=== PATIENT | female | born 1970 | race Caucasian/White ===

== ENCOUNTER 2017-12-04 15:49 | Outpatient (CLI) | payer BC, SELFPAY ==
[2017-12-04 17:37] LABS: TSH (W/Ref FT4) 0.71 uIU/mL (0.358-3.74)
== END 2017-12-04 16:09 ==
PROVIDERS: PCP Emergency Medicine; Visit Provider Nurse Practitioner Family
DX: E03.9 Hypothyroidism, unspecified (principal)
CPT/HCPCS: 36415; 84443

== ENCOUNTER 2018-03-04 08:48 | Outpatient (CLI) | payer BC, SELFPAY ==
[2018-03-04 10:32] LABS: TSH 1.09 uIU/mL (0.358-3.74)
== END 2018-03-04 09:08 ==
PROVIDERS: PCP Emergency Medicine; Visit Provider Emergency Medicine
DX: E03.9 Hypothyroidism, unspecified (principal)
CPT/HCPCS: 36415; 84443

== ENCOUNTER 2018-05-01 07:29 | Emergency (ER) | payer BC, SELFPAY ==
[2018-05-01] VITALS (39 sets, daily range): BP systolic 86–123; BP diastolic 61–81; PULSE 78–94; RESP 9–33; TEMP 37.5; O2SAT 94–100
--- NOTE | 2018-05-01 08:17 | ED.GENADUL_ITS ---
Discharge Plan Disposition Patient Disposition: HOME Condition: Improving Discharge Details Chief Complaint: Chest Pain Clinical Impression: Dehydration, Bronchospasm Primary Care Provider: Marck Brody ED Provider: Toño Lockwood Home Meds and New Rx's Prescriptions: No Action azithromycin [Zithromax Z-Josep] 250 mg tablet See Rx Instructions PO .COMPLEX Qty: 6 RF: 0 albuterol sulfate 90 mcg/actuation HFA aerosol inhaler 2 puff IH Q4H PRN (Reason: shortness of breath) Qty: 18 RF: 8 calcium-vitamin D3-vitamin K 1 EACH tablet,chewable 2 ea PO DAILY RF: 0 chlorpheniramine maleate 4 MG tablet 4 mg PO PRNRF: 0 levothyroxine 100 mcg tablet 100 mcg PO DAILY Qty: 90 RF: 4 cevimeline [Evoxac] 30 MG capsule 30 mg PO TID RF: 0 Discharge Instructions Instructions: Dehydration (ED) Additional Instructions: 1. Drink plenty of fluids. 2. Continue all medications as prescribed. 3. Acetaminophen 1000mg every 4 hours (up to 5 time a day) and/or ibuprofen 6 00mg every 6 hours as needed for fever or pain. 4. Decadron as prescribed once a day starting tomorrow morning. 5. Albuterol 2-4 puffs every 4 hours as needed for wheezing/difficulty breathing. Return to the Emergency Department (ED) if your condition worsens, does not improve as expected, or for ANY other concerns. Specifically, return if you have new or uncontrolled pain, worsening fever, difficulty breathing, vomiting, or are unable to drink fluids. Referrals: Marck Brody, [Primary Care Provider] - Medical Decision Making <Toño Lockwood MD - Last Filed: 05/01/18 10:38> 47-year-old with a history of tongue cancer and hypothyroid presents with profound weakness, chest tightness, and mild dyspnea associate with a recent upper respiratory infection. Symptoms began approximately 1 week ago and had improved after starting azithromycin 5 days ago. However, this morning felt bilateral leg weakness, generally lightheaded, and the chest tightness/dyspnea which was refractory to 2 puffs of albuterol x2. Of hypotension (80s/50s) dry mucosa and upper airway stridor/hoarseness on evaluation. Otherwise nonfocal exam. EKG nondiagnostic. Bedside cardiac/thoracic ultrasound negative for evidence of pericardial effusion/cardiac function or an acute pulmonary process. Labs essentially normal except for an elevated TSH with normal free T4. Clinically improved after receiving IV crystalloid, IV Decadron, 1 g of IV magnesium, and an albuterol/ipratropium nebulizer. Reviewed case with her PCP, Dr. Brody, who recommended no change in her current thyroid replacement. Discharged home with Decadron and a plan for aggressive oral hydration, albuterol as needed, and 2 days of Decadron. She will follow-up with her PCP or return here as needed for worsening symptoms. Pt evaluated immediately prior to discharge with improved symptoms, normal vital signs, and tolerating PO. The patient feels appropriate for discharge home. Discussed clinical/diagnostic findings. Discharged with a clear plan for outpatient follow up. Given usual and customary return instructions prior to discharge. Imaging Data Radiologic Study: Attestation: I personally reviewed and interpreted this imaging study as follows: Imaging: Ultrasound (Limited bedside thoracic/cardiac ultrasound) My impression: Limited cardiac/bedside Ultrasound. Findings include parasternal long axis and apical four-chamber views with no pericardial effusion, RV strain, or decreased LVEF. Posterior thoracic views with no evidence of focal consolidation, interstitial syndrome, or pleural effusion. images obtained, reviewed, and interpreted independently by myself. Images saved on ultrasound system for review. Lab Data Lab results reviewed: Yes I reviewed the patient's lab results. Lab results narrative: Normal basic metabolic panel. TSH 5.9. Free T4 1.18 ECG Data Attestation: I personally reviewed and interpreted this ECG (s) as follows: Prior ECG tracings: available for review Interpretation: NSR 90 bpm. Normal axis and intervals. No acute ST changes. Interpreted independently previously by myself. 47-year-old woman with a history of hypothyroidism and tongue cancer. She is status post neck, maxillofacial, and tongue surgery. Presents with chest tightness and generalized weakness. Describes having a viral syndrome 1 week ago and follow with her PCP last Sunday. She reports being diagnosed with dehydration. Although her lung exam was reportedly normal, she was started on azithromycin. She describes mild subjective improvement through this weekend. However, yesterday evening and this morning she felt significantly weaker and this morning felt unable to stand because of weakness in her legs. She also has noted increased chest tightness and dyspnea. She used 2 puffs of albuterol at 0400 and then prior to arrival with minimal improvement in her subjective. Denies subjective fever/chills, global exanthem, lower extremity edema. She has had subjective palpitations although she notes that her resting heart rate is typically in the 80s-90s. She denies abdominal pain, change in bowel habits melena/hematochezia. She had no subjective urinary symptoms. HPI <Toño Lockwood MD - Last Filed: 05/01/18 10:38> General Date/Time Provider Initiated Documentation: 05/01/18 08:17 . Related Data Home Medications Medication Instructions Recorded Confirmed cevimeline [Evoxac] 30 mg PO TID 02/01/13 04/24/18 calcium-vitamin D3-vitamin K 2 ea PO DAILY tab.chew 04/14/14 04/24/18 chlorpheniramine maleate 4 mg PO PRN 09/24/17 04/24/18 levothyroxine 100 mcg tablet 100 mcg PO DAILY #90 tab-cap 03/05/18 04/24/18 albuterol sulfate HFA 90 2 puff IH Q4H PRN #18 gm 04/24/18 04/24/18 mcg/actuation aerosol inhaler azithromycin 250 mg tablet See Rx Instructions PO .COMPLEX #6 04/24/18 04/24/18 tab Previous Rx's Medication Instructions Recorded levothyroxine 100 mcg tablet 100 mcg PO DAILY #90 tab-cap 03/05/18 albuterol sulfate HFA 90 2 puff IH Q4H PRN #18 gm 04/24/18 mcg/actuation aerosol inhaler azithromycin 250 mg tablet See Rx Instructions PO .COMPLEX #6 04/24/18 tab Allergies Allergy/AdvReac Type Severity Reaction Status Date / Time amoxicillin Allergy Intermediate itchy Verified 04/24/18 09:06 Penicillins Allergy Intermediate itchy Verified 04/24/18 09:06 General Stated Complaint: Chest Pain NORA: 3 47-year-old woman with a history of hypothyroidism and tongue cancer. She is status post neck, maxillofacial, and tongue surgery. Presents with chest tightness and generalized weakness. Describes having a viral syndrome 1 week ago and follow with her PCP last Sunday. She reports being diagnosed with dehydration. Although her lung exam was reportedly normal, she was started on azithromycin. She describes mild subjective improvement through this weekend. However, yesterday evening and this morning she felt significantly weaker and this morning felt unable to stand because of weakness in her legs. She also has noted increased chest tightness and dyspnea. She used 2 puffs of albuterol at 0400 and then prior to arrival with minimal improvement in her subjective. Denies subjective fever/chills, global exanthem, lower extremity edema. She has had subjective palpitations although she notes that her resting heart rate is typically in the 80s-90s. She denies abdominal pain, change in bowel habits melena/hematochezia. She had no subjective urinary symptoms. Review of Systems <Toño Lockwood MD - Last Filed: 05/01/18 10:38> Review of Systems All systems are reviewed and are unremarkable except as noted in HPI and below: CONSTITUTIONAL: no fevers/chills or change in appetite; new weakness/difficulty standing EYES: no change in vision HEENT: chronic difficulty swallowing; no neck pain CARDIOVASCULAR: Mild chest tightness and palpitations, no leg swelling or diaphoresis RESPIRATORY: no cough, mild dyspnea and stridor GASTROINTESTINAL: no abdominal pain, melena, nausea/emesis GENITOURINARY: no dysuria, flank pain, MUSCULOSKELETAL: no pack pain, myalgias, arthralgias INTEGUMENTARY: no rash, no wounds NEUROLOGIC: no headache, focal weakness, difficulty with speech, numbness PSYCHIATRIC: no confusion, no anciety HEME: no easy bruising or bleeding ALLERGIC: no urticaria PFSH <Toño Lockwood MD - Last Filed: 05/01/18 10:38> Surgical History DISSECTION, NECK MAXILLOFACIAL TONGUE RESECTION Family History Mother Essential hypertension Hyperlipidemia Father No problems noted. 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 GENERAL: alert, active, no acute distress, well -hydrated, well-nourished HEENT: atraumatic/normocephalic, PERRLA, EOMI, conjunctiva clear, external ea rs/canals normal, nasal mucosa normal NECK: Chronic changes associated with previous neck resection supple, full range of motion CARDIOVASCULAR: RRR, no murmurs, nl pulses, no edema PULMONARY: nl effort, no audible wheezing, mild stridor, no focal deficit. no chest wall tenderness ABDOMEN: soft, non-tender, non-distended, no mass, no organomegaly EXTREMITY: normal muscle tone, all joints with FROM, no deformity or tenderness NUERO: gross motor exam normal, normal stance and gait, PSYCH: alert and oriented, SKIN: no exanthem Course <Toño Lockwood MD - Last Filed: 05/01/18 10:38> Vital Signs Temperature 99.5 F 05/01/18 07:35 Pulse 94 H 05/01/18 07:35 Respiratory Rate 18 05/01/18 07:35 Blood Pressure 115/81 05/01/18 07:35 Pulse Oximetry 94 L 05/01/18 07:35 Temperature 99.5 F 05/01/18 07:35 Temperature Source Temporal Artery Scan 05/01/18 07:35 Pulse 94 H 05/01/18 07:35 Respiratory Rate 18 05/01/18 08:10 Respiratory Effort 05/01/18 08:10 Respiratory Depth Normal 05/01/18 08:10 Blood Pressure 115/81 05/01/18 07:35 Blood Pressure Position Sitting 05/01/18 07:35 Pulse Oximetry 94 L 05/01/18 07:35 Oxygen Delivery Method Room Air 05/01/18 07:35 Oxygen Flow Rate 0 05/01/18 07:35
[2018-05-01] MEDS: Normal Saline 1,000 ML 1000 ML IV (08:19)
[2018-05-01] MEDS: Albuterol/Ipratropium 3 ML UPD VIAL UPD (08:47)
[2018-05-01] MEDS: Normal Saline Flush 10 ML SYR IVP (08:48)
[2018-05-01 09:14] LABS: ALT 15 U/L (12-78); AST 17 U/L (15-37); Albumin 3.8 g/dL (3.4-5.0); Alkaline Phosphatase 61 U/L (46-116); Anion Gap 10.4 mmol/L (3-11); BUN 5 mg/dL (7-18); Bilirubin, Total 0.5 mg/dL (0.2-1.0); CO2 29.6 mmol/L (21.0-32.0); CREATININE 0.83 mg/dL (0.55-1.02); Calcium 9.8 mg/dL (8.5-10.1); Chloride 102 mmol/L (98-107); Glucose 93 mg/dL (70-100); Potassium 3.5 mmol/L (3.5-5.1); Sodium 142 mmol/L (136-145); TSH (W/Ref FT4) 5.97 uIU/mL (0.358-3.74); Total Protein 8.7 g/dL (6.4-8.2)
[2018-05-01] MEDS: MAGNESIUM SULFATE 1 GM/100 ML BAG (09:19)
[2018-05-01 09:30] LABS: FREE T4 1.18 ng/dL (0.76-1.46)
[2018-05-01] MEDS: Dexamethasone 10 MG/ML VIAL IVP (09:32)
[2018-05-01] MEDS: Dexamethasone 10 MG/ML VIAL 16 MG IVP (11:14)
[2018-05-01] MEDS: Albuterol HFA 8 GM 60 PUFF INH IH (11:14)
== END 2018-05-01 11:33 | disposition home or self-care (01) ==
PROVIDERS: Emergency Provider Emergency Medicine; PCP Emergency Medicine
DX: E86.0 Dehydration (principal); J98.01 Acute bronchospasm
CPT/HCPCS: 80053; 93005; 94640; 96361; 96374; 96376; 99285; 84439; 84443; 93010; J1100; J3475; J7620

== ENCOUNTER 2019-02-14 07:35 | Outpatient (CLI) | payer BC, SELFPAY ==
[2019-02-14 12:20] LABS: ALT 15 U/L (14-59); AST 18 U/L (15-37); Albumin 3.7 g/dL (3.4-5.0); Alkaline Phosphatase 53 U/L (46-116); Anion Gap 9.7 mmol/L (3-11); BUN 5 mg/dL (7-18); Bilirubin, Total 0.5 mg/dL (0.2-1.0); CO2 24.3 mmol/L (21.0-32.0); CREATININE 0.86 mg/dL (0.55-1.02); Calcium 8.9 mg/dL (8.5-10.1); Chloride 104 mmol/L (98-107); FREE T4 1.25 ng/dL (0.76-1.46); Glucose 94 mg/dL (74-106); Hemoglobin A1C 5.5 % (4.5-6.2); Sodium 138 mmol/L (136-145); TSH 0.43 uIU/mL (0.36-3.74); Total Protein 6.9 g/dL (6.4-8.2)
[2019-02-14 12:33] LABS: Calculated LDL 131 mg/dL; Cholesterol 221 mg/dL (<200); HDL Cholesterol 75 mg/dL (40-60); Triglyceride 79 mg/dL (<150)
== END 2019-02-14 07:55 ==
PROVIDERS: PCP Emergency Medicine; Visit Provider Nurse Practitioner Family
DX: E03.9 Hypothyroidism, unspecified (principal)
CPT/HCPCS: 36415; 80053; 80061; 83036; 84439; 84443

== ENCOUNTER 2019-05-13 01:58 | Outpatient (CLI) | payer BC, SELFPAY ==
[2019-05-13] MEDS: Barium Sulfate 60% W/V 355 ML BTL PO (09:47)
--- NOTE | 2019-05-13 09:47 | DI.RAD_ITS ---
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 COMPARISON: CHEST 2 VIEWS PA,LAT from 06/10/2013 FINDINGS: Preliminary films of the neck and chest show post surgical changes of prevertebral cervical soft tiss ues with mild smooth increase in pharyngo vertebral distance, multiple vascular clips are present. T he patient has reportedly had prior surgical procedure and radiation therapy for oral carcinoma . Barium was ingested and shows decreased motility of the mami pharynx with no gross obstruction. No ir regular mucosal lesion seen in the oropharynx or esophagus. No evidence of esophageal obstruction. Tiny quantity of barium was aspirated into the trachea, clearly visible only on one view. Fluoro time 12 sec IMPRESSION: Decreased motility of the oropharynx/larynx on deglutition. No gross structural lesion or mucosal le mae identified. Unremarkable appearance of the esophagus. Minimal tracheal aspiration noted.
== END 2019-05-13 02:18 ==
PROVIDERS: PCP Emergency Medicine; Visit Provider Otolaryngology
DX: R13.12 Dysphagia, oropharyngeal phase (principal); Z92.3 Personal history of irradiation; Z85.810 Personal history of malignant neoplasm of tongue
CPT/HCPCS: 74221

== ENCOUNTER 2019-10-02 02:30 | Outpatient (CLI) | payer BC, SELFPAY ==
[2019-10-02 15:24] LABS: TSH 0.04 uIU/mL (0.36-3.74)
== END 2019-10-02 02:50 ==
PROVIDERS: PCP Emergency Medicine; Visit Provider Emergency Medicine
DX: E03.9 Hypothyroidism, unspecified (principal)
CPT/HCPCS: 36415; 84443

== ENCOUNTER 2019-10-03 03:52 | Outpatient (CLI) | payer BC, SELFPAY ==
--- NOTE | 2019-10-03 08:00 | DI.CT_ITS ---
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 The patient has reportedly had radiation therapy oral cancer. Smooth soft tissue deformity of the oropharynx noted. No gross abscess in the oral or laryngeal ada on. No perimandibular abscess. There is significant bone loss with a patchy irregular pattern extending through the left mandibular body across the midline into the anterior aspect of the right mandibular body. The findings are nons pecific and may represent post radiation necrosis. Osteomyelitis cannot be excluded on the basis of this examination. However the lack of obvious surrounding soft tissue edema or enhancement would arg ue against an infectious process. The maxilla appears essentially intact. Note is made of chronic degenerative changes of the right te mporomandibular joint. No gross cervical adenopathy seen. Visualized brain is unremarkable. Orbital and temporal bone structures appear intact. 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
[2019-10-03] MEDS: Omnipaque 350 MG/ML 100 ML BTL IJ (08:32)
== END 2019-10-03 04:12 ==
PROVIDERS: PCP Emergency Medicine; Visit Provider Otolaryngology
DX: M27.2 Inflammatory conditions of jaws (principal); Z92.3 Personal history of irradiation
CPT/HCPCS: 70488; J3490

== ENCOUNTER 2019-10-24 03:43 | Outpatient (CLI) | payer BC, SELFPAY ==
--- NOTE | 2019-10-24 | DI.US_ITS ---
EXAM: US CAROTID CLINICAL HISTORY: CAROTID ARTERY CALCIFICATION, I65.29,F/U FINDINGS ON CT TECHNIQUE: Ultrasound performed using standard protocol. COMPARISON: No exams were available for comparison FINDINGS: Bilateral duplex carotid ultrasound was performed. There is bilateral antegrade vertebral flow. Tariq w velocities in the common, internal, and external carotid arteries are within normal limits. Minima l visible atheromatous plaque is present at the carotid bifurcations bilaterally. IMPRESSION: No evidence of a hemodynamically significant carotid stenosis. DATA REPOSITORY:
== END 2019-10-24 04:03 ==
PROVIDERS: PCP Emergency Medicine; Visit Provider Dentist
DX: I65.23 Occlusion and stenosis of bilateral carotid arteries
CPT/HCPCS: 93880

== ENCOUNTER 2019-11-07 04:27 | Outpatient (CLI) | payer BC, SELFPAY ==
--- NOTE | 2019-11-07 07:15 | DI.MAMMO_ITS ---
EXAM: MG MAMMO SCREENING CLINICAL HISTORY: screening,Z12.39 TECHNIQUE: Mammograms were interpreted according to the usual protocol including computer analysis w [employer] CAD system, tomosynthesis and C-view imaging. COMPARISON: FINDINGS: The breasts are heterogeneously dense. No mass or clumped microcalcification is identified either br east. The current examination is compared with previous examinations including April 2018 and the re has been no gross interval change in appearance in comparison with the previous studies. IMPRESSION: No specific evidence of malignancy at this time. Routine screening examinations are suggested at ye avelina intervals due to the family history of breast carcinoma. BI-RADS Category 1 - Negative Breast Density - Category C - Heterogeneously dense
== END 2019-11-07 04:47 ==
PROVIDERS: PCP Emergency Medicine; Visit Provider Emergency Medicine
DX: Z12.31 Encounter for screening mammogram for malignant neoplasm of breast (principal); R92.2 Inconclusive mammogram
CPT/HCPCS: 77063; 77067

== ENCOUNTER 2019-12-09 01:48 | Outpatient (CLI) | payer BC, SELFPAY ==
[2019-12-09 16:55] LABS: TSH 0.29 uIU/mL (0.36-3.74)
== END 2019-12-09 02:08 ==
PROVIDERS: PCP Emergency Medicine; Visit Provider Emergency Medicine
DX: E03.9 Hypothyroidism, unspecified (principal)
CPT/HCPCS: 36415; 84443

== ENCOUNTER 2019-12-26 10:54 | Outpatient (REF) | payer BC, SELFPAY ==
--- NOTE | 2019-12-26 08:50 | PAPFT_PTH ---
PATIENT: Theresa Hollis LOC: [facility] U#:[id number] AGE/SX: 49/F ROOM: RE12/26/[address]: Marck Brody DO : 1970 BED: DIS: 12/26/2019 SPEC #: [id number] RECD: 12/26/19 13:04 STATUS: ELAINE REHernan #: [id number] SUSAN: 12/26/19 08:[address]: Marck Brody DEPT: [facility] Cytology RECD BY: Joyce Streeter Tissues: 1 - CX/ENDOCX FOR PAP SMEARS Procedures: PAP THIN PREP/UVM Screening HPV DNA PROBE Comments: [id number]
== END 2019-12-26 11:14 ==
LOC: LBN 10:54
PROVIDERS: PCP Emergency Medicine; Visit Provider Emergency Medicine
DX: Z12.4 Encounter for screening for malignant neoplasm of cervix (principal); Z11.51 Encounter for screening for human papillomavirus (HPV)
CPT/HCPCS: 88142; 87624

== ENCOUNTER 2020-01-01 22:06 | Outpatient (REF) | payer BC, SELFPAY | END 2020-01-01 22:26 | LOC: LBN 22:06 | PROVIDERS: PCP Emergency Medicine; Visit Provider Physician Assistant | DX: L02.01 Cutaneous abscess of face (principal); K13.0 Diseases of lips | CPT/HCPCS: 87070; 87205 ==

== ENCOUNTER 2020-01-20 01:31 | Outpatient (CLI) | payer BC, SELFPAY ==
--- NOTE | 2020-01-20 | DI.CT_ITS ---
EXAM: CT FACIAL WO and 3D recon. CLINICAL HISTORY: H/O OSTEORADIONECROSIS,? FX. TECHNIQUE: Imaging Protocol: Axial computed tomography images with coronal and sagittal reformatted images were created and reviewed COMPARISON: CT CT FACIAL WO/W from 10/03/[address] CT [address] RECON ON CT WORKSTATION from 01/20/2020 FINDINGS: CT Face: Facial Bones: Since the prior examination, there is a lucency in the bone anterior to the molars fol lowing tooth removal. There has been removal of the right bicuspids. Patient has removed her her de ntures. There is again seen significant bone loss in the mandible which appears stable. No acute fr acture or dislocation. No new areas of low lysis or sclerosis. Sinuses and Mastoids: Unremarkable. Globes, extraocular muscles, optic nerves and retrobulbar fat: Normal. Upper aerodigestive tract: Normal. Mandible and bilateral temporomandibular joints: Please see the above discussion. Soft tissues: No focal fluid collection is seen to suggest an abscess. IMPRESSION: Overall no significant change in appearance of the mandible compared to the prior examination. Stabl e bone loss is seen in the mandible. Interval removal of right bicuspids. RADIATION DOSE DELIVERED: 319.18mGy.cm Total DLP 319.18mGy.cm Total DLP DATA REPOSITORY: All CT scans at this facility are submitted to the National Radiology Data Registry (NRDR) Dose Index Registry (DIR) with the [employer] (ACR). RADIATION OPTIMIZATION: All CT scans at this facility use at least one of these dose optimization te chniques: automated exposure control; mA and/or kV adjustment per patient size (includes targeted exa ms where dose is matched to clinical indication); or iterative reconstruction.
== END 2020-01-20 01:51 ==
PROVIDERS: PCP Emergency Medicine; Visit Provider Dentist
DX: M87.9 Osteonecrosis, unspecified (principal)
CPT/HCPCS: 76376; 70486

== ENCOUNTER 2020-02-04 01:58 | Outpatient (CLI) | payer BC, SELFPAY ==
[2020-02-04 17:35] LABS: TSH 7.75 uIU/mL (0.36-3.74)
== END 2020-02-04 02:18 ==
PROVIDERS: PCP Emergency Medicine; Visit Provider Emergency Medicine
DX: E03.9 Hypothyroidism, unspecified (principal)
CPT/HCPCS: 36415; 84443

== ENCOUNTER 2020-03-05 03:49 | Outpatient (CLI) | payer BC, SELFPAY ==
[2020-03-05 16:56] LABS: TSH 0.51 uIU/mL (0.36-3.74)
== END 2020-03-05 04:09 ==
PROVIDERS: PCP Emergency Medicine; Visit Provider Emergency Medicine
DX: E03.9 Hypothyroidism, unspecified (principal)
CPT/HCPCS: 36415; 84443

== ENCOUNTER 2020-04-21 21:05 | Outpatient (REF) | payer BC, SELFPAY | END 2020-04-21 21:06 | disposition home or self-care (01) | LOC: LBN 21:05 | PROVIDERS: PCP Emergency Medicine; Visit Provider Physician Assistant | DX: R07.0 Pain in throat (principal) | CPT/HCPCS: 87070 ==

== ENCOUNTER 2020-04-23 17:01 | Outpatient (REF) | payer BC, SELFPAY ==
[2020-04-26 16:24] LABS: COVID-19 RT-PCR UVMMC Result Negative (Negative)
== END 2020-04-23 17:02 | disposition home or self-care (01) ==
LOC: LBN 17:01
PROVIDERS: PCP Emergency Medicine; Visit Provider Nurse Practitioner Adult Health
DX: J02.9 Acute pharyngitis, unspecified (principal)
CPT/HCPCS: U0003

== ENCOUNTER 2020-05-26 04:02 | Outpatient (CLI) | payer BC, SELFPAY ==
[2020-05-26 17:43] LABS: TSH 1.93 uIU/mL (0.36-3.74)
== END 2020-05-26 04:03 | disposition home or self-care (01) ==
LOC: LBO 04:02
PROVIDERS: PCP Emergency Medicine; Visit Provider Emergency Medicine
DX: E03.9 Hypothyroidism, unspecified (principal)
CPT/HCPCS: 36415; 84443

== ENCOUNTER 2020-07-22 03:35 | Outpatient (CLI) | payer BC, SELFPAY | END 2020-07-22 03:36 | disposition home or self-care (01) | LOC: LBO 03:35 | PROVIDERS: PCP Emergency Medicine; Visit Provider Emergency Medicine | DX: E03.9 Hypothyroidism, unspecified (principal) | CPT/HCPCS: 36415; 84443 ==

== ENCOUNTER 2020-09-13 03:58 | Outpatient (CLI) | payer BC, SELFPAY ==
[2020-09-13 10:31] LABS: TSH 0.07 uIU/mL (0.36-3.74)
== END 2020-09-13 03:59 | disposition home or self-care (01) ==
LOC: LBO 03:58
PROVIDERS: PCP Emergency Medicine; Visit Provider Emergency Medicine
DX: E03.9 Hypothyroidism, unspecified (principal)
CPT/HCPCS: 36415; 84443

== ENCOUNTER 2020-12-28 03:49 | Outpatient (CLI) | payer BC, SELFPAY ==
[2020-12-28 16:51] LABS: TSH 0.35 uIU/mL (0.36-3.74)
== END 2020-12-28 03:50 | disposition home or self-care (01) ==
LOC: LBO 03:49
PROVIDERS: PCP Emergency Medicine; Visit Provider Internal Medicine Endocrinology, Diabetes & Metabolism
DX: E03.9 Hypothyroidism, unspecified (principal)
CPT/HCPCS: 36415; 84443

== ENCOUNTER 2021-02-23 02:04 | Outpatient (CLI) | payer BC, SELFPAY ==
[2021-02-23 17:34] LABS: TSH 1.92 uIU/mL (0.36-3.74)
== END 2021-02-23 02:05 | disposition home or self-care (01) ==
LOC: LBO 02:04
PROVIDERS: PCP Emergency Medicine; Visit Provider Internal Medicine Endocrinology, Diabetes & Metabolism
DX: E03.9 Hypothyroidism, unspecified (principal)
CPT/HCPCS: 36415; 84443

== ENCOUNTER 2021-03-07 16:56 | Emergency (ER) | payer BC, SELFPAY ==
[2021-03-07 17:00] VITALS: BP 128/83; PULSE 84; RESP 18; TEMP 36.8; O2SAT 98
--- NOTE | 2021-03-07 17:03 | ED.GENADUL_ITS ---
Discharge Plan Disposition Patient Disposition: HOME Condition: Improving Discharge Details Clinical Impression: Food impaction of esophagus Primary Care Provider: Marck Brody ED Provider: Alex Segundo Home Meds and New Rx's Prescriptions: Continued amoxicillin-pot clavulanate [Augmentin] 875-125 mg tablet 1 tab PO BID Qty: 14 RF: 0 levothyroxine [Synthroid] 100 mcg tablet 100 mcg PO DAILY Qty: 90 RF: 3 Hold Instructions: Home Medication placed on hold at Doctor's office Discharge Instructions Additional Instructions: It appears as though you have successively swallowed the food bolus that was stuck in your esophagus. Please watch for new or worsening symptoms and return to the ER for any concerns. Otherwise I recommend reaching out your primary care provider as needed for outpatient follow-up Medical Decision Making 50-year-old female presents with esophageal food bolus. Clinically she appears well, nontoxic, is managing her own secretions without difficulty. No evidence of respiratory compromise. She is otherwise asymptomatic. Plan is to trial EZ granules and reassess Patient was unable to tolerate the EZ granules, reports too much discomfort Obtained IV access, patient given 5 IV Valium and 3 IV glucagon. Will trial of water Upon reevaluation patient reports that she was able to pass the food bolus, is currently asymptomatic and requesting discharge. She is able to speak in full sentences, no evidence of respiratory compromise. Manages her own secretions without difficulty. Standard discharge and return precautions provided This documentation was generated using [employer] dictation system, please disregard any oddities of phrase or misspellings. Medical Records Medical records reviewed: Yes I reviewed the patient's medical records. HPI General Mode of arrival: EMS . Date/Time Provider Initiated Documentation: 03/07/21 17:01 . Limitations to Documentation: no limitations . Information obtained by: patient and EMS . HPI Narrative: This is a 50-year-old female, past medical history of tongue CA resulting in partial tongue and neck resection approximately 14 years ago presenting for a food bolus in her esophagus. She states that just prior to arrival she was eating a biscuit and ham, the food did not pass, causing her to briefly cough and choke. Now she states that she feels specific in the back of her throat and is unable to tolerate drinking any other water. She was asymptomatic until this episode. She states this has happened in the past but never required surgery. She denies any difficulty breathing, speaking other than her baseline partial tongue resection. Related Data Home Medications Medication Instructions Recorded Confirmed levothyroxine 100 mcg tablet 100 mcg PO DAILY #90 tab 02/06/20 03/07/21 amoxicillin 875 mg-potassium 1 tab PO BID #14 tab 07/03/20 03/07/21 clavulanate 125 mg tablet Previous Rx's Medication Instructions Recorded levothyroxine 100 mcg tablet 100 mcg PO DAILY #90 tab 02/06/20 amoxicillin 875 mg-potassium 1 tab PO BID #14 tab 07/03/20 clavulanate 125 mg tablet Allergies Allergy/AdvReac Type Severity Reaction Status Date / Time No Known Allergies Allergy Verified 03/07/21 17:04 General NORA: 3 Review of Systems Constitutional Constitutional: Denies headache(s) ENT Ears, Nose, Mouth, and Throat: Denies headache(s) and Denies neck pain Cardiovascular Cardiovascular: Denies chest pain and Denies dyspnea Respiratory Respiratory: Denies dyspnea Gastrointestinal Gastrointestinal: Denies abdominal pain, Denies nausea and Denies vomiting Musculoskeletal Musculoskeletal: Denies neck pain Neurologic Neurologic: Denies headache(s) PFSH All Active Problems Food impaction of esophagus (Acute) Carpal tunnel syndrome (Acute) Throat discomfort (Acute) Dental abscess (Acute) Neck muscle spasm (Acute) Cheilitis (Acute) Facial abscess (Acute) Hyperlipidemia (Chronic) Hypothyroidism (acquired) (Chronic) History of tongue cancer (Acute) SCC, s/p radiation, chemo, surgery Medical History Squamous cell carcinoma of tongue Surgical History History of radical neck surgery Family History Mother Essential hypertension Hyperlipidemia Father No problems noted. 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 Do you feel safe at home: Yes Do you feel safe in your relationship?: Yes Exam Const General: cooperative, healthy appearing, comfortable and no acute distress Orientation: alert and awake [facility] Head: normal to inspection, normocephalic and atraumatic Face and sinus: normal facial exam Mouth: oral mucosae normal and moist mucous membranes Throat: posterior oropharynx normal and other (Status post partial tongue resection, otherwise unremarkable) Eyes General: appearance normal, both eyes and all related structures Conjunctivae: conjunctivae normal Neck Neck: trachea midline and supple Other: Status post partial neck resection otherwise unremarkable Resp Effort & Inspection: normal respiratory effort and able to speak in complete sentences Auscultation: clear to auscultation bilaterally Other: No stridor Cardio Rate: regular rate Rhythm: regular rhythm GI Palpation: soft and nontender Skin General skin exam: no rashes or lesions noted Neuro General: patient alert, patient awake, moves all extremities and no focal motor deficits Sensory Exam: no sensory deficits noted Psych Appearance: grossly normal Mental Status: mental status grossly normal
[2021-03-07] MEDS: Simethicone/Sod Bicarb/Cit Ac, 4 gram PACKET 1 PACKET PO (17:21)
[2021-03-07] MEDS: Glucagon 1 MG VIAL 3 MG IVP (17:31)
[2021-03-07] MEDS: diazePAM 10 MG/2 ML SYR 5 MG IVP (17:31)
== END 2021-03-07 18:26 | disposition home or self-care (01) ==
PROVIDERS: Emergency Provider Physician Assistant; PCP Emergency Medicine
DX: T18.128A Food in esophagus causing other injury, initial encounter (principal); X58.XXXA Exposure to other specified factors, initial encounter
CPT/HCPCS: 96374; 96375; 99284; 99283; J1610; J3360

== ENCOUNTER 2021-04-27 01:39 | Outpatient (CLI) | payer BC, SELFPAY | END 2021-04-27 01:40 | disposition home or self-care (01) | LOC: LBO 01:40 | PROVIDERS: PCP Family Medicine; Visit Provider Internal Medicine Endocrinology, Diabetes & Metabolism | DX: E03.9 Hypothyroidism, unspecified (principal) | CPT/HCPCS: 36415; 84443 ==

== ENCOUNTER 2021-06-22 02:54 | Outpatient (CLI) | payer BC, SELFPAY ==
[2021-06-22 13:21] LABS: TSH 4.47 uIU/mL (0.36-3.74)
== END 2021-06-22 02:55 | disposition home or self-care (01) ==
LOC: LBO 02:54
PROVIDERS: PCP Family Medicine; Visit Provider Internal Medicine Endocrinology, Diabetes & Metabolism
DX: E03.9 Hypothyroidism, unspecified (principal)
CPT/HCPCS: 36415; 84443

== ENCOUNTER 2021-07-15 00:36 | Outpatient (CLI) | payer BC, SELFPAY ==
[2021-07-15] MEDS: Gadoterate meglumine 20 ML VIAL 8 ML IVP (09:19)
[2021-07-15] MEDS: Normal Saline Flush 10 ML SYR IVP (09:19)
--- NOTE | 2021-07-15 10:05 | DI.MRI_ITS ---
Exam(s) MR PELVIS WO/W EXAM: MR PELVIS WO/W CLINICAL HISTORY: ADNEXAL CYST, N94.9, HX SCC TONGUE, ADNEXAL MASS TECHNIQUE: Multiplanar multisequence MRI of Pelvis was performed. CONTRAST MATERIAL: IV Contrast: 8 mL of Dotarem contrast administered. COMPARISON: CT,PT NM PET CT STANDARD PLUS HEAD AND NECK from 02/07/2021 FINDINGS: The uterus is within normal limits in size. No evidence of fibroids. Endometrial stripe appears nor mal. There is a 2.8 cm cystic area with layering debris seen in the cervical region which could repr esent a large nabothian cyst. No suspicious enhancement. Ovaries are normal in size and appearance. 1.5 centimeter maximal dimension follicle right ovary. Physiologic amount fluid in the cul-de-sac. Bladder unremarkable. Degenerative disc changes lower lumbar spine. SI joints and hip joints unremarkable. IMPRESSION: No evidence of ovarian cyst or mass. Questioned adnexal cyst on prior PET CT corresponds to a cystic area in the cervix, likely a nabothian cyst. DATA REPOSITORY:
== END 2021-07-15 00:56 ==
PROVIDERS: PCP Nurse Practitioner; Visit Provider Obstetrics & Gynecology
DX: N94.89 Other specified conditions associated with female genital organs and menstrual cycle (principal); N88.8 Other specified noninflammatory disorders of cervix uteri; Z85.810 Personal history of malignant neoplasm of tongue
CPT/HCPCS: 72197

== ENCOUNTER 2021-08-05 15:29 | Outpatient (REF) | payer BC, SELFPAY | END 2021-08-05 15:30 | disposition home or self-care (01) | LOC: LBN 15:29 | PROVIDERS: PCP Nurse Practitioner; Visit Provider Physician Assistant | DX: H60.8X2 Other otitis externa, left ear | CPT/HCPCS: 87070; 87075; 87205 ==

== ENCOUNTER 2021-08-25 02:20 | Outpatient (CLI) | payer BC, SELFPAY ==
[2021-08-25 15:35] LABS: TSH 3.14 uIU/mL (0.36-3.74)
== END 2021-08-25 02:21 | disposition home or self-care (01) ==
LOC: LBO 02:20
PROVIDERS: PCP Nurse Practitioner; Visit Provider Internal Medicine Endocrinology, Diabetes & Metabolism
DX: E03.9 Hypothyroidism, unspecified (principal)
CPT/HCPCS: 36415; 84443

== ENCOUNTER 2021-10-13 03:30 | Outpatient (RCR) | payer BC, SELFPAY ==
--- NOTE | 2021-10-13 10:30 | HOLTER_ITS ---
APPROVED REPORT Conclusion This is a 48-hour Holter monitor ordered for an unspecified cardiac arrhythmia Predominant rhythm was sinus with an average heart rate of 74. Minimum was 53, maximum 162 There were very rare isolated atrial and ventricular ectopic beats There was no atrial fibrillation, no supraventricular tachycardia, no high-grade AV block, no pauses greater than 3 seconds There were no apparent patient symptoms
== END 2021-10-16 23:59 | disposition home or self-care (01) ==
LOC: RT 03:30
PROVIDERS: PCP Nurse Practitioner; Visit Provider Nurse Practitioner
DX: I49.9 Cardiac arrhythmia, unspecified (principal)
CPT/HCPCS: 93225; 93226

== ENCOUNTER 2021-10-25 03:25 | Outpatient (CLI) | payer BC, SELFPAY ==
[2021-10-25 08:28] LABS: TSH 2.79 uIU/mL (0.36-3.74)
== END 2021-10-25 03:26 | disposition home or self-care (01) ==
LOC: LBO 03:25
PROVIDERS: PCP Nurse Practitioner; Visit Provider Internal Medicine Endocrinology, Diabetes & Metabolism
DX: E03.9 Hypothyroidism, unspecified (principal)
CPT/HCPCS: 36415; 84443

== ENCOUNTER 2021-12-27 02:55 | Outpatient (CLI) | payer BC, SELFPAY ==
[2021-12-27 15:55] LABS: TSH 0.92 uIU/mL (0.36-3.74)
== END 2021-12-27 02:56 | disposition home or self-care (01) ==
LOC: LBO 02:55
PROVIDERS: PCP Nurse Practitioner; Visit Provider Internal Medicine Endocrinology, Diabetes & Metabolism
DX: E03.9 Hypothyroidism, unspecified (principal)
CPT/HCPCS: 36415; 84443

== ENCOUNTER 2022-02-26 11:14 | Emergency (ER) | payer BC, SELFPAY ==
[2022-02-26] VITALS (8 sets, daily range): BP systolic 113–152; BP diastolic 70–86; PULSE 77–116; RESP 17–19; TEMP 37.4; O2SAT 98
--- NOTE | 2022-02-26 11:00 | RT.EKG_ITS ---
APPROVED REPORT Exam: Resting ECG Reason for Exam: sob Patient Location: E HR:112 bpm ECG Measurements Heart Rate 112 AXIS SC 131 P 85 QRSd 65 QRS -12 QT 306 T 29 QTc 418 Conclusion Sinus tachycardia...rate> 99
--- NOTE | 2022-02-26 11:15 | DI.CT_ITS ---
Exam(s) CT CHEST PE CTA EXAM: CT CHEST PE CTA CLINICAL HISTORY: dyspnea, tachycardia. TECHNIQUE: Imaging Protocol: Axial CT angiography was performed with multi-slice acquisition and mu lti-planar and/or 3D reconstructions. CONTRAST MATERIAL: Intravenous: Omnipaque 350 contrast volume:80 mL COMPARISON: CR CHEST 2 VIEWS PA,LAT from 06/10/2013 FINDINGS: Tracheobronchial tree: Patent where visualized. Pulmonary parenchyma: No consolidation or dominant measurable mass. No architectural distortion. Ther e are several ground-glass tiny opacities in the left lower lobe. Pulmonary Arteries: No evidence of filling defect to suggest pulmonary emboli. Mediastinum and Bernice: No dominant adenopathy or fluid collection. The esophagus is unremarkable. Visualized thyroid gland: Not visualized. Pleura: No effusion or pneumothorax. Heart: The heart is not dilated. No coronary artery calcifications are seen. No pericardial effusion. Aorta: Thoracic aorta non-dilated. No evidence of dissection. Upper abdomen: Unremarkable. Soft tissues: Unremarkable. Bones: Within normal limits for the patient's age. IMPRESSION: 1. No evidence of pulmonary embolism, thoracic aortic dissection or aneurysm. 2. Minimal atelectasis or pneumonitis in the left lower lobe. RADIATION DOSE DELIVERED: 240.14mGy.cm Total DLP DATA REPOSITORY: All CT scans at this facility are submitted to the National Radiology Data Registry (NRDR) Dose Index Registry (DIR) with the [employer] (ACR). RADIATION OPTIMIZATION: All CT scans at this facility use at least one of these dose optimization te chniques: automated exposure control; mA and/or kV adjustment per patient size (includes targeted exa ms where dose is matched to clinical indication); or iterative reconstruction.
--- NOTE | 2022-02-26 11:30 | ED.GENADUL_ITS ---
Discharge Plan Disposition Patient Disposition: Home Condition: Stable Discharge Details Clinical Impression: Shortness of breath Primary Care Provider: Tita Méndez ED Provider: Rohit Aguilar Home Meds and New Rx's Prescriptions: Continued fluconazole [Diflucan] 100 mg tablet 100 mg PO DAILY Qty: 21 0RF levothyroxine [Synthroid] 100 mcg tablet 75 mcg PO DAILY Hold Instructions: Home Medication placed on hold at Doctor's office nystatin 100,000 unit/mL suspension 5 ml PO QID Rx Instructions: swish and swallow ibuprofen 100 mg/5 mL suspension 200 mg PO Q6H No Action amoxicillin-pot clavulanate [Augmentin] 875-125 mg tablet 1 tab PO BID Qty: 14 0RF Rx Instructions: Take with meal. Take 1 pill every 12 hours x 7days Discharge Instructions Instructions: Dyspnea (ED) Additional Instructions: your blood work and cat scan did not show concerning findings at this time follow up with your primary care provider within 1 week if you feel more ill, have worsening trouble breathing or severe pain return to the emergency department Medical Decision Making 51 yo female with hx of prior cancer of her tongue, who comes in with ems with complaints of chest congestion and decrease po intake since yesterday. She denies any chest pressure, has had a cough, no abdominal pain or n/v. She states she feels her sinuses are full as well. She arrives stable speaking in full sentences in no distress. She has clear lung sounds, no murmurs, no leg swelling, no calf tenderness. She has no facial swelling or jvd. She is noted to be tachycardic to the 110's in sinus on arrival. Unclear etiology for her shortness of breath she had, and chest congestion. Will obtain cbc, cmp, fluvid and though she has no chest pain obtain a troponin. Given her cancer history and tachycardia will also obtain cta of the chest to evaluate for pe. labs and imaging unremarkable, has atelectasis vs pneumonitis in left lower lobe, no infiltrate, no pe. Pt's vitals stable and she feels well. She does state the duoneb she got from ems did help, will provide an inhaler despite her lungs being clear still on auscultation. She is stable for d/c, advised to f/u with pcp, return precautions given Differential Diagnosis Differential Diagnosis: covid, pneumonia, pe, flu Medical Records Medical records reviewed: Yes I reviewed the patient's medical records. Imaging Data Radiologic Study: Attestation: I personally reviewed and interpreted this imaging study as follows: Imaging: CT Scan Radiologist's impression: Minimal atelectasis or pneumonitis in the left lower lobe. No evidence of pulmonary emboli. Lab Data Lab results reviewed: Yes I reviewed the patient's lab results. ECG Data Attestation: I personally reviewed and interpreted this ECG (s) as follows: Prior ECG tracings: not available for review Interpretation: sinus tachycardia rate of112, pr 131, no acute st t wave ischemic findings Sign Out No HPI General Mode of arrival: EMS . Date/Time Provider Initiated Documentation: 02/26/22 11:20 . Limitations to Documentation: no limitations . Information obtained by: patient . History of Present Illness 51 year old F presents to the emergency department with the chief complaint of chest congestion, described as moderate, Patient started experiencing this day(s) (1) and it has been constant. No relieving factors improve symptom(s), No exacerbating factors reported . Patient notes denies chest pain and fever/chills. Patient did receive the following treatments prior to arrival, none Related Data Home Medications Medication Instructions Recorded Confirmed amoxicillin 875 mg-potassium 1 tab PO BID #14 tabs 07/03/20 02/26/22 clavulanate 125 mg tablet (Augmentin) levothyroxine 100 mcg tablet 75 mcg PO DAILY 05/09/21 02/26/22 (Synthroid) ibuprofen 100 mg/5 mL oral 200 mg PO Q6H 12/30/21 02/26/22 suspension nystatin 100,000 unit/mL oral 5 ml PO QID 12/30/21 02/26/22 suspension fluconazole 100 mg tablet 100 mg PO DAILY #21 tabs 01/18/22 02/26/22 (Diflucan) Previous Rx's Medication Instructions Recorded amoxicillin 875 mg-potassium 1 tab PO BID #14 tabs 07/03/20 clavulanate 125 mg tablet (Augmentin) fluconazole 100 mg tablet 100 mg PO DAILY #21 tabs 01/18/22 (Diflucan) Allergies Allergy/AdvReac Type Severity Reaction Status Date / Time apple Allergy Itching Verified 02/26/22 11:19 birch Allergy Wheezing Verified 02/26/22 11:19 peanut Allergy Itching Verified 02/26/22 11:19 benzocaine AdvReac irritant Verified 02/26/22 11:19 General Stated Complaint: RespSymp NORA: 3 Review of Systems All systems reviewed & are unremarkable except as noted in HPI and below Constitutional Constitutional: Denies chills, Denies fever(s) and Denies weakness Cardiovascular Cardiovascular: Denies chest pain Gastrointestinal Gastrointestinal: Denies abdominal pain, Denies nausea and Denies vomiting Genitourinary Genitourinary: Denies dysuria Musculoskeletal Musculoskeletal: Denies joint swelling Integumentary/Breasts Skin/Breast: Denies rash Neurologic Neurologic: Denies weakness PFS All Active Problems (Updated 02/26/22 @ 12:59 by Rohit Aguilar MD) Shortness of breath (Acute) Tinnitus, bilateral (Acute) Sensorineural hearing loss, bilateral (Acute) Tongue sore (Acute) Impacted cerumen, bilateral (Acute) Irregular heart beat (Acute) Restless leg syndrome (Acute) Carpal tunnel syndrome (Acute) Dental abscess (Acute) 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 Do you feel safe at home: Yes Do you feel safe in your relationship?: Yes Exam Const General: no acute distress Orientation: alert [facility] Head: normal to inspection Ears: external ears normal General nose exam: external nose normal Mouth: moist mucous membranes Eyes General: appearance normal, both eyes and all related structures Neck Neck: normal visual inspection Resp Effort & Inspection: normal respiratory effort, able to speak in complete sentences and no audible wheezes Auscultation: clear to auscultation bilaterally Cardio Jugular venous pressure: no JVD Rate: regular rate Heart Sounds: no murmurs Skin General skin exam: no rashes or lesions noted Neuro General: patient alert and patient oriented x3 Extrem General: normal to inspection Psych Mental Status: mental status grossly normal Course Vital Signs Vital signs: Vital Signs Temperature 37.4 C 02/26/22 11:16 Pulse 116 H 02/26/22 11:16 Respiratory Rate 18 02/26/22 11:16 Blood Pressure 152/75 H 02/26/22 11:16 Pulse Oximetry 98 02/26/22 11:16 Temperature 37.4 C 02/26/22 11:16 Temperature Source Temporal Artery Scan 02/26/22 11:16 Pulse 116 H 02/26/22 11:16 Respiratory Rate 18 02/26/22 11:16 Respiratory Effort Non-Labored 02/26/22 11:20 Blood Pressure 152/75 H 02/26/22 11:16 Blood Pressure Position Sitting 02/26/22 11:16 Pulse Oximetry 98 02/26/22 11:16 Oxygen Delivery Method Room Air 02/26/22 11:16 Oxygen Flow Rate 0 02/26/22 11:16
[2022-02-26] MEDS: Normal Saline 1,000 ML 1000 ML IV (11:48)
[2022-02-26 11:57] LABS: Abs Immature Grans 0.03 10^3/uL (0.0-0.06); Absolute Basophil Count 0.05 10^3/uL (0.0-0.2); Absolute Eosinophil Count 0.23 10^3/uL (0.0-0.7); Absolute Lymphocyte Count 0.75 10^3/uL (1.2-3.4); Absolute Monocyte Count 0.35 10^3/uL (0.1-0.8); Absolute Neutrophil Count 5.45 10^3/uL (1.2-6.7); Basophils % 0.7; Eosinophils % 3.4; HCT 42.9 % (36.0-46.0); HGB 14.8 g/dL (11.2-15.7); Immature Grans % 0.4; Lymphocytes % 10.9; MCH 32.7 pg (27.0-33.0); MCHC 34.5 % (32.0-36.0); MCV 95 fL (80-95); MPV 8.6 fL (8.0-11.0); Monocytes % 5.1; Neutrophils % 79.5; Platelet Count 311 10^3/uL (130-400); RBC 4.53 10^6/uL (3.93-5.22); RDW 11.4 % (11.7-14.6); RDW-SD 39.9 fL; WBC 6.86 10^3/uL (4.4-10.8)
[2022-02-26] MEDS: Omnipaque 350 MG/ML 100 ML BTL IJ (12:14)
[2022-02-26] MEDS: Normal Saline - Diluent 50 ML VIAL IV (12:15)
[2022-02-26 12:22] LABS: ALT 20 U/L (14-59); AST 21 U/L (15-37); Albumin 4.1 g/dL (3.4-5.0); Alkaline Phosphatase 60 U/L (46-116); Anion Gap 9.5 mmol/L (3-11); BUN 5 mg/dL (7-18); Bilirubin, Total 0.7 mg/dL (0.2-1.0); CO2 27.5 mmol/L (21.0-32.0); CREATININE 0.9 mg/dL (0.55-1.02); Calcium 9.1 mg/dL (8.5-10.1); Chloride 100 mmol/L (98-107); Estimated GFR 77.88 (mL/min/1.73m2); Glucose 114 mg/dL (74-106); Magnesium 2.3 mg/dL (1.8-2.4); NT-proBNP 43 pg/mL (<300); Potassium 3.4 mmol/L (3.5-5.1); Sodium 137 mmol/L (136-145); TSH (W/Ref FT4) 1.69 uIU/mL (0.36-3.74); Total Protein 7.6 g/dL (6.4-8.2); Troponin I < 50 ng/L (<or=60)
[2022-02-26 12:38] LABS: COVID-19 PCR Negative (Negative); Influenza A PCR Negative (Negative); Influenza B PCR Negative (Negative); RSV PCR Negative (Negative)
[2022-02-26 12:39] LABS: Source Nasopharynx
--- NOTE | 2022-02-26 12:40 | DI.VRAD_ITS ---
PROCEDURE INFORMATION: Exam: CTA Chest With Contrast Exam date and time: 02/26/2022 12:01 PM Age: 51 years old Clinical indication: Other: Dyspnea, tachycardia TECHNIQUE: Imaging protocol: Computed tomographic angiography of the chest with contrast. 3D rendering (Not supervised by radiologist): MIP and/or 3D reconstructed images were created by the technologist. Radiation optimization: All CT scans at this facility use at least one of these dose optimization techniques: automated exposure control; mA and/or kV adjustment per patient size (includes targeted exams where dose is matched to clinical indication); or iterative reconstruction. Contrast material: OMNIPAQUE 350; Contrast volume: 80 ml; Contrast route: INTRAVENOUS (IV); COMPARISON: OT NM PET CT STANDARD PLUS HEAD AND NECK 02/07/2021 7:37 AM FINDINGS: Pulmonary arteries: Normal. No pulmonary emboli. Aorta: Unremarkable. No aortic aneurysm. No aortic dissection. Lungs: Several tiny areas of ground-glass density noted in the left lower lobe. Pleural spaces: Unremarkable. No pneumothorax. No pleural effusion. Heart: Unremarkable. No cardiomegaly. No pericardial effusion. Lymph nodes: Unremarkable. No enlarged lymph nodes. Bones/joints: Unremarkable. No acute fracture. Soft tissues: Unremarkable. IMPRESSION: Minimal atelectasis or pneumonitis in the left lower lobe. No evidence of pulmonary emboli. Dictated and Authenticated by: Loly Snell MD. Ordering:SUNNY Bee MD
[2022-02-26] MEDS: Albuterol HFA 8 GM 60 PUFF INH IH (13:06)
[2022-02-26] MEDS: Inhaler, Assist Device 1 EACH MC (13:07)
== END 2022-02-26 13:12 | disposition home or self-care (01) ==
PROVIDERS: Emergency Provider Emergency Medicine; PCP Nurse Practitioner Family
DX: R06.02 Shortness of breath (principal); Z85.810 Personal history of malignant neoplasm of tongue; Z20.822 Contact with and (suspected) exposure to COVID-19
CPT/HCPCS: 71275; 80053; 87637; 93005; 96360; 99285; 83735; 83880; 84443; 84484; 85025; 93010; J3490

== ENCOUNTER 2022-05-22 03:28 | Outpatient (CLI) | payer BC, SELFPAY ==
[2022-05-22 11:12] LABS: TSH 0.87 uIU/mL (0.36-3.74)
== END 2022-05-22 03:29 | disposition home or self-care (01) ==
LOC: LBO 03:28
PROVIDERS: PCP Nurse Practitioner Family; Visit Provider Internal Medicine Endocrinology, Diabetes & Metabolism
DX: E03.9 Hypothyroidism, unspecified (principal)
CPT/HCPCS: 36415; 84443

== ENCOUNTER 2023-07-20 05:34 | Outpatient (CLI) | payer BC, SELFPAY | END 2023-07-20 05:35 | disposition home or self-care (01) | PROVIDERS: PCP Nurse Practitioner Family; Visit Provider Internal Medicine Endocrinology, Diabetes & Metabolism | DX: E03.9 Hypothyroidism, unspecified (principal) | CPT/HCPCS: 36415; 84443 ==

== ENCOUNTER 2023-08-20 14:46 | Emergency (ER) | payer BC, SELFPAY ==
--- NOTE | 2023-08-20 14:45 | RT.EKG_ITS ---
APPROVED REPORT Exam: Resting ECG Reason for Exam: chest pain Patient Location: E HR:85 bpm ECG Measurements Heart Rate 85 AXIS SC 125 P 81 QRSd 74 QRS 14 QT 377 T 56 QTc 449 Conclusion Sinus rhythm...normal P axis, V-rate 60- 99
[2023-08-20 14:49] VITALS: BP 134/97; PULSE 104; RESP 18; O2SAT 97
[2023-08-20 14:51] VITALS: BP 134/97; PULSE 101; O2SAT 97
[2023-08-20 15:00] VITALS: BP 125/86; PULSE 75; O2SAT 97
--- NOTE | 2023-08-20 15:00 | DI.RAD_ITS ---
Exam(s) XR CHEST 2V PA LATERAL EXAM: XR CHEST 2V PA LATERAL CLINICAL HISTORY: chest pain TECHNIQUE: 2D digital imaging was performed of the chest. Two images were obtained. PA and lateral views were obtained. COMPARISON: CR CHEST 2 VIEWS PA,LAT from 06/10/2013 FINDINGS: MEDIASTINUM: Normal. HEART: Normal. PULMONARY VASCULATURE: Normal. LUNGS: Clear. PLEURAL SPACE: No pleural effusion or pneumothorax. BONE:Within normal limits for the patient's age. OTHER FINDINGS:Surgical clips are seen in the left supraclavicular soft tissues. IMPRESSION: No acute pulmonary findings. DATA REPOSITORY: RADIATION DOSE DELIVERED:
--- NOTE | 2023-08-20 15:06 | W.ED.GENAD ---
Discharge Plan Disposition Patient Disposition: Home Discharge Details Chief Complaint: Chest/Rib Clinical Impression: Chest wall muscle strain, Chest pain Primary Care Provider: Tita Méndez ED Provider: Roberth Aguilar Home Meds and New Rx's Prescriptions: No Action hydrocortisone 2.5 % cream 1 applic topical BID PRN (Reason: skin irritation) Qty: 30 0RF triamcinolone acetonide 0.1 % ointment 1 applic topical BID Qty: 30 0RF Hold Instructions: Pt Stopped/Never Started (DME) nebulizer and compressor Device See Rx Instructions .Route Qty: 1 0RF Rx Instructions: As directed (DME) nebulizers [VixOne Nebulizer-Adult Mask] Misc See Rx Instructions .Route Qty: 1 3RF Rx Instructions: As directed albuterol sulfate 90 mcg/actuation HFA aerosol inhaler 2 inh inhalation Q6H PRN (Reason: shortness of breath or wheezing) Qty: 18 4RF ibuprofen 100 mg/5 mL suspension 100 mg PO Q4H levothyroxine [Synthroid] 100 mcg tablet 100 mcg PO DAILY Hold Instructions: Home Medication placed on hold at Doctor's office albuterol sulfate 1.25 mg/3 mL solution for nebulization 1.25 mg inhalation QID PRN (Reason: shortness of breath or wheezing) Qty: 90 1RF Discharge Instructions Instructions: Chest Pain (ED), Muscle Strain (ED) Additional Instructions: You were seen in the emergency department for chest pain. We performed labs, EKG, and chest x-ray that were all unremarkable. You likely have a chest wall muscle strain. He can take [id number] ibuprofen per bottle directions for pain or discomfort. You can use warm compresses for pain as well. If you have worsening pain or shortness of breath please return to the emergency department. Otherwise follow-up with your primary care doctor. Referrals: Tita Méndez NP [Primary Care Provider] - 1 week HPI General Date/Time Provider Initiated Documentation: 08/20/23 14:55. 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 Started last night after an episode of repetitive coughing. Cough resolved but she still has the left-sided chest pain. No shortness of breath. No fevers or chills. She is worried she could have aspirated. It did not go away and she was worried and came here. Related Data Home Medications Medication Instructions Recorded Confirmed nebulizer and compressor #1 ea 02/27/22 08/20/23 nebulizers (VixOne Nebulizer-Adult #1 ea 03/06/22 03/28/23 Mask) albuterol sulfate 90 mcg/actuation 2 inh inhalation Q6H PRN shortness 05/04/22 08/20/23 aerosol inhaler of breath or wheezing #18 grams ibuprofen 100 mg/5 mL oral 100 mg PO Q4H 09/13/22 08/20/23 suspension levothyroxine 100 mcg tablet 100 mcg PO DAILY 09/13/22 08/20/23 (Synthroid) hydrocortisone 2.5 % topical cream 1 applic topical BID PRN skin 11/07/22 08/20/23 irritation #30 grams triamcinolone acetonide 0.1 % 1 applic topical BID skin 11/07/22 08/20/23 topical ointment irritation #30 grams albuterol sulfate 1.25 mg/3 mL 1.25 mg (3 mL) inhalation QID PRN 12/18/22 08/20/23 solution for nebulization shortness of breath or wheezing #90 mL Previous Rx's Medication Instructions Recorded nebulizer and compressor #1 ea 02/27/22 nebulizers (VixOne Nebulizer-Adult #1 ea 03/06/22 Mask) albuterol sulfate 90 mcg/actuation 2 inh inhalation Q6H PRN shortness 05/04/22 aerosol inhaler of breath or wheezing #18 grams hydrocortisone 2.5 % topical cream 1 applic topical BID PRN skin 11/07/22 irritation #30 grams triamcinolone acetonide 0.1 % 1 applic topical BID skin 11/07/22 topical ointment irritation #30 grams albuterol sulfate 1.25 mg/3 mL 1.25 mg (3 mL) inhalation QID PRN 12/18/22 solution for nebulization shortness of breath or wheezing #90 mL Allergies Allergy/AdvReac Type Severity Reaction Status Date / Time apple Allergy Itching Verified 08/20/23 14:56 birch Allergy Wheezing Verified 08/20/23 14:56 peanut Allergy Itching Verified 08/20/23 14:56 acetaminophen AdvReac Severe Wheezing Verified 08/20/23 14:56 benzocaine AdvReac irritant Verified 08/20/23 14:56 General Stated Complaint: Chest/Rib NORA: 3 Review of Systems Constitutional Constitutional: Denies chills, Denies fever(s) and Denies headache(s) Eyes Eyes: Denies change in vision ENT Ears, Nose, Mouth, and Throat: Denies headache(s) and Denies odynophagia Cardiovascular Cardiovascular: Reports chest pain and Denies dyspnea Respiratory Respiratory: Reports cough, Reports pain with cough and Denies dyspnea Gastrointestinal Gastrointestinal: Denies abdominal pain, Denies diarrhea, Denies nausea, Denies odynophagia and Denies vomiting Genitourinary Genitourinary: Denies dysuria Musculoskeletal Musculoskeletal: Denies myalgias Integumentary/Breasts Skin/Breast: Denies changing lesions Neurologic Neurologic: Denies behavioral changes and Denies headache(s) Psychiatric Psychiatric: Denies behavioral changes Endocrine Endocrine: Denies heat intolerance Hematologic/Lymphatic Hematologic/Lymphatic: Denies lymphadenopathy Exam Const General: cooperative Nutritional Appearance: average body habitus Orientation: alert, awake and oriented x3 HENMT Head: normal to inspection Ears: external ears normal Mouth: moist mucous membranes Eyes Pupils: PERRL EOM: EOM intact bilaterally and No nystagmus Neck Neck: full ROM and no tracheal deviation Chest Chest: other (Left chest wall tenderness with no deformity) Resp Auscultation: clear to auscultation bilaterally Cardio Rate: regular rate Rhythm: regular rhythm GI Inspection: normal to inspection Palpation: soft, no guarding, not rigid and nontender Back/Spine/Pelvis Back: No no CVA tenderness Thoracic/Lumbar Spine: thoracic and lumbar spine normal to inspection Skin General skin exam: no rashes or lesions noted Neuro General: patient alert, patient awake and patient oriented x3 Cranial Nerves: CN's II-XI intact bilaterally, PERRL and no nystagmus Cognition: normal cognition Motor: muscle tone normal throughout and strength 5/5 throughout Sensory Exam: no sensory deficits noted Extrem General: normal to inspection Course Vital Signs Vital signs: Vital Signs Pulse 104 H 08/20/23 14:49 Respiratory Rate 18 08/20/23 14:49 Blood Pressure 134/97 H 08/20/23 14:49 Pulse Oximetry 97 08/20/23 14:49 Temperature Source Skin 08/20/23 14:49 Pulse 104 H 08/20/23 14:49 Respiratory Rate 18 08/20/23 14:49 Respiratory Effort Normal 08/20/23 15:01 Respiratory Depth Normal 08/20/23 15:01 Respiratory Pattern Normal 08/20/23 15:01 Blood Pressure 134/97 H 08/20/23 14:49 Blood Pressure Position Sitting 08/20/23 14:49 Pulse Oximetry 97 08/20/23 14:49 Oxygen Delivery Method Room Air 08/20/23 14:49 Oxygen Flow Rate 0 08/20/23 14:49 Pain Level 9 08/20/23 15:01 Lab/Test Results Lab/Test Results: Laboratory Tests Range/Units 08/20/23 18:00 Troponin I Cancelled Medical Decision Making This is a 53-year-old female who presents with left chest wall tenderness. Happened in the setting of coughing and reproducible on exam making muscle strain or minor rib fracture possible. Certainly muscle strain would be a diagnosis of exclusion. Will get chest x-ray to look for pneumonia or pneumothorax. Considered ACS but very atypical and given duration of symptoms if cardiac enzymes are unremarkable we will not pursue the diagnosis further as her EKG is showing sinus rhythm with no ischemic changes. Will get broad labs to look for electrolyte or metabolic derangements that could be contributing. Will send D-dimer to evaluate for pulmonary embolism in this low risk patient. Will treat for suspected rib fracture or muscle sprain with anti-inflammatories and reevaluate. 401pm Labs chest x-ray and EKG all unremarkable. Symptoms improved here. Likely muscle strain from coughing. No signs of pneumonia. Will discharge with return precautions. Imaging Data Radiologic Study: Attestation: I personally reviewed and interpreted this imaging study as follows: Imaging: X-Ray (chest) My impression: unremarkable Radiologist's impression: unremarkbale Lab Data Lab results reviewed: Yes I reviewed the patient's lab results. ECG Data Attestation: I personally reviewed and interpreted this ECG (s) as follows: Prior ECG tracings: available for review Interpretation: Sinus rhythm with no ischemic changes. Normal axis and OK interval Quality:SDOH Health Related Social Needs: No Data to Display PFSH All Active Problems (Updated 08/20/23 @ 16:05 by Roberth Aguilar MD) Chest pain (Acute) Chest wall muscle strain (Acute) Underweight due to inadequate caloric intake (Acute) Osteoradionecrosis of mandible (Acute) [facility] 09/14/22. 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 -hb S/P reconstruction procedure [facility] 08/21/22 Fibular free flap reconstruction with implants.-hb History of radical neck surgery Family History Mother Essential hypertension Hyperlipidemia Father No problems noted. 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
[2023-08-20 15:13] LABS: Abs Immature Grans 0.02 10^3/uL (0.0-0.06); Absolute Basophil Count 0.06 10^3/uL (0.0-0.2); Absolute Eosinophil Count 0.65 10^3/uL (0.0-0.7); Absolute Lymphocyte Count 0.77 10^3/uL (1.2-3.4); Absolute Monocyte Count 0.36 10^3/uL (0.1-0.8); Absolute Neutrophil Count 5.01 10^3/uL (1.2-6.7); Basophils % 0.9 %; Eosinophils % 9.5 %; HCT 39.8 % (36.0-46.0); HGB 13.7 g/dL (11.2-15.7); Immature Grans % 0.3 %; Lymphocytes % 11.2 %; MCH 32.4 pg (27.0-33.0); MCHC 34.4 % (32.0-36.0); MCV 94 fL (80-95); Monocytes % 5.2 %; Neutrophils % 72.9 %; Platelet Count 322 10^3/uL (130-400); RBC 4.23 10^6/uL (3.93-5.22); RDW 11.5 % (11.7-14.6); RDW-SD 39.5 fL; WBC 6.87 10^3/uL (4.4-10.8)
[2023-08-20 15:15] VITALS: BP 125/86; PULSE 75; RESP 15; O2SAT 95
[2023-08-20 15:25] LABS: INR 1.1 (0.9-1.1); Prothrombin Time 10.6 sec (9.1-11.1)
[2023-08-20 15:37] LABS: ALT 21 U/L (14-59); AST 21 U/L (15-37); Albumin 3.4 g/dL (3.4-5.0); Alkaline Phosphatase 77 U/L (46-116); BUN 8 mg/dL (7-18); Bilirubin, Total 0.4 mg/dL (0.2-1.0); CREATININE 0.8 mg/dL (0.55-1.02); Calcium 9.2 mg/dL (8.5-10.1); Chloride 96 mmol/L (98-107); Glucose 98 mg/dL (74-106); Magnesium 2.2 mg/dL (1.8-2.4); NT-proBNP 56 pg/mL (<300); Potassium 3.5 mmol/L (3.5-5.1); Sodium 134 mmol/L (136-145); Total Protein 7.5 g/dL (6.4-8.2); Troponin I < 50 ng/L (< or =60)
[2023-08-20 15:44] LABS: D-Dimer 497 ng/mlFEU (<500)
[2023-08-20] MEDS: Ketorolac 30 MG/ML VIAL IM (15:52)
== END 2023-08-20 16:11 | disposition home or self-care (01) ==
PROVIDERS: Emergency Provider Student in an Organized Health Care Education/Training Program; PCP Nurse Practitioner Family
DX: S29.011A Strain of muscle and tendon of front wall of thorax, initial encounter (principal); R07.89 Other chest pain; X58.XXXA Exposure to other specified factors, initial encounter
CPT/HCPCS: 80053; 93005; 96372; 99285; 71046; 83735; 83880; 84484; 85025; 85379; 85610; 93010; 99284; J1885

== ENCOUNTER 2023-09-11 03:20 | Outpatient (CLI) | payer BC, SELFPAY ==
[2023-09-11 14:20] LABS: TSH 0.37 uIU/Ml (0.36-3.74)
== END 2023-09-11 03:21 | disposition home or self-care (01) ==
LOC: LBO 03:20
PROVIDERS: PCP Nurse Practitioner Family; Visit Provider Internal Medicine Endocrinology, Diabetes & Metabolism
DX: E03.9 Hypothyroidism, unspecified (principal)
CPT/HCPCS: 36415; 84443

== ENCOUNTER 2023-10-25 01:53 | Outpatient (CLI) | payer BC, SELFPAY ==
[2023-10-25 12:08] LABS: TSH 0.54 uIU/Ml (0.36-3.74)
== END 2023-10-25 01:54 | disposition home or self-care (01) ==
PROVIDERS: PCP Nurse Practitioner Family; Visit Provider Internal Medicine Endocrinology, Diabetes & Metabolism
DX: E03.9 Hypothyroidism, unspecified (principal)
CPT/HCPCS: 36415; 84443

== ENCOUNTER 2023-12-08 19:49 | Emergency (ER) | payer BC, SELFPAY ==
--- OUTSIDE RECORDS SUMMARY | 2023-12-08 19:55 | XMS_ITS | Encounter Summary ---
Author Organization Formerly [facility], Later [facility] [place] [address] Care Team Providers Care Otolaryngologist Name Role Phone DevTita APRN Primary Care Provider +1- [phone] Encounter Details Date Type Department Care Team (Late st Contact Info) Description 07/05/2023 Telephone [place] [address] Nicki Miles Social History Tobacco Use Types Packs/Day Years Used Date Smoking Tobacco: Never Smokeless Tobacco: Never Alcohol Use Standard Drinks/Week Comments Not Currently 0 (1 standard drink = 0.6 oz pur e alcohol) seldom, 4 drinks per year [facility] Inpatient Questions Answer Date Recorded Does Anyone Try to Keep You From Having Contact with Others or Doing Things Outside Your Home? no 11/15/2022 Feels Threatened by Someone no 10/19 Feels Unsafe at Home or Work/School no 11/15/2022 Physical Signs of Abuse Present no 11/15/2022 Sex and Gender Information Value Date Recorded Sex Assigned at Not on file Gender Identity Not on file Sexual Orientation Not on file documented as of this encounter Miscellaneous Notes * Telephone Encounter - Nicki Miles - 07/05/2023 3:02 PM EDT Delilah from Dr. Pascal's office is called advising their provider is working with in regards to this pt and Dr. Pascal is asking if we have any screws for the denture implant? documented in this encounter Plan of Treatment Not on file documented as of this encounter Visit Diagnoses Not on filedocumented in this encounter Care Teams Otolaryngologist Relationship Specialty Start Date End Date Dev, Tita Butt APRN [address] [facility] [address] [place] [address] PCP - General Internal Medicine 05/15/22 documented as of this encounter
--- OUTSIDE RECORDS SUMMARY | 2023-12-08 19:55 | XMS_ITS | Encounter Summary ---
Author Organization [facility] [place] [address] Care Team Providers Care Bread Baker Name Role Phone DevTita APRN Primary Care Provider +1- [phone] Reason for Visit * Reason Onset Date Comments Medication Refill 11/23/2023 Encounter Details Date Type Department Care Team (Late st Contact Info) Description 11/23/2023 Refill [place] [id number] Tori Muhammad, RN Social History Tobacco Use Types Packs/Day Years Used Date Smoking Tobacco: Never Smokeless Tobacco: Never Alcohol Use Standard Drinks/Week Comments Not Currently 0 (1 standard drink = 0.6 oz pur e alcohol) seldom, 4 drinks per year [facility] Inpatient Questions Answer Date Recorded Does Anyone [...] on file documented as of this encounter Plan of Treatment Not on file documented as of this encounter Visit Diagnoses Not on filedocumented in this encounter Care Teams Bread Baker Relationship Specialty Start Date End Date Tita Méndez APRN [address] [place] [address] PCP - General Internal Medicine 05/15/22 documented as of this encounter
--- OUTSIDE RECORDS SUMMARY | 2023-12-08 19:55 | XMS_ITS | Encounter Summary ---
Author Organization [facility] [place] [address] Care Team Providers Care Clerical Secretary Name Role Phone DevTita APRN Primary Care Provider +1- [phone] Encounter Details Date Type Department Care Team (Latest Contact Info) Description 05/14/2023 Travel Social History Tobacco Use Types Packs/Day Years Used Date Smoking Tobacco: Never Smokeless Tobacco: Never Alcohol Use Standard Drinks/Week Comments Not Currently 0 (1 standard drink = 0.6 oz pur e alcohol) seldom, 4 drinks per year [facility] Inpatient Questions Answer Date Recorded Does Anyone [...] on filedocumented in this encounter Care Teams Clerical Secretary Relationship Specialty Start Date End Date Tita Méndez APRN [address] [place], [place] [id number] PCP - General Internal Medicine 05/15/22 documented as of this encounter
--- OUTSIDE RECORDS SUMMARY | 2023-12-08 19:55 | XMS_ITS | Encounter Summary ---
Author Organization [facility] [place] [address] Care Team Providers Care Outside B2B Sales Name Role Phone DevTita APRN Primary Care Provider +1- [phone] Encounter Details Date Type Department Care Team (Latest Contact Info) Description 11/29/2023 Travel Social History Tobacco Use Types Packs/Day [...] on filedocumented in this encounter Care Teams Outside B2B Sales Relationship Specialty Start Date End Date Tita Méndez APRN [address] [place], [place] [id number] PCP - General Internal Medicine 05/15/22 documented as of this encounter
--- OUTSIDE RECORDS SUMMARY | 2023-12-08 19:55 | XMS_ITS | Encounter Summary ---
Author [place] [address] Care Team Providers Care Irrigationist Name Role Phone Dev, Tita Butt APRN Primary Care Provider +1- [phone] Encounter Details Date Type Department Care Team (Latest Contact Info) Description 05/14/2023 9:05 AM EST Laboratory Appointment Lab [address] [place] [address] Hypothyroidism (acquired) Social History Tobacco Use Types Packs/Day Years [...] on file documented as of this encounter Procedures Procedure Name Priority Date/Time Associated Diagnosis Comments TSH Routine 05/14/2023 9:05 AM EST Hypothyroidism (acquired) documented in this encounter Results * (ABNORMAL) TSH (05/14/2023 9:05 AM EST) Thyroid Stimulating Hormone 0.23(L) 0.27 - 4.20 mcIU/mL [facility] Comment: Reference Interval (mcIU/mL): Females: ??First Trimester: 0.23-3.88 ??Second Trimester: 0.22-3.90 ??Third Trimester: 0.44-4.66 Blood 05/14/2023 9:05 AM EST 05/14/2023 9:11 AM EST Narrative Resulting Agency Comment Spec In Lab Evelio Gimenez MD CHEMISTRY ORDERAB LES [facility] [place] [address] documented in this encounter Visit Diagnoses Diagnosis Hypothyroidism (acquired) Unspecified hypothyroidism documented in this encounter Care Teams Irrigationist Relationship Specialty Start Date End Date Dev, Tita Butt APRN [address] [place] [address] PCP - General Internal Medicine 05/15/22 documented as of this encounter
--- OUTSIDE RECORDS SUMMARY | 2023-12-08 19:55 | XMS_ITS | Clinical Summary ---
Author Organization [facility] [place] [address] Care Team Providers Care Mountain Bike Guide Name Role Phone Dev, Tita Butt APRN Primary Care Provider [phone] Allergies Active Allergy Reactions Criticality Noted Date Comments Allergenic Ysbqzny-Xjcm-Bxsth Itching Medium 05/25/2021 Applesauce Benzocaine 08/28/2016 Made pt tongue red and angry. Irritant reaction - allergy testing negative Birch Other (See Comments) 03/22/2017 Birch pollen: wheezing and throat constriction Peanut Itching Medium 05/25/2021 Soy Itching 09/15/2022 Acetaminophen Anaphylaxis High 03/16/2022 Medications Medication Sig Dispensed Refills Start Date End Date Status ibuprofen (ADVIL;MOTRIN) 100 mg/5 mL Suspension Take by mouth every 4 hours as needed for Fever. Active hydrocortisone 2.5 % Cream 11/07/2022 Active triamcinolone (Kenalog) 0.1 % Ointment 11/07/2022 Active albuteroL 90 mcg/actuation HFA Aerosol Inhaler Inhale 2 puffs into the lungs every 4 hours as needed. 05/04/2022 Active levothyroxine (Synthroid) 100 mcg tablet Take 1 tablet by mouth daily. 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 Pathological fracture of mandible with routine h ealing 10/10/2019 Overview (10/10/2019): Developed pathologic fracture of mandible in area of previous radiation therapy that has developed callus and is stable. Periodontal disease 05/29/2014 DIFFICULT AIRWAY 05/06/2014 Overview (05/06/2014): 05/06/2014 - see airway note in anesthesia record Radiation injury 01/21/2014 Overview (01/21/2014): Has dry mouth/xerostomia, retraction of gums Tinnitus 01/18/2012 Overview (01/18/2012): Related to chemoradiation History of tongue cancer 01/18/2012 Hypothyroidism (acquired), r adiation-induced s/p XRT for SCC tongue ca in 2006 with TSH 105 in 06/2508/23/2010 Overview (10/30/2020): EPO=383 in 06/25. Started on synthroid Tongue cancer 08/23/2010 Overview (03/25/2017): pT1 pN2b Mx, nonsmoker A. L tongue pain, induration, Candidiasis 03/25; antifungal + topical steroid Rx with clinical improvement; biopsies showing oral hairy leukoplakia, dysplasia B. excision 09/13/06: 1.0 cm poorly differentiated squamous cell Ca, without in situ component; (+) medial margin; repeat endoscopy 10/05; rN2b by PET/CT; completion hemiglossectomy with L functional neck dissection, sternocleidomastoid rotation flap, skin graft 10/30/06: 1 cm high-grade SCCa, 4/53 nodes involved (1 at level 5), (- ) DANE, PNI, LVI C. adjuvant concurrent cisplatin (100mg/m2 q3wks - 3 total doses) plus radiation (66Gy total) started 11/26 - 01/07/07, complicated by mucositis, dysphagia requiring PEG tube, severe oral pain; excellent functional recovery D. Hyperbaric O2 therapy for dental extractions 04/2014 D. Atraumatic L mandibular fracture 12/2015 despite hyperbaric O2 treatment; managed conservatively Encounters Date Type Department Care Team Description 11/29/2023 1:00 PM EDT Notes [place] [address] Roberth Lee MD 11/29/2023 Travel 11/23/2023 [place] [address] Tori Muhammad RN 11/09/2023 9:00 AM EDT TH Visit (TeleHealth) [place] [id number] Evelio Gimenez MD Hypothyroidism (acquired); Vitamin D insufficiency from Last 3 Months Immunizations Name Administration Dates Next Due Covid-19 Monovalent (Noe/J&J) (2142-0467) Influenza (FluMist) Quadrivalent, Intranasal PATRICK E 12/19/2010 Influenza Quadrivalent, Preservative Free 2019 Influenza Trivalent w/Preservative 01/09/2014 Influenza Vaccine, Whole 01/30/2007 Td Adult, Absorbed, Preservative Free 08/06/2013 ,08/17/2002 Tdap 08/06/2013 Family History Medical History Relation Comments Breast Cancer Maternal Grandmother Eczema Mother Amblyopia Paternal Uncle Glaucoma Neg Hx Macular Degeneration Neg Hx Strabismus Neg Hx Relation Status Comments Maternal Grandmother Mother Paternal Uncle Social History Tobacco Use Types Packs/Day Years Used Date Smoking Tobacco: Never Smokeless Tobacco: Never Tobacco Cessation:Counseling Given: Not Answered Alcohol Use Standard Drinks/Week Comments Not Currently 0 (1 standard drink = 0.6 oz pur e alcohol) seldom, 4 drinks per year IPV Inpatient Questions Answer Date Recorded Does [...] on file Sexual Orientation Not on file Last Filed Vital Signs Vital Sign Reading Time Taken Comments Blood Pressure 97/63 11/15/2022 12:30 PM EDT Pulse 71 11/15/2022 12:30 PM EDT Temperature 36.8 ??C (98.2 ??F) 11/15/2022 12:30 PM E DT Respiratory Rate 13 11/15/2022 12:30 PM EDT Oxygen Saturation 93% 11/15/2022 12:30 PM EDT Inhaled Oxygen Concentration - - Weight 42.1 kg (92 lb 14.4 oz) 03/22/2023 8:40 A M EST Height 157.5 cm (5' 2) 03/22/2023 8:40 AM EST Body Mass Index 16.99 03/22/2023 8:40 AM EST Plan of Treatment Health Maintenance Due Date Last Done Comments CT Colonography 1971 Colonoscopy 1971 Colorectal Cancer Screening 1971 FIT DNA 1971 FIT 1971 Sigmoidoscopy (10 year) with FIT yearly 1971 Sigmoidoscopy 1971 HIV screen 06/30/1989 Hepatitis C Screening 06/30/1989 Hepatitis B vaccine (0-59 yrs) (1) 06/30/1990 Breast Cancer Share Decision Needed 2011 PAP Smear 01/27/2013 01/27/2010 Zoster vaccine (1 of 2) 06/30/2021 Tetanus vaccine 08/07/2023 08/06/2013, 05/2 03/2013, 08/17/2002 Covid-19 Vaccine (2 - 2022-2 4 season) 2023 05/30/2020 Influenza (Flu) vaccine (1 o f 1 - Influenza standard series) 11/18/2023 12/26/2019, 01/09/2014, 12/19/2010, Additional history exists Breast Cancer screening 05/14/2025 05/14/19 24, 03/09/2022, 03/07/2021, Additional history exists Tdap adult Completed 08/06/2013 Medical Devices Implanted Type Area Manufacturers Agent Device Identifier Shelf Expiration Date Model / Serial / Lot Abutment Cmf 3.5x5mm Dental Tapered One Piece Ti Screw Vent ([id number]) - [id number] Implanted:Qty: 1 on 08/21/2022 by Keyur Ng MD [facility] Hard Palate [employer] - JOSHUA BIO 10/05/2026 TAC5 / / [id number] Description:Mandible Impl,Abut,Temp, Ti,Tap ([id number]) - [id number] Implanted:Qty: 1 on 08/21/2022 by Keyur Ng MD [facility] Hard Palate [employer] - [employer]UA BIO 01/27/2032 ACTT / / [id number] Description:Mandible Impl,Abut,Temp, Ti,Tap ([id number]) - [id number] Implanted:Qty: 1 on 08/21/2022 by Keyur Ng MD [facility] Hard Palate [employer] - [employer] BIO 01/27/2032 ACTT / / [id number] Description:Mandible Impl,Abut,Temp, Ti,Tap ([id number]) - [id number] Implanted:Qty: 1 on 08/21/2022 by Keyur Ng MD [facility] Hard Palate [employer] - [employer] BIO 01/27/2032 ACTT / / [id number] Description:Mandible Imp,Tsv,3.7,8,M tx,Mg ([id number]) - [id number] Implanted:Qty: 1 on 08/21/2022 by Keyur Ng MD [facility] Hard Palate [employer] - J[employer]UA BIO 06/04/2027 [id number] / / [id number] Description:Mandible Imp,Tsv,3.7,8,M tx,Mg (2121034) - [id number] Implanted:Qty: 1 on 08/21/2022 by Keyur Ng MD at [facility] Hard Palate [employer] - [employer] BIO 06/04/2027 [id number] / / [id number] Description:Mandible Imp,Tsv,3.7,8,M tx,Mg ([id number]) - [id number] Implanted:Qty: 1 on 08/21/2022 by Keyru Ng MD [facility] Hard Palate [employer] - JOS[employer]UA BIO 06/04/2027 [facility] / [id number] Description:Mandible Imp,Tsv,3.7,8,M tx,Mg (4848827) - [id number] Implanted:Qty: 1 on 08/21/2022 by Keyur Ng MD at [facility] Hard Palate [employer] - [employer] BIO 06/04/2027 [facility] / [id number] Description:Mandible Imp,Tsv,3.7,8,M tx,Mg (1633611) - [id number] Implanted:Qty: 1 on 08/21/2022 by Keyur Ng MD [facility] Hard Palate [employer] - [employer]UA BIO 06/04/2027 [place] / [id number] Description:Mandible Imp,Tsv,3.7,8,M tx,Mg (8356630) - [id number] Implanted:Qty: 1 on 08/21/2022 by Keyur Ng MD [facility] Hard Palate [employer] - [employer] BIO 06/04/2027 TSVT / [id number] Description:Mandible Imp,Tsv,3.7,8,M tx,Mg ([id number]) - [id number] Implanted:Qty: 1 on 08/21/2022 by Keyur Ng MD [facility] Hard Palate [employer] - [employer]OS[employer]UA BIO 06/04/2027 [facility] / [id number] Description:Mandible Abutment Cmf 3.5x5mm Dental Tapered One Piece Ti Screw Vent ([id number]) - [id number] Implanted:Qty: 1 on 08/21/2022 by Keyur Ng MD [facility] Hard Palate [employer] - JOS[employer]UA BIO 10/05/2026 [facility] 725 Description:Mandible Abutment Cmf 3.5x4mm Dental Tapered One Piece Ti Screw Vent ([id number]) - [id number] Implanted:Qty: 1 on 08/21/2022 by Keyur Ng MD [facility] Hard Palate [employer] - JOSHUA BIO 12/29/2026 [id number] Description:Mandible Customized Sharlene. Recon Plate 20, Full Implanted:Qty: 1 on 08/21/2022 by Cheo Laguna MD at [facility] Bilateral: Mandible NAHUN CRANIOMA[employer]ILLOFACIAL - [id number] 0 / / [id number] Purchasing And Fiscal Clerk Microvascular 4mm Anastomotic Non Absorbable Ss [place] (6337665) - [id number] Implanted:Qty: 1 on 08/21/2022 by Cheo Laguna MD at [facility] Right: Neck [employer] 04/17/2027 [id number] / / [id number] Purchasing And Fiscal Clerk Microvascular 3mm Anastomotic Non Absorbable Ss [place] ([id number]) - [id number] Implanted:Qty: 1 on 08/21/2022 by Cheo Laguna MD [facility] Right: Neck [facility] [employer] - [facility] 09/29/2026 [id number] / / [id number] Screw Cmf 2x8mm Mandibular Self Tapping Locking Miller Ti ([id number]) - [id number] Implanted:Qty: 2 on 08/21/2022 by Roberth Lee MD at [facility] Mandible [employer] - NAHUN 8 / / Screw Cmf 2x10mm Mandibular Self Tapping Locking Miller Ti ([id number]) - [id number] Implanted:Qty: 4 on 08/21/2022 by Roberth Lee MD at [facility] Mandible [employer] - NAHUN 50 0 / / Abutment Cmf 3.5x5mm Dental Tapered One Piece Ti Screw Vent ([id number]) - [id number] Implanted:Qty: 1 on 08/21/2022 by Keyur Ng MD [facility] Hard Palate [employer] - JOSHUA BIO 10/05/2026 [id number] Description:Mandible Screw Cmf 2x10mm Mandibular Self Tapping Gold Ti [place] ([id number]) - [id number] Implanted:Qty: 2 on 08/21/2022 by Keyur Ng MD [facility] Mandible [employer] - NAHUN 50 0 / / Screw Cmf 2x6mm Mandibular Self Tapping Locking Miller Ti (9778576) - [id number] Implanted:Qty: 6 on 08/21/2022 by Keyur Ng MD at [facility] Mandible [employer] - NAHUN 50 6 / / Screw Cmf 2x10mm Mandibular Self Tapping Locking Miller Ti ([id number]) - [id number] Implanted:Qty: 1 on 08/21/2022 by Keyur Ng MD [facility] Mandible [employer] - NAHUN 50 0 / / Abutment Cmf 3.5x5mm Dental Tapered One Piece Ti Screw Vent ([id number]) - [id number] Implanted:Qty: 1 on 08/21/2022 by Keyur Ng MD [facility] Hard Palate [employer] - JOSHUA BIO 10/05/2026 TAC / 72 Description:Mandible Abutment Cmf 3.5x5mm Dental Tapered One Piece Ti Screw Vent (4267964) - [id number] Implanted:Qty: 1 on 08/21/2022 by Keyur Ng MD [facility] Hard Palate [employer] - JOSHUA BIO 10/05/2026 TAC / 72 Description:Mandible Abutment Cmf 3.5x5mm Dental Tapered One Piece Ti Screw Vent ([id number]) - [id number] Implanted:Qty: 1 on 08/21/2022 by Keyur Ng MD [facility] Hard Palate [employer] - JOSHUA BIO 10/05/2026 [facility] / 72 Description:Mandible Impl,Abut,Temp, Ti,Tap (6250054) - [id number] Implanted:Qty: 1 on 08/21/2022 by Keyur Ng MD [facility] Hard Palate [employer] - JOSHUA BIO 01/27/2032 ACTT / / [id number] Description:Mandible Impl,Abut,Temp, Ti,Tap ([id number]) - [id number] Implanted:Qty: 1 on 08/21/2022 by Keyur Ng MD at [facility] Hard Palate [employer] - JOSHUA BIO 01/27/2032 ACTT / / [id number] Description:Mandible Impl,Abut,Temp, Ti,Tap (4031727) - [id number] Implanted:Qty: 1 on 08/21/2022 by Keyur Ng MD at [facility] Hard Palate [employer] - JOSHUA BIO 01/27/2032 ACTT / / [id number] Description:Mandible Impl,Abut,Temp, Ti,Tap ([id number]) - [id number] Implanted:Qty: 3 on 11/15/2022 by Keyur Ng MD at [facility] Hard Palate [employer] - JOSHUA BIO ACTT / / 206 Explanted Type Area Manufacturers Agent Device Identifier Shelf Expiration Date Model / Serial / Lot Screw Cmf 2x6mm Mandibular Self Tapping Gold Ti [place]inger ([id number]) - [id number] Explanted:Qty: 10 on 08/21/2022 at [facility] Mandible [employer] - NAHUN / / Screw Cmf 2x8mm Mandibular Self Tapping Gold Ti Leibinger ([id number]) - [id number] Explanted:Qty: 1 on 08/21/2022 at [facility] Mandible [employer] - NAHUN 50 / / Screw Cmf 2x6mm Mandibular Self Tapping Gold Ti Leibinger (1354693) - [id number] Explanted:Qty: 5 on 08/21/2022 by Keyur Ng MD at [facility] Mandible [employer] - NAHUN 50 / / Screw Cmf 2x8mm Mandibular Self Tapping Gold Ti Leibinger ([id number]) - [id number] Explanted:Qty: 1 on 08/21/2022 by Keyur Ng MD at [facility] Mandible NAHUN Neuro[employer]ace - NAHUN 50 / / Procedures Procedure Name Priority Date/Time Associated Diagnosis Comments LAB SCAN 10/25/2023 12:00 AM EDT LAB SCAN 09/11/2023 12:00 AM EDT MAMMO SCREENING CAD AND DEMETRIO BILATERAL Routine 05/14/2023 9:54 AM EST Visit for screening mammogram [facility] ADMIRAL CYTOLOGY FINAL REPORT Routine 01/27/2010 4:28 PM EST from Last 3 Months or Most Recently Relevant to Health Maintenance Results * Scan Doc: Lab (10/25/2023 12:00 AM EDT) Only the most recent of2 resultswithin the time period is included. Narrative 10/25/2023 12:00 AM EDT Ordered by an unspecified provider. Scanning Provider MEDIA MGR SCAN EXT O RDR/RSLT * Mammo Screening Cad and Demetrio Bilateral (05/14/2023 9:54 AM EST) Anatomical Region Laterality Modality Breast Bilateral Mammography Narrative 05/14/2023 9:58 AM EST BILATERAL MAMMOGRAPHY REASON FOR EXAM: Screening TECHNIQUE: CC and MLO views were obtained of each breast using standard 2-D mammography as well as 3-D tomosynthesis. Computer aided detection was used. This is compared with prior images. FINDINGS: ??The breasts are heterogeneously dense, which may obscure small masses. There are no suspicious microcalcifications, masses, or areas of distortion. The pattern is stable. CONCLUSION: No mammographic evidence of malignancy. RECOMMENDATION: ? * Regular screening mammograms starting at age 40 reduces the risk of from breast cancer. ? * Yearly screening provides the most benefit. Women should discuss with their provider their ??preferred breast cancer screening schedule. ? * Women should report any breast changes to a health care provider right away. ? * Some women, because of their family history, a genetic tendency, or other factors should be ??screened with annual breast MRI as well as with mammograms. A result letter has been sent to this patient by [facility]. BIRADS CATEGORY 1: NEGATIVE Electronically signed by: NANDO PALMA MD Tita Butt Dev DESIGN PRINTING MACHINE SETTER IMG MAMMO ORDERABL ES * PATHOLOGY REAR ADMIRAL CYTOLOGY FINAL REPORT (01/27/2010 4:28 PM EST) Chief Technology Officer Cytology Final Report ? [facility] ? Provider: ?? ЕКАТЕРИНА JHA ?? Pt. Name: ?? LORYKIRT Bolivar ? Acc #: ?[id number] ?Pt. ? Col Date: ?? 01/27/2010 ?/Sex: ?1970,(39 years),Female ? Rec Date: ?? 01/27/2010 ?LOC: ?5L ? CYTOPATHOLOGY: ??REAR ADMIRAL ? ---Adequacy--- ? Specimen submitted is satisfactory for evaluation. ??No endocervical ? component present . ? Note: ??Initial cross-sectional studies suggested that ANTOINETTE cells were more ? commonly identified when an endocervical component was present, however ? subsequent longitudinal studies fail to show that women lacking an ? endocervical component in a Pap smear are at increased risk for ANTOINETTE. ? ---Cytopathologic Diagnosis--- ?NORMAL ? Negative for Intraepithelial Lesion or Malignancy (NILM). ? 01/31/10 ?? Screened by: ??SQA ? 01/31/10 ?? Verified by: ??Mari MASSEY(ASCP), Angelito Becerra - Slubber Operator ? ---Comment--- ? Fungal organisms morphologically consistent with Bharti species. ? ---Clinical Information--- ? Specimen Source: ?Cervical Endocervical LBP ? LMP: ?01/07/10 ? / ?: ?? No ? Hysterectomy?: ?No ? Clinical Data, Significant Therapy and Clinical Impression: ?Routine Pap Smear ? HPV Option: ?If ASCUS, please perform reflex High Risk HPV Testing. ? Preparation: ?Hologic Vial ? This Pap Test has been evaluated with the assistance of the ThinPrep Pap ? Test Imaging System. ? Note: ? The Pap test is a screening test for cervical cancer with an inherent ? false-negative rate dependent upon several variables. ??For further ? information please contact the [facility] Laboratory. ? [facility] ? Provider: ?? ЕКАТЕРИНА JHA ?? Pt. Name: ?? KIRT HOLLIS ? Acc #: ?[id number] ?Pt. ? Col Date: ?? 01/27/2010 ?/Sex: ?1970,(39 years),Female ? Rec Date: ?? 01/27/2010 ?LOC: ?5L ? CYTOPATHOLOGY: ??REAR ADMIRAL ? Reference: ??Valdo CS. ??Transportation Consultant of Pap Smear Results. ??In: ? Amanda BS, [facility], ed. ??The Pap Smear. ??[place]: ??Sam, 2002: ? 71-77. [facility] 01/27/2010 4:28 PM EST Екатерина Jha DESIGN PRINTING MACHINE SETTER PATHOLOGY/CYTOLOGY ORDERABLES [facility] from Last 3 Months or Most Recently Relevant to Health Maintenance Advance Directives * Attempt Cardiopulmonary Resuscitation - Inpatient (Latest Code Status on File) Date Activated Date Inactivated Comments 11/09/2022 10:31 AM 11/10/2022 4:34 AM Question Answer Comments Code Status decision made by: Patient * Attempt Cardiopulmonary Resuscitation - Inpatient Date Activated Date Inactivated Comments 08/21/2022 3:34 PM 09/08/2022 4:20 PM Question Answer Comments Code Status decision made by: Patient Care Teams Mountain Bike Guide Relationship Specialty Start Date End Date Dev, Tita Butt APRN [address] [place] [address] PCP - General Internal Medicine 05/15/22
--- OUTSIDE RECORDS SUMMARY | 2023-12-08 19:55 | XMS_ITS | Encounter Summary ---
Author Organization [facility] Address [facility] [place] [address] Care Team Providers Care Guide Dog Mobility Instructor Name Role Phone Dev, Tita Butt APRN Primary Care Provider [phone]- [phone] Encounter Details Date Type Department Care Team (Latest Contact Info) Description 11/09/2023 9:00 AM EDT TH Visit (TeleHealth) [place] [id number] Evelio Gimenez MD [facility] [place] [address] Hypothyroidism (acquired); Vitamin D insufficiency Social History Tobacco Use Types Packs/Day Years Used Date Smoking Tobacco: Never Smokeless Tobacco: Never Alcohol Use Standard Drinks/Week Comments Not Currently 0 (1 standard drink = 0.6 oz pur e alcohol) seldom, 4 drinks per year [facility] Inpatient Questions Answer Date Recorded Does Anyone [...] on file documented as of this encounter Patient Instructions * Patient Instructions* Evelio Gimenez MD - 11/09/2023 9:00 AM EDT PLAN: 1. Medication: Patient will taper levothyroxine from 100 mcg to 88 daily (11/09/23). Addendum 11/22/23: Pt sent eDH message that she felt less well and unable to eat so it's ok to resumeLT4 100 mcg qd which helped her eat better prior. (Her TSH was up-trending better from 0.1-0.3 to 0.54 on 10/25/23 on LT4 100 mcg and the lowered dose of 88 mcg did not help her gain weight but caused low appetite). She knows to take it on an empty stomach at least 1/2 h before breakfast and separate from iron, calcium or multivitamin-multimineral supplement to ensure full absorption of her thyroid medication. Patient was advised of proper dosage, how to take the medication properly, precautions, and potentialcomplication of the medication prescribed. Addendum: Lab 12/14/22 showed better trend for TSH but still slightly high at 6 in mild hypothyroid,so you can increase LT4 100 mcg Mon-Sat and 1.5 tablet on Sundays for now and recheck lab in 2-3 months. EVELIO GIMENEZ MD Addendum: 05/14/23 lab showed a borderline high thyroid with a slightly suppressed TSH 0.23, so you can taper levothyroxine 125 mcg Mon-Sat and 0.5 tablet on Sundays until it's out and then switch to LT4 112 mcg stable dose daily. Then recheck lab for TSH in 6-8 weeks. EVELIO GIMENEZ MD Addendum: Lab 07/20/23 showed TSH 0.1 => tapered LT4 to 100 mcg qd. Target is to keep TSH 1.0-4.0 range and <10. Pt prefers TSH 1.0-2.0. Patient will continue all other medications, healthy diet and execise regularly. 2. To eat healthy diet to keep weight stable or gain some weight back for her BMI of 18. 3. Lab: check lab next 2 months at [facility] lab for TSH (q 8 weeks x6 as needed) and 25vitamin D for her postmenopause as arranged. Orders Placed This Encounter Procedures TSH [place] Vitamin D, 25-Hydroxy To recheck lab for TSH locally at [facility] lab every 2 months until stable. Standing order for TSH lab test every 2 months as needed x6 was efaxed to [facility] lab today so she can simply go there for blood test as needed. 4. RTC: 12 months and will check TSH at that time (quick-draw lab so we know the result right away at next visit). 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 During the interim her LT4 dose was increased to 125 mcg qd (03/22/23) => back down to 100 mcg qd (07/23/23). Recent TSH was better upfrom 0.1 (May) to 0.37 (August) and 0.54 (10/25/23) => so we will taper LT4 to 88 mcg daily today (). Patient verbally consents to this telehealth visit and understands that this visit may be billed, similar to a clinic office visit. I provided care to the patient today via Phone call. The total time associated with this visit, chart review, care prior to this annual visit, documentation, and coordination of care was 30 minutes. HISTORY OF PRESENT ILLNESS: Patient is a very pleasant 53 y.o. female who presents for annual endocrine visit of radiation-induced hypothyroidism which occurred 2 yrs after XRT to head and neck area for SCC tongue ca surgery and chemoRx in 2006 with TSH 105 in 06/25. She has been on an increasing dose of levothyroxine from 25 mcg up to 100- 125 mcg qd with some fluctuation of TSH 0.04-7.75 range over the past several years and lately tapered the dose down to 100 mcg qd when she was getting into menopause (last period was 02/14/22). We have been monitoring TSH closely and adjust LT4 dose during the interim. She has been taking [id number] mcg daily since early July but TSH remains borderline suppressed so we will taper LT4 to 88 mcg qd today. She knows to take levothyroxine properly with good compliant (smashed it in powder and give it via tube feed from tube feeding. Patient has a strong family history of thyroid problem in her mother and maternal aunt. She also had previous head and neck irradiation as above and does not take OTC-biotin or any other supplements or medications that can cause low thyroid. Never noticed goiter but some neck discomfort with some difficulty swallowing and voice changes after the throat cancer surgery over 13 yrs ago. 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 *Tapered 112 to 100 mcg->then 88 mcg => then 75 mcg=>88 mcg=> 1.5Sun=>100 =>0.5tab Sun=>qow=>daily=>100mcg => 125 mcg => 112 mcg => 100 mcg =>88 mcg Labs: 02/14/19 10/02/19 12/09/19 02/04/20 03/05/20 05/26/20 06/23/20 *09/14/20 11/01/20 12/28/20 02/23/21 04/27/21 06/22/21 08/25/21 10/25/21 12/27/2105/22/2208/27/22 10/17/22 12/14/22 03/22/23 05/14/23 05/20/23 09/11/23 10/24/22 TSH 0.43 0.04L 0.29L 7.75H 0.51 1.93 4.4H 0.07L 0.11L 0.35 1.92 0.6 4.47 3.14 2.79 0.92 1.69 0.87 18.9H 8.45H 6.06H 7.23H 0.23L 0.1L 0.37 0.54 FT4 1.25 1.51 T3 101 25vitamin D 36 Ca 8.9 9.4 BMP Normal Normal TC/LDL 221H/131H 206H/89 TG/HDL 79/75 189/ 79 A1c 5.1% Fatigue - Some but better Weight gain - Pretty stable wt 92-95 lbs even while having hypo- or hyper- thyroid in the past Intolerance to cold - no Dry skin - no constipation - no Menstrual irregularities - No periods last period was 02/14/22, in menopause Muscle and joint pain - some Sleep disturbances - some Forgetfulness - no Globus sensation - yes Difficulty swallowing - yes Difficulty breathing - no Hoarseness or voice change - Yes after treatment of SCC of the tongue s/p surgery, XRT and chemo inremission REVIEW OF SYSTEMS: as per HPI, all other systems reviewed and negative PAST MEDICAL HISTORY Patient Active Problem List Diagnosis Code Hypothyroidism (acquired), radiation-induced s/p XRT for SCC tongue ca in 2006 with TSH 105 in 06/25E03.9 Tongue cancer C02.9 Tinnitus H93.19 History of tongue cancer Z85.810 Radiation injury T66.XXXA DIFFICULT AIRWAY T88.4XXA Periodontal disease K05.6 Depressive disorder F32.A 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, Y84.2 Pathological fracture of mandible with routine healing M84.48XD Family hx-breast malignancy Z80.3 Carpal tunnel syndrome G56.00 Dental abscess K04.7 Facial abscess L02.01 Hyperlipidemia E78.5 Neck muscle spasm M62.838 Throat discomfort R07.0 Mandible fracture S02.609A Oropharyngeal dysphagia R13.12 Allergy Allergies Allergen Reactions Tylenol [Acetaminophen] Anaphylaxis Allergenic Eruxeaq-Trkj-Facrd Itching Applesauce Peanut Itching Benzocaine Made pt tongue red and angry. Irritant reaction - allergy testing negative Birch Other (See Comments) Birch pollen: wheezing and throat constriction Soy Itching Current Medication Current Outpatient Medications on File Prior to Visit Medication Sig Dispense Refill levothyroxine (Synthroid) 100 mcg tablet Take 1 tablet by mouth daily. 90 tablet 1 albuteroL 90 mcg/actuation HFA Aerosol Inhaler Inhale 2 puffs into the lungs every 4 hours as needed. hydrocortisone 2.5 % Cream triamcinolone (Kenalog) 0.1 % Ointment ibuprofen (ADVIL;MOTRIN) 100 mg/5 mL Suspension Take by mouth every 4 hours as needed for Fever. No current facility-administered medications on file prior to visit. Social History Social History Socioeconomic History Marital status: Spouse name: Not on file Number of children: Not on file Years of education: Not on file Highest education level: Not on file Occupational History Not on file Tobacco Use Smoking status: Never Smokeless tobacco: Never Vaping Use Vaping status: Never Used Substance and Sexual Activity Alcohol use: Not Currently Comment: seldom, 4 drinks per year Drug use: No Sexual activity: Not Currently control/protection: Surgical Other Topics Concern Not on file Social History Narrative Not on file Social Determinants of Health Financial Resource Strain: Not on file Food Insecurity: Not on file Transportation Needs: Not on file Physical Activity: Not on file Intimate Partner Violence: Not At Risk (11/15/2022) IPV Inpatient Questions Prevent Contact with Others: no Feels Threatened by Someone: no Feels Unsafe at Home: no Physical Signs of Abuse Present: no Housing Stability: Not on file Family History Family History Problem Relation Age of Onset Breast Cancer Maternal Grandmother Eczema Mother Amblyopia Paternal Uncle Strabismus Neg Hx Macular Degeneration Neg Hx Glaucoma Neg Hx PHYSICAL EXAM: BW 92 lbs Very pleasant. Some dysarthria PE from last in-person visit: GENERAL: Thin, well hydrated, in no distress, oriented x 3 EYES: no thyroid eye signs, ENMANUEL, cornea normal, wearing mask with +some malfiguration of her lowerface but not obvious with the mask on, +some dysarthria and dysphonia NECK: supple, no palpable nodule or goiter, no bruit, no tenderness, no adenopathies EXTREMITIES: No clubbing, no edema, no cyanosis, normal nails NEURO: normal strength, no tremor, normal reflexes Office Thyroid Ultrasound at initial visit (11/01/20) Indication: Radiation-induced Hypothyroidism with h/o head and neck radiation at risk for thyroid nodule and/or cancer - to r/o nodule and to check baseline gland size Procedure: Using real-time ultrasonography limited to the thyroid gland, longitudinal and transverse images with and without color doppler were obtained of both lobes and isthmus The right lobe is absent The left lobe is absent Isthmus is absent The overall thyroid gland is atrophic with only scarring tissue in the thyroid bed area. No abnormal neck mass. No thyroid nodule or normal thyroid tissue was identified. Lateral neck was negative. Impression: completely atrophic thyroid gland without any nodule or abnormal neck mass identified. Rec: No need for further US study and to fully replace her with a full dose levothyroxine supplement to keep TSH in normal range. EVELIO GIMENEZ MD Lab 12/14/22 showed better trend for TSH but still slightly high at 6 in mild hypothyroid, so you can increase LT4 100 mcg Mon-Sat and 1.5 tablet on Sundays for now and recheck lab in 2-3 months. Lab 03/22/23 showed TSH 7.23 as she has been crushing the pills and drank it in [employer] => to increase LT4 to 125 mcg qd. EVELIO GIMENEZ MD Lab 05/14/23 showed a borderline high thyroid with a slightly suppressed TSH 0.23, so you can taper levothyroxine 125 mcg Mon-Sat and 0.5 tablet on Sundays until it's out and then switch to LT4 112 mcg stable dose daily. Lab 07/20/23 showed TSH 0.1 => tapered LT4 to 100 mcg qd. DIAGNOSIS: 53 y.o. 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 She has been on an increasing dose of levothyroxine up to 100-112 mcg qd in the past with some fluctuation of TSH 0.04-18.9 range over the past several years (too suppressed with 112 mcg dosing and 75 mcg was not enough and better near normal TSH after taking LT4 100 mcg qd). During the interim her LT4 dose was increased to 125 mcg qd (03/22/23) => back down to 100 mcg qd (07/23/23). Recent TSH was better up from 0.1 (May) to 0.37 (August) and 0.54(10/25/23). Target TSH 1.0-3.0 and <4 for her at this age of 51s.and she has very sensitive thyrotrophs in the pituitary. She also has mild hypercholesterolemia on diet control with improvement. Target TSH 1.0-4.0 range to avoid weight loss for her. She felt the best when her TSH was 1.0-2.0. PLAN: 1. Medication: Patient will taper levothyroxine from 100 mcg to 88 daily (11/09/23) Addendum 11/22/23: Pt sent eDH message that she felt less well and unable to eat so it's ok to resumeLT4 100 mcg qd which helped her eat better prior. (Her TSH was up-trending better from 0.1-0.3 to 0.54 on 10/25/23 on LT4 100 mcg and the lowered dose of 88 mcg did not help her gain weight but caused low appetite). She knows to take it on an empty stomach at least 1/2 h before breakfast and separate from iron, calcium or multivitamin-multimineral supplement to ensure full absorption of her thyroid medication. Patient was advised of proper dosage, how to take the medication properly, precautions, and potentialcomplication of the medication prescribed. Target is to keep TSH 0.5-4.0 range and <10. Pt prefers TSH 1.0-2.0. Patient will continue all other medications, healthy diet and execise regularly. 2. To eat healthy diet to keep weight stable or gain some weight back for her BMI of 18. 3. Lab: check lab next 2 months at [facility] lab for TSH (q 8 weeks x6 as needed) and 25vitamin D for her postmenopause as arranged. Orders Placed This Encounter Procedures TSH [place] Vitamin D, 25-Hydroxy To recheck lab for TSH locally at [facility] lab every 2 months until stable. Standing order for TSH lab test every 2 months as needed x6 was efaxed to [facility] lab today so she can simply go there for blood test as needed. 4. RTC: 12 months and will check TSH at that time (quick-draw lab so we know the result right away at next visit). We have reviewed our plan outlined above with the patient, and patient verbalized understanding. All questions were answered and most of the time was spent on counseling about thyroid conditions, medications adjustment, including pros and cons of starting medication, the diagnostic and therapeutic decisions, and coordination of care. Thank you for allowing me to participate in the care of this very pleasant patient. Evelio Gimenez MD, PhD, FACE, FACP cc: Tita Méndez APRN documented in this encounter Miscellaneous Notes * Addendum Note - Evelio Gimenez MD - 11/09/2023 9:00 AM EDTAddended by: EVELIO GIMENEZ on: 11/22/2023 07:27 PM Modules accepted: Orders documented in this encounter Plan of Treatment Scheduled Orders Name Type Priority Associated Diagnoses Orde r Schedule TSH [place] Lab Routine Hypothyroidism (acquired) Every 8 Weeks for 6 Occurrences starting 11/09/2023 until 11/08/2024 Vitamin D, 25-Hydroxy Lab Routine Hypothyroidism (acquired) Vitamin D insufficiency Expected: 11/09/2023 (Approximate), Expires: 11/08/2024 documented as of this encounter Visit Diagnoses Diagnosis Hypothyroidism (acquired) Unspecified hypothyroidism Vitamin D insufficiency Unspecified vitamin D deficiency documented in this encounter Care Teams Guide Dog Mobility Instructor Relationship Specialty Start Date End Date Tita Méndez APRN [address] [place] [address] PCP - General Internal Medicine 05/15/22 documented as of this encounter
--- OUTSIDE RECORDS SUMMARY | 2023-12-08 19:55 | XMS_ITS | Encounter Summary ---
Author Organization [facility] Address [facility] [place] [address] Care Team Providers Care Clinical Fellow Name Role Phone DevTita APRN Primary Care Provider +1- [phone] Reason for Visit * Reason Comments Follow Up Surgery S/p Oromandibular re construction with right fibula free flap, skin graft from R thigh to right leg and submental opening 08/21/22 f/u regarding healing Encounter Details Date Type Department Care Team (Late st Contact Info) Description 05/14/2023 8:40 AM EST Office [place] [address] Nadine Bullock APRN [facility] [place] [address] Surgery follow-up Social History Tobacco Use Types Packs/Day Years Used Date Smoking Tobacco: Never Smokeless Tobacco: Never Alcohol Use Standard Drinks/Week Comments Not Currently 0 (1 standard drink = 0.6 oz pur e alcohol) seldom, 4 drinks per year [facility] Inpatient Questions Answer Date Recorded [...] on file documented as of this encounter Progress Notes * Nadine Bullock APRN - 05/14/2023 8:40 AM EST Plastic Surgery Follow Up Note Provider: Nadine Bullock APRN Reason for visit: follow up regarding healing progress Date of surgery: 08/21/22 Procedure(s): Oromandibular reconstruction with right fibula free flap, skin graft from R thigh to right leg and submental opening ([place]) Complications: None reported HPI: Patient reports that she is doing well without complaint. She has a new implant in place. Examination: Patient is alert, conversant, comfortable, ambulating Neck Incision: maturing scar. Skin graft donor site: well healed. Flap donor site: well healed scar with maturing skin graft. No open areas. No palpable collection. No erythema. Impression: Theresa Hollis is a 52 y.o. female who was seen today for follow up. The patient is healing well. Additional follow up is not required at this time, but the patient is welcome to contact the clinic with any questions or concerns. Plan: Follow up PRN Continue to moisturize skin grafts and massage scars and grafts. I, Helen Ybarra, have performed the documentation for this encounter in the presence of and actingas a scribe for NADINE BULLOCK APRN. I performed the services which were documented by the scribe, and I agree with the accuracy of the documentation in this encounter. NADINE BULLOCK APRN documented in this encounter Plan of Treatment Not on file documented as of this encounter Visit Diagnoses Diagnosis Surgery follow-up Follow-up examination, following unspecified surgery documented in this encounter Care Teams Clinical Fellow Relationship Specialty Start Date End Date Dev, Tita Butt APRN [address] [place] [address] PCP - General Internal Medicine 05/15/22 documented as of this encounter
--- OUTSIDE RECORDS SUMMARY | 2023-12-08 19:55 | XMS_ITS | Encounter Summary ---
Author Organization [facility] Address [facility] [place] [address] Care Team Providers Care Dye Weigher Name Role Phone Dev, Tita Butt APRN Primary Care Provider +1- [phone] Encounter Details Date Type Department Care Team (Late st Contact Info) Description 11/29/2023 1:00 PM EDT Notes [place] [address] Roberth Lee MD [facility] [place] [address] Social History Tobacco Use Types Packs/Day Years Used Date Smoking Tobacco: Never Smokeless Tobacco: Never Alcohol Use Standard Drinks/Week Comments Not Currently 0 (1 standard drink = 0.6 oz pur e alcohol) seldom, 4 drinks per year [facility] Inpatient Questions Answer Date Recorded Does Anyone [...] as of this encounter Progress Notes * Roberth Lee MD - 11/29/2023 1:00 PM EDT Images from the original note were not included. Head and Neck Surgery Clinic Follow Up Note I had a lengthy phone visit with Theresa Cordonnorm today. She has expressed frustrations in her functional recovery after her mandibular resection and implant placement with dental prosthesis. There have been issues with the prosthesis fitting in the mouth. 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 This had been a difficult journey for her in the recovery phase but she has healed up nicely from her surgery and she also had implants placed at the same time. Overall she is expressed frustration with this final phase in her recovery which is specifically the dental prosthetic and the implants. As I am not a implant specialist nor a data quality consultant I could not fullycomment on the issues that she has been struggling with but what I did suggest is that may be a fresh set of eyes on her situation could potentially be helpful, specifically to help her better understand her options and expectations. We also talked about the challenges of these types of surgeries and that not all patients have the best outcomes that they were hoping and that ultimately these results do fall in the [place] curve just like most of the things in life. She did express understanding ofthis and does feel that maybe pursuing a second opinion would be helpful. We have talked about a number of options specifically another tertiary Medical Center such as [place] in [place] or potentially one of the programs in [place], specifically programs that have extensive experience with jobreconstruction and dental implants and prosthetic rehabilitation. An alternative option which wouldbe somewhat easier for her from a traveling standpoint but also would give her an excellent recommendation would be my colleague Dr. Callejas in [place] who also has experience with prosthetic rehabilitation and to I had mention to Theresa previously. I think starting with Dr. Callejas to at least get a fresh set of eyes on her current prosthetic as well as the implant positions and other concerns that Theresa has expressed to me would be helpful to at least get a new conversation started and then we can decide whether further opinions from other [facility] medical centers would be value added or not. Theresa is agreeable with this plan and has requested that I place a second opinion referral. I once againemphasized that she should feel free to reach out anytime she has any questions or concerns and I would do my best to try to help her navigate this challenging journey. documented in this encounter Plan of Treatment Not on file documented as of this encounter Visit Diagnoses Not on filedocumented in this encounter Care Teams Dye Weigher Relationship Specialty Start Date End Date Dev, Tita Butt APRN [address] [place] [address] PCP - General Internal Medicine 05/15/22 documented as of this encounter
--- OUTSIDE RECORDS SUMMARY | 2023-12-08 19:55 | XMS_ITS | Encounter Summary ---
Author Organization [facility] [place] [address] Care Team Providers Care Mason Tender Restoration Labor Name Role Phone Tita Méndez APRN Primary Care Provider [phone]- [phone] Encounter Details Date Type Department Care Team (Late st Contact Info) Description 05/18/2023 Orders [place] [id number] Nicki Prado RN Hypothyroidism (acquired) Social History Tobacco Use Types Packs/Day Years Used Date Smoking Tobacco: Never Smokeless Tobacco: Never Alcohol Use Standard Drinks/Week Comments Not Currently 0 (1 standard drink = 0.6 oz pur e alcohol) seldom, 4 drinks per year [facility] Inpatient Questions Answer Date Recorded Does [...] hypothyroidism documented in this encounter Care Teams Mason [employer] Relationship Specialty Start Date End Date Tita Méndez APRN [address] [place] [address] PCP - General Internal Medicine 05/15/22 documented as of this encounter
--- OUTSIDE RECORDS SUMMARY | 2023-12-08 19:56 | XMS_ITS | Encounter Summary ---
Author Organization [facility] [place] [address] Care Team Providers Care Lsw Name Role Phone Tita Méndez APRN Primary Care Provider [phone]- [phone] Encounter Details Date Type Department Care Team (Latest Contact Info) Description 09/21/2022 Travel Social History Tobacco Use Types Packs/Day Years Used Date Smoking Tobacco: Never Smokeless Tobacco: Never Alcohol Use Standard Drinks/Week Comments Not Currently 0 (1 standard drink = 0.6 oz pur e alcohol) seldom, 4 drinks per year Sex and Gender Information Value Date Recorded Sex Assigned at Not on file Gender Identity Not on file Sexual Orientation Not on file documented as of this encounter Plan of Treatment Not on file documented as of this encounter Visit Diagnoses Not on filedocumented in this encounter Care Teams Lsw Relationship Specialty Start Date End Date Tita Méndez APRN [address] [place], [place] [address] PCP - General Internal Medicine 05/15/22 documented as of this encounter
--- OUTSIDE RECORDS SUMMARY | 2023-12-08 19:56 | XMS_ITS | Encounter Summary ---
Author Organization [facility] [place] [address] Care Team Providers Care Padding Gluer Name Role Phone Dev, Tita Butt APRN Primary Care Provider [phone]- [phone] Encounter Details Date Type Department Care Team (Latest Contact Info) Description 09/14/2022 8:30 AM EDT Office Visit [place] [address] Kam Mclean PA [facility] [place] [address] Osteoradionecrosis of jaw; Status post surgery Social History Tobacco Use Types Packs/Day Years [...] as of this encounter Progress Notes * Kam Mclean PA - 09/14/2022 8:30 AM EDT Images from the original note were not included. ORAL-MAXILLOFACIAL SURGERY OUTPATIENT CLINIC FOLLOW-UP VISIT Name: Theresa Wyattesteban Age/Sex: 52 y.o. female History of Present Illness Theresa Hollis is a 52 y.o. female seen for follow-up regarding partial edentulism, osteoradionecrosis of mandible S/p Fibular free flap reconstruction with implants placed at that time, 08/21/2022, insertion of prosthesis deferred at that time to allow time for maturation of tissue A complete history of the Theresa 's symptoms and physical signs were reviewed with attention to initial findings and interval progression, pain, bleeding, swelling, lumps, bumps, drainage, dysphagia, odynophagia, paresthesia, dysarthria and systemic effects. 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 Hyperlipidemia Hypothyroidism Patient Active Problem List Diagnosis Code Hypothyroidism [...] M62.838 Throat discomfort R07.0 Mandible fracture S02.609A Social History Tobacco Use Smoking status: Never Smokeless tobacco: Never Substance Use Topics Alcohol use: Not Currently Comment: seldom, 4 drinks per year oxyCODONE (Roxicodone) 5 mg tablet chlorhexidine (Peridex) 0.12 % Mouthwash levothyroxine (Synthroid) 100 mcg tablet fluocinolone and shower cap ([place]-Smoothe/FS Scalp Oil) 0.01 % Oil ibuprofen (ADVIL;MOTRIN) 100 mg/5 mL Suspension Allergies Allergen Reactions Tylenol [Acetaminophen] Anaphylaxis Allergenic Ahvsnat-Olhz-Gastt Itching Applesauce Peanut Itching Benzocaine Made pt tongue red and angry. Irritant reaction - allergy testing negative Birch Other (See Comments) Birch pollen: wheezing and throat constriction Review of Systems Pertinent positive and negative findings discussed above. ROS with attention to cardiac, pulmonary,hepatic, renal, neurologic and dermatologic systems reviewed with relevant findings as noted. Physical Exam Vitals: There were no vitals taken for this visit. There is no height or weight on file to calculate BMI. Extraoral exam conducted including facial symmetry, sensory and motor function, alertness and appropriateness to questions and commands, range of jaw motion, TMJ function and skeletal architecture. Neck exam conducted with attention to normal musculature, vasculature and potential adenopathy. Intraoral exam including evaluation of tongue surface and consistency, floor of mouth, buccal and labial mucosa as well as maxillary and mandibular vestibules, hard and soft palate including soft palate elevation and oropharynx as well as dentition, dental arches, occlusion and salivary flow. General: No acute distress, pleasant Focused oral exam: Flap appears adapted, some implants are partially visible as pictured below, without mobility. No significant erythema or purulence present Tracheostomy site maturing Neuro: a/o x3 Neck: soft, supple Psych: appropriate, responds to questions normally Imaging Deferred for today ASSESSMENT & RECOMMENDATIONS Assessment: s/p Fibular free flap reconstruction with implants placed at that time, 08/21/2022, insertion of prosthesis deferred at that time to allow time for maturation of tissue Tentatively planning on further surgically addressing this area in combination with Dr. Laguna, Dr. Ng, and Dr. Pascal to expose implants and fit/adjust prosthesis. Tentatively planned for 11/15/2022 based on surgeon availability. Recommendations/plan: -Discussed the above tentative plan -Plan for return for pre-operative visit with Dr. Ng. Panorex at that time. -Additional recommendations per ENT, plastics We appreciate the opportunity to be involved in Ms. Hollis's care. CALLY Mena-C - Oral-Maxillofacial Surgery 09/14/2022 9:05 AM This note may have incorporated [id number] technology and though reviewed typographical or syntax errors may remain. documented in this encounter Plan of Treatment Not on file documented as of this encounter Visit Diagnoses Diagnosis Osteoradionecrosis of jaw Other specified disease of the jaws Status post surgery documented in this encounter Care Teams Padding Gluer Relationship Specialty Start Date End Date Dev, Tita Butt APRN [address] [place] [address] PCP - General Internal Medicine 05/15/22 documented as of this encounter
--- OUTSIDE RECORDS SUMMARY | 2023-12-08 19:56 | XMS_ITS | Encounter Summary ---
Author Organization [facility] [place] [address] Care Team Providers Care Custom Bookbinder Name Role Phone DevTita APRN Primary Care Provider [phone]- [phone] Reason for Visit * Reason Comments Follow-up Doing well, no mayra rns at this time. Encounter Details Date Type Department Care Team (Late st Contact Info) Description 11/09/2022 9:00 AM EDT Office [place] [phone] Hermelindo Kearney PA [facility] [place] [address] H/O tongue cancer; Dysphagia, unspecified type; Osteonecrosis of mandible Social History Tobacco Use Types Packs/Day Years Used Date Smoking Tobacco: Never Smokeless Tobacco: Never Alcohol Use Standard Drinks/Week Comments Not Currently 0 (1 standard drink = 0.6 oz pur e alcohol) seldom, 4 drinks per year [facility] Inpatient Questions Answer Date Recorded Does [...] on file documented as of this encounter Last Filed Vital Signs Vital Sign Reading Time Taken Comments Blood Pressure - - Pulse - - Temperature - - Respiratory Rate - - Oxygen Saturation - - Inhaled Oxygen Concentration - - Weight 45.2 kg (99 lb 9.6 oz) 11/09/2022 8:49 AM EDT Height 157.5 cm (5' 2) 11/09/2022 8:49 AM EDT Body Mass Index 18.22 11/09/2022 8:49 AM EDT documented in this encounter Progress Notes * Hermelindo Kearney PA - 11/09/2022 9:00 AM EDT [facility] OT[facility] FOLLOW UP NOTE Theresa Hollis is a 52 y.o. female followed for: oral cancer; osteoradionecrosis of the mandible Primary site: Left lateral tongue Stage: [id number] Surgery(ies): 10/31/06 - Hemiglossectomy, left neck dissection 1-5, skin graft, allograft Radiation: TREATMENT STARTED: 11/28/06 TREATMENT COMPLETED: 01/14/07 TREATMENT: The total maximum dose was 6600 cGy in 33 fractions. Volume reductions were instituted at 5400 cGy in 30 fractions & 6000 cGy in 30 fractions. 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 She is disease-free however has developed osteonecrosis of her mandible and loss of her dentition. She underwent tracheostomy, neck exploration, mandible excision, and fibula free flap reconstruction on 08/21/22. Findings at the time of surgeryas follows: Fistula in the left chin from the mandible with necrotic mandibular bone. Extensive radiation fibrosis of the neck making dissection extremely difficult and prolonging the portion of this procedure. No evidence of tumor was identified. At her postoperative visit on 09/14/22, she was recovering well, without pain, maintaining her weight, and denying fevers, swelling. She was noting some increased saliva, and was prescribed a trial ofRobinul for this. Her surgical sites appeared healthy, with good take of the graft site, no evidence of infection, and her tracheostomy was partially closed. She was recommended to return to clinic in 1 month. New issues since last visit: Vocal cord issue is the biggest concern. Wants to get back to eating. No pain. No drainage. No increasing swelling. Has been working with PT for lymphedema. 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 Hyperlipidemia Hypothyroidism SOCIAL HISTORY Social History Tobacco Use Smoking status: Never Smokeless tobacco: Never Substance Use Topics Alcohol use: Not Currently Comment: seldom, 4 drinks per year MEDICATIONS Current Outpatient Medications on File Prior to Visit Medication Sig Dispense Refill glycopyrrolate (RobinuL) 1 mg tablet Take 1 tablet by mouth 3 times daily. 90 tablet 1 scopolamine (Transderm-Scop) 1 mg over 3 days patch 3 day Change 1 patch on the skin every 3 days. 10 patch 12 chlorhexidine (Peridex) 0.12 % Mouthwash Take 15 mLs by mouth 2 times daily. Swish and spit. Do notswallow. 120 mL 0 levothyroxine (Synthroid) 100 mcg tablet TAKE ONE TABLET BY MOUTH EVERY DAY 90 tablet 3 fluocinolone and shower cap ([place]-Smoothe/FS Scalp Oil) 0.01 % Oil Apply topically to scalp under shower cap nightly for up to 2 weeks for flares then 1- 3 times weekly prn maintenance. 118 mL 3 ibuprofen (ADVIL;MOTRIN) 100 mg/5 mL Suspension Take by mouth every 4 hours as needed for Fever. No current facility-administered medications on file prior to visit. ALLERGIES Allergies Allergen Reactions Tylenol [Acetaminophen] Anaphylaxis Allergenic Jcurcev-Xdsp-Hfbrc Itching Applesauce Peanut Itching Benzocaine Made pt tongue red and angry. Irritant reaction - allergy testing negative Birch Other (See Comments) Birch pollen: wheezing and throat constriction Soy Itching ROS 8 point Review of Systems was normal except for pertinent positives and negatives included in the History of Present Illness. PHYSICAL EXAMINATION Physical Examination: VITALS - There were no vitals taken for this visit. GENERAL - Well dressed and well nourished. - Breathing comfortably without stridor. - No acute distress. FACE - Full and symmetric facial movement. - No dysmorphic facial features. EYES - Periocular structures and conjunctiva healthy without lesions. - Pupils are equal, round, and reactive to light. - Extraocular movement is full and intact. - No evidence of nystagmus. NOSE Please see findings under Flexible Nasal Endoscopy procedure. MOUTH - Post-surgical changes noted. - Flap reconstruction appears healthy, without bone exposure; no evidence of infection. PHARYNX - Soft palate without lesions. - Uvula is midline. - Oropharynx symmetric. NECK - Neck incisions well-healed. - Graft site with good take, healing well. - Tracheostomy site closed. - Thyroid gland without masses or asymmetry. - Trachea midline without deviation. NEURO - Cranial nerves II-XII intact and symmetric. - Responds appropriately to questions. PSYCHE - Normal mood and affect. PROCEDURES Procedure: Flexible Laryngoscopy: Indications: Evaluation for mucosal lesion of the upper airway. The risks of the procedure were reviewed, and verbal consent was obtained. Topical anesthetic and decongestant applied to the nasal cavity. The scope was passed through the nasal cavity, through the nasopharynx, and into the oropharynx. The examination was recorded on the TelePack Unit and uploadedto the [employer]. Patient tolerated the procedure well without any complications. Nasal Cavity: Normal appearing mucosa. No obstructions or lesions noted. Nasopharynx: No lesions or masses noted. Oropharynx: Base of tongue/vallecula symmetric with normal appearing lingual tonsillar tissue. No masses, ulcerations or mucosal lesions noted. Larynx: Epiglottis is thin and non-edematous. Arytenoids are symmetric. Right true cord demonstrates full motion; left vocal cord paresis. Hypopharynx: Piriform sinuses are clear bilaterally, without evidence of masses or lesions. No significant pooling of secretions was noted. No overt laryngeal penetration or aspiration. Procedure: FEES Please see the note from ROD Monroe, from today for findings. REVIEW OF IMAGES/STUDIES ASSESSMENT/RECOMMENDATIONS - No evidence of recurrence. - FEES performed. Please see the note from today from ROD Monroe for findings/recommendations. - Return to clinic in 2 months for reassessment. - The patient expressed understanding of these points and agreement with the plan, and all questions that were asked were answered to the patient's satisfaction. Plan: > Return to clinic in about 2 months for reassessment. > Follow up with g-tube denia-ramos transition today with IR. > Swallow recommendations per ROD Monroe. > Patient should call if their symptoms worsen or fail to improve, if new concerning symptoms arise, or if they have any questions or concerns regarding their treatment. I appreciate the opportunity to be involved in Ms. Hollis's care. Hermelindo Kearney PA-C [place], [place] [phone] Office 11/08/2022 documented in this encounter Plan of Treatment Not on file documented as of this encounter Visit Diagnoses Diagnosis H/O tongue cancer Personal history of malignant neoplasm of tongue Dysphagia, unspecified type Osteonecrosis of mandible Aseptic necrosis of other bone site documented in this encounter Care Teams Custom Bookbinder Relationship Specialty Start Date End Date Dev, Tita Butt APRN [address] [place] [address] PCP - General Internal Medicine 05/15/22 documented as of this encounter
--- OUTSIDE RECORDS SUMMARY | 2023-12-08 19:56 | XMS_ITS | Encounter Summary ---
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 Procedures PRO RECONSTRUC MOUTH ENTIRE ARCH PRO ADJ TISS XFER HEAD, FAC, HAND <10SQCM PRO ANESTH, PROCEDURE ON MOUTH VESTIBULOPLASTY,ENTIRE ARCH (WRVU 16.8) ADJ.TISSUE TRANSFER, REARRANGEMENT, 10SQ.CM OR LESS, MOUTH (WRVU 8.6) Keyur Ng MD [facility] [place] [address] [facility] Referral ID Status Reason Start Date Expiration Date Visits Re quested Visits Authorized [id number] 1 1 Encounter Details Date Type Department Care Team (Late st Contact Info) Description 11/15/2022 7:48 AM EDT Anesthesia [place] [address] Daja Galvan MD [facility] [place] [address] Ashok Grande MD [facility] [place] [address] Anesthesia Record Procedure Summary Procedure Name Responsible Anesthesiologist Anesthesia Start Time Anesthesia Stop Time VESTIBULOPLASTY,ENT PAUL ARCH (WRVU 16.8) (Bilateral: Mouth) Daja Galvan MD 11/15/22 0748 11/15/22 1122 Events Date Time Event Comment 11/15/2022 0748 AN Verify 0748 Start 0748 An Start Data 0802 An Induction 0829 An Intubation 0831 Anesthesia Ready 0839 Procedure Start 1103 Extubation/LMA Out 1122 an stop data 1122 Recovery or ICU Handoff Yumi ent care was transferred to the destination unit staff after review of the patient's medical history, current anesthetic/surgical status and plan, according to the Provider Handoff Checklist. 1122 Stop 1157 Meds Name Total Midazolam 1 mg fentaNYL 100 mcg IV Lidocaine 100 mg Propofol 150 mg Rocuronium 40 mg ePHEDrine 5 mg Ondansetron 8 mg Dexamethasone 8 mg Glycopyrrolate 0.2 mg ceFAZolin (Ancef) 1 g vial a ttached to sodium chloride 0.9% 50 mL Mini-Bag Plus 1 g Dexmedetomidine INF 50.54 mcg Propofol INF 246.42 mg Dexmedetomidine 40 mcg Sugammadex 200 mg Lactated Ringers 1,300 mL * Agents Name O2 * Blood No blood administrations on file. Lines, Drains, and Airways Type Details Placement Removal Incision 08/21/22; 09; (tracheostomy) 08/21/22 0926 by Terri Cortez RN Incision 08/21/22; 0937; Righ t, lower; leg 08/21/22 0937 by Terri Cortez RN Incision 08/21/22; 1000; throat 08/21/22 1000 by Itzel Castillo RN Incision 08/21/22; 1739; Righ t, anterior; thigh; Skin graft site 08/21/22 1739 by Itzel Castillo RN Enterostomy Tube 11/09/22; 1121; othe r (see comments) (Low Profile Domingo-Quintero, 16-3.5); LUQ (left upper quadrant); placed by Dr. Au 11/09/22 1121 by Katina Gonzales RN Incision 11/15/22; gum 11/15/22 0000 by Rosangela Van RN Incision 11/15/22; throat 11/15/22 0000 b y Rosangela Van RN (RETIRED) Peripheral IV Line - Single Lumen 11/15/22; 0728; cephalic vein (lateral side of arm), left; paem-klz-ruvzyu catheter system; Anatomical Landmarks; US Not Used; 20 gauge; roger DILL; distraction; 11/15/22; 1250 11/15/22 0728 by Roger Klein RN 11/15/22 1250 by Allegra Castano RN ETT Mask Ventilation: Impossible (4); ETT Type: Cuffed, Oral; ETT Size: 6.5 mm; Exchange: FOB; Notes: Awake, Pre-O2; Attempts: 2; Laryngoscopy Grade: 1; ETT Placement Verified By: Capnometry, Visual; Secured at Teeth: 28 cm; Inserted by: Juan Wakefield MD; Removal Date: 11/15/22; Removal Time: 1103 11/15/22 0829 by Ashok Grande MD 11/15/22 1103 by Ashok Grande MD documented in this encounter Social History Tobacco Use Types Packs/Day Years [...] on file documented as of this encounter OR Notes * Anesthesia Postprocedure Evaluation - Ashok Grande MD - 11/15/2022 11:22 AM EDT Department of Anesthesiology Post-procedure Note Patient: Theresa Hollis Procedure Summary Date: 11/15/22 Room / Location: [facility] OR [facility] MAIN OR Anesthesia Start: 747 Anesthesia Stop: Procedure: VESTIBULOPLASTY,ENTIRE ARCH (WRVU 16.8) (Bilateral: Mouth) Diagnosis: Osteoradionecrosis of jaw Status post surgery (status post jaw reconstruction with fibula free flap for osteoradionecrosis) Surgeons: Keyur Ng MD Responsible Provider: Daja Galvan MD Anesthesia Type: general ASA Status: 3 All Anesthesia Providers: Anesthesiologist: Daja Galvan MD Tread Tuber Machine Operator: Ashok Grande MD Vitals Value Taken Time BP 127/63 11/15/22 1118 Temp Pulse Resp SpO2 93 % 11/15/22 1121 Pain Level Vitals shown include unvalidated device data. Patient Location: PACU/[facility] Level of Consciousness: Awake and Alert Pain Management: Satisfactory Analgesia PONV: None Cardiovascular Status: At Baseline and Hemodynamically Stable Respiratory Status: Supplemental O2 (NC or FM) and Stable Respiratory Status Postoperative Fluid Status: Intravascular EUvolemia Possible Anesthetic Complications: NONE apparent at time of evaluation Final Primary Anesthesia Type: General (The anesthetic type performed was the same as planned.) Comments: Patient tolerated case well. No complaints of pain or nausea postoperatively. Vitals stable and within normal range on arrival to recovery area. Ashok Grande MD * Anesthesia Preprocedure Evaluation - Daja Galvan MD - 11/14/2022 2:43 PM EDT Images from the original note were not included. Pre-Anesthesia Evaluation for: Theresa Hollis a 52 y.o. female. Procedure(s): VESTIBULOPLASTY,ENTIRE ARCH (WRVU 16.8) ADJ.TISSUE TRANSFER, REARRANGEMENT, 10SQ.CM OR LESS, MOUTH (WRVU 8.6) Patient Active Problem List Diagnosis Date Noted ??? Oropharyngeal dysphagia 09/14/2022 ??? Mandible fracture 08/21/2022 ??? Family hx-breast malignancy 10/29/2020 ??? Carpal tunnel syndrome 10/29/2020 ??? Dental abscess 10/29/2020 ??? Facial abscess 10/29/2020 ??? Hyperlipidemia 10/29/2020 ??? Neck muscle spasm 10/29/2020 ??? Throat discomfort 10/29/2020 ??? Depressive disorder 10/10/2019 ??? Osteoradionecrosis of jaw 10/10/2019 ??? Pathological fracture of mandible with routine healing 10/10/2019 ??? Periodontal disease 05/29/2014 ??? DIFFICULT AIRWAY 05/06/2014 ??? Radiation injury 01/21/2014 ??? Tinnitus 01/18/2012 ??? History of tongue cancer 01/18/2012 ??? Hypothyroidism (acquired), radiation-induced s/p XRT for SCC tongue ca in 2006 with TSH 105 in 06/2508/23/2010 ??? Tongue cancer 08/23/2010 Past Medical History: Diagnosis Date ??? Allergic rhinitis ??? Allergy ??? Cancer of head ??? Cancer of head, face, and neck ??? Carpal tunnel syndrome 10/29/2020 ??? 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 Herpes Chickenpox as child. ??? Hyperlipidemia ??? Hypothyroidism Past Surgical History: Procedure Laterality Date ??? GLOSSECTOMY Right partial ??? IR G-TUBE PLACEMENT 09/05/2022 IR G-Tube Placement 09/05/[address] [facility] INTERVENTIONL RAD ??? LYMPHADENECTOMY SND 1-5 ??? PERCUTANEOUS GASTROSTOMY N/A 09/05/2022 PERCUTANEOUS GASTROSTOMY performed by Francisco Oliver MD at [facility] [place] ? ? PRO ADJ TISS XFER HEAD, FAC, HAND <10SQCM 08/21/2022 ADJ.TISSUE TRANSFER, REARRANGEMENT, 10SQ.CM OR LESS, NECK (WRVU 8.6) performed by Cheo Laguna MDat [facility] MAIN OR ??? PRO BONE BIOPSY,TROCAR/NEEDLE SUPERF Left 05/06/2014 BIOPSY BONE, TROCAR OR NEEDLE, SUPERFICIAL, MANDIBLE performed by Alfred Vital MD at [facility] [place] ??? PRO BONE-SKIN GRAFT, MICROVASCULAR 08/21/2022 @FLAP, FREE OSTEOCUTANEOUS W MICROVASC, FIBULA (WRVU 45.43) performed by Cheo Laguna MD at [facility] OR ??? PRO CERVICAL LYMPHADECTOMY MODIFIED RADICAL NECK DISSECTION Right 08/21/2022 @CERVICAL LYMPHADENECTOMY (MODIFIED RADICAL NECK DISSECTION)-JANA , ROBOTIC (WRVU 23.95) performed by Roberth Lee MD at [facility] OR ? ? PRO DEBRIDEMENT BONE MUSCLE &/FASCIA 20 SQ CM/< Bilateral 11/17/2019 DEBRIDEMENT SKIN, SUBCU, MUSCLE, BONE, HEAD/NECK (WRVU 4.1) performed by Keyur Ng MD at [facility] OR ??? PRO EXCISION OF BONE, LOWER JAW Bilateral 08/21/2022 EXCISION OF BONE, MANDIBLE (WRVU 10.03) performed by Roberth Lee MD at [facility] OR ? ? PRO IMPRESSION & PREPARATION MANDIBULAR RESECTION PROSTHESIS N/A 08/21/2022 IMPRESSION AND CUSTOM PREPARATION,MANDIBULAR RESECTION PROSTHESIS (WRVU 22.85) performed by Keyur Ng MD at [facility] OR ??? PRO INJECTION PLATELET PLASMA WITH IMAGE, HARVEST/PREP 11/17/2019 INJECTION(S), PLATELET RICH PLASMA, ANY SITE, INCLUDING IMAGE GUIDANCE, HARVESTING AND PREPARATION WHEN PERFORMED performed by Keyur Ng MD at [facility] OR ??? PRO RECONSTR JAW, FULL ENDO IMPLNT N/A 08/21/2022 RECONSTRUCT MANDIBLE OR MAXILLA, ENDOSTEAL IMPLANT, COMPLETE (WRVU 18.77) performed by Keyur Ng MD at [facility] OR ??? PRO RECONSTR MANDIBLE, BONE PLATE 08/21/2022 RECONSTRUCT MANDIBLE, EXTRAORAL, W/ TRANSOSTEAL BONE PLATE (WRVU 13.62) performed by Cheo Laguna MD at [facility] OR ??? PRO REMOVAL ERUPTED TOOTH WITH ELEVATION OF MUCOPERIOSTEAL FLAP N/A 05/06/2014 SURGICAL EXTRACTIONS REQUIRING ELEVATION OF MUCOPERIOSTEAL FLAP AND REMOVAL OF BONE OR SECTION OF TOOTH performed by Alfred Vital MD at [facility] OR ??? PRO REMOVAL ERUPTED TOOTH WITH ELEVATION OF MUCOPERIOSTEAL FLAP Bilateral 11/17/2019 SURGICAL EXTRACTIONS REQUIRING ELEVATION OF MUCOPERIOSTEAL FLAP AND REMOVAL OF BONE OR SECTION OF TOOTH (WRVU 1.09) performed by Keyur Ng MD at [facility] MAIN OR ? ? PRO SPLIT GRFT TRUNK, ARM, LEG <100SQCM N/A 08/21/2022 SPLIT THICK SKIN GRAFT,100 SQ CM OR LESS, LEGS (WRVU 9.9) performed by hCeo Laguna MD at [facility] MAIN OR ??? PRO TRACHEOSTOMY, PLANNED N/A 08/21/2022 TRACHEOSTOMY, PLANNED (WRVU 5.56) performed by Roberth Lee MD at [facility] MAIN OR ??? SKIN GRAFT Social History Tobacco Use ??? Smoking status: Never ??? Smokeless tobacco: Never Substance Use Topics ??? Alcohol use: Not Currently Comment: seldom, 4 drinks per year Social History Substance and Sexual Activity Drug Use No Allergies Allergen Reactions ??? Tylenol [Acetaminophen] Anaphylaxis ??? Allergenic Ughjhhn-Yjdc-Jtamh Itching Applesauce ??? Peanut Itching ??? Benzocaine Made pt tongue red and angry. Irritant reaction - allergy testing negative ??? Birch Other (See Comments) Birch pollen: wheezing and throat constriction ??? Soy Itching Medications: MAR and/or home medications have been reviewed. Physical Exam: Preprocedure Vitals Current as of 11/14/22 1443 No BP, pulse, respiration, SpO2, or temperature recorded. Height: Weight: BMI: IBW: 45.1 kg (99 lb 5.5 oz) Airway Assessment: Mallampati: IV TM distance: <3 FB Neck ROM: limited Cardiovascular Assessment: Rhythm: regular Rate: normal Pulmonary Assessment: unlabored breathing Dental Assessment: Misc Assessment: Last Filed Perioperative Cognitive Screening None Anesthesia Plan: ASA 3 general, with a(n) intravenous induction 52yr old female presenting for vestibuloplasty of arch of mouth and adjacent tissue transfer in setting of osteoradionecrosis of jaw. PMH significant for tongue cancer and hypothyroidism. Cardiopulmonary studies include negative 08/2022 CXR and 08/2022 EKG showing NSR with T wave inversions in V3 and aVL. Prior anesthetic records shows difficult airway- G3v with CMAC, attempted awake fiberoptic but wereunable to pass 7.0 tube, were able to successfully intubate with bougie and CMAC. Easy mask and no issues with prior GA. Will plan for GA with nasal fiberoptic/CMAC intubation. Region - Other Informed Consent: Anesthetic plan and risks discussed with patient. Plan discussed with resident. Anesthesia Screening documented in this encounter Plan of Treatment Not on file documented as of this encounter Visit Diagnoses Not on filedocumented in this encounter Administered Medications Inactive Administered Medications - up to 3 most recent administrations Medication Order MAR Action Action Date Dose Rate Site ceFAZolin (Ancef) 1 g vial attached to sodium chloride 0.9% 50 mL Mini-Bag Plus Intravenous, CONTINUOUS PRN, Starting on Sun11/15/22 at 0837, Until Sun11/15/22 at 1122, Administer over 30 Minutes, Anesthesia Intra-op New Bag 11/15/2022 8:37 AM EDT 1 g dexAMETHasone (Decadron) injection Intravenous, PRN, Starting on Sun11/15/22 at 0838, Until Sun11/15/22 at 1122, Anesthesia Intra-op, Routine Given 11/15/2022 8:43 AM EDT 4 mg Given 11/15/2022 8:38 AM EDT 4 mg dexmedeTOMIDine (Precedex) (4 mcg/mL) bolus injection (Anesthsia) Intravenous, PRN, Starting on Sun11/15/22 at 0802, Until Sun11/15/22 at 1122, Anesthesia Intra-op, Routine Given 11/15/2022 9:17 AM EDT 4 mcg Given 11/15/2022 9:10 AM EDT 4 mcg Given 11/15/2022 8:25 AM EDT 4 mcg dexmedeTOMIDine (Precedex) (4 mcg/mL) in sodium chloride 0.9% 50 mL infusion Intravenous, CONTINUOUS PRN, Starting on Sun11/15/22 at 0802, Until Sun11/15/22 at 1122, Anesthesia Intra-op Rate/Dose Change 11/15/2022 9:08 AM EDT 0.5 mcg/kg/hr 5.55 mL/hr Rate/Dose Change 11/15/2022 8:35 AM EDT 0.4 mcg/kg/hr 4.44 mL/hr Restarted 11/15/2022 8:19 AM EDT 0.2 mcg/kg/hr 2.22 mL/hr ePHEDrine sulfate (5 mg/mL) multi-dose injection Intravenous, PRN, Starting on Sun11/15/22 at 0952, Until Sun11/15/22 at 1122, Anesthesia Intra-op, Routine Given 11/15/2022 9:52 AM EDT 5 mg fentaNYL (pf) (50 mcg/mL) multi-dose injection Intravenous, PRN, Starting on Sun11/15/22 at 0802, Until Sun11/15/22 at 1122, Anesthesia Intra-op, Routine Given 11/15/2022 8:32 AM EDT 75 mcg Given 11/15/2022 8:02 AM EDT 25 mcg glycopyrrolate (Robinul) (0.2 mg/mL) multi-dose injection Intravenous, PRN, Starting on Sun11/15/22 at 0824, Until Sun11/15/22 at 1122, Anesthesia Intra-op, Routine Given 11/15/2022 8:24 AM EDT 0.2 mg lactated ringers infusion Intravenous, CONTINUOUS PRN, Starting on Sun11/15/22 at 0741, Until Sun11/15/22 at 1123, Anesthesia Intra-op New Bag 11/15/2022 7:41 AM EDT lidocaine (pf) (Xylocaine) (20 mg/mL) 2% injection syringe Intravenous, PRN, Starting on Sun11/15/22 at 0802, Until Sun11/15/22 at 1122, Anesthesia Intra-op, Routine Given 11/15/2022 8:27 AM EDT 50 mg Given 11/15/2022 8:02 AM EDT 50 mg midazolam (pf) (Versed) (1 mg/mL) multi-dose injection Intravenous, PRN, Starting on Sun11/15/22 at 0758, Until Sun11/15/22 at 1122, Anesthesia Intra-op, Routine Given 11/15/2022 8:02 AM EDT 0.5 mg Given 11/15/2022 7:58 AM EDT 0.5 mg ondansetron (pf) (Zofran) (2 mg/mL) injection Intravenous, PRN, Starting on Sun11/15/22 at 1053, Until Sun11/15/22 at 1124, Anesthesia Intra-op, Routine Given 11/15/2022 10:53 AM EDT 8 mg propofoL (Diprivan) (10 mg/mL) infusion Intravenous, CONTINUOUS PRN, Starting on Sun11/15/22 at 0802, Until Sun11/15/22 at 1122, Anesthesia Intra-op, Routine Rate/Dose Change 11/15/2022 10:25 AM EDT 40 mcg/kg/min 10.656 mL/hr Rate/Dose Change 11/15/2022 9:41 AM EDT 30 mcg/kg/min 7.99 2 mL/hr Rate/Dose Change 11/15/2022 9:08 AM EDT 50 mcg/kg/min 13.3 2 mL/hr propofoL (Diprivan) 10 mg/mL bolus injection (Anesthesia) Intravenous, PRN, Starting on Sun11/15/22 at 0802, Until Sun11/15/22 at 1122, Anesthesia Intra-op Given 11/15/2022 8:30 AM EDT 50 mg Given 11/15/2022 8:04 AM EDT 50 mg Given 11/15/2022 8:02 AM EDT 50 mg rocuronium (Zemuron) (10 mg/mL) multi-dose injection Intravenous, PRN, Starting on Sun11/15/22 at 0830, Until Sun11/15/22 at 1122, Anesthesia Intra-op, Routine Given 11/15/2022 9:08 AM EDT 20 mg Given 11/15/2022 8:30 AM EDT 20 mg sugammadex (Bridion) 100 mg/mL injection Intravenous, PRN, Starting on Sun11/15/22 at 1053, Until Sun11/15/22 at 1124, Anesthesia Intra-op, Routine Given 11/15/2022 10:53 AM EDT 200 mg documented in this encounter Care Teams Emergency Dispatcher Relationship Specialty Start Date End Date Dev, Tita Butt APRN [address] [place] [address] PCP - General Internal Medicine 05/15/22 documented as of this encounter
--- OUTSIDE RECORDS SUMMARY | 2023-12-08 19:56 | XMS_ITS | Encounter Summary ---
Author Organization [facility] [place] [address] Care Team Providers Care Cage Tender Name Role Phone Tita Méndez APRN Primary Care Provider +1- [phone] Encounter Details Date Type Department Care Team (Latest Contact Info) Description 11/01/2022 Travel Social History Tobacco Use Types Packs/Day [...] on filedocumented in this encounter Care Teams Cage Tender Relationship Specialty Start Date End Date Tita Méndez APRN [address] [place], [place] [address] PCP - General Internal Medicine 05/15/22 documented as of this encounter
--- OUTSIDE RECORDS SUMMARY | 2023-12-08 19:56 | XMS_ITS | Encounter Summary ---
Author Organization [facility] [place] [address] Care Team Providers Care Event Decorator Name Role Phone Dev, Tita Butt APRN Primary Care Provider +1- [phone] Reason for Visit * Speech Therapy (Routine) - Closed Specialty Diagnoses / Procedures Referred By Shirley cuevas Referred To Contact Speech Therapy Diagnoses Osteoradionecrosis of jaw Toño Pacheco MD [facility] [place] [address] Roberth Rojas, HOOKMAN [facility] PHYSICAL MEDICINE & [place] [address] Referral ID Status Reason Start Date Expiration Date V isits Requested Visits Authorized [id number] Closed Evaluate and Treat 09/08/2022 09/08/2023 30 30 Encounter Details Date Type Department Care Team (Latest Contact Info) Description 11/09/2022 10:00 AM EDT Office [place] [address] Roberth Rojas, HOOKMAN Oropharyngeal dysphagia Social History Tobacco Use Types Packs/Day Years [...] as of this encounter Miscellaneous Notes * Treatment - Therapy - Roberth Rojas, HOOKMAN - 11/09/2022 10:00 AM EDT Speech-Language Pathology Fiberoptic Endoscopic Evaluation of Swallowing (FEES) Patient Name: Theresa Hollis Date of : 1970 Referring MD: Toño Pacheco Date Seen by MD: 11/09/22 Diagnosis: Dysphagia Date of Onset: 09/14/22 Date of Evaluation: 11/09/2022 Total Treatment Time: 45 minute treatment Certification Period: N/A Total Timed Code Treatment: 0 minutes KX Modifier used beginning date: N/A History: Pt. is Theresa Hollis is a 52 y.o. 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 Admitted on 08/21/2022 for tracheostomy, neck exploration, mandible excision, and fibula free flap reconstruction. Trach now decannulated. PEG placed on 09/05/22. FEES completed on 09/07/22 with ENT and found deep penetration and likely aspiration with nectar-thick liquids as well as significant pooled secretions. Pt has been completing a swallow exercise program for approximately 1.5 months including PO trials with thin liquids, and thickened liquids. FEES assessment on 10/26/22 was poorly tolerated and aspiration was witnessed with nectar-thick liquids. Trials of other textures were not conducted as pt requested removal of scope. Pt now presents for follow-up with ENT and repeat FEES assessment. 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 Hyperlipidemia Hypothyroidism Time out was completed identifying the following: patient name, medical record number, agreement onprocedure to be completed, correct patient positioning, and safety precautions. S: Pt. contacted, alert. Pt reports continuing honey-thick liquids orally. She reports taking approximately 40 ounces of honey-thick liquids daily. She reports this is tolerated well. Occasional cough with honey-thick liquids, but consistent with her baseline. Theresa denies increased tracheal secretions, temperature spikes, chills. Pt. denies pain at this time. O: Current diet: honey-thick liquids for exercise and practice. Caloric intake is mostly via G-tube. Respiratory Status: Remains on RA. Pt denies any symptoms of pulmonary deterioration. Feeding / Oral Care Status: Independent. Oral / Laryngeal Mechanism Clinical Assessment: Lingual: Reduced protrusion and ROM in all planes. Baseline. Labial: Adequate labial seal. Vocal fold function and airway protection: Vocal quality remains clear. See below. ENT passed endoscope passed through left nares. Bolus Presentation(s) Thin liquid: none. [place] consistency thickened liquid: none. Honey consistency thickened liquid: 2, 2/3 tsp each. Puree: None. Dysphagia Soft: none. Oral Preparatory Phase: Mastication: N/A Oral Transit: Decreased control. Increased effort is present. Bolus Cohesion: Decreased. Labial Seal / Loss: Negative. Oral Stasis: Negative. Pharyngeal Phase Structural Assessment: Velar closure: Elevation is present. Base of Tongue Retraction: Reduced. Pharyngeal Wall Medialization: Reduced. Laryngeal / Vocal Cord Closure: Paretic left vocal cord. Right cord compensates to produce phonation. See ENT note for full details. Secretions: Little to no secretions prior to PO trials. Then after PO trials, clear salivation is noted in moderate to severe amounts in valleculae, bilateral pyriform sinuses and interarytenoid space. Pharyngeal Phase Swallowing Assessment: Premature Spillage: Present with honey-thick liquid to pyriform sinuses prior to swallow initiation. Initiation: Delayed. Multiple swallows initiated per bolus. Epiglottic Inversion: Absent. Base of Tongue Retraction: Weak. Does not contact posterior pharyngeal wall. Pharygneal Residue: Moderate to severe in valleculae. Mild in the lateral channels, Moderate in bilateral pyriforms and interarytenoid space. Penetration: Present both during and after swallows. Aspiration: Present with honey-thick liquids. Cough: Inconsistent cough reflex with aspiration. Esophageal Phase: Return of Bolus Material to Pharynx: negative. Appears to be WFL, No overt clinical s/s of esophageal phase dysphagia noted during this evaluation. Modifications Attempted: Multiple swallows. A: Summary: Pt continues to demonstrate decreased oral manipulation of thickened liquids, this time honey-thicktexture. Pharyngeal swallow is again significant for onset delay, weak structural movement resulting in penetration and aspiration both during and following the primary swallow. Despite continued objective evidence of aspiration with thickened liquids, pt continues to report taking 40 ounces of thickened liquids without evidence of pulmonary compromise. She reports no increase in tracheal secretion or difficulty breathing. She denies temperature spikes and chills after feeding. Additionally, ptreports she feels her swallow is at her baseline function. Given the difference between instrumental evaluation and clinical presentation, one might conclude that pt has been a chronic aspirator prior to her latest surgery. We discussed how to proceed and pt agrees to proceed cautiously but slowly advance diet little by little and observe for tolerance of likely aspiration. We discussed advancingdiet to include both honey-thick liquids and nectar-thick liquids and observe for any deteriorationin pulmonary function. If deterioration is observed, pt is to stop taking PO trials. Pt indicated comfort with this plan. Will plan to follow-up in approximately 2 weeks. Dx: Moderate oral dysphagia with severe pharyngeal dysphagia. Education: Spoke with pt. re: above results and below recommendations. P: RECOMMENDATIONS: Contnue with G-tube feedings a primary nutritional source. Ok to continue with PO trial of honey-thick and nectar-thick liquids. Small sips. Swallow multiple times per bolus. Continue to monitor for signs of compromised pulmonary health. (Running of temperature, increased secretions, diffiuculty breathing. ) Frequency of care: Speech Pathology to follow for 6 treatment visits. Next visit is planned in approximately 2 weeks time. Pt./family are in agreement with treatment plan. Short-Term Goals: Pt will tolerate least restrictive diet without evidence of dysphagia / aspiration. Pt will independently demonstrate tongue-base retraction exercises with good execution Pt will independently demonstrate larynegeal elevation exercises with good execution. Pt / caregiver will be independent with aspiration precautions, diet modifications, and safe swallowing strategies. Long-Term Goal: Pt will maintain hydration / nutrition with optimal safety and efficiency. Thank you for this consult with this patient. Please feel free to page me with any questions or concerns. Roberth Rojas MS, CCC-HOOKMAN Speech Pathology/Rehabilitation Medicine Pager: # [phone] documented in this encounter Plan of Treatment Not on file documented as of this encounter Visit Diagnoses Diagnosis Oropharyngeal dysphagia Dysphagia, oropharyngeal phase documented in this encounter Care Teams Event Decorator Relationship Specialty Start Date End Date Dev, Tita Butt APRN [address] [facility] [address] [place] [address] PCP - General Internal Medicine 05/15/22 documented as of this encounter
--- OUTSIDE RECORDS SUMMARY | 2023-12-08 19:56 | XMS_ITS | Encounter Summary ---
[place] [address] Care Team Providers Care Security Shift Manager Name Role Phone DevTita APRN Primary Care Provider +1- [phone] Encounter Details Date Type Department Care Team (Late st Contact Info) Description 10/23/2022 Telephone [place] [address] Nicki Miles Social History Tobacco [...] * Telephone Encounter - Nicki Miles - 10/23/2022 10:07 AM EDT Pt returned call to confirm appt updates. * Telephone Encounter - Nicki Miles - 10/23/2022 9:47 AM EDT LVM for pt requesting a return call in regards to 10/26 DM bump. Per Guy Rojas he would like to keepthe appt on 10/26 for FEES by himself. DM wanted to see her within 2 weeks. documented in this encounter Plan of Treatment Not on file documented as of this encounter Visit Diagnoses Not on filedocumented in this encounter Care Teams Security Shift Manager Relationship Specialty Start Date End Date Dev, Tita Butt APRN [address] [facility] [address] [place] [address] PCP - General Internal Medicine 05/15/22 documented as of this encounter
--- OUTSIDE RECORDS SUMMARY | 2023-12-08 19:56 | XMS_ITS | Encounter Summary ---
Author Organization [facility] [place] [address] Care Team Providers Care Chip Loft Worker Name Role Phone Dev, Tita Butt APRN Primary Care Provider +1- [phone] Reason for Visit * Speech Therapy (Routine) - Closed Specialty Diagnoses / Procedures Referred By Shirley cuevas Referred To Contact Speech Therapy Diagnoses Osteoradionecrosis of jaw Toño Pacheco MD [facility] [place] [address] Roberth Rojas, ANESTHESIOLOGY TEACHER [facility] PHYSICAL MEDICINE & [place] [address] Referral ID Status Reason Start Date Expiration Date V isits Requested Visits Authorized [id number] Closed Evaluate and Treat 09/08/2022 09/08/2023 30 30 Encounter Details Date Type Department Care Team (Latest Contact Info) Description 10/26/2022 2:00 PM EDT Office [place] [address] Roberth Rojas, ANESTHESIOLOGY TEACHER Oropharyngeal dysphagia Social History Tobacco Use Types [...] as of this encounter Miscellaneous Notes * Initial Evaluation - Roberth Rojas, ANESTHESIOLOGY TEACHER - 10/26/2022 2:00 PM EDT Speech-Language Pathology Fiberoptic Endoscopic Evaluation of Swallowing (FEES) Patient Name: Theresa Hollis Date of : 1970 Referring MD: Toño Pacheco MD Date Seen by MD: 09/14/22 Diagnosis: Dysphagia Date of Onset: 09/14/22 Date of Evaluation: 10/26/2022 Total Treatment Time: 45 minutes Certification Period: N/a Total Timed Code Treatment: 0 minutes KX Modifier used beginning date: N/A History: Pt. is Theresa Hollis is a 52 y.o. female with a history of [id number] SCCa of the left lateral tongue s/p [...] trials with thin liquids, and thickened liquids. She now presents for follow-up and agreed to FEES assessment. Past Medical history: Past Medical [...] safety precautions. S: Pt. contacted, alert. Pt report she has been taking significant volumes of water and some espresso (both thin liquids). She denies symptoms of infection and reports decreased secretions. Pt. denies pain at this time. Pt feels her swallowing is nearing her baseline. She feels as though she has been swallowing thin liquids, thickened liquids with success and reports her swallowing feels like she is at baseline. Pt requested to terminate study after 2 swallows. O: Current diet: Remains with G-tube. She is also taking thin liquids and thickened liquids as part ofswallow exercise program. She has slowly advanced her diet to increasing volumes of thin liquids. Respiratory Status: On RA. Feeding / Oral Care Status: Independent. Oral / Laryngeal Mechanism Clinical Assessment: Lingual: Reduced protrusion and movement in all planes. (Baseline) Labial: Adequate labial seal. Velar: Velar elevation is present. Vocal fold function and airway protection: vocal quality is clear. Pt is no longer wet on her own secretions. Teeth: Plan for surgical setting of lower dentition at the end of this month. Endoscope passed through Left nares. Bolus Presentation(s) Thin liquid: None. [place] consistency thickened liquid: Tsp. X 2. Honey consistency thickened liquid: none. Puree: none. Dysphagia Soft: none. Oral Preparatory Phase: Mastication: N/A Oral Transit: Labored. Requires slight head tilt back for gravity assist. Bolus Cohesion: Decreased. Labial Seal / Loss: negative. Oral Stasis: Likely some sublingual stasis. Pharyngeal Phase Structural Assessment: Velar closure: Functional during cheek puff. Base of Tongue Retraction: Reduced during production of /bal/ with a focus on the L. Pharyngeal Wall Medialization: Decreased during high pitch E production. Laryngeal / Vocal Cord Closure: right vocal cord appears to move normally. Some movement appears hattie present with left arytenoid and cord, but is is reduced when compared to movement of the right cord. Secretions: No appreciable secretions are present throughout pharynx. Pharyngeal Phase Swallowing Assessment: Premature Spillage: Present. Initiation: Delayed. Triggers at pyriform sinuses. Epiglottic Inversion: Reduced/absent. Base of Tongue Retraction: Reduced. Pharygneal Residue: Significant aryepiglottic, bilateral pyriform sinuses and interarytenoid space pooling. With repeat swallows pt slowly clear a little of this pooling with each repeat swallow. Penetration: Occurs during the swallow inconsistently and also after the swallow from spillover from interarytenoid space. Aspiration: Present during the swallow inconsistently and also after the swallow from stasis spillover. Cough: Cough is present but weak and ineffective in clearing aspirated material. Esophageal Phase: Return of Bolus Material to Pharynx: not visualized. Appears to be WFL, No overt clinical s/s of esophageal phase dysphagia noted during this evaluation. Modifications Attempted: Multiple swallows Further modfications were not attempted as pt aborted study after 2 swallows. . A: Summary: Pt presents with decreased oral manipulation of nectar-thick liquids. Pharyngeal swallow is significant for onset delay, weak structural movement resulting in penetration and aspiration both during and following the primary swallow. Pt reports feeling as though her swallow function is much improvedand close to baseline. It is possible that pt has had a significantly compromised swallow since 2006 and potentially been an aspiration risk for some time, but has been able to live without developing pulmonary complications. We discussed how to move forward from this point. Pt is agreeable to continuing her swallow exercise program. She also wishes to continue taking thin liquids (water, espresso, etc) despite the risk of aspiration. She will continue to monitor for for signs of worsening pulmonary health and should this occur understands that plan may need to be revaluated. Will plan to follow up in approximately 2 weeks time during ENT follow-up. Dx: Moderate oral dysphagia with severe pharyngeal dysphagia. Education: Spoke with pt. re: above results and below recommendations. P: RECOMMENDATIONS: Contnue with G-tube feedings a primary nutritional source. Ok to continue with PO trial of liquids. Small sips. Swallow multiple times per bolus. Continue to monitor for signs of compromised pulmonary health. (Running of temperature, increased secretions. Frequency of care: Speech Pathology to follow for 7 treatment visits. Next visit is planned in 2 weeks time. Appointment being coordinated with ENT (same time). Pt./family are in agreement with treatment plan. [...] any questions or concerns. Roberth Rojas MS, CCC-ANESTHESIOLOGY TEACHER Speech Pathology/Rehabilitation Medicine Pager: # [phone] documented in this encounter Plan of Treatment Not on file documented as of this encounter Visit Diagnoses Diagnosis Oropharyngeal dysphagia Dysphagia, oropharyngeal phase documented in this encounter Care Teams Chip Loft Worker Relationship Specialty Start Date End Date Dev, Tita Butt APRN [address] [facility] [place] [address] PCP - General Internal Medicine 05/15/22 documented as of this encounter
--- OUTSIDE RECORDS SUMMARY | 2023-12-08 19:56 | XMS_ITS | Encounter Summary ---
Author Organization [facility] [place] [address] Care Team Providers Care Continuous Process Rotary Drum Tanner Name Role Phone DevTita APRN Primary Care Provider +1- [phone] Encounter Details Date Type Department Care Team (Late st Contact Info) Description 11/14/2022 Telephone [place] [id number] Deanne Agustin Social History Tobacco Use Types Packs/Day Years Used Date Smoking Tobacco: Never Smokeless Tobacco: Never Alcohol Use Standard Drinks/Week Comments Not Currently 0 (1 standard drink = 0.6 oz pur e alcohol) seldom, 4 drinks per year [facility] Inpatient Questions Answer Date Recorded Does [...] encounter Miscellaneous Notes * Telephone Encounter - Deanne Agustin - 11/14/2022 9:51 AM EDT ----- Message from Analisa Caban sent at 11/14/2022 9:45 AM EDT ----- Regarding: FW: Follow-up (11/22) Contact: Dr. Laguna said she does not need to follow up with us but does need to follow up with Dr. Ng's team ----- Message ----- From: Farida Fofana, RN Sent: 11/10/2022 12:48 PM EDT To: Analisa Caban Subject: FW: Follow-up (11/22) Can you catch up with Dr. Laguna on Sunday about this? I don't know why she has 2 post op appointments scheduled? ----- Message ----- From: Theresa Hollis Sent: 11/10/2022 12:10 PM EDT To: [facility] Plastic Surgery Nurse Subject: Follow-up (11/22) Dr. Laguna, Next Sunday is the surgery with you, Dr. Ng, & Dr. Pascal. I'm certainly looking forward to getting it done & returning to work on 11/21. However, when checking the Portal for another reason, I saw that I was already scheduled for an afternoon appointment follow-up appointment in Plastic Surgery on 11/22. This appointment surprised me because I thought this surgery was relatively minor & simply involved finishing up the earlier one. The medical appointment scheduler couldn't get me in on the holiday (11/20), but suggested 11/17, which would only be two days out from surgery. 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 Can this appointment wait until 12/25 (my already scheduled on ), unless serious symptoms develop? Thank you. Have a great weekend & see you on 11/15! All the bestTheresa documented in this encounter Plan of Treatment Not on file documented as of this encounter Visit Diagnoses Not on filedocumented in this encounter Care Teams Continuous Process Rotary Drum Tanner Relationship Specialty Start Date End Date Dev, Tita Butt APRN [address] [place] [address] PCP - General Internal Medicine 05/15/22 documented as of this encounter
--- OUTSIDE RECORDS SUMMARY | 2023-12-08 19:56 | XMS_ITS | Encounter Summary ---
Author Organization [facility] [place] [address] Care Team Providers Care Counter Installer Name Role Phone DevTita APRN Primary Care Provider +1- [phone] Encounter Details Date Type Department Care Team (Latest Contact Info) Description 05/11/2023 Travel Social History Tobacco Use Types Packs/Day [...] on filedocumented in this encounter Care Teams Counter Installer Relationship Specialty Start Date End Date Tita Méndez APRN [address] [place], [place] [id number] PCP - General Internal Medicine 05/15/22 documented as of this encounter
--- OUTSIDE RECORDS SUMMARY | 2023-12-08 19:56 | XMS_ITS | Encounter Summary ---
Author Organization [facility] [place] [address] Care Team Providers Care Survey Field Technician Name Role Phone Dev, Tita Butt APRN Primary Care Provider +1- [phone] Reason for Visit * Reason Comments Follow Up Surgery Encounter Details Date Type Department Care Team (Late st Contact Info) Description 09/14/2022 9:00 AM EDT Office [place] [address] Dimitry Marin PA [facility] [place] [address] Surgery follow-up Social History Tobacco Use Types [...] as of this encounter Progress Notes * Dimitry Marin PA - 09/14/2022 9:00 AM EDT Images from the original note were not included. Plastic Surgery Post Op Note CALLY Hernadez. Reason for visit: F/U status post procedure Date of surgery: 08/21/22 Procedure(s): Oromandibular reconstruction with right fibula free flap, skin graft from R thigh to right leg and submental opening (Luz Elena) Complications: None reported HPI: Patient reports she is doing well since she was discharged from the hospital. She notes some pain in her right ankle just distal to her skin graft. She otherwise has no complaints. She has been getting her nutrition from her g tube feedings. She has been up and ambulating without any issues. She has been applying aquaphor to her skin graft and her incision sites. Examination: Patient is alert, conversant, comfortable, ambulating Neck Incision: CDI, healing well No collection, no erythema, no evidence of cellulitis. Mel removed today. Chin skin graft: with good take. Appears healthy. RLE: donor site healing nicely. Skin graft with 100% take. Appears healthy. Just distal to her skingraft small amount of edema. Does not appear infected. Intaoral: healing nicely with no signs of infection. Impression: Theresa Hollis is a 52 y.o. female who was seen today for follow up after the above procedure. Please see the operative note for details. She is doing well postoperatively and healing nicely. Plan: Follow up [address] Laguna, coordinate with any other appointments she may have (will discuss with Dr. Laguna if he would like to see her sooner) Moisturize skin grafts and incision with non scented lotion. Please add PT to [facility] visits Okay to shower. Wash gently and pat dry. CALLY Baker documented in this encounter Plan of Treatment Not on file documented as of this encounter Visit Diagnoses Diagnosis Surgery follow-up Follow-up examination, following unspecified surgery documented in this encounter Care Teams Survey Field Technician Relationship Specialty Start Date End Date Dev, Tita Butt APRN [address] [facility] [address] [place] [address] PCP - General Internal Medicine 05/15/22 documented as of this encounter
--- OUTSIDE RECORDS SUMMARY | 2023-12-08 19:56 | XMS_ITS | Encounter Summary ---
Author Organization [facility] [place] [address] Care Team Providers Care Photovoltaic Solar Cell Designer Name Role Phone Tita Méndez APRN Primary Care Provider +1- [phone] Encounter Details Date Type Department Care Team (Latest Contact Info) Description 10/19/2022 Travel Social History Tobacco Use Types Packs/Day [...] on filedocumented in this encounter Care Teams Photovoltaic Solar Cell Designer Relationship Specialty Start Date End Date Tita Méndez APRN [address] [place], [place] [address] PCP - General Internal Medicine 05/15/22 documented as of this encounter
--- OUTSIDE RECORDS SUMMARY | 2023-12-08 19:56 | XMS_ITS | Encounter Summary ---
[place] [address] Care Team Providers Care Flight Engineer Inspector Name Role Phone Dev, Tita Butt APRN Primary Care Provider [phone]- [phone] Reason for Referral * Diagnostic Test (Routine) - Closed Specialty Diagnoses / Procedures Referred By Contac t Referred To Contact Radiology Diagnoses Tongue cancer Procedures IR Site Check In Recovery Room Ileana Salter PA [facility] [place] [address] [facility] [place] [address] Referral ID Status Reason Start Date Expiration Date V isits Requested Visits Authorized [id number] Closed Specialty Service Requested 10/16/2022 04/18/2024 1 1 Reason for Visit * Diagnostic Test (Routine) - Closed Specialty Diagnoses / Procedures Referred By Contac t Referred To Contact Radiology Diagnoses Tongue cancer Procedures IR Site Check In Recovery Room Ileana Salter PA [facility] [address] [place] [address] Referral ID Status Reason Start Date Expiration Date V isits Requested Visits Authorized [id number] Closed Specialty Service Requested 10/16/2022 04/18/2024 1 1 Encounter Details Date Type Department Care Team (Latest Contact Info) Description 10/17/2022 2:14 PM EDT - 10/17/2022 11:59 PM EDT Hospital [place] [address] Marck Edge MD [facility] [place] [address] Tongue cancer Discharge Disposition: Home Social History Tobacco Use Types Packs/Day Years [...] on file documented as of this encounter Medications at Time of Discharge Medication Sig Dispensed Refills Start Date End Date albuteroL 90 mcg/actuation HFA Aerosol Inhaler Inhale 2 puffs into the lungs every 4 hours as needed. 05/04/2022 ibuprofen (ADVIL;MOTRIN) 100 mg/5 mL Suspension Take by mouth every 4 hours as needed for Fever. glycopyrrolate (RobinuL) 1 mg tablet Take 1 tablet by mouth 3 times daily. 90 tablet 1 09/14/2022 11/14/2022 scopolamine (Transderm-Scop) 1 mg over 3 days patch 3 day Change 1 patch on the skin every 3 days. 10 patch 12 09/14/2022 11/14/2022 oxyCODONE (Roxicodone) 5 mg tablet 1 tablet by Per G Tube route every 4 hours as needed for Pain. 20 tablet 09/08/2022 10/26/2022 chlorhexidine (Peridex) 0.12 % Mouthwash Take 15 mLs by mouth 2 times daily. Swish and spit. Do not swallow. 120 mL 09/08/2022 11/14/2022 levothyroxine (Synthroid) 100 mcg tablet TAKE ONE TABLET BY MOUTH EVERY DAY 90 tablet 3 07/31/2022 03/22/2023 fluocinolone and shower cap ([place]-Smoothe/FS Scalp Oil) 0.01 % Oil Apply topically to scalp under shower cap nightly for up to 2 weeks for flares then 1-3 times weekly prn maintenance. 118 mL 3 03/23/2021 11/14/2022 documented as of this encounter Progress Notes * Easton Pinedo PA - 10/17/2022 11:59 PM EDT INTERVENTIONAL RADIOLOGY Site Check Note Date of visit: 10/17/2022 Procedure(s): Gastrostomy Tube placement 09/05/21 Complaint: Localized discomfort with the G-tube position/cuff The patient presented for site check in IR recovery today for evaluation of her G-tube. She notes that her cuff causes some discomfort when she notices it to tip forward putting additional pressure on the lower part of the cuff (inferior margin of G-tube insertion site). She denies discharge or overt pain. The G-tube has been functioning without difficulty but a visiting nurse had suggested she should have her balloon checked as well. Physical Exam GEN No distress, A&O CARDS Acyanotic LUNGS Non-labored ABD Non tender, nondistended. Drains/Tubes: G-tube: cuff in place at 4cm location with no erythema or discharge or ttp with palpation. No gastropexy sutures in place. The patient demonstrated various positions sitting/standing where her G-tubecuff causes some mild discomfort. After discussion, the patient decided to have the cuff pushed away from the skin to allow a bit more room for patient movement without feeling tight to skin. The cuff was positioned approximately 4.5cm with improvement. The balloon was evaluated and found to have 3.5cm of fluid and intact. The G-tube flushed easily with water. Assessment/Plan: 52 y.o. female with known oral cancer who has had some discomfort with her G-tube (placed 09/05/22) found to have a cuff that was a bit tight for the patient's activity level and thuswas adjusted to provide more room for patient movement and decreased discomfort. The balloon and G-tube were found to be functional. The patient understands the importance of RTC should she develop any further concerns/questions. documented in this encounter Plan of Treatment Not on file documented as of this encounter Procedures Procedure Name Priority Date/Time Associated Diagnosis Comments IR SITE CHECK IN RECOVERY ROOM Routine 10/17/2022 2:59 PM EDT Tongue cancer documented in this encounter Results * IR Site Check In Recovery Room (10/17/2022 2:59 PM EDT) Narrative [facility] - 10/17/2022 2:59 PM EDT This exam is auto-finalizing. No interpretation was done. Marck Edge MD IMG IR ORDERABLES [place], [place] documented in this encounter Visit Diagnoses Diagnosis Tongue cancer Malignant neoplasm of tongue, unspecified site documented in this encounter Care Teams Flight Engineer Inspector Relationship Specialty Start Date End Date Dev, Tita Butt APRN [address] [place] [address] PCP - General Internal Medicine 05/15/22 documented as of this encounter
--- OUTSIDE RECORDS SUMMARY | 2023-12-08 19:56 | XMS_ITS | Encounter Summary ---
[place] [address] Care Team Providers Care Associate Professor Of Biology Name Role Phone Dev, Tita Butt APRN Primary Care Provider [phone]- [phone] Encounter Details Date Type Department Care Team (Latest Contact Info) Description 10/17/2022 2:10 PM EDT Laboratory Appointment Lab [address] [place] [address] Hypothyroidism (acquired) Social History Tobacco [...] Name Priority Date/Time Associated Diagnosis Comments TSH CASCADE Routine 10/17/2022 2:05 PM EDT Hypothyroidism (acquired) T4, FREE Routine 10/17/2022 2:05 PM EDT documented in this encounter Results * T4, free (10/17/2022 2:05 PM EDT) Free T4 1.40 0.93 - 1.70 ng/dL [facility] Comment: Reference Interval (ng/dL): Females: ??First Trimester: 0.97-1.68 ??Second Trimester: 0.77-1.51 ??Third Trimester: 0.77-1.49 Blood 10/17/2022 2:05 PM EDT 10/17/2022 2:56 PM EDT Narrative Resulting Agency Comment Spec In Lab Evelio Gimenez MD CHEMISTRY ORDERAB LES Performing Organization Address [facility] Co de Phone Number [facility] [place] [address] * (ABNORMAL) TSH [place] (10/17/2022 2:05 PM EDT) Thyroid Stimulating Hormone 8.45(H) 0.27 - 4.20 mcIU/mL [facility] Comment: Reference Interval (mcIU/mL): Females: ??First Trimester: 0.23-3.88 ??Second Trimester: 0.22-3.90 ??Third Trimester: 0.44-4.66 Blood 10/17/2022 2:05 PM EDT 10/17/2022 2:48 PM EDT Narrative Resulting Agency Comment Spec In Lab Evelio Gimenez MD CHEMISTRY ORDERAB LES Performing Organization Address [facility] Co de Phone Number [facility] [place] [address] documented in this encounter Visit Diagnoses Diagnosis Hypothyroidism (acquired) Unspecified hypothyroidism documented in this encounter Care Teams Associate Professor Of Biology Relationship Specialty Start Date End Date Dev, Tita Butt APRN [address] [place] [address] PCP - General Internal Medicine 05/15/22 documented as of this encounter
--- OUTSIDE RECORDS SUMMARY | 2023-12-08 19:56 | XMS_ITS | Encounter Summary ---
Author Organization [facility] [place] [address] Care Team Providers Care Applications Scientist Name Role Phone Tita Méndez APRN Primary Care Provider [phone]- [phone] Encounter Details Date Type Department Care Team (Latest Contact Info) Description 10/17/2022 Travel Social History Tobacco Use Types Packs/Day [...] on filedocumented in this encounter Care Teams Applications Scientist Relationship Specialty Start Date End Date Tita Méndez APRN [address] [place], [place] [id number] PCP - General Internal Medicine 05/15/22 documented as of this encounter
--- OUTSIDE RECORDS SUMMARY | 2023-12-08 19:56 | XMS_ITS | Encounter Summary ---
[place] [address] Care Team Providers Care Motorboat Mechanic Inboard Name Role Phone Dev, Tita Butt APRN Primary Care Provider +1- [phone] Reason for Visit * Auth/Cert (Routine) Specialty [...] LESS, MOUTH (WRVU 8.6) Keyur Ng MD [facility] [place] [address] [facility] Referral ID Status Reason Start Date Expiration Date Visits Re quested Visits Authorized [id number] 1 1 Encounter Details Date Type Department Care Team (Latest Contact Info) Description 11/15/2022 6:07 AM EDT - 11/15/2022 12:51 PM EDT Hospital [place] [address] Keyur Ng MD [facility] [place] [address] Osteoradionecrosis of jaw; Status post surgery Discharge Disposition: Home Social History Tobacco Use [...] EDT Inhaled Oxygen Concentration - - Weight 44.4 kg (97 lb 14.4 oz) 11/15/2022 6:21 A M EDT Height 157.5 cm (5' 2) 11/15/2022 6:21 AM EDT Body Mass Index 17.91 11/15/2022 6:21 AM EDT documented in this encounter Discharge Instructions * Patient Instructions* Keyur Ng MD - 11/15/2022 11:04 AM EDT Non- chew diet Do not brush prosthesis Use warm salt water rinse for cleansing the tissue and brush upper teeth as normal Avoid Peridex rinse as it can stain the lower denture prosthesis It would be okay to swab underneath the denture near the implant sites with Peridex soaked Q-tips. Our office with any questions or problems or send a [employer] message. Keyur Ng MD documented in this encounter Medications at Time of Discharge Medication Sig Dispensed Refills Start Date End Date albuteroL 90 mcg/actuation HFA Aerosol Inhaler Inhale 2 puffs into the lungs every 4 hours as needed. 05/04/2022 hydrocortisone 2.5 % Cream 11/07/2022 triamcinolone (Kenalog) 0.1 % Ointment 11/07/2022 ibuprofen (ADVIL;MOTRIN) 100 mg/5 mL Suspension Take by mouth every 4 hours as needed for Fever. levothyroxine (Synthroid) 112 mcg tablet Take 1 tablet by mouth daily. 90 tablet 3 05/27/2023 07/23/2023 levothyroxine (Synthroid) 125 mcg tablet Take 1 tablet by mouth daily. 90 tablet 3 03/22/2023 05/27/2023 levothyroxine (Synthroid) 100 mcg tablet TAKE ONE TABLET BY MOUTH EVERY DAY 90 tablet 3 07/31/2022 03/22/2023 documented as of this encounter H&P Notes * Jennifer Mcneill MD - 11/15/2022 7:26 AM EDT Patient Name: Theresa Hollis Patient Age: 52 y.o. Birthdate: 1970 Admit date: (Not on file) Attending Physician: Keyur Ng MD Plastic Surgery Preoperative H&P: Patient Name: Theresa Hollis Patient : 1970 Today's Date: 11/15/2022 Theresa Hollis is a 52 y.o. 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 No changes since last seen. 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 Hyperlipidemia Hypothyroidism Past Surgical History: Procedure Laterality Date GLOSSECTOMY Right partial IR G-TUBE PLACEMENT 09/05/2022 IR G-Tube Placement 09/05/2022 Francisco Oliver MD [facility] INTERVENTIONL RAD LYMPHADENECTOMY SND 1-5 PERCUTANEOUS GASTROSTOMY N/A 09/05/2022 PERCUTANEOUS GASTROSTOMY performed by Francisco Oliver MD at [facility] [place] PRO ADJ TISS XFER HEAD, FAC, HAND <10SQCM 08/21/2022 ADJ.TISSUE TRANSFER, REARRANGEMENT, 10SQ.CM OR LESS, NECK (WRVU 8.6) performed by Cheo Laguna MDat [facility] MAIN OR PRO BONE BIOPSY,TROCAR/NEEDLE SUPERF Left 05/06/2014 BIOPSY BONE, TROCAR OR NEEDLE, SUPERFICIAL, MANDIBLE performed by Alfred Vital MD at [facility] [place] PRO BONE-SKIN GRAFT, MICROVASCULAR 08/21/2022 @FLAP, FREE OSTEOCUTANEOUS W MICROVASC, FIBULA (WRVU 45.43) performed by Cheo Laguna MD at [facility] MAIN OR PRO CERVICAL LYMPHADECTOMY MODIFIED RADICAL NECK DISSECTION Right 08/21/2022 @CERVICAL LYMPHADENECTOMY (MODIFIED RADICAL NECK DISSECTION)-JANA , ROBOTIC (WRVU 23.95) performed by Roberth Lee MD at [facility] MAIN OR PRO DEBRIDEMENT BONE MUSCLE &/FASCIA 20 SQ CM/< Bilateral 11/17/2019 DEBRIDEMENT SKIN, SUBCU, MUSCLE, BONE, HEAD/NECK (WRVU 4.1) performed by Keyur Ng MD at [facility] MAIN OR PRO EXCISION OF BONE, LOWER JAW Bilateral 08/21/2022 EXCISION OF BONE, MANDIBLE (WRVU 10.03) performed by Roberth Lee MD at [facility] MAIN OR PRO IMPRESSION & PREPARATION MANDIBULAR RESECTION PROSTHESIS N/A 08/21/2022 IMPRESSION AND CUSTOM PREPARATION,MANDIBULAR RESECTION PROSTHESIS (WRVU 22.85) performed by Keyur Ng MD at [facility] MAIN OR PRO INJECTION PLATELET PLASMA WITH IMAGE, HARVEST/PREP 11/17/2019 INJECTION(S), PLATELET RICH PLASMA, ANY SITE, INCLUDING IMAGE GUIDANCE, HARVESTING AND PREPARATION WHEN PERFORMED performed by Keyur Ng MD at [facility] MAIN OR PRO RECONSTR JAW, FULL ENDO IMPLNT N/A 08/21/2022 RECONSTRUCT MANDIBLE OR MAXILLA, ENDOSTEAL IMPLANT, COMPLETE (WRVU 18.77) performed by Keyur gN MD at [facility] MAIN OR PRO RECONSTR MANDIBLE, BONE PLATE 08/21/2022 RECONSTRUCT MANDIBLE, EXTRAORAL, W/ TRANSOSTEAL BONE PLATE (WRVU 13.62) performed by Cheo Laguna MD at [facility] MAIN OR PRO REMOVAL ERUPTED TOOTH WITH ELEVATION OF MUCOPERIOSTEAL FLAP N/A 05/06/2014 SURGICAL EXTRACTIONS REQUIRING ELEVATION OF MUCOPERIOSTEAL FLAP AND REMOVAL OF BONE OR SECTION OF TOOTH performed by Alfred Vital MD at [facility] MAIN OR PRO REMOVAL ERUPTED TOOTH WITH ELEVATION OF MUCOPERIOSTEAL FLAP Bilateral 11/17/2019 SURGICAL EXTRACTIONS REQUIRING ELEVATION OF MUCOPERIOSTEAL FLAP AND REMOVAL OF BONE OR SECTION OF TOOTH (WRVU 1.09) performed by Keyur Ng MD at [facility] MAIN OR PRO SPLIT GRFT TRUNK, ARM, LEG <100SQCM N/A 08/21/2022 SPLIT THICK SKIN GRAFT,100 SQ CM OR LESS, LEGS (WRVU 9.9) performed by Cheo Laguna MD at [facility] MAIN OR PRO TRACHEOSTOMY, PLANNED N/A 08/21/2022 TRACHEOSTOMY, PLANNED (WRVU 5.56) performed by Roberth Lee MD at [facility] MAIN OR SKIN GRAFT Family History Problem Relation Age of Onset Breast Cancer Maternal Grandmother Eczema Mother Amblyopia Paternal Uncle Strabismus Neg Hx Macular Degeneration Neg Hx Glaucoma Neg Hx Social History Socioeconomic History Marital status: Spouse name: Not on file Number of children: Not on file Years of education: Not on file Highest education level: Not on file Occupational History Not on file Tobacco Use Smoking status: Never Smokeless tobacco: Never Vaping Use Vaping Use: Never used Substance and Sexual Activity Alcohol use: Not Currently Comment: seldom, 4 drinks per year Drug use: No Sexual activity: Not Currently control/protection: Surgical Other Topics Concern Not on file Social History Narrative Not on file Social Determinants of Health Financial Resource Strain: Not on file Food Insecurity: Not on file Transportation Needs: Not on file Physical Activity: Not on file Housing Stability: Not on file Allergies Allergen Reactions Tylenol [Acetaminophen] Anaphylaxis Allergenic Kiqcmry-Xrhg-Ecsad Itching Applesauce Peanut Itching Benzocaine Made pt tongue red and angry. Irritant reaction - allergy testing negative Birch Other (See Comments) Birch pollen: wheezing and throat constriction Soy Itching Review of systems: As per HPI, otherwise non-contributory. Exam: General: NAD Resp: CTAB CV: normal rate, regular rhythm A/P: Theresa Hollis is a 52 y.o. female with history of oral cancer and osteoradionecrosis of themandible s/p free fibula flap who presents today for vestibuloplasty. - Proceed to OR. The risks, benefits and indications were reviewed with the patient and there remains an indication for surgery. Consent signed. Jennifer Mcneill MD Plastic Surgery Resident P# [phone] * Keyur Ng MD - 11/15/2022 7:10 AM EDT The patient's history and physical exam have been reviewed and completed. There has been no interval change. CV: regular rate and rhythm without peripheral edema Lungs:non labored breathing Oral exam: site mucosalized, no external erythema, CARITO 20mm, implant healing caps visualized on 3 fixtures Plan is to vestibuloplasty with insertion of prosthesis Dparq/consent obtained. Risks reviewed and see consent for details. Keyur Ng MD, DMD documented in this encounter Miscellaneous Notes * Op Note - Keyur Ng MD - 11/15/2022 8:36 AM EDT [facility] Operative Note Patient Name: Theresa Hollis : [id number] MR#: [id number] Case Date: 11/15/2022 Surgeon: Surgeon(s) and Role: * Keyur Ng MD - Primary Dr. Luz Elena Pascal Preoperative diagnosis: status post jaw reconstruction with fibula free flap for osteoradionecrosis Postoperative diagnosis: * No post-op diagnosis entered * Procedure(s) (LRB): VESTIBULOPLASTY,ENTIRE ARCH (WRVU 16.8) (Bilateral) plus insertion of obturator/prosthesis. Surgical extraction of # Anesthesia: Anesthesia type not filed in the log. Estimated Blood Loss: Specimens removed during surgery: * No orders in the log * Drains: * No LDAs found * Surgical Closure: Primary Closure - skin incision is completely closed without any wires, juan ramon, drains or other devices Disposition: awakened from anesthesia, extubated and taken to the recovery room in a stable condition, having suffered no apparent untoward event. Condition: doing well without problems (Please see the Surgical Encounter Summary for any Implant and Specimen details pertinent to this patient.) HPI/Surgical Indications: See previous preop History and Physical for full details. Procedure Description: Patient identified in the preop holding area history and physical is reviewed she was cleared by anesthesia to undergo the procedure. She is brought to the OR room #3 placed on the OR table in a supine position. She underwent a nasal fiberoptic awake intubation. ET tube was secured. Oropharynx was suctioned and intraoperative examination anesthesia was performed. Dr. Pascal was present to help with converting the denture and for intraoperative denture evaluation. I also reviewed with Dr. Laguna who was present to assess the wound and flap instability of the jawbone reconstruction for intraoperative guidance. All of the implants appear to be stable and the mucosa healed well with good mucobuccal fold. Attention was turned to all 6 implant fixtures and the healing caps were removed and the multiunit abutments were evaluated and tested and all torqued to 20 N centimeters. The prosthesis wasevaluated and tissue overlying the multiunit abutments was modified as part of the vestibuloplasty procedure. Titanium 9.5 mm ATT temporary copings were placed on the lower right to implant fixtures and the midline to the right implant fixture. The prosthesis was evaluated in the path of insertion was not possible without drilling out more acrylic into the prosthesis and the 2 lower left titaniumcopings that were alluded to the prosthesis were removed and the area was adjusted so the path of areduction was possible and passive fit of the denture overlying the temporary copings was obtained.Once this was obtained the patient was placed into an ideal occlusion and chair side composite resin was placed into the buccal access holes and cured and then using Arash tape it was placed into the all the titanium copings and composite resin was floated over top of the area. It should be known that tooth #31 and tooth #15 were surgically extracted prior to seeding the prosthesis in order to give access. Also these teeth had generalized caries and were not restorable and were irritating the local tissue. Platelet rich fibrin was drawn before the case and utilized in each extraction socket m ultiple 3-0 chromic sutures were used for hemostasis. And also to secure the platelet rich fibrin. Once the prosthesis was included occlusal adjustment was performed and good balance occlusion was appreciated. There was no evidence of purulence noted and good fit of the titanium copings was achieved. Should be known that the denture fractured on the most distal and when adjusting the access hole and a healing cap was placed on the most lower right implant fixture. Also the most anterior left implant picture was not secured to the prosthesis. All needle counts and sponge counts correct and hemostasis obtained. Surgical Infection Prevention Bundle Used? N/A Attestation: Case Date: 11/15/2022 I performed this procedure without the involvement of a resident. Keyur Ng MD 11/15/2022 documented in this encounter Plan of Treatment Not on file documented as of this encounter Procedures Procedure Name Priority Date/Time Associated Diagnosis Comments Reconstruc Mouth Entire Arch (00962) Yes 11/15/2022 7:47 AM EDT Osteoradionecrosis of jaw Status post surgery VESTIBULOPLASTY,ENTI RE ARCH Routine 11/15/2022 6:09 AM EDT Osteoradionecrosis of jaw Status post surgery IMPLANTABLE DEVICES SCAN 11/15/2022 12:00 AM EDT documented in this encounter Results * SCAN DOC: IMPLANTABLE DEVICES (11/15/2022 12:00 AM EDT) Narrative 11/15/2022 12:00 AM EDT Ordered by an unspecified provider. Scanning Provider MEDIA MGR SCAN EXT O RDR/RSLT documented in this encounter Visit Diagnoses Diagnosis Osteoradionecrosis of jaw Other specified disease of the jaws Status post surgery documented in this encounter Administered Medications Inactive Administered Medications - up to 3 most recent administrations Medication Order MAR Action Action Date Dose Rate Site diphenhydrAMINE (Benadryl) capsule 25 mg 25 mg, Oral, EVERY 6 HOURS PRN, Starting on Sun11/15/22 at 0703, Until Sun11/15/22 at 1451, Itching, Routine documented in this encounter Active and Recently Administered Medications Times are shown in EDT. PRN Medication Order 11/13/2022 11/14/2022 11/15/2022 BUpivacaine-EPINEPHrine (Marcaine-epiNEPHrine) 0.25 %-1:200,000 injection (CANCELED) PRN, Starting on Sun11/15/22 at 0855, Until Sun11/15/22 at 1451, Intra-Operative (Intra-Procedure), Routine 0855 (Given - Provid er: Keyur Ng MD)1018 (Given - Provider: Keyur Ng MD) diphenhydrAMINE (Benadryl) capsule 25 mg 25 mg, Oral, EVERY 6 HOURS PRN, Starting on Sun11/15/22 at 0703, Until Sun11/15/22 at 1451, Itching, Routine documented in this encounter Care Teams Motorboat Mechanic Inboard Relationship Specialty Start Date End Date Dev, Tita Butt APRN [address] [place] [address] PCP - General Internal Medicine 05/15/22 documented as of this encounter
--- OUTSIDE RECORDS SUMMARY | 2023-12-08 19:56 | XMS_ITS | Encounter Summary ---
Author Organization [facility] [place] [address] Care Team Providers Care Rigger Chief Name Role Phone Dev, Tita Butt APRN Primary Care Provider +1- [phone] Reason for Referral * Diagnostic Test (Routine) - Closed Specialty Diagnoses / Procedures Referred By Shirley cuevas Referred To Contact Radiology Diagnoses Tongue cancer Procedures IR Site Check In Recovery Room Ileana Salter PA [facility] [place] [place] [address] [facility] [place] [address] Referral ID Status Reason Start Date Expiration Date V isits Requested Visits Authorized [id number] Closed Specialty Service Requested 10/16/2022 04/18/2024 1 1 Encounter Details Date Type Department Care Team (Late st Contact Info) Description 10/16/2022 [place] [address] Ileana Salter PA [facility] [place] [place] [address] Tongue cancer Social History Tobacco Use Types Packs/Day Years [...] on file documented as of this encounter Results * IR Site Check In Recovery Room (10/17/2022 2:59 PM EDT) Narrative [facility] - 10/17/2022 2:59 PM EDT This exam is auto-finalizing. No interpretation was done. Marck Edge MD IMG IR ORDERABLES [place], [place] documented in this encounter Visit Diagnoses Diagnosis Tongue cancer Malignant neoplasm of tongue, unspecified site Tongue cancer Malignant neoplasm of tongue, unspecified site documented in this encounter Care Teams Rigger Chief Relationship Specialty Start Date End Date Dev, Tita Butt APRN [address] [place] [address] PCP - General Internal Medicine 05/15/22 documented as of this encounter
--- OUTSIDE RECORDS SUMMARY | 2023-12-08 19:56 | XMS_ITS | Encounter Summary ---
Author Organization [facility] [place] [address] Care Team Providers Care Consumer Affairs Specialist Name Role Phone Dev, Tita Butt APRN Primary Care Provider +1- [phone] Reason for Visit * Speech Therapy (Routine) - Closed Specialty Diagnoses / Procedures Referred By Shirley cuevas Referred To Contact Speech Therapy Diagnoses Osteoradionecrosis of jaw Toño Pahceco MD [facility] [place] [address] Roberth Rojas, SETTER AUTOMATIC SPINNING LATHE [facility] PHYSICAL MEDICINE & [place] [address] Referral ID Status Reason Start Date Expiration Date V isits Requested Visits Authorized [id number] Closed Evaluate and Treat 09/08/2022 09/08/2023 30 30 Encounter Details Date Type Department Care Team (Latest Contact Info) Description 09/21/2022 1:00 PM EDT Office [place] [address] Roberth Rojas, [employer] Oropharyngeal dysphagia Social History Tobacco Use Types [...] * Treatment - Therapy - Roberth Rojas, [employer] - 09/21/2022 1:00 PM EDT Speech-Language Pathology Treatment session 09/21/2022 Total Treatment Time: 45 min. Total Timed Code Treatment: 0 min. KX Modifier used beginning date: Not applied. S: Pt arrived for appointment. Her accompanied her to this visit. Pt reports frequently practicing her exercises. O: Pt. seen for treatment of oropharyngeal dysphagia. Short-Term Goals: Pt will tolerate least restrictive diet without evidence of dysphagia / aspiration. PO trials conducted with 3/4 tsp. Volumes of honey-thick liquids. Pt utilized a head tilt right andslight tilt back as well as repeat swallows. Oral: Requires increased effort and tongue pumping is anticipated in addition to gravity assistancewith head tilt back to accomplish oral transit. Mild interdental stasis on right. Negative labial loss. Pharyngeal: Initiation was accomplished. Severely decreased thyroid elevation to palpation. No cough or wet vocal quality on initial boluses. Wet vocal quality and delayed coughing were noted on 4th bolus. Pt will independently demonstrate tongue-base retraction exercises with good execution. Pt independently demonstrated Gutteral G exercise. Introduced Rima exercise. Pt accurately executed Masko exercise after instruction. Pt is encouraged to continue both exercises a minimum of 10 repetitions, 3 times daily. Pt will independently demonstrate larynegeal elevation exercises with good execution. Pt independently demonstrated Pitch exercise with E. Increased thyroid movement is noted during exercise execution. Introduced Mendolsohn exercise. Pt accurately demonstrated Mendolsohn exercise after instruction. Encouraged pt to execute each exercise a minimum of 10 repetitions, 3 times daily. Pt / caregiver will follow aspiration precautions, diet modifications, and safe swallowing strategies. Currently pt is only taking small bolus volumes (3/4 tsp.), utilizing a head tilt right and back aswell as multiple swallows. She is encouraged to use these strategies during PO trial of honey-thickliquids. She is to stop PO trials if she experienced wet vocal quality or coughing. Long-Term Goals: Pt will maintain hydration / nutrition with optimal safety and efficiency. Pt remains G-tube dependent. She is beginning to trial some small volumes of honey-thick liquids. Pt demonstrates inconsistent signs of aspiration with honey-thick liquids. A: Pt is currently demonstrating some small improvements in swallow function with initiation of her swallow exercise program. 2 more exercises added to her her exercise program today as indicated above.She is also beginning to take some small volumes of honey-thick liquids for exercise purposes. Willplan further follow-up in 1 weeks time. P: Speech Pathology to follow for 9 treatment visits. Next visit is planned in 1 weeks time. Appointment made. . Pt./family are in agreement with treatment plan. Roberth Rojas MS, CCC-[employer] Speech-Language Pathologist Rehabilitation Medicine Pager # [phone] documented in this encounter Plan of Treatment Not on file documented as of this encounter Visit Diagnoses Diagnosis Oropharyngeal dysphagia Dysphagia, oropharyngeal phase documented in this encounter Care Teams Consumer Affairs Specialist Relationship Specialty Start Date End Date Dev, Tita Butt APRN [address] [place] [address] PCP - General Internal Medicine 05/15/22 documented as of this encounter
--- OUTSIDE RECORDS SUMMARY | 2023-12-08 19:56 | XMS_ITS | Encounter Summary ---
[place] [address] Care Team Providers Care Patcher Helper Name Role Phone Dev, Tita Butt APRN Primary Care Provider +1- [phone] Encounter Details Date Type Department Care Team (Latest Contact Info) Description 12/14/2022 1:05 PM EDT Laboratory Appointment Lab [address] [place] [address] Hypothyroidism (acquired) Social History Tobacco [...] Priority Date/Time Associated Diagnosis Comments TSH Routine 12/14/2022 1:15 PM EDT Hypothyroidism (acquired) documented in this encounter Results * (ABNORMAL) TSH (12/14/2022 1:15 PM EDT) Thyroid Stimulating Hormone 6.06(H) 0.27 - 4.20 mcIU/mL [facility] Comment: Reference Interval (mcIU/mL): Females: ??First Trimester: 0.23-3.88 ??Second Trimester: 0.22-3.90 ??Third Trimester: 0.44-4.66 Blood 12/14/2022 1:15 PM EDT 12/14/2022 1:37 PM EDT Narrative Resulting Agency Comment Spec In Lab Evelio Gimenez MD CHEMISTRY ORDERAB LES [facility] [place] [place] [address] documented in this encounter Visit Diagnoses Diagnosis Hypothyroidism (acquired) Unspecified hypothyroidism documented in this encounter Care Teams Patcher Helper Relationship Specialty Start Date End Date Dev, Tita Butt APRN [address] [place] [address] PCP - General Internal Medicine 05/15/22 documented as of this encounter
--- OUTSIDE RECORDS SUMMARY | 2023-12-08 19:56 | XMS_ITS | Encounter Summary ---
Author Organization [facility] [place] [address] Care Team Providers Care Contracts Attorney Name Role Phone Tita Méndez APRN Primary Care Provider +1- [phone] Encounter Details Date Type Department Care Team (Late st Contact Info) Description 11/06/2022 [place] [id number] Ramesh Buckley MD [facility] [place] [address] Social History Tobacco Use Types Packs/Day Years [...] on file documented as of this encounter H&P Notes * Ramesh Buckley MD - 11/06/2022 9:44 AM EDT Images from the original note were not included. INTERVENTIONAL RADIOLOGY FOCUSED H&P and PRE-PROCEDURE NOTE: PCP: Tita Méndez APRN Referring Provider: CALLY Man Planned Procedure: Planned procedure: Gasstrostomy tube exchange Procedure Indication: Dysphagia, SCCa of the left lateral tongue; need for regional intermodal truck driver enteral accessfor nutrition Procedure Request: Procedure request received through Interventional Radiology eDH order queue. Presenting Diagnosis/ Complaint: Theresa Hollis is a 52 y.o. female presenting to IR gastrostomy tube exchange. 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 G-tube placed on 09/05/22 with a 16 Nepalese balloon retained gastrostomy tube was placed. IR History: 09/05/22 G-tube placement - 16 Fr Local, anesthesia, ancef Antiplatelets: None. Anticoagulants: None. Recent Laboratories: Platelets: 555 on 09/07/22. INR: None. Creatinine: 0.55 on 09/07/22. Getting Laboratories Before Procedure: None. Allergies: Tylenol. Past Medical/Surgical History: Patient Active Problem List Diagnosis Code Hypothyroidism [...] R07.0 Mandible fracture S02.609A Oropharyngeal dysphagia R13.12 Past Medical History: Diagnosis Date Allergic rhinitis Allergy Cancer of head Cancer of head, face, and neck Carpal tunnel syndrome 10/29/2020 Dry mouth from radiation Herpes Chickenpox as child. Hyperlipidemia Hypothyroidism Past Surgical History: Procedure Laterality Date GLOSSECTOMY Right partial IR G-TUBE PLACEMENT 09/05/2022 IR G-Tube Placement 09/05/2022 Francisco Oliver MD [facility] INTERVENTIONL RAD LYMPHADENECTOMY SND 1-5 PERCUTANEOUS GASTROSTOMY N/A 09/05/2022 PERCUTANEOUS GASTROSTOMY performed by Francisco Oliver MD at [facility] FLORIN PRO ADJ TISS XFER HEAD, FAC, HAND <10SQCM 08/21/2022 ADJ.TISSUE TRANSFER, REARRANGEMENT, 10SQ.CM OR LESS, NECK (WRVU 8.6) performed by Cheo Laguna MDat [facility] MAIN OR PRO BONE BIOPSY,TROCAR/NEEDLE SUPERF Left 05/06/2014 BIOPSY BONE, TROCAR OR NEEDLE, SUPERFICIAL, MANDIBLE performed by Alfred Vital MD at [facility] B[facility]Y [facility] BONE-SKIN GRAFT, MICROVASCULAR 08/21/2022 @FLAP, FREE OSTEOCUTANEOUS W MICROVASC, FIBULA (WRVU 45.43) performed by Cheo Laguna MD at [facility] MAIN OR PRO CERVICAL LYMPHADECTOMY MODIFIED RADICAL NECK DISSECTION Right 08/21/2022 @CERVICAL LYMPHADENECTOMY (MODIFIED RADICAL NECK DISSECTION)-JANA , ROBOTIC (WRVU 23.95) performed by Roberth Lee MD at [facility] MAIN OR [facility] DEBRIDEMENT BONE MUSCLE &/FASCIA 20 SQ CM/< Bilateral 11/17/2019 DEBRIDEMENT SKIN, SUBCU, MUSCLE, BONE, HEAD/NECK (WRVU 4.1) performed by Keyur Ng MD at [facility] MAIN OR PRO EXCISION OF BONE, LOWER JAW Bilateral 08/21/2022 EXCISION OF BONE, MANDIBLE (WRVU 10.03) performed by Roberth Lee MD at [facility] MAIN OR PRO IMPRESSION & PREPARATION MANDIBULAR RESECTION PROSTHESIS N/A 08/21/2022 IMPRESSION AND CUSTOM PREPARATION,MANDIBULAR RESECTION PROSTHESIS (WRVU 22.85) performed by Keyur Ng MD at [facility] MAIN OR [facility] INJECTION PLATELET PLASMA WITH IMAGE, HARVEST/PREP 11/17/2019 INJECTION(S), PLATELET RICH PLASMA, ANY SITE, INCLUDING IMAGE GUIDANCE, HARVESTING AND PREPARATION WHEN PERFORMED performed by Keyur Ng MD at [facility] MAIN OR PRO RECONSTR JAW, FULL ENDO IMPLNT N/A 08/21/2022 RECONSTRUCT MANDIBLE OR MAXILLA, ENDOSTEAL IMPLANT, COMPLETE (WRVU 18.77) performed by Keyur Ng MD at [facility] MAIN OR PRO RECONSTR MANDIBLE, BONE PLATE 08/21/2022 RECONSTRUCT MANDIBLE, EXTRAORAL, W/ TRANSOSTEAL BONE PLATE (WRVU 13.62) performed by Cheo Laguna MD at [facility] MAIN OR PRO REMOVAL ERUPTED TOOTH WITH ELEVATION OF MUCOPERIOSTEAL FLAP N/A 05/06/2014 SURGICAL EXTRACTIONS REQUIRING ELEVATION OF MUCOPERIOSTEAL FLAP AND REMOVAL OF BONE OR SECTION OF TOOTH performed by Alfred Vital MD at [facility] MAIN OR PRO REMOVAL ERUPTED TOOTH WITH ELEVATION OF MUCOPERIOSTEAL FLAP Bilateral 11/17/2019 SURGICAL EXTRACTIONS REQUIRING ELEVATION OF MUCOPERIOSTEAL FLAP AND REMOVAL OF BONE OR SECTION OF TOOTH (WRVU 1.09) performed by Keyur Ng MD at [facility] MAIN OR PRO SPLIT GRFT TRUNK, ARM, LEG <100SQCM N/A 08/21/2022 SPLIT THICK SKIN GRAFT,100 SQ CM OR LESS, LEGS (WRVU 9.9) performed by Cheo Laguna MD at [facility] MAIN OR PRO TRACHEOSTOMY, PLANNED N/A 08/21/2022 TRACHEOSTOMY, PLANNED (WRVU 5.56) performed by Roberth Lee MD at [facility] MAIN OR SKIN GRAFT Medications: Current Outpatient Medications on File Prior to [...] 90 tablet 3 fluocinolone and shower cap (Larson-Smoothe/FS Scalp Oil) 0.01 % Oil Apply topically to scalp under shower cap nightly for up to 2 weeks for flares then 1- 3 times weekly prn maintenance. 118 mL 3 ibuprofen (ADVIL;MOTRIN) 100 mg/5 mL Suspension Take by mouth every 4 hours as needed for Fever. No current facility-administered medications on file prior to visit. Allergies: Tylenol [acetaminophen], Allergenic [id number], Peanut, Benzocaine, Birch, and Soy Social History and Habits: Social History Socioeconomic History Marital status: Spouse [...] on file Housing Stability: Not on file Significant Family History: Family History Problem Relation Age of Onset Breast Cancer Maternal Grandmother Eczema Mother Amblyopia Paternal Uncle Strabismus Neg Hx Macular Degeneration Neg Hx Glaucoma Neg Hx Pertinent ROS: as per HPI Labs: Lab Results Component Value Date WBC 6.8 09/07/2022 HCT 27.0 (L) 09/07/2022 PLATELET 555 (H) 09/07/2022 BUN 23 (H) 09/07/2022 CREATININE 0.55 (L) 09/07/2022 ALKPHOS 42 12/06/2016 AST 20 12/06/2016 ALBUMIN 4.4 12/06/2016 BILIDIR 0.1 01/25/2015 BILITOT 0.6 12/06/2016 ALT 13 12/06/2016 PROT 7.5 12/06/2016 K 4.6 09/07/2022 Imaging: Physical Exam: Pending (to be performed in angio the day of procedure) ASA: Pending (to be assessed in angio the day of procedure) Mallampati Class: Pending (to be assessed in angio the day of procedure) Assessment: 52 y.o. female presenting to IR for G-tube exchange. Plan: Planned procedure: Gasstrostomy tube exchange Labs to be performed day of procedure: No labs Sedation: No Sedation Prophylactic antibiotic : None Contrast: Omnipaque Additional medications for procedure: Lido jelly; Lidocaine Planned access site: Left jairo-abdomen Position: Supine Consent: Pending Medications to discontinue (and days held): None Case Urgency:: G2- Elective Outpatient intervention within 8-14 days Julian Love MD PGY-3 Pager #[phone] Department of Radiology [facility] 11/06/2022 documented in this encounter Plan of Treatment Not on file documented as of this encounter Visit Diagnoses Not on filedocumented in this encounter Care Teams Contracts Attorney Relationship Specialty Start Date End Date Dev, Tita Butt APRN [address] [place] [address] PCP - General Internal Medicine 05/15/22 documented as of this encounter
--- OUTSIDE RECORDS SUMMARY | 2023-12-08 19:56 | XMS_ITS | Encounter Summary ---
Author Organization [facility] [place] [address] Care Team Providers Care Addiction Counselor Name Role Phone DevTita APRN Primary Care Provider +1- [phone] Encounter Details Date Type Department Care Team (Latest Contact Info) Description 03/22/2023 Travel Social History Tobacco Use Types Packs/Day [...] on filedocumented in this encounter Care Teams Addiction Counselor Relationship Specialty Start Date End Date Tita Méndez APRN [address] [place], [place] [id number] PCP - General Internal Medicine 05/15/22 documented as of this encounter
--- OUTSIDE RECORDS SUMMARY | 2023-12-08 19:56 | XMS_ITS | Encounter Summary ---
Author Organization [facility] [place] [address] Care Team Providers Care Emu Farm Worker Name Role Phone Dev, Tita Butt APRN Primary Care Provider +1- [phone] Reason for Referral * Diagnostic Test (Routine) - Closed Specialty Diagnoses / Procedures Referred By Shirley cuevas Referred To Contact Radiology Diagnoses Gastrostomy tube in place Procedures IR Suture Release Francisco Oliver MD [facility] [place] [address] [facility] [place] [address] Referral ID Status Reason Start Date Expiration Date V isits Requested Visits Authorized [id number] Closed Specialty Service Requested 09/05/2022 03/07/2024 1 1 Reason for Visit * Diagnostic Test (Routine) - Closed Specialty Diagnoses / Procedures Referred By Shirley cuevas Referred To Contact Radiology Diagnoses Gastrostomy tube in place Procedures IR Suture Francisco Huffman MD [facility] [place] [address] [facility] [place] [address] Referral ID Status Reason Start Date Expiration Date V isits Requested Visits Authorized [id number] Closed Specialty Service Requested 09/05/2022 03/07/2024 1 1 Encounter Details Date Type Department Care Team (Latest Contact Info) Description 09/14/2022 9:30 AM EDT - 09/14/2022 11:59 PM EDT Hospital [place] [address] Discharge Disposition: Home Social History Tobacco Use [...] 3 07/31/2022 03/22/2023 fluocinolone and shower cap (Orr-Smoothe/FS Scalp Oil) 0.01 % Oil Apply topically to scalp under shower cap nightly for up to 2 weeks for flares then 1-3 times weekly prn maintenance. 118 mL 3 03/23/2021 11/14/2022 documented as of this encounter Plan of Treatment Scheduled Orders Name Type Priority Associated Diagnoses Orde r Schedule IR Suture Release Imaging Routine Gastrostomy tube in place 1 Occurrences starting 09/14/2022 until 09/14/2022 documented as of this encounter Visit Diagnoses Diagnosis Gastrostomy tube in place documented in this encounter Care Teams Emu Farm Worker Relationship Specialty Start Date End Date Dev, Tita Butt APRN [address] [place] [address] PCP - General Internal Medicine 05/15/22 documented as of this encounter
--- OUTSIDE RECORDS SUMMARY | 2023-12-08 19:56 | XMS_ITS | Encounter Summary ---
Author Organization Formerly [facility] [place] [address] Care Team Providers Care Professor Of Violin Name Role Phone Dev, Tita Butt APRN Primary Care Provider +1- [phone] Reason for Visit * Physical Therapy (Routine) - Closed Specialty Diagnoses / Procedures Referred By Shirley cuevas Referred To Contact Physical Therapy Diagnoses H/O tongue cancer Roberth Lee MD [facility] [place] [address] [facility] [place] [address] Referral ID Status Reason Start Date Expiration Date V isits Requested Visits Authorized [id number] Closed Evaluate and Treat 10/24/2022 10/24/2023 30 30 Encounter Details Date Type Department Care Team (Late st Contact Info) Description 11/01/2022 3:00 PM EDT Office [place] [address] Patrick Ji, PT [facility] PHYSICAL MEDICINE & [place] [address] Secondary lymphedema; Decreased ROM of neck Social History Tobacco Use Types Packs/Day Years [...] encounter Miscellaneous Notes * Initial Evaluation - Patrick Ji, PT - 11/01/2022 3:00 PM EDT Head and NeckLYMPHEDEMA INITIAL EXAMINATION Date of Exam/First treatment: 11/01/22 Date of Onset : OR 2006 and 08/21/22 Referring Provider: Roberth Lee MD Diagnosis and pertinent co-morbidities: secondary lymphedema Medicare Cert Period: 11/01/2022 - 02/01/23 Total Treatment time: 60 minutes Total Timed Code Treatment: 60 minutes eval and self care/home management CURRENT HISTORY: Theresa Hollis is a 52 y.o. female with a history of [id number] SCCa of the left lateral tongue s/p hemiglossectomy, left neck dissection 1-5, skin graft, allograft (10/31/06) followed by adjuvant chemo XRT. 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 Admitted on 08/21/2022 for tracheostomy, neck exploration, mandible excision, and fibula free flap reconstruction. Trach now decannulated. PEG placed on 09/05/22. Pt referred to PT for lymphedema. Pt had PT in the past after 2006 surgery at [facility]. Pt has Gloria chin strap,no neck pad OR w/ oral surgery planned for 11/15 for lower teeth ? implants 10/31/06 - Hemiglossectomy, left neck dissection 1-5, skin graft, allograft Past Medical History: Diagnosis Date Allergic rhinitis Allergy Cancer of head Cancer of head, face, and neck Carpal tunnel syndrome 10/29/2020 Dry mouth from radiation Herpes Chickenpox as child. Hyperlipidemia Hypothyroidism Work History and personal factors affecting plan of care: , lives in [facility]. 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 [employer] Current Exercise: 30 min of ex daily- ballet/ [place], weights Hobbies: baking PAIN: 0/10 FUNCTIONAL LIMITATIONS: On a difficulty scale with 0 being unable to perform an activity, and 10 being able to perform at a pre injury level 6-7/10 CLINICAL FINDINGS: 1) observation, posture sl forward head posture 2) ROM: Cervical AROM in sitting: (of note, pt feels her ROM is improved following recent surgery) Ext: 35 Flexion: WNL Left sd bendin Right sd bending 25 Left rotation: 40 Right rotation 35 TMJ; opening ~ 1 1/2 finger breathes, deviating to right 3) strength: N/T 4) palpation/inspection :appropriate level of healing neck incision: mild lymphedema submentally , fibrotic, No lower dentition, Diffuse fibrosis soft tissue neck CLINICAL EVALUATION AND DIAGNOSIS: 52 yo female with h/o SCC of the left tongue s/p hemiglossectomy, left neck dissection 1-5, skin graft, allograft (10/31/06) followed by adjuvant chemo XRT. Found tohave ORN of the mandible. Admitted on 08/21/2022 for tracheostomy, neck exploration, mandible excision, and fibula free flap reconstruction. Trach now decannulated. PEG placed on 09/05/22. PT with post op swelling and possible lymphedema (pt with h/o of lymphedema after surgery in 2006). Pt would likely benefit from PT for CDT for submental area as well as soft tissue techniques, manual therapy and therex for TMJ and neck to increase ROM and function. Clinical presentation: Stable Evolving Unstable x Notes: Today: Eval Pt education MLD to submental area Fitted with Tg soft size Med with channel foam and instructed to wear 20 min 2 x/day to start and increase as tolerated with very careful monitoring of the skin and discontinue if redness occurs. Also provided with instruction and material for closed cell chip pad for submental area. MLD to submental area using left and right axilla nodes and left and right supraclav nodes. Video for self MLD send through [facility] Discussed FU. Pt would like to FU closer to home at [facility] Clinical decision making of high complexity using standardized patient assessment instrument and measurable assessment of functional outcome. The patient's rehabilitation potential is good GOALS: Therapy Short Term Goals 4 weeks 1. decrease swelling 2. independent in self care. 3. Softening of fibrotic tiissue 4: Increase ROM neck and TMJ to improve function Therapy Fdc Goals 8 weeks 1. maintain reduction in swelling. 2. Be able to open jaw with less right deviation and increase opening to finger breathes to allow easier biting in the future 3. Increase neck ROM to allow increase ease with driving INITIAL TREATMENT INCLUDED: eval, self care/home management PLAN: Frequency and duration: FU at [facility] in [facility]. PT ben and MD referral to be sent Treatment: manual lymphatic drainage compression bandaging exercise teaching self care garment fitting The plan has been discussed with the patient and she has agreed with plan. PATRICK JI PT, CLT documented in this encounter Plan of Treatment Scheduled Referrals Name Type Priority Associated Diagnoses Orde r Schedule Referral to Physical Therapy Outpatient Referral Routine H/O tongue cancer Ordered: 10/24/2022 documented as of this encounter Visit Diagnoses Diagnosis Secondary lymphedema Other lymphedema Decreased ROM of neck documented in this encounter Care Teams Professor Of Violin Relationship Specialty Start Date End Date Dev, Tita Butt APRN [address] [facility] [address] [place] [address] PCP - General Internal Medicine 05/15/22 documented as of this encounter
--- OUTSIDE RECORDS SUMMARY | 2023-12-08 19:56 | XMS_ITS | Encounter Summary ---
Author Organization Formerly [facility] [place] [address] Care Team Providers Care Aircraft Maintenance Instructor Name Role Phone DevTita APRN Primary Care Provider +1- [phone] Reason for Referral * Speech Therapy (Routine) - Closed Specialty Diagnoses / Procedures Referred By Shirley cuevas Referred To Contact Speech Therapy Diagnoses H/O tongue cancer Osteonecrosis of mandible Oropharyngeal dysphagia Hermelindo Kearney [facility] [place] [address] Unknown None Referral ID Status Reason Start Date Expiration Date V isits Requested Visits Authorized [id number] Closed Evaluate and Treat Non PCP 11/24/2022 05/23/2023 12 12 Encounter Details Date Type Department Care Team (Late st Contact Info) Description 11/24/2022 Orders [place] [address] Hermelindo Kearney PA [facility] [place] [address] H/O tongue cancer; Osteonecrosis of mandible; Oropharyngeal dysphagia Social History Tobacco Use Types [...] of this encounter Plan of Treatment Scheduled Referrals Name Type Priority Associated Diagnoses Orde r Schedule Referral to Speech Therapy Outpatient Referral Routine H/O tongue cancer Osteonecrosis of mandible Oropharyngeal dysphagia Ordered: 11/24/2022 documented as of this encounter Visit Diagnoses Diagnosis H/O tongue cancer Personal history of malignant neoplasm of tongue Osteonecrosis of mandible Aseptic necrosis of other bone site Oropharyngeal dysphagia Dysphagia, oropharyngeal phase documented in this encounter Care Teams Aircraft Maintenance Instructor Relationship Specialty Start Date End Date Dev, Tita Butt APRN [address] [place] [address] PCP - General Internal Medicine 05/15/22 documented as of this encounter
--- OUTSIDE RECORDS SUMMARY | 2023-12-08 19:56 | XMS_ITS | Encounter Summary ---
Author Organization [place] [address] Care Team Providers Care Risk Investigator Name Role Phone DevTita APRN Primary Care Provider +1- [phone] Reason for Referral * Physical Therapy (Routine) - Closed Specialty Diagnoses / Procedures Referred By Shirley cuevas Referred To Contact Physical Therapy Diagnoses H/O tongue cancer Roberth Lee MD [facility] [place] [address] [facility] [place] [address] Referral ID Status Reason Start Date Expiration Date V isits Requested Visits Authorized [id number] Closed Evaluate and Treat 10/24/2022 10/24/2023 30 30 Encounter Details Date Type Department Care Team (Late st Contact Info) Description 10/24/2022 Orders [place] [address] Octavia Abreu RN H/O tongue cancer (Primary Dx) Social History Tobacco Use Types Packs/Day Years [...] this encounter Visit Diagnoses Diagnosis H/O tongue cancer- Primary Personal history of malignant neoplasm of tongue documented in this encounter Care Teams Risk Investigator Relationship Specialty Start Date End Date Dev, Tita Butt APRN [address] [place] [address] PCP - General Internal Medicine 05/15/22 documented as of this encounter
--- OUTSIDE RECORDS SUMMARY | 2023-12-08 19:56 | XMS_ITS | Encounter Summary ---
Author Organization [facility] [address] Care Team Providers Care Car Rental Deliverer Name Role Phone Dev, Tita Butt APRN Primary Care Provider +1- [phone] Encounter Details Date Type Department Care Team (Late st Contact Info) Description 10/19/2022 2:30 PM EDT Office Visit [place] [phone] Keyur Ng MD [facility] [place] [address] Status post surgery Social History Tobacco Use Types Packs/Day Years Used Date Smoking Tobacco: Never Smokeless Tobacco: Never Alcohol Use Standard Drinks/Week Comments Not Currently 0 (1 standard drink = 0.6 oz pur e alcohol) seldom, 4 drinks per year [facility] Inpatient Questions Answer Date Recorded [...] as of this encounter Progress Notes * Keyur Ng MD - 10/19/2022 2:30 PM EDT Images from the original note were not included. ORAL-MAXILLOFACIAL SURGERY OUTPATIENT CLINIC FOLLOW-UP VISIT Name: Theresa Hollis Age/Sex: 52 y.o. female History of Present Illness Theresa Hollis is a 52 y.o. female seen for follow-up. A complete history of the Theresa 's symptoms and physical signs were reviewed with attention to initial findings and interval progression, pain, bleeding, swelling, lumps, bumps, drainage, dysphagia, odynophagia, paresthesia, dysarthria and systemic effects. Pertinent interval history: Reports things are better since last visit Up coming apt with Dr Laguna No new area of concern Using moisturizer and aqufore on rash from Tegaderm Going back to work Nov 21 Would like to have G tube removed day if prosthesis delivery if possible Chin is numb,tingling. Would like fiberoptic nasal intubation left nostril Past Medical/Social/Dental History Past Medical History: Diagnosis [...] R07.0 Mandible fracture S02.609A Oropharyngeal dysphagia R13.12 Social History Tobacco Use Smoking status: Never Smokeless tobacco: Never Substance Use Topics Alcohol use: Not Currently Comment: seldom, 4 drinks per year glycopyrrolate (RobinuL) 1 mg tablet scopolamine (Transderm-Scop) 1 mg over 3 days patch 3 day oxyCODONE (Roxicodone) 5 mg tablet chlorhexidine (Peridex) 0.12 % Mouthwash levothyroxine (Synthroid) 100 mcg tablet fluocinolone and shower cap ([place]-Smoothe/FS Scalp Oil) 0.01 % Oil ibuprofen (ADVIL;MOTRIN) 100 mg/5 mL Suspension Allergies Allergen Reactions Tylenol [Acetaminophen] Anaphylaxis Allergenic Fjhkzgi-Lhkn-Iultd Itching Applesauce Peanut Itching Benzocaine Made pt tongue red and angry. Irritant reaction - allergy testing negative Birch Other (See Comments) Birch pollen: wheezing and throat constriction Soy Itching Review of Systems Pertinent positive and negative [...] No acute distress, pleasant Focused oral exam: No trismus No oral lesions visualized Neuro: a/o x3 Neck: soft, supple Psych: appropriate, responds to questions normally Imaging Personally reviewed and evaluated ASSESSMENT & RECOMMENDATIONS Assessment: s/p fibula free flap, implants, and resection of ORN/osteomyelitits mandible Recommendations/plan: Fiberoptic nasal intubation left nostril (per Pt request) Deliver Prosthesis, Extract tooth 30,15 with vestibuloplasty Reviewed risk of not being able to deliver prosthesis if there is no access, or failure of implants Will coordinate care with Dr. Laguna and Dr. Pasacl We appreciate the opportunity to be involved in Ms. Hollis's care. Keyur Ng MD, DMD 10/11/2022 2:49 PM This note may have incorporated [id number] technology and though reviewed typographical or syntax errors may remain. documented in this encounter Plan of Treatment Not on file documented as of this encounter Visit Diagnoses Diagnosis Status post surgery documented in this encounter Care Teams Car Rental Deliverer Relationship Specialty Start Date End Date Dev, Tita Butt APRN [address] [place] [address] PCP - General Internal Medicine 05/15/22 documented as of this encounter
--- OUTSIDE RECORDS SUMMARY | 2023-12-08 19:56 | XMS_ITS | Encounter Summary ---
Author Organization Formerly [facility] [place] [address] Care Team Providers Care Front Desk Officer Name Role Phone DevTita APRN Primary Care Provider +1- [phone] Encounter Details Date Type Department Care Team (Late st Contact Info) Description 12/18/2022 Telephone [place] [address] Amy Flowers Social History Tobacco Use Types Packs/Day Years Used Date Smoking Tobacco: Never Smokeless Tobacco: Never Alcohol Use Standard Drinks/Week Comments Not Currently 0 (1 standard drink = 0.6 oz pur e alcohol) seldom, 4 drinks per year [facility] Inpatient Questions Answer Date Recorded [...] encounter Miscellaneous Notes * Telephone Encounter - Amy Flowers - 12/18/2022 10:[address] Ng's recommendation: Call made to Dr. Pascal's office (Theresa's general dentist) to have them reach out to [place] for a follow up visit in their office. documented in this encounter Plan of Treatment Not on file documented as of this encounter Visit Diagnoses Not on filedocumented in this encounter Care Teams Front Desk Officer Relationship Specialty Start Date End Date Dev, Tita Butt APRN [address] [facility] [address] [place] [address] PCP - General Internal Medicine 05/15/22 documented as of this encounter
--- OUTSIDE RECORDS SUMMARY | 2023-12-08 19:56 | XMS_ITS | Encounter Summary ---
Author Organization [facility] [place] [address] Care Team Providers Care Medical Record Technician Name Role Phone DevTita APRN Primary Care Provider +1- [phone] Encounter Details Date Type Department Care Team (Latest Contact Info) Description 12/14/2022 Travel Social History Tobacco Use Types Packs/Day [...] on filedocumented in this encounter Care Teams Medical Record Technician Relationship Specialty Start Date End Date Tita Méndez APRN [address] [place], [place] [id number] PCP - General Internal Medicine 05/15/22 documented as of this encounter
--- OUTSIDE RECORDS SUMMARY | 2023-12-08 19:56 | XMS_ITS | Encounter Summary ---
Author Organization [facility] [place] [address] Care Team Providers Care Deliverer Food Name Role Phone Tita Méndez APRN Primary Care Provider +1- [phone] Encounter Details Date Type Department Care Team (Latest Contact Info) Description 09/28/2022 Travel Social History Tobacco Use Types Packs/Day [...] on filedocumented in this encounter Care Teams Deliverer Food Relationship Specialty Start Date End Date Tita Méndez APRN [address] [place], [place] [address] PCP - General Internal Medicine 05/15/22 documented as of this encounter
--- OUTSIDE RECORDS SUMMARY | 2023-12-08 19:56 | XMS_ITS | Encounter Summary ---
Author Organization [facility] Address [facility] [place] [address] Care Team Providers Care Concession Supervisor Name Role Phone Dev, Tita Butt APRN Primary Care Provider +1- [phone] Encounter Details Date Type Department Care Team (Latest Contact Info) Description 10/25/2022 11:00 AM EDT TH Visit (TeleHealth) [place] [id number] Evelio Gimenez MD [facility] [place] [address] Hypothyroidism (acquired) Social History Tobacco Use Types Packs/Day Years Used Date Smoking Tobacco: Never Smokeless Tobacco: Never Alcohol Use Standard Drinks/Week Comments Not Currently 0 (1 standard drink = 0.6 oz pur e alcohol) seldom, 4 drinks per year [facility] Inpatient Questions Answer Date Recorded Does Anyone [...] Sign Reading Time Taken Comments Blood Pressure 103/70 10/25/2022 11:09 AM EDT Pulse 90 10/25/2022 11:09 AM EDT Temperature - - Respiratory Rate 16 10/25/2022 11:09 AM EDT Oxygen Saturation - - Inhaled Oxygen Concentration - - Weight 43.1 kg (95 lb) 10/25/2022 11:09 AM EDT Height 157.5 cm (5' 2) 10/25/2022 11:09 AM EDT Body Mass Index 17.38 10/25/2022 11:09 AM EDT documented in this encounter Patient Instructions * Patient Instructions* Evelio Gimenez MD - 10/25/2022 11:00 AM EDT PLAN: 1. Medication: Patient will cont taking levothyroxine 100 mcg daily further (since 10/18/21). Addendum: Lab 12/14/22 showed better trend for TSH but still slightly high at 6 in mild hypothyroid,so you can increase LT4 100 mcg Sun-Sun and 1.5 tablet on Sundays for now and recheck lab in 2-3 months. EVELIO GIMENEZ MD Addendum: 05/14/23 lab showed a borderline high thyroid with a slightly suppressed TSH 0.23, so you can taper levothyroxine 125 mcg Sun-Sun and 0.5 tablet on Sundays for now. Then recheck lab for TSH in 6-8 weeks. EVELIO GIMENEZ MD She knows to take it on an empty stomach at least 1/2 h before breakfast and separate from iron, calcium or multivitamin-multimineral supplement to ensure full absorption of her thyroid medication. Patient was advised of proper dosage, how to take the medication properly, precautions, and potentialcomplication of the medication prescribed. Target is to keep TSH 1.0-4.0 range and <10. Pt prefers TSH 1.0-2.0. Patient will continue all other medications, healthy diet and execise regularly. 2. To eat healthy diet to keep weight stable or gain some weight back for her BMI of 18. 3. Lab: check lab next 2-3 months at [facility] lab or here for TSH as arranged. To recheck lab for TSH locally at [facility] lab in 2 months. Standing order for TSH lab test every 2 months as needed x6 was efaxed to [facility] lab today so she can simply go there for blood test as needed. 4. RTC: 12 months and will check TSH at that time (quick-draw lab so we know the result right away at next visit). 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 Patient verbally consents to this telehealth visit and understands that this visit may be billed, similar to a clinic office visit. I provided care to the patient today via Phone call. The total time associated with this visit, chart review, documentation, and coordination of care was 30 minutes. HISTORY OF PRESENT ILLNESS: Patient is a very pleasant 52 y.o. female who presents for annual endocrine visit of radiation-induced hypothyroidism which occurred 2 yrs after XRT to head and neck area for SCC tongue ca surgery and chemoRx in 2006 with TSH 105 in 06/25. She has been on an increasing dose of levothyroxine from 25 mcg up to 100- 112 mcg qd with some fluctuation of TSH 0.04-7.75 range over the past several years and lately tapered the dose down to 75-88 mcg qd when she was getting into menopause (last period was 02/14/22). We have been monitoring TSH closely and adjust LT4 dose during the interim. She has been taking [id number] dose of 100 mcg daily since 10/18/21 and it helped lower TSH from 18.9 (August 2022) to 8.45 (10/17/22) better trend. She knows to take levothyroxine properly with [...] => then 75 mcg=>88 mcg=> 1.5Sun=>100 =>0.5tab Sun=>qow=> daily Labs: 02/14/19 10/02/19 12/09/19 02/04/20 03/05/20 05/26/20 06/23/20 *09/14/20 11/01/20 12/28/20 02/23/21 04/27/21 06/22/21 08/25/21 10/25/21 12/27/2105/22/22 TSH 0.43 0.04L 0.29L 7.75H 0.51 1.93 4.4H 0.07L 0.11L 0.35 1.92 0.6 4.47 3.14 2.79 0.92 1.69 0.87 FT4 1.25 1.51 T3 101 25vitamin D 36 Ca 8.9 9.4 BMP Normal Normal TC/LDL 221H/131H 206H/89 TG/HDL 79/75 189/ 79 A1c 5.1% Fatigue - Some but better Weight gain - Pretty stable wt 95-100 lbs even while having hypo- or hyper- thyroid in the past Intolerance to cold - no Dry skin - no constipation - no Menstrual irregularities - Yes, no monthly periods last period was 02/14/22, almost a year now likely in menopause Muscle and joint pain - [...] Allergies Allergen Reactions Tylenol [Acetaminophen] Anaphylaxis Allergenic Wwhsyxc-Qskk-Cucld Itching Applesauce Peanut Itching Benzocaine Made pt tongue red and angry. Irritant reaction - allergy testing negative Birch Other (See Comments) Birch pollen: wheezing and throat constriction Soy Itching Current Medication Current Outpatient Medications on File Prior to Visit Medication Sig Dispense Refill glycopyrrolate (RobinuL) 1 mg tablet Take 1 tablet by mouth 3 times daily. 90 tablet 1 chlorhexidine (Peridex) 0.12 % Mouthwash Take 15 mLs by mouth 2 times daily. Swish and spit. Do notswallow. 120 mL 0 levothyroxine (Synthroid) 100 mcg tablet TAKE ONE TABLET BY MOUTH EVERY DAY 90 tablet 3 fluocinolone and shower cap ([place]-Smoothe/FS Scalp Oil) 0.01 % Oil Apply topically to scalp under shower cap nightly for up to 2 weeks for flares then 1- 3 times weekly prn maintenance. 118 mL 3 ibuprofen (ADVIL;MOTRIN) 100 mg/5 mL Suspension Take by mouth every 4 hours as needed for Fever. scopolamine (Transderm-Scop) 1 mg over 3 days patch 3 day Change 1 patch on the skin every 3 days. 10 patch 12 oxyCODONE (Roxicodone) 5 mg tablet 1 tablet by Per G Tube route every 4 hours as needed for Pain. 20 tablet 0 No current facility-administered medications on file prior [...] on file Housing Stability: Not on file Family History Family History Problem Relation Age of Onset Breast Cancer Maternal Grandmother Eczema Mother Amblyopia Paternal Uncle Strabismus Neg Hx Macular Degeneration Neg Hx Glaucoma Neg Hx PHYSICAL EXAM: BP 103/70 Pulse 90 Resp 16 Ht 157.5 cm (5' 2) Wt 43.1 kg (95 lb) BMI 17.38 kg/m?? Very pleasant. Some dysarthria PE from last [...] TSH in normal range. EVELIO GIMENEZ MD Addendum: Lab 12/14/22 showed better trend for TSH but still slightly high at 6 in mild hypothyroid,so you can increase LT4 100 mcg Mon-Sat and 1.5 tablet on Sundays for now and recheck lab in 2-3 months. EVELIO GIMENEZ MD Addendum: Lab 03/22/23 showed TSH 7.23 as she has been crushing the pills and drank it in [employer] => to increase LT4 to 125 mcg qd. EVELIO GIMENEZ MD Addendum: 05/14/23 lab showed [...] tapered LT4 to 100 mcg qd. DIAGNOSIS: 52 y.o. 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 She has been on an increasing dose of levothyroxine from 25 mcg up to 100-112 mcg qd in the past with some fluctuation of TSH 0.04-18.9 range over the past several years (too suppressed with 112 mcg dosing and 75-88 mcg was not enough and now betternear normal TSH after taking LT4 100 mcg qd. Lately we had to taper the LT4 dose down as she is getting into menopause. She used to take LT4 88 mcg 1 tab Mon-Sat and 1.5 tab in Sunday from 08/29/21 but still not enough so we increased the dose back to 100 mcg daily with goal to keep TSH at target of 1-4 for her who has very sensitive thyrotrophs in the pituitary. She also has mild hypercholesterolemia on diet control with improvement. Target TSH 1.0-4.0 range to avoid weight loss for her. She felt the best when her TSH was 1.0-2.0. PLAN: 1. Medication: Patient will cont taking levothyroxine 100 mcg daily (since 10/18/21) => to increase to 125 mcg qd (03/22/23) => back down to 100 mcg qd (07/23/23). She knows to take it on an empty stomach at least 1/2 h before breakfast and separate from iron, calcium or multivitamin-multimineral patel pplement to ensure full absorption of her thyroid medication. Patient was advised of proper dosage,how to take the medication properly, precautions, and potential complication of the medication prescribed. Addendum: Lab 12/14/22 [...] of 18. 3. Lab: check lab next 2-3 months at [facility] lab or here for TSH as arranged. To recheck lab for TSH locally at [facility] lab in 2 months. Standing order for TSH lab test every 2 months as needed x6 was efaxed to [facility] lab today so she can simply go [...] Addendum Note - Evelio Gimenez MD - 10/25/2022 11:00 AM EDTAddended by: EVELIO GIMENEZ on: 03/22/2023 04:55 PM Modules accepted: Orders * Addendum Note - Evelio Gimenez MD - 10/25/2022 11:00 AM EDTAddended by: EVELIO GIMENEZ on: 05/27/2023 05:39 PM Modules accepted: Orders documented in this encounter Plan of Treatment Scheduled Orders Name Type Priority Associated Diagnoses Orde r Schedule TSH Lab Routine Hypothyroidism (acquired) Every 8 Weeks for 6 Occurrences starting 10/25/2022 until 10/26/2023, 3 completed documented as of this encounter Results * (ABNORMAL) TSH (05/14/2023 9:05 AM EST) Thyroid Stimulating Hormone 0.23(L) 0.27 - 4.20 mcIU/mL [facility] Comment: Reference Interval (mcIU/mL): Females: ??First Trimester: 0.23-3.88 ??Second Trimester: 0.22-3.90 ??Third Trimester: 0.44-4.66 Blood 05/14/2023 9:05 AM EST 05/14/2023 9:11 AM EST Narrative Resulting Agency Comment Spec In Lab Evelio Gimenez MD CHEMISTRY ORDERAB LES [facility] [place] [address] * (ABNORMAL) TSH (03/22/2023 8:32 AM EST) Thyroid Stimulating Hormone 7.23(H) 0.27 - 4.20 mcIU/mL [facility] Comment: Reference Interval (mcIU/mL): Females: ??First Trimester: 0.23-3.88 ??Second Trimester: 0.22-3.90 ??Third Trimester: 0.44-4.66 Blood 03/22/2023 8:32 AM EST 03/22/2023 8:43 AM EST Narrative Resulting Agency Comment Spec In Lab Evelio Gimenez MD CHEMISTRY ORDERAB LES [facility] [place] [address] * (ABNORMAL) TSH (12/14/2022 1:15 PM EDT) Thyroid Stimulating Hormone 6.06(H) 0.27 - 4.20 mcIU/mL [facility] Comment: Reference Interval (mcIU/mL): Females: ??First Trimester: 0.23-3.88 ??Second Trimester: 0.22-3.90 ??Third Trimester: 0.44-4.66 Blood 12/14/2022 1:15 PM EDT 12/14/2022 1:37 PM EDT Narrative Resulting Agency Comment Spec In Lab Evelio Gimenez MD CHEMISTRY ORDERAB LES Performing Organization Address City/[facility]/ZIP Co de Phone Number [facility] [place] [address] documented in this encounter Visit Diagnoses Diagnosis Hypothyroidism (acquired) Unspecified hypothyroidism documented in this encounter Care Teams Concession Supervisor Relationship Specialty Start Date End Date Dev, Tita Butt APRN [address] [place] [address] PCP - General Internal Medicine 05/15/22 documented as of this encounter
--- OUTSIDE RECORDS SUMMARY | 2023-12-08 19:56 | XMS_ITS | Encounter Summary ---
Author Organization [facility] [place] [address] Care Team Providers Care Pediatric Acute Care Unit Nurse Name Role Phone Dev, Tita Butt APRN Primary Care Provider +1- [phone] Encounter Details Date Type Department Care Team (Late st Contact Info) Description 09/15/2022 [place] [address] Flower Shah, RD [facility] [place] [address] Social History Tobacco Use Types Packs/Day Years [...] as of this encounter Progress Notes * Flower Shah, ALEXIS - 09/15/2022 11:39 AM EDT Called patient/ at request of Hollie Vang CM who received voicemail about patient having itching with protein powder. Spoke with patient and who report that Theresa has been having itching that has gotten worse and has made the correlation to when she takes her protein powder as it worsens then. Pt looked at protein powder ingredients which contains soy lechithin and believes this to be the cause as she is allergic to soy. Soy is not currently listed as an allergy in her chart so should be added as such. Discussed that protein powder at 2 scoops per day is only providing an additional 12 grams/day and is not needed so ok to discontinue use completely. The Compleat 1.4 formula at 300 mL x 4 daily is providing 4.8 cartons and about 86 grams of protein (2 g/kg). Pt asking if ok to do 400 mL x 3 daily. This is fine if she is able to tolerate the larger volumes as long as she continues to get her goal volume in. documented in this encounter Plan of Treatment Not on file documented as of this encounter Visit Diagnoses Not on filedocumented in this encounter Care Teams Pediatric Acute Care Unit Nurse Relationship Specialty Start Date End Date Dev, Tita Butt APRN [address] [place] [address] PCP - General Internal Medicine 05/15/22 documented as of this encounter
--- OUTSIDE RECORDS SUMMARY | 2023-12-08 19:56 | XMS_ITS | Encounter Summary ---
[place] [address] Care Team Providers Care Fight Manager Name Role Phone DeviTta APRN Primary Care Provider +1- [phone] Encounter Details Date Type Department Care Team (Late st Contact Info) Description 10/25/2022 Telephone [place] [id number] Nicki Guadalupe Social History Tobacco Use Types Packs/Day Years [...] Miscellaneous Notes * Telephone Encounter - Nicki Guadalupe - 10/25/2022 4:49 PM EDT Stated department calling from & speaking on a recorded line. Patient stated full name & . Scheduled PT referral & added to wait list. Patient confirmed scheduled appointment. documented in this encounter Plan of Treatment Not on file documented as of this encounter Visit Diagnoses Not on filedocumented in this encounter Care Teams Fight Manager Relationship Specialty Start Date End Date Dev, Tita Butt APRN [address] [place] [address] PCP - General Internal Medicine 05/15/22 documented as of this encounter
--- OUTSIDE RECORDS SUMMARY | 2023-12-08 19:56 | XMS_ITS | Encounter Summary ---
Author Organization [facility] [place] [address] Care Team Providers Care Sports Broadcasting Internship Name Role Phone DevTita APRN Primary Care Provider +1- [phone] Encounter Details Date Type Department Care Team (Late st Contact Info) Description 11/14/2022 Telephone Otolaryngology [address] [place] [address] Nicki Miles Social History Tobacco Use Types Packs/Day Years Used Date Smoking Tobacco: Never Smokeless Tobacco: Never Alcohol Use Standard Drinks/Week Comments Not Currently 0 (1 standard drink = 0.6 oz pur e alcohol) seldom, 4 drinks per year [facility] Inpatient Questions Answer Date Recorded Does Anyone [...] * Telephone Encounter - Nicki Miles - 11/14/2022 10:17 AM EDT Per Deanne in Plastics, patient asked Dr. Laguna if she needed to do followup with him/us and he advised she didn't as long as she was following up with Dr. Ng's team. I talked to her this morning to let her know this and said I would reach out to the departments school attendance secretary to be sure they wereaware a followup will not be done with us and I'm sure you guys would be reaching out to schedule afollowup for her over there. :) Patient was happy with that idea. documented in this encounter Plan of Treatment Not on file documented as of this encounter Visit Diagnoses Not on filedocumented in this encounter Care Teams Sports Broadcasting Internship Relationship Specialty Start Date End Date Dev, Tita Butt APRN [address] [place] [address] PCP - General Internal Medicine 05/15/22 documented as of this encounter
--- OUTSIDE RECORDS SUMMARY | 2023-12-08 19:56 | XMS_ITS | Encounter Summary ---
Author Organization [facility] [place] [address] Care Team Providers Care Sawmill Manager Name Role Phone DevTita APRN Primary Care Provider +1- [phone] Reason for Referral * Diagnostic Test (Routine) - Closed Specialty Diagnoses / Procedures Referred By Contac t Referred To Contact Radiology Diagnoses H/O tongue cancer Dysphagia, unspecified type Osteoradionecrosis of jaw Procedures IR Low Profile Domingo-Quintero Placement IR G-Tube Check/Change Hermelindo Kearney PA [facility] [place] [address] [facility] [place] [address] Referral ID Status Reason Start Date Expiration Date V isits Requested Visits Authorized [id number] Closed Specialty Service Requested 11/03/2022 05/06/2024 1 1 * Diagnostic Test (Routine) - Closed Specialty Diagnoses / Procedures Referred By Contac t Referred To Contact Interventional Radiology Diagnoses H/O tongue cancer Dysphagia, unspecified type Osteoradionecrosis of jaw Hermelindo Kearney PA [facility] [place] [address] [facility] [place] [address] [place] [address] Referral ID Status Reason Start Date Expiration Date V isits Requested Visits Authorized [id number] Closed Consult, Test & Treat 11/03/2022 11/03/2023 1 1 Encounter Details Date Type Department Care Team (Late st Contact Info) Description 11/03/2022 Orders [place] [address] Hermelindo Kearney PA [facility] [place] [place] [address] H/O tongue cancer; Oropharyngeal dysphagia; Dysphagia, unspecified type; Osteoradionecrosis of jaw Social History Tobacco Use Types Packs/Day Years [...] as of this encounter Miscellaneous Notes * Addendum Note - Hermelindo Kearney PA - 11/03/2022 9:22 AM EDTAddended by: HERMELINDO KEARNEY on: 11/03/2022 12:34 PM Modules accepted: Orders documented in this encounter Plan of Treatment Scheduled Referrals Name Type Priority Associated Diagnoses Orde r Schedule Referral to General Surgery Outpatient Referral Routine H/O tongue cancer Dysphagia, unspecified type Osteoradionecrosis of jaw Ordered: 11/03/2022 documented as of this encounter Results * IR Low Profile Domingo-Quintero Placement (11/09/2022 11:30 AM EDT) Anatomical Region Laterality Modality X-Ray Angiograph y Narrative 11/09/2022 11:28 AM EDT INTERVENTIONAL RADIOLOGY PROCEDURE NOTE Procedure: Conversion of Gastrostomy Catheter to a Low-Profile (DOMINGO-QUINTERO) Catheter Indication for Procedure: ?? Dysphagia, SCCa of the left lateral tongue; need for custodial enteral access for nutrition. ??Request for conversion to low profile catheter. Informed Consent: After discussing risks (including infection, trauma / damage to surrounding structures, hemorrhage, non-success, amongst others), and benefits of the procedure, the patient consented to the procedure. Monitoring and Sedation Details: The IR nurse was present continuously monitoring ??pulse, pressure, and oxygen saturation. No systemic sedation was utilized. Procedure Events and Technique: A standard time-out was conducted just before the start of the procedure to verify all quintero aspects; including the correct patient and planned procedure, procedure location, informed consent, and all relevant critical information, all of which were correct. The patient was positioned supine on the procedure table. ??The epigastrium including the previously placed gastrostomy catheter was cleaned and prepped in typical sterile fashion; maximal sterile barrier technique was used throughout. ?? The procedure was performed under fluoroscopic guidance. ??A website/blog editor fluoroscopic image was obtained. ??Contrast was injected through the gastrostomy catheter and another fluoroscopic image was obtained. ??Through the catheter, an 0.035 Amplatz wire was advanced. ??The catheter was removed. ??Over the wire, the stomal measuring device was advanced, retention balloon inflated, measurement obtained, retention balloon deflated and device removed. ??Subsequently, a new 16-Fr, 3.5-cm stomal length low-profile (DOMINGO-QUINTERO) gastrostomy catheter was advanced. ??The retention balloon was inflated with 5 cc of sterile water. ??The gastrostomy was injected with contrast and repeat fluoroscopic image was obtained. ??A sterile dressing was applied. ?? Medications: 2% Lidocaine Jelly Topically Contrast: 10 cc Omnipaque 350, intra-gastric. Fluoroscopic Time: 0.5 minutes. Estimated Blood Loss: < 5 cc. Complications: ??No immediate. Findings: Previously placed gastrostomy catheter in unchanged position. Exchange for new 16-Fr, 3.5-cm stomal length gastrostomy catheter within the stomach. ?? Impression: Successful gastrostomy catheter exchange. Resident/Fellow: None. Attending: Dr. Toby Au. I, Dr. Au, was present throughout the procedure. Roberth Lee MD IMG IR ORDERABLES documented in this encounter Visit Diagnoses Diagnosis H/O tongue cancer Personal history of malignant neoplasm of tongue Oropharyngeal dysphagia Dysphagia, oropharyngeal phase Dysphagia, unspecified type Osteoradionecrosis of jaw Other specified disease of the jaws H/O tongue cancer Personal history of malignant neoplasm of tongue Dysphagia, unspecified type Osteoradionecrosis of jaw Other specified disease of the jaws documented in this encounter Care Teams Sawmill Manager Relationship Specialty Start Date End Date Dev, Tita Butt APRN [address] [place] [address] PCP - General Internal Medicine 05/15/22 documented as of this encounter
--- OUTSIDE RECORDS SUMMARY | 2023-12-08 19:56 | XMS_ITS | Encounter Summary ---
Author Organization Formerly [facility] [place] [address] Care Team Providers Care Sweat Band Sewer Name Role Phone Dev, Tita Butt APRN Primary Care Provider +1- [phone] Reason for Visit * Speech Therapy (Routine) - Closed Specialty Diagnoses / Procedures Referred By Shirley cuevas Referred To Contact Speech Therapy Diagnoses Osteoradionecrosis of jaw Toño Pacheco MD [facility] [place] [address] Roberth Rojas, BALLING MACHINE OPERATOR [facility] PHYSICAL MEDICINE & [place] [address] Referral ID Status Reason Start Date Expiration Date V isits Requested Visits Authorized [id number] Closed Evaluate and Treat 09/08/2022 09/08/2023 30 30 Encounter Details Date Type Department Care Team (Latest Contact Info) Description 09/28/2022 1:00 PM EDT Office Visit [place] [address] Roberth Rojas, BALLING MACHINE OPERATOR Oropharyngeal dysphagia Social History Tobacco Use Types [...] * Treatment - Therapy - Roberth Rojas, BALLING MACHINE OPERATOR - 09/28/2022 1:00 PM EDT Speech-Language Pathology Treatment session 09/28/2022 Total Treatment Time: 45 min. Total Timed Code Treatment: 0 min. KX Modifier used beginning date: N/A S: Pt arrived for appointment. Her accompanied her to this visit. Pt reports no coughing to change in vocal quality following swallows during PO trials at home. O: Pt. seen for treatment of oropharyngeal dysphagia. Short-Term Goals: Pt will tolerate least restrictive diet without evidence of dysphagia / aspiration. PO trials conducted with 3/4 tsp. Volumes of honey-thick liquids, nectar-thick liquids as well as 1/4 tsp volumes of jello. Pt utilized a head tilt slight tilt back as well as repeat swallows. Oral: Requires increased effort and tongue pumping in addition to gravity assistance with head tiltback to accomplish oral transit. No significant oral stasis is witnessed, however pt indicates sensation of stasis on left. Negative labial loss. Pharyngeal: Pt was able to initiate multiple swallows per bolus. Significantly decreased thyroid elevation to palpation is noted. No cough or wet vocal quality following swallows of honey-thick liquids or very small bolus volumes of jello (puree). Wet vocal quality is inconsistently noted on nectar-thick liquids. Pt will independently demonstrate tongue-base retraction exercises with good execution. - Goal met. Pt independently demonstrated Gutteral G exercise and Rima exercise. Pt places tongue behind upper dentition for Rima. Pt is encouraged to continue both exercises a minimum of 10 repetitions, 3times daily. Pt will independently demonstrate larynegeal elevation exercises with good execution. - Goal met. Pt independently demonstrated Pitch exercise with E and Mendolsohn exercise. Pt was able to hold Mendolsohn contraction for 12-13 seconds. Encouraged pt to continue both exercises a minimum of 10 repetitions, 3 times daily. Pt / caregiver will follow aspiration precautions, diet modifications, and safe swallowing strategies. Pt is now taking small bolus volumes (3/4 tsp.), utilizing a head tilt back as well as multiple swallows. She is encouraged to use these strategies during PO trial of honey-thick liquids and nectar-thick liquids. She is to stop PO trials if she experienced wet vocal quality or coughing. Long-Term Goals: Pt will maintain hydration / nutrition with optimal safety and efficiency. Pt remains G-tube dependent. She is beginning to take small bolus volumes of honey-thick liquids with success. trial some small volumes of honey-thick liquids. Pt demonstrates inconsistent signs of aspiration with honey-thick liquids. A: Pt is now independent with pharyngeal dysphagia exercises. She is beginning to take small bolus volumes of honey-thick liquids without overt signs of aspiration and this is considerable progress. Shecontinues to demonstrate signs of aspiration with nectar-thick liquids however these signs appear reduced form prior visits with patient. She is encouraged to continue her swallow exercise program aswell as PO trials with honey-thick and nectar-thick liquids. Will plan for next visit to be in ENT clinic and in conjunction with ENT for possible FEES. P: Speech Pathology to follow for 8 treatment visits. Next visit is planned in 2 weeks time. Appointment being coordinated with ENT (same time). Pt./family are in agreement with treatment plan. Roberth Rojas MS, CCC-BALLING MACHINE OPERATOR Speech-Language Pathologist Rehabilitation Medicine Pager # [phone] documented in this encounter Plan of Treatment Not on file documented as of this encounter Visit Diagnoses Diagnosis Oropharyngeal dysphagia Dysphagia, oropharyngeal phase documented in this encounter Care Teams Sweat Band Sewer Relationship Specialty Start Date End Date Dev, Tita Butt APRN [address] [place] [address] PCP - General Internal Medicine 05/15/22 documented as of this encounter
--- OUTSIDE RECORDS SUMMARY | 2023-12-08 19:56 | XMS_ITS | Encounter Summary ---
Author Organization [facility] [place] [address] Care Team Providers Care Marketing Operations Manager Name Role Phone Tita Méndez APRN Primary Care Provider +1- [phone] Encounter Details Date Type Department Care Team (Latest Contact Info) Description 11/09/2022 Travel Social History Tobacco Use Types Packs/Day [...] on filedocumented in this encounter Care Teams Marketing Operations Manager Relationship Specialty Start Date End Date Tita Méndez APRN [address] [place], [place] [address] PCP - General Internal Medicine 05/15/22 documented as of this encounter
--- OUTSIDE RECORDS SUMMARY | 2023-12-08 19:56 | XMS_ITS | Encounter Summary ---
Author Organization Formerly [facility] [place] [address] Care Team Providers Care Dozer Operator Name Role Phone Dev, Tita Butt APRN Primary Care Provider +1- [phone] Encounter Details Date Type Department Care Team (Late st Contact Info) Description 12/14/2022 2:00 PM EDT Office Visit [place] [address] Kam Mclean PA [facility] DR [place] [address] Status post surgery Social History Tobacco Use Types Packs/Day Years Used Date Smoking Tobacco: Never Smokeless Tobacco: Never Alcohol Use Standard Drinks/Week Comments Not Currently 0 (1 standard drink = 0.6 oz pur e alcohol) seldom, 4 drinks per year [facility] Inpatient Questions Answer Date Recorded Does [...] Progress Notes * Keyur Ng MD - 12/14/2022 2:00 PM EDT Oral & Maxillofacial Dental Implant Surgery Follow Up Returns for follow up of dental implant placement for the area of mandible 08/21/2022 Jaw reconstruction with fibula free flap for osteoradionecrosis 11/15/2022 Additional surgery inserting mandibular implant supported denture Interval History: Patient was questioned with regards to new lumps or bumps,intra or extraoral drainage, difficulty chewing or swallowing, oral bleeding, dysarthria or altered oral sensation from prior examination. Pertinent interval changes include: Having difficultly adjusting to everything since surgery Struggling with new mandibular implant supported denture in place, but is motivated to continue to adjust Speech and swallowing can be challenging Eating cream of wheat Weight has remained stable Review of systems noted above were otherwise negative. Clinical Pertinent findings include: Healing caps stable Mucosa pink and adapting well to healing caps No purulence Sound resonance of the healing caps appreciated Paraesthesia bilateral v3 Tenderness and hesitation on exam Halbur tongue dry Patient tearful and upset at part of the examination Good jaw projection and prosthesis intact and no mucosal swelling Pertinent imaging studies: Impression: approximately 4 weeks with insertion of implant supported prosthesis of the mandible Recommendations and Plan: She was tearful at times and she seems most frustrated with her ability to eat and speech. I did re-iterate the prosthesis will need time to adjust and that this prosthesis is temporary and at some point will need to be transitioned to a permanent prosthesis. If the current prosthesis feels too bulky and she can no longer tolerated it then I offered to remove it and revisit the prosthetic plan. But she wishes to keep it in and does not want to go without teeth for now. She would like to see Dr. Lee to discuss her progress and I will alert him and get her schedule with him. Also I will try to get her in with Dr. Pascal for evaluation and adjustment as needed. Keyur Ng MD, DMD, FACS documented in this encounter Plan of Treatment Not on file documented as of this encounter Visit Diagnoses Diagnosis Status post surgery documented in this encounter Care Teams Dozer Operator Relationship Specialty Start Date End Date Dev, Tita Butt APRN [address] [place] [address] PCP - General Internal Medicine 05/15/22 documented as of this encounter
--- OUTSIDE RECORDS SUMMARY | 2023-12-08 19:56 | XMS_ITS | Encounter Summary ---
Author Organization [facility] [place] [address] Care Team Providers Care Highway Safety Engineer Name Role Phone Dev, Tita Butt APRN Primary Care Provider +1- [phone] Encounter Details Date Type Department Care Team (Late st Contact Info) Description 05/11/2023 8:00 AM EST Office Visit [place] [id number] Keuyr Ng MD [facility] [place] [address] Status post surgery Social History Tobacco Use [...] Progress Notes * Keyur Ng MD - 05/11/2023 8:00 AM EST Images from the original note were not included. Worked with Dr. Pascal to remove temporary prosthesis, place impression copings and then re-insert temporary prosthesis. Note: Temporary prosthesis is only screwed in 3 places (#20,25,27) Last coping on right worked well with hand twisting screw on and off due to access. All others wereeasily removed with baja drill. Mucosa pink and implants all stable, good mandibular form. Keyur Ng MD documented in this encounter Plan of Treatment Not on file documented as of this encounter Visit Diagnoses Diagnosis Status post surgery documented in this encounter Care Teams Highway Safety Engineer Relationship Specialty Start Date End Date Dev, Tita Butt APRN [address] [place] [address] PCP - General Internal Medicine 05/15/22 documented as of this encounter
--- OUTSIDE RECORDS SUMMARY | 2023-12-08 19:56 | XMS_ITS | Encounter Summary ---
Author Organization [facility] [place] [address] Care Team Providers Care Database Management System Specialist Name Role Phone Tita Méndez APRN Primary Care Provider +1- [phone] Encounter Details Date Type Department Care Team (Latest Contact Info) Description 09/14/2022 Travel Social History Tobacco Use Types Packs/Day [...] on filedocumented in this encounter Care Teams Database Management System Specialist Relationship Specialty Start Date End Date Tita Méndez APRN [address] [place], [place] [address] PCP - General Internal Medicine 05/15/22 documented as of this encounter
--- OUTSIDE RECORDS SUMMARY | 2023-12-08 19:56 | XMS_ITS | Encounter Summary ---
Author Organization Formerly [facility] [place] [address] Care Team Providers Care Mill Supervisor Name Role Phone Tita Méndez APRN Primary Care Provider +1- [phone] Encounter Details Date Type Department Care Team (Late st Contact Info) Description 05/14/2023 9:07 AM EST - 05/14/2023 11:59 PM EST Hospital Encounter Mammography/[place] [phone] Tita Méndez APRN [address] [place], [place] [id number] Visit for screening mammogram Discharge Disposition: Home Social History Tobacco Use [...] mouth daily. 90 tablet 3 03/22/2023 05/27/2023 documented as of this encounter Plan of Treatment Not on file documented as of this encounter Procedures Procedure Name Priority Date/Time Associated Diagnosis Comments MAMMO SCREENING CAD AND MALACHI BILATERAL Routine 05/14/2023 9:54 AM EST Visit for screening mammogram documented in this encounter Results * Mammo Screening Cad and Malachi Bilateral (05/14/2023 9:54 AM EST) Anatomical Region [...] by: NANDO PALMA MD Tita Butt Dev CORE WINDER MACHINE OPERATOR IMG MAMMO ORDERABL ES documented in this encounter Visit Diagnoses Diagnosis Visit for screening mammogram Other screening mammogram documented in this encounter Care Teams Mill Supervisor Relationship Specialty Start Date End Date Dev, Tita Butt APRN [address] [place] [address] PCP - General Internal Medicine 05/15/22 documented as of this encounter
--- OUTSIDE RECORDS SUMMARY | 2023-12-08 19:56 | XMS_ITS | Encounter Summary ---
Author Organization [facility] [place] [address] Care Team Providers Care Civil Manager Name Role Phone Dev, Tita Butt APRN Primary Care Provider +1- [phone] Encounter Details Date Type Department Care Team (Late st Contact Info) Description 10/26/2022 1:00 PM EDT Office [place] [address] Akhil Martinez PA [facility] [place] [address] Surgery follow-up Social History Tobacco Use Types [...] as of this encounter Progress Notes * Akhil Martinez PA - 10/26/2022 1:00 PM EDT Images from the original note were not included. Plastic Surgery Follow Up Note CALLY Bruno. Reason for visit: follow up Date of surgery: 08/21/22 Procedure(s): Oromandibular reconstruction with right fibula free flap, skin graft from R thigh to right leg and submental opening (Freed) Complications: None reported HPI: Patient reports she has been well overall since last seen. 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 Scheduled for dental implants on 11/15. She has had a suture tail protruding from her incision just proximalto her RLE skin graft. Inquires about hair removal on her submental skin graft, states she has an electric device designed to be gentle on skin States her skin graft donor site remains quite red. Examination: Patient is alert, conversant, comfortable, ambulating Neck Incision: CDI, healing well. Spitting suture along left incision, so surrounding erythema or drainage. No collection, no erythema, no evidence of cellulitis. Submental skin graft: Excellent take, fully healed. RLE: Donor site healing nicely, expected hyperemia Skin graft with 100% take. Appears healthy. Spitting monocryl trimmed proximal to skin graft Intaoral: Inset incision clean/dry/intact, implants in place. Impression: Theresa Hollis is a 52 y.o. female who was seen today for follow up. Healing very well, no concerns at this time. Discussed that she may use her hair removal device on her submental skin graft, and that the donor site on her thigh will gradually become less red. Plan: Follow up for surgery as scheduled 11/15. Moisturize skin grafts with non scented lotion. Wash gently and pat dry. CALLY Owens documented in this encounter Plan of Treatment Not on file documented as of this encounter Visit Diagnoses Diagnosis Surgery follow-up Follow-up examination, following unspecified surgery documented in this encounter Care Teams Civil Manager Relationship Specialty Start Date End Date Dev, Tita Butt APRN [address] [facility] [address] [place] [address] PCP - General Internal Medicine 05/15/22 documented as of this encounter
--- OUTSIDE RECORDS SUMMARY | 2023-12-08 19:56 | XMS_ITS | Encounter Summary ---
Author Organization [facility] Address [facility] [place] [address] Care Team Providers Care Clay Hoister Name Role Phone Dev, Tita Butt APRN Primary Care Provider +1- [phone] Reason for Visit * Reason Comments Follow-up Doing well, needs fe eding tube changed Encounter Details Date Type Department Care Team (Late st Contact Info) Description 03/22/2023 9:00 AM EST Office [place] [phone] Roberth Lee MD [facility] [place] [address] H/O tongue cancer; Osteonecrosis of mandible Social History Tobacco Use Types Packs/Day Years Used Date Smoking Tobacco: Never Smokeless Tobacco: Never Alcohol Use Standard Drinks/Week Comments Not Currently 0 (1 standard drink = 0.6 oz pur e alcohol) seldom, 4 drinks per year [facility] Inpatient Questions Answer Date Recorded Does [...] - Inhaled Oxygen Concentration - - Weight 42.1 kg (92 lb 14.4 oz) 03/22/2023 8:40 A M EST Height 157.5 cm (5' 2) 03/22/2023 8:40 AM EST Body Mass Index 16.99 03/22/2023 8:40 AM EST documented in this encounter Progress Notes * Roberth Lee MD - 03/22/2023 9:00 AM EST Images from the original note were not included. Head and Neck Surgery Clinic Follow Up Note Theresa presents for follow-up status post mandibular reconstruction for osteoradionecrosis. She met with Dr. Cee earlier today and the plan is to revise her lower prosthesis. She thinks this will help with her articulation. Overall she feels that she is in a better emotional state on today's visit. She has been taking all of her nutrition by mouth and has not required use of her G- tube for at least the past few months and is hoping to have this removed today. She has no other new complaints ontoday's visit. Her G-tube Ba button was removed without difficulty and the site was dressed in the usual fashion. Assessment and recommendations: Stable examination. Functionally improved with removal of G-tube ontoday's visit. She has not seen Dr. Ng back in follow- up since her last visit in October and Amilcar reach out to his office to make those arrangements. She would like to hold off on any speech therapy for articulation until after her new prosthesis and we will reassess once she has had that made and has had a chance to use it for a bit. Overall she seems to be doing better and I am encouraged with her progress. Follow-up in 3 months. documented in this encounter Plan of Treatment Not on file documented as of this encounter Visit Diagnoses Diagnosis H/O tongue cancer Personal history of malignant neoplasm of tongue Osteonecrosis of mandible Aseptic necrosis of other bone site documented in this encounter Care Teams Clay Hoister Relationship Specialty Start Date End Date Edv, Tita Butt APRN [address] [place] [address] PCP - General Internal Medicine 05/15/22 documented as of this encounter
--- OUTSIDE RECORDS SUMMARY | 2023-12-08 19:56 | XMS_ITS | Encounter Summary ---
[place] [address] Care Team Providers Care Email Operations Manager Name Role Phone Dev, Tita Butt APRN Primary Care Provider +1- [phone] Encounter Details Date Type Department Care Team (Latest Contact Info) Description 03/22/2023 8:25 AM EST Laboratory Appointment Lab [address] [place] [address] Hypothyroidism (acquired) Social History Tobacco [...] Priority Date/Time Associated Diagnosis Comments TSH Routine 03/22/2023 8:32 AM EST Hypothyroidism (acquired) documented in this encounter Results * (ABNORMAL) TSH (03/22/2023 8:32 AM EST) Thyroid Stimulating Hormone 7.23(H) 0.27 - 4.20 mcIU/mL [facility] Comment: Reference Interval (mcIU/mL): Females: ??First Trimester: 0.23-3.88 ??Second Trimester: 0.22-3.90 ??Third Trimester: 0.44-4.66 Blood 03/22/2023 8:32 AM EST 03/22/2023 8:43 AM EST Narrative Resulting Agency Comment Spec In Lab Evelio Gimenez MD CHEMISTRY ORDERAB LES [facility] [address] documented in this encounter Visit Diagnoses Diagnosis Hypothyroidism (acquired) Unspecified hypothyroidism documented in this encounter Care Teams Email Operations Manager Relationship Specialty Start Date End Date Dev, Tita Butt APRN [address] [place] [address] PCP - General Internal Medicine 05/15/22 documented as of this encounter
--- OUTSIDE RECORDS SUMMARY | 2023-12-08 19:56 | XMS_ITS | Encounter Summary ---
Author Organization [facility] [place] [address] Care Team Providers Care Production Technologist Name Role Phone DevTita APRN Primary Care Provider +1- [phone] Reason for Visit * Reason Comments Follow Up Surgery Wound check, side of neck, and Rt leg Encounter Details Date Type Department Care Team (Late st Contact Info) Description 01/01/2023 10:20 AM EDT Office [place] [address] Nadine Bullock APRN [facility] [place] [address] Surgery follow-up Social History Tobacco Use Types [...] this encounter Patient Instructions * Patient Instructions* Nadine Bullock APRN - 01/01/2023 10:20 AM EDT Follow up PRN Moisturize skin graft donor site with non scented lotion. Wash gently and pat dry. Donor site scar treatment with silicone tape or scar massage. documented in this encounter Progress Notes * Nadine Bullock APRN - 01/01/2023 10:20 AM EDT Plastic Surgery Follow Up Note Provider: Nadine Bullock APRN Reason for visit: follow up wound check per cindy mora w/Dr. Lee appt s/p Oromandibular reconstruction with right fibula free flap, skin graft from R thigh to right leg and submental opening 08/21/22 GLF Date of surgery: 08/21/22 Procedure(s): Oromandibular reconstruction with right fibula free flap, skin graft from R thigh to right leg and submental opening (Luz Elena) Complications: None reported HPI: Patient reports she is doing ok. Patient reports that she had a spitting suture. Patient asks if she should have another application of silver nitrate to her right leg donor site. Theresa has beenapplying Aquaphor to her leg and asks if she should continue. Patient is accompanied today. Examination: Patient is alert, conversant, comfortable, ambulating Neck Incision: 2x3 mm area of adherent crust where she had a surfacing suture; no erythema and no drainage Donor site with hyperemic scar. Impression: Theresa Hollis is a 52 y.o. female who was seen today for follow up. Healing very well, no concerns at this time. Patient's 02/05/[address] Laguna has been cancelled; the patient will call clinic to reschedule and coordinate with other appointments when needed. Plan: Follow up PRN Moisturize skin graft donor site with non scented lotion. Wash gently and pat dry. Donor site scar treatment with silicone tape or scar massage. Nicole Romano, have performed the documentation for this encounter in the presence of and acting as a scribe for Nadine Bullock APRN. I performed the services which were documented by the scribe, and I agree with the accuracy of the documentation in this encounter. NADINE BULLOCK APRN documented in this encounter Plan of Treatment Not on file documented as of this encounter Visit Diagnoses Diagnosis Surgery follow-up Follow-up examination, following unspecified surgery documented in this encounter Care Teams Production Technologist Relationship Specialty Start Date End Date Dev, Tita Butt APRN [address] [place] [address] PCP - General Internal Medicine 05/15/22 documented as of this encounter
--- OUTSIDE RECORDS SUMMARY | 2023-12-08 19:56 | XMS_ITS | Encounter Summary ---
Author Organization [facility] [place] [address] Care Team Providers Care Tenter Frame Back Tender Name Role Phone Dev, Tita Butt APRN Primary Care Provider [phone]- [phone] Encounter Details Date Type Department Care Team (Late st Contact Info) Description 04/04/2023 Telephone [place] [id number] Maria Esther Dobbins LNA Social History Tobacco Use Types Packs/Day Years Used Date Smoking Tobacco: Never Smokeless Tobacco: Never Alcohol Use Standard Drinks/Week Comments Not Currently 0 (1 standard drink = 0.6 oz pur e alcohol) seldom, 4 drinks per year [facility] Inpatient Questions Answer Date Recorded [...] encounter Miscellaneous Notes * Telephone Encounter - Maria Esther Dobbins LNA - 04/04/2023 9:11 AM EST Attempted to call patient to schedule follow up visit with Dr. Ng. I left . 05/17/23 at 3:30with Dr. Ng. documented in this encounter Plan of Treatment Not on file documented as of this encounter Visit Diagnoses Not on filedocumented in this encounter Care Teams Tenter Frame Back Tender Relationship Specialty Start Date End Date Dev, Tita Butt APRN [address] [facility] [address] [place] [address] PCP - General Internal Medicine 05/15/22 documented as of this encounter
--- OUTSIDE RECORDS SUMMARY | 2023-12-08 19:56 | XMS_ITS | Encounter Summary ---
Author Organization [facility] [place] [address] Care Team Providers Care Director Quality Assurance Name Role Phone DevTita APRN Primary Care Provider +1- [phone] Encounter Details Date Type Department Care Team (Late st Contact Info) Description 01/01/2023 Telephone Max[place] [phone] Amy Flowers Social History Tobacco Use Types [...] * Telephone Encounter - Amy Flowers - 01/01/2023 11:[address] Pascal's office again to remind them to contact patient for her follow up appt in their office. Bear Keeper said she would try texting Theresa first and then call if needed today. documented in this encounter Plan of Treatment Not on file documented as of this encounter Visit Diagnoses Not on filedocumented in this encounter Care Teams Director Quality Assurance Relationship Specialty Start Date End Date Dev, Tita Butt APRN [address] [facility] [address] [place] [address] PCP - General Internal Medicine 05/15/22 documented as of this encounter
--- OUTSIDE RECORDS SUMMARY | 2023-12-08 19:56 | XMS_ITS | Encounter Summary ---
Author Organization [facility] [place] [address] Care Team Providers Care Stud Driver Name Role Phone DevTita APRN Primary Care Provider [phone]- [phone] Encounter Details Date Type Department Care Team (Late st Contact Info) Description 09/14/2022 8:30 AM EDT Office [place] [address] Hermelindo Kearney PA [facility] [address] H/O tongue cancer; Osteoradionecrosis of jaw; Dysphagia, unspecified type; Drooling Social History Tobacco Use Types Packs/Day Years [...] as of this encounter Progress Notes * Hermelindo Kearney PA - 09/14/2022 8:30 AM EDT [facility] OTOLARYNGOLOGY FOLLOW UP NOTE Theresa Hollis is a 52 y.o. female followed for: oral cancer; osteoradionecrosis of the mandible Primary site: Left lateral tongue Stage: [id number] Surgery(ies): 10/31/06 - Hemiglossectomy, left neck dissection [...] procedure. No evidence of tumor was identified. Prior to discharge, she was decannulated prior to discharge. New issues since last visit: No pain. No fevers. No swelling. Tube feeds going well. Maintaining weight. Is noting increased saliva; requests something to use apart from the scopolamine patches. PROBLEM LIST Patient Active Problem List Diagnosis [...] M62.838 Throat discomfort R07.0 Mandible fracture S02.609A PAST MEDICAL HISTORY Past Medical History: Diagnosis [...] Prior to Visit Medication Sig Dispense Refill oxyCODONE (Roxicodone) 5 mg tablet 1 tablet by Per G Tube route every 4 hours as needed for Pain. 20 tablet 0 chlorhexidine (Peridex) 0.12 % Mouthwash Take 15 mLs by mouth 2 times daily. Swish and spit. Do notswallow. 120 mL 0 levothyroxine (Synthroid) 100 mcg tablet TAKE ONE TABLET BY MOUTH EVERY DAY 90 tablet 3 fluocinolone and shower cap (Encinal-Smoothe/FS Scalp Oil) 0.01 % Oil Apply topically to scalp under shower cap nightly for up to 2 weeks for flares then 1- 3 times weekly prn maintenance. 118 mL 3 ibuprofen (ADVIL;MOTRIN) 100 mg/5 mL Suspension Take by mouth every 4 hours as needed for Fever. No current facility-administered medications on file prior to visit. ALLERGIES Allergies Allergen Reactions Tylenol [Acetaminophen] Anaphylaxis Allergenic Uksukox-Wuqo-Rgltw Itching Applesauce Peanut Itching Benzocaine Made pt tongue red and angry. Irritant reaction - allergy testing negative Birch Other (See Comments) Birch pollen: wheezing and throat constriction ROS 8 point Review of Systems was [...] and intact. - No evidence of nystagmus. MOUTH - Post-surgical changes noted. - Flap reconstruction appears healthy, without bone exposure; no evidence of infection. NECK - Neck incisions well-approximated with shayna in place. - Graft site with good take, healing well. - Tracheostomy partially closed, about 4mm in size; no evidence of infection. - Trachea midline without deviation. NEURO - Cranial nerves II-XII grossly intact and symmetric. - Responds appropriately to questions. PSYCHE - Normal mood and affect. PROCEDURES REVIEW OF IMAGES/STUDIES ASSESSMENT/RECOMMENDATIONS - Recovering well from her procedures, with no significant postoperative complications since discharge. Her surgical sites are healthy-appearing, without signs of infection. Discussed trial of robinul for her excessive saliva, and that if the side-effects from it are unpleasant, she can simply stoptaking it, and use the scopolamine patches instead. - The patient expressed understanding of these points and agreement with the plan, and all questions that were asked were answered to the patient's satisfaction. Plan: > Return to clinic in in 1 month for reassessment. > Trial of Robinul, 1mg, 3 times per day as needed. > Patient should call if their symptoms worsen or fail to improve, if new concerning symptoms arise, or if they have any questions or concerns regarding their treatment. I appreciate the opportunity to be involved in Ms. Hollis's care. Hermelindo Kearney PA-C [place], [place] [phone] Office 09/14/2022 documented in this encounter Plan of Treatment Not on file documented as of this encounter Visit Diagnoses Diagnosis H/O tongue cancer Personal history of malignant neoplasm of tongue Osteoradionecrosis of jaw Other specified disease of the jaws Dysphagia, unspecified type Drooling Disturbance of salivary secretion documented in this encounter Care Teams Stud Driver Relationship Specialty Start Date End Date Dev, Tita Butt APRN [address] [facility] [address] [place] [address] PCP - General Internal Medicine 05/15/22 documented as of this encounter
--- OUTSIDE RECORDS SUMMARY | 2023-12-08 19:56 | XMS_ITS | Encounter Summary ---
Author Organization [facility] [place] [address] Care Team Providers Care Educational Program Assistant Name Role Phone Dev, Tita Butt APRN Primary Care Provider [phone]- [phone] Reason for Visit * Speech Therapy (Routine) - Closed Specialty Diagnoses / Procedures Referred By Shirley cuevas Referred To Contact Speech Therapy Diagnoses Osteoradionecrosis of jaw Toño Pacheco MD [facility] [place] [address] Roberth Rojas, COMPUTER EQUIPMENT INSTALLER [facility] PHYSICAL MEDICINE & [place] [address] Referral ID Status Reason Start Date Expiration Date V isits Requested Visits Authorized [id number] Closed Evaluate and Treat 09/08/2022 09/08/2023 30 30 Encounter Details Date Type Department Care Team (Latest Contact Info) Description 09/14/2022 10:00 AM EDT Office [place] [address] Roberth Rojas, COMPUTER EQUIPMENT INSTALLER Oropharyngeal dysphagia Social History Tobacco Use Types [...] Notes * Initial Evaluation - Roberth Rojas, COMPUTER EQUIPMENT INSTALLER - 09/14/2022 10:00 AM EDT Speech-Language Pathology Office Swallow Evaluation 09/14/2022 10:45 AM 1970 Referring MD: Toño Pacheco MD Date seen by referring MD: 09/14/22 Total Treatment Time: 30 min. Total Timed Code Treatment: 0 min. Certification Period: N/a KX modifier used beginning on date: N/A History: Patient is a 52 y.o. female with a history of [id number] SCCa of the left lateral tongue s/p [...] liquids as well as significant pooled secretions. . Pt now returns for outpatient follow-up. 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 Hyperlipidemia Hypothyroidism S: Pt. Arrived for appointment. Sitting upright. Pt. denies pain at this time. O: Current diet: G-tube dependent. Respiratory Status: On RA. Trach dressing in place. Feeding / Oral Care Status: Pt is independent. Oral / Laryngeal Mechanism Clinical Assessment: Lingual: Protrusion and ROM in all planes is reduced. Labial: Adequate labial seal. Velar: Velar elevation is present. Vocal fold function and airway protection: Vocal quality fluctuates between clear and gurgly on ownsecretions. Bolus Presentation(s) [place]-thick liquids by spoon. Oral Preparatory Phase Mastication: N/A Oral Transit: Labored. Requires slight head tilt back for gravity assist. Bolus Cohesion: Decreased in the setting of decreased tongue movement. Labial Seal / Loss: Negative. Oral Stasis: Mild, generalized. Pharyngeal Phase Initiation: Poor. Pt was not able to initiate a swallow. Laryngeal Elevation: Significantly reduced. Vocal quality change: Wet vocal quality likely related to penetration / aspiration. Cough: Delayed. Likely related to aspiration. Pt. complaint of food getting stuck: Positive with nectar-thick liquids. A: Dx: Moderate oral dysphagia with severe pharyngeal dysphagia. Summary: Pt presents with decreased oral manipulation and control of nectar-thick liquids. Requires compensatory strategies to complete anterior to posterior oral transit. Pharyngeal swallow is consistent with that observed during FEES on 09/06/22. Pt continues to demonstrate signs of aspiration with nectar-thick liquids. Now exhibiting difficulty initiating a pharyngeal swallow as well. Discussed continuing to attempt effortful swallow when managing secretions. Also discussed below exercises in attempt to start improving laryngeal elevation and base of tongue retraction. . Education: Presented Pitch exercise with E and gutteral G exercises for laryngeal elevation and base of tongue retraction. Encouraged a minimum of 10 repetitions of each exercise, 3 times daily. Pt is also to continue attempting an effortful swallow when trying to swallow her secretions. P: RECOMMENDATIONS: NPO continue G-tube feedings. Good oral care. Initiate above exercise program. Frequency of care: Speech Pathology to follow for 10 treatment visits. Next visit is planned in 1 weeks time. Appointment made. . Pt./family are in agreement with treatment plan. Short-Term Goals: Pt will tolerate least restrictive diet without evidence of dysphagia / aspiration Pt will independently demonstrate tongue-base retraction exercises with good execution Pt will independently demonstrate larynegeal elevation exercises with good execution. Pt / caregiver will follow aspiration precautions, diet modifications, and safe swallowing strategies. Long-Term Goals: Pt will maintain hydration / nutrition with optimal safety and efficiency. Thank you for this consult with this patient. Please feel free to page me with any questions or concerns. Roberth Rojas MS, [facility]-COMPUTER EQUIPMENT INSTALLER Inpatient Rehabilitation Medicine Pager: # [phone] documented in this encounter Plan of Treatment Scheduled Referrals Name Type Priority Associated Diagnoses Orde r Schedule Referral to Speech Therapy Outpatient Referral Routine Osteoradionecrosis of jaw Ordered: 09/08/2022 documented as of this encounter Visit Diagnoses Diagnosis Oropharyngeal dysphagia Dysphagia, oropharyngeal phase documented in this encounter Care Teams Educational Program Assistant Relationship Specialty Start Date End Date Dev, Tita Butt APRN [address] [facility] [address] [place] [address] PCP - General Internal Medicine 05/15/22 documented as of this encounter
--- OUTSIDE RECORDS SUMMARY | 2023-12-08 19:56 | XMS_ITS | Encounter Summary ---
[place] [address] Care Team Providers Care Elementary Vocal Music Teacher Name Role Phone DevTita APRN Primary Care Provider +1- [phone] Reason for Referral * Diagnostic Test (Routine) - Closed Specialty Diagnoses / Procedures Referred By Contac t Referred To Contact Radiology Diagnoses H/O tongue cancer Dysphagia, unspecified type Osteoradionecrosis of jaw Procedures IR Low Profile Sarthak-Quintero Placement IR G-Tube Check/Change Hermelindo Kearney PA [facility] [place] [address] [place] [address] Referral ID Status Reason Start Date Expiration Date V isits Requested Visits Authorized [id number] Closed Specialty Service Requested 11/03/2022 05/06/2024 1 1 Reason for Visit * Diagnostic Test (Routine) - Closed Specialty Diagnoses / Procedures Referred By Contac t Referred To Contact Radiology Diagnoses H/O tongue cancer Dysphagia, unspecified type Osteoradionecrosis of jaw Procedures IR Low Profile Sarthak-Quintero Placement IR G-Tube Check/Change Hermelindo Kearney PA [facility] [place] [address] [facility] [place] [address] Referral ID Status Reason Start Date Expiration Date V isits Requested Visits Authorized [id number] Closed Specialty Service Requested 11/03/2022 05/06/2024 1 1 Encounter Details Date Type Department Care Team (Latest Contact Info) Description 11/09/2022 10:04 AM EDT - 11/09/2022 11:59 PM EDT Hospital [place] [address] Roberth Lee MD [facility] [place] [address] H/O tongue cancer; Dysphagia, unspecified type; Osteoradionecrosis of jaw Discharge Disposition: Home Social History Tobacco Use [...] Sign Reading Time Taken Comments Blood Pressure 95/65 11/09/2022 11:33 AM EDT Pulse 63 11/09/2022 11:33 AM EDT Temperature 37 ??C (98.6 ??F) 11/09/2022 11:33 AM EDT Respiratory Rate 16 11/09/2022 11:33 AM EDT Oxygen Saturation 100% 11/09/2022 11:33 AM EDT Inhaled Oxygen Concentration - - Weight - - Height - - Body Mass Index - - documented in this encounter Discharge Instructions * Discharge Instructions* Diana Raphael RN - 11/09/2022 11:27 AM EDT Discharge Instructions for Feeding Tube Care You had a feeding tube placed to help with your nutrition. The tube is either in your stomach, or your small intestine, depending on which tube you and your doctor decided upon. Please read the following instructions on how to care for your new feeding tube, and how to prevent, and treat, possible issues. How to care for your feeding tube: * The most common problem seen with feeding tubes is clogging. Proper flushing is the best way to avoid this issue. * Flush the feeding tube (you will use a special syringe for this) with 30-60 cc of room temperature or warm water every 4-6 hours during continuous feeding, anytime the feeding is interrupted, before and after every intermittent feeding or medication administration, or at least once or twice a daywhen the tube is not being used. DO NOT USE ACIDIC IRRIGANTS SUCH CRANBERRY JUICE OR COLA BEVERAGES TO FLUSH THE TUBE. These fluids will contribute to clogging. * Ask your provider to convert all your medications into liquid form. If you have medications whichare in pill or powder form, make sure they are crushed (ask your provider or pharmacist which medications cannot be crushed) and dilute them really well. Administer each medication separately as thiswill help prevent potential medication interactions and associated clogging. * If flushing becomes difficult, contact the Interventional Radiology department. DO NOT FORCEFULLY FLUSH, as this may result in rupture of the tube and injury to your intestine. * If you have the NON Low profile STEPHENIE-QUINTERO feeding tube the retention balloon (side port labeled ???BAL?? ) should be checked every 1-2 weeks. It should contain between 5 cc of water. If it is low this should be replaced. Do not put medications or flush through this port. * If you have a low profile ???SARTHAK-QUINTERO?? feeding tube, the retention balloon (side port labeled ???BAL?? ) should be checked every 1-2 weeks. It should contain between 5 cc of water. If it islow this should be replaced. Do not put medications or flush through this port. If your tube becomes clogged: *DO NOT USE CRANBERRY JUICE, COLA DRINKS, MEAT TENDERIZER OR CHYMOTRYPSIN. Okay to use clear, white, sugar-free solutions such as water, seltzer water and DIET Vibha Asha. *Make sure the feeding tube is not kinked or clamped off. If the clog is visible above the skin surface gently massage or ???milk?? the tube between fingers to break up the clog. Then flush the tubegently. STOP if it remains clogged. *Place the special syringe into the lumen of the tube and gently pull back, then depress the plunger to dislodge the clog. Gently continue these steps until the clog dislodges. If it does not dislodge, contact Interventional Radiology. DO NOT INSERT FOREIGN OBJECTS INTO THE TUBE. 2 If your tube falls out: You have been provided with a small red rubber catheter. If your tube falls out, place this catheter into the hole in your skin, about 6 inches, and tape well to the skin. Please do not flush the tube or put tube feedings through this catheter until you have contacted Interventional Radiology. How to care for the skin around the feeding tube: * It is normal to see a small amount of yellow mucous accumulate around the tube. Gently cleanse the site with mild soap and water and pat dry. Try to avoid allowing the mucous to build up and scab. Clean sutures, external bolsters and any stabilizing devices with mild soap and water using a Q-tip.DO NOT USE HYDROGEN PEROXIDE. This can damage the tube and is harsh on the skin. * You may shower with the waterproof dressing on for the first 3 days. Then you may shower with thedressing off, cleansing the area as instructed. You can replace the dressing, or leave it off if you wish. No swimming, tub baths or whirlpools WITHOUT a waterproof bandage for the first 4 weeks. When to call your provider: * If you develop pain at the site of your feeding tube that doesn???t resolve with pain medications. * If you develop abdominal pain or bloating with flushing or feeding. * If you develop redness, swelling or drainage from the around the feeding tube or suture sites. * If you develop bleeding around or through the tube * If you have trouble flushing the tube, or if the feedings are running slower than usual * If you notice any damage to the tube or its attachments. INTERVENTIONAL RADIOLOGY PHONE NUMBERS [phone] If you have a NON Low profile feeding tube, call with any questions or concerns. During regular office hours call: [phone]. If it is after regular office hours, weekends or holidays, please call [phone] and ask to speak to the Towboat Engineer extrusion die repair manager for Interventional Radiology. If you have a low profile ???SARTHAK-QUINTERO?? feeding tube, please call Nadine Early RN for any issues: [phone]. Revised 01/02/19 documented in this encounter Medications at Time [...] mouth daily. 90 tablet 3 03/22/2023 05/27/2023 glycopyrrolate (RobinuL) 1 mg tablet Take 1 tablet by mouth 3 times daily. 90 tablet 1 09/14/2022 11/14/2022 scopolamine (Transderm-Scop) 1 mg over 3 days patch 3 day Change 1 patch on the skin every 3 days. 10 patch 12 09/14/2022 11/14/2022 chlorhexidine (Peridex) 0.12 % Mouthwash Take 15 mLs by mouth 2 times daily. Swish and spit. Do not swallow. 120 mL 09/08/2022 11/14/2022 levothyroxine (Synthroid) 100 mcg tablet TAKE ONE TABLET BY MOUTH EVERY DAY 90 tablet 3 07/31/2022 03/22/2023 fluocinolone and shower cap ([place]-Smoothe/FS Scalp Oil) 0.01 % Oil Apply topically to scalp under shower cap nightly for up to 2 weeks for flares then 1-3 times weekly prn maintenance. 118 mL 3 03/23/2021 11/14/2022 documented as of this encounter Progress Notes * Katina Gonzales RN - 11/09/2022 11:10 AM EDT [facility] DATAB[facility] Name: Theresa Hollis Date of : 1970 AGE: 52 y.o. [address]: [address] [place] [address] (home) [phone] (work) Mobile: Telephone Information: Referring Provider: Hermelindo Kearney REASON FOR VISIT: Order Questions Answers Where will study be performed? [facility] Radiology [120] Is the patient on anticoagulant / antiplatelet therapy ? No Reason for exam and clinical history: G-tube change to sarthak-e in H&N cancer patient. G-tube placed on 09/13 Clinical information / quintero questions for radiologist: G-tube change to sarthak-e in H&N cancer patient. G-tube placed on 09/13 Exam/Procedure requested: G-tube change to sarthak-e in H&N cancer patient. G-tube placed on 09/13 Is the patient ? Unknown Planned procedure: Gasstrostomy tube exchange Labs to be performed day of procedure: No labs Sedation: No Sedation Prophylactic antibiotic : None Contrast: Omnipaque Additional medications for procedure: Lido jelly; Lidocaine Planned access site: Left jairo-abdomen Position: Supine Consent: Pending Medications to discontinue (and days held): None Case Urgency:: G2- Elective Outpatient intervention within 8-14 days Allergies Allergen Reactions Tylenol [Acetaminophen] Anaphylaxis Allergenic Hvknwhm-Rrox-Npruk Itching Applesauce Peanut Itching Benzocaine Made pt tongue red and angry. 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 Onto table supine. All monitors, O2, safety strap in place.Meds per protocol. Laboratory Results: Lab Results Component Value Date CREATININE 0.55 (L) 09/07/2022 Lab Results Component Value Date K 4.6 09/07/2022 Lab Results Component Value Date PLATELET 555 (H) 09/07/2022 documented in this encounter Plan of Treatment Not on file documented as of this encounter Procedures Procedure Name Priority Date/Time Associated Diagnosis Comments IR LOW PROFILE SARTHAK-QUINTERO PLACEMENT Routine 11/09/2022 11:30 AM EDT H/O tongue cancer Dysphagia, unspecified type Osteoradionecrosis of jaw documented in this encounter Results * IR Low Profile Sarthak-Quintero Placement (11/09/2022 11:30 AM EDT) Anatomical Region Laterality Modality X-Ray Angiograph y Narrative 11/09/2022 11:28 AM EDT INTERVENTIONAL RADIOLOGY PROCEDURE NOTE Procedure: Conversion of Gastrostomy Catheter to a Low-Profile (SARTHAK-QUINTERO) Catheter Indication for Procedure: ?? Dysphagia, SCCa of the left lateral tongue; need for intermediate manager enteral access for nutrition. ??Request for conversion [...] procedure was performed under fluoroscopic guidance. ??A burglar alarm assembler fluoroscopic image was obtained. ??Contrast was injected through the gastrostomy catheter and another fluoroscopic image was obtained. ??Through the catheter, an 0.035 Amplatz wire was advanced. ??The catheter was removed. ??Over the wire, the stomal measuring device was advanced, retention balloon inflated, measurement obtained, retention balloon deflated and device removed. ??Subsequently, a new 16-Fr, 3.5-cm stomal length low-profile (SARTHAK-QUINTERO) gastrostomy catheter was advanced. ??The retention balloon [...] of the jaws documented in this encounter Administered Medications Inactive Administered Medications - up to 3 most recent administrations Medication Order MAR Action Action Date Dose Rate Site iohexoL (Omnipaque) (350 mg/mL) solution 1-400 mL 1-400 mL, Other, ONCE, 1 dose, On Afia 11/09/22 at 1045, For intra-procedural use by proceduralist., Angio/IR (Intra-Procedure), Routine Given 11/09/2022 10:45 AM EDT 10 mLs lidocaine (Glydo) 2 % gel 6 mL 6 mL, Topical (Top), EVERY 4 HOURS PRN, Starting on Afia 11/09/22 at 1028, Until Afia 11/09/22 at 1147, Pain, For use in Interventional Radiology (IR) only for procedure with direct provider supervision and verbal order., Angio/IR (Intra-Procedure), Routine Given 11/09/2022 10:38 AM EDT 6 mLs lidocaine (Xylocaine) 1% (10 mg/mL) injection 10 mg 10 mg, Subcutaneous, ONCE, 1 dose, On Afia 11/09/22 at 1045, For use in Interventional Radiology (IR) only for procedure with direct provider supervision and verbal order., Angio/IR (Intra-Procedure), Routine Given 11/09/2022 11:18 AM EDT 10 mg documented in this encounter Care Teams Elementary Vocal Music Teacher Relationship Specialty Start Date End Date Dev, Tita Butt APRN [address] [place] [address] PCP - General Internal Medicine 05/15/22 documented as of this encounter
--- OUTSIDE RECORDS SUMMARY | 2023-12-08 19:56 | XMS_ITS | Encounter Summary ---
Author Organization [place] [address] Care Team Providers Care Chicken Hatchery Helper Name Role Phone Tita Méndez APRN Primary Care Provider +1- [phone] Encounter Details Date Type Department Care Team (Latest Contact Info) Description 10/26/2022 Travel Social History Tobacco Use Types Packs/Day [...] on filedocumented in this encounter Care Teams Chicken Hatchery Helper Relationship Specialty Start Date End Date Tita Méndez APRN [address] [place], [place] [id number] PCP - General Internal Medicine 05/15/22 documented as of this encounter
--- OUTSIDE RECORDS SUMMARY | 2023-12-08 19:56 | XMS_ITS | Encounter Summary ---
[place] [address] Care Team Providers Care Account Executive Name Role Phone Tita Méndez APRN Primary Care Provider +1- [phone] Encounter Details Date Type Department Care Team (Late st Contact Info) Description 10/17/2022 Telephone [place] [id number] Terri Nance Social History Tobacco Use Types Packs/Day Years [...] encounter Miscellaneous Notes * Telephone Encounter - Terri Nance - 10/17/2022 11:26 AM EDT Ruchi, Patient is scheduled to have surgery on 11/15/2022 . Follow up appointment is as follows: No follow up indicated in case. Thank you!! documented in this encounter Plan of Treatment Not on file documented as of this encounter Visit Diagnoses Not on filedocumented in this encounter Care Teams Account Executive Relationship Specialty Start Date End Date Michelle Méndezh M, ONLINE MARKETING STRATEGIST [address] [facility] [address] [place] [address] PCP - General Internal Medicine 05/15/22 documented as of this encounter
--- OUTSIDE RECORDS SUMMARY | 2023-12-08 19:56 | XMS_ITS | Encounter Summary ---
Author Organization [facility] [place] [address] Care Team Providers Care Engineering Job Titles Name Role Phone Dev, Tita Butt APRN Primary Care Provider +1- [phone] Encounter Details Date Type Department Care Team (Late st Contact Info) Description 10/24/2022 Notes [place] [id number] Darren Perez MD [facility] [place] [address] Social History Tobacco Use Types Packs/Day Years [...] as of this encounter Progress Notes * Darren Perez MD - 10/24/2022 3:37 PM EDT Interventional radiology was contacted by patient this afternoon with chief complaint of mild, diffuse abdominal pain. Patient had G-tube placed by IR in August 2022. Patient recently presented to interventional radiology for site check of her G-tube on 10/17/2022 as she was noting that the cuff was causing her some discomfort. The cuff appeared to be too tight for the patient's activity level and itwas adjusted to provide more room for patient movement. Today patient states that she has had mild, diffuse abdominal pain noting that she has been exercising more regularly since her site [facility]. She denies discharge or erythema associated with the G-tube and also denies fevers and chills. G-tube has been functioning normally and has not become dislodged. She also notes that she has been taking more p.o. in recent days ,thus decreasing her need for useof the tube. Given the lack of concerning signs of infection or malpositioning of the tube, patient discomfort may be due to increased physical activity. Low suspicion that there is an acute issue with the G-tubeat this time. Discussed with the patient continuing to monitor her pain at this time. She was in agreement with this plan. Of note, patient has an appointment at [facility] to see plastic surgery on 10/26 and if her symptoms worsen could be seen in same-day for another site check if needed. Patient encouraged to reach out to interventional radiology if new or worsening symptoms related to the G-tube occur in the interim. Darren Perez, PGY-3 documented in this encounter Plan of Treatment Not on file documented as of this encounter Visit Diagnoses Not on filedocumented in this encounter Care Teams Engineering Job Titles Relationship Specialty Start Date End Date Dev, Tita Butt APRN [address] [place] [address] PCP - General Internal Medicine 05/15/22 documented as of this encounter
--- OUTSIDE RECORDS SUMMARY | 2023-12-08 19:56 | XMS_ITS | Encounter Summary ---
Author Organization [facility] [place] [address] Care Team Providers Care Dinkey Brakeman Name Role Phone DevTita APRN Primary Care Provider +1- [phone] Encounter Details Date Type Department Care Team (Late st Contact Info) Description 11/30/2022 Telephone [place] [phone] Nicki Miles Social History Tobacco Use Types Packs/Day Years Used Date Smoking Tobacco: Never Smokeless Tobacco: Never Alcohol Use Standard Drinks/Week Comments Not Currently 0 (1 standard drink = 0.6 oz pur e alcohol) seldom, 4 drinks per year [facility] Inpatient Questions Answer Date Recorded Does [...] * Telephone Encounter - Nicki Miles - 11/30/2022 11:09 AM EDT Spoke with pt in regards to appt on 12/14. documented in this encounter Plan of Treatment Not on file documented as of this encounter Visit Diagnoses Not on filedocumented in this encounter Care Teams Dinkey Brakeman Relationship Specialty Start Date End Date Dev, Tita Butt APRN [address] [place] [address] PCP - General Internal Medicine 05/15/22 documented as of this encounter
--- OUTSIDE RECORDS SUMMARY | 2023-12-08 19:56 | XMS_ITS | Encounter Summary ---
[place] [address] Care Team Providers Care Manager Hydraulic Name Role Phone Dev, Tita Butt APRN Primary Care Provider +1- [phone] Reason for Visit * Auth/Cert (Routine) Specialty [...] LESS, MOUTH (WRVU 8.6) Keyur Ng MD [facility] [place] [address] [facility] Referral ID Status Reason Start Date Expiration Date Visits Re quested Visits Authorized [id number] 1 1 Encounter Details Date Type Department Care Team (Late st Contact Info) Description 11/15/2022 7:30 AM EDT - 11/15/2022 10:15 AM EDT Surgery [place] [address] Keyur Ng MD [facility] [place] [address] VESTIBULOPLASTY,ENTIRE ARCH (WRVU 16.8) Social History Tobacco Use Types Packs/Day Years [...] Reading Time Taken Comments Blood Pressure 103/70 11/15/2022 6:21 AM EDT Pulse 68 11/15/2022 6:21 AM EDT Temperature 37.5 ??C (99.5 ??F) 11/15/2022 6:21 AM ED T Respiratory Rate 16 11/15/2022 6:21 AM EDT Oxygen Saturation 98% 11/15/2022 6:21 AM EDT Inhaled Oxygen Concentration - - [...] any questions or problems or send a my message. Keyur Ng MD documented in this [...] MD Plastic Surgery Preoperative H&P: Patient Name: Thereas Hollis Patient : [id number] Today's Date: 11/15/2022 [...] IR G-Tube Placement 09/05/2022 Francisco Oliver MD [facility] INTERVENTIONL RAD LYMPHADENECTOMY SND 1-5 PERCUTANEOUS GASTROSTOMY N/A 09/05/2022 PERCUTANEOUS GASTROSTOMY performed by Francisco Oliver MD at [facility] [place] PRO ADJ TISS XFER HEAD, FAC, HAND <10SQCM 08/21/2022 ADJ.TISSUE TRANSFER, REARRANGEMENT, 10SQ.CM OR LESS, NECK (WRVU 8.6) performed by Cheo Laguna MDat [facility] MAIN OR PRO BONE BIOPSY,TROCAR/NEEDLE SUPERF Left 05/06/2014 BIOPSY BONE, TROCAR OR NEEDLE, SUPERFICIAL, MANDIBLE performed by Alfred Vital MD at [facility] [place] PRO BONE-SKIN GRAFT, MICROVASCULAR 08/21/2022 @FLAP, FREE OSTEOCUTANEOUS W MICROVASC, FIBULA (WRVU 45.43) performed by Cheo Laguna MD at [facility] MAIN OR PRO CERVICAL LYMPHADECTOMY MODIFIED RADICAL NECK DISSECTION Right 08/21/2022 @CERVICAL LYMPHADENECTOMY (MODIFIED RADICAL NECK DISSECTION)-JANA , ROBOTIC (WRVU 23.95) performed by Roberth Lee MD at [facility] MAIN OR PRO DEBRIDEMENT BONE MUSCLE &/FASCIA 20 SQ CM/< Bilateral 11/17/2019 DEBRIDEMENT SKIN, SUBCU, MUSCLE, BONE, HEAD/NECK (WRVU 4.1) performed by Keyur Ng MD at [facility] MAIN OR PRO EXCISION OF BONE, LOWER JAW Bilateral 08/21/2022 EXCISION OF BONE, MANDIBLE (WRVU 10.03) performed by Roberth Lee MD at [facility] MAIN OR PRO IMPRESSION & PREPARATION MANDIBULAR RESECTION PROSTHESIS N/A 08/21/2022 IMPRESSION AND CUSTOM PREPARATION,MANDIBULAR RESECTION PROSTHESIS (WRVU 22.85) performed by Keyur Ng MD at [facility] MAIN OR PRO INJECTION PLATELET PLASMA WITH IMAGE, HARVEST/PREP 11/17/2019 INJECTION(S), PLATELET RICH PLASMA, ANY SITE, INCLUDING IMAGE GUIDANCE, HARVESTING AND PREPARATION WHEN PERFORMED performed by Keyur Ng MD at [facility] MAIN OR PRO RECONSTR JAW, FULL ENDO IMPLNT N/A 08/21/2022 RECONSTRUCT MANDIBLE OR MAXILLA, ENDOSTEAL IMPLANT, COMPLETE (WRVU 18.77) performed by Keyur Ng MD at [facility] MAIN OR PRO RECONSTR MANDIBLE, BONE PLATE 08/21/2022 RECONSTRUCT MANDIBLE, EXTRAORAL, W/ TRANSOSTEAL BONE PLATE (WRVU 13.62) performed by Cheo Laguna MD at [facility] MAIN OR PRO REMOVAL ERUPTED TOOTH WITH ELEVATION OF MUCOPERIOSTEAL FLAP N/A 05/06/2014 SURGICAL EXTRACTIONS REQUIRING ELEVATION OF MUCOPERIOSTEAL FLAP AND REMOVAL OF BONE OR SECTION OF TOOTH performed by Alfred Vital MD at [facility] MAIN OR PRO REMOVAL ERUPTED TOOTH WITH ELEVATION OF MUCOPERIOSTEAL FLAP Bilateral 11/17/2019 SURGICAL EXTRACTIONS REQUIRING ELEVATION OF MUCOPERIOSTEAL FLAP AND REMOVAL OF BONE OR SECTION OF TOOTH (WRVU 1.09) performed by Keyur Ng MD at [facility] MAIN OR PRO SPLIT GRFT TRUNK, ARM, LEG <100SQCM N/A 08/21/2022 SPLIT THICK SKIN GRAFT,100 SQ CM OR LESS, LEGS (WRVU 9.9) performed by Cheo Laguna MD at [facility] MAIN OR PRO TRACHEOSTOMY, PLANNED N/A 08/21/2022 TRACHEOSTOMY, PLANNED (WRVU 5.56) performed by Roberth Lee MD at [facility] MAIN OR SKIN GRAFT Family History [...] Allergies Allergen Reactions Tylenol [Acetaminophen] Anaphylaxis Allergenic Tkagood-Hlji-Drshg Itching Applesauce Peanut Itching Benzocaine Made pt [...] Jennifer Mcneill MD Plastic Surgery Resident P# [id number] * Keyur Ng MD - 11/15/2022 7:10 [...] Ng MD - 11/15/2022 8:36 AM EDT [facility] Operative Note Patient Name: Theresa Hollis : [id number] MR#: [id number] Case Date: 11/15/2022 Surgeon: Surgeon(s) and Role: [...] Associated Diagnosis Comments Reconstruc Mouth Entire Arch ([address]) Yes 11/15/2022 7:47 AM EDT Osteoradionecrosis of [...] disease of the jaws Status post surgery Osteoradionecrosis of jaw Other specified disease of the jaws Status post surgery documented in this encounter Administered Medications Inactive Administered Medications - up to 3 most recent administrations Medication Order MAR Action Action Date Dose Rate Site BUpivacaine-EPINEPHrine (Marcaine-epiNEPHrine) 0.25 %-1:200,000 injection PRN, Starting on Sun11/15/22 at 0855, Until Sun11/15/22 at 1451, Intra-Operative (Intra-Procedure), Routine Given 11/15/2022 10:18 AM EDT 3 mLs 19- Surgical Site Given 11/15/2022 8:55 AM EDT 5 mLs 19 - Surgical Site diphenhydrAMINE (Benadryl) capsule 25 mg 25 [...] Routine documented in this encounter Care Teams Manager Hydraulic Relationship Specialty Start Date End Date Dev, Tita Butt APRN [address] [place] [address] PCP - General Internal Medicine 05/15/22 documented as of this encounter
--- OUTSIDE RECORDS SUMMARY | 2023-12-08 19:56 | XMS_ITS | Encounter Summary ---
Author Organization [facility] [place] [address] Care Team Providers Care Senior Corporate Strategy Manager Name Role Phone Dev, Tita Butt APRN Primary Care Provider +1- [phone] Encounter Details Date Type Department Care Team (Late st Contact Info) Description 05/04/2023 Telephone [place] [phone] Maria Esther Dobbins LNA Social History Tobacco Use Types Packs/Day Years Used Date Smoking Tobacco: Never Smokeless Tobacco: Never Alcohol Use Standard Drinks/Week Comments Not Currently 0 (1 standard drink = 0.6 oz pur e alcohol) seldom, 4 drinks per year [facility] Inpatient Questions Answer Date Recorded Does [...] Encounter - Maria Esther Dobbins LNA - 05/04/2023 12:40 PM EST Called patient to see if she can come in on 05/11 at 8:[address] Pascal and Dr. Ng. I have left a VM with call back number. documented in this encounter Plan of Treatment Not on file documented as of this encounter Visit Diagnoses Not on filedocumented in this encounter Care Teams Senior Corporate Strategy Manager Relationship Specialty Start Date End Date Dev, Tita Butt APRN [address] [facility] [address] [place] [address] PCP - General Internal Medicine 05/15/22 documented as of this encounter
--- OUTSIDE RECORDS SUMMARY | 2023-12-08 19:56 | XMS_ITS | Encounter Summary ---
Author Organization [facility] [place] [address] Care Team Providers Care Media Relations Coordinator Name Role Phone Dev, Tita Butt APRN Primary Care Provider +1- [phone] Reason for Visit * Reason Comments Follow-up Things are alright Encounter Details Date Type Department Care Team (Late st Contact Info) Description 01/01/2023 11:00 AM EDT Office [place] [phone] Roberth Lee MD [facility] [place] [address] H/O tongue cancer; Osteonecrosis of mandible; Oropharyngeal dysphagia Social History Tobacco Use Types Packs/Day Years Used Date Smoking Tobacco: Never Smokeless Tobacco: Never Alcohol Use Standard Drinks/Week Comments Not Currently 0 (1 standard drink = 0.6 oz pur e alcohol) seldom, 4 drinks per year [facility] Inpatient Questions Answer Date Recorded Does [...] - Inhaled Oxygen Concentration - - Weight 44.3 kg (97 lb 9.6 oz) 01/01/2023 11:05 A M EDT Height - - Body Mass Index 17.85 11/15/2022 6:21 AM EDT documented in this encounter Progress Notes * Roberth Lee MD - 01/01/2023 11:00 AM EDT Images from the original note were not included. [facility] Follow Up Note Theresa presents for follow-up after extensive resection of necrotic mandible and fibular free flap reconstruction with dental implants and oral prosthesis. She had a fairly nerissa postoperative course with prolonged need for tracheostomy and significant dysphagia which she is slowly improving. She isno longer required the trach. She has had a number of frustrations with her postoperative course most specifically the duration of time and is taken to achieve various milestones. 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 She also feels that her prosthetic although this is temporary is too big for her mouth. We went over number of her concerns and the issuessurrounding recovery especially after a major operation like she has had and with all of her prior treatments delaying her recovery especially her swallowing. I did encourage her to reach out to Dr. Cee to see if she can have a more low-profile prosthetic and also encouraged her to continue to work with speech therapy for her articulation and for strengthening for swallowing. She will continue to assess her progress and we will touch base again in a few months time to see how she is doing. Time spent for this encounter including reviewing records, imaging, counseling, and coordination ofcare: 25 minutes. 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
--- OUTSIDE RECORDS SUMMARY | 2023-12-08 19:56 | XMS_ITS | Encounter Summary ---
Author Organization [facility] [place] [address] Care Team Providers Care Tool Planner Name Role Phone DevTita APRN Primary Care Provider +1- [phone] Encounter Details Date Type Department Care Team (Latest Contact Info) Description 01/01/2023 Travel Social History Tobacco Use Types Packs/Day [...] on filedocumented in this encounter Care Teams Tool Planner Relationship Specialty Start Date End Date Tita Méndez APRN [address] [place], [place] [id number] PCP - General Internal Medicine 05/15/22 documented as of this encounter
--- OUTSIDE RECORDS SUMMARY | 2023-12-08 19:57 | XMS_ITS | Encounter Summary ---
Author Organization [facility] [place] [address] Care Team Providers Care Supervisor Pipeline Name Role Phone Dev, Tita Butt APRN Primary Care Provider [phone] Reason for Referral * Speech Therapy (Routine) - Closed Specialty Diagnoses / Procedures Referred By Shirley cuevas Referred To Contact Speech Therapy Diagnoses Osteoradionecrosis of jaw Toño Pacheco MD [facility] [place] [address] Roberth Agudelo, INFORMATION DEVELOPER [facility] PHYSICAL MEDICINE & [place] [address] Referral ID Status Reason Start Date Expiration Date V isits Requested Visits Authorized [id number] Closed Evaluate and Treat 09/08/2022 09/08/2023 30 30 * Diagnostic Test (Routine) - Closed Specialty Diagnoses / Procedures Referred By Shirley cuevas Referred To Contact Radiology Diagnoses Gastrostomy tube in place Procedures IR Suture Release Francisco Oliver MD [facility] [place] [address] [facility] [place] [address] Referral ID Status Reason Start Date Expiration Date V isits Requested Visits Authorized [id number] Closed Specialty Service Requested 09/05/2022 03/07/2024 1 1 * Home Health Care (Routine) - Closed Specialty Diagnoses / Procedures Referred By Contac t Referred To Contact Diagnoses Osteoradionecrosis of jaw Roberth Lee MD [facility] [place] [address] [facility] [place] [address] Referral ID Status Reason Start Date Expiration Date V isits Requested Visits Authorized [id number] Closed Consult, Test & Treat 09/08/2022 03/07/2023 999 999 Reason for Visit * Auth/Cert (Routine) Specialty Diagnoses / Procedures Referred By Contgumaro t Referred To Contact Diagnoses Personal history of malignant neoplasm of tongue Inflammatory conditions of jaws ORN mandible H/O tongue cancer Z85.810 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, 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 Procedures PRO EXCISION OF BONE, LOWER JAW PRO EXPLORATION NOT FOLLOWED BY SURG NECK ARTERY PRO RECONSTR MANDIBLE, BONE PLATE PRO TRACHEOSTOMY, PLANNED PRO PREP FACE/ORAL PROST TEMP OBTURATOR PRO RECONSTR JAW, FULL ENDO IMPLNT PRO BONE-SKIN GRAFT, MICROVASCULAR EXCISION OF BONE, MANDIBLE (WRVU 10.03) @EXPLORATION NOT FOLLOWED BY SURGICAL REPAIR, ARTERY; NECK (CAROTID OR SUBCLAVIAN) (WRVU 7.5) RECONSTRUCT MANDIBLE, EXTRAORAL, W/ TRANSOSTEAL BONE PLATE (WRVU 13.62) TRACHEOSTOMY, PLANNED (WRVU 5.56) IMPRESSION AND CUSTOM PREPARATION, INTERIM OBTURATOR PROSTHESIS (WRVU 22.31) RECONSTRUCT MANDIBLE OR MAXILLA, ENDOSTEAL IMPLANT, COMPLETE (WRVU 18.77) @FLAP, FREE OSTEOCUTANEOUS W MICROVASC, FIBULA (WRVU 45.43) Roberth Lee MD [facility] [place] [address] [facility] Referral ID Status Reason Start Date Expiration Date Visits Re quested Visits Authorized [id number] 1 1 Encounter Details Date Type Department Care Team (Latest Contact Info) Description 08/21/2022 6:10 AM EDT - 09/08/2022 1:30 PM EDT Hospital Encounter Neuro Special Care Unit Level 5 [place] [id number] Roberth Lee MD [facility] [place] [address] H/O tongue cancer; Osteoradionecrosis of jaw; Tachycardia; Gastrostomy tube in place; Dyspnea, unspecified type Discharge Disposition: Home with VNA Social History Tobacco Use Types Packs/Day Years [...] Sign Reading Time Taken Comments Blood Pressure 127/58 09/08/2022 7:15 AM EDT Pulse 78 09/07/2022 7:13 AM EDT Temperature 36.2 ??C (97.2 ??F) 09/08/2022 4:30 AM ED T Respiratory Rate 21 09/08/2022 7:15 AM EDT Oxygen Saturation 97% 09/08/2022 7:15 AM EDT Inhaled Oxygen Concentration - - Weight 41.6 kg (91 lb 11.4 oz) 09/08/2022 6:00 A M EDT Height 157.5 cm (5' 2.01) 09/08/2022 6:00 AM ED T Body Mass Index 16.77 09/08/2022 6:00 AM EDT documented in this encounter Discharge Summaries * Toño Pacheco MD - 09/08/2022 10:12 AM EDT OTOLARYNGOLOGY - HEAD & NECK SURGERY DISCHARGE SUMMARY General Info Patient Name: Theresa Hollis Patient Age: 52 y.o. Birthdate: 1970 Admit date: 08/21/2022 Discharge date: 09/08/22 Attending Physician: Roberth Lee MD Admission Info Diagnoses: Osteoradionecrosis of the mandible Operations/Major Procedures: Procedure(s) (LRB): PERCUTANEOUS GASTROSTOMY (N/A) 1. Tracheostomy 2. Mandibular resection 3. Head right neck dissection levels 1B and 2A 4. Fibular free flap reconstruction Findings: Fistula in the left chin from the mandible with necrotic mandibular bone. Extensive radiation fibrosis of the neck making dissection extremely difficult and prolonging the portion of this procedure. No evidence of tumor was identified. History of Presentation: The below history was copied from Office Visit with Dr. Lee 06/01/22: Theresa Hollis is a 51 y.o. female followed for: ORN mandible She has a history of oral cancer as follows: Primary site: Left lateral tongue Stage: [id number] Surgery(ies): 10/31/06 - Hemiglossectomy, left neck dissection 1-5, skin graft, allograft Radiation: TREATMENT STARTED: 11/28/06 TREATMENT COMPLETED: 01/14/07 TREATMENT: The total maximum dose was 6600 cGy in 33 fractions. Volume reductions were instituted at 5400 cGy in 30 fractions & 6000 cGy in 30 fractions. Chemotherapy: Concurrent cisplatin She comes in to discuss the upcoming surgery to address her ORN She also feels that she is having more reactions to different kinds of foods. Had seen an allergistin 2019 and actually was taking chlorpheniramine with some positive effect but stopped taking. Extensive discussion about the procedure to resection the ORN using preoperative surgical planning,jaw in a day approach, right neck exploration to find vessels for recon, need for dobhoff tube, possible g-tube, likely will need a trach due to her difficult airway history, visor flap to expose the mandible but may need to do lip split. She and her has a number of questions all of whichwere answered to her satisfaction. Regarding the food allergies, I suggested that maybe restart thechlorpheniramine and if no improvement revisit with the weeder. She was satisfied with this plan. Reason for Admission: Postoperative observation Hospital Course: The patient tolerated the above procedure well and was admitted post-operatively for routine care. She was admitted to the surgical ICU postoperatively for every hour flap checks and supportive care. There were no flap concerns and she was downgraded to step down status POD2 and floor status POD3. Placement of a Dobbhoff tube was attempted on POD 1 unsuccessfully ultimately resulting in placement of NGT under direct visualization and sedation. Patient then started trickle tube feeds which wereslowly advanced to goal continuous and ultimately bolus tube feeds. She tolerated tube feeds well. She worked with INFORMATION DEVELOPER on POD 8 and her feeding tube was removed on POD 9 in an attempt to encourage more p.o. intake. The patient complained of difficulty swallowing and fatigue during eating. She also was noted to have significant coughing after swallowing. She was evaluated by the INFORMATION DEVELOPER and was initially cleared for a full liquid diet. A bedside flexible laryngoscopy was performed which demonstrateddecreased movement of her left vocal cord as well as significant pooling of secretions in the hypopharynx. She was made n.p.o. and parenteral nutrition was initiated. The patient at this time expressed desire to pursue a G-tube and a consult to general surgery and interventional radiology was placed. Due to limited operating room availability, the G-tube was not able to be placed until 09/13. The following morning, tube feeds were restarted and tolerated well and TPN was discontinued. She continued to work with INFORMATION DEVELOPER throughout the hospital stay. The patient had a right neck drain that was placed in the operating room. The drain output steadilydecreased throughout the hospitalization and the drain was ultimately removed on 09/05. The patient had a 6CN75H tracheostomy tube placed in the operating room. The patient was initially on heated trach collar and the cuff was deflated on POD 1. The trach was ultimately changed to a cuffless trach on 08/25 and downsized to a 4UN65H on 08/28. Following trach change, the patient toleratedtrach capping for several days. Decannulation was postponed until after the patient's G-tube procedure after which the trach was removed. The patient did well following decannulation and was able to phonate with finger occlusion of the stoma. Please refer to the patient instructions for detailed wound care instructions from plastic surgery. The patient also worked with BIT during the hospitalization, which helped her manage her feelings of anxiety. Her hospital course was uncomplicated and she was deemed medically stable for discharge home at 3 Days Post-Op. Physical Exam on Discharge: General: NAD, non-ill appearing, resting comfortably in bed. Face: Symmetric without dysmorphic features. Eyes: EOMI, conjunctiva healthy. L periorbital edema. Ears: Auricles symmetric, no lesions Nose: Patent nares, grossly normal appearance Oral Cavity/Pharynx: Mucosa is pink, oropharynx symmetric. Mandibular suture lines intact without apparent dehiscence, flap is pink, warm, and well perfused. Granulation tissue anteriorly - stable Neck: Soft, trachea midline. Decannulation dressing in place, fonger occlusion reinforced. Generalized induration/erythema of neck. Crusting along suture lines. Submental skin graft intact with some crusting present as well. Chest: Non-labored breathing, regular rate on RA Neuro: Alert & oriented, moving extremities x 4 Lab Data: Recent Labs 09/07/22 0030 09/06/22 0403 WBC 6.8 6.1 HGB 8.9* 8.8* HCT 27.0* 26.3* PLATELET 555* 593* NA 140 139 K 4.6 4.2 CL 103 103 CO2 29 26 BUN 23* 20* CREATININE 0.55* 0.47* GLUCOSE 88 74 CALCIUM 9.4 9.0 MAGNESIUM 0.94 0.99 PHOS 4.3 3.8 Imaging and Other Studies: XR Abdomen 1 view (Generic) Result Date: 08/22/2022 EXAMINATION: XR ABDOMEN 1 VIEW (GENERIC) CLINICAL HISTORY: s/p direct laryngoscopy for NGT placement TECHNIQUE: Single view of the abdomen submitted for review. COMPARISON: Chest x-ray 08/22/2022 FINDINGS: Nasogastric tube placement with side hole projecting over the GE junction. Tip overlies the mid stomach. Mild gaseous prominence of the colon. No free air. Nasogastric tube placement with side hole projecting over the GE junction. Tip overlies the mid stomach. Thank you for letting us participate in the care of this patient. If you are a health care provider and have any questions regarding this report, please contact the number below. For patients who have questions please contact the health director critical care that requested your imaging first. Electronically signed by: LILY CELESTE MD, [facility] ([phone]), at 08/22/2022 6:52 PM XR Abdomen 1 view (Generic) Result Date: 08/22/2022 EXAMINATION: XR ABDOMEN 1 VIEW (GENERIC) CLINICAL HISTORY: s/p NGT placement (as entered by ordering provider in the order requisition) TECHNIQUE: Portable supine AP view of the upper abdomen. The right lateral margin of the abdominal cavity and the lower abdomen and pelvis are excluded from the imaged [id number]. COMPARISON: Abdominal radiograph 08/22/2022. FINDINGS: This enteric tube with its tip and side-port projecting over the expected location of the right mainstem bronchus. Lung bases are clear. Multiple prominent loops of gas- filled bowel are partially visualized in the left upper abdomen. 1. Enteric tube tip and side-port project over the expected location of the right mainstem bronchus. I Nicki Castanon MD discussed the results (Impression #1) with JEANINE Root on 08/22/2022 4:13 PM and verified that the results were understood. Meredith reported that they had already pulled the enteric tube. We discussed that if there is concern for pneumothorax a dedicated chest radiograph is recommended. Thank you for letting us participate in the care of this patient. If you are a health care provider and have any questions regarding this report, please contact the number below. Forpatients who have questions please contact the health director critical care that requested your imagingfirst. Electronically signed by: Nicki Castanon MD, [facility] ([phone]), at 08/22/2022 4:14 PM XR Abdomen 1 view (Generic) Addendum Date: 08/22/2022 --------ADDENDUM #1-------- The Workflow Coordinator verified with Meredith Root APRN on 08/22/2022 12:03 PM to acknowledgement of the results. Thank you for letting us participate in the care of this patient. If you are a health care provider and have any questions regarding this report, please contact the number below. For patients who have questions please contact the health director critical care that requested your imaging first. Electronically signed by: Parish Gomes MD, [facility]([phone]), at 08/22/2022 12:12 PM --------ORIGINAL REPORT -------- EXAMINATION: XR ABDOMEN 1 VIEW (GENERIC) CLINICAL HISTORY: s/p DHt placement TECHNIQUE: AP portable semierect view of the abdomenor lower chest. COMPARISON: None FINDINGS: A feeding tube is present passing down the right mainstem bronchus with the tip apparently in the right lower lobe behind the hemidiaphragm. IMPRESSION: Feeding tube is present with the tip in the right lower chest. Thank you for letting us participate in the care of this patient. If you are a health care provider and have any questions regarding this report, please contact the number below. For patients who have questions please contact the health director critical care that requested your imaging first. Electronically signed by: Parish Gomes MD, [facility] ([phone]), at 08/22/2022 11:53 AM Result Date: 08/22/2022 EXAMINATION: XR ABDOMEN 1 VIEW (GENERIC) CLINICAL HISTORY: s/p DHt placement TECHNIQUE: AP portablesemierect view of the abdomen or lower chest. COMPARISON: None FINDINGS: A feeding tube is present passing down the right mainstem bronchus with the tip apparently in the right lower lobe behind the h emidiaphragm. Feeding tube is present with the tip in the right lower chest. Thank you for letting us participatein the care of this patient. If you are a health care provider and have any questions regarding this report, please contact the number below. For patients who have questions please contact the healthcare professional that requested your imaging first. Electronically signed by: Parish Gomes MD, [facility] ([phone]), at 08/22/2022 11:53 AM XR PICC Placement Over 5 Years with Imaging Guidance (IV Team) Result Date: 09/02/2022 EXAMINATION: XR PICC PLACEMENT OVER 5 YEARS WITH IMAGING GUIDANCE (IV TEAM) CLINICAL HISTORY: Confirmation of PICC line placement TECHNIQUE: C-arm placement of PICC line. Limited view of the line tiponly. Two images were taken but no adjustments to the PICC were made between the images. COMPARISON: Chest radiograph dated 08/22/2022 FINDINGS/IMPRESSION: Intraprocedural frontal radiograph of the mediastinum demonstrates a right-sided PICC line, with the catheter tip projected at the lower SVC, best visualized on image labeled #2.Preliminary report signed by: Nicki Beaver at 09/02/2022 4:41 PM I have personally reviewed the image(s) and the resident's interpretation and agree with the findings, Silvia Lee MD at 09/02/2022 5:04 PM Thank you for letting us participate in the care of this patient. If you are a health care provider and have any questions regarding this report, please contact the number below. For patients who have questions please contact the health director critical care that requested your imaging first. Electronically signed by: Silvia Lee MD, [facility] ([phone]), at 09/02/2022 5:04 PM IR G-Tube Placement Result Date: 09/05/2022 Table formatting from the original result was not included. Images from the original result were not included. IR PROCEDURE NOTE Procedure: Gastrostomy tube placement. Indication for Procedure: Per Princess ALAMO, Theresa Lutz Bunny is a 52 y.o. female with PMH of SCCa of the left lateral tongue who presents to Interventional Radiology to undergo gastrostomy tube placement with anesthesia support. Patient is s/p hemiglossectomy, left neck dissection 1-5, skin graft, allograft (10/31/06) followed by adjuvant chemo XRT now presenting with ORN of the mandible. She underwent tracheostomy, neck exploration, mandible excision, and fibula free flap reconstruction 08/21 with ENT and PRS. Patient previously had a G-tube (~2006, not at ) and is reportedly worked well for her, so expressed desire for replacement, as she does not believe she can meet her nutritional demands with PO intake alone. Given above, primary team consulted IR for gastrostomy tube placement. She is currently AVSS, with trach airway device in place. Per primary team, patient is consentable. Procedure events and findings: Patient was positioned supine on the procedure table under Anesthesia. Prophylactic antibiotic wasadministered. The epigastrium was prepared in sterile fashion after U/S to determine the left lateral and caudal extent of the liver. Maximum sterile barrier technique was used throughout. A 4 Frenchglide catheter was placed as a nasoenteric tube under fluoroscopy with the aid of a Glidewire. Catheter was used for insufflation of the stomach. The skin over the stomach was infiltrated with 1% lidocaine for local anesthesia. An 18 ga needle was advanced under fluoroscopic guidance into the stomach with return of air and contrast injection showing gastric folds. A T anchor was deployed. Two additional T anchors were placed in the same manner. In the triangle formed by the T anchors, an 18ga needle was directed into the gastric lumen, confirmed with aspiration and contrast injection. Over an0.035?? guidewire, the tract was dilated with an 8mm balloon catheter. A 16 [place] balloon retained gastrostomy tube was placed. The retention balloon of the gastrostomy tube was filled with 5 cc ofsterile water and contrast injection via the gastrostomy tube confirmed location within the gastriclumen. Medications: 1% Lidocaine <10ccs subcutaneous, glucagon 1 mg IV, and as per Anesthesia. Antibiotic Prophylaxis: Ancef 2 grams IV. Est Blood Loss: <5cc. Complications: No immediate. Impression: 1. Placement of 16Fr balloon retained gastrostomy tube, ready for use. 2. Gastric retention Tanchors to be released in 7-10 days. Resident/Fellow: None. Attending: Dr. Melody Romano performed thisprocedure. SCAN DOC: TELEMETRY STRIPS Result Date: 08/24/2022 Ordered by an unspecified provider. SCAN DOC: TELEMETRY STRIPS Result Date: 08/22/2022 Ordered by an unspecified provider. SCAN DOC: TELEMETRY STRIPS Result Date: 08/22/2022 Ordered by an unspecified provider. SCAN DOC: TELEMETRY STRIPS Result Date: 08/21/2022 Ordered by an unspecified provider. XR Chest One View Result Date: 09/07/2022 EXAMINATION: XR CHEST ONE VIEW CLINICAL HISTORY: new dsypnea following coughing fit TECHNIQUE: 1 view of the chest COMPARISON: 08/30/2022 FINDINGS: Interval removal of the tracheostomy, enteric tube. Interval placement of a right upper extremity PICC with the distal tip at the superior cavoatrial junction. Multiple surgical clips again seen in the neck and left supra clavicular fossa. Lungs are well expanded. No airspace consolidation or focal lesion. There is no pleural effusion or pneumothorax. Cardiac and mediastinal contours are normal. No central pulmonary vascular congestion or interstitial edema. Bones unremarkable. No pneumothorax, pleural effusion or other acute/focal pulmonary process. Thank you for letting us participate in the care of this patient. If you are a health care provider and have any questions regarding this report, please contact the number below. For patients who have questions please contactthe health director critical care that requested your imaging first. Electronically signed by: Thong Lee MD, [facility] ([phone]), at 09/07/2022 4:26 PM XR Chest One View Result Date: 08/30/2022 EXAMINATION: XR CHEST ONE VIEW CLINICAL HISTORY: thick secretions per trach, subjective SOB TECHNIQUE: AP view of the chest COMPARISON: August 22, 2021 FINDINGS: The lungs are now clear. The previously described left basilar opacity has resolved. There is no pulmonary edema. The costophrenic angles are sharp. No pneumothorax is seen. There is a normal heart size. A tracheostomy tube is unchanged in its position. An enteric catheter reaches the fundus of the stomach. Surgical shayna and clips are present in the neck. No acute cardiopulmonary disease. Thank you for letting us participate in the care of this patient.If you are a health care provider and have any questions regarding this report, please contact the number below. For patients who have questions please contact the health director critical care that requested your imaging first. Electronically signed by: Dar Villanueva MD, [facility] ([phone]), at 08/30/2022 8:43 AM XR Chest One View Result Date: 08/22/2022 EXAMINATION: XR CHEST ONE VIEW CLINICAL HISTORY: s/p multiple enteral tube placements, want to ruleout PTX TECHNIQUE: 1 view of the chest COMPARISON: Chest radiograph 01/19/2014 FINDINGS: Tracheostomy tube in place. Faint left basilar opacity.. No pleural effusion or pneumothorax. The cardiomediastinal silhouette, taras, and pulmonary vasculature are within normal limits. Surgical changes in the left supraclavicular region. Partially visualized dilated loops of large bowel are present in the LEFT upper quadrant 1. Faint left basilar opacity which can be seen in atelectasis or pneumonitis. 2. No pneumothorax. 3. Distended loops of colon in the LEFT upper quadrant Preliminary report signed by: Hermelindo Garcia at 08/22/2022 5:35 PM I have personally reviewed the image(s) and the resident's interpretation and agree with the findings, LILY CELESTE MD at 08/22/2022 5:39 PM Thank you for letting us participatein the care of this patient. If you are a health care provider and have any questions regarding this report, please contact the number below. For patients who have questions please contact the healthcare professional that requested your imaging first. Discharge Info Discharge Condition: Stable Discharge to: Home with VNA Discharge Medications: Your Medications New Medications Dose Details chlorhexidine 0.12 % Mouthwash Commonly known as: Peridex Take 15 mLs by mouth 2 times daily. Swish and spit. Do not swallow. 15 mL Quantity: 120 mL Refills: 0 oxyCODONE 5 mg tablet Commonly known as: Roxicodone 1 tablet by Per G Tube route every 4 hours as needed for Pain. 5 mg Quantity: 20 tablet Refills: 0 scopolamine 1 mg over 3 days patch 3 day Commonly known as: Transderm-Scop Change 1 patch on the skin once for 1 dose. Remove after 3 days. 1 patch Quantity: 1 patch Refills: 0 Continued medications, unchanged Dose Details fluocinolone and shower cap 0.01 % Oil Commonly known as: [place]-Smoothe/FS Scalp Oil Apply topically to scalp under shower cap nightly for up to 2 weeks for flares then 1-3 times weekly prn maintenance. Quantity: 118 mL Refills: 3 ibuprofen 100 mg/5 mL Suspension Commonly known as: Motrin Take by mouth every 4 hours as needed for Fever. Refills: 0 levothyroxine 100 mcg tablet Commonly known as: Synthroid TAKE ONE TABLET BY MOUTH EVERY DAY Quantity: 90 tablet Refills: 3 STOPPED Medications acetaminophen 160 mg/5 mL Suspension Commonly known as: Tylenol amoxicillin-clavulanate 500-125 mg tablet Commonly known as: Augmentin ketoconazole 2 % Cream Commonly known as: Nizoral Updated Allergies/ADRs: Allergies Allergen Reactions Tylenol [Acetaminophen] Anaphylaxis Allergenic Pqkzltu-Lzxa-Mpaez Itching Applesauce Peanut Itching Benzocaine Made pt tongue red and angry. Irritant reaction - allergy testing negative Birch Other (See Comments) Birch pollen: wheezing and throat constriction Info for Patient Patient Instructions Instructions for Patient at Discharge: What to expect: You will have soreness which will improve over the next several days. The area around the incision may be numb. This should recover over the next few months. Laryngoscopy After a laryngoscopy, you may experience sore throat, some painful swallowing, and brief change in voice. You can use pain medications for sore throat in addition to over the counter agents such as Chloraseptic, Menthol cough drops/lozenges, honey, tea, and warm or cool drinks as tolerated for easethe sore throat. Since we took biopsies, you may have some bleeding from the mouth, however, if this does not resolve within 24-36 hours or becomes lion active bright red bleeding that does not stop, please call theoffice or check with your local ED to be evaluated. Nasal Endoscopy You might have some mild nasal bleeding. If you start having a nose bleed, first step is to hold pressure to your nose for 15-20 minutes consecutively. If this does not resolve the nose bleed, then spray over the counter Afrin (or oxymetazoline) five times in both nares and then hold pressure for 15-20 minutes. If this does not resolve the nose bleed, then please call the office or ENT on-call orcheck with your local ED to be evaluated. Medications: Pain Control - use acetaminophen (Tylenol) and/or ibuprofen (Motrin, Advil) as needed. You can take 500 mg to 650 mg of Tylenol every 4-6 hours as needed. Do not exceed 4g acetaminophen per day and do not drink alcohol while taking tylenol. You can also take 400 to 600 mg of Ibuprofen (Motrin,Advil) every 6 hours as needed. For more severe pain, take the prescribed pain medication every 4-6 hours. As your pain improves, wean yourself off of the prescribed pain medication. Do not drive or operatemachinery while taking the prescribed pain medication. Constipation - Consider the use of OTC Senna/Docusate, Miralax, Metamucil, prune juice or various suppositories if you have any constipation (especially if related to narcotic/opoid related pain medication) Incision Care: Your incision was closed with sutures/shayna. These will need to be removed in about 7-14 days, which will usually occur at your follow up appointment. Use diluted peroxide to clean the incision andapply Aquaphor/Vaseline twice daily. Keep the incision dry for the next two days. After that you may get the area wet and pat dry (it is okay to shower). Do not submerge the incision for at least 2 weeks. Wound Care: Neck: Apply a thin layer of Aquaphor over staple line as needed for dryness. Apply gauze over any areas of drainage Left leg: Twice daily Aquaphor to both the lower leg and thigh wounds. Trach/Stoma Care: You have been decannulated - meaning, we removed your tracheostomy tube. You have a tracheostomy stoma which you will need to apply a occlusive dressing. Place a yellow xeroform gauze folded in a 1 inch by 1 inch square over the stoma hole, then place a 2x2 gauze, and then place a tegaderm film dressing. Every time you cough or talk, you should put your finger to the stoma hole to help the hole close. This should close in couple weeks. We will re-evaluate in 1 week at your follow-up appointment. G Tube Care: You are being discharged with a gastrostomy tube. This was placed by Interventional Radiology. Please call them at [phone] if any concerns. Oral Care: For all patients who had major oral surgery, you will be given a script for Peridex Rinse your mouth out well with water after eating, then use the prescription mouthwash (Peridex/Chlorhexidine) every time after eating. You should also use this mouthwash first thing in the morning and just before be dtime. You can get Peridex on the $4 list at [facility]. Activity: A good rule of thumb is if it hurts don't do it. Keep your head elevated when lying flat. No heavy lifting or straining for the next week. No smoking, this is important for wound healing. Diet: Ok to swallow a few teaspoons of thickened fluids for swallowing practice. Tube Feeding: Administer the tube feedings according to the following schedule/instructions: Cotninue goal of: 300 ml of Complete Standard 1.4, 4 times per day plus 2 scoop of protein powder daily. Start with 100 mL over an hour, increase by 100 mL each feed until goal of 300 mL/hr is achieved. Flush with 60 ml water before and after each feed to maintain patency and for hydration. Suggest 100 ml free water BID Compleat Standard 1.4 Total Volume Per Day: 1200 mL Scoops of Protein Powder: 2 Calories per Day: 1730 Protein per Day: 98 g Free Water mL per Day: 981 % RDI: 120 % You should call your doctor if you develop: -Difficulty breathing -Increasing pain and redness -Increasing drainage from the wound -Fever > 38.5Celsius or 101 Fahrenheit -Bleeding Contact: -You can reach the ENT clinic at [phone] for appointment questions. -The ENT triage nurse is available at [phone] -For urgent issues during evenings (5 PM - 7 AM) and weekends the ENT resident senior front end developer can be reached through the main hospital regulator operator at [phone] Follow Up: You will need to follow up with ENT in 6 days. This appointment has been requested. You will be notified once it is scheduled, if you do not already see it below. If you do not hear from us in a timely manner, please call to receive your date and time. You will also need to follow-up with plastic surgery, which has been set up for you, as well. We will try our best to coordinate this with your other appointments. Please call [phone] to receiveyour date and time. You will also need to follow up with speech therapy and nutrition, which has been set up for you, as well. We will try our best to coordinate this with your other appointments. You will be notified once it is scheduled. If you do not see these appointments listed below and you don't hear from us jason timely manner, please call . Currently Scheduled Appointments: Future Appointments and Orders Future Appointments and Orders Future Appointments Provider Department Dept Phone 09/14/2022 8:30 AM Hermelindo Kearney PA Otolaryngology at [facility] Arrive at: Dental Ceramist Assistant Area 4F [phone] 09/14/2022 8:30 AM Kam Mclean PA Maxillofacial Surgery at [facility] Arrive at: Dental Ceramist Assistant Area 5B [phone] 09/14/2022 9:00 AM Dimitry Marin PA Plastic Surgery at [facility] Arrive at: Dental Ceramist Assistant Area 4M [phone] 09/14/2022 9:30 AM [facility] IR RECOVERY Radiology at [facility] Arrive at: 3Z RADIOLOGY [phone] 09/14/2022 10:00 AM Roberth Agudelo, INFORMATION DEVELOPER Otolaryngology at [facility] Arrive at: Dental Ceramist Assistant Area 4F [phone] 10/25/2022 11:00 AM Evelio Gimenez MD Endocrinology at [facility] Arrive at: Dental Ceramist Assistant Area 3A [phone] Future Orders Complete By Expires IR Suture Release [[id number] Custom] 09/12/2022 03/14/2023 Process Instructions: Scheduling Instructions: Comments: Questions: Where will study be performed?: [facility] Radiology Reason for exam and clinical history: s/p G tube placement 09/05/22, planning anchor release in 7-10days. Clinical information / ramos questions for radiologist: Exam/Procedure requested: What labs need to be collected during imaging study?: Is the patient on anticoagulant / antiplatelet therapy ?: No Is the patient ?: No Does patient require sedation?: GA rationale: Requested Time: Date of injury if applicable: [employer] Devices [EQ161 Custom] As directed Process Instructions: Scheduling Instructions: Comments: Please provide one standard FWW to be delivered to pt's room on day of d/c. Pt requires r/t gait instability s/p surgical intervention for oral CA with trach placement. Questions: Device Needed: WALKER (E0143) Patient Height (cm): 157.5 cm (5' 2) Patient Weight: 46 kg (101 lb 8 oz) Diagnosis: Oral cancer Referral for Home Tube feeds [DNE6917 CPT(R)] As directed Process Instructions: Scheduling Instructions: Comments: [facility] [address] [facility] [facility] [id number] (home) [phone] (work) - Telephone Information: Medicaid: NO Narrative: Patient has a feeding tube and requires tube feedings and supplies necessary to maintainnutritional support . 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 Length of Need: lifetime Number of Refills :12 ( needs to be a number from 0-12) Patient's: Hgt: Ht Readings from Last 1 Encounters: 08/21/22 : 157.5 cm (5' 2) Wgt: Wt Readings from Last 1 Encounters: 08/28/22 : 46 kg (101 lb 8 oz) Formula Ordered: Complete standard 1.4 Formula Volume/Rate/Feeding Schedule: 300 ml of Complete Standard 1.4, 4 times per day Kcal/ day provided: 1730 Modular Additives Kcal/day , if applicable: ResourceBeneProtein Other: 2 #scoops/day Free Water, if applicable: 100ml twice daily Feeding Tube Flushes: 60ml water before and after each feed Dressings at Tube site: DCD after cleansing with normal saline, change daily and as needed. Feeding Tube Type: Gtube Connection Type: ENFit Method of Administration: Syringe Additional instruction: Questions: Vendor / contact information: [facility] Patient location post discharge: [place], [place] Service requested: tube feed and supplies Start date: 08/31/2022 Responsible MD post discharge contact info: PCP Referral to [facility] [REF34 Custom] As directed Process Instructions: If no progress note charted, please enter Clinical details in comments. Scheduling Instructions: Comments: Please evaluate Theresa Hollis for admission to [facility]. [address] [facility] [address] (home) [phone] (work) Date of : 1970 Inpatient DOCUMENTATION FOR VNA SERVICES (INCLUDING THOSE PATIENTS WITH MEDICARE COVERAGE REQUIRING HOME VNA SERVICES AND/OR HOSPICE SERVICES) PATIENT'S LOCATION: [facility] [address] [address] (home) Cell: Telephone Information: Fence Erector Supervisor's Name: Theresa In discussion with the attending physician, it is certified that this patient is under their care and that they, or a Nurse Practitioner, Clinical Nurse specialist or Physician Knitting Machine Mechanic who is working directly with them, had a face to face encounter that meets the physician face to face encounter requirements with this patient on 09/08/22. 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 To provide the following care/treatments with the clinical findings supporting the need for services as follows: HOME CARE ORDERS: RN ORDERS: Assess vital signs, cardiopulmonary status, nutrition, hydration, elimination -Additional Orders: Monitor medication effectiveness and management, Reinforce education regarding health issues, and Assess wound or incision (Neck: Apply a thin layer of Aquaphor over staple line as needed for dryness. Apply gauze over any areas of drainage Left leg: Twice daily Aquaphor to both the lower leg and thigh wounds.) INFORMATION DEVELOPER: Evaluate and treat as appropriate. PUSH CONNECTOR ASSEMBLER: Emotional support and community case management. HOME HEALTH CARE AGENCY: [facility] [address] [address] Start of care: Within 24 to 48 hours of discharge. Questions: Disciplines Requested: Nursing Speech Language Pathology Medical Social Work (If Patient Meets Eligibility Requirements) Referral to Speech Therapy [[id number] Custom] As directed Process Instructions: Scheduling Instructions: Questions: Evaluation location?: In Clinic Reason for Speech Evaluation?: Recommended focus?: Oral Motor/Sensory Assessment Dysphagia General Instructions Plastic Surgery Wound Care Instructions Neck: Apply a thin layer of Aquaphor over staple line as needed for dryness. Apply gauze over any areas of drainage Left leg: Twice daily Aquaphor to both the lower leg and thigh wounds. Mental Health From [facility] (Behavioral Intervention Team), Inpatient psych services: Below is some information you may find helpful as you continue to navigate the psychological challenges associated with your medical condition and recovery. ................................................................................ ................................................................... You may experience grief and bereavement after a life altering accident or illness. This is natural- you need to mourn the loss of your previous abilities and get accustomed to new limitations and life changes. Psychological Stages of Recovery A major injury or illness requires both physical and emotional recovery and adjustments. You may experience any or all of the common stages of grieving. The process of grieving is not typically linear - a person may experience the stages in any order and may chick[place]om[place] indian tribe back to repeat any of the stages - this is all normal and expected. The common stages are: Denial: You may try to ignore the condition or forget about been seriously injured or ill. You may try to act like everything is ok because you have not yet fully accepted what has happened. Your mind may not be ready to face your situation; especially at first. Anger: As you begin to realize that the injury or illness is permanent and/or very serious, you maybecome frustrated and angry. You may be focused on how unfair your situation is. In the case of traumatic brain injury in particular, you may have difficulty controlling your emotions and lash out atothers. Bargaining: Bargaining is the desire to make sacrifices in order to recover things that have been lost. You may say that you'd give anything to get better, or that you will make specific changes in order to regain your prior health status. You may feel frustrated or upset when these efforts don't result in improvements. Depression: Depressed mood and sadness can feel overwhelming as you recover from an injury or illness. You may feel helpless and lose sight of meaning in your life. This may leave you feeling sad, hopeless, and depressed. It's important to seek help at this stage especially if it's prolonged and/orincludes thoughts about self-harm or suicide. Acceptance: Eventually, you can come to accept (or acknowledge) the accident or illness and the resulting changes in your life. Having acceptance can free you up to focus on what you can do and how to move forward in your life. Don't be discouraged if you chickahominy indian tribe back to any of the other stages at times - this is normal and expected. ................................................................................ .................... ............................................................................ Basic exercises for grounding/managing anxiety and stress Breathing Retraining Exercise: STEPS: Take a normal breath in (it may take 3 seconds) Pause Make your exhalation long (it may take 5-6 seconds) Pause You can add a word to help you focus during the exhalation (such as calm or peace or still) 4 -7- 8 Breath (Relaxation Exercise) STEPS: 1) Exhale completely through your mouth, making a whoosh sound. 2) Close your mouth and inhale quietly through your nose to a mental count of 4. 3) Hold your breath for a count of 7. 4) Exhale completely through your mouth, making a whoosh sound to a count of 8. This is one breath. Now inhale again and repeat the cycle... 5 Senses Grounding Exercise (when feeling panicky/overwhelmed in the moment) Look around at your surroundings Name: 5 things you can see 4 things you can feel 3 things you can hear 2 things you can smell 1 thing you can taste ................................................................................ .................... ................................................................................ ... When feeling demoralized, here are some suggestions: Activate a core identity Who do you know yourself to be? Think about which groups you belong to. Do you identify as a parent? A daughter or son? By your profession? Remind yourself of who you are, and what your values are. Try choose actions that are guided by your core values and identity. Shift from avoidant to active coping It???s natural to want to hide in bed. Try to be active though - even if something small. Turn on the music or tidy up the room. Avoidance does not make the problem go away. It only perpetuates it. So try to engage with the problem, to actually make change. Believe that you can do it Achieving goals requires two different brain networks: ???Pathways?? thinking that envisions a desired future, and ???agency?? thinking that sustains the sense that you can do it. Both are necessary parts of solving problems and achieving your goals Seek relationships Find those people that give you a sense of confidence and security. Those people you can have ???velqp-ta-wqcml?? talks with. Engage in a mentoring relationship or an altrustic one where you are giving to others. Reach out to your neighbors to provide reciprocated support. Be mindful of your emotions When we???re stressed, the area of the brain responsible for planning and organizing (the prefrontal cortex) is greatly affected. Do what works for you - mindfulness, yoga, running, etc. - to help manage emotions. Deep breathing helps us physiologically regulate our bodies, so our mind has more capacity to be clear. Instead of trying to ignore your feelings, ask yourself what you???re feeling, and try to label it. Information from Dr. Samia Goldsmith, Psychiatrist [email or web address] ................................................................................ ............................................................... Support Groups: [facility] offers a variety of free programs that enhance the well- being of patients and care partners throughout the cancer journey. [email or web address] /page/[email or web address]/ Classes and workshops are offered to anyone who has received care at the [facility], regardless of location. All of our support groups are open to anyone in the region regardless of where they received their treatment and are facilitated by experienced, caring staff members. Everythingdiscussed in each group is confidential. All programs require pre-registration. To register, contact us at [phone] or [email or web address]. Support for People with Oral and Head and Neck Cancer (SPOHNC) [facility] Quarterly variable days *5:00 p.m. to 7:00 p.m. *Call [facility] for Information - ( ) [facility] Conference Room Sunday of each month *4:00 p.m. - 5:30 p.m. *Call [facility] for Information - ( ) ................................................................................ .................... ................................................................................ ................... 988 has been designated as the new three-digit dialing code that will route callers to the NationalSuicide Prevention Lifeline (now known as the 988 Suicide & Crisis Lifeline), and is now activeacross the [facility]. When people call, text, or chat 988, they will be connected to trained counselors that are part of the existing Lifeline network. These trained counselors will listen, understand how their problems are affecting them, provide support, and connect them to resources if necessary. The previous Lifeline phone number ( ) will always remain available to people in emotional distress or suicidal crisis. 678-UW-KOFZJ The [facility] Support Line provides confidential, non-judgmental support and connection for all [facility] over the age of 18 by phone. It???s staffed by local peers who???ve been through tough situations themselves. They listen, talk with you, provide insight, and help you face life???s challenges. Different from a crisis helpline or emergency hotline, the [place] Support Line is a ???warm line?? -- your go-to support resource that can help prevent a situation from escalating to an emergency. We focus on mental health help and counseling for a wide range of issues: from the anger you feel after a bad day, to times when you feel alone, to when you need support for substance abuse, medical concerns, relationship challenges, or thoughts of suicide. [facility] Interventional Radiology Discharge Instructions for Feeding Tube Care You [...] If you have the NON Low profile STEPHENIE-RAMOS feeding tube the retention balloon (side port labeled ???BAL?? ) should be checked every 1-2 weeks. It should contain between 5 cc of water. If it is low this should be replaced. Do not put medications or flush through this port. * If you have a low profile ???SARTHAK-RAMOS?? feeding tube, the retention balloon (side port [...] or its attachments. INTERVENTIONAL RADIOLOGY PHONE NUMBERS [phone] If you have a NON Low profile feeding tube, call with any questions or concerns. During regular office hours call: [phone]. If it is after regular office hours, weekends or holidays, please call [phone] and ask to speak to the Box Strapper senior front end developer for Interventional Radiology. If you have a low profile ???SARTHAK-RAMOS?? feeding tube, please call Nadine Eraly RN for any issues: [phone]. Revised 01/02/19 __ Your Medications New Medications Dose Details chlorhexidine 0.12 % Mouthwash Commonly known as: Peridex Take 15 mLs by mouth 2 times daily. Swish and spit. Do not swallow. 15 mL Quantity: 120 mL Refills: 0 oxyCODONE 5 mg tablet Commonly known as: Roxicodone 1 tablet by Per G Tube route every 4 hours as needed for Pain. 5 mg Quantity: 20 tablet Refills: 0 scopolamine 1 mg over 3 days patch 3 day Commonly known as: Transderm-Scop Change 1 patch on the skin once for 1 dose. Remove after 3 days. 1 patch Quantity: 1 patch Refills: 0 Continued medications, unchanged Dose Details fluocinolone and shower cap 0.01 % Oil Commonly known as: [place]-Smoothe/FS Scalp Oil Apply topically to scalp under shower cap nightly for up to 2 weeks for flares then 1-3 times weekly prn maintenance. Quantity: 118 mL Refills: 3 ibuprofen 100 mg/5 mL Suspension Commonly known as: Motrin Take by mouth every 4 hours as needed for Fever. Refills: 0 levothyroxine 100 mcg tablet Commonly known as: Synthroid TAKE ONE TABLET BY MOUTH EVERY DAY Quantity: 90 tablet Refills: 3 STOPPED Medications acetaminophen 160 mg/5 mL Suspension Commonly known as: Tylenol amoxicillin-clavulanate 500-125 mg tablet Commonly known as: Augmentin ketoconazole 2 % Cream Commonly known as: Nizoral Scheduled Appointments: Future Appointments Date Time Provider Department Center 09/14/2022 8:30 AM Hermelindo Kearney PA [facility] JHONATAN [facility] 09/14/2022 8:30 AM Kam Mclean PA [facility] MXLO 5B [facility] 09/14/2022 9:00 AM Dimitry Marin PA [facility] PLAS 4M [facility] 09/14/2022 9:30 AM [facility] IR RECOVERY MH IR [facility] Rad 09/14/2022 10:00 AM Roberth Agudelo, INFORMATION DEVELOPER [facility] 10/25/2022 11:00 AM Evelio Gimenez MD [facility] ENDO [facility] Outpatient Services/Studies: IR Suture Release Standing Status: Future Standing Exp. Date: 03/14/23 Question Response Notes Where will study be performed? [facility] Radiology [120] Reason for exam and clinical history: s/p G tube placement 09/05/22, planning anchor release in 7-10days. Is the patient on anticoagulant / antiplatelet therapy ? No Is the patient ? No Referral to Home Health Referral Priority: Routine Referral Type: Home Health Care Referral Reason: Consult, Test & Treat Ref[facility] to Provider: [facility] [place] Number of Visits Requested: 999 Referral to Speech Therapy Referral Priority: Routine Referral Type: Speech Therapy Referral Reason: Evaluate and Treat Referred to Provider: ROBERTH AGUDELO Number of Visits Requested: 12 Referral for Home Tube feeds Order Comments: Theresa Hollis [address] [facility] [id number] (home) [phone] (work) - Telephone Information: Medicaid: NO Narrative: Patient has a feeding tube and requires tube feedings and supplies necessary to maintainnutritional support . 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 Length of Need: lifetime Number of Refills :12 ( needs to be a number from 0-12) Patient's: Hgt: Ht Readings from Last 1 Encounters: 08/21/22 : 157.5 cm (5' 2) Wgt: Wt Readings from Last 1 Encounters: 08/28/22 : 46 kg (101 lb 8 oz) Formula Ordered: Complete standard 1.4 Formula Volume/Rate/Feeding Schedule: 300 ml of Complete Standard 1.4, 4 times per day Kcal/ day provided: 1730 Modular Additives Kcal/day , if applicable: ResourceBeneProtein Other: 2 #scoops/day Free Water, if applicable: 100ml twice daily Feeding Tube Flushes: 60ml water before and after each feed Dressings at Tube site: DCD after cleansing with normal saline, change daily and as needed. Feeding Tube Type: Gtube Connection Type: ENFit Method of Administration: Syringe Additional instruction: Question Response Notes Vendor / contact information [facility] Patient location post discharge home-[place], [place] Service requested tube feed and supplies Start date 08/31/2022 Responsible MD post discharge contact info PCP Primary Care Doctor: Tita Méndez, SPA TECHNICIAN [phone] Signed: Toño Pacheco MD 09/08/2022 documented in this encounter Discharge Instructions * Discharge Instructions* Akhil Martinez PA - 08/29/2022 8:46 AM EDT Plastic Surgery Wound Care Instructions Neck: Apply a thin layer of Aquaphor over staple line as needed for dryness. Apply gauze over any areas of drainage Left leg: Twice daily Aquaphor to both the lower leg and thigh wounds. Mental Health From [facility] (Behavioral Intervention Team), Inpatient psych services: Below is some information you may find helpful as you continue to navigate the psychological challenges associated with your medical condition and recovery. ................................................................................ ................................................................... You may experience grief and bereavement after a life altering accident or illness. This is natural- you need to mourn the loss of your previous abilities and get accustomed to new limitations and life changes. Psychological Stages of Recovery A major injury or illness requires both physical and emotional recovery and adjustments. You may experience any or all of the common stages of grieving. The process of grieving is not typically linear - a person may experience the stages in any order and may chickahominy indian tribe back to repeat any of the stages - this is all normal and expected. The common stages are: Denial: You may try to ignore the condition or forget about been seriously injured or ill. You may try to act like everything is ok because you have not yet fully accepted what has happened. Your mind may not be ready to face your situation; especially at first. Anger: As you begin to realize that the injury or illness is permanent and/or very serious, you maybecome frustrated and angry. You may be focused on how unfair your situation is. In the case of traumatic brain injury in particular, you may have difficulty controlling your emotions and lash out atothers. Bargaining: Bargaining is the desire to make sacrifices in order to recover things that have been lost. You may say that you'd give anything to get better, or that you will make specific changes in order to regain your prior health status. You may feel frustrated or upset when these efforts don't result in improvements. Depression: Depressed mood and sadness can feel overwhelming as you recover from an injury or illness. You may feel helpless and lose sight of meaning in your life. This may leave you feeling sad, hopeless, and depressed. It's important to seek help at this stage especially if it's prolonged and/orincludes thoughts about self-harm or suicide. Acceptance: Eventually, you can come to accept (or acknowledge) the accident or illness and the resulting changes in your life. Having acceptance can free you up to focus on what you can do and how to move forward in your life. Don't be discouraged if you chickahominy indian tribe back to any of the other stages at times - this is normal and expected. ................................................................................ .................... ............................................................................ Basic exercises for grounding/managing anxiety and stress Breathing Retraining Exercise: STEPS: Take a normal breath in (it may take 3 seconds) Pause Make your exhalation long (it may take 5-6 seconds) Pause You can add a word to help you focus during the exhalation (such as calm or peace or still) 4 -7- 8 Breath (Relaxation Exercise) STEPS: 1) Exhale completely through your mouth, making a whoosh sound. 2) Close your mouth and inhale quietly through your nose to a mental count of 4. 3) Hold your breath for a count of 7. 4) Exhale completely through your mouth, making a whoosh sound to a count of 8. This is one breath. Now inhale again and repeat the cycle... 5 Senses Grounding Exercise (when feeling panicky/overwhelmed in the moment) Look around at your surroundings Name: 5 things you can see 4 things you can feel 3 things you can hear 2 things you can smell 1 thing you can taste ................................................................................ .................... ................................................................................ ... When feeling demoralized, here are some suggestions: Activate a core identity Who do you know yourself to be? Think about which groups you belong to. Do you identify as a parent? A daughter or son? By your profession? Remind yourself of who you are, and what your values are. Try choose actions that are guided by your core values and identity. Shift from avoidant to active coping It???s natural to want to hide in bed. Try to be active though - even if something small. Turn on the music or tidy up the room. Avoidance does not make the problem go away. It only perpetuates it. So try to engage with the problem, to actually make change. Believe that you can do it Achieving goals requires two different brain networks: ???Pathways?? thinking that envisions a desired future, and ???agency?? thinking that sustains the sense that you can do it. Both are necessary parts of solving problems and achieving your goals Seek relationships Find those people that give you a sense of confidence and security. Those people you can have ???fwrzb-ri-jbibe?? talks with. Engage in a mentoring relationship or an altrustic one where you are giving to others. Reach out to your neighbors to provide reciprocated support. Be mindful of your emotions When we???re stressed, the area of the brain responsible for planning and organizing (the prefrontal cortex) is greatly affected. Do what works for you - mindfulness, yoga, running, etc. - to help manage emotions. Deep breathing helps us physiologically regulate our bodies, so our mind has more capacity to be clear. Instead of trying to ignore your feelings, ask yourself what you???re feeling, and try to label it. Information from Dr. Samia Goldsmith, Psychiatrist [email or web address] ................................................................................ ............................................................... Support Groups: [facility] offers a variety of free programs that enhance the well- being of patients and care partners throughout the cancer journey. [email or web address]-[email or web address]-[email or web address]-families /page/[email or web address]/ Classes and workshops are offered to anyone who has received care at the [facility], regardless of location. All of our support groups are open to anyone in the region regardless of where they received their treatment and are facilitated by experienced, caring staff members. Everythingdiscussed in each group is confidential. All programs require pre-registration. To register, contact us at [phone] or [email or web address]. Support for People with Oral and Head and Neck Cancer (SPOHNC) [facility] Quarterly variable days *5:00 p.m. to 7:00 p.m. *Call [facility] for Information - ( ) [facility] Conference Room Sunday of each month *4:00 p.m. - 5:30 p.m. *Call [facility] for Information - ( ) ................................................................................ .................... ................................................................................ ................... 988 has been designated as the new three-digit dialing code that will route callers to the NationalSuicide Prevention Lifeline (now known as the 988 Suicide & Crisis Lifeline), and is now activeacross the [facility]. When people call, text, or chat 988, they will be connected to trained counselors that are part of the existing Lifeline network. These trained counselors will listen, understand how their problems are affecting them, provide support, and connect them to resources if necessary. The previous Lifeline phone number ( ) will always remain available to people in emotional distress or suicidal crisis. 707-EK-SGREA The [facility] Support Line provides confidential, non-judgmental support and connection for all [facility] over the age of 18 by phone. It???s staffed by local peers who???ve been through tough situations themselves. They listen, talk with you, provide insight, and help you face life???s challenges. Different from a crisis helpline or emergency hotline, the [place] Support Line is a ???warm line?? -- your go-to support resource that can help prevent a situation from escalating to an emergency. We focus on mental health help and counseling for a wide range of issues: from the anger you feel after a bad day, to times when you feel alone, to when you need support for substance abuse, medical concerns, relationship challenges, or thoughts of suicide. [facility] Interventional Radiology Discharge Instructions for Feeding Tube Care You [...] If you have the NON Low profile STEPHENIE-RAMOS feeding tube the retention balloon (side port labeled ???BAL?? ) should be checked every 1-2 weeks. It should contain between 5 cc of water. If it is low this should be replaced. Do not put medications or flush through this port. * If you have a low profile ???SARTHAK-RAMOS?? feeding tube, the retention balloon (side port [...] or its attachments. INTERVENTIONAL RADIOLOGY PHONE NUMBERS [phone] If you have a NON Low profile feeding tube, call with any questions or concerns. During regular office hours call: [phone]. If it is after regular office hours, weekends or holidays, please call [phone] and ask to speak to the Box Strapper senior front end developer for Interventional Radiology. If you have a low profile ???SARTHAK-RAMOS?? feeding tube, please call Nadine Early RN for any issues: [phone]. Revised 01/02/19 * Patient Instructions* Toño Pacheco MD - 09/08/2022 9:40 AM EDT Instructions for Patient at Discharge: What to expect: You will have soreness which will improve over the next several days. The area around the incision may be numb. This should recover over the next few months. Laryngoscopy After a laryngoscopy, you may experience sore throat, some painful swallowing, and brief change in voice. You can use pain medications for sore throat in addition to over the counter agents such as Chloraseptic, Menthol cough drops/lozenges, honey, tea, and warm or cool drinks as tolerated for easethe sore throat. Since we took biopsies, you may have some bleeding from the mouth, however, if this does not resolve within 24-36 hours or becomes lion active bright red bleeding that does not stop, please call theoffice or check with your local ED to be evaluated. Nasal Endoscopy You might have some mild nasal bleeding. If you start having a nose bleed, first step is to hold pressure to your nose for 15-20 minutes consecutively. If this does not resolve the nose bleed, then spray over the counter Afrin (or oxymetazoline) five times in both nares and then hold pressure for 15-20 minutes. If this does not resolve the nose bleed, then please call the office or ENT on-call orcheck with your local ED to be evaluated. Medications: Pain Control - use acetaminophen (Tylenol) and/or ibuprofen (Motrin, Advil) as needed. You can take 500 mg to 650 mg of Tylenol every 4-6 hours as needed. Do not exceed 4g acetaminophen per day and do not drink alcohol while taking tylenol. You can also take 400 to 600 mg of Ibuprofen (Motrin,Advil) every 6 hours as needed. For more severe pain, take the prescribed pain medication every 4-6 hours. As your pain improves, wean yourself off of the prescribed pain medication. Do not drive or operatemachinery while taking the prescribed pain medication. Constipation - Consider the use of OTC Senna/Docusate, Miralax, Metamucil, prune juice or various suppositories if you have any constipation (especially if related to narcotic/opoid related pain medication) Incision Care: Your incision was closed with sutures/shayna. These will need to be removed in about 7-14 days, which will usually occur at your follow up appointment. Use diluted peroxide to clean the incision andapply Aquaphor/Vaseline twice daily. Keep the incision dry for the next two days. After that you may get the area wet and pat dry (it is okay to shower). Do not submerge the incision for at least 2 weeks. Wound Care: Neck: Apply a thin layer of Aquaphor over staple line as needed for dryness. Apply gauze over any areas of drainage Left leg: Twice daily Aquaphor to both the lower leg and thigh wounds. Trach/Stoma Care: You have been decannulated - meaning, we removed your tracheostomy tube. You have a tracheostomy stoma which you will need to apply a occlusive dressing. Place a yellow xeroform gauze folded in a 1 inch by 1 inch square over the stoma hole, then place a 2x2 gauze, and then place a tegaderm film dressing. Every time you cough or talk, you should put your finger to the stoma hole to help the hole close. This should close in couple weeks. We will re-evaluate in 1 week at your follow-up appointment. G Tube Care: You are being discharged with a gastrostomy tube. This was placed by Interventional Radiology. Please call them at [phone] if any concerns. Oral Care: For all patients who had major oral surgery, you will be given a script for Peridex Rinse your mouth out well with water after eating, then use the prescription mouthwash (Peridex/Chlorhexidine) every time after eating. You should also use this mouthwash first thing in the morning and just before be dtime. You can get Peridex on the $4 list at [facility]. Activity: A good rule of thumb is if it hurts don't do it. Keep your head elevated when lying flat. No heavy lifting or straining for the next week. No smoking, this is important for wound healing. Diet: Ok to swallow a few teaspoons of thickened fluids for swallowing practice. Tube Feeding: Administer the tube feedings according to the following schedule/instructions: Cotninue goal of: 300 ml of Complete Standard 1.4, 4 times per day plus 2 scoop of protein powder daily. Start with 100 mL over an hour, increase by 100 mL each feed until goal of 300 mL/hr is achieved. Flush with 60 ml water before and after each feed to maintain patency and for hydration. Suggest 100 ml free water BID Compleat Standard 1.4 Total Volume Per Day: 1200 mL Scoops of Protein Powder: 2 Calories per Day: 1730 Protein per Day: 98 g Free Water mL per Day: 981 % RDI: 120 % You should call your doctor if you develop: -Difficulty breathing -Increasing pain and redness -Increasing drainage from the wound -Fever > 38.5Celsius or 101 Fahrenheit -Bleeding Contact: -You can reach the ENT clinic at [phone] for appointment questions. -The ENT triage nurse is available at [phone] -For urgent issues during evenings (5 PM - 7 AM) and weekends the ENT resident senior front end developer can be reached through the main hospital regulator operator at [phone] Follow Up: You will need to follow up with ENT in 6 days. This appointment has been requested. You will be notified once it is scheduled, if you do not already see it below. If you do not hear from us in a timely manner, please call [phone] to receive your date and time. You will also need to follow-up with plastic surgery, which has been set up for you, as well. We will try our best to coordinate this with your other appointments. Please call [phone] to receiveyour date and time. You will also need to follow up with speech therapy and nutrition, which has been set up for you, as well. We will try our best to coordinate this with your other appointments. You will be notified once it is scheduled. If you do not see these appointments listed below and you don't hear from us jason timely manner, please call . Currently Scheduled Appointments: Future Appointments and Orders Future Appointments and Orders Future Appointments Provider Department Dept Phone 09/14/2022 8:30 AM Hermelindo Kearney PA Otolaryngology at [facility] Arrive at: Dental Ceramist Assistant Area 4F [phone] 09/14/2022 8:30 AM Kam Mclean PA Maxillofacial Surgery at [facility] Arrive at: Dental Ceramist Assistant Area 5B [phone] 09/14/2022 9:00 AM Dimitry Marin PA Plastic Surgery at [facility] Arrive at: Dental Ceramist Assistant Area 4M [phone] 09/14/2022 9:30 AM [facility] IR RECOVERY Radiology at [facility] Arrive at: 3Z RADIOLOGY [phone] 09/14/2022 10:00 AM Roberth Agudelo SLP Otolaryngology at [facility] Arrive at: Dental Ceramist Assistant Area 4F [phone] 10/25/2022 11:00 AM Evelio Gimenez MD Endocrinology at [facility] Arrive at: Dental Ceramist Assistant Area 3A [phone] Future Orders Complete By Expires IR Suture Release [[id number] Custom] 09/12/2022 03/14/2023 Process Instructions: Scheduling Instructions: Comments: Questions: Where will study be performed?: [facility] Radiology Reason for exam and clinical history: s/p G tube placement 09/05/22, planning anchor release in 7-10days. Clinical information / ramos questions for radiologist: Exam/Procedure requested: What labs need to be collected during imaging study?: Is the patient on anticoagulant / antiplatelet therapy ?: No Is the patient ?: No Does patient require sedation?: GA rationale: Requested Time: Date of injury if applicable: [employer] Devices [EQ161 Custom] As directed Process Instructions: Scheduling Instructions: Comments: Please provide one standard FWW to be delivered to pt's room on day of d/c. Pt requires r/t gait instability s/p surgical intervention for oral CA with trach placement. Questions: Device Needed: WALKER (E0143) Patient Height (cm): 157.5 cm (5' 2) Patient Weight: 46 kg (101 lb 8 oz) Diagnosis: Oral cancer Referral for Home Tube feeds [TRO1225 CPT(R)] As directed Process Instructions: Scheduling Instructions: Comments: Theresa Hollis [address] [facility] [phone] (home) [phone] (work) - Telephone Information: Medicaid: NO Narrative: Patient has a feeding tube and requires tube feedings and supplies necessary to maintainnutritional support . 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 Length of Need: lifetime Number of Refills :12 ( needs to be a number from 0-12) Patient's: Hgt: Ht Readings from Last 1 Encounters: 08/21/22 : 157.5 cm (5' 2) Wgt: Wt Readings from Last 1 Encounters: 08/28/22 : 46 kg (101 lb 8 oz) Formula Ordered: Complete standard 1.4 Formula Volume/Rate/Feeding Schedule: 300 ml of Complete Standard 1.4, 4 times per day Kcal/ day provided: 1730 Modular Additives Kcal/day , if applicable: ResourceBeneProtein Other: 2 #scoops/day Free Water, if applicable: 100ml twice daily Feeding Tube Flushes: 60ml water before and after each feed Dressings at Tube site: DCD after cleansing with normal saline, change daily and as needed. Feeding Tube Type: Gtube Connection Type: ENFit Method of Administration: Syringe Additional instruction: Questions: Vendor / contact information: [facility] Patient location post discharge: home-[place], [place] Service requested: tube feed and supplies Start date: 08/31/2022 Responsible MD post discharge contact info: PCP Referral to Home Health [REF34 Custom] As directed Process Instructions: If no progress note charted, please enter Clinical details in comments. Scheduling Instructions: Comments: Please evaluate Theresa Hollis for admission to Home Health. [address] [facility] [phone] (home) [phone] (work) Date of : 1970 Inpatient DOCUMENTATION FOR VNA SERVICES (INCLUDING THOSE PATIENTS WITH MEDICARE COVERAGE REQUIRING HOME VNA SERVICES AND/OR HOSPICE SERVICES) PATIENT'S LOCATION: Theresa Hollis [address] [facility] [phone] (home) Cell: Telephone Information: Fence Erector Supervisor's Name: Theresa In discussion with the attending physician, it is certified that this patient is under their care and that they, or a Nurse Practitioner, Clinical Nurse specialist or Physician Knitting Machine Mechanic who is working directly with them, had a face to face encounter that meets the physician face to face encounter requirements with this patient on 09/08/22. 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 To provide the following care/treatments with the clinical findings supporting the need for services as follows: HOME CARE ORDERS: RN ORDERS: Assess vital signs, cardiopulmonary status, nutrition, hydration, elimination -Additional Orders: Monitor medication effectiveness and management, Reinforce education regarding health issues, and Assess wound or incision (Neck: Apply a thin layer of Aquaphor over staple line as needed for dryness. Apply gauze over any areas of drainage Left leg: Twice daily Aquaphor to both the lower leg and thigh wounds.) INFORMATION DEVELOPER: Evaluate and treat as appropriate. PUSH CONNECTOR ASSEMBLER: Emotional support and community case management. HOME HEALTH CARE AGENCY: [facility]. [address] [place] [address] Start of care: Within 24 to 48 hours of discharge. Questions: Disciplines Requested: Nursing Speech Language Pathology Medical Social Work (If Patient Meets Eligibility Requirements) Referral to Speech Therapy [[id number] Custom] As directed Process Instructions: Scheduling Instructions: Questions: Evaluation location?: In Clinic Reason for Speech Evaluation?: Recommended focus?: Oral Motor/Sensory Assessment Dysphagia documented in this encounter Medications at Time [...] day Change 1 patch on the skin once for 1 dose. Remove after 3 days. 1 patch 09/08/2022 09/08/2022 oxyCODONE (Roxicodone) 5 mg tablet 1 tablet [...] 3 07/31/2022 03/22/2023 fluocinolone and shower cap ([place]-Smoothe/FS Scalp Oil) 0.01 % Oil Apply topically to scalp under shower cap nightly for up to 2 weeks for flares then 1-3 times weekly prn maintenance. 118 mL 3 03/23/2021 11/14/2022 documented as of this encounter Progress Notes * Per Meza RN - 09/08/2022 11:57 AM EDT Theresa Hollis discharged to Home by private car with Patient. All belongings sent with patient. KRYSTA removed, incision healing well, skin free from pressure ulcers. Discharge instructions, medications, and follow-up appointments reviewed, education provided on tube feeding admin and peg care, paper prescriptions given to patient, all questions answered. [facility] paperwork faxed. Patient instructed to call with concerns. * Roberth Agudelo, INFORMATION DEVELOPER - 09/08/2022 8:13 AM EDT Speech-Language Pathology Progress Note 09/08/2022 8:13 AM Total Treatment Time: 0 min. No charge Total Timed Code Treatment: 0 min. Chart reviewed. Pt for discharge today. Pt reports desire to focus on learning her care prior to discharge and wishes to hold on PO trials today. She reports looking to our anticipated outpatient visit at 10:00am on 09/14/22 in ENT clinic. Roberth Agudelo MS, CCC-INFORMATION DEVELOPER Speech-Language Pathologist Rehabilitation Medicine Pager #[phone] * Emmanuel Khalil MD - 09/08/2022 7:10 AM EDT Plastic Surgery Inpatient Progress Note (Team Pager #[phone] Date of surgery: 08/21/22 CC/Procedure(s): Oromandibular reconstruction with right fibula free flap, skin graft from R thigh to right leg and submental opening Surgeon: Luz Elena Subjective/IE: NAEO, AFVSS. Feeling well. Objective: BP 109/57 (BP Location (NBP): Left leg, Patient Position: Lying) Pulse 78 Temp 36.2 ??C (97.2 ??F) (Axillary) Resp 15 Ht 157.5 cm (5' 2.01) Wt 41.6 kg (91 lb 11.4 oz) SpO2 98% BMI 16.77 kg/m?? Intake/Output Summary (Last 24 hours) at 09/08/2022 0710 Last data filed at 09/08/2022 0600 Gross per 24 hour Intake 380 ml Output -- Net 380 ml General: Resting comfortably in no acute distress. Neuro: Awake, alert, responds to questions appropriately. CV: Regular rate Pulm: Non-labored breathing on RA, trach capped HEENT: Flap warm and well perfused with strong doppler signal, skin paddle euchromic with donor site, skin graft evolving positively, inset incision intact, neck incision intact with shayna. RLE: Skin graft with 100% take. Skin graft donor site 100% epithelialized. Labs: Recent Labs 09/07/22 0030 WBC 6.8 HGB 8.9* HCT 27.0* NA 140 K 4.6 CL 103 BUN 23* CREATININE 0.55* CO2 29 GLUCOSE 88 ANIONGAP 8 CALCIUM 9.4 Assessment: Theresa Hollis is a 52 y.o. female s/p oromandibular reconstruction with a fibula free flap 08/21. Recovering well overall. D/c planned for today 09/08 per ENT. Plan: Q4h flap checks Dressings/Drains: Aquaphor BID to right leg (skin graft donor and recipient sites) and chin skin graft Antibiotics: course complete Diet: tube feed Activity: WBAT RLE. May wear boot as needed for comfort. DVT prophylaxis: SCD left leg, Lovenox Remainder of care per primary team 09/14 fu scheduled with Plastics and ENT Emmanuel Khalil MD Plastic Surgery Inpatient Team Pager #[phone] Attending: Pt seen and examined . HEr WBC is stable. She has stable hyperemia of the neck skin. Herflap is viable and intraoral wound are progressing well. I agree with the plan as outlined. Kelly Laguna MD Plastic Surgery * Jada Chávez RN - 09/08/2022 5:34 AM EDT OUTCOME EVALUATION NOTE: OUTCOME SUMMARY: Patient is alert and oriented. VSS on RA. Wound care provided, Aquaphor applied. Doppler checks audible. Stoma site covered with mepilex, tolerating well. Fair cough, productive. Self suctioning. Ambulating to the BR with FWW independently. Pain moderately controled with PRN medication (see MAR) discomfort at PEG site. Education provided for medication and TF administration via PEG, education welcomed. Written communication with use of pt white board. Questions answer and need met. Care clustered through the night, patient rested comfortably. PLAN MOVING FORWARD: Q4hr vitals Q4hr doppler check of graft under chin Bolus TF 4x daily Pain management Discharging 09/08 home with INDIVIDUALIZED FALL PREVENTION INTERVENTIONS: purposeful rounding, call ramirez within reach, suction at bedside, pain control Patient-specific fall risk factors per assessment: surgical procedure, generalized weakness, pain Assistance: SBA with FWW Supervision: [place] with minimal assist Surveillance: suction at bedside, clutter free environment, call ramirez within reach, bed locked in low position, trach to go at bedside CPG GOAL OUTCOME EVALUATION: Continue with plan of care as documented * Umang Meza CERTIFIED NURSE - 09/07/2022 4:33 PM EDT Physical Therapy Intervention Note Treatment Number PT: 5 Patient profile: Theresa Hollis is a 52 y.o. 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 She underwent tracheostomy, neck exploration, mandible excision, and fibula free flap reconstruction 08/21 with ENT and PRS. Interval Events: Per ENT note 09/07/22: - Swallowing slowly improving - Patient expressed desire for G tube; states she had one in 2006 and it worked well for her. She does not believe she can meet her nutritional demands with PO intake alone; general surgery consulted - Remained capped - Feels less anxious this AM - PPN running - AF, VSS Social History: Patient lives with Harinder in a single level home [facility]. Has ~ 15 IRENE without rails. Normallyindependent without device. 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 They have two dogs - basset hound and corgi mix Precautions/Special Considerations: Full code, Neck should remain in neutral position, tracheostomy Boot for comfort only. May start to liberalize weight bearing. No longer needs to be TTWB. Mobility and Positioning Recommendations: Mobilize pt with supervision SPC. Please encourage up to chair for meal times as able. Walker boot/aircast when OOB; multpodus (blue boot) to RLE when in bed/at rest Bathroom for toileting Subjective: ???I wasn't sure if I was going to do anything today. Thanks. Objective: Pt seen for physical therapy treatment today and presented as follows: Pain: Tolerable throughout Vital Signs: vss Bed Mobility: Supine>Short Sit: Independent Transfers: Sit<>Stand: Modified independent with FWW and SPC. No boot. Gait: Distance: 200' Device Used: FWW then SPC, primarily SPC, a little without a device Level of Assist: supervision provided Gait Comments: step-thru, uneven step length, improved with cues. Cues for UE swing. Stairs: Practiced with single railing and ELECTRON[employer] MECH[employer]IC, then railing and SPC, then just a SPC. Step-to pattern. CGA progressing to supervision. Balance: Sitting Static: good Sitting Dynamic: good - independent at EOB Standing Static: good with single UE support Standing Dynamic / Gait: fair/good with FWW Education: patient educated on WBAT, no longer need the walker boot, use of walker v. Spc v. No device, ambulation, use of restroom and plan of care, with good understanding/demonstration. Patient status, treatment, and mobility recommendations discussed with nursing. Pt left in bedside recliner chair, with all needs met, with call ramirez in reach, and with family at the bedside following visit. Team Communication: communication with nursing staff pre/post session regarding readiness and response to therapy intervention. Assessment: Theresa Hollis was seen today for physical therapy intervention. Pt presents to physical therapy with general anxiety, but agreeable to mobilize. Today's session focusing on functional mobility assessment. Pt tolerated session well without c/o pain and decreased anxiety. Practiced on stairs today and pt was able to gradually progress to using a SPC and without a railing as she has at home. Discussed benefits of exercise for her overall health, and continued mobility while she remains in-house and once DC home. Pt has achieved physical therapy goals. Discharge Recommendations: Based on the current findings, Anticipated Discharge Disposition (PT): home with supervision when medically ready for hospital discharge. Discharge recommendation is based on the patient's current physical impairments, prior functional status, potential to return to prior level of function, patient motivation, reported home support, potential for functional gains, current level of endurance, reported home environment and anticipated trajectory of progress and may change based on patient progress during this hospitalization. Consult Recommendations: No other consults recommended at this time. Equipment Needs: Anticipated Equipment Needs at Discharge (PT): None Transportation Needs: Car Has Patient Cleared Physical Therapy? YES NO xxx Goals: Goals ongoing as of 09/07/22 unless otherwise noted Goals: To be achieved by 09/07/22: Pt. to demonstrate knowledge of safety limitations and precautions Pt. to demonstrate understanding of appropriate exercises. Pt. to perform supine to/from sitting EOB with modified independence MET 08/24 Pt. to perform sit to/from stand transfers with supervision and LRAD Pt. to ambulate 150 feet with supervision and least restrictive assistive device Pt. to ambulate up/down at least 3 step/stairs using least restrictive assistive device w/ CGA Plan: Therapy Frequency (PT): 2-4 times/wk for therapy as outlined in initial evaluation. Patient/family understand and agree with plan as stated above. Total Minutes, Physical Therapy: 30 ([id number]) Billing Code: TEFx2 Umang Meza PTA Pager: [phone] Physical Therapy Inpatient Rehabilitation Department * Derrick Abel, RD - 09/07/2022 1:51 PM EDT Nutrition Progress Note Theresa Hollis is a 52 y.o. female admitted post op mandible resection, prosthesis, skin graft, and new tracheostomy. 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 Reason for Assessment: Follow-up Nutrition Recommendations: Pt off PPN 09/06, now receiving tube feeds. Cotninue goal of: 300 ml of Complete Standard 1.4, 4 times per day plus 2 scoop of protein powder daily. Start with 100 mL over an hour, increase by 100 mL each feed until goal of 300 mL/hr is achieved. Flush with 60 ml water before and after each feed to maintain patency and for hydration. Suggest 100 ml free water BID Compleat Standard 1.4 Total Volume Per Day: 1200 mL Scoops of Protein Powder: 2 Calories per Day: 1730 Protein per Day: 98 g Free Water mL per Day: 981 % RDI: 120 % Asked RN for updated weight. Last documented on 08/28. I was able to discuss plan with provider Cheryl Pacheco MD #[id number] . Current Nutrition Regimen: Active Orders Diet NPO diet (Give Meds) Frequency: Effective Midnight Number of Occurrences: Until Specified Assessment: Lab Results Component Value Date NA 140 09/07/2022 K 4.6 09/07/2022 CL 103 09/07/2022 CO2 29 09/07/2022 BUN 23 (H) 09/07/2022 CREATININE 0.55 (L) 09/07/2022 ESTGFR 111 09/07/2022 MAGNESIUM 0.94 09/07/2022 CALCIUM 9.4 09/07/2022 PHOS 4.3 09/07/2022 [id number] 213 (L) 08/22/2022 No results found for: POCGLU Patient Lines/Drains/Airways Status Active Nutritional LDAs Name Placement date Placement time Site Days Enterostomy Tube 09/05/22 1155 gastrostomy tube with balloon feeding 09/05/22 1155 -- 2 PICC Line - Single Lumen 09/02/22 1633 basilic vein (medial side of arm), right 4 Fr 09/02/22 1633 -- 5 Physical Findings Skin: surgical incisions Oxygen Therapy / Airway Device: None (Room air) Shift Pressure Injury Prevention Occiput: No Injury Thoracic Spine: No Injury Sacral: No Injury Ischial - left: No Injury Ischial - right: No Injury Heel - left: No Injury Heel - right: No Injury Elbow - left: No Injury Elbow - right: No Injury Device Sites: O2 sat monitor Other Sites: IDB, PEG Last Bowel Movement: (?) Intake/Output Summary (Last 24 hours) at 09/07/2022 1351 Last data filed at 09/07/2022 0700 Gross per 24 hour Intake 256.3 ml Output -- Net 256.3 ml Relevant medications: Continuous Scheduled tube feeding diet 300 mL Per G Tube 4 Times Daily protein powder 1 Scoop Per G Tube BID cyanocobalamin (Vitamin B-12) 1,000 mcg Per G Tube Nightly melatonin 6 mg Per G Tube Daily after dinner levothyroxine 100 mcg Oral QAM scopolamine 1 patch Transdermal Q72H And Patch Verification 1 patch Transdermal BID pantothenic Ac-Min Oil-Pet,Hyd Topical (Top) BID hydrocortisone Topical (Top) BID enoxaparin 30 mg Subcutaneous Nightly pantothenic Ac-Min Oil-Pet,Hyd 1 each Topical (Top) BID lidocaine 2 patch Transdermal Q24H PRN ibuprofen, cyclobenzaprine, diphenhydrAMINE, oxyCODONE OR oxyCODONE, polyethylene glycoL (MIRALAX) oral powder, LORazepam, HYDROmorphone, diazePAM, magnesium sulfate OR magnesium sulfate,ondansetron, prochlorperazine Anthropometrics: Admit Weight: 43.91 kg Estimated body mass index is 18.56 kg/m?? as calculated from the following: Height as of this encounter: 157.5 cm (5' 2). Weight as of this encounter: 46 kg (101 lb 8 oz). [place] Body Weight (IBW) (kg): 50 Wt Readings from Last 10 Encounters: 08/28/22 46 kg (101 lb 8 oz) 06/01/22 44.3 kg (97 lb 9.6 oz) 03/16/22 44.5 kg (98 lb 3.2 oz) 10/18/21 45.4 kg (100 lb) 10/05/21 46.1 kg (101 lb 9.6 oz) 09/05/21 46.1 kg (101 lb 11.2 oz) 08/18/21 43.1 kg (95 lb) 07/04/21 43.1 kg (95 lb) 03/07/21 43.1 kg (95 lb) 11/01/20 45.3 kg (99 lb 12.8 oz) No data found. Weight Source: Bed Estimated / Assessed Needs: Kcal / K - 1635 Kcal (30 Kcal/Kg - 35 Kcal/Kg) Estimated Protein Needs: 70.05 - 93 g (1.5 g/Kg - 2.0 g/Kg) Nutrition intake and intake history / interview: 09/07: Pt receiving bolus feeds, PPN discontinued yesterday. 09/05: Pt got Gtube in IR this morning. Will continue with PPN tonight until Gtube in use and ideally tube feeds are able to be utilized at goal. 09/04: Pt planned for Gtube placement with IR at 0930 tomorrow morning. Gtube placement has been bumped several times and patient has been receiving inadequate nutrition x 5-6 days now. PPN will continue tonight with slight increase in calories (~67% of goal). There is not room for any additional pedro ories at this time. 09/01: PPN to continue; AA increased to 120 grams. TF recs as above once PEG is placed. Hyponatremianoted; unable ot increase Na concentration in PPN, but total volume can be reduced however this will diminish nutrition provisions. 08/31: Per team, NGT was removed yesterday to see if it was interfering with her swallow. Pt was then scoped and noted to have some cord paresis and laryngeal penetration and pooling of secretions. Plan is to give patient a day or two to let her work on taking more PO and providing PPN for now. If no improvement will move toward peg. Discussed with pharmacy that both intralipid and smof lipids have a hypersensitivity to peanut allergy listed so will leave lipids out of PPN. 08/28: Discharge pended for Sun/ this week. Unsure if pt will be going home on TF, pending swallow attempt tomorrow that will determine if pt will needs a PEG or not. Will preemptively transitionto Complete 1.4 (standard formula) that pt will go home on if TF is needed. 08/25/22: Follow up for pt w/ Tfs. Due to bed transfer, pt did not receive bolus feeds yesterday as formula was not available- this was corrected this morning. Pt has concern of soy allergy which results in increased secretions; discussed the very small amount of soy oil in current formula. Discussedavailability of Compleat 1.4 but it has lower protein content- pt prefers to stay w/ current formula. Reviewed calorie provisions and suggest increasing to 35 kcal/kg- pt in agreement and also requests free water in an effort to thin secretions.Unclear of nutrition plan in moving towards discharge,if able to adv diet, pt has c/o many food intolerances; ( seafood, tomatoes , etc) if going home onTfs would consider Compleat 1.4 250 ml bolus 4X/day to provide 1500 kcal & 100 g protein. 08/24: Pt seen w/ continuous TF infusing at goal rate of 47 mL/hr. Pt denies issues w/ tolerance. Bolus feeding recs as requested per team above. Will monitor K on labs tomorrow and switch TF formula as needed to increase K+ provision. 08/22: Consulted for TEN recommendations. Do not see enteral access at this time in the [facility]. Nutrition Focused Physical Exam: Not performed Malnutrition Diagnosis: Not enough data to assess (Fransisca, CHRIS J Parenteral Enteral Nutr. 2011; 36(3): 273-83) Nutrition to continue to follow up while inpatient DERR[address] RD * Per Meza RN - 09/07/2022 11:56 AM EDT Page Confirmation To Pager number: [phone] From Submitter: Per Meza Urgency Level: Urgent Callback Number: [phone] The following Message was sent: [Urgent] - Callback:[phone] reporting difficulty breathing. RT is present and states not stoma related - Per Meza The following status was returned from the gravity meter observer: Page for [phone] successfully sent to [phone] having status of Available. * Roberth Agudelo, INFORMATION DEVELOPER - 09/07/2022 9:57 AM EDT Speech Therapy Note Patient Profile: Theresa Hollis is a 52 y.o. 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 Admitted on 08/21/2022 for tracheostomy, neck exploration, mandible excision, and fibula free flap reconstruction 08/21 with ENT and PRS. Trach now decannulated. PEG placed on 09/05/22. FEES completed on 09/07/22 with ENT and found deep penetration and likely aspiration with nectar- thick liquids as well as significant pooled secretions. . Interval History: Pt has conducted some 1/2 tsp. Volumes of thickened liquids for exercise purposes. Subjective: Pt is alert and pleasant. Reports concern of current dressing. Nursing aware. Objective: Pt seen for speech therapy and demonstrated the following: Pain: No report of pain. Pt reports increased difficulty coughing through upper airway due to dressing incompletely coveringtrach site and leading to inability to finger occlude trach site for forceful coughing. PO trials held today due to pt's concern over managing secretions with reduced ability to cough forcefully through upper respiratory tract. Pt reports conducting some 1/2 tsp volumes of thickened liquids last night. She reports some success during the act of swallowing, however coughing onset did occur after she finished her PO trials concerning for continued aspiration. Education: discussed importance of feeling comfortable with her ability to cough through upper respiratory tract for PO trials as coughing is ramos to her ability to help clear any aspirated material. Pt indicated understanding. Assessment: Pt was seen today for a follow-up INFORMATION DEVELOPER visit. Pt continues to conduct PO trials of small boluses of netar-thick liquids for exercise purposes. She endorses continue coughing events consistent with aspiration. Below recommendations continue to beappropriate. Pt will benefit from continued therapeutic interventions to achieve therapy goals. Diagnosis: Moderate oral dysphagia with known severe pharyngeal dysphagia. Recommendations: Diet: NPO, Continue G-tube feedings. Ok for 1/2 tsp volumes of nectar-thick liquids occasionally throughout the day for swallow exercisepurposes. Aspiration precautions: Upright position during meals and for at least 30 mins following Small sips and bites while eating Slow rate; swallow between bites Effortful swallow with each bolus. Speech Therapy Goals: Pt will tolerate least restrictive diet without evidence of dysphagia / aspiration. Pt / caregiver will be independent with aspiration precautions, diet modifications, and safe swallowing strategies. Pt will participate in FEES to evaluate swallow function and rule out silent aspiration. - goal met. Plan: Therapy Frequency (INFORMATION DEVELOPER Eval): 2-4 times/wk Patient / family are in agreement with treatment plan. Total Minutes (Speech Language Pathology): 15 Thank you for this consult with this patient. Please feel free to page me with any questions or concerns. Roberth Agudelo MS, [facility]-INFORMATION DEVELOPER Pager: [phone] Speech-Language Pathology Inpatient Rehabilitation Department * Toño Pacheco MD - 09/07/2022 7:22 AM EDT OTOLARYNGOLOGY - HEAD & NECK SURGERY DAILY PROGRESS NOTE Name: Theresa Hollis Age/Sex: 52 y.o. female Attending: Roberth Lee MD Hospital Day: 18 2 Days Post-Op Patient ID/Reason for Admission Theresa Hollis is a 52 y.o. 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 She underwent tracheostomy, neck exploration, mandible excision, and fibula free flap reconstruction 08/21 with ENT and PRS. Interval History - Tolerated bolus TF without issue yesterday - FEES coordinated with INFORMATION DEVELOPER demonstrated c/f aspiration, to remain NPO for now with small sips of nectar thick liquids for practice - Pain well controlled - AF, VSS - No additional complaints, in good spirits this AM Vitals Last value 24hr Range Temperature: 36.3 ??C (97.3 ??F) Temp: [36.1 ??C (97 ??F)-37 ??C (98.6 ??F)] Heart Rate: 78 Heart Rate: [73-79] Blood Pressure: 137/68 BP: (113-152)/(56-75) Respiratory Rate: 16 Resp: [15-18] SpO2: 97 % SpO2: [97 %-100 %] Intake & Output Intake/Output Summary (Last 24 hours) at 09/07/2022 0722 Last data filed at 09/07/2022 0700 Gross per 24 hour Intake 256.3 ml Output -- Net 256.3 ml Physical Exam General: NAD, non-ill appearing, resting comfortably in bed. Face: Symmetric without dysmorphic features. Eyes: EOMI, conjunctiva healthy. L periorbital edema. Ears: Auricles symmetric, no lesions Nose: Patent nares, grossly normal appearance Oral Cavity/Pharynx: Mucosa is pink, oropharynx symmetric. Mandibular suture lines intact without apparent dehiscence, flap is pink, warm, and well perfused. Granulation tissue anteriorly - stable Neck: Soft, trachea midline. Decannulation dressing in place, fonger occlusion reinforced. Generalized induration/erythema of neck. Crusting along suture lines. Submental skin graft intact with some crusting present as well. Chest: Non-labored breathing, regular rate on RA Neuro: Alert & oriented, moving extremities x 4 Labs Recent Labs 09/07/22 0030 09/06/22 0403 WBC 6.8 6.1 HGB 8.9* 8.8* HCT 27.0* 26.3* PLATELET 555* 593* NA 140 139 K 4.6 4.2 CL 103 103 CO2 29 26 BUN 23* 20* CREATININE 0.55* 0.47* GLUCOSE 88 74 CALCIUM 9.4 9.0 MAGNESIUM 0.94 0.99 PHOS 4.3 3.8 Imaging None. ASSESSMENT & PLAN Theresa Hollis is a 52 y.o. female s/p neck exploration, tracheostomy, mandible excision, and fibula free flap reconstruction, 2 Days Post-Op. Theresa looks well this AM. Will remain NPO for now. Plan for discharge home tomorrow. Surgical/Head&Neck: Neck should remain in neutral position Ok to change stoma dressing PRN Please gently clean suture lines with diluted hydrogen peroxide) to remove crusting. Apply aquaphor to incisions and skin graft over submental region. Neurologic: Pain controlled with lidoderm patch, oxycodone PRN, dilaudid PRN. Cardiovascular: PAMELA Pulmonary: Oxygenation on RA Gastrointestinal: Zofran PRN Genitourinary: Voiding spontaneously Musculoskeletal: PAMELA Fluids/Electrolytes: PAMELA Nutrition: NPO diet (Give Meds) G tube pending Infectious Disease: WBC wnl, Unasyn x 5 days; Peridex Hematology: Hemoglobin wnl Endocrine: Home levothyroxine Consults: PRS, general surgery Lines: Patient Lines/Drains/Airways Status Active Tubes/Lines/Drains Name Placement date Placement time Site Days PICC Line - Single Lumen 09/02/22 1633 basilic vein (medial side of arm), right 4 Fr 09/02/22 1633 -- 5 Enterostomy Tube 09/05/22 1155 gastrostomy tube with balloon feeding 09/05/22 1155 -- 2 Prophylaxis: Lovenox, SCD, activity per PRS Disposition: Floor status, Attempt Cardiopulmonary Resuscitation - Inpatient Discharge: Plan for d/c TBD; Needs trach supplies, suction, VNA; Follow-up ENT Toño Pacheco MD, PGY1 09/07/22 7:22 AM ENT Team Pager: [phone] * Kelly Laguna MD - 09/07/2022 7:05 AM EDT Plastic Surgery Inpatient Progress Note (Team Pager #[phone] Date of surgery: 08/21/22 CC/Procedure(s): Oromandibular reconstruction with right fibula free flap, skin graft from R thigh to right leg and submental opening Surgeon: Luz Elena Subjective/IE: Tolerated tube feeds yesterday. Feeling well. Objective: BP 137/62 (BP Location (NBP): Left leg, Patient Position: Lying) Pulse 73 Temp 36.5 ??C (97.7 ??F) (Axillary) Resp 17 Ht 157.5 cm (5' 2) Wt 46 kg (101 lb 8 oz) SpO2 99% BMI 18.56 kg/m?? Intake/Output Summary (Last 24 hours) at 09/07/2022 0707 Last data filed at 09/07/2022 0300 Gross per 24 hour Intake 220 ml Output -- Net 220 ml General: Resting comfortably in no acute distress. Neuro: Awake, alert, responds to questions appropriately. CV: Regular rate Pulm: Non-labored breathing on RA, trach capped HEENT: Flap warm and well perfused with strong doppler signal, skin paddle euchromic with donor site, skin graft evolving positively, inset incision intact, neck incision intact with shayna. RLE: Skin graft with 100% take. Skin graft donor site 100% epithelialized. Labs: Recent Labs 09/07/22 0030 WBC 6.8 HGB 8.9* HCT 27.0* NA 140 K 4.6 CL 103 BUN 23* CREATININE 0.55* CO2 29 GLUCOSE 88 ANIONGAP 8 CALCIUM 9.4 Assessment: Theresa Hollis is a 52 y.o. female s/p oromandibular reconstruction with a fibula free flap 08/21. Recovering well overall. Plan: Q4h flap checks Dressings/Drains: Aquaphor BID to right leg (skin graft donor and recipient sites) and chin skin graft Antibiotics: course complete Diet: tube feed Activity: WBAT RLE. May wear boot as needed for comfort. DVT prophylaxis: SCD left leg, Lovenox Remainder of care per primary team 09/14 fu scheduled with Plastics and ENT NADINE MENDOZA APRN Plastic Surgery Inpatient Team Pager #[phone] Attending: Pt seen and examined . HEr WBC is stable. She has stable hyperemia of the neck skin. Herflap is viable and intraoral wound are progressing well. I agree with the plan as outlined. Kelly Laguna MD Plastic Surgery * Jada Chávez RN - 09/07/2022 6:13 AM EDT OUTCOME EVALUATION NOTE: OUTCOME SUMMARY: Patient A&Ox4, VSS on RA. up to bathroom with FWW, voiding adequately. LBM known BM 08/31, no BMovernight. PICC, am labs draw. Patient de-cannulated, stoma site covered. Mepilex over stoma changed this morning. Neck shayna intact, Aquaphor applied, Right leg sites intact, scant drainage, Aquaphor applied. Flap site audible. Peg site tender, tube feed not given last night, >90ml residual and full tummy feeling (pt. Reported) Began PEG education, patient flushed and administer own morning medication. Reported discomfort at PEG site, PRN medication given (see MAR) Rested comfortably overnight, safety maintained. PLAN MOVING FORWARD: Q4hr vitals Q4hr flap checks Bolus feed - Compleat Standard 1.4 Pain management PEG education INDIVIDUALIZED FALL PREVENTION INTERVENTIONS: Purposeful rounding, call ramirez within reach Patient-specific fall risk factors per assessment: hospital environment, generalized weakness, pain, surgical procedure Assistance: SBA with FWW Supervision: encouraged independence Surveillance: call ramirez within reach, cutter free environment, suction at bedside, ambulation aid within reach, bedside table at bedside, light adjusted CPG GOAL OUTCOME EVALUATION: Continue with plan of care as documented * Dary Ramesh RCP - 09/06/2022 3:42 PM EDT 09/06/22 1210 Oxygen Therapy O2 Device RA SpO2 99 % Pt on room air robert well Pt trach removed yesterday afternoon Pt is a Difficult Airway Trach to go kit and ambu should remain at bedside Will continue to monitor pt * Roberth Agudelo, INFORMATION DEVELOPER - 09/06/2022 1:42 PM EDT Speech Therapy Fiberoptic Endoscopic Evaluation of Swallowing (FEES) Patient Profile: Theresa Hollis is a 52 y.o. 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 Admitted on 08/21/2022 for tracheostomy, neck exploration, mandible excision, and fibula free flap reconstruction 08/21 with ENT and PRS. Trach now decannulated. PEG placed on 09/05/22. Now for FEES. Prior Level of Swallow Function: Pt was able to swallow softer solids and thin liquids prior to hospitalization. Subjective: Pt is alert and pleasant. Pt's present. Objective: Pt seen for evaluation today. Pain: No report of pain. Vital Signs: At Rest With PO Trials SpO2 on RA 98% 98% RR Not tested. Not tested. Current Diet: NPO diet (Give Meds) Feeding / Oral Care Status: Independent. Cognitive-Linguistic Status: alert, oriented to person, place, and time Positioning: HOB at approximately 55 degrees Oral / Laryngeal Mechanism Clinical Assessment: Lingual: Reduced protrusion and ROM in all planes. Most significant decreased in lateralizing to left. Labial: Adequate labial seal. Velar: Velar elevation is present. Vocal fold function and airway protection: Vocal quality fluctuates between clear and gurgly on ownsecretions. Dentition: Missing several teeth. Endoscope passed through left nares by ENT physician. Bolus Presentation(s) [place] thickened liquid 3 mL, via spoon Oral Preparatory Phase Mastication: N/A Oral Transit: Reduced transit. [place] assists with transit through oral cvaity. Bolus Cohesion: Decreased. Labial Seal / Loss: Negative. Oral Stasis: negative. Pharyngeal Phase Structural Assessment: Velar closure: Functional during cheek puff. Base of Tongue Retraction: Redcued during production of baLLL with focus on L. Laryngeal / Vocal Cord Closure: Right vocal cord movement is robust. Left vocal cord movement is decreased, but slight movement is witnessed. For full report see ENT note. Secretions: Significant thick, frothy, osorio secretions are noted in valleculae, bilateral pyriform sinuses, intra-arytenoid space. Secretions are noted to spill over into supraglottic space and likelyinto subglottis. Pharyngeal Phase Swallowing Assessment: Premature Spillage: present. Initiation: Delayed. Epiglottic Inversion: Reduced / absent. Base of Tongue Retraction: Reduced. Pharygneal Residue: present. [place]-thick liquids mix with thick secretions in valleculae and bilateral pyriform sinuses (L>R). Penetration: Present with nectar-thick liquids. Aspiration: Likely as cough reflex generated shortly after penetration of bolus material/secretion combination. Cough: Present. Esophageal Phase: Return of Bolus Material to Pharynx: Negative. Unable to directly visualize esophageal inlet due tosecretions. Modifications Attempted: Multiple swallows Education: family and patient has been educated on results and recommendations, and verbalized understanding. Patient status, treatment and swallow recommendations were communicated to primary team. Assessment: Pt presents with moderately decreased oral manipulation of nectar- thick liquids. Pharyngeal swallow is delayed, weak and ineffective in mobilizing nectar-thick liquids through pharynx. Deep penetration and likely aspiration was present during this study with nectar-thick liquids. [place] other textures were held due to anticipated aspiration. Pt is currently an aspiration risk regardless of textures. Will continue to follow for further dysphagia therapy. Pt would benefit from skilled INFORMATION DEVELOPER services to maximize swallow function and safety while in the hospital and to address limitations as noted above. Diagnosis: Moderate oral dysphagia with severe pharyngeal dysphagia. Recommendations: Diet: NPO, Continue G-tube feedings. Ok for 1/2 tsp volumes of nectar-thick liquids occasionally throughout the day for swallow exercisepurposes. Aspiration precautions: Upright position during meals and for at least 30 mins following Small sips and bites while eating Slow rate; swallow between bites Effortful swallow with each bolus. Pt will benefit from continued INFORMATION DEVELOPER services while hospitalized and Pt will benefit from INFORMATION DEVELOPER services in the discharge location. Speech Therapy Goals: (To be met by discharge) Pt will tolerate least restrictive diet without evidence of dysphagia / aspiration. Pt / caregiver will be independent with aspiration precautions, diet modifications, and safe swallowing strategies. Pt will participate in FEES to evaluate swallow function and rule out silent aspiration. - goal met. Plan: Therapy Frequency (INFORMATION DEVELOPER Eval): 2-4 times/wk Pt./family are in agreement with treatment plan. Total Minutes (Speech Language Pathology): 40 Thank you for this consult with this patient. Please feel free to page me with any questions or concerns. Roberth Agudelo MS, [facility]-INFORMATION DEVELOPER Pager: [phone] Speech-Language Pathology Inpatient Rehabilitation Department * Princess Abarca PA - 09/06/2022 9:40 AM EDT Interventional Radiology Inpatient Progress Note Admitted 08/21/2022 Procedure(s): Gastrostomy tube placement Post-procedure day: #1 Time of patient encounter: 07:15 24 Hour Events: -No adverse events overnight -AVSS on RA, moderate pain at G-tube insertion site o/w denies complaints Last Value 24 Hour Range Temperature 36.1 ??C (97 ??F) Temp: [36 ??C (96.8 ??F)-36.9 ??C (98.4 ??F)] Heart Rate 66 Heart Rate: [64-68] Blood Pressure 152/73 BP: (115-152)/(59-73) Respiratory Rate 18 Resp: [15-18] SpO2 99 % SpO2: [98 %-100 %] Physical Exam GEN No distress, A&O ABD Non tender, nondistended ACCESS G-tube site C/D/I Labs: Reviewed - Last 3 wbc, hgb, hct plt Recent Labs 09/06/22 0403 09/05/22 0245 09/04/22 0025 WBC 6.1 9.1 8.3 HGB 8.8* 9.7* 9.1* HCT 26.3* 28.0* 26.8* PLATELET 593* 655* 624* Imaging: No relevant post procedural imaging. Assessment: 52 y.o. 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 Plan: -Suture release ordered and scheduled for 6/27. -IR will sign-off at this time. Please page with further questions and concerns. CALLY Foy-C Interventional Radiology IR Team Pager [phone] * Toño Pacheco MD - 09/06/2022 9:09 AM EDT OTOLARYNGOLOGY - HEAD & NECK SURGERY DAILY PROGRESS NOTE Name: Theresa Hollis Age/Sex: 52 y.o. female Attending: Roberth Lee MD Hospital Day: 17 1 Day Post-Op Patient ID/Reason for Admission Theresa Hollis is a 52 y.o. 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 She underwent tracheostomy, neck exploration, mandible excision, and fibula free flap reconstruction 08/21 with ENT and PRS. Interval History - R neck drain removed yesterday - PEG placed yesterday by IR, decannulated after procedure - AF, VSS - No additional complaints, in good spirits this AM Vitals Last value 24hr Range Temperature: 36.1 ??C (97 ??F) Temp: [36 ??C (96.8 ??F)-36.9 ??C (98.4 ??F)] Heart Rate: 66 Heart Rate: [64-68] Blood Pressure: 152/73 BP: (115-152)/(59-73) Respiratory Rate: 18 Resp: [15-18] SpO2: 99 % SpO2: [98 %-100 %] Intake & Output Intake/Output Summary (Last 24 hours) at 09/06/2022 0910 Last data filed at 09/05/2022 2100 Gross per 24 hour Intake 490 ml Output -- Net 490 ml Physical Exam General: NAD, non-ill appearing, resting comfortably in bed. Face: Symmetric without dysmorphic features. Eyes: EOMI, conjunctiva healthy. L periorbital edema. Ears: Auricles symmetric, no lesions Nose: Patent nares, grossly normal appearance Oral Cavity/Pharynx: Mucosa is pink, oropharynx symmetric. Mandibular suture lines intact without apparent dehiscence, flap is pink, warm, and well perfused. Granulation tissue anteriorly - stable Neck: Soft, trachea midline. Decannulation dressing in place, fonger occlusion reinforced. Generalized induration/erythema of neck. Crusting along suture lines. Submental skin graft intact with some crusting present as well. Chest: Non-labored breathing, regular rate on RA Neuro: Alert & oriented, moving extremities x 4 Labs Recent Labs 09/06/22 0403 09/05/22 0245 WBC 6.1 9.1 HGB 8.8* 9.7* HCT 26.3* 28.0* PLATELET 593* 655* NA 139 138 K 4.2 4.4 CL 103 101 CO2 26 28 BUN 20* 20* CREATININE 0.47* 0.48* GLUCOSE 74 98 CALCIUM 9.0 9.3 MAGNESIUM 0.99 1.01 PHOS 3.8 3.9 Imaging None. ASSESSMENT & PLAN Theresa Hollis is a 52 y.o. female s/p neck exploration, tracheostomy, mandible excision, and fibula free flap reconstruction, 1 Day Post-Op. Theresa is grateful to have gotten her PEG yesterday. She will resume TF this AM, DC TPN. Please reinforce finger occlusion during speech/coughing to promote healing of stoma. Plan for FEES this afternoon with INFORMATION DEVELOPER to assess swallowing. Surgical/Head&Neck: Neck should remain in neutral position Ok to change stoma dressing PRN Please gently clean suture lines with diluted hydrogen peroxide) to remove crusting. Apply aquaphor to incisions and skin graft over submental region. Neurologic: Pain controlled with lidoderm patch, oxycodone PRN, dilaudid PRN. Cardiovascular: PAMELA Pulmonary: Oxygenation on RA Gastrointestinal: Zofran PRN Genitourinary: Voiding spontaneously Musculoskeletal: PAMELA Fluids/Electrolytes: PAMELA Nutrition: NPO diet (Give Meds) G tube pending Infectious Disease: WBC wnl, Unasyn x 5 days; Peridex Hematology: Hemoglobin wnl Endocrine: Home levothyroxine Consults: PRS, general surgery Lines: Patient Lines/Drains/Airways Status Active Tubes/Lines/Drains Name Placement date Placement time Site Days PICC Line - Single Lumen 09/02/22 1633 basilic vein (medial side of arm), right 4 Fr 09/02/22 1633 -- 4 Enterostomy Tube 09/05/22 1155 gastrostomy tube with balloon feeding 09/05/22 1155 -- 1 Prophylaxis: Lovenox, SCD, activity per PRS Disposition: Floor status, Attempt Cardiopulmonary Resuscitation - Inpatient Discharge: Plan for d/c TBD; Needs trach supplies, suction, VNA; Follow-up ENT Toño Pacheco MD, PGY1 09/06/22 9:10 AM ENT Team Pager: [phone] * Dimitry Marin PA - 09/06/2022 6:50 AM EDT Plastic Surgery Inpatient Progress Note (Team Pager #[phone] Date of surgery: 08/21/22 CC/Procedure(s): Oromandibular reconstruction with right fibula free flap, skin graft from R thigh to right leg and submental opening Surgeon: Luz Elena Subjective/IE: WILLIAM. Patient underwent IR g tube placement yesterday. States she is a bit sore from that. Otherwise no complaints. Objective: BP 135/65 (BP Location (NBP): Left leg, Patient Position: Lying) Pulse 66 Temp 36 ??C (96.8 ??F) (Oral) Resp 18 Ht 157.5 cm (5' 2) Wt 46 kg (101 lb 8 oz) SpO2 99% BMI 18.56 kg/m?? Intake/Output Summary (Last 24 hours) at 09/06/2022 0650 Last data filed at 09/05/2022 2100 Gross per 24 hour Intake 490 ml Output -- Net 490 ml General: Resting comfortably in no acute distress. Neuro: Awake, alert, responds to questions appropriately. CV: Regular rate on pulsox Pulm: Non-labored breathing on RA, trach capped HEENT: Flap warm and well perfused with strong doppler signal, skin paddle euchromic with donor site, skin graft with adequate take and scabbing, inset incision intact, neck incision intact with shayna with improving erythema and stable induration. RLE: Skin graft appears healthy with adequate take. Donor site healing nicely. Labs: Recent Labs 09/06/22 0403 WBC 6.1 HGB 8.8* HCT 26.3* NA 139 K 4.2 CL 103 BUN 20* CREATININE 0.47* CO2 26 GLUCOSE 74 ANIONGAP 10 CALCIUM 9.0 Assessment: Theresa Hollis is a 52 y.o. female s/p oromandibular reconstruction with a fibula free flap 08/21. Now s/p g tube placement. Recovering well overall. Plan: Q4h flap checks Dressings/Drains: Aquaphor BID to right leg (skin graft donor and recipient sites) and chin skin graft Antibiotics: Unasyn x5d (complete) Diet: TF Activity: WBAT RLE. May wear boot as needed for comfort. DVT prophylaxis: SCD left leg, Lovenox Remainder of care per primary team Requested follow up with PRS next week. CALLY Baker Plastic Surgery Inpatient Team Pager #[phone] * Francisco Bello RCP - 09/05/2022 9:28 PM EDT RT Tracheostomy Note Theresa Hollis is a 52 y.o. 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 She underwent tracheostomy, neck exploration, mandible excision, and fibula free flap reconstruction 08/21 with ENT and PRS. 09/05/22 1611 Oxygen Therapy O2 Device RA SpO2 100 % RR 16 Pt on room air robert well Trach removed by today Pt doing well Will continue to monitor pt Skin Assessment: Dressing intact covering stoma. Francisco Bello RCP * Dary Ramesh RCP - 09/05/2022 5:15 PM EDT 09/05/22 1611 Oxygen Therapy O2 Device RA SpO2 100 % Pt on room air robert well Trach removed by DR today Pt doing well Will continue to monitor pt * Dary Ramesh RCP - 09/05/2022 2:48 PM EDT 09/05/22 1447 Oxygen Therapy O2 Device (S) RA (TRACH was removed by , pt now has mepilex) SpO2 100 % Pt came back to room with Trach removed Pt has mepilex bandage Pt is a Difficult airway, sign at [facility] Trach supplies remain in room for now * Derrick Abel RD - 09/05/2022 2:39 PM EDT Images from the original note were not included. Nutrition Progress Note Theresa Hollis is a 52 y.o. female admitted post op mandible resection, prosthesis, skin graft, and new tracheostomy. 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 Reason for Assessment: Follow-up/PPN Nutrition Recommendations: Pt went for Gtube placement with IR this morning. PPN to continue at 1800 at 100 ml/hr to provide 1097 calories, from 100 grams of amino acid and 205grams of dextrose in a 1/4 NS solution of 2.4 L. -- Changes today: no changes today - PPN will not contain lipids d/t patients peanut allergy. When re-starting enteral nutrition, Suggest a goal of: 300 ml of Complete Standard 1.4, 4 times per day plus 2 scoop of protein powder daily. Start with 100 mL over an hour, increase by 100 mL each feed until goal of 300 mL/hr is achieved. Flush with 60 ml water before and after each feed to maintain patency and for hydration. Suggest 100 ml free water BID Compleat Standard 1.4 Total Volume Per Day: 1200 mL Scoops of Protein Powder: 2 Calories per Day: 1730 Protein per Day: 98 g Free Water mL per Day: 981 % RDI: 120 % Asked RN for updated weight. Last documented on 08/28. I was able to discuss plan with provider Cheryl Pacheco MD #[id number] . Current Nutrition Regimen: Active Orders Diet NPO diet (Give Meds) Frequency: Effective Midnight Number of Occurrences: Until Specified TPN Medication Recent History (Show up to 3 orders; newest on the left. Changes between the two most recent orders are indicated.) Start date and time 09/04/2022 1800 09/01/2022 1800 08/31/2022 1800 TPN Adult [[id number]] TPN Adult [[id number]] TPN Adult [[id number]] Order Status Active Completed Completed Last Admin New Bag at 09/04/2022 172 by Theresa Merino RN New Bag at 09/03/2022 171 by Annemarie Camarena RN New Bag at 08/31/2022 1729 by Catherine Morataya RN Frequency Continuous (1800) Continuous (1800) Continuous (1800) Additives adult multivitamin 10 mL 10 mL 10 mL adult trace elements Zn-Cu-Mn-Se (Tralement) 1 mL 1 mL 1 mL Electrolytes potassium phosphate 34 mmol 34 mmol 30 mmol potassium chloride 20 mEq 20 mEq 25 mEq sodium chloride 90 mEq 90 mEq 90 mEq magnesium sulfate 16 mEq 16 mEq 16 mEq Dextrose dextrose 70% 205 g 150 g 150 g Amino Acids amino acid 15% no.5 (ClinisoL) 100 g 120 g 100 g QS Base sterile water 1,381.63 mL 1,326.93 mL 1,459.06 mL Energy Contribution Proteins 400 kcal 480 kcal 400 kcal Dextrose 697.1 kcal 510.03 kcal 510.03 kcal Lipids -- -- -- Total 1,097.1 kcal 990.03 kcal 910.03 kcal Electrolyte Ion Calculated Amount Sodium 90 mEq 90 mEq 90 mEq Potassium 69.87 mEq 69.87 mEq 69 mEq Calcium -- -- -- Magnesium 16 mEq 16 mEq 16 mEq Aluminum -- -- -- Phosphate 34 mmol 34 mmol 30 mmol Chloride 110 mEq 110 mEq 115 mEq Acetate 84.67 mEq 101.6 mEq 84.67 mEq Chloride: Acetate Ratio 1.3 1.085 1.36 Trace Elements Copper 0.3 mg 0.3 mg 0.3 mg Manganese 55 mcg 55 mcg 55 mcg Selenium 60 mcg 60 mcg 60 mcg Zinc 3 mg 3 mg 3 mg Other Total Amino Acid 100 g 120 g 100 g Total Amino Acid/kg 2.17 g/kg 2.61 g/kg 2.17 g/kg Glucose Infusion Rate 3.1 mg/kg/min 2.26 mg/kg/min 2.26 mg/kg/min Osmolarity 990.37 959.08 875.02 Volume 2,400 mL 2,400 mL 2,400 mL Rate 100 mL/hr 100 mL/hr 100 mL/hr Dosing Weight 46 kg 46 kg 46 kg Infusion Site Peripheral Peripheral Peripheral Total Multi-vitamins 10 mL 10 mL 10 mL Assessment: Lab Results Component Value Date NA 138 09/05/2022 K 4.4 09/05/2022 CL 101 09/05/2022 CO2 28 09/05/2022 BUN 20 (H) 09/05/2022 CREATININE 0.48 (L) 09/05/2022 ESTGFR 115 09/05/2022 MAGNESIUM 1.01 09/05/2022 CALCIUM 9.3 09/05/2022 PHOS 3.9 09/05/2022 [id number] 213 (L) 08/22/2022 No results found for: POCGLU Patient Lines/Drains/Airways Status Active Nutritional LDAs Name Placement date Placement time Site Days Enterostomy Tube 09/05/22 1155 gastrostomy tube with balloon feeding 09/05/22 1155 -- less than 1 PICC Line - Single Lumen 09/02/22 1633 basilic vein (medial side of arm), right 4 Fr 09/02/22 1633 -- 3 Closed/Suction Drain Right;Anterior Neck Bulb 15 Citizen Of [place] 08/21/22 1947 Neck 15 Physical Findings Skin: surgical incisions Oxygen Therapy / Airway Device: None (Room air) Shift Pressure Injury Prevention Occiput: No Injury Thoracic Spine: No Injury Sacral: No Injury Ischial - left: No Injury Ischial - right: No Injury Heel - left: No Injury Heel - right: No Injury Elbow - left: No Injury Elbow - right: No Injury Device Sites: O2 sat monitor Other Sites: IDB, vascular boot Last Bowel Movement: (?) Intake/Output Summary (Last 24 hours) at 09/05/2022 1439 Last data filed at 09/05/2022 1135 Gross per 24 hour Intake 3830 ml Output 30 ml Net 3800 ml Relevant medications: Continuous TPN Adult 100 mL/hr at 09/04/22 1725 Scheduled pantothenic Ac-Min Oil-Pet,Hyd Topical (Top) BID hydrocortisone Topical (Top) BID levothyroxine 70 mcg Intravenous QAM melatonin 6 mg Oral Daily after dinner cyanocobalamin (Vitamin B-12) 1,000 mcg Oral Nightly enoxaparin 30 mg Subcutaneous Nightly pantothenic Ac-Min Oil-Pet,Hyd 1 each Topical (Top) BID lidocaine 2 patch Transdermal Q24H PRN oxyCODONE OR oxyCODONE, polyethylene glycoL (MIRALAX) oral powder, LORazepam, diphenhydrAMINE, HYDROmorphone, diazePAM, cyclobenzaprine, magnesium sulfate OR magnesium sulfate, ondansetron, prochlorperazine Anthropometrics: Admit Weight: 43.91 kg Estimated body mass index is 18.56 kg/m?? as calculated from the following: Height as of this encounter: 157.5 cm (5' 2). Weight as of this encounter: 46 kg (101 lb 8 oz). [place] Body Weight (IBW) (kg): 50 Wt Readings from Last 10 Encounters: 08/28/22 46 kg (101 lb 8 oz) 06/01/22 44.3 kg (97 lb 9.6 oz) 03/16/22 44.5 kg (98 lb 3.2 oz) 10/18/21 45.4 kg (100 lb) 10/05/21 46.1 kg (101 lb 9.6 oz) 09/05/21 46.1 kg (101 lb 11.2 oz) 08/18/21 43.1 kg (95 lb) 07/04/21 43.1 kg (95 lb) 03/07/21 43.1 kg (95 lb) 11/01/20 45.3 kg (99 lb 12.8 oz) No data found. Weight Source: Bed Estimated / Assessed Needs: Kcal / K - 1635 Kcal (30 Kcal/Kg - 35 Kcal/Kg) Estimated Protein Needs: 70.05 - 93 g (1.5 g/Kg - 2.0 g/Kg) Nutrition intake and intake history / interview: 09/05: Pt got Gtube in IR this morning. Will continue with PPN tonight until Gtube in use and ideally tube feeds are able to be utilized at goal. 09/04: Pt planned for Gtube placement with IR at 0930 tomorrow morning. Gtube placement has been bumped several times and patient has been receiving inadequate nutrition x 5-6 days now. PPN will continue tonight with slight increase in calories (~67% of goal). There is not room for any additional pedro ories at this time. 09/01: PPN to continue; AA increased to 120 grams. TF recs as above once PEG is placed. Hyponatremianoted; unable ot increase Na concentration in PPN, but total volume can be reduced however this will diminish nutrition provisions. 08/31: Per team, NGT was removed yesterday to see if it was interfering with her swallow. Pt was then scoped and noted to have some cord paresis and laryngeal penetration and pooling of secretions. Plan is to give patient a day or two to let her work on taking more PO and providing PPN for now. If no improvement will move toward peg. Discussed with pharmacy that both intralipid and smof lipids have a hypersensitivity to peanut allergy listed so will leave lipids out of PPN. 08/28: Discharge pended for Sun/ this week. Unsure if pt will be going home on TF, pending swallow attempt tomorrow that will determine if pt will needs a PEG or not. Will preemptively transitionto Complete 1.4 (standard formula) that pt will go home on if TF is needed. 08/25/22: Follow up for pt w/ Tfs. Due to bed transfer, pt did not receive bolus feeds yesterday as formula was not available- this was corrected this morning. Pt has concern of soy allergy which results in increased secretions; discussed the very small amount of soy oil in current formula. Discussedavailability of Compleat 1.4 but it has lower protein content- pt prefers to stay w/ current formula. Reviewed calorie provisions and suggest increasing to 35 kcal/kg- pt in agreement and also requests free water in an effort to thin secretions.Unclear of nutrition plan in moving towards discharge,if able to adv diet, pt has c/o many food intolerances; ( seafood, tomatoes , etc) if going home onTfs would consider Compleat 1.4 250 ml bolus 4X/day to provide 1500 kcal & 100 g protein. 08/24: Pt seen w/ continuous TF infusing at goal rate of 47 mL/hr. Pt denies issues w/ tolerance. Bolus feeding recs as requested per team above. Will monitor K on labs tomorrow and switch TF formula as needed to increase K+ provision. 08/22: Consulted for TEN recommendations. Do not see enteral access at this time in the [facility]. Nutrition Focused Physical Exam: Not performed Malnutrition Diagnosis: Not enough data to assess (Fransisca, JPEN J Parenteral Enteral Nutr. 2011; 36(3): 273-83) Nutrition to continue to follow up while inpatient [address] * Helen Acosta RN - 09/05/2022 12:34 PM EDT Pt arrived to [facility], placed on monitor and received report. Meplex drsg reinforced over stoma. * Roberth Agudelo, INFORMATION DEVELOPER - 09/05/2022 11:26 AM EDT Speech-Language Pathology Progress Note 09/05/2022 11:26 AM Total Treatment Time: 0 min. No charge Total Timed Code Treatment: 0 min. Chart reviewed. Pt NPO for G-tube placement again today. Coordinated care with ENT. Plan for FEES assessment on 09/06/22 at 1PM. Roberth Agudelo MS, [facility]-INFORMATION DEVELOPER Speech-Language Pathologist Rehabilitation Medicine Pager #[phone] * Akhil Martinez PA - 09/05/2022 9:18 AM EDT Plastic Surgery Inpatient Progress Note (Team Pager #[phone] Date of surgery: 08/21/22 CC/Procedure(s): Oromandibular reconstruction with right fibula free flap, skin graft from R thigh to right leg and submental opening Surgeon: Luz Elena Subjective/IE: LASHON, scheduled for IR G tube today. Objective: BP 125/61 Pulse 80 Temp 36.4 ??C (97.5 ??F) (Oral) Resp 16 Ht 157.5 cm (5' 2) Wt 46 kg (101 lb 8 oz) SpO2 100% BMI 18.56 kg/m?? Intake/Output Summary (Last 24 hours) at 09/05/2022 0918 Last data filed at 09/05/2022 0500 Gross per 24 hour Intake 3430 ml Output 30 ml Net 3400 ml General: Resting comfortably in no acute distress. Neuro: Awake, alert, responds to questions appropriately. CV: Regular rate on pulsox Pulm: Non-labored breathing on RA, trach capped HEENT: Flap warm and well perfused with strong doppler signal, skin paddle euchromic with donor site, skin graft with adequate take, inset incision intact, neck incision intact with shayna with improving erythema and stable induration (most significant, tender, and oozing on right), drain x1 w/ serous output with some fibrinous debris, removed today. RLE: Skin graft with adequate take. Allevyn removed today, donor site expectedly hyperemic, no signs of infection. Labs: Recent Labs 09/05/22 0245 WBC 9.1 HGB 9.7* HCT 28.0* NA 138 K 4.4 CL 101 BUN 20* CREATININE 0.48* CO2 28 GLUCOSE 98 ANIONGAP 9 CALCIUM 9.3 Micro: N/A Imaging/Studies: N/A Assessment: Theresa Hollis is a 52 y.o. female s/p oromandibular reconstruction with a fibula free flap 08/21. Recovering well overall. Continue to monitor neck incision. Plan: Q4h flap checks Dressings/Drains: Aquaphor BID to right leg (skin graft donor and recipient sites) and chin skin graft Antibiotics: Unasyn x5d (complete) Diet: TPN. G-tube planned Activity: WBAT RLE. May wear boot as needed for comfort. DVT prophylaxis: SCD left leg, Lovenox Remainder of care per primary team CALLY Owens Plastic Surgery Inpatient Team Pager #[phone] * Toño Pacheco MD - 09/05/2022 7:29 AM EDT OTOLARYNGOLOGY - HEAD & NECK SURGERY DAILY PROGRESS NOTE Name: Theresa Hollis Age/Sex: 52 y.o. female Attending: Roberth Lee MD Hospital Day: 16 15 Days Post-Op Patient ID/Reason for Admission Theresa Hollis is a 52 y.o. 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 She underwent tracheostomy, neck exploration, mandible excision, and fibula free flap reconstruction 08/21 with ENT and PRS. Interval History - Drain output remains elevated this AM - Excited to finally be getting PEG - AF, VSS - No additional complaints Vitals Last value 24hr Range Temperature: 36.4 ??C (97.5 ??F) Temp: [35.9 ??C (96.6 ??F)-36.4 ??C (97.5 ??F)] Heart Rate: 80 Heart Rate: -- Blood Pressure: 125/61 BP: (125-150)/(54-85) Respiratory Rate: 16 Resp: [16-18] SpO2: 100 % SpO2: [92 %-100 %] Intake & Output Intake/Output Summary (Last 24 hours) at 09/05/2022 0730 Last data filed at 09/05/2022 0500 Gross per 24 hour Intake 3430 ml Output 30 ml Net 3400 ml Physical Exam General: NAD, non-ill appearing, resting comfortably in bed. Face: Symmetric without dysmorphic features. Eyes: EOMI, conjunctiva healthy. L periorbital edema. Ears: Auricles symmetric, no lesions Nose: Patent nares, grossly normal appearance Oral Cavity/Pharynx: Mucosa is pink, oropharynx symmetric. Mandibular suture lines intact without apparent dehiscence, flap is pink, warm, and well perfused. Granulation tissue anteriorly - stable Neck: Soft, trachea midline. Tracheostomy tube secure in place with soft straps, capped. Generalized induration/erythema of neck. Crusting along suture lines. Submental skin graft intact with some crusting present as well. R neck FARRUKH in place, holding suction with fibrinous debris in the bulb this AM. Chest: Non-labored breathing, regular rate on RA Neuro: Alert & oriented, moving extremities x 4, communicating via writing and speech Labs Recent Labs 09/05/22 0245 09/04/22 0025 WBC 9.1 8.3 HGB 9.7* 9.1* HCT 28.0* 26.8* PLATELET 655* 624* NA 138 136 K 4.4 3.8 CL 101 100 CO2 28 27 BUN 20* 19* CREATININE 0.48* 0.45* GLUCOSE 98 98 CALCIUM 9.3 8.8 MAGNESIUM 1.01 1.00 PHOS 3.9 3.8 Imaging None. ASSESSMENT & PLAN Theresa Hollis is a 52 y.o. female s/p neck exploration, tracheostomy, mandible excision, and fibula free flap reconstruction, 15 Days Post-Op. Theresa will go with IR for PEG placement this AM. Will consider decannulation, drain removal this PM following procedure. Surgical/Head&Neck: Neck should remain in neutral position Trach suctioning and trach care per RT. No HTC if trach capped. Please gently clean suture lines with diluted hydrogen peroxide) to remove crusting. Apply aquaphor to incisions and skin graft over submental region. OK for trach capping Neurologic: Pain controlled with lidoderm patch, oxycodone PRN, dilaudid PRN. Cardiovascular: PAMELA Pulmonary: Oxygenation on RA Gastrointestinal: Zofran PRN Genitourinary: Voiding spontaneously Musculoskeletal: PAMELA Fluids/Electrolytes: PAMELA Nutrition: NPO diet (Give Meds) TPN Adult G tube pending Infectious Disease: WBC wnl, Unasyn x 5 days; Peridex Hematology: Hemoglobin wnl Endocrine: Home levothyroxine Consults: PRS, general surgery Lines: Patient Lines/Drains/Airways Status Active Tubes/Lines/Drains Name Placement date Placement time Site Days PICC Line - Single Lumen 09/02/22 1633 basilic vein (medial side of arm), right 4 Fr 09/02/22 1633 -- 3 Closed/Suction Drain Right;Anterior Neck Bulb 15 Citizen Of [place] 08/21/22 1947 Neck 15 Trach Airway 08/28/22 1616 08/28/22 1616 -- 8 Prophylaxis: Lovenox, SCD, activity per PRS Disposition: Floor status, Attempt Cardiopulmonary Resuscitation - Inpatient Discharge: Plan for d/c TBD; Needs trach supplies, suction, VNA; Follow-up ENT Toño Pacheco MD, PGY1 09/05/22 7:30 AM ENT Team Pager: [phone] * Joey Mckeon RN - 09/05/2022 5:53 AM EDTSummary: Overnight notes OUTCOME EVALUATION NOTE: OUTCOME SUMMARY: Pt AOx4, cooperative, no c/o pain from incision sites. Pt able to communicate between verbal and written notes with staff. FARRUKH drain emptied 20mL of osorio, cloudy drainage; site reddened with dried drainage. Neck flap circulation checked Q4h (warm, pulse dopplered, no discoloration), aquaphor applied to incision site. Pt able to ambulate to restroom with walker; voided x3, no BM. Pt has congested cough with moderate sputum expectoration, suction at bedside for comfort and trach suction if necessary. No acute events overnight. PLAN MOVING FORWARD: VS q4hrs Flap check q4hrs Peg placement Trach removal Drain removal INDIVIDUALIZED FALL PREVENTION INTERVENTIONS: Patient-specific fall risk factors per assessment: lines and wires Assistance: SBA, FWW Supervision: Eyes on, Arms reach, Hands on Surveillance: Bed locked in low position, call ramirez within reach, purposeful hourly rounding, clutter free environment, bed/chair alarm on, suction set up Patient-specific fall prevention interventions for sensory deficits provided: N/A * Christiane Reyes [facility] - 09/05/2022 5:00 AM EDT RT Tracheostomy Note Oxygen Delivery: Interface: None (Room air) Skin Assessment:WDL Barrier Used: None, patient refused Airway: Trach Airway 08/28/22 1616 (Active) Tracheal Airway Size Verfication 4 mm Appearance clean Tube Securement foam trach ties Trach Cap Status capped/plugged Tube Care/Reposition inner cannula changed;site care done Manual Resuscitator at Bedside Yes Spare Trach At Bedside Yes Trach ToGo kit at Bedside Yes Emergency Airway Sign at [facility]? Yes Assessment: Received patient with tracheostomy tube in place, capped, and tolerating cap well. Trach care performed. No incidents overnight. Plan: Continue with capping as tolerated. Christiane Reyes RCP * Joey Mckeon RN - 09/04/2022 8:26 PM EDTSummary: Question regarding medication dilution Page Sent Successfully Page Confirmation To Pager number: [phone] From Submitter: Joey Mckeon Urgency Level: Call Me Callback Number: [phone] The following Message was sent: [Call Me] - Callback:[phone] Question regarding medication dilution [facility] Joey Mckeon The following status was returned from the gravity meter observer: Page for [phone] successfully sent to [phone] having status of Available. * Derrick Abel RD - 09/04/2022 12:41 PM EDT Images from the original note were not included. Nutrition Progress Note Theresa Hollis is a 52 y.o. female admitted post op mandible resection, prosthesis, skin graft, and new tracheostomy. 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 Reason for Assessment: Follow-up/PPN Nutrition Recommendations: PPN to continue at 1800 at 100 ml/hr to provide 1097 calories, from 100 grams of amino acid and 205grams of dextrose in a 1/4 NS solution of 2.4 L. -- Changes today: increased calories from 990 kcal to 1097 kcal. - PPN will not contain lipids d/t patients peanut allergy. If re-starting enteral nutrition, Suggest bolus feeds, with a goal of: 300 ml of Complete Standard 1.4, 4 times per day plus 2 scoop of protein powder daily. Flush with 60 ml water before and after each feed to maintain patency and for hydration. Suggest 100 ml free water BID Compleat Standard 1.4 Total Volume Per Day: 1200 mL Scoops of Protein Powder: 2 Calories per Day: 1730 Protein per Day: 98 g Free Water mL per Day: 981 % RDI: 120 % Asked RN for updated weight. Last documented on 08/28. I was able to discuss plan with provider Cheryl Pacheco MD #[id number] . Current Nutrition Regimen: Active Orders Diet NPO diet (Give Meds) Frequency: Effective Midnight Number of Occurrences: Until Specified TPN Medication Recent History (Show up to 3 orders; newest on the left. Changes between the two most recent orders are indicated.) Start date and time 09/04/2022 1800 09/01/2022 1800 08/31/2022 1800 TPN Adult [[id number]] TPN Adult [[id number]] TPN Adult [[id number]] Order Status Active Last Dose in Progress Completed Last Admin New Bag at 09/03/2022 1719 by Annemarie Camarena RN New Bag at 08/31/2022 1729 by Catherine Morataya RN Frequency Continuous (1800) Continuous (1800) Continuous (1800) Additives adult multivitamin 10 mL 10 mL 10 mL adult trace elements Zn-Cu-Mn-Se (Tralement) 1 mL 1 mL 1 mL Electrolytes potassium phosphate 34 mmol 34 mmol 30 mmol potassium chloride 20 mEq 20 mEq 25 mEq sodium chloride 90 mEq 90 mEq 90 mEq magnesium sulfate 16 mEq 16 mEq 16 mEq Dextrose dextrose 70% 205 g 150 g 150 g Amino Acids amino acid 15% no.5 (ClinisoL) 100 g 120 g 100 g QS Base sterile water 1,381.63 mL 1,326.93 mL 1,459.06 mL Energy Contribution Proteins 400 kcal 480 kcal 400 kcal Dextrose 697.1 kcal 510.03 kcal 510.03 kcal Lipids -- -- -- Total 1,097.1 kcal 990.03 kcal 910.03 kcal Electrolyte Ion Calculated Amount Sodium 90 mEq 90 mEq 90 mEq Potassium 69.87 mEq 69.87 mEq 69 mEq Calcium -- -- -- Magnesium 16 mEq 16 mEq 16 mEq Aluminum -- -- -- Phosphate 34 mmol 34 mmol 30 mmol Chloride 110 mEq 110 mEq 115 mEq Acetate 84.67 mEq 101.6 mEq 84.67 mEq Chloride: Acetate Ratio 1.3 1.085 1.36 Trace Elements Copper 0.3 mg 0.3 mg 0.3 mg Manganese 55 mcg 55 mcg 55 mcg Selenium 60 mcg 60 mcg 60 mcg Zinc 3 mg 3 mg 3 mg Other Total Amino Acid 100 g 120 g 100 g Total Amino Acid/kg 2.17 g/kg 2.61 g/kg 2.17 g/kg Glucose Infusion Rate 3.1 mg/kg/min 2.26 mg/kg/min 2.26 mg/kg/min Osmolarity 990.37 959.08 875.02 Volume 2,400 mL 2,400 mL 2,400 mL Rate 100 mL/hr 100 mL/hr 100 mL/hr Dosing Weight 46 kg 46 kg 46 kg Infusion Site Peripheral Peripheral Peripheral Total Multi-vitamins 10 mL 10 mL 10 mL Assessment: Lab Results Component Value Date NA 136 09/04/2022 K 3.8 09/04/2022 CL 100 09/04/2022 CO2 27 09/04/2022 BUN 19 (H) 09/04/2022 CREATININE 0.45 (L) 09/04/2022 ESTGFR 116 09/04/2022 MAGNESIUM 1.00 09/04/2022 CALCIUM 8.8 09/04/2022 PHOS 3.8 09/04/2022 [id number] 213 (L) 08/22/2022 No results found for: POCGLU Patient Lines/Drains/Airways Status Active Nutritional LDAs Name Placement date Placement time Site Days PICC Line - Single Lumen 09/02/22 1633 basilic vein (medial side of arm), right 4 Fr 09/02/22 1633 -- 2 Closed/Suction Drain Right;Anterior Neck Bulb 15 Citizen Of [place] 08/21/22 1947 Neck 14 Physical Findings Skin: surgical incisions Oxygen Therapy / Airway Device: None (Room air) Shift Pressure Injury Prevention Occiput: No Injury Thoracic Spine: No Injury Sacral: No Injury Ischial - left: No Injury Ischial - right: No Injury Heel - left: No Injury Heel - right: No Injury Elbow - left: No Injury Elbow - right: No Injury Device Sites: O2 sat monitor, IV sites, other (see comments) (FARRUKH drain) Other Sites: IDB, vascular boot Last Bowel Movement: 08/31/22 Intake/Output Summary (Last 24 hours) at 09/04/2022 1241 Last data filed at 09/04/2022 0400 Gross per 24 hour Intake 0 ml Output 45 ml Net -45 ml Relevant medications: Continuous TPN Adult TPN Adult 100 mL/hr at 09/03/22 1719 Scheduled pantothenic Ac-Min Oil-Pet,Hyd Topical (Top) BID levothyroxine 70 mcg Intravenous QAM melatonin 6 mg Oral Daily after dinner cyanocobalamin (Vitamin B-12) 1,000 mcg Oral Nightly enoxaparin 30 mg Subcutaneous Nightly pantothenic Ac-Min Oil-Pet,Hyd 1 each Topical (Top) BID lidocaine 2 patch Transdermal Q24H PRN oxyCODONE OR oxyCODONE, polyethylene glycoL (MIRALAX) oral powder, LORazepam, diphenhydrAMINE, HYDROmorphone, diazePAM, cyclobenzaprine, magnesium sulfate OR magnesium sulfate, sodium chloride 0.9 % (flush), lidocaine, ondansetron, prochlorperazine Anthropometrics: Admit Weight: 43.91 kg Estimated body mass index is 18.56 kg/m?? as calculated from the following: Height as of this encounter: 157.5 cm (5' 2). Weight as of this encounter: 46 kg (101 lb 8 oz). [place] Body Weight (IBW) (kg): 50 Wt Readings from Last 10 Encounters: 08/28/22 46 kg (101 lb 8 oz) 06/01/22 44.3 kg (97 lb 9.6 oz) 03/16/22 44.5 kg (98 lb 3.2 oz) 10/18/21 45.4 kg (100 lb) 10/05/21 46.1 kg (101 lb 9.6 oz) 09/05/21 46.1 kg (101 lb 11.2 oz) 08/18/21 43.1 kg (95 lb) 07/04/21 43.1 kg (95 lb) 03/07/21 43.1 kg (95 lb) 11/01/20 45.3 kg (99 lb 12.8 oz) Patient Vitals for the past 168 hrs: Weight 08/28/22 1500 46 kg (101 lb 8 oz) Weight Source: Bed Estimated / Assessed Needs: Kcal / K - 1635 Kcal (30 Kcal/Kg - 35 Kcal/Kg) Estimated Protein Needs: 70.05 - 93 g (1.5 g/Kg - 2.0 g/Kg) Nutrition intake and intake history / interview: 09/04: Pt planned for Gtube placement with IR at 0930 tomorrow morning. Gtube placement has been bumped several times and patient has been receiving inadequate nutrition x 5-6 days now. PPN will continue tonight with slight increase in calories (~67% of goal). There is not room for any additional pedro ories at this time. 09/01: PPN to continue; AA increased to 120 grams. TF recs as above once PEG is placed. Hyponatremianoted; unable ot increase Na concentration in PPN, but total volume can be reduced however this will diminish nutrition provisions. 08/31: Per team, NGT was removed yesterday to see if it was interfering with her swallow. Pt was then scoped and noted to have some cord paresis and laryngeal penetration and pooling of secretions. Plan is to give patient a day or two to let her work on taking more PO and providing PPN for now. If no improvement will move toward peg. Discussed with pharmacy that both intralipid and smof lipids have a hypersensitivity to peanut allergy listed so will leave lipids out of PPN. 08/28: Discharge pended for Sun/ this week. Unsure if pt will be going home on TF, pending swallow attempt tomorrow that will determine if pt will needs a PEG or not. Will preemptively transitionto Complete 1.4 (standard formula) that pt will go home on if TF is needed. 08/25/22: Follow up for pt w/ Tfs. Due to bed transfer, pt did not receive bolus feeds yesterday as formula was not available- this was corrected this morning. Pt has concern of soy allergy which results in increased secretions; discussed the very small amount of soy oil in current formula. Discussedavailability of Compleat 1.4 but it has lower protein content- pt prefers to stay w/ current formula. Reviewed calorie provisions and suggest increasing to 35 kcal/kg- pt in agreement and also requests free water in an effort to thin secretions.Unclear of nutrition plan in moving towards discharge,if able to adv diet, pt has c/o many food intolerances; ( seafood, tomatoes , etc) if going home onTfs would consider Compleat 1.4 250 ml bolus 4X/day to provide 1500 kcal & 100 g protein. 08/24: Pt seen w/ continuous TF infusing at goal rate of 47 mL/hr. Pt denies issues w/ tolerance. Bolus feeding recs as requested per team above. Will monitor K on labs tomorrow and switch TF formula as needed to increase K+ provision. 08/22: Consulted for TEN recommendations. Do not see enteral access at this time in the [facility]. Nutrition Focused Physical Exam: Not performed Malnutrition Diagnosis: Not enough data to assess (Fransisca, JPEN J Parenteral Enteral Nutr. 2011; 36(3): 273-83) Nutrition to continue to follow up while inpatient [address] * Frank Gao RCP - 09/04/2022 11:16 AM EDT Size: Adult Trach: 4.0 Type: Nicho Style: UN (Disposable) Securement: Foam Trach Ties Skin Integrity: WDL Capped: Yes Trach care: Performed Trach to Go Bag: Spare trach and equipment is in place. Pt awake and interactive with cares. Pt had no observed break down, secretions noted around stoma sight. Pt maintained well t/o the afternoon, pt requested to not have gauze under the trach. Pt was informed of possibility of break down. * Toño Pacheco MD - 09/04/2022 8:05 AM EDT OTOLARYNGOLOGY - HEAD & NECK SURGERY DAILY PROGRESS NOTE Name: Theresa Hollis Age/Sex: 52 y.o. female Attending: Roberth Lee MD Hospital Day: 15 14 Days Post-Op Patient ID/Reason for Admission Theresa Hollis is a 52 y.o. 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 She underwent tracheostomy, neck exploration, mandible excision, and fibula free flap reconstruction 08/21 with ENT and PRS. Interval History - GS unable to perform G tube again yesterday - Drain output increased this AM, appears more osorio - Feels well this AM, frustrated but understanding - No additional complaints Vitals Last value 24hr Range Temperature: 35.9 ??C (96.6 ??F) Temp: [35.9 ??C (96.6 ??F)-37 ??C (98.6 ??F)] Heart Rate: 80 Heart Rate: [80] Blood Pressure: 126/70 BP: (122-146)/(64-84) Respiratory Rate: 18 Resp: [18-20] SpO2: 98 % SpO2: [97 %-100 %] Intake & Output Intake/Output Summary (Last 24 hours) at 09/04/2022 0806 Last data filed at 09/04/2022 0400 Gross per 24 hour Intake 0 ml Output 55 ml Net -55 ml Physical Exam General: NAD, non-ill appearing, resting comfortably in bed. Face: Symmetric without dysmorphic features. Eyes: EOMI, conjunctiva healthy. L periorbital edema. Ears: Auricles symmetric, no lesions Nose: Patent nares, grossly normal appearance Oral Cavity/Pharynx: Mucosa is pink, oropharynx symmetric. Mandibular suture lines intact without apparent dehiscence, flap is pink, warm, and well perfused. Granulation tissue anteriorly - stable Neck: Soft, trachea midline. Tracheostomy tube secure in place with soft straps, capped. Generalized induration/erythema of neck. Crusting along suture lines. Submental skin graft intact with some crusting present as well. Chest: Non-labored breathing, regular rate on RA Neuro: Alert & oriented, moving extremities x 4, communicating via writing and speech Labs Recent Labs 09/04/22 0025 09/03/22 0200 WBC 8.3 8.2 HGB 9.1* 9.8* HCT 26.8* 29.4* PLATELET 624* 657* NA 136 137 K 3.8 4.2 CL 100 98 CO2 27 28 BUN 19* 20* CREATININE 0.45* 0.45* GLUCOSE 98 85 CALCIUM 8.8 9.2 MAGNESIUM 1.00 1.05 PHOS 3.8 3.7 Imaging None. ASSESSMENT & PLAN Theresa Hollis is a 52 y.o. female s/p neck exploration, tracheostomy, mandible excision, and fibula free flap reconstruction, 14 Days Post-Op. Plan still for G tube pending GS/IR availability. Hopeful for today, and if not, tomorrow. PICC in place and PPN running. Pull drain per PRS. Surgical/Head&Neck: Neck should remain in neutral position Trach suctioning and trach care per RT. No HTC if trach capped. Please gently clean suture lines with diluted hydrogen peroxide) to remove crusting. Apply aquaphor to incisions and skin graft over submental region. OK for trach capping Neurologic: Pain controlled with lidoderm patch, oxycodone PRN, dilaudid PRN. Cardiovascular: PAMELA Pulmonary: Oxygenation on RA Gastrointestinal: Zofran PRN Genitourinary: Voiding spontaneously Musculoskeletal: PAMELA Fluids/Electrolytes: - Monitoring sodium, slowly uptrending. Nutrition: TPN Adult NPO diet (Give Meds) G tube pending Infectious Disease: WBC wnl, Unasyn x 5 days; Peridex Hematology: Hemoglobin wnl Endocrine: Home levothyroxine Consults: PRS, general surgery Lines: Patient Lines/Drains/Airways Status Active Tubes/Lines/Drains Name Placement date Placement time Site Days PICC Line - Single Lumen 09/02/22 1633 basilic vein (medial side of arm), right 4 Fr 09/02/22 1633 -- 2 Closed/Suction Drain Right;Anterior Neck Bulb 15 Citizen Of [place] 08/21/22 1947 Neck 14 Trach Airway 08/28/22 1616 08/28/22 1616 -- 7 Prophylaxis: Lovenox, SCD, activity per PRS Disposition: Floor status, Attempt Cardiopulmonary Resuscitation - Inpatient Discharge: Plan for d/c TBD; Needs trach supplies, suction, VNA; Follow-up ENT Toño Pacheco MD, PGY1 09/04/22 8:06 AM ENT Team Pager: [phone] * Anabell Nelson MD - 09/04/2022 7:49 AM EDT Plastic Surgery Inpatient Progress Note (Team Pager #[phone] Date of surgery: 08/21/22 CC/Procedure(s): Oromandibular reconstruction with right fibula free flap, skin graft from R thigh to right leg and submental opening Surgeon: Luz Elena Subjective/IE: No acute event overnight. She was unable to get her G-tube yesterday. She endorses some neck tenderness but overall feels well. Denies fevers/chills. Objective: BP 126/70 (BP Location (NBP): Left leg, Patient Position: Sitting) Pulse 80 Temp 35.9 ??C (96.6??F) (Oral) Resp 18 Ht 157.5 cm (5' 2) Wt 46 kg (101 lb 8 oz) SpO2 98% BMI 18.56 kg/m?? Intake/Output Summary (Last 24 hours) at 09/04/2022 0749 Last data filed at 09/04/2022 0400 Gross per 24 hour Intake 5 ml Output 55 ml Net -50 ml General: Resting comfortably in no acute distress. Neuro: Awake, alert, responds to questions appropriately. CV: Regular rate on pulsox Pulm: Non-labored breathing on RA, trach capped HEENT: Flap warm and well perfused with strong doppler signal, skin paddle euchromic with donor site, skin graft with adequate take, inset incision intact, neck incision intact with shayna with continued erythema and induration (most significant, tender, and oozing on right), drain x1 w/ serosanguinous output. RLE: Skin graft with adequate take. Labs: Recent Labs 09/04/22 0025 WBC 8.3 HGB 9.1* HCT 26.8* NA 136 K 3.8 CL 100 BUN 19* CREATININE 0.45* CO2 27 GLUCOSE 98 ANIONGAP 9 CALCIUM 8.8 Micro: N/A Imaging/Studies: N/A Assessment: Theresa Hollis is a 52 y.o. female s/p oromandibular reconstruction with a fibula free flap 08/21. Recovering well overall. Continue to monitor neck incision. Plan: Q4h flap checks Dressings/Drains: Strip and record drain output. Allevyn off 09/05. Aquaphor BID to right leg and chin skin grafts Antibiotics: Unasyn x5d (complete) Diet: TPN. G-tube planned Activity: WBAT RLE. May wear boot as needed for comfort. DVT prophylaxis: SCD left leg, Lovenox Remainder of care per primary team Anabell Nelson MD Plastic Surgery Inpatient Team Pager #[phone] * Joey Mckeon RN - 09/04/2022 5:09 AM EDT OUTCOME EVALUATION NOTE: OUTCOME SUMMARY: Pt AOx4, cooperative, no c/o pain from incision sites. Pt able to communicate between verbal and written notes with staff. FARRUKH drain emptied 15mL of osorio, cloudy drainage; site reddened with dried drainage. Neck flap circulation checked Q4h (warm, pulse dopplered, no discoloration), aquaphor applied to incision site. Pt able to ambulate to restroom with walker; voided x3, no BM. Pt has congested cough with no/minimal sputum expectoration, suction at bedside for comfort and trach suction if necessary. No acute events overnight. PLAN MOVING FORWARD: VS q4hrs Flap check q4hrs Peg placement INDIVIDUALIZED FALL PREVENTION INTERVENTIONS: Patient-specific fall risk factors per assessment: lines and wires Assistance: SBA, FWW Supervision: Eyes on, Arms reach, Hands on Surveillance: Bed locked in low position, call ramirez within reach, purposeful hourly rounding, clutter free environment, bed/chair alarm on, suction set up Patient-specific fall prevention interventions for sensory deficits provided: N/A * Joey Reese RRT - 09/04/2022 2:26 AM EDT Respiratory Care Tracheostomy Note O2 Device: None (Room air) O2 Flow Rate (L/min): 40 L/min FiO2 (%): 21 % SpO2: 97 % Resp: 20 Airway Type: Shiley Size: Adult Trach: 4.0 Style: UN (Disposable) Cuff Pressure: Cuffless Securement: Foam Trach Ties Skin Integrity: WDL Capped: Yes Trach care: Performed Trach to Go Bag: Spare trach and equipment is in place. Assessment: Received Pt on R/A with Shiley 4.0 UN capped and secured with trach ties. Trach care performed without incident however, Pt did not want trach ties changes as it caused discomfort with sutures around area. All emergency and spare supplies at bedside. No events or complications t/o the night. Plan: Will continue to support Pt. * Joey Mckeon RN - 09/04/2022 1:06 AM EDT PICC line, RN collect * Joey Mckeon RN - 09/03/2022 8:25 PM EDTSummary: Aspiration risk/PO meds Page Sent Successfully Page Confirmation To Pager number: [phone] From Submitter: Joey Mckeon Urgency Level: Call Me Callback Number: [phone] The following Message was sent: [Call Me] - Callback:[phone]- aspiration risk with PO meds. OK to give? - Joey Mckeon The following status was returned from the gravity meter observer: Page for [phone] successfully sent to [phone] having status of Available. * Annemarie Camarena RN - 09/03/2022 6:51 PM EDT OUTCOME EVALUATION NOTE: OUTCOME SUMMARY: Pt A&Ox4, VSS, trach capped, RA. Strong, spontaneous cough, oral suctioning independently per pt. Flap CMS q4. Emergency airway equipment at bedside. PPN via PIV--phlebitis/pain/redness 09/02, Vascular Access Team to bedside to assess L arm. Single Lumen PICC placed JAMES. Unknown peg placement time, checked in with OR throughout the day, @5pm OR desk stated the Surgery team cancelled today, possible tomorrow. Pt very frustrated over access complications and unknown OR/IR time for peg. ENT notified and aware of situation, pt very MD deidra bedside talking with patient. PLAN MOVING FORWARD: VS q4hrs Flap check q4hrs Peg placement INDIVIDUALIZED FALL PREVENTION INTERVENTIONS: Patient-specific fall risk factors per assessment: lines and wires Assistance: SBA, FWW Supervision: Eyes on, Arms reach, Hands on Surveillance: Bed locked in low position, call ramirez within reach, purposeful hourly rounding, clutter free environment, bed/chair alarm on Patient-specific fall prevention interventions for sensory deficits provided: N/A * Frank Gao RCP - 09/03/2022 11:56 AM EDT Size: Adult Trach: 4.0 Type: Nicho Style: UN (Disposable) Securement: Foam Trach Ties Skin Integrity: WDL Capped: Yes Trach care: Performed Trach to Go Bag: Spare trach and equipment is in place. Upon exam this AM pt was awake and interactive with cares. Pt had the above noted trach secure in place with all emergency equipment at the bedside. Pt had good bilateral chest rise with no observed WOB. Trach care done this AM drainage from trach sigh and right neck drain sight noted. Pt maintained well t/o the shift no observed issues. 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 * Yue Arellano MD - 09/03/2022 9:11 AM EDT OTOLARYNGOLOGY - HEAD & NECK SURGERY DAILY PROGRESS NOTE Name: Theresa Hollis Age/Sex: 52 y.o. female Attending: Roberth Lee MD Hospital Day: 14 13 Days Post-Op Patient ID/Reason for Admission Theresa Hollis is a 52 y.o. 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 She underwent tracheostomy, neck exploration, mandible excision, and fibula free flap reconstruction 08/21 with ENT and PRS. Interval History -Patient expressed desire for G tube; states she had one in 2006 and it worked well for her. She does not believe she can meet her nutritional demands with PO intake alone; general surgery consulted and likely can place no earlier than 09/04. IR also consulted. - Remained capped - IV line lost yesterday, PICC line placed and PPN resumed. - AF, VSS - NA 137 (130), slowly uptrending. Vitals Last value 24hr Range Temperature: 36.3 ??C (97.3 ??F) Temp: [36.3 ??C (97.3 ??F)-37.1 ??C (98.8 ??F)] Heart Rate: 73 Heart Rate: [73] Blood Pressure: 133/64 BP: (101-141)/(57-86) Respiratory Rate: 20 Resp: [19-24] SpO2: 100 % SpO2: [95 %-100 %] Intake & Output Intake/Output Summary (Last 24 hours) at 09/03/2022 0911 Last data filed at 09/03/2022 0400 Gross per 24 hour Intake 1537 ml Output 25 ml Net 1512 ml Physical Exam General: NAD, non-ill appearing, resting comfortably in bed. Face: Symmetric without dysmorphic features. Eyes: EOMI, conjunctiva healthy. L periorbital edema. Ears: Auricles symmetric, no lesions Nose: Patent nares, grossly normal appearance Oral Cavity/Pharynx: Mucosa is pink, oropharynx symmetric. Mandibular suture lines intact without apparent dehiscence, flap is pink, warm, and well perfused. Granulation tissue anteriorly - stable Neck: Soft, trachea midline. Tracheostomy tube secure in place with soft straps, capped. Generalized induration/erythema of neck. Crusting along suture lines. Submental skin graft intact with some crusting present as well. Chest: Non-labored breathing, regular rate on RA Neuro: Alert & oriented, moving extremities x 4, communicating via writing and speech Labs Recent Labs 09/03/22 0200 09/02/22 0028 WBC 8.2 8.6 HGB 9.8* 9.4* HCT 29.4* 27.7* PLATELET 657* 591* NA 137 130* K 4.2 4.1 CL 98 96* CO2 28 25 BUN 20* 17 CREATININE 0.45* 0.41* GLUCOSE 85 112 CALCIUM 9.2 8.7 MAGNESIUM 1.05 1.02 PHOS 3.7 3.2 Imaging None. ASSESSMENT & PLAN Theresa Hollis is a 52 y.o. female s/p neck exploration, tracheostomy, mandible excision, and fibula free flap reconstruction, 13 Days Post-Op. Theresa would like to pursue a G tube; we have engaged both general surgery and IR to discuss available timing. To remain NPO for now. PICC in place and PPN running. General surgery is unsure if she will be able to go today based on OR availability. Surgical/Head&Neck: Neck should remain in neutral position Trach suctioning and trach care per RT. No HTC if trach capped. Please gently clean suture lines with diluted hydrogen peroxide) to remove crusting. Apply aquaphor to incisions and skin graft over submental region. OK for trach capping Neurologic: Pain controlled with lidoderm patch, oxycodone PRN, dilaudid PRN. Cardiovascular: PAMELA Pulmonary: Oxygenation on RA Gastrointestinal: Zofran PRN Genitourinary: Voiding spontaneously Musculoskeletal: PAMELA Fluids/Electrolytes: - Monitoring sodium, slowly uptrending. Nutrition: TPN Adult NPO diet (Give Meds) G tube pending Infectious Disease: WBC wnl, Unasyn x 5 days; Peridex Hematology: Hemoglobin wnl Endocrine: Home levothyroxine Consults: PRS, general surgery Lines: Patient Lines/Drains/Airways Status Active Tubes/Lines/Drains Name Placement date Placement time Site Days PICC Line - Single Lumen 09/02/22 1633 basilic vein (medial side of arm), right 4 Fr 09/02/22 1633 -- 1 Closed/Suction Drain Right;Anterior Neck Bulb 15 Citizen Of [place] 08/21/22 1947 Neck 13 Trach Airway 08/28/22 1616 08/28/22 1616 -- 6 Prophylaxis: Lovenox, SCD, activity per PRS Disposition: Floor status, Attempt Cardiopulmonary Resuscitation - Inpatient Discharge: Plan for d/c TBD; Needs trach supplies, suction, VNA; Follow-up ENT Yue Arellano MD, PGY4 09/03/22 9:11 AM ENT Team Pager: [phone] * Anabell Nelson MD - 09/03/2022 8:47 AM EDT Images from the original note were not included. Plastic Surgery Inpatient Progress Note (Team Pager #[phone] Date of surgery: 08/21/22 CC/Procedure(s): Oromandibular reconstruction with right fibula free flap, skin graft from R thigh to right leg and submental opening Surgeon: Luz Elena Subjective/IE: No acute event overnight. Patient reports doing well. Endorses neck incision swelling and pain. PICC placement was painful but does not bother her now. She is awaiting G-tube placement. Objective: BP 133/64 (BP Location (NBP): Left leg, Patient Position: Sitting) Pulse 73 Temp 36.3 ??C (97.3??F) (Temporal) Resp 20 Ht 157.5 cm (5' 2) Wt 46 kg (101 lb 8 oz) SpO2 100% BMI 18.56 kg/m?? Intake/Output Summary (Last 24 hours) at 09/03/2022 0847 Last data filed at 09/03/2022 0400 Gross per 24 hour Intake 1537 ml Output 25 ml Net 1512 ml General: Resting comfortably in no acute distress. Neuro: Awake, alert, responds to questions appropriately. CV: Regular rate on pulsox Pulm: Non-labored breathing on RA, trach capped HEENT: Flap warm and well perfused with strong doppler signal, skin paddle euchromic with donor site, skin graft with adequate take, inset incision intact, neck incision intact with shayna with continued erythema and induration (most significant and tender on right), drain x1 w/ serosanguinous output. RLE: Skin graft with adequate take. Labs: Recent Labs 09/03/22 0200 WBC 8.2 HGB 9.8* HCT 29.4* NA 137 K 4.2 CL 98 BUN 20* CREATININE 0.45* CO2 28 GLUCOSE 85 ANIONGAP 11 CALCIUM 9.2 Micro: N/A Imaging/Studies: N/A Assessment: Theresa Hollis is a 52 y.o. female s/p oromandibular reconstruction with a fibula free flap 08/21. Recovering well overall. Continue to monitor neck incision. Plan: Q4h flap checks Dressings/Drains: Strip and record drain output. Allevyn off 09/04. RLE STSG QOD dressing changes, last changed 09/02. May start Aquaphor BID 09/04. Antibiotics: Unasyn x5d (complete) Diet: TPN. G-tube planned Activity: WBAT RLE. May wear boot as needed for comfort. DVT prophylaxis: SCD left leg, Lovenox Remainder of care per primary team Anabell Nelson MD Plastic Surgery Inpatient Team Pager #[phone] * Joey Reese, CONSERVATION PLANNER - 09/02/2022 9:26 PM EDT Respiratory Care Tracheostomy Note O2 Device: None (Room air) O2 Flow Rate (L/min): 40 L/min FiO2 (%): 21 % SpO2: 98 % Resp: 24 Airway Type: Shiley Size: Adult Trach: 4.0 Style: UN (Disposable) Cuff Pressure: Cuffless Securement: Foam Trach Ties Skin Integrity: WDL Capped: Yes Trach care: Performed Trach to Go Bag: Spare trach and equipment is in place. Assessment: Received Pt on R/A with Shiley 4.0 UN capped and secured with trach ties. Trach care performed without incident. All emergency and spare supplies at bedside. No events or complications t/o the night. Plan: Will continue to support Pt. * Catherine Morataya RN - 09/02/2022 4:30 PM EDT OUTCOME EVALUATION NOTE: OUTCOME SUMMARY: Pt A&Ox4, VSS, trach capped, RA. Strong, spontaneous cough, oral suctioning independently per pt. Flap CMS q4. Emergency airway equipment at bedside. PPN via PIV--phlebitis/pain/redness later in afternoon. Vascular access to bedside to assess L arm and assess for new PIV placement. Coordinated for PICC placement to continue PPN d/t unknown peg placement time. Pt very frustrated over access complications and unknown OR/IR time for peg. ENT notified and aware of situation. PLAN MOVING FORWARD: VS q4hrs Flap check q4hrs Peg placement INDIVIDUALIZED FALL PREVENTION INTERVENTIONS: Patient-specific fall risk factors per assessment: lines and wires Assistance: SBA, FWW Supervision: Eyes on, Arms reach, Hands on Surveillance: Bed locked in low position, call ramirez within reach, purposeful hourly rounding, clutter free environment, bed/chair alarm on Patient-specific fall prevention interventions for sensory deficits provided: N/A * Augie García - 09/02/2022 3:09 PM EDT Respiratory Care Tracheostomy Note O2 Device: None (Room air) O2 Flow Rate (L/min): 40 L/min FiO2 (%): 21 % SpO2: 99 % Resp: 20 Airway Type: Shiley Size: Adult Trach: 4.0 Style: UN (Disposable) Securement: Foam Trach Ties Skin Integrity: WDL Capped: Yes Trach care: Performed Trach to Go Bag: Spare trach and equipment is in place. Secretions: Small Thick Pale-yellow Assessment: Received pt this morning on RA w/ trach capped. No notable events today. Plan: Continue capping trials as tolerated. * Yue Arellano MD - 09/02/2022 8:50 AM EDT OTOLARYNGOLOGY - HEAD & NECK SURGERY DAILY PROGRESS NOTE Name: Theresa Hollis Age/Sex: 52 y.o. female Attending: Roberth Lee MD Hospital Day: 13 12 Days Post-Op Patient ID/Reason for Admission Theresa Hollis is a 52 y.o. 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 She underwent tracheostomy, neck exploration, mandible excision, and fibula free flap reconstruction 08/21 with ENT and PRS. Interval History - Patient expressed desire for G tube; states she had one in 2006 and it worked well for her. She does not believe she can meet her nutritional demands with PO intake alone; general surgery consultedand likely can place no earlier than 09/04. IR also consulted. - Remained capped - PPN running - AF, VSS - NA 130 (129), slowly uptrending. Vitals Last value 24hr Range Temperature: 35.8 ??C (96.4 ??F) Temp: [35.8 ??C (96.4 ??F)-37 ??C (98.6 ??F)] Heart Rate: 79 Heart Rate: [79] Blood Pressure: 108/70 BP: (106-123)/(59-79) Respiratory Rate: 16 Resp: [16-18] SpO2: 98 % SpO2: [96 %-99 %] Intake & Output Intake/Output Summary (Last 24 hours) at 09/02/2022 0850 Last data filed at 09/02/2022 0800 Gross per 24 hour Intake 2316.33 ml Output 25 ml Net 2291.33 ml Physical Exam General: NAD, non-ill appearing, resting comfortably in bed. Face: Symmetric without dysmorphic features. Eyes: EOMI, conjunctiva healthy. L periorbital edema. Ears: Auricles symmetric, no lesions Nose: Patent nares, grossly normal appearance Oral Cavity/Pharynx: Mucosa is pink, oropharynx symmetric. Mandibular suture lines intact without apparent dehiscence, flap is pink, warm, and well perfused. Scant granulation tissue anteriorly Neck: Soft, trachea midline. Tracheostomy tube secure in place with soft straps, capped. Generalized induration/erythema. Significant crusting along suture lines. Submental skin graft intact with some crusting present. Chest: Non-labored breathing, regular rate on RA Neuro: Alert & oriented, moving extremities x 4, communicating via writing and speech Labs Recent Labs 09/02/22 0028 09/01/22 0945 08/31/22 1625 08/31/22 1137 WBC 8.6 -- -- 8.8 HGB 9.4* -- -- 9.7* HCT 27.7* -- -- 29.3* PLATELET 591* -- -- 670* NA 130* 129* < > -- K 4.1 4.3 < > -- CL 96* 92* < > -- CO2 25 25 < > -- BUN 17 19* < > -- CREATININE 0.41* 0.42* < > -- GLUCOSE 112 95 < > -- CALCIUM 8.7 9.5 < > -- MAGNESIUM 1.02 1.00 < > -- PHOS 3.2 2.8 < > -- < > = values in this interval not displayed. Imaging None. ASSESSMENT & PLAN Theresa Hollis is a 52 y.o. female s/p neck exploration, tracheostomy, mandible excision, and fibula free flap reconstruction, 12 Days Post-Op. Theresa would like to pursue a G tube; we have engaged both general surgery and IR to discuss available timing. To remain NPO for now. Surgical/Head&Neck: Neck should remain in neutral position Trach suctioning and trach care per RT. No HTC if trach capped. Apply aquaphor to incisions and skin graft over submental region. OK for trach capping Neurologic: Pain controlled with lidoderm patch, oxycodone PRN, dilaudid PRN. Cardiovascular: PAMELA Pulmonary: Oxygenation on RA Gastrointestinal: Zofran PRN Genitourinary: Voiding spontaneously Musculoskeletal: PAMELA Fluids/Electrolytes: - Monitoring sodium, slowly uptrending. Nutrition: TPN Adult NPO diet (Give Meds) G tube pending Infectious Disease: WBC wnl, Unasyn x 5 days; Peridex Hematology: Hemoglobin wnl Endocrine: Home levothyroxine Consults: PRS, general surgery Lines: Patient Lines/Drains/Airways Status Active Tubes/Lines/Drains Name Placement date Placement time Site Days Peripheral IV Line - Single Lumen 08/30/222147 basilic vein (medial side of arm), left 22 gauge;1 in length 08/30/222147 -- 3 Closed/Suction Drain Right;Anterior Neck Bulb 15 Citizen Of [place] 08/21/22 194 Neck 12 Trach Airway 08/28/22 1616 08/28/22 1616 -- 5 Prophylaxis: Lovenox, SCD, activity per PRS Disposition: Floor status, Attempt Cardiopulmonary Resuscitation - Inpatient Discharge: Plan for d/c TBD; Needs trach supplies, suction, VNA; Follow-up ENT Yue Arellano MD, PGY4 09/02/22 8:50 AM ENT Team Pager: [phone] * Anabell Nelson MD - 09/02/2022 6:43 AM EDT Images from the original note were not included. Plastic Surgery Inpatient Progress Note (Team Pager #[phone] Date of surgery: 08/21/22 CC/Procedure(s): Oromandibular reconstruction with right fibula free flap, skin graft from R thigh to right leg and submental opening Surgeon: Luz Elena Subjective/IE: No acute event overnight. Patient reports doing well and has agreed for G-tube placement. Offers no other complaints. Pain well controlled. Objective: BP 123/65 (BP Location (NBP): Right arm, Patient Position: Sitting) Pulse 88 Temp 36.3 ??C (97.3 ??F) (Axillary) Resp 18 Ht 157.5 cm (5' 2) Wt 46 kg (101 lb 8 oz) SpO2 97% BMI 18.56 kg/m?? Intake/Output Summary (Last 24 hours) at 09/02/2022 0643 Last data filed at 09/02/2022 0528 Gross per 24 hour Intake 3514.67 ml Output 25 ml Net 3489.67 ml General: Resting comfortably in no acute distress. Neuro: Awake, alert, responds to questions appropriately. CV: Regular rate on pulsox Pulm: Non-labored breathing on RA, trach capped HEENT: Flap warm and well perfused with strong doppler signal, skin paddle euchromic with donor site, skin graft has some crusting present, inset incision intact, neck incision intact with shayna with improving erythema and induration, drain x1 w/ serosanguinous output. RLE: Skin graft with adequate take. Labs: Recent Labs 09/02/22 0028 WBC 8.6 HGB 9.4* HCT 27.7* NA 130* K 4.1 CL 96* BUN 17 CREATININE 0.41* CO2 25 GLUCOSE 112 ANIONGAP 9 CALCIUM 8.7 Micro: N/A Imaging/Studies: N/A Assessment: Theresa Hollis is a 52 y.o. female s/p oromandibular reconstruction with a fibula free flap 08/21. Recovering well overall. Plan: Q4h flap checks Dressings/Drains: Strip and record drain output. Allevyn off 09/04. RLE STSG QOD dressing changes, last changed 09/02. May start Aquaphor BID 09/04. Antibiotics: Unasyn x5d (complete) Diet: G tube planned Activity: WBAT RLE. May wear boot as needed for comfort. DVT prophylaxis: SCD left leg, lovenox Remainder of care per primary team Anabell Nelson MD Plastic Surgery Inpatient Team Pager #[phone] * Tanja Wilson, PT - 09/01/2022 4:37 PM EDT Physical Therapy Intervention Note Treatment Number PT: 4 Patient profile: Theresa Hollis is a 52 y.o. 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 She underwent tracheostomy, neck exploration, mandible excision, and fibula free flap reconstruction 08/21 with ENT and PRS. Interval Events: Per ENT note 09/01/22: - Swallowing slowly improving - Patient expressed desire for G tube; states she had one in 2006 and it worked well for her. She does not believe she can meet her nutritional demands with PO intake alone; general surgery consulted - Remained capped - Feels less anxious this AM - PPN running - AF, VSS Social History: Patient lives with Harinder in a single level home [place] [facility]. Has ~ 15 IRENE without rails. Normallyindependent without device. 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 They have two dogs - basset hound and corgi mix Precautions/Special Considerations: Full code, Neck should remain in neutral position, tracheostomy Boot for comfort only. May start to liberalize weight bearing. No longer needs to be TTWB. Mobility and Positioning Recommendations: Mobilize pt with supervision with FWW verses SPC. Please encourage up to chair for meal times as able. Walker boot/aircast when OOB; multpodus (blue boot) to RLE when in bed/at rest Bathroom for toileting Subjective: ???I'd like to start with the walker and boot. Objective: Pt seen for physical therapy treatment today and presented as follows: Pain: Tolerable throughout Vital Signs: vss Bed Mobility: NT, already OOB Transfers: Sit to Stand: supervision with FWW. Pt and donned the aircast boot without assistance from therapist Stand to Sit: supervision Gait: Distance: 75' + 75' Device Used: FWW then SPC Level of Assist: supervision Gait Comments: initially a step-to, but quickly transitioned to step-thru Stairs: Performed 6 then 12 with single railing and SPC, CGA with a step to pattern. Used the railing whiledescending, able to perform using the cane only. Balance: Sitting Static: good Sitting Dynamic: good - independent at EOB Standing Static: good with single UE support Standing Dynamic / Gait: fair/good with FWW Self Care: N/A Education: patient educated on TDWB, use of walker boot, use of walker, ambulation, use of restroom and plan of care, with good understanding/demonstration. Patient status, treatment, and mobility recommendations discussed with nursing. Pt left in bedside recliner chair, with all needs met, with call ramirez in reach, and with family at the bedside following visit. Team Communication: communication with nursing staff pre/post session regarding readiness and response to therapy intervention. Assessment: Theresa Hollis was seen today for physical therapy intervention. Pt presents to physical therapy without c/o pain and willing to participate. Today's session focusing on progressive mobility training. Pt now WBAT, yet cautiously opted to mobilize wearing the boot. Pt progressed to using a cane and close supervision. Practiced on stairs, but she felt a little weak as she had been NPOall day. Anticipate pt will achieve physical therapy goals next session. Discharge Recommendations: Based on the current findings, Anticipated Discharge Disposition (PT): home with supervision when medically ready for hospital discharge. Discharge recommendation is based on the patient's current physical impairments, prior functional status, potential to return to prior level of function, patient motivation, reported home support, potential for functional gains, current level of endurance, reported home environment and anticipated trajectory of progress and may change based on patient progress during this hospitalization. Consult Recommendations: No other consults recommended at this time. Equipment Needs: Anticipated Equipment Needs at Discharge (PT): to be determined Transportation Needs: Car Goals: Goals ongoing as of 09/01/22 unless otherwise noted Goals: To be achieved by 09/07/22: Pt. to demonstrate knowledge of safety limitations and precautions Pt. to demonstrate understanding of appropriate exercises. Pt. to perform supine to/from sitting EOB with modified independence MET 08/24 Pt. to perform sit to/from stand transfers with supervision and LRAD Pt. to ambulate 150 feet with supervision and least restrictive assistive device Pt. to ambulate up/down at least 3 step/stairs using least restrictive assistive device w/ CGA Plan: Therapy Frequency (PT): 2-4 times/wk for therapy as outlined in initial evaluation. Patient/family understand and agree with plan as stated above. Total Minutes, Physical Therapy: 27 ([phone]) Billing Code: HELLEN KEEN PTA Pager: [phone] Physical Therapy Inpatient Rehabilitation Department * Azul Mason, RD - 09/01/2022 3:00 PM EDT Images from the original note were not included. Nutrition Progress Note Theresa Hollis is a 52 y.o. female admitted post op mandible resection, prosthesis, skin graft, and new tracheostomy. 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 Reason for Assessment: Follow-up/PPN Nutrition Recommendations: PPN to continue at 1800 at 100 ml/hr to provide 990 calories, from 120 grams of amino acid and 150 grams of dextrose in a 1/4 NS solution of 2.4 L. --today increased phos by 4 mmol - PPN will not contain lipids d/t patients peanut allergy. If re-starting enteral nutrition, Suggest bolus feeds: 300 ml of Complete Standard 1.4, 4 times per day plus 2 scoop of protein powder daily. Order pended Flush with 60 ml water before and after each feed to maintain patency and for hydration. Suggest 100 ml free water BID Compleat Standard 1.4 Total Volume Per Day: 1200 mL Scoops of Protein Powder: 2 Calories per Day: 1730 Protein per Day: 98 g Free Water mL per Day: 981 % RDI: 120 % I was able to discuss plan with provider Cheryl Pacheco MD #[id number] . Current Nutrition Regimen: Active Orders Diet Puree diet Frequency: Effective Now Number of Occurrences: Until Specified TPN Medication Recent History (Show up to 3 orders; newest on the left. Changes between the two most recent orders are indicated.) Start date and time 09/01/2022 1800 08/31/2022 1800 TPN Adult [[id number]] TPN Adult [[id number]] Order Status Active Last Dose in Progress Last Admin New Bag at 08/31/2022 1729 by Catherine Morataya, RN Frequency Continuous (1800) Continuous (1800) Additives adult multivitamin 10 mL 10 mL adult trace elements Zn-Cu-Mn-Se (Tralement) 1 mL 1 mL Electrolytes potassium phosphate 34 mmol 30 mmol potassium chloride 20 mEq 25 mEq sodium chloride 90 mEq 90 mEq magnesium sulfate 16 mEq 16 mEq Dextrose dextrose 70% 150 g 150 g Amino Acids amino acid 15% no.5 (ClinisoL) 120 g 100 g QS Base sterile water 1,326.93 mL 1,459.06 mL Energy Contribution Proteins 480 kcal 400 kcal Dextrose 510.03 kcal 510.03 kcal Lipids -- -- Total 990.03 kcal 910.03 kcal Electrolyte Ion Calculated Amount Sodium 90 mEq 90 mEq Potassium 69.87 mEq 69 mEq Calcium -- -- Magnesium 16 mEq 16 mEq Aluminum -- -- Phosphate 34 mmol 30 mmol Chloride 110 mEq 115 mEq Acetate 101.6 mEq 84.67 mEq Chloride: Acetate Ratio 1.085 1.36 Trace Elements Copper 0.3 mg 0.3 mg Manganese 55 mcg 55 mcg Selenium 60 mcg 60 mcg Zinc 3 mg 3 mg Other Total Amino Acid 120 g 100 g Total Amino Acid/kg 2.61 g/kg 2.17 g/kg Glucose Infusion Rate 2.26 mg/kg/min 2.26 mg/kg/min Osmolarity 959.08 875.02 Volume 2,400 mL 2,400 mL Rate 100 mL/hr 100 mL/hr Dosing Weight 46 kg 46 kg Infusion Site Peripheral Peripheral Total Multi-vitamins 10 mL 10 mL Assessment: Lab Results Component Value Date NA 129 (L) 09/01/2022 K 4.3 09/01/2022 CL 92 (L) 09/01/2022 CO2 25 09/01/2022 BUN 19 (H) 09/01/2022 CREATININE 0.42 (L) 09/01/2022 ESTGFR 118 09/01/2022 MAGNESIUM 1.00 09/01/2022 CALCIUM 9.5 09/01/2022 PHOS 2.8 09/01/2022 [id number] 213 (L) 08/22/2022 No results found for: POCGLU Patient Lines/Drains/Airways Status Active Nutritional LDAs Name Placement date Placement time Site Days Peripheral IV Line - Single Lumen 08/30/222147 basilic vein (medial side of arm), left 22 gauge;1 in length 08/30/222147 -- 2 Closed/Suction Drain Right;Anterior Neck Bulb 15 Citizen Of [place] 08/21/22 1947 Neck 11 Physical Findings Skin: surgical incisions Oxygen Therapy / Airway Device: None (Room air) Shift Pressure Injury Prevention Occiput: No Injury Thoracic Spine: No Injury Sacral: No Injury Ischial - left: No Injury Ischial - right: No Injury Heel - left: No Injury Heel - right: No Injury Elbow - left: No Injury Elbow - right: No Injury Device Sites: O2 sat monitor, IV sites Other Sites: idb Last Bowel Movement: 08/31/22 Intake/Output Summary (Last 24 hours) at 09/01/2022 1500 Last data filed at 09/01/2022 0800 Gross per 24 hour Intake 1451.67 ml Output 0 ml Net 1451.67 ml Relevant medications: Continuous TPN Adult TPN Adult 100 mL/hr at 08/31/22 1729 Scheduled melatonin 6 mg Oral Daily after dinner levothyroxine 100 mcg Oral Daily cyanocobalamin (Vitamin B-12) 1,000 mcg Oral Nightly enoxaparin 30 mg Subcutaneous Nightly pantothenic Ac-Min Oil-Pet,Hyd 1 each Topical (Top) BID lidocaine 2 patch Transdermal Q24H PRN oxyCODONE OR oxyCODONE, polyethylene glycoL (MIRALAX) oral powder, LORazepam, diphenhydrAMINE, HYDROmorphone, diazePAM, cyclobenzaprine, magnesium sulfate OR magnesium sulfate, sodium chloride 0.9 % (flush), lidocaine, ondansetron, prochlorperazine Anthropometrics: Admit Weight: 43.91 kg Estimated body mass index is 18.56 kg/m?? as calculated from the following: Height as of this encounter: 157.5 cm (5' 2). Weight as of this encounter: 46 kg (101 lb 8 oz). [place] Body Weight (IBW) (kg): 50 Wt Readings from Last 10 Encounters: 08/28/22 46 kg (101 lb 8 oz) 06/01/22 44.3 kg (97 lb 9.6 oz) 03/16/22 44.5 kg (98 lb 3.2 oz) 10/18/21 45.4 kg (100 lb) 10/05/21 46.1 kg (101 lb 9.6 oz) 09/05/21 46.1 kg (101 lb 11.2 oz) 08/18/21 43.1 kg (95 lb) 07/04/21 43.1 kg (95 lb) 03/07/21 43.1 kg (95 lb) 11/01/20 45.3 kg (99 lb 12.8 oz) Patient Vitals for the past 168 hrs: Weight 08/28/22 1500 46 kg (101 lb 8 oz) Weight Source: Bed Estimated / Assessed Needs: Kcal / K - 1635 Kcal (30 Kcal/Kg - 35 Kcal/Kg) Estimated Protein Needs: 70.05 - 93 g (1.5 g/Kg - 2.0 g/Kg) Nutrition intake and intake history / interview: 09/01: PPN to continue; AA increased to 120 grams. TF recs as above once PEG is placed. Hyponatremianoted; unable ot increase Na concentration in PPN, but total volume can be reduced however this will diminish nutrition provisions. 08/31: Per team, NGT was removed yesterday to see if it was interfering with her swallow. Pt was then scoped and noted to have some cord paresis and laryngeal penetration and pooling of secretions. Plan is to give patient a day or two to let her work on taking more PO and providing PPN for now. If no improvement will move toward peg. Discussed with pharmacy that both intralipid and smof lipids have a hypersensitivity to peanut allergy listed so will leave lipids out of PPN. 08/28: Discharge pended for Sun/ this week. Unsure if pt will be going home on TF, pending swallow attempt tomorrow that will determine if pt will needs a PEG or not. Will preemptively transitionto Complete 1.4 (standard formula) that pt will go home on if TF is needed. 08/25/22: Follow up for pt w/ Tfs. Due to bed transfer, pt did not receive bolus feeds yesterday as formula was not available- this was corrected this morning. Pt has concern of soy allergy which results in increased secretions; discussed the very small amount of soy oil in current formula. Discussedavailability of Compleat 1.4 but it has lower protein content- pt prefers to stay w/ current formula. Reviewed calorie provisions and suggest increasing to 35 kcal/kg- pt in agreement and also requests free water in an effort to thin secretions.Unclear of nutrition plan in moving towards discharge,if able to adv diet, pt has c/o many food intolerances; ( seafood, tomatoes , etc) if going home onTfs would consider Compleat 1.4 250 ml bolus 4X/day to provide 1500 kcal & 100 g protein. 08/24: Pt seen w/ continuous TF infusing at goal rate of 47 mL/hr. Pt denies issues w/ tolerance. Bolus feeding recs as requested per team above. Will monitor K on labs tomorrow and switch TF formula as needed to increase K+ provision. 08/22: Consulted for TEN recommendations. Do not see enteral access at this time in the [facility]. Nutrition Focused Physical Exam: Not performed Malnutrition Diagnosis: Not enough data to assess (Fransisca, CHRIS J Parenteral Enteral Nutr. 2011; 36(3): 273-83) Nutrition to continue to follow up while inpatient AZUL MASON RD * Toño Pacheco MD - 09/01/2022 9:29 AM EDT OTOLARYNGOLOGY - HEAD & NECK SURGERY DAILY PROGRESS NOTE Name: Theresa Hollis Age/Sex: 52 y.o. female Attending: Roberth Lee MD Hospital Day: 12 11 Days Post-Op Patient ID/Reason for Admission Theresa Hollis is a 52 y.o. 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 She underwent tracheostomy, neck exploration, mandible excision, and fibula free flap reconstruction 08/21 with ENT and PRS. Interval History - Swallowing slowly improving - Patient expressed desire for G tube; states she had one in 2006 and it worked well for her. She does not believe she can meet her nutritional demands with PO intake alone; general surgery consulted - Remained capped - Feels less anxious this AM - PPN running - AF, VSS Vitals Last value 24hr Range Temperature: 36.3 ??C (97.3 ??F) Temp: [35.8 ??C (96.4 ??F)-36.8 ??C (98.2 ??F)] Heart Rate: 88 Heart Rate: -- Blood Pressure: 108/70 BP: (104-123)/(68-74) Respiratory Rate: 16 Resp: [13-16] SpO2: 98 % SpO2: [96 %-99 %] Intake & Output Intake/Output Summary (Last 24 hours) at 09/01/2022 0930 Last data filed at 09/01/2022 0800 Gross per 24 hour Intake 1451.67 ml Output 0 ml Net 1451.67 ml Physical Exam General: NAD, non-ill appearing, resting comfortably in bed. Face: Symmetric without dysmorphic features. Eyes: EOMI, conjunctiva healthy. L periorbital edema. Ears: Auricles symmetric, no lesions Nose: Patent nares, grossly normal appearance Oral Cavity/Pharynx: Mucosa is pink, oropharynx symmetric. Mandibular suture lines intact without apparent dehiscence, flap is pink, warm, and well perfused. Scant granulation tissue anteriorly Neck: Soft, trachea midline. Tracheostomy tube secure in place with soft straps, capped. Generalized induration/erythema. Significant crusting along suture lines. Submental skin with a small area of skin breakdown. Chest: Non-labored breathing, regular rate on RA Neuro: Alert & oriented, moving extremities x 4, communicating via writing and speech Labs Recent Labs 08/31/22 1625 08/31/22 1137 08/31/22 0034 WBC -- 8.8 -- HGB -- 9.7* -- HCT -- 29.3* -- PLATELET -- 670* -- NA 127* -- 128* K 4.3 -- 4.5 CL 90* -- 91* CO2 24 -- 26 BUN 20* -- 18 CREATININE 0.41* -- 0.39* GLUCOSE 106 -- 112 CALCIUM 9.4 -- 9.4 MAGNESIUM 0.95 -- 0.96 PHOS 3.5 -- 3.7 Imaging None. ASSESSMENT & PLAN Theresa Hollis is a 52 y.o. female s/p neck exploration, tracheostomy, mandible excision, and fibula free flap reconstruction, 11 Days Post-Op. Theresa would like to pursue a G tube; we have engaged both general surgery and IR to discuss available timing. To remain NPO for now. Surgical/Head&Neck: Neck should remain in neutral position Trach suctioning and trach care per RT. No HTC if trach capped. Apply aquaphor to incisions OK for trach capping Wound care consult for neck skin. Neurologic: Pain controlled with lidoderm patch, oxycodone PRN, dilaudid PRN. Cardiovascular: PAMELA Pulmonary: Oxygenation on RA Gastrointestinal: Zofran PRN Genitourinary: Voiding spontaneously Musculoskeletal: PAMELA Fluids/Electrolytes: - Nutrition: TPN Adult NPO diet (Give Meds) G tube pending Infectious Disease: WBC wnl, Unasyn x 5 days; Peridex Hematology: Hemoglobin wnl Endocrine: Home levothyroxine Consults: PRS, general surgery Lines: Patient Lines/Drains/Airways Status Active Tubes/Lines/Drains Name Placement date Placement time Site Days Peripheral IV Line - Single Lumen 08/30/222147 basilic vein (medial side of arm), left 22 gauge;1 in length 08/30/222147 -- 2 Closed/Suction Drain Right;Anterior Neck Bulb 15 Citizen Of [place] 08/21/22 1947 Neck 11 Trach Airway 08/28/22 1616 08/28/22 161 -- 4 Prophylaxis: Lovenox, SCD, activity per PRS Disposition: Floor status, Attempt Cardiopulmonary Resuscitation - Inpatient Discharge: Plan for d/c TBD; Needs trach supplies, suction, VNA; Follow-up ENT Toño Pacheco MD, PGY1 09/01/22 9:30 AM ENT Team Pager: [phone] * Jazmyn Fletcher, INFORMATION DEVELOPER - 09/01/2022 7:43 AM EDT Speech-Language Pathology Consult note: Total Treatment Time: 0 min. No charge Total Timed Code Treatment: 0 min. Subjective: Chart reviewed this AM 0730 Pt made NPO by team for PEG placement on 09/01/22. Per secure chat by ENT Team and RN notes, FEES on hold as of today. INFORMATION DEVELOPER recommends to consider FEES if Pt here till 09/04/22 - to evaluate swallow function and possiblePO as tolerated or with by swallow exercises. Recommend OP INFORMATION DEVELOPER visit to further evaluate Pt's swallow function and provide therapy as needed. INFORMATION DEVELOPER will continue to follow throughout the day as medical status permits. Please page me with questions or concerns. Thank you! Jazmyn Fletcher, MS, CFY-INFORMATION DEVELOPER Inpatient Rehabilitation Medicine Pager #[phone] * Akhil Martinez PA - 09/01/2022 6:54 AM EDT Plastic Surgery Inpatient Progress Note (Team Pager #[phone] Date of surgery: 08/21/22 CC/Procedure(s): Oromandibular reconstruction with right fibula free flap, skin graft from R thigh to right leg and submental opening Surgeon: Luz Elena Subjective/IE: LASHON, patient expressed to ENT yesterday that she would like a G tube as PO intake isbecoming challenging and stressful for her. Plan is now for G tube with Gen Surg. Objective: BP 110/72 (BP Location (NBP): Right arm, Patient Position: Lying) Pulse 88 Temp 36.8 ??C (98.2 ??F) (Axillary) Resp 13 Ht 157.5 cm (5' 2) Wt 46 kg (101 lb 8 oz) SpO2 96% BMI 18.56 kg/m?? Intake/Output Summary (Last 24 hours) at 09/01/2022 0654 Last data filed at 09/01/2022 0400 Gross per 24 hour Intake 532 ml Output 0 ml Net 532 ml General: Resting comfortably in no acute distress. Neuro: Awake, alert, responds to questions appropriately. CV: Regular rate on pulsox Pulm: non- labored breathing on RA, trach capped HEENT: Flap warm and well perfused with strong doppler signal, skin paddle euchromic with donor site, skin graft has some crusting present, inset incision intact, neck incision intact with shayna with improving erythema and induration, drain x1 w/ serosanguinous output. RLE: Dressing in place and clean. Labs: Recent Labs 08/31/22 1625 08/31/22 1137 WBC -- 8.8 HGB -- 9.7* HCT -- 29.3* NA 127* -- K 4.3 -- CL 90* -- BUN 20* -- CREATININE 0.41* -- CO2 24 -- GLUCOSE 106 -- ANIONGAP 13 -- CALCIUM 9.4 -- Micro: N/A Imaging/Studies: N/A Assessment: Theresa Hollis is a 52 y.o. female s/p oromandibular reconstruction with a fibula free flap 08/21. Recovering well overall. Plan: Q4h flap checks Dressings/Drains: Strip and record drain output. Allevyn off 09/04. RLE STSG QOD dressing changes, next change 09/02. Antibiotics: Unasyn x5d (complete) Diet: G tube planned with Gen Surg Activity: WBAT RLE. May wear boot as needed for comfort. DVT prophylaxis: SCD left leg, lovenox Remainder of care per primary team CALLY Owens Plastic Surgery Inpatient Team Pager #[phone] * Hollie Vang RN - 08/31/2022 4:40 PM EDTSummary: DISCHARGE PLANNING Per team, pt is not MR for d/c at this time r/t continued trach and DHT need. Pt will most likely be able to return home with VNA and may have continued trach and PEG needs. Pt and will need teaching. CM will continue to monitor and assist with d/c planning as needed. Hollie Vang MSN-Ed, RN ACM physical chemistry teacher Office of Care Management Pager #[phone] * Kimberly Jones RCP - 08/31/2022 4:12 PM EDT Respiratory Care Tracheostomy Note O2 Device: None (Room air) SpO2: 96 % Resp: 15 Airway Type: Shiley Size: Adult Trach: 4.0 Style: UN (Disposable) Securement: Foam Trach Ties Skin Integrity: Exception: Red Capped: Yes Trach care: Performed Trach to Go Bag: Spare trach and equipment is in place. Secretions: Small Thick and Thin Pale-yellow Assessment: Theresa's trach remains capped. She is on RA. She has a great cough and using the Yankeurfor oral suction. Plan: continue with capping. ENT to assess readiness for decannulation * Jazmyn Fletcher, INFORMATION DEVELOPER - 08/31/2022 11:00 AM EDT Speech Therapy Note Patient Profile: Theresa Hollis is a 52 y.o. female admitted on 08/21/2022 history of [id number] SCCaof the left lateral tongue s/p hemiglossectomy, left neck dissection 1-5, skin graft, allograft (10/31/06) followed by adjuvant chemo XRT now presenting with ORN of the mandible. She underwent tracheostomy, neck exploration, mandible excision, and fibula free flap reconstruction 08/21 with ENT and PRS. Per ENT notes. Trach in place by ENT, Pt tolerating capping as of now. Team plans to decannulated today. INFORMATION DEVELOPER therapy summary: INFORMATION DEVELOPER following since 08/29/2022 for her swallow function w/ ENT's recommendation Not to advance beyond purees Interval History: 08/30/2022: DHT removed. Pt has TPN. Per ENT notes for Procedure - Flexible Fiberoptic Laryngoscopy: Findings: Nasal Cavity: Normal appearing mucosa, no obstructions or lesions noted. Nasopharynx: No lesions or masses noted. Oropharynx: Base of tongue/vallecula symmetric with normal appearing lingual tonsillar tissue. No masses, ulcerations or mucosal lesions noted. Larynx: Epiglottis is short and thickened, fibrotic appearing. Arytenoids are moderateley edematous, L>R. R cord with full motion, L cord with minimal abduction. Apparent laryngeal penetration of thick mucoid secretions. Able to clear secretions with cough when prompted, but impaired cough reflex. Hypopharynx: Piriform sinuses are clear bilaterally, without evidence of masses or lesions. Significant pooling of thick secretions with laryngeal penetration. Subjective: Pt seen in morning when she was willing to work with INFORMATION DEVELOPER, at bedside this wholesession. Communication done verbally and with use of white board. Pt appears more excited and willing to try vanilla pudding. Due to allergies Pt has limited PO options. Objective: Pt seen for dysphagia management and demonstrated the following: Pain: None reported today Respiratory Status: Room air SpO2-97-98 HR 110-118 Current Diet: Puree diet & TPN Adult Feeding / Oral Care Status: Pt is independent Cognitive-Linguistic Status: Fully Conscious: Awake, alert, oriented x3, comprehends spoken or written words, follows commands No cognitive-linguistic deficits noted. Command Following: Follows single step commands, Requires increased time to complete Positioning: Pt sitting in chair Oral / Laryngeal Mechanism Clinical Assessment: No remarkable change from yesterday. Labial movements improved - improved lip seal noted due to reduced buccal swelling. No dry secretions noted this AM. Pt had oral care done in morning. Bolus Presentation(s): Ice chips - 3-5mm size x5 trials. Thin liquid 1ml by tsp Puree Pills crushed with pudding. Vanilla pudding 3mm by tsp Oral Preparatory Phase: Good hand mouth coordination, Pt attempts to maintain better lip seal by pressing lips together. No buccal swelling noted. Oral stasis noted with pudding which cleared with ice chips. Pharyngeal Phase: Overt cough noted with each bite suspecting silent aspiration at this time given FEES findings, no change in voice quality noted with PO intake. Pt also tolerated crushed pills withpudding - and was willing to keep working on her PO intake as INFORMATION DEVELOPER left. Esophageal Phase: Appears to be WFL, No overt clinical s/s of esophageal phase dysphagia noted during this evaluation. Compensatory Techniques: Following is effective for airway protection Small ice chips 3-5mm size Small sips of water1-3ml only. Pudding 1-3ml to advance as tolerated Use thin liquid wash to wash pudding in mouth Place bolus on right side only. Education: Patient, Family educated on results and recommendations, and verbalized understanding. Education provided regarding overall swallow mechanism and imp of VF function in airway protection - with printed anatomy handouts. Pt educated to hold breath and swallow followed by cough& swallow to clear penetrated/aspirated material after every bite. Patient status, treatment and swallow recommendations were discussed with nursing. Secure chat sent to team regarding results and recommendations Also planing to do FEES to rule out aspiration with PO intake. Assessment: Pt was seen today for a follow-up INFORMATION DEVELOPER visit targeting her swallow function. present at bedside. Pt appears more excited and is willing to try advance diet to purees as recommendedby team. Oral laryngeal mechanism reveals mildly improved lingual and labial function, moist mucosa. Pt continues to tolerate small 3-5mm size ice chips placed on right side of oral cavity and pudding 1-3mm by tsp along with 1-3mm thin liquids. Overt cough noted after every swallow suspecting silent aspiration due to limited abduction in left VF. INFORMATION DEVELOPER continues to recommend puree and thin liquids and ice chips as tolerated with gradual advancement throughout the day. Place food on right side on mouth to avoid anterior loss from mouth during POintake. Follow strategy mentioned above mainly hold breath and swallow followed by cough& swallow to clear penetrated/aspirated material after every bite. INFORMATION DEVELOPER recommends FEES to observe Pt's swallow function and rule out silent aspiration/penetration with PO intake. Plans to conduct this study when ENT scopes Pt next time - possibly on 09/01/22. Pt would benefit from skilled INFORMATION DEVELOPER services to maximize swallow function to achieve therapy goals and to address limitations as noted above. Diagnosis: Severe oropharyngeal dysphagia 2/2 CA and mandibular # Recommendations: Diet: Puree/thin liquids. FOLLOW ALLERGY LIST FOR DIET. PLEASE CONTACT PT FOR THE ENTIRE LIST. PO medications: CRUSHED IN VANILLA PUDDING (Pt ALLERGIC TO APPLE SAUCE) FOOD ITEMS PREFERRED BY Pt ADHERING TO HER ALLERGIES. SORBET CREAM OF WHEAT VANILLA PUDDING MASHED POTATOE WITH BEEF GRAVY. Aspiration precautions: Upright position during meals and for at least 30 mins following Small sips and bites while eating Check oral cavity frequently for pocketing Tsp amount sips only NO straws Place food on right side on mouth during PO intake. Pt will benefit from continued INFORMATION DEVELOPER services while hospitalized Speech Therapy Goals: ONGOING unless otherwise stated Pt will tolerate least restrictive diet without evidence of dysphagia / aspiration. Pt / caregiver will be independent with aspiration precautions, diet modifications, and safe swallowing strategies. Pt will participate in FEES to evaluate swallow function and rule out silent aspiration. Plan: Therapy Frequency (INFORMATION DEVELOPER Eval): 3-5 times/wk Pt./family are in agreement with treatment plan. Total Minutes (Speech Language Pathology): 22 Thank you for this consult with this patient. Please feel free to page me with any questions or concerns. Jazmyn Fletcher, MS, INFORMATION DEVELOPER-CF Pager #[phone] Speech Language Pathology Inpatient Rehabilitation Medicine * Derrick Abel, RD - 08/31/2022 10:58 AM EDT Images from the original note were not included. Nutrition Progress Note Theresa Hollis is a 52 y.o. female admitted post op mandible resection, prosthesis, skin graft, and new tracheostomy. 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 Reason for Assessment: Follow-up Nutrition Recommendations: Pt received 1 L of base PPN with electrolytes starting overnight last night. Will start custom PPN tonight at 1800 at 100 ml/hr to provide 910 calories, from 100 grams of aminoacid and 150 grams of dextrose in a 1/4 NS solution of 2.4 L. - PPN will not contain lipids d/t patients peanut allergy. If res-starting enteral nutrition, Suggest bolus feeds: 300 ml of Complete Standard 1.4, 4 times per day plus 2 scoop of protein powder daily. Order pended Flush with 60 ml water before and after each feed to maintain patency and for hydration. Suggest 100 ml free water BID Compleat Standard 1.4 Total Volume Per Day: 1200 mL Scoops of Protein Powder: 2 Calories per Day: 1730 Protein per Day: 98 g Free Water mL per Day: 981 % RDI: 120 % I was able to discuss plan with provider Cheryl Pacheco MD #[id number] . Current Nutrition Regimen: Active Orders Diet Puree diet Frequency: Effective Now Number of Occurrences: Until Specified Order Comments: OK for ice chips as well TPN Medication Recent History (Show up to 3 orders; newest on the left.) Start date and time 08/31/2022 1800 TPN Adult [[id number]] Order Status Active Frequency Continuous (1800) Additives adult multivitamin 10 mL adult trace elements Zn-Cu-Mn-Se (Tralement) 1 mL Electrolytes potassium phosphate 30 mmol potassium chloride 25 mEq sodium chloride 90 mEq magnesium sulfate 16 mEq Dextrose dextrose 70% 150 g Amino Acids amino acid 15% no.5 (ClinisoL) 100 g QS Base sterile water 1,459.06 mL Energy Contribution Proteins 400 kcal Dextrose 510.03 kcal Lipids -- Total 910.03 kcal Electrolyte Ion Calculated Amount Sodium 90 mEq Potassium 69 mEq Calcium -- Magnesium 16 mEq Aluminum -- Phosphate 30 mmol Chloride 115 mEq Acetate 84.67 mEq Chloride: Acetate Ratio 1.36 Trace Elements Copper 0.3 mg Manganese 55 mcg Selenium 60 mcg Zinc 3 mg Other Total Amino Acid 100 g Total Amino Acid/kg 2.17 g/kg Glucose Infusion Rate 2.26 mg/kg/min Osmolarity 875.02 Volume 2,400 mL Rate 100 mL/hr Dosing Weight 46 kg Infusion Site Peripheral Total Multi-vitamins 10 mL Assessment: Lab Results Component Value Date NA 128 (L) 08/31/2022 K 4.5 08/31/2022 CL 91 (L) 08/31/2022 CO2 26 08/31/2022 BUN 18 08/31/2022 CREATININE 0.39 (L) 08/31/2022 ESTGFR 120 08/31/2022 MAGNESIUM 0.96 08/31/2022 CALCIUM 9.4 08/31/2022 PHOS 3.7 08/31/2022 [id number] 213 (L) 08/22/2022 No results found for: POCGLU Patient Lines/Drains/Airways Status Active Nutritional LDAs Name Placement date Placement time Site Days Peripheral IV Line - Single Lumen 08/30/222147 basilic vein (medial side of arm), left 22 gauge;1 in length 08/30/222147 -- 1 Closed/Suction Drain Right;Anterior Neck Bulb 15 Citizen Of [place] 08/21/22 1947 Neck 10 Physical Findings Skin: surgical incisions Oxygen Therapy / Airway Device: None (Room air) Shift Pressure Injury Prevention Occiput: No Injury Thoracic Spine: No Injury Sacral: No Injury Ischial - left: No Injury Ischial - right: No Injury Heel - left: No Injury Heel - right: No Injury Elbow - left: No Injury Elbow - right: No Injury Device Sites: O2 sat monitor, IV sites (trach) Other Sites: idb Last Bowel Movement: 08/30/22 Intake/Output Summary (Last 24 hours) at 08/31/2022 1058 Last data filed at 08/31/2022 0620 Gross per 24 hour Intake 70 ml Output 10 ml Net 60 ml Relevant medications: Continuous TPN Adult amino acid 4.25% in dextrose 5% with electrolytes (Peripheral TPN) 42 mL/hr at 08/30/22 2155 Scheduled melatonin 6 mg Oral Daily after dinner levothyroxine 100 mcg Oral Daily cyanocobalamin (Vitamin B-12) 1,000 mcg Oral Nightly enoxaparin 30 mg Subcutaneous Nightly pantothenic Ac-Min Oil-Pet,Hyd 1 each Topical (Top) BID lidocaine 2 patch Transdermal Q24H PRN oxyCODONE OR oxyCODONE, polyethylene glycoL (MIRALAX) oral powder, LORazepam, diphenhydrAMINE, HYDROmorphone, diazePAM, cyclobenzaprine, magnesium sulfate OR magnesium sulfate, sodium chloride 0.9 % (flush), lidocaine, ondansetron, prochlorperazine Anthropometrics: Admit Weight: 43.91 kg Estimated body mass index is 18.56 kg/m?? as calculated from the following: Height as of this encounter: 157.5 cm (5' 2). Weight as of this encounter: 46 kg (101 lb 8 oz). [place] Body Weight (IBW) (kg): 50 Wt Readings from Last 10 Encounters: 08/28/22 46 kg (101 lb 8 oz) 06/01/22 44.3 kg (97 lb 9.6 oz) 03/16/22 44.5 kg (98 lb 3.2 oz) 10/18/21 45.4 kg (100 lb) 10/05/21 46.1 kg (101 lb 9.6 oz) 09/05/21 46.1 kg (101 lb 11.2 oz) 08/18/21 43.1 kg (95 lb) 07/04/21 43.1 kg (95 lb) 03/07/21 43.1 kg (95 lb) 11/01/20 45.3 kg (99 lb 12.8 oz) Patient Vitals for the past 168 hrs: Weight 08/28/22 1500 46 kg (101 lb 8 oz) Weight Source: Bed Estimated / Assessed Needs: Kcal / K - 1635 Kcal (30 Kcal/Kg - 35 Kcal/Kg) Estimated Protein Needs: 70.05 - 93 g (1.5 g/Kg - 2.0 g/Kg) Nutrition intake and intake history / interview: 08/31: Per team, NGT was removed yesterday to see if it was interfering with her swallow. Pt was then scoped and noted to have some cord paresis and laryngeal penetration and pooling of secretions. Plan is to give patient a day or two to let her work on taking more PO and providing PPN for now. If no improvement will move toward peg. Discussed with pharmacy that both intralipid and smof lipids have a hypersensitivity to peanut allergy listed so will leave lipids out of PPN. 08/28: Discharge pended for Sun/ this week. Unsure if pt will be going home on TF, pending swallow attempt tomorrow that will determine if pt will needs a PEG or not. Will preemptively transitionto Complete 1.4 (standard formula) that pt will go home on if TF is needed. 08/25/22: Follow up for pt w/ Tfs. Due to bed transfer, pt did not receive bolus feeds yesterday as formula was not available- this was corrected this morning. Pt has concern of soy allergy which results in increased secretions; discussed the very small amount of soy oil in current formula. Discussedavailability of Compleat 1.4 but it has lower protein content- pt prefers to stay w/ current formula. Reviewed calorie provisions and suggest increasing to 35 kcal/kg- pt in agreement and also requests free water in an effort to thin secretions.Unclear of nutrition plan in moving towards discharge,if able to adv diet, pt has c/o many food intolerances; ( seafood, tomatoes , etc) if going home onTfs would consider Compleat 1.4 250 ml bolus 4X/day to provide 1500 kcal & 100 g protein. 08/24: Pt seen w/ continuous TF infusing at goal rate of 47 mL/hr. Pt denies issues w/ tolerance. Bolus feeding recs as requested per team above. Will monitor K on labs tomorrow and switch TF formula as needed to increase K+ provision. 08/22: Consulted for TEN recommendations. Do not see enteral access at this time in the [facility]. Nutrition Focused Physical Exam: Not performed Malnutrition Diagnosis: Not enough data to assess (Fransisca, JPEN J Parenteral Enteral Nutr. 2011; 36(3): 273-83) Nutrition to continue to follow up while inpatient * Toño Pacheco MD - 08/31/2022 9:56 AM EDT OTOLARYNGOLOGY - HEAD & NECK SURGERY DAILY PROGRESS NOTE Name: Theresa Hollis Age/Sex: 52 y.o. female Attending: oRberth Lee MD Hospital Day: 11 10 Days Post-Op Patient ID/Reason for Admission Theresa Hollis is a 52 y.o. 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 She underwent tracheostomy, neck exploration, mandible excision, and fibula free flap reconstruction 08/21 with ENT and PRS. Interval History - NGT removed yesterday, still swallowing minimally - Scope with significant pooling of secretions, ? L cord paresis yesterday, decided to delay decannulation - Remained capped overnight - Feels less anxious this AM - PPN running - AF, VSS Vitals Last value 24hr Range Temperature: 36.5 ??C (97.7 ??F) Temp: [36.1 ??C (97 ??F)-37.1 ??C (98.8 ??F)] Heart Rate: 88 Heart Rate: [88-99] Blood Pressure: 121/78 BP: (115-149)/(74-88) Respiratory Rate: 14 Resp: [14-16] SpO2: 98 % SpO2: [91 %-99 %] Intake & Output Intake/Output Summary (Last 24 hours) at 08/31/2022 0957 Last data filed at 08/31/2022 0620 Gross per 24 hour Intake 505 ml Output 10 ml Net 495 ml Physical Exam General: NAD, non-ill appearing, resting comfortably in bed. Face: Symmetric without dysmorphic features. Eyes: EOMI, conjunctiva healthy. L periorbital edema. Ears: Auricles symmetric, no lesions Nose: Patent nares, grossly normal appearance Oral Cavity/Pharynx: Mucosa is pink, oropharynx symmetric. Mandibular suture lines intact without apparent dehiscence, flap is pink, warm, and well perfused. Scant granulation tissue anteriorly Neck: Soft, trachea midline. Tracheostomy tube secure in place with soft straps, capped. Generalized induration/erythema. Significant crusting along suture lines. Submental skin with a small area of skin breakdown. Chest: Non-labored breathing, regular rate on RA Neuro: Alert & oriented, moving extremities x 4, communicating via writing and speech Labs Recent Labs 08/31/22 0034 NA 128* K 4.5 CL 91* CO2 26 BUN 18 CREATININE 0.39* GLUCOSE 112 CALCIUM 9.4 MAGNESIUM 0.96 PHOS 3.7 Imaging None. ASSESSMENT & PLAN Theresa Hollis is a 52 y.o. female s/p neck exploration, tracheostomy, mandible excision, and fibula free flap reconstruction, 10 Days Post-Op. Theresa is working on swallowing and will continue to see INFORMATION DEVELOPER daily. Will continue PPN for now. Wound care consulted for neck skin breakdown. Will have PRS examine the area today as well. Surgical/Head&Neck: Neck should remain in neutral position Trach suctioning and trach care per RT. No HTC if trach capped. Apply aquaphor to incisions OK for trach capping Swallow per PRS Wound care consult for neck skin. Neurologic: Pain controlled with lidoderm patch, oxycodone PRN, dilaudid PRN. Cardiovascular: PAMELA Pulmonary: Oxygenation on RA Gastrointestinal: Zofran PRN Genitourinary: Voiding spontaneously Musculoskeletal: PAMELA Fluids/Electrolytes: - Nutrition: Sips and Chips (Give Meds) Bolus TF. Encourage PO. Working w INFORMATION DEVELOPER. Infectious Disease: WBC wnl, Unasyn x 5 days; Peridex Hematology: Hemoglobin wnl Endocrine: Home levothyroxine Consults: PRS Lines: Patient Lines/Drains/Airways Status Active Tubes/Lines/Drains Name Placement date Placement time Site Days Peripheral IV Line - Single Lumen 08/30/222147 basilic vein (medial side of arm), left 22 gauge;1 in length 08/30/222147 -- 1 Closed/Suction Drain Right;Anterior Neck Bulb 15 Citizen Of [place] 08/21/22 1947 Neck 10 Trach Airway 08/28/22 1616 08/28/221615 -- 3 Prophylaxis: Lovenox, SCD, activity per PRS Disposition: Floor status, Attempt Cardiopulmonary Resuscitation - Inpatient Discharge: Plan for d/c TBD; Needs trach supplies, suction, VNA; Follow-up ENT Toño Pacheco MD, PGY1 08/31/22 9:57 AM ENT Team Pager: [phone] * Akhil Martinez, PA - 08/31/2022 7:06 AM EDT Images from the original note were not included. Plastic Surgery Inpatient Progress Note (Team Pager #[phone] Date of surgery: 08/21/22 CC/Procedure(s): Oromandibular reconstruction with right fibula free flap, skin graft from R thigh to right leg and submental opening Surgeon: Luz Elena Subjective/IE: LASHON. DHT removed yesterday, potential G tube pending repeat INFORMATION DEVELOPER eval. Tolerating trach capping. Objective: BP 128/74 (BP Location (NBP): Right arm, Patient Position: Lying) Pulse 88 Temp 36.7 ??C (98.1 ??F) (Oral) Resp 16 Ht 157.5 cm (5' 2) Wt 46 kg (101 lb 8 oz) SpO2 91% BMI 18.56 kg/m?? Intake/Output Summary (Last 24 hours) at 08/31/2022 0706 Last data filed at 08/31/2022 0400 Gross per 24 hour Intake 505 ml Output -- Net 505 ml General: Resting comfortably in no acute distress. Neuro: Awake, alert, responds to questions appropriately. CV: RRR Pulm: non- labored breathing on RA, trach capped HEENT: Flap warm and well perfused with strong doppler signal, skin paddle euchromic with donor site, skin graft has some scabbing present, inset incision intact, neck incision intact with shayna with surrounding stable erythema and some induration, drain x1 w/ serosanguinous output. RLE: Skin graft well adherent and healing well, dressed with bacitracin/xeroform/Abd pad/Kerlix. Labs: Recent Labs 08/31/22 0034 NA 128* K 4.5 CL 91* BUN 18 CREATININE 0.39* CO2 26 GLUCOSE 112 ANIONGAP 11 CALCIUM 9.4 Micro: N/A Imaging/Studies: N/A Assessment: Theresa Hollis is a 52 y.o. female s/p oromandibular reconstruction with a fibula free flap 08/21. Recovering well overall. Working on a nutrition plan. Plan: Q4h flap checks Dressings/Drains: Strip and record drain output. Allevyn off 09/04. RLE STSG QOD dressing changes, next change 09/02. Antibiotics: Unasyn x5d Diet: Appreciate INFORMATION DEVELOPER recommendations Activity: WBAT RLE. May wear boot as needed for comfort. DVT prophylaxis: SCD left leg, lovenox Remainder of care per primary team CALLY Owens Plastic Surgery Inpatient Team Pager #[phone] * Kimberly Mendoza RCP - 08/31/2022 5:39 AM EDT RT Tracheostomy Note Oxygen Delivery: Interface: None (Room air) Flow: 40 L/min FiO2: 21 % Skin Assessment: WDL Airway: Trach Airway 08/28/22 1616 (Active) Tracheal Airway Size Verfication 4 mm 08/30/222044 Appearance clean;dry 08/30/222044 Tube Securement foam trach ties 08/30/222044 Trach Cap Status capped/plugged 08/30/222044 Tube Care/Reposition inner cannula changed 08/30/222044 Manual Resuscitator at Bedside Yes 08/30/222044 Spare Trach At Bedside Yes 08/30/222044 Trach ToGo kit at Bedside Yes 08/30/222044 Emergency Airway Sign at [facility]? Yes 08/30/22 204 Trach Care Performed: Site cleaned/ inner cannula changed Secretions: none Assessment: Pt remains on room air with trach capped. She is tolerating this well . 0500 Pt had some thick secretions but able to clear them. Productive for small/moderate white/pale.Trach care done. Plan: Will continue to follow. KIMBERLY MENDOZA RCP * Toño Pacheco MD - 08/30/2022 5:22 PM EDT Procedure - Flexible Fiberoptic Laryngoscopy: Flexible endoscopy performed to evaluated airway in preparation for possible decannulation. Topicalmixture of decongestant and anesthetic was applied to the nasal cavity. The scope was passed through the nasal cavity, through the nasopharynx, and into the oropharynx. The patient tolerated the procedure well without complication. Findings: Nasal Cavity: Normal appearing mucosa, no obstructions or lesions noted. Nasopharynx: No lesions or masses noted. Oropharynx: Base of tongue/vallecula symmetric with normal appearing lingual tonsillar tissue. No masses, ulcerations or mucosal lesions noted. Larynx: Epiglottis is short and thickened, fibrotic appearing. Arytenoids are moderateley edematous, L>R. R cord with full motion, L cord with minimal abduction. Apparent laryngeal penetration of thick mucoid secretions. Able to clear secretions with cough when prompted, but impaired cough reflex. Hypopharynx: Piriform sinuses are clear bilaterally, without evidence of masses or lesions. Significant pooling of thick secretions with laryngeal penetration. Will delay decannulation for now. Will plan to rescope in coming days to reassess. Toño Pacheco MD ENT PGY-1 Personal Pager #[phone] ENT Team Pager #[phone] * Azul Mason RD - 08/30/2022 3:08 PM EDT Nutrition Note TPN cx received after Pharmacy deadline Base PPN w/ lytes ordered to begin tonite. Custom PN & full assessment to be done tomorrow. Thank you, AZUL MASON RD * Jazmyn Fletcher SLP - 08/30/2022 12:53 PM EDT Speech Therapy Note Patient Profile: Theresa Hollis is a 52 y.o. female admitted on 08/21/2022 history of [id number] SCCaof the left lateral tongue s/p hemiglossectomy, left neck dissection 1-5, skin graft, allograft (10/31/06) followed by adjuvant chemo XRT now presenting with ORN of the mandible. She underwent tracheostomy, neck exploration, mandible excision, and fibula free flap reconstruction 08/21 with ENT and PRS. Per ENT notes. Trach in place by ENT, Pt tolerating capping as of now. Team plans to decannulated today. INFORMATION DEVELOPER therapy summary: INFORMATION DEVELOPER following since 08/29/2022 for her swallow function w/ ENT's recommendation Not to advance beyond purees Interval History: ENT plans to decannulated this day along with DHT removal. BIT provided consult on 08/29/22. Subjective: Pt seen once in morning when she came back from imaging and requested to rest and give her a break. When INFORMATION DEVELOPER re-visited this noon, Pt was willing to work with INFORMATION DEVELOPER, at bedside thiswhole session. Also reported Benadryl made her mouth dry Objective: Pt seen for dysphagia management and demonstrated the following: Pain: None reported today Respiratory Status: Room air SpO2-97-98 HR 110-118 Current Diet: Sips and Chips (Give Meds) Feeding / Oral Care Status: Pt is independent Cognitive-Linguistic Status: Fully Conscious: Awake, alert, oriented x3, comprehends spoken or written words, follows commands No cognitive-linguistic deficits noted. Command Following: Follows single step commands, Requires increased time to complete Positioning: HOB at 50 degrees Oral / Laryngeal Mechanism Clinical Assessment: No remarkable change from yesterday. Lingual movements mildly improved. Dry oral secretions cleared with 4 wet swabs at the beginning of session. Bolus Presentation(s): Ice chips - 3mm size x5 trials. Oral Preparatory Phase: Good hand mouth coordination, Pt attempts to maintain lip seal by pressing lips together. Oral stasis noted with ice chips >3mm size - Pt spits out as it was beyond her capacity as of this day. Pharyngeal Phase: Overt cough noted with phlegm (yellow,thick) expectoration throughout the session, no change in voice quality noted with PO intake. Pt fatigued after 5 trials and requested to take a break. Esophageal Phase: Appears to be WFL, No overt clinical s/s of esophageal phase dysphagia noted during this evaluation. Compensatory Techniques: Following is effective for airway protection Small ice chips 3mm size Small sips of ice 1-3ml only. Place bolus on right side only. Education: Patient, Family educated on results and recommendations, and verbalized understanding. Patient status, treatment and swallow recommendations were discussed with nursing. Secure chat sent to team regarding results and recommendations Assessment: Pt was seen today for a follow-up INFORMATION DEVELOPER visit targeting her swallow function. present at bedside. Oral laryngeal mechanism reveals mildly improved lingual function, dry secretions present which were cleaned using 4 wet swabs at the beginning of session. Pt continues to tolerate small 3mm size icechips placed on right side of oral cavity. No thin liquids attempted. INFORMATION DEVELOPER continues to recommend ice chips 3mm in size with gradual advancement as tolerated throughout the day with advancing to 1-2mlthin liquids by tsp. Place food on right side on mouth to avoid anterior loss from mouth during PO intake. Pt continues to need motivation and encouragement for continuing PO intake for diet advancement. Pt would benefit from skilled INFORMATION DEVELOPER services to maximize swallow function to achieve therapy goals and to address limitations as noted above. Diagnosis: Severe oropharyngeal dysphagia 2/2 CA and mandibular # Recommendations: Diet: Sips / chips PO medications: IV or other alternative means only Aspiration precautions: Upright position during meals and for at least 30 mins following Small sips and bites while eating Check oral cavity frequently for pocketing Tsp amount sips only Place food on right side on mouth during PO intake. Pt will benefit from continued INFORMATION DEVELOPER services while hospitalized Speech Therapy Goals: ONGOING unless otherwise stated Pt will tolerate least restrictive diet without evidence of dysphagia / aspiration. Pt / caregiver will be independent with aspiration precautions, diet modifications, and safe swallowing strategies. Plan: Therapy Frequency (INFORMATION DEVELOPER Eval): 3-5 times/wk Pt./family are in agreement with treatment plan. Total Minutes (Speech Language Pathology): 24 Thank you for this consult with this patient. Please feel free to page me with any questions or concerns. Jazmyn Fletcher MS, INFORMATION DEVELOPER-CF Pager #[phone] Speech Language Pathology Inpatient Rehabilitation Medicine * Kimberly Jones DOSIER OPERATOR - 08/30/2022 11:22 AM EDT Respiratory Care Tracheostomy Note O2 Device: None (Room air) SpO2: 99 % Resp: 20 Airway Type: Shiley Size: Adult Trach: 4.0 Style: UN (Disposable) Securement: Foam Trach Ties Skin Integrity: WDL Capped: Yes Trach care: Not needed at this time. Trach to Go Bag: Spare trach and equipment is in place. Secretions: None noted. Assessment: Trach remains capped. Pt on RA * Toño Pacheco MD - 08/30/2022 9:55 AM EDT OTOLARYNGOLOGY - HEAD & NECK SURGERY DAILY PROGRESS NOTE Name: Theresa Hollis Age/Sex: 52 y.o. female Attending: Roberth Lee MD Hospital Day: 10 9 Days Post-Op Patient ID/Reason for Admission Theresa Hollis is a 52 y.o. 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 She underwent tracheostomy, neck exploration, mandible excision, and fibula free flap reconstruction 08/21 with ENT and PRS. Interval History - Tolerating capping without issue - No acute events overnight - No flap concerns - Tolerating bolus TF - AF, VSS - Feeling anxious this AM, tachycardic, EKG wnl, CXR wnl Vitals Last value 24hr Range Temperature: 36 ??C (96.8 ??F) Temp: [35.9 ??C (96.6 ??F)-36.7 ??C (98.1 ??F)] Heart Rate: (!) 105 Heart Rate: [102-105] Blood Pressure: 143/87 BP: (93-143)/(66-91) Respiratory Rate: 20 Resp: [16-20] SpO2: 99 % SpO2: [97 %-100 %] Intake & Output Intake/Output Summary (Last 24 hours) at 08/30/2022 0955 Last data filed at 08/30/2022 0536 Gross per 24 hour Intake 120 ml Output 10 ml Net 110 ml Physical Exam General: NAD, non-ill appearing, resting comfortably in bed, anxious appearing Face: Symmetric without dysmorphic features. Edema much improved. Eyes: EOMI, conjunctiva healthy. L periorbital edema. Ears: Auricles symmetric, no lesions Nose: Patent nares, grossly normal appearance Oral Cavity/Pharynx: Mucosa is pink, oropharynx symmetric. Mandibular suture lines intact without apparent dehiscence, flap is pink, warm, and well perfused. Scant granulation tissue anteriorly Neck: Soft, trachea midline. Tracheostomy tube secure in place with soft straps, capped. Chest: Non-labored breathing, regular rate on HTC Neuro: Alert & oriented, moving extremities x 4, communicating via writing and speech Labs No results for input(s): WBC, HGB, HCT, PLATELET, PT, INR, PTT, NA, K, CL, CO2, BUN, CREATININE, GLUCOSE, CALCIUM, MAGNESIUM, PHOS in the last 72 hours. Imaging None. ASSESSMENT & PLAN Theresa Hollis is a 52 y.o. female s/p neck exploration, tracheostomy, mandible excision, and fibula free flap reconstruction, 9 Days Post-Op. Theresa continues to recover well and is tolerating trach capping. Continues to work with INFORMATION DEVELOPER, will plan to remove NGT later today. Will also decannulate today. Surgical/Head&Neck: Neck should remain in neutral position Trach suctioning and trach care per RT. No HTC if trach capped. Apply aquaphor to incisions Peridex mouth rinse--OK for saline rinses as peridex mckeon OK for trach capping Swallow per PRS Neurologic: Pain controlled with lidoderm patch, oxycodone PRN, dilaudid PRN. Cardiovascular: PAMELA Pulmonary: Oxygenation on RA Gastrointestinal: Zofran PRN Genitourinary: Voiding spontaneously Musculoskeletal: PAMELA Fluids/Electrolytes: - Nutrition: Sips and Chips (Give Meds) Bolus TF. Infectious Disease: WBC wnl, Unasyn x 5 days; Peridex Hematology: Hemoglobin wnl Endocrine: Home levothyroxine Consults: PRS Lines: Patient Lines/Drains/Airways Status Active Tubes/Lines/Drains Name Placement date Placement time Site Days Peripheral IV Line - Single Lumen 08/24/22 0100 cephalic vein (lateral side of arm), left 20 gauge 08/24/22 0100 -- 6 Closed/Suction Drain Right;Anterior Neck Bulb 15 Citizen Of [place] 08/21/22 194 Neck 9 Naso/Oral Tube 08/22/221814 nasogastric left nostril 08/22/22 181 left nostril 8 Trach Airway 08/28/22 1616 08/28/22 1616 -- 2 Prophylaxis: Lovenox, SCD, activity per PRS Disposition: Floor status, Attempt Cardiopulmonary Resuscitation - Inpatient Discharge: Plan for d/c as early as Sunday; Needs trach supplies, suction, VNA; Follow-up ENT Toño Pacheco MD, PGY1 08/30/22 9:55 AM ENT Team Pager: [phone] * Kelly Laguna MD - 08/30/2022 7:04 AM EDT Plastic Surgery Inpatient Progress Note (Team Pager #[phone] Date of surgery: 08/21/22 CC/Procedure(s): Oromandibular reconstruction with right fibula free flap, skin graft from R thigh to right leg and submental opening Surgeon: Luz Elena Subjective/IE: LASHON. Patient was seen by INFORMATION DEVELOPER yesterday and was advanced to sips and chips. Continueson TF. No other issues at the moment. Objective: BP (!) 136/91 (BP Location (NBP): Right arm, Patient Position: Sitting) Pulse (!) 102 Temp 35.9??C (96.6 ??F) (Oral) Resp 20 Ht 157.5 cm (5' 2) Wt 46 kg (101 lb 8 oz) SpO2 99% BMI 18.56 kg/m?? Intake/Output Summary (Last 24 hours) at 08/30/2022 0704 Last data filed at 08/30/2022 0536 Gross per 24 hour Intake 120 ml Output 10 ml Net 110 ml General: Resting comfortably in no acute distress. Neuro: Awake, alert, responds to questions appropriately. CV: RRR Pulm: non- labored breathing, trach capped HEENT: Flap warm and well perfused with strong doppler signal, skin paddle euchromic with donor site, skin graft has some scabbing present, inset incision intact, neck incision intact with shayna with surrounding stable erythema and some induration, drain x1 w/ serosanguinous output. RLE: dressings C/D/I Labs: No results for input(s): WBC, HGB, HCT, NA, K, CL, BUN, CREATININE, CO2, GLUCOSE, ANIONGAP, CALCIUM, ALBUMIN, AST, ALT, ALKPHOS, BILITOT, BILIDIR, PREALBUMIN in the last 72 hours. Invalid input(s): PROF, ESGFR Micro: N/A Imaging/Studies: N/A Assessment: Theresa Hollis is a 52 y.o. female s/p oromandibular reconstruction with a fibula free flap 08/21. Recovering well overall. Currently working with INFORMATION DEVELOPER. Plan: Q4h flap checks Dressings/Drains: Strip and record drain output. Allevyn off 09/04. RLE stsg changed yesterday 08/29.baci and xeroform, QOD. Antibiotics: Unasyn x5d Diet: Continue TF as tolerated, INFORMATION DEVELOPER ok'd for sips and chips Activity: TTWB in CAM boot when out of bed DVT prophylaxis: SCD left leg, lovenox Remainder of care per primary team CALLY Baker Plastic Surgery Inpatient Team Pager #[phone] Attending: Plan discussed and agree as documented. Kelly Laguna MD Plastic Surgery * Analisa Johnson, [facility] - 08/30/2022 4:10 AM EDT RT Tracheostomy Note Oxygen Delivery: Interface: None (Room air) Skin Assessment: WDL, scant yellow drainage from stoma site Barrier Used: None per ENT Breath Sounds: Diminished Airway: Changed to 4UN by ENT 08/28/22. Trach Airway 08/28/22 1616 (Active) Tracheal Airway Size Verfication 4 mm 08/29/222048 Appearance drainage 08/29/222048 Tube Securement foam trach ties 08/29/222048 Trach Cap Status capped/plugged 08/29/222048 Tube Care/Reposition dressing changed;inner cannula changed;site care done 08/29/222048 Manual Resuscitator at Bedside Yes 08/29/222048 Spare Trach At Bedside Yes 08/29/222048 Trach ToGo kit at Bedside Yes 08/29/222048 Emergency Airway Sign at [facility]? Yes 08/29/222048 Secretions: Small amounts, thick, osorio/yellow Assessment: Received Theresa with Shiley 4UN securely in place, capped, on room air in no apparent distress. States her neck incisions are sore but denies SOB. States her breathing feels better with uncuffed trach but endorsed anxiety around coughing with capin place, reassured her that cap is securely in place now with smaller sized trach and encouraged her to cough secretions up in her mouth as able. Encouraged her to keep cap on and she agreed. 0330: Cap inadvertently removed during sleep for ~30 minutes. Pt states she doesn't remember why she took it off and replaced it without issues. Plan: Trach to remain capped. Assess for decannulation in the coming days. Analisa Johnson RCP * Hollie Vang RN - 08/29/2022 3:40 PM EDTSummary: DISCHARGE PLANNING This RN-CM met with pt and her , pt is doing well with increasing po intake of sips and chips, has been able to have trach downsized and has tolerated capping since yesterday afternoon. It is hopeful pt will be able to tolerate po enough to sustain herself and be decanulated, if unable pt will need trach and tube feed supplies for her d/c home. In anticipation of this plan, please refer to: [address] [address] or *for tube feed and supplies Also [facility] (Resp Supplies) Central Intake: [place]: [place]: -They cover all [place] *For trach supplies, suction and humidification. BRAD: 08/31/22 Hollie Vang MSN-Ed, RN ACM physical chemistry teacher Office of Care Management Pager #[phone] * Ashok Reardon, OT - 08/29/2022 2:57 PM EDT Occupational Therapy Treatment Note Treatment Number OT: 2 Patient Dx: Theresa Hollis is a 52 y.o. 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 She underwent tracheostomy, neck exploration, mandible excision, and fibula free flap reconstruction 08/21 with ENT and PRS. Precautions/Special Considerations: aspiration, Full code, Neck should remain in neutral position, tracheostomy, DHT, PIV,, FARRUKH drain to R neck, WBAT in boot (Boot for comfort only. May start to liberalize weight bearing. No longer needs to be TTWB.), up in chair, AAT, Sips and chips Interval History: Liberated WBing of RLE S: (I want to just) Walk in this room. O: Patient seen for skilled OT treatment, and demonstrated the following: Pt doffed multipodus boot independently Donned pants independently Donned walker boot on RLE and shoe on LLE Sit>stand: supervision w/ FWW Functional mobility: supervision w/ FWW Stand>sit: supervision w/ FWW Once seated EOB pt doffed walker boot, doffed L shoe, donned multipodus boot Discussed plan for bathing once home: pt's reports plan to have shower chair in place and the ability to use walk-in shower>her tub shower as needed Cognition: Behavior / Mood: alert and cooperative Alert and oriented to: person, place, date, and situation Follows commands: 100% of the time Attention: WFL Safety awareness: WFL, fully aware of deficits, and good safety precautions Endurance: fair-good Vitals: stable on RA Pain: Pt did not report pain Education: Pt/family/caregiver education ongoing regarding: Role of occupational therapy/rehabilitation, Transfers, ADL, Positioning, Safety, Precautions/Protocol, Brace Management, Functional Mobility, Balance, Recommendations, and Discharge planning. Staff Communication: Patient status, treatment, and mobility recommendations discussed with nursing/other staff. ASSESSMENT: Pt seen by OT for progression of functional mobility and self-care. Pt demonstrated good understanding of precautions as she was able to manage all aspects of LB dressing and performed functional mobility a house hold distance w/ supervision and use of a FWW. Anticipate pt will d/c homew/ her 's assistance once medically appropriate. OT will follow up as needed prior to d/c; however, anticipate pt will likely not need further OT intervention. Pt will benefit from ongoing therapeutic interventions to achieve pt's and therapy goals Anticipated Discharge Disposition (OT): home with supervision Equipment Recommendations: Equipment Needs Upon Discharge (OT): walker, front wheeled, shower chair Daily schedule / Staff Recommendations: Promote normalcy by encouraging participation in common daily tasks & leisure activities by providing set up assist Occupational Therapy Goals: To be achieved by 09/01/78 Pt will demonstrate independence with precautions/restrictions during ADLs. (Goal met) Pt will dress self independently using adaptive technique/equipment as needed (including donning walking boot on R LE). Pt will ambulate independently for ADLs with AD. Goal met Pt will pace self accordingly, and complete bathing/shower routine independently w/ set-up, using appropriate DME/AE as needed. Pt will be independent managing toileting routines in bathroom. Pt will be able to communicate her needs with minimal frustration. Goal met Therapy Frequency (OT):1-3 more times as needed Total Minutes, Occupational Therapy: 22 (nj , [id number]) Pager: [phone] Ashok Reardon OT Occupational Therapy Rehabilitation Department * Augie García - 08/29/2022 1:58 PM EDT Respiratory Care Tracheostomy Note O2 Device: None (Room air) O2 Flow Rate (L/min): 40 L/min FiO2 (%): 21 % SpO2: 99 % Resp: 16 Airway Type: Shiley Size: Adult Trach: 4.0 Style: UN (Disposable) Securement: Foam Trach Ties Skin Integrity: WDL Capped: Yes Trach care: Performed Trach to Go Bag: Spare trach and equipment is in place. Secretions: Small Thick Pale-yellow Assessment: Received pt this morning on RA w/ trach capped. HTC @ bedside on standby. Pt remained capped w/ no problems. Plan: Continue capping trials as tolerated. * Jenifer Rouse MSW - 08/29/2022 1:57 PM EDT PUSH CONNECTOR ASSEMBLER received a consult regarding patient's request for an ENT support group. PUSH CONNECTOR ASSEMBLER met with patient, spouse, Stephan and mother, Becca. 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 PUSH CONNECTOR ASSEMBLER made a referral to [facility] ENT outpatient vp digital marketing social media and crm who confirms she will follow up with this referral at patient's next follow up appointment. Patient given Aura Nation's information as well. A BIT consult has also been ordered by doctor for added emotional/therapeutic support. Overall, patient states, I will be much better once I get home. PUSH CONNECTOR ASSEMBLER to continue to provide psychosocial supports for patient and family if/when needed. * Tanja Wilson, PT - 08/29/2022 12:25 PM EDT Physical Therapy 08/29/22 5295 Evaluation & Treatment Document Type contact Total Minutes, Physical Therapy 0 (10 for conversation re wt bearing progression RLE) Treatment Date 08/29/22 Comment, Session Not Performed Pt just coming out of BR afte shower, reports that she is exhausted having had only 2 hours of sleep o/n. Pt obaeved to ambulate safely w/ FWW from BR x 20 ft to recliner. Pt declined further PT today but requested a work out tomorrow In the meantime will ask plastics re timing for progressing to WBAT in boot RLE. Therapy Frequency (PT) 2-4 times/wk Anticipated Equipment Needs at Discharge (PT) walker, four wheeled / rollator Anticipated Discharge Disposition (PT) home with supervision;home with home health TANJA WILSON, PT Pager # [phone] In-Pt Rehab Medicine Orders received via chat that pt is now WBAT on RLE with cont use of boot for comfort. Have passed on to RN. Resume PT for gait training and for stair management to prepare for home DC when medically stable. * Abril Mustafa - 08/29/2022 11:20 AM EDT Geothermal Operations Engineer Encounter Note Patient Name: Theresa Hollis : [id number] MR#: [id number] Admit Date: 08/21/2022 6:10 AM Hospital Day 8 days Narrative: Visited patient on unit rounds as follow up to consult request visit yesterday. The patient was sitting up in her chair and had a visitor. Assessment: The patient said that she had a caustic purification operator visit yesterday. She said she was fine today and did not need another visit. Intervention and Outcome: Told her I was glad she was better and wished her well going forward. She expressed thanks. Follow-up: No follow up required as currently assessed. Time in Direct Care: 5 minutes. Abril Mustafa 08/29/2022 * Jazmyn Fletcher, INFORMATION DEVELOPER - 08/29/2022 10:12 AM EDT Speech Therapy Bedside Swallow Evaluation Patient Profile: Theresa Hollis is a 52 y.o. female admitted on 08/21/2022 history of [id number] SCCaof the left lateral tongue s/p hemiglossectomy, left neck dissection 1-5, skin graft, allograft (10/31/06) followed by adjuvant chemo XRT now presenting with ORN of the mandible. She underwent tracheostomy, neck exploration, mandible excision, and fibula free flap reconstruction 08/21 with ENT and PRS. Per ENT notes. Trach in place by ENT, Pt tolerating capping as of now. INFORMATION DEVELOPER consulted on 08/29/2022 to evaluate her swallow function and Not to advance beyond [facility] Prior Level of Swallow Function: Pt reports PO intake with soft solids and thin liquids. Subjective: Pt encountered at bed and later requested to position in chair for comfort. Family present in room during the time of evaluation. Is willing to work with INFORMATION DEVELOPER and as session progressed comments this is frustrating communicates using white board throughout the session wit INFORMATION DEVELOPER. Objective: Pt seen for evaluation today. Pain: In leg and around jaw - reports can work with INFORMATION DEVELOPER Respiratory Status: Room air Vision: WFL per pt Hearing: WFL Current Diet: NPO diet (Give Meds) Feeding Status: Pt is independent Dependent for Oral Care? No Cognitive-Linguistic Status: Fully Conscious: Awake, alert, oriented x3, comprehends spoken or written words, follows commands Orientation Log DNT Follows Commands: Follows single step commands, Requires increased time to complete Positioning: HOB at 60 degrees & later positioned in chair Per Pt's request Oral / Laryngeal Mechanism Clinical Assessment: Lingual: reduced ROM and strength Labial / Buccal: Reduced ROM and no lipseal noted. Buccal swalling left>right Velar: minimal visibility Sensation: Appears adequate Vocal fold function and airway protection: Adequate protection, evident by strong cough reflex. Speech Intelligibility: Reduced at this moment. Trach is capped. Mucosa: dry cracked tongue and dry secretions sticking to lips and roof top. Dentition: multiple missing teeth Bolus Presentation(s) Ice chips - 1mm, 3mm, 5mm size once ice chip Thin liquid 1 mL, 3 mL, via spoon Oral Preparatory Phase Mastication: None attempted with ice, ice stuck to tongue due to dryness Oral Transit: delayed ~5 seconds Bolus Cohesion: impaired Labial Seal / Loss: No labial seal noted Oral Stasis: Oral stasis noted with large water bolus/large ice chip Pharyngeal Phase Laryngeal Elevation: DNT due to presence of stitches. Vocal quality change: Negative Cough / throat clear: Overt cough noted when ice/water placed on left side and with large bolus on right side. Pt. complaint of food getting stuck: No Fatigue across trials: Yes Respiratory rate and respiratory swallow pattern: WFL no fluctuation Esophageal Phase Appears to be WFL, No overt clinical s/s of esophageal phase dysphagia noted during this evaluation. Compensatory Techniques: Following is effective for airway protection Small ice chips 3mm size Small sips of ice 1-3ml only. Place bolus on right side only. Education: Patient, Family educated on results and recommendations, and verbalized understanding. Patient status, treatment and swallow recommendations were discussed with nursing. Chat sent to team regarding results and recommendations Assessment: Pt seen for INFORMATION DEVELOPER swallow evaluation to assess her swallow function at this time. Pt encountered at bedside and is presently communicating using white board. Family present at bedside. Oral/laryngeal mechanism exam reveals reduced lingual and labial ROM and strength w/ no lipseal. Pt's tongue is dry and cracked at this moment with thick dry secretions attached to lips and oral mucosa. Oral cavity cleaned and moistened with swab at beginning of session. At this time of eval. Pt tolerates small 3mm size ice chips placed on right side of oral cavity. Thin liquids pour into pharynxdue to h/o partial glossectomy. INFORMATION DEVELOPER recommends ice chips 3mm in size with gradual advancement as tolerated throughout the day. Place food on right side on mouth to avoid anterior loss from mouth during PO intake. Pt appeared briefly frustrated during the session and INFORMATION DEVELOPER provided support and encouragement duringthis time. Pt may benefit from BIT consult for mental/emotional support during the course of hospitalization. INFORMATION DEVELOPER will continue to evaluate and advance diet as tolerated by Pt and as approved by ENT team. Diagnosis: Severe oropharyngeal dysphagia 2/2 CA and mandibular # Recommendations: Diet: Sips / chips PO medications: IV or other alternative means only Aspiration precautions: Upright position during meals and for at least 30 mins following Small sips and bites while eating Check oral cavity frequently for pocketing Tsp amount sips only Place food on right side on mouth during PO intake. Pt will benefit from continued INFORMATION DEVELOPER services while hospitalized Speech Therapy Goals: (To be met by discharge) Pt will tolerate least restrictive diet without evidence of dysphagia / aspiration. Pt / caregiver will be independent with aspiration precautions, diet modifications, and safe swallowing strategies. Plan: Therapy Frequency (INFORMATION DEVELOPER Eval): 3-5 times/wk Pt./family are in agreement with treatment plan. Total Minutes (Speech Language Pathology): 42 Thank you for this consult with this patient. Please feel free to page me with any questions or concerns. Jazmyn Fletcher MS, INFORMATION DEVELOPER- Pager #[phone] Speech Language Pathology Inpatient Rehabilitation Medicine * Toño Pacheco MD - 08/29/2022 7:39 AM EDT OTOLARYNGOLOGY - HEAD & NECK SURGERY DAILY PROGRESS NOTE Name: Theresa Hollis Age/Sex: 52 y.o. female Attending: Roberth Lee MD Hospital Day: 9 8 Days Post-Op Patient ID/Reason for Admission Theresa Hollis is a 52 y.o. 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 She underwent tracheostomy, neck exploration, mandible excision, and fibula free flap reconstruction 08/21 with ENT and PRS. Interval History - Downsized to 4UN65H yesterday, tolerating capping - No acute events overnight - No flap concerns - Tolerating bolus TF - AF, VSS - No additional complaints Vitals Last value 24hr Range Temperature: 36.2 ??C (97.2 ??F) Temp: [36.2 ??C (97.2 ??F)-36.7 ??C (98.1 ??F)] Heart Rate: 85 Heart Rate: -- Blood Pressure: 109/73 BP: (104-124)/(65-79) Respiratory Rate: 16 Resp: [15-16] SpO2: 98 % SpO2: [95 %-98 %] Intake & Output Intake/Output Summary (Last 24 hours) at 08/29/2022 0740 Last data filed at 08/29/2022 0000 Gross per 24 hour Intake 160 ml Output -- Net 160 ml Physical Exam General: NAD, non-ill appearing, resting comfortably in bed, less anxious today Face: Symmetric without dysmorphic features. Edema much improved. Eyes: EOMI, conjunctiva healthy. L periorbital edema. Ears: Auricles symmetric, no lesions Nose: Patent nares, grossly normal appearance Oral Cavity/Pharynx: Mucosa is pink, oropharynx symmetric. Mandibular suture lines intact without apparent dehiscence, flap is pink, warm, and well perfused. Scant granulation tissue anteriorly Neck: Soft, trachea midline. Tracheostomy tube secure in place with soft straps, capped. Chest: Non-labored breathing, regular rate on HTC Neuro: Alert & oriented, moving extremities x 4, communicating via writing and speech Labs No results for input(s): WBC, HGB, HCT, PLATELET, PT, INR, PTT, NA, K, CL, CO2, BUN, CREATININE, GLUCOSE, CALCIUM, MAGNESIUM, PHOS in the last 72 hours. Imaging None. ASSESSMENT & PLAN Theresa Hollis is a 52 y.o. female s/p neck exploration, tracheostomy, mandible excision, and fibula free flap reconstruction, 8 Days Post-Op. Theresa continues to recover well and is tolerating trach capping. Will swallow today per PRS. Surgical/Head&Neck: Neck should remain in neutral position Trach suctioning and trach care per RT. No HTC if trach capped. Apply aquaphor to incisions Peridex mouth rinse--OK for saline rinses as peridex mckeon OK for trach capping Swallow per PRS Neurologic: Pain controlled with lidoderm patch, oxycodone PRN, dilaudid PRN. Cardiovascular: PAMELA Pulmonary: Oxygenation on RA Gastrointestinal: Zofran PRN Genitourinary: Voiding spontaneously Musculoskeletal: PAMELA Fluids/Electrolytes: - Nutrition: NPO diet (Give Meds) Bolus TF. Infectious Disease: WBC wnl, Unasyn x 5 days; Peridex Hematology: Hemoglobin wnl Endocrine: Home levothyroxine Consults: PRS Lines: Patient Lines/Drains/Airways Status Active Tubes/Lines/Drains Name Placement date Placement time Site Days Peripheral IV Line - Single Lumen 08/21/22 0838 18 gauge 08/21/22 0838 -- 8 Peripheral IV Line - Single Lumen 08/24/22 0100 cephalic vein (lateral side of arm), left 20 gauge 08/24/22 0100 -- 5 Closed/Suction Drain Right;Anterior Neck Bulb 15 Citizen Of [place] 08/21/22 194 Neck 8 Naso/Oral Tube 08/22/22 1815 nasogastric left nostril 08/22/22 1815 left nostril 7 Trach Airway 08/28/22 1616 08/28/22 1616 -- 1 Prophylaxis: Lovenox, SCD, activity per PRS Disposition: Floor status, Attempt Cardiopulmonary Resuscitation - Inpatient Discharge: Plan for d/c as early as Sunday; Needs trach supplies, suction, VNA; Follow-up ENT Toño Pacheco MD, PGY1 08/29/22 7:40 AM ENT Team Pager: [phone] * Dimitry Marin, PA - 08/29/2022 7:12 AM EDT Images from the original note were not included. Plastic Surgery Inpatient Progress Note (Team Pager #[phone] Date of surgery: 08/21/22 CC/Procedure(s): Oromandibular reconstruction with right fibula free flap, skin graft from R thigh to right leg and submental opening Surgeon: Luz Elena Subjective/IE: LASHON. States she didn't sleep well because it's too loud in the hospital. Doing well and in good spirits otherwise. Objective: BP 109/73 (BP Location (NBP): Left arm, Patient Position: Lying) Pulse 85 Temp 36.2 ??C (97.2 ??F) (Oral) Resp 16 Ht 157.5 cm (5' 2) Wt 46 kg (101 lb 8 oz) SpO2 98% BMI 18.56 kg/m?? Intake/Output Summary (Last 24 hours) at 08/29/2022 0712 Last data filed at 08/29/2022 0000 Gross per 24 hour Intake 160 ml Output -- Net 160 ml General: Resting comfortably in no acute distress. Neuro: Awake, alert, responds to questions appropriately. CV: RRR on monitor Pulm: non- labored breathing, trach HEENT: Flap warm and well perfused with strong doppler signal, skin paddle euchromic with donor site, skin graft appears healthy, inset incision intact, neck incision intact with shayna with surrounding erythema and some induration, drain x1 w/ serosanguinous output. RLE: skin graft with good take. Appears healthy. Labs: No results for input(s): WBC, HGB, HCT, NA, K, CL, BUN, CREATININE, CO2, GLUCOSE, ANIONGAP, CALCIUM, ALBUMIN, AST, ALT, ALKPHOS, BILITOT, BILIDIR, PREALBUMIN in the last 72 hours. Invalid input(s): PROF, ESGFR Micro: N/A Imaging/Studies: N/A Assessment: Theresa Hollis is a 52 y.o. female s/p oromandibular reconstruction with a fibula free flap 08/21. Recovering well overall. Plan: Q4h flap checks Dressings/Drains: Strip and record drain output. Allevyn off 09/04. RLE stsg changed today. baci andxeroform, QOD. Antibiotics: Unasyn x5d Diet: Continue TF as tolerated, INFORMATION DEVELOPER okay for today Activity: TTWB in CAM boot when out of bed DVT prophylaxis: SCD left leg, lovenox May start PT Remainder of care per primary team CALLY Baker Plastic Surgery Inpatient Team Pager #[phone] * Sandra Bergman, [facility] - 08/29/2022 4:47 AM EDT RT Tracheostomy Note Oxygen Delivery: Interface: Heated trach collar Flow: 40 L/min FiO2: 21 % Barrier Used: drain sponge Breath Sounds: coarse Last Chest X-ray: Results for orders placed during the hospital encounter of 08/21/22 XR Chest One View Narrative EXAMINATION: XR CHEST ONE VIEW CLINICAL HISTORY: s/p multiple enteral tube placements, want to rule out PTX TECHNIQUE: 1 view of the chest COMPARISON: Chest radiograph 01/19/2014 FINDINGS: Tracheostomy tube in place. Faint left basilar opacity.. No pleural effusion or pneumothorax. The cardiomediastinal silhouette, taras, and pulmonary vasculature are within normal limits. Surgical changes in the left supraclavicular region. Partially visualized dilated loops of large bowel are present in the LEFT upper quadrant Impression 1. Faint left basilar opacity which can be seen in atelectasis or pneumonitis. 2. No pneumothorax. 3. Distended loops of colon in the LEFT upper quadrant Preliminary report signed by: Hermelindo Garcia at 08/22/2022 5:35 PM I have personally reviewed the image(s) and the resident's interpretation and agree with the findings, LILY CELESTE MD at 08/22/2022 5:39 PM Thank you for letting us participate in the care of this patient. If you are a health care provider and have any questions regarding this report, please contact the number below. For patients who have questions please contact the health director critical care that requested your imaging first. Electronically signed by: LILY CELESTE MD, [facility] ([phone]), at 08/22/2022 5:39 PM Airway: Trach Airway 08/28/22 1616 (Active) Tracheal Airway Size Verfication 4 mm 08/29/22 0400 Appearance clean 08/29/22 0400 Tube Securement foam trach ties 08/29/22 0400 Trach Cap Status capped/plugged 08/29/22 0400 Tube Care/Reposition inner cannula changed;site care done 08/28/22 0746 Manual Resuscitator at Bedside Yes 08/29/22 0400 Spare Trach At Bedside Yes 08/29/22 0400 Trach ToGo kit at Bedside Yes 08/29/22 0400 Emergency Airway Sign at [facility]? Yes 08/29/22 0400 Trach Care Performed: Trach Airway 08/28/22 1616-Tube Care/Reposition: (trach care done at 1630 by ENT during trach change) [REMOVED] Trach Airway 08/21/22 1948-Tube Care/Reposition: inner cannula changed, site care done Pt received with capped trach (after downsize to 4.0 Shiley uncuffed trach put in place by ENT at 1600). Pt capped overnight although she removed it a couple times briefly due to anxiety when she coughs. Encouraged leaving cap in place as the goal is at least 24 hours with capped trach. HTC on standby, spare equipment in room including spare 4.0 uncuffed trach. Sandra Bergman RCP * Bettye Egan, PT - 08/28/2022 3:22 PM EDT Physical Therapy Intervention Note Treatment Number PT: 3 Patient profile: Theresa Hollis is a 52 y.o. 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 She underwent tracheostomy, neck exploration, mandible excision, and fibula free flap reconstruction 08/21 with ENT and PRS. Total duration of encounter: 7 days Social History: Patient lives with Harinder in a single level home [place] [facility]. Has ~ 15 IRENE without rails. Normallyindependent without device. 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 They have two dogs - basset hound and corgi mix Precautions/Special Considerations: Full code, Neck should remain in neutral position, tracheostomy, DHT, PIV, wound vac to RLE, FARRUKH drain to R neck, TTWB in boot when out of bed, up in chair, AAT, NPO diet Mobility and Positioning Recommendations: Pt. to utilize FWW and standby assist for transfers with nursing. Please encourage up to chair for meal times as able. Walker boot/aircast when OOB; multpodus (blue boot) to RLE when in bed/at rest Bathroom for toileting Subjective: ???I really appreciate your encouragement. This is all really hard on me Objective: Pt seen for physical therapy treatment today and presented as follows: Pain: Tolerable throughout Vital Signs: stable t.o rx Behavior / Mood: alert and cooperative Oriented to: person, place, and date Follows commands: multi step and 100% of the time Attention: WFL Safety awareness: WFL Communication: gestures well, thumbs up and down, writing on whiteboard RASS: 0 CAM: neg Vision: WFLs, glasses worn Musculoskeletal: ROM: WFLS improving R ankle DF and PF AROM Sensation: intact except L side of face Tone: normal Strength: WFLS, improving R ankle DF/PF Bed Mobility: received up in chair Supine to Sit: n/a Sit to Supine: N/A Transfers: Sit to Stand: supervision - CGA Stand to Sit: supervision - CGA Bed to Chair: CGA ambulated around bed Gait: Distance: 120 feet Device Used: FWW Level of Assist: supervision Gait Comments: no overt LOB, steady gait, sneaker to LLE, walker boot to RLE Stairs: N/A Balance: Sitting Static: good Sitting Dynamic: good - independent at EOB Standing Static: good with single UE support Standing Dynamic / Gait: fair/good with FWW Self Care: N/A Education: patient educated on TDWB, use of walker boot, use of walker, ambulation, use of restroom and plan of care, with good understanding/demonstration. Patient status, treatment, and mobility recommendations discussed with nursing. Pt left in bedside recliner chair, with all needs met, with call ramirez in reach, and with family at the bedside following visit. Team Communication: communication with nursing staff pre/post session regarding readiness and response to therapy intervention. Assessment: Theresa Hollis was seen today for physical therapy intervention. Pt continues to be very pleasant and participatory in PT. She continues to communicate well and make needs known. She was able to progress in independence and overall activity tolerance from prior visit. . Educated on wBstatus with good ability to maintain during gait. Pain more controlled today allowing for further activity. Expect continued progress toward rehab goals, with DC home once medically ready. Pt will benefit from skilled therapy services throughout hospitalization to promote safety, independence, and provide developmental support/caregiver education. Messaged 1' team to clarify time untilprogression of Wt bearing, as well as to clarify TTWB vs. 20% wt bearing, per pt request. Wll plan to f.u tomorrow to progress gait to cx and potential stair training. Discharge Recommendations: Based on the current findings, Anticipated Discharge Disposition (PT): home with supervision when medically ready for hospital discharge. Discharge recommendation is based on the patient's current physical impairments, prior functional status, potential to return to prior level of function, patient motivation, reported home support, potential for functional gains, current level of endurance, reported home environment and anticipated trajectory of progress and may change based on patient progress during this hospitalization. Consult Recommendations: No other consults recommended at this time. Equipment Needs: Anticipated Equipment Needs at Discharge (PT): walker, front wheeled Transportation Needs: Car X Consult service will continue to follow patient. PT signing off. Recommendations above, page if further consultation required. Goals: Goals ongoing as of 08/28/22 unless otherwise noted Goals: To be achieved by 08/31/22: Pt. to demonstrate knowledge of safety limitations and precautions Pt. to demonstrate understanding of appropriate exercises. Pt. to perform supine to/from sitting EOB with modified independence MET 08/24 Pt. to perform sit to/from stand transfers with supervision and LRAD Pt. to ambulate 150 feet with supervision and least restrictive assistive device Pt. to ambulate up/down at least 3 step/stairs using least restrictive assistive device w/ CGA Plan: Therapy Frequency (PT): 2-4 times/wk for therapy as outlined in initial evaluation. Patient/family understand and agree with plan as stated above. Time IN / OUT: 1212 - 1250 Total Minutes, Physical Therapy: 38 Billing Code: ta x 3 Thank you for this consult. BETTYE EGAN, PT Pager: [phone] Physical Therapy Inpatient Rehabilitation Department * Chitra Gerardo RD - 08/28/2022 3:13 PM EDT Nutrition Progress Note Theresa Hollis is a 52 y.o. female admitted post op mandible resection, prosthesis, skin graft, and new tracheostomy. 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 Reason for Assessment: Follow-up Nutrition Recommendations: Enteral Nutrition (bolus feeds): Suggest bolus feeds: 300 ml of Complete Standard 1.4, 4 times per day plus 2 scoop of protein powder daily. Order pended Flush with 60 ml water before and after each feed to maintain patency and for hydration. Suggest 100 ml free water BID Compleat Standard 1.4 Total Volume Per Day: 1200 mL Scoops of Protein Powder: 2 Calories per Day: 1730 Protein per Day: 98 g Free Water mL per Day: 981 % RDI: 120 % Monitor hydration status on above TFs as they are concentrated. Pt may need additional fluids depending on IVFs, med flushes, p.o. Intake, etc. Daily BMP with Mg and Phos. Continue 1000 mcg cyanocobalamin daily. Monitor frequency of bowel movements. Daily weights. I was able to discuss plan with provider Cheryl Pacheco MD #[id number] . Current Nutrition Regimen: Active Orders Diet NPO diet (Give Meds) Frequency: Effective Now Number of Occurrences: Until Specified Assessment: Lab Results Component Value Date NA 137 08/26/2022 K 3.8 08/26/2022 CL 102 08/26/2022 CO2 25 08/26/2022 BUN 16 08/26/2022 CREATININE 0.51 (L) 08/26/2022 ESTGFR 113 08/26/2022 MAGNESIUM 0.87 08/26/2022 CALCIUM 8.5 08/26/2022 PHOS 2.6 08/26/2022 [id number] 213 (L) 08/22/2022 No results found for: POCGLU Patient Lines/Drains/Airways Status Active Nutritional LDAs Name Placement date Placement time Site Days Naso/Oral Tube 08/22/22 1815 nasogastric left nostril 08/22/22 1815 left nostril 6 Peripheral IV Line - Single Lumen 08/21/22 0838 18 gauge 08/21/22 0838 -- 7 Peripheral IV Line - Single Lumen 08/24/22 0100 cephalic vein (lateral side of arm), left 20 gauge 08/24/22 0100 -- 4 Closed/Suction Drain Right;Anterior Neck Bulb 15 Citizen Of [place] 08/21/22 1947 Neck 7 Physical Findings Skin: surgical incisions Oxygen Therapy / Airway Device: Heated trach collar Shift Pressure Injury Prevention Occiput: No Injury Thoracic Spine: No Injury Sacral: No Injury Ischial - left: No Injury Ischial - right: No Injury Heel - left: No Injury Heel - right: No Injury Elbow - left: No Injury Elbow - right: No Injury Device Sites: O2 sat monitor, IV sites Other Sites: FARRUKH, trached Last Bowel Movement: 08/27/22 Intake/Output Summary (Last 24 hours) at 08/28/2022 1529 Last data filed at 08/28/2022 0622 Gross per 24 hour Intake 7700 ml Output 25 ml Net 7675 ml Relevant medications: Continuous Scheduled tube feeding diet 275 mL Per NG tube 4 Times Daily free water bolus 100 mL Per NG tube BID protein powder 1 Scoop Per NG tube Daily enoxaparin 30 mg Subcutaneous Nightly cyanocobalamin (Vitamin B-12) 1,000 mcg Per NG tube Nightly melatonin 3 mg Per G Tube Daily after dinner levothyroxine 100 mcg Per NG tube Daily chlorhexidine 15 mL Oral TID pantothenic Ac-Min Oil-Pet,Hyd 1 each Topical (Top) BID lidocaine 2 patch Transdermal Q24H PRN oxyCODONE OR oxyCODONE, HYDROmorphone, diazePAM, cyclobenzaprine, polyethylene glycoL (MIRALAX) oral powder, magnesium sulfate OR magnesium sulfate, eezjhu-rvdgmsdm-uptcmjg DR AND sodium bicarbonate, sodium chloride 0.9 % (flush), lidocaine, ondansetron, prochlorperazine Anthropometrics: Admit Weight: 43.91 kg Estimated body mass index is 18.56 kg/m?? as calculated from the following: Height as of this encounter: 157.5 cm (5' 2). Weight as of this encounter: 46 kg (101 lb 8 oz). [place] Body Weight (IBW) (kg): 50 Wt Readings from Last 10 Encounters: 08/28/22 46 kg (101 lb 8 oz) 06/01/22 44.3 kg (97 lb 9.6 oz) 03/16/22 44.5 kg (98 lb 3.2 oz) 10/18/21 45.4 kg (100 lb) 10/05/21 46.1 kg (101 lb 9.6 oz) 09/05/21 46.1 kg (101 lb 11.2 oz) 08/18/21 43.1 kg (95 lb) 07/04/21 43.1 kg (95 lb) 03/07/21 43.1 kg (95 lb) 11/01/20 45.3 kg (99 lb 12.8 oz) Patient Vitals for the past 168 hrs: Weight 08/28/22 1500 46 kg (101 lb 8 oz) 08/23/22 0100 46.7 kg (102 lb 15.3 oz) 08/22/22 0500 46.9 kg (103 lb 6.3 oz) Weight Source: Bed Estimated / Assessed Needs: Kcal / K - 1635 Kcal (30 Kcal/Kg - 35 Kcal/Kg) Estimated Protein Needs: 70.05 - 93 g (1.5 g/Kg - 2.0 g/Kg) Nutrition intake and intake history / interview: 08/28: Discharge pended for Sun/ this week. Unsure if pt will be going home on TF, pending swallow attempt tomorrow that will determine if pt will needs a PEG or not. Will preemptively transitionto Complete 1.4 (standard formula) that pt will go home on if TF is needed. 08/25/22: Follow up for pt w/ Tfs. Due to bed transfer, pt did not receive bolus feeds yesterday as formula was not available- this was corrected this morning. Pt has concern of soy allergy which results in increased secretions; discussed the very small amount of soy oil in current formula. Discussedavailability of Compleat 1.4 but it has lower protein content- pt prefers to stay w/ current formula. Reviewed calorie provisions and suggest increasing to 35 kcal/kg- pt in agreement and also requests free water in an effort to thin secretions.Unclear of nutrition plan in moving towards discharge,if able to adv diet, pt has c/o many food intolerances; ( seafood, tomatoes , etc) if going home onTfs would consider Compleat 1.4 250 ml bolus 4X/day to provide 1500 kcal & 100 g protein. 08/24: Pt seen w/ continuous TF infusing at goal rate of 47 mL/hr. Pt denies issues w/ tolerance. Bolus feeding recs as requested per team above. Will monitor K on labs tomorrow and switch TF formula as needed to increase K+ provision. 08/22: Consulted for TEN recommendations. Do not see enteral access at this time in the [facility]. Nutrition Focused Physical Exam: Not performed Malnutrition Diagnosis: Not enough data to assess (Fransisca, JPEN J Parenteral Enteral Nutr. 2012 July; 36(3): 273-83) Nutrition to continue to follow up while inpatient Chitra Howell RDN Clinical Nutrition * Jessica Cazares - 08/28/2022 2:41 PM EDT Geothermal Operations Engineer Encounter Note Patient Name: Theresa Hollis : [id number] MR#: [id number] Admit Date: 08/21/2022 6:10 AM Hospital Day 7 days Narrative: This insurance underwriter responded to a spiritual care consult. Assessment: Patient desired to have conversation with caustic purification operator alone, she utilized the white board for clear communication, reflecting on and processing the emotions of her experience. Intervention and Outcome: This insurance underwriter provided spiritual care through reflective listening, emotional validation and words ofblessing. Follow-up: Patient voiced appreciation for visit and let this insurance underwriter know she would reach out to Rns to page if a caustic purification operator visit was desired again. Time in Direct Care: 20 min Jessica Cazares 08/28/2022 * Augie García - 08/28/2022 2:33 PM EDT Respiratory Care Tracheostomy Note O2 Device: Heated trach collar O2 Flow Rate (L/min): 40 L/min FiO2 (%): 21 % SpO2: 98 % Resp: 16 Airway Type: Shiley Size: Adult Trach: 6.0 Style: UN (Disposable) Securement: Foam Trach Ties Skin Integrity: WDL Capped: Intermittent capping trials Trach care: Performed Trach to Go Bag: Spare trach and equipment is in place. Secretions: Moderate Thick Yellow Assessment: Received pt this morning on HTC 40 lpm / 21% FiO2. No changes made to HTC settings. Tolerated capping for short durations ~ 5 minutes at a time (Patient driven to take small steps towards longer trials). Plan: Continue to support pt w/ heat/humidification and perform trach care as indicated. Capping as tolerated per ENT note. * Toño Pacheco MD - 08/28/2022 8:16 AM EDT OTOLARYNGOLOGY - HEAD & NECK SURGERY DAILY PROGRESS NOTE Name: Theresa Hollis Age/Sex: 52 y.o. female Attending: Roberth Lee MD Hospital Day: 8 7 Days Post-Op Patient ID/Reason for Admission Theresa Hollis is a 52 y.o. 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 She underwent tracheostomy, neck exploration, mandible excision, and fibula free flap reconstruction 08/21 with ENT and PRS. Interval History - No acute events overnight - Tolerating capping intermittently - No flap concerns - Tolerating bolus TF - AF, VSS - Would like to speak with BIT/caustic purification operator regarding adjustment to illness Vitals Last value 24hr Range Temperature: 36.7 ??C (98.1 ??F) Temp: [36.4 ??C (97.5 ??F)-37.9 ??C (100.2 ??F)] Heart Rate: 85 Heart Rate: -- Blood Pressure: 97/60 BP: (94-121)/(58-77) Respiratory Rate: 16 Resp: [14-18] SpO2: 98 % SpO2: [96 %-98 %] Intake & Output Intake/Output Summary (Last 24 hours) at 08/28/2022 0817 Last data filed at 08/28/2022 0622 Gross per 24 hour Intake 7700 ml Output 25 ml Net 7675 ml Physical Exam General: NAD, non-ill appearing, resting comfortably in bed, less anxious today Face: Symmetric without dysmorphic features. Edema much improved. Eyes: EOMI, conjunctiva healthy. L periorbital edema. Ears: Auricles symmetric, no lesions Nose: Patent nares, grossly normal appearance Oral Cavity/Pharynx: Mucosa is pink, oropharynx symmetric. Mandibular suture lines intact without apparent dehiscence, flap is pink, warm, and well perfused. Scant granulation tissue anteriorly Neck: Soft, trachea midline. Tracheostomy tube secure in place with soft straps, capped. Chest: Non-labored breathing, regular rate on HTC Neuro: Alert & oriented, moving extremities x 4, communicating via writing and speech Labs Recent Labs 08/26/22 0539 08/25/22 0907 WBC 6.0 6.1 HGB 8.4* 8.7* HCT 24.4* 25.0* PLATELET 257 209 NA 137 136 K 3.8 3.4* CL 102 100 CO2 25 23 BUN 16 9 CREATININE 0.51* 0.50* GLUCOSE 100 85 CALCIUM 8.5 8.4* MAGNESIUM 0.87 0.82 PHOS 2.6 2.8 Imaging None. ASSESSMENT & PLAN Theresa Hollis is a 52 y.o. female s/p neck exploration, tracheostomy, mandible excision, and fibula free flap reconstruction, 7 Days Post-Op. Theresa is doing very well. She is tolerating trach capping intermittently. Will consult BIT/caustic purification operator this AM to provide support. Swallow pending per PRS. Surgical/Head&Neck: Neck should remain in neutral position Trach suctioning and trach care per RT. No HTC if trach capped. Apply aquaphor to incisions Peridex mouth rinse--OK for saline rinses as peridex mckeon OK for trach capping Pending OK for swallow with PRS Neurologic: Pain controlled with lidoderm patch, oxycodone PRN, dilaudid PRN. Cardiovascular: PAMELA Pulmonary: Oxygenation on RA Gastrointestinal: Zofran PRN Genitourinary: Voiding spontaneously Musculoskeletal: PAMELA Fluids/Electrolytes: - Nutrition: NPO diet (Give Meds) Bolus TF. Infectious Disease: WBC wnl, Unasyn x 5 days; Peridex Hematology: Hemoglobin wnl Endocrine: Home levothyroxine Consults: PRS Lines: Patient Lines/Drains/Airways Status Active Tubes/Lines/Drains Name Placement date Placement time Site Days Peripheral IV Line - Single Lumen 08/21/22 0838 18 gauge 08/21/22 0838 -- 7 Peripheral IV Line - Single Lumen 08/24/22 0100 cephalic vein (lateral side of arm), left 20 gauge 08/24/22 0100 -- 4 Closed/Suction Drain Right;Anterior Neck Bulb 15 Citizen Of [place] 08/21/22 1947 Neck 7 Naso/Oral Tube 08/22/22 181 nasogastric left nostril 08/22/22 1815 left nostril 6 Trach Airway 08/25/22 1616 08/25/22 1616 -- 3 Prophylaxis: Lovenox, SCD, activity per PRS Disposition: Floor status, Attempt Cardiopulmonary Resuscitation - Inpatient Discharge: Plan for d/c as early as Sunday; Needs trach supplies, suction, VNA; Follow-up ENT Toño Pacheco MD, PGY1 08/28/22 8:17 AM ENT Team Pager: [phone] * Skylar Cloud, SPA TECHNICIAN - 08/28/2022 7:53 AM EDT Images from the original note were not included. Plastic Surgery Inpatient Progress Note (Team Pager #[phone] Date of surgery: 08/21/22 CC/Procedure(s): Oromandibular reconstruction with right fibula free flap, skin graft from R thigh to right leg and submental opening Surgeon: Luz Elena Subjective/IE: LASHON, restless legs kept her up last night, otherwise no issues. RLE multipodis boot on. She does not take additional medication for restless legs. Objective: BP 97/60 (BP Location (NBP): Right arm, Patient Position: Lying) Pulse 85 Temp 36.7 ??C (98.1 ??F) (Axillary) Resp 16 Ht 157.5 cm (5' 2) Wt 46.7 kg (102 lb 15.3 oz) SpO2 98% BMI 18.83 kg/m?? Intake/Output Summary (Last 24 hours) at 08/28/2022 0753 Last data filed at 08/28/2022 0622 Gross per 24 hour Intake 7700 ml Output 25 ml Net 7675 ml General: Resting comfortably in no acute distress. Neuro: Awake, alert, responds to questions appropriately. CV: RRR on monitor Pulm: non- labored breathing, trach HEENT: Flap warm and well perfused with strong doppler signal, skin paddle euchromic with donor site, skin graft appears healthy, inset incision intact, neck incision intact with shayna, drain x1 w/serosanguinous output. L periorbital edema stable. RLE: VAC removed 08/27. Dressing CDI 6/11 photo RLE Labs: Recent Labs 08/26/22 0539 WBC 6.0 HGB 8.4* HCT 24.4* NA 137 K 3.8 CL 102 BUN 16 CREATININE 0.51* CO2 25 GLUCOSE 100 ANIONGAP 10 CALCIUM 8.5 Micro: N/A Imaging/Studies: N/A Assessment: Theresa Hollis is a 52 y.o. female s/p oromandibular reconstruction with a fibula free flap 08/21. Recovering well overall. Plan: Q4h flap checks Dressings/Drains: Strip and record drain output. Allevyn off 09/04. RLE - vac off 08/27 now bacitracin, xeroform, sada change every other day, next due 08/29 Antibiotics: Unasyn x5d Diet: Continue TF as tolerated Activity: TTWB in CAM boot when out of bed DVT prophylaxis: SCD left leg, lovenox May start PT Remainder of care per primary team INFORMATION DEVELOPER - Hold for now (per GLF) HOld on GT for now (per GLF) Skylar Cloud APRN Plastic Surgery Inpatient Team Pager #[phone] * Skylar Cloud APRN - 08/28/2022 6:53 AM EDT Images from the original note were not included. Plastic Surgery Inpatient Progress Note (Team Pager #[phone] Date of surgery: 08/21/22 CC/Procedure(s): Oromandibular reconstruction with right fibula free flap, skin graft from R thigh to right leg and submental opening Surgeon: Luz Elena Subjective/IE: LASHON, restless legs kept her up last night, otherwise no issues. RLE multipodis boot on. She does not take additional medication for restless legs. Objective: BP 97/60 (BP Location (NBP): Right arm, Patient Position: Lying) Pulse 85 Temp 36.7 ??C (98.1 ??F) (Axillary) Resp 14 Ht 157.5 cm (5' 2) Wt 46.7 kg (102 lb 15.3 oz) SpO2 97% BMI 18.83 kg/m?? Intake/Output Summary (Last 24 hours) at 08/28/2022 0653 Last data filed at 08/28/2022 0622 Gross per 24 hour Intake 7700 ml Output 25 ml Net 7675 ml General: Resting comfortably in no acute distress. Neuro: Awake, alert, responds to questions appropriately. CV: RRR on monitor Pulm: non- labored breathing, trach HEENT: Flap warm and well perfused with strong doppler signal, skin paddle euchromic with donor site, skin graft appears healthy, inset incision intact, neck incision intact with shayna, drain x1 w/serosanguinous output. L periorbital edema stable. RLE: VAC removed 08/27. Dressing CDI 08/27 photo RLE Labs: Recent Labs 08/26/22 0539 WBC 6.0 HGB 8.4* HCT 24.4* NA 137 K 3.8 CL 102 BUN 16 CREATININE 0.51* CO2 25 GLUCOSE 100 ANIONGAP 10 CALCIUM 8.5 Micro: N/A Imaging/Studies: N/A Assessment: Theresa Hollis is a 52 y.o. female s/p oromandibular reconstruction with a fibula free flap 08/21. Recovering well overall. Plan: Q4h flap checks Dressings/Drains: Strip and record drain output. Allevyn off 09/04. RLE - vac off 08/27 now bacitracin, xeroform, sada change every other day, next due 08/29 Antibiotics: Unasyn x5d Diet: Continue TF as tolerated Activity: TTWB in CAM boot when out of bed DVT prophylaxis: SCD left leg, lovenox May start PT Remainder of care per primary team INFORMATION DEVELOPER pending discussion with Dr. Luz Elena Cloud APRN Plastic Surgery Inpatient Team Pager #[phone] * Sandra Bergman, [facility] - 08/28/2022 5:27 AM EDT RT Tracheostomy Note Oxygen Delivery: Interface: Heated trach collar Flow: 40 L/min FiO2: 21 % Barrier Used: drain sponge Last Chest X-ray: Results for orders placed during the hospital encounter of 08/21/22 XR Chest One View Narrative EXAMINATION: XR CHEST ONE VIEW CLINICAL HISTORY: s/p multiple enteral tube placements, want to rule out PTX TECHNIQUE: 1 view of the chest COMPARISON: Chest radiograph 01/19/2014 FINDINGS: Tracheostomy tube in place. Faint left basilar opacity.. No pleural effusion or pneumothorax. The cardiomediastinal silhouette, taras, and pulmonary vasculature are within normal limits. Surgical changes in the left supraclavicular region. Partially visualized dilated loops of large bowel are present in the LEFT upper quadrant Impression 1. Faint left basilar opacity which can be seen in atelectasis or pneumonitis. 2. No pneumothorax. 3. Distended loops of colon in the LEFT upper quadrant Preliminary report signed by: Hermelindo Garcia at 08/22/2022 5:35 PM I have personally reviewed the image(s) and the resident's interpretation and agree with the findings, LILY CELESTE MD at 08/22/2022 5:39 PM Thank you for letting us participate in the care of this patient. If you are a health care provider and have any questions regarding this report, please contact the number below. For patients who have questions please contact the health director critical care that requested your imaging first. Airway: Trach Airway 08/25/22 1616 (Active) Tracheal Airway Size Verfication 6 mm 08/28/22 0334 Appearance clean 08/28/22 0334 Tube Securement foam trach ties 08/28/22 0334 Trach Cap Status uncapped/unplugged 08/28/22 0334 Tube Care/Reposition inner cannula changed;site care done;securement device changed 08/27/22 204 Manual Resuscitator at Bedside Yes 08/28/22 0334 Spare Trach At Bedside Yes 08/28/22 0334 Trach ToGo kit at Bedside Yes 08/28/22 0334 Emergency Airway Sign at [facility]? Yes 08/28/22 0334 Trach Care Performed: Trach Airway 08/25/22 1616-Tube Care/Reposition: inner cannula changed, site care done, securement device changed [REMOVED] Trach Airway 08/21/22 1948-Tube Care/Reposition: inner cannula changed, site care done No changes overnight. Sandra Bergman RCP * Rina Vang, DOSIER OPERATOR - 08/27/2022 3:52 PM EDT RT Tracheostomy Note Oxygen Delivery: Interface: Heated trach collar Flow: 40 L/min FiO2: 21 % Skin Assessment: WNL Airway: Trach Airway 08/25/22 1616 (Active) Tracheal Airway Size Verfication 6 mm 08/27/22830 Appearance clean 08/27/22830 Tube Securement foam trach ties 08/27/22830 Trach Cap Status uncapped/unplugged 08/27/22830 Tube Care/Reposition inner cannula changed;site care done 08/27/22830 Manual Resuscitator at Bedside Yes 08/27/22830 Spare Trach At Bedside Yes 08/27/22830 Trach ToGo kit at Bedside Yes 08/27/22830 Emergency Airway Sign at [facility]? Yes 08/27/22 08 Trach Care Performed: Trach Airway 08/25/22 1616-Tube Care/Reposition: inner cannula changed, site care done [REMOVED] Trach Airway 08/21/22 194-Tube Care/Reposition: inner cannula changed, site care done Secretions: Middle of the road, osorio Assessment: Received Theresa with the above trach in place. Theresa and I have developed a good rapportthe last few days, and she is very motivated to progress in a positive direction. She has been making a valiant effort to cap her trach, but is meeting barriers. She reports that she immediately feels like she can not get a good breath in, but that exhaling is the most difficult for her. After a short period of time (5-10 minutes) the cap pops off, sometimes without even coughing. I did reach outto the care team regarding the idea of downsizing her trach due to these concerns. It was decided to leave the 6UN in place. During my afternoon assessments, Theresa and I had a lengthy discussion about her trach, her fears, her progress, and what she needs to do. She feels like she is failing capping because she cannot tolerate it for any period of time (she reports a 5 min, 10 min, and 15 min capping yesterday). I assured her that she is not failing and that she is doing all the right things. She is ambulating when possible, and very receptive to tips and tricks to help. Theresa was willing to cap with me present so I can objectively see what goes on when she caps throughout the day. I placed the cap after ensuring her secretions were cleared, and almost immediately she coughed and popped the cap off. I let her catch her breath, and placed the cap a second time. This time, I was able to observe some air movement through the mouth and nose, but it was limited. Immediately her WOB increased. She was able to phonate well, but did get winded and wanted to stop in <2 minutes. I removed the cap myself to feel for back pressure and a notable amount was appreciated. Theresa did also write to me that she has valiumfor her panic attacks that she has when capping, but that she does feel her panicking originates from being unable to get a good breath of air rather than her anxiety. If she uncaps, she feels better. Plan: Continue to monitor and support. Recommend downsizing trach if possible, and consulting speech as early as possible. Rina Vang RCP * Ilda Estrada MD - 08/27/2022 12:44 PM EDT OTOLARYNGOLOGY - HEAD & NECK SURGERY DAILY PROGRESS NOTE Name: Theresa Hollis Age/Sex: 52 y.o. female Attending: Roberth Lee MD Hospital Day: 7 6 Days Post-Op Patient ID/Reason for Admission Theresa Hollis is a 52 y.o. 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 She underwent tracheostomy, neck exploration, mandible excision, and fibula free flap reconstruction 08/21 with ENT and PRS. Interval History - Trach intermittently capped - No acute events overnight - AF, VSS - Reviewed upcoming plans for the week with patient and family - No additional complaints Vitals Last value 24hr Range Temperature: 36.8 ??C (98.3 ??F) Temp: [36.8 ??C (98.2 ??F)-37.2 ??C (99 ??F)] Heart Rate: 85 Heart Rate: -- Blood Pressure: 94/58 BP: (94-133)/(58-85) Respiratory Rate: 16 Resp: [16] SpO2: 98 % SpO2: [96 %-99 %] Intake & Output Intake/Output Summary (Last 24 hours) at 08/27/2022 1244 Last data filed at 08/27/2022 0400 Gross per 24 hour Intake -- Output 10 ml Net -10 ml Physical Exam General: NAD, non-ill appearing, resting comfortably in bed, less anxious today Face: Symmetric without dysmorphic features. Edema much improved. Eyes: EOMI, conjunctiva healthy. L periorbital edema. Ears: Auricles symmetric, no lesions Nose: Patent nares, grossly normal appearance Oral Cavity/Pharynx: Mucosa is pink, oropharynx symmetric. Mandibular suture lines intact without apparent dehiscence, flap is pink, warm, and well perfused. Scant granulation tissue anteriorly Neck: Soft, trachea midline. Tracheostomy tube secure in place with soft straps, capped. Chest: Non-labored breathing, regular rate on HTC Neuro: Alert & oriented, moving extremities x 4, communicating via writing and speech Labs Recent Labs 08/26/22 0539 08/25/22 0907 WBC 6.0 6.1 HGB 8.4* 8.7* HCT 24.4* 25.0* PLATELET 257 209 NA 137 136 K 3.8 3.4* CL 102 100 CO2 25 23 BUN 16 9 CREATININE 0.51* 0.50* GLUCOSE 100 85 CALCIUM 8.5 8.4* MAGNESIUM 0.87 0.82 PHOS 2.6 2.8 Imaging None. ASSESSMENT & PLAN Theresa Hollis is a 52 y.o. female s/p neck exploration, tracheostomy, mandible excision, and fibula free flap reconstruction, 6 Days Post-Op. Theresa is doing very well. She is tolerating trach capping intermittently, she had to uncap overnight due to secretions, continue capping trials, no adjustment to the trach for now. Anticipate possible swallow early next week followed by likely discharge. Surgical/Head&Neck: Neck should remain in neutral position Trach suctioning and trach care per RT. No HTC if trach capped. Apply aquaphor to incisions Peridex mouth rinse--OK for saline rinses as peridex mckeon OK for trach capping Neurologic: Pain controlled with lidoderm patch, oxycodone PRN, dilaudid PRN. Cardiovascular: PAMELA Pulmonary: Oxygenation on RA Gastrointestinal: Zofran PRN Genitourinary: Voiding spontaneously Musculoskeletal: PAMELA Fluids/Electrolytes: - Nutrition: NPO diet (Give Meds) Bolus TF. Infectious Disease: WBC wnl, Unasyn x 5 days; Peridex Hematology: Hemoglobin wnl Endocrine: Home levothyroxine Consults: PRS Lines: Patient Lines/Drains/Airways Status Active Tubes/Lines/Drains Name Placement date Placement time Site Days Peripheral IV Line - Single Lumen 08/21/22 0838 18 gauge 08/21/22 0838 -- 6 Peripheral IV Line - Single Lumen 08/24/22 0100 cephalic vein (lateral side of arm), left 20 gauge 08/24/22 0100 -- 3 Closed/Suction Drain Right;Anterior Neck Bulb 15 Citizen Of [place] 08/21/22 1947 Neck 6 Naso/Oral Tube 08/22/22 1815 nasogastric left nostril 08/22/22 1815 left nostril 5 Trach Airway 08/25/22 1616 08/25/22 1616 -- 2 Prophylaxis: Lovenox, SCD, activity per PRS Disposition: Floor status, Attempt Cardiopulmonary Resuscitation - Inpatient Discharge: Plan for d/c as early as Sunday; Needs trach supplies, suction, VNA; Follow-up ENT Ilda Estrada MD, PGY3 08/27/22 12:44 PM ENT Team Pager: [phone] * Sayra Dumont MD - 08/27/2022 7:54 AM EDT Plastic Surgery Inpatient Progress Note (Team Pager #[phone] Date of surgery: 08/21/22 CC/Procedure(s): Oromandibular reconstruction with right fibula free flap, skin graft from R thigh to right leg and submental opening Surgeon: Luz Elena Subjective/IE: LASHON, patient offers no complaints this morning. Objective: BP 108/69 (BP Location (NBP): Left arm, Patient Position: Lying) Pulse 85 Temp 36.8 ??C (98.2 ??F) (Oral) Resp 16 Ht 157.5 cm (5' 2) Wt 46.7 kg (102 lb 15.3 oz) SpO2 96% BMI 18.83 kg/m?? Intake/Output Summary (Last 24 hours) at 08/27/2022 0754 Last data filed at 08/27/2022 0400 Gross per 24 hour Intake -- Output 10 ml Net -10 ml General: Resting comfortably in no acute distress. Neuro: Awake, alert, responds to questions appropriately. CV: RRR on monitor Pulm: non- labored breathing, trach HEENT: Flap warm and well perfused with strong doppler signal, skin paddle euchromic with donor site, skin graft appears healthy, inset incision intact, neck incision intact with shayna, drain x1 w/serosanguinous output. L periorbital edema stable. RLE: Wound vac in place to lower leg and holding suction. Allevyn in place to thigh with minimal strikethrough. Labs: Recent Labs 08/26/22 0539 WBC 6.0 HGB 8.4* HCT 24.4* NA 137 K 3.8 CL 102 BUN 16 CREATININE 0.51* CO2 25 GLUCOSE 100 ANIONGAP 10 CALCIUM 8.5 Micro: N/A Imaging/Studies: N/A Assessment: Theresa Hollis is a 52 y.o. female s/p oromandibular reconstruction with a fibula free flap 08/21. Recovering well overall. Plan: Q4h flap checks Dressings/Drains: Strip and record drain output. Allevyn off 09/04. Will remove wound vac today. Antibiotics: Unasyn x5d Diet: Continue TF as tolerated Activity: TTWB in boot when out of bed DVT prophylaxis: SCD left leg, lovenox May start PT Remainder of care per primary team Sayra Dumont MD Plastic Surgery Inpatient Team Pager #[phone] * Estefany Larson, [facility] - 08/27/2022 5:32 AM EDT Respiratory Care Airway Note Oxygen Delivery: Interface: Heated trach collar Flow: 40 L/min FiO2: 21 % Airway: Trach airway: Size: 6, Type: Shiley, Style: UN, Skin Integrity: WDL TTG kit, emergency equipment and airway sign at bedside Last change: 08/25 from 6CN to 6UN Trach Care Performed: inner cannula changed, site care done Secretions: thick per patient HPI: s/p tracheostomy, neck exploration, mandible excision, and fibula free flap reconstruction 08/21with ENT and PRS. PMH of SCC of the tongue 24 hr Events: Reportedly tolerating capping for short periods of time Relevant Medications: Dilaudid and Oxycodone PRN for pain, Ativan PRN for anxiety Assessment: Theresa seen resting in bed, able to communicate with white board. She was asking about the need for such warm humidity. Explained that she may be able to transition to a cool aerosol humidity in the future if her secretions weren't too copious/thick. She states that her secretions have been horrible even before trach placement, she says they changed when she started radiation treatment. She understands the importance of humidity for secretion management. No other concerns at this time. Plan: Continue current support. Estefany Larson RCP * Rina Vang RCP - 08/26/2022 4:06 PM EDT RT Tracheostomy Note Oxygen Delivery: Interface: Heated trach collar Flow: 40 L/min FiO2: 21 % Skin Assessment: WNL Airway: Trach Airway 08/25/22 1616 (Active) Tracheal Airway Size Verfication 6 mm 08/26/22 075 Appearance clean;dry 08/26/22 075 Tube Securement foam trach ties 08/26/22 075 Trach Cap Status uncapped/unplugged 08/26/22 075 Tube Care/Reposition site care done;inner cannula changed 08/26/22 075 Manual Resuscitator at Bedside Yes 08/26/22 075 Spare Trach At Bedside Yes 08/26/22 075 Trach ToGo kit at Bedside Yes 08/26/22 075 Emergency Airway Sign at [facility]? Yes 08/26/22 0759 Trach Care Performed: Trach Airway 08/25/22 1616-Tube Care/Reposition: site care done, inner cannula changed [REMOVED] Trach Airway 08/21/22 1948-Tube Care/Reposition: inner cannula changed, site care done Secretions: [place] of the road, managed well by pt. Assessment: Received Theresa with the above trach in place. Discussed capping with her she is tolerating the cap for short periods of time. Plan: Continue to monitor and support. Rina Vang RCP * Kelly Laguna MD - 08/26/2022 1:21 PM EDT Plastic Surgery Inpatient Progress Note (Team Pager #[phone] Date of surgery: 08/21/22 CC/Procedure(s): Oromandibular reconstruction with right fibula free flap, skin graft from R thigh to right leg and submental opening Surgeon: Luz Elena Subjective/IE: LASHON, patient offers no complaints this morning. Objective: BP 111/63 (BP Location (NBP): Left arm, Patient Position: Sitting) Pulse 85 Temp 36.5 ??C (97.7??F) (Axillary) Resp 16 Ht 157.5 cm (5' 2) Wt 46.7 kg (102 lb 15.3 oz) SpO2 98% BMI 18.83 kg/m?? Intake/Output Summary (Last 24 hours) at 08/26/2022 1321 Last data filed at 08/25/2022 1600 Gross per 24 hour Intake 0 ml Output 5 ml Net -5 ml General: Resting comfortably in no acute distress. Neuro: Awake, alert, responds to questions appropriately. CV: RRR on monitor Pulm: non- labored breathing, trach HEENT: Flap warm and well perfused with strong doppler signal, skin paddle euchromic with donor site, skin graft appears healthy, inset incision intact, neck incision intact with shayna, drain x1 w/serosanguinous output. L periorbital edema stable. RLE: Wound vac in place to lower leg and holding suction. Allevyn in place to thigh with minimal strikethrough. Labs: Recent Labs 06/10/23 0539 WBC 6.0 HGB 8.4* HCT 24.4* NA 137 K 3.8 CL 102 BUN 16 CREATININE 0.51* CO2 25 GLUCOSE 100 ANIONGAP 10 CALCIUM 8.5 Micro: N/A Imaging/Studies: N/A Assessment: Theresa Hollis is a 52 y.o. female s/p oromandibular reconstruction with a fibula free flap 08/21. Recovering well overall. Plan: Q4h flap checks Dressings/Drains: Strip and record drain output. Vac off 08/26. Allevyn off 09/04 Antibiotics: Unasyn x5d Diet: Continue TF as tolerated Activity: TTWB in boot when out of bed DVT prophylaxis: SCD left leg, lovenox May start PT Remainder of care per primary team Sayra Dumont MD Plastic Surgery Inpatient Team Pager #[phone] Attending: Pt seen and examined with Dr Dumont. I agree with the plan as outlined. Kelly Laguna MD Plastic Surgery * Ilda Estrada MD - 08/26/2022 7:41 AM EDT OTOLARYNGOLOGY - HEAD & NECK SURGERY DAILY PROGRESS NOTE Name: Theresa Hollis Age/Sex: 52 y.o. female Attending: Roberth Lee MD Hospital Day: 6 5 Days Post-Op Patient ID/Reason for Admission Theresa Hollis is a 52 y.o. 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 She underwent tracheostomy, neck exploration, mandible excision, and fibula free flap reconstruction 08/21 with ENT and PRS. Interval History - Trach changed to cuffless yesterday, tolerating capping - No acute events overnight - Swelling continues to improve - No flap concerns - AF, VSS - No additional complaints Vitals Last value 24hr Range Temperature: 36.6 ??C (97.9 ??F) Temp: [36.6 ??C (97.9 ??F)-37 ??C (98.6 ??F)] Heart Rate: 85 Heart Rate: -- Blood Pressure: 101/59 BP: (98-131)/(52-79) Respiratory Rate: 16 Resp: [16-19] SpO2: 96 % SpO2: [93 %-97 %] Intake & Output Intake/Output Summary (Last 24 hours) at 08/26/2022 1134 Last data filed at 08/25/2022 1600 Gross per 24 hour Intake 0 ml Output 5 ml Net -5 ml Physical Exam General: NAD, non-ill appearing, resting comfortably in bed, less anxious today Face: Symmetric without dysmorphic features. Edema much improved. Eyes: EOMI, conjunctiva healthy. L periorbital edema. Ears: Auricles symmetric, no lesions Nose: Patent nares, grossly normal appearance Oral Cavity/Pharynx: Mucosa is pink, oropharynx symmetric. Mandibular suture lines intact without apparent dehiscence, flap is pink, warm, and well perfused. Scant granulation tissue anteriorly Neck: Soft, trachea midline. Tracheostomy tube secure in place with soft straps, capped. Chest: Non-labored breathing, regular rate on HTC Neuro: Alert & oriented, moving extremities x 4, communicating via writing and speech Labs Recent Labs 08/26/22 0539 08/25/22 0907 WBC 6.0 6.1 HGB 8.4* 8.7* HCT 24.4* 25.0* PLATELET 257 209 NA 137 136 K 3.8 3.4* CL 102 100 CO2 25 23 BUN 16 9 CREATININE 0.51* 0.50* GLUCOSE 100 85 CALCIUM 8.5 8.4* MAGNESIUM 0.87 0.82 PHOS 2.6 2.8 Imaging None. ASSESSMENT & PLAN Theresa Hollis is a 52 y.o. female s/p neck exploration, tracheostomy, mandible excision, and fibula free flap reconstruction, 5 Days Post-Op. Theresa is doing very well. She is tolerating trach capping intermittently, she had to uncap overnight due to secretions, continue capping trials. Anticipate possible swallow early next week followed by likely discharge. Surgical/Head&Neck: Neck should remain in neutral position Trach suctioning and trach care per RT. No HTC if trach capped. Apply aquaphor to incisions Peridex mouth rinse--OK for saline rinses as peridex mckeon OK for trach capping Neurologic: Pain controlled with lidoderm patch, oxycodone PRN, dilaudid PRN. Cardiovascular: PAMELA Pulmonary: Oxygenation on RA Gastrointestinal: Zofran PRN Genitourinary: Voiding spontaneously Musculoskeletal: PAMELA Fluids/Electrolytes: - Nutrition: NPO diet (Give Meds) Bolus TF. Infectious Disease: WBC wnl, Unasyn x 5 days; Peridex Hematology: Hemoglobin wnl Endocrine: Home levothyroxine Consults: PRS Lines: Patient Lines/Drains/Airways Status Active Tubes/Lines/Drains Name Placement date Placement time Site Days Peripheral IV Line - Single Lumen 08/21/22 0838 18 gauge 08/21/22 0838 -- 5 Peripheral IV Line - Single Lumen 08/24/22 0100 cephalic vein (lateral side of arm), left 20 gauge 08/24/22 0100 -- 2 Closed/Suction Drain Right;Anterior Neck Bulb 15 Citizen Of [place] 08/21/22 1947 Neck 5 Naso/Oral Tube 08/22/22 1815 nasogastric left nostril 08/22/22 1815 left nostril 4 Trach Airway 08/25/22 1616 08/25/22 1616 -- 1 Prophylaxis: Lovenox, SCD, activity per PRS Disposition: Floor status, Attempt Cardiopulmonary Resuscitation - Inpatient Discharge: Plan for d/c TBD; Needs trach supplies, suction, VNA; Follow-up ENT Ilda Estrada MD, PGY3 08/26/22 11:34 AM ENT Team Pager: [phone] * Sarita Spence, [facility] - 08/26/2022 4:25 AM EDT RT Tracheostomy Note Oxygen Delivery: Interface: Heated trach collar Flow: 40 L/min FiO2: 21 % Skin Assessment: Barrier Used: None. Trach changed Inhaled Medications: None Airway: Trach Airway 08/25/22 1616 (Active) Tracheal Airway Size Verfication 6 mm 08/26/22256 Appearance clean;dry 08/26/22256 Tube Securement foam trach ties 08/26/22256 Trach Cap Status uncapped/unplugged 08/26/22 0257 Manual Resuscitator at Bedside Yes 08/26/22 0257 Spare Trach At Bedside Yes 08/26/22 0257 Trach ToGo kit at Bedside Yes 08/26/22 0257 Emergency Airway Sign at [facility]? Yes 08/26/22 0257 Trach Care Performed: Trach Airway 08/25/22 1616-Tube Care/Reposition: ( changed inner cannula with trach exchange at 1600) [REMOVED] Trach Airway 08/21/22 194-Tube Care/Reposition: inner cannula changed, site care done Secretions: Scant Assessment: Patient is doing well on current settings. Plan: Increase capped time to lead to potential decannulation. Sarita Spence RCP * Rina Vang RCP - 08/25/2022 4:15 PM EDT RT Tracheostomy Note Oxygen Delivery: Interface: Heated trach collar Flow: (S) 40 L/min FiO2: 21 % Skin Assessment: WNL Airway: Trach Airway 08/21/221947 (Active) Tracheal Airway Size Verfication 6 mm 08/25/22 1330 Appearance clean 08/25/22 1330 Tube Securement sutures 08/25/22 1330 Cuff Pressure (cm H2O/mLH2O) 0 08/25/22 1330 Trach Cap Status uncapped/unplugged 08/25/22 1330 Tube Care/Reposition inner cannula changed;site care done 08/25/22 1330 Manual Resuscitator at Bedside Yes 08/25/22 1330 Spare Trach At Bedside Yes 08/25/22 1330 Trach ToGo kit at Bedside Yes 08/25/22 1330 Emergency Airway Sign at [facility]? Yes 08/25/22 1330 Trach Care Performed: Trach Airway 08/21/22 1948-Tube Care/Reposition: inner cannula changed, site care done Secretions: Thin/yellow Assessment: Received patient with 6CN in placed, team replaced with 6UN. Plan: Continue to monitor and support. Rina Vang RCP * Ilda Estrada MD - 08/25/2022 4:14 PM EDT Pre-Procedure Dx: H/O tracheostomy (Z98.890) Post-procedure Dx: same Procedure: Tracheostomy Tube Change ([id number]) Pre-procedure checklist: Correct Patient Correct time Current Trach tube Correct new trach tube Backup trach available Respiratory therapy notified Additional equipment: 10cc syringe Suction functioning (flexible and yankour) Flashlight available and functioning Surgilube Trach ties Face Masks Gauze, saline, mepilex Suture removal kit Tracheostomy change procedure note: Once all of the above were checked the equipment was brought to the bed and the procedure was begun. The patient was positioned in bed with the bed flat and her neck extended. Any sutures holding the trachplate in place were removed. The cuff was confirmed to be deflated. The existing trach tube wasremoved and the sheila-stomal skin was cleansed. The tract was examined, findings below. A new trach was passed into the stoma and the ties were secured. Correct placement was confirmed by appropriate feel, cough response, and feeling the air movement with respiration. The patient tolerated the procedure well without complications. Findings: -6 cuffed size trach tube removed. - 6 uncuffed size trach placed without difficulty - Sheila-stomal skin intact. Stoma healthy appearing without false passages or significant granulation tissue. Recommendations: -Ok for routine trach changes. -Keep trach ties snug (should only allow 2 fingers to squeeze under) - Ok for PMV/capping Follow-Up: ENT patient. We will continue to see daily * Azul Mason RD - 08/25/2022 1:09 PM EDT Nutrition Progress Note Theresa Hollis is a 52 y.o. female admitted post op mandible resection, prosthesis, skin graft, and new tracheostomy. 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 Reason for Assessment: Follow-up Nutrition Recommendations: Enteral Nutrition (bolus feeds): Suggest increasing bolus feeds: 275 ml of Impact Peptide 1.5, 4 times per day plus 0 scoop of protein powder daily. Order pended Flush with 60 ml water before and after each feed to maintain patency and for hydration. Suggest 100 ml free water BID At goal, this will provide: Impact Peptide 1.5 Total Volume Per Day: 1100 mL Scoops of Protein Powder: 1 Calories per Day: 1650 Protein per Day: 103 g Free Water mL per Day: 847 % RDI: 110 % Monitor hydration status on above TFs as they are concentrated. Pt may need additional fluids depending on IVFs, med flushes, p.o. Intake, etc. Daily BMP with Mg and Phos. Monitor hypokalemia; possible formula change 08/25. Continue 1000 mcg cyanocobalamin daily. Monitor frequency of bowel movements. Daily weights. I was able to discuss plan with provider Cheryl Pacheco MD #[id number] . Current Nutrition Regimen: Active Orders Diet NPO diet (Give Meds) Frequency: Effective Now Number of Occurrences: Until Specified Assessment: Lab Results Component Value Date NA 136 08/25/2022 K 3.4 (L) 08/25/2022 CL 100 08/25/2022 CO2 23 08/25/2022 BUN 9 08/25/2022 CREATININE 0.50 (L) 08/25/2022 ESTGFR 113 08/25/2022 MAGNESIUM 0.82 08/25/2022 CALCIUM 8.4 (L) 08/25/2022 PHOS 2.8 08/25/2022 [id number] 213 (L) 08/22/2022 No results found for: POCGLU Patient Lines/Drains/Airways Status Active Nutritional LDAs Name Placement date Placement time Site Days Naso/Oral Tube 08/22/22 1815 nasogastric left nostril 08/22/22 1815 left nostril 3 Peripheral IV Line - Single Lumen 08/21/22 0838 18 gauge 08/21/22 0838 -- 4 Peripheral IV Line - Single Lumen 08/24/22 0100 cephalic vein (lateral side of arm), left 20 gauge 08/24/22 0100 -- 1 NPWT 08/21/22 182 leg 08/21/22 182 -- 4 Closed/Suction Drain Right;Anterior Neck Bulb 15 Citizen Of [place] 08/21/22 1947 Neck 4 Physical Findings Skin: surgical incisions Oxygen Therapy / Airway Device: Heated trach collar Shift Pressure Injury Prevention Occiput: No Injury Thoracic Spine: No Injury Sacral: No Injury Ischial - left: No Injury Ischial - right: No Injury Heel - left: No Injury Heel - right: No Injury Elbow - left: No Injury Elbow - right: No Injury Device Sites: O2 sat monitor, IV sites, NGT Other Sites: FARRUKH, Trach Last Bowel Movement: 08/25/22 Intake/Output Summary (Last 24 hours) at 08/25/2022 1309 Last data filed at 08/25/2022 1200 Gross per 24 hour Intake 361 ml Output 140 ml Net 221 ml Relevant medications: Continuous Scheduled tube feeding diet 235 mL Per NG tube 4 Times Daily ketorolac 15 mg Intravenous Q6H protein powder 1 Scoop Per NG tube Daily enoxaparin 30 mg Subcutaneous Nightly bisacodyL 10 mg Rectal Daily cyanocobalamin (Vitamin B-12) 1,000 mcg Per NG tube Nightly melatonin 3 mg Per G Tube Daily after dinner levothyroxine 100 mcg Per NG tube Daily chlorhexidine 15 mL Oral TID pantothenic Ac-Min Oil-Pet,Hyd 1 each Topical (Top) BID ampicillin-sulbactam 3 g Intravenous Q8H SHOSHANA lidocaine 2 patch Transdermal Q24H PRN cyclobenzaprine, oxyCODONE OR oxyCODONE, polyethylene glycoL (MIRALAX) oral powder, magnesium sulfate OR magnesium sulfate, HYDROmorphone OR HYDROmorphone OR [DISCONTINUED] HYDROmorphone, zwqzzz-[id number]-dopyrfc DR AND sodium bicarbonate, sodium chloride 0.9 % (flush), lidocaine, ondansetron, prochlorperazine Anthropometrics: Admit Weight: 43.91 kg Estimated body mass index is 18.83 kg/m?? as calculated from the following: Height as of this encounter: 157.5 cm (5' 2). Weight as of this encounter: 46.7 kg (102 lb 15.3 oz). [place] Body Weight (IBW) (kg): 50 Wt Readings from Last 10 Encounters: 08/23/22 46.7 kg (102 lb 15.3 oz) 06/01/22 44.3 kg (97 lb 9.6 oz) 03/16/22 44.5 kg (98 lb 3.2 oz) 10/18/21 45.4 kg (100 lb) 10/05/21 46.1 kg (101 lb 9.6 oz) 09/05/21 46.1 kg (101 lb 11.2 oz) 08/18/21 43.1 kg (95 lb) 07/04/21 43.1 kg (95 lb) 03/07/21 43.1 kg (95 lb) 11/01/20 45.3 kg (99 lb 12.8 oz) Patient Vitals for the past 168 hrs: Weight 08/23/22 0100 46.7 kg (102 lb 15.3 oz) 08/22/22 0500 46.9 kg (103 lb 6.3 oz) 08/21/22 0620 43.9 kg (96 lb 12.8 oz) Weight Source: Bed Estimated / Assessed Needs: Kcal / K - 1635 Kcal (30 Kcal/Kg - 35 Kcal/Kg) Estimated Protein Needs: 70.05 - 93 g (1.5 g/Kg - 2.0 g/Kg) Nutrition intake and intake history / interview: 08/25/22: Follow up for pt w/ Tfs. Due to bed transfer, pt did not receive bolus feeds yesterday as formula was not available- this was corrected this morning. Pt has concern of soy allergy which results in increased secretions; discussed the very small amount of soy oil in current formula. Discussedavailability of Compleat 1.4 but it has lower protein content- pt prefers to stay w/ current formula. Reviewed calorie provisions and suggest increasing to 35 kcal/kg- pt in agreement and also requests free water in an effort to thin secretions.Unclear of nutrition plan in moving towards discharge,if able to adv diet, pt has c/o many food intolerances; ( seafood, tomatoes , etc) if going home onTfs would consider Compleat 1.4 250 ml bolus 4X/day to provide 1500 kcal & 100 g protein. 08/24: Pt seen w/ continuous TF infusing at goal rate of 47 mL/hr. Pt denies issues w/ tolerance. Bolus feeding recs as requested per team above. Will monitor K on labs tomorrow and switch TF formula as needed to increase K+ provision. 08/22: Consulted for TEN recommendations. Do not see enteral access at this time in the [facility]. Nutrition Focused Physical Exam: Not performed Malnutrition Diagnosis: Not enough data to assess (CHRIS Gongora J Parenteral Enteral Nutr. 2011; 36(3): 273-83) Nutrition to continue to follow up while inpatient Azul Mason MS, RD, LDN Clinical Dietitian Pager # [phone] * Toño Pacheco MD - 08/25/2022 8:57 AM EDT OTOLARYNGOLOGY - HEAD & NECK SURGERY DAILY PROGRESS NOTE Name: Theresa Hollis Age/Sex: 52 y.o. female Attending: Roberth Lee MD Hospital Day: 5 4 Days Post-Op Patient ID/Reason for Admission Theresa Hollis is a 52 y.o. 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 She underwent tracheostomy, neck exploration, mandible excision, and fibula free flap reconstruction 08/21 with ENT and PRS. Interval History - Ketamine infusion dc-ed yesterday - No acute events overnight - Swelling much improved today - No flap concerns - Tolerating bolus TF - AF, VSS - No additional complaints Vitals Last value 24hr Range Temperature: 36.5 ??C (97.7 ??F) Temp: [36.5 ??C (97.7 ??F)-37.7 ??C (99.9 ??F)] Heart Rate: 85 Heart Rate: [85-105] Blood Pressure: 108/62 BP: (97-154)/(57-84) Respiratory Rate: 16 Resp: [15-19] SpO2: 96 % SpO2: [93 %-98 %] Intake & Output Intake/Output Summary (Last 24 hours) at 08/25/2022 0857 Last data filed at 08/25/2022 0800 Gross per 24 hour Intake 566 ml Output 745 ml Net -179 ml Physical Exam General: NAD, non-ill appearing, resting comfortably in bed, less anxious today Face: Symmetric without dysmorphic features. Edema much improved. Eyes: EOMI, conjunctiva healthy. L periorbital edema. Ears: Auricles symmetric, no lesions Nose: Patent nares, grossly normal appearance Oral Cavity/Pharynx: Mucosa is pink, oropharynx symmetric. Mandibular suture lines intact without apparent dehiscence, flap is pink, warm, and well perfused. Neck: Soft, trachea midline. Tracheostomy tube sutured in place with scant bloody secretions surrounding. Good airflow. Chest: Non-labored breathing, regular rate on HTC Neuro: Alert & oriented, moving extremities x 4, communicating via writing Labs Recent Labs 08/24/22 0100 08/23/22 1330 08/23/22 0052 WBC 5.2 -- 7.3 HGB 8.9* -- 10.2* HCT 25.5* -- 29.6* PLATELET 182 -- 216 NA 132* 130* 131* K 3.3* 3.6 3.7 CL 97* 95* 96* CO2 24 23 25 BUN 10 8 7* CREATININE 0.56* 0.57* 0.65* GLUCOSE 103 101 94 CALCIUM 8.2* 8.4* 8.4* MAGNESIUM 0.80 -- 0.88 PHOS 2.5 -- 3.2 Imaging None. ASSESSMENT & PLAN Theresa Hollis is a 52 y.o. female s/p neck exploration, tracheostomy, mandible excision, and fibula free flap reconstruction, 4 Days Post-Op. Theresa is doing very well. She is tolerating bolus TF without issue. Will change trach to cuffless today. Anticipate possible swallow early next week. Surgical/Head&Neck: Neck should remain in neutral position Trach suctioning and trach care per RT, HTC in place at all times Apply aquaphor to incisions Peridex mouth rinse Trach change today Neurologic: Pain controlled with ketamine gtt, idoderm patch, oxycodone PRN, dilaudid PRN. Dc ketamine today. Cardiovascular: PAMELA Pulmonary: Oxygenation on HTC Gastrointestinal: Zofran PRN Genitourinary: Voiding spontaneously Musculoskeletal: PAMELA Fluids/Electrolytes: - Nutrition: NPO diet (Give Meds) Bolus TF. Infectious Disease: WBC wnl, Unasyn x 5 days; Peridex Hematology: Hemoglobin wnl Endocrine: Home levothyroxine Consults: SICU, PRS Lines: Patient Lines/Drains/Airways Status Active Tubes/Lines/Drains Name Placement date Placement time Site Days Peripheral IV Line - Single Lumen 08/21/22 0838 18 gauge 08/21/22 0838 -- 4 Peripheral IV Line - Single Lumen 08/24/22 0100 cephalic vein (lateral side of arm), left 20 gauge 08/24/22 0100 -- 1 Closed/Suction Drain Right;Anterior Neck Bulb 15 Citizen Of [place] 08/21/221946 Neck 4 Naso/Oral Tube 08/22/221814 nasogastric left nostril 08/22/221814 left nostril 3 Trach Airway 08/21/22194708/21/221947 -- 4 Prophylaxis: Lovenox, SCD, activity per PRS Disposition: Floor status, Attempt Cardiopulmonary Resuscitation - Inpatient Discharge: Plan for d/c TBD; Needs trach supplies, suction, VNA; Follow-up ENT Toño Pacheco MD, PGY1 08/25/22 8:57 AM ENT Team Pager: [phone] * Akhil Martinez PA - 08/25/2022 7:48 AM EDT Plastic Surgery Inpatient Progress Note (Team Pager #[phone] Date of surgery: 08/21/22 CC/Procedure(s): Oromandibular reconstruction with right fibula free flap, skin graft from R thigh to right leg and submental opening Surgeon: Luz Elena Subjective/IE: LASHON, patient offers no complaints this morning. Objective: BP 97/60 (BP Location (NBP): Left arm, Patient Position: Lying;Sitting) Pulse 85 Temp 36.5 ??C (97.7 ??F) (Oral) Resp 16 Ht 157.5 cm (5' 2) Wt 46.7 kg (102 lb 15.3 oz) SpO2 95% BMI 18.83 kg/m?? Intake/Output Summary (Last 24 hours) at 08/25/2022 0748 Last data filed at 08/24/2022 1620 Gross per 24 hour Intake 776 ml Output 1195 ml Net -419 ml General: Resting comfortably in no acute distress. Neuro: Awake, alert, responds to questions appropriately. CV: RRR on monitor Pulm: non- labored breathing, trach HEENT: Flap warm and well perfused with strong doppler signal, skin paddle euchromic with donor site, skin graft appears healthy, inset incision intact, neck incision intact with shayna, drain x1 w/serosanguinous output. L periorbital edema stable. RLE: Wound vac in place to lower leg and holding suction. Allevyn in place to thigh with minimal strikethrough. Labs: Recent Labs 08/24/22 0100 WBC 5.2 HGB 8.9* HCT 25.5* NA 132* K 3.3* CL 97* BUN 10 CREATININE 0.56* CO2 24 GLUCOSE 103 ANIONGAP 11 CALCIUM 8.2* Micro: N/A Imaging/Studies: N/A Assessment: Theresa Hollis is a 52 y.o. female s/p oromandibular reconstruction with a fibula free flap 08/21. Recovering well overall. Plan: Q4h flap checks Dressings/Drains: Strip and record drain output. Vac off 08/26. Allevyn off 09/04 Antibiotics: Unasyn x5d Diet: Continue TF as tolerated Activity: TTWB in boot when out of bed DVT prophylaxis: SCD left leg, lovenox May start PT Remainder of care per primary team CALLY Owens Plastic Surgery Inpatient Team Pager #[phone] * Cherelle Resendiz, [facility] - 08/25/2022 6:14 AM EDT RT Tracheostomy Note Oxygen Delivery: Interface: Heated trach collar Flow: 30 L/min FiO2: 21 % Barrier Used: drain sponge Airway: Trach Airway 08/21/221947 (Active) Tracheal Airway Size Verfication 6 mm 08/24/222004 Appearance crusty 08/24/222004 Tube Securement sutures 08/24/222004 Cuff Pressure (cm H2O/mLH2O) 0 08/24/222004 Trach Cap Status uncapped/unplugged 08/24/222004 Tube Care/Reposition dressing changed;inner cannula changed;site care done 08/24/222004 Manual Resuscitator at Bedside Yes 08/24/222004 Spare Trach At Bedside Yes 08/24/222004 Trach ToGo kit at Bedside Yes 08/24/222004 Emergency Airway Sign at [facility]? Yes 08/24/222004 Trach Care Performed: Trach Airway 08/21/221947-Tube Care/Reposition: dressing changed, inner cannula changed, site care done Secretions: Moderate osorio/red streaked Assessment: Pt remained on HTC 30LPM 21%. Trach care done. Ambu, and spare trach at bedside. Plan: Continue current care. RT will continue to follow. Cherelle Resendiz RCP * Lenora Dukes, RD - 08/24/2022 2:34 PM EDT Nutrition Progress Note Theresa Hollis is a 52 y.o. female admitted post op mandible resection, prosthesis, skin graft, and new tracheostomy. 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 Reason for Assessment: Tube Feeding, Follow-up Nutrition Recommendations: Enteral Nutrition (bolus feeds): For intermittent feeds, initiate slowly giving 150 mL over 45-60 minutes and increasing by 50 ml per feed as tolerated until able to reach goal of 235 ml of Impact Peptide 1.5, 4 times per day plus 1scoop of protein powder daily. Flush with 60 ml water before and after each feed to maintain patency and for hydration. At goal, this will provide: Impact Peptide 1.5 Total Volume Per Day: 940 mL Scoops of Protein Powder: 1 Calories per Day: 1435 Protein per Day: 94 g Free Water mL per Day: 773.8 % RDI: 94 % Monitor hydration status on above TFs as they are concentrated. Pt may need additional fluids depending on IVFs, med flushes, p.o. Intake, etc. Daily BMP with Mg and Phos. Monitor hypokalemia; possible formula change 08/25. Continue 1000 mcg cyanocobalamin daily. Monitor frequency of bowel movements. Daily weights. I was able to discuss plan with provider ISRAEL Red 2 Provider Julian Root APRN . Current Nutrition Regimen: Active Orders Diet NPO diet (Give Meds) Frequency: Effective Now Number of Occurrences: Until Specified Assessment: Lab Results Component Value Date NA 132 (L) 08/24/2022 K 3.3 (L) 08/24/2022 CL 97 (L) 08/24/2022 CO2 24 08/24/2022 BUN 10 08/24/2022 CREATININE 0.56 (L) 08/24/2022 ESTGFR 110 08/24/2022 MAGNESIUM 0.80 08/24/2022 CALCIUM 8.2 (L) 08/24/2022 PHOS 2.5 08/24/2022 [id number] 213 (L) 08/22/2022 No results found for: POCGLU Patient Lines/Drains/Airways Status Active Nutritional LDAs Name Placement date Placement time Site Days Naso/Oral Tube 08/22/22 1815 nasogastric left nostril 08/22/22 1815 left nostril 2 Peripheral IV Line - Single Lumen 08/21/22 0838 18 gauge 08/21/22 0838 -- 3 Peripheral IV Line - Single Lumen 08/24/22 0100 cephalic vein (lateral side of arm), left 20 gauge 08/24/22 0100 -- less than 1 NPWT 08/21/22 1825 leg 08/21/22 1825 -- 3 Closed/Suction Drain Right;Anterior Neck Bulb 15 Citizen Of [place] 08/21/22 1947 Neck 3 Oxygen Therapy / Airway Device: Heated trach collar Shift Pressure Injury Prevention Occiput: No Injury Thoracic Spine: No Injury Sacral: No Injury Ischial - left: No Injury Ischial - right: No Injury Heel - left: No Injury Heel - right: No Injury Elbow - left: No Injury Elbow - right: No Injury Device Sites: O2 sat monitor, IV sites, ECG Leads, BP Cuff Other Sites: [email or web address] Last Bowel Movement: 08/22/22 Intake/Output Summary (Last 24 hours) at 08/24/2022 1434 Last data filed at 08/24/2022 1230 Gross per 24 hour Intake 2374.7 ml Output 1665 ml Net 709.7 ml Relevant medications: Continuous tube feeding diet 47 mL/hr at 08/24/22 1003 Scheduled ketorolac 15 mg Intravenous Q6H protein powder 1 Scoop Per NG tube Daily enoxaparin 30 mg Subcutaneous Nightly bisacodyL 10 mg Rectal Daily cyanocobalamin (Vitamin B-12) 1,000 mcg Per NG tube Nightly folic acid 1,000 mcg Per G Tube Nightly thiamine 100 mg Per G Tube Nightly melatonin 3 mg Per G Tube Daily after dinner levothyroxine 100 mcg Per NG tube Daily chlorhexidine 15 mL Oral TID pantothenic Ac-Min Oil-Pet,Hyd 1 each Topical (Top) BID ampicillin-sulbactam 3 g Intravenous Q8H SHOSHANA lidocaine 2 patch Transdermal Q24H PRN oxyCODONE OR oxyCODONE, polyethylene glycoL (MIRALAX) oral powder, magnesium sulfate ORmagnesium sulfate, HYDROmorphone OR HYDROmorphone OR [DISCONTINUED] HYDROmorphone, ndqlau-uqqxpnfm-pzfdcns DR AND sodium bicarbonate, sodium chloride 0.9 % (flush), lidocaine, ondansetron, prochlorperazine Anthropometrics: Admit Weight: 43.91 kg Estimated body mass index is 18.83 kg/m?? as calculated from the following: Height as of this encounter: 157.5 cm (5' 2). Weight as of this encounter: 46.7 kg (102 lb 15.3 oz). [place] Body Weight (IBW) (kg): 50 Wt Readings from Last 10 Encounters: 08/23/22 46.7 kg (102 lb 15.3 oz) 06/01/22 44.3 kg (97 lb 9.6 oz) 03/16/22 44.5 kg (98 lb 3.2 oz) 10/18/21 45.4 kg (100 lb) 10/05/21 46.1 kg (101 lb 9.6 oz) 09/05/21 46.1 kg (101 lb 11.2 oz) 08/18/21 43.1 kg (95 lb) 07/04/21 43.1 kg (95 lb) 03/07/21 43.1 kg (95 lb) 11/01/20 45.3 kg (99 lb 12.8 oz) Patient Vitals for the past 168 hrs: Weight 08/23/22 0100 46.7 kg (102 lb 15.3 oz) 08/22/22 0500 46.9 kg (103 lb 6.3 oz) 08/21/22 0620 43.9 kg (96 lb 12.8 oz) Weight Source: Bed Estimated / Assessed Needs: Kcal / K - 1407 Kcal (25 Kcal/Kg - 30 Kcal/Kg) Estimated Protein Needs: 56.28 - 94 g (1.2 g/Kg - 2.0 g/Kg) Nutrition intake and intake history / interview: 08/24: Pt seen w/ continuous TF infusing at goal rate of 47 mL/hr. Pt denies issues w/ tolerance. Bolus feeding recs as requested per team above. Will monitor K on labs tomorrow and switch TF formula as needed to increase K+ provision. 08/22: Consulted for TEN recommendations. Do not see enteral access at this time in the [facility]. Nutrition Focused Physical Exam: Not performed Malnutrition Diagnosis: Not enough data to assess (Srinivas et al, JPEN J Parenteral Enteral Nutr. 2011; 36(3): 273-83) Nutrition to continue to follow up while inpatient Lenora Dukes MS, RD, LDN Clinical Dietitian Pager # [phone] * Viola Kathleen, PT - 08/24/2022 12:24 PM EDT Physical Therapy Intervention Note Treatment Number PT: 2 Patient profile: Theresa Hollis is a 52 y.o. 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 She underwent tracheostomy, neck exploration, mandible excision, and fibula free flap reconstruction 08/21 with ENT and PRS. Total duration of encounter: 3 days Social History: Patient lives with Harinder in a single level [place] [facility]. Has ~ 15 IRENE without rails. Normallyindependent without device. 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 They have two dogs - basset hound and corgi mix Precautions/Special Considerations: Full code, Neck should remain in neutral position, tracheostomy, DHT, PIV, wound vac to RLE, FARRUKH drain to R neck, TTWB in boot when out of bed, up in chair, AAT, NPO diet Mobility and Positioning Recommendations: Pt. to utilize FWW and standby assist for transfers with nursing. Please encourage up to chair for meal times as able. Walker boot/aircast when OOB; multpodus (blue boot) to RLE when in bed/at rest Bathroom for toileting Subjective: ???thank you. You two were the dave light of my day yesterday?? Objective: Pt seen for physical therapy treatment today and presented as follows: Pain: Tolerable throughout Vital Signs: At Rest With Activity SpO2 (HTC 21%, off during ambulation) 97% 96% BP (MAP) L lower leg 154/77 (98) mmHg mmHg HR 96bpm bpm Behavior / Mood: alert and cooperative Oriented to: person, place, and date Follows commands: multi step and 100% of the time Attention: WFL Safety awareness: WFL Communication: gestures well, thumbs up and down, writing on whiteboard RASS: 0 CAM: neg Vision: WFLs, glasses worn Musculoskeletal: ROM: WFLS improving R ankle DF and PF AROM Sensation: intact except L side of face Tone: normal Strength: WFLS, improving R ankle DF/PF Bed Mobility: Supine to Sit: supervised Sit to Supine: N/A Transfers: Sit to Stand: CGA from EOB and toilet with FWW, walker boot to RLE Stand to Sit: CGA Bed to Chair: CGA ambulated around bed Other: toilet transfers with supervision and FWW Gait: Distance: 75 feet Device Used: FWW Level of Assist: [id number] Gait Comments: no overt LOB, steady gait, sneaker to LLE, walker boot to RLE Stairs: N/A Balance: Sitting Static: good Sitting Dynamic: good - independent at EOB Standing Static: good with single UE support Standing Dynamic / Gait: fair/good with FWW Self Care: N/A Education: patient educated on TDWB, use of walker boot, use of walker, ambulation, use of restroom and plan of care, with good understanding/demonstration. Patient status, treatment, and mobility recommendations discussed with nursing. Pt left in bedside recliner chair, with all needs met, with call ramirez in reach, and with family at the bedside following visit. Team Communication: communication with nursing staff pre/post session regarding readiness and response to therapy intervention. Assessment: Theresa Hollis was seen today for physical therapy intervention. Pt continues to be very pleasant and participatory in PT. She continues to communicate well and make needs known. She was able to progress from transferring to ambulation today. Educated on wB status with good ability to maintain during gait. Pain more controlled today allowing for further activity. Expect continued progress toward rehab goals, with DC home once medically ready. Pt will benefit from skilled therapy services throughout hospitalization to promote safety, independence, and provide developmental support/caregiver education. Discharge Recommendations: Based on the current findings, Anticipated Discharge Disposition (PT): home with supervision, home with home health when medically ready for hospital discharge. Discharge recommendation is based on the patient's current physical impairments, prior functional status, potential to return to prior level of function, patient motivation, reported home support, potential for functional gains, current level of endurance, reported home environment and anticipated trajectory of progress and may change based on patient progress during this hospitalization. Consult Recommendations: No other consults recommended at this time. Equipment Needs: Anticipated Equipment Needs at Discharge (PT): walker, front wheeled Transportation Needs: Car X Consult service will continue to follow patient. PT signing off. Recommendations above, page if further consultation required. Goals: Goals ongoing as of 08/24/22 unless otherwise noted Goals: To be achieved by 08/31/22: Pt. to demonstrate knowledge of safety limitations and precautions Pt. to demonstrate understanding of appropriate exercises. Pt. to perform supine to/from sitting EOB with modified independence MET 08/24 Pt. to perform sit to/from stand transfers with supervision and LRAD Pt. to ambulate 150 feet with supervision and least restrictive assistive device Pt. to ambulate up/down at least 3 step/stairs using least restrictive assistive device w/ CGA Plan: Therapy Frequency (PT): 2-4 times/wk for therapy as outlined in initial evaluation. Patient/family understand and agree with plan as stated above. Time IN / OUT: 5036-5431 Total Minutes, Physical Therapy: 47 Billing Code: x3 TEF Thank you for this consult. Viola Kathleen, PT Pager: [phone] Physical Therapy Inpatient Rehabilitation Department * Toño Pacheco MD - 08/24/2022 9:14 AM EDT OTOLARYNGOLOGY - HEAD & NECK SURGERY DAILY PROGRESS NOTE Name: Theresa Hollis Age/Sex: 52 y.o. female Attending: Roberth Lee MD Hospital Day: 4 3 Days Post-Op Patient ID/Reason for Admission Theresa Hollis is a 52 y.o. 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 She underwent tracheostomy, neck exploration, mandible excision, and fibula free flap reconstruction 08/21 with ENT and PRS. Interval History - No acute events overnight - No flap concerns - Increased edema to the L face this AM - TF advanced toward goal, tolerating well - AF, VSS - No additional complaints Vitals Last value 24hr Range Temperature: 37 ??C (98.6 ??F) Temp: [36.6 ??C (97.9 ??F)-37 ??C (98.6 ??F)] Heart Rate: 92 Heart Rate: [76-106] Blood Pressure: 137/63 BP: (103-180)/(50-106) Respiratory Rate: 15 Resp: [10-23] SpO2: 94 % SpO2: [92 %-96 %] Intake & Output Intake/Output Summary (Last 24 hours) at 08/24/2022 0915 Last data filed at 08/24/2022 0856 Gross per 24 hour Intake 1572.7 ml Output 1620 ml Net -47.3 ml Physical Exam General: NAD, non-ill appearing, resting comfortably in bed, less anxious today Face: Symmetric without dysmorphic features. Moderate edema L>R Eyes: EOMI, conjunctiva healthy. L periorbital edema. Ears: Auricles symmetric, no lesions Nose: Patent nares, grossly normal appearance Oral Cavity/Pharynx: Mucosa is pink, oropharynx symmetric. Mandibular suture lines intact without apparent dehiscence, flap is pink, warm, and well perfused. Neck: Soft, trachea midline. Tracheostomy tube sutured in place with scant bloody secretions surrounding. Good airflow. Chest: Non-labored breathing, regular rate on HTC Neuro: Alert & oriented, moving extremities x 4, communicating via writing Labs Recent Labs 08/24/22 0100 08/23/22 1330 08/23/22 0052 WBC 5.2 -- 7.3 HGB 8.9* -- 10.2* HCT 25.5* -- 29.6* PLATELET 182 -- 216 NA 132* 130* 131* K 3.3* 3.6 3.7 CL 97* 95* 96* CO2 24 23 25 BUN 10 8 7* CREATININE 0.56* 0.57* 0.65* GLUCOSE 103 101 94 CALCIUM 8.2* 8.4* 8.4* MAGNESIUM 0.80 -- 0.88 PHOS 2.5 -- 3.2 Imaging None. ASSESSMENT & PLAN Theresa Hollis is a 52 y.o. female s/p neck exploration, tracheostomy, mandible excision, and fibula free flap reconstruction, 3 Days Post-Op. Theresa feels well this AM. Will dc ketamine infusion today. No flap concerns. Appropriate for floor status, Q4hr flap checks, bolus TF. Surgical/Head&Neck: Neck should remain in neutral position Trach suctioning and trach care per RT, HTC in place at all times Apply aquaphor to incisions Peridex mouth rinse Neurologic: Pain controlled with ketamine gtt, idoderm patch, oxycodone PRN, dilaudid PRN. Dc ketamine today. Cardiovascular: PAMELA Pulmonary: Oxygenation on HTC Gastrointestinal: Zofran PRN Genitourinary: Voiding spontaneously Musculoskeletal: PAMELA Fluids/Electrolytes: - Nutrition: NPO diet (Give Meds) Bolus TF. Infectious Disease: WBC 5.2, Unasyn x 5 days; Peridex Hematology: Hemoglobin 8.9 Endocrine: Home levothyroxine Consults: SICU, PRS Lines: Patient Lines/Drains/Airways Status Active Tubes/Lines/Drains Name Placement date Placement time Site Days Peripheral IV Line - Single Lumen 08/21/22 0838 18 gauge 08/21/22 0838 -- 3 Peripheral IV Line - Single Lumen 08/24/22 0100 cephalic vein (lateral side of arm), left 20 gauge 08/24/22 0100 -- less than 1 Closed/Suction Drain Right;Anterior Neck Bulb 15 Citizen Of [place] 08/21/221946 Neck 3 Naso/Oral Tube 08/22/221814 nasogastric left nostril 08/22/221814 left nostril 2 Trach Airway 08/21/22194708/21/221947 -- 3 Prophylaxis: Lovenox, SCD, activity per PRS Disposition: Floor status, Attempt Cardiopulmonary Resuscitation - Inpatient Discharge: Plan for d/c TBD; Needs trach supplies, suction, VNA; Follow-up ENT Toño Pacheco MD, PGY1 08/24/22 9:15 AM ENT Team Pager: [phone] * Melvi Storm RN - 08/24/2022 8:01 AM EDT OUTCOME EVALUATION NOTE: OUTCOME SUMMARY: Pt arrived from SICU ~0230. Placed on ISCU monitor. VSS on 30L 21% HTM. No suction needed. Flap checks q2h unchanged. TF advanced to 40mL w/o issue. Urinated using bedpan. No BM. Ketamine gtt infusing w/o issue. LR @ 50mL. ABX given this morning as ordered. FARRUKH drained ~20mL serous fluid. PLAN MOVING FORWARD: Pain mgmt TF increase to goal Flap checks q2h VS q2h I/O q4h Emergency trach, intub, kit and obturator at bedside * Nadine Mendoza APRN - 08/24/2022 7:59 AM EDT Plastic Surgery Inpatient Progress Note (Team Pager #[phone] Date of surgery: 08/21/22 CC/Procedure(s): Oromandibular reconstruction with right fibula free flap, skin graft from R thigh to right leg and submental opening Surgeon: Luz Elena Subjective/IE: Increased edema, nurse reports that patient was tilted to that side overnight. No new concerns. Objective: BP 108/50 (BP Location (NBP): Left leg, Patient Position: Lying) Pulse 76 Temp 36.6 ??C (97.9 ??F) (Axillary) Resp 13 Ht 157.5 cm (5' 2) Wt 46.7 kg (102 lb 15.3 oz) SpO2 95% BMI 18.83 kg/m?? Intake/Output Summary (Last 24 hours) at 08/24/2022 0800 Last data filed at 08/24/2022 0750 Gross per 24 hour Intake 1572.7 ml Output 1345 ml Net 227.7 ml General: Resting comfortably in no acute distress. Neuro: Awake, alert, responds to questions appropriately. CV: RRR on monitor Pulm: non- labored breathing, trach HEENT: Flap warm and well perfused with strong doppler signal, skin paddle euchromic with donor site, stsg appears healthy, inset incision intact, neck incision intact with shayna, drain x1 w/ serosanguinous output. Facial edema L>R. RLE: Wound vac in place to lower leg and holding suction. Allevyn in place to thigh with minimal strikethrough. Labs: Recent Labs 08/24/22 0100 WBC 5.2 HGB 8.9* HCT 25.5* NA 132* K 3.3* CL 97* BUN 10 CREATININE 0.56* CO2 24 GLUCOSE 103 ANIONGAP 11 CALCIUM 8.2* Micro: N/A Imaging/Studies: N/A Assessment: Theresa Hollis is a 52 y.o. female s/p oromandibular reconstruction with a fibula free flap 08/21. Recovering well so far. Increased edema today, like dependent. Plan: Q4h flap checks Dressings/Drains: Strip and record drain output. Vac off 08/26. Allevyn off 09/04 Antibiotics: Unasyn x5d Diet: NPO, TF Activity: TTWB in boot when out of bed DVT prophylaxis: SCD left leg, lovenox May start PT Remainder of care per primary team NADINE MENDOZA APRN Plastic Surgery Inpatient Team Pager #[phone] * Sultana Pascual RCP - 08/24/2022 4:31 AM EDT Respiratory Therapy Heated Humidified High Flow INDICATIONS: Heat/Humidification HIGH FLOW SETTINGS: Interface: Heated trach collar Flow: 30 L/min FiO2: 21 % VITAL SIGNS: HR: 96 RR: 12 SpO2: 95 % SKIN ASSESSMENT: Trach airway: Size: 6, Type: Shiley, Style: CN Cuff Pressure: 0, Skin Integrity: WDL BREATH SOUNDS: diminished ASSESSMENT: Received pt on above settings. Trach care performed at beginning of shift, trach sutures with no trach ties, drain sponge resting under trach. Emergency equipment & airway sign @ [facility]. Pt transferred to step down unit at approximately 0215; report given to RT covering unit. PLAN: Continue respiratory supportive care with trach care. Sultana Pascual RCP * Princess Oliver RN - 08/24/2022 2:00 AM EDT Theresa Hollis downgraded/transferred to ISCU room 84. Report called to Melvi Storm RN with opportunity for questions and clarification. VSS, transferred with RT and RN on bedside monitor. All belongings and medications sent with patient. IV site CDI, skin free from pressure ulcers. Patient notified family of transfer. * Grzegorz Zuluaga RT - 08/23/2022 3:19 PM EDT RT Tracheostomy Note Oxygen Delivery: Interface: Heated trach collar Flow: (S) 35 L/min FiO2: 21 % Barrier Used: drain sponge Last Chest X-ray: Results for orders placed during the hospital encounter of 08/21/22 XR Chest One View Narrative EXAMINATION: XR CHEST ONE VIEW CLINICAL HISTORY: s/p multiple enteral tube placements, want to rule out PTX TECHNIQUE: 1 view of the chest COMPARISON: Chest radiograph 01/19/2014 FINDINGS: Tracheostomy tube in place. Faint left basilar opacity.. No pleural effusion or pneumothorax. The cardiomediastinal silhouette, taras, and pulmonary vasculature are within normal limits. Surgical changes in the left supraclavicular region. Partially visualized dilated loops of large bowel are present in the LEFT upper quadrant Impression 1. Faint left basilar opacity which can be seen in atelectasis or pneumonitis. 2. No pneumothorax. 3. Distended loops of colon in the LEFT upper quadrant Preliminary report signed by: Hermelindo Garcia at 08/22/2022 5:35 PM I have personally reviewed the image(s) and the resident's interpretation and agree with the findings, LILY CELESTE MD at 08/22/2022 5:39 PM Thank you for letting us participate in the care of this patient. If you are a health care provider and have any questions regarding this report, please contact the number below. For patients who have questions please contact the health director critical care that requested your imaging first. Electronically signed by: LILY CELESTE MD, [facility] ([phone]), at 08/22/2022 5:39 PM Airway: Trach Airway 08/21/221947 (Active) Tracheal Airway Size Verfication 6 mm 08/23/22744 Appearance clean;crusty 08/23/22744 Tube Securement sutures 08/23/22744 Trach Cap Status uncapped/unplugged 08/23/22744 Tube Care/Reposition dressing changed;inner cannula changed;site care done 08/23/22744 Manual Resuscitator at Bedside Yes 08/23/22744 Spare Trach At Bedside Yes 08/23/22 07 Trach ToGo kit at Bedside Yes 08/23/22744 Emergency Airway Sign at [facility]? Yes 08/23/22 07 Trach Care Performed: Trach Airway 08/21/221947-Tube Care/Reposition: dressing changed, inner cannula changed, site care done Assessment: Patient received with sutured [address], on HTC 40L/21%. Flow weaned to 35L. No other changes made. Trach care completed, TTGK at bedside, emergency airway sign at [facility]. Plan: Care for airway, provide humidification. RT Carmelina * Viola Kathleen, PT - 08/23/2022 2:21 PM EDT Physical Therapy Evaluation Patient profile: Theresa Hollis is a 52 y.o. 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 She underwent tracheostomy, neck exploration, mandible excision, and fibula free flap reconstruction 08/21 with ENT and PRS. 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 Hyperlipidemia Hypothyroidism Past Surgical History: Procedure Laterality Date GLOSSECTOMY Right partial LYMPHADENECTOMY SND 1-5 PRO BONE BIOPSY,TROCAR/NEEDLE SUPERF Left 05/06/2014 BIOPSY BONE, TROCAR OR NEEDLE, SUPERFICIAL, MANDIBLE performed by Alfred Vital MD at [facility] PRO DEBRIDEMENT BONE MUSCLE &/FASCIA 20 SQ CM/< Bilateral 11/17/2019 DEBRIDEMENT SKIN, SUBCU, MUSCLE, BONE, HEAD/NECK (WRVU 4.1) performed by Keyur Ng MD at [facility] OR PRO INJECTION PLATELET PLASMA WITH IMAGE, HARVEST/PREP 11/17/2019 INJECTION(S), PLATELET RICH PLASMA, ANY SITE, INCLUDING IMAGE GUIDANCE, HARVESTING AND PREPARATION WHEN PERFORMED performed by Keyur Ng MD at [facility] MAIN OR PRO REMOVAL ERUPTED TOOTH WITH ELEVATION OF MUCOPERIOSTEAL FLAP N/A 05/06/2014 SURGICAL EXTRACTIONS REQUIRING ELEVATION OF MUCOPERIOSTEAL FLAP AND REMOVAL OF BONE OR SECTION OF TOOTH performed by Alfred Vital MD at [facility] MAIN OR PRO REMOVAL ERUPTED TOOTH WITH ELEVATION OF MUCOPERIOSTEAL FLAP Bilateral 11/17/2019 SURGICAL EXTRACTIONS REQUIRING ELEVATION OF MUCOPERIOSTEAL FLAP AND REMOVAL OF BONE OR SECTION OF TOOTH (WRVU 1.09) performed by Keyur Ng MD at [facility] MA[facility] OR SKIN GRAFT Social History: Patient lives with Harinder in a single level home [place] [facility]. Has ~ 15 IRENE without rails. Normallyindependent without device. 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 They have two dogs - basset hound and corgi mix Precautions/Special Considerations: Full code, Neck should remain in neutral position, tracheostomy, DHT, PIV, wound vac to RLE, FARRUKH drain to R neck, TTWB in boot when out of bed, up in chair, AAT, NPO diet Mobility and Positioning Recommendations: Pt. to utilize FWW and 1 assist for transfers with nursing. Please encourage up to chair for meal times as able. Walker boot/aircast when OOB; multpodus (blue boot) to RLE when in bed/at rest EPM Level 4: Pivot to chair/commode, Participate in self care Subjective: pt non verbal but gesturing well indicating how long do I stay in the chair? Objective: Pt seen for initial evaluation today. Pain: Number Location At rest 07/26 RLE With activity 08/26 RLE Vital Signs: At Rest With Activity SpO2 (HTC 21% 40L) 98% 96% BP (MAP) 140s/60s (80s)mmHg 140/60s (80s)mmHg HR 80sbpm 90sbpm Behavior / Mood: alert and cooperative Oriented to: person, place, and date Follows commands: multi step and 100% of the time Attention: WFL Safety awareness: WFL RASS: 0 CAM: neg Communication: non verbal, gestures, nodding, thumbs up/down, writing in notebook Vision: WFLs Musculoskeletal: ROM: WFLs except R ankle ROM impaired DF and PF actively. PROM R ankle limited due to pain Sensation: intact, denied N/T to LEs Tone: normal Strength: WFLs, 5/5 Les except R ankle DF strength 1/5 and PF 2/5 Bed Mobility: Supine to Sit: to R side EOB, CGA x1, assist for lines Sit to Supine: N/A Transfers: Sit to Stand: min A x2 with FWW, walker boot to RLE Stand to Sit: CGAx1 Bed to Chair: CGAx2 with FWW, stand step, walker boot on RLE Other: shari to scoot back in chair with min a x2 Gait: A few steps bed to chair with FWW, CGAx2 Stairs: N/A Balance: Sitting Static: good Sitting Dynamic: good Standing Static: good with FWW Standing Dynamic / Gait: fair with FWW Education: patient and significant other educated on role of PT, use of walker boot, use of multipodus, walker, ongoign activity, and plan of care, with good understanding/demonstration. Patient status, treatment, and mobility recommendations discussed with nursing. Assessment: Theresa Hollis was seen today for physical therapy evaluation. Pt presented with impairments of pain, communication, WB status, balance, skin integrity, and activity tolerance, which are currently contributing to functional limitations. Pt very pleasant and participatory in PT assessment. Able to mobilize well, but with increased pain noted. Pt also fatigued after activity, but reporting pain medication makes her drowsy. Primarily limited by pain and amount of lines/tubes at this time. Anticipate she will continue to progress well during hospital course, pending ongoing mobility. Expect DC home once medically ready. Pt will benefit from skilled therapy services throughout hospitalization to promote safety, independence, and provide developmental support/caregiver education. Discharge Recommendations: Based on the current findings, Anticipated Discharge Disposition (PT): home with supervision, home with home health when medically ready for hospital discharge. Discharge recommendation is based on the patient's current physical impairments, prior functional status, potential to return to prior level of function, patient motivation, reported home support, potential for functional gains, current level of endurance, reported home environment and anticipated trajectory of progress and may change based on patient progress during this hospitalization. Consult Recommendations: No other consults recommended at this time. Equipment Needs: Anticipated Equipment Needs at Discharge (PT): walker, front wheeled Transportation Needs: car Cleared Physical Therapy? NO X Consult service will continue to follow patient. PT signing off. Recommendations above, page if further consultation required. Goals: To be achieved by 08/31/22: Pt. to demonstrate knowledge of safety limitations and precautions Pt. to demonstrate understanding of appropriate exercises. Pt. to perform supine to/from sitting EOB with modified independence Pt. to perform sit to/from stand transfers with supervision and LRAD Pt. to ambulate 150 feet with supervision and least restrictive assistive device Pt. to ambulate up/down at least 3 step/stairs using least restrictive assistive device w/ CGA Plan: Therapy Frequency (PT): 2-4 times/wk for therapy including balance training, bed mobility training, gait training, home exercise program, patient/family education, stair training, and transfer training. Patient/family understand and agree with plan as stated above. 2017 PT Evaluation Code Rationale: Diagnosis & Pertinent Co-Morbidities, personal factors, and present illness affecting Plan of Care: (see above); Additional personal factors or co- morbidities that impact plan: Total # of Factors: (home set up) 0 1-2 3+ x Examination of body system impairments, functional limitations and behaviors, and/or participation restrictions. Addressing 1-2 elements Addressing 3 + elements Addressing 4 + elements x Clinical presentation: See assessment above. (Pain, fatigue) Stable/Uncomplicated Evolving/Fluctuating Symptoms Unstable/Unpredictable x Clinical decision making of moderate complexity based on pt's functional performance as outlined inthis evaluation. Time IN / OUT: 2334-6581 Total Minutes, Physical Therapy: 35 Billing Code: x1 mod ben Thank you for this consult. Viola Kathleen, PT Pager: [phone] Physical Therapy Inpatient Rehabilitation Department * Toño Pacheco MD - 08/23/2022 10:47 AM EDT OTOLARYNGOLOGY - HEAD & NECK SURGERY DAILY PROGRESS NOTE Name: Theresa Hollis Age/Sex: 52 y.o. female Attending: Roberth Lee MD Hospital Day: 3 2 Days Post-Op Patient ID/Reason for Admission Theresa Hollis is a 52 y.o. 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 She underwent tracheostomy, neck exploration, mandible excision, and fibula free flap reconstruction 08/21 with ENT and PRS. Interval History - NGT placed under sedation and direct visualization by ICU team yesterday - No events overnight, no flap concerns - Trickle TF started - AF, VSS - Sleep improved last night Vitals Last value 24hr Range Temperature: 36.6 ??C (97.9 ??F) Temp: [36.6 ??C (97.9 ??F)-38.5 ??C (101.3 ??F)] Heart Rate: 95 Heart Rate: [79-123] Blood Pressure: 148/69 BP: (116-162)/(53-108) Respiratory Rate: 11 Resp: [7-20] SpO2: 94 % SpO2: [92 %-100 %] Intake & Output Intake/Output Summary (Last 24 hours) at 08/23/2022 1048 Last data filed at 08/23/2022 0603 Gross per 24 hour Intake 1431.37 ml Output 1195 ml Net 236.37 ml Physical Exam General: NAD, non-ill appearing, resting comfortably in bed, less anxious today Face: Symmetric without dysmorphic features Eyes: EOMI, conjunctiva healthy Ears: Auricles symmetric, no lesions Nose: Patent nares, grossly normal appearance Oral Cavity/Pharynx: Mucosa is pink, oropharynx symmetric. Mandibular suture lines intact without apparent dehiscence, flap is pink, warm, and well perfused. Neck: Soft, trachea midline. Tracheostomy tube sutured in place with scant bloody secretions surrounding. Good airflow. Chest: Non-labored breathing, regular rate on HTC Neuro: Alert & oriented, moving extremities x 4, communicating via writing Labs Recent Labs 08/23/22 0052 08/22/22 0110 WBC 7.3 6.6 HGB 10.2* 9.5* HCT 29.6* 27.6* PLATELET 216 202 NA 131* 136 K 3.7 4.2 CL 96* 102 CO2 25 26 BUN 7* 6* CREATININE 0.65* 0.64* GLUCOSE 94 149 CALCIUM 8.4* 8.8 MAGNESIUM 0.88 0.66* PHOS 3.2 2.7 Imaging None. ASSESSMENT & PLAN Theresa Hollis is a 52 y.o. female s/p neck exploration, tracheostomy, mandible excision, and fibula free flap reconstruction, 2 Days Post-Op. Theresa is feeling better this AM now that the NGT has been successfully placed. No flap concerns. Appropriate for step down status, Q2hr flap checks. Surgical/Head&Neck: Neck should remain in neutral position Trach suctioning and trach care per RT, HTC in place at all times Apply aquaphor to incisions Peridex mouth rinse Neurologic: Pain controlled with ketamine gtt, idoderm patch, oxycodone PRN, dilaudid PRN. Cardiovascular: PAMELA Pulmonary: Oxygenation on HTC Gastrointestinal: Zofran PRN Genitourinary: Voiding spontaneously Musculoskeletal: PAMELA Fluids/Electrolytes: mIVF @ 50cc/hr; Nutrition: NPO diet (Give Meds) TF today. Infectious Disease: WBC 7.3, Unasyn x 5 days; Peridex Hematology: Hemoglobin 10.2 Endocrine: Home levothyroxine Consults: SICU, PRS Lines: Patient Lines/Drains/Airways Status Active Tubes/Lines/Drains Name Placement date Placement time Site Days Peripheral IV Line - Single Lumen 08/21/22 0838 18 gauge 08/21/22 0838 -- 2 Peripheral IV Line - Single Lumen 08/21/222105 median vein (underside of arm), left 20 gauge 08/21/222105 -- 2 Closed/Suction Drain Right;Anterior Neck Bulb 15 Citizen Of [place] 08/21/221946 Neck 2 Naso/Oral Tube 08/22/221814 nasogastric left nostril 08/22/221814 left nostril 1 Trach Airway 08/21/22194708/21/221947 -- 2 Prophylaxis: Lovenox, SCD, activity per PRS Disposition: Step down status, Attempt Cardiopulmonary Resuscitation - Inpatient Discharge: Plan for d/c TBD; Needs trach supplies, suction, VNA; Follow-up ENT Toño Pacheco MD, PGY1 08/23/22 10:48 AM ENT Team Pager: [phone] * Kelly Laguna MD - 08/23/2022 8:01 AM EDT Plastic Surgery Inpatient Progress Note (Team Pager #[phone] Date of surgery: 08/21/22 CC/Procedure(s): Oromandibular reconstruction with right fibula free flap, skin graft from R thigh to right leg and submental opening Surgeon: Luz Elena Subjective/IE: NG tube placed yesterday. Started on TF. Doing well without complaints. Objective: BP 148/69 Pulse 95 Temp 36.6 ??C (97.9 ??F) (Axillary) Resp 11 Ht 157.5 cm (5' 2) Wt 46.7 kg (102 lb 15.3 oz) SpO2 94% BMI 18.83 kg/m?? Intake/Output Summary (Last 24 hours) at 08/23/2022 0801 Last data filed at 08/23/2022 0603 Gross per 24 hour Intake 1879.17 ml Output 1405 ml Net 474.17 ml General: Resting comfortably in no acute distress. Neuro: Awake, alert, responds to questions appropriately. CV: RRR on monitor Pulm: Unlabored on RA HEENT: Flap warm and well perfused with strong doppler signal, skin paddle euchromic with donor site, stsg appears healthy, inset incision intact, neck incision intact with shayna, drain x1 w/ serosanguinous output. RLE: Wound vac in place to lower leg and holding suction. Allevyn in place to thigh without strikethrough. Labs: Recent Labs 08/23/22 0052 WBC 7.3 HGB 10.2* HCT 29.6* NA 131* K 3.7 CL 96* BUN 7* CREATININE 0.65* CO2 25 GLUCOSE 94 ANIONGAP 10 CALCIUM 8.4* Micro: N/A Imaging/Studies: N/A Assessment: Theresa Hollis is a 52 y.o. female s/p oromandibular reconstruction with a fibula free flap 08/21. Recovering well so far. Ng tube placed yesterday now on TF. Plan: Q2h flap checks, step down Dressings/Drains: Strip and record drain output. Vac off 08/26. Allevyn off 09/04 Antibiotics: Unasyn x5d Diet: NPO, TF Activity: TTWB in boot when out of bed DVT prophylaxis: SCD left leg, lovenox May start PT Remainder of care per primary team CALLY Baker Plastic Surgery Inpatient Team Pager #[phone] Attending: Pt seen and examined. Introral repair is intact. Flap is well perfused. Drain is serous.Agree with plan as documented. Kelly Laguna MD Plastic Surgery * Jennifer Wong, RT - 08/22/2022 7:45 PM EDT AMV Protocol: Yes SBT Protocol: Yes SBT: not done or needed Vent Settings: Ventilator Mode: VC Tidal Volume Set: 380 Resp Rate Set: 14 PEEP Set: 5 FiO2: 37 % Ventilator Measurements: Resp: 15 Vt Exhaled: 379 PIP: 19 MAP: 7 Plateau Press: Ve: 6.4 PEEP: SpO2: 95 % EtCO2: 37 mmHg Trach airway: Size: 6, Type: Shiley, Style: CN Cuff Pressure: 28, Skin Integrity: WDL To go kit, sign, and all emergency equipment is at the bedside. Trach care done at the start of shift. Breath Sounds: diminished and clear Secretions: small/pink tinged/thin Assessment / Events / Plan of the Day: Pt received back on the vent due to needing to be sedated atthe bedside for the placement of an NG tube. RT received a call that the pt was wide awake with propofol off and requested to get off the ventilator and go back to the heated trach collar. 1939: pt placed on HTC 40 LPM and 21% with stable vitals, visiting with and much more comfortable. Vent will remain at bedside over night. Pt stable all night on the HTC. Will continue to monitor and support. RT Josh * Migel Eaton MD - 08/22/2022 4:50 PM EDT PM flap check: Patient has been febrile to 38.5, rest of vitals have remained stable. On exam, flap is warm and well perfused with strong doppler signal, skin paddle with good color, inset incision intact. Neck incision intact with shayna. Drains with serosanguinous output. Wound vac in place holding suction to right lower extremity. Allevyn in place to thigh without strikethrough. Will continue to monitor. Migel Eaton, PGY-2 Plastic & Reconstructive Surgery Pager: [phone] * Lenora Jorge RD - 08/22/2022 1:57 PM EDT Nutrition Consult Note Theresa Hollis is a 52 y.o. female admitted post op mandible resection, prosthesis, skin graft, and new tracheostomy. 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 Reason for Assessment: ICU Tube Feeding Nutrition Recommendations: Continuous TEN recommendations below. Please contact clinical nutrition when patient is ready to begin bolus feeds. Enteral Nutrition: Impact Peptide 1.5 with a goal rate of 47 ml per hour plus 1 scoops of protein powder daily. This rate is calculated to compensate for unplanned time off feedings due to potential procedures, etc. At goal, this will provide: Impact Peptide 1.5 Total Volume Per Day: 940 mL Scoops of Protein Powder: 1 Calories per Day: 1435 Protein per Day: 94 g Free Water mL per Day: 773.8 % RDI: 94 % Suggest daily B12 supplementation - order pended. Daily weights. Mg and Phos on daily labs. Monitor hydration status on above TFs as they are concentrated. Pt may need additional fluids depending on IVFs, med flushes, p.o. Intake, etc. I was able to discuss plan with provider CC Red 2 Provider Julian Root APRN . Current Nutrition Regimen: Active Orders Diet NPO diet (Give Meds) Frequency: Effective Now Number of Occurrences: Until Specified Assessment: Lab Results Component Value Date NA 136 08/22/2022 K 4.2 08/22/2022 CL 102 08/22/2022 CO2 26 08/22/2022 BUN 6 (L) 08/22/2022 CREATININE 0.64 (L) 08/22/2022 ESTGFR 107 08/22/2022 MAGNESIUM 0.66 (L) 08/22/2022 CALCIUM 8.8 08/22/2022 PHOS 2.7 08/22/2022 [id number] 213 (L) 08/22/2022 Lab Results Component Value Date POCGLU 172 08/21/2022 Patient Lines/Drains/Airways Status Active Nutritional LDAs Name Placement date Placement time Site Days Peripheral IV Line - Single Lumen 08/21/22 0838 18 gauge 08/21/22 0838 -- 1 Peripheral IV Line - Single Lumen 08/21/222105 median vein (underside of arm), left 20 gauge 08/21/222105 -- 1 NPWT 08/21/22 1825 leg 08/21/22 1825 -- 1 Closed/Suction Drain Right;Anterior Neck Bulb 15 Citizen [place] 08/21/22 1947 Neck 1 Urethral Catheter 08/21/22 0845 14 08/21/22 0845 -- 1 Oxygen Therapy / Airway Device: High flow mask Shift Pressure Injury Prevention Occiput: No Injury Thoracic Spine: No Injury Sacral: No Injury Ischial - left: No Injury Ischial - right: No Injury Heel - left: No Injury Heel - right: No Injury Elbow - left: No Injury Elbow - right: No Injury Device Sites: O2 sat monitor, oxygen tubing, SCD's/venodynes, IV sites, henson Other Sites: farrukh, idb Last Bowel Movement: (CERTIFIED NURSE) Intake/Output Summary (Last 24 hours) at 08/22/2022 1358 Last data filed at 08/22/2022 1200 Gross per 24 hour Intake 5061.8 ml Output 2750 ml Net 2311.8 ml Relevant medications: Continuous ketamine 0.18 mg/kg/hr (08/22/22 1319) lactated Ringers 50 mL/hr (08/22/22 1259) Scheduled melatonin 6 mg Per G Tube Daily after dinner folic acid 1,000 mcg Per G Tube Daily thiamine 100 mg Per G Tube Daily shift total and Settings verification Intravenous 2 Times Daily - Shift Total enoxaparin 30 mg Subcutaneous Nightly PHENobarbitaL 0.48 mg/kg/dose Oral BID Followed by [START ON 08/23/2022] PHENobarbitaL 0.24 mg/kg/dose Oral BID Followed by [START ON 08/24/2022] PHENobarbitaL 0.12 mg/kg/dose Oral BID bisacodyL 10 mg Rectal Daily levothyroxine 100 mcg Per NG tube Daily chlorhexidine 15 mL Oral TID pantothenic Ac-Min Oil-Pet,Hyd 1 each Topical (Top) BID ampicillin-sulbactam 3 g Intravenous Q8H SHOSHANA lidocaine 2 patch Transdermal Q24H PRN oxyCODONE, polyethylene glycoL (MIRALAX) oral powder, magnesium sulfate OR magnesium sulfate, HYDROmorphone OR HYDROmorphone OR HYDROmorphone, PHENobarbitaL, sodium chloride 0.9 % (flush), lidocaine, ondansetron, prochlorperazine Anthropometrics: Admit Weight: 43.91 kg Estimated body mass index is 18.91 kg/m?? as calculated from the following: Height as of this encounter: 157.5 cm (5' 2). Weight as of this encounter: 46.9 kg (103 lb 6.3 oz). [place] Body Weight (IBW) (kg): 50 Wt Readings from Last 10 Encounters: 08/22/22 46.9 kg (103 lb 6.3 oz) 06/01/22 44.3 kg (97 lb 9.6 oz) 03/16/22 44.5 kg (98 lb 3.2 oz) 10/18/21 45.4 kg (100 lb) 10/05/21 46.1 kg (101 lb 9.6 oz) 09/05/21 46.1 kg (101 lb 11.2 oz) 08/18/21 43.1 kg (95 lb) 07/04/21 43.1 kg (95 lb) 03/07/21 43.1 kg (95 lb) 11/01/20 45.3 kg (99 lb 12.8 oz) Patient Vitals for the past 168 hrs: Weight 08/22/22 0500 46.9 kg (103 lb 6.3 oz) 08/21/22 0620 43.9 kg (96 lb 12.8 oz) Weight Source: Bed Estimated / Assessed Needs: Kcal / K - 1407 Kcal (25 Kcal/Kg - 30 Kcal/Kg) Estimated Protein Needs: 56.28 - 94 g (1.2 g/Kg - 2.0 g/Kg) Nutrition intake and intake history / interview: 08/22: Consulted for TEN recommendations. Do not seeenteral access at this time in the [facility]. Nutrition Focused Physical Exam: Not performed Malnutrition Diagnosis: Not enough data to assess (Fransisca, JPEN J Parenteral Enteral Nutr. 2012 July; 36(3): 273-83) Nutrition to continue to follow up while inpatient Thank you, Lenora Jorge RDN, CNSC, LD Clinical Nutrition * Lesly Canela, [facility] - 08/22/2022 12:04 PM EDT Respiratory Therapy Heated Humidified High Flow INDICATIONS: Heat/Humidification HIGH FLOW SETTINGS: Interface: High flow mask Flow: 40 L/min FiO2: 21 % VITAL SIGNS: HR: 88 RR: 16 SpO2: 96 % Trach airway: Size: 6, Type: Shiley, Style: CN Cuff Pressure: 26, Skin Integrity: WDL BREATH SOUNDS: Clear. ASSESSMENT: Pt received on the above TC and RA. Has tolerated well t/o the day. PLAN: Continue to support pt and do trach care. Lesly Canela RCP * Tim Felton MD - 08/22/2022 10:24 AM EDT STAFF PROGRESS NOTE Critical Care Medicine Author: TIM FELTON MD Patient seen and examined on critical care rounds. Theresa Hollis is a 52 y.o. female with the following active issues:: Mandible reconstruction ASSESSMENT, MANAGEMENT, and DECISION MAKING: Neuro: pain and anxiety remain challenging, will try low dose ketamine infusion and phenobarb Hemodynamics: satisfactory BP without need for pressors; lactate normal Pulmonary: on trach collar with acceptable saturation Renal:Cr stable GI: plan to place NG Heme: Lovenox to start tonight; elevated MCV will check B12 level Endo: glucose control acceptable ID: Unasyn EXAM: Physical Exam Trach in place, writes answers to questions Lungs: clear Heart: RRR Abdomen: soft Ext: minimal edema Last value Range last 24 hrs Temperature Temp: (!) 38.1 ??C (100.6 ??F) Temp: [36.1 ??C (97 ??F)-38.2 ??C (100.8 ??F)] Heart Rate Heart Rate: 91 Heart Rate: [60-98] Blood Pressure BP: 151/64 BP: (115-151)/(52-77) Respiratory Rate Resp: 14 Resp: [5-19] SpO2 SpO2: 96 % SpO2: [96 %-100 %] Art BP BP (Arterial Line): 98/92 BP (Arterial Line): (98)/(92) Last Ht 08/21/22 157.5 cm (5' 2) Last Wt 08/22/22 46.9 kg (103 lb 6.3 oz) Body mass index is 18.91 kg/m??. IS PATIENT CRITICALLY ILL ? Is there a high potential of sudden, clinically significant, or life threatening deterioration? No Is there a need for direct personal assessment and management to treat/prevent multiple vital organfailure/deterioration? No TIM FELTON MD 08/22/2022 * Kelly Laguna MD - 08/22/2022 9:13 AM EDT Plastic Surgery Inpatient Progress Note (Team Pager #[phone]) Date of surgery: 08/21/22 CC/Procedure(s): Oromandibular reconstruction with right fibula free flap, skin graft from R thigh to right leg and submental opening Surgeon: Luz Elena Subjective/IE: LASHON, VSS overnight, patient complains of right calf soreness this morning, offers noother complaints. Objective: BP 151/64 Pulse 91 Temp (!) 38.1 ??C (100.6 ??F) Resp 14 Ht 157.5 cm (5' 2) Wt 46.9 kg (103 lb 6.3 oz) SpO2 96% BMI 18.91 kg/m?? Intake/Output Summary (Last 24 hours) at 08/22/2022 0914 Last data filed at 08/22/2022 0800 Gross per 24 hour Intake 7754 ml Output 3220 ml Net 4534 ml General: Resting comfortably in no acute distress. Neuro: Awake, alert, responds to questions appropriately. CV: RRR on monitor Pulm: Unlabored on RA HEENT: Flap warm and well perfused with strong doppler signal, skin paddle euchromic with donor site, inset incision intact, neck incision intact with shayna, drain x1 w/ serosanguinous output. RLE: Wound vac in place to lower leg and holding suction. Allevyn in place to thigh without strikethrough. Labs: Recent Labs 08/22/22 0110 WBC 6.6 HGB 9.5* HCT 27.6* NA 136 K 4.2 CL 102 BUN 6* CREATININE 0.64* CO2 26 GLUCOSE 149 ANIONGAP 8 CALCIUM 8.8 Micro: N/A Imaging/Studies: N/A Assessment: Theresa Hollis is a 52 y.o. female s/p oromandibular reconstruction with a fibula free flap 08/21. Recovering well so far. Plan: Q1h flap checks Dressings/Drains: Strip and record drain output. Vac off 08/26. Allevyn off 09/04 Antibiotics: Unasyn x5d Diet: NPO now. Start trickle TF later if doing well Activity: TTWB in boot when out of bed DVT prophylaxis: SCD left leg, enoxaparin starting tonight Remainder of care per primary team Plastic Surgery Inpatient Team Pager #[phone] Attending: Pt seen and examined. I agree with the plan as outlined. Kelly Laguna MD Plastic Surgery * Toño Pacheco MD - 08/22/2022 8:10 AM EDT OTOLARYNGOLOGY - HEAD & NECK SURGERY DAILY PROGRESS NOTE Name: Theresa Hollis Age/Sex: 52 y.o. female Attending: Roberth Lee MD Hospital Day: 2 1 Day Post-Op Patient ID/Reason for Admission Theresa Hollis is a 52 y.o. 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 She underwent tracheostomy, neck exploration, mandible excision, and fibula free flap reconstruction 08/21 with ENT and PRS. Interval History - Transported to ICU in stable condition - No events overnight, no flap concerns - Tmax overnight 38.2 - Reports no sleep overnight, feeling anxious this AM Vitals Last value 24hr Range Temperature: (!) 38.2 ??C (100.8 ??F) Temp: [36.1 ??C (97 ??F)-38.2 ??C (100.8 ??F)] Heart Rate: 92 Heart Rate: [60-98] Blood Pressure: 149/64 BP: (115-149)/(52-77) Respiratory Rate: 15 Resp: [5-19] SpO2: 97 % SpO2: [96 %-100 %] Intake & Output Intake/Output Summary (Last 24 hours) at 08/22/2022 0810 Last data filed at 08/22/2022 0552 Gross per 24 hour Intake 7754 ml Output 2900 ml Net 4854 ml Physical Exam General: NAD, non-ill appearing, resting comfortably in bed, mildly anxious Face: Symmetric without dysmorphic features Eyes: EOMI, conjunctiva healthy Ears: Auricles symmetric, no lesions Nose: Patent nares, grossly normal appearance Oral Cavity/Pharynx: Mucosa is pink, oropharynx symmetric. Mandibular suture lines intact without apparent dehiscence, flap is pink, warm, and well perfused. Neck: Soft, trachea midline. Tracheostomy tube sutured in place with scant bloody secretions surrounding. Good airflow. Chest: Non-labored breathing, regular rate on HTC Neuro: Alert & oriented, moving extremities x 4, communicating via writing Labs Recent Labs 08/22/22 0110 WBC 6.6 HGB 9.5* HCT 27.6* PLATELET 202 NA 136 K 4.2 CL 102 CO2 26 BUN 6* CREATININE 0.64* GLUCOSE 149 CALCIUM 8.8 MAGNESIUM 0.66* PHOS 2.7 Imaging None. ASSESSMENT & PLAN Theresa Hollis is a 52 y.o. female s/p neck exploration, tracheostomy, mandible excision, and fibula free flap reconstruction, 1 Day Post-Op. Theresa is somewhat anxious this AM but is recovering well from a surgical perspective. No flap concerns. She currently lacks enteral access; discussed with ICU team and we are in favor of them placingDHT in order to start trickle TF--please secure with silk tape + mastisol instead of bridle, about which the patient is anxious. Surgical/Head&Neck: Neck should remain in neutral position Trach suctioning and trach care per RT, HTC in place at all times Apply aquaphor to incisions Peridex mouth rinse Neurologic: Pain controlled with lidoderm patch, dilaudid PRN. Cardiovascular: ERIK Pulmonary: Oxygenation on HTC Gastrointestinal: Zofran PRN Genitourinary: OK for henson out Musculoskeletal: PAMELA Fluids/Electrolytes: mIVF @ 100cc/hr; Nutrition: NPO diet (Give Meds) OK for trickle TF when enteral access established. Infectious Disease: WBC 6.6, Unasyn x 5 days; Peridex Hematology: Hemoglobin 9.5 Endocrine: Home levothyroxine Consults: SICU, PRS Lines: Patient Lines/Drains/Airways Status Active Tubes/Lines/Drains Name Placement date Placement time Site Days Peripheral IV Line - Single Lumen 08/21/22 0737 cephalic vein (lateral side of arm), left 20 gauge 08/21/22 0737 -- 1 Peripheral IV Line - Single Lumen 08/21/22 0838 18 gauge 08/21/22 0838 -- 1 Peripheral IV Line - Single Lumen 08/21/22 2106 median vein (underside of arm), left 20 gauge 08/21/22 2106 -- 1 Closed/Suction Drain Right;Anterior Neck Bulb 15 Citizen [place] 08/21/22 194 Neck 1 Urethral Catheter 08/21/22 0845 14 08/21/22 0845 -- 1 Trach Airway 08/21/22194708/21/221947 -- 1 Prophylaxis: OK for lovenox tonight, SCD, activity per PRS Disposition: Critical Care status, Attempt Cardiopulmonary Resuscitation - Inpatient Discharge: Plan for d/c TBD; Needs trach supplies, suction, VNA; Follow-up ENT Toño Pacheco MD, PGY1 08/22/22 8:10 AM ENT Team Pager: [phone] * Jatinder Myers MD - 08/22/2022 12:30 AM EDT Plastic Surgery Post Op Check Patient ID: Theresa Hollis is a 52 y.o. 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 Procedure(s): EXCISION OF BONE, MANDIBLE (WRVU 10.03) @CERVICAL LYMPHADENECTOMY (MODIFIED RADICAL NECK DISSECTION)-JANA , ROBOTIC (WRVU 23.95) TRACHEOSTOMY, PLANNED (WRVU 5.56) RECONSTRUCT MANDIBLE OR MAXILLA, ENDOSTEAL IMPLANT, COMPLETE (WRVU 18.77) IMPRESSION AND CUSTOM PREPARATION,MANDIBULAR RESECTION PROSTHESIS (WRVU 22.85) @FLAP, FREE OSTEOCUTANEOUS W MICROVASC, FIBULA (WRVU 45.43) RECONSTRUCT MANDIBLE, EXTRAORAL, W/ TRANSOSTEAL BONE PLATE (WRVU 13.62) SPLIT THICK SKIN GRAFT,100 SQ CM OR LESS, LEGS (WRVU 9.9) ADJ.TISSUE TRANSFER, REARRANGEMENT, 10SQ.CM OR LESS, NECK (WRVU 8.6) Subjective: No nausea/vomiting, chest pain, SOB, pain well controlled, offers no complaints Objective: Temp: [36.1 ??C (97 ??F)-37.8 ??C (100 ??F)] Heart Rate: [60-98] Resp: [5-19] BP: (115-149)/(52-77) SpO2: [96 %-100 %] Heart Rate from SpO2: [60 bpm-98 bpm] I/O this shift: In: 931 [I.V.:581; Other:250; IV Piggyback:100] Out: 555 [Urine:465; Drains:40; Blood:50] Physical Exam General: resting comfortably, no acute distress HEENT: normocephalic, atraumatic CVS: regular rate Pulm: 40 L/min 21 FiO2 via trach collar Abd: soft, non tender, non distended Neuro: no focal deficits, moving all extremities Incision: c/d/i, no evidence of hematoma Flap: doppler signal present. Cap refill <2 sec. Alafaya. WWP Assessment/Plan: Theresa Hollis is a 52 y.o. female s/p mandible reconstruction with free fibula flap currently in stable condition and recovering well. - pain well controlled - hemodynamically stable - UOP adequate Jatinder Myers MD Pager: [phone] * Jatinder Myers MD - 08/22/2022 12:29 AM EDT OTOLARYNGOLOGY - HEAD & NECK SURGERY POST OP CHECK Name: Theresa Hollis Age/Sex: 52 y.o. female Attending: Roberth Lee MD Hospital Day: 2 1 Day Post-Op Patient ID/Reason for Admission Theresa Hollis is a 52 y.o. 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 Interval History Surgery: Procedure(s): EXCISION OF BONE, MANDIBLE (WRVU 10.03) @EXPLORATION NOT FOLLOWED BY SURGICAL REPAIR, ARTERY; NECK (CAROTID OR SUBCLAVIAN) (WRVU 7.5) RECONSTRUCT MANDIBLE, EXTRAORAL, W/ TRANSOSTEAL BONE PLATE (WRVU 13.62) TRACHEOSTOMY, PLANNED (WRVU 5.56) RECONSTRUCT MANDIBLE OR MAXILLA, ENDOSTEAL IMPLANT, COMPLETE (WRVU 18.77) IMPRESSION AND CUSTOM PREPARATION,MANDIBULAR RESECTION PROSTHESIS (WRVU 22.85) @FLAP, FREE OSTEOCUTANEOUS W MICROVASC, FIBULA (WRVU 45.43) Subjective/Events: Patient denies fever, chills, chest pain, shortness of breath, dizziness, headache, abdominal pain, nausea, vomiting, numbness, tingling. Pain well-controlled. Vitals Last value 24hr Range Temperature: 37.8 ??C (100 ??F) Temp: [36.1 ??C (97 ??F)-37.8 ??C (100 ??F)] Heart Rate: 73 Heart Rate: [60-98] Blood Pressure: 128/61 BP: (115-149)/(52-92) Respiratory Rate: 12 Resp: [5-20] SpO2: 96 % SpO2: [96 %-100 %] Intake & Output Intake/Output Summary (Last 24 hours) at 08/22/2022 0029 Last data filed at 08/22/2022 0012 Gross per 24 hour Intake 7181 ml Output 2355 ml Net 4826 ml Physical Exam General: NAD, non-ill appearing Face: Symmetric without dysmorphic features Eyes: EOMI, conjunctiva healthy Ears: Auricles symmetric, no lesions Nose: Patent nares, grossly normal appearance Oral Cavity/Pharynx: Mucosa is pink, oropharynx symmetric Neck: Soft, trachea midline Chest: Unlabored breathing, regular rate Neuro: Alert & oriented, moving extremities x 4 Labs No results for input(s): WBC, HGB, HCT, PLATELET, PT, INR, PTT, NA, K, CL, CO2, BUN, CREATININE, GLUCOSE, CALCIUM, MAGNESIUM, PHOS in the last 72 hours. Imaging No post-imaging ASSESSMENT & PLAN Theresa Hollis is a 52 y.o. female s/p Procedure(s): EXCISION OF BONE, MANDIBLE (WRVU 10.03) @EXPLORATION NOT FOLLOWED BY SURGICAL REPAIR, ARTERY; NECK (CAROTID OR SUBCLAVIAN) (WRVU 7.5) RECONSTRUCT MANDIBLE, EXTRAORAL, W/ TRANSOSTEAL BONE PLATE (WRVU 13.62) TRACHEOSTOMY, PLANNED (WRVU 5.56) RECONSTRUCT MANDIBLE OR MAXILLA, ENDOSTEAL IMPLANT, COMPLETE (WRVU 18.77) IMPRESSION AND CUSTOM PREPARATION,MANDIBULAR RESECTION PROSTHESIS (WRVU 22.85) @FLAP, FREE OSTEOCUTANEOUS W MICROVASC, FIBULA (WRVU 45.43). Patient is doing well postoperatively. Continue with current care plan. __ Jatinder Myers MD, PGY1 08/22/22 12:29 AM ENT Team Pager: [phone] * Jennifer Wong, RT - 08/21/2022 8:30 PM EDT AMV Protocol: Yes SBT Protocol: Yes SBT: passed Vent Settings: Ventilator Mode: PS/CPAP PEEP Set: 8 FiO2: 43 % PSV: 12 Ventilator Measurements: Resp: 10 Vt Spontaneous: Ve: 10.7 SpO2: 100 % EtCO2: Trach airway: Size: 6, Type: Shiley, Style: CN Cuff Pressure: mov, Skin Integrity: Exception: reddened and drainage to go kit, sign,and all emergency equipment is at the bedside. Breath Sounds: diminished Secretions: small/blood tinged/thin Assessment / Events / Plan of the Day: weaned to PSV as soon as she was settled from the OR. Wean as tolerated and do trach care every 4 hours. 2200: weaned to 5/5/30% 2305: weaned to C-PAP of 5 2335: placed on HTC 40 LPM and 21% and vitals have been stable. Will continue to monitor and support. RT Josh documented in this encounter H&P Notes * Francisco Oliver MD - 09/05/2022 11:55 AM EDT IR PROCEDURE NOTE Procedure: Gastrostomy tube placement. Indication for Procedure: Per Princess ALAMO, Theresaarmen Hollis is a 52 y.o. female with PMH of SCCa of the left lateral tongue who presents to Interventional Radiology to undergo gastrostomy tube placement with anesthesia support. Patient is s/p hemiglossectomy, left neck dissection 1-5, skin graft, allograft (10/31/06) followed by adjuvant chemo XRT now presenting with ORN of the mandible. She underwent tracheostomy, neck exploration, mandible excision, and fibula free flap reconstruction 08/21 with ENT and PRS. Patient previously had a G-tube (~2006, not at ) and is reportedly worked well for her, so expressed desire for replacement, as she does not believe she can meet her nutritional demands with PO intake alone. Given above, primary team consulted IR for gastrostomy tube placement. She is currently AVSS, with trach airway device in place. Per primary team, patient is consentable. Procedure events and findings: Patient was positioned supine on the procedure table under Anesthesia. Prophylactic antibiotic was administered. The epigastrium was prepared in sterile fashion after U/S to determine the left lateral and caudal extent of the liver. Maximum sterile barrier technique was used throughout. A 4 Citizen [place] glide catheter was placed as a nasoenteric tube under fluoroscopy with the aid of a Glidewire. Catheter was used for insufflation of the stomach. The skin over the stomach was infiltrated with 1% lidocaine for local anesthesia. An 18 ga needle was advanced under fluoroscopic guidance into the stomach with return of air and contrast injection showing gastric folds. A T anchor was deployed. Two additional T anchors were placed in the same manner. In the triangle formed by the T anchors, an 18ga needle was directed into the gastric lumen, confirmed with aspiration and contrast injection. Over an 0.035?? guidewire, the tract was dilated with an 8mm balloon catheter. A 16 Citizen [place] balloonretained gastrostomy tube was placed. The retention balloon of the gastrostomy tube was filled with5 cc of sterile water and contrast injection via the gastrostomy tube confirmed location within thegastric lumen. Medications: 1% Lidocaine <10ccs subcutaneous, glucagon 1 mg IV, and as per Anesthesia. Antibiotic Prophylaxis: Ancef 2 grams IV. Est Blood Loss: <5cc. Complications: No immediate. Impression: 1. Placement of 16Fr balloon retained gastrostomy tube, ready for use. 2. Gastric retention T anchors to be released in 7-10 days. Resident/Fellow: None. Attending: Dr. Melody Romano performed this procedure. 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 There are no answered order specific questions. History of Present Illness: Per chart review, Theresa Hollis is a 52 y.o. female with PMH of SCCaof the left lateral tongue who presents to Interventional Radiology to undergo gastrostomy tube placement with anesthesia support. Patient is s/p hemiglossectomy, left neck dissection 1-5, skin graft, allograft (10/31/06) followed by adjuvant chemo XRT now presenting with ORN of the mandible. She underwent tracheostomy, neck exploration, mandible excision, and fibula free flap reconstruction 08/21 with ENT and PRS. Patient previously had a G-tube (~2006, not at ) and is reportedly worked well for her, so expressed desire for replacement, as she does not believe she can meet her nutritional demands with PO intake alone. Given above, primary team consulted IR for gastrostomy tube placement. She is currently AVSS, with trach airway device in place. Per primary team, patient is consentable. Remainder of patient's medical and surgical history, allergies, medications, and social/family history obtained below as previously outlined in patient's medical record. IR History: None listed Anticoagulation/Antiplatelet: Lovenox 30mg SQ nightly Labs: Lab Results Component Value Date HGB 9.7 (L) 08/31/2022 HCT 29.3 (L) 08/31/2022 WBC 8.8 08/31/2022 PLATELET 670 (H) 08/31/2022 BUN 19 (H) 09/01/2022 CREATININE 0.42 (L) 09/01/2022 ALBUMIN 4.4 12/06/2016 BILIDIR 0.1 01/25/2015 BILITOT 0.6 12/06/2016 AST 20 12/06/2016 ALT 13 12/06/2016 ALKPHOS 42 12/06/2016 Allergies: Tylenol [acetaminophen], Allergenic gzsuhyz-eles-vakgb, Peanut, Benzocaine, and Birch Imaging: No relevant imaging available Assessment: 52 y.o. female with SCCa of the left lateral tongue presenting to Interventional Radiology for gastrostomy tube placement. Plan Planned procedure: Gastrostomy tube placement Labs to be performed day of procedure: No labs Sedation: Anesthesia Prophylactic antibiotic : Ancef Contrast: No contrast Additional medications for procedure: Lidocaine Position: Supine Consent: Pending Medications to discontinue (and days held): None Cytopathology presence needed: No Case Urgency:: E- Elective IN-patient intervention within 3 days Medications: No current facility-administered medications on file prior to encounter. Current Outpatient Medications on File Prior to Encounter Medication Sig Dispense Refill amoxicillin-clavulanate (Augmentin) 500-125 mg Tablet Take 1 tablet by mouth 2 times daily. 60 tablet 5 fluocinolone and shower cap ([place]-Smoothe/FS Scalp Oil) 0.01 % Oil Apply topically to scalp under shower cap nightly for up to 2 weeks for flares then 1- 3 times weekly prn maintenance. 118 mL 3 ketoconazole (Nizoral) 2 % Cream Apply topically 2 times daily as needed. For rash on face and/or ears (Patient not taking: Reported on 04/29/2021) 30 g 3 acetaminophen (Tylenol) 160 mg/5 mL Suspension Take 15 mg/kg/dose by mouth as needed for Fever. ibuprofen (ADVIL;MOTRIN) 100 mg/5 mL Suspension Take by mouth every 4 hours as needed for Fever. Past Medical/Surgical history: Patient Active Problem List Diagnosis Code Hypothyroidism [...] M62.838 Throat discomfort R07.0 Mandible fracture S02.609A Past Medical History: Diagnosis Date Allergic rhinitis Allergy Cancer of head Cancer of head, face, and neck Carpal tunnel syndrome 10/29/2020 Dry mouth from radiation Herpes Chickenpox as child. Hyperlipidemia Hypothyroidism Past Surgical History: Procedure Laterality Date GLOSSECTOMY Right partial LYMPHADENECTOMY SND 1-5 MO PREP FACE/ORAL PROST MANDIBULAR N/A 08/21/2022 IMPRESSION AND CUSTOM PREPARATION,MANDIBULAR RESECTION PROSTHESIS (WRVU 22.85) performed by Keyur Ng MD at [facility] MA[facility] OR PRO ADJ TISS XFER HEAD, FAC, HAND <10SQCM 08/21/2022 ADJ.TISSUE TRANSFER, REARRANGEMENT, 10SQ.CM OR LESS, NECK (WRVU 8.6) performed by Kelly Laguna MDat [facility] PRO BONE BIOPSY,TROCAR/NEEDLE SUPERF Left 05/06/2014 BIOPSY BONE, TROCAR OR NEEDLE, SUPERFICIAL, MANDIBLE performed by Alfred Vital MD at [facility] PRO BONE-SKIN GRAFT, MICROVASCULAR 08/21/2022 @FLAP, FREE OSTEOCUTANEOUS W MICROVASC, FIBULA (WRVU 45.43) performed by Kelly Laguna MD at [facility] MA[facility] OR PRO CERVICAL LYMPHADECTOMY MODIFIED RADICAL NECK DISSECTION Right 08/21/2022 @CERVICAL LYMPHADENECTOMY (MODIFIED RADICAL NECK DISSECTION)-JANA , ROBOTIC (WRVU 23.95) performed by Roberth Lee MD at [facility] MAIN OR PRO DEBRIDEMENT BONE MUSCLE &/FASCIA 20 SQ CM/< Bilateral 11/17/2019 DEBRIDEMENT SKIN, SUBCU, MUSCLE, BONE, HEAD/NECK (WRVU 4.1) performed by Keyur Ng MD at [facility] MA[facility] OR PRO EXCISION OF BONE, LOWER JAW Bilateral 08/21/2022 EXCISION OF BONE, MANDIBLE (WRVU 10.03) performed by Roberth Lee MD at [facility] MAIN OR PRO INJECTION PLATELET PLASMA WITH IMAGE, HARVEST/PREP 11/17/2019 INJECTION(S), PLATELET RICH PLASMA, ANY SITE, INCLUDING IMAGE GUIDANCE, HARVESTING AND PREPARATION WHEN PERFORMED performed by Keyur Ng MD at [facility] MAIN OR PRO RECONSTR JAW, FULL ENDO IMPLNT N/A 08/21/2022 RECONSTRUCT MANDIBLE OR MAXILLA, ENDOSTEAL IMPLANT, COMPLETE (WRVU 18.77) performed by Keyur Ng MD at [facility] MAIN OR PRO RECONSTR MANDIBLE, BONE PLATE 08/21/2022 RECONSTRUCT MANDIBLE, EXTRAORAL, W/ TRANSOSTEAL BONE PLATE (WRVU 13.62) performed by Kelly Laguna MD at [facility] MAIN OR PRO REMOVAL ERUPTED TOOTH WITH ELEVATION OF MUCOPERIOSTEAL FLAP N/A 05/06/2014 SURGICAL EXTRACTIONS REQUIRING ELEVATION OF MUCOPERIOSTEAL FLAP AND REMOVAL OF BONE OR SECTION OF TOOTH performed by Alfred Vital MD at [facility] MAIN OR PRO REMOVAL ERUPTED TOOTH WITH ELEVATION OF MUCOPERIOSTEAL FLAP Bilateral 11/17/2019 SURGICAL EXTRACTIONS REQUIRING ELEVATION OF MUCOPERIOSTEAL FLAP AND REMOVAL OF BONE OR SECTION OF TOOTH (WRVU 1.09) performed by Keyur Ng MD at [facility] MAIN OR PRO SPLIT GRFT TRUNK, ARM, LEG <100SQCM N/A 08/21/2022 SPLIT THICK SKIN GRAFT,100 SQ CM OR LESS, LEGS (WRVU 9.9) performed by Kelly Laguna MD at [facility] MAIN OR PRO TRACHEOSTOMY, PLANNED N/A 08/21/2022 TRACHEOSTOMY, PLANNED (WRVU 5.56) performed by Roberth Lee MD at [facility] MAIN OR SKIN GRAFT Social History and Habits: Social History Tobacco Use Smoking status: Never Smokeless tobacco: Never Vaping Use Vaping Use: Never used Substance Use Topics Alcohol use: Not Currently Comment: seldom, 4 drinks per year Drug use: No Significant Family History: Family History Problem Relation Age of Onset Breast Cancer Maternal Grandmother Eczema Mother Amblyopia Paternal Uncle Strabismus Neg Hx Macular Degeneration Neg Hx Glaucoma Neg Hx Pertinent ROS: as per HPI Physical Exam: Pending (to be performed in IR the day of procedure) ASA: Pending (to be assessed in IR the day of procedure) Mallampati class: Pending (to be assessed in IR the day of procedure) 09/01/2022 Princess Abarca PA-C * Dona Mao, DO - 08/21/2022 8:30 PM EDT Critical Care - Admission Note History of Present Illness: Theresa Hollis is a 52 y.o. female with PMH HLD, hypothyroidism, and Left base of tongue CA dxed 2006 with resection and neck dissection with adjuvant concurrent cisplatin plus radiation (started 11/26/06, completed 01/07/07) complicated by osteonecrosis of the jaw presented today for tracheostomy, neck exploration, excision of mandible. She underwent mandible reconstruction with free fibula flap from right leg along with split thickness skin graft to neck and right leg donor site. She also had a shiley tracheostomy placed. Review of Systems: Unable to obtain d/t patient sedated with tracheostomy in place. Past Medical Surgery: Past Medical History: Diagnosis Date Allergic rhinitis Allergy Cancer of head Cancer of head, face, and neck Carpal tunnel syndrome 10/29/2020 Dry mouth from radiation Herpes Chickenpox as child. Hyperlipidemia Hypothyroidism Past and Surgical History: Past Surgical History: Procedure Laterality Date GLOSSECTOMY Right partial LYMPHADENECTOMY SND 1-5 PRO BONE BIOPSY,TROCAR/NEEDLE SUPERF Left 05/06/2014 BIOPSY BONE, TROCAR OR NEEDLE, SUPERFICIAL, MANDIBLE performed by Alfred Vital MD at [facility] PRO DEBRIDEMENT BONE MUSCLE &/FASCIA 20 SQ CM/< Bilateral 11/17/2019 DEBRIDEMENT SKIN, SUBCU, MUSCLE, BONE, HEAD/NECK (WRVU 4.1) performed by Keyur Ng MD at [facility] MAIN OR PRO INJECTION PLATELET PLASMA WITH IMAGE, HARVEST/PREP 11/17/2019 INJECTION(S), PLATELET RICH PLASMA, ANY SITE, INCLUDING IMAGE GUIDANCE, HARVESTING AND PREPARATION WHEN PERFORMED performed by Keyur Ng MD at [facility] MAIN OR PRO REMOVAL ERUPTED TOOTH WITH ELEVATION OF MUCOPERIOSTEAL FLAP N/A 05/06/2014 SURGICAL EXTRACTIONS REQUIRING ELEVATION OF MUCOPERIOSTEAL FLAP AND REMOVAL OF BONE OR SECTION OF TOOTH performed by Alfred Vital MD at [facility] MAIN OR PRO REMOVAL ERUPTED TOOTH WITH ELEVATION OF MUCOPERIOSTEAL FLAP Bilateral 11/17/2019 SURGICAL EXTRACTIONS REQUIRING ELEVATION OF MUCOPERIOSTEAL FLAP AND REMOVAL OF BONE OR SECTION OF TOOTH (WRVU 1.09) performed by Keyur Ng MD at [facility] MAIN OR SKIN GRAFT Prior To Admission Medications: Medications Prior to Admission Medication Sig Dispense Refill Last Dose levothyroxine (Synthroid) 100 mcg tablet TAKE ONE TABLET BY MOUTH EVERY DAY 90 tablet 3 08/21/2022 amoxicillin-clavulanate (Augmentin) 500-125 mg Tablet Take 1 tablet by mouth 2 times daily. 60 tablet 5 08/18/2022 fluocinolone and shower cap ([place]-Smoothe/FS Scalp Oil) 0.01 % Oil Apply topically to scalp under shower cap nightly for up to 2 weeks for flares then 1- 3 times weekly prn maintenance. 118 mL 3 ketoconazole (Nizoral) 2 % Cream Apply topically 2 times daily as needed. For rash on face and/or ears (Patient not taking: Reported on 04/29/2021) 30 g 3 acetaminophen (Tylenol) 160 mg/5 mL Suspension Take 15 mg/kg/dose by mouth as needed for Fever. ibuprofen (ADVIL;MOTRIN) 100 mg/5 mL Suspension Take by mouth every 4 hours as needed for Fever. More than a month Current Medications: sodium chloride 0.9 % (flush) (BD PosiFlush Normal Saline 0.9) flush 5-20 mL lidocaine (Xylocaine) 1% (10 mg/mL) injection 3 mg lactated ringers infusion lidocaine-EPINEPHrine (pf) (1% - 1:200,000) injection chlorhexidine (Peridex) 0.12 % oral solution [START ON 08/22/2022] levothyroxine (Synthroid) tablet 100 mcg ondansetron (pf) (Zofran) (2 mg/mL) injection 4 mg [START ON 08/22/2022] enoxaparin (Lovenox) (40 mg/0.4 mL) subcutaneous injection 40 mg polyethylene glycoL (Miralax) packet 17 g prochlorperazine (Compazine) (5 mg/mL) injection 10 mg [START ON 08/22/2022] pantoprazole (Protonix) injection 40 mg oxyCODONE (Roxicodone) tablet 5-10 mg chlorhexidine (Peridex) 0.12 % solution Q-Care Kit pantothenic Ac-Min Oil-Pet,Hyd (Aquaphor) 41 % ointment 1 each sodium chloride 0.9% infusion ampicillin-sulbactam (Unasyn) 3 g vial attach to sodium chloride 0.9% 100 mL Mini-Bag Plus lidocaine (Lidoderm) 5% patch 2 patch lidocaine-EPINEPHrine (1% - 1:100,000) injection HYDROmorphone (Dilaudid) (0.5 mg/0.5 mL) injection syringe HYDROmorphone (Dilaudid) (0.5 mg/0.5 mL) injection syringe 0.4 mg Allergies: Allergies Allergen Reactions Tylenol [Acetaminophen] Anaphylaxis Allergenic Dxoqvpz-Pbxh-Ycnks Itching Applesauce Peanut Itching Benzocaine Made pt tongue red and angry. Irritant reaction - allergy testing negative Birch Other (See Comments) Birch pollen: wheezing and throat constriction Family History: Family History Problem Relation Age of Onset Breast Cancer Maternal Grandmother Eczema Mother Amblyopia Paternal Uncle Strabismus Neg Hx Macular Degeneration Neg Hx Glaucoma Neg Hx Social History and Habits: Social History Socioeconomic [...] on file Housing Stability: Not on file Physical Exam: Last Set of Vitals and range of vitals over past 24 hours: Last value Range last 24 hrs Temperature Temp: 37.2 ??C (99 ??F) Temp: [37.2 ??C (99 ??F)] Heart Rate Heart Rate: 74 Heart Rate: [74] Blood Pressure BP: (!) 123/92 BP: (123)/(92) Respiratory Rate Resp: 20 Resp: [20] SpO2 SpO2: 100 % SpO2: [100 %] Gen: Tracheostmy sutured in place and minimally sedated. HEENT: Sclera non-icteric, PERRL, FARRUKH drain in place. Shayna in place and with flap on underside ofchin. CV: RRR, no m/r/g RESP: CTAB, no wheezing, ventilator BS bilaterally ABD: Soft, normoactive bowel sounds EXT: WWP, palpable pulses bilaterally. Wound vac in place on RLE. Neuro: Grossly intact. Follows commands in all four extremities. Tracks and shakes her head yes andno. Laboratory (Last 24 Hours): Recent Results (from the past 24 hour(s)) BLOOD GAS 2 ARTERIAL Result Value Ref Range pH Art 7.46 (H) 7.35 - 7.45 pCO2 Art 32 (L) 35 - 45 mmHg pO2 Art 75 (L) 85 - 104 mmHg HCO3 Art 23.0 20.0 - 26.0 mmol/L BE Art -1.6 -3.0 - 3.0 mmol/L Hgb Blood Gas 13.4 11.7 - 15.5 g/dL O2HB Art 96.0 94.0 - 97.0 % COHB Art 0.2 % METHB Art 0.3 <=1.5 % Na Whole Blood 134 (L) 135 - 145 mmol/L K Whole Blood 4.0 3.5 - 5.0 mmol/L ICa Whole Blood 1.18 1.15 - 1.33 mmol/L CL Whole Blood 103 98 - 107 mmol/L Gluc Whole Bld 121 65 - 199 mg/dL Lactate WB 1.0 0.5 - 2.2 mmol/L FIO2 Art 66 % Flow Art 0.8 LPM PF Ratio Art 114 Temp Art 34.0 Celsius Microbiology: Blood Cultures:None Urine Cultures: None Radiology: No new imaging Assessment/Plan: Theresa Hollis is a 52 y.o. female with PMH HLD, hypothyroidism, and Left base of tongue CA dxed 2006 with resection and neck dissection with adjuvant concurrent cisplatin plus radiation started 11/26/06, completed 01/07/07, complicated by osteonecrosis of the jaw s/p tracheostomy, neck exploration, excision of mandible and endosteal implant. Admitted to the SICU for flap checks and ventilator weaning. Neuro: - Pain control: acetaminophen, PRN dilaudid - sedation: Propofol, goal to wean overnight HEENT: #Osteoradionecrosis of the mandible, s/p mandibular resection with skin graft #Maxilla, endosteal implant -q1hr flap checks -FARRUKH drain, monitor output -Unasyn q8h (08/21-) MSK: #Fibular flap right leg -Mepilex on RUE skin graft, 14d -Wound vac in RLE, 5-7d CV: - SBP goal: <160, MAP goal > 65 -If hypotensive re-engage ENT, start with IVF or albumin Pulm: - Tracheostomy (08/21): Nicho 6mm - AMV protocol - SBT: Yes -Albuterol nebs prn FEN: LR @ 100 ml/hr GI: -Pantoprazole -NPO give meds -Will need to reassess enteral assess with ENT in the morning : Henson, monitor UOP Endo: #Hypothyroidism - ISS prn - Continue Levothyroxine 100mcg daily ID: Abx per ENT team, see above Heme: -Daily Hemograms PPx: - DVT: SCD's, Hold Lovenox (reassess in the morning with surgical team) - GI: pantoprazole 40mg IV Disp: admit to ICU, Critical Care Red 2 Dona Mao DO 08/21/2022 Associated attestation - Akhil Fuentes MD - 08/21/2022 10:46 PM EDT CRITICAL CARE ATTENDING ATTESTATION NOTE The patient was seen in conjunction with the resident physician. I have independently performed thekey portions of the history and physical exam. I have personally reviewed nursing notes, vital signs, and diagnostic studies including labs, imaging studies and EKGs. I have discussed the details of the case with the resident and agree with the assessment and plan as described in the resident's note. Briefly, 52 y.o. female who presents post op mandible resection, prosthesis, skin graft, and new tracheostomy. Presents to the ICU on sedation and PSV for q1h flap checks. On exam: sedated, no active intraoral bleeding, doppler signal on flap present. Trach sutured in place. RLE flap with wound vac intact. Thigh dressing c/d/I. Vent: PSV with decreasing support, FiO2 30-40% Assessment: Presents to the ICU for flap checks, wean from sedation and mechanical ventilation. Currently on PSV. Will continue flap checks, abx, and target normal BPs favoring fluid admin. No current enteral access. No immediate need. Holding synthroid tonight. IS PATIENT CRITICALLY ILL ? Is there a high potential of sudden, clinically significant, or life threatening deterioration? Yes Is there a need for direct personal assessment and management to treat/prevent multiple vital organfailure/deterioration? Yes PATIENT IS CRITICALLY ILL WITH THESE DIAGNOSES BEING MANAGED BY [facility] TEAM: Respiratory Failure Unspecified I personally performed 30 minutes of aggregate critical care time exclusive of procedures and teaching. This includes time spent during direct patient evaluation and reassessment, interpreting diagnostic tests, directing life and/or organ supporting interventions and documentation on the unit. * Ilda Estrada MD - 08/21/2022 7:35 AM EDT OTOLARYNGOLOGY - HEAD & NECK SURGERY INTERVAL H&P NOTE Name: Theresa Hollis Age/Sex: 52 y.o. female Attending: Roberth Lee MD Hospital Day: 1 Day of Surgery Interval History Please see clinic/scanned H&P dated 06/01. In brief, Theresa Hollis presents today for tracheostomy, neck exploration, excision of mandible. There have been no changes to her history. Patient denies symptoms of COVID, exposure to COVID or any known COVID contacts. Physical Exam Patient Vitals for the past 24 hrs: Temp Pulse Resp BP SpO2 O2 Device 08/21/22 0620 37.2 ??C (99 ??F) 74 20 (!) 123/92 100 % RA Gen: No acute distress, alert and answers questions appropriately CV: Regular rate Pulm: Unlabored breathing Abd: Abdomen soft and non-tender Ext: No peripheral edema ASSESSMENT & PLAN Plan for tracheostomy, neck exploration, excision of mandible. Consent signed, dated, placed in chart Ok to proceed with scheduled operation. Ilda Estrada MD, PGY3 08/21/22 7:36 AM ENT Team Pager: [phone] * Kelly Laguna MD - 08/21/2022 7:30 AM EDT Patient Name: Theresa Hollis Patient Age: 52 y.o. Birthdate: 1970 Admit date: 08/21/2022 Attending Physician: Roberth Lee MD Plastic Surgery Preoperative H&P: Patient Name: Theresa Hollis Patient : 1970 Today's Date: 08/21/2022 Theresa Hollis is a 52 y.o. 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 who presents today forreconstruction with free fibula flap. No changes since last seen. 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 Hyperlipidemia Hypothyroidism Past Surgical History: Procedure Laterality Date GLOSSECTOMY Right partial LYMPHADENECTOMY SND 1-5 PRO BONE BIOPSY,TROCAR/NEEDLE SUPERF Left 05/06/2014 BIOPSY BONE, TROCAR OR NEEDLE, SUPERFICIAL, MANDIBLE performed by Alfred Vital MD at [facility] PRO DEBRIDEMENT BONE MUSCLE &/FASCIA 20 SQ CM/< Bilateral 11/17/2019 DEBRIDEMENT SKIN, SUBCU, MUSCLE, BONE, HEAD/NECK (WRVU 4.1) performed by Keyur Ng MD at [facility] MAIN OR PRO INJECTION PLATELET PLASMA WITH IMAGE, HARVEST/PREP 11/17/2019 INJECTION(S), PLATELET RICH PLASMA, ANY SITE, INCLUDING IMAGE GUIDANCE, HARVESTING AND PREPARATION WHEN PERFORMED performed by Keyur Ng MD at [facility] MAIN OR PRO REMOVAL ERUPTED TOOTH WITH ELEVATION OF MUCOPERIOSTEAL FLAP N/A 05/06/2014 SURGICAL EXTRACTIONS REQUIRING ELEVATION OF MUCOPERIOSTEAL FLAP AND REMOVAL OF BONE OR SECTION OF TOOTH performed by Alfred Vital MD at [facility] MAIN OR PRO REMOVAL ERUPTED TOOTH WITH ELEVATION OF MUCOPERIOSTEAL FLAP Bilateral 11/17/2019 SURGICAL EXTRACTIONS REQUIRING ELEVATION OF MUCOPERIOSTEAL FLAP AND REMOVAL OF BONE OR SECTION OF TOOTH (WRVU 1.09) performed by Keyur Ng MD at [facility] MAIN OR SKIN GRAFT Family History [...] Allergies Allergen Reactions Tylenol [Acetaminophen] Anaphylaxis Allergenic Spxljjq-Zylm-Rbsdh Itching Applesauce Peanut Itching Benzocaine Made pt tongue red and angry. Irritant reaction - allergy testing negative Birch Other (See Comments) Birch pollen: wheezing and throat constriction Review of systems: As per HPI, otherwise non-contributory. Exam: General: NAD Resp: CTAB CV: normal rate, regular rhythm A/P: Theresa Hollis is a 52 y.o. 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 - Proceed to OR. The risks, benefits and indications were reviewed with the patient and there remains an indication for surgery. Consent signed. Anabell Nelson MD Plastic Surgery Resident Pager# [phone] Patient was seen and examined in the preoperative holding area with Dr. Ng. We discussed again the plan for today which would be resection of her mandible that has osteoradionecrosis and then placement of a free fibula. We discussed in detail the planing with her on multiple occasions she felt comfortable proceeding with this her informed consent was reviewed again. She had no new questionsand was motivated to proceed.We discussed potential risks and complications which include but are not limited to: pain, bleeding, infection, scarring, asymmetry, hematoma, seroma, wound healing problems, poor cosmetic outcome, failure of procedure, change in sensation, possible need for revision, damage to adjacent structures. * Keyur Ng MD - 08/21/2022 6:58 AM EDT The patient's history and physical exam have been reviewed and completed. There has been no interval change. CV: regular rate and rhythm without peripheral edema Lungs:non labored breathing Oral exam: no change in exam since last visit Plan is to coordinate surgical care with Drs. Lee and Luz Elena for mandibular resection and reconstruction with vascularized fibula free flap and dental implants and attempts to attach immediate dental prosthesis. Dparq/consent obtained. Risks reviewed and see consent for details. Keyur Ng MD, DMD documented in this encounter Procedure Notes * Anthony Rashid RN - 09/02/2022 4:31 PM EDTAssociated Order(s): PLACE PICC LINE: CONTACT VASCULAR ACCESS PICC/Midline Insertion Procedure Note Indications: TPN This insertion was not to replace a malfunctioning catheter. This insertion was not due to a suspected line-associated infection. Location of Procedure: X-Ray Room 11 Risks and Benefits: The risks and benefits of this procedure were reviewed and informed consent was obtained obtained. Time Out: Prior to the start of the procedure, the patient's identity, intended procedure, site/side, correctpatient positioning and presence of the site chinyere was confirmed as applicable. The medical history and chart were reviewed to rule out potential contraindications to the planned procedure. Hand Hygiene: The cake froster did perform hand hygiene prior to line insertion. Catheter type: PICC Lot number: [id number] Procedure Technique: Skin was prepped with chlorhexidine. Skin preparation agent was completely dry at the time of first skin puncture. The following barrier precaution methods were used:large sterile drape, maske/eye shield, large sterile gown, sterile gloves, and cap. 3 ml of 1% Lidocaine was used for skin wheal. Ultrasound was used for guidance. Radiographic contrast agent was not injected for vein identification. Procedure Details: Order received for catheter placement. A 4 Fr. single lumen Bard Power catheter was placed into theright basilic vein over a 0.018 inch guidewire using modified seldinger technique and fluoroscopy. Arm circumference was 22 cm at 2 cm above the insertion site. Final catheter length (with trimming): 36 cm Internal: 36 cm External: 0 cm Tip in SVC per Cleo Lee. The line was not placed over a guidewire. Post Procedure: Diagnosis: mandible fracture Blood return noted on aspiration of line after placement confirmed. 5 mls of normal saline infused free flowing to gravity via PICC after insertion. Sterile dressing applied: CHG Impregnated Tegaderm. Findings: The patient did tolerate the procedure well. No Complications. Procedure Comments: Successful picc placment Anthony Rashid RN 09/02/2022 * Toño Pacheco MD - 08/28/2022 4:02 PM EDT Pre-Procedure Dx: H/O tracheostomy (Z98.890) Post-procedure Dx: same Procedure: Tracheostomy Tube Change ([id number]) Pre-procedure checklist: Correct Patient Correct time Current Trach tube Correct new trach tube Backup trach available Respiratory therapy notified Additional equipment: 10cc syringe Suction functioning (flexible and yankour) Flashlight available and functioning Surgilube Trach ties Face Masks Gauze, saline, mepilex Suture removal kit Tracheostomy change procedure note: Once all of the above were checked the equipment was brought to the bed and the procedure was begun. The patient was positioned in bed with the bed flat and her neck extended. Any sutures holding the trachplate in place were removed. The cuff was confirmed to be deflated. The existing trach tube wasremoved and the sheila-stomal skin was cleansed. The tract was examined, findings below. A new trach was passed into the stoma and the ties were secured. Correct placement was confirmed by appropriate feel, cough response, and feeling the air movement with respiration. The patient tolerated the procedure well without complications. Findings: - 6UN75H size trach tube removed. - 4UN65H size trach placed without difficulty - Sheila-stomal skin intact. Stoma healthy appearing without false passages or significant granulation tissue. Recommendations: - Ok for routine trach changes. - Keep trach ties snug (should only allow 2 fingers to squeeze under) - Ok for PMV/capping Follow-Up: ENT patient. We will continue to see daily Toño Pacheco MD ENT PGY-1 Personal Pager #[phone] ENT Team Pager #[phone] * Meredith Root APRN - 08/22/2022 6:28 PM EDT Feeding tube placement per direct laryngoscopy: Used a Mac 3 blade for direct visualization of esophagus and larynx s/p three attempts today for nasal enteral tube placement today in the ICU. With manager functional Dr. Berkowitz at bedside, divided doses of 250 mg Propofol and 30mg Rocuronium given while Dilaudid GREENHOUSE WORKER and continuous Ketamine infusion 0.18 mg/kg/hr in place. On direct view, oropharynx very edematous, with copious serosanguinous secretions removed, and with CMAC blade able to eliminate glottic opening and passively advance NGT. Auscultation over gastric bubble revealing for positive gurgling with air installation and suction with bilious output. KUB ordered for placement confirmation. Anesthesia bag originally used with RT at bedside, transitioned to ventilator when paralytic instilled. Will awaken once paralytic wears off and wean off the ventilator. Pt was hemodynamically stable throughout procedure. Meredith Root APRN 08/22/22 documented in this encounter Miscellaneous Notes * Care Management Discharge - Hollie Vang RN - 09/08/2022 11:57 AM EDT CARE MANAGEMENT FINAL DISCHARGE NOTE Chart reviewed, care reviewed with primary team and at interdisciplinary rounds. Patient is medically ready for discharge to home with family support and Shilpi ROMO for [facility] for tube feed/supplies, and [facility] [employer] [facility] for SX machine. Needs for Transition of Care: Plan for discharge is: Home w/ Services Outpatient Agency/Support Group Needs: Homecare agency Resp Needs: *SX machine Company: [facility] [employer] Status: Hospital Delivery Nutrition Type: Tube Feeds Access: PEG / G Tube Location: Referred to [facility] Coordination Home Health Services: Registered Nurse Agency Referrals & Follow-up Care: Contact information for follow-up [facility], [address] [place] [address] [facility], [address] [place] [address] Transportation: family or friend will provide-via private vehicle. Functional status prior to admission: Independent Home Environment: Others in the home: pet(s), spouse (Patient lives with her Stephan and there 2 dogs). Current Living Arrangements: home/apartment/condo. Accessibility Concerns:Patient with 2 steps to enter with 1st floor living.. Current Functional Ability: Independent, Assistive Person DME used at home: none DME Needed at Discharge: none Patient is insured through: Primary Insurance: [place] Pay[place] / [place] / Product Type: *No Product type* / Secondary Insurance: N/A Prescription Coverage: Yes This plan was formulated with input from patient, (please identify family/friend involved if applicable) and team. All are in agreement with plan. Hollie JONES , RN Pager #[phone] * Plan of Care - Araceli Velasco RN - 09/06/2022 4:24 AM EDT OUTCOME EVALUATION NOTE: OUTCOME SUMMARY: Pt A&O, pain moderate. Received PRN x1. Slept well. Up to bathroom with walker and SBA. Makes needs known. Dsg is C/D/I over stoma site. Pt coughing off and on, can self suction as needed. Mood pleasant. TPN running via PICC line. Labs drawn this morning. PLAN MOVING FORWARD: Q4 hr VS & flap checks. Monitor dsg over stoma site. PEG can be used in the a.m. for tube feeds. INDIVIDUALIZED FALL PREVENTION INTERVENTIONS: Patient-specific fall risk factors per assessment: pain, weakness, tubing Assistance: SBA, FWW Supervision: Arms reach Surveillance: Bed locked in low position, call ramirez within reach, purposeful hourly rounding, clutter free environment, bed/chair alarm on Patient-specific fall prevention interventions for sensory deficits provided: N/A CPG GOAL OUTCOME EVALUATION: Continue care plan as documented. * Plan of Care - Joey Mckeon RN - 09/05/2022 2:30 AM EDT Problem: Bleeding (Surgery Nonspecified) Goal: Absence of Bleeding Outcome: Ongoing (Interventions Implemented as Appropriate) Problem: Infection (Surgery Nonspecified) Goal: Absence of Infection Signs and Symptoms Outcome: Ongoing (Interventions Implemented as Appropriate) Problem: Pain (Surgery Nonspecified) Goal: Acceptable Pain Control Outcome: Ongoing (Interventions Implemented as Appropriate) Problem: Adult Inpatient Plan of Care Goal: Plan of Care Review Outcome: Ongoing (Interventions Implemented as Appropriate) Goal: Patient-Specific Goal (Individualized) Outcome: Ongoing (Interventions Implemented as Appropriate) Flowsheets Taken 09/05/2022 0229 Anxieties, Fears or Concerns: none reported Taken 09/04/2022 0516 Individualized Care Needs: pt will maintain acceptable pain level Patient-Specific Goals (Include Timeframe): pt will remain free of injury during shift Goal: Absence of Hospital-Acquired Illness or Injury Outcome: Ongoing (Interventions Implemented as Appropriate) Goal: Optimal Comfort and Wellbeing Outcome: Ongoing (Interventions Implemented as Appropriate) Goal: Readiness for Transition of Care Outcome: Ongoing (Interventions Implemented as Appropriate) Problem: Impaired Wound Healing Goal: Optimal Wound Healing Outcome: Ongoing (Interventions Implemented as Appropriate) Problem: Communication Impairment (Artificial Airway) Goal: Effective Communication Outcome: Ongoing (Interventions Implemented as Appropriate) * Consult Note - Princess Moore MD - 09/04/2022 4:17 PM EDT [facility] Consult Note Consult Reason: PEG placement HPI: Theresa Hollis is a 52 y.o. 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 She underwent tracheostomy, neck exploration, mandible excision, and fibula free flap reconstruction 08/21 with ENT and PRS. Her NGT was removed on 08/30 and initiated on pur??ed diet as per INFORMATION DEVELOPER recommendation. However she was having difficulty swallowing with some concerns for microaspiration. Indirect laryngoscopy performed bedside by ENT that noted left-sided vocal cord paresis. Patient reports having a prior G-tube during her radiotherapy in 2006. She expresses that she would want one placed during this admission asthis would help allow time to gradually improve her swallowing. Otherwise she has had no prior abdominal surgeries except for G-tube placed in 2006. Interval hx: - no acute events, pt awaiting PEG placement, states she has an IR G tube scheduled for tomorrow AMas backup plan Physical Exam: Temp: [35.9 ??C (96.6 ??F)-36.5 ??C (97.7 ??F)] Heart Rate: -- Resp: [16-18] BP: (122-150)/(69-85) SpO2: [97 %-100 %] Heart Rate from SpO2: [75 bpm-86 bpm] Gen: NAD, A0x3; thin HEENT: MARIE, mandibular sutures intact, flap pink and well perfused appearing, tracheostomy in place, capped. CVS: RRR Pulm: breathing comfortably on RA, trach capped GI: scaphoid, non-tender; nondistended MSK: WWP, no edema Vascular: 2+dp/pt bilaterally Neuro: moving all 4 extremities spontaneously, nonfocal Data independently reviewed: Recent Results (from the past 24 hour(s)) Magnesium Result Value Ref Range Magnesium 1.00 0.69 - 1.07 mmol/L Phosphorus Result Value Ref Range Phosphorus 3.8 2.5 - 4.5 mg/dL Basic Metabolic Panel (non-fasting) Result Value Ref Range Glucose Lvl 98 65 - 199 mg/dL BUN 19 (H) 8 - 18 mg/dL Creatinine 0.45 (L) 0.70 - 1.20 mg/dL Sodium 136 135 - 145 mmol/L Potassium 3.8 3.5 - 5.0 mmol/L Chloride 100 98 - 107 mmol/L CO2 27 22 - 31 mmol/L Anion Gap 9 5 - 15 mmol/L Calcium 8.8 8.5 - 10.5 mg/dL Estimated GFR 116 >=60 mL/min/1.73 m?? Hemogram Result Value Ref Range WBC 8.3 4.0 - 9.5 x10(3)/mcL RBC 2.80 (L) 4.00 - 5.21 x10(6)/mcL Hemoglobin 9.1 (L) 11.7 - 15.5 g/dL Hematocrit 26.8 (L) 35.7 - 45.8 % MCV 95.7 (H) 82.6 - 94.4 fL MCH 32.5 (H) 27.1 - 32.0 pg MCHC 34.0 31.7 - 35.0 g/dL Platelets 624 (H) 145 - 357 x10(3)/mcL RDWSD 40.8 37.0 - 46.0 fL RDWCV 11.9 11.5 - 14.1 % MPV 8.7 7.6 - 12.9 fL nRBC % Auto 0.0 % nRBC Abs Auto 0.000 0.000 - 0.000 x10(3)/mcL Differential, Automated Result Value Ref Range Neutrophils % 79.6 % Neutr Abs (ANC) 6.60 (H) 1.70 - 6.10 x10(3)/mcL Lymphocytes % 10.3 % Lymphocytes Abs 0.8 (L) 0.9 - 3.2 x10(3)/mcL Monocytes % 7.0 % Monocyte Abs 0.6 0.3 - 0.9 x10(3)/mcL Eosinophils % 1.9 % Eosinophils Abs 0.2 0.0 - 0.4 x10(3)/mcL Basophils % 0.5 % Basophils Abs 0.0 0.0 - 0.1 x10(3)/mcL Immature Gran % 0.70 % Josselyn Gran Abs 0.06 (H) 0.00 - 0.04 x10(3)/mcL Imaging: reviewed Impression: 52 y.o. female with a history of U1O8dZ0 SCCa of the left lateral tongue s/p hemiglossectomy, left neck dissection 1-5, skin graft, allograft (10/31/06) followed by adjuvant chemo XRT now presenting with ORN of the mandible. She underwent tracheostomy, neck exploration, mandible excision, and fibula free flap reconstruction 08/21 with ENT and PRS. She is having difficulty with swallowingstatus post NG tube removal as of 08/30, with ongoing concerns for microaspiration for which generalsurgery has been consulted for PEG placement. No acute events overnight. Plan for PEG placement today pending OR schedule. Consented and ready toproceed. Pt does have IR G tube scheduled for tomorrow in case schedule is unable to accommodate PEG placement today. Princess Moore MD 09/04/2022 General Surgery [phone] * Plan of Care - Joey Mckeon RN - 09/04/2022 5:18 AM EDT Problem: Bleeding (Surgery Nonspecified) Goal: Absence of Bleeding Outcome: Ongoing (Interventions Implemented as Appropriate) Problem: Infection (Surgery Nonspecified) Goal: Absence of Infection Signs and Symptoms Outcome: Ongoing (Interventions Implemented as Appropriate) Problem: Pain (Surgery Nonspecified) Goal: Acceptable Pain Control Outcome: Ongoing (Interventions Implemented as Appropriate) Problem: Pain Acute Goal: Acceptable Pain Control and Functional Ability Outcome: Ongoing (Interventions Implemented as Appropriate) Problem: Adult Inpatient Plan of Care Goal: Plan of Care Review Outcome: Ongoing (Interventions Implemented as Appropriate) Goal: Patient-Specific Goal (Individualized) Outcome: Ongoing (Interventions Implemented as Appropriate) Flowsheets (Taken 09/04/2022 6234) Anxieties, Fears or Concerns: none reported Individualized Care Needs: pt will maintain acceptable pain level Patient-Specific Goals (Include Timeframe): pt will remain free of injury during shift Goal: Absence of Hospital-Acquired Illness or Injury Outcome: Ongoing (Interventions Implemented as Appropriate) Problem: Communication Impairment (Artificial Airway) Goal: Effective Communication Outcome: Ongoing (Interventions Implemented as Appropriate) Problem: Device-Related Complication Risk (Artificial Airway) Goal: Optimal Device Function Outcome: Ongoing (Interventions Implemented as Appropriate) Problem: Skin and Tissue Injury (Artificial Airway) Goal: Absence of Device-Related Skin or Tissue Injury Outcome: Ongoing (Interventions Implemented as Appropriate) * Plan of Care - Annemarie Camarena RN - 09/03/2022 6:51 PM EDT Problem: Bleeding (Surgery Nonspecified) Goal: Absence of Bleeding Outcome: Ongoing (Interventions Implemented as Appropriate) Problem: Infection (Surgery Nonspecified) Goal: Absence of Infection Signs and Symptoms Outcome: Ongoing (Interventions Implemented as Appropriate) Problem: Pain (Surgery Nonspecified) Goal: Acceptable Pain Control Outcome: Ongoing (Interventions Implemented as Appropriate) Problem: Pain Acute Goal: Acceptable Pain Control and Functional Ability Outcome: Ongoing (Interventions Implemented as Appropriate) Problem: Adult Inpatient Plan of Care Goal: Plan of Care Review Outcome: Ongoing (Interventions Implemented as Appropriate) Goal: Patient-Specific Goal (Individualized) Outcome: Ongoing (Interventions Implemented as Appropriate) Goal: Absence of Hospital-Acquired Illness or Injury Outcome: Ongoing (Interventions Implemented as Appropriate) Goal: Optimal Comfort and Wellbeing Outcome: Ongoing (Interventions Implemented as Appropriate) Goal: Readiness for Transition of Care Outcome: Ongoing (Interventions Implemented as Appropriate) Problem: Infection Goal: Absence of Infection Signs and Symptoms Outcome: Ongoing (Interventions Implemented as Appropriate) Problem: Impaired Wound Healing Goal: Optimal Wound Healing Outcome: Ongoing (Interventions Implemented as Appropriate) Problem: Communication Impairment (Artificial Airway) Goal: Effective Communication Outcome: Ongoing (Interventions Implemented as Appropriate) Problem: Device-Related Complication Risk (Artificial Airway) Goal: Optimal Device Function Outcome: Ongoing (Interventions Implemented as Appropriate) Problem: Skin and Tissue Injury (Artificial Airway) Goal: Absence of Device-Related Skin or Tissue Injury Outcome: Ongoing (Interventions Implemented as Appropriate) * Consult Note - Zion Iqbal MD - 09/03/2022 10:34 AM EDT [facility] Consult Note Consultation Requested by: Roberth Lee MD Consult Reason: PEG placement HPI: Theresa Hollis is a 52 y.o. 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 She underwent tracheostomy, neck exploration, mandible excision, and fibula free flap reconstruction 08/21 with ENT and PRS. Her NGT was removed on 08/30 and initiated on pur??ed diet as per INFORMATION DEVELOPER recommendation. However as of this a.m., she endorsed having a hard time swallowing with some concerns for microaspiration. Indirect laryngoscopy performed bedside by ENT that noted left-sided vocal cord paresis. Patient reports having a prior G-tube during her radiotherapy in 2006. She expresses that she would want one placed during this admission as this would help allow time to gradually improve her swallowing. Otherwise she has had no prior abdominal surgeries except for G-tube placed in 2006. Interval hx: - NAEON Physical Exam: Temp: [36.3 ??C (97.3 ??F)-37.1 ??C (98.8 ??F)] Heart Rate: [73] Resp: [19-24] BP: (101-141)/(57-86) SpO2: [95 %-100 %] Heart Rate from SpO2: [78 bpm-94 bpm] Gen: NAD, A0x3; thin HEENT: MARIE, left FARRUKH drain to right neck, oral secretion, PMV to trach and able to vocalize but hoarse and gurgly. CVS: RRR Pulm: CTAB, breathing comfortably on RA von trach-PMV GI: scaphoid, non-tender; nondistended MSK: WWP, no edema Vascular: 2+dp/pt bilaterally Neuro: moving all 4 extremities spontaneously, nonfocal Data independently reviewed: Recent Results (from the past 24 hour(s)) Magnesium Result Value Ref Range Magnesium 1.05 0.69 - 1.07 mmol/L Phosphorus Result Value Ref Range Phosphorus 3.7 2.5 - 4.5 mg/dL Basic Metabolic Panel (non-fasting) Result Value Ref Range Glucose Lvl 85 65 - 199 mg/dL BUN 20 (H) 8 - 18 mg/dL Creatinine 0.45 (L) 0.70 - 1.20 mg/dL Sodium 137 135 - 145 mmol/L Potassium 4.2 3.5 - 5.0 mmol/L Chloride 98 98 - 107 mmol/L CO2 28 22 - 31 mmol/L Anion Gap 11 5 - 15 mmol/L Calcium 9.2 8.5 - 10.5 mg/dL Estimated GFR 116 >=60 mL/min/1.73 m?? Hemogram Result Value Ref Range WBC 8.2 4.0 - 9.5 x10(3)/mcL RBC 3.07 (L) 4.00 - 5.21 x10(6)/mcL Hemoglobin 9.8 (L) 11.7 - 15.5 g/dL Hematocrit 29.4 (L) 35.7 - 45.8 % MCV 95.8 (H) 82.6 - 94.4 fL MCH 31.9 27.1 - 32.0 pg MCHC 33.3 31.7 - 35.0 g/dL Platelets 657 (H) 145 - 357 x10(3)/mcL RDWSD 40.5 37.0 - 46.0 fL RDWCV 11.9 11.5 - 14.1 % MPV 8.5 7.6 - 12.9 fL nRBC % Auto 0.0 % nRBC Abs Auto 0.000 0.000 - 0.000 x10(3)/mcL Differential, Automated Result Value Ref Range Neutrophils % 79.8 % Neutr Abs (ANC) 6.58 (H) 1.70 - 6.10 x10(3)/mcL Lymphocytes % 9.1 % Lymphocytes Abs 0.8 (L) 0.9 - 3.2 x10(3)/mcL Monocytes % 8.3 % Monocyte Abs 0.7 0.3 - 0.9 x10(3)/mcL Eosinophils % 1.2 % Eosinophils Abs 0.1 0.0 - 0.4 x10(3)/mcL Basophils % 0.6 % Basophils Abs 0.0 0.0 - 0.1 x10(3)/mcL Immature Gran % 1.00 % Josselyn Gran Abs 0.08 (H) 0.00 - 0.04 x10(3)/mcL Imaging: reviewed Impression: 52 y.o. female with a history of E3N4nD7 SCCa of the left lateral tongue s/p hemiglossectomy, left neck dissection 1-5, skin graft, allograft (10/31/06) followed by adjuvant chemo XRT now presenting with ORN of the mandible. She underwent tracheostomy, neck exploration, mandible excision, and fibula free flap reconstruction 08/21 with ENT and PRS. She is having difficulty with swallowingstatus post NG tube removal as of 08/30, with ongoing concerns for microaspiration for which generalsurgery has been consulted for PEG placement. No acute events overnight. for PEG placement today. Consented and ready to proceed. Plan discussed with Dr. Martin. Zion Iqbal MD 09/03/2022 General Surgery [phone] * Consult Note - Anthony Brizuela - 09/03/2022 7:33 AM EDT Images from the original note were not included. Internal Medicine Initial Consult Note Admit date: Hospital day: Service: Primary Attending Consult Attending 08/21/2022 13 ENT MD Roberth Powell MD Reason for Consult: Hyponatremia and elevated TSH HPI: Per Dr. 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 She underwent tracheostomy, neck exploration, mandible excision and fibula free flap reconstruction 08/21. Medicine is being consulted for hyponatremia and elevated TSH. Post-operatively she had an NG tube and was getting tube feeds starting 08/22. On 08/29 she was evaluated by INFORMATION DEVELOPER, who recommended a trial of PO intake. NG tube was removed 08/30. However, she continued to struggle with swallowing, so TPN was started 08/30. General surgery was consulted for PEG placement, which is tentatively planned to be done in the next few days. Admission sodium was 136, with fluctuations since. Yesterday being the lowest at 127 and today up to 129. Of note, she also was getting free water boluses 100cc BID for the last several days (08/26 - 08/30). Regarding her hypothyroid, she has a known hx of hypothyroidism and takes Synthroid 100mcg. TSH waschecked 09/01 and showed elevated TSH to 18.4, with borderline but normal free T4 of 0.93. During this hospitalization, her home synthroid has been given between 4513-2381 (initially via NGT, now PO). Today, patient reports generally feeling well. She reports being on Synthroid 100mcg for some time as an outpatient, without recent dosing changes. She denies constipation, abdominal pain, skin changes, LE edema, mental status changes or confusion. Interval Hx: - Recommendations were made on 09/03 to stop free water boluses with enteral feeds as thought to be culprit behind hyponatremia. - The hyponatremia has since resolved and normalized today to 137 following stopping free water boluses - In regards to borderline asymptomatic hypothyroidism, recommendations were made to separate synthroid administration from tube feeds by an hour with plan to recheck TSH in 2 weeks (can be done as an outpatient - NGT was removed on 08/30 and she was started on a puree diet. Unfortunately she was having issues with swallowing laryngoscope showed left sided vocal cord paresis. He is now on TPN with PICC placed. - Ms Hollis today denies fevers/chills, headaches, malaise, confusion, chest pain, palpitations, shortness of breath, abdominal pain or nausea. She describes having no bowel movement since however she is not bloated. She relays to me that she has not had any synthroid since 08/31 which I confirmed in the chart. 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 Hyperlipidemia Hypothyroidism Meds: No current facility-administered medications on file prior to encounter. Current Outpatient Medications on File Prior to Encounter Medication Sig Dispense Refill amoxicillin-clavulanate (Augmentin) 500-125 mg Tablet Take 1 tablet by mouth 2 times daily. 60 tablet 5 fluocinolone and shower cap ([place]-Smoothe/FS Scalp Oil) 0.01 % Oil Apply topically to scalp under shower cap nightly for up to 2 weeks for flares then 1- 3 times weekly prn maintenance. 118 mL 3 ketoconazole (Nizoral) 2 % Cream Apply topically 2 times daily as needed. For rash on face and/or ears (Patient not taking: Reported on 04/29/2021) 30 g 3 acetaminophen (Tylenol) 160 mg/5 mL Suspension Take 15 mg/kg/dose by mouth as needed for Fever. ibuprofen (ADVIL;MOTRIN) 100 mg/5 mL Suspension Take by mouth every 4 hours as needed for Fever. Allergies: Allergies Allergen Reactions Tylenol [Acetaminophen] Anaphylaxis Allergenic Rhmejvj-Bvud-Bxtgu Itching Applesauce Peanut Itching Benzocaine Made pt tongue red and angry. Irritant reaction - allergy testing negative Birch Other (See Comments) Birch pollen: wheezing and throat constriction Past Surgical History Past Surgical History: Procedure Laterality Date GLOSSECTOMY Right partial LYMPHADENECTOMY SND 1-5 MO PREP FACE/ORAL PROST MANDIBULAR N/A 08/21/2022 IMPRESSION AND CUSTOM PREPARATION,MANDIBULAR RESECTION PROSTHESIS (WRVU 22.85) performed by Keyur Ng MD at [facility] MAIN OR PRO ADJ TISS XFER HEAD, FAC, HAND <10SQCM 08/21/2022 ADJ.TISSUE TRANSFER, REARRANGEMENT, 10SQ.CM OR LESS, NECK (WRVU 8.6) performed by Kelly Laguna MDat [facility] MAIN OR PRO BONE BIOPSY,TROCAR/NEEDLE SUPERF Left 05/06/2014 BIOPSY BONE, TROCAR OR NEEDLE, SUPERFICIAL, MANDIBLE performed by Alfred Vital MD at [facility] PRO BONE-SKIN GRAFT, MICROVASCULAR 08/21/2022 @FLAP, FREE OSTEOCUTANEOUS W MICROVASC, FIBULA (WRVU 45.43) performed by Kelly Laguna MD at [facility] OR [facility] CERVICAL LYMPHADECTOMY MODIFIED RADICAL NECK DISSECTION Right 08/21/2022 @CERVICAL LYMPHADENECTOMY (MODIFIED RADICAL NECK DISSECTION)-JANA , ROBOTIC (WRVU 23.95) performed by Roberth Lee MD at [facility] OR [facility] [place] DEBRIDEMENT BONE MUSCLE &/FASCIA 20 SQ CM/< Bilateral 11/17/2019 DEBRIDEMENT SKIN, SUBCU, MUSCLE, BONE, HEAD/NECK (WRVU 4.1) performed by Keyur Ng MD at [facility] OR [facility] EXCISION OF BONE, LOWER JAW Bilateral 08/21/2022 EXCISION OF BONE, MANDIBLE (WRVU 10.03) performed by Roberth Lee MD at [facility] OR [facility] INJECTION PLATELET PLASMA WITH IMAGE, HARVEST/PREP 11/17/2019 INJECTION(S), PLATELET RICH PLASMA, ANY SITE, INCLUDING IMAGE GUIDANCE, HARVESTING AND PREPARATION WHEN PERFORMED performed by Keyur Ng MD at [facility] OR [facility] RECONSTR JAW, FULL ENDO IMPLNT N/A 08/21/2022 RECONSTRUCT MANDIBLE OR MAXILLA, ENDOSTEAL IMPLANT, COMPLETE (WRVU 18.77) performed by Keyur Ng MD at [facility] OR [facility] RECONSTR MANDIBLE, BONE PLATE 08/21/2022 RECONSTRUCT MANDIBLE, EXTRAORAL, W/ TRANSOSTEAL BONE PLATE (WRVU 13.62) performed by Kelly Laguna MD at [facility] REMOVAL ERUPTED TOOTH WITH ELEVATION OF MUCOPERIOSTEAL FLAP N/A 05/06/2014 SURGICAL EXTRACTIONS REQUIRING ELEVATION OF MUCOPERIOSTEAL FLAP AND REMOVAL OF BONE OR SECTION OF TOOTH performed by Alfred Vital MD at [facility] OR [facility] REMOVAL ERUPTED TOOTH WITH ELEVATION OF MUCOPERIOSTEAL FLAP Bilateral 11/17/2019 SURGICAL EXTRACTIONS REQUIRING ELEVATION OF MUCOPERIOSTEAL FLAP AND REMOVAL OF BONE OR SECTION OF TOOTH (WRVU 1.09) performed by Keyur Ng MD at [facility] SPLIT GRFT TRUNK, ARM, LEG <100SQCM N/A 08/21/2022 SPLIT THICK SKIN GRAFT,100 SQ CM OR LESS, LEGS (WRVU 9.9) performed by Kelly Laguna MD at [facility] MA[facility] OR PRO TRACHEOSTOMY, PLANNED N/A 08/21/2022 TRACHEOSTOMY, PLANNED (WRVU 5.56) performed by Roberth Lee MD at [facility] OR SKIN GRAFT Family History: Family History Problem Relation Age of Onset Breast Cancer Maternal Grandmother Eczema Mother Amblyopia Paternal Uncle Strabismus Neg Hx Macular Degeneration Neg Hx Glaucoma Neg Hx Social History: Social History Tobacco Use Smoking status: Never Smokeless tobacco: Never Vaping Use Vaping Use: Never used Substance Use Topics Alcohol use: Not Currently Comment: seldom, 4 drinks per year Drug use: No Social History Social History Narrative Not on file Vitals: Last value Range last 24 hrs Temperature Temp: 36.7 ??C (98.1 ??F) Temp: [35.8 ??C (96.4 ??F)-37.1 ??C (98.8 ??F)] Heart Rate Heart Rate: 73 Heart Rate: [73-79] Blood Pressure BP: 128/57 BP: (101-141)/(57-86) Respiratory Rate Resp: 19 Resp: [16-24] SpO2 SpO2: 95 % SpO2: [95 %-100 %] I/O last 3 completed shifts: In: 3768 [I.V.:10] Out: 25 [Drains:25] Examination: General: Pleasant, alert, appropriate, in NAD. HEENT: Trach airway in place Cardiac: Normal S1 and S2, Regular rate and rhythm; No murmurs noted Respiratory: Nonlabored. Clear to auscultation bilaterally; No wheezes or crackles Abd: soft, non-tender, non-distended Ext: No edema, cyanosis, clubbing,bilaterally Neuro: II-XII grossly intact. Alert and orientated, moving all 4 extremities Laboratory: Recent Labs 09/03/22 0200 09/02/22 0028 08/31/22 1137 WBC 8.2 8.6 8.8 HGB 9.8* 9.4* 9.7* HCT 29.4* 27.7* 29.3* PLATELET 657* 591* 670* Recent Labs 09/03/22 0200 09/02/22 0028 09/01/22 0945 NA 137 130* 129* K 4.2 4.1 4.3 CL 98 96* 92* CO2 28 25 25 BUN 20* 17 19* CREATININE 0.45* 0.41* 0.42* No results for input(s): AST, ALT, ALKPHOS, BILITOT, BILIDIR in the last 168 hours. Recent Labs 09/03/22 0200 09/02/22 0028 09/01/22 0945 CALCIUM 9.2 8.7 9.5 MAGNESIUM 1.05 1.02 1.00 PHOS 3.7 3.2 2.8 No results for input(s): INR, PT, PTT in the last 168 hours. No results for input(s): CK, TROPONINT in the last 168 hours. No results for input(s): POCGLU in the last 168 hours. Microbiology: N/A Diagnostic Studies: Results for orders placed or performed during the hospital encounter of 08/21/22 XR Abdomen 1 view (Generic) (Exam End: 08/22/2022 10:20 AM) Impression Feeding tube is present with the tip in the right lower chest. Thank you for letting us participate in the care of this patient. If you are a health care provider and have any questions regarding this report, please contact the number below. For patients who have questions please contact the health director critical care that requested your imaging first. Electronically signed by: Parish Gomes MD, [facility] ([phone]), at 08/22/2022 11:53 AM XR Abdomen 1 view (Generic) (Exam End: 08/22/2022 3:46 PM) Impression 1. Enteric tube tip and side-port project over the expected location of the right mainstem bronchus. I Nicki Castanon MD discussed the results (Impression #1) with JEANINE Root on 08/22/2022 4:13 PM and verified that the results were understood. Meredith reported that they had already pulled the enteric tube. We discussed that if there is concern for pneumothorax a dedicated chest radiograph is recommended. Thank you for letting us participate in the care of this patient. If you are a health care provider and have any questions regarding this report, please contact the number below. For patients who have questions please contact the health director critical care that requested your imaging first. Electronically signed by: Nicki Castanon MD, [facility] ([phone]), at 08/22/2022 4:14 PM XR Chest One View (Exam End: 08/22/2022 5:13 PM) Impression 1. Faint left basilar opacity which can be seen in atelectasis or pneumonitis. 2. No pneumothorax. 3. Distended loops of colon in the LEFT upper quadrant Preliminary report signed by: Hermelindo Garcia at 08/22/2022 5:35 PM I have personally reviewed the image(s) and the resident's interpretation and agree with the findings, LILY CELESTE MD at 08/22/2022 5:39 PM Thank you for letting us participate in the care of this patient. If you are a health care provider and have any questions regarding this report, please contact the number below. For patients who have questions please contact the health director critical care that requested your imaging first. Electronically signed by: LILY CELESTE MD, [facility] ([phone]), at 08/22/2022 5:39 PM XR Abdomen 1 view (Generic) (Exam End: 08/22/2022 6:42 PM) Impression Nasogastric tube placement with side hole projecting over the GE junction. Tip overlies the mid stomach. Thank you for letting us participate in the care of this patient. If you are a health care provider and have any questions regarding this report, please contact the number below. For patients who have questions please contact the health director critical care that requested your imaging first. Electronically signed by: LILY CELESTE MD, [facility] ([phone]), at 08/22/2022 6:52 PM XR Chest One View (Exam End: 08/30/2022 8:39 AM) Impression No acute cardiopulmonary disease. Thank you for letting us participate in the care of this patient. If you are a health care provider and have any questions regarding this report, please contact the number below. For patients who have questions please contact the health director critical care that requested your imaging first. Electronically signed by: Dar Villanueva MD, [facility] ([phone]), at 08/30/2022 8:43 AM XR PICC Placement Over 5 Years with Imaging Guidance (IV Team) (Exam End: 09/02/2022 4:21 PM) Impression FINDINGS/IMPRESSION: Intraprocedural frontal radiograph of the mediastinum demonstrates a right-sided PICC line, with the catheter tip projected at the lower SVC, best visualized on image labeled #2. Preliminary report signed by: Nicki Beaver at 09/02/2022 4:41 PM I have personally reviewed the image(s) and the resident's interpretation and agree with the findings, Silvia Lee MD at 09/02/2022 5:04 PM Thank you for letting us participate in the care of this patient. If you are a health care provider and have any questions regarding this report, please contact the number below. For patients who have questions please contact the health director critical care that requested your imaging first. 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 She underwent tracheostomy, neck exploration, mandible excision and fibula free flap reconstruction 08/21. Medicine is being consulted for hyponatremia and elevated TSH. Hyponatremia now resolved after stopping free water with tube feeds. As discussed by Dr. Marx the previous day borderline asymptomatic hypothyroidism could be a result of poor absorption with thyroid medication being given with other meds and with concurrent tube feeds. Per discussion with the patient today she has not been receiving any levothyroxine since she was made NPO on 09/01 and we discussed she can be transitioned to IV for now with plan to put her back on her home oral dose once theg-tube is placed. It is safe to recheck the TSH in about 2 weeks and if still appearing hypothyroidwith elevated TSH and low free T4 can increase levothyroxine by 12.5 mcg-25 mcg with a recheck of TSH 6 weeks following this. Recommendations: - Recheck TSH/Free T4 in 2 weeks (can be inpatient vs outpatient) - Start 70 mcg of IV levothyroxine daily. Once g-tube is placed can put back on home 100 mcg. - Ensure oral synthroid is given at least 1 hour from any other medication, supplement or enteral nutrition - Can trial bisacodyl suppository if not having bowel movement by tomorrow or if complaining of more bloating or abdominal discomfort. - daily BMP Case was discussed with medicine consult attending, Dr. Mckeon. The hospital medicine service will signoff for now. Please reach back out to pager #[phone] if another specific questions arises. Anthony Brizuela MD Internal Medicine, PGY3 [facility] Pager # [phone] Associated attestation - Shruti Mckeon MD - 09/03/2022 5:13 PM EDT Attending Staff Consult Documentation We have been asked to see this patient in consultation by Dr. Lee from ENT Please see Dr. Brizuela's note for details of the patient history of presentation and data. I have discussed, reviewed and agree with the documented history with ROS, social and family history, medication list, physical findings, labs/studies, Assessment and Plan of care. I have examined the patientmyself and reviewed all labs and studies personally. Additions to the history, physical, assessment and plan include the following: Issues Hyponatremia (resolved) Hypothyroidism Recommendations Hyponatremia: Resolved and stable on current TPN. Once enteric access obtained, would recommend monitoring lytes and depending on what TF is used, may need to adjust amount of free water boluses withit to ensure stable hydration status. Nutrition likely can help with that, but should any further issues arise, please feel free to re-consult medicine if we may be of assistance in the future. Hypothyroidism: Pt is followed by Endocrinology (Dr. Gimenez) at baseline and her last TSH was 0.87 in 05/2022 on home regimen of levothyroxine 100 mcg daily. She is very sensitive to small levothyroxine dose adjustments and had talked with her complaint analyst about taking levothyroxine 50 mcg a couple days a month and levothyroxine 100 mcg at all other times to try to get her TSH in the 1-2 range. These are very small changes and at present time, I would focus on making sure she is back on her prior stable dose equivalent of levothyroxine 100 mcg oral daily. I suspect her recently elevated TSH to 18 is related to inconsistently receiving her levothyroxine and suboptimal absorption due to t iming of receiving it with tube feeds. Agree with Dr. Brizuela's recommendation that while she is unable to receive enteric levothyroxine, please instead substitute with IV levothyroxine 70 mcg daily. Once enteric access obtained, would stop IV levothyroxine and resume levothyroxine 100 mcg qAM per G-tube, given separate from all other medications or tube feeds by at least 1 hour first thing in the morning. Agree with repeat TSH cascade in a couple weeks to ensure improving in expected direction, and then repeat TSH cascade 4-6 weeksafter that to ensure normalization. * Plan of Care - Jada Chávez RN - 09/03/2022 5:48 AM EDT OUTCOME EVALUATION NOTE: OUTCOME SUMMARY: Neurologically intact, VSS on RA. Right single lumen PICC, TPN infusing. Trach #4 Shiley Capped overnight, tolerating well, strong cough, clearing secretions. Oral medications not given, difficulty swallowing, unable to tolerate oral intake. Ambulating to BR, voiding without difficulty. Trach to gokit at bedside. Q4h flap checks, audible at suture site. Site care provided, Aquaphor applied. PLAN MOVING FORWARD: Q4hr vitals Q4hr flap checks with doppler 1 FARRUKH drain PICC - TPN infusing Possible PEG placement on Sunday INDIVIDUALIZED FALL PREVENTION INTERVENTIONS: purposeful hourly rounding, call ramirez within reach, FWW/cane within reach Patient-specific fall risk factors per assessment: surgical patient, generalized weakness, hospitalenvironment Assistance: SBA, FWW or cane Supervision: Independent with minimal assist Surveillance: Bed locked in low position, call ramirez within reach, clutter free environment, bed/chair alarm on, suction at bedside, light adjusted, bed side table within reach CPG GOAL OUTCOME EVALUATION: Continue care plan as documented. * Plan of Care - Catherine Morataya RN - 09/02/2022 6:17 PM EDT Problem: Bleeding (Surgery Nonspecified) Goal: Absence of Bleeding Outcome: Ongoing (Interventions Implemented as Appropriate) Problem: Infection (Surgery Nonspecified) Goal: Absence of Infection Signs and Symptoms Outcome: Ongoing (Interventions Implemented as Appropriate) Problem: Pain (Surgery Nonspecified) Goal: Acceptable Pain Control Outcome: Ongoing (Interventions Implemented as Appropriate) Problem: Pain Acute Goal: Acceptable Pain Control and Functional Ability Outcome: Ongoing (Interventions Implemented as Appropriate) Problem: Adult Inpatient Plan of Care Goal: Plan of Care Review Outcome: Ongoing (Interventions Implemented as Appropriate) Goal: Patient-Specific Goal (Individualized) Outcome: Ongoing (Interventions Implemented as Appropriate) Goal: Absence of Hospital-Acquired Illness or Injury Outcome: Ongoing (Interventions Implemented as Appropriate) Goal: Optimal Comfort and Wellbeing Outcome: Ongoing (Interventions Implemented as Appropriate) Goal: Readiness for Transition of Care Outcome: Ongoing (Interventions Implemented as Appropriate) Problem: Infection Goal: Absence of Infection Signs and Symptoms Outcome: Ongoing (Interventions Implemented as Appropriate) Problem: Impaired Wound Healing Goal: Optimal Wound Healing Outcome: Ongoing (Interventions Implemented as Appropriate) Problem: Communication Impairment (Artificial Airway) Goal: Effective Communication Outcome: Ongoing (Interventions Implemented as Appropriate) Problem: Device-Related Complication Risk (Artificial Airway) Goal: Optimal Device Function Outcome: Ongoing (Interventions Implemented as Appropriate) Problem: Skin and Tissue Injury (Artificial Airway) Goal: Absence of Device-Related Skin or Tissue Injury Outcome: Ongoing (Interventions Implemented as Appropriate) * Plan of Care - Anthony Rashid RN - 09/02/2022 4:30 PM EDT Peripherally Inserted Central Catheter (PICC) Teaching Sheet Peripherally inserted central catheters ([id number]-nv-cruk) (PICC) are used when you need IV (intravenous) medicines and fluids. A catheter is a small flexible plastic tube. The catheter is put in througha vein under your skin. A vein is a tube inside your body that carries blood from the body to the heart. The catheter is usually put into a vein on the inside of your upper arm. Then it is threaded up this vein and ends in the blood vessel near your heart. The PICC catheter may be used for taking blood for laboratory tests. You may also get IV fluids andmedicines quickly and easily. Having the catheter may keep your arm from being stuck many times with a needle. The catheter will have 1-3 small tails (tubes) coming from your arm where the catheter was put in. Why do I need a PICC line or midline catheter? PICC lines are used for termite control technician treatments. PICC lines may be used for up to a year. They are often put in to give you IV medicines at home. You may need a PICC catheter because caregivers cannot use smaller veins in your body. Smaller veins may be damaged, or they may have poor blood flow. Catheters are also used in case of emergency when you would need medicines or fluids very quickly. The following are medicines and treatments you may get when you have a PICC line. ?? Antibiotics. These are medicines to prevent infection. ?? Frequent blood sample collection. ?? IV medicines that would make your smaller veins sore or damaged. ?? Receiving IV fluids for a long period of time. ?? Pain medicine. ?? Total Parenteral Nutrition: This is also called TPN. TPN is a special liquid food that goes directly into your veins. ?? Blood ?? Chemotherapy (Medicine for cancer) What are the benefits of having a PICC line put in? Having a PICC line may keep your arm from being stuck many times with a needle to draw blood or start an IV (intravenous catheter) . Through a PICC catheter, you may have blood taken for tests. You may also get IV fluids and medicines quickly and easily. Small veins can be damaged or irritated by certain drugs or nutritional solutions. A PICC line helps to decrease vein irritation from antibiotics, IV pain drugs, or IV cancer drugs. A PICC line can be left in place when you go home. If you go home with a PICC line in place, home care can be set up via the nurse Compressor Assembler to help you. What are possible complications of having a PICC line put in? Some possible complications are: bruising, swelling, or infection in the arm with the PICC line mal-positioned catheter (catheter tip in wrong place) occlusion (blocked catheter) mechanical phlebitis (vein irritation) and thrombosis (clot) Your doctor is the person you should talk to if you have questions about what would happen if you do not choose to have a PICC line put in. Your doctor can talk to you about other choices you may have. What should I expect when it is put in? A written consent that gives your ok to have it put in needs to be signed after you understand thatyou are going to have a PICC put in, and all your questions about the procedure have been answered to your satisfaction. This is a safety feature that the hospital practices before doing procedures. An experienced nurse who has been through special training and education will be putting this catheter in. The procedure is done in a specially equipped room in Interventional Radiology on the third floor. The PICC nurse will first talk to you about any questions that you may have. The PICC nurse will explain to you what is going to be done before starting. Once you arrive in the procedure room in Interventional Radiology, the PICC nurse will then set up for the procedure. She will unwrap the sterile kit and open the needed supplies. A gown and mask andgloves will be worn while putting it in. An ultrasound machine will be used to help guide the catheter in the right place. This machine uses a handle with sound waves to find the vein. The area on your arm where the catheter will be put in is then numbed with a medicine put under your skin with a tiny needle. The nurse will then put in the catheter using fluoroscopy (a type of x-ray) as a guide. Once the catheter is in your vein, it will be threaded up your arm to the area beforeyour heart. While it is being threaded, you may be asked to turn your head. When the catheter is in, the nurse will place a small dressing on the site along with a little gillis which will help keep the catheter in place. After the procedure is done, a radiologist (doctor in x-ray department) will look at your x-ray to make sure that the end of the catheter is in proper position to give your fluids and/or medications. What should I expect in the care of my PICC? A dressing that is specially made to prevent infections will be put on. After this, the dressing will only be changed once a week unless it needs it sooner. If you go home with the catheter in, you may take a shower as long as you keep the site dry. You can do this by wearing a specially fitted PICC protector that will be provided to you before dischargefrom the hospital. The dressing at the site must be kept clean and dry. It is important that you watch for signs of infection at the site. Your healthcare provider should be notified if these occur: Redness Swelling Pus Pain at the site Other reasons to notify your healthcare provider are: Catheter becomes partially or totally removed Unable to infuse medication/fluid Unable to draw back blood from the catheter. This may be an early sign that a clot is forming on the end of the catheter. If this occurs, a medicine called Cathflo may be used to dissolve this clot. Ask the PICC nurse or your doctor, any questions you may have so you feel secure in consenting to having a PICC line. References: Vascular Access Device Selection, Insertion, and Management, [employer] 12/21. A Review of the Efficacy, Safety, Use, and Administration of Cathflo, [employer] 2005 * Consult Note - Loly Blackwood RN - 09/02/2022 2:14 PM EDT Images from the original note were not included. Infiltration/Extravasation Scale Theresa Wyattesteban [id number] N520/N520-A Infiltration appearance: Infiltration harm % for this extremity 30% Based on measurement calculation (greatest measurement Xdivided by length of extremity multiplied by 100= %) Considerations and Ramos: Consider the following: IIf the percentage of limb affected is 26-49% then select 3 No symptoms Skin blanched Edema < 1 inch (2.5 cm) in any direction Cool to touch With or without pain Skin blanched Edema 1 to 6 inches (2.5 to 15 cm) in any direction Cool to touch With or without pain Skin blanched, translucent Gross edema > 6 inches (15 cm) in any direction Cool to touch Mild to moderate pain Possible numbness Skin blanched, translucent Skin swollen Gross edema > 6 inches in any direction Moderate to severe pain Infiltration appearance score: 4 Medication Name infiltrated is PPN which is a (n) vesicant Location of infiltration:left arm: anterior Measurement in cm of length and width of affected area---Affected extremity 13cm x 6cm Measurement of Circumference in cm of Infiltrated area of affected extremity 21cm Measurement of Circumference in cm of Unaffected extremity 19cm (at same location as affected extremity) Pulses present on affected extremity yes Medicated treatment given per policy/ order: no treatment indicated, however ice was applied for comfort. Phlebitis noted on skin and so heat was then applied. Recommendation for PICC placement discussed with both RN and MD. Plan for continued monitoring of infiltration/extravasation Name of MD contacted Rohit Banks MD. 2:14 PM Name of RN contacted FUENTES Alexander 2:14 PM Name of Pharmacist if consulted 2:14 PM Plastics Provider contacted: no 2:14 PM Name of Plastics MD (if consulted) PHOTO TO BE ADDED HERE (Mandatory photo for infiltrations/ extravasations scoring a stage 2 or greater, but recommended for stage 1. Include measuring tape and identifier in the photo) GUEST RELATIONS COORDINATOR CARING FOR THIS PATIENT WILL CONTINUE TO MONITOR AND WILL ASSUME CARE, VASCULAR ACCESS WILL NOT FOLLOW THIS EVENT AT THE SIGNING OF THIS NOTE. * Consult Note - Zion Iqbal MD - 09/02/2022 11:37 AM EDT [facility] Consult Note Consultation Requested by: Roberth Lee MD Consult Reason: PEG placement HPI: Theresa Hollis is a 52 y.o. female with a history of [id number] SCCa of the left lateral tongues/p hemiglossectomy, left neck dissection 1-5, skin graft, allograft (10/31/06) followed by adjuvantchemo XRT now presenting with ORN of the mandible. She underwent tracheostomy, neck exploration, mandible excision, and fibula free flap reconstruction 08/21 with ENT and PRS. Her NGT was removed on 08/30 and initiated on pur??ed diet as per INFORMATION DEVELOPER recommendation. However as of this a.m., she endorsed having a hard time swallowing with some concerns for microaspiration. Indirect laryngoscopy performed bedside by ENT that noted left-sided vocal cord paresis. Patient reports having a prior G-tube during her radiotherapy in 2006. She expresses that she would want one placed during this admission as this would help allow time to gradually improve her swallowing. Otherwise she has had no prior abdominal surgeries except for G-tube placed in 2006. Interval hx: - NAEON Physical Exam: Temp: [35.8 ??C (96.4 ??F)-37 ??C (98.6 ??F)] Heart Rate: [79] Resp: [16-18] BP: (106-123)/(59-79) SpO2: [96 %-99 %] Heart Rate from SpO2: [81 bpm-95 bpm] Gen: NAD, A0x3; thin HEENT: MARIE, left FARRUKH drain to right neck, oral secretion, PMV to trach and able to vocalize but hoarse and gurgly. CVS: RRR Pulm: CTAB, breathing comfortably on RA von trach-PMV GI: scaphoid, non-tender; nondistended MSK: WWP, no edema Vascular: 2+dp/pt bilaterally Neuro: moving all 4 extremities spontaneously, nonfocal Data independently reviewed: Recent Results (from the past 24 hour(s)) Magnesium Result Value Ref Range Magnesium 1.02 0.69 - 1.07 mmol/L Phosphorus Result Value Ref Range Phosphorus 3.2 2.5 - 4.5 mg/dL Basic Metabolic Panel (non-fasting) Result Value Ref Range Glucose Lvl 112 65 - 199 mg/dL BUN 17 8 - 18 mg/dL Creatinine 0.41 (L) 0.70 - 1.20 mg/dL Sodium 130 (L) 135 - 145 mmol/L Potassium 4.1 3.5 - 5.0 mmol/L Chloride 96 (L) 98 - 107 mmol/L CO2 25 22 - 31 mmol/L Anion Gap 9 5 - 15 mmol/L Calcium 8.7 8.5 - 10.5 mg/dL Estimated GFR 119 >=60 mL/min/1.73 m?? Hemogram Result Value Ref Range WBC 8.6 4.0 - 9.5 x10(3)/mcL RBC 2.89 (L) 4.00 - 5.21 x10(6)/mcL Hemoglobin 9.4 (L) 11.7 - 15.5 g/dL Hematocrit 27.7 (L) 35.7 - 45.8 % MCV 95.8 (H) 82.6 - 94.4 fL MCH 32.5 (H) 27.1 - 32.0 pg MCHC 33.9 31.7 - 35.0 g/dL Platelets 591 (H) 145 - 357 x10(3)/mcL RDWSD 40.4 37.0 - 46.0 fL RDWCV 11.7 11.5 - 14.1 % MPV 8.5 7.6 - 12.9 fL nRBC % Auto 0.0 % nRBC Abs Auto 0.000 0.000 - 0.000 x10(3)/mcL Differential, Automated Result Value Ref Range Neutrophils % 83.7 % Neutr Abs (ANC) 7.16 (H) 1.70 - 6.10 x10(3)/mcL Lymphocytes % 7.0 % Lymphocytes Abs 0.6 (L) 0.9 - 3.2 x10(3)/mcL Monocytes % 6.7 % Monocyte Abs 0.6 0.3 - 0.9 x10(3)/mcL Eosinophils % 1.3 % Eosinophils Abs 0.1 0.0 - 0.4 x10(3)/mcL Basophils % 0.5 % Basophils Abs 0.0 0.0 - 0.1 x10(3)/mcL Immature Gran % 0.80 % Josselyn Gran Abs 0.07 (H) 0.00 - 0.04 x10(3)/mcL Imaging: reviewed Impression: 52 y.o. 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 She underwent tracheostomy, neck exploration, mandible excision, and fibula free flap reconstruction 08/21 with ENT and PRS. She is having difficulty with swallowingstatus post NG tube removal as of 08/30, with ongoing concerns for microaspiration for which generalsurgery has been consulted for PEG placement. No acute events overnight. Keep n.p.o. past midnight for possible PEG placement on 09/03. AnticipateENT availability Intra-Op for DL for access. Plan discussed with Dr. Martin. Zion Iqbal MD 09/02/2022 General Surgery p.3000 * Plan of Care - Jada Chávez RN - 09/02/2022 3:31 AM EDT OUTCOME EVALUATION NOTE: OUTCOME SUMMARY: Neurologically intact, VSS on RA. TPN infusing. Trach #4 Shiley Capped overnight, tolerating well, strong cough, clearing secretions. Oral medications not given, difficulty swallowing, unable to tolerate oral intake. NPO at midnight for possible PEG placement. Ambulating to BR, voiding without diffi culty. Trach to go kit at bedside. Q4h flap checks, audible at suture site. Site care provided, Aquaphor applied. Right lower leg dressing changed by provider @ 0615 PLAN MOVING FORWARD: Q4hr vitals Q4hr flap checks TPN infusing Boot when OOB Aspiration precautions NPO at midnight - Possible PEG placement INDIVIDUALIZED FALL PREVENTION INTERVENTIONS: purposeful hourly rounding, room need nursing station, call ramirez within reach Patient-specific fall risk factors per assessment: generalized weakness LE, RLE surgical sites, hospital environment, wires lines and devices. Assistance: SBA, FWW Supervision: Independent Surveillance: Bed locked in low position, call ramirez within reach, clutter free environment, bed/chair alarm on, suction within reach, trach to go kit at bedside CPG GOAL OUTCOME EVALUATION: Continue care plan as documented. * Plan of Care - Catherine Morataya RN - 09/01/2022 3:54 PM EDT OUTCOME EVALUATION NOTE: OUTCOME SUMMARY: Pt A&Ox4, VSS, trach capped, RA. Strong, spontaneous cough, oral suctioning independently per pt. Flap CMS q4. Ambulated hallways. Continue TPN. Emergency airway equipment at bedside. Trying to plan for peg tomorrow. Pureed diet this evening. NPO at midnight. PLAN MOVING FORWARD: VS q4hrs Flap check q4hrs Pain management D/c planning INDIVIDUALIZED FALL PREVENTION INTERVENTIONS: Patient-specific fall risk factors per assessment: lines and wires Assistance: SBA, FWW Supervision: Eyes on, Arms reach, Hands on Surveillance: Bed locked in low position, call ramirez within reach, purposeful hourly rounding, clutter free environment, bed/chair alarm on Patient-specific fall prevention interventions for sensory deficits provided: N/A CPG GOAL OUTCOME EVALUATION: Problem: Bleeding (Surgery Nonspecified) Goal: Absence of Bleeding Outcome: Ongoing (Interventions Implemented as Appropriate) Problem: Infection (Surgery Nonspecified) Goal: Absence of Infection Signs and Symptoms Outcome: Ongoing (Interventions Implemented as Appropriate) Problem: Pain (Surgery Nonspecified) Goal: Acceptable Pain Control Outcome: Ongoing (Interventions Implemented as Appropriate) Problem: Pain Acute Goal: Acceptable Pain Control and Functional Ability Outcome: Ongoing (Interventions Implemented as Appropriate) Problem: Adult Inpatient Plan of Care Goal: Plan of Care Review Outcome: Ongoing (Interventions Implemented as Appropriate) Goal: Patient-Specific Goal (Individualized) Outcome: Ongoing (Interventions Implemented as Appropriate) Goal: Absence of Hospital-Acquired Illness or Injury Outcome: Ongoing (Interventions Implemented as Appropriate) Goal: Optimal Comfort and Wellbeing Outcome: Ongoing (Interventions Implemented as Appropriate) Goal: Readiness for Transition of Care Outcome: Ongoing (Interventions Implemented as Appropriate) Problem: Infection Goal: Absence of Infection Signs and Symptoms Outcome: Ongoing (Interventions Implemented as Appropriate) Problem: Impaired Wound Healing Goal: Optimal Wound Healing Outcome: Ongoing (Interventions Implemented as Appropriate) * Consult Note - Lenora Santa MD - 09/01/2022 10:25 AM EDT Images from the original note were not included. 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 She underwent tracheostomy, neck exploration, mandible excision and fibula free flap reconstruction 08/21. Medicine is being consulted for hyponatremia and elevated TSH. Post-operatively she had an NG tube and was getting tube feeds starting 08/22. On 08/29 she was evaluated by INFORMATION DEVELOPER, who recommended a trial of PO intake. NG tube was removed 08/30. However, she continued to struggle with swallowing, so TPN was started 08/30. General surgery was consulted for PEG placement, which is tentatively planned to be done in the next few days. Admission sodium was 136, with fluctuations since. Yesterday being the lowest at 127 and today up to 129. Of note, she also was getting free water boluses 100cc BID for the last several days (08/26 - 08/30). Regarding her hypothyroid, she has a known hx of hypothyroidism and takes Synthroid 100mcg. TSH waschecked 09/01 and showed elevated TSH to 18.4, with borderline but normal free T4 of 0.93. During this hospitalization, her home synthroid has been given between 6395-1400 (initially via NGT, now PO). Today, patient reports generally feeling well. She reports being on Synthroid 100mcg for some time as an outpatient, without recent dosing changes. She denies constipation, abdominal pain, skin changes, LE edema, mental status changes or confusion. 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 Hyperlipidemia Hypothyroidism Meds: No current facility-administered medications on file prior to encounter. Current Outpatient Medications on File Prior to Encounter Medication Sig Dispense Refill amoxicillin-clavulanate (Augmentin) 500-125 mg Tablet Take 1 tablet by mouth 2 times daily. 60 tablet 5 fluocinolone and shower cap ([place]-Smoothe/FS Scalp Oil) 0.01 % Oil Apply topically to scalp under shower cap nightly for up to 2 weeks for flares then 1- 3 times weekly prn maintenance. 118 mL 3 ketoconazole (Nizoral) 2 % Cream Apply topically 2 times daily as needed. For rash on face and/or ears (Patient not taking: Reported on 04/29/2021) 30 g 3 acetaminophen (Tylenol) 160 mg/5 mL Suspension Take 15 mg/kg/dose by mouth as needed for Fever. ibuprofen (ADVIL;MOTRIN) 100 mg/5 mL Suspension Take by mouth every 4 hours as needed for Fever. Allergies: Allergies Allergen Reactions Tylenol [Acetaminophen] Anaphylaxis Allergenic Fhybort-Bqbm-Qsauj Itching Applesauce Peanut Itching Benzocaine Made pt tongue red and angry. Irritant reaction - allergy testing negative Birch Other (See Comments) Birch pollen: wheezing and throat constriction Past Surgical History Past Surgical History: Procedure Laterality Date GLOSSECTOMY Right partial LYMPHADENECTOMY SND 1-5 MO PREP FACE/ORAL PROST MANDIBULAR N/A 08/21/2022 IMPRESSION AND CUSTOM PREPARATION,MANDIBULAR RESECTION PROSTHESIS (WRVU 22.85) performed by Keyur Ng MD at [facility] MAIN OR PRO ADJ TISS XFER HEAD, FAC, HAND <10SQCM 08/21/2022 ADJ.TISSUE TRANSFER, REARRANGEMENT, 10SQ.CM OR LESS, NECK (WRVU 8.6) performed by Kelly Laguna MDat [facility] MAIN OR PRO BONE BIOPSY,TROCAR/NEEDLE SUPERF Left 05/06/2014 BIOPSY BONE, TROCAR OR NEEDLE, SUPERFICIAL, MANDIBLE performed by Alfred Vital MD at [facility] [place] PRO BONE-SKIN GRAFT, MICROVASCULAR 08/21/2022 @FLAP, FREE OSTEOCUTANEOUS W MICROVASC, FIBULA (WRVU 45.43) performed by Kelly Laguan MD at [facility] MAIN OR PRO CERVICAL LYMPHADECTOMY MODIFIED RADICAL NECK DISSECTION Right 08/21/2022 @CERVICAL LYMPHADENECTOMY (MODIFIED RADICAL NECK DISSECTION)-JANA , ROBOTIC (WRVU 23.95) performed by Roberth Lee MD at [facility] MAIN OR PRO DEBRIDEMENT BONE MUSCLE &/FASCIA 20 SQ CM/< Bilateral 11/17/2019 DEBRIDEMENT SKIN, SUBCU, MUSCLE, BONE, HEAD/NECK (WRVU 4.1) performed by Keyur Ng MD at [facility] OR PRO EXCISION OF BONE, LOWER JAW Bilateral 08/21/2022 EXCISION OF BONE, MANDIBLE (WRVU 10.03) performed by Roberth Lee MD at [facility] OR PRO INJECTION PLATELET PLASMA WITH IMAGE, HARVEST/PREP 11/17/2019 INJECTION(S), PLATELET RICH PLASMA, ANY SITE, INCLUDING IMAGE GUIDANCE, HARVESTING AND PREPARATION WHEN PERFORMED performed by Keyur Ng MD at [facility] MAIN OR PRO RECONSTR JAW, FULL ENDO IMPLNT N/A 08/21/2022 RECONSTRUCT MANDIBLE OR MAXILLA, ENDOSTEAL IMPLANT, COMPLETE (WRVU 18.77) performed by Keyur Ng MD at [facility] OR PRO RECONSTR MANDIBLE, BONE PLATE 08/21/2022 RECONSTRUCT MANDIBLE, EXTRAORAL, W/ TRANSOSTEAL BONE PLATE (WRVU 13.62) performed by Kelly Laguna MD at [facility] MAIN OR PRO REMOVAL ERUPTED TOOTH WITH ELEVATION OF MUCOPERIOSTEAL FLAP N/A 05/06/2014 SURGICAL EXTRACTIONS REQUIRING ELEVATION OF MUCOPERIOSTEAL FLAP AND REMOVAL OF BONE OR SECTION OF TOOTH performed by Alfred Vital MD at [facility] OR [facility] REMOVAL ERUPTED TOOTH WITH ELEVATION OF MUCOPERIOSTEAL FLAP Bilateral 11/17/2019 SURGICAL EXTRACTIONS REQUIRING ELEVATION OF MUCOPERIOSTEAL FLAP AND REMOVAL OF BONE OR SECTION OF TOOTH (WRVU 1.09) performed by Keyur Ng MD at [facility] OR PRO SPLIT GRFT TRUNK, ARM, LEG <100SQCM N/A 08/21/2022 SPLIT THICK SKIN GRAFT,100 SQ CM OR LESS, LEGS (WRVU 9.9) performed by Kelly Laguna MD at [facility] OR PRO TRACHEOSTOMY, PLANNED N/A 08/21/2022 TRACHEOSTOMY, PLANNED (WRVU 5.56) performed by Roberth Lee MD at [facility] OR SKIN GRAFT Family History: Family History Problem Relation Age of Onset Breast Cancer Maternal Grandmother Eczema Mother Amblyopia Paternal Uncle Strabismus Neg Hx Macular Degeneration Neg Hx Glaucoma Neg Hx Social History: Social History Tobacco Use Smoking status: Never Smokeless tobacco: Never Vaping Use Vaping Use: Never used Substance Use Topics Alcohol use: Not Currently Comment: seldom, 4 drinks per year Drug use: No Social History Social History Narrative Not on file Vitals: Last value Range last 24 hrs Temperature Temp: 36.7 ??C (98.1 ??F) Temp: [36.2 ??C (97.2 ??F)-36.8 ??C (98.2 ??F)] Heart Rate Heart Rate: 88 Heart Rate: -- Blood Pressure BP: 113/71 BP: (104-116)/(68-74) Respiratory Rate Resp: 17 Resp: [13-17] SpO2 SpO2: 99 % SpO2: [96 %-99 %] I/O last 3 completed shifts: In: 542 [I.V.:10] Out: 10 [Drains:10] Examination: General: Pleasant, alert, appropriate, in NAD. HEENT: Sutures along mandible intact. No drainage or erythema surrounding surgical site. Cardiac: Normal S1 and S2, Regular rate and rhythm; No murmurs noted Respiratory: Nonlabored. Clear to auscultation bilaterally; No wheezes or crackles Abd: soft, non-tender, non-distended Ext: No edema, cyanosis, clubbing,bilaterally Neuro: II-XII grossly intact. Alert and orientated, moving all 4 extremities Laboratory: Recent Labs 08/31/22 1137 08/26/22 0539 WBC 8.8 6.0 HGB 9.7* 8.4* HCT 29.3* 24.4* PLATELET 670* 257 Recent Labs 09/01/22 0945 08/31/22 1625 08/31/22 0034 NA 129* 127* 128* K 4.3 4.3 4.5 CL 92* 90* 91* CO2 25 24 26 BUN 19* 20* 18 CREATININE 0.42* 0.41* 0.39* No results for input(s): AST, ALT, ALKPHOS, BILITOT, BILIDIR in the last 168 hours. Recent Labs 09/01/22 0945 08/31/22 1625 08/31/22 0034 CALCIUM 9.5 9.4 9.4 MAGNESIUM 1.00 0.95 0.96 PHOS 2.8 3.5 3.7 No results for input(s): INR, PT, PTT in the last 168 hours. No results for input(s): CK, TROPONINT in the last 168 hours. No results for input(s): POCGLU in the last 168 hours. Microbiology: N/A Diagnostic Studies: Results for orders placed or performed during the hospital encounter of 08/21/22 XR Abdomen 1 view (Generic) (Exam End: 08/22/2022 10:20 AM) Impression Feeding tube is present with the tip in the right lower chest. Thank you for letting us participate in the care of this patient. If you are a health care provider and have any questions regarding this report, please contact the number below. For patients who have questions please contact the health director critical care that requested your imaging first. Electronically signed by: Parish Gomes MD, [facility] ([phone]), at 08/22/2022 11:53 AM XR Abdomen 1 view (Generic) (Exam End: 08/22/2022 3:46 PM) Impression 1. Enteric tube tip and side-port project over the expected location of the right mainstem bronchus. I Nicki Castanon MD discussed the results (Impression #1) with JEANINE Root on 08/22/2022 4:13 PM and verified that the results were understood. Meredith reported that they had already pulled the enteric tube. We discussed that if there is concern for pneumothorax a dedicated chest radiograph is recommended. Thank you for letting us participate in the care of this patient. If you are a health care provider and have any questions regarding this report, please contact the number below. For patients who have questions please contact the health director critical care that requested your imaging first. Electronically signed by: Nicki Castanon MD, [facility] ([phone]), at 08/22/2022 4:14 PM XR Chest One View (Exam End: 08/22/2022 5:13 PM) Impression 1. Faint left basilar opacity which can be seen in atelectasis or pneumonitis. 2. No pneumothorax. 3. Distended loops of colon in the LEFT upper quadrant Preliminary report signed by: Hermelindo Garcia at 08/22/2022 5:35 PM I have personally reviewed the image(s) and the resident's interpretation and agree with the findings, LILY CELESTE MD at 08/22/2022 5:39 PM Thank you for letting us participate in the care of this patient. If you are a health care provider and have any questions regarding this report, please contact the number below. For patients who have questions please contact the health director critical care that requested your imaging first. Electronically signed by: LILY CELESTE MD, [facility] ([phone]), at 08/22/2022 5:39 PM XR Abdomen 1 view (Generic) (Exam End: 08/22/2022 6:42 PM) Impression Nasogastric tube placement with side hole projecting over the GE junction. Tip overlies the mid stomach. Thank you for letting us participate in the care of this patient. If you are a health care provider and have any questions regarding this report, please contact the number below. For patients who have questions please contact the health director critical care that requested your imaging first. Electronically signed by: LILY CELESTE MD, [facility] ([phone]), at 08/22/2022 6:52 PM XR Chest One View (Exam End: 08/30/2022 8:39 AM) Impression No acute cardiopulmonary disease. Thank you for letting us participate in the care of this patient. If you are a health care provider and have any questions regarding this report, please contact the number below. For patients who have questions please contact the health director critical care that requested your imaging first. 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 She underwent tracheostomy, neck exploration, mandible excision and fibula free flap reconstruction 08/21. Medicine is being consulted for hyponatremia and elevated TSH. She has a known hx of hypothyroidism, and has been on her home synthroid dosing while in the hospital. Though, TSH is elevated, free T4 is on the border of low- normal and she is asymptomatic. Notable, up until recently it was being crushed and delivered via NG tube, close to the time's tube feeds have been running. Thyroid replacement should be given 1 hour separately from any other medication, supplement or nutrition to ensure it's proper absorbed. Additionally, it is very common for the TSH to flux in the hospital during acute illness. Without symptoms or overtly low free T4, would continueon her current dose and recheck labs in 1-2 weeks. Hyponatremia is likely a result of changes in nutrition concentrations and she was getting added free water boluses. Today's sodium is already trending in the correct direction and she is asymptomatic. Recommend monitoring with daily BMPs as she gets her PEG and re-started on enteral feeds. IF sodium trends down, would discuss with nutrition about altering nutrition formulation and/or adjusting amount of free water. Recommendations: - Recheck TSH/Free T4 in 1-2 weeks (can be inpatient vs outpatient) - Continue home Synthroid 100mcg daily - Ensure Synthroid is given at least 1 hour from any other medication, supplement, meal or artifical nutrition - Continue to trend sodium with daily BMP - IF after PEG and tube feeds restarted the sodium trends down again, consider talking with nutrition about adjusting the concentration and/or free water amount in the feed. Case was discussed with medicine consult attending, Dr. Francois. [facility] medicine will follow labs.Please reach back out to pager #[phone] if another specific questions arises. Lenora Santa MD Internal Medicine, PGY3 [facility] Pager # [phone] Associated attestation - Jorge Alberto Francois DO - 09/01/2022 10:34 PM EDT Hospital Medicine Attending Attestation: Patient seen and examined independently. Available diagnostic testing reviewed. Management and planfor today reviewed with team. I agree with the findings and plans as documented in Lenora Santa MD's note with any additions and/or corrections noted below. Hyponatremia noted yesterday after a lab holiday for 5 days. Improved today. Suspect due to free water boluses as recently made NPO while awaiting G-tube placement. May need to adjust tube feed concentration and free water bolues to maintain normal Na. Agree with repeating TSH in 1-2 weeks. I have examined the patient myself and personally reviewed all studies. In addition, I certify thatI am a [facility] credentialed attending provider with admitting privileges and that the patient meets or has met medical necessity to require an inpatient IPI level of care meeting a minimum of two midnights or is on the [facility] inpatient only procedure list (status C) due to: Acute hyponatremia Jorge Alberto Francois DO Pager [phone] 09/01/2022 10:31 PM * Plan of Care - Catherine Morataya RN - 08/31/2022 6:35 PM EDT OUTCOME EVALUATION NOTE: OUTCOME SUMMARY: Pt A&Ox4, VSS, trach capped, RA. Strong, spontaneous cough, oral suctioning independently per pt. Flap CMS q4. Ambulated hallways. TPN changed to 100 mL/hr. Emergency airway equipment at bedside.Gen surgery consulted, plan for peg tomorrow. NPO at midnight. PLAN MOVING FORWARD: VS q4hrs Flap check q4hrs Pain management D/c planning INDIVIDUALIZED FALL PREVENTION INTERVENTIONS: Patient-specific fall risk factors per assessment: lines and wires Assistance: SBA, FWW Supervision: Eyes on, Arms reach, Hands on Surveillance: Bed locked in low position, call ramirez within reach, purposeful hourly rounding, clutter free environment, bed/chair alarm on Patient-specific fall prevention interventions for sensory deficits provided: N/A CPG GOAL OUTCOME EVALUATION: Continue care plan as documented. Problem: Bleeding (Surgery Nonspecified) Goal: Absence of Bleeding Outcome: Ongoing (Interventions Implemented as Appropriate) Problem: Infection (Surgery Nonspecified) Goal: Absence of Infection Signs and Symptoms Outcome: Ongoing (Interventions Implemented as Appropriate) Problem: Pain (Surgery Nonspecified) Goal: Acceptable Pain Control Outcome: Ongoing (Interventions Implemented as Appropriate) Problem: Pain Acute Goal: Acceptable Pain Control and Functional Ability Outcome: Ongoing (Interventions Implemented as Appropriate) Problem: Adult Inpatient Plan of Care Goal: Plan of Care Review Outcome: Ongoing (Interventions Implemented as Appropriate) Goal: Patient-Specific Goal (Individualized) Outcome: Ongoing (Interventions Implemented as Appropriate) Goal: Absence of Hospital-Acquired Illness or Injury Outcome: Ongoing (Interventions Implemented as Appropriate) Goal: Optimal Comfort and Wellbeing Outcome: Ongoing (Interventions Implemented as Appropriate) Goal: Readiness for Transition of Care Outcome: Ongoing (Interventions Implemented as Appropriate) Problem: Infection Goal: Absence of Infection Signs and Symptoms Outcome: Ongoing (Interventions Implemented as Appropriate) Problem: Impaired Wound Healing Goal: Optimal Wound Healing Outcome: Ongoing (Interventions Implemented as Appropriate) * Consult Note - Toby Toledo MD - 08/31/2022 4:28 PM EDT [facility] Consult Note Consultation Requested by: Roberth Lee MD Consult Reason: PEG placement HPI: Theresa Hollis is a 52 y.o. female with a history of [id number] SCCa of the left lateral tongues/p hemiglossectomy, left neck dissection 1-5, skin graft, allograft (10/31/06) followed by adjuvantchemo XRT now presenting with ORN of the mandible. She underwent tracheostomy, neck exploration, mandible excision, and fibula free flap reconstruction 08/21 with ENT and PRS. Her NGT was removed on 08/30 and initiated on pur??ed diet as per INFORMATION DEVELOPER recommendation. However as of this a.m., she endorsed having a hard time swallowing with some concerns for microaspiration. Indirect laryngoscopy performed bedside by ENT that noted left-sided vocal cord paresis. Patient reports having a prior G-tube during her radiotherapy in 2006. She expresses that she would want one placed during this admission as this would help allow time to gradually improve her swallowing. Otherwise she has had no prior abdominal surgeries except for G-tube placed in 2006. 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 Hyperlipidemia Hypothyroidism Past Surgical History: Procedure Laterality Date GLOSSECTOMY Right partial LYMPHADENECTOMY SND 1-5 MO PREP FACE/ORAL PROST MANDIBULAR N/A 08/21/2022 IMPRESSION AND CUSTOM PREPARATION,MANDIBULAR RESECTION PROSTHESIS (WRVU 22.85) performed by Keyur Ng MD at [facility] MAIN OR PRO ADJ TISS XFER HEAD, FAC, HAND <10SQCM 08/21/2022 ADJ.TISSUE TRANSFER, REARRANGEMENT, 10SQ.CM OR LESS, NECK (WRVU 8.6) performed by Kelly Laguna MDat [facility] MAIN OR PRO BONE BIOPSY,TROCAR/NEEDLE SUPERF Left 05/06/2014 BIOPSY BONE, TROCAR OR NEEDLE, SUPERFICIAL, MANDIBLE performed by Alfred Vital MD at [facility] [place] [facility] BONE-SKIN GRAFT, MICROVASCULAR 08/21/2022 @FLAP, FREE OSTEOCUTANEOUS W MICROVASC, FIBULA (WRVU 45.43) performed by Kelly Laguna MD at [facility] OR [facility] CERVICAL LYMPHADECTOMY MODIFIED RADICAL NECK DISSECTION Right 08/21/2022 @CERVICAL LYMPHADENECTOMY (MODIFIED RADICAL NECK DISSECTION)-JANA , ROBOTIC (WRVU 23.95) performed by Roberth Lee MD at [facility] OR [facility] DEBRIDEMENT BONE MUSCLE &/FASCIA 20 SQ CM/< Bilateral 11/17/2019 DEBRIDEMENT SKIN, SUBCU, MUSCLE, BONE, HEAD/NECK (WRVU 4.1) performed by Keyur Ng MD at [facility] OR [facility] EXCISION OF BONE, LOWER JAW Bilateral 08/21/2022 EXCISION OF BONE, MANDIBLE (WRVU 10.03) performed by Roberth Lee MD at [facility] OR [facility] INJECTION PLATELET PLASMA WITH IMAGE, HARVEST/PREP 11/17/2019 INJECTION(S), PLATELET RICH PLASMA, ANY SITE, INCLUDING IMAGE GUIDANCE, HARVESTING AND PREPARATION WHEN PERFORMED performed by Keyur Ng MD at [facility] OR PRO RECONSTR JAW, FULL ENDO IMPLNT N/A 08/21/2022 RECONSTRUCT MANDIBLE OR MAXILLA, ENDOSTEAL IMPLANT, COMPLETE (WRVU 18.77) performed by Keyur Ng MD at [facility] OR PRO RECONSTR MANDIBLE, BONE PLATE 08/21/2022 RECONSTRUCT MANDIBLE, EXTRAORAL, W/ TRANSOSTEAL BONE PLATE (WRVU 13.62) performed by Kelly Laguna MD at [facility] OR [facility] REMOVAL ERUPTED TOOTH WITH ELEVATION OF MUCOPERIOSTEAL FLAP N/A 05/06/2014 SURGICAL EXTRACTIONS REQUIRING ELEVATION OF MUCOPERIOSTEAL FLAP AND REMOVAL OF BONE OR SECTION OF TOOTH performed by Alfred Vital MD at [facility] MAIN OR PRO REMOVAL ERUPTED TOOTH WITH ELEVATION OF MUCOPERIOSTEAL FLAP Bilateral 11/17/2019 SURGICAL EXTRACTIONS REQUIRING ELEVATION OF MUCOPERIOSTEAL FLAP AND REMOVAL OF BONE OR SECTION OF TOOTH (WRVU 1.09) performed by Keyur Ng MD at [facility] MAIN OR PRO SPLIT GRFT TRUNK, ARM, LEG <100SQCM N/A 08/21/2022 SPLIT THICK SKIN GRAFT,100 SQ CM OR LESS, LEGS (WRVU 9.9) performed by Kelly Laguna MD at [facility] MAIN OR PRO TRACHEOSTOMY, PLANNED N/A 08/21/2022 TRACHEOSTOMY, PLANNED (WRVU 5.56) performed by Roberth Lee MD at [facility] MAIN OR SKIN GRAFT MEDICATIONS: No current facility-administered medications on file prior to encounter. Current Outpatient Medications on File Prior to Encounter Medication Sig Dispense Refill amoxicillin-clavulanate (Augmentin) 500-125 mg Tablet Take 1 tablet by mouth 2 times daily. 60 tablet 5 fluocinolone and shower cap ([place]-Smoothe/FS Scalp Oil) 0.01 % Oil Apply topically to scalp under shower cap nightly for up to 2 weeks for flares then 1- 3 times weekly prn maintenance. 118 mL 3 ketoconazole (Nizoral) 2 % Cream Apply topically 2 times daily as needed. For rash on face and/or ears (Patient not taking: Reported on 04/29/2021) 30 g 3 acetaminophen (Tylenol) 160 mg/5 mL Suspension Take 15 mg/kg/dose by mouth as needed for Fever. ibuprofen (ADVIL;MOTRIN) 100 mg/5 mL Suspension Take by mouth every 4 hours as needed for Fever. ALLERGIES: Allergies Allergen Reactions Tylenol [Acetaminophen] Anaphylaxis Allergenic Cjqkpas-Xzvf-Ahdpd Itching Applesauce Peanut Itching Benzocaine Made pt tongue red and angry. Irritant reaction - allergy testing negative Birch Other (See Comments) Birch pollen: wheezing and throat constriction FAMILY HISTORY: Denies history of bleeding or clotting disorders. Denies history of reactions to anesthesia. Family History Problem Relation Age of Onset Breast Cancer Maternal Grandmother Eczema Mother Amblyopia Paternal Uncle Strabismus Neg Hx Macular Degeneration Neg Hx Glaucoma Neg Hx SOCIAL HISTORY: Social History Socioeconomic History Marital status: Spouse [...] on file Housing Stability: Not on file REVIEW OF SYSTEMS: As stated above, otherwise ten system review negative Physical Exam: Temp: [35.8 ??C (96.4 ??F)-36.8 ??C (98.2 ??F)] Heart Rate: [88-99] Resp: [14-16] BP: (115-137)/(72-88) SpO2: [91 %-98 %] Heart Rate from SpO2: [94 bpm-105 bpm] Gen: NAD, A0x3; thin HEENT: MARIE, left FARRUKH drain to right neck, oral secretion, PMV to trach and able to vocalize but hoarse and gurgly. CVS: RRR Pulm: CTAB, breathing comfortably on RA von trach-PMV GI: scaphoid, non-tender; nondistended MSK: WWP, no edema Vascular: 2+dp/pt bilaterally Neuro: moving all 4 extremities spontaneously, nonfocal Data independently reviewed: Recent Results (from the past 24 hour(s)) Magnesium Result Value Ref Range Magnesium 0.96 0.69 - 1.07 mmol/L Basic Metabolic Panel (non-fasting) Result Value Ref Range Glucose Lvl 112 65 - 199 mg/dL BUN 18 8 - 18 mg/dL Creatinine 0.39 (L) 0.70 - 1.20 mg/dL Sodium 128 (L) 135 - 145 mmol/L Potassium 4.5 3.5 - 5.0 mmol/L Chloride 91 (L) 98 - 107 mmol/L CO2 26 22 - 31 mmol/L Anion Gap 11 5 - 15 mmol/L Calcium 9.4 8.5 - 10.5 mg/dL Estimated GFR 120 >=60 mL/min/1.73 m?? Phosphorus Result Value Ref Range Phosphorus 3.7 2.5 - 4.5 mg/dL Hemogram Result Value Ref Range WBC 8.8 4.0 - 9.5 x10(3)/mcL RBC 3.04 (L) 4.00 - 5.21 x10(6)/mcL Hemoglobin 9.7 (L) 11.7 - 15.5 g/dL Hematocrit 29.3 (L) 35.7 - 45.8 % MCV 96.4 (H) 82.6 - 94.4 fL MCH 31.9 27.1 - 32.0 pg MCHC 33.1 31.7 - 35.0 g/dL Platelets 670 (H) 145 - 357 x10(3)/mcL RDWSD 41.2 37.0 - 46.0 fL RDWCV 11.7 11.5 - 14.1 % MPV 8.8 7.6 - 12.9 fL nRBC % Auto 0.0 % nRBC Abs Auto 0.000 0.000 - 0.000 x10(3)/mcL Differential, Automated Result Value Ref Range Neutrophils % 85.4 % Neutr Abs (ANC) 7.53 (H) 1.70 - 6.10 x10(3)/mcL Lymphocytes % 6.9 % Lymphocytes Abs 0.6 (L) 0.9 - 3.2 x10(3)/mcL Monocytes % 5.6 % Monocyte Abs 0.5 0.3 - 0.9 x10(3)/mcL Eosinophils % 0.9 % Eosinophils Abs 0.1 0.0 - 0.4 x10(3)/mcL Basophils % 0.6 % Basophils Abs 0.0 0.0 - 0.1 x10(3)/mcL Immature Gran % 0.60 % Josselyn Gran Abs 0.05 (H) 0.00 - 0.04 x10(3)/mcL Imaging: reviewed Impression: 52 y.o. 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 She underwent tracheostomy, neck exploration, mandible excision, and fibula free flap reconstruction 08/21 with ENT and PRS. She is having difficulty with swallowingstatus post NG tube removal as of 08/30, with ongoing concerns for microaspiration for which generalsurgery has been consulted for PEG placement. Patient seen bedside, very pleasant, and able to communicate verbally but mostly with writing on board. She expresses her need for G-tube as this would allow her to gradually improve her swallowing and also up her nutrition. She has left vocal cord paresis as per ENT eval with some concern for microaspiration. General surgery to communicate timing for possible PEG placement. Plan discussed with Dr. Toledo. Zion Iqbal MD 08/31/2022 General Surgery p.[phone] Attending Addendum I have reviewed the history documented above and I agree with the details as written. The assessment and plan were formulated in discussion with me and I agree with them as documented. 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 She is now s/p trach, mandible excision and mandible free flap reconstruction on 08/21/22. Shehas had issues with swallowing postoperatively. NGT removed on 08/30. - recommend DHT placement and TF for nutrition - given OR availability likely earliest PEG able to be placed would be 09/04 unless ENT able to provide OR space sooner DMargarita Toledo MD * Plan of Care - Olivia Rodriguez RN - 08/31/2022 5:58 AM EDT OUTCOME EVALUATION NOTE: OUTCOME SUMMARY: Pt A&Ox4, VSS, trach capped all night on RA. Patient has a strong spontaneous cough, oral suctioning done independently per pt. Thick tracheal secretions noted. Flap check done q4 with doppler. Ambulated to the bathroom, SBA using FWW with boot on, bmx1. New IV by vascular team. TPN started at 42 ml/hr. Emergency airway equipment at bedside. Patient rested well during shift and in between care. PLAN MOVING FORWARD: VS q4hrs Flap check q4hrs Pain management D/c planning INDIVIDUALIZED FALL PREVENTION INTERVENTIONS: Patient-specific fall risk factors per assessment: lines and wires Assistance: SBA, 1-2 assist, FWW Supervision: Eyes on, Arms reach, Hands on Surveillance: Bed locked in low position, call ramirez within reach, purposeful hourly rounding, clutter free environment, bed/chair alarm on Patient-specific fall prevention interventions for sensory deficits provided: N/A CPG GOAL OUTCOME EVALUATION: Continue care plan as documented. Problem: Infection Goal: Absence of Infection Signs and Symptoms Outcome: Ongoing (Interventions Implemented as Appropriate) Problem: Pain Acute Goal: Acceptable Pain Control and Functional Ability Outcome: Ongoing (Interventions Implemented as Appropriate) * Plan of Care - Ayaka Oconnell RN - 08/30/2022 5:54 PM EDT OUTCOME EVALUATION NOTE: OUTCOME SUMMARY: A+ox4, uses written communication and can speak with cap on. Had cap on all shift, PRN trach and oral suctioning. Pt refused deep suctions but coughing out thick white/yellow secretions from mouth and trach, and around trach. NGT removed by Dr. Pacheco. Flap positive but faint. TPN initiated. No other changes. Will continue to monitor. PLAN MOVING FORWARD: Monitor flap Monitor VS D/c planning INDIVIDUALIZED FALL PREVENTION INTERVENTIONS: Patient-specific fall risk factors per assessment: lines, weakness Assistance: SBA, FWW Supervision: Arms reach Surveillance: Bed locked in low position, call ramirez within reach, purposeful hourly rounding, clutter free environment, bed/chair alarm on, family at bedside part of day Patient-specific fall prevention interventions for sensory deficits provided: N/A CPG GOAL OUTCOME EVALUATION: Continue care plan as documented. * Plan of Care - Olivia Rodriguez RN - 08/30/2022 2:45 AM EDT OUTCOME EVALUATION NOTE: OUTCOME SUMMARY: Pt A&Ox4, VSS, trach capped all night on RA. Patient has a strong spontaneous cough, oral suctioning done independently per pt. Thick frosty tracheal secretions noted. Complained of difficulty sleeping and anxious, PRN med given. ENT team made aware MD Tobias, melatonin dose changed to 6 mg. Tube feeding continued with tube care. Flap check done q4 with doppler. Ambulated to the bathroom, SBA using FWW with boot on, bmx3. Emergency airway equipment at bedside. At shift change, patient complained of shortness of breath, increase coughing with thick yellow secretions, O2Sat 96%, tachycardic HR 125. MD Pacheco made aware, trach capped. Stat EKG and Xray done. PLAN MOVING FORWARD: VS q4hrs Flap check q4hrs Tube feed 4 times/day, tube care Pain management D/c planning INDIVIDUALIZED FALL PREVENTION INTERVENTIONS: Patient-specific fall risk factors per assessment: Lines and wires, hospital environment Assistance: SBA, 1-2 assist, FWW Supervision: Eyes on, Arms reach, Hands on Surveillance: Bed locked in low position, call ramirez within reach, purposeful hourly rounding, clutter free environment, bed/chair alarm on Patient-specific fall prevention interventions for sensory deficits provided: Yes CPG GOAL OUTCOME EVALUATION: Continue care plan as documented. Problem: Pain Acute Goal: Acceptable Pain Control and Functional Ability Outcome: Ongoing (Interventions Implemented as Appropriate) Problem: Adult Inpatient Plan of Care Goal: Optimal Comfort and Wellbeing 08/30/2022 [id number] by Olivia Rodriguez RN Outcome: Ongoing (Interventions Implemented as Appropriate) Page Sent Successfully Page Confirmation To Pager number: [phone] From Submitter: Olivia Rodriguez Urgency Level: FYI Callback Number: [phone] The following Message was sent: [] - Callback:[phone] S. Pt is still having trouble sleeping, no sleep at all - Olivia Rodriguez The following status was returned from the gravity meter observer: Page for [phone] successfully sent to [phone] having status of Available. * Plan of Care - Olivia Rodriguez RN - 08/29/2022 6:53 AM EDT OUTCOME EVALUATION NOTE: OUTCOME SUMMARY: Pt A&Ox4, VSS, trach capped, HTC at 40L/min at 21% FiO2. Patient has a strong spontaneous cough, oral suctioning done independently per pt. Thick frosty tracheal secretions noted. Complained of pain managed by PRN pain med. Tube feeding continued, but refused tube feeding last night. Flap checkdone q4 with doppler. Ambulated to the bathroom, SBA using FWW with boot on, bmx1. Emergency airway equipment at bedside. PLAN MOVING FORWARD: VS q4hrs Flap check q4hrs Tube feed 4 times/day, tube care Pain management D/c planning INDIVIDUALIZED FALL PREVENTION INTERVENTIONS: Patient-specific fall risk factors per assessment: Generalized weakness, hospital environment, devices/wires/tubes Assistance: SBA, 1 assist, FWW Supervision: Arms reach, Hands on Surveillance: Bed locked in low position, call ramirez within reach, purposeful hourly rounding, clutter free environment, bed/chair alarm on Patient-specific fall prevention interventions for sensory deficits provided: Yes CPG GOAL OUTCOME EVALUATION: Continue care plan as documented. Problem: Infection (Surgery Nonspecified) Goal: Absence of Infection Signs and Symptoms Outcome: Ongoing (Interventions Implemented as Appropriate) Problem: Bleeding (Surgery Nonspecified) Goal: Absence of Bleeding Outcome: Ongoing (Interventions Implemented as Appropriate) Problem: Pain (Surgery Nonspecified) Goal: Acceptable Pain Control Outcome: Ongoing (Interventions Implemented as Appropriate) Problem: Infection Goal: Absence of Infection Signs and Symptoms Outcome: Ongoing (Interventions Implemented as Appropriate) * Consult Note [facility] 08/28/2022 2:40 PM EDT BIT (Behavioral Intervention Team) [facility] met briefly with this patient. Patient wrote on her white board that she had just met with Jessica from [facility] and they were able to identify a psychological plan to help her to cope. She wrote out the tenets of the plan on her white board for my review. Patient feeling that there's not a need for BIT services at this moment. She expressed appreciationfor the offer and knowing that she can speak with BIT at any point during admission. I left my nameand pager on her board and will follow patient's case in order to engage with her as needed or requested by patient and/or team. Brittanie Denton MA, [facility] - BIT (Behavioral Intervention Team) Dept. of Psychiatry - Inpatient Psych. Services Pager: [phone] * Plan of Care - Bridgett Bhatti RN - 08/27/2022 6:56 PM EDT OUTCOME EVALUATION NOTE: OUTCOME SUMMARY: Pt A&Ox4, tachycardic during ambulation, all other VSS on HTC at 40L/min at 21% FiO2. Suctioning done independently per pt. Thick tracheal secretions noted. Complained of pain managed by PRN painmeds with good effect. Tube feeding continued. Flap check done q4. Ambulated to the bathroom, SBA using FWW. Pt complained of 8x small amount of loose,watery stool, MD informed. came and was helpful in assisting the pt to the bathroom if needed. Pt verbalized being sad for everything she's going through now and was asking if there's group of people she can talk with to give her support, vp digital marketing social media and crm and caustic purification operator consult suggested and pt is open for it. Pt also requested for Psyche consult. Bathe. Safety maintained. Pt complained of feeling hot in her face, MD aware. Cold pack provided. PLAN MOVING FORWARD: VS q4 Flap check q4 Tube Feed Pain Management DC Planning INDIVIDUALIZED FALL PREVENTION INTERVENTIONS: Patient-specific fall risk factors per assessment: Generalized weakness, hospital environment, devices/wires/tubes Assistance: SBA, FWW Supervision: Hands on Surveillance: Bed locked in low position, call ramirez within reach, purposeful hourly rounding, clutter free environment, bed/chair alarm on, family at bedside Patient-specific fall prevention interventions for sensory deficits provided: N/A CPG GOAL OUTCOME EVALUATION: Continue care plan as documented. * Initial Assessments - Ladi Jean, OT - 08/25/2022 1:28 PM EDT Occupational Therapy Evaluation Patient Profile: Theresa Hollis is a 52 y.o. 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 She underwent tracheostomy, neck exploration, mandible excision, and fibula free flap reconstruction 08/21 with ENT and PRS. Active Non-Hospital Problems Diagnosis Family hx-breast malignancy Carpal tunnel syndrome Dental abscess Facial abscess Hyperlipidemia Neck muscle spasm Throat discomfort Depressive disorder Osteoradionecrosis of jaw Pathological fracture of mandible with routine healing Periodontal disease DIFFICULT AIRWAY Radiation injury Tinnitus History of tongue cancer Hypothyroidism (acquired), radiation-induced s/p XRT for SCC tongue ca in 2006 with TSH 105 in 06/25 Tongue cancer Social History: Confirmed social history obtained by PT with Pt and . Patient lives with Harinder in a single level [place] [facility]. Has ~ 15 IRENE without rails. Normallyindependent without device. 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 They have two dogs - basset hound and corgi mix. Pt's bathroom has tub shower and her 's has walk in (could switch if needed). Pt's has hand held shower. Toilet is standard. Precautions/Special Considerations: Full code, Neck should remain in neutral position, tracheostomy, DHT, PIV, wound vac to RLE, FARRUKH drain to R neck, TTWB in boot when out of bed, up in chair, AAT, NPO diet Subjective: I would like to get to the bathroom. (Pt wrote). Objective: Seen today for OT evaluation. Vital Signs: HR: 100 bpm SpO2: 98 on humidified air via trach collar 21% Pain: no outward complaints Skin: Trached Cognitive Status/Behavior: Behavior / Mood: alert and cooperative Alert and oriented to: person, place, time, and situation Follows commands: 1 step and 2 step Attention: WFL Safety awareness: WFL, advocates for herself, informs staff of need to wear walking boot on R LE with getting up and switch out of multi-podus boot. Vision & Perception: WNL / WFL and corrective lenses daytime babysitter Communication/Hearing: Hearing WFL bilaterally Trached, communicating via writing Finds writing slightly frustrating at times, but is efficient for writing. Discussed communication sheets might be helpful to try as well. Musculoskeletal: Hand dominance: right ROM: B Ues moving WFL, good flexibility in Les. Draws legs up toward chest to assist with donning socks/shoes. Neck ROM limited post recent surgery. Strength: B Ues and Les moving anti-gravity Activities of Daily Living: Self-feeding: NPO. Nutrition via alternate means. Grooming: Wipes face, and suctions independently. Dressing: Min A to switch out multi-podus boot to walking boot on R LE, and don socks and tie shoe on L in bed. Bathing: Discussed shower set-up,and potential DME needs. Educated them about transfer bench. Toileting: Pt indicating need to use bathroom. Pt CG A to ambulate to/from the bathroom using walker, and transfer on/off toilet. Pt completed hygiene seated with supervision seated. Functional Mobility: Supine <> Sit: supervised Sit <> Stand: CG A to walker with cues for technique Ambulation: CG A to ambulate to/from the bathroom using walker and good at maintaining weight bearing with task. Assistance for wound vac/feeds on pole. Balance: Sitting Static: good Sitting Dynamic: good Standing Static:good with UE support Standing Dynamic / Gait: fair with walker Education: Patient has been educated on Role of occupational therapy and rehabilitation, Transfers,ADL's, Safety, Functional Mobility, Balance, DME Recommendations, Safe ROM/Exercise, and Discharge planning. Patient verbalized understanding. Patient status, treatment, and activity/mobility recommendations discussed with nursing. Assessment: Pt has been seen for occupational therapy evaluation. Theresa Hollis presents with the following performance skill deficits and client factors: decreased activity tolerance, decreased strength, decreased sitting / standing balance, communication deficits, precautions / bracing, compromised mobility status, and skin integrity. These performance deficits have led to activity limitations and participation restrictions in the following areas of occupation: dressing, bathing, grooming,toileting, transfers / mobility, home management, and community mobility. Pt performing slightly below baseline, and feeling frustrated with her impaired ability to communicate. Pt would benefit fromfurther inpatient OT interventions to address performance deficits and maximize participation and independence with occupations of daily living. Equipment needs at discharge: walker, front wheeled (? transfer bench for tub shower (has tub shower)) Anticipated Discharge Dispostion: home with home health Activity Recommendations: Promote normalcy by encouraging participation in common daily tasks & leisure activities by providing set up assist Goals: To be achieved by 09/01/78 Pt will demonstrate independence with precautions/restrictions during ADLs. Pt will dress self independently using adaptive technique/equipment as needed (including donning walking boot on R LE). Pt will ambulate independently for ADLs with AD. Pt will pace self accordingly, and complete bathing/shower routine independently /p set-up, using appropriate DME/AE as needed. Pt will be independent managing toileting routines in bathroom. Pt will be able to communicate her needs with minimal frustration. OT: Therapy Frequency (OT): 1-3 times/wk Planned OT interventions: Role of occupational therapy/rehabilitation, Transfers, Assistive device/technique, Adaptive equipment training, ADL, Exercise, Breathing exercises, Positioning, Safety, Precautions/Protocol, Brace Management, communication, cognition, Car Transfers, Functional Mobility, Ac tivity pacing/Energy conservation, Home Program, Home Management, Balance, Recommendations, Family training, and Discharge planning. Total Minutes, Occupational Therapy: 47 (13:28-14:15 (eval)) 2017 OT Evaluation Code Rationale: Diagnosis & Pertinent Co-Morbidities affecting Plan of Care: see PMHx Occupational Profile & Client History: Brief Expanded Extensive x Assessment of Occupational Performance: 1-3 performance deficits 3-5 performance deficits x 5 + performance deficits Clinical Decision Making: Low Moderate High x Clinical decision making of moderate complexity using standardized patient assessment instrument and measurable assessment of functional outcome. Ladi Jean, OTR Pager [phone] Occupational Therapy Rehabilitation Department * Plan of Care - Bettye Friedman RN - 08/24/2022 6:48 PM EDT OUTCOME EVALUATION NOTE: OUTCOME SUMMARY: Patient is AOx4 bue 5/5 strength ble 4/5 strength Patient is s/p neck exploration, tracheostomy, mandible excision, and fibula free flap reconstruction, 3 Days Post-Op. Trache size 6 and dht to Yessi pardo. PLAN MOVING FORWARD: Snf or rehab INDIVIDUALIZED FALL PREVENTION INTERVENTIONS: Patient-specific fall risk factors per assessment: recent surgery, weakness Assistance: 1-2 assist, FWW, or in Bed w/ Q2hr turns Supervision: Hands on Surveillance: Bed locked in low position, call ramirez within reach, purposeful hourly rounding, clutter free environment, bed/chair alarm on, Patient-specific fall prevention interventions for sensory deficits provided: Yes bed alarm CPG GOAL OUTCOME EVALUATION: Continue care plan as documented. * Plan of Care - Yun Bourgeois RN - 08/24/2022 5:31 PM EDT OUTCOME EVALUATION NOTE: OUTCOME SUMMARY: Pt A&O x4; writes on whiteboard to communicate. Pt follows commands in all extremities. PRN Dilaudid for pain. Pt SR to ST on tele. Pt remains on heated trach collar. Pt has moderate amount thick, osorio secretions per trach. Pt able to cough up secretions. TF increased to goal. Pt voiding adequate amount yellow urine per bedpan and toilet. Pt worked with PT and ambulated in the burch x1 assist with walker. Pt up in chair for 2 hrs. FARRUKH with small amount SS output. Wound vac in place to RLE. Soft boot in place to RLE while in bed and walking boot in place to RLE when OOB. Foam dressing in place to right thigh with dried drainage. in to visit pt. 1725 Pt transferred with RT to 502 with meds, chart, trach to go kit, and all belongings. Report given to FUENTES Wen and bedside flap check completed. PLAN MOVING FORWARD: Increase mobility Monitor labs INDIVIDUALIZED FALL PREVENTION INTERVENTIONS: Patient-specific fall risk factors per assessment: [current deficits]: ongoing Assistance [level of assistance required for transfers and ambulation]: ongoing Supervision [direct monitoring required during toileting and ADLs]: see assessment Surveillance [continuous indirect monitoring]: see assessment Patient-specific fall prevention interventions for sensory deficits provided, if applicable: bed inlowest position, frequent rounds, room near nurses station, call light within reach CPG GOAL OUTCOME EVALUATION: * Plan of Care - Dixie Da Silva RN - 08/23/2022 3:19 PM EDT OUTCOME EVALUATION NOTE: OUTCOME SUMMARY: Pt had trouble with pain management this am but since Toradol IV initiated pt states pain is manageable with a rate of 5/10. Strait cath x1 for 550ml UP to chair with PT, tolerated boot and transition well. Spouse at bedside, supportive of pt and care. PLAN MOVING FORWARD: Manage pain Cont to make progress towards goals as planned Q2 flap checks INDIVIDUALIZED FALL PREVENTION INTERVENTIONS: Patient-specific fall risk factors per assessment: [current deficits]: increased pain with mobility, RLE mobility impairment, mobility boot required. Assistance [level of assistance required for transfers and ambulation]: x1-2 hands on assist Supervision [direct monitoring required during toileting and ADLs] safety rounds, call ramirez in reach Surveillance [continuous indirect monitoring]: Safety rounds, skin, turns, pain Patient-specific fall prevention interventions for sensory deficits provided, if applicable: bed alarm, call ramirez near pt, education provided CARE PLAN GOAL OUTCOME EVALUATION: * Plan of Care - Britt Rodriguez RN - 08/22/2022 7:01 PM EDT OUTCOME EVALUATION NOTE: OUTCOME SUMMARY: Patient's pain control improved with addition of multi-modal approach including GREENHOUSE WORKER - see MAR for details. NG tube placement successful after multiple attempts. Required sedation and mechanical ventilation. Henson catheter removed per order. Incisions clean/dry/intact, FARRUKH drain with minimal serosanguinous output. Flap checks unchanged. Harinder, significant other, at bedside for majority of day. PLAN MOVING FORWARD: Pain control Flap checks q1 hour Void Initiate tube feeds INDIVIDUALIZED FALL PREVENTION INTERVENTIONS: Patient-specific fall risk factors per assessment: [current deficits]: sedation, pain, right leg surgical incisions, decreased field of vision due to face/neck swelling Assistance [level of assistance required for transfers and ambulation]: assistance x2 Supervision [direct monitoring required during toileting and ADLs]: assistance x2 Surveillance [continuous indirect monitoring]: ICU monitoring * Initial Assessments - Dominique Merino RN - 08/22/2022 10:16 AM EDT Office of Care Management Initial Assessment Dominique Merino RN reviewed record and discussed patient with Care Team. Source of Information: Team, bedside nurse, medical record, and Patient, Spouse Introduced self/reviewed role; services accepted. 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 Hyperlipidemia Hypothyroidism Hospitalizations Within the Past 30 Days: no previous admission in last 30 days Current Decision-Making Capacity: Self If AD's have not been completed the following surrogate would be surrogate decision maker per [place] decision making law. (Only good for 180 days) Any patient receiving care in [place] must abide by [place] law. The hierarchy for surrogate decision making is: (a) Patient???s spouse or civil union partner unless there is a divorce proceeding, separation agreement, or restraining order limiting that person???s relationship with the patient. (b) Any adult son or daughter of the patient. (c) Either parent of the patient. (d) Any adult brother or sister of the patient. (e) Any adult grandchild of the patient. (f) Any grandparent of the patient. (g) Any adult aunt, uncle, niece, or nephew of the patient. (h) A close friend of the patient. (i) The agent with financial power of immigration attorney or a conservator appointed in accordance with RSA 464-A. (j) The guardian of the patient???s estate. Advance Care Planning: Attempt Cardiopulmonary Resuscitation - Inpatient <no information> -Advanced Directive: No, declines Current Coping/Education/Information Needs: Patient will need trach care teaching if she dischargeswith it Current Functional Ability: Assistive Equipment and Assistive Person Functional Status Prior to Admission: Independent Prior ADLs & IADLs: Independent with all ADLs & IADLs Home Environment: Others in the home: pet(s), spouse (Patient lives with her Stephan and there 2 dogs). Current Living Arrangements: home/apartment/condo. Accessibility Concerns:Patient with 2 steps to enter with 1st floor living.. Resource / Environmental Concerns: Resource/Environmental Concerns: none Current DME: none Home Address confirmed as: [address] [facility] [address] Social & Family Supports: All names listed below confirmed with patient as current and correct Extended Emergency Contact Information Primary Emergency Contact: STEPHAN HOLLIS Address: [place] [address] [facility] Relation: Spouse Current Care Provided by: self Provides Primary Care For: no one Caregiver if needed: spouse Quality of Family relationships: helpful, involved, supportive Community Resources being provided currently: none Behavioral Health History: Patient with a history of anxiety and depression, is not taking any medication Substance Use/Abuse listed: Social History Tobacco Use Smoking Status Never Smokeless Tobacco Never 0 No problems reported 1-2 Low level 3-5 Moderate level 6-8 Substantial level 9- 10 Severe level 0 to 7 points: Low risk 8 to 15 points: Medium risk 16 to 19 points: High risk 20 to 40 points: Addiction likely Other Pertinent/Service Specific Information: denies Health/Prescription Coverage: Primary Insurance: [place] Payor[place] / Plan[place] / Product Type: *No Product type* / Secondary Insurance: N/A ; Prescription Coverage: Yes Preferred Pharmacy: [facility] [place], [place] - [address] [place] [address] [place] [phone] [place] Status: Patient is a : No Primary Care Provider confirmed: Tita Méndez, SPA TECHNICIAN [phone] Patient/Caregiver Goals of Treatment: return home when medically ready for discharge. Potential Needs for Transition of Care: home health care Agency Referrals: I have met with the patient to: discuss discharge planning needs. provide the [facility], Office of Care Management letter from the Senior Field Service Engineer pertaining to rehab referrals. provide a letter describing our affiliations within the [facility] and educate about their right to choose where referrals are sent. provide a list of Home Health Agencies / Durable Medical Equipment vendors which serve their preferred geographic area. provided patient with [facility] Star Quality Rating handout. They have requested referrals to: [facility]. [address] [place] [id number] Note routed to a Golf Starter And Ranger who will communicate referrals to facilities and provide any required information. Transportation: no concerns Transportation Anticipated: family or friend will provide Concerns to be Addressed: denies needs/concerns at this time Assessment: Patient is admitted to ENT service for tracheostomy, neck exploration, mandible excision, and fibula free flap reconstruction Plan: continues on flap checks, henson removed, trickle TF's started, will need to work with PT/OT, VNA pended, patient wants to wait for trach supplies because she is hoping it is removed at time of discharge. A member of the Care Management team will continue to monitor progress, follow for continuity of care and assist with transition of care planning. Dominique VALLES RN CM Phone: [phone] Pager: [phone] * Brief Op Note - Ilda Estrada MD - 08/21/2022 8:00 PM EDT Brief Operative Note Patient Name: Theresa Hollis : [id number] MR#: [id number] Case Date: 08/21/2022 Surgeon: Surgeon(s) and Role: Panel 1: * Roberth Lee MD - Primary * Ilda Estrada MD - Resident - Assisting Panel 2: * Keyur Ng MD - Primary Panel 3: * Kelly Laguna MD - Primary * Rohit Booker MD - Resident - Assisting * Anabell Nelson MD - Resident - Assisting Preoperative diagnosis: ORN mandible Postoperative diagnosis: ORN mandible Procedure(s) (LRB): EXCISION OF BONE, MANDIBLE (WRVU 10.03) (Bilateral) @CERVICAL LYMPHADENECTOMY (MODIFIED RADICAL NECK DISSECTION)-JANA , ROBOTIC (WRVU 23.95) (Right) TRACHEOSTOMY, PLANNED (WRVU 5.56) (N/A) RECONSTRUCT MANDIBLE OR MAXILLA, ENDOSTEAL IMPLANT, COMPLETE (WRVU 18.77) (N/A) IMPRESSION AND CUSTOM PREPARATION,MANDIBULAR RESECTION PROSTHESIS (WRVU 22.85) (N/A) @FLAP, FREE OSTEOCUTANEOUS W MICROVASC, FIBULA (WRVU 45.43) RECONSTRUCT MANDIBLE, EXTRAORAL, W/ TRANSOSTEAL BONE PLATE (WRVU 13.62) SPLIT THICK SKIN GRAFT,100 SQ CM OR LESS, LEGS (WRVU 9.9) (N/A) ADJ.TISSUE TRANSFER, REARRANGEMENT, 10SQ.CM OR LESS, NECK (WRVU 8.6) Anesthesia: General Findings: Fistula site noted along midline anterior mandible. Bilateral visor flap raised for direct visualization of the mandible. Healed pathologic fracture along left parasymphyseal region. Facial artery, vein identified and traced along the right side. External carotid artery identified. Hypoglossal nerve and ranine vein identified. Complications: n/a Estimated Blood Loss: 50cc Specimens removed during surgery: Order Name Source Comment Collection Info Order Time SPECIMEN TO PATHOLOGY ORN Mandible Right Level 1B Neck excision 08/21/2022 10:26 AM Time specimen removed from patient: 10:26 AM Number of tissue samples (in container) 1 SPECIMEN TO PATHOLOGY ORN Mandible Right Level 2A Neck excision 08/21/2022 10:30 AM Time specimen removed from patient: 10:30 AM Number of tissue samples (in container) 1 SPECIMEN TO PATHOLOGY OR #1 3-3101 ORN mandible Left Floor of Mouth excision No 08/21/2022 2:13 PM Time specimen removed from patient: 1:45 PM Number of tissue samples (in container) 1 SPECIMEN TO PATHOLOGY OR #1 3-3101 ORN mandible Mandible resection No 08/21/2022 2:13 PM Time specimen removed from patient: 2:00 PM Number of tissue samples (in container) 1 Fluids: Intraprocedure Crystalloid Total None PRBCs: none (See Anesthesia Record/Report for Other Blood Products) Urine Output: 1800 mL Drains: FARRUKH in neck. Disposition: awakened from anesthesia, extubated and taken to the recovery room in a stable condition, having suffered no apparent untoward event. Condition: doing well without problems (Please see the Surgical Encounter Summary for any Implant and Specimen details pertinent to this patient.) Surgical Infection Prevention Bundle Used? Na * Brief Op Note - Anabell Nelson MD - 08/21/2022 7:53 PM EDT Brief Operative Note Patient Name: Theresa Hollis : [id number] MR#: [id number] Case Date: 08/21/2022 Surgeon: Surgeon(s) and Role: Panel 1: * Roberth Lee MD - Primary * Ilda Estrada MD - Resident - Assisting Panel 2: * Keyur Ng MD - Primary Panel 3: * Kelly Laguna MD - Primary * Rohit Booker MD - Resident - Assisting * Anabell Nelson MD - Resident - Assisting Preoperative diagnosis: ORN mandible Postoperative diagnosis: ORN mandible Procedure(s) (LRB): EXCISION OF BONE, MANDIBLE (WRVU 10.03) (Bilateral) @CERVICAL LYMPHADENECTOMY (MODIFIED RADICAL NECK DISSECTION)-JANA , ROBOTIC (WRVU 23.95) (Right) TRACHEOSTOMY, PLANNED (WRVU 5.56) (N/A) RECONSTRUCT MANDIBLE OR MAXILLA, ENDOSTEAL IMPLANT, COMPLETE (WRVU 18.77) (N/A) IMPRESSION AND CUSTOM PREPARATION,MANDIBULAR RESECTION PROSTHESIS (WRVU 22.85) (N/A) @FLAP, FREE OSTEOCUTANEOUS W MICROVASC, FIBULA (WRVU 45.43) RECONSTRUCT MANDIBLE, EXTRAORAL, W/ TRANSOSTEAL BONE PLATE (WRVU 13.62) SPLIT THICK SKIN GRAFT,100 SQ CM OR LESS, LEGS (WRVU 9.9) (N/A) ADJ.TISSUE TRANSFER, REARRANGEMENT, 10SQ.CM OR LESS, NECK (WRVU 8.6) Anesthesia: General Findings: Mandible reconstruction with free fibula flap from right leg. Split thickness skin graft to neck and right leg donor site. Complications: None Estimated Blood Loss: 50 mL Specimens removed during surgery: Order Name Source Comment Collection Info Order Time SPECIMEN TO PATHOLOGY ORN Mandible Right Level 1B Neck excision 08/21/2022 10:26 AM Time specimen removed from patient: 10:26 AM Number of tissue samples (in container) 1 SPECIMEN TO PATHOLOGY ORN Mandible Right Level 2A Neck excision 08/21/2022 10:30 AM Time specimen removed from patient: 10:30 AM Number of tissue samples (in container) 1 SPECIMEN TO PATHOLOGY OR #1 3-3101 ORN mandible Left Floor of Mouth excision No 08/21/2022 2:13 PM Time specimen removed from patient: 1:45 PM Number of tissue samples (in container) 1 SPECIMEN TO PATHOLOGY OR #1 3-3101 ORN mandible Mandible resection No 08/21/2022 2:13 PM Time specimen removed from patient: 2:00 PM Number of tissue samples (in container) 1 Fluids: Intraprocedure Crystalloid Total None PRBCs: none (See Anesthesia Record/Report for Other Blood Products) Urine Output: 1800 mL Drains: 15F Dimitry (neck). Wound vac (right leg skin graft). Disposition: awakened from anesthesia, extubated and taken to the recovery room in a stable condition, having suffered no apparent untoward event. Condition: doing well without problems (Please see the Surgical Encounter Summary for any Implant and Specimen details pertinent to this patient.) Surgical Infection Prevention Bundle Used? N/A * Op Note - Roberth Lee MD - 08/21/2022 9:26 AM EDT Pre and postoperative diagnosis: 1. 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 Tracheostomy 2. Mandibular resection 3. 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 She is disease-free however has developed osteonecrosis of her mandible and loss of her dentition. She presents for mandibular resection and reconstruction. EBL: 100 cc for this portion of the procedure. Findings: Fistula in the left chin from the mandible with necrotic mandibular bone. Extensive radiation fibrosis of the neck making dissection extremely difficult and prolonging the portion of this procedure. No evidence of tumor was identified. Procedure description: After informed consent obtained the patient was placed under general anesthesia the table turned 180 degrees. Timeout was called the patient was prepped and draped in usual fashion. We for started with tracheotomy with 2 fingerbreadths incision made in the horizontal plane above the sternal notch through the skin down through the strap muscles and just below the thyroid isthmus. Her larynx sat pretty high in the neck and therefore a tracheotomy was situated below the isthmus probably between the third and fourth rings. The tracheotomy was made and a 6-1/2 armored tube was placed without difficulty and secured to the chest in usual fashion. Once the tracheotomy was done the patient's prior neck incision was utilized and carried over to the right-hand side to create ahigh visor flap. Incision was injected with 1% Xylocaine with 1- 200,000 epinephrine. An skin incision was made with elevation of skin flaps bilaterally. There was extensive fibrosis on the left neck identified making this portion of the dissection very difficult but we were ultimately able to carrydissection up to the lower edge of the mandible on either side and ultimately were able to reflect the neck skin over the mandible. We then incised the masseteric sling bilaterally and elevated the periosteum off the mandible both on the lateral aspect and on the lingual aspect. We attempted to preserve the mental nerves bilaterally. This was achieved by drilling out the nerve traveling through the mandible. However extensive fibrosis and scarring was identified on the left-hand side and the nerve could not be viability preserved. The right-hand side due to extensive retraction of the skin wewere unable to preserve this nerve branch either. Once the mandible was fully exposed we then placed our cutting guides which had been previously decided through a virtual surgical planning session and the cutting guides were secured to the mandiblein the usual fashion and using both reciprocating and sagittal sawblade's the cuts to the bone weremade through the cutting guides to release the mandible on both sides. We hugged the periosteum both on the lateral aspect and on the lingual aspect to try to preserve as much periosteum and mucosa as possible. With this dissection we were then able to release the mandible and remove it from the surgical field. We then continued our dissection in the right neck to identify vessels and remove any adenopathy in the area. Careful dissection level 1B was performed to identify the facial artery and the accompanying veins as well as the retromandibular vein and during this dissection the perifaciallymph nodes and other isma tissue around the submandibular gland were removed and submitted as level 1B. As we traced the vein back towards the carotid sheath we then reflected any isma tissue in the area off the jugular vein and the external carotid artery and this was submitted as level 2B. Thefacial artery was full fully skeletonized back to the external carotid and the external carotid andlingual arteries were also skeletonized. The retromandibular vein and additional branches were skeletonized back to the internal jugular vein. At this point with the mandible resected and the neck dis sected out to remove any isma tissue as well as exposed vessels the patient was turned over to thereconstructive team for the mandibular reconstruction. Please refer to their operative note for full details. Attestation: Case Date: 08/21/2022 I was present and I participated during the entire procedure (does not need to include opening and closing). ROBERTH LEE MD 08/23/2022 * Op Note - Kelly Laguna MD - 08/21/2022 9:26 AM EDT [facility] Operative Note Patient Name: Theresa Hollis : [id number] MR#: [id number] Case Date: 08/21/2022 Surgeon: Surgeon(s) and Role: Panel 1: * Roberth Lee MD - Primary * Ilda Estrada MD - Resident - Assisting Panel 2: * Keyur Ng MD - Primary Panel 3: * Kelly Laguna MD - Primary * Rohit Booker MD - Resident - Assisting * Anabell Nelson MD - Resident - Assisting Preoperative diagnosis: ORN mandible Postoperative diagnosis: ORN mandible Procedure(s) (LRB): EXCISION OF BONE, MANDIBLE (WRVU 10.03) (Bilateral) @CERVICAL LYMPHADENECTOMY (MODIFIED RADICAL NECK DISSECTION)-JANA , ROBOTIC (WRVU 23.95) (Right) TRACHEOSTOMY, PLANNED (WRVU 5.56) (N/A) RECONSTRUCT MANDIBLE OR MAXILLA, ENDOSTEAL IMPLANT, COMPLETE (WRVU 18.77) (N/A) IMPRESSION AND CUSTOM PREPARATION,MANDIBULAR RESECTION PROSTHESIS (WRVU 22.85) (N/A) @FLAP, FREE OSTEOCUTANEOUS W MICROVASC, FIBULA (WRVU 45.43) RECONSTRUCT MANDIBLE, EXTRAORAL, W/ TRANSOSTEAL BONE PLATE (WRVU 13.62) SPLIT THICK SKIN GRAFT,100 SQ CM OR LESS, LEGS (WRVU 9.9) (N/A) ADJ.TISSUE TRANSFER, REARRANGEMENT, 10SQ.CM OR LESS, NECK (WRVU 8.6) Anesthesia: General Estimated Blood Loss: 50 mL Specimens removed during surgery: None Drains: * No LDAs found * Surgical Closure: Primary Closure - skin incision is closed but with open spaces for wires, juan ramon, drains or other devices Disposition: Pt to go to ICU for flap monitoring Condition: doing well without problems (Please see the Surgical Encounter Summary for any Implant and Specimen details pertinent to this patient.) HPI/Surgical Indications: Is a 52-year-old female with a prior head neck cancer who under went evaluation was found to have osteoradionecrosis pathologic fracture and oral fistula. Given this decision was made to offer her a reconstruction in conjunction with the oral surgery and head neck surgery team. We discussed reconstructing her mandible doing dental implants at this time. Virtual surgical planning was utilized for this risk and benefits were reviewed in detail with the patient including bleeding infection scarring delayed healing flap loss need for revision or additional surgery. We discussed appearance changes need to utilize a skin paddle to inset into her chin where the fistula was need for revision or additional surgery. Procedure Description: Patient was taken to the operating room all appropriate monitoring was applied sequential compression devices were placed on the left lower extremity she was given a preoperative dose of antibiotics please see the ENT team's and the oral surgery team's notes for details of the resection of her mandible. We began by elevating her free fibula flap in the standard fashion marking out anatomic landmarks of her lateral malleolus and the head of the fibula preserving 6 cm of the distal and proximal fibula. A skin paddle was centered over the septum posterior to the fibula anterior to the soleus. Incision was made in the anterior aspect of the planned skin paddle which was a pproximately 12 x 5 cm in size. Incision was taken down to and through the fascia of reflected multiple perforators were identified a harmonic scalpel was then used to elevate the muscle off of the fibula preserving a generous because of cuff of muscle for the dental implants and intraoral reconstruction. This was taken to radiate to the interosseous septum the proximal and distal osteotomies were then made using a sagittal saw protecting the deep structures with a right angle. The interosseousseptum was then divided the tibialis posterior was carefully dissected to identifying the peroneal vessels. The distal peroneal vessels were temporarily clamped we dopplered the posterior tibial and dorsalis pedis pulses with this clamped. This vessel was then hemoclipped and divided the posterior incision was made taking cuff of soleus muscle as we elevated the skin paddle. The fibula flap was then liberated from the deep tissue using a harmonic scalpel identifying and preserving the peroneal neurovascular bundle as well as the posterior tibial neurovascular bundle during the entire dissection. The cutting guide was then secured onto the fibula with 2.0 screws. The dental implants were placed by Dr. Ng and then the osteotomies were performed. The cutting guide was removed the transosteal bone plate was then secured to the mandible using the premarked screw holes on the cutting guide. Once the plate was secured this was then secured to the 3D model and the dental reconstruction was performed please see Dr. Ng's notes for details of this. Then turned our attention to the neck. The facial artery on the right neck was carefully mobilized and dissected as it was mobilized in the neck dissection. There were 3 deep recipient veins that were draining into the internal jugular system these were all prepared there was excellent flow throughthe facial artery. We then brought the flap up into the neck total ischemia time was approximately 1 hour and 30 minutes. The flap was perfused with heparinized saline and then using the predrilled holes after the mandible resection the mandible reconstruction with the fibula was then secured to the [place] mandible using 2 of the drill holes. Appropriate size screws were placed based on the measurements from the virtual surgical planning. Once this was complete operating microscope was then brought in the vessels were prepared under the operating microscope the 2 vena comitans were repaired to the deep neck veins using a 4 mm and a 3 mm telesales manager and then the artery was repaired with interrupt ed nylon sutures. The temporary aneurysm clamp was removed there was excellent perfusion through the flap and easily located Doppler signal and bright red blood from the edges. The remainder of the inset of the bone plate was then performed drilling the posterior to holes on the plate on either side and then placing locking screws into the plate. Once the fibula was secure we then inspected the oral cavity there was a minimal amount of mucosal defect and after careful discussion using a team approach with myself Dr. Manjit curry as well as Dr. Ng we discussed closing of this mucosa partially and allowing the muscle to granulate in order to allow for a acceptable profile for placing the dental implant. The right leg wound was closed proximally and distally after assuring hemostasis with interrupted Vicryl's and a subcuticular moderate Monocryl. This left a 3- 1/2 cm x 10 cm ellipse that was not ableto be closed primarily this was then closed by placing a skin graft that was harvested from the right thigh at 12 1000 of an inch meshed to 1-1.[address] with 4-0 plain gut suture and then aAdaptic and a wound VAC was placed. The neck skin was carefully inspected. Approximately 2 cm ellipse of skin was removed at the inferior chin where the fistula was. When we attempted to bring the neck skin down over the reconstructed mandible the skin was significantly tense and appeared to be to tight to allow for adequate perfusion. An incision was made in the inferior skin from the inferior portion of the skin resection vertically. This allowed for significant relaxation of the skin and then the skin flaps were then mobilizedlaterally and the fibula skin was inset medially. The fibula skin was de-epithelialized on either side of where the skin needed to be inset centrally. With this central incision the skin of the neck was then at able to be brought down and was advanced laterally on both sides. This was secured with interrupted 3-0 Vicryl sutures. The central skin paddle was then inset with interrupted 3-0 Vicryl sutures as well. Small area of muscle where the inferior portion of the fibula was in the fistula waswas skin grafted with a piece of the skin graft that had been harvested for the lower extremity. This was secured in place with plain gut suture. The intraoral closure was performed by advancing the mucosa and closed this with interrupted chromic sutures approximating the mucosa up to the muscle edge. The neck wound was copiously irrigated drain was placed the platysma was closed with interruptedVicryl sutures and then skin shayna. Patient had her endotracheal tube transition to a tracheostomy. And then she was turned over to anesthesia to be taken to the ICU. Surgical Infection Prevention Bundle Used? No Attestation: Case Date: 08/21/2022 I was present and I participated during the entire procedure (does not need to include opening and closing). KELLY LAGUNA MD 08/21/2022 * Op Note - Keyur Ng MD - 08/21/2022 9:26 AM EDT [facility] [place] Operative Note Patient Name: Theresa Hollis : [id number] MR#: [id number] Case Date: 08/21/2022 Surgeon: Surgeon(s) and Role: Panel 1: * Roberth Lee MD - Primary * Ilda Estrada MD - Resident - Assisting Panel 2: * Keyur Ng MD - Primary Panel 3: * Kelly Laguna MD - Primary * Rohit Booker MD - Resident - Assisting * Anabell Nelson MD - Resident - Assisting Preoperative diagnosis: ORN mandible Postoperative diagnosis: ORN mandible Procedure(s) (LRB): EXCISION OF BONE, MANDIBLE (WRVU 10.03) (Bilateral) @CERVICAL LYMPHADENECTOMY (MODIFIED RADICAL NECK DISSECTION)-JANA , ROBOTIC (WRVU 23.95) (Right) TRACHEOSTOMY, PLANNED (WRVU 5.56) (N/A) Dr. Ng's part: RECONSTRUCT MANDIBLE OR MAXILLA, ENDOSTEAL IMPLANT, COMPLETE (WRVU 18.77) (N/A) IMPRESSION AND CUSTOM PREPARATION,MANDIBULAR RESECTION PROSTHESIS (WRVU 22.85) (N/A) @FLAP, FREE OSTEOCUTANEOUS W MICROVASC, FIBULA (WRVU 45.43) RECONSTRUCT MANDIBLE, EXTRAORAL, W/ TRANSOSTEAL BONE PLATE (WRVU 13.62) SPLIT THICK SKIN GRAFT,100 SQ CM OR LESS, LEGS (WRVU 9.9) (N/A) ADJ.TISSUE TRANSFER, REARRANGEMENT, 10SQ.CM OR LESS, NECK (WRVU 8.6) Findings: implants stable in fibula with good torque values > 35N=cm Anesthesia: General Estimated Blood Loss: 50 mL Specimens removed during surgery: Order Name Source Comment Collection Info Order Time SPECIMEN TO PATHOLOGY ORN Mandible Right Level 1B Neck excision 08/21/2022 10:26 AM Time specimen removed from patient: 10:26 AM Number of tissue samples (in container) 1 SPECIMEN TO PATHOLOGY ORN Mandible Right Level 2A Neck excision 08/21/2022 10:30 AM Time specimen removed from patient: 10:30 AM Number of tissue samples (in container) 1 SPECIMEN TO PATHOLOGY OR #1 3-3101 ORN mandible Left Floor of Mouth excision No 08/21/2022 2:13 PM Time specimen removed from patient: 1:45 PM Number of tissue samples (in container) 1 SPECIMEN TO PATHOLOGY OR #1 3-3101 ORN mandible Mandible resection No 08/21/2022 2:13 PM Time specimen removed from patient: 2:00 PM Number of tissue samples (in container) 1 Drains: see plastic surgeyr note Surgical Closure: see ENT/PRS note Disposition: taken to ICU and trach change Condition: doing well without problems (Please see the Surgical Encounter Summary for any Implant and Specimen details pertinent to this patient.) HPI/Surgical Indications: See previous preop History and Physical for full details. Procedure Description: See dictations from Dr. Lee and Dr. Laguna regarding their part of the procedure. Assistance was performed with the mandibular model and resection guides level. Once the fibula was harvested by Dr. Laguna I then at the leg placed 6 endosteal implants. Tammy TSV 3.7 mm x 8 mm. Drill sequence was up to 3.4 mm and full tapping of the fibula was performed and the implants were inserted with a torque value greater than 35 N centimeters. 1 implant on the most distal left side at approximately two threads exposed and I was unable to torque it down further. Then 5 mm multiunit abutments were placed and then temporary copings were placed. Once the segment of the fibula was osteotomized by Dr. Laguna a mandibular resection jig was utilized in order to fit the fibula form and secured with a premade titanium plate. Then the dental prosthesis that was made was fit over the copings and the jig was placed into an occlusion. Once the copings were placed the screws were tightened along the fibula and the plate and using chair side curable resin to secure the titanium copings to the dental prosthesis was performed. Then the prosthesis was then screwed out once the occlusion and fit of the fibula and teeth was confirmed to an ideal addition. The fibula and plate model was taken up to the mandible and secured by Dr. Laguna and see his part for microvascular phimosis of the fibula segment. Given the risks of the chin and mucosal breakdown decision was made in conjunction with Dr. Laguna and Dr. Lee to hold off on inserting the denture as this would require larger intraoral incisions and they were concerned about viability. As such immediate insertion of the prosthesis was not done intraorally but was secured and registered relative to her upper teeth on the fibula and we will consider performing this at a second stage once soft tissue healing has been confirmed. Closure was performed intraorally by Dr. Laguna and neck incision was closed by Dr. Laguna plastic surgery team. See their dictations for details. Surgical Infection Prevention Bundle Used? N/A documented in this encounter Plan of Treatment Scheduled Orders Name Type Priority Associated Diagnoses Orde r Schedule IR Suture Release Imaging Routine Gastrostomy tube in place Expected: 09/12/2022, Expires: 03/14/2023 Scheduled Referrals Name Type Priority Associated Diagnoses Orde r Schedule Referral to Home Health Outpatient Referral Routine Osteoradionecrosis of jaw Ordered: 09/08/2022 Referral to Speech Therapy Outpatient Referral Routine Osteoradionecrosis of jaw Ordered: 09/08/2022 documented as of this encounter Procedures Procedure Name Priority Date/Time Associated Diagnosis Comments XR CHEST ONE VIEW STAT 09/07/2022 3:1 9 PM EDT EKG 12-LEAD STAT 09/07/2022 12:42 PM EDT Dyspnea, unspecified type HEMOGRAM Routine 09/07/2022 12:30 AM EDT DIFFERENTIAL, AUTOMATED Routine 09/07/2022 12:30 AM EDT CBC (WITH DIFF) Routine 09/07/2022 12:30 AM EDT PHOSPHORUS Routine 09/07/2022 12:30 AM EDT MAGNESIUM Routine 09/07/2022 12:30 AM EDT BASIC METABOLIC PANEL Routine 09/07/2022 12:30 AM EDT HEMOGRAM Routine 09/06/2022 4:03 AM EDT DIFFERENTIAL, AUTOMATED Routine 09/06/2022 4:03 AM EDT CBC (WITH DIFF) Routine 09/06/2022 4:03 AM EDT PHOSPHORUS Routine 09/06/2022 4:03 AM EDT MAGNESIUM Routine 09/06/2022 4:03 AM EDT BASIC METABOLIC PANEL Routine 09/06/2022 4:03 AM EDT IR G-TUBE PLACEMENT Routine 09/05/2022 1 2:12 PM EDT PERCUTANEOUS GASTROSTOMY 09/05/2022 10:34 AM EDT DIFFICULTY SWALLOWING HEMOGRAM Routine 09/05/2022 2:45 AM EDT DIFFERENTIAL, AUTOMATED Routine 09/05/2022 2:45 AM EDT CBC (WITH DIFF) Routine 09/05/2022 2:45 AM EDT PHOSPHORUS Routine 09/05/2022 2:45 AM EDT MAGNESIUM Routine 09/05/2022 2:45 AM EDT BASIC METABOLIC PANEL Routine 09/05/2022 2:45 AM EDT HEMOGRAM Routine 09/04/2022 12:25 AM EDT DIFFERENTIAL, AUTOMATED Routine 09/04/2022 12:25 AM EDT CBC (WITH DIFF) Routine 09/04/2022 12:25 AM EDT PHOSPHORUS Routine 09/04/2022 12:25 AM EDT MAGNESIUM Routine 09/04/2022 12:25 AM EDT BASIC METABOLIC PANEL Routine 09/04/2022 12:25 AM EDT EGD-PEG PLACEMENT Routine 09/03/2022 12: 49 PM EDT HEMOGRAM Routine 09/03/2022 2:00 AM EDT DIFFERENTIAL, AUTOMATED Routine 09/03/2022 2:00 AM EDT CBC (WITH DIFF) Routine 09/03/2022 2:00 AM EDT PHOSPHORUS Routine 09/03/2022 2:00 AM EDT MAGNESIUM Routine 09/03/2022 2:00 AM EDT BASIC METABOLIC PANEL Routine 09/03/2022 2:[address] PICC LINE: CONTACT VASCULAR ACCESS Routine 09/02/2022 4:31 PM EDT XR PICC PLACEMENT OVER 5 YEARS (IV TEAM) Routine 09/02/2022 4:21 PM EDT HEMOGRAM Routine 09/02/2022 12:28 AM EDT DIFFERENTIAL, AUTOMATED Routine 09/02/2022 12:28 AM EDT CBC (WITH DIFF) Routine 09/02/2022 12:28 AM EDT PHOSPHORUS Routine 09/02/2022 12:28 AM EDT MAGNESIUM Routine 09/02/2022 12:28 AM EDT BASIC METABOLIC PANEL Routine 09/02/2022 12:28 AM EDT LAVENDER TUBE HOLD STAT 09/01/2022 9: 45 AM EDT PHOSPHORUS STAT 09/01/2022 9:45 AM EDT MAGNESIUM STAT 09/01/2022 9:45 AM EDT BASIC METABOLIC PANEL STAT 09/01/2022 9:45 AM EDT ELECTROLYTES, URINE, RANDOM Routine 09/01/2022 9:30 AM EDT TSH CASCADE Routine 09/01/2022 12:42 AM EDT TSH Routine 09/01/2022 12:42 AM EDT T4, FREE Routine 09/01/2022 12:42 AM EDT PHOSPHORUS STAT 08/31/2022 4:25 PM EDT MAGNESIUM STAT 08/31/2022 4:25 PM EDT BASIC METABOLIC PANEL STAT 08/31/2022 4:25 PM EDT HEMOGRAM Routine 08/31/2022 11:37 AM EDT DIFFERENTIAL, AUTOMATED Routine 08/31/2022 11:37 AM EDT CBC (WITH DIFF) Routine 08/31/2022 11:37 AM EDT PHOSPHORUS Routine 08/31/2022 12:34 AM EDT MAGNESIUM Routine 08/31/2022 12:34 AM EDT BASIC METABOLIC PANEL Routine 08/31/2022 12:34 AM EDT XR CHEST ONE VIEW STAT 08/30/2022 8:3 9 AM EDT EKG 12-LEAD STAT 08/30/2022 8:32 AM EDT Tachycardia HEMOGRAM Routine 08/26/2022 5:39 AM EDT DIFFERENTIAL, AUTOMATED Routine 08/26/2022 5:39 AM EDT CBC (WITH DIFF) Routine 08/26/2022 5:39 AM EDT PHOSPHORUS Routine 08/26/2022 5:39 AM EDT MAGNESIUM Routine 08/26/2022 5:39 AM EDT BASIC METABOLIC PANEL Routine 08/26/2022 5:39 AM EDT HEMOGRAM Routine 08/25/2022 9:07 AM EDT DIFFERENTIAL, AUTOMATED Routine 08/25/2022 9:07 AM EDT CBC (WITH DIFF) Routine 08/25/2022 9:07 AM EDT PHOSPHORUS Routine 08/25/2022 9:07 AM EDT MAGNESIUM Routine 08/25/2022 9:07 AM EDT BASIC METABOLIC PANEL Routine 08/25/2022 9:07 AM EDT HEMOGRAM Routine 08/24/2022 1:00 AM EDT DIFFERENTIAL, AUTOMATED Routine 08/24/2022 1:00 AM EDT CBC (WITH DIFF) Routine 08/24/2022 1:00 AM EDT PHOSPHORUS Routine 08/24/2022 1:00 AM EDT MAGNESIUM Routine 08/24/2022 1:00 AM EDT BASIC METABOLIC PANEL Routine 08/24/2022 1:00 AM EDT BASIC METABOLIC PANEL Routine 08/23/2022 1:30 PM EDT HEMOGRAM Routine 08/23/2022 12:52 AM EDT DIFFERENTIAL, AUTOMATED Routine 08/23/2022 12:52 AM EDT CBC (WITH DIFF) Routine 08/23/2022 12:52 AM EDT PHOSPHORUS Routine 08/23/2022 12:52 AM EDT MAGNESIUM Routine 08/23/2022 12:52 AM EDT BASIC METABOLIC PANEL Routine 08/23/2022 12:52 AM EDT XR ABDOMEN 1 VIEW STAT 08/22/2022 6:4 2 PM EDT XR CHEST ONE VIEW STAT 08/22/2022 5:1 3 PM EDT XR ABDOMEN 1 VIEW STAT 08/22/2022 3:4 6 PM EDT VITAMIN B12 STAT 08/22/2022 12:15 PM EDT XR ABDOMEN 1 VIEW STAT 08/22/2022 10: 20 AM EDT EKG 12-LEAD STAT 08/22/2022 7:53 AM EDT Osteoradionecrosis of jaw HEMOGRAM Routine 08/22/2022 1:10 AM EDT DIFFERENTIAL, AUTOMATED Routine 08/22/2022 1:10 AM EDT CBC (WITH DIFF) Routine 08/22/2022 1:10 AM EDT PHOSPHORUS Routine 08/22/2022 1:10 AM EDT MAGNESIUM Routine 08/22/2022 1:10 AM EDT BASIC METABOLIC PANEL Routine 08/22/2022 1:10 AM EDT POCT GLUCOSE Routine 08/21/2022 8:37 PM EDT ADJ.TISSUE TRANSFER, REARRANGEMENT, 10SQ.CM OR LESS, NECK Routine 08/21/2022 7:35 PM EDT H/O tongue cancer Osteoradionecrosis of jaw SPLIT THICK SKIN GRAFT,100 SQ CM OR LESS, LEGS Routine 08/21/2022 7:35 PM EDT H/O tongue cancer Osteoradionecrosis of jaw RECONSTRUCT MANDIBLE, EXTRAORAL, W/ TRANSOSTEAL BONE PLATE Routine 08/21/2022 7:34 PM EDT H/O tongue cancer Osteoradionecrosis of jaw BLOOD GAS ARTERIAL POC Routine 5:24 PM EDT SPECIMEN TO PATHOLOGY Routine 08/21/2022 2:13 PM EDT SPECIMEN TO PATHOLOGY Routine 08/21/2022 2:13 PM EDT CERV LYMPHADENOPATHY, MOD RAD NECK DISSECT, JANA, ROBOT Routine 08/21/2022 1:58 PM EDT H/O tongue cancer Osteoradionecrosis of jaw BLOOD GAS ARTERIAL POC Routine 1:27 PM EDT BLOOD GAS ARTERIAL POC Routine 10:51 AM EDT SPECIMEN TO PATHOLOGY Routine 08/21/2022 10:30 AM EDT SURGICAL PATHOLOGY REPORT Routine 08/21/2022 10:26 AM EDT SPECIMEN TO PATHOLOGY Routine 08/21/2022 10:26 AM EDT Adj Tiss Transfer Head, Fac, Hand <10Sqcm ([id number]) Yes 08/21/2022 8:08 AM EDT H/O tongue cancer Osteoradionecrosis of jaw Split Grft Trunk, Arm, Leg <100Sqcm ([id number]) Yes 08/21/2022 8:08 AM EDT H/O tongue cancer Osteoradionecrosis of jaw Reconstr Mandible, Bone Plate ([id number]) Yes 08/21/2022 8:08 AM EDT H/O tongue cancer Osteoradionecrosis of jaw Bone-Skin Graft, Microvascular ([id number]) Yes 08/21/2022 8:08 AM EDT H/O tongue cancer Osteoradionecrosis of jaw Impression & Preparation Mandibular Resection Prosthesis ([id number]) Yes 08/21/2022 8:08 AM EDT H/O tongue cancer Osteoradionecrosis of jaw Reconstr Jaw, Full, Endo Implnt ([id number]) Yes 08/21/2022 8:08 AM EDT H/O tongue cancer Osteoradionecrosis of jaw Tracheostomy, Planned ([id number]) Yes 08/21/2022 8:08 AM EDT H/O tongue cancer Osteoradionecrosis of jaw Cervical Lymphadectomy Modified Radical Neck Dissection ([id number]) Yes 08/21/2022 8:08 AM EDT H/O tongue cancer Osteoradionecrosis of jaw Excision Of Bone, Lower Jaw ([id number]) Yes 08/21/2022 8:08 AM EDT H/O tongue cancer Osteoradionecrosis of jaw IMPRESSION AND CUSTOM PREPARATION,MANDIBULAR RESECTION PROSTHESIS Routine 08/21/2022 6:16 AM EDT H/O tongue cancer Osteoradionecrosis of jaw TRACHEOSTOMY,PLANNED Routine 08/21/2022 6:16 AM EDT H/O tongue cancer Osteoradionecrosis of jaw RECONSTRUCT MANDIBLE OR MAXILLA, ENDOSTEAL IMPLANT, COMPLETE Routine 08/21/2022 6:16 AM EDT H/O tongue cancer Osteoradionecrosis of jaw EXCISION BONE, MANDIBLE Routine 08/21/2022 6:16 AM EDT H/O tongue cancer Osteoradionecrosis of jaw FLAP, FREE OSTEOCUTANEOUS W MICROVASC, FIBULA Routine 08/21/2022 6:16 AM EDT H/O tongue cancer Osteoradionecrosis of jaw IMPLANTABLE DEVICES SCAN 08/21/2022 12:00 AM EDT documented in this encounter Results * XR Chest One View (09/07/2022 3:19 PM EDT) Anatomical Region Laterality Modality Chest N/A Digital Radiogra phy Impressions 09/07/2022 4:26 PM EDT No pneumothorax, pleural effusion or other acute/focal pulmonary process. Thank you for letting us participate in the care of this patient. ??If you are a health care provider and have any questions regarding this report, please contact the number below. ??For patients who have questions please contact the health director critical care that requested your imaging first. ? Electronically signed by: Thong Lee MD, [facility] ([phone]), at 09/07/2022 4:26 PM Narrative 09/07/2022 4:26 PM EDT EXAMINATION: XR CHEST ONE VIEW CLINICAL HISTORY: new dsypnea following coughing fit TECHNIQUE: 1 view of the chest COMPARISON: 08/30/2022 FINDINGS: Interval removal of the tracheostomy, enteric tube. Interval placement of a right upper extremity PICC with the distal tip at the superior cavoatrial junction. Multiple surgical clips again seen in the neck and left supra clavicular fossa. Lungs are well expanded. No airspace consolidation or focal lesion. There is no pleural effusion or pneumothorax. Cardiac and mediastinal contours are normal. No central pulmonary vascular congestion or interstitial edema. Bones unremarkable. Procedure Note Thnog Lee MD - 09/07/2022 EXAMINATION: XR CHEST ONE VIEW CLINICAL HISTORY: new dsypnea following coughing fit TECHNIQUE: 1 view of the chest COMPARISON: 08/30/2022 FINDINGS: Interval removal of the tracheostomy, enteric tube. Interval placement ofa right upper extremity PICC with the distal tip at the superiorcavoatrial junction. Multiple surgical clips again seen in the neck and left supra clavicular fossa. Lungs are well expanded. No airspace consolidation or focal lesion. Thereis no pleural effusion or pneumothorax. Cardiac and mediastinal contours are normal. No central pulmonaryvascular congestion or interstitial edema. Bones unremarkable. IMPRESSION No pneumothorax, pleural effusion or other acute/focal pulmonaryprocess. Thank you for letting us participate in the care of this patient. If youare a health care provider and have any questions regarding this report,please contact the number below. For patients who have questions please contactthe health director critical care that requested your imaging first. Roberth Lee MD IMG DX ORDERABLES * EKG 12 Lead (09/07/2022 12:42 PM EDT) Ventricular rate 63 BPM MUSE SYSTEM Atrial Rate 63 BPM MUSE SYSTEM P-R Interval 118 ms MUSE SYSTEM QRS Duration 74 ms MUSE SYSTEM Q-T Interval 400 ms MUSE SYSTEM QTC Calculated (Bezet) 409 ms MUSE SYSTEM Calculated P [place] 76 degrees MUSE SYSTEM Calculated R [place] 5 degrees MUSE SYSTEM Calculated T [place] 57 degrees MUSE SYSTEM INTERPRETATION Normal sinus rhythm with sinus arrhythmia Nonspecific T wave abnormality Abnormal ECG When compared with ECG of 30-AUG-2022 08:32, Questionable change in QRS axis Confirmed by MD NINI, RUBIO ([id number]) on 09/07/2022 2:31:42 PM MUSE SYSTEM 09/07/2022 12:4 2 PM EDT 09/07/2022 2:31 PM EDT Roberth Lee MD ECG ORDERABLES MUSE SYSTEM * (ABNORMAL) Differential, Automated (09/07/2022 12:30 AM EDT) Pathologist [facility] [place] Neutrophil % 79.3 % [facility] Neutrophil Absolute 5.40 1.70 - 6.10 x10(3)/mc L [facility] Lymph % 11.5 % [facility] Lymphocytes Abs 0.8(L) 0.9 - 3.2 x10(3)/mc L [facility] Monocyte % 5.3 % [facility] Monocyte Abs 0.4 0.3 - 0.9 x10(3)/mc L [facility] Eos % 2.9 % [facility] Eosinophils Abs 0.2 0.0 - 0.4 x10(3)/mc L [facility] Basophil % 0.6 % [facility] Baso Absolute 0.0 0.0 - 0.1 x10(3)/mc L [facility] Immature Gran % 0.40 % [facility] Comment: Immature granulocytes(IG's)percentage and absolute count will include metamyelocytes, myelocytes, and promyelocytes. Blood smears from CBCs yielding IG's will be scanned manually for concordance. If this scan disagrees with the automated IG or if promyelocytes are noted, a manual differential will be performed. Immature Gran Absolute 0.03 0.00 - 0.04 x10(3)/mc L [facility] Blood 09/07/2022 12:3 0 AM EDT 09/07/2022 12:40 AM EDT Narrative Resulting Agency Comment Spec In Lab Toño Pacheco MD HEMATOLOGY ORDERABLE S [facility] [place] [address] * (ABNORMAL) Hemogram (09/07/2022 12:30 AM EDT) White Blood Cell 6.8 4.0 - 9.5 x10(3)/[facility] Red Blood Cell 2.77(L) 4.00 - 5.21 x10(6)/ L [facility] Hemoglobin 8.9(L) 11.7 - 15.5 g/dL [facility] Hematocrit 27.0(L) 35.7 - 45.8 % [facility] Mean Cell Volume 97.5(H) 82.6 - 94.4 fL [facility] Mean Cell Hemoglobin 32.1(H) 27.1 - 32.0 pg [facility] Mean Cell Hemoglobin Concentration 33.0 31.7 - 35.0 g/dL [facility] Platelet 555(H) 145 - 357 x10(3)/mc L [facility] [facility] RDW Standard Deviation 43.2 37.0 - 46.0 fL [facility] RDW coefficient of variation 12.2 11.5 - 14.1 % [facility] Mean Platelet Volume 8.7 7.6 - 12.9 fL [facility] NRBC% auto 0.0 % [facility] NRBC Absolute 0.000 0.000 - 0.000 x10(3)/ L [facility] Blood 09/07/2022 12:3 0 AM EDT 09/07/2022 12:40 AM EDT Narrative Resulting Agency Comment Spec In Lab Toño Pacheco MD HEMATOLOGY ORDERABLE S Performing Organization Address City/[facility]/ZIP Co de Phone Number [facility] [place] [address] * (ABNORMAL) Basic Metabolic Panel (non-fasting) (09/07/2022 12:30 AM EDT) Glucose 88 65 - 199 mg/dL [facility] Comment:Diabetes: >=200 mg/d L plus symptoms Blood Urea Nitrogen 23(H) 8 - 18 mg/dL [facility] Creatinine 0.55(L) 0.70 - 1.20 mg/dL [facility] Sodium 140 135 - 145 mmol/L [facility] Potassium 4.6 3.5 - 5.0 mmol/L [facility] Comment: Please note: ??Patients with WBC >100,000 may have falsely elevated Potassium levels. ??For accurate Potassium quantification in these patients send serum separator tube (gold top) for subsequent determinations. ??Contact the Clinical Chemistry Laboratory if there are any questions. Chloride 103 98 - 107 mmol/L [facility] Carbon Dioxide 29 22 - 31 mmol/L [facility] Anion Gap 8 5 - 15 mmol/L [facility] Calcium 9.4 8.5 - 10.5 mg/dL [facility] Est Glomerular Filtration Rate 111 >=60 mL/min/1. 73 m?? [facility] Comment: This patient's estimated GFR was calculated using the 2020 CKD-EPI equation. The estimated GFR can vary from the measured GFR by up to 30% in the absence of rapidly changing kidney function. Assessment of the estimated GFR is not appropriate when creatinine concentrations are rapidly changing. For clinical situations in which a more precise estimate of GFR is necessary, consider alternative methods of GFR estimation such as a 24-hour urine creatinine clearance. Assignment of CKD stage 1-5 for patients with an eGFR near the transition point between stages may be based on clinical assessment of muscle mass and symptoms in addition to eGFR. Blood 09/07/2022 12:3 0 AM EDT 09/07/2022 12:40 AM EDT Narrative Resulting Agency Comment Spec In Lab Roberth Lee MD CHEMISTRY ORDERABL ES [facility] [place] [address] * Phosphorus (09/07/2022 12:30 AM EDT) Phosphorus 4.3 2.5 - 4.5 mg/dL [facility] Blood 09/07/2022 12:3 0 AM EDT 09/07/2022 12:40 AM EDT Narrative Resulting Agency Comment Spec In Lab Roberth Lee MD CHEMISTRY ORDERABL ES Performing Organization Address City/[facility]/ZIP Co de Phone Number [facility] [place] [address] * Magnesium (09/07/2022 12:30 AM EDT) [facility] Magnesium 0.94 0.69 - 1.07 mmol/L [facility] Blood 09/07/2022 12:3 0 AM EDT 09/07/2022 12:40 AM EDT Narrative Resulting Agency Comment Spec In Lab Roberth Lee MD CHEMISTRY ORDERABL ES Performing Organization Address City/[facility] de Phone Number [facility] [place] [address] * (ABNORMAL) Differential, Automated (09/06/2022 4:03 AM EDT) [facility] Neutrophil % 74.5 % [facility] Neutrophil Absolute 4.54 1.70 - 6.10 x10(3)/mc L [facility] Lymph % 12.8 % [facility] Lymphocytes Abs 0.8(L) 0.9 - 3.2 x10(3)/mc L [facility] Monocyte % 8.2 % [facility] Monocyte Abs 0.5 0.3 - 0.9 x10(3)/mc L [facility] Eos % 3.0 % [facility] Eosinophils Abs 0.2 0.0 - 0.4 x10(3)/mc L [facility] Basophil % 0.8 % [facility] Baso Absolute 0.0 0.0 - 0.1 x10(3)/mc L [facility] Immature Gran % 0.70 % [facility] Comment: Immature granulocytes(IG's)percentage and absolute count will include metamyelocytes, myelocytes, and promyelocytes. Blood smears from CBCs yielding IG's will be scanned manually for concordance. If this scan disagrees with the automated IG or if promyelocytes are noted, a manual differential will be performed. Immature Gran Absolute 0.04 0.00 - 0.04 x10(3)/mc L [facility] Blood 09/06/2022 4:03 AM EDT 09/06/2022 4:13 AM EDT Narrative Resulting Agency Comment Spec In Lab Toño Pacheco MD HEMATOLOGY ORDERABLE S [facility] [place] [address] * (ABNORMAL) Hemogram (09/06/2022 4:03 AM EDT) White Blood Cell 6.1 4.0 - 9.5 x10(3)/mc L [facility] Red Blood Cell 2.72(L) 4.00 - 5.21 x10(6)/mc L [facility] Hemoglobin 8.8(L) 11.7 - 15.5 g/dL [facility] Hematocrit 26.3(L) 35.7 - 45.8 % [facility] Mean Cell Volume 96.7(H) 82.6 - 94.4 fL [facility] Mean Cell Hemoglobin 32.4(H) 27.1 - 32.0 pg [facility] Mean Cell Hemoglobin Concentration 33.5 31.7 - 35.0 g/dL [facility] Platelet 593(H) 145 - 357 x10(3)/mc L [facility] RDW Standard Deviation 42.2 37.0 - 46.0 fL [facility] RDW coefficient of variation 12.3 11.5 - 14.1 % [facility] Mean Platelet Volume 8.6 7.6 - 12.9 fL [facility] NRBC% auto 0.0 % [facility] NRBC Absolute 0.000 0.000 - 0.000 x10(3)/mc L [facility] Blood 09/06/2022 4:03 AM EDT 09/06/2022 4:13 AM EDT Narrative Resulting Agency Comment Spec In Lab Toño Pacheco MD HEMATOLOGY ORDERABLE S [facility] [place] [place] [address] * (ABNORMAL) Basic Metabolic Panel (non-fasting) (09/06/2022 4:03 AM EDT) Glucose 74 65 - 199 mg/dL [facility] Comment:Diabetes: >=200 mg/d L plus symptoms Blood Urea Nitrogen 20(H) 8 - 18 mg/dL [facility] Creatinine 0.47(L) 0.70 - 1.20 mg/dL [facility] Sodium 139 135 - 145 mmol/L [facility] Potassium 4.2 3.5 - 5.0 mmol/L [facility] Comment: Please note: ??Patients with WBC >100,000 may have falsely elevated Potassium levels. ??For accurate Potassium quantification in these patients send serum separator tube (gold top) for subsequent determinations. ??Contact the Clinical Chemistry Laboratory if there are any questions. Chloride 103 98 - 107 mmol/L [facility] Carbon Dioxide 26 22 - 31 mmol/L [facility] Anion Gap 10 5 - 15 mmol/L [facility] Calcium 9.0 8.5 - 10.5 mg/dL [facility] Est Glomerular Filtration Rate 115 >=60 mL/min/1. 73 m?? [facility] Comment: This patient's estimated GFR was calculated using the 2020 CKD-EPI equation. The estimated GFR can vary from the measured GFR by up to 30% in the absence of rapidly changing kidney function. Assessment of the estimated GFR is not appropriate when creatinine concentrations are rapidly changing. For clinical situations in which a more precise estimate of GFR is necessary, consider alternative methods of GFR estimation such as a 24-hour urine creatinine clearance. Assignment of CKD stage 1-5 for patients with an eGFR near the transition point between stages may be based on clinical assessment of muscle mass and symptoms in addition to eGFR. Blood 09/06/2022 4:03 AM EDT 09/06/2022 4:13 AM EDT Narrative Resulting Agency Comment Spec In Lab Roberth Lee MD CHEMISTRY ORDERABL ES Performing Organization Address City/[facility] Co de Phone Number [facility] [place] [address] * Phosphorus (09/06/2022 4:03 AM EDT) Phosphorus 3.8 2.5 - 4.5 mg/dL [facility] Blood 09/06/2022 4:03 AM EDT 09/06/2022 4:13 AM EDT Narrative Resulting Agency Comment Spec In Lab Roberth Lee MD CHEMISTRY ORDERABL ES Performing Organization Address [facility] Co de Phone Number [facility] [place] [address] * Magnesium (09/06/2022 4:03 AM EDT) Magnesium 0.99 0.69 - 1.07 mmol/L [facility] Blood 09/06/2022 4:03 AM EDT 09/06/2022 4:13 AM EDT Narrative Resulting Agency Comment Spec In Lab Roberth Lee MD CHEMISTRY ORDERABL ES Performing Organization Address [facility] de Phone Number [facility] [place] [address] * IR G-Tube Placement (09/05/2022 12:12 PM EDT) Anatomical Region Laterality Modality Chest X-Ray Angiograph y Narrative 09/05/2022 1:14 PM EDT Table formatting from the original result was not included. Images from the original result were not included. IR PROCEDURE NOTE Procedure: Gastrostomy tube placement. Indication for Procedure: Per Princess ALAMO, Theresa Hollis is a 52 y.o. female with PMH of SCCa of the left lateral tongue who presents to Interventional Radiology to undergo gastrostomy tube placement with anesthesia support. Patient is s/p hemiglossectomy, left neck dissection 1-5, skin graft, allograft (10/31/06) followed by adjuvant chemo XRT now presenting with ORN of the mandible. She underwent tracheostomy, neck exploration, mandible excision, and fibula free flap reconstruction 08/21 with ENT and PRS. Patient previously had a G-tube (~2006, not at ) and is reportedly worked well for her, so expressed desire for replacement, as she does not believe she can meet her nutritional demands with PO intake alone. Given above, primary team consulted IR for gastrostomy tube placement. She is currently AVSS, with trach airway device in place. Per primary team, patient is consentable. Procedure events and findings: ??Patient was positioned supine on the procedure table under Anesthesia. Prophylactic antibiotic was administered. ??The epigastrium was prepared in sterile fashion after U/S to determine the left lateral and caudal extent of the liver. ??Maximum sterile barrier technique was used throughout. ??A 4 [place] glide catheter was placed as a nasoenteric tube under fluoroscopy with the aid of a Glidewire. ??Catheter was used for insufflation of the stomach. The skin over the stomach was infiltrated with 1% lidocaine for local anesthesia. ??An 18 ga needle was advanced under fluoroscopic guidance into the stomach with return of air and contrast injection showing gastric folds. ??A T anchor was deployed. ??Two additional T anchors were placed in the same manner. ??In the triangle formed by the T anchors, an 18ga needle was directed into the gastric lumen, confirmed with aspiration and contrast injection. ?? Over an 0.035? guidewire, the tract was dilated with an 8mm balloon catheter. ??A 16 [place] balloon retained gastrostomy tube was placed. ??The retention balloon of the gastrostomy tube was filled with 5 cc of sterile water and contrast injection via the gastrostomy tube confirmed location within the gastric lumen. Medications: 1% Lidocaine <10ccs subcutaneous, glucagon 1 mg IV, and as per Anesthesia. ?Antibiotic Prophylaxis: Ancef 2 grams IV. Est Blood Loss: <5cc. Complications: ??No immediate. Impression: 1. ??Placement of 16Fr balloon retained gastrostomy tube, ready for use. 2. ??Gastric retention T anchors to be released in 7-10 days. Resident/Fellow: ??None. Attending: Dr. Melody Romano performed this procedure. ?? Roberth Lee MD IMG IR ORDERABLES * (ABNORMAL) Differential, Automated (09/05/2022 2:45 AM EDT) Neutrophil % 79.0 % [facility] Neutrophil Absolute 7.18(H) 1.70 - 6.10 x10(3)/mc L [facility] Lymph % 10.8 % [facility] Lymphocytes Abs 1.0 0.9 - 3.2 x10(3)/mc L [facility] Monocyte % 7.1 % [facility] Monocyte Abs 0.6 0.3 - 0.9 x10(3)/mc L [facility] Eos % 1.8 % [facility] Eosinophils Abs 0.2 0.0 - 0.4 x10(3)/ L [facility] Basophil % 0.7 % [facility] Baso Absolute 0.1 0.0 - 0.1 x10(3)/ L [facility] Immature Gran % 0.60 % [facility] Comment: Immature granulocytes(IG's)percentage and absolute count will include metamyelocytes, myelocytes, and promyelocytes. Blood smears from CBCs yielding IG's will be scanned manually for concordance. If this scan disagrees with the automated IG or if promyelocytes are noted, a manual differential will be performed. Immature Gran Absolute 0.05(H) 0.00 - 0.04 x10(3)/mc L [facility] Blood 09/05/2022 2:45 AM EDT 09/05/2022 2:53 AM EDT Narrative Resulting Agency Comment Spec In Lab Toño Pacheco MD HEMATOLOGY ORDERABLE S [facility] [place] [address] * (ABNORMAL) Hemogram (09/05/2022 2:45 AM EDT) White Blood Cell 9.1 4.0 - 9.5 x10(3)/mc L [facility] Red Blood Cell 2.92(L) 4.00 - 5.21 x10(6)/mc L [facility] Hemoglobin 9.7(L) 11.7 - 15.5 g/dL [facility] Hematocrit 28.0(L) 35.7 - 45.8 % [facility] Mean Cell Volume 95.9(H) 82.6 - 94.4 fL [facility] Mean Cell Hemoglobin 33.2(H) 27.1 - 32.0 pg [facility] Mean Cell Hemoglobin Concentration 34.6 31.7 - 35.0 g/dL [facility] Platelet 655(H) 145 - 357 x10(3)/mc L [facility] RDW Standard Deviation 41.6 37.0 - 46.0 fL [facility] RDW coefficient of variation 12.2 11.5 - 14.1 % [facility] Mean Platelet Volume 8.5 7.6 - 12.9 fL [facility] NRBC% auto 0.0 % [facility] NRBC Absolute 0.000 0.000 - 0.000 x10(3)/ L [facility] Blood 09/05/2022 2:45 AM EDT 09/05/2022 2:53 AM EDT Narrative Resulting Agency Comment Spec In Lab Toño Pacheco MD HEMATOLOGY ORDERABLE S Performing Organization Address City/State/[facility] Co de Phone Number [facility] [place] [address] * (ABNORMAL) Basic Metabolic Panel (non-fasting) (09/05/2022 2:45 AM EDT) Glucose 98 65 - 199 mg/dL [facility] Comment:Diabetes: >=200 mg/d L plus symptoms Blood Urea Nitrogen 20(H) 8 - 18 mg/dL [facility] Creatinine 0.48(L) 0.70 - 1.20 mg/dL [facility] Sodium 138 135 - 145 mmol/L [facility] Potassium 4.4 3.5 - 5.0 mmol/L [facility] Comment: Please note: ??Patients with WBC >100,000 may have falsely elevated Potassium levels. ??For accurate Potassium quantification in these patients send serum separator tube (gold top) for subsequent determinations. ??Contact the Clinical Chemistry Laboratory if there are any questions. Chloride 101 98 - 107 mmol/L [facility] Carbon Dioxide 28 22 - 31 mmol/L [facility] Anion Gap 9 5 - 15 mmol/L [facility] Calcium 9.3 8.5 - 10.5 mg/dL [facility] Est Glomerular Filtration Rate 115 >=60 mL/min/1. 73 m?? [facility] Comment: This patient's estimated GFR was calculated using the 2020 CKD-EPI equation. The estimated GFR can vary from the measured GFR by up to 30% in the absence of rapidly changing kidney function. Assessment of the estimated GFR is not appropriate when creatinine concentrations are rapidly changing. For clinical situations in which a more precise estimate of GFR is necessary, consider alternative methods of GFR estimation such as a 24-hour urine creatinine clearance. Assignment of CKD stage 1-5 for patients with an eGFR near the transition point between stages may be based on clinical assessment of muscle mass and symptoms in addition to eGFR. Blood 09/05/2022 2:45 AM EDT 09/05/2022 2:53 AM EDT Narrative Resulting Agency Comment Spec In Lab Roberth Lee MD CHEMISTRY ORDERABL ES Performing Organization Address City/[facility] Co de Phone Number [facility] [place] [address] * Phosphorus (09/05/2022 2:45 AM EDT) Phosphorus 3.9 2.5 - 4.5 mg/dL [facility] Blood 09/05/2022 2:45 AM EDT 09/05/2022 2:53 AM EDT Narrative Resulting Agency Comment Spec In Lab Roberth Lee MD CHEMISTRY ORDERABL ES Performing Organization Address [facility]/ZIP Co de Phone Number [facility] [place] [address] * Magnesium (09/05/2022 2:45 AM EDT) Magnesium 1.01 0.69 - 1.07 mmol/L [facility] Blood 09/05/2022 2:45 AM EDT 09/05/2022 2:53 AM EDT Narrative Resulting Agency Comment Spec In Lab Roberth Lee MD CHEMISTRY ORDERABL ES Performing Organization Address City/[facility]/[place] [address] * (ABNORMAL) Differential, Automated (09/04/2022 12:25 AM EDT) Neutrophil % 79.6 % [facility] Neutrophil Absolute 6.60(H) 1.70 - 6.10 x10(3)/mc L [facility] Lymph % 10.3 % [facility] Lymphocytes Abs 0.8(L) 0.9 - 3.2 x10(3)/mc L [facility] Monocyte % 7.0 % [facility] Monocyte Abs 0.6 0.3 - 0.9 x10(3)/mc L [facility] Eos % 1.9 % [facility] Eosinophils Abs 0.2 0.0 - 0.4 x10(3)/mc L [facility] Basophil % 0.5 % [facility] Baso Absolute 0.0 0.0 - 0.1 x10(3)/mc L [facility] Immature Gran % 0.70 % [facility] Comment: Immature granulocytes(IG's)percentage and absolute count will include metamyelocytes, myelocytes, and promyelocytes. Blood smears from CBCs yielding IG's will be scanned manually for concordance. If this scan disagrees with the automated IG or if promyelocytes are noted, a manual differential will be performed. Immature Gran Absolute 0.06(H) 0.00 - 0.04 x10(3)/mc L [facility] Blood 09/04/2022 12:2 5 AM EDT 09/04/2022 12:36 AM EDT Narrative Resulting Agency Comment Spec In Lab Toño Pacheco MD HEMATOLOGY ORDERABLE S Performing Organization Address City/[facility]/[place] [address] * (ABNORMAL) Hemogram (09/04/2022 12:25 AM EDT) White Blood Cell 8.3 4.0 - 9.5 x10(3)/mc L [facility] Red Blood Cell 2.80(L) 4.00 - 5.21 x10(6)/mc L [facility] Hemoglobin 9.1(L) 11.7 - 15.5 g/dL [facility] Hematocrit 26.8(L) 35.7 - 45.8 % [facility] Mean Cell Volume 95.7(H) 82.6 - 94.4 fL [facility] Mean Cell Hemoglobin 32.5(H) 27.1 - 32.0 pg [facility] Mean Cell Hemoglobin Concentration 34.0 31.7 - 35.0 g/dL [facility] Platelet 624(H) 145 - 357 x10(3)/mc L [facility] RDW Standard Deviation 40.8 37.0 - 46.0 fL [facility] RDW coefficient of variation 11.9 11.5 - 14.1 % [facility] Mean Platelet Volume 8.7 7.6 - 12.9 fL [facility] NRBC% auto 0.0 % [facility] NRBC Absolute 0.000 0.000 - 0.000 x10(3)/ L [facility] Blood 09/04/2022 12:2 5 AM EDT 09/04/2022 12:36 AM EDT Narrative Resulting Agency Comment Spec In Lab Toño Pacheco MD HEMATOLOGY ORDERABLE S Performing Organization Address City/State/[facility] Co de Phone Number [facility] [place] [address] * (ABNORMAL) Basic Metabolic Panel (non-fasting) (09/04/2022 12:25 AM EDT) Glucose 98 65 - 199 mg/dL [facility] Comment:Diabetes: >=200 mg/d L plus symptoms Blood Urea Nitrogen 19(H) 8 - 18 mg/dL [facility] Creatinine 0.45(L) 0.70 - 1.20 mg/dL [facility] Sodium 136 135 - 145 mmol/L [facility] Potassium 3.8 3.5 - 5.0 mmol/L [facility] Comment: Please note: ??Patients with WBC >100,000 may have falsely elevated Potassium levels. ??For accurate Potassium quantification in these patients send serum separator tube (gold top) for subsequent determinations. ??Contact the Clinical Chemistry Laboratory if there are any questions. Chloride 100 98 - 107 mmol/L [facility] Carbon Dioxide 27 22 - 31 mmol/L [facility] Anion Gap 9 5 - 15 mmol/L [facility] Calcium 8.8 8.5 - 10.5 mg/dL [facility] Est Glomerular Filtration Rate 116 >=60 mL/min/1. 73 m?? [facility] Comment: This patient's estimated GFR was calculated using the 2020 CKD-EPI equation. The estimated GFR can vary from the measured GFR by up to 30% in the absence of rapidly changing kidney function. Assessment of the estimated GFR is not appropriate when creatinine concentrations are rapidly changing. For clinical situations in which a more precise estimate of GFR is necessary, consider alternative methods of GFR estimation such as a 24-hour urine creatinine clearance. Assignment of CKD stage 1-5 for patients with an eGFR near the transition point between stages may be based on clinical assessment of muscle mass and symptoms in addition to eGFR. Blood 09/04/2022 12:2 5 AM EDT 09/04/2022 12:36 AM EDT Narrative Resulting Agency Comment Spec In Lab Roberth Lee MD CHEMISTRY ORDERABL ES Performing Organization Address City/[facility]/ZIP Co de Phone Number [facility] [place] [address] * Phosphorus (09/04/2022 12:25 AM EDT) Phosphorus 3.8 2.5 - 4.5 mg/dL [facility] Blood 09/04/2022 12:2 5 AM EDT 09/04/2022 12:36 AM EDT Narrative Resulting Agency Comment Spec In Lab Roberth Lee MD CHEMISTRY ORDERABL ES [facility] [place] [address] * Magnesium (09/04/2022 12:25 AM EDT) Magnesium 1.00 0.69 - 1.07 mmol/L [facility] Blood 09/04/2022 12:2 5 AM EDT 09/04/2022 12:36 AM EDT Narrative Resulting Agency Comment Spec In Lab Roberth Lee MD CHEMISTRY ORDERABL ES [facility] [place] [address] * (ABNORMAL) Differential, Automated (09/03/2022 2:00 AM EDT) Neutrophil % 79.8 % [facility] Neutrophil Absolute 6.58(H) 1.70 - 6.10 x10(3)/mc L [facility] Lymph % 9.1 % [facility] Lymphocytes Abs 0.8(L) 0.9 - 3.2 x10(3)/mc L [facility] Monocyte % 8.3 % [facility] Monocyte Abs 0.7 0.3 - 0.9 x10(3)/mc L [facility] Eos % 1.2 % [facility] Eosinophils Abs 0.1 0.0 - 0.4 x10(3)/mc L [facility] Basophil % 0.6 % [facility] Baso Absolute 0.0 0.0 - 0.1 x10(3)/mc L [facility] Immature Gran % 1.00 % [facility] Comment: Immature granulocytes(IG's)percentage and absolute count will include metamyelocytes, myelocytes, and promyelocytes. Blood smears from CBCs yielding IG's will be scanned manually for concordance. If this scan disagrees with the automated IG or if promyelocytes are noted, a manual differential will be performed. Immature Gran Absolute 0.08(H) 0.00 - 0.04 x10(3)/mc L [facility] Blood 09/03/2022 2:00 AM EDT 09/03/2022 2:09 AM EDT Narrative Resulting Agency Comment Spec In Lab Toño Pacheco MD HEMATOLOGY ORDERABLE S [facility] [place] [address] * (ABNORMAL) Hemogram (09/03/2022 2:00 AM EDT) White Blood Cell 8.2 4.0 - 9.5 x10(3)/mc L [facility] Red Blood Cell 3.07(L) 4.00 - 5.21 x10(6)/mc L [facility] Hemoglobin 9.8(L) 11.7 - 15.5 g/dL [facility] Hematocrit 29.4(L) 35.7 - 45.8 % [facility] Mean Cell Volume 95.8(H) 82.6 - 94.4 fL [facility] Mean Cell Hemoglobin 31.9 27.1 - 32.0 pg [facility] Mean Cell Hemoglobin Concentration 33.3 31.7 - 35.0 g/dL [facility] Platelet 657(H) 145 - 357 x10(3)/mc L [facility] RDW Standard Deviation 40.5 37.0 - 46.0 fL [facility] RDW coefficient of variation 11.9 11.5 - 14.1 % [facility] Mean Platelet Volume 8.5 7.6 - 12.9 fL [facility] NRBC% auto 0.0 % [facility] NRBC Absolute 0.000 0.000 - 0.000 x10(3)/mc L [facility] Blood 09/03/2022 2:00 AM EDT 09/03/2022 2:09 AM EDT Narrative Resulting Agency Comment Spec In Lab Toño Pacheco MD HEMATOLOGY ORDERABLE S [facility] [place] [address] * (ABNORMAL) Basic Metabolic Panel (non-fasting) (09/03/2022 2:00 AM EDT) Glucose 85 65 - 199 mg/dL [facility] Comment:Diabetes: >=200 mg/d L plus symptoms Blood Urea Nitrogen 20(H) 8 - 18 mg/dL [facility] Creatinine 0.45(L) 0.70 - 1.20 mg/dL [facility] Sodium 137 135 - 145 mmol/L [facility] Potassium 4.2 3.5 - 5.0 mmol/L [facility] Comment: Please note: ??Patients with WBC >100,000 may have falsely elevated Potassium levels. ??For accurate Potassium quantification in these patients send serum separator tube (gold top) for subsequent determinations. ??Contact the Clinical Chemistry Laboratory if there are any questions. Chloride 98 98 - 107 mmol/L [facility] Carbon Dioxide 28 22 - 31 mmol/L [facility] Anion Gap 11 5 - 15 mmol/L [facility] Calcium 9.2 8.5 - 10.5 mg/dL [facility] Est Glomerular Filtration Rate 116 >=60 mL/min/1. 73 m?? [facility] Comment: This patient's estimated GFR was calculated using the 2020 CKD-EPI equation. The estimated GFR can vary from the measured GFR by up to 30% in the absence of rapidly changing kidney function. Assessment of the estimated GFR is not appropriate when creatinine concentrations are rapidly changing. For clinical situations in which a more precise estimate of GFR is necessary, consider alternative methods of GFR estimation such as a 24-hour urine creatinine clearance. Assignment of CKD stage 1-5 for patients with an eGFR near the transition point between stages may be based on clinical assessment of muscle mass and symptoms in addition to eGFR. Blood 09/03/2022 2:00 AM EDT 09/03/2022 2:09 AM EDT Narrative Resulting Agency Comment Spec In Lab Roberth Lee MD CHEMISTRY ORDERABL ES [facility] [place] [address] * Phosphorus (09/03/2022 2:00 AM EDT) Phosphorus 3.7 2.5 - 4.5 mg/dL [facility] Blood 09/03/2022 2:00 AM EDT 09/03/2022 2:09 AM EDT Narrative Resulting Agency Comment Spec In Lab Roberth Lee MD CHEMISTRY ORDERABL ES Performing Organization Address City/[facility] Co de Phone Number [facility] [place] [address] * Magnesium (09/03/2022 2:00 AM EDT) Magnesium 1.05 0.69 - 1.07 mmol/L [facility] Blood 09/03/2022 2:00 AM EDT 09/03/2022 2:09 AM EDT Narrative Resulting Agency Comment Spec In Lab Roberth Lee MD CHEMISTRY ORDERABL ES Performing Organization Address [facility] de Phone Number [facility] [place] [address] * Place PICC Line: Contact Vascular Access Page [phone] Extremity to exclude: No restrictions; Is PICC procedure required PRIOR to patients discharge? Yes (09/02/2022 4:31 PM EDT) Narrative Anthony Rashid RN - 09/02/2022 4:31 PM EDT Anthony Rashid RN ? 09/02/2022 ??4:33 PM PICC/Midline Insertion Procedure Note Indications: TPN This insertion was not to replace a malfunctioning catheter. This insertion was not due to a suspected line-associated infection. Location of Procedure: X-Ray Room 11 Risks and Benefits: The risks and benefits of this procedure were reviewed and informed consent was obtained obtained. Time Out: Prior to the start of the procedure, the patient's identity, intended procedure, site/side, correct patient positioning and presence of the site chinyere was confirmed as applicable. The medical history and chart were reviewed to rule out potential contraindications to the planned procedure. Hand Hygiene: The cake froster did perform hand hygiene prior to line insertion. Catheter type: PICC Lot number: [id number] Procedure Technique: Skin was prepped with chlorhexidine. Skin preparation agent was completely dry at the time of first skin puncture. The following barrier precaution methods were used:large sterile drape, maske/eye shield, large sterile gown, sterile gloves, and cap. 3 ml of 1% Lidocaine was used for skin wheal. Ultrasound was used for guidance. ??Radiographic contrast agent was not injected for vein identification. Procedure Details: Order received for catheter placement. A 4 Fr. single lumen Bard Power catheter was placed into the right basilic vein over a 0.018 inch guidewire using modified seldinger technique and fluoroscopy. Arm circumference was 22 cm at 2 cm above the insertion site. Final catheter length (with trimming): 36 cm Internal: 36 cm External: 0 cm Tip in SVC per Cleo Lee. The line was not placed over a guidewire. Post Procedure: Diagnosis: mandible fracture Blood return noted on aspiration of line after placement confirmed. 5 mls of normal saline infused free flowing to gravity via PICC after insertion. Sterile dressing applied: CHG Impregnated Tegaderm. Findings: The patient did tolerate the procedure well. No Complications. Procedure Comments: Successful picc placment Anthony Rashid RN 09/02/2022 Roberth Lee MD PROCEDURE/MINOR QUINN RGICAL ORDERABLES * XR PICC Placement Over 5 Years with Imaging Guidance (IV Team) (09/02/2022 4:21 PM EDT) Anatomical Region Laterality Modality N/A Radio Fluoroscop y Impressions 09/02/2022 5:04 PM EDT FINDINGS/IMPRESSION: Intraprocedural frontal radiograph of the mediastinum demonstrates a right-sided PICC line, with the catheter tip projected at the lower SVC, best visualized on image labeled #2. Preliminary report signed by: Nicki Beaver at 09/02/2022 4:41 PM I have personally reviewed the image(s) and the resident's interpretation and agree with the findings, Silvia Lee MD at 09/02/2022 5:04 PM Thank you for letting us participate in the care of this patient. ??If you are a health care provider and have any questions regarding this report, please contact the number below. ??For patients who have questions please contact the health director critical care that requested your imaging first. ? Electronically signed by: Silvia Lee MD, [facility] ([phone]), at 09/02/2022 5:04 PM Narrative 09/02/2022 5:04 PM EDT EXAMINATION: XR PICC PLACEMENT OVER 5 YEARS WITH IMAGING GUIDANCE (IV TEAM) CLINICAL HISTORY: Confirmation of PICC line placement TECHNIQUE: C-arm placement of PICC line. Limited view of the line tip only. Two images were taken but no adjustments to the PICC were made between the images. COMPARISON: Chest radiograph dated 08/22/2022 Procedure Note Silvia Lee MD - 09/02/2022 EXAMINATION: XR PICC PLACEMENT OVER 5 YEARS WITH IMAGING GUIDANCE (IVTEAM) CLINICAL HISTORY: Confirmation of PICC line placement TECHNIQUE: C-arm placement of PICC line. Limited view of the line tiponly. Two images were taken but no adjustments to the PICC were made between theimages. COMPARISON: Chest radiograph dated 08/22/2022 IMPRESSION FINDINGS/IMPRESSION: Intraprocedural frontal radiograph of themediastinum demonstrates a right-sided PICC line, with the catheter tip projected atthe lower SVC, best visualized on image labeled #2. Preliminary report signed by: Nicki Beaver at 09/02/2022 4:41 PM I have personally reviewed the image(s) and the resident's interpretationand agree with the findings, Silvia Lee MD at 09/02/2022 5:04 PM Thank you for letting us participate in the care of this patient. If youare a health care provider and have any questions regarding this report,please contact the number below. For patients who have questions please contactthe health director critical care that requested your imaging first. Electronically signed by: Silvia Lee MD, [facility]([phone]), at 09/02/2022 5:04 PM Roberth Lee MD IMG FLUORO ORDERAB LES * (ABNORMAL) Differential, Automated (09/02/2022 12:28 AM EDT) [facility] Signature Neutrophil % 83.7 % [facility] Neutrophil Absolute 7.16(H) 1.70 - 6.10 x10(3)/mc L [facility] Lymph % 7.0 % [facility] Lymphocytes Abs 0.6(L) 0.9 - 3.2 x10(3)/mc L [facility] Monocyte % 6.7 % [facility] Monocyte Abs 0.6 0.3 - 0.9 x10(3)/mc L [facility] Eos % 1.3 % [facility] Eosinophils Abs 0.1 0.0 - 0.4 x10(3)/mc L [facility] Basophil % 0.5 % [facility] Baso Absolute 0.0 0.0 - 0.1 x10(3)/ L [facility] Immature Gran % 0.80 % [facility] Comment: Immature granulocytes(IG's)percentage and absolute count will include metamyelocytes, myelocytes, and promyelocytes. Blood smears from CBCs yielding IG's will be scanned manually for concordance. If this scan disagrees with the automated IG or if promyelocytes are noted, a manual differential will be performed. Immature Gran Absolute 0.07(H) 0.00 - 0.04 x10(3)/ L [facility] Blood 09/02/2022 12:2 8 AM EDT 09/02/2022 12:42 AM EDT Narrative Resulting Agency Comment Spec In Lab Toño Pacheco MD HEMATOLOGY ORDERABLE S [facility] [place] [address] * (ABNORMAL) Hemogram (09/02/2022 12:28 AM EDT) White Blood Cell 8.6 4.0 - 9.5 x10(3)/mc L [facility] Red Blood Cell 2.89(L) 4.00 - 5.21 x10(6)/mc L [facility] Hemoglobin 9.4(L) 11.7 - 15.5 g/dL [facility] Hematocrit 27.7(L) 35.7 - 45.8 % [facility] Mean Cell Volume 95.8(H) 82.6 - 94.4 fL [facility] Mean Cell Hemoglobin 32.5(H) 27.1 - 32.0 pg [facility] Mean Cell Hemoglobin Concentration 33.9 31.7 - 35.0 g/dL [facility] Platelet 591(H) 145 - 357 x10(3)/mc L [facility] RDW Standard Deviation 40.4 37.0 - 46.0 fL [facility] RDW coefficient of variation 11.7 11.5 - 14.1 % [facility] Mean Platelet Volume 8.5 7.6 - 12.9 fL [facility] NRBC% auto 0.0 % [facility] NRBC Absolute 0.000 0.000 - 0.000 x10(3)/ L [facility] Blood 09/02/2022 12:2 8 AM EDT 09/02/2022 12:42 AM EDT Narrative Resulting Agency Comment Spec In Lab Toño Pacheco MD HEMATOLOGY ORDERABLE S [facility] [place] [address] * (ABNORMAL) Basic Metabolic Panel (non-fasting) (09/02/2022 12:28 AM EDT) Glucose 112 65 - 199 mg/dL [facility] Comment:Diabetes: >=200 mg/d L plus symptoms Blood Urea Nitrogen 17 8 - 18 mg/dL [facility] Creatinine 0.41(L) 0.70 - 1.20 mg/dL [facility] Sodium 130(L) 135 - 145 mmol/L [facility] Potassium 4.1 3.5 - 5.0 mmol/L [facility] Comment: Please note: ??Patients with WBC >100,000 may have falsely elevated Potassium levels. ??For accurate Potassium quantification in these patients send serum separator tube (gold top) for subsequent determinations. ??Contact the Clinical Chemistry Laboratory if there are any questions. Chloride 96(L) 98 - 107 mmol/L [facility] Carbon Dioxide 25 22 - 31 mmol/L [facility] Anion Gap 9 5 - 15 mmol/L [facility] Calcium 8.7 8.5 - 10.5 mg/dL [facility] Est Glomerular Filtration Rate 119 >=60 mL/min/1. 73 m?? [facility] Comment: This patient's estimated GFR was calculated using the 2020 CKD-EPI equation. The estimated GFR can vary from the measured GFR by up to 30% in the absence of rapidly changing kidney function. Assessment of the estimated GFR is not appropriate when creatinine concentrations are rapidly changing. For clinical situations in which a more precise estimate of GFR is necessary, consider alternative methods of GFR estimation such as a 24-hour urine creatinine clearance. Assignment of CKD stage 1-5 for patients with an eGFR near the transition point between stages may be based on clinical assessment of muscle mass and symptoms in addition to eGFR. Blood 09/02/2022 12:2 8 AM EDT 09/02/2022 12:42 AM EDT Narrative Resulting Agency Comment Spec In Lab Roberth Lee MD CHEMISTRY ORDERABL ES Performing Organization Address [facility] Co de Phone Number [facility] [place] [address] * Phosphorus (09/02/2022 12:28 AM EDT) Phosphorus 3.2 2.5 - 4.5 mg/dL [facility] Blood 09/02/2022 12:2 8 AM EDT 09/02/2022 12:42 AM EDT Narrative Resulting Agency Comment Spec In Lab Roberth Lee MD CHEMISTRY ORDERABL ES Performing Organization Address City/State/[facility] Co de Phone Number [facility] [place] [address] * Magnesium (09/02/2022 12:28 AM EDT) Magnesium 1.02 0.69 - 1.07 mmol/L [facility] Blood 09/02/2022 12:2 8 AM EDT 09/02/2022 12:42 AM EDT Narrative Resulting Agency Comment Spec In Lab Roberth Lee MD CHEMISTRY ORDERABL ES Performing Organization Address City/[facility]/ZIP Co de Phone Number [facility] [place] [address] * Lavender Tube HOLD (09/01/2022 9:45 AM EDT) Lavender Hold Sample in lab. [facility] Blood Venous Draw / Unknown 09/01/2022 9:45 AM EDT 09/01/2022 10:17 AM EDT Toño Pacheco MD HEMATOLOGY ORDERABLE S Performing Organization Address [facility]/ZIP Co de Phone Number [facility] [place] [address] * Phosphorus (09/01/2022 9:45 AM EDT) Phosphorus 2.8 2.5 - 4.5 mg/dL [facility] Blood 09/01/2022 9:45 AM EDT 09/01/2022 10:16 AM EDT Narrative Resulting Agency Comment Spec In Lab Roberth Lee MD CHEMISTRY ORDERABL ES Performing Organization Address [facility] Co de Phone Number [facility] [place] [address] * Magnesium (09/01/2022 9:45 AM EDT) Magnesium 1.00 0.69 - 1.07 mmol/L [facility] Blood 09/01/2022 9:45 AM EDT 09/01/2022 10:16 AM EDT Narrative Resulting Agency Comment Spec In Lab Roberth Lee MD CHEMISTRY ORDERABL ES Performing Organization Address [facility] Co de Phone Number [facility] [place] [address] * (ABNORMAL) Basic Metabolic Panel (non-fasting) (09/01/2022 9:45 AM EDT) Glucose 95 65 - 199 mg/dL [facility] Comment:Diabetes: >=200 mg/d L plus symptoms Blood Urea Nitrogen 19(H) 8 - 18 mg/dL [facility] Creatinine 0.42(L) 0.70 - 1.20 mg/dL [facility] Sodium 129(L) 135 - 145 mmol/L [facility] Potassium 4.3 3.5 - 5.0 mmol/L [facility] Comment: Please note: ??Patients with WBC >100,000 may have falsely elevated Potassium levels. ??For accurate Potassium quantification in these patients send serum separator tube (gold top) for subsequent determinations. ??Contact the Clinical Chemistry Laboratory if there are any questions. Chloride 92(L) 98 - 107 mmol/L [facility] Carbon Dioxide 25 22 - 31 mmol/L [facility] Anion Gap 12 5 - 15 mmol/L [facility] Calcium 9.5 8.5 - 10.5 mg/dL [facility] Est Glomerular Filtration Rate 118 >=60 mL/min/1. 73 m?? [facility] Comment: This patient's estimated GFR was calculated using the 2020 CKD-EPI equation. The estimated GFR can vary from the measured GFR by up to 30% in the absence of rapidly changing kidney function. Assessment of the estimated GFR is not appropriate when creatinine concentrations are rapidly changing. For clinical situations in which a more precise estimate of GFR is necessary, consider alternative methods of GFR estimation such as a 24-hour urine creatinine clearance. Assignment of CKD stage 1-5 for patients with an eGFR near the transition point between stages may be based on clinical assessment of muscle mass and symptoms in addition to eGFR. Blood 09/01/2022 9:45 AM EDT 09/01/2022 10:16 AM EDT Narrative Resulting Agency Comment Spec In Lab Roberth Lee MD CHEMISTRY ORDERABL ES [facility] [place] [address] * Electrolytes, urine, random (09/01/2022 9:30 AM EDT) Sodium, Urine 40 mmol/L [facility] Potassium, Urine 66 mmol/L [facility] Chloride, Urine 48 mmol/L [facility] Urine 09/01/2022 9:30 AM EDT 09/01/2022 9:44 AM EDT Narrative Resulting Agency Comment Spec In Lab Roberth Lee MD URINE ORDERABLES Performing Organization Address City/[facility] Co de Phone Number [facility] [place] [address] * T4, free (09/01/2022 12:42 AM EDT) Free T4 0.93 0.93 - 1.70 ng/dL [facility] Comment: Reference Interval (ng/dL): Females: ??First Trimester: 0.97-1.68 ??Second Trimester: 0.77-1.51 ??Third Trimester: 0.77-1.49 Blood Venous Draw / Unknown 09/01/2022 12:42 AM EDT 09/01/2022 8:47 AM EDT Narrative Resulting Agency Comment Spec In Lab Toño Pacheco MD CHEMISTRY ORDERABLES Performing Organization Address [facility] Co de Phone Number [facility] [place] [address] * (ABNORMAL) TSH Turner (09/01/2022 12:42 AM EDT) Thyroid Stimulating Hormone 18.90(H) 0.27 - 4.20 mcIU/mL [facility] Comment: Reference Interval (mcIU/mL): Females: ??First Trimester: 0.23-3.88 ??Second Trimester: 0.22-3.90 ??Third Trimester: 0.44-4.66 Blood Venous Draw / Unknown 09/01/2022 12:42 AM EDT 09/01/2022 8:47 AM EDT Narrative Resulting Agency Comment Spec In Lab Toño Pacheco MD CHEMISTRY ORDERABLES Performing Organization Address [facility] Co de Phone Number [facility] [place] [address] * (ABNORMAL) TSH (09/01/2022 12:42 AM EDT) Thyroid Stimulating Hormone 18.40(H) 0.27 - 4.20 mcIU/mL [facility] Comment: Reference Interval (mcIU/mL): Females: ??First Trimester: 0.23-3.88 ??Second Trimester: 0.22-3.90 ??Third Trimester: 0.44-4.66 Blood 09/01/2022 12:4 2 AM EDT 09/01/2022 12:52 AM EDT Narrative Resulting Agency Comment Spec In Lab Roberth Lee MD CHEMISTRY ORDERABL ES Performing Organization Address [facility] de Phone Number [facility] [place] [address] * Phosphorus (08/31/2022 4:25 PM EDT) Phosphorus 3.5 2.5 - 4.5 mg/dL [facility] Blood 08/31/2022 4:25 PM EDT 08/31/2022 4:42 PM EDT Narrative Resulting Agency Comment Spec In Lab Roberth Lee MD CHEMISTRY ORDERABL ES Performing Organization Address [facility] de Phone Number [facility] [place] [address] * Magnesium (08/31/2022 4:25 PM EDT) Magnesium 0.95 0.69 - 1.07 mmol/L [facility] Blood 08/31/2022 4:25 PM EDT 08/31/2022 4:42 PM EDT Narrative Resulting Agency Comment Spec In Lab Roberth Lee MD CHEMISTRY ORDERABL ES Performing Organization Address [facility] de Phone Number [facility] [place] [address] * (ABNORMAL) Basic Metabolic Panel (non-fasting) (08/31/2022 4:25 PM EDT) Glucose 106 65 - 199 mg/dL [facility] Comment:Diabetes: >=200 mg/d L plus symptoms Blood Urea Nitrogen 20(H) 8 - 18 mg/dL [facility] Creatinine 0.41(L) 0.70 - 1.20 mg/dL [facility] Sodium 127(L) 135 - 145 mmol/L [facility] Potassium 4.3 3.5 - 5.0 mmol/L [facility] Comment: Please note: ??Patients with WBC >100,000 may have falsely elevated Potassium levels. ??For accurate Potassium quantification in these patients send serum separator tube (gold top) for subsequent determinations. ??Contact the Clinical Chemistry Laboratory if there are any questions. Chloride 90(L) 98 - 107 mmol/L [facility] Carbon Dioxide 24 22 - 31 mmol/L [facility] Anion Gap 13 5 - 15 mmol/L [facility] Calcium 9.4 8.5 - 10.5 mg/dL [facility] Est Glomerular Filtration Rate 119 >=60 mL/min/1. 73 m?? [facility] Comment: This patient's estimated GFR was calculated using the 2020 CKD-EPI equation. The estimated GFR can vary from the measured GFR by up to 30% in the absence of rapidly changing kidney function. Assessment of the estimated GFR is not appropriate when creatinine concentrations are rapidly changing. For clinical situations in which a more precise estimate of GFR is necessary, consider alternative methods of GFR estimation such as a 24-hour urine creatinine clearance. Assignment of CKD stage 1-5 for patients with an eGFR near the transition point between stages may be based on clinical assessment of muscle mass and symptoms in addition to eGFR. Blood 08/31/2022 4:25 PM EDT 08/31/2022 4:42 PM EDT Narrative Resulting Agency Comment Spec In Lab Roberth Lee MD CHEMISTRY ORDERABL ES [facility] [place] [address] * (ABNORMAL) Differential, Automated (08/31/2022 11:37 AM EDT) Neutrophil % 85.4 % [facility] Neutrophil Absolute 7.53(H) 1.70 - 6.10 x10(3)/mc L [facility] Lymph % 6.9 % [facility] Lymphocytes Abs 0.6(L) 0.9 - 3.2 x10(3)/mc L [facility] Monocyte % 5.6 % [facility] Monocyte Abs 0.5 0.3 - 0.9 x10(3)/mc L [facility] Eos % 0.9 % [facility] Eosinophils Abs 0.1 0.0 - 0.4 x10(3)/mc L [facility] Basophil % 0.6 % [facility] Baso Absolute 0.0 0.0 - 0.1 x10(3)/mc L [facility] Immature Gran % 0.60 % [facility] Comment: Immature granulocytes(IG's)percentage and absolute count will include metamyelocytes, myelocytes, and promyelocytes. Blood smears from CBCs yielding IG's will be scanned manually for concordance. If this scan disagrees with the automated IG or if promyelocytes are noted, a manual differential will be performed. Immature Gran Absolute 0.05(H) 0.00 - 0.04 x10(3)/ L [facility] Blood 08/31/2022 11:3 7 AM EDT 08/31/2022 11:54 AM EDT Narrative Resulting Agency Comment Spec In Lab Toño Pacheco MD HEMATOLOGY ORDERABLE S [facility] [place] [address] * (ABNORMAL) Hemogram (08/31/2022 11:37 AM EDT) White Blood Cell 8.8 4.0 - 9.5 x10(3)/mc L [facility] Red Blood Cell 3.04(L) 4.00 - 5.21 x10(6)/mc L [facility] Hemoglobin 9.7(L) 11.7 - 15.5 g/dL [facility] Hematocrit 29.3(L) 35.7 - 45.8 % [facility] Mean Cell Volume 96.4(H) 82.6 - 94.4 fL [facility] Mean Cell Hemoglobin 31.9 27.1 - 32.0 pg [facility] Mean Cell Hemoglobin Concentration 33.1 31.7 - 35.0 g/dL [facility] Platelet 670(H) 145 - 357 x10(3)/mc L [facility] RDW Standard Deviation 41.2 37.0 - 46.0 fL [facility] RDW coefficient of variation 11.7 11.5 - 14.1 % [facility] Mean Platelet Volume 8.8 7.6 - 12.9 fL [facility] NRBC% auto 0.0 % [facility] NRBC Absolute 0.000 0.000 - 0.000 x10(3)/mc L [facility] Blood 08/31/2022 11:3 7 AM EDT 08/31/2022 11:54 AM EDT Narrative Resulting Agency Comment Spec In Lab Toño Pacheco MD HEMATOLOGY ORDERABLE S Performing Organization Address City/[facility]/ZIP Co de Phone Number [facility] [place] [address] * Phosphorus (08/31/2022 12:34 AM EDT) Phosphorus 3.7 2.5 - 4.5 mg/dL [facility] Blood 08/31/2022 12:3 4 AM EDT 08/31/2022 12:50 AM EDT Narrative Resulting Agency Comment Spec In Lab Roberth Lee MD CHEMISTRY ORDERABL ES Performing Organization Address City/[facility] Co de Phone Number [facility] [place] [address] * (ABNORMAL) Basic Metabolic Panel (non-fasting) (08/31/2022 12:34 AM EDT) Glucose 112 65 - 199 mg/dL [facility] Comment:Diabetes: >=200 mg/d L plus symptoms Blood Urea Nitrogen 18 8 - 18 mg/dL [facility] Creatinine 0.39(L) 0.70 - 1.20 mg/dL [facility] Sodium 128(L) 135 - 145 mmol/L [facility] Potassium 4.5 3.5 - 5.0 mmol/L [facility] Comment: Please note: ??Patients with WBC >100,000 may have falsely elevated Potassium levels. ??For accurate Potassium quantification in these patients send serum separator tube (gold top) for subsequent determinations. ??Contact the Clinical Chemistry Laboratory if there are any questions. Chloride 91(L) 98 - 107 mmol/L [facility] Carbon Dioxide 26 22 - 31 mmol/L [facility] Anion Gap 11 5 - 15 mmol/L [facility] Calcium 9.4 8.5 - 10.5 mg/dL [facility] Est Glomerular Filtration Rate 120 >=60 mL/min/1. 73 m?? [facility] Comment: This patient's estimated GFR was calculated using the 2020 CKD-EPI equation. The estimated GFR can vary from the measured GFR by up to 30% in the absence of rapidly changing kidney function. Assessment of the estimated GFR is not appropriate when creatinine concentrations are rapidly changing. For clinical situations in which a more precise estimate of GFR is necessary, consider alternative methods of GFR estimation such as a 24-hour urine creatinine clearance. Assignment of CKD stage 1-5 for patients with an eGFR near the transition point between stages may be based on clinical assessment of muscle mass and symptoms in addition to eGFR. Blood 08/31/2022 12:3 4 AM EDT 08/31/2022 12:50 AM EDT Narrative Resulting Agency Comment Spec In Lab Roberth Lee MD CHEMISTRY ORDERABL ES Performing Organization Address [facility] Co de Phone Number [facility] [place] [address] * Magnesium (08/31/2022 12:34 AM EDT) Magnesium 0.96 0.69 - 1.07 mmol/L [facility] Blood 08/31/2022 12:3 4 AM EDT 08/31/2022 12:50 AM EDT Narrative Resulting Agency Comment Spec In Lab Roberth Lee MD CHEMISTRY ORDERABL ES Performing Organization Address [facility] Co de Phone Number [facility] [place] [address] * XR Chest One View (08/30/2022 8:39 AM EDT) Anatomical Region Laterality Modality Chest N/A Digital Radiogra phy Impressions 08/30/2022 8:43 AM EDT No acute cardiopulmonary disease. Thank you for letting us participate in the care of this patient. ??If you are a health care provider and have any questions regarding this report, please contact the number below. ??For patients who have questions please contact the health director critical care that requested your imaging first. ? Electronically signed by: Dar Villanueva MD, [facility] ([phone]), at 08/30/2022 8:43 AM Narrative 08/30/2022 8:43 AM EDT EXAMINATION: XR CHEST ONE VIEW CLINICAL HISTORY: thick secretions per trach, subjective SOB TECHNIQUE: AP view of the chest COMPARISON: August 22, 2021 FINDINGS: The lungs are now clear. The previously described left basilar opacity has resolved. There is no pulmonary edema. The costophrenic angles are sharp. No pneumothorax is seen. There is a normal heart size. A tracheostomy tube is unchanged in its position. An enteric catheter reaches the fundus of the stomach. Surgical shayna and clips are present in the neck. Procedure Note Dar Villanueva MD - 08/30/2022 EXAMINATION: XR CHEST ONE VIEW CLINICAL HISTORY: thick secretions per trach, subjective SOB TECHNIQUE: AP view of the chest COMPARISON: August 22, 2021 FINDINGS: The lungs are now clear. The previously described left basilar opacityhas resolved. There is no pulmonary edema. The costophrenic angles are sharp. No pneumothorax is seen. There is anormal heart size. A tracheostomy tube is unchanged in its position. An enteric catheterreaches the fundus of the stomach. Surgical shayna and clips are present in theneck. IMPRESSION No acute cardiopulmonary disease. Thank you for letting us participate in the care of this patient. If youare a health care provider and have any questions regarding this report,please contact the number below. For patients who have questions please contactthe health director critical care that requested your imaging first. Electronically signed by: Dar Villanueva MD, [facility]([phone]), at 08/30/2022 8:43 AM Roberth Lee MD IMG DX ORDERABLES * EKG 12 Lead (08/30/2022 8:32 AM EDT) Pathologist [facility] [place] Ventricular rate 82 BPM MUSE SYSTEM Atrial Rate 82 BPM MUSE SYSTEM P-R Interval 120 ms MUSE SYSTEM QRS Duration 76 ms MUSE SYSTEM Q-T Interval 374 ms MUSE SYSTEM QTC Calculated (Bezet) 436 ms MUSE SYSTEM Calculated P [place] 77 degrees MUSE SYSTEM Calculated R [place] 68 degrees MUSE SYSTEM Calculated T [place] 60 degrees MUSE SYSTEM INTERPRETATION Normal sinus rhythm with sinus arrhythmia Normal ECG When compared with ECG of 22-AUG-2022 07:53, Questionable change in QRS axis Nonspecific T wave abnormality no longer evident in Anterolateral leads Confirmed by MD Haylee, Juan Carlos ([id number]) on 08/30/2022 1:26:03 PM MUSE SYSTEM 08/30/2022 8:32 AM EDT 08/30/2022 1:26 PM EDT Roberth Lee MD ECG ORDERABLES MUSE SYSTEM * (ABNORMAL) Differential, Automated (08/26/2022 5:39 AM EDT) Pathologist [facility] [place] Neutrophil % 77.9 % [facility] Neutrophil Absolute 4.65 1.70 - 6.10 x10(3)/mc L [facility] Lymph % 8.5 % [facility] Lymphocytes Abs 0.5(L) 0.9 - 3.2 x10(3)/mc L [facility] Monocyte % 7.9 % [facility] Monocyte Abs 0.5 0.3 - 0.9 x10(3)/mc L [facility] Eos % 4.9 % [facility] Eosinophils Abs 0.3 0.0 - 0.4 x10(3)/[facility] Basophil % 0.3 % [facility] Baso Absolute 0.0 0.0 - 0.1 x10(3)/[facility] Immature Gran % 0.50 % [facility] Comment: Immature granulocytes(IG's)percentage and absolute count will include metamyelocytes, myelocytes, and promyelocytes. Blood smears from CBCs yielding IG's will be scanned manually for concordance. If this scan disagrees with the automated IG or if promyelocytes are noted, a manual differential will be performed. Immature Gran Absolute 0.03 0.00 - 0.04 x10(3)/[facility] Blood 08/26/2022 5:39 AM EDT 08/26/2022 5:51 AM EDT Narrative Resulting Agency Comment Spec In Lab Meredith Root SPA TECHNICIAN HEMATOLOGY ORDER JUDI Performing Organization Address City/State/[facility] Co de Phone Number [facility] [place] [address] * (ABNORMAL) Hemogram (08/26/2022 5:39 AM EDT) White Blood Cell 6.0 4.0 - 9.5 x10(3)/[facility] Red Blood Cell 2.56(L) 4.00 - 5.21 x10(6)/[facility] Hemoglobin 8.4(L) 11.7 - 15.5 g/dL [facility] Hematocrit 24.4(L) 35.7 - 45.8 % [facility] Mean Cell Volume 95.3(H) 82.6 - 94.4 fL [facility] Mean Cell Hemoglobin 32.8(H) 27.1 - 32.0 pg [facility] Mean Cell Hemoglobin Concentration 34.4 31.7 - 35.0 g/dL [facility] Platelet 257 145 - 357 x10(3)/[facility] RDW Standard Deviation 41.2 37.0 - 46.0 fL [facility] RDW coefficient of variation 11.9 11.5 - 14.1 % [facility] Mean Platelet Volume 9.2 7.6 - 12.9 fL [facility] NRBC% auto 0.0 % [facility] NRBC Absolute 0.000 0.000 - 0.000 x10(3)/mc L [facility] Blood 08/26/2022 5:39 AM EDT 08/26/2022 5:51 AM EDT Narrative Resulting Agency Comment Spec In Lab Meredith Root SPA TECHNICIAN HEMATOLOGY ORDER JUDI Performing Organization Address City/[facility]/ZIP Co de Phone Number [facility] [place] [address] * Phosphorus (08/26/2022 5:39 AM EDT) Phosphorus 2.6 2.5 - 4.5 mg/dL [facility] Blood 08/26/2022 5:39 AM EDT 08/26/2022 5:51 AM EDT Narrative Resulting Agency Comment Spec In Lab Meredith Root SPA TECHNICIAN CHEMISTRY ORDERA BLES Performing Organization Address City/[facility] Co de Phone Number [facility] [place] [address] * (ABNORMAL) Basic Metabolic Panel (non-fasting) (08/26/2022 5:39 AM EDT) Glucose 100 65 - 199 mg/dL [facility] Comment:Diabetes: >=200 mg/d L plus symptoms Blood Urea Nitrogen 16 8 - 18 mg/dL [facility] Comment:result rechecked-[facility] Creatinine 0.51(L) 0.70 - 1.20 mg/dL [facility] Sodium 137 135 - 145 mmol/L [facility] Potassium 3.8 3.5 - 5.0 mmol/L [facility] Comment: Please note: ??Patients with WBC >100,000 may have falsely elevated Potassium levels. ??For accurate Potassium quantification in these patients send serum separator tube (gold top) for subsequent determinations. ??Contact the Clinical Chemistry Laboratory if there are any questions. Chloride 102 98 - 107 mmol/L [facility] Carbon Dioxide 25 22 - 31 mmol/L [facility] Anion Gap 10 5 - 15 mmol/L [facility] Calcium 8.5 8.5 - 10.5 mg/dL [facility] Est Glomerular Filtration Rate 113 >=60 mL/min/1. 73 m?? [facility] Comment: This patient's estimated GFR was calculated using the 2020 CKD-EPI equation. The estimated GFR can vary from the measured GFR by up to 30% in the absence of rapidly changing kidney function. Assessment of the estimated GFR is not appropriate when creatinine concentrations are rapidly changing. For clinical situations in which a more precise estimate of GFR is necessary, consider alternative methods of GFR estimation such as a 24-hour urine creatinine clearance. Assignment of CKD stage 1-5 for patients with an eGFR near the transition point between stages may be based on clinical assessment of muscle mass and symptoms in addition to eGFR. Blood 08/26/2022 5:39 AM EDT 08/26/2022 5:51 AM EDT Narrative Resulting Agency Comment Spec In Lab Meredith E Dk SPA TECHNICIAN CHEMISTRY ORDERA BLES Performing Organization Address [facility] Co de Phone Number [facility] [place] [address] * Magnesium (08/26/2022 5:39 AM EDT) Magnesium 0.87 0.69 - 1.07 mmol/L [facility] Blood 08/26/2022 5:39 AM EDT 08/26/2022 5:51 AM EDT Narrative Resulting Agency Comment Spec In Lab Meredith E Caialtafe SPA TECHNICIAN CHEMISTRY ORDERA BLES Performing Organization Address [facility] Co de Phone Number [facility] [place] [address] * (ABNORMAL) Differential, Automated (08/25/2022 9:07 AM EDT) Neutrophil % 85.2 % [facility] Neutrophil Absolute 5.23 1.70 - 6.10 x10(3)/mc L [facility] Lymph % 5.5 % [facility] Lymphocytes Abs 0.3(L) 0.9 - 3.2 x10(3)/mc L [facility] Monocyte % 5.7 % [facility] Monocyte Abs 0.4 0.3 - 0.9 x10(3)/ L [facility] Eos % 2.8 % [facility] Eosinophils Abs 0.2 0.0 - 0.4 x10(3)/[facility] Basophil % 0.3 % [facility] Baso Absolute 0.0 0.0 - 0.1 x10(3)/ L [facility] Immature Gran % 0.50 % [facility] Comment: Immature granulocytes(IG's)percentage and absolute count will include metamyelocytes, myelocytes, and promyelocytes. Blood smears from CBCs yielding IG's will be scanned manually for concordance. If this scan disagrees with the automated IG or if promyelocytes are noted, a manual differential will be performed. Immature Gran Absolute 0.03 0.00 - 0.04 x10(3)/ L [facility] Blood 08/25/2022 9:07 AM EDT 08/25/2022 9:26 AM EDT Narrative Resulting Agency Comment Spec In Lab Meredith Root APRN HEMATOLOGY ORDER JUDI [facility] [place] [address] * (ABNORMAL) Hemogram (08/25/2022 9:07 AM EDT) White Blood Cell 6.1 4.0 - 9.5 x10(3)/mc L [facility] Red Blood Cell 2.65(L) 4.00 - 5.21 x10(6)/ L [facility] Hemoglobin 8.7(L) 11.7 - 15.5 g/dL [facility] Hematocrit 25.0(L) 35.7 - 45.8 % [facility] Mean Cell Volume 94.3 82.6 - 94.4 fL [facility] Mean Cell Hemoglobin 32.8(H) 27.1 - 32.0 pg [facility] Mean Cell Hemoglobin Concentration 34.8 31.7 - 35.0 g/dL [facility] Platelet 209 145 - 357 x10(3)/mc L [facility] RDW Standard Deviation 40.8 37.0 - 46.0 fL [facility] RDW coefficient of variation 11.8 11.5 - 14.1 % [facility] Mean Platelet Volume 9.6 7.6 - 12.9 fL [facility] NRBC% auto 0.0 % [facility] NRBC Absolute 0.000 0.000 - 0.000 x10(3)/mc L [facility] Blood 08/25/2022 9:07 AM EDT 08/25/2022 9:26 AM EDT Narrative Resulting Agency Comment Spec In Lab Meredith Root SPA TECHNICIAN HEMATOLOGY ORDER JUDI Performing Organization Address City/[facility]/ZIP Co de Phone Number [facility] [place] [address] * Phosphorus (08/25/2022 9:07 AM EDT) Phosphorus 2.8 2.5 - 4.5 mg/dL [facility] Blood 08/25/2022 9:07 AM EDT 08/25/2022 9:26 AM EDT Narrative Resulting Agency Comment Spec In Lab Meredith Root SPA TECHNICIAN CHEMISTRY ORDERA BLES Performing Organization Address City/[facility]/ZIP Co de Phone Number [facility] [place] [address] * (ABNORMAL) Basic Metabolic Panel (non-fasting) (08/25/2022 9:07 AM EDT) Glucose 85 65 - 199 mg/dL [facility] Comment:Diabetes: >=200 mg/d L plus symptoms Blood Urea Nitrogen 9 8 - 18 mg/dL [facility] Creatinine 0.50(L) 0.70 - 1.20 mg/dL [facility] Sodium 136 135 - 145 mmol/L [facility] Potassium 3.4(L) 3.5 - 5.0 mmol/L [facility] Comment: Please note: ??Patients with WBC >100,000 may have falsely elevated Potassium levels. ??For accurate Potassium quantification in these patients send serum separator tube (gold top) for subsequent determinations. ??Contact the Clinical Chemistry Laboratory if there are any questions. Chloride 100 98 - 107 mmol/L [facility] Carbon Dioxide 23 22 - 31 mmol/L [facility] Anion Gap 13 5 - 15 mmol/L [facility] Calcium 8.4(L) 8.5 - 10.5 mg/dL [facility] Est Glomerular Filtration Rate 113 >=60 mL/min/1. 73 m?? [facility] Comment: This patient's estimated GFR was calculated using the 2020 CKD-EPI equation. The estimated GFR can vary from the measured GFR by up to 30% in the absence of rapidly changing kidney function. Assessment of the estimated GFR is not appropriate when creatinine concentrations are rapidly changing. For clinical situations in which a more precise estimate of GFR is necessary, consider alternative methods of GFR estimation such as a 24-hour urine creatinine clearance. Assignment of CKD stage 1-5 for patients with an eGFR near the transition point between stages may be based on clinical assessment of muscle mass and symptoms in addition to eGFR. Blood 08/25/2022 9:07 AM EDT 08/25/2022 9:26 AM EDT Narrative Resulting Agency Comment Spec In Lab Meredith E kD SPA TECHNICIAN CHEMISTRY ORDERA BLES Performing Organization Address City/[facility]/ZIP Co de Phone Number [facility] [place] [address] * Magnesium (08/25/2022 9:07 AM EDT) Magnesium 0.82 0.69 - 1.07 mmol/L [facility] Blood 08/25/2022 9:07 AM EDT 08/25/2022 9:26 AM EDT Narrative Resulting Agency Comment Spec In Lab Meredith E Caille SPA TECHNICIAN CHEMISTRY ORDERA BLES Performing Organization Address City/[facility]/ZIP Co de Phone Number [facility] [place] [address] * (ABNORMAL) Differential, Automated (08/24/2022 1:00 AM EDT) Neutrophil % 85.7 % [facility] Neutrophil Absolute 4.48 1.70 - 6.10 x10(3)/mc L [facility] Lymph % 7.6 % [facility] Lymphocytes Abs 0.4(L) 0.9 - 3.2 x10(3)/mc L [facility] Monocyte % 5.0 % [facility] Monocyte Abs 0.3 0.3 - 0.9 x10(3)/[facility] Eos % 1.1 % [facility] Eosinophils Abs 0.1 0.0 - 0.4 x10(3)/[facility] Basophil % 0.2 % [facility] Baso Absolute 0.0 0.0 - 0.1 x10(3)/[facility] Immature Gran % 0.40 % [facility] Comment: Immature granulocytes(IG's)percentage and absolute count will include metamyelocytes, myelocytes, and promyelocytes. Blood smears from CBCs yielding IG's will be scanned manually for concordance. If this scan disagrees with the automated IG or if promyelocytes are noted, a manual differential will be performed. Immature Gran Absolute 0.02 0.00 - 0.04 x10(3)/ L [facility] Blood 08/24/2022 1:00 AM EDT 08/24/2022 1:40 AM EDT Narrative Resulting Agency Comment Spec In Lab Meredith Root APRN HEMATOLOGY ORDER JUDI [facility] [place] [address] * (ABNORMAL) Hemogram (08/24/2022 1:00 AM EDT) White Blood Cell 5.2 4.0 - 9.5 x10(3)/ L [facility] Red Blood Cell 2.74(L) 4.00 - 5.21 x10(6)/[facility] Hemoglobin 8.9(L) 11.7 - 15.5 g/dL [facility] Hematocrit 25.5(L) 35.7 - 45.8 % [facility] Mean Cell Volume 93.1 82.6 - 94.4 fL [facility] Mean Cell Hemoglobin 32.5(H) 27.1 - 32.0 pg [facility] Mean Cell Hemoglobin Concentration 34.9 31.7 - 35.0 g/dL [facility] Platelet 182 145 - 357 x10(3)/mc L [facility] RDW Standard Deviation 39.6 37.0 - 46.0 fL [facility] RDW coefficient of variation 11.7 11.5 - 14.1 % [facility] Mean Platelet Volume 9.3 7.6 - 12.9 fL [facility] NRBC% auto 0.0 % [facility] NRBC Absolute 0.000 0.000 - 0.000 x10(3)/mc L [facility] Blood 08/24/2022 1:00 AM EDT 08/24/2022 1:40 AM EDT Narrative Resulting Agency Comment Spec In Lab Meredith E Caialtafe SPA TECHNICIAN HEMATOLOGY ORDER JUDI Performing Organization Address City/[facility]/ZIP Co de Phone Number [facility] [place] [address] * Phosphorus (08/24/2022 1:00 AM EDT) Phosphorus 2.5 2.5 - 4.5 mg/dL [facility] Blood 08/24/2022 1:00 AM EDT 08/24/2022 1:40 AM EDT Narrative Resulting Agency Comment Spec In Lab Meredith E Dk SPA TECHNICIAN CHEMISTRY ORDERA BLES Performing Organization Address City/[facility]/ZIP Co de Phone Number [facility] [place] [address] * (ABNORMAL) Basic Metabolic Panel (non-fasting) (08/24/2022 1:00 AM EDT) Glucose 103 65 - 199 mg/dL [facility] Comment:Diabetes: >=200 mg/d L plus symptoms Blood Urea Nitrogen 10 8 - 18 mg/dL [facility] Creatinine 0.56(L) 0.70 - 1.20 mg/dL [facility] Sodium 132(L) 135 - 145 mmol/L [facility] Potassium 3.3(L) 3.5 - 5.0 mmol/L [facility] Comment: Please note: ??Patients with WBC >100,000 may have falsely elevated Potassium levels. ??For accurate Potassium quantification in these patients send serum separator tube (gold top) for subsequent determinations. ??Contact the Clinical Chemistry Laboratory if there are any questions. Chloride 97(L) 98 - 107 mmol/L [facility] Carbon Dioxide 24 22 - 31 mmol/L [facility] Anion Gap 11 5 - 15 mmol/L [facility] Calcium 8.2(L) 8.5 - 10.5 mg/dL [facility] Est Glomerular Filtration Rate 110 >=60 mL/min/1. 73 m?? [facility] Comment: This patient's estimated GFR was calculated using the 2020 CKD-EPI equation. The estimated GFR can vary from the measured GFR by up to 30% in the absence of rapidly changing kidney function. Assessment of the estimated GFR is not appropriate when creatinine concentrations are rapidly changing. For clinical situations in which a more precise estimate of GFR is necessary, consider alternative methods of GFR estimation such as a 24-hour urine creatinine clearance. Assignment of CKD stage 1-5 for patients with an eGFR near the transition point between stages may be based on clinical assessment of muscle mass and symptoms in addition to eGFR. Blood 08/24/2022 1:00 AM EDT 08/24/2022 1:40 AM EDT Narrative Resulting Agency Comment Spec In Lab Meredith Root SPA TECHNICIAN CHEMISTRY ORDERA BLES [facility] [place] [address] * Magnesium (08/24/2022 1:00 AM EDT) Magnesium 0.80 0.69 - 1.07 mmol/L [facility] Blood 08/24/2022 1:00 AM EDT 08/24/2022 1:40 AM EDT Narrative Resulting Agency Comment Spec In Lab Meredith Root APRN CHEMISTRY ORDERA BLES [facility] [place] [address] * (ABNORMAL) Basic Metabolic Panel (non-fasting) (08/23/2022 1:30 PM EDT) Glucose 101 65 - 199 mg/dL [facility] Comment:Diabetes: >=200 mg/d L plus symptoms Blood Urea Nitrogen 8 8 - 18 mg/dL [facility] Creatinine 0.57(L) 0.70 - 1.20 mg/dL [facility] Sodium 130(L) 135 - 145 mmol/L [facility] Potassium 3.6 3.5 - 5.0 mmol/L [facility] Comment: Please note: ??Patients with WBC >100,000 may have falsely elevated Potassium levels. ??For accurate Potassium quantification in these patients send serum separator tube (gold top) for subsequent determinations. ??Contact the Clinical Chemistry Laboratory if there are any questions. Chloride 95(L) 98 - 107 mmol/L [facility] Carbon Dioxide 23 22 - 31 mmol/L [facility] Anion Gap 12 5 - 15 mmol/L [facility] Calcium 8.4(L) 8.5 - 10.5 mg/dL [facility] Est Glomerular Filtration Rate 110 >=60 mL/min/1. 73 m?? [facility] Comment: This patient's estimated GFR was calculated using the 2020 CKD-EPI equation. The estimated GFR can vary from the measured GFR by up to 30% in the absence of rapidly changing kidney function. Assessment of the estimated GFR is not appropriate when creatinine concentrations are rapidly changing. For clinical situations in which a more precise estimate of GFR is necessary, consider alternative methods of GFR estimation such as a 24-hour urine creatinine clearance. Assignment of CKD stage 1-5 for patients with an eGFR near the transition point between stages may be based on clinical assessment of muscle mass and symptoms in addition to eGFR. Blood 08/23/2022 1:30 PM EDT 08/23/2022 1:51 PM EDT Narrative Resulting Agency Comment Spec In Lab Meredith E Caille SPA TECHNICIAN CHEMISTRY ORDERA BLES Performing Organization Address City/[facility]/[place] [address] * (ABNORMAL) Differential, Automated (08/23/2022 12:52 AM EDT) Neutrophil % 88.0 % [facility] Neutrophil Absolute 6.43(H) 1.70 - 6.10 x10(3)/mc L [facility] Lymph % 6.4 % [facility] Lymphocytes Abs 0.5(L) 0.9 - 3.2 x10(3)/mc L [facility] Monocyte % 4.9 % [facility] Monocyte Abs 0.4 0.3 - 0.9 x10(3)/mc L [facility] Eos % 0.1 % [facility] Eosinophils Abs 0.0 0.0 - 0.4 x10(3)/mc L [facility] Basophil % 0.3 % [facility] Baso Absolute 0.0 0.0 - 0.1 x10(3)/mc L [facility] Immature Gran % 0.30 % [facility] Comment: Immature granulocytes(IG's)percentage and absolute count will include metamyelocytes, myelocytes, and promyelocytes. Blood smears from CBCs yielding IG's will be scanned manually for concordance. If this scan disagrees with the automated IG or if promyelocytes are noted, a manual differential will be performed. Immature Gran Absolute 0.02 0.00 - 0.04 x10(3)/mc L [facility] Blood 08/23/2022 12:5 2 AM EDT 08/23/2022 1:00 AM EDT Narrative Resulting Agency Comment Spec In Lab Meredith Root SPA TECHNICIAN HEMATOLOGY ORDER JUDI Performing Organization Address City/[facility]/[place] [address] * (ABNORMAL) Hemogram (08/23/2022 12:52 AM EDT) White Blood Cell 7.3 4.0 - 9.5 x10(3)/mc L [facility] Red Blood Cell 3.12(L) 4.00 - 5.21 x10(6)/mc L [facility] Hemoglobin 10.2(L) 11.7 - 15.5 g/dL [facility] Hematocrit 29.6(L) 35.7 - 45.8 % [facility] Mean Cell Volume 94.9(H) 82.6 - 94.4 fL [facility] Mean Cell Hemoglobin 32.7(H) 27.1 - 32.0 pg [facility] Mean Cell Hemoglobin Concentration 34.5 31.7 - 35.0 g/dL [facility] Platelet 216 145 - 357 x10(3)/mc L [facility] RDW Standard Deviation 41.1 37.0 - 46.0 fL [facility] RDW coefficient of variation 11.9 11.5 - 14.1 % [facility] Mean Platelet Volume 9.0 7.6 - 12.9 fL [facility] NRBC% auto 0.0 % [facility] NRBC Absolute 0.000 0.000 - 0.000 x10(3)/mc L [facility] Blood 08/23/2022 12:5 2 AM EDT 08/23/2022 1:00 AM EDT Narrative Resulting Agency Comment Spec In Lab Meredith E Caille SPA TECHNICIAN HEMATOLOGY ORDER JUDI Performing Organization Address City/[facility] Co de Phone Number [facility] [place] [address] * Phosphorus (08/23/2022 12:52 AM EDT) Phosphorus 3.2 2.5 - 4.5 mg/dL [facility] Blood 08/23/2022 12:5 2 AM EDT 08/23/2022 1:00 AM EDT Narrative Resulting Agency Comment Spec In Lab Meredith E Caille SPA TECHNICIAN CHEMISTRY ORDERA BLES Performing Organization Address City/[facility] Co de Phone Number [facility] [place] [address] * (ABNORMAL) Basic Metabolic Panel (non-fasting) (08/23/2022 12:52 AM EDT) Glucose 94 65 - 199 mg/dL [facility] Comment:Diabetes: >=200 mg/d L plus symptoms Blood Urea Nitrogen 7(L) 8 - 18 mg/dL [facility] Creatinine 0.65(L) 0.70 - 1.20 mg/dL [facility] Sodium 131(L) 135 - 145 mmol/L [facility] Potassium 3.7 3.5 - 5.0 mmol/L [facility] Comment: Please note: ??Patients with WBC >100,000 may have falsely elevated Potassium levels. ??For accurate Potassium quantification in these patients send serum separator tube (gold top) for subsequent determinations. ??Contact the Clinical Chemistry Laboratory if there are any questions. Chloride 96(L) 98 - 107 mmol/L [facility] Carbon Dioxide 25 22 - 31 mmol/L [facility] Anion Gap 10 5 - 15 mmol/L [facility] Calcium 8.4(L) 8.5 - 10.5 mg/dL [facility] Est Glomerular Filtration Rate 107 >=60 mL/min/1. 73 m?? [facility] Comment: This patient's estimated GFR was calculated using the 2020 CKD-EPI equation. The estimated GFR can vary from the measured GFR by up to 30% in the absence of rapidly changing kidney function. Assessment of the estimated GFR is not appropriate when creatinine concentrations are rapidly changing. For clinical situations in which a more precise estimate of GFR is necessary, consider alternative methods of GFR estimation such as a 24-hour urine creatinine clearance. Assignment of CKD stage 1-5 for patients with an eGFR near the transition point between stages may be based on clinical assessment of muscle mass and symptoms in addition to eGFR. Blood 08/23/2022 12:5 2 AM EDT 08/23/2022 1:00 AM EDT Narrative Resulting Agency Comment Spec In Lab Meredith Root SPA TECHNICIAN CHEMISTRY ORDERA BLES [facility] [place] [address] * Magnesium (08/23/2022 12:52 AM EDT) Magnesium 0.88 0.69 - 1.07 mmol/L [facility] Blood 08/23/2022 12:5 2 AM EDT 08/23/2022 1:00 AM EDT Narrative Resulting Agency Comment Spec In Lab Meredith Root SPA TECHNICIAN CHEMISTRY ORDERA BLES [facility] [place] [address] * XR Abdomen 1 view (Generic) (08/22/2022 6:42 PM EDT) Anatomical Region Laterality Modality Abdomen N/A Digital Radiogra phy Impressions 08/22/2022 6:52 PM EDT Nasogastric tube placement with side hole projecting over the GE junction. Tip overlies the mid stomach. Thank you for letting us participate in the care of this patient. ??If you are a health care provider and have any questions regarding this report, please contact the number below. ??For patients who have questions please contact the health director critical care that requested your imaging first. ? Narrative 08/22/2022 6:52 PM EDT EXAMINATION: XR ABDOMEN 1 VIEW (GENERIC) CLINICAL HISTORY: s/p direct laryngoscopy for NGT placement TECHNIQUE: Single view of the abdomen submitted for review. COMPARISON: Chest x-ray 08/22/2022 FINDINGS: Nasogastric tube placement with side hole projecting over the GE junction. Tip overlies the mid stomach. Mild gaseous prominence of the colon. No free air. Procedure Note Lily Celeste MD - 08/22/2022 EXAMINATION: XR ABDOMEN 1 VIEW (GENERIC) CLINICAL HISTORY: s/p direct laryngoscopy for NGT placement TECHNIQUE: Single view of the abdomen submitted for review. COMPARISON: Chest x-ray 08/22/2022 FINDINGS: Nasogastric tube placement with side hole projecting over the GE junction.Tip overlies the mid stomach. Mild gaseous prominence of the colon. No freeair. IMPRESSION Nasogastric tube placement with side hole projecting over the GE junction.Tip overlies the mid stomach. Thank you for letting us participate in the care of this patient. If youare a health care provider and have any questions regarding this report,please contact the number below. For patients who have questions please contactthe health director critical care that requested your imaging first. Electronically signed by: LILY CELESTE MD, [facility]([phone]), at 08/22/2022 6:52 PM Meredith Root SPA TECHNICIAN IMG DX ORDERABLE S * XR Chest One View (08/22/2022 5:13 PM EDT) Anatomical Region Laterality Modality Chest N/A Digital Radiogra phy Impressions 08/22/2022 5:39 PM EDT 1. ??Faint left basilar opacity which can be seen in atelectasis or pneumonitis. 2. ??No pneumothorax. 3. ??Distended loops of colon in the LEFT upper quadrant Preliminary report signed by: Hermelindo Garcia at 08/22/2022 5:35 PM I have personally reviewed the image(s) and the resident's interpretation and agree with the findings, LILY CELESTE MD at 08/22/2022 5:39 PM Thank you for letting us participate in the care of this patient. ??If you are a health care provider and have any questions regarding this report, please contact the number below. ??For patients who have questions please contact the health director critical care that requested your imaging first. ? Electronically signed by: LILY CELESTE MD, [facility] ([phone]), at 08/22/2022 5:39 PM Narrative 08/22/2022 5:39 PM EDT EXAMINATION: XR CHEST ONE VIEW CLINICAL HISTORY: s/p multiple enteral tube placements, want to rule out PTX TECHNIQUE: 1 view of the chest COMPARISON: Chest radiograph 01/19/2014 FINDINGS: Tracheostomy tube in place. Faint left basilar opacity.. No pleural effusion or pneumothorax. The cardiomediastinal silhouette, taras, and pulmonary vasculature are within normal limits. Surgical changes in the left supraclavicular region. Partially visualized dilated loops of large bowel are present in the LEFT upper quadrant Procedure Note Lily Celeste MD - 08/22/2022 EXAMINATION: XR CHEST ONE VIEW CLINICAL HISTORY: s/p multiple enteral tube placements, want to rule outPTX TECHNIQUE: 1 view of the chest COMPARISON: Chest radiograph 01/19/2014 FINDINGS: Tracheostomy tube in place. Faint left basilar opacity.. No pleuraleffusion or pneumothorax. The cardiomediastinal silhouette, taras, and pulmonaryvasculature are within normal limits. Surgical changes in the left supraclavicularregion. Partially visualized dilated loops of large bowel are present in the LEFTupper quadrant IMPRESSION 1. Faint left basilar opacity which can be seen in atelectasis orpneumonitis. 2. No pneumothorax. 3. Distended loops of colon in the LEFT upper quadrant Preliminary report signed by: Hermelindo Garcia at 08/22/2022 5:35 PM I have personally reviewed the image(s) and the resident's interpretationand agree with the findings, LILY CELESTE MD at 08/22/2022 5:39 PM Thank you for letting us participate in the care of this patient. If youare a health care provider and have any questions regarding this report,please contact the number below. For patients who have questions please contactthe health director critical care that requested your imaging first. Electronically signed by: LILY CELESTE MD, [facility]([phone]), at 08/22/2022 5:39 PM Meredith Jennifer Dk SOLORZANO IMG DX ORDERABLE S * XR Abdomen 1 view (Generic) (08/22/2022 3:46 PM EDT) Anatomical Region Laterality Modality Abdomen N/A Digital Radiogra phy Impressions 08/22/2022 4:14 PM EDT 1. ??Enteric tube tip and side-port project over the expected location of the right mainstem bronchus. I Nicki Castanon MD discussed the results (Impression #1) with JEANINE Root on 08/22/2022 4:13 PM and verified that the results were understood. Meredith reported that they had already pulled the enteric tube. ??We discussed that if there is concern for pneumothorax a dedicated chest radiograph is recommended. Thank you for letting us participate in the care of this patient. ??If you are a health care provider and have any questions regarding this report, please contact the number below. ??For patients who have questions please contact the health director critical care that requested your imaging first. ? Electronically signed by: Nicki Castanon MD, [facility] ([phone]), at 08/22/2022 4:14 PM Narrative 08/22/2022 4:14 PM EDT EXAMINATION: XR ABDOMEN 1 VIEW (GENERIC) CLINICAL HISTORY: s/p NGT placement (as entered by ordering provider in the order requisition) TECHNIQUE: Portable supine AP view of the upper abdomen. The right lateral margin of the abdominal cavity and the lower abdomen and pelvis are excluded from the imaged [id number]. COMPARISON: Abdominal radiograph 08/22/2022. FINDINGS: This enteric tube with its tip and side-port projecting over the expected location of the right mainstem bronchus. Lung bases are clear. Multiple prominent loops of gas-filled bowel are partially visualized in the left upper abdomen. Procedure Note Nicki Castanon MD - 08/22/2022 EXAMINATION: XR ABDOMEN 1 VIEW (GENERIC) CLINICAL HISTORY: s/p NGT placement (as entered by ordering provider inthe order requisition) TECHNIQUE: Portable supine AP view of the upper abdomen. The right lateral margin ofthe abdominal cavity and the lower abdomen and pelvis are excluded from theimaged [id number]. COMPARISON: Abdominal radiograph 08/22/2022. FINDINGS: This enteric tube with its tip and side-port projecting over theexpected location of the right mainstem bronchus. Lung bases are clear. Multiple prominent loops of gas-filled bowel arepartially visualized in the left upper abdomen. IMPRESSION 1. Enteric tube tip and side-port project over the expected location ofthe right mainstem bronchus. I Nicki Castanon MD discussed the results (Impression #1) with Manny Root on 08/22/2022 4:13 PM and verified that the results were understood. Meredith reported that they had already pulled the enteric tube. Wediscussed that if there is concern for pneumothorax a dedicated chest radiographis recommended. Thank you for letting us participate in the care of this patient. If youare a health care provider and have any questions regarding this report,please contact the number below. For patients who have questions please contactthe health director critical care that requested your imaging first. Electronically signed by: Nicki Castanon MD, [facility]([phone]), at 08/22/2022 4:14 PM Meredith Root APRN IMG DX ORDERABLE S * (ABNORMAL) Vitamin B12 (08/22/2022 12:15 PM EDT) Vitamin B12 213(L) 232 - 1,245 pg/mL [facility] Blood 08/22/2022 12:1 5 PM EDT 08/22/2022 12:35 PM EDT Narrative Resulting Agency Comment Spec In Lab Meredith Root APRN CHEMISTRY ORDERA BLES [facility] [place] [address] * XR Abdomen 1 view (Generic) (08/22/2022 10:20 AM EDT) Anatomical Region Laterality Modality Abdomen N/A Digital Radiogra phy Addenda Addendum by Parish Gomes MD on 08/22/2022 12:17 PM EDT --------ADDENDUM #1-------- The Workflow Coordinator verified with Meredith Root APRN on 08/22/2022 12:03 PM to acknowledgement of the results. Thank you for letting us participate in the care of this patient. ??If you are a health care provider and have any questions regarding this report, please contact the number below. ??For patients who have questions please contact the health director critical care that requested your imaging first. ? --------ORIGINAL REPORT -------- EXAMINATION: XR ABDOMEN 1 VIEW (GENERIC) CLINICAL HISTORY: s/p DHt placement TECHNIQUE: AP portable semierect view of the abdomen or lower chest. COMPARISON: None FINDINGS: A feeding tube is present passing down the right mainstem bronchus with the tip apparently in the right lower lobe behind the hemidiaphragm. IMPRESSION: Feeding tube is present with the tip in the right lower chest. Thank you for letting us participate in the care of this patient. ??If you are a health care provider and have any questions regarding this report, please contact the number below. ??For patients who have questions please contact the health director critical care that requested your imaging first. ? Electronically signed by: Parish Gomes MD, [facility] ([phone]), at 08/22/2022 11:53 AM Impressions 08/22/2022 11:53 AM EDT Feeding tube is present with the tip in the right lower chest. Thank you for letting us participate in the care of this patient. ??If you are a health care provider and have any questions regarding this report, please contact the number below. ??For patients who have questions please contact the health director critical care that requested your imaging first. ? Electronically signed by: Parish Gomes MD, [facility] ([phone]), at 08/22/2022 11:53 AM Narrative 08/22/2022 11:53 AM EDT EXAMINATION: XR ABDOMEN 1 VIEW (GENERIC) CLINICAL HISTORY: s/p DHt placement TECHNIQUE: AP portable semierect view of the abdomen or lower chest. COMPARISON: None FINDINGS: A feeding tube is present passing down the right mainstem bronchus with the tip apparently in the right lower lobe behind the hemidiaphragm. Procedure Note Parish Gomes MD - 08/22/2022 EXAMINATION: XR ABDOMEN 1 VIEW (GENERIC) CLINICAL HISTORY: s/p DHt placement TECHNIQUE: AP portable semierect view of the abdomen or lower chest. COMPARISON: None FINDINGS: A feeding tube is present passing down the right mainstem bronchus withthe tip apparently in the right lower lobe behind the hemidiaphragm. IMPRESSION Feeding tube is present with the tip in the right lower chest. Thank you for letting us participate in the care of this patient. If youare a health care provider and have any questions regarding this report,please contact the number below. For patients who have questions please contactthe health director critical care that requested your imaging first. Electronically signed by: Parish Gomes MD, [facility]([phone]), at 08/22/2022 11:53 AM Meredith Root APRN IMG DX ORDERABLE S * EKG 12 Lead (08/22/2022 7:53 AM EDT) Ventricular rate 79 BPM MUSE SYSTEM Atrial Rate 79 BPM MUSE SYSTEM P-R Interval 134 ms MUSE SYSTEM QRS Duration 80 ms MUSE SYSTEM Q-T Interval 356 ms MUSE SYSTEM QTC Calculated (Bezet) 408 ms MUSE SYSTEM Calculated P [place] 88 degrees MUSE SYSTEM Calculated R [place] 11 degrees MUSE SYSTEM Calculated T [place] 35 degrees MUSE SYSTEM INTERPRETATION Normal sinus rhythm with sinus arrhythmia Nonspecific T wave abnormality Abnormal ECG No previous ECGs available Confirmed by fellow MD Almanza Thara ([id number]) on 08/22/2022 9:42:40 AM Confirmed by MD Rony, Tita ([id number]) on 08/23/2022 8:30:17 AM MUSE SYSTEM 08/22/2022 7:53 AM EDT 08/23/2022 8:30 AM EDT Meredith Root APRN ECG ORDERABLES MUSE SYSTEM * (ABNORMAL) Differential, Automated (08/22/2022 1:10 AM EDT) Neutrophil % 90.2 % [facility] Neutrophil Absolute 5.93 1.70 - 6.10 x10(3)/mc L [facility] Lymph % 3.7 % [facility] Lymphocytes Abs 0.2(L) 0.9 - 3.2 x10(3)/mc L [facility] Monocyte % 5.6 % [facility] Monocyte Abs 0.4 0.3 - 0.9 x10(3)/ L [facility] Eos % 0.0 % [facility] Eosinophils Abs 0.0 0.0 - 0.4 x10(3)/ L [facility] Basophil % 0.2 % [facility] Baso Absolute 0.0 0.0 - 0.1 x10(3)/ L [facility] Immature Gran % 0.30 % [facility] Comment: Immature granulocytes(IG's)percentage and absolute count will include metamyelocytes, myelocytes, and promyelocytes. Blood smears from CBCs yielding IG's will be scanned manually for concordance. If this scan disagrees with the automated IG or if promyelocytes are noted, a manual differential will be performed. Immature Gran Absolute 0.02 0.00 - 0.04 x10(3)/ L [facility] Blood 08/22/2022 1:10 AM EDT 08/22/2022 1:15 AM EDT Narrative Resulting Agency Comment Spec In Lab Mayelin Hoskins MD HEMATOLOGY ORDERABL ES [facility] [place] [address] * (ABNORMAL) Hemogram (08/22/2022 1:10 AM EDT) White Blood Cell 6.6 4.0 - 9.5 x10(3)/ L [facility] Red Blood Cell 2.87(L) 4.00 - 5.21 x10(6)/[facility] Hemoglobin 9.5(L) 11.7 - 15.5 g/dL [facility] Hematocrit 27.6(L) 35.7 - 45.8 % [facility] Mean Cell Volume 96.2(H) 82.6 - 94.4 fL [facility] Mean Cell Hemoglobin 33.1(H) 27.1 - 32.0 pg [facility] Mean Cell Hemoglobin Concentration 34.4 31.7 - 35.0 g/dL [facility] Platelet 202 145 - 357 x10(3)/mc L [facility] RDW Standard Deviation 42.1 37.0 - 46.0 fL [facility] RDW coefficient of variation 11.9 11.5 - 14.1 % [facility] Mean Platelet Volume 9.1 7.6 - 12.9 fL [facility] NRBC% auto 0.0 % [facility] NRBC Absolute 0.000 0.000 - 0.000 x10(3)/mc L [facility] Blood 08/22/2022 1:10 AM EDT 08/22/2022 1:15 AM EDT Narrative Resulting Agency Comment Spec In Lab Mayelin Hoskins MD HEMATOLOGY ORDERABL ES Performing Organization Address City/[facility]/ZIP Co de Phone Number [facility] [place] [address] * Phosphorus (08/22/2022 1:10 AM EDT) Phosphorus 2.7 2.5 - 4.5 mg/dL [facility] Blood 08/22/2022 1:10 AM EDT 08/22/2022 1:15 AM EDT Narrative Resulting Agency Comment Spec In Lab Roberth Lee MD CHEMISTRY ORDERABL ES Performing Organization Address City/[facility] Co de Phone Number [facility] [place] [address] * (ABNORMAL) Magnesium (08/22/2022 1:10 AM EDT) Magnesium 0.66(L) 0.69 - 1.07 mmol/L [facility] Blood 08/22/2022 1:10 AM EDT 08/22/2022 1:15 AM EDT Narrative Resulting Agency Comment Spec In Lab Roberth Lee MD CHEMISTRY ORDERABL ES Performing Organization Address [facility] Co de Phone Number [facility] [place] [address] * (ABNORMAL) Basic Metabolic Panel (non-fasting) (08/22/2022 1:10 AM EDT) Glucose 149 65 - 199 mg/dL [facility] Comment:Diabetes: >=200 mg/d L plus symptoms Blood Urea Nitrogen 6(L) 8 - 18 mg/dL [facility] Creatinine 0.64(L) 0.70 - 1.20 mg/dL [facility] Sodium 136 135 - 145 mmol/L [facility] Potassium 4.2 3.5 - 5.0 mmol/L [facility] Comment: Please note: ??Patients with WBC >100,000 may have falsely elevated Potassium levels. ??For accurate Potassium quantification in these patients send serum separator tube (gold top) for subsequent determinations. ??Contact the Clinical Chemistry Laboratory if there are any questions. Chloride 102 98 - 107 mmol/L [facility] Carbon Dioxide 26 22 - 31 mmol/L [facility] Anion Gap 8 5 - 15 mmol/L [facility] Calcium 8.8 8.5 - 10.5 mg/dL [facility] Est Glomerular Filtration Rate 107 >=60 mL/min/1. 73 m?? [facility] Comment: This patient's estimated GFR was calculated using the 2020 CKD-EPI equation. The estimated GFR can vary from the measured GFR by up to 30% in the absence of rapidly changing kidney function. Assessment of the estimated GFR is not appropriate when creatinine concentrations are rapidly changing. For clinical situations in which a more precise estimate of GFR is necessary, consider alternative methods of GFR estimation such as a 24-hour urine creatinine clearance. Assignment of CKD stage 1-5 for patients with an eGFR near the transition point between stages may be based on clinical assessment of muscle mass and symptoms in addition to eGFR. Blood 08/22/2022 1:10 AM EDT 08/22/2022 1:15 AM EDT Narrative Resulting Agency Comment Spec In Lab Roberth Lee MD CHEMISTRY ORDERABL ES Performing Organization Address [facility]/ZIP Co de Phone Number [facility] [place] [place] [address] * POCT Glucose (08/21/2022 8:37 PM EDT) Glucose, POC 172 65 - 199 mg/dL [facility] Comment: Supplemental ranges: <140 mg/dL before meals <180 mg/dL all other times of the day Blood 08/21/2022 8:37 PM EDT 08/21/2022 8:37 PM EDT Roberth Lee MD POINT OF CARE TEST ORDERABLES [facility] [place] [address] * (ABNORMAL) BLOOD GAS 2 ARTERIAL (08/21/2022 5:24 PM EDT) pH, Arterial 7.39 7.35 - 7.45 [facility] PCO2, Arterial 34(L) 35 - 45 mmHg [facility] PO2, Arterial 181(H) 85 - 104 mmHg [facility] Bicarbonate, Arterial 20.1 20.0 - 26.0 mmol/L [facility] Base Excess, Arterial -4.8(L) -3.0 - 3.0 mmol/L [facility] Hgb Blood Gas 11.0(L) 11.7 - 15.5 g/dL [facility] Oxyhemoglobin, Arterial 98.6(H) 94.0 - 97.0 % [facility] Carboxyhemoglob in, Arterial 0.3 % [facility] Comment: Nonsmokers: 0.5-1.5% COHB Smokers: Variable, but usually less than 10% Toxic: 20-30% COHB Lethal: Greater than 60% COHB Methemoglobin, Arterial 0.0 <=1.5 % [facility] Na Whole Blood 134(L) 135 - 145 mmol/L [facility] K Whole Blood 3.6 3.5 - 5.0 mmol/L [facility] Comment: Please note: Patients with WBC >100,000 may have falsely elevated Potassium levels. Contact the Clinical Chemistry Laboratory if there are any questions. ICa Whole Blood 1.05(L) 1.15 - 1.33 mmol/L [facility] Comment: Note: ??Total bilirubin higher than 20 mg/dL may lead to falsely low ionized calcium. CL Whole Blood 106 98 - 107 mmol/L [facility] Gluc Whole Bld 126 65 - 199 mg/dL [facility] Comment:Diabetes: >=200 mg/d L plus symptoms. Lactate WB 1.2 0.5 - 2.2 mmol/L [facility] Blood 08/21/2022 5:24 PM EDT 08/21/2022 5:24 PM EDT Robreth Lee MD POINT OF CARE TEST ORDERABLES Performing Organization Address [facility] Co de Phone Number [facility] [place] [address] * Specimen to Pathology (08/21/2022 2:13 PM EDT) AP Specimen 08/21/2022 2:13 PM EDT 08/21/2022 2:13 PM EDT Narrative [facility] - 08/21/2022 2:13 PM EDT Specimen requisition ordered. ??Separate Pathology report to follow Roberth Lee MD PATHOLOGY/CYTOLOGY ORDERABLES Performing Organization Address [facility] Co de Phone Number [facility] [place] [address] * Specimen to Pathology (08/21/2022 2:13 PM EDT) AP Specimen 08/21/2022 2:13 PM EDT 08/21/2022 2:13 PM EDT Narrative [facility] - 08/21/2022 2:13 PM EDT Specimen requisition ordered. ??Separate Pathology report to follow Roberth Lee MD PATHOLOGY/CYTOLOGY ORDERABLES Performing Organization Address [facility] Co de Phone Number [facility] [place] [address] * (ABNORMAL) BLOOD GAS 2 ARTERIAL (08/21/2022 1:27 PM EDT) pH, Arterial 7.42 7.35 - 7.45 [facility] PCO2, Arterial 35 35 - 45 mmHg [facility] PO2, Arterial 162(H) 85 - 104 mmHg [facility] Bicarbonate, Arterial 22.5 20.0 - 26.0 mmol/L [facility] Base Excess, Arterial -2.5 -3.0 - 3.0 mmol/L [facility] Hgb Blood Gas 12.7 11.7 - 15.5 g/dL [facility] Oxyhemoglobin, Arterial 98.8(H) 94.0 - 97.0 % [facility] Carboxyhemoglob in, Arterial 0.2 % [facility] Comment: Nonsmokers: 0.5-1.5% COHB Smokers: Variable, but usually less than 10% Toxic: 20-30% COHB Lethal: Greater than 60% COHB Methemoglobin, Arterial 0.3 <=1.5 % [facility] Na Whole Blood 129(L) 135 - 145 mmol/L [facility] K Whole Blood 3.6 3.5 - 5.0 mmol/L [facility] Comment: Please note: Patients with WBC >100,000 may have falsely elevated Potassium levels. Contact the Clinical Chemistry Laboratory if there are any questions. ICa Whole Blood 1.13(L) 1.15 - 1.33 mmol/L [facility] Comment: Note: ??Total bilirubin higher than 20 mg/dL may lead to falsely low ionized calcium. CL Whole Blood 104 98 - 107 mmol/L [facility] Gluc Whole Bld 123 65 - 199 mg/dL [facility] Comment:Diabetes: >=200 mg/d L plus symptoms. Lactate WB 1.2 0.5 - 2.2 mmol/L [facility] FIO2 Art 56 % [facility] Flow Art 1.0 LPM [facility] PF Ratio Art 289 [facility] Temp Art 34.5 Celsius [facility] Blood 08/21/2022 1:27 PM EDT 08/21/2022 1:27 PM EDT Roberth Lee MD POINT OF CARE TEST ORDERABLES [facility] [address] [place] [address] * (ABNORMAL) BLOOD GAS 2 ARTERIAL (08/21/2022 10:51 AM EDT) pH, Arterial 7.46(H) 7.35 - 7.45 [facility] PCO2, Arterial 32(L) 35 - 45 mmHg [facility] PO2, Arterial 75(L) 85 - 104 mmHg [facility] Bicarbonate, Arterial 23.0 20.0 - 26.0 mmol/L [facility] Base Excess, Arterial -1.6 -3.0 - 3.0 mmol/L [facility] Hgb Blood Gas 13.4 11.7 - 15.5 g/dL [facility] Oxyhemoglobin, Arterial 96.0 94.0 - 97.0 % [facility] Carboxyhemoglob in, Arterial 0.2 % [facility] Comment: Nonsmokers: 0.5-1.5% COHB Smokers: Variable, but usually less than 10% Toxic: 20-30% COHB Lethal: Greater than 60% COHB Methemoglobin, Arterial 0.3 <=1.5 % [facility] Na Whole Blood 134(L) 135 - 145 mmol/L [facility] K Whole Blood 4.0 3.5 - 5.0 mmol/L [facility] Comment: Please note: Patients with WBC >100,000 may have falsely elevated Potassium levels. Contact the Clinical Chemistry Laboratory if there are any questions. ICa Whole Blood 1.18 1.15 - 1.33 mmol/L [facility] Comment: Note: ??Total bilirubin higher than 20 mg/dL may lead to falsely low ionized calcium. CL Whole Blood 103 98 - 107 mmol/L [facility] Gluc Whole Bld 121 65 - 199 mg/dL [facility] Comment:Diabetes: >=200 mg/d L plus symptoms. Lactate WB 1.0 0.5 - 2.2 mmol/L [facility] FIO2 Art 66 % [facility] Flow Art 0.8 LPM [facility] PF Ratio Art 114 [facility] Temp Art 34.0 Celsius [facility] Blood 08/21/2022 10:5 1 AM EDT 08/21/2022 10:51 AM EDT Roberth Lee MD POINT OF CARE TEST ORDERABLES Performing Organization Address City/[facility]/ZIP Co de Phone Number [facility] [place] [address] * Specimen to Pathology (08/21/2022 10:30 AM EDT) AP Specimen 08/21/2022 10:3 0 AM EDT 08/21/2022 10:31 AM EDT Narrative [facility] - 08/21/2022 10:31 AM EDT Specimen requisition ordered. ??Separate Pathology report to follow Roberth Lee MD PATHOLOGY/CYTOLOGY ORDERABLES Performing Organization Address [facility] [place] [address] * Surgical Pathology Report (08/21/2022 10:26 AM EDT) Final Diagnosis [id number] ? Location: [id number]; N520; A The signing pathologist has (i) examined the relevant preparation(s) for the specimen(s) and (ii) rendered or confirmed the diagnosis(es). . ?Surgical Pathology DIAGNOSIS A - Right level 1B neck, excision: - Two lymph nodes, negative for malignancy (0/2). B - Right level 2A neck, excision: - One lymph node, negative for malignancy (0/1). C - Left floor of mouth, excision: - Benign squamous mucosa with acute and chronic inflammation. - Submucosal fibrosis and atrophic skeletal muscle. 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 - Margins are free of significant inflammation; osteonecrosis involves the right mandibular margin. The left mandibular margin shows viable bone with focal marrow fat necrosis. Electronically signed by: ?Eirnn Parra MD Verified: ??08/31/2022 12:44 ??Pathologist Performed at: ??-[facility] [place] Dept. of Pathology, [place] [id number] Senior Field Service Engineer: Ramírez Arredondo MD, FCAP, ??CLIA Certificate: [id number] DISCUSSION B1: ??The lymph node contains benign salivary epithelial inclusions. SPECIMEN(S) SUBMITTED A - Right level 1B neck, excision (1) B - Right level 2A neck, excision (1) C - Left floor of mouth, excision (1) D - Mandible, resection (1) CLINICAL INFORMATION ORN mandible. 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 Quantity/Size: Two, 1.2 x 1.3 x 0.2 cm and 1.4 x 1.0 x 0.6 cm. Tissue Description: Adipose tissue with two, up to 0.8 cm. Sections/Processi ng: Entirely submitted in 2 cassettes as follows: ?A1: ??Single intact lymph node ?A2: ??Single bisected lymph node B - Labeled/Fixative: Right level IIA neck, fresh. Quantity/Size: Two, 0.9 x 0.7 x 0.3 and 1.4 x 0.8 x 0.8 cm. Tissue Description: Adipose tissue with two, up to 1.4 cm. Sections/Processi ng: Entirely submitted in 2 cassettes as follows: ?B1: ??Single intact candidate lymph node . SPECIMEN PROCESSING ?B2: ??Single bisected lymph node C - Labeled/Fixative: Left floor of mouth, fresh. Quantity/Size: Fragments, ranging from 0.3-2.5 cm in greatest dimension. Tissue Description: Osorio-red, friable fragments of mucosa. Sections/Processi ng: Submitted in toto in 3 cassettes labeled C1-C3. D - Labeled/Fixative: Mandible, fresh. Quantity/Size: Single, 7.6 x 6.9 x 3.7 cm. Tissue Description: Mandibulectomy specimen with minimal attached soft tissue and two teeth. Additionally, there is a 1.0 x 0.9 cm portion of skin on the anteroinferior surface with a 0.2 cm defect with an underlying fistula tract. The cut surfaces of the bone are osorio-gallardo, dull to chalky yellow. Ink designation: The soft tissue surrounding the portion of skin is inked black. Sections/Processi ng: Blocks submitted for decalcification: D1-D5. Mail Distribution Clerk sections in 5 cassettes as follows: ?D1: ??Left mandibular margin en face ?D2: ??Right mandibular margin en face ?D3: ??Skin with fistula tract and underlying bone ?D4-D5: ??Mail Distribution Clerk dull to chalky yellow cut surfaces ??jnr 08/31/2022 12:44 PM EDT [facility] BONE STRUCTURE OF MANDIBLE / Unknown 08/21/2022 10:26 AM EDT 08/21/2022 10:26 AM EDT LYMPH NODE SPECIMEN / Unknown 08/21/2022 10:26 AM EDT 08/21/2022 10:26 AM EDT MOUTH REGION STRUCTURE / Unknown 08/21/2022 10:26 AM EDT 08/21/2022 10:26 AM EDT BONE STRUCTURE OF MANDIBLE / Unknown 08/21/2022 10:26 AM EDT 08/21/2022 10:26 AM EDT Roberth Lee MD PATHOLOGY/CYTOLOGY ORDERABLES [facility] [address] [place] [address] * Specimen to Pathology (08/21/2022 10:26 AM EDT) AP Specimen 08/21/2022 10:2 6 AM EDT 08/21/2022 10:26 AM EDT Narrative [facility] - 08/21/2022 10:26 AM EDT Specimen requisition ordered. ??Separate Pathology report to follow Roberth Lee MD PATHOLOGY/CYTOLOGY ORDERABLES Performing Organization Address [facility]/ZIP Co de Phone Number [facility] [place] [address] * SCAN DOC: IMPLANTABLE DEVICES (08/21/2022 12:00 AM EDT) Narrative 08/21/2022 12:00 AM EDT Ordered by an unspecified provider. 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 Tachycardia Tachycardia, unspecified Gastrostomy tube in place Dyspnea, unspecified type documented in this encounter Admitting Diagnoses Diagnosis Mandible fracture Closed fracture of unspecified site of mandible documented in this encounter Administered Medications Inactive Administered Medications - up to 3 most recent administrations Medication Order MAR Action Action Date Dose Rate Site amino acid 4.25% in dextrose 5% with electrolytes (Peripheral TPN) (Clinimix E 4.25/5) infusion Intravenous, at 42 mL/hr, CONTINUOUS, Starting on Sun08/30/22 at 1800, Until Sun08/31/22 at 1759, Peripheral TPN with Electrolytes. For 2-in-1 TPN (no lipid): Attach 0.2 micron filter set to primary set prior to infusion. For 2-in-1 TPNs with Y-sited lipids: Attach 1.2 micron filter set below Y-site. For 3-in-1 TPN (Lipid in TPN bag): Attach 1.2 micron filter set to primary set prior to infusion. Warning Vesicant/Irritant Medication Restarted 08/30/2022 9:55 PM EDT 42 mL/hr New Bag 08/30/2022 7:00 PM EDT 42 mL/hr ampicillin-sulbactam (Unasyn) 3 g vial attach to sodium chloride 0.9% 100 mL Mini-Bag Plus 3 g, Intravenous, EVERY 8 HOURS SCHEDULED, 15 doses, First dose on 08/21/22 at 2200, Last dose on 08/26/22 at 1400, Administer over 30 Minutes, Warning Vesicant/Irritant Medication , Indication for (Active or Suspected): Prophylaxis New Bag 08/26/2022 1:03 PM EDT 3 g 200 mL/hr New Bag 08/26/2022 6:01 AM EDT 3 g 200 mL/hr New Bag 08/25/2022 11:27 PM EDT 3 g 200 mL/hr bisacodyL (Dulcolax) suppository 10 mg 10 mg, Rectal, DAILY, First dose (after last modification) on Sun08/22/22 at 1215, Until Discontinued, Routine Given 08/27/2022 8:40 AM EDT 10 mg Given 08/26/2022 9:16 AM EDT 10 mg Given 08/25/2022 9:00 AM EDT 10 mg chlorhexidine (Peridex) 0.12 % solution Q-Care Kit 15 mL, Oral, 3 TIMES DAILY, First dose on Sun08/21/22 at 2115, Until Discontinued, Okay to swish and spit gently. For use in ICU/Critical care locations ONLY. Obtain kit from Floor Stock location. Scan CHG vial in the [employer] Q-Care Oral Care Kit , Routine Given 08/21/2022 10:18 PM EDT 15 mLs cyanocobalamin (Vitamin B-12) (Vitamin B-12) tablet 1,000 mcg 1,000 mcg, Per NG tube, NIGHTLY, First dose (after last modification) on Sun08/22/22 at 2100, Until Discontinued, Routine Given 08/29/2022 9:30 PM EDT 1,000 mcg Given 08/28/2022 10:11 PM EDT 1,000 mcg Given 08/27/2022 9:00 PM EDT 1,000 mcg cyanocobalamin (Vitamin B-12) (Vitamin B-12) tablet 1,000 mcg 1,000 mcg, Oral, NIGHTLY, First dose (after last modification) on Sun08/30/22 at 2100, Until Discontinued, Routine Given 09/05/2022 9:24 PM EDT 1,000 m cg cyanocobalamin (Vitamin B-12) (Vitamin B-12) tablet 1,000 mcg 1,000 mcg, Per G Tube, NIGHTLY, First dose (after last modification) on Sun09/06/22 at 2100, Until Discontinued, Routine Given 09/07/2022 8:15 PM EDT 1,000 m cg Given 09/06/2022 9:08 PM EDT 1,000 mcg cyclobenzaprine (Flexeril) tablet 5 mg 5 mg, Oral, 3 TIMES DAILY PRN, Starting on Sun08/25/22 at 1039, Until Sun09/06/22 at 0909, Muscle spasms, Routine Given 08/30/2022 1:32 AM EDT 5 mg Given 08/27/2022 11:24 PM EDT 5 mg Given 08/27/2022 6:07 PM EDT 5 mg cyclobenzaprine (Flexeril) tablet 5 mg 5 mg, Per G Tube, 3 TIMES DAILY PRN, Starting on Sun09/06/22 at 0908, Until Sun09/08/22 at 1620, Muscle spasms, Routine Given 09/07/2022 2:48 AM EDT 5 mg diazePAM (Valium) (5 mg/mL) injection solution 2.5 mg 2.5 mg, Intravenous, 2 TIMES DAILY PRN, Starting on Sun08/27/22 at 1232, Until Sun09/08/22 at 1620, Anxiety, Please note size of product compared to ordered dose., Routine Given 09/07/2022 9:52 AM EDT 2 .5 mg Given 08/29/2022 11:07 PM EDT 2.5 mg Given 08/29/2022 2:53 AM EDT 2.5 mg diphenhydrAMINE (Benadryl) (2.5 mg/mL) oral liquid 12.5 mg 12.5 mg, Oral, NIGHTLY PRN, Starting on Sun08/29/22 at 1808, Until Sun09/06/22 at 0909, Sleep, Routine Given 08/29/2022 6:32 PM EDT 12.5 mg diphenhydrAMINE (Benadryl) (2.5 mg/mL) oral liquid 12.5 mg 12.5 mg, Per G Tube, NIGHTLY PRN, Starting on Sun09/06/22 at 0908, Until Sun09/08/22 at 1347, Sleep, Routine Given 09/08/2022 12:42 AM EDT 12.5 mg enoxaparin (Lovenox) (30 mg/0.3 mL) subcutaneous injection 30 mg 30 mg, Subcutaneous, NIGHTLY, First dose (after last modification) on Sun08/22/22 at 2100, Until Discontinued, Routine Given 09/07/2022 8:15 PM EDT 30 mg Given 09/06/2022 9:09 PM EDT 30 mg Given 09/05/2022 9:25 PM EDT 30 mg folic acid (Vitamin B9) tablet 1,000 mcg 1,000 mcg, Per G Tube, NIGHTLY, 3 doses, First dose (after last modification) on Sun08/22/22 at 2100, Last dose on Sun08/24/22 at 2100, Routine Given 08/24/2022 9:29 PM EDT 1,000 mcg Given 08/23/2022 9:10 PM EDT 1,000 mcg Given 08/22/2022 8:33 PM EDT 1,000 mcg free water bolus 100 mL 100 mL, Per NG tube, 2 TIMES DAILY, First dose on 08/26/22 at 1430, Until Discontinued, Routine Given 08/30/2022 10:35 AM EDT 100 mLs Given 08/29/2022 9:00 PM EDT 100 mLs Given 08/29/2022 9:00 AM EDT 100 mLs hydrocortisone 1 % cream Topical (Top), 2 TIMES DAILY, First dose on Sun09/04/22 at 2100, Until Discontinued, Application Site: facial rash Given 09/07/2022 9:00 PM EDT 1 each Given 09/07/2022 9:53 AM EDT Given 09/06/2022 9:00 PM EDT 1 each HYDROmorphone (Dilaudid) (0.5 mg/0.5 mL) injection syringe 0.2 mg 0.2 mg, Intravenous, EVERY 2 HOURS PRN, Starting on Sun08/22/22 at 1033, Until Sun08/27/22 at 1231, Pain, mild pain (1-3), May give an additional 0.2 mg in 30 minutes once if pain not relieved., Routine Given 08/24/2022 4:18 PM EDT 0.2 mg Given 08/24/2022 10:27 AM EDT 0.2 mg HYDROmorphone (Dilaudid) (0.5 mg/0.5 mL) injection syringe 0.2 mg 0.2 mg, Intravenous, EVERY 4 HOURS PRN, Starting on Sun08/28/22 at 0508, Until Sun09/08/22 at 1620, Pain, For breakthrough pain, Routine Given 09/05/2022 1:06 PM EDT 0.2 mg Given 08/29/2022 12:15 AM EDT 0.2 mg Given 08/28/2022 2:54 PM EDT 0.2 mg HYDROmorphone (Dilaudid) (0.5 mg/0.5 mL) injection syringe 0.4 mg 0.4 mg, Intravenous, EVERY 30 MIN PRN, 5 doses, Starting on Sun08/21/22 at 2020, Until Sun08/22/22 at 0743, Pain, Routine Given 08/22/2022 3:27 AM EDT 0.4 mg Given 08/21/2022 11:24 PM EDT 0.4 mg Given 08/21/2022 8:30 PM EDT 0.4 mg HYDROmorphone (Dilaudid) (0.5 mg/0.5 mL) injection syringe 0.4 mg 0.4 mg, Intravenous, EVERY 2 HOURS PRN, Starting on Sun08/22/22 at 0745, Until Sun08/22/22 at 1033, Pain, Routine Given 08/22/2022 8:24 AM EDT 0.4 mg HYDROmorphone (Dilaudid) (0.5 mg/0.5 mL) injection syringe 0.4 mg 0.4 mg, Intravenous, EVERY 2 HOURS PRN, Starting on Sun08/22/22 at 1033, Until Sun08/27/22 at 1231, Pain, moderate pain (4-6), May give an additional 0.2 mg in 30 minutes once if pain not relieved., Routine Given 08/27/2022 8:33 AM EDT 0.4 mg Given 08/27/2022 5:49 AM EDT 0.4 mg Given 08/27/2022 2:51 AM EDT 0.4 mg HYDROmorphone (Dilaudid) (0.5 mg/0.5 mL) injection syringe 1 dose, Starting on Sun08/21/22 at 2019, Until Sun08/21/22 at 2030, Christiane Jones: [employer] override HYDROmorphone (Dilaudid) (1 mg/mL) in sodium chloride 0.9% 50 mL GREENHOUSE WORKER infusion syringe Intravenous, GREENHOUSE WORKER ONLY, Starting on Sun08/22/22 at 1545, Until Sun08/23/22 at 0805 New Syringe/Cartridge 08/22/2022 4:02 PM EDT 50 mg HYDROmorphone (Dilaudid) (1 mg/mL) injection syringe 0.6 mg 0.6 mg, Intravenous, EVERY 2 HOURS PRN, Starting on Sun08/22/22 at 1033, Until Sun08/23/22 at 1055, Pain, severe pain (7-10), May give an additional 0.2 mg in 30 minutes once if pain not relieved., Routine Given 08/22/2022 2:27 PM EDT 0.6 mg Given 08/22/2022 11:21 AM EDT 0.6 mg HYDROmorphone (Dilaudid) (1 mg/mL) injection syringe 1 mg 1 mg, Intravenous, ONCE, 1 dose, On Sun08/22/22 at 1545, Routine Given 08/22/2022 3:02 PM EDT 1 mg ibuprofen (Advil) tablet 600 mg 600 mg, Per G Tube, EVERY 6 HOURS PRN, Starting on Sun09/06/22 at 0908, Until Sun09/08/22 at 1620, Pain, Administer orally with milk or food to minimize GI irritation. Maximum dose of 3,200 mg from all sources in 24 hours, Routine iohexoL (Omnipaque) (350 mg/mL) solution 1-400 mL 1-400 mL, Other, ONCE, 1 dose, On Sun09/05/22 at 1145, For intra-procedural use by proceduralist., Angio/IR (Intra-Procedure), Routine Given 09/05/2022 11:45 AM EDT 30 mLs ketamine (Ketalar) (10 mg/mL) in sodium chloride 0.9% 100 mL infusion 0.18 mg/kg/hr ? 46.9 kg (0.8442 mL/hr, rounded to 0.8 mL/hr), Intravenous, CONTINUOUS, Starting on Sun08/22/22 at 1130, Until Sun08/24/22 at 0920, NOTE CONCENTRATION - 10 mg/mL New Bag 08/24/2022 6:50 AM EDT 0.18 mg/kg/hr 0.8 mL/hr Rate/Dose Verify 08/24/2022 2:34 AM EDT 0.18 mg/kg/hr 0.8 mL/hr Rate/Dose Verify 08/23/2022 8:45 PM EDT 0.18 mg/kg/hr 0.8 mL/hr ketorolac (Toradol) (15 mg/mL) injection 15 mg 15 mg, Intravenous, ONCE, 1 dose, On Sun09/05/22 at 1515, Routine Given 09/05/2022 2:30 PM EDT 15 mg ketorolac (Toradol) (15 mg/mL) injection 15 mg 15 mg, Intravenous, EVERY 6 HOURS, 3 doses, First dose on Sun09/05/22 at 1815, Last dose on Sun09/06/22 at 0615, Routine Given 09/06/2022 6:18 AM EDT 15 mg Given 09/06/2022 12:17 AM EDT 15 mg Given 09/05/2022 5:54 PM EDT 15 mg ketorolac (Toradol) (30 mg/mL) injection 15 mg 15 mg, Intravenous, EVERY 6 HOURS, 10 doses, First dose on Sun08/23/22 at 1300, Last dose on Sun08/25/22 at 1900, Routine Given 08/25/2022 6:15 PM EDT 15 mg Given 08/25/2022 1:03 PM EDT 15 mg Given 08/25/2022 6:15 AM EDT 15 mg lactated ringers infusion 1,000 mL, at 100 mL/hr, Intravenous, CONTINUOUS, Starting on Sun08/21/22 at 0645, Until Sun08/22/22 at 1042, Day of Surgery (Day of Procedure) Restarted 08/22/2022 2:10 AM EDT 100 mL/hr New Bag 08/21/2022 10:01 AM EDT Restarted 08/21/2022 8:06 AM EDT lactated ringers infusion 50 mL/hr, Intravenous, CONTINUOUS, Starting on Sun08/22/22 at 1130, Until Sun08/24/22 at 0919, Day of Surgery (Day of Procedure) Rate/Dose Verify 08/24/2022 2:34 AM EDT 50 mL/hr 50 mL/hr Rate/Dose Verify 08/23/2022 4:00 PM EDT 50 mL/hr 50 mL/h r Rate/Dose Verify 08/23/2022 8:00 AM EDT 50 mL/hr 50 mL/h r lactated ringers infusion 75 mL/hr, Intravenous, CONTINUOUS, Starting on Sun08/29/22 at 1900, Until Sun08/30/22 at 1800 New Bag 08/29/2022 6:32 PM EDT 75 mL/hr 75 mL/hr levothyroxine (Synthroid) injection 70 mcg 70 mcg, Intravenous, at 210 mL/hr, Administer over 1 Minutes, EVERY MORNING, First dose on Sun09/04/22 at 0700, Until Discontinued, Do not administer faster than 100 mcg per minute , Routine Given 09/06/2022 6:18 AM EDT 70 mcg 210 mL/hr Given 09/05/2022 6:13 AM EDT 70 mcg 210 mL/hr Given 09/04/2022 6:23 AM EDT 70 mcg 210 mL/hr levothyroxine (Synthroid) tablet 100 mcg 100 mcg, Per NG tube, DAILY, First dose on Sun08/22/22 at 0600, Until Discontinued, Routine Given 08/30/2022 5:35 AM EDT 100 mcg Given 08/29/2022 6:21 AM EDT 100 mcg Given 08/28/2022 6:04 AM EDT 100 mcg levothyroxine (Synthroid) tablet 100 mcg 100 mcg, Oral, DAILY, First dose (after last modification) on Sun08/31/22 at 0600, Until Discontinued, Give on own, 1 hour from other medications and/or meals, Routine Given 08/31/2022 10:45 AM EDT 100 mcg levothyroxine (Synthroid) tablet 100 mcg 100 mcg, Oral, EVERY MORNING, First dose on Sun09/07/22 at 0600, Until Discontinued, Administer on own to promote absorption, Routine Given 09/08/2022 6:14 AM EDT 100 mcg Given 09/07/2022 6:36 AM EDT 100 mcg lidocaine (Glydo) 2 % gel 6 mL 6 mL, Topical (Top), ONCE, 1 dose, On Sun08/22/22 at 1515, For intranasal numbing for NGT insertion , Routine Given 08/22/2022 2:53 PM EDT 6 mLs lidocaine (Lidoderm) 5% patch 2 patch 2 patch, Transdermal, Administer over 12 Hours, EVERY 24 HOURS, First dose on Sun08/21/22 at 2100, Until Discontinued, Apply patch(es) for 12 hours, and then remove for 12 hours., Routine Patch Applied 09/06/2022 9:08 PM EDT 2 patches 19- Surgical Site Patch Applied 09/03/2022 8:49 PM EDT 1 patch 20-Other (document in comment section) Patch Applied 09/02/2022 5:14 PM EDT 2 patches 09- Arm Upper (Left) LORazepam (Ativan) (2 mg/mL) injection 0.5 mg 0.5 mg, Intravenous, ONCE, 1 dose, On Sun08/30/22 at 1045, Routine Given 08/30/2022 10:40 AM EDT 0.5 mg LORazepam (Ativan) (2 mg/mL) injection 0.5 mg 0.5 mg, Intravenous, NIGHTLY PRN, Starting on Sun08/30/22 at 1634, Until Sun09/08/22 at 1620, Anxiety, Routine Given 09/07/2022 8:15 PM EDT 0.5 mg Given 09/06/2022 9:09 PM EDT 0.5 mg Given 09/05/2022 9:25 PM EDT 0.5 mg LORazepam (Ativan) tablet 0.5 mg 0.5 mg, Per NG tube, EVERY 6 HOURS PRN, Starting on Sun08/25/22 at 1650, Until Sun08/27/22 at 1233, Anxiety, Routine Given 08/26/2022 1:03 PM EDT 0.5 mg Given 08/26/2022 6:06 AM EDT 0.5 mg Given 08/25/2022 5:43 PM EDT 0.5 mg magnesium sulfate 2 g in sterile water 50 mL infusion 2 g, Intravenous, EVERY 2 HOURS PRN, Starting on Sun08/22/22 at 0746, Until Sun09/08/22 at 1620, Administer over 120 Minutes, Hypomagnesemia, Administer one 2 g IV bag, over 120 minutes for serum magnesium of 0.65 - 0.79 mMol/L. New Bag 08/22/2022 9:25 AM EDT 2 g 25 mL/hr magnesium sulfate 2 g in sterile water 50 mL infusion 2 g, Intravenous, EVERY 2 HOURS PRN, Starting on Sun08/22/22 at 0746, Until Sun09/08/22 at 1620, Administer over 120 Minutes, Hypomagnesemia, Administer two 2 g IV bag, each over 120 minutes for serum magnesium of 0.5 - 0.64 mMol/L. melatonin tablet 3 mg 3 mg, Per G Tube, DAILY AFTER DINNER, First dose (after last modification) on Sun08/22/22 at 2245, Until Discontinued, Routine Given 08/29/2022 8:00 PM EDT 3 mg Given 08/28/2022 10:11 PM EDT 3 mg Given 08/27/2022 9:00 PM EDT 3 mg melatonin tablet 6 mg 6 mg, Oral, DAILY AFTER DINNER, First dose (after last modification) on Sun08/30/22 at 2000, Until Discontinued, Routine Given 09/05/2022 9:25 PM EDT 6 mg melatonin tablet 6 mg 6 mg, Per G Tube, DAILY AFTER DINNER, First dose (after last modification) on Sun09/06/22 at 2000, Until Discontinued, Routine ondansetron (pf) (Zofran) (2 mg/mL) injection 4 mg 4 mg, Intravenous, EVERY 8 HOURS PRN, Starting on Sun08/21/22 at 2021, Until Sun09/08/22 at 1620, Nausea, Vomiting Given 09/05/2022 3:43 PM EDT 4 mg Given 08/29/2022 5:11 PM EDT 4 mg oxyCODONE (Roxicodone) tablet 10-15 mg 10-15 mg, Oral, EVERY 4 HOURS PRN, Starting on Sun08/23/22 at 1055, Until Sun08/28/22 at 0053, Pain, severe pain (7-10), Initial dose 10mg. If pain control not adequate in 30 minutes, give additional 5mg., Routine Given 08/24/2022 12:48 AM EDT 10 m g oxyCODONE (Roxicodone) tablet 10-15 mg 10-15 mg, Oral, EVERY 4 HOURS PRN, Starting on Sun08/30/22 at 1507, Until Sun09/06/22 at 0909, Pain, severe pain (7-10), Initial dose 10mg. If pain control not adequate in 30 minutes, give additional 5mg., Routine Given 09/06/2022 8:20 AM EDT 15 mg Given 09/05/2022 9:24 PM EDT 15 mg Given 09/05/2022 5:54 PM EDT 15 mg oxyCODONE (Roxicodone) tablet 10-15 mg 10-15 mg, Per G Tube, EVERY 4 HOURS PRN, Starting on Sun09/06/22 at 0909, Until Sun09/08/22 at 1620, Pain, severe pain (7-10), Initial dose 10mg. If pain control not adequate in 30 minutes, give additional 5mg., Routine Given 09/08/2022 4:40 AM EDT 10 mg Given 09/08/2022 12:42 AM EDT 10 mg Given 09/07/2022 8:15 PM EDT 10 mg oxyCODONE (Roxicodone) tablet 5-10 mg 5-10 mg, Per G Tube, EVERY 3 HOURS PRN, Starting on Sun08/22/22 at 0741, Until Sun08/23/22 at 1057, Pain, Give 5 mg for pain 1-5; Give 10 mg for pain 6-10, Routine Given 08/23/2022 9:08 AM EDT 5 mg oxyCODONE (Roxicodone) tablet 5-10 mg 5-10 mg, Oral, EVERY 4 HOURS PRN, Starting on Sun08/23/22 at 1055, Until Sun08/28/22 at 0053, Pain, moderate pain (4-6), Initial dose 5mg. If pain control not adequate in 30 minutes, give additional 5mg., Routine Given 08/23/2022 11:03 AM EDT 10 m g oxyCODONE (Roxicodone) tablet 5-10 mg 5-10 mg, Per G Tube, EVERY 4 HOURS PRN, Starting on Sun08/28/22 at 0052, Until Sun08/30/22 at 1508, Pain, moderate pain (4-6), Initial dose 5mg. If pain control not adequate in 30 minutes, give additional 5mg., Routine Given 08/28/2022 1:16 AM EDT 5 mg oxyCODONE (Roxicodone) tablet 5-10 mg 5-10 mg, Per G Tube, EVERY 4 HOURS PRN, Starting on Sun09/06/22 at 0909, Until Sun09/08/22 at 1620, Pain, moderate pain (4-6), Initial dose 5mg. If pain control not adequate in 30 minutes, give additional 5mg., Routine pantoprazole (Protonix) injection 40 mg 40 mg, Intravenous, DAILY, First dose on Sun08/22/22 at 0900, Until Discontinued, Reconstitute with 10 mL of normal saline to a concentration of 4 mg/mL and inject slowly over 2 minutes. Given 08/22/2022 8:29 AM EDT 40 mg pantothenic Ac-Min Oil-Pet,Hyd (Aquaphor) 41 % ointment 1 each 1 each, Topical (Top), 2 TIMES DAILY, First dose on Sun08/21/22 at 2115, Until Discontinued, Clean incision with sterile saline or half strength hydrogen peroxide and apply aquaphor incision twice daily. Given 09/08/2022 8:33 AM EDT 1 e ach Given 09/07/2022 9:04 PM EDT 1 each Given 09/07/2022 9:53 AM EDT 1 each pantothenic Ac-Min Oil-Pet,Hyd (Aquaphor) 41 % ointment Topical (Top), 2 TIMES DAILY, First dose on Sun09/04/22 at 0900, Until Discontinued, To right leg and chin skin grafts. To right thigh skin graft donor site. Given 09/08/2022 8:32 AM EDT Given 09/07/2022 9:02 PM EDT 1 each Given 09/07/2022 9:52 AM EDT PHENobarbitaL (Luminal) (130 mg/mL) injection 60 mg 60 mg, Intravenous, ONCE, 1 dose, On Sun08/22/22 at 1500, Maximum administration rate: 100 mg/min Administer as a slow IV push at a rate not to exceed 50 mg/min. Given 08/22/2022 2:27 PM EDT 60 mg PHENobarbitaL (Luminal) (130 mg/mL) injection 84.5 mg 84.5 mg (rounded from 84.42 mg = 1.8 mg/kg/dose ? 46.9 kg), Intravenous, EVERY 30 MIN PRN, 2 doses, Starting on Sun08/22/22 at 1040, Until Sun08/23/22 at 1054, Agitation, Administer as slow IV Push at a rate no more than 50 mg/minute. Hold for RASS Less than -1: Not fully alert, but has sustained (more than 10 seconds) awakening, with eye contact, to voice. Hold for HR Less than 60 bpm. Hold for SBP Less than 90 mmHg. Administer as a slow IV push at a rate not to exceed 50 mg/min., Routine Given 08/22/2022 11:19 AM EDT 84.5 mg PHENobarbitaL (Luminal) tablet 24.3 mg 24.3 mg (rounded from 22.512 mg = 0.48 mg/kg/dose ? 46.9 kg), Oral, 2 TIMES DAILY, 2 doses, First dose on Sun08/22/22 at 1100, Last dose on Sun08/22/22 at 2100, Hold for RASS Less than -1: Not fully alert, but has sustained (more than 10 seconds) awakening, with eye contact, to voice. Hold for HR Less than 60 bpm. Hold for SBP Less than 90 mmHg., Routine Given 08/22/2022 8:32 PM EDT 24.3 mg polyethylene glycoL (Miralax) packet 17 g 17 g, Per G Tube, DAILY PRN, Starting on Sun08/22/22 at 0741, Until Sun08/30/22 at 1508, Constipation, Give scheduled bowel meds, then start with Miralax, and then bisacodyl suppository in order to achieve one bowel movement every 48 hours without straining., Routine Given 08/26/2022 1:04 PM EDT 17 g polyethylene glycoL (Miralax) packet 17 g 17 g, Per G Tube, DAILY PRN, Starting on Sun09/06/22 at 0909, Until Sun09/08/22 at 1620, Constipation, Give scheduled bowel meds, then start with Miralax, and then bisacodyl suppository in order to achieve one bowel movement every 48 hours without straining., Routine potassium chloride ER (Klor-Con M) crystal tablet 40 mEq 40 mEq, Per G Tube, ONCE, 1 dose, On Afia 08/24/22 at 0645, Potassium chloride ER tablet preferred; may give liquid if unable to swallow ER tablet. potassium chloride ER particle/crystal tablets (Klor-Con M) may be broken in half and each half swallowed separately. Tablets can be dissolved in ~4 ounces of water; allow ~2 minutes to dissolve, stir well and drink immediately. Do not crush, chew, or suck on tablet., Routine Given 08/24/2022 6:45 AM EDT 40 mEq prochlorperazine (Compazine) (5 mg/mL) injection 10 mg 10 mg, Intravenous, EVERY 6 HOURS PRN, Starting on Sun08/21/22 at 2021, Until Sun09/08/22 at 1620, Nausea, Vomiting, Administer Zofran first, then Compazine, Routine Given 08/29/2022 10:20 PM EDT 10 mg propofoL (Diprivan) (10 mg/mL) infusion 0-50 mcg/kg/min ? 46.9 kg (0-14.07 mL/hr, rounded to 0-14.1 mL/hr), Intravenous, CONTINUOUS, Starting on Sun08/22/22 at 1745, Until Sun08/23/22 at 0740, Titrate to sedation level of RASS Goal (-)1 to 0 . Start at 20 mcg/kg/min. Increase/decrease 10 mcg/kg/min every 3 minutes until goal reached. Once stable, reassess patient every 30 minutes. Do not exceed 50 mcg/kg/minute. Change rate only after assessing and documenting RASS. Reassess sedation scores within 30 minutes after every rate change. If under sedated, increase rate by 10 mcg/kg/min. If over sedated, hold sedative until target RASS (-)1 to 0 achieved and then restart at 50% of previous rate. Call warehouse record clerk if goal not achieved at maximum rate. If SAT is ordered and if patient meets criteria for Spontaneous Awakening Trial, titrate per protocol., Routine Rate/Dose Change 08/22/2022 6:39 PM EDT 30 mcg/kg/min 8.4 mL/hr New Bag 08/22/2022 6:17 PM EDT 20 mcg/kg/min 5.6 mL/hr protein powder 1 Scoop, Per NG tube, DAILY, First dose on Sun08/23/22 at 1345, Until Discontinued, Routine Given 08/30/2022 10:35 AM EDT 1 Scoop Given 08/29/2022 9:00 AM EDT 1 Scoop Given 08/28/2022 9:00 AM EDT 1 Scoop protein powder 1 Scoop, Per G Tube, 2 TIMES DAILY, First dose on Sun09/06/22 at 1000, Until Discontinued, Routine Given 09/08/2022 9:00 AM EDT 1 Scoop Given 09/07/2022 5:00 PM EDT 1 Scoop Given 09/07/2022 9:00 AM EDT 1 Scoop scopolamine (Transderm-Scop) 1 mg over 3 days patch 1 patch 1 patch, Transdermal, Administer over 72 Hours, EVERY 72 HOURS, First dose on Sun09/06/22 at 1430, Until Discontinued, Routine Patch Applied 09/06/2022 4:55 PM EDT 1 patch 01- Ear Behind (Left) scopolamine (Transderm-Scop) 1 mg patch Patch Verification Transdermal, 2 TIMES DAILY, First dose on Sun09/07/22 at 0145, Until Discontinued, Verify scopolamine 1 mg patch. sodium chloride 0.9 % (flush) (BD PosiFlush Normal Saline 0.9) flush 5-20 mL 5-20 mL, Intravenous, EVERY 1 MIN PRN, Starting on Sun08/21/22 at 0618, Until Sun09/05/22 at 1302, flush, Flush pertains to all indwelling lines. Flush per protocol found in the job aid using the link provided on this medication record., Day of Surgery (Day of Procedure), Routine Given 08/30/2022 8:25 PM EDT 10 mLs Given 08/27/2022 9:02 PM EDT 5 mLs Given 08/25/2022 8:07 PM EDT 5 mLs sodium chloride 0.9% infusion 100 mL/hr, Intravenous, CONTINUOUS, Starting on Sun08/21/22 at 2115, Until Sun08/22/22 at 0137 New Bag 08/21/2022 9:05 PM EDT 100 mL/hr 100 mL/hr thiamine (Vitamin B-1) tablet 100 mg 100 mg, Per G Tube, NIGHTLY, 3 doses, First dose (after last modification) on Sun08/22/22 at 2100, Last dose on Sun08/24/22 at 2100, Routine Given 08/24/2022 9:29 PM EDT 100 mg Given 08/23/2022 9:10 PM EDT 100 mg Given 08/22/2022 8:34 PM EDT 100 mg TPN Adult Peripheral, Intravenous, at 100 mL/hr, Continuous (TPN), 1 dose, First dose on Sun08/31/22 at 1800, Last dose on Sun08/31/22 at 1800, Administer over 24 Hours New Bag 08/31/2022 5:29 PM EDT 100 mL/hr TPN Adult Peripheral, Intravenous, at 100 mL/hr, Continuous (TPN), 3 doses, First dose (after last reorder) on Sun09/01/22 at 1800, Last dose on Sun09/03/22 at 1800, Administer over 24 Hours New Bag 09/03/2022 5:19 PM EDT 100 mL /hr New Bag 09/02/2022 5:15 PM EDT 100 mL/hr New Bag 09/01/2022 6:09 PM EDT 100 mL/hr TPN Adult Peripheral, Intravenous, at 100 mL/hr, Continuous (TPN), 5 doses, First dose (after last reorder) on Sun09/04/22 at 1800, Last dose on Sun09/08/22 at 1800, Administer over 24 Hours New Bag 09/05/2022 5:10 PM EDT 100 mL /hr New Bag 09/04/2022 5:25 PM EDT 100 mL/hr tube feeding diet 240 mL, Per NG tube, CONTINUOUS, Starting on Sun08/22/22 at 2100, Until Sun08/23/22 at 1257, Administer flushes and check residuals per policy, Which tube feed product? Impact Peptide 1.5, Strength: FULL Strength, Initial Rate: (mL/hr): 10 Rate/Dose Verify 08/23/2022 8:00 AM EDT 1 0 mL/hr Rate/Dose Verify 08/23/2022 5:35 AM EDT 10 mL/h r Rate/Dose Verify 08/23/2022 12:00 AM EDT 10 mL/ hr tube feeding diet 940 mL, Per NG tube, CONTINUOUS, Starting on Sun08/23/22 at 1345, Until Sun08/24/22 at 1505, Administer flushes and check residuals per policy, Which tube feed product? Impact Peptide 1.5, Strength: FULL Strength, Initial Rate: (mL/hr): 20, Advance by: (mL): 10, Advance every: Q8H, Goal final rate: (mL/hr): 47 Rate/Dose Change 08/24/2022 10:03 AM EDT 47 mL/hr Rate/Dose Change 08/24/2022 2:34 AM EDT 40 mL/h r Rate/Dose Verify 08/24/2022 12:00 AM EDT 30 mL/ hr tube feeding diet 235 mL, Per NG tube, 4 TIMES DAILY, First dose (after last modification) on Afia 08/24/22 at 1700, Until Discontinued, Administer flushes and check residuals per policy, Which tube feed product? Impact Peptide 1.5, Strength: FULL Strength, Do you want to Hold Tube Feed? No New Bag 08/26/2022 1:00 PM EDT 235 mLs New Bag 08/26/2022 9:00 AM EDT 235 mLs New Bag 08/25/2022 9:00 PM EDT 235 mLs tube feeding diet 275 mL, Per NG tube, at 275 mL/hr, 4 TIMES DAILY, First dose on 08/26/22 at 1430, Until Discontinued, Administer flushes and check residuals per policy, Which tube feed product? Impact Peptide 1.5, Goal final rate: (mL/hr): 275, Additional Information (if any): please flush with 60 ml free water pre & post each feed for tube patency and hydration New Bag 08/30/2022 10:45 AM EDT 275 mLs 275 mL/hr New Bag 08/29/2022 8:30 PM EDT 275 mLs 275 mL/hr Continued Bag 08/29/2022 1:00 PM EDT 275 mLs 275 mL/hr tube feeding diet 300 mL, Per G Tube, at 300 mL/hr, 4 TIMES DAILY, First dose on Sun09/06/22 at 1000, Until Discontinued, Administer flushes and check residuals per policy, Which tube feed product? Compleat Standard 1.4, Initial Rate: (mL/hr): 100, Advance by: (mL): 100, Advance every: Q4H, Additional Information (if any): give first bolus feed as 100 mL over 1 hour, second feed at 200 mL over 1 hour, third feed at 300 mL over 1 hour New Bag 09/08/2022 1:00 PM EDT 300 mLs 300 mL/hr New Bag 09/08/2022 8:47 AM EDT 300 mLs 300 mL/hr New Bag 09/07/2022 9:00 PM EDT 300 mLs 300 mL/hr documented in this encounter Active and Recently Administered Medications Times are shown in EDT. Scheduled Medication Order 09/06/2022 09/07/202209/08/2022 cyanocobalamin (Vitamin B-12) (Vitamin B-12) tablet 1,000 mcg 1,000 mcg, Per G Tube, NIGHTLY, First dose (after last modification) on Sun09/06/22 at 2100, Until Discontinued, Routine 2107 (Given - Provider: Jada Chávez RN) 2014 (Given - Provider: Jada Chávez RN) enoxaparin (Lovenox) (30 mg/0.3 mL) subcutaneous injection 30 mg 30 mg, Subcutaneous, NIGHTLY, First dose (after last modification) on Sun08/22/22 at 2100, Until Discontinued, Routine 2108 (Given - Provider: Jada Chávez RN) 2014 (Given - Provider: Jada Chávez RN) hydrocortisone 1 % cream Topical (Top), 2 TIMES DAILY, First dose on Sun09/04/22 at 2100, Until Discontinued, Application Site: facial rash 0824 (Given - Provider: Suzette Verdugo LPN)2099 (Given - Provider: Jada Chávez RN) 0953 (Given - Provider: Per Meza RN)2099 (Given - Provider: Jada Chávez RN) 0900 (Not Given - Provider: Didier Perry RN - Reason: Patient/family refused) ketorolac (Toradol) (15 mg/mL) injection 15 mg (COMPLETED) 15 mg, Intravenous, EVERY 6 HOURS, 3 doses, First dose on Sun09/05/22 at 1815, Last dose on Sun09/06/22 at 0615, Routine 7 (Given - Provider: Araceli Velasco RN)06 (Given - Provider: Araceli Velasco, FUENTES) levothyroxine (Synthroid) injection 70 mcg (CANCELED) 70 mcg, Intravenous, at 210 mL/hr, Administer over 1 Minutes, EVERY MORNING, First dose on Sun09/04/22 at 0700, Until Discontinued, Do not administer faster than 100 mcg per minute , Routine 617 (Given - Provider: Araceli Velasco, FUENTES) levothyroxine (Synthroid) tablet 100 mcg 100 mcg, Oral, EVERY MORNING, First dose on Sun09/07/22 at 0600, Until Discontinued, Administer on own to promote absorption, Routine 0636 (Given - Provider: Jada Chávez RN) 06 (Given - Provider: Jada Chávez RN) lidocaine (Lidoderm) 5% patch 2 patch 2 patch, Transdermal, Administer over 12 Hours, EVERY 24 HOURS, First dose on Sun08/21/22 at 2100, Until Discontinued, Apply patch(es) for 12 hours, and then remove for 12 hours., Routine 2107 (Patch Applied - Provider: Jada Chávez RN) 599 (Patch Removed - Provider: Jada Chávez RN)2099 (Not Given - Provider: Jada Chávez RN - Reason: Patient/family refused) melatonin tablet 6 mg 6 mg, Per G Tube, DAILY AFTER DINNER, First dose (after last modification) on Sun09/06/22 at 1999, Until Discontinued, Routine 1999 (Not Given - Provider: Jada Chávez RN - Reason: Patient/family refused) 1999 (Not Given - Provider: Jada Chávez RN - Reason: Patient/family refused) pantothenic Ac-Min Oil-Pet,Hyd (Aquaphor) 41 % ointment 1 each 1 each, Topical (Top), 2 TIMES DAILY, First dose on Sun08/21/22 at 2115, Until Discontinued, Clean incision with sterile saline or half strength hydrogen peroxide and apply aquaphor incision twice daily. 08 (Given - Provider: Suzette Verdugo LPN)2099 (Given - Provider: Jada Chávez RN) 952 (Given - Provider: Per Meza RN)2103 (Given - Provider: Jada Chávez RN) 08 (Given - Provider: Didier Perry RN) pantothenic Ac-Min Oil-Pet,Hyd (Aquaphor) 41 % ointment Topical (Top), 2 TIMES DAILY, First dose on Sun09/04/22 at 0900, Until Discontinued, To right leg and chin skin grafts. To right thigh skin graft donor site. 0819 (Given - Provider: Suzette Verdugo LPN)2099 (Given - Provider: Jada Chávez RN) 0952 (Given - Provider: Per Meza RN)2101 (Given - Provider: Jada Chávez RN) 0832 (Given - Provider: Didier Perry RN) protein powder 1 Scoop, Per G Tube, 2 TIMES DAILY, First dose on Sun09/06/22 at 1000, Until Discontinued, Routine 1209 (Given - Provider: Theresa Merino RN)1700 (Given - Provider: Theresa Merino RN) 0900 (Given - Provider: Per Meza, RN)1700 (Given - Provider: Per Meza, RN) 0900 (Given - Provider: Didier Perry RN) scopolamine (Transderm-Scop) 1 mg over 3 days patch 1 patch(Linked Group 1) 1 patch, Transdermal, Administer over 72 Hours, EVERY 72 HOURS, First dose on Sun09/06/22 at 1430, Until Discontinued, Routine 1655 (Patch Applied - Provider: Theresa Merino RN) 1330 (Due: Patch Removed - Provider: Automatic Discharge Provider - Comment: Time automatically adjusted from order being discontinued) scopolamine (Transderm-Scop) 1 mg patch Patch Verification(Linked Group 1) Transdermal, 2 TIMES DAILY, First dose on Sun09/07/22 at 0145, Until Discontinued, Verify scopolamine 1 mg patch. 0145 (Patch (dose and location) verified - Provider: Jada Chávez RN)0900 (Patch (dose and location) verified - Provider: Per Meza RN)2100 (Patch (dose and location) verified - Provider: Jada Chávez RN) 0900 (Patch (dose and location) verified - Provider: Didier Perry RN - Comment: behind left ear) tube feeding diet 300 mL, Per G Tube, at 300 mL/hr, 4 TIMES DAILY, First dose on Sun09/06/22 at 1000, Until Discontinued, Administer flushes and check residuals per policy, Which tube feed product? Compleat Standard 1.4, Initial Rate: (mL/hr): 100, Advance by: (mL): 100, Advance every: Q4H, Additional Information (if any): give first bolus feed as 100 mL over 1 hour, second feed at 200 mL over 1 hour, third feed at 300 mL over 1 hour 1000 (Hold - Provider: Theresa Merino RN - Reason: Medication not available)1300 (New Bag - Provider: Theresa Merino, RN)1700 (New Bag - Provider: Theresa Merino, RN)2100 (Hold - Provider: Jada Chávez RN - Reason: See comment - Comment: Greater than 90 residual, pt stomach is feeling full, provider page and aware) 0900 (New Bag - Provider: Per Meza, RN)1300 (New Bag - Provider: Per Meza, RN)1700 (New Bag - Provider: Per Meza, RN)2100 (New Bag - Provider: Jada Chávez, FUENTES) 0847 (New Bag - Provider: Didier Perry, FUENTES)1300 (New Bag - Provider: Per Meza, FUENTES) PRN Medication Order 09/06/2022 09/07/2022 09/08/2022 cyclobenzaprine (Flexeril) tablet 5 mg 5 mg, Per G Tube, 3 TIMES DAILY PRN, Starting on Sun09/06/22 at 0908, Until Sun09/08/22 at 1620, Muscle spasms, Routine 0248 (Given - Provider: Jada Chávez RN) diazePAM (Valium) (5 mg/mL) injection solution 2.5 mg 2.5 mg, Intravenous, 2 TIMES DAILY PRN, Starting on Sun08/27/22 at 1232, Until Sun09/08/22 at 1620, Anxiety, Please note size of product compared to ordered dose., Routine 0952 (Given - Provider: Per Meza RN) diphenhydrAMINE (Benadryl) (2.5 mg/mL) oral liquid 12.5 mg (CANCELED) 12.5 mg, Per G Tube, NIGHTLY PRN, Starting on Sun09/06/22 at 0908, Until Sun09/08/22 at 1347, Sleep, Routine 0042 (Given - Provider: Jada Chávez RN) HYDROmorphone (Dilaudid) (0.5 mg/0.5 mL) injection syringe 0.2 mg 0.2 mg, Intravenous, EVERY 4 HOURS PRN, Starting on 08/28/22 at 0508, Until Sun09/08/22 at 1620, Pain, For breakthrough pain, Routine ibuprofen (Advil) tablet 600 mg 600 mg, Per G Tube, EVERY 6 HOURS PRN, Starting on Sun09/06/22 at 0908, Until Sun09/08/22 at 1620, Pain, Administer orally with milk or food to minimize GI irritation. Maximum dose of 3,200 mg from all sources in 24 hours, Routine LORazepam (Ativan) (2 mg/mL) injection 0.5 mg 0.5 mg, Intravenous, NIGHTLY PRN, Starting on Sun08/30/22 at 1634, Until Sun09/08/22 at 1620, Anxiety, Routine 2108 (Given - Provider: Jada Chávez, FUENTES) 2014 (Given - Provider: Jada Chávez RN) magnesium sulfate 2 g in sterile water 50 mL infusion(Linked Group 2) 2 g, Intravenous, EVERY 2 HOURS PRN, Starting on Sun08/22/22 at 0746, Until Sun09/08/22 at 1620, Administer over 120 Minutes, Hypomagnesemia, Administer one 2 g IV bag, over 120 minutes for serum magnesium of 0.65 - 0.79 mMol/L. magnesium sulfate 2 g in sterile water 50 mL infusion(Linked Group 2) 2 g, Intravenous, EVERY 2 HOURS PRN, Starting on Sun08/22/22 at 0746, Until Sun09/08/22 at 1620, Administer over 120 Minutes, Hypomagnesemia, Administer two 2 g IV bag, each over 120 minutes for serum magnesium of 0.5 - 0.64 mMol/L. ondansetron (pf) (Zofran) (2 mg/mL) injection 4 mg 4 mg, Intravenous, EVERY 8 HOURS PRN, Starting on Sun08/21/22 at 2021, Until Sun09/08/22 at 1620, Nausea, Vomiting oxyCODONE (Roxicodone) tablet 10-15 mg (CANCELED) 10-15 mg, Oral, EVERY 4 HOURS PRN, Starting on Sun08/30/22 at 1507, Until Sun09/06/22 at 0909, Pain, severe pain (7-10), Initial dose 10mg. If pain control not adequate in 30 minutes, give additional 5mg., Routine 08 (Given - Provider: Suzette Verdugo LPN) oxyCODONE (Roxicodone) tablet 10-15 mg(Linked Group 3) 10-15 mg, Per G Tube, EVERY 4 HOURS PRN, Starting on Sun09/06/22 at 0909, Until Sun09/08/22 at 1620, Pain, severe pain (7-10), Initial dose 10mg. If pain control not adequate in 30 minutes, give additional 5mg., Routine 1223 (Given - Provider: Theresa Merino RN)1952 (Given - Provider: Jada Chávez RN) 246 (Given - Provider: Jada Chávez RN)0647 (Given - Provider: Jada Chávez RN)1058 (Given - Provider: Per Meza, RN)1604 (Given - Provider: Per Meza, RN)2014 (Given - Provider: Jada Chávez RN) 41 (Given - Provider: Jada Chávez RN)0440 (Given - Provider: Jada Chávez RN) oxyCODONE (Roxicodone) tablet 5-10 mg(Linked Group 3) 5-10 mg, Per G Tube, EVERY 4 HOURS PRN, Starting on Sun09/06/22 at 0909, Until Sun09/08/22 at 1620, Pain, moderate pain (4-6), Initial dose 5mg. If pain control not adequate in 30 minutes, give additional 5mg., Routine 1223 (See Alternative - Provider: Theresa Merino RN)1952 (See Alternative - Provider: Jada Chávez RN) 246 (See Alternative - Provider: Jada Chávez RN)06 (See Alternative - Provider: Jada Chávez RN)1058 (See Alternative - Provider: Per Meza, RN)1604 (See Alternative - Provider: Per Meza, RN)2014 (See Alternative - Provider: Jada Chávez, FUENTES) 41 (See Alternative - Provider: Jada Chávez RN)0440 (See Alternative - Provider: Jada Chávez RN) polyethylene glycoL (Miralax) packet 17 g 17 g, Per G Tube, DAILY PRN, Starting on Sun09/06/22 at 0909, Until Sun09/08/22 at 1620, Constipation, Give scheduled bowel meds, then start with Miralax, and then bisacodyl suppository in order to achieve one bowel movement every 48 hours without straining., Routine prochlorperazine (Compazine) (5 mg/mL) injection 10 mg 10 mg, Intravenous, EVERY 6 HOURS PRN, Starting on Sun08/21/22 at 2021, Until Sun09/08/22 at 1620, Nausea, Vomiting, Administer Zofran first, then Compazine, Routine Linked Groups Order Group 1: scopolamine (Transderm-Scop) 1 mg over 3 days patch 1 patchJump to med 1 patch, Transdermal, Administer over 72 Hours, EVERY 72 HOURS, First dose on Sun09/06/22 at 1430, Until Discontinued, Routine And scopolamine (Transderm-Scop) 1 mg patch Patch VerificationJump to med Transdermal, 2 TIMES DAILY, First dose on Sun09/07/22 at 0145, Until Discontinued, Verify scopolamine 1 mg patch. Group 2: magnesium sulfate 2 g in sterile water 50 mL infusionJump to med 2 g, Intravenous, EVERY 2 HOURS PRN, Starting on Sun08/22/22 at 0746, Until Sun09/08/22 at 1620, Administer over 120 Minutes, Hypomagnesemia, Administer one 2 g IV bag, over 120 minutes for serum magnesium of 0.65 - 0.79 mMol/L. Or magnesium sulfate 2 g in sterile water 50 mL infusionJump to med 2 g, Intravenous, EVERY 2 HOURS PRN, Starting on Sun08/22/22 at 0746, Until Sun09/08/22 at 1620, Administer over 120 Minutes, Hypomagnesemia, Administer two 2 g IV bag, each over 120 minutes for serum magnesium of 0.5 - 0.64 mMol/L. Group 3: oxyCODONE (Roxicodone) tablet 5-10 mgJump to med 5-10 mg, Per G Tube, EVERY 4 HOURS PRN, Starting on Sun09/06/22 at 0909, Until Sun09/08/22 at 1620, Pain, moderate pain (4-6), Initial dose 5mg. If pain control not adequate in 30 minutes, give additional 5mg., Routine Or oxyCODONE (Roxicodone) tablet 10-15 mgJump to med 10-15 mg, Per G Tube, EVERY 4 HOURS PRN, Starting on Sun09/06/22 at 0909, Until Sun09/08/22 at 1620, Pain, severe pain (7-10), Initial dose 10mg. If pain control not adequate in 30 minutes, give additional 5mg., Routine documented in this encounter Care Teams Supervisor Pipeline Relationship Specialty Start Date End Date Dev, Tita Butt APRN [address] [place] [address] PCP - General Internal Medicine 05/15/22 documented as of this encounter
--- OUTSIDE RECORDS SUMMARY | 2023-12-08 19:58 | XMS_ITS | Encounter Summary ---
Author Organization [facility] [place] [address] Care Team Providers Care Casualty Claim Adjuster Name Role Phone Dev, Tita Butt APRN Primary Care Provider [phone]- [phone] Reason for Visit * Auth/Cert (Routine) Specialty Diagnoses / Procedures Referred By Shirley t Referred To Contact Diagnoses Personal history [...] MICROVASC, FIBULA (WRVU 45.43) Roberth Lee MD [facility] [place] [address] [facility] Referral ID Status Reason Start Date Expiration Date Visits Re quested Visits Authorized [id number] 1 1 Encounter Details Date Type Department Care Team (Late st Contact Info) Description 09/05/2022 10:34 AM ED[place] [id number] Mat Bryant MD [facility] DR [facility] [address] Latesha Lundberg CRNA [facility] [place] [address] Anesthesia Record Procedure Summary Procedure Name Responsible Anesthesiologist Anesthesia Start Time Anesthesia Stop Time PERCUTANEOUS GASTROSTOMY Mat Bryant MD 09/05/22 1034 09/05/22 1216 Events Date Time Event Comment 09/05/2022 0938 1034 AN Verify 1034 Start 1034 An Start Data 1045 An Induction 1046 An Intubation 1047 Anesthesia Ready 1200 Extubation/LMA Out 1200 Quick Note Mepilex placed over stoma by Dr Bryant 1209 an stop data 1216 Recovery or ICU Handoff Yumi ent care was transferred to the destination unit staff after review of the patient's medical history, current anesthetic/surgical status and plan, according to the Provider Handoff Checklist. 1216 Stop Meds Name Total Propofol 110 mg PHENYLephrine 440 mcg Ondansetron 4 mg Sugammadex 100 mg Rocuronium 20 mg ceFAZolin 2 g Glucagon 1 mg Lactated Ringers 400 mL * Agents Name O2 * Blood No blood administrations on file. Lines, Drains, and Airways Type Details Placement Removal Incision 08/21/22; 09; (tracheostomy) 08/21/22 0926 by Terri Cortez RN Incision 08/21/22; 0937; Alexander t, lower; leg 08/21/22 0937 by Terri Cortez RN Incision 08/21/22; 1000; throat 08/21/22 1000 by Itzel Castillo RN Incision 08/21/22; 1739; Righ t, anterior; thigh; Skin graft site 08/21/22 1739 by Itzel Castillo, FUENTES Trach Surgical Airway Styl e: Uncuffed; Size: 4 mm; Removal Date: 09/05/22; Removal Time: 1200 08/28/22 1616 by Sandra Bergman RCP 09/05/22 1200 by Latesha Lundberg CRNA (RETIRED) PICC Line - Single Lumen 09/02/22; 1633; basilic vein (medial side of arm), right; pressure injectable catheter; 4 Fr; 0 cm; 36 cm; 36 cm; placement verified by x-ray; superior vena cava; anthony c; distraction, intradermal injection, appears comfortable, tolerated well; 0; 09/08/22; 1224 09/02/22 1633 by Anthony Rashid RN 09/08/22 1224 by Ana Luisa Velasquez RN ETT Mask Ventilation: Ea sy (1); ETT Type: Armored; ETT Size: 5 mm; Notes: Asleep, Pre-O2; Inserted by: Dr Bryant; Removal Date: 09/05/22; Removal Time: 1200 09/05/22 1046 by Latesha Lundberg CRNA 09/05/22 1200 by Latesha Lundberg CRNA Enterostomy Tube 09/05/22; 1155; gastrostomy tube with balloon; feeding; 16F LOT# [id number] MD Oliver; 11/09/22; 1120 09/05/22 1155 by Ilda Solo, RN 11/09/22 1120 by Katina Gonzales, RN documented in this encounter Social History Tobacco [...] OR Notes * Anesthesia Postprocedure Evaluation - Mat Bryant MD - 09/05/2022 1:58 PM EDT Department of Anesthesiology Post-procedure Note Patient: Theresa Hollis Procedure Summary Date: 09/05/22 Room / Location: [facility] Anesthesia Start: 1034 Anesthesia Stop: 1216 Procedure: PERCUTANEOUS GASTROSTOMY Diagnosis: (DIFFICULTY SWALLOWING) Surgeons: Francisco Oliver MD Responsible Provider: Mat Bryant MD Anesthesia Type: general ASA Status: 3 All Anesthesia Providers: Anesthesiologist: Mat Bryant MD AUDIO SPECIALIST: Latesha Lundberg CRNA Vitals Value Taken Time BP 150/63 09/05/22 1245 Temp 36.9 ??C (98.4 ??F) 09/05/22 1213 Pulse 68 09/05/22 1248 Resp 16 09/05/22 1248 SpO2 100 % 09/05/22 1241 Pain Level Vitals shown include unvalidated device data. Patient Location: PACU/[facility] Level of Consciousness: Awake and Alert Pain Management: Satisfactory Analgesia PONV: None Cardiovascular Status: At Baseline Respiratory Status: At Baseline Postoperative Fluid Status: Intravascular EUvolemia Possible Anesthetic Complications: NONE apparent at time of evaluation Final Primary Anesthesia Type: General (The anesthetic type performed was the same as planned.) Comments: Trcaheostomy stoma covered with 2x2 mepilex dressing. Some air leaking around dressing, requested respiratory therapy to evaluate. Dr Donis's service updated as well. Breathing comfortably. * Anesthesia Preprocedure Evaluation - Mat Bryant MD - 09/05/2022 7:13 AM EDT Images from the original note were not included. Pre-Anesthesia Evaluation for: Theresa Hollis a 52 y.o. female. Procedure(s): PERCUTANEOUS GASTROSTOMY Patient Active Problem List Diagnosis Date Noted ??? *Mandible fracture 08/21/2022 ??? Family hx-breast malignancy 10/29/2020 [...] Laterality Date ??? GLOSSECTOMY Right partial ??? LYMPHADENECTOMY SND 1-5 ??? SD PREP FACE/ORAL PROST MANDIBULAR N/A 08/21/2022 IMPRESSION AND CUSTOM PREPARATION,MANDIBULAR RESECTION PROSTHESIS (WRVU 22.85) performed by Keyur Ng MD at [facility] ? ? PRO ADJ TISS XFER HEAD, FAC, HAND <10SQCM 08/21/2022 ADJ.TISSUE TRANSFER, REARRANGEMENT, 10SQ.CM OR LESS, NECK (WRVU 8.6) performed by Cheo Laguna [facility]at [facility] ??? PRO BONE BIOPSY,TROCAR/NEEDLE SUPERF Left 05/06/2014 BIOPSY BONE, TROCAR OR NEEDLE, SUPERFICIAL, MANDIBLE performed by Alfred Vital MD at [facility] ??? PRO BONE-SKIN GRAFT, MICROVASCULAR 08/21/2022 @FLAP, FREE OSTEOCUTANEOUS W MICROVASC, FIBULA (WRVU 45.43) performed by Cheo Laguna MD at [facility] ??? PRO CERVICAL LYMPHADECTOMY MODIFIED RADICAL NECK DISSECTION Right 08/21/2022 @CERVICAL LYMPHADENECTOMY (MODIFIED RADICAL NECK DISSECTION)-JANA , ROBOTIC (WRVU 23.95) performed by Roberth Lee MD at [facility] ? ? PRO DEBRIDEMENT BONE MUSCLE &/FASCIA 20 SQ CM/< Bilateral 11/17/2019 DEBRIDEMENT SKIN, SUBCU, MUSCLE, BONE, HEAD/NECK (WRVU 4.1) performed by Keyur Ng MD at [facility] OR ??? PRO EXCISION OF BONE, LOWER JAW Bilateral 08/21/2022 EXCISION OF BONE, MANDIBLE (WRVU 10.03) performed by Roberth Lee MD at [facility] OR ??? PRO INJECTION PLATELET PLASMA WITH IMAGE, HARVEST/PREP 11/17/2019 INJECTION(S), PLATELET RICH PLASMA, ANY SITE, INCLUDING IMAGE GUIDANCE, HARVESTING AND PREPARATION WHEN PERFORMED performed by Keyur Ng MD at [facility] OR ??? PRO RECONSTR JAW, FULL ENDO IMPLNT N/A 08/21/2022 RECONSTRUCT MANDIBLE OR MAXILLA, ENDOSTEAL IMPLANT, COMPLETE (WRVU 18.77) performed by Keyur Ng MD at [facility] OR ??? PRO RECONSTR MANDIBLE, BONE PLATE 08/21/2022 RECONSTRUCT MANDIBLE, EXTRAORAL, W/ TRANSOSTEAL BONE PLATE (WRVU 13.62) performed by Cheo Laguna MD at [facility] OR ??? PRO REMOVAL ERUPTED TOOTH WITH ELEVATION OF MUCOPERIOSTEAL FLAP N/A 05/06/2014 SURGICAL EXTRACTIONS REQUIRING ELEVATION OF MUCOPERIOSTEAL FLAP AND REMOVAL OF BONE OR SECTION OF TOOTH performed by Alfred Vital MD at [facility] OR ??? PRO REMOVAL ERUPTED TOOTH WITH ELEVATION OF MUCOPERIOSTEAL FLAP Bilateral 11/17/2019 SURGICAL EXTRACTIONS REQUIRING ELEVATION OF MUCOPERIOSTEAL FLAP AND REMOVAL OF BONE OR SECTION OF TOOTH (WRVU 1.09) performed by Keyur Ng MD at [facility] OR ? ? PRO SPLIT GRFT TRUNK, ARM, LEG <100SQCM N/A 08/21/2022 SPLIT THICK SKIN GRAFT,100 SQ CM OR LESS, LEGS (WRVU 9.9) performed by Cheo Laguna MD at [facility] OR ??? PRO TRACHEOSTOMY, PLANNED N/A 08/21/2022 TRACHEOSTOMY, PLANNED (WRVU 5.56) performed by Roberth Lee MD at [facility] OR ??? SKIN GRAFT Social History Tobacco Use ??? Smoking status: Never ??? Smokeless tobacco: Never Substance Use Topics ??? Alcohol use: Not Currently Comment: seldom, 4 drinks per year Social History Substance and Sexual Activity Drug Use No Allergies Allergen Reactions ??? Tylenol [Acetaminophen] Anaphylaxis ??? Allergenic Bthxlwa-Onbm-Gjaxl Itching Applesauce ??? Peanut Itching ??? Benzocaine Made pt tongue red and angry. Irritant reaction - allergy testing negative ??? Birch Other (See Comments) Birch pollen: wheezing and throat constriction Medications: MAR and/or home medications have been reviewed. Physical Exam: Preprocedure Vitals Current as of 09/05/22 0713 BP: 127/54 Pulse: Resp: SpO2: 92 Temp: 36.4 ??C (97.5 ??F) Height: 157.5 cm (5' 2) (08/21/22) Weight: 46 kg (101 lb 8 oz) (08/28/22) BMI: 18.56 IBW: 50.1 kg (110 lb 7.8 oz) Last edited 09/05/22 0400 by CE Currently displaying vitals information from multiple entries within 180 minutes of most recent vitals. Airway Assessment: Mallampati: II TM distance: >3 FB Neck ROM: full Cardiovascular Assessment: Rhythm: regular Rate: normal system normal Pulmonary Assessment: unlabored breathing Dental Assessment: Misc Assessment: Patient is wearing No contact(s). IV access: Peripheral line Other exam findings: Trach Last Filed Perioperative Cognitive Screening None Anesthesia Plan: ASA 3 general, with a(n) intravenous induction Theresa Hollis is a 52 y.o. BMI 18 female s/f endoscopically placed PEG tube Pt is s/p right neck exploration, trach placment, and mandibular reconstruction. 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 Prior anesthetic hx: 2014 unable to visualize epiglottis or cords. Grade 4 view with Mac 3 and bougie (6mm ETT). Easy mask. ?? Allergies: -- Tylenol [Acetaminophen] -- Anaphylaxis -- Allergenic Xhqfusp-Vgio-Fdksv -- Itching -- Applesauce -- Peanut -- Itching -- Benzocaine -- Made pt tongue red and angry. Irritant reaction - allergy testing negative -- Birch -- Other (See Comments) -- Birch pollen: wheezing and throat constriction ROS negative for GERD, CP, SOB, dizziness. Plan general anesthesia, standard ASA monitors, adequate PIV access. Region - Other Informed Consent: Anesthetic plan and risks discussed with patient. Plan discussed with AUDIO SPECIALIST. Anesthesia Screening documented in this encounter Plan of Treatment Not on file documented as of this encounter Visit Diagnoses Not on filedocumented in this encounter Administered Medications Inactive Administered Medications - up to 3 most recent administrations Medication Order MAR Action Action Date Dose Rate Site ceFAZolin (Ancef) 1 g in dextrose 5% 50 mL infusion Intravenous, PRN, Starting on Sun09/05/22 at 1101, Until Sun09/05/22 at 1358, Administer over 30 Minutes, Anesthesia Intra-op Given 09/05/2022 11:01 AM EDT 2 g glucagon (Glucagen) (1 mg/mL) injection solution Intramuscular, PRN, Starting on Sun09/05/22 at 1120, Until 09/05/22 at 1358, Anesthesia Intra-op, Routine Given 09/05/2022 11:21 AM EDT 0.5 mg Given 09/05/2022 11:20 AM EDT 0.5 mg lactated ringers infusion Intravenous, CONTINUOUS PRN, Starting on Sun09/05/22 at 1034, Until Tu09/05/22 at 1358, Anesthesia Intra-op New Bag 09/05/2022 10:34 AM EDT ondansetron (pf) (Zofran) (2 mg/mL) injection Intravenous, PRN, Starting on Sun09/05/22 at 1131, Until 09/05/22 at 1358, Anesthesia Intra-op, Routine Given 09/05/2022 11:31 AM EDT 4 mg PHENYLephrine in NS (PF) (REM[place]-SYNEPHRINE) 0.8 mg/10 mL (80 mcg/mL) multi-dose injection Syringe Intravenous, PRN, Starting on Sun09/05/22 at 1053, Until Sun09/05/22 at 1358, Anesthesia Intra-op, Routine Given 09/05/2022 11:25 AM EDT 80 mcg Given 09/05/2022 11:17 AM EDT 80 mcg Given 09/05/2022 11:12 AM EDT 80 mcg propofoL (Diprivan) 10 mg/mL bolus injection (Anesthesia) Intravenous, PRN, Starting on e 09/05/22 at 1045, Until Tu09/05/22 at 1358, Anesthesia Intra-op Given 09/05/2022 11:27 AM EDT 30 mg Given 09/05/2022 10:45 AM EDT 80 mg rocuronium (Zemuron) 10 mg/mL injection Intravenous, PRN, Starting on Sun09/05/22 at 1045, Until Tu09/05/22 at 1358, Anesthesia Intra-op, Routine Given 09/05/2022 10:45 AM EDT 20 mg sugammadex (Bridion) 100 mg/mL injection Intravenous, PRN, Starting on Sun09/05/22 at 1148, Until Sun09/05/22 at 1358, Anesthesia Intra-op, Routine Given 09/05/2022 11:48 AM EDT 100 mg documented in this encounter Care Teams Casualty Claim Adjuster Relationship Specialty Start Date End Date Dev, Tita Butt APRN [address] [place] [address] PCP - General Internal Medicine 05/15/22 documented as of this encounter
--- OUTSIDE RECORDS SUMMARY | 2023-12-08 19:58 | XMS_ITS | Encounter Summary ---
Author Organization [facility] [place] [address] Care Team Providers Care Round Kiln Drawer Name Role Phone Tita Méndez APRN Primary Care Provider [phone]- [phone] Encounter Details Date Type Department Care Team (Latest Contact Info) Description 09/05/2022 Travel Social History Tobacco Use Types Packs/Day [...] on filedocumented in this encounter Care Teams Round Kiln Drawer Relationship Specialty Start Date End Date Tita Méndez APRN [address] [place], [place] [id number] PCP - General Internal Medicine 05/15/22 documented as of this encounter
--- OUTSIDE RECORDS SUMMARY | 2023-12-08 19:59 | XMS_ITS | Encounter Summary ---
Author Organization [facility] [place] [address] Care Team Providers Care Service Center Appraiser Name Role Phone Dev, Tita Butt APRN Primary Care Provider [phone] Reason for Visit * Auth/Cert (Routine) Specialty [...] MICROVASC, FIBULA (WRVU 45.43) Roberth Lee MD [facility] [place] [address] [facility] Referral ID Status Reason Start Date Expiration Date Visits Re quested Visits Authorized [id number] 1 1 Encounter Details Date Type Department Care Team (Late st Contact Info) Description 09/03/2022 12:49 PM EDT Anesthesia [place] [address] Josey Mas MD [facility] [place] [address] Anesthesia Record Procedure Summary Procedure Name Responsible Anesthesiologist Anesthesia Start Time Anesthesia Stop Time ENDOSCOPY W DIRECTED PLACEMENT PERCUTANEOUS GASTROSTOMY TUBE-PEG (WRVU 3.56) (Abdomen) Events Date Time Event Comment 09/03/2022 1249 Meds * Agents No agents on file. * Blood No blood administrations on file. Lines, Drains, and Airways Type Details Placement Removal Incision 08/21/22; 0926; (tracheostomy) 08/21/22 0926 by Terri Cortez RN [...] 11/15/22; throat 11/15/22 0000 b y Rosangela Van, FUENTES documented in this encounter Social History Tobacco [...] of this encounter OR Notes * Anesthesia Preprocedure Evaluation - Josey Mas MD - 09/03/2022 12:37 PM EDT Images from the original note were not included. Pre-Anesthesia Evaluation for: Theresa Hollis a 52 y.o. female. 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 Hyperlipidemia Hypothyroidism Past Surgical History: Procedure Laterality Date GLOSSECTOMY Right partial LYMPHADENECTOMY SND 1-5 OK PREP FACE/ORAL PROST MANDIBULAR N/A 08/21/2022 IMPRESSION AND CUSTOM PREPARATION,MANDIBULAR RESECTION PROSTHESIS (WRVU 22.85) performed by Keyur Ng MD at [facility] MAIN OR PRO ADJ TISS XFER HEAD, FAC, HAND <10SQCM 08/21/2022 ADJ.TISSUE TRANSFER, REARRANGEMENT, 10SQ.CM OR LESS, NECK (WRVU 8.6) performed by Cheo Laguna MDat [facility] MAIN OR PRO BONE BIOPSY,TROCAR/NEEDLE SUPERF Left 05/06/2014 BIOPSY BONE, TROCAR OR NEEDLE, SUPERFICIAL, MANDIBLE performed by Alfred Vital MD at [facility] BONE-SKIN GRAFT, MICROVASCULAR 08/21/2022 @FLAP, FREE OSTEOCUTANEOUS W MICROVASC, FIBULA (WRVU 45.43) performed by Cheo Laguna MD at [facility] CERVICAL LYMPHADECTOMY MODIFIED RADICAL NECK DISSECTION Right 08/21/2022 @CERVICAL LYMPHADENECTOMY (MODIFIED RADICAL NECK DISSECTION)-JANA , ROBOTIC (WRVU 23.95) performed by Roberth Lee MD at [facility] DEBRIDEMENT BONE MUSCLE &/FASCIA 20 SQ CM/< Bilateral 11/17/2019 DEBRIDEMENT SKIN, SUBCU, MUSCLE, BONE, HEAD/NECK (WRVU 4.1) performed by Keyur Ng MD at [facility] EXCISION OF BONE, LOWER JAW Bilateral 08/21/2022 EXCISION OF BONE, MANDIBLE (WRVU 10.03) performed by Roberth Lee MD at [facility] INJECTION PLATELET PLASMA WITH IMAGE, HARVEST/PREP 11/17/2019 INJECTION(S), PLATELET RICH PLASMA, ANY SITE, INCLUDING IMAGE GUIDANCE, HARVESTING AND PREPARATION WHEN PERFORMED performed by Keyur Ng MD at [facility] RECONSTR JAW, FULL ENDO IMPLNT N/A 08/21/2022 RECONSTRUCT MANDIBLE OR MAXILLA, ENDOSTEAL IMPLANT, COMPLETE (WRVU 18.77) performed by Keyur gN MD at [facility] RECONSTR MANDIBLE, BONE PLATE 08/21/2022 RECONSTRUCT MANDIBLE, EXTRAORAL, W/ TRANSOSTEAL BONE PLATE (WRVU 13.62) performed by Cheo Laguna MD at [facility] REMOVAL ERUPTED TOOTH WITH ELEVATION OF MUCOPERIOSTEAL FLAP N/A 05/06/2014 SURGICAL EXTRACTIONS REQUIRING ELEVATION OF MUCOPERIOSTEAL FLAP AND REMOVAL OF BONE OR SECTION OF TOOTH performed by Alfred Vital MD at [facility] REMOVAL ERUPTED TOOTH WITH ELEVATION OF MUCOPERIOSTEAL FLAP Bilateral 11/17/2019 SURGICAL EXTRACTIONS REQUIRING ELEVATION OF MUCOPERIOSTEAL FLAP AND REMOVAL OF BONE OR SECTION OF TOOTH (WRVU 1.09) performed by Keyur Ng MD at [facility] MAIN OR PRO SPLIT GRFT TRUNK, ARM, LEG <100SQCM N/A 08/21/2022 SPLIT THICK SKIN GRAFT,100 SQ CM OR LESS, LEGS (WRVU 9.9) performed by Cheo Laguna MD at [facility] MAIN OR PRO TRACHEOSTOMY, PLANNED N/A 08/21/2022 TRACHEOSTOMY, PLANNED (WRVU 5.56) performed by Roberth Lee MD at [facility] MAIN OR SKIN GRAFT Social History Tobacco Use Smoking status: Never Smokeless tobacco: Never Substance Use Topics Alcohol use: Not Currently Comment: seldom, 4 drinks per year Social History Substance and Sexual Activity Drug Use No Allergies Allergen Reactions Tylenol [Acetaminophen] Anaphylaxis Allergenic Jgmnoay-Yzds-Vogct Itching Applesauce Peanut Itching Benzocaine Made pt tongue red and angry. Irritant reaction - allergy testing negative Birch Other (See Comments) Birch pollen: wheezing and throat constriction Medications: MAR and/or home medications have been reviewed. Physical Exam: Preprocedure Vitals Current as of 09/03/22 1237 BP: 146/84 Pulse: 80 Resp: 20 SpO2: 99 Temp: 37 ??C (98.6 ??F) Height: 157.5 cm (5' 2) (08/21/22) Weight: 46 kg (101 lb 8 oz) (08/28/22) BMI: 18.56 IBW: 50.1 kg (110 lb 7.8 oz) Last edited 09/03/22 1209 by DW Airway Assessment: Mallampati: II TM distance: >3 [...] 3 and bougie (6mm ETT). Easy mask. Allergies: -- Tylenol [Acetaminophen] -- Anaphylaxis -- Allergenic Bfqnqqq-Qxes-Ojnmy -- Itching -- Applesauce -- Peanut -- Itching -- Benzocaine -- Made pt tongue red and angry. Irritant reaction - allergy testing negative -- Birch -- Other (See Comments) -- Birch pollen: wheezing and throat constriction ROS negative for GERD, CP, SOB, dizziness. Notes and labs reviewed. Patient personally seen and examined. We discussed benefits, indications, and risks of anesthesia (including but not limited to sore throat, dental injury, nerve injury, prolonged intubation, cardiac, pulmonary, or neurologic event). Plan general anesthesia, standard ASA monitors, adequate PIV access. Josey Mas MD Region - Other Informed Consent: Anesthetic plan and risks discussed with patient. Plan discussed with DIGITAL CONTENT PRODUCER and attending. Anesthesia Screening documented in this encounter Plan of Treatment Not on file documented as of this encounter Visit Diagnoses Not on filedocumented in this encounter Care Teams Service Center Appraiser Relationship Specialty Start Date End Date Dev, Tita Butt APRN [address] [place] [address] PCP - General Internal Medicine 05/15/22 documented as of this encounter
--- OUTSIDE RECORDS SUMMARY | 2023-12-08 19:59 | XMS_ITS | Encounter Summary ---
Author Organization [facility] [place] [address] Care Team Providers Care Measuring Machine Tender Name Role Phone Dev, Tita Butt APRN Primary Care Provider [phone] Reason for Visit * Auth/Cert (Routine) Specialty [...] MICROVASC, FIBULA (WRVU 45.43) Roberth Lee MD [facility] [place] [address] [facility] Referral ID Status Reason Start Date Expiration Date Visits Re quested Visits Authorized [id number] 1 1 Encounter Details Date Type Department Care Team (Late st Contact Info) Description 09/05/2022 9:30 AM EDT - 09/05/2022 10:50 [place] [id number] Francisco Oliver MD [facility] [place] [address] PERCUTANEOUS GASTROSTOMY Social History Tobacco Use Types Packs/Day Years [...] Sign Reading Time Taken Comments Blood Pressure 125/61 09/05/2022 7:18 AM EDT Pulse 80 09/03/2022 12:09 PM EDT Temperature 36.4 ??C (97.5 ??F) 09/05/2022 7:18 AM ED T Respiratory Rate 16 09/04/2022 3:11 PM EDT Oxygen Saturation 100% 09/05/2022 8:47 AM EDT Inhaled Oxygen Concentration - - Weight 46 kg (101 lb 8 oz) 08/28/2022 3:00 PM ED T Height 157.5 cm (5' 2) 08/21/2022 6:20 AM EDT Body Mass Index 16.77 09/08/2022 6:00 AM [...] follows: Primary site: Left lateral tongue Stage: W2G2eB7 Surgery(ies): 10/31/06 - Hemiglossectomy, left neck dissection [...] and if no improvement revisit with the otc clerk. She was satisfied with this plan. Reason [...] tolerated tube feeds well. She worked with FSR on POD 8 and her feeding tube was removed on POD 9 in an attempt to encourage more p.o. intake. The patient complained of difficulty swallowing and fatigue during eating. She also was noted to have significant coughing after swallowing. She was evaluated by the FSR and was initially cleared for a full [...] was discontinued. She continued to work with FSR throughout the hospital stay. The patient had [...] who have questions please contact the health respiratory care technician that requested your imaging first. Electronically signed by: LILY CELESTE MD, [facility] ([phone]), at 08/22/2022 6:52 PM XR Abdomen 1 view (Generic) Result Date: 08/22/2022 EXAMINATION: XR ABDOMEN 1 VIEW (GENERIC) CLINICAL HISTORY: s/p NGT placement (as entered by ordering provider in the order requisition) TECHNIQUE: Portable supine AP view of the upper abdomen. The right lateral margin of the abdominal cavity and the lower abdomen and pelvis are excluded from the imaged hneef-xe-frgz. COMPARISON: Abdominal radiograph 08/22/2022. FINDINGS: This enteric [...] who have questions please contact the health respiratory care technician that requested your imagingfirst. Electronically signed by: Nicki Castanon MD, [facility] ([phone]), at 08/22/2022 4:14 PM XR Abdomen 1 [...] who have questions please contact the health respiratory care technician that requested your imaging first. Electronically signed by: Parish Gomes MD, [facility]([phone]), at 08/22/2022 12:12 PM --------ORIGINAL REPORT -------- [...] who have questions please contact the health respiratory care technician that requested your imaging first. Electronically signed by: Parish Gomes MD, [facility] ([phone]), at 08/22/2022 11:53 AM Result Date: 08/22/2022 [...] healthcare professional that requested your imaging first. PICC Placement Over 5 Years with Imaging [...] who have questions please contact the health respiratory care technician that requested your imaging first. Electronically signed by: Silvia Lee MD, [facility] ([phone]), at 09/02/2022 5:04 PM IR G-Tube Placement [...] with an 8mm balloon catheter. A 16 Tristanian balloon retained gastrostomy tube was placed. The [...] patients who have questions please contactthe health respiratory care technician that requested your imaging first. Electronically signed by: Thong Lee MD, [facility] ([phone]), at 09/07/2022 4:26 PM XR Chest One [...] who have questions please contact the health respiratory care technician that requested your imaging first. Electronically signed by: Dar Villanueva MD, [facility] ([phone]), at 08/30/2022 8:43 AM XR Chest One [...] cap 0.01 % Oil Commonly known as: Brooks-Smoothe/FS Scalp Oil Apply topically to scalp under [...] Allergies Allergen Reactions Tylenol [Acetaminophen] Anaphylaxis Allergenic Zusyyuj-Saxj-Gxadn Itching Applesauce Peanut Itching Benzocaine Made pt [...] by Interventional Radiology. Please call them at [phone] if any concerns. Oral Care: For all [...] get Peridex on the $4 list at [facility]. Activity: A good rule of thumb is [...] -You can reach the ENT clinic at [phone] for appointment questions. -The ENT triage nurse is available at [phone] -For urgent issues during evenings (5 PM - 7 AM) and weekends the ENT resident bill recapitulation clerk can be reached through the main hospital tow operator at [phone] Follow Up: You will need to follow up with ENT in 6 days. This appointment has been requested. You will be notified once it is scheduled, if you do not already see it below. If you do not hear from us in a timely manner, please call [phone] to receive your date and time. You will also need to follow-up with plastic surgery, which has been set up for you, as well. We will try our best to coordinate this with your other appointments. Please call [phone] to receiveyour date and time. You will [...] 8:30 AM Hermelindo Kearney PA Otolaryngology at [facility] Arrive at: Ice Cream Machine Operator Area 4F [phone] 09/14/2022 8:30 AM Kam Mclean PA Maxillofacial Surgery at [facility] Arrive at: Ice Cream Machine Operator Area 5B [phone] 09/14/2022 9:00 AM Dimitry Marin PA Plastic Surgery at [facility] Arrive at: Ice Cream Machine Operator Area 4M [phone] 09/14/2022 9:30 AM [facility] IR RECOVERY Radiology at [facility] Arrive at: 3Z RADIOLOGY [phone] 09/14/2022 10:00 AM Roberth Agudelo SLP Otolaryngology at [facility] Arrive at: Ice Cream Machine Operator Area 4F [phone] 10/25/2022 11:00 AM Evelio Gimenez MD Endocrinology at [facility] Arrive at: Ice Cream Machine Operator Area 3A [phone] Future Orders Complete By Expires IR Suture Release [[id number] Custom] 09/12/2022 03/14/2023 Process Instructions: Scheduling Instructions: Comments: Questions: Where will study be performed?: [facility] Radiology Reason for exam and clinical [...] Oral cancer Referral for Home Tube feeds [TTI9518 CPT(R)] As directed Process Instructions: Scheduling Instructions: Comments: Theresa Hollis [address] [facility] [phone] (home) [phone] (work) - Telephone Information: Medicaid: NO Narrative: Patient has a feeding tube and requires tube feedings and supplies necessary to maintainnutritional support . 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 Length of Need: lifetime Number of Refills :12 ( needs to be a number from 0-12) Patient's: Hgt: Ht Readings from Last 1 Encounters: 06/05/23 : 157.5 cm (5' 2) Wgt: Wt [...] Additional instruction: Questions: Vendor / contact information: [facility] Patient location post discharge: [place], [place] Service requested: tube feed and supplies Start date: 08/31/2022 Responsible MD post discharge contact info: PCP Referral to [facility] [REF34 Custom] As directed Process Instructions: If no progress note charted, please enter Clinical details in comments. Scheduling Instructions: Comments: Please evaluate Theresa Hollis for admission to Home [facility]. [address] [facility] [address] (home) [phone] (work) Date of : 1970 Inpatient DOCUMENTATION FOR VNA SERVICES (INCLUDING THOSE PATIENTS WITH MEDICARE COVERAGE REQUIRING HOME VNA SERVICES AND/OR HOSPICE SERVICES) PATIENT'S LOCATION: Theresa Hollis [address] [facility] [address] (home) Cell: Telephone Information: Chocolate Temperer's Name: Theresa In discussion with the attending physician, it is certified that this patient is under their care and that they, or a Nurse Practitioner, Clinical Nurse specialist or Physician Record Press Supervisor who is working directly with them, had [...] both the lower leg and thigh wounds.) FSR: Evaluate and treat as appropriate. COLLECTION SYSTEMS MODELER: Emotional support and community case management. HOME HEALTH CARE AGENCY: [facility] [address] [address] Start of care: Within 24 to 48 hours of discharge. Questions: Disciplines Requested: Nursing Speech Language Pathology Medical Social Work (If Patient Meets Eligibility Requirements) Referral to Speech Therapy [FCE454 Custom] As directed Process Instructions: Scheduling Instructions: [...] the stages in any order and may barrow back to repeat any of the stages [...] your life. Don't be discouraged if you barrow back to any of the other stages [...] and security. Those people you can have ???akalr-ym-hoxew?? talks with. Engage in a mentoring relationship [...] it. Information from Dr. Samia Goldsmith, Psychiatrist [email or web address] ................................................................................ ............................................................... Support Groups: [facility] offers a variety of free programs that enhance the well- being of patients and care partners throughout the cancer journey. [email or web address]://[email or web address].[email or web address]/organizer/iaczog-oudgqp-bgfxjzqf-families /page/2/ Classes and workshops are offered to anyone who has received care at the [facility], regardless of location. All of our support groups are open to anyone in the region regardless of where they received their treatment and are facilitated by experienced, caring staff members. Everythingdiscussed in each group is confidential. All programs require pre-registration. To register, contact us at [phone] or [email or web address]. Support for People with Oral and Head and Neck Cancer (SPOHNC) [facility] Quarterly variable days *5:00 p.m. to 7:00 p.m. *Call [facility] for Information - ( ) [facility] Conference Room Sunday of each month *4:00 p.m. - 5:30 p.m. *Call [facility] for Information - ( ) ................................................................................ .................... ................................................................................ ................... 988 has been designated as the new three-digit dialing code that will route callers to the NationalSuicide Prevention Lifeline (now known as the 988 Suicide & Crisis Lifeline), and is now activeacross the [facility]. When people call, text, or chat 988, they will be connected to trained counselors that are part of the existing Lifeline network. These trained counselors will listen, understand how their problems are affecting them, provide support, and connect them to resources if necessary. The previous Lifeline phone number ( ) will always remain available to people in emotional distress or suicidal crisis. 355-AN-ODYKS The [facility] Support Line provides confidential, non-judgmental support and connection for all [facility] over the age of 18 by phone. It???s staffed by local peers who???ve been through tough situations themselves. They listen, talk with you, provide insight, and help you face life???s challenges. Different from a crisis helpline or emergency hotline, the [place] Support Line is a ???warm line?? -- [...] concerns, relationship challenges, or thoughts of suicide. [facility] Interventional Radiology Discharge Instructions for Feeding Tube [...] or its attachments. INTERVENTIONAL RADIOLOGY PHONE NUMBERS [phone] If you have a NON Low profile feeding tube, call with any questions or concerns. During regular office hours call: [phone]. If it is after regular office hours, weekends or holidays, please call [phone] and ask to speak to the Cell Stripper bill recapitulation clerk for Interventional Radiology. If you have a low profile ???SARTHAK-RAMOS?? feeding tube, please call Ndaine Early RN for any issues: [phone]. Revised 01/02/19 __ Your Medications New Medications [...] cap 0.01 % Oil Commonly known as: Brooks-Smoothe/FS Scalp Oil Apply topically to scalp under [...] Center 09/14/2022 8:30 AM Hermelindo Kearney PA [facility] JHONATAN [facility] 09/14/2022 8:30 AM Kam Mclean PA [facility] MXLO 5B [facility] 09/14/2022 9:00 AM Dimitry Marin PA [facility] PLAS 4M [facility] 09/14/2022 9:30 AM [facility] IR RECOVERY MH IR [facility] Rad 09/14/2022 10:00 AM Roberth Agudelo, FSR [facility] 10/25/2022 11:00 AM Evelio Gimenez MD [facility] ENDO [facility] Outpatient Services/Studies: IR Suture Release Standing Status: Future Standing Exp. Date: 03/14/23 Question Response Notes Where will study be performed? [facility] Radiology [120] Reason for exam and clinical history: s/p G tube placement 09/05/22, planning anchor release in 7-10days. Is the patient on anticoagulant / antiplatelet therapy ? No Is the patient ? No Referral to Home Health Referral Priority: Routine Referral Type: Home Health Care Referral Reason: Consult, Test & Treat Referred to Provider: [facility] [place] Number of Visits Requested: 999 Referral to Speech Therapy Referral Priority: Routine Referral Type: Speech Therapy Referral Reason: Evaluate and Treat Referred to Provider: ROBERTH AGUDELO Number of Visits Requested: 12 Referral for Home Tube feeds Order Comments: Theresa Hollis [address] [facility] [phone] (home) [phone] (work) - Telephone Information: Medicaid: NO Narrative: Patient has a feeding tube and requires tube feedings and supplies necessary to maintainnutritional support . PO INtake in very small amounts for swallow practice only VENDOR:[address] [address] or Supporting Diagnosis: SCC of the tongue [...] Question Response Notes Vendor / contact information [facility] Patient location post discharge [place], [place] Service requested tube feed and supplies Start date 08/31/2022 Responsible MD post discharge contact info PCP Primary Care Doctor: Tita Méndez, HOSPICE NURSE PRACTITIONER [phone] Signed: Toño Pacheco MD 09/08/2022 documented in [...] the stages in any order and may barrow back to repeat any of the stages [...] your life. Don't be discouraged if you barrow back to any of the other stages [...] and security. Those people you can have ???uexqp-bd-zfbvr?? talks with. Engage in a mentoring relationship [...] it. Information from Dr. Samia Goldsmith, Psychiatrist [email or web address] ................................................................................ ............................................................... Support Groups: [facility] offers a variety of free programs that enhance the well- being of patients and care partners throughout the cancer journey. [email or web address]://[email or web address].[email or web address]/organizer/avgmkg-puhgzh-ojirsktj-families /page/2/ Classes and workshops are offered to anyone who has received care at the [facility], regardless of location. All of our support groups are open to anyone in the region regardless of where they received their treatment and are facilitated by experienced, caring staff members. Everythingdiscussed in each group is confidential. All programs require pre-registration. To register, contact us at [phone] or [email or web address]. Support for People with Oral and Head and Neck Cancer (SPOHNC) [facility] Quarterly variable days *5:00 p.m. to 7:00 p.m. *Call [facility] for Information - ( ) [facility] Conference Room Sunday of each month *4:00 p.m. - 5:30 p.m. *Call [facility] for Information - ( ) ................................................................................ .................... ................................................................................ ................... 988 has been designated as the new three-digit dialing code that will route callers to the NationalSuicide Prevention Lifeline (now known as the 988 Suicide & Crisis Lifeline), and is now activeacross the [facility]. When people call, text, or chat 988, they will be connected to trained counselors that are part of the existing Lifeline network. These trained counselors will listen, understand how their problems are affecting them, provide support, and connect them to resources if necessary. The previous Lifeline phone number ( ) will always remain available to people in emotional distress or suicidal crisis. 289-KT-LUTGF The [facility] Support Line provides confidential, non-judgmental support and connection for all [facility] over the age of 18 by phone. It???s staffed by local peers who???ve been through tough situations themselves. They listen, talk with you, provide insight, and help you face life???s challenges. Different from a crisis helpline or emergency hotline, the [place] Support Line is a ???warm line?? -- [...] concerns, relationship challenges, or thoughts of suicide. [facility] Interventional Radiology Discharge Instructions for Feeding Tube [...] or its attachments. INTERVENTIONAL RADIOLOGY PHONE NUMBERS [phone] If you have a NON Low profile feeding tube, call with any questions or concerns. During regular office hours call: [phone]. If it is after regular office hours, weekends or holidays, please call [phone] and ask to speak to the Cell Stripper bill recapitulation clerk for Interventional Radiology. If you have a low profile ???SARTHAK-RAMOS?? feeding tube, please call Nadine Early RN for any issues: [phone]. Revised 01/02/19 * Patient Instructions* Toño Pacheco [...] by Interventional Radiology. Please call them at [phone] if any concerns. Oral Care: For all [...] get Peridex on the $4 list at [facility]. Activity: A good rule of thumb is [...] -You can reach the ENT clinic at [phone] for appointment questions. -The ENT triage nurse is available at [phone] -For urgent issues during evenings (5 PM - 7 AM) and weekends the ENT resident bill recapitulation clerk can be reached through the main hospital tow operator at [phone] Follow Up: You will need to follow [...] this with your other appointments. Please call [phone] to receiveyour date and time. You will [...] 8:30 AM Hermelindo Kearney PA Otolaryngology at [facility] Arrive at: Ice Cream Machine Operator Area 4F [phone] 09/14/2022 8:30 AM Kam Mclean PA Maxillofacial Surgery at [facility] Arrive at: Ice Cream Machine Operator Area 5B [phone] 09/14/2022 9:00 AM Dimitry Marin PA Plastic Surgery at [facility] Arrive at: Ice Cream Machine Operator Area 4M [phone] 09/14/2022 9:30 AM [facility] IR RECOVERY Radiology at [facility] Arrive at: 3Z RADIOLOGY [phone] 09/14/2022 10:00 AM Roberth Agudelo SLP Otolaryngology at [facility] Arrive at: Ice Cream Machine Operator Area 4F [phone] 10/25/2022 11:00 AM Evelio Gimenez MD Endocrinology at [facility] Arrive at: Ice Cream Machine Operator Area 3A [phone] Future Orders Complete By Expires IR Suture Release [[id number] Custom] 09/12/2022 03/14/2023 Process Instructions: Scheduling Instructions: Comments: Questions: Where will study be performed?: [facility] Radiology Reason for exam and clinical [...] Oral cancer Referral for Home Tube feeds [YXZ4445 CPT(R)] As directed Process Instructions: Scheduling Instructions: Comments: Theresa Wyattesteban [address] [facility] [address] (home) [phone] (work) - Telephone Information: Medicaid: NO Narrative: Patient has a feeding tube and requires tube feedings and supplies necessary to maintainnutritional support . PO INtake in very small amounts for swallow practice only VENDOR:[employer] [employer] [address] [address] or Supporting Diagnosis: SCC of the tongue [...] Additional instruction: Questions: Vendor / contact information: [facility] [employer] [facility] Patient location post discharge: [place], [place] Service requested: tube feed and supplies Start date: 08/31/2022 Responsible MD post discharge contact info: PCP Referral to Home Health [REF34 Custom] As directed Process Instructions: If no progress note charted, please enter Clinical details in comments. Scheduling Instructions: Comments: Please evaluate Theresa Hollis for admission to Home Health. [address] [facility] [address] (home) [phone] (work) Date of : 1970 Inpatient DOCUMENTATION FOR VNA SERVICES (INCLUDING THOSE PATIENTS WITH MEDICARE COVERAGE REQUIRING HOME VNA SERVICES AND/OR HOSPICE SERVICES) PATIENT'S LOCATION: Theresa Hollis [address] [facility] [address] (home) Cell: Telephone Information: Chocolate Temperer's Name: Theresa In discussion with the attending physician, it is certified that this patient is under their care and that they, or a Nurse Practitioner, Clinical Nurse specialist or Physician Record Press Supervisor who is working directly with them, had [...] both the lower leg and thigh wounds.) FSR: Evaluate and treat as appropriate. COLLECTION SYSTEMS MODELER: Emotional support and community case management. HOME HEALTH CARE AGENCY: [facility]. [address] [place] [address] Start of care: Within 24 to 48 hours of discharge. Questions: Disciplines Requested: Nursing Speech Language Pathology Medical Social Work (If Patient Meets Eligibility Requirements) Referral to Speech Therapy [ONQ797 Custom] As directed Process Instructions: Scheduling Instructions: [...] 3 07/31/2022 03/22/2023 fluocinolone and shower cap (Brooks-Smoothe/FS Scalp Oil) 0.01 % Oil Apply topically [...] to call with concerns. * Roberth Agudelo, FSR - 09/08/2022 8:13 AM EDT Speech-Language Pathology [...] 09/14/22 in ENT clinic. Roberth Agudelo MS, CCC-FSR Speech-Language Pathologist Rehabilitation Medicine Pager #[phone] * Emmanuel Khalil MD - 09/08/2022 7:10 AM EDT Plastic Surgery Inpatient Progress Note (Team Pager #[phone] Date of surgery: 08/21/22 CC/Procedure(s): Oromandibular reconstruction with right fibula free flap, skin graft from R thigh to right leg and submental opening Surgeon: Luz Elena Subjective/IE: BENJAMIN VALDES. Feeling well. Objective: BP 109/57 (BP Location [...] Khalil MD Plastic Surgery Inpatient Team Pager #[phone] Attending: Pt seen and examined . HEr [...] weakness, pain Assistance: SBA with FWW Supervision: [place] with minimal assist Surveillance: suction at bedside, clutter free environment, call ramirez within reach, bed locked in low position, trach to go at bedside CPG GOAL OUTCOME EVALUATION: Continue with plan of care as documented * Umang Meza, GRAPHIC TECHNICIAN - 09/07/2022 4:33 PM EDT Physical Therapy Intervention Note Treatment Number PT: 5 Patient profile: Theresa Hollis is a 52 y.o. female with a history of P3F1gM6 SCCa of the left lateral tongue s/p [...] Harinder in a single level home in [facility]. Has ~ 15 IRENE without rails. Normallyindependent without device. 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 Stairs: Practiced with single railing and DRAGGER, then railing and SPC, then just a [...] otherwise noted Goals: To be achieved by 6/22/23: Pt. to demonstrate knowledge of safety limitations [...] stated above. Total Minutes, Physical Therapy: 30 ([id number]) Billing Code: TEFx2 Umang Meza, GRAPHIC TECHNICIAN Pager: [phone] Physical Therapy Inpatient Rehabilitation Department * Derrick [...] discuss plan with provider Cheryl Pacheco MD #[id number] . Current Nutrition Regimen: Active Orders Diet NPO diet (Give Meds) Frequency: Effective Midnight Number of Occurrences: Until Specified Assessment: Lab Results Component Value Date NA 140 09/07/2022 K 4.6 09/07/2022 CL 103 09/07/2022 CO2 29 09/07/2022 BUN 23 (H) 09/07/2022 CREATININE 0.55 (L) 09/07/2022 ESTGFR 111 09/07/2022 MAGNESIUM 0.94 09/07/2022 CALCIUM 9.4 09/07/2022 PHOS 4.3 09/07/2022 [id number] 213 (L) 08/22/2022 No results found for: [...] encounter: 46 kg (101 lb 8 oz). [place] Body Weight (IBW) (kg): 50 Wt Readings [...] Per Meza Urgency Level: Urgent Callback Number: [phone] The following Message was sent: [Urgent] - Callback:[phone]- reporting difficulty breathing. RT is present and states not stoma related - Per Meza The following status was returned from the bistro server: Page for [phone] successfully sent to [phone] having status of Available. * Roberth Agudelo, ROD - 09/07/2022 9:57 AM EDT Speech Therapy Note Patient Profile: Theresa Hollis is a 52 y.o. 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 Pt continues to conduct PO trials [...] aspiration. - goal met. Plan: Therapy Frequency (FSR Eval): 2-4 times/wk Patient / family are in agreement with treatment plan. Total Minutes (Speech Language Pathology): 15 Thank you for this consult with this patient. Please feel free to page me with any questions or concerns. Roberth Agudelo MS, [facility] [place]-FSR Pager: [phone] Speech-Language Pathology Inpatient Rehabilitation Department * Toño Pacheco MD - 09/07/2022 7:22 AM EDT OTOLARYNGOLOGY - HEAD & NECK SURGERY DAILY PROGRESS NOTE Name: Theresa Hollis Age/Sex: 52 y.o. female Attending: Roberth Lee MD Hospital Day: 18 2 Days Post-Op Patient ID/Reason for Admission Theresa Hollis is a 52 y.o. 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 She underwent tracheostomy, neck exploration, mandible excision, and fibula free flap reconstruction 08/21 with ENT and PRS. Interval History - Tolerated bolus TF without issue yesterday - FEES coordinated with FSR demonstrated c/f aspiration, to remain NPO for [...] PGY1 09/07/22 7:22 AM ENT Team Pager: [phone] * Kelly Laguna MD - 09/07/2022 7:05 AM EDT Plastic Surgery Inpatient Progress Note (Team Pager #[phone] Date of surgery: 08/21/22 CC/Procedure(s): Oromandibular reconstruction [...] MENDOZA APRN Plastic Surgery Inpatient Team Pager #[phone] Attending: Pt seen and examined . HEr [...] continue to monitor pt * Roberth Agudelo, FSR - 09/06/2022 1:42 PM EDT Speech Therapy Fiberoptic Endoscopic Evaluation of Swallowing (FEES) Patient Profile: Theresa Hollis is a 52 y.o. female with a history of X9U9qD8 SCCa of the left lateral tongue s/p [...] left nares by ENT physician. Bolus Presentation(s) Archer thickened liquid 3 mL, via spoon Oral Preparatory Phase Mastication: N/A Oral Transit: Reduced transit. Whitney assists with transit through oral cvaity. Bolus [...] of Tongue Retraction: Reduced. Pharygneal Residue: present. Archer-thick liquids mix with thick secretions in valleculae [...] dysphagia therapy. Pt would benefit from skilled FSR services to maximize swallow function and safety [...] each bolus. Pt will benefit from continued FSR services while hospitalized and Pt will benefit from FSR services in the discharge location. Speech Therapy Goals: (To be met by discharge) Pt will tolerate least restrictive diet without evidence of dysphagia / aspiration. Pt / caregiver will be independent with aspiration precautions, diet modifications, and safe swallowing strategies. Pt will participate in FEES to evaluate swallow function and rule out silent aspiration. - goal met. Plan: Therapy Frequency (FSR Eval): 2-4 times/wk Pt./family are in agreement with treatment plan. Total Minutes (Speech Language Pathology): 40 Thank you for this consult with this patient. Please feel free to page me with any questions or concerns. Roberth Agudelo MS, CCC-FSR Pager: [phone] Speech-Language Pathology Inpatient Rehabilitation Department * Princess [...] SCC of the tongue and need for usp enteral access for nutrition. Plan: -Suture release ordered and scheduled for 09/12. -IR will sign-off at this time. Please page with further questions and concerns. Princess Abarca PA-C Interventional Radiology IR Team Pager [phone] * Toño Pacheco MD - 09/06/2022 9:09 AM EDT OTOLARYNGOLOGY - HEAD & NECK SURGERY DAILY PROGRESS NOTE Name: Theresa Hollis Age/Sex: 52 y.o. female Attending: Roberth Lee MD Hospital Day: 17 1 Day Post-Op Patient ID/Reason for Admission Theresa Hollis is a 52 y.o. female with a history of Q5I5zF5 SCCa of the left lateral tongue s/p [...] stoma. Plan for FEES this afternoon with FSR to assess swallowing. Surgical/Head&Neck: Neck should remain [...] PGY1 09/06/22 9:10 AM ENT Team Pager: [phone] * Dimitry Marin, PA - 09/06/2022 6:50 AM EDT Plastic Surgery Inpatient Progress Note (Team Pager #[phone] Date of surgery: 08/21/22 CC/Procedure(s): Oromandibular reconstruction [...] CALLY Baker Plastic Surgery Inpatient Team Pager #[phone] * Francisco Bello RCP - 09/05/2022 9:28 PM EDT RT Tracheostomy Note Theresa Hollis is a 52 y.o. female with a history of F2C0dE4 SCCa of the left lateral tongue s/p [...] air robert well Trach removed by DR deutsch Pt doing well Will continue to monitor pt Skin Assessment: Dressing intact covering stoma. Francisco Bello RCP * Dary Ramesh RCP - 09/05/2022 5:15 PM EDT 09/05/22 1611 Oxygen Therapy O2 Device RA SpO2 100 % Pt on room air robert well Trach removed by DR deutsch Pt doing well Will continue to monitor pt * Dary Ramesh RCP - 09/05/2022 2:48 PM EDT 09/05/22 1447 Oxygen Therapy O2 Device (S) RA (TRACH was removed by , pt now has mepilex) SpO2 100 % Pt came back to room with Trach removed Pt has mepilex bandage Pt is a Difficult airway, sign at [facility] Trach supplies remain in room for now * Derrick Abel, RD - 09/05/2022 2:39 PM EDT Images [...] discuss plan with provider Cheryl Pacheco MD #[id number] . Current Nutrition Regimen: Active Orders Diet NPO diet (Give Meds) Frequency: Effective Midnight Number of Occurrences: Until Specified TPN Medication Recent History (Show up to 3 orders; newest on the left. Changes between the two most recent orders are indicated.) Start date and time 09/04/2022 1800 09/01/2022 1800 08/31/2022 1800 TPN Adult [[id number]] TPN Adult [[id number]] TPN Adult [[id number]] Order Status Active Completed Completed Last Admin New Bag at 09/04/2022 172 by Theresa Merino RN New Bag at 09/03/2022 1719 by Annemarie Camarena RN New Bag at 08/31/2022 1729 by Catherine Morataya RN Frequency Continuous (1799) Continuous (1799) Continuous (1799) Additives adult multivitamin 10 mL 10 mL [...] 09/05/2022 CALCIUM 9.3 09/05/2022 PHOS 3.9 09/05/2022 [id number] 213 (L) 08/22/2022 No results found for: POCGLU Patient Lines/Drains/Airways Status Active Nutritional LDAs Name Placement date Placement time Site Days Enterostomy Tube 09/05/22 1155 gastrostomy tube with balloon feeding 09/05/22 1155 -- less than 1 PICC Line - Single Lumen 09/02/22 1633 basilic vein (medial side of arm), right 4 Fr 09/02/22 1633 -- 3 Closed/Suction Drain Right;Anterior Neck Bulb 15 Tristanian 08/21/22 1947 Neck 15 Physical Findings Skin: [...] encounter: 46 kg (101 lb 8 oz). [place] Body Weight (IBW) (kg): 50 Wt Readings [...] Diagnosis: Not enough data to assess (Srinivas baker al, JPEN J Parenteral Enteral Nutr. 2011; 36(3): 273-83) Nutrition to continue to follow up while inpatient DERRICK ABEL RD * Helen Acosta, RN - 09/05/2022 12:34 PM EDT Pt arrived to [facility], placed on monitor and received report. Meplex drsg reinforced over stoma. * Roberth Agudelo, FSR - 09/05/2022 11:26 AM EDT Speech-Language Pathology Progress Note 09/05/2022 11:26 AM Total Treatment Time: 0 min. No charge Total Timed Code Treatment: 0 min. Chart reviewed. Pt NPO for G-tube placement again today. Coordinated care with ENT. Plan for FEES assessment on 09/06/22 at 1PM. Roberth Agudelo MS, CCC-FSR Speech-Language Pathologist Rehabilitation Medicine Pager #[phone] * Akhil Martinez PA - 09/05/2022 9:18 AM EDT Plastic Surgery Inpatient Progress Note (Team Pager #[phone] Date of surgery: 08/21/22 CC/Procedure(s): Oromandibular reconstruction [...] CALLY Owens Plastic Surgery Inpatient Team Pager #[phone] * Toño Pacheco MD - 09/05/2022 7:29 AM EDT OTOLARYNGOLOGY - HEAD & NECK SURGERY DAILY PROGRESS NOTE Name: Theresa Hollis Age/Sex: 52 y.o. female Attending: Roberth Lee MD Hospital Day: 16 15 Days Post-Op Patient ID/Reason for Admission Theresa Hollis is a 52 y.o. female with a history of A0I3xF7 SCCa of the left lateral tongue s/p [...] 3 Closed/Suction Drain Right;Anterior Neck Bulb 15 Tristanian 08/21/22 1947 Neck 15 Trach Airway 08/28/22 1616 08/28/22 1616 -- 8 Prophylaxis: Lovenox, SCD, activity per PRS Disposition: Floor status, Attempt Cardiopulmonary Resuscitation - Inpatient Discharge: Plan for d/c TBD; Needs trach supplies, suction, VNA; Follow-up ENT Toño Pacheco MD, PGY1 09/05/22 7:30 AM ENT Team Pager: [phone] * Joey Mckeon, RN - 09/05/2022 5:53 AM EDTSummary: Overnight [...] sensory deficits provided: N/A * Christiane Reyes RCP - 09/05/2022 5:00 AM EDT RT Tracheostomy [...] at Bedside Yes Emergency Airway Sign at [facility]? Yes Assessment: Received patient with tracheostomy tube [...] following Message was sent: [Call Me] - Callback:[phone]- Question regarding medication dilution Ativan - Joey Mckeon The following status was returned from the bistro server: Page for [phone] successfully sent to [phone] [...] discuss plan with provider Cheryl Pacheco MD #[id number] . Current Nutrition Regimen: Active Orders Diet NPO diet (Give Meds) Frequency: Effective Midnight Number of Occurrences: Until Specified TPN Medication Recent History (Show up to 3 orders; newest on the left. Changes between the two most recent orders are indicated.) Start date and time 09/04/2022 1800 09/01/2022 1800 08/31/2022 1800 TPN Adult [[id number]] TPN Adult [[id number]] TPN Adult [[id number]] Order Status Active Last Dose in Progress Completed Last Admin New Bag at 09/03/2022 171 by Annemarie Camarena RN New Bag at 08/31/2022 172 by Catherine Morataya RN Frequency Continuous (1800) [...] 09/04/2022 CALCIUM 8.8 09/04/2022 PHOS 3.8 09/04/2022 [id number] 213 (L) 08/22/2022 No results found for: POCGLU Patient Lines/Drains/Airways Status Active Nutritional LDAs Name Placement date Placement time Site Days PICC Line - Single Lumen 09/02/22 1633 basilic vein (medial side of arm), right 4 Fr 09/02/22 1633 -- 2 Closed/Suction Drain Right;Anterior Neck Bulb 15 Tristanian 08/21/22 1947 Neck 14 Physical Findings Skin: [...] encounter: 46 kg (101 lb 8 oz). [place] Body Weight (IBW) (kg): 50 Wt Readings [...] 52 y.o. female with a history of J3D7oZ1 SCCa of the left lateral tongue s/p [...] 2 Closed/Suction Drain Right;Anterior Neck Bulb 15 Tristanian 08/21/22 1947 Neck 14 Trach Airway 08/28/22 1616 08/28/22 1616 -- 7 Prophylaxis: Lovenox, SCD, activity per PRS Disposition: Floor status, Attempt Cardiopulmonary Resuscitation - Inpatient Discharge: Plan for d/c TBD; Needs trach supplies, suction, VNA; Follow-up ENT Toño Pacheco MD, PGY1 09/04/22 8:06 AM ENT Team Pager: [phone] * Anabell Nelson MD - 09/04/2022 7:49 AM EDT Plastic Surgery Inpatient Progress Note (Team Pager #[phone] Date of surgery: 08/21/22 CC/Procedure(s): Oromandibular reconstruction [...] Intake/Output Summary (Last 24 hours) at 09/04/2022 0797 Last data filed at 09/04/2022 0400 Gross [...] Nelson MD Plastic Surgery Inpatient Team Pager #[phone] * Joey Mckeon RN - 09/04/2022 5:09 [...] Surveillance: Bed locked in low position, call ramriez within reach, purposeful hourly rounding, clutter free [...] The following status was returned from the bistro server: Page for [phone] successfully sent to [phone] [...] AM EDT Size: Adult Trach: 4.0 Type: Cariley Style: UN (Disposable) Securement: Foam Trach Ties [...] well t/o the shift no observed issues. LINUX DEVELOPER will continue care. * Yue Arellano MD - 09/03/2022 9:11 AM EDT OTOLARYNGOLOGY - HEAD & NECK SURGERY DAILY PROGRESS NOTE Name: Theresa Hollis Age/Sex: 52 y.o. female Attending: Roberth Lee MD Hospital Day: 14 13 Days Post-Op Patient ID/Reason for Admission Theresa Hollis is a 52 y.o. female with a history of H1F2tY3 SCCa of the left lateral tongue s/p [...] 1 Closed/Suction Drain Right;Anterior Neck Bulb 15 Tristanian 08/21/22 1947 Neck 13 Trach Airway 08/28/22 1616 08/28/22 1616 -- 6 Prophylaxis: Lovenox, SCD, activity per PRS Disposition: Floor status, Attempt Cardiopulmonary Resuscitation - Inpatient Discharge: Plan for d/c TBD; Needs trach supplies, suction, VNA; Follow-up ENT Yue Arellano MD, PGY4 09/03/22 9:11 AM ENT Team Pager: [phone] * Anabell Nelson MD - 09/03/2022 8:47 AM EDT Images from the original note were not included. Plastic Surgery Inpatient Progress Note (Team Pager #[phone] Date of surgery: 08/21/22 CC/Procedure(s): Oromandibular reconstruction [...] Nelson MD Plastic Surgery Inpatient Team Pager #[phone] * Joey Reese JUDICIAL ADMINISTRATIVE ASSISTANT - 09/02/2022 9:26 PM EDT Respiratory Care [...] for sensory deficits provided: N/A * Augie Garíca - 09/02/2022 3:09 PM EDT Respiratory Care [...] 52 y.o. female with a history of F0Q8lI8 SCCa of the left lateral tongue s/p [...] 3 Closed/Suction Drain Right;Anterior Neck Bulb 15 Tristanian 08/21/22 194 Neck 12 Trach Airway 08/28/22 1616 08/28/22 161 -- 5 Prophylaxis: Lovenox, SCD, activity per PRS Disposition: Floor status, Attempt Cardiopulmonary Resuscitation - Inpatient Discharge: Plan for d/c TBD; Needs trach supplies, suction, VNA; Follow-up ENT Yue Arellano MD, PGY4 09/02/22 8:50 AM ENT Team Pager: [phone] * Anabell Nelson MD - 09/02/2022 6:43 AM EDT Images from the original note were not included. Plastic Surgery Inpatient Progress Note (Team Pager #[phone] Date of surgery: 08/21/22 CC/Procedure(s): Oromandibular reconstruction [...] Nelson MD Plastic Surgery Inpatient Team Pager #[phone] * Tanja Wilson, PT - 09/01/2022 4:37 PM EDT Physical Therapy Intervention Note Treatment Number PT: 4 Patient profile: Theresa Hollis is a 52 y.o. female with a history of U4U3vF4 SCCa of the left lateral tongue s/p [...] Harinder in a single level home in [facility]. Has ~ 15 IRENE without rails. Normallyindependent without device. 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 Total Minutes, Physical Therapy: 27 ([id number]) Billing Code: TEF, GT Umang Meza PTA Pager: [phone] Physical Therapy Inpatient Rehabilitation Department * Azul [...] discuss plan with provider Cheryl Pacheco MD #[id number] . Current Nutrition Regimen: Active Orders Diet Puree diet Frequency: Effective Now Number of Occurrences: Until Specified TPN Medication Recent History (Show up to 3 orders; newest on the left. Changes between the two most recent orders are indicated.) Start date and time 09/01/2022 1800 08/31/2022 1800 TPN Adult [[id number]] TPN Adult [[id number]] Order Status Active Last Dose in Progress [...] 09/01/2022 CALCIUM 9.5 09/01/2022 PHOS 2.8 09/01/2022 [id number] 213 (L) 08/22/2022 No results found for: POCGLU Patient Lines/Drains/Airways Status Active Nutritional LDAs Name Placement date Placement time Site Days Peripheral IV Line - Single Lumen 08/30/222147 basilic vein (medial side of arm), left 22 gauge;1 in length 08/30/222147 -- 2 Closed/Suction Drain Right;Anterior Neck Bulb 15 Tristanian 08/21/221946 Neck 11 Physical Findings Skin: surgical incisions [...] encounter: 46 kg (101 lb 8 oz). [place] Body Weight (IBW) (kg): 50 Wt Readings [...] 52 y.o. female with a history of L6X7tC1 SCCa of the left lateral tongue s/p [...] 2 Closed/Suction Drain Right;Anterior Neck Bulb 15 Tristanian 08/21/221946 Neck 11 Trach Airway 08/28/22161508/28/221615 -- 4 Prophylaxis: Lovenox, SCD, activity per PRS Disposition: Floor status, Attempt Cardiopulmonary Resuscitation - Inpatient Discharge: Plan for d/c TBD; Needs trach supplies, suction, VNA; Follow-up ENT Toño Pacheco MD, PGY1 09/01/22 9:30 AM ENT Team Pager: [phone] * Jazmyn Fletcher SLP - 09/01/2022 7:43 AM EDT Speech-Language Pathology Consult note: Total Treatment Time: 0 min. No charge Total Timed Code Treatment: 0 min. Subjective: Chart reviewed this AM 0730 Pt made NPO by team for PEG placement on 09/01/22. Per secure chat by ENT Team and RN notes, FEES on hold as of today. FSR recommends to consider FEES if Pt here till 09/04/22 - to evaluate swallow function and possiblePO as tolerated or with by swallow exercises. Recommend OP FSR visit to further evaluate Pt's swallow function and provide therapy as needed. FSR will continue to follow throughout the day as medical status permits. Please page me with questions or concerns. Thank you! Jazmyn Fletcher, MS, CFY-FSR Inpatient Rehabilitation Medicine Pager #[phone] * Akhil Martinez PA - 09/01/2022 6:54 AM EDT Plastic Surgery Inpatient Progress Note (Team Pager #[phone] Date of surgery: 08/21/22 CC/Procedure(s): Oromandibular reconstruction [...] checks Dressings/Drains: Strip and record drain output. Heshamvyn off 09/04. RLE STSG QOD dressing changes, next change 09/02. Antibiotics: Unasyn x5d (complete) Diet: G tube planned with Gen Surg Activity: WBAT RLE. May wear boot as needed for comfort. DVT prophylaxis: SCD left leg, lovenox Remainder of care per primary team CALLY Owens Plastic Surgery Inpatient Team Pager #[phone] * Hollie Vang RN - 08/31/2022 4:40 [...] as needed. Hollie Vang MSN-Ed, RN ACM machinist job setter Office of Care Management Pager #[phone] * Kimberly Jones RCP - 08/31/2022 4:12 [...] ENT to assess readiness for decannulation * Jazymn Fletcher, FSR - 08/31/2022 11:00 AM EDT Speech Therapy Note Patient Profile: Theresa Hollis is a 52 y.o. female admitted on 08/21/2022 history of O8U8rV2 SCCaof the left lateral tongue s/p hemiglossectomy, left neck dissection 1-5, skin graft, allograft (10/31/06) followed by adjuvant chemo XRT now presenting with ORN of the mandible. She underwent tracheostomy, neck exploration, mandible excision, and fibula free flap reconstruction 08/21 with ENT and PRS. Per ENT notes. Trach in place by ENT, Pt tolerating capping as of now. Team plans to decannulated today. FSR therapy summary: FSR following since 08/29/2022 for her swallow function [...] when she was willing to work with FSR, at bedside this wholesession. Communication done verbally [...] keep working on her PO intake as FSR left. Esophageal Phase: Appears to be WFL, [...] Pt was seen today for a follow-up FSR visit targeting her swallow function. present at [...] due to limited abduction in left VF. FSR continues to recommend puree and thin liquids and ice chips as tolerated with gradual advancement throughout the day. Place food on right side on mouth to avoid anterior loss from mouth during POintake. Follow strategy mentioned above mainly hold breath and swallow followed by cough& swallow to clear penetrated/aspirated material after every bite. FSR recommends FEES to observe Pt's swallow function and rule out silent aspiration/penetration with PO intake. Plans to conduct this study when ENT scopes Pt next time - possibly on 09/01/22. Pt would benefit from skilled FSR services to maximize swallow function to achieve [...] PO intake. Pt will benefit from continued FSR services while hospitalized Speech Therapy Goals: ONGOING unless otherwise stated Pt will tolerate least restrictive diet without evidence of dysphagia / aspiration. Pt / caregiver will be independent with aspiration precautions, diet modifications, and safe swallowing strategies. Pt will participate in FEES to evaluate swallow function and rule out silent aspiration. Plan: Therapy Frequency (FSR Eval): 3-5 times/wk Pt./family are in agreement with treatment plan. Total Minutes (Speech Language Pathology): 22 Thank you for this consult with this patient. Please feel free to page me with any questions or concerns. Jazmyn Fletcher MS, FSR-CF Pager #[phone] Speech Language Pathology Inpatient Rehabilitation Medicine * [...] discuss plan with provider Cheryl Pacheco MD #[id number] . Current Nutrition Regimen: Active Orders Diet Puree diet Frequency: Effective Now Number of Occurrences: Until Specified Order Comments: OK for ice chips as well TPN Medication Recent History (Show up to 3 orders; newest on the left.) Start date and time 08/31/2022 1800 TPN Adult [[id number]] Order Status Active Frequency Continuous (1800) Additives [...] 08/31/2022 CALCIUM 9.4 08/31/2022 PHOS 3.7 08/31/2022 [id number] 213 (L) 08/22/2022 No results found for: POCGLU Patient Lines/Drains/Airways Status Active Nutritional LDAs Name Placement date Placement time Site Days Peripheral IV Line - Single Lumen 08/30/222147 basilic vein (medial side of arm), left 22 gauge;1 in length 08/30/222147 -- 1 Closed/Suction Drain Right;Anterior Neck Bulb 15 Tristanian 08/21/22 194 Neck 10 Physical Findings Skin: surgical incisions [...] with electrolytes (Peripheral TPN) 42 mL/hr at 08/30/222154 Scheduled melatonin 6 mg Oral Daily after [...] encounter: 46 kg (101 lb 8 oz). [place] Body Weight (IBW) (kg): 50 Wt Readings [...] Diagnosis: Not enough data to assess (Fransisca, FARRUKHEN J Parenteral Enteral Nutr. 2012 July; 36(3): 273-83) Nutrition to continue to follow up while inpatient * Toño Pacheco MD - 08/31/2022 9:56 AM EDT OTOLARYNGOLOGY - HEAD & NECK SURGERY DAILY PROGRESS NOTE Name: Theresa Hollis Age/Sex: 52 y.o. female Attending: Roberth Lee MD Hospital Day: 11 10 Days Post-Op Patient ID/Reason for Admission Theresa Hollis is a 52 y.o. female with a history of K8X7hQ6 SCCa of the left lateral tongue s/p [...] on swallowing and will continue to see FSR daily. Will continue PPN for now. Wound [...] Meds) Bolus TF. Encourage PO. Working w FSR. Infectious Disease: WBC wnl, Unasyn x 5 days; Peridex Hematology: Hemoglobin wnl Endocrine: Home levothyroxine Consults: PRS Lines: Patient Lines/Drains/Airways Status Active Tubes/Lines/Drains Name Placement date Placement time Site Days Peripheral IV Line - Single Lumen 08/30/222147 basilic vein (medial side of arm), left 22 gauge;1 in length 08/30/222147 -- 1 Closed/Suction Drain Right;Anterior Neck Bulb 15 Tristanian 08/21/22 1947 Neck 10 Trach Airway 08/28/22 1616 08/28/22 1616 -- 3 Prophylaxis: Lovenox, SCD, activity per PRS Disposition: Floor status, Attempt Cardiopulmonary Resuscitation - Inpatient Discharge: Plan for d/c TBD; Needs trach supplies, suction, VNA; Follow-up ENT Toño Pacheco MD, PGY1 08/31/22 9:57 AM ENT Team Pager: [phone] * Akhil Martinez PA - 08/31/2022 7:06 AM EDT Images from the original note were not included. Plastic Surgery Inpatient Progress Note (Team Pager #[phone] Date of surgery: 08/21/22 CC/Procedure(s): Oromandibular reconstruction with right fibula free flap, skin graft from R thigh to right leg and submental opening Surgeon: Luz Elena Subjective/IE: LASHON. DHT removed yesterday, potential G tube pending repeat FSR eval. Tolerating trach capping. Objective: BP 128/74 [...] checks Dressings/Drains: Strip and record drain output. Rebekahyn off 09/04. RLE STSG QOD dressing changes, next change 09/02. Antibiotics: Unasyn x5d Diet: Appreciate FSR recommendations Activity: WBAT RLE. May wear boot as needed for comfort. DVT prophylaxis: SCD left leg, lovenox Remainder of care per primary team CALLY wOens Plastic Surgery Inpatient Team Pager #[phone] * Kimberly Mendoza RCP - 08/31/2022 5:39 [...] Bedside Yes 08/30/222044 Emergency Airway Sign at [facility]? Yes 08/30/222044 Trach Care Performed: Site cleaned/ inner cannula [...] Toño Pacheco MD ENT PGY-1 Personal Pager #[phone] ENT Team Pager #[phone] * Azul Mason RD - 08/30/2022 3:08 [...] y.o. female admitted on 08/21/2022 history of [id number] SCCaof the left lateral tongue s/p hemiglossectomy, left neck dissection 1-5, skin graft, allograft (10/31/06) followed by adjuvant chemo XRT now presenting with ORN of the mandible. She underwent tracheostomy, neck exploration, mandible excision, and fibula free flap reconstruction 08/21 with ENT and PRS. Per ENT notes. Trach in place by ENT, Pt tolerating capping as of now. Team plans to decannulated today. FSR therapy summary: FSR following since 08/29/2022 for her swallow function w/ ENT's recommendation Not to advance beyond purees Interval History: ENT plans to decannulated this day along with DHT removal. BIT provided consult on 08/29/22. Subjective: Pt seen once in morning when she came back from imaging and requested to rest and give her a break. When FSR re-visited this noon, Pt was willing to work with FSR, at bedside thiswhole session. Also reported Benadryl [...] Pt was seen today for a follow-up FSR visit targeting her swallow function. present at bedside. Oral laryngeal mechanism reveals mildly improved lingual function, dry secretions present which were cleaned using 4 wet swabs at the beginning of session. Pt continues to tolerate small 3mm size icechips placed on right side of oral cavity. No thin liquids attempted. FSR continues to recommend ice chips 3mm in size with gradual advancement as tolerated throughout the day with advancing to 1-2mlthin liquids by tsp. Place food on right side on mouth to avoid anterior loss from mouth during PO intake. Pt continues to need motivation and encouragement for continuing PO intake for diet advancement. Pt would benefit from skilled FSR services to maximize swallow function to achieve [...] PO intake. Pt will benefit from continued FSR services while hospitalized Speech Therapy Goals: ONGOING unless otherwise stated Pt will tolerate least restrictive diet without evidence of dysphagia / aspiration. Pt / caregiver will be independent with aspiration precautions, diet modifications, and safe swallowing strategies. Plan: Therapy Frequency (FSR Eval): 3-5 times/wk Pt./family are in agreement with treatment plan. Total Minutes (Speech Language Pathology): 24 Thank you for this consult with this patient. Please feel free to page me with any questions or concerns. Jazmyn Fletcher MS, FSR- Pager #[phone] Speech Language Pathology Inpatient Rehabilitation Medicine * Kimberly Jones, [facility] - 08/30/2022 11:22 AM EDT Respiratory Care [...] 52 y.o. female with a history of P3H4oB2 SCCa of the left lateral tongue s/p [...] Intake/Output Summary (Last 24 hours) at 08/30/2022 0904 Last data filed at 08/30/2022 0536 Gross [...] tolerating trach capping. Continues to work with FSR, will plan to remove NGT later today. [...] 6 Closed/Suction Drain Right;Anterior Neck Bulb 15 Tristanian 06/05/23 1947 Neck 9 Naso/Oral Tube 08/22/221814 nasogastric left nostril 08/22/22 181 left nostril 8 Trach Airway 08/28/22 1616 08/28/22 1616 -- 2 Prophylaxis: Lovenox, SCD, activity per PRS Disposition: Floor status, Attempt Cardiopulmonary Resuscitation - Inpatient Discharge: Plan for d/c as early as Sunday; Needs trach supplies, suction, VNA; Follow-up ENT Toño Pacheco MD, PGY1 08/30/22 9:55 AM ENT Team Pager: [phone] * Kelly Laguna MD - 08/30/2022 7:04 AM EDT Plastic Surgery Inpatient Progress Note (Team Pager #[phone] Date of surgery: 08/21/22 CC/Procedure(s): Oromandibular reconstruction with right fibula free flap, skin graft from R thigh to right leg and submental opening Surgeon: Luz Elena Subjective/IE: LASHON. Patient was seen by FSR yesterday and was advanced to sips and [...] in the last 72 hours. Invalid input(s): CHARBEL EVANGELISTA Micro: N/A Imaging/Studies: N/A Assessment: Theresa Hollis is a 52 y.o. female s/p oromandibular reconstruction with a fibula free flap 08/21. Recovering well overall. Currently working with FSR. Plan: Q4h flap checks Dressings/Drains: Strip and record drain output. Allevyn off 09/04. RLE stsg changed yesterday 08/29.baci and xeroform, QOD. Antibiotics: Unasyn x5d Diet: Continue TF as tolerated, FSR ok'd for sips and chips Activity: TTWB in CAM boot when out of bed DVT prophylaxis: SCD left leg, lovenox Remainder of care per primary team CALLY Baker Plastic Surgery Inpatient Team Pager #[phone] Attending: Plan discussed and agree as documented. Kelly Laguna MD Plastic Surgery * Analisa Johnson, [facility] - 08/30/2022 4:10 AM EDT RT Tracheostomy [...] Bedside Yes 08/29/222048 Emergency Airway Sign at [facility]? Yes 08/29/222048 Secretions: Small amounts, thick, osorio/yellow Assessment: Received Theresa with Nicho 4UN securely in place, capped, on room [...] anticipation of this plan, please refer to: [address] [address] or *for tube feed and supplies Also [facility] (Resp Supplies) Central Intake: [place]: [place]: -They cover all [place] *For trach supplies, suction and humidification. BRAD: 08/31/22 Hollie Vang MSN-Ed, RN ACM machinist job setter Office of Care Management Pager #[phone] * Ashok Reardon, OT - 08/29/2022 2:57 PM EDT Occupational Therapy Treatment Note Treatment Number OT: 2 Patient Dx: Theresa Hollis is a 52 y.o. female with a history of D0A0nD9 SCCa of the left lateraltongue s/p hemiglossectomy, [...] as needed Total Minutes, Occupational Therapy: 22 (dc , [id number]) Pager: [phone] Ashok Reardon OT Occupational Therapy Rehabilitation Department [...] Rouse MSW - 08/29/2022 1:57 PM EDT COLLECTION SYSTEMS MODELER received a consult regarding patient's request for an ENT support group. COLLECTION SYSTEMS MODELER met with patient, spouse, Stephan and mother, Becca. 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 COLLECTION SYSTEMS MODELER made a referral to MARION Betancourt ENT outpatient social service director who confirms she will follow up with this referral at patient's next follow up appointment. Patient given Aura Nation's information as well. A BIT consult has also been ordered by doctor for added emotional/therapeutic support. Overall, patient states, I will be much better once I get home. COLLECTION SYSTEMS MODELER to continue to provide psychosocial supports for patient and family if/when needed. * Tanja Wilson, PT - 08/29/2022 12:25 PM EDT Physical Therapy 08/29/22 1225 Evaluation & Treatment Document Type contact Total [...] (PT) home with supervision;home with home health TAJNA WILSON, PT Pager # [phone] In-Pt Rehab Medicine Orders received via chat that pt is now WBAT on RLE with cont use of boot for comfort. Have passed on to RN. Resume PT for gait training and for stair management to prepare for home DC when medically stable. * Abril Mustafa - 08/29/2022 11:20 AM EDT Room Manager Encounter Note Patient Name: Theresa Hollis : [id number] MR#: [id number] Admit Date: 08/21/2022 6:10 AM Hospital Day 8 days Narrative: Visited patient on unit rounds as follow up to consult request visit yesterday. The patient was sitting up in her chair and had a visitor. Assessment: The patient said that she had a sheet metal duct installer visit yesterday. She said she was fine today and did not need another visit. Intervention and Outcome: Told her I was glad she was better and wished her well going forward. She expressed thanks. Follow-up: No follow up required as currently assessed. Time in Direct Care: 5 minutes. Abril Mustafa 08/29/2022 * Jazmyn Fletcher FSR - 08/29/2022 10:12 AM EDT Speech Therapy Bedside Swallow Evaluation Patient Profile: Theresa Hollis is a 52 y.o. female admitted on 08/21/2022 history of V2W5fY6 SCCaof the left lateral tongue s/p hemiglossectomy, left neck dissection 1-5, skin graft, allograft (10/31/06) followed by adjuvant chemo XRT now presenting with ORN of the mandible. She underwent tracheostomy, neck exploration, mandible excision, and fibula free flap reconstruction 08/21 with ENT and PRS. Per ENT notes. Trach in place by ENT, Pt tolerating capping as of now. FSR consulted on 08/29/2022 to evaluate her swallow function and Not to advance beyond purees Prior Level of Swallow Function: Pt reports PO intake with soft solids and thin liquids. Subjective: Pt encountered at bed and later requested to position in chair for comfort. Family present in room during the time of evaluation. Is willing to work with FSR and as session progressed comments this is frustrating communicates using white board throughout the session wit FSR. Objective: Pt seen for evaluation today. Pain: In leg and around jaw - reports can work with FSR Respiratory Status: Room air Vision: WFL per [...] results and recommendations Assessment: Pt seen for FSR swallow evaluation to assess her swallow function at this time. Pt encountered at bedside and is presently communicating using [email or web address] board. Family present at bedside. Oral/laryngeal mechanism [...] pour into pharynxdue to h/o partial glossectomy. FSR recommends ice chips 3mm in size with gradual advancement as tolerated throughout the day. Place food on right side on mouth to avoid anterior loss from mouth during PO intake. Pt appeared briefly frustrated during the session and FSR provided support and encouragement duringthis time. Pt may benefit from BIT consult for mental/emotional support during the course of hospitalization. FSR will continue to evaluate and advance diet [...] PO intake. Pt will benefit from continued FSR services while hospitalized Speech Therapy Goals: (To be met by discharge) Pt will tolerate least restrictive diet without evidence of dysphagia / aspiration. Pt / caregiver will be independent with aspiration precautions, diet modifications, and safe swallowing strategies. Plan: Therapy Frequency (FSR Eval): 3-5 times/wk Pt./family are in agreement with treatment plan. Total Minutes (Speech Language Pathology): 42 Thank you for this consult with this patient. Please feel free to page me with any questions or concerns. Jazmyn Fletcher MS, FSR-CF Pager #[phone] Speech Language Pathology Inpatient Rehabilitation Medicine * Toño Pacheco MD - 08/29/2022 7:39 AM EDT OTOLARYNGOLOGY - HEAD & NECK SURGERY DAILY PROGRESS NOTE Name: Theresa Hollis Age/Sex: 52 y.o. female Attending: Roberth Lee MD Hospital Day: 9 8 Days Post-Op Patient ID/Reason for Admission Theresa Hollis is a 52 y.o. female with a history of B6H5mY8 SCCa of the left lateral tongue s/p [...] 5 Closed/Suction Drain Right;Anterior Neck Bulb 15 Tristanian 08/21/22 1947 Neck 8 Naso/Oral Tube 08/22/22 1815 nasogastric left nostril 08/22/22 1815 left nostril 7 Trach Airway 08/28/22 1616 08/28/22 1616 -- 1 Prophylaxis: Lovenox, SCD, activity per PRS Disposition: Floor status, Attempt Cardiopulmonary Resuscitation - Inpatient Discharge: Plan for d/c as early as Sunday; Needs trach supplies, suction, VNA; Follow-up ENT Toño Pacheco MD, PGY1 08/29/22 7:40 AM ENT Team Pager: [phone] * Dimitry Marin, PA - 08/29/2022 7:12 AM EDT Images from the original note were not included. Plastic Surgery Inpatient Progress Note (Team Pager #[phone] Date of surgery: 08/21/22 CC/Procedure(s): Oromandibular reconstruction [...] Unasyn x5d Diet: Continue TF as tolerated, FSR okay for today Activity: TTWB in CAM boot when out of bed DVT prophylaxis: SCD left leg, lovenox May start PT Remainder of care per primary team CALLY Baker Plastic Surgery Inpatient Team Pager #[phone] * Sandra Bergman, [facility] - 08/29/2022 4:47 AM EDT RT Tracheostomy [...] who have questions please contact the health respiratory care technician that requested your imaging first. Electronically signed by: LILY CELESTE MD, [facility] ([phone]), at 08/22/2022 5:39 PM Airway: Trach Airway [...] Yes 08/29/22 0400 Emergency Airway Sign at [facility]? Yes 08/29/22 0400 Trach Care Performed: Trach [...] 52 y.o. 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 She underwent tracheostomy, neck exploration, mandible excision, and fibula free flap reconstruction 08/21 with ENT and PRS. Total duration of encounter: 7 days Social History: Patient lives with Harinder in a single level home in [facility]. Has ~ 15 IRENE without rails. Normallyindependent without device. 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 BETTYE EGAN, PT Pager: [phone] Physical Therapy Inpatient Rehabilitation Department * Chitra Gerardo, RD - 08/28/2022 3:13 PM EDT Nutrition [...] discuss plan with provider Cheryl Pacheco MD #[id number] . Current Nutrition Regimen: Active Orders Diet NPO diet (Give Meds) Frequency: Effective Now Number of Occurrences: Until Specified Assessment: Lab Results Component Value Date NA 137 08/26/2022 K 3.8 08/26/2022 CL 102 08/26/2022 CO2 25 08/26/2022 BUN 16 08/26/2022 CREATININE 0.51 (L) 08/26/2022 ESTGFR 113 08/26/2022 MAGNESIUM 0.87 08/26/2022 CALCIUM 8.5 08/26/2022 PHOS 2.6 08/26/2022 [id number] 213 (L) 08/22/2022 No results found for: [...] 4 Closed/Suction Drain Right;Anterior Neck Bulb 15 Tristanian 08/21/22 1947 Neck 7 Physical Findings Skin: [...] oral powder, magnesium sulfate OR magnesium sulfate, wbbttu-zzhngtga-krvljlu DR AND sodium bicarbonate, sodium chloride 0.9 % (flush), lidocaine, ondansetron, prochlorperazine Anthropometrics: Admit Weight: 43.91 kg Estimated body mass index is 18.56 kg/m?? as calculated from the following: Height as of this encounter: 157.5 cm (5' 2). Weight as of this encounter: 46 kg (101 lb 8 oz). [place] Body Weight (IBW) (kg): 50 Wt Readings [...] Jessica Cazares - 08/28/2022 2:41 PM EDT Room Manager Encounter Note Patient Name: Theresa Hollis : [id number] MR#: [id number] Admit Date: 08/21/2022 6:10 AM Hospital Day 7 days Narrative: This press writer responded to a spiritual care consult. Assessment: Patient desired to have conversation with sheet metal duct installer alone, she utilized the white board for clear communication, reflecting on and processing the emotions of her experience. Intervention and Outcome: This press writer provided spiritual care through reflective listening, emotional validation and words ofblessing. Follow-up: Patient voiced appreciation for visit and let this press writer know she would reach out to Rns to page if a sheet metal duct installer visit was desired again. Time in Direct [...] 52 y.o. female with a history of J7Y1gJ7 SCCa of the left lateral tongue s/p [...] VSS - Would like to speak with BIT/sheet metal duct installer regarding adjustment to illness Vitals Last value [...] is tolerating trach capping intermittently. Will consult BIT/sheet metal duct installer this AM to provide support. Swallow pending [...] 4 Closed/Suction Drain Right;Anterior Neck Bulb 15 Tristanian 08/21/22 1947 Neck 7 Naso/Oral Tube 08/22/22 1815 nasogastric left nostril 08/22/22 1815 left nostril 6 Trach Airway 08/25/22 1616 08/25/22 1616 -- 3 Prophylaxis: Lovenox, SCD, activity per PRS Disposition: Floor status, Attempt Cardiopulmonary Resuscitation - Inpatient Discharge: Plan for d/c as early as Sunday; Needs trach supplies, suction, VNA; Follow-up ENT Toño Pacheco MD, PGY1 08/28/22 8:17 AM ENT Team Pager: [phone] * Skylar Cloud, HOSPICE NURSE PRACTITIONER - 08/28/2022 7:53 AM EDT Images from the original note were not included. Plastic Surgery Inpatient Progress Note (Team Pager #[phone] Date of surgery: 08/21/22 CC/Procedure(s): Oromandibular reconstruction [...] PT Remainder of care per primary team FSR - Hold for now (per GLF) HOld on GT for now (per GLF) Skylar Cloud APRN Plastic Surgery Inpatient Team Pager #[phone] * Skylar Cloud APRN - 08/28/2022 6:53 AM EDT Images from the original note were not included. Plastic Surgery Inpatient Progress Note (Team Pager #[phone] Date of surgery: 08/21/22 CC/Procedure(s): Oromandibular reconstruction [...] PT Remainder of care per primary team FSR pending discussion with Dr. Luz Elena Cloud APRN Plastic Surgery Inpatient Team Pager #[phone] * Sandra Bergman, [facility] - 08/28/2022 5:27 AM EDT RT Tracheostomy [...] who have questions please contact the health respiratory care technician that requested your imaging first. Electronically signed by: LILY CELESTE MD, [facility] ([phone]), at 08/22/2022 5:39 PM Airway: Trach Airway 08/25/22 1616 (Active) Tracheal Airway Size Verfication 6 mm 08/28/22 0334 Appearance clean 08/28/22 0334 Tube Securement foam trach ties 08/28/22 0334 Trach Cap Status uncapped/unplugged 08/28/22 0334 Tube Care/Reposition inner cannula changed;site care done;securement device changed 08/27/222044 Manual Resuscitator at Bedside Yes 08/28/22 0334 Spare Trach At Bedside Yes 08/28/22 0334 Trach ToGo kit at Bedside Yes 08/28/22 0334 Emergency Airway Sign at [facility]? Yes 08/28/22 0334 Trach Care Performed: Trach Airway 08/25/22 1616-Tube Care/Reposition: inner cannula changed, site care done, securement device changed [REMOVED] Trach Airway 08/21/22 1948-Tube Care/Reposition: inner cannula changed, site care done No changes overnight. Sandra Bergman RCP * Rina Vang RCP - 08/27/2022 3:52 PM EDT RT Tracheostomy Note Oxygen Delivery: Interface: Heated trach collar Flow: 40 L/min FiO2: 21 % Skin Assessment: WNL Airway: Trach Airway 08/25/22 161 (Active) Tracheal Airway Size Verfication 6 mm 08/27/22830 Appearance clean 08/27/22830 Tube Securement foam trach ties 08/27/22830 Trach Cap Status uncapped/unplugged 08/27/22830 Tube Care/Reposition inner cannula changed;site care done 08/27/22830 Manual Resuscitator at Bedside Yes 08/27/22830 Spare Trach At Bedside Yes 08/27/22830 Trach ToGo kit at Bedside Yes 08/27/22830 Emergency Airway Sign at [facility]? Yes 08/27/22830 Trach Care Performed: Trach Airway 08/25/22 161-Tube Care/Reposition: inner cannula changed, site care done [REMOVED] Trach Airway 08/21/221947-Tube Care/Reposition: inner cannula changed, site care done [...] 52 y.o. female with a history of D8K1fL9 SCCa of the left lateral tongue s/p [...] 3 Closed/Suction Drain Right;Anterior Neck Bulb 15 Tristanian 08/21/22 1947 Neck 6 Naso/Oral Tube 08/22/22 1815 nasogastric left nostril 08/22/22 1815 left nostril 5 Trach Airway 08/25/22 1616 08/25/22 1616 -- 2 Prophylaxis: Lovenox, SCD, activity per PRS Disposition: Floor status, Attempt Cardiopulmonary Resuscitation - Inpatient Discharge: Plan for d/c as early as Sunday; Needs trach supplies, suction, VNA; Follow-up ENT Ilda Estrada MD, PGY3 08/27/22 12:44 PM ENT Team Pager: [phone] * Syara Dumont MD - 08/27/2022 7:54 AM EDT Plastic Surgery Inpatient Progress Note (Team Pager #[phone] Date of surgery: 08/21/22 CC/Procedure(s): Oromandibular reconstruction [...] Dumont MD Plastic Surgery Inpatient Team Pager #[phone] * Estefany Larson, [facility] - 08/27/2022 5:32 AM EDT Respiratory Care [...] (Active) Tracheal Airway Size Verfication 6 mm 08/26/22758 Appearance clean;dry 08/26/22 075 Tube Securement foam trach ties 08/26/22 075 Trach Cap Status uncapped/unplugged 08/26/22 075 Tube Care/Reposition site care done;inner cannula changed 08/26/22 075 Manual Resuscitator at Bedside Yes 08/26/22 075 Spare Trach At Bedside Yes 08/26/22 075 Trach ToGo kit at Bedside Yes 08/26/22 075 Emergency Airway Sign at [facility]? Yes 08/26/22 075 Trach Care Performed: Trach Airway 08/25/22 1616-Tube [...] Plastic Surgery Inpatient Progress Note (Team Pager #[phone] Date of surgery: 08/21/22 CC/Procedure(s): Oromandibular reconstruction [...] Dumont MD Plastic Surgery Inpatient Team Pager #[phone] Attending: Pt seen and examined with Dr [...] 52 y.o. female with a history of A8D9sH4 SCCa of the left lateral tongue s/p [...] 2 Closed/Suction Drain Right;Anterior Neck Bulb 15 Tristanian 08/21/22 1947 Neck 5 Naso/Oral Tube 08/22/22 1815 nasogastric left nostril 08/22/22 1815 left nostril 4 Trach Airway 08/25/22 1616 08/25/22 1616 -- 1 Prophylaxis: Lovenox, SCD, activity per PRS Disposition: Floor status, Attempt Cardiopulmonary Resuscitation - Inpatient Discharge: Plan for d/c TBD; Needs trach supplies, suction, VNA; Follow-up ENT Ilda Estrada MD, PGY3 08/26/22 11:34 AM ENT Team Pager: [phone] * Sarita Spence, [facility] - 08/26/2022 4:25 AM EDT RT Tracheostomy Note Oxygen Delivery: Interface: Heated trach collar Flow: 40 L/min FiO2: 21 % Skin Assessment: Barrier Used: None. Trach changed Inhaled Medications: None Airway: Trach Airway 08/25/22 1616 (Active) Tracheal Airway Size Verfication 6 mm 08/26/22256 Appearance clean;dry 08/26/22256 Tube Securement foam trach ties 08/26/22256 Trach Cap Status uncapped/unplugged 08/26/22256 Manual Resuscitator at Bedside Yes 08/26/22 025 Spare Trach At Bedside Yes 08/26/22 025 Trach ToGo kit at Bedside Yes 08/26/22 025 Emergency Airway Sign at [facility]? Yes 08/26/22 0257 Trach Care Performed: Trach [...] Yes 08/25/22 1330 Emergency Airway Sign at [facility]? Yes 08/25/22 1330 Trach Care Performed: Trach Airway 08/21/221947-Tube Care/Reposition: inner cannula changed, site care done Secretions: Thin/yellow Assessment: Received patient with 6CN in placed, team replaced with 6UN. Plan: Continue to monitor and support. Rina Vang RCP * Ilda Estrada MD - 08/25/2022 4:14 PM EDT Pre-Procedure Dx: H/O tracheostomy (Z98.890) Post-procedure Dx: same Procedure: Tracheostomy Tube Change ([id number]) Pre-procedure checklist: Correct Patient Correct time Current [...] discuss plan with provider Cheryl Pacheco MD #[id number] . Current Nutrition Regimen: Active Orders Diet NPO diet (Give Meds) Frequency: Effective Now Number of Occurrences: Until Specified Assessment: Lab Results Component Value Date NA 136 08/25/2022 K 3.4 (L) 08/25/2022 CL 100 08/25/2022 CO2 23 08/25/2022 BUN 9 08/25/2022 CREATININE 0.50 (L) 08/25/2022 ESTGFR 113 08/25/2022 MAGNESIUM 0.82 08/25/2022 CALCIUM 8.4 (L) 08/25/2022 PHOS 2.8 08/25/2022 [id number] 213 (L) 08/22/2022 No results found for: [...] gauge 08/24/22 0100 -- 1 NPWT 08/21/22 1825 leg 08/21/22 182 -- 4 Closed/Suction Drain Right;Anterior Neck Bulb 15 Tristanian 08/21/22 1947 Neck 4 Physical Findings Skin: [...] sat monitor, IV sites, NGT Other Sites: FARRUKHCasper Last Bowel Movement: 08/25/22 Intake/Output Summary (Last [...] sulfate, HYDROmorphone OR HYDROmorphone OR [DISCONTINUED] HYDROmorphone, hzskgb-mlhpnmnx-[id number] DR AND sodium bicarbonate, sodium chloride 0.9 % (flush), lidocaine, ondansetron, prochlorperazine Anthropometrics: Admit Weight: 43.91 kg Estimated body mass index is 18.83 kg/m?? as calculated from the following: Height as of this encounter: 157.5 cm (5' 2). Weight as of this encounter: 46.7 kg (102 lb 15.3 oz). [place] Body Weight (IBW) (kg): 50 Wt Readings [...] MS, RD, LDN Clinical Dietitian Pager # [phone] * Toño Pacheco MD - 08/25/2022 8:57 AM EDT OTOLARYNGOLOGY - HEAD & NECK SURGERY DAILY PROGRESS NOTE Name: Theresa Hollis Age/Sex: 52 y.o. female Attending: Roberth Lee MD Hospital Day: 5 4 Days Post-Op Patient ID/Reason for Admission Theresa Hollis is a 52 y.o. female with a history of N4U3aK4 SCCa of the left lateral tongue s/p [...] 1 Closed/Suction Drain Right;Anterior Neck Bulb 15 Tristanian 08/21/221946 Neck 4 Naso/Oral Tube 08/22/221814 nasogastric left nostril 08/22/221814 left nostril 3 Trach Airway 08/21/22194708/21/221947 -- 4 Prophylaxis: Lovenox, SCD, activity per PRS Disposition: Floor status, Attempt Cardiopulmonary Resuscitation - Inpatient Discharge: Plan for d/c TBD; Needs trach supplies, suction, VNA; Follow-up ENT Toño Pacheco MD, PGY1 08/25/22 8:57 AM ENT Team Pager: [phone] * Akhil Martinez PA - 08/25/2022 7:48 AM EDT Plastic Surgery Inpatient Progress Note (Team Pager #[phone] Date of surgery: 08/21/22 CC/Procedure(s): Oromandibular reconstruction [...] CALLY Owens Plastic Surgery Inpatient Team Pager #[phone] * Cherelle Resendiz, [facility] - 08/25/2022 6:14 AM EDT RT Tracheostomy Note Oxygen Delivery: Interface: Heated trach collar Flow: 30 L/min FiO2: 21 % Barrier Used: drain sponge Airway: Trach Airway 08/21/22 1948 (Active) Tracheal Airway Size Verfication 6 mm 08/24/222004 Appearance crusty 08/24/222004 Tube Securement sutures 08/24/222004 Cuff Pressure (cm H2O/mLH2O) 0 08/24/222004 Trach Cap Status uncapped/unplugged 08/24/222004 Tube Care/Reposition dressing changed;inner cannula changed;site care done 08/24/222004 Manual Resuscitator at Bedside Yes 08/24/222004 Spare Trach At Bedside Yes 08/24/222004 Trach ToGo kit at Bedside Yes 08/24/222004 Emergency Airway Sign at [facility]? Yes 08/24/222004 Trach Care Performed: Trach Airway [...] able to discuss plan with provider ISRAEL Parker 2 Provider Julian Root APRN . Current [...] CALCIUM 8.2 (L) 08/24/2022 PHOS 2.5 08/24/2022 [id number] 213 (L) 08/22/2022 No results found for: POCGLU Patient Lines/Drains/Airways Status Active Nutritional LDAs Name Placement date Placement time Site Days Naso/Oral Tube 08/22/22 181 nasogastric left nostril 08/22/22 181 left nostril 2 Peripheral IV Line - Single Lumen 08/21/22 0838 18 gauge 08/21/22 0838 -- 3 Peripheral IV Line - Single Lumen 08/24/22 0100 cephalic vein (lateral side of arm), left 20 gauge 08/24/22 0100 -- less than 1 NPWT 08/21/22 1825 leg 08/21/22 1825 -- 3 Closed/Suction Drain Right;Anterior Neck Bulb 15 Tristanian 08/21/22 1947 Neck 3 Oxygen Therapy / [...] sites, ECG Leads, BP Cuff Other Sites: trach, FARRUKH Last Bowel Movement: 08/22/22 Intake/Output Summary (Last [...] sulfate, HYDROmorphone OR HYDROmorphone OR [DISCONTINUED] HYDROmorphone, tefipy-qpwodplo-wmpweoc DR AND sodium bicarbonate, sodium chloride 0.9 % (flush), lidocaine, ondansetron, prochlorperazine Anthropometrics: Admit Weight: 43.91 kg Estimated body mass index is 18.83 kg/m?? as calculated from the following: Height as of this encounter: 157.5 cm (5' 2). Weight as of this encounter: 46.7 kg (102 lb 15.3 oz). [place] Body Weight (IBW) (kg): 50 Wt Readings [...] MS, RD, LDN Clinical Dietitian Pager # [phone] * Viola Kathleen, PT - 08/24/2022 12:24 PM EDT Physical Therapy Intervention Note Treatment Number PT: 2 Patient profile: Theresa Hollis is a 52 y.o. 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 She underwent tracheostomy, neck exploration, mandible excision, and fibula free flap reconstruction 08/21 with ENT and PRS. Total duration of encounter: 3 days Social History: Patient lives with Harinder in a single level home in [facility]. Has ~ 15 IRENE without rails. Normallyindependent without device. 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 Time IN / OUT: 5554-7610 Total Minutes, Physical Therapy: 47 Billing Code: x3 TEF Thank you for this consult. Viola Kathleen, PT Pager: [phone] Physical Therapy Inpatient Rehabilitation Department * Toño Pacheco MD - 08/24/2022 9:14 AM EDT OTOLARYNGOLOGY - HEAD & NECK SURGERY DAILY PROGRESS NOTE Name: Theresa Hollis Age/Sex: 52 y.o. female Attending: Roberth Lee MD Hospital Day: 4 3 Days Post-Op Patient ID/Reason for Admission Theresa Hollis is a 52 y.o. female with a history of P9Z0cV2 SCCa of the left lateral tongue s/p [...] 3.7 CL 97* 95* 96* CO2 24 25 BUN 10 8 7* CREATININE 0.56* [...] 1 Closed/Suction Drain Right;Anterior Neck Bulb 15 Tristanian 08/21/221946 Neck 3 Naso/Oral Tube 08/22/221814 nasogastric left nostril 08/22/221814 left nostril 2 Trach Airway 08/21/22194708/21/221947 -- 3 Prophylaxis: Lovenox, SCD, activity per PRS Disposition: Floor status, Attempt Cardiopulmonary Resuscitation - Inpatient Discharge: Plan for d/c TBD; Needs trach supplies, suction, VNA; Follow-up ENT Toño Pacheco MD, PGY1 08/24/22 9:15 AM ENT Team Pager: [phone] * Melvi Storm, RN - 08/24/2022 8:01 AM EDT OUTCOME [...] kit and obturator at bedside * Nadine eMndoza APRN - 08/24/2022 7:59 AM EDT Plastic Surgery Inpatient Progress Note (Team Pager #[phone] Date of surgery: 08/21/22 CC/Procedure(s): Oromandibular reconstruction [...] MENDOZA APRN Plastic Surgery Inpatient Team Pager #[phone] * Sultana Pascual RCP - 08/24/2022 4:31 [...] trach. Emergency equipment & airway sign @ [facility]. Pt transferred to step down unit at approximately 0215; report given to RT covering unit. PLAN: Continue respiratory supportive care with trach care. Sultana Pascual RCP * Princess Oliver RN - 08/24/2022 2:00 AM EDT Theresa Lutz Bunny downgraded/transferred to ISCU room 84. Report called [...] who have questions please contact the health respiratory care technician that requested your imaging first. Electronically signed by: LILY CELESTE MD, [facility] ([phone]), at 08/22/2022 5:39 PM Airway: Trach Airway 08/21/221947 (Active) Tracheal Airway Size Verfication 6 mm 08/23/22744 Appearance clean;crusty 08/23/22744 Tube Securement sutures 08/23/22744 Trach Cap Status uncapped/unplugged 08/23/22744 Tube Care/Reposition dressing changed;inner cannula changed;site care done 08/23/22744 Manual Resuscitator at Bedside Yes 08/23/2245 Spare Trach At Bedside Yes 08/23/22744 Trach ToGo kit at Bedside Yes 08/23/22744 Emergency Airway Sign at [facility]? Yes 08/23/22744 Trach Care Performed: Trach Airway 08/21/221947-Tube Care/Reposition: dressing changed, inner cannula changed, site care done Assessment: Patient received with sutured [address], on HTC 40L/21%. Flow weaned to 35L. No other changes made. Trach care completed, TTGK at bedside, emergency airway sign at [facility]. Plan: Care for airway, provide humidification. RT Carmelina * Viola Kathleen, PT - 08/23/2022 2:21 PM EDT Physical Therapy Evaluation Patient profile: Theresa Hollis is a 52 y.o. female with a history of H7U1eT5 SCCa of the left lateral tongue s/p [...] MANDIBLE performed by Alfred Vital MD at [facility] PRO DEBRIDEMENT BONE MUSCLE &/FASCIA 20 SQ CM/< Bilateral 11/17/2019 DEBRIDEMENT SKIN, SUBCU, MUSCLE, BONE, HEAD/NECK (WRVU 4.1) performed by Keyur Ng MD at [facility] MAIN OR PRO INJECTION PLATELET PLASMA WITH IMAGE, HARVEST/PREP 11/17/2019 INJECTION(S), PLATELET RICH PLASMA, ANY SITE, INCLUDING IMAGE GUIDANCE, HARVESTING AND PREPARATION WHEN PERFORMED performed by Keyur Ng MD at [facility] MAIN OR PRO REMOVAL ERUPTED TOOTH WITH ELEVATION OF MUCOPERIOSTEAL FLAP N/A 05/06/2014 SURGICAL EXTRACTIONS REQUIRING ELEVATION OF MUCOPERIOSTEAL FLAP AND REMOVAL OF BONE OR SECTION OF TOOTH performed by Alfred Vital MD at [facility] MAIN OR PRO REMOVAL ERUPTED TOOTH WITH ELEVATION OF MUCOPERIOSTEAL FLAP Bilateral 11/17/2019 SURGICAL EXTRACTIONS REQUIRING ELEVATION OF MUCOPERIOSTEAL FLAP AND REMOVAL OF BONE OR SECTION OF TOOTH (WRVU 1.09) performed by Keyur Ng MD at [facility] MAIN OR SKIN GRAFT Social History: Patient lives with Harinder in a single level home in [facility]. Has ~ 15 IRENE without rails. Normallyindependent without device. 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 Time IN / OUT: 5296-1080 Total Minutes, Physical Therapy: 35 Billing Code: x1 mod eval Thank you for this consult. Viola Kathleen, PT Pager: [phone] Physical Therapy Inpatient Rehabilitation Department * Toño Pahceco MD - 08/23/2022 10:47 AM EDT OTOLARYNGOLOGY - HEAD & NECK SURGERY DAILY PROGRESS NOTE Name: Theresa Hollis Age/Sex: 52 y.o. female Attending: Roberth Lee MD Hospital Day: 3 2 Days Post-Op Patient ID/Reason for Admission Theresa Hollis is a 52 y.o. female with a history of K9N7nA1 SCCa of the left lateral tongue s/p [...] 2 Closed/Suction Drain Right;Anterior Neck Bulb 15 Tristanian 08/21/221946 Neck 2 Naso/Oral Tube 08/22/221814 nasogastric left nostril 08/22/221814 left nostril 1 Trach Airway 08/21/22194708/21/221947 -- 2 Prophylaxis: Lovenox, SCD, activity per PRS Disposition: Step down status, Attempt Cardiopulmonary Resuscitation - Inpatient Discharge: Plan for d/c TBD; Needs trach supplies, suction, VNA; Follow-up ENT Toño Pacheco MD, PGY1 08/23/22 10:48 AM ENT Team Pager: [phone] * Kelly Laguna MD - 08/23/2022 8:01 AM EDT Plastic Surgery Inpatient Progress Note (Team Pager #[phone] Date of surgery: 08/21/22 CC/Procedure(s): Oromandibular reconstruction [...] CALLY Baker Plastic Surgery Inpatient Team Pager #[phone] Attending: Pt seen and examined. Introral repair [...] HTC. Will continue to monitor and support. Jennifer Wong, RT * Migel Eaton MD - 08/22/2022 4:50 [...] Eaton, PGY-2 Plastic & Reconstructive Surgery Pager: [phone] * Lenora Jorge RD - 08/22/2022 1:57 [...] 08/22/2022 CALCIUM 8.8 08/22/2022 PHOS 2.7 08/22/2022 [id number] 213 (L) 08/22/2022 Lab Results Component Value Date POCGLU 172 08/21/2022 Patient Lines/Drains/Airways Status Active Nutritional LDAs Name Placement date Placement time Site Days Peripheral IV Line - Single Lumen 08/21/22 0838 18 gauge 08/21/22 0838 -- 1 Peripheral IV Line - Single Lumen 08/21/222105 median vein (underside of arm), left 20 gauge 08/21/222105 -- 1 NPWT 08/21/22 1825 leg 08/21/22 182 -- 1 Closed/Suction Drain Right;Anterior Neck Bulb 15 Tristanian 08/21/22 1947 Neck 1 Urethral Catheter 08/21/22 [...] Other Sites: farrukh, idb Last Bowel Movement: (GRAPHIC TECHNICIAN) Intake/Output Summary (Last 24 hours) at 08/22/2022 [...] encounter: 46.9 kg (103 lb 6.3 oz). [place] Body Weight (IBW) (kg): 50 Wt Readings [...] Diagnosis: Not enough data to assess (Srinivas baker al, JPEN J Parenteral Enteral Nutr. 2011; 36(3): 273-83) Nutrition to continue to follow up while inpatient Thank you, Lenora Jorge RDN, CNSC, LD Clinical Nutrition * Lesly Canela LINUX DEVELOPER - 08/22/2022 12:04 PM EDT Respiratory Therapy [...] Plastic Surgery Inpatient Progress Note (Team Pager #[phone]) Date of surgery: 08/21/22 CC/Procedure(s): Oromandibular reconstruction [...] primary team Plastic Surgery Inpatient Team Pager #[phone] Attending: Pt seen and examined. I agree [...] 52 y.o. female with a history of V1B7eU9 SCCa of the left lateral tongue s/p [...] 1 Closed/Suction Drain Right;Anterior Neck Bulb 15 Tristanian 08/21/221946 Neck 1 Urethral Catheter 08/21/22 0845 14 08/21/22 0845 -- 1 Trach Airway 08/21/22194708/21/221947 -- 1 Prophylaxis: OK for lovenox tonight, SCD, activity per PRS Disposition: Critical Care status, Attempt Cardiopulmonary Resuscitation - Inpatient Discharge: Plan for d/c TBD; Needs trach supplies, suction, VNA; Follow-up ENT Toño Pacheco MD, PGY1 08/22/22 8:10 AM ENT Team Pager: [phone] * Jatinder Myers MD - 08/22/2022 12:30 [...] doppler signal present. Cap refill <2 sec. [place]. WWP Assessment/Plan: Theresa Hollis is a 52 y.o. female s/p mandible reconstruction with free fibula flap currently in stable condition and recovering well. - pain well controlled - hemodynamically stable - UOP adequate Jatinder Myers MD Pager: [phone] * Jatinder Myers MD - 08/22/2022 12:29 AM EDT OTOLARYNGOLOGY - HEAD & NECK SURGERY POST OP CHECK Name: Theresa Hollis Age/Sex: 52 y.o. female Attending: Roberth Lee MD Hospital Day: 2 1 Day Post-Op Patient ID/Reason for Admission Theresa Hollis is a 52 y.o. female with a history of E5T4tR7 SCCa of the left lateral tongue s/p [...] PGY1 08/22/22 12:29 AM ENT Team Pager: [phone] * Jennifer Wong RT - 08/21/2022 8:30 PM EDT AMV [...] barrier technique was used throughout. A 4 Tristanian glide catheter was placed as a nasoenteric [...] with an 8mm balloon catheter. A 16 Tristanian balloonretained gastrostomy tube was placed. The retention [...] of the left lateral tongue; need for usp enteral accessfor nutrition IR workflow: Procedure request [...] ALKPHOS 42 12/06/2016 Allergies: Tylenol [acetaminophen], Allergenic khuecsi-wsoj-itekz, Peanut, Benzocaine, and Birch Imaging: No relevant [...] 60 tablet 5 fluocinolone and shower cap (Brooks-Smoothe/FS Scalp Oil) 0.01 % Oil Apply topically [...] ca in 2006 with TSH 105 in 4/09E03.9 Tongue cancer C02.9 Tinnitus H93.19 History of [...] Date GLOSSECTOMY Right partial LYMPHADENECTOMY SND 1-5 MI PREP FACE/ORAL PROST MANDIBULAR N/A 08/21/2022 IMPRESSION AND CUSTOM PREPARATION,MANDIBULAR RESECTION PROSTHESIS (WRVU 22.85) performed by Keyur Ng MD at [facility] MAIN OR PRO ADJ TISS XFER HEAD, FAC, HAND <10SQCM 08/21/2022 ADJ.TISSUE TRANSFER, REARRANGEMENT, 10SQ.CM OR LESS, NECK (WRVU 8.6) performed by Kelly Laguna MDat [facility] MAIN OR PRO BONE BIOPSY,TROCAR/NEEDLE SUPERF Left 05/06/2014 BIOPSY BONE, TROCAR OR NEEDLE, SUPERFICIAL, MANDIBLE performed by Alfred Vital MD at [facility] PRO BONE-SKIN GRAFT, MICROVASCULAR 08/21/2022 @FLAP, FREE OSTEOCUTANEOUS W MICROVASC, FIBULA (WRVU 45.43) performed by Kelly Laguna MD at [facility] MAIN OR PRO CERVICAL LYMPHADECTOMY MODIFIED RADICAL NECK DISSECTION Right 08/21/2022 @CERVICAL LYMPHADENECTOMY (MODIFIED RADICAL NECK DISSECTION)-JANA , ROBOTIC (WRVU 23.95) performed by Roberth Lee MD at [facility] MAIN OR PRO DEBRIDEMENT BONE MUSCLE &/FASCIA 20 SQ CM/< Bilateral 11/17/2019 DEBRIDEMENT SKIN, SUBCU, MUSCLE, BONE, HEAD/NECK (WRVU 4.1) performed by Keyur Ng MD at [facility] MAIN OR PRO EXCISION OF BONE, LOWER JAW Bilateral 08/21/2022 EXCISION OF BONE, MANDIBLE (WRVU 10.03) performed by Roberth Lee MD at [facility] MAIN OR PRO INJECTION PLATELET PLASMA WITH IMAGE, HARVEST/PREP 11/17/2019 INJECTION(S), PLATELET RICH PLASMA, ANY SITE, INCLUDING IMAGE GUIDANCE, HARVESTING AND PREPARATION WHEN PERFORMED performed by Keyur Ng MD at [facility] MAIN OR PRO RECONSTR JAW, FULL ENDO IMPLNT N/A 08/21/2022 RECONSTRUCT MANDIBLE OR MAXILLA, ENDOSTEAL IMPLANT, COMPLETE (WRVU 18.77) performed by Keyur Ng MD at [facility] MAIN OR PRO RECONSTR MANDIBLE, BONE PLATE 08/21/2022 RECONSTRUCT MANDIBLE, EXTRAORAL, W/ TRANSOSTEAL BONE PLATE (WRVU 13.62) performed by Kelly Laguna MD at [facility] OR PRO REMOVAL ERUPTED TOOTH WITH ELEVATION OF MUCOPERIOSTEAL FLAP N/A 05/06/2014 SURGICAL EXTRACTIONS REQUIRING ELEVATION OF MUCOPERIOSTEAL FLAP AND REMOVAL OF BONE OR SECTION OF TOOTH performed by Alfred Vital MD at [facility] OR [facility] REMOVAL ERUPTED TOOTH WITH ELEVATION OF MUCOPERIOSTEAL FLAP Bilateral 11/17/2019 SURGICAL EXTRACTIONS REQUIRING ELEVATION OF MUCOPERIOSTEAL FLAP AND REMOVAL OF BONE OR SECTION OF TOOTH (WRVU 1.09) performed by Keyur Ng MD at [facility] OR PRO SPLIT GRFT TRUNK, ARM, LEG <100SQCM N/A 08/21/2022 SPLIT THICK SKIN GRAFT,100 SQ CM OR LESS, LEGS (WRVU 9.9) performed by Kelly Laguna MD at [facility] OR [facility] TRACHEOSTOMY, PLANNED N/A 08/21/2022 TRACHEOSTOMY, PLANNED (WRVU 5.56) performed by Roberth Lee MD at [facility] OR SKIN GRAFT Social History and Habits: [...] procedure) 09/01/2022 Princess Abarca PA-C * Dona Mao Jeff, DO - 08/21/2022 8:30 PM EDT Critical [...] MANDIBLE performed by Alfred Vital MD at [facility] PRO DEBRIDEMENT BONE MUSCLE &/FASCIA 20 SQ CM/< Bilateral 11/17/2019 DEBRIDEMENT SKIN, SUBCU, MUSCLE, BONE, HEAD/NECK (WRVU 4.1) performed by Keyur Ng MD at [facility] MAIN OR PRO INJECTION PLATELET PLASMA WITH IMAGE, HARVEST/PREP 11/17/2019 INJECTION(S), PLATELET RICH PLASMA, ANY SITE, INCLUDING IMAGE GUIDANCE, HARVESTING AND PREPARATION WHEN PERFORMED performed by Keyur Ng MD at [facility] MAIN OR PRO REMOVAL ERUPTED TOOTH WITH ELEVATION OF MUCOPERIOSTEAL FLAP N/A 05/06/2014 SURGICAL EXTRACTIONS REQUIRING ELEVATION OF MUCOPERIOSTEAL FLAP AND REMOVAL OF BONE OR SECTION OF TOOTH performed by Alfred Vital MD at [facility] MAIN OR PRO REMOVAL ERUPTED TOOTH WITH ELEVATION OF MUCOPERIOSTEAL FLAP Bilateral 11/17/2019 SURGICAL EXTRACTIONS REQUIRING ELEVATION OF MUCOPERIOSTEAL FLAP AND REMOVAL OF BONE OR SECTION OF TOOTH (WRVU 1.09) performed by Keyur Ng MD at [facility] MAIN OR SKIN GRAFT Prior To Admission Medications: Medications Prior to Admission Medication Sig Dispense Refill Last Dose levothyroxine (Synthroid) 100 mcg tablet TAKE ONE TABLET BY MOUTH EVERY DAY 90 tablet 3 08/21/2022 amoxicillin-clavulanate (Augmentin) 500-125 mg Tablet Take 1 tablet by mouth 2 times daily. 60 tablet 5 08/18/2022 fluocinolone and shower cap (Brooks-Smoothe/FS Scalp Oil) 0.01 % Oil Apply topically [...] Allergies Allergen Reactions Tylenol [Acetaminophen] Anaphylaxis Allergenic Uwbbuhr-Wyhb-Jpnye Itching Applesauce Peanut Itching Benzocaine Made pt [...] Sclera non-icteric, PERRL, FARRUKH drain in place. [place] in place and with flap on underside [...] assess with ENT in the morning : Sixto, monitor UOP Endo: #Hypothyroidism - ISS prn [...] PGY3 08/21/22 7:36 AM ENT Team Pager: [phone] * Kelly Laguna MD - 08/21/2022 7:30 [...] MANDIBLE performed by Alfred Vital MD at [facility] PRO DEBRIDEMENT BONE MUSCLE &/FASCIA 20 SQ CM/< Bilateral 11/17/2019 DEBRIDEMENT SKIN, SUBCU, MUSCLE, BONE, HEAD/NECK (WRVU 4.1) performed by Keyur Ng MD at [facility] MAIN OR PRO INJECTION PLATELET PLASMA WITH IMAGE, HARVEST/PREP 11/17/2019 INJECTION(S), PLATELET RICH PLASMA, ANY SITE, INCLUDING IMAGE GUIDANCE, HARVESTING AND PREPARATION WHEN PERFORMED performed by Keyur Ng MD at [facility] MAIN OR PRO REMOVAL ERUPTED TOOTH WITH ELEVATION OF MUCOPERIOSTEAL FLAP N/A 05/06/2014 SURGICAL EXTRACTIONS REQUIRING ELEVATION OF MUCOPERIOSTEAL FLAP AND REMOVAL OF BONE OR SECTION OF TOOTH performed by Alfred Vital MD at [facility] MAIN OR PRO REMOVAL ERUPTED TOOTH WITH ELEVATION OF MUCOPERIOSTEAL FLAP Bilateral 11/17/2019 SURGICAL EXTRACTIONS REQUIRING ELEVATION OF MUCOPERIOSTEAL FLAP AND REMOVAL OF BONE OR SECTION OF TOOTH (WRVU 1.09) performed by Keyur Ng MD at [facility] MAIN OR SKIN GRAFT Family History [...] Allergies Allergen Reactions Tylenol [Acetaminophen] Anaphylaxis Allergenic Xpyicke-Fryr-Xhmrk Itching Applesauce Peanut Itching Benzocaine Made pt [...] Anabell Nelson MD Plastic Surgery Resident Pager# [phone] Patient was seen and examined in the [...] to the planned procedure. Hand Hygiene: The tape edge machine operator did perform hand hygiene prior to line insertion. Catheter type: PICC Lot number: [id number] Procedure Technique: Skin was prepped with chlorhexidine. [...] Post-procedure Dx: same Procedure: Tracheostomy Tube Change ([id number]) Pre-procedure checklist: Correct Patient Correct time Current [...] Toño Pacheco MD ENT PGY-1 Personal Pager #[phone] ENT Team Pager #[phone] * Meredith Root APRN - 08/22/2022 6:28 PM EDT Feeding tube placement per direct laryngoscopy: Used a Mac 3 blade for direct visualization of esophagus and larynx s/p three attempts today for nasal enteral tube placement today in the ICU. With airplane tube builder Dr. Berkowitz at bedside, divided doses of 250 mg Propofol and 30mg Rocuronium given while Dilaudid TOOL PLANNER and continuous Ketamine infusion 0.18 mg/kg/hr in [...] discharge to home with family support and [facility] [place] [facility] for [facility] for tube feed/supplies, and [employer] for SX machine. Needs for Transition of Care: Plan for discharge is: Home w/ Services Outpatient Agency/Support Group Needs: Homecare agency Resp Needs: *SX machine Company: [employer] Status: Hospital Delivery Nutrition Type: Tube Feeds Access: PEG / G Tube Location: [facility] to [facility] Coordination Home Health Services: Registered Nurse Agency Referrals & Follow-up Care: Contact information for follow-up Home Health & H[facility], [place] [address] [place] [address] [facility], [place] [address] [place] [address] Transportation: family or friend will provide-via private [...] none Patient is insured through: Primary Insurance: [employer] [place] Payor: [employer] [place] / Plan: [facility] [place] VHP / Product Type: *No Product type* / Secondary Insurance: N/A Prescription Coverage: Yes This plan was formulated with input from patient, (please identify family/friend involved if applicable) and team. All are in agreement with plan. Hollie JONES , RN Pager #[phone] * Plan of Care - Araceli Velasco [...] Moore MD - 09/04/2022 4:17 PM EDT [facility] Acute Care Surgery Consult Note Consult Reason: PEG placement HPI: Theresa Hollis is a 52 y.o. female with a history of S4X2hE5 SCCa of the left lateral tongues/p hemiglossectomy, left neck dissection 1-5, skin graft, allograft (10/31/06) followed by adjuvantchemo XRT now presenting with ORN of the mandible. She underwent tracheostomy, neck exploration, mandible excision, and fibula free flap reconstruction 08/21 with ENT and PRS. Her NGT was removed on 08/30 and initiated on pur??ed diet as per FSR recommendation. However she was having difficulty swallowing [...] 52 y.o. female with a history of O4L8iQ8 SCCa of the left lateral tongue s/p [...] (Interventions Implemented as Appropriate) Flowsheets (Taken 09/04/2022 0516) Anxieties, Fears or Concerns: none reported Individualized [...] Iqbal MD - 09/03/2022 10:34 AM EDT [facility] Acute Care Surgery Consult Note Consultation Requested by: Roberth Lee MD Consult Reason: PEG placement HPI: Theresa Hollis is a 52 y.o. female with a history of O4U7gY1 SCCa of the left lateral tongues/p hemiglossectomy, left neck dissection 1-5, skin graft, allograft (10/31/06) followed by adjuvantchemo XRT now presenting with ORN of the mandible. She underwent tracheostomy, neck exploration, mandible excision, and fibula free flap reconstruction 08/21 with ENT and PRS. Her NGT was removed on 08/30 and initiated on pur??ed diet as per FSR recommendation. However as of this a.m., she [...] 52 y.o. female with a history of U9J9mE2 SCCa of the left lateral tongue s/p [...] Martin. Zion Iqbal MD 09/03/2022 General Surgery [phone] * Consult Note - Anthony Brizuela - 09/03/2022 7:33 AM EDT Images from the original note were not included. Internal Medicine Initial Consult Note Admit date: Hospital day: Service: Primary Attending Consult Attending 08/21/2022 ENT MD Roberth Powell MD Reason for Consult: Hyponatremia and elevated TSH HPI: Per Dr. Marx's note on 09/02/22: Theresa has a pmh of hypothyroidism (radiation induced), depression, F1A0aI0 SCCa of the left lateraltongue s/p hemiglossectomy, [...] 08/22. On 08/29 she was evaluated by FSR, who recommended a trial of PO intake. [...] her home synthroid has been given between 3646-7556 (initially via NGT, now PO). Today, patient [...] 60 tablet 5 fluocinolone and shower cap (Brooks-Smoothe/FS Scalp Oil) 0.01 % Oil Apply topically [...] Allergies Allergen Reactions Tylenol [Acetaminophen] Anaphylaxis Allergenic Ccikvcr-Jdhv-Dhozi Itching Applesauce Peanut Itching Benzocaine Made pt tongue red and angry. Irritant reaction - allergy testing negative Birch Other (See Comments) Birch pollen: wheezing and throat constriction Past Surgical History Past Surgical History: Procedure Laterality Date GLOSSECTOMY Right partial LYMPHADENECTOMY SND 1-5 MI PREP FACE/ORAL PROST MANDIBULAR N/A 08/21/2022 IMPRESSION AND CUSTOM PREPARATION,MANDIBULAR RESECTION PROSTHESIS (WRVU 22.85) performed by Keyur Ng MD at [facility] MAIN OR PRO ADJ TISS XFER HEAD, FAC, HAND <10SQCM 08/21/2022 ADJ.TISSUE TRANSFER, REARRANGEMENT, 10SQ.CM OR LESS, NECK (WRVU 8.6) performed by Kelly Laguna MDat [facility] MAIN OR PRO BONE BIOPSY,TROCAR/NEEDLE SUPERF Left 05/06/2014 BIOPSY BONE, TROCAR OR NEEDLE, SUPERFICIAL, MANDIBLE performed by Alfred Vital MD at [facility] PRO BONE-SKIN GRAFT, MICROVASCULAR 08/21/2022 @FLAP, FREE OSTEOCUTANEOUS W MICROVASC, FIBULA (WRVU 45.43) performed by Kelly Laguna MD at [facility] MAIN OR PRO CERVICAL LYMPHADECTOMY MODIFIED RADICAL NECK DISSECTION Right 08/21/2022 @CERVICAL LYMPHADENECTOMY (MODIFIED RADICAL NECK DISSECTION)-JANA , ROBOTIC (WRVU 23.95) performed by Roberth Lee MD at [facility] MAIN OR PRO DEBRIDEMENT BONE MUSCLE &/FASCIA 20 SQ CM/< Bilateral 11/17/2019 DEBRIDEMENT SKIN, SUBCU, MUSCLE, BONE, HEAD/NECK (WRVU 4.1) performed by Keyur Ng MD at [facility] MAIN OR PRO EXCISION OF BONE, LOWER JAW Bilateral 08/21/2022 EXCISION OF BONE, MANDIBLE (WRVU 10.03) performed by Roberth Lee MD at [facility] MAIN OR [facility] INJECTION PLATELET PLASMA WITH IMAGE, HARVEST/PREP 11/17/2019 INJECTION(S), PLATELET RICH PLASMA, ANY SITE, INCLUDING IMAGE GUIDANCE, HARVESTING AND PREPARATION WHEN PERFORMED performed by Keyur Ng MD at [facility] MAIN OR [facility] RECONSTR JAW, FULL ENDO IMPLNT N/A 08/21/2022 RECONSTRUCT MANDIBLE OR MAXILLA, ENDOSTEAL IMPLANT, COMPLETE (WRVU 18.77) performed by Keyur Ng MD at [facility] MAIN OR PRO RECONSTR MANDIBLE, BONE PLATE 08/21/2022 RECONSTRUCT MANDIBLE, EXTRAORAL, W/ TRANSOSTEAL BONE PLATE (WRVU 13.62) performed by Kelly Laguna MD at [facility] MAIN OR PRO REMOVAL ERUPTED TOOTH WITH ELEVATION OF MUCOPERIOSTEAL FLAP N/A 05/06/2014 SURGICAL EXTRACTIONS REQUIRING ELEVATION OF MUCOPERIOSTEAL FLAP AND REMOVAL OF BONE OR SECTION OF TOOTH performed by Alfred Vital MD at [facility] OR [facility] REMOVAL ERUPTED TOOTH WITH ELEVATION OF MUCOPERIOSTEAL FLAP Bilateral 11/17/2019 SURGICAL EXTRACTIONS REQUIRING ELEVATION OF MUCOPERIOSTEAL FLAP AND REMOVAL OF BONE OR SECTION OF TOOTH (WRVU 1.09) performed by Keyur Ng MD at [facility] MAIN OR [facility] SPLIT GRFT TRUNK, ARM, LEG <100SQCM N/A 08/21/2022 SPLIT THICK SKIN GRAFT,100 SQ CM OR LESS, LEGS (WRVU 9.9) performed by Kelly Laguna MD at [facility] MAIN OR PRO TRACHEOSTOMY, PLANNED N/A 08/21/2022 TRACHEOSTOMY, PLANNED (WRVU 5.56) performed by Roberth Lee MD at [facility] MAIN OR SKIN GRAFT Family History: Family [...] who have questions please contact the health respiratory care technician that requested your imaging first. Electronically signed by: Parish Gomes MD, [facility] ([phone]), at 08/22/2022 11:53 AM XR Abdomen 1 [...] who have questions please contact the health respiratory care technician that requested your imaging first. Electronically signed by: Nicki Castanon MD, [facility] ([phone]), at 08/22/2022 4:14 PM XR Chest One [...] who have questions please contact the health respiratory care technician that requested your imaging first. Electronically signed by: LILY CELESTE MD, [facility] ([phone]), at 08/22/2022 5:39 PM XR Abdomen 1 [...] who have questions please contact the health respiratory care technician that requested your imaging first. Electronically signed by: LILY CELESTE MD, [facility] ([phone]), at 08/22/2022 6:52 PM XR Chest One View (Exam End: 08/30/2022 8:39 AM) Impression No acute cardiopulmonary disease. Thank you for letting us participate in the care of this patient. If you are a health care provider and have any questions regarding this report, please contact the number below. For patients who have questions please contact the health respiratory care technician that requested your imaging first. Electronically signed by: Dar Villanueva MD, [facility] ([phone]), at 08/30/2022 8:43 AM XR PICC Placement Over 5 Years with Imaging Guidance (IV Team) (Exam End: 09/02/2022 4:21 PM) Impression FINDINGS/IMPRESSION: Intraprocedural frontal radiograph of the mediastinum demonstrates a right-sided PICC line, with the catheter tip projected at the lower SVC, best visualized on image labeled #2. Preliminary report signed by: Nicki Saranya at 09/02/2022 4:41 PM I have personally [...] who have questions please contact the health respiratory care technician that requested your imaging first. Electronically signed by: Silvia Lee MD, [facility] ([phone]), at 09/02/2022 5:04 PM Assessment: Theresa is a 52 yo female with a pmh of hypothyroidism (radiation induced), depression, E5G1lS4 SCCa of the left lateral tongue s/p [...] now. Please reach back out to pager [phone] if another specific questions arises. Anthony Brizuela MD Internal Medicine, PGY3 [place]AL Pager # [phone] Associated attestation - Shruti Mckeon MD - [...] dose adjustments and had talked with her hoof trimmer about taking levothyroxine 50 mcg a couple [...] (PICC) Teaching Sheet Peripherally inserted central catheters (oilg-ka-oixb) (PICC) are used when you need IV [...] midline catheter? PICC lines are used for ocean transportation intermediary treatments. PICC lines may be used for [...] can be set up via the nurse Appliance Adjuster to help you. What are possible complications [...] Vascular Access Device Selection, Insertion, and Management, [employer] 12/21. A Review of the Efficacy, Safety, Use, and Administration of [employer]flo, [employer] 2005 * Consult Note - Loly Blackwood RN - 09/02/2022 2:14 PM EDT Images from the original note were not included. Infiltration/Extravasation Scale Theresa Wyattesteban [id number] N520/N520-A Infiltration appearance: Infiltration harm % for [...] Name of MD contacted Rohit Banks MD. Mc 2:14 PM Name of RN contacted FUENTES Alexander 2:14 PM Name of Pharmacist if consulted 2:14 PM Plastics Provider contacted: no 2:14 PM Name of Plastics MD (if consulted) PHOTO TO BE ADDED HERE (Mandatory photo for infiltrations/ extravasations scoring a stage 2 or greater, but recommended for stage 1. Include measuring tape and identifier in the photo) LICENSED VETERINARY TECHNICIAN CARING FOR THIS PATIENT WILL CONTINUE TO MONITOR AND WILL ASSUME CARE, VASCULAR ACCESS WILL NOT FOLLOW THIS EVENT AT THE SIGNING OF THIS NOTE. * Consult Note - Zion Iqbal MD - 09/02/2022 11:37 AM EDT [facility] Acute Care Surgery Consult Note Consultation Requested by: Roberth Lee MD Consult Reason: PEG placement HPI: Theresa Hollis is a 52 y.o. female with a history of K9Q6nK1 SCCa of the left lateral tongues/p hemiglossectomy, left neck dissection -, skin graft, allograft (10/31/06) followed by adjuvantchemo XRT now presenting with ORN of the mandible. She underwent tracheostomy, neck exploration, mandible excision, and fibula free flap reconstruction 08/21 with ENT and PRS. Her NGT was removed on 08/30 and initiated on pur??ed diet as per FSR recommendation. However as of this a.m., she [...] 52 y.o. female with a history of P7G1rO0 SCCa of the left lateral tongue s/p [...] Martin. Zion Iqbal MD 09/02/2022 General Surgery p.[phone] * Plan of Care - Jada Chávez [...] a pmh of hypothyroidism (radiation induced), depression, H8Q9pG9 SCCa of the left lateraltongue s/p hemiglossectomy, [...] 08/22. On 08/29 she was evaluated by FSR, who recommended a trial of PO intake. [...] her home synthroid has been given between 0801-4882 (initially via NGT, now PO). Today, patient [...] 60 tablet 5 fluocinolone and shower cap (Brooks-Smoothe/FS Scalp Oil) 0.01 % Oil Apply topically [...] Allergies Allergen Reactions Tylenol [Acetaminophen] Anaphylaxis Allergenic Azyuxqx-Ruvi-Bbmwu Itching Applesauce Peanut Itching Benzocaine Made pt tongue red and angry. Irritant reaction - allergy testing negative Birch Other (See Comments) Birch pollen: wheezing and throat constriction Past Surgical History Past Surgical History: Procedure Laterality Date GLOSSECTOMY Right partial LYMPHADENECTOMY SND 1-5 MI PREP FACE/ORAL PROST MANDIBULAR N/A 08/21/2022 IMPRESSION AND CUSTOM PREPARATION,MANDIBULAR RESECTION PROSTHESIS (WRVU 22.85) performed by Keyur Ng MD at [facility] MAIN OR PRO ADJ TISS XFER HEAD, FAC, HAND <10SQCM 08/21/2022 ADJ.TISSUE TRANSFER, REARRANGEMENT, 10SQ.CM OR LESS, NECK (WRVU 8.6) performed by Kelly Laguna MDat [facility] MAIN OR PRO BONE BIOPSY,TROCAR/NEEDLE SUPERF Left 05/06/2014 BIOPSY BONE, TROCAR OR NEEDLE, SUPERFICIAL, MANDIBLE performed by Alfred Vital MD at [facility] PRO BONE-SKIN GRAFT, MICROVASCULAR 08/21/2022 @FLAP, FREE OSTEOCUTANEOUS W MICROVASC, FIBULA (WRVU 45.43) performed by Kelly Laguna MD at [facility] MAIN OR PRO CERVICAL LYMPHADECTOMY MODIFIED RADICAL NECK DISSECTION Right 08/21/2022 @CERVICAL LYMPHADENECTOMY (MODIFIED RADICAL NECK DISSECTION)-JANA , ROBOTIC (WRVU 23.95) performed by Roberth Lee MD at [facility] MAIN OR PRO DEBRIDEMENT BONE MUSCLE &/FASCIA 20 SQ CM/< Bilateral 11/17/2019 DEBRIDEMENT SKIN, SUBCU, MUSCLE, BONE, HEAD/NECK (WRVU 4.1) performed by Keyur Ng MD at [facility] MAIN OR PRO EXCISION OF BONE, LOWER JAW Bilateral 08/21/2022 EXCISION OF BONE, MANDIBLE (WRVU 10.03) performed by Roberth Lee MD at [facility] MAIN OR PRO INJECTION PLATELET PLASMA WITH IMAGE, HARVEST/PREP 11/17/2019 INJECTION(S), PLATELET RICH PLASMA, ANY SITE, INCLUDING IMAGE GUIDANCE, HARVESTING AND PREPARATION WHEN PERFORMED performed by Keyur Ng MD at [facility] MAIN OR PRO RECONSTR JAW, FULL ENDO IMPLNT N/A 08/21/2022 RECONSTRUCT MANDIBLE OR MAXILLA, ENDOSTEAL IMPLANT, COMPLETE (WRVU 18.77) performed by Keyur Ng MD at [facility] MAIN OR PRO RECONSTR MANDIBLE, BONE PLATE 08/21/2022 RECONSTRUCT MANDIBLE, EXTRAORAL, W/ TRANSOSTEAL BONE PLATE (WRVU 13.62) performed by Kelly Laguna MD at [facility] MAIN OR PRO REMOVAL ERUPTED TOOTH WITH ELEVATION OF MUCOPERIOSTEAL FLAP N/A 05/06/2014 SURGICAL EXTRACTIONS REQUIRING ELEVATION OF MUCOPERIOSTEAL FLAP AND REMOVAL OF BONE OR SECTION OF TOOTH performed by Alfred Vital MD at [facility] MAIN OR [facility] REMOVAL ERUPTED TOOTH WITH ELEVATION OF MUCOPERIOSTEAL FLAP Bilateral 11/17/2019 SURGICAL EXTRACTIONS REQUIRING ELEVATION OF MUCOPERIOSTEAL FLAP AND REMOVAL OF BONE OR SECTION OF TOOTH (WRVU 1.09) performed by Keyur Ng MD at [facility] MAIN OR PRO SPLIT GRFT TRUNK, ARM, LEG <100SQCM N/A 08/21/2022 SPLIT THICK SKIN GRAFT,100 SQ CM OR LESS, LEGS (WRVU 9.9) performed by Kelly Laguna MD at [facility] MAIN OR PRO TRACHEOSTOMY, PLANNED N/A 08/21/2022 TRACHEOSTOMY, PLANNED (WRVU 5.56) performed by Roberth Lee MD at [facility] MAIN OR SKIN GRAFT Family History: [...] who have questions please contact the health respiratory care technician that requested your imaging first. Electronically signed by: Parish Gomes MD, [facility] ([phone]), at 08/22/2022 11:53 AM XR Abdomen 1 [...] who have questions please contact the health respiratory care technician that requested your imaging first. Electronically signed by: Nicki Castanon MD, [facility] ([phone]), at 08/22/2022 4:14 PM XR Chest One [...] who have questions please contact the health respiratory care technician that requested your imaging first. Electronically signed by: LILY CELESTE MD, [facility] ([phone]), at 08/22/2022 5:39 PM XR Abdomen 1 [...] who have questions please contact the health respiratory care technician that requested your imaging first. Electronically signed by: LILY CELESTE MD, [facility] ([phone]), at 08/22/2022 6:52 PM XR Chest One View (Exam End: 08/30/2022 8:39 AM) Impression No acute cardiopulmonary disease. Thank you for letting us participate in the care of this patient. If you are a health care provider and have any questions regarding this report, please contact the number below. For patients who have questions please contact the health respiratory care technician that requested your imaging first. Electronically signed by: Dar Villanueva MD, [facility] ([phone]), at 08/30/2022 8:43 AM Assessment: Theresa is a 52 yo female with a pmh of hypothyroidism (radiation induced), depression, W9T2oB2 SCCa of the left lateral tongue s/p [...] discussed with medicine consult attending, Dr. Francois. [facility] medicine will follow labs.Please reach back out to pager [phone] if another specific questions arises. Lenora Santa MD Internal Medicine, PGY3 [place] Pager # [phone] Associated attestation - Jorge Alberto Francois DO - 09/01/2022 10:34 PM EDT [facility] Medicine Attending Attestation: Patient seen and examined [...] of two midnights or is on the [facility] inpatient only procedure list (status C) due to: Acute hyponatremia Jorge Alberto Francois DO Pager [phone] 09/01/2022 10:31 PM * Plan of Care [...] [place] MD - 08/31/2022 4:28 PM EDT [facility] Acute Care Surgery Consult Note Consultation Requested by: Roberth Lee MD Consult Reason: PEG placement HPI: Theresa Hollis is a 52 y.o. female with a history of J9M5vJ3 SCCa of the left lateral tongues/p hemiglossectomy, left neck dissection 1-5, skin graft, allograft (10/31/06) followed by adjuvantchemo XRT now presenting with ORN of the mandible. She underwent tracheostomy, neck exploration, mandible excision, and fibula free flap reconstruction 08/21 with ENT and PRS. Her NGT was removed on 08/30 and initiated on pur??ed diet as per FSR recommendation. However as of this a.m., she [...] Date GLOSSECTOMY Right partial LYMPHADENECTOMY SND 1-5 MI PREP FACE/ORAL PROST MANDIBULAR N/A 08/21/2022 IMPRESSION AND CUSTOM PREPARATION,MANDIBULAR RESECTION PROSTHESIS (WRVU 22.85) performed by Keyur Ng MD at [facility] MAIN OR PRO ADJ TISS XFER HEAD, FAC, HAND <10SQCM 08/21/2022 ADJ.TISSUE TRANSFER, REARRANGEMENT, 10SQ.CM OR LESS, NECK (WRVU 8.6) performed by Kelly Laguna MDat [facility] MAIN OR PRO BONE BIOPSY,TROCAR/NEEDLE SUPERF Left 05/06/2014 BIOPSY BONE, TROCAR OR NEEDLE, SUPERFICIAL, MANDIBLE [facility] BONE-SKIN GRAFT, MICROVASCULAR 08/21/2022 @FLAP, FREE OSTEOCUTANEOUS W MICROVASC, FIBULA (WRVU 45.43) performed by Kelly Lagnua MD at [facility] OR [facility] CERVICAL LYMPHADECTOMY MODIFIED RADICAL NECK DISSECTION Right 08/21/2022 @CERVICAL LYMPHADENECTOMY (MODIFIED RADICAL NECK DISSECTION)-JANA , ROBOTIC (WRVU 23.95) performed by Roberth Lee MD at [facility] OR [facility] DEBRIDEMENT BONE MUSCLE &/FASCIA 20 SQ CM/< Bilateral 11/17/2019 DEBRIDEMENT SKIN, SUBCU, MUSCLE, BONE, HEAD/NECK (WRVU 4.1) performed by Keyur Ng MD at [facility] OR [facility] EXCISION OF BONE, LOWER JAW Bilateral 08/21/2022 EXCISION OF BONE, MANDIBLE (WRVU 10.03) performed by Roberth Lee MD at [facility] OR [facility] INJECTION PLATELET PLASMA WITH IMAGE, HARVEST/PREP 11/17/2019 INJECTION(S), PLATELET RICH PLASMA, ANY SITE, INCLUDING IMAGE GUIDANCE, HARVESTING AND PREPARATION WHEN PERFORMED performed by Keyur Ng MD at [facility] OR [facility] RECONSTR JAW, FULL ENDO IMPLNT N/A 08/21/2022 RECONSTRUCT MANDIBLE OR MAXILLA, ENDOSTEAL IMPLANT, COMPLETE (WRVU 18.77) performed by Keyur Ng MD at [facility] OR [facility] RECONSTR MANDIBLE, BONE PLATE 08/21/2022 RECONSTRUCT MANDIBLE, EXTRAORAL, W/ TRANSOSTEAL BONE PLATE (WRVU 13.62) performed by Kelly Laguna MD at [facility] OR [facility] REMOVAL ERUPTED TOOTH WITH ELEVATION OF MUCOPERIOSTEAL FLAP N/A 05/06/2014 SURGICAL EXTRACTIONS REQUIRING ELEVATION OF MUCOPERIOSTEAL FLAP AND REMOVAL OF BONE OR SECTION OF TOOTH performed by Alfred Vital MD at [facility] OR [facility] REMOVAL ERUPTED TOOTH WITH ELEVATION OF MUCOPERIOSTEAL FLAP Bilateral 11/17/2019 SURGICAL EXTRACTIONS REQUIRING ELEVATION OF MUCOPERIOSTEAL FLAP AND REMOVAL OF BONE OR SECTION OF TOOTH (WRVU 1.09) performed by Keyur Ng MD at [facility] MAIN OR PRO SPLIT GRFT TRUNK, ARM, LEG <100SQCM N/A 08/21/2022 SPLIT THICK SKIN GRAFT,100 SQ CM OR LESS, LEGS (WRVU 9.9) performed by Kelly Laguna MD at [facility] MAIN OR PRO TRACHEOSTOMY, PLANNED N/A 08/21/2022 TRACHEOSTOMY, PLANNED (WRVU 5.56) performed by Roberth Lee MD at [facility] MAIN OR SKIN GRAFT MEDICATIONS: No current facility-administered medications on file prior to encounter. Current Outpatient Medications on File Prior to Encounter Medication Sig Dispense Refill amoxicillin-clavulanate (Augmentin) 500-125 mg Tablet Take 1 tablet by mouth 2 times daily. 60 tablet 5 fluocinolone and shower cap (Brooks-Smoothe/FS Scalp Oil) 0.01 % Oil Apply topically [...] Allergies Allergen Reactions Tylenol [Acetaminophen] Anaphylaxis Allergenic Vgjmvct-Cupr-Lfjmh Itching Applesauce Peanut Itching Benzocaine Made pt [...] 52 y.o. female with a history of L3R4cI1 SCCa of the left lateral tongue s/p [...] [place]. Zion Iqbal MD 08/31/2022 General Surgery p.[phone] Attending Addendum I have reviewed the history [...] Olivia Rodriguez Urgency Level: FYI Callback Number: [phone] The following Message was sent: [] - Callback:[phone]. Pt is still having trouble sleeping, no sleep at all - Olivia Rodriguez The following status was returned from the bistro server: Page for [phone] successfully sent to [phone] [...] Appropriate) * Consult Note - Brittanie Denton LCBolivar - 08/28/2022 2:40 PM EDT BIT (Behavioral Intervention Team) [facility] met briefly with this patient. Patient wrote on her white board that she had just met with Jessica from Spiritual Health/Room Manager and they were able to identify a [...] by patient and/or team. Brittanie Denton MA, [facility] Mental [facility] - BIT (Behavioral Intervention Team) Dept. of Psychiatry - Inpatient Psych. Services Pager: [phone] * Plan of Care - Bridgett Bhatti [...] can talk with to give her support, social service director and sheet metal duct installer consult suggested and pt is open for [...] admitted on 08/21/2022 with a history of A8P6aD0 SCCa of the left lateral tongue s/p [...] Harinder in a single level home in [facility]. Has ~ 15 IRENE without rails. Normallyindependent without device. 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 Ladi Jean, OTR Pager [phone] Occupational Therapy Rehabilitation Department * Plan of Care - Bettye Friedman RN - 08/24/2022 6:48 PM EDT OUTCOME EVALUATION NOTE: OUTCOME SUMMARY: Patient is AOx4 bue 5/5 strength ble 4/5 strength Patient is s/p neck exploration, tracheostomy, mandible excision, and fibula free flap reconstruction, 3 Days Post-Op. Trache size 6 and dht to L nare patent c bridle. PLAN MOVING FORWARD: Snf or rehab INDIVIDUALIZED [...] improved with addition of multi-modal approach including TOOL PLANNER - see MAR for details. NG tube [...] surrogate would be surrogate decision maker per [place] surrogate decision making law. (Only good for 180 days) Any patient receiving care in [place] must abide by [place] law. The hierarchy for surrogate decision making [...] (i) The agent with financial power of living skills advisor or a conservator appointed in accordance with [...] Home Address confirmed as: [place] [facility] [address] Social & Family Supports: All names listed below confirmed with patient as current and correct Extended Emergency Contact Information Primary Emergency Contact: STEPHAN HOLLIS Address: [place] [address] [facility] [place] [employer] Relation: Spouse Current Care [...] Specific Information: denies Health/Prescription Coverage: Primary Insurance: [employer] Payor: [employer] [place] / Plan: [facility] [place] VHP / Product Type: *No Product type* / Secondary Insurance: N/A ; Prescription Coverage: Yes Preferred Pharmacy: [id number] [place], [place] - [address] [place] [id number] Status: Patient is a : No Primary Care Provider confirmed: Tita Méndez, HOSPICE NURSE PRACTITIONER [phone] Patient/Caregiver Goals of Treatment: return home when medically ready for discharge. Potential Needs for Transition of Care: home health care Agency Referrals: I have met with the patient to: discuss discharge planning needs. provide the [facility], Office of Care Management letter from the [facility] [place] pertaining to rehab referrals. provide a letter describing our affiliations within the [facility] and educate about their right to choose where referrals are sent. provide a list of Home Health Agencies / Durable Medical Equipment vendors which serve their preferred geographic area. provided patient with [facility] Star Quality Rating handout. They have requested referrals to: [facility] [address] [place] [address] Note routed to a Wood Tool Maker who will communicate referrals to facilities and [...] assist with transition of care planning. Dominique VALLES, RN CM Phone: [phone] Pager: [phone] * Brief Op Note - Ilda Estrada MD - 08/21/2022 8:00 PM EDT Brief Operative Note Patient Name: Theresa Hollis : [id number] MR#: [id number] Case Date: 08/21/2022 Surgeon: Surgeon(s) and Role: Panel 1: * Roberth Lee MD - Primary * Ilda Estrada MD - Resident - Assisting Panel 2: * eKyur Ng MD - Primary Panel 3: * [...] Operative Note Patient Name: Theresa Hollis : [id number] MR#: [id number] Case Date: 08/21/2022 Surgeon: Surgeon(s) and Role: [...] Laguna MD - 08/21/2022 9:26 AM EDT [facility] Operative Note Patient Name: Theresa Hollis : [id number] MR#: [id number] Case Date: 08/21/2022 Surgeon: Surgeon(s) and Role: [...] the fibula was then secured to the [place] mandible using 2 of the drill holes. Appropriate size screws were placed based on the measurements from the virtual surgical planning. Once this was complete operating microscope was then brought in the vessels were prepared under the operating microscope the 2 vena comitans were repaired to the deep neck veins using a 4 mm and a 3 mm marketing sales representative and then the artery was repaired with [...] Ng MD - 08/21/2022 9:26 AM EDT [facility] [place] Operative Note Patient Name: Theresa Hollis : [id number] MR#: [id number] Case Date: 08/21/2022 Surgeon: Surgeon(s) and Role: [...] container) 1 SPECIMEN TO PATHOLOGY OR #[id number] ORN mandible Mandible resection No 08/21/2022 2:13 [...] TO PATHOLOGY Routine 08/21/2022 10:26 AM EDT IMPRESSION AND CUSTOM PREPARATION,MANDIBULAR RESECTION PROSTHESIS Routine [...] who have questions please contact the health respiratory care technician that requested your imaging first. ? Electronically signed by: Thong Lee MD, [facility] ([phone]), at 09/07/2022 4:26 PM Narrative 09/07/2022 4:26 [...] or interstitial edema. Bones unremarkable. Procedure Note Thong Lee MD - 09/07/2022 EXAMINATION: XR CHEST [...] patients who have questions please contactthe health respiratory care technician that requested your imaging first. Electronically signed by: Thong Lee MD, [facility]([phone]), at 09/07/2022 4:26 PM Roberth Lee MD IMG DX ORDERABLES * EKG 12 Lead (09/07/2022 12:42 PM EDT) Pathologist [facility] Ventricular rate 63 BPM MUSE SYSTEM Atrial Rate 63 BPM MUSE SYSTEM P-R Interval 118 ms MUSE SYSTEM QRS Duration 74 ms MUSE SYSTEM Q-T Interval 400 ms MUSE SYSTEM QTC Calculated (Bezet) 409 ms MUSE SYSTEM Calculated P Hemet 76 degrees MUSE SYSTEM Calculated R Hemet 5 degrees MUSE SYSTEM Calculated T Hemet 57 degrees MUSE SYSTEM INTERPRETATION Normal sinus [...] Automated (09/07/2022 12:30 AM EDT) Pathologist [facility] Neutrophil % 79.3 % [facility] Neutrophil Absolute 5.40 1.70 - 6.10 x10(3)/mc L [facility] Lymph % 11.5 % [facility] Lymphocytes Abs 0.8(L) 0.9 - 3.2 x10(3)/mc L [facility] Monocyte % 5.3 % [facility] Monocyte Abs 0.4 0.3 - 0.9 x10(3)/mc L [facility] Eos % 2.9 % [facility] Eosinophils Abs 0.2 0.0 - 0.4 x10(3)/mc L [facility] Basophil % 0.6 % [facility] Baso Absolute 0.0 0.0 - 0.1 x10(3)/mc L [facility] Immature Gran % 0.40 % [facility] Comment: Immature granulocytes(IG's)percentage and absolute count will include metamyelocytes, myelocytes, and promyelocytes. Blood smears from CBCs yielding IG's will be scanned manually for concordance. If this scan disagrees with the automated IG or if promyelocytes are noted, a manual differential will be performed. Immature Gran Absolute 0.03 0.00 - 0.04 x10(3)/mc L [facility] Blood 09/07/2022 12:3 0 AM EDT 09/07/2022 12:40 AM EDT Narrative Resulting Agency Comment Spec In Lab Toño Pacheco MD HEMATOLOGY ORDERABLE S Performing Organization Address City/State/[facility] Co de Phone Number [facility] [place] [address] * (ABNORMAL) Hemogram (09/07/2022 12:30 AM EDT) White Blood Cell 6.8 4.0 - 9.5 x10(3)/mc L [facility] Red Blood Cell 2.77(L) 4.00 - 5.21 x10(6)/mc L [facility] Hemoglobin 8.9(L) 11.7 - 15.5 g/dL [facility] Hematocrit 27.0(L) 35.7 - 45.8 % [facility] Mean Cell Volume 97.5(H) 82.6 - 94.4 fL [facility] Mean Cell Hemoglobin 32.1(H) 27.1 - 32.0 pg [facility] Mean Cell Hemoglobin Concentration 33.0 31.7 - 35.0 g/dL [facility] Platelet 555(H) 145 - 357 x10(3)/mc L [facility] RDW Standard Deviation 43.2 37.0 - 46.0 fL [facility] RDW coefficient of variation 12.2 11.5 - 14.1 % [facility] Mean Platelet Volume 8.7 7.6 - 12.9 fL [facility] NRBC% auto 0.0 % [facility] NRBC Absolute 0.000 0.000 - 0.000 x10(3)/mc L [facility] Blood 09/07/2022 12:3 0 AM EDT 09/07/2022 12:40 AM EDT Narrative Resulting Agency Comment Spec In Lab Toño Pacheco MD HEMATOLOGY ORDERABLE S [facility] [place] [address] * (ABNORMAL) Basic Metabolic Panel (non-fasting) (09/07/2022 12:30 AM EDT) Glucose 88 65 - 199 mg/dL [facility] Comment:Diabetes: >=200 mg/d L plus symptoms Blood Urea Nitrogen 23(H) 8 - 18 mg/dL [facility] Creatinine 0.55(L) 0.70 - 1.20 mg/dL [facility] Sodium 140 135 - 145 mmol/L [facility] Potassium 4.6 3.5 - 5.0 mmol/L [facility] Comment: Please note: ??Patients with WBC >100,000 may have falsely elevated Potassium levels. ??For accurate Potassium quantification in these patients send serum separator tube (gold top) for subsequent determinations. ??Contact the Clinical Chemistry Laboratory if there are any questions. Chloride 103 98 - 107 mmol/L [facility] Carbon Dioxide 29 22 - 31 mmol/L [facility] Anion Gap 8 5 - 15 mmol/L [facility] Calcium 9.4 8.5 - 10.5 mg/dL [facility] Est Glomerular Filtration Rate 111 >=60 mL/min/1. 73 m?? [facility] Comment: This patient's estimated GFR [...] MD CHEMISTRY ORDERABL ES Performing Organization Address [facility] de Phone Number [facility] [place] [address] * Phosphorus (09/07/2022 12:30 AM EDT) Phosphorus 4.3 2.5 - 4.5 mg/dL [facility] Blood 09/07/2022 12:3 0 AM EDT 09/07/2022 12:40 AM EDT Narrative Resulting Agency Comment Spec In Lab Roberth Lee MD CHEMISTRY ORDERABL ES Performing Organization Address [facility] de Phone Number [facility] [place] [address] * Magnesium (09/07/2022 12:30 AM EDT) Magnesium 0.94 0.69 - 1.07 mmol/L [facility] Blood 09/07/2022 12:3 0 AM EDT 09/07/2022 12:40 AM EDT Narrative Resulting Agency Comment Spec In Lab Roberth Lee MD CHEMISTRY ORDERABL ES Performing Organization Address [facility] de Phone Number [facility] [place] [address] * (ABNORMAL) Differential, Automated (09/06/2022 4:03 AM EDT) Neutrophil % 74.5 % [facility] Neutrophil Absolute 4.54 1.70 - 6.10 x10(3)/mc L [facility] Lymph % 12.8 % [facility] Lymphocytes Abs 0.8(L) 0.9 - 3.2 x10(3)/mc L [facility] Monocyte % 8.2 % [facility] Monocyte Abs 0.5 0.3 - 0.9 x10(3)/mc L [facility] Eos % 3.0 % [facility] Eosinophils Abs 0.2 0.0 - 0.4 x10(3)/ L [facility] Basophil % 0.8 % [facility] Baso Absolute 0.0 0.0 - 0.1 x10(3)/ L [facility] Immature Gran % 0.70 % [facility] Comment: Immature granulocytes(IG's)percentage and absolute count will include metamyelocytes, myelocytes, and promyelocytes. Blood smears from CBCs yielding IG's will be scanned manually for concordance. If this scan disagrees with the automated IG or if promyelocytes are noted, a manual differential will be performed. Immature Gran Absolute 0.04 0.00 - 0.04 x10(3)/ L [facility] Blood 09/06/2022 4:03 AM EDT 09/06/2022 4:13 AM EDT Narrative Resulting Agency Comment Spec In Lab Toño Pacheco MD HEMATOLOGY ORDERABLE S [facility] [place] [address] * (ABNORMAL) Hemogram (09/06/2022 4:03 AM EDT) White Blood Cell 6.1 4.0 - 9.5 x10(3)/ L [facility] Red Blood Cell 2.72(L) 4.00 - 5.21 x10(6)/ L [facility] Hemoglobin 8.8(L) 11.7 - 15.5 g/dL [facility] Hematocrit 26.3(L) 35.7 - 45.8 % [facility] Mean Cell Volume 96.7(H) 82.6 - 94.4 fL [facility] Mean Cell Hemoglobin 32.4(H) 27.1 - 32.0 pg [facility] Mean Cell Hemoglobin Concentration 33.5 31.7 - 35.0 g/dL [facility] Platelet 593(H) 145 - 357 x10(3)/mc L [facility] RDW Standard Deviation 42.2 37.0 - 46.0 fL [facility] RDW coefficient of variation 12.3 11.5 - 14.1 % [facility] Mean Platelet Volume 8.6 7.6 - 12.9 fL [facility] NRBC% auto 0.0 % [facility] NRBC Absolute 0.000 0.000 - 0.000 x10(3)/mc L [facility] Blood 09/06/2022 4:03 AM EDT 09/06/2022 4:13 AM EDT Narrative Resulting Agency Comment Spec In Lab Toño Pacheco MD HEMATOLOGY ORDERABLE S [facility] [place] [address] * (ABNORMAL) Basic Metabolic Panel (non-fasting) (09/06/2022 4:03 AM EDT) Glucose 74 65 - 199 mg/dL [facility] Comment:Diabetes: >=200 mg/d L plus symptoms Blood Urea Nitrogen 20(H) 8 - 18 mg/dL [facility] Creatinine 0.47(L) 0.70 - 1.20 mg/dL [facility] Sodium 139 135 - 145 mmol/L [facility] Potassium 4.2 3.5 - 5.0 mmol/L [facility] Comment: Please note: ??Patients with WBC >100,000 may have falsely elevated Potassium levels. ??For accurate Potassium quantification in these patients send serum separator tube (gold top) for subsequent determinations. ??Contact the Clinical Chemistry Laboratory if there are any questions. Chloride 103 98 - 107 mmol/L [facility] Carbon Dioxide 26 22 - 31 mmol/L [facility] Anion Gap 10 5 - 15 mmol/L [facility] Calcium 9.0 8.5 - 10.5 mg/dL [facility] Est Glomerular Filtration Rate 115 >=60 mL/min/1. 73 m?? [facility] Comment: This patient's estimated GFR [...] MD CHEMISTRY ORDERABL ES Performing Organization Address City/[facility] Co de Phone Number [facility] [place] [address] * Phosphorus (09/06/2022 4:03 AM EDT) Phosphorus 3.8 2.5 - 4.5 mg/dL [facility] Blood 09/06/2022 4:03 AM EDT 09/06/2022 4:13 AM EDT Narrative Resulting Agency Comment Spec In Lab Roberth Lee MD CHEMISTRY ORDERABL ES Performing Organization Address [facility] [place] [address] * Magnesium (09/06/2022 4:03 AM EDT) Magnesium 0.99 0.69 - 1.07 mmol/L [facility] Blood 09/06/2022 4:03 AM EDT 09/06/2022 4:13 AM EDT Narrative Resulting Agency Comment Spec In Lab Roberth Lee MD CHEMISTRY ORDERABL ES Performing Organization Address [facility] Co de Phone Number [facility] [place] [address] * IR G-Tube Placement (09/05/2022 12:12 PM [...] barrier technique was used throughout. ??A 4 Tristanian glide catheter was placed as a nasoenteric [...] with an 8mm balloon catheter. ??A 16 Tristanian balloon retained gastrostomy tube was placed. ??The [...] released in 7-10 days. Resident/Fellow: ??None. Attending: IDr. Oliver performed this procedure. ?? Roberth Lee MD IMG IR ORDERABLES * (ABNORMAL) Differential, Automated (09/05/2022 2:45 AM EDT) Neutrophil % 79.0 % [facility] Neutrophil Absolute 7.18(H) 1.70 - 6.10 x10(3)/ L [facility] Lymph % 10.8 % [facility] Lymphocytes Abs 1.0 0.9 - 3.2 x10(3)/[facility] Monocyte % 7.1 % [facility] Monocyte Abs 0.6 0.3 - 0.9 x10(3)/[facility] Eos % 1.8 % [facility] Eosinophils Abs 0.2 0.0 - 0.4 x10(3)/[facility] Basophil % 0.7 % [facility] Baso Absolute 0.1 0.0 - 0.1 x10(3)/[facility] Immature Gran % 0.60 % [facility] Comment: Immature granulocytes(IG's)percentage and absolute count will include metamyelocytes, myelocytes, and promyelocytes. Blood smears from CBCs yielding IG's will be scanned manually for concordance. If this scan disagrees with the automated IG or if promyelocytes are noted, a manual differential will be performed. Immature Gran Absolute 0.05(H) 0.00 - 0.04 x10(3)/ L [facility] Blood 09/05/2022 2:45 AM EDT 09/05/2022 2:53 AM EDT Narrative Resulting Agency Comment Spec In Lab Toño Pacheco MD HEMATOLOGY ORDERABLE S [facility] [place] [address] * (ABNORMAL) Hemogram (09/05/2022 2:45 AM EDT) White Blood Cell 9.1 4.0 - 9.5 x10(3)/mc L [facility] Red Blood Cell 2.92(L) 4.00 - 5.21 x10(6)/mc L [facility] Hemoglobin 9.7(L) 11.7 - 15.5 g/dL [facility] Hematocrit 28.0(L) 35.7 - 45.8 % [facility] Mean Cell Volume 95.9(H) 82.6 - 94.4 fL [facility] Mean Cell Hemoglobin 33.2(H) 27.1 - 32.0 pg [facility] Mean Cell Hemoglobin Concentration 34.6 31.7 - 35.0 g/dL [facility] Platelet 655(H) 145 - 357 x10(3)/mc L [facility] RDW Standard Deviation 41.6 37.0 - 46.0 fL [facility] RDW coefficient of variation 12.2 11.5 - 14.1 % [facility] Mean Platelet Volume 8.5 7.6 - 12.9 fL [facility] NRBC% auto 0.0 % [facility] NRBC Absolute 0.000 0.000 - 0.000 x10(3)/ L [facility] Blood 09/05/2022 2:45 AM EDT 09/05/2022 2:53 AM EDT Narrative Resulting Agency Comment Spec In Lab Toño Pacheco MD HEMATOLOGY ORDERABLE S [facility] [place] [address] * (ABNORMAL) Basic Metabolic Panel (non-fasting) (09/05/2022 2:45 AM EDT) Glucose 98 65 - 199 mg/dL [facility] Comment:Diabetes: >=200 mg/d L plus symptoms Blood Urea Nitrogen 20(H) 8 - 18 mg/dL [facility] Creatinine 0.48(L) 0.70 - 1.20 mg/dL [facility] Sodium 138 135 - 145 mmol/L [facility] Potassium 4.4 3.5 - 5.0 mmol/L [facility] Comment: Please note: ??Patients with WBC >100,000 may have falsely elevated Potassium levels. ??For accurate Potassium quantification in these patients send serum separator tube (gold top) for subsequent determinations. ??Contact the Clinical Chemistry Laboratory if there are any questions. Chloride 101 98 - 107 mmol/L [facility] Carbon Dioxide 28 22 - 31 mmol/L [facility] Anion Gap 9 5 - 15 mmol/L [facility] Calcium 9.3 8.5 - 10.5 mg/dL [facility] Est Glomerular Filtration Rate 115 >=60 mL/min/1. 73 m?? [facility] Comment: This patient's estimated GFR [...] Lab Roberth Lee MD CHEMISTRY ORDERABL ES [facility] [place] [address] * Phosphorus (09/05/2022 2:45 AM EDT) Phosphorus 3.9 2.5 - 4.5 mg/dL [facility] Blood 09/05/2022 2:45 AM EDT 09/05/2022 2:53 AM EDT Narrative Resulting Agency Comment Spec In Lab Roberth Lee MD CHEMISTRY ORDERABL ES Performing Organization Address City/[facility]/Z[place] [address] * Magnesium (09/05/2022 2:45 AM EDT) Magnesium 1.01 0.69 - 1.07 mmol/L [facility] Blood 09/05/2022 2:45 AM EDT 09/05/2022 2:53 AM EDT Narrative Resulting Agency Comment Spec In Lab Roberth Lee MD CHEMISTRY ORDERABL ES Performing Organization Address [facility] Co de Phone Number [facility] [place] [address] * (ABNORMAL) Differential, Automated (09/04/2022 12:25 AM EDT) Pathologist [facility] Neutrophil % 79.6 % [facility] Neutrophil Absolute 6.60(H) 1.70 - 6.10 x10(3)/mc L [facility] Lymph % 10.3 % [facility] Lymphocytes Abs 0.8(L) 0.9 - 3.2 x10(3)/mc L [facility] Monocyte % 7.0 % [facility] Monocyte Abs 0.6 0.3 - 0.9 x10(3)/mc L [facility] Eos % 1.9 % [facility] Eosinophils Abs 0.2 0.0 - 0.4 x10(3)/mc L [facility] Basophil % 0.5 % [facility] Baso Absolute 0.0 0.0 - 0.1 x10(3)/mc L [facility] Immature Gran % 0.70 % [facility] Comment: Immature granulocytes(IG's)percentage and absolute count will include metamyelocytes, myelocytes, and promyelocytes. Blood smears from CBCs yielding IG's will be scanned manually for concordance. If this scan disagrees with the automated IG or if promyelocytes are noted, a manual differential will be performed. Immature Gran Absolute 0.06(H) 0.00 - 0.04 x10(3)/mc L [facility] Blood 09/04/2022 12:2 5 AM EDT 09/04/2022 12:36 AM EDT Narrative Resulting Agency Comment Spec In Lab Toño Pacheco MD HEMATOLOGY ORDERABLE S Performing Organization Address City/[facility]/ZIP Co de Phone Number [facility] [place] [address] * (ABNORMAL) Hemogram (09/04/2022 12:25 AM EDT) White Blood Cell 8.3 4.0 - 9.5 x10(3)/ L [facility] Red Blood Cell 2.80(L) 4.00 - 5.21 x10(6)/ L [facility] Hemoglobin 9.1(L) 11.7 - 15.5 g/dL [facility] Hematocrit 26.8(L) 35.7 - 45.8 % [facility] Mean Cell Volume 95.7(H) 82.6 - 94.4 fL [facility] Mean Cell Hemoglobin 32.5(H) 27.1 - 32.0 pg [facility] Mean Cell Hemoglobin Concentration 34.0 31.7 - 35.0 g/dL [facility] Platelet 624(H) 145 - 357 x10(3)/mc L [facility] RDW Standard Deviation 40.8 37.0 - 46.0 fL [facility] RDW coefficient of variation 11.9 11.5 - 14.1 % [facility] Mean Platelet Volume 8.7 7.6 - 12.9 fL [facility] NRBC% auto 0.0 % [facility] NRBC Absolute 0.000 0.000 - 0.000 x10(3)/mc L [facility] Blood 09/04/2022 12:2 5 AM EDT 09/04/2022 12:36 AM EDT Narrative Resulting Agency Comment Spec In Lab Toño Pacheco MD HEMATOLOGY ORDERABLE S Performing Organization Address City/[facility]/ZIP Co de Phone Number [facility] [place] [address] * (ABNORMAL) Basic Metabolic Panel (non-fasting) (09/04/2022 12:25 AM EDT) Glucose 98 65 - 199 mg/dL [facility] Comment:Diabetes: >=200 mg/d L plus symptoms Blood Urea Nitrogen 19(H) 8 - 18 mg/dL [facility] Creatinine 0.45(L) 0.70 - 1.20 mg/dL [facility] Sodium 136 135 - 145 mmol/L [facility] Potassium 3.8 3.5 - 5.0 mmol/L [facility] Comment: Please note: ??Patients with WBC >100,000 may have falsely elevated Potassium levels. ??For accurate Potassium quantification in these patients send serum separator tube (gold top) for subsequent determinations. ??Contact the Clinical Chemistry Laboratory if there are any questions. Chloride 100 98 - 107 mmol/L [facility] Carbon Dioxide 27 22 - 31 mmol/L [facility] Anion Gap 9 5 - 15 mmol/L [facility] Calcium 8.8 8.5 - 10.5 mg/dL [facility] Est Glomerular Filtration Rate 116 >=60 mL/min/1. 73 m?? [facility] Comment: This patient's estimated GFR [...] Lab Roberth Lee MD CHEMISTRY ORDERABL ES [facility] [address] * Phosphorus (09/04/2022 12:25 AM EDT) Phosphorus 3.8 2.5 - 4.5 mg/dL [facility] Blood 09/04/2022 12:2 5 AM EDT 09/04/2022 12:36 AM EDT Narrative Resulting Agency Comment Spec In Lab Roberth Lee MD CHEMISTRY ORDERABL ES Performing Organization Address City/[facility] Co de Phone Number [facility] [place] [address] * Magnesium (09/04/2022 12:25 AM EDT) Magnesium 1.00 0.69 - 1.07 mmol/L [facility] Blood 09/04/2022 12:2 5 AM EDT 09/04/2022 12:36 AM EDT Narrative Resulting Agency Comment Spec In Lab Roberth Lee MD CHEMISTRY ORDERABL ES Performing Organization Address [facility] Co de Phone Number [facility] [place] [address] * (ABNORMAL) Differential, Automated (09/03/2022 2:00 AM EDT) Pathologist [facility] Neutrophil % 79.8 % [facility] Neutrophil Absolute 6.58(H) 1.70 - 6.10 x10(3)/mc L [facility] Lymph % 9.1 % [facility] Lymphocytes Abs 0.8(L) 0.9 - 3.2 x10(3)/mc L [facility] Monocyte % 8.3 % [facility] Monocyte Abs 0.7 0.3 - 0.9 x10(3)/mc L [facility] Eos % 1.2 % [facility] Eosinophils Abs 0.1 0.0 - 0.4 x10(3)/mc L [facility] Basophil % 0.6 % [facility] Baso Absolute 0.0 0.0 - 0.1 x10(3)/mc L [facility] Immature Gran % 1.00 % [facility] Comment: Immature granulocytes(IG's)percentage and absolute count will include metamyelocytes, myelocytes, and promyelocytes. Blood smears from CBCs yielding IG's will be scanned manually for concordance. If this scan disagrees with the automated IG or if promyelocytes are noted, a manual differential will be performed. Immature Gran Absolute 0.08(H) 0.00 - 0.04 x10(3)/mc L [facility] Blood 09/03/2022 2:00 AM EDT 09/03/2022 2:09 AM EDT Narrative Resulting Agency Comment Spec In Lab Toño Pacheco MD HEMATOLOGY ORDERABLE S [facility] [place] [address] * (ABNORMAL) Hemogram (09/03/2022 2:00 AM EDT) White Blood Cell 8.2 4.0 - 9.5 x10(3)/mc L [facility] Red Blood Cell 3.07(L) 4.00 - 5.21 x10(6)/mc L [facility] Hemoglobin 9.8(L) 11.7 - 15.5 g/dL [facility] Hematocrit 29.4(L) 35.7 - 45.8 % [facility] Mean Cell Volume 95.8(H) 82.6 - 94.4 fL [facility] Mean Cell Hemoglobin 31.9 27.1 - 32.0 pg [facility] Mean Cell Hemoglobin Concentration 33.3 31.7 - 35.0 g/dL [facility] Platelet 657(H) 145 - 357 x10(3)/mc L [facility] RDW Standard Deviation 40.5 37.0 - 46.0 fL [facility] RDW coefficient of variation 11.9 11.5 - 14.1 % [facility] Mean Platelet Volume 8.5 7.6 - 12.9 fL [facility] NRBC% auto 0.0 % [facility] NRBC Absolute 0.000 0.000 - 0.000 x10(3)/mc L [facility] Blood 09/03/2022 2:00 AM EDT 09/03/2022 2:09 AM EDT Narrative Resulting Agency Comment Spec In Lab Toño Pacheco MD HEMATOLOGY ORDERABLE S Performing Organization Address City/State/[facility] Co de Phone Number [facility] [place] [address] * (ABNORMAL) Basic Metabolic Panel (non-fasting) (09/03/2022 2:00 AM EDT) Glucose 85 65 - 199 mg/dL [facility] Comment:Diabetes: >=200 mg/d L plus symptoms Blood Urea Nitrogen 20(H) 8 - 18 mg/dL [facility] Creatinine 0.45(L) 0.70 - 1.20 mg/dL [facility] Sodium 137 135 - 145 mmol/L [facility] Potassium 4.2 3.5 - 5.0 mmol/L [facility] Comment: Please note: ??Patients with WBC >100,000 may have falsely elevated Potassium levels. ??For accurate Potassium quantification in these patients send serum separator tube (gold top) for subsequent determinations. ??Contact the Clinical Chemistry Laboratory if there are any questions. Chloride 98 98 - 107 mmol/L [facility] Carbon Dioxide 28 22 - 31 mmol/L [facility] Anion Gap 11 5 - 15 mmol/L [facility] Calcium 9.2 8.5 - 10.5 mg/dL [facility] Est Glomerular Filtration Rate 116 >=60 mL/min/1. 73 m?? [facility] Comment: This patient's estimated GFR [...] MD CHEMISTRY ORDERABL ES Performing Organization Address City/[facility] Co de Phone Number [facility] [place] [address] * Phosphorus (09/03/2022 2:00 AM EDT) Phosphorus 3.7 2.5 - 4.5 mg/dL [facility] Blood 09/03/2022 2:00 AM EDT 09/03/2022 2:09 AM EDT Narrative Resulting Agency Comment Spec In Lab Roberth Lee MD CHEMISTRY ORDERABL ES Performing Organization Address [facility] Co de Phone Number [facility] [place] [address] * Magnesium (09/03/2022 2:00 AM EDT) Magnesium 1.05 0.69 - 1.07 mmol/L [facility] Blood 09/03/2022 2:00 AM EDT 09/03/2022 2:09 AM EDT Narrative Resulting Agency Comment Spec In Lab Roberth Lee MD CHEMISTRY ORDERABL ES Performing Organization Address [facility] de Phone Number [facility] [place] [address] * Place PICC Line: Contact Vascular Access Page [phone] Extremity to exclude: No restrictions; Is PICC [...] to the planned procedure. Hand Hygiene: The tape edge machine operator did perform hand hygiene prior to line insertion. Catheter type: PICC Lot number: [id number] Procedure Technique: Skin was prepped with chlorhexidine. [...] who have questions please contact the health respiratory care technician that requested your imaging first. ? Electronically signed by: Silvia Lee MD, [facility] ([phone]), at 09/02/2022 5:04 PM Narrative 09/02/2022 5:04 [...] the resident's interpretationand agree with the findings, iSlvia Lee MD at 09/02/2022 5:04 PM Thank you for letting us participate in the care of this patient. If youare a health care provider and have any questions regarding this report,please contact the number below. For patients who have questions please contactthe health respiratory care technician that requested your imaging first. Roberth Lee MD IMG FLUORO ORDERAB LES * (ABNORMAL) Differential, Automated (09/02/2022 12:28 AM EDT) Neutrophil % 83.7 % [facility] Neutrophil Absolute 7.16(H) 1.70 - 6.10 x10(3)/mc L [facility] Lymph % 7.0 % [facility] Lymphocytes Abs 0.6(L) 0.9 - 3.2 x10(3)/mc L [facility] Monocyte % 6.7 % [facility] Monocyte Abs 0.6 0.3 - 0.9 x10(3)/mc L [facility] Eos % 1.3 % [facility] Eosinophils Abs 0.1 0.0 - 0.4 x10(3)/mc L [facility] Basophil % 0.5 % [facility] Baso Absolute 0.0 0.0 - 0.1 x10(3)/mc L [facility] Immature Gran % 0.80 % [facility] Comment: Immature granulocytes(IG's)percentage and absolute count will include metamyelocytes, myelocytes, and promyelocytes. Blood smears from CBCs yielding IG's will be scanned manually for concordance. If this scan disagrees with the automated IG or if promyelocytes are noted, a manual differential will be performed. Immature Gran Absolute 0.07(H) 0.00 - 0.04 x10(3)/mc L [facility] Blood 09/02/2022 12:2 8 AM EDT 09/02/2022 12:42 AM EDT Narrative Resulting Agency Comment Spec In Lab Toño Pacheco MD HEMATOLOGY ORDERABLE S [facility] [place] [address] * (ABNORMAL) Hemogram (09/02/2022 12:28 AM EDT) White Blood Cell 8.6 4.0 - 9.5 x10(3)/mc L [facility] Red Blood Cell 2.89(L) 4.00 - 5.21 x10(6)/mc L [facility] Hemoglobin 9.4(L) 11.7 - 15.5 g/dL [facility] Hematocrit 27.7(L) 35.7 - 45.8 % [facility] Mean Cell Volume 95.8(H) 82.6 - 94.4 fL [facility] Mean Cell Hemoglobin 32.5(H) 27.1 - 32.0 pg [facility] Mean Cell Hemoglobin Concentration 33.9 31.7 - 35.0 g/dL [facility] Platelet 591(H) 145 - 357 x10(3)/mc L [facility] RDW Standard Deviation 40.4 37.0 - 46.0 fL [facility] RDW coefficient of variation 11.7 11.5 - 14.1 % [facility] Mean Platelet Volume 8.5 7.6 - 12.9 fL [facility] NRBC% auto 0.0 % [facility] NRBC Absolute 0.000 0.000 - 0.000 x10(3)/ L [facility] Blood 09/02/2022 12:2 8 AM EDT 09/02/2022 12:42 AM EDT Narrative Resulting Agency Comment Spec In Lab Toño Pacheco MD HEMATOLOGY ORDERABLE S [facility] [place] [address] * (ABNORMAL) Basic Metabolic Panel (non-fasting) (09/02/2022 12:28 AM EDT) Pathologist [facility] Glucose 112 65 - 199 mg/dL [facility] Comment:Diabetes: >=200 mg/d L plus symptoms Blood Urea Nitrogen 17 8 - 18 mg/dL [facility] Creatinine 0.41(L) 0.70 - 1.20 mg/dL [facility] Sodium 130(L) 135 - 145 mmol/L [facility] Potassium 4.1 3.5 - 5.0 mmol/L [facility] Comment: Please note: ??Patients with WBC >100,000 may have falsely elevated Potassium levels. ??For accurate Potassium quantification in these patients send serum separator tube (gold top) for subsequent determinations. ??Contact the Clinical Chemistry Laboratory if there are any questions. Chloride 96(L) 98 - 107 mmol/L [facility] Carbon Dioxide 25 22 - 31 mmol/L [facility] Anion Gap 9 5 - 15 mmol/L [facility] Calcium 8.7 8.5 - 10.5 mg/dL [facility] Est Glomerular Filtration Rate 119 >=60 mL/min/1. 73 m?? [facility] Comment: This patient's estimated GFR [...] MD CHEMISTRY ORDERABL ES Performing Organization Address City/[facility] Co de Phone Number [facility] [place] [address] * Phosphorus (09/02/2022 12:28 AM EDT) Phosphorus 3.2 2.5 - 4.5 mg/dL [facility] Blood 09/02/2022 12:2 8 AM EDT 09/02/2022 12:42 AM EDT Narrative Resulting Agency Comment Spec In Lab Roberth Lee MD CHEMISTRY ORDERABL ES Performing Organization Address City/[facility]/ZIP Co de Phone Number [facility] [place] [address] * Magnesium (09/02/2022 12:28 AM EDT) Magnesium 1.02 0.69 - 1.07 mmol/L [facility] Blood 09/02/2022 12:2 8 AM EDT 09/02/2022 12:42 AM EDT Narrative Resulting Agency Comment Spec In Lab Roberth Lee MD CHEMISTRY ORDERABL ES Performing Organization Address City/[facility]/ZIP Co de Phone Number [facility] [place] [address] * Lavender Tube HOLD (09/01/2022 9:45 AM EDT) Lavender Hold Sample in lab. [facility] Blood Venous Draw / Unknown 09/01/2022 9:45 AM EDT 09/01/2022 10:17 AM EDT Toño Pacheco MD HEMATOLOGY ORDERABLE S Performing Organization Address [facility] Co de Phone Number [facility] [place] [address] * Phosphorus (09/01/2022 9:45 AM EDT) Phosphorus 2.8 2.5 - 4.5 mg/dL [facility] Blood 09/01/2022 9:45 AM EDT 09/01/2022 10:16 AM EDT Narrative Resulting Agency Comment Spec In Lab Roberth Lee MD CHEMISTRY ORDERABL ES Performing Organization Address [facility] Co de Phone Number [facility] [place] [address] * Magnesium (09/01/2022 9:45 AM EDT) Magnesium 1.00 0.69 - 1.07 mmol/L [facility] Blood 09/01/2022 9:45 AM EDT 09/01/2022 10:16 AM EDT Narrative Resulting Agency Comment Spec In Lab Roberth Lee MD CHEMISTRY ORDERABL ES [facility] [place] [address] * (ABNORMAL) Basic Metabolic Panel (non-fasting) (09/01/2022 9:45 AM EDT) Glucose 95 65 - 199 mg/dL [facility] Comment:Diabetes: >=200 mg/d L plus symptoms Blood Urea Nitrogen 19(H) 8 - 18 mg/dL [facility] Creatinine 0.42(L) 0.70 - 1.20 mg/dL [facility] Sodium 129(L) 135 - 145 mmol/L [facility] Potassium 4.3 3.5 - 5.0 mmol/L [facility] Comment: Please note: ??Patients with WBC >100,000 may have falsely elevated Potassium levels. ??For accurate Potassium quantification in these patients send serum separator tube (gold top) for subsequent determinations. ??Contact the Clinical Chemistry Laboratory if there are any questions. Chloride 92(L) 98 - 107 mmol/L [facility] Carbon Dioxide 25 22 - 31 mmol/L [facility] Anion Gap 12 5 - 15 mmol/L [facility] Calcium 9.5 8.5 - 10.5 mg/dL [facility] Est Glomerular Filtration Rate 118 >=60 mL/min/1. 73 m?? [facility] Comment: This patient's estimated GFR [...] MD CHEMISTRY ORDERABL ES Performing Organization Address [facility] Co de Phone Number [facility] [place] [address] * Electrolytes, urine, random (09/01/2022 9:30 AM EDT) Sodium, Urine 40 mmol/L [facility] Potassium, Urine 66 mmol/L [facility] Chloride, Urine 48 mmol/L [facility] Urine 09/01/2022 9:30 AM EDT 09/01/2022 9:44 AM EDT Narrative Resulting Agency Comment Spec In Lab Roberth Lee MD URINE ORDERABLES Performing Organization Address [facility] Co de Phone Number [facility] [place] [address] * T4, free (09/01/2022 12:42 AM EDT) Free T4 0.93 0.93 - 1.70 ng/dL [facility] Comment: Reference Interval (ng/dL): Females: ??First Trimester: 0.97-1.68 ??Second Trimester: 0.77-1.51 ??Third Trimester: 0.77-1.49 Blood Venous Draw / Unknown 09/01/2022 12:42 AM EDT 09/01/2022 8:47 AM EDT Narrative Resulting Agency Comment Spec In Lab Toño Pacheco MD CHEMISTRY ORDERABLES Performing Organization Address [facility] Co de Phone Number [facility] [place] [address] * (ABNORMAL) TSH [place] (09/01/2022 12:42 AM EDT) Thyroid Stimulating Hormone 18.90(H) 0.27 - 4.20 mcIU/mL [facility] Comment: Reference Interval (mcIU/mL): Females: ??First Trimester: 0.23-3.88 ??Second Trimester: 0.22-3.90 ??Third Trimester: 0.44-4.66 Blood Venous Draw / Unknown 09/01/2022 12:42 AM EDT 09/01/2022 8:47 AM EDT Narrative Resulting Agency Comment Spec In Lab Toño Pacheco MD CHEMISTRY ORDERABLES Performing Organization Address [facility] Co de Phone Number [facility] [place] [address] * (ABNORMAL) TSH (09/01/2022 12:42 AM EDT) Thyroid Stimulating Hormone 18.40(H) 0.27 - 4.20 mcIU/mL [facility] Comment: Reference Interval (mcIU/mL): Females: ??First Trimester: 0.23-3.88 ??Second Trimester: 0.22-3.90 ??Third Trimester: 0.44-4.66 Blood 09/01/2022 12:4 2 AM EDT 09/01/2022 12:52 AM EDT Narrative Resulting Agency Comment Spec In Lab Roberth Lee MD CHEMISTRY ORDERABL ES Performing Organization Address [facility] Co de Phone Number [facility] [place] [address] * Phosphorus (08/31/2022 4:25 PM EDT) Phosphorus 3.5 2.5 - 4.5 mg/dL [facility] Blood 08/31/2022 4:25 PM EDT 08/31/2022 4:42 PM EDT Narrative Resulting Agency Comment Spec In Lab Roberth Lee MD CHEMISTRY ORDERABL ES Performing Organization Address [facility] Co de Phone Number [facility] [place] [address] * Magnesium (08/31/2022 4:25 PM EDT) Magnesium 0.95 0.69 - 1.07 mmol/L [facility] Blood 08/31/2022 4:25 PM EDT 08/31/2022 4:42 PM EDT Narrative Resulting Agency Comment Spec In Lab Roberth Lee MD CHEMISTRY ORDERABL ES [facility] [place] [address] * (ABNORMAL) Basic Metabolic Panel (non-fasting) (08/31/2022 4:25 PM EDT) Glucose 106 65 - 199 mg/dL [facility] Comment:Diabetes: >=200 mg/d L plus symptoms Blood Urea Nitrogen 20(H) 8 - 18 mg/dL [facility] Creatinine 0.41(L) 0.70 - 1.20 mg/dL [facility] Sodium 127(L) 135 - 145 mmol/L [facility] Potassium 4.3 3.5 - 5.0 mmol/L [facility] Comment: Please note: ??Patients with WBC >100,000 may have falsely elevated Potassium levels. ??For accurate Potassium quantification in these patients send serum separator tube (gold top) for subsequent determinations. ??Contact the Clinical Chemistry Laboratory if there are any questions. Chloride 90(L) 98 - 107 mmol/L [facility] Carbon Dioxide 24 22 - 31 mmol/L [facility] Anion Gap 13 5 - 15 mmol/L [facility] Calcium 9.4 8.5 - 10.5 mg/dL [facility] Est Glomerular Filtration Rate 119 >=60 mL/min/1. 73 m?? [facility] Comment: This patient's estimated GFR [...] Lab Roberth Lee MD [place] [address] * (ABNORMAL) Differential, Automated (08/31/2022 11:37 AM EDT) Neutrophil % 85.4 % [facility] Neutrophil Absolute 7.53(H) 1.70 - 6.10 x10(3)/mc L [facility] Lymph % 6.9 % [facility] Lymphocytes Abs 0.6(L) 0.9 - 3.2 x10(3)/mc L [facility] Monocyte % 5.6 % [facility] Monocyte Abs 0.5 0.3 - 0.9 x10(3)/mc L [facility] Eos % 0.9 % [facility] Eosinophils Abs 0.1 0.0 - 0.4 x10(3)/mc L [facility] Basophil % 0.6 % [facility] Baso Absolute 0.0 0.0 - 0.1 x10(3)/mc L [facility] Immature Gran % 0.60 % [facility] Comment: Immature granulocytes(IG's)percentage and absolute count will include metamyelocytes, myelocytes, and promyelocytes. Blood smears from CBCs yielding IG's will be scanned manually for concordance. If this scan disagrees with the automated IG or if promyelocytes are noted, a manual differential will be performed. Immature Gran Absolute 0.05(H) 0.00 - 0.04 x10(3)/mc L [facility] Blood 08/31/2022 11:3 7 AM EDT 08/31/2022 11:54 AM EDT Narrative Resulting Agency Comment Spec In Lab Toño Pacheco MD [place] [address] * (ABNORMAL) Hemogram (08/31/2022 11:37 AM EDT) White Blood Cell 8.8 4.0 - 9.5 x10(3)/mc L [facility] Red Blood Cell 3.04(L) 4.00 - 5.21 x10(6)/mc L [facility] Hemoglobin 9.7(L) 11.7 - 15.5 g/dL [facility] Hematocrit 29.3(L) 35.7 - 45.8 % [facility] Mean Cell Volume 96.4(H) 82.6 - 94.4 fL [facility] Mean Cell Hemoglobin 31.9 27.1 - 32.0 pg [facility] Mean Cell Hemoglobin Concentration 33.1 31.7 - 35.0 g/dL [facility] Platelet 670(H) 145 - 357 x10(3)/mc L [facility] RDW Standard Deviation 41.2 37.0 - 46.0 fL [facility] RDW coefficient of variation 11.7 11.5 - 14.1 % [facility] Mean Platelet Volume 8.8 7.6 - 12.9 fL [facility] NRBC% auto 0.0 % [facility] NRBC Absolute 0.000 0.000 - 0.000 x10(3)/ L [facility] Blood 08/31/2022 11:3 7 AM EDT 08/31/2022 11:54 AM EDT Narrative Resulting Agency Comment Spec In Lab Toño Pacheco MD HEMATOLOGY ORDERABLE S Performing Organization Address City/[facility]/ZIP Co de Phone Number [facility] [place] [address] * Phosphorus (08/31/2022 12:34 AM EDT) Phosphorus 3.7 2.5 - 4.5 mg/dL [facility] Blood 08/31/2022 12:3 4 AM EDT 08/31/2022 12:50 AM EDT Narrative Resulting Agency Comment Spec In Lab Roberth Lee MD CHEMISTRY ORDERABL ES Performing Organization Address City/[facility]/ZIP Co de Phone Number [facility] [place] [address] * (ABNORMAL) Basic Metabolic Panel (non-fasting) (08/31/2022 12:34 AM EDT) Glucose 112 65 - 199 mg/dL [facility] Comment:Diabetes: >=200 mg/d L plus symptoms Blood Urea Nitrogen 18 8 - 18 mg/dL [facility] Creatinine 0.39(L) 0.70 - 1.20 mg/dL [facility] Sodium 128(L) 135 - 145 mmol/L [facility] Potassium 4.5 3.5 - 5.0 mmol/L [facility] Comment: Please note: ??Patients with WBC >100,000 may have falsely elevated Potassium levels. ??For accurate Potassium quantification in these patients send serum separator tube (gold top) for subsequent determinations. ??Contact the Clinical Chemistry Laboratory if there are any questions. Chloride 91(L) 98 - 107 mmol/L [facility] Carbon Dioxide 26 22 - 31 mmol/L [facility] Anion Gap 11 5 - 15 mmol/L [facility] Calcium 9.4 8.5 - 10.5 mg/dL [facility] Est Glomerular Filtration Rate 120 >=60 mL/min/1. 73 m?? [facility] Comment: This patient's estimated GFR [...] Lab Roberth Lee MD CHEMISTRY ORDERABL ES [facility] [place] [address] * Magnesium (08/31/2022 12:34 AM EDT) Magnesium 0.96 0.69 - 1.07 mmol/L [facility] Blood 08/31/2022 12:3 4 AM EDT 08/31/2022 12:50 AM EDT Narrative Resulting Agency Comment Spec In Lab Roberth Lee MD CHEMISTRY ORDERABL ES [facility] [place] [address] * XR Chest One View (08/30/2022 8:39 [...] who have questions please contact the health respiratory care technician that requested your imaging first. ? Electronically signed by: Dar Villanueva MD, [facility] ([phone]), at 08/30/2022 8:43 AM Narrative 08/30/2022 8:43 [...] patients who have questions please contactthe health respiratory care technician that requested your imaging first. Electronically signed by: Dar Villanueva MD, [facility]([phone]), at 08/30/2022 8:43 AM Roberth Lee MD IMG DX ORDERABLES * EKG 12 Lead (08/30/2022 8:32 AM EDT) Ventricular rate 82 BPM MUSE SYSTEM Atrial Rate 82 BPM MUSE SYSTEM P-R Interval 120 ms MUSE SYSTEM QRS Duration 76 ms MUSE SYSTEM Q-T Interval 374 ms MUSE SYSTEM QTC Calculated (Bezet) 436 ms MUSE SYSTEM Calculated P Hemet 77 degrees MUSE SYSTEM Calculated R Hemet 68 degrees MUSE SYSTEM Calculated T Hemet 60 degrees MUSE SYSTEM INTERPRETATION Normal sinus [...] (ABNORMAL) Differential, Automated (08/26/2022 5:39 AM EDT) Neutrophil % 77.9 % [facility] Neutrophil Absolute 4.65 1.70 - 6.10 x10(3)/mc L [facility] Lymph % 8.5 % [facility] Lymphocytes Abs 0.5(L) 0.9 - 3.2 x10(3)/mc L [facility] Monocyte % 7.9 % [facility] Monocyte Abs 0.5 0.3 - 0.9 x10(3)/ L [facility] Eos % 4.9 % [facility] Eosinophils Abs 0.3 0.0 - 0.4 x10(3)/ L [facility] Basophil % 0.3 % [facility] Baso Absolute 0.0 0.0 - 0.1 x10(3)/ L [facility] Immature Gran % 0.50 % [facility] Comment: Immature granulocytes(IG's)percentage and absolute count will include metamyelocytes, myelocytes, and promyelocytes. Blood smears from CBCs yielding IG's will be scanned manually for concordance. If this scan disagrees with the automated IG or if promyelocytes are noted, a manual differential will be performed. Immature Gran Absolute 0.03 0.00 - 0.04 x10(3)/ L [facility] Blood 08/26/2022 5:39 AM EDT 08/26/2022 5:51 AM EDT Narrative Resulting Agency Comment Spec In Lab Meredith Root APRN HEMATOLOGY ORDER JUDI [facility] [place] [address] * (ABNORMAL) Hemogram (08/26/2022 5:39 AM EDT) White Blood Cell 6.0 4.0 - 9.5 x10(3)/ L [facility] Red Blood Cell 2.56(L) 4.00 - 5.21 x10(6)/mc L [facility] Hemoglobin 8.4(L) 11.7 - 15.5 g/dL [facility] Hematocrit 24.4(L) 35.7 - 45.8 % [facility] Mean Cell Volume 95.3(H) 82.6 - 94.4 fL [facility] Mean Cell Hemoglobin 32.8(H) 27.1 - 32.0 pg [facility] Mean Cell Hemoglobin Concentration 34.4 31.7 - 35.0 g/dL [facility] Platelet 257 145 - 357 x10(3)/mc L [facility] RDW Standard Deviation 41.2 37.0 - 46.0 fL [facility] RDW coefficient of variation 11.9 11.5 - 14.1 % [facility] Mean Platelet Volume 9.2 7.6 - 12.9 fL [facility] NRBC% auto 0.0 % [facility] NRBC Absolute 0.000 0.000 - 0.000 x10(3)/mc L [facility] Blood 08/26/2022 5:39 AM EDT 08/26/2022 5:51 AM EDT Narrative Resulting Agency Comment Spec In Lab Meredith Root HOSPICE NURSE PRACTITIONER HEMATOLOGY ORDER JUDI Performing Organization Address [facility] Co de Phone Number [facility] [place] [address] * Phosphorus (08/26/2022 5:39 AM EDT) Phosphorus 2.6 2.5 - 4.5 mg/dL [facility] Blood 08/26/2022 5:39 AM EDT 08/26/2022 5:51 AM EDT Narrative Resulting Agency Comment Spec In Lab Meredith Root HOSPICE NURSE PRACTITIONER CHEMISTRY ORDERA BLES Performing Organization Address City/[facility]/ZIP Co de Phone Number [facility] [place] [address] * (ABNORMAL) Basic Metabolic Panel (non-fasting) (08/26/2022 5:39 AM EDT) Glucose 100 65 - 199 mg/dL [facility] Comment:Diabetes: >=200 mg/d L plus symptoms Blood Urea Nitrogen 16 8 - 18 mg/dL [facility] Comment:result rechecked-[facility] [place] Creatinine 0.51(L) 0.70 - 1.20 mg/dL [facility] Sodium 137 135 - 145 mmol/L [facility] Potassium 3.8 3.5 - 5.0 mmol/L [facility] Comment: Please note: ??Patients with WBC >100,000 may have falsely elevated Potassium levels. ??For accurate Potassium quantification in these patients send serum separator tube (gold top) for subsequent determinations. ??Contact the Clinical Chemistry Laboratory if there are any questions. Chloride 102 98 - 107 mmol/L [facility] Carbon Dioxide 25 22 - 31 mmol/L [facility] Anion Gap 10 5 - 15 mmol/L [facility] Calcium 8.5 8.5 - 10.5 mg/dL [facility] Est Glomerular Filtration Rate 113 >=60 mL/min/1. 73 m?? [facility] Comment: This patient's estimated GFR [...] Agency Comment Spec In Lab Meredith Root HOSPICE NURSE PRACTITIONER CHEMISTRY ORDERA BLES [facility] [place] [address] * Magnesium (08/26/2022 5:39 AM EDT) Magnesium 0.87 0.69 - 1.07 mmol/L [facility] Blood 08/26/2022 5:39 AM EDT 08/26/2022 5:51 AM EDT Narrative Resulting Agency Comment Spec In Lab Meredithfabiola Root HOSPICE NURSE PRACTITIONER [place] [address] * (ABNORMAL) Differential, Automated (08/25/2022 9:07 AM EDT) Neutrophil % 85.2 % [facility] Neutrophil Absolute 5.23 1.70 - 6.10 x10(3)/mc L [facility] Lymph % 5.5 % [facility] Lymphocytes Abs 0.3(L) 0.9 - 3.2 x10(3)/mc L [facility] Monocyte % 5.7 % [facility] Monocyte Abs 0.4 0.3 - 0.9 x10(3)/mc L [facility] Eos % 2.8 % [facility] Eosinophils Abs 0.2 0.0 - 0.4 x10(3)/mc L [facility] Basophil % 0.3 % [facility] Baso Absolute 0.0 0.0 - 0.1 x10(3)/mc L [facility] Immature Gran % 0.50 % [facility] Comment: Immature granulocytes(IG's)percentage and absolute count will include metamyelocytes, myelocytes, and promyelocytes. Blood smears from CBCs yielding IG's will be scanned manually for concordance. If this scan disagrees with the automated IG or if promyelocytes are noted, a manual differential will be performed. Immature Gran Absolute 0.03 0.00 - 0.04 x10(3)/mc L [facility] Blood 08/25/2022 9:07 AM EDT 08/25/2022 9:26 AM EDT Narrative Resulting Agency Comment Spec In Lab Meredith Root HOSPICE NURSE PRACTITIONER HEMATOLOGY ORDER JUDI Performing Organization Address City/[facility]/[place] [address] * (ABNORMAL) Hemogram (08/25/2022 9:07 AM EDT) White Blood Cell 6.1 4.0 - 9.5 x10(3)/mc L [facility] Red Blood Cell 2.65(L) 4.00 - 5.21 x10(6)/mc L [facility] Hemoglobin 8.7(L) 11.7 - 15.5 g/dL [facility] Hematocrit 25.0(L) 35.7 - 45.8 % [facility] Mean Cell Volume 94.3 82.6 - 94.4 fL [facility] Mean Cell Hemoglobin 32.8(H) 27.1 - 32.0 pg [facility] Mean Cell Hemoglobin Concentration 34.8 31.7 - 35.0 g/dL [facility] Platelet 209 145 - 357 x10(3)/mc L [facility] RDW Standard Deviation 40.8 37.0 - 46.0 fL [facility] RDW coefficient of variation 11.8 11.5 - 14.1 % [facility] Mean Platelet Volume 9.6 7.6 - 12.9 fL [facility] NRBC% auto 0.0 % [facility] NRBC Absolute 0.000 0.000 - 0.000 x10(3)/mc L [facility] Blood 08/25/2022 9:07 AM EDT 08/25/2022 9:26 AM EDT Narrative Resulting Agency Comment Spec In Lab Meredith E Caille HOSPICE NURSE PRACTITIONER HEMATOLOGY ORDER JUDI Performing Organization Address City/[facility] Co de Phone Number [facility] [place] [address] * Phosphorus (08/25/2022 9:07 AM EDT) Phosphorus 2.8 2.5 - 4.5 mg/dL [facility] Blood 08/25/2022 9:07 AM EDT 08/25/2022 9:26 AM EDT Narrative Resulting Agency Comment Spec In Lab Meredith E Caille HOSPICE NURSE PRACTITIONER CHEMISTRY ORDERA BLES Performing Organization Address City/[facility]/ZIP Co de Phone Number [facility] [place] [address] * (ABNORMAL) Basic Metabolic Panel (non-fasting) (08/25/2022 9:07 AM EDT) Glucose 85 65 - 199 mg/dL [facility] Comment:Diabetes: >=200 mg/d L plus symptoms Blood Urea Nitrogen 9 8 - 18 mg/dL [facility] Creatinine 0.50(L) 0.70 - 1.20 mg/dL [facility] Sodium 136 135 - 145 mmol/L [facility] Potassium 3.4(L) 3.5 - 5.0 mmol/L [facility] Comment: Please note: ??Patients with WBC >100,000 may have falsely elevated Potassium levels. ??For accurate Potassium quantification in these patients send serum separator tube (gold top) for subsequent determinations. ??Contact the Clinical Chemistry Laboratory if there are any questions. Chloride 100 98 - 107 mmol/L [facility] Carbon Dioxide 23 22 - 31 mmol/L [facility] Anion Gap 13 5 - 15 mmol/L [facility] Calcium 8.4(L) 8.5 - 10.5 mg/dL [facility] Est Glomerular Filtration Rate 113 >=60 mL/min/1. 73 m?? [facility] Comment: This patient's estimated GFR [...] Agency Comment Spec In Lab Meredith Root HOSPICE NURSE PRACTITIONER CHEMISTRY ORDERA ZULMA [facility] [place] [address] * Magnesium (08/25/2022 9:07 AM EDT) Magnesium 0.82 0.69 - 1.07 mmol/L [facility] Blood 08/25/2022 9:07 AM EDT 08/25/2022 9:26 AM EDT Narrative Resulting Agency Comment Spec In Lab Meredith E Calvine HOSPICE NURSE PRACTITIONER CHEMISTRY ORDERA BLES Performing Organization Address City/[facility]/[place] [address] * (ABNORMAL) Differential, Automated (08/24/2022 1:00 AM EDT) Neutrophil % 85.7 % [facility] Neutrophil Absolute 4.48 1.70 - 6.10 x10(3)/mc L [facility] Lymph % 7.6 % [facility] Lymphocytes Abs 0.4(L) 0.9 - 3.2 x10(3)/mc L [facility] Monocyte % 5.0 % [facility] Monocyte Abs 0.3 0.3 - 0.9 x10(3)/mc L [facility] Eos % 1.1 % [facility] Eosinophils Abs 0.1 0.0 - 0.4 x10(3)/mc L [facility] Basophil % 0.2 % [facility] Baso Absolute 0.0 0.0 - 0.1 x10(3)/mc L [facility] Immature Gran % 0.40 % [facility] Comment: Immature granulocytes(IG's)percentage and absolute count will include metamyelocytes, myelocytes, and promyelocytes. Blood smears from CBCs yielding IG's will be scanned manually for concordance. If this scan disagrees with the automated IG or if promyelocytes are noted, a manual differential will be performed. Immature Gran Absolute 0.02 0.00 - 0.04 x10(3)/mc L [facility] Blood 08/24/2022 1:00 AM EDT 08/24/2022 1:40 AM EDT Narrative Resulting Agency Comment Spec In Lab Meredith Root HOSPICE NURSE PRACTITIONER HEMATOLOGY ORDER JUDI Performing Organization Address City/[facility]/ZIP Co de Phone Number [facility] [place] [address] * (ABNORMAL) Hemogram (08/24/2022 1:00 AM EDT) White Blood Cell 5.2 4.0 - 9.5 x10(3)/mc L [facility] Red Blood Cell 2.74(L) 4.00 - 5.21 x10(6)/mc L [facility] Hemoglobin 8.9(L) 11.7 - 15.5 g/dL [facility] Hematocrit 25.5(L) 35.7 - 45.8 % [facility] Mean Cell Volume 93.1 82.6 - 94.4 fL [facility] Mean Cell Hemoglobin 32.5(H) 27.1 - 32.0 pg [facility] Mean Cell Hemoglobin Concentration 34.9 31.7 - 35.0 g/dL [facility] Platelet 182 145 - 357 x10(3)/mc L [facility] RDW Standard Deviation 39.6 37.0 - 46.0 fL [facility] RDW coefficient of variation 11.7 11.5 - 14.1 % [facility] Mean Platelet Volume 9.3 7.6 - 12.9 fL [facility] NRBC% auto 0.0 % [facility] NRBC Absolute 0.000 0.000 - 0.000 x10(3)/ L [facility] Blood 08/24/2022 1:00 AM EDT 08/24/2022 1:40 AM EDT Narrative Resulting Agency Comment Spec In Lab Meredith Root HOSPICE NURSE PRACTITIONER HEMATOLOGY ORDER JUDI [facility] [place] [address] * Phosphorus (08/24/2022 1:00 AM EDT) Phosphorus 2.5 2.5 - 4.5 mg/dL [facility] Blood 08/24/2022 1:00 AM EDT 08/24/2022 1:40 AM EDT Narrative Resulting Agency Comment Spec In Lab Meredith Root HOSPICE NURSE PRACTITIONER CHEMISTRY ORDERA BLES [facility] [place] [address] * (ABNORMAL) Basic Metabolic Panel (non-fasting) (08/24/2022 1:00 AM EDT) Glucose 103 65 - 199 mg/dL [facility] Comment:Diabetes: >=200 mg/d L plus symptoms Blood Urea Nitrogen 10 8 - 18 mg/dL [facility] Creatinine 0.56(L) 0.70 - 1.20 mg/dL [facility] Sodium 132(L) 135 - 145 mmol/L [facility] Potassium 3.3(L) 3.5 - 5.0 mmol/L [facility] Comment: Please note: ??Patients with WBC >100,000 may have falsely elevated Potassium levels. ??For accurate Potassium quantification in these patients send serum separator tube (gold top) for subsequent determinations. ??Contact the Clinical Chemistry Laboratory if there are any questions. Chloride 97(L) 98 - 107 mmol/L [facility] Carbon Dioxide 24 22 - 31 mmol/L [facility] Anion Gap 11 5 - 15 mmol/L [facility] Calcium 8.2(L) 8.5 - 10.5 mg/dL [facility] Est Glomerular Filtration Rate 110 >=60 mL/min/1. 73 m?? [facility] Comment: This patient's estimated GFR [...] Agency Comment Spec In Lab Meredith Root HOSPICE NURSE PRACTITIONER CHEMISTRY ORDERA BLES Performing Organization Address City/[facility]/ZIP Co de Phone Number [facility] [place] [address] * Magnesium (08/24/2022 1:00 AM EDT) Magnesium 0.80 0.69 - 1.07 mmol/L [facility] Blood 08/24/2022 1:00 AM EDT 08/24/2022 1:40 AM EDT Narrative Resulting Agency Comment Spec In Lab Meredith Root APRN CHEMISTRY ORDERA BLES Performing Organization Address [facility] Co de Phone Number [facility] [place] [address] * (ABNORMAL) Basic Metabolic Panel (non-fasting) (08/23/2022 1:30 PM EDT) Glucose 101 65 - 199 mg/dL [facility] Comment:Diabetes: >=200 mg/d L plus symptoms Blood Urea Nitrogen 8 8 - 18 mg/dL [facility] Creatinine 0.57(L) 0.70 - 1.20 mg/dL [facility] Sodium 130(L) 135 - 145 mmol/L [facility] Potassium 3.6 3.5 - 5.0 mmol/L [facility] Comment: Please note: ??Patients with WBC >100,000 may have falsely elevated Potassium levels. ??For accurate Potassium quantification in these patients send serum separator tube (gold top) for subsequent determinations. ??Contact the Clinical Chemistry Laboratory if there are any questions. Chloride 95(L) 98 - 107 mmol/L [facility] Carbon Dioxide 23 22 - 31 mmol/L [facility] Anion Gap 12 5 - 15 mmol/L [facility] Calcium 8.4(L) 8.5 - 10.5 mg/dL [facility] Est Glomerular Filtration Rate 110 >=60 mL/min/1. 73 m?? [facility] Comment: This patient's estimated GFR [...] Resulting Agency Comment Spec In Lab Meredith Jennifer Dk HOSPICE NURSE PRACTITIONER CHEMISTRY ORDERA BLES [facility] [place] [address] * (ABNORMAL) Differential, Automated (08/23/2022 12:52 AM EDT) Neutrophil % 88.0 % [facility] Neutrophil Absolute 6.43(H) 1.70 - 6.10 x10(3)/mc L [facility] Lymph % 6.4 % [facility] Lymphocytes Abs 0.5(L) 0.9 - 3.2 x10(3)/mc L [facility] Monocyte % 4.9 % [facility] Monocyte Abs 0.4 0.3 - 0.9 x10(3)/mc L [facility] Eos % 0.1 % [facility] Eosinophils Abs 0.0 0.0 - 0.4 x10(3)/mc L [facility] Basophil % 0.3 % [facility] Baso Absolute 0.0 0.0 - 0.1 x10(3)/mc L [facility] Immature Gran % 0.30 % [facility] Comment: Immature granulocytes(IG's)percentage and absolute count will include metamyelocytes, myelocytes, and promyelocytes. Blood smears from CBCs yielding IG's will be scanned manually for concordance. If this scan disagrees with the automated IG or if promyelocytes are noted, a manual differential will be performed. Immature Gran Absolute 0.02 0.00 - 0.04 x10(3)/mc L [facility] Blood 08/23/2022 12:5 2 AM EDT 08/23/2022 1:00 AM EDT Narrative Resulting Agency Comment Spec In Lab Meredith Root APRN HEMATOLOGY ORDER JUDI [facility] [place] [address] * (ABNORMAL) Hemogram (08/23/2022 12:52 AM EDT) White Blood Cell 7.3 4.0 - 9.5 x10(3)/mc L [facility] Red Blood Cell 3.12(L) 4.00 - 5.21 x10(6)/mc L [facility] Hemoglobin 10.2(L) 11.7 - 15.5 g/dL [facility] Hematocrit 29.6(L) 35.7 - 45.8 % [facility] Mean Cell Volume 94.9(H) 82.6 - 94.4 fL [facility] Mean Cell Hemoglobin 32.7(H) 27.1 - 32.0 pg [facility] Mean Cell Hemoglobin Concentration 34.5 31.7 - 35.0 g/dL [facility] Platelet 216 145 - 357 x10(3)/mc L [facility] RDW Standard Deviation 41.1 37.0 - 46.0 fL [facility] RDW coefficient of variation 11.9 11.5 - 14.1 % [facility] Mean Platelet Volume 9.0 7.6 - 12.9 fL [facility] NRBC% auto 0.0 % [facility] NRBC Absolute 0.000 0.000 - 0.000 x10(3)/mc L [facility] Blood 08/23/2022 12:5 2 AM EDT 08/23/2022 1:00 AM EDT Narrative Resulting Agency Comment Spec In Lab Meredith Root APRN HEMATOLOGY ORDER JUDI Performing Organization Address City/[facility]/ZIP Co de Phone Number [facility] [place] [address] * Phosphorus (08/23/2022 12:52 AM EDT) Phosphorus 3.2 2.5 - 4.5 mg/dL [facility] Blood 08/23/2022 12:5 2 AM EDT 08/23/2022 1:00 AM EDT Narrative Resulting Agency Comment Spec In Lab Meredith Root HOSPICE NURSE PRACTITIONER CHEMISTRY ORDERA BLES [facility] [place] [address] * (ABNORMAL) Basic Metabolic Panel (non-fasting) (08/23/2022 12:52 AM EDT) Glucose 94 65 - 199 mg/dL [facility] Comment:Diabetes: >=200 mg/d L plus symptoms Blood Urea Nitrogen 7(L) 8 - 18 mg/dL [facility] Creatinine 0.65(L) 0.70 - 1.20 mg/dL [facility] Sodium 131(L) 135 - 145 mmol/L [facility] Potassium 3.7 3.5 - 5.0 mmol/L [facility] Comment: Please note: ??Patients with WBC >100,000 may have falsely elevated Potassium levels. ??For accurate Potassium quantification in these patients send serum separator tube (gold top) for subsequent determinations. ??Contact the Clinical Chemistry Laboratory if there are any questions. Chloride 96(L) 98 - 107 mmol/L [facility] Carbon Dioxide 25 22 - 31 mmol/L [facility] Anion Gap 10 5 - 15 mmol/L [facility] Calcium 8.4(L) 8.5 - 10.5 mg/dL [facility] Est Glomerular Filtration Rate 107 >=60 mL/min/1. 73 m?? [facility] Comment: This patient's estimated GFR [...] Resulting Agency Comment Spec In Lab Meredith Simpsone HOSPICE NURSE PRACTITIONER CHEMISTRY ORDERA BLES Performing Organization Address City/[facility]/ZIP Co de Phone Number [facility] [place] [address] * Magnesium (08/23/2022 12:52 AM EDT) Magnesium 0.88 0.69 - 1.07 mmol/L [facility] Blood 08/23/2022 12:5 2 AM EDT 08/23/2022 1:00 AM EDT Narrative Resulting Agency Comment Spec In Lab Meredith Root HOSPICE NURSE PRACTITIONER CHEMISTRY ORDERA BLES Performing Organization Address [facility] Co de Phone Number [facility] [place] [address] * XR Abdomen 1 view (Generic) (08/22/2022 [...] who have questions please contact the health respiratory care technician that requested your imaging first. ? Narrative [...] patients who have questions please contactthe health respiratory care technician that requested your imaging first. Electronically signed by: LILY CELESTE MD, [facility]([phone]), at 08/22/2022 6:52 PM Meredith Root HOSPICE NURSE PRACTITIONER IMG DX ORDERABLE S * XR Chest [...] who have questions please contact the health respiratory care technician that requested your imaging first. ? Electronically signed by: LILY CELESTE MD, [facility] ([phone]), at 08/22/2022 5:39 PM Narrative 08/22/2022 5:39 [...] patients who have questions please contactthe health respiratory care technician that requested your imaging first. Electronically signed by: LILY CELESTE MD, [facility]([phone]), at 08/22/2022 5:39 PM Meredith Root APRN IMG DX ORDERABLE S * XR Abdomen [...] who have questions please contact the health respiratory care technician that requested your imaging first. ? Electronically signed by: Nicki Castanon MD, [facility] ([phone]), at 08/22/2022 4:14 PM Narrative 08/22/2022 4:14 PM EDT EXAMINATION: XR ABDOMEN 1 VIEW (GENERIC) CLINICAL HISTORY: s/p NGT placement (as entered by ordering provider in the order requisition) TECHNIQUE: Portable supine AP view of the upper abdomen. The right lateral margin of the abdominal cavity and the lower abdomen and pelvis are excluded from the imaged [id number]. COMPARISON: Abdominal radiograph 08/22/2022. FINDINGS: This enteric [...] abdomen and pelvis are excluded from theimaged [id number]. COMPARISON: Abdominal radiograph 08/22/2022. FINDINGS: This enteric tube with its tip and side-port projecting over theexpected location of the right mainstem bronchus. Lung bases are clear. Multiple prominent loops of gas-filled bowel arepartially visualized in the left upper abdomen. IMPRESSION 1. Enteric tube tip and side-port project over the expected location ofthe right mainstem bronchus. Rosalina Castanon MD discussed the results (Impression #1) [...] patients who have questions please contactthe health respiratory care technician that requested your imaging first. Electronically signed by: Nicki Castanon MD, [facility]([phone]), at 08/22/2022 4:14 PM Meredith Root APRN IMG DX ORDERABLE S * (ABNORMAL) Vitamin B12 (08/22/2022 12:15 PM EDT) Vitamin B12 213(L) 232 - 1,245 pg/mL [facility] Blood 08/22/2022 12:1 5 PM EDT 08/22/2022 12:35 PM EDT Narrative Resulting Agency Comment Spec In Lab Meredith Root APRN CHEMISTRY ORDERA BLES [facility] [place] [address] * XR Abdomen 1 view (Generic) (08/22/2022 [...] who have questions please contact the health respiratory care technician that requested your imaging first. ? Electronically signed by: Parish Gomes MD, [facility] ([phone]), at 08/22/2022 12:12 PM --------ORIGINAL REPORT -------- [...] who have questions please contact the health respiratory care technician that requested your imaging first. ? Electronically signed by: Parish Gomes MD, [facility] ([phone]), at 08/22/2022 11:53 AM Impressions 08/22/2022 11:53 AM EDT Feeding tube is present with the tip in the right lower chest. Thank you for letting us participate in the care of this patient. ??If you are a health care provider and have any questions regarding this report, please contact the number below. ??For patients who have questions please contact the health respiratory care technician that requested your imaging first. ? Electronically signed by: Parish Gomes MD, [facility] ([phone]), at 08/22/2022 11:53 AM Narrative 08/22/2022 11:53 [...] patients who have questions please contactthe health respiratory care technician that requested your imaging first. Meredith Root APRN IMG DX ORDERABLE S * EKG 12 Lead (08/22/2022 7:53 AM EDT) Ventricular rate 79 BPM MUSE SYSTEM Atrial Rate 79 BPM MUSE SYSTEM P-R Interval 134 ms MUSE SYSTEM QRS Duration 80 ms MUSE SYSTEM Q-T Interval 356 ms MUSE SYSTEM QTC Calculated (Bezet) 408 ms MUSE SYSTEM Calculated P Hemet 88 degrees MUSE SYSTEM Calculated R Hemet 11 degrees MUSE SYSTEM Calculated T Hemet 35 degrees MUSE SYSTEM INTERPRETATION Normal sinus rhythm with sinus arrhythmia Nonspecific T wave abnormality Abnormal ECG No previous ECGs available Confirmed by fellow MD Almanza Thara ([id number]) on 08/22/2022 9:42:40 AM Confirmed by MD Uribe Hannah ([id number]) on 08/23/2022 8:30:17 AM MUSE SYSTEM 08/22/2022 7:53 AM EDT 08/23/2022 8:30 AM EDT Meredith Simpsonjennifer SOLORZANO ECG ORDERABLES MUSE SYSTEM * (ABNORMAL) Differential, Automated (08/22/2022 1:10 AM EDT) Neutrophil % 90.2 % [facility] Neutrophil Absolute 5.93 1.70 - 6.10 x10(3)/mc L [facility] Lymph % 3.7 % [facility] Lymphocytes Abs 0.2(L) 0.9 - 3.2 x10(3)/mc L [facility] Monocyte % 5.6 % [facility] Monocyte Abs 0.4 0.3 - 0.9 x10(3)/mc L [facility] Eos % 0.0 % [facility] Eosinophils Abs 0.0 0.0 - 0.4 x10(3)/mc L [facility] Basophil % 0.2 % [facility] Baso Absolute 0.0 0.0 - 0.1 x10(3)/mc L [facility] Immature Gran % 0.30 % [facility] Comment: Immature granulocytes(IG's)percentage and absolute count will include metamyelocytes, myelocytes, and promyelocytes. Blood smears from CBCs yielding IG's will be scanned manually for concordance. If this scan disagrees with the automated IG or if promyelocytes are noted, a manual differential will be performed. Immature Gran Absolute 0.02 0.00 - 0.04 x10(3)/mc L [facility] Blood 08/22/2022 1:10 AM EDT 08/22/2022 1:15 AM EDT Narrative Resulting Agency Comment Spec In Lab Mayelin Hoskins MD HEMATOLOGY ORDERABL ES Performing Organization Address City/[facility]/ZIP Co de Phone Number [facility] [place] [address] * (ABNORMAL) Hemogram (08/22/2022 1:10 AM EDT) White Blood Cell 6.6 4.0 - 9.5 x10(3)/mc L [facility] Red Blood Cell 2.87(L) 4.00 - 5.21 x10(6)/mc L [facility] Hemoglobin 9.5(L) 11.7 - 15.5 g/dL [facility] Hematocrit 27.6(L) 35.7 - 45.8 % [facility] Mean Cell Volume 96.2(H) 82.6 - 94.4 fL [facility] Mean Cell Hemoglobin 33.1(H) 27.1 - 32.0 pg [facility] Mean Cell Hemoglobin Concentration 34.4 31.7 - 35.0 g/dL [facility] Platelet 202 145 - 357 x10(3)/mc L [facility] RDW Standard Deviation 42.1 37.0 - 46.0 fL [facility] RDW coefficient of variation 11.9 11.5 - 14.1 % [facility] Mean Platelet Volume 9.1 7.6 - 12.9 fL [facility] NRBC% auto 0.0 % [facility] NRBC Absolute 0.000 0.000 - 0.000 x10(3)/ L [facility] Blood 08/22/2022 1:10 AM EDT 08/22/2022 1:15 AM EDT Narrative Resulting Agency Comment Spec In Lab Mayelin Hoskins MD HEMATOLOGY ORDERABL ES Performing Organization Address City/[facility] Co de Phone Number [facility] [place] [address] * Phosphorus (08/22/2022 1:10 AM EDT) Phosphorus 2.7 2.5 - 4.5 mg/dL [facility] Blood 08/22/2022 1:10 AM EDT 08/22/2022 1:15 AM EDT Narrative Resulting Agency Comment Spec In Lab Roberth Lee MD CHEMISTRY ORDERABL ES [facility] [place] [address] * (ABNORMAL) Magnesium (08/22/2022 1:10 AM EDT) Magnesium 0.66(L) 0.69 - 1.07 mmol/L [facility] Blood 08/22/2022 1:10 AM EDT 08/22/2022 1:15 AM EDT Narrative Resulting Agency Comment Spec In Lab Roberth Lee MD CHEMISTRY ORDERABL ES [facility] [place] [address] * (ABNORMAL) Basic Metabolic Panel (non-fasting) (08/22/2022 1:10 AM EDT) Glucose 149 65 - 199 mg/dL [facility] Comment:Diabetes: >=200 mg/d L plus symptoms Blood Urea Nitrogen 6(L) 8 - 18 mg/dL [facility] Creatinine 0.64(L) 0.70 - 1.20 mg/dL [facility] Sodium 136 135 - 145 mmol/L [facility] Potassium 4.2 3.5 - 5.0 mmol/L [facility] Comment: Please note: ??Patients with WBC >100,000 may have falsely elevated Potassium levels. ??For accurate Potassium quantification in these patients send serum separator tube (gold top) for subsequent determinations. ??Contact the Clinical Chemistry Laboratory if there are any questions. Chloride 102 98 - 107 mmol/L [facility] Carbon Dioxide 26 22 - 31 mmol/L [facility] Anion Gap 8 5 - 15 mmol/L [facility] Calcium 8.8 8.5 - 10.5 mg/dL [facility] Est Glomerular Filtration Rate 107 >=60 mL/min/1. 73 m?? [facility] Comment: This patient's estimated GFR [...] MD CHEMISTRY ORDERABL ES Performing Organization Address [facility] Co de Phone Number [facility] [place] [address] * POCT Glucose (08/21/2022 8:37 PM EDT) Glucose, POC 172 65 - 199 mg/dL [facility] Comment: Supplemental ranges: <140 mg/dL before meals <180 mg/dL all other times of the day Blood 08/21/2022 8:37 PM EDT 08/21/2022 8:37 PM EDT Roberth Lee MD POINT OF CARE TEST ORDERABLES Performing Organization Address [facility] de Phone Number [facility] [place] [address] * (ABNORMAL) BLOOD GAS 2 ARTERIAL (08/21/2022 5:24 PM EDT) pH, Arterial 7.39 7.35 - 7.45 [facility] PCO2, Arterial 34(L) 35 - 45 mmHg [facility] PO2, Arterial 181(H) 85 - 104 mmHg [facility] Bicarbonate, Arterial 20.1 20.0 - 26.0 mmol/L [facility] Base Excess, Arterial -4.8(L) -3.0 - 3.0 mmol/L [facility] Hgb Blood Gas 11.0(L) 11.7 - 15.5 g/dL [facility] Oxyhemoglobin, Arterial 98.6(H) 94.0 - 97.0 % [facility] Carboxyhemoglob in, Arterial 0.3 % [facility] Comment: Nonsmokers: 0.5-1.5% COHB Smokers: Variable, but usually less than 10% Toxic: 20-30% COHB Lethal: Greater than 60% COHB Methemoglobin, Arterial 0.0 <=1.5 % [facility] Na Whole Blood 134(L) 135 - 145 mmol/L [facility] K Whole Blood 3.6 3.5 - 5.0 mmol/L [facility] Comment: Please note: Patients with WBC >100,000 may have falsely elevated Potassium levels. Contact the Clinical Chemistry Laboratory if there are any questions. ICa Whole Blood 1.05(L) 1.15 - 1.33 mmol/L [facility] Comment: Note: ??Total bilirubin higher than 20 mg/dL may lead to falsely low ionized calcium. CL Whole Blood 106 98 - 107 mmol/L [facility] Gluc Whole Bld 126 65 - 199 mg/dL [facility] Comment:Diabetes: >=200 mg/d L plus symptoms. Lactate WB 1.2 0.5 - 2.2 mmol/L [facility] Blood 08/21/2022 5:24 PM EDT 08/21/2022 5:24 PM EDT Roberht Lee MD POINT OF CARE TEST ORDERABLES Performing Organization Address [facility] Co de Phone Number [facility] [place] [address] * Specimen to Pathology (08/21/2022 2:13 PM EDT) AP Specimen 08/21/2022 2:13 PM EDT 08/21/2022 2:13 PM EDT Narrative [facility] - 08/21/2022 2:13 PM EDT Specimen requisition ordered. ??Separate Pathology report to follow Roberth Lee MD PATHOLOGY/CYTOLOGY ORDERABLES Performing Organization Address [facility]/ZIP Co de Phone Number [facility] [place] [address] * Specimen to Pathology (08/21/2022 2:13 PM EDT) AP Specimen 08/21/2022 2:13 PM EDT 08/21/2022 2:13 PM EDT Narrative [facility] - 08/21/2022 2:13 PM EDT Specimen requisition ordered. ??Separate Pathology report to follow Roberth Lee MD PATHOLOGY/CYTOLOGY ORDERABLES [facility] [place] [address] * (ABNORMAL) BLOOD GAS 2 ARTERIAL (08/21/2022 1:27 PM EDT) pH, Arterial 7.42 7.35 - 7.45 [facility] PCO2, Arterial 35 35 - 45 mmHg [facility] PO2, Arterial 162(H) 85 - 104 mmHg [facility] Bicarbonate, Arterial 22.5 20.0 - 26.0 mmol/L [facility] Base Excess, Arterial -2.5 -3.0 - 3.0 mmol/L [facility] Hgb Blood Gas 12.7 11.7 - 15.5 g/dL [facility] Oxyhemoglobin, Arterial 98.8(H) 94.0 - 97.0 % [facility] Carboxyhemoglob in, Arterial 0.2 % [facility] Comment: Nonsmokers: 0.5-1.5% COHB Smokers: Variable, but usually less than 10% Toxic: 20-30% COHB Lethal: Greater than 60% COHB Methemoglobin, Arterial 0.3 <=1.5 % [facility] Na Whole Blood 129(L) 135 - 145 mmol/L [facility] K Whole Blood 3.6 3.5 - 5.0 mmol/L [facility] Comment: Please note: Patients with WBC >100,000 may have falsely elevated Potassium levels. Contact the Clinical Chemistry Laboratory if there are any questions. ICa Whole Blood 1.13(L) 1.15 - 1.33 mmol/L [facility] Comment: Note: ??Total bilirubin higher than 20 mg/dL may lead to falsely low ionized calcium. CL Whole Blood 104 98 - 107 mmol/L [facility] Gluc Whole Bld 123 65 - 199 mg/dL [facility] Comment:Diabetes: >=200 mg/d L plus symptoms. Lactate WB 1.2 0.5 - 2.2 mmol/L [facility] FIO2 Art 56 % [facility] Flow Art 1.0 LPM [facility] PF Ratio Art 289 [facility] Temp Art 34.5 Celsius [facility] Blood 08/21/2022 1:27 PM EDT 08/21/2022 1:27 PM EDT Roberth Lee MD POINT OF CARE TEST ORDERABLES [facility] [place] [address] * (ABNORMAL) BLOOD GAS 2 ARTERIAL (08/21/2022 10:51 AM EDT) pH, Arterial 7.46(H) 7.35 - 7.45 [facility] PCO2, Arterial 32(L) 35 - 45 mmHg [facility] PO2, Arterial 75(L) 85 - 104 mmHg [facility] Bicarbonate, Arterial 23.0 20.0 - 26.0 mmol/L [facility] Base Excess, Arterial -1.6 -3.0 - 3.0 mmol/L [facility] Hgb Blood Gas 13.4 11.7 - 15.5 g/dL [facility] Oxyhemoglobin, Arterial 96.0 94.0 - 97.0 % [facility] Carboxyhemoglob in, Arterial 0.2 % [facility] Comment: Nonsmokers: 0.5-1.5% COHB Smokers: Variable, but usually less than 10% Toxic: 20-30% COHB Lethal: Greater than 60% COHB Methemoglobin, Arterial 0.3 <=1.5 % [facility] Na Whole Blood 134(L) 135 - 145 mmol/L [facility] K Whole Blood 4.0 3.5 - 5.0 mmol/L [facility] Comment: Please note: Patients with WBC >100,000 may have falsely elevated Potassium levels. Contact the Clinical Chemistry Laboratory if there are any questions. ICa Whole Blood 1.18 1.15 - 1.33 mmol/L [facility] Comment: Note: ??Total bilirubin higher than 20 mg/dL may lead to falsely low ionized calcium. CL Whole Blood 103 98 - 107 mmol/L [facility] Gluc Whole Bld 121 65 - 199 mg/dL [facility] Comment:Diabetes: >=200 mg/d L plus symptoms. Lactate WB 1.0 0.5 - 2.2 mmol/L [facility] FIO2 Art 66 % [facility] Flow Art 0.8 LPM [facility] PF Ratio Art 114 [facility] Temp Art 34.0 Celsius [facility] Blood 08/21/2022 10:5 1 AM EDT 08/21/2022 10:51 AM EDT Roberth Lee MD POINT OF CARE TEST ORDERABLES Performing Organization Address [facility] Co de Phone Number [facility] [place] [address] * Specimen to Pathology (08/21/2022 10:30 AM EDT) AP Specimen 08/21/2022 10:3 0 AM EDT 08/21/2022 10:31 AM EDT Narrative [facility] - 08/21/2022 10:31 AM EDT Specimen requisition ordered. ??Separate Pathology report to follow Roberth Lee MD PATHOLOGY/CYTOLOGY ORDERABLES Performing Organization Address [facility] [place] [address] * Surgical Pathology Report (08/21/2022 10:26 AM EDT) Final Diagnosis [id number] ? Location: [id number]; N520; A The signing [...] focal marrow fat necrosis. Electronically signed by: ?Erinn Parra MD Verified: ??08/31/2022 12:44 ??Pathologist Performed at: ??-[facility] [place] Dept. of Pathology, [place] [address] [place]: Ramírez Arredondo MD, FCAP, ??CLIA Certificate: [id number] DISCUSSION B1: ??The lymph node contains benign [...] Sections/Processi ng: Blocks submitted for decalcification: D1-D5. Rodeo Performer sections in 5 cassettes as follows: ?D1: ??Left mandibular margin en face ?D2: ??Right mandibular margin en face ?D3: ??Skin with fistula tract and underlying bone ?D4-D5: ??[place]odeo Performer dull to chalky yellow cut surfaces ??jnr 08/31/2022 12:44 PM EDT [facility] BONE STRUCTURE OF MANDIBLE / Unknown 08/21/2022 10:26 AM EDT 08/21/2022 10:26 AM EDT LYMPH NODE SPECIMEN / Unknown 08/21/2022 10:26 AM EDT 08/21/2022 10:26 AM EDT MOUTH REGION STRUCTURE / Unknown 08/21/2022 10:26 AM EDT 08/21/2022 10:26 AM EDT BONE STRUCTURE OF MANDIBLE / Unknown 08/21/2022 10:26 AM EDT 08/21/2022 10:26 AM EDT Roberth Lee MD PATHOLOGY/CYTOLOGY ORDERABLES [facility] [place] [address] [facility] [place] [address] * Specimen to Pathology (08/21/2022 10:26 AM EDT) AP Specimen 08/21/2022 10:2 6 AM EDT 08/21/2022 10:26 AM EDT Narrative [facility] - 08/21/2022 10:26 AM EDT Specimen requisition ordered. ??Separate Pathology report to follow Roberth Lee MD PATHOLOGY/CYTOLOGY ORDERABLES [facility] [place] [address] * SCAN DOC: IMPLANTABLE DEVICES (08/21/2022 12:00 AM EDT) Narrative 08/21/2022 12:00 AM EDT Ordered by an unspecified provider. Scanning Provider MEDIA MGR SCAN EXT O RDR/RSLT documented in this encounter Visit Diagnoses Not on filedocumented in this encounter Admitting Diagnoses Diagnosis Mandible fracture Closed fracture of unspecified site of mandible documented in this encounter Administered Medications Inactive Administered Medications - up to 3 most recent administrations Medication Order MAR Action Action Date Dose Rate Site cyanocobalamin (Vitamin B-12) (Vitamin B-12) tablet 1,000 mcg 1,000 mcg, Per G Tube, NIGHTLY, First dose (after last modification) on Sun09/06/22 at 2100, Until Discontinued, Routine Given 09/07/2022 8:15 PM EDT 1,000 mcg Given 09/06/2022 9:08 PM EDT 1,000 mcg [...] Given 08/29/2022 2:53 AM EDT 2.5 mg enoxaparin (Lovenox) (30 mg/0.3 mL) subcutaneous injection 30 mg 30 mg, Subcutaneous, NIGHTLY, First dose (after last modification) on Sun08/22/22 at 2100, Until Discontinued, Routine Given 09/07/2022 8:15 PM EDT 30 mg Given 09/06/2022 9:09 PM EDT 30 mg Given 09/05/2022 9:25 PM EDT 30 mg hydrocortisone 1 % cream Topical (Top), 2 [...] Given 08/28/2022 2:54 PM EDT 0.2 mg ibuprofen (Advil) tablet 600 mg 600 mg, Per G Tube, EVERY 6 HOURS PRN, Starting on Sun09/06/22 at 0908, Until Sun09/08/22 at 1620, Pain, Administer orally with milk or food to minimize GI irritation. Maximum dose of 3,200 mg from all sources in 24 hours, Routine levothyroxine (Synthroid) tablet 100 mcg 100 mcg, Oral, EVERY MORNING, First dose on Sun09/07/22 at 0600, Until Discontinued, Administer on own to promote absorption, Routine Given 09/08/2022 6:14 AM EDT 100 mcg Given 09/07/2022 6:36 AM EDT 100 mcg lidocaine (Lidoderm) 5% patch 2 patch 2 [...] Given 09/05/2022 9:25 PM EDT 0.5 mg magnesium sulfate 2 [...] of 0.5 - 0.64 mMol/L. melatonin tablet 6 mg 6 mg, Per [...] in 30 minutes, give additional 5mg., Routine pantothenic Ac-Min Oil-Pet,Hyd (Aquaphor) 41 % ointment 1 each 1 each, Topical (Top), 2 TIMES DAILY, First dose on Sun08/21/22 at 2115, Until Discontinued, Clean incision with sterile saline or half strength hydrogen peroxide and apply aquaphor incision twice daily. Given 09/08/2022 8:33 AM EDT 1 each Given 09/07/2022 9:04 PM EDT 1 each [...] 1 each Given 09/07/2022 9:52 AM EDT polyethylene glycoL (Miralax) packet 17 g 17 [...] Given 08/29/2022 10:20 PM EDT 10 mg protein powder 1 Scoop, Per G Tube, [...] Until Discontinued, Verify scopolamine 1 mg patch. tube feeding diet 300 mL, Per G [...] shown in EDT. Scheduled Medication Order 09/06/2022 09/07/2022 09/08/2022 cyanocobalamin (Vitamin B-12) (Vitamin B-12) tablet 1,000 [...] Last dose on Sun09/06/22 at 0615, Routine 16 (Given - Provider: Araceli Velasco RN)06 (Given - Provider: Araceli Velasco RN) levothyroxine (Synthroid) injection 70 mcg (CANCELED) 70 mcg, Intravenous, at 210 mL/hr, Administer over 1 Minutes, EVERY MORNING, First dose on Sun09/04/22 at 0700, Until Discontinued, Do not administer faster than 100 mcg per minute , Routine 617 (Given - Provider: Araceli Velasco RN) levothyroxine (Synthroid) tablet 100 mcg 100 mcg, [...] Routine 2107 (Patch Applied - Provider: Jada Chváez RN) 0600 (Patch Removed - Provider: Jada Chávez RN)2099 (Not Given - Provider: Jada Chávez RN - Reason: Patient/family refused) melatonin tablet 6 mg 6 mg, Per G Tube, DAILY AFTER DINNER, First dose (after last modification) on Sun09/06/22 at 2000, Until Discontinued, Routine 1999 (Not Given - [...] peroxide and apply aquaphor incision twice daily. 0820 (Given - Provider: Suzette Verdugo LPN)2099 (Given - Provider: Jada Chávez RN) 0953 (Given - Provider: Per Meza RN)2103 (Given - Provider: Jada Chávez RN) 0833 (Given - Provider: Didier Perry, FUENTES) pantothenic Ac-Min Oil-Pet,Hyd (Aquaphor) 41 % ointment [...] Chávez RN) 0832 (Given - Provider: Didier Perry, FUENTES) protein powder 1 Scoop, Per G Tube, 2 TIMES DAILY, First dose on Sun09/06/22 at 1000, Until Discontinued, Routine 1209 (Given - Provider: Theresa Merino RN)1700 (Given - Provider: Theresa Merino RN) 0900 (Given - Provider: Per Meza, RN)1700 (Given - Provider: Per Meza, RN) 0900 (Given - Provider: Didier Perry, FUENTES) scopolamine (Transderm-Scop) 1 mg over 3 days [...] (dose and location) verified - Provider: Per Mzea RN)2100 (Patch (dose and location) verified - [...] not available)1300 (New Bag - Provider: Theresa Merino RN)1700 (New Bag - Provider: Theresa Merino RN)2100 (Hold - Provider: Jada Chávez RN - Reason: See comment - Comment: Greater than 90 residual, pt stomach is feeling full, provider page and aware) 0900 (New Bag - Provider: Per Meza RN)1300 (New Bag - Provider: Per Meza RN)1700 (New Bag - Provider: Per Meza RN)2100 (New Bag - Provider: Jada Chávez, FUENTES) 0847 (New Bag - Provider: Didier Perry RN)1300 (New Bag - Provider: Per Meza RN) PRN Medication Order 09/06/2022 09/07/2022 09/08/2022 cyclobenzaprine [...] Sleep, Routine 0042 (Given - Provider: Jada Chváez RN) HYDROmorphone (Dilaudid) (0.5 mg/0.5 mL) injection [...] in 30 minutes, give additional 5mg., Routine 819 (Given - Provider: Suzette Verdugo LPN) oxyCODONE (Roxicodone) tablet 10-15 mg(Linked Group 3) 10-15 mg, Per G Tube, EVERY 4 HOURS PRN, Starting on Sun09/06/22 at 0909, Until Sun09/08/22 at 1620, Pain, severe pain (7-10), Initial dose 10mg. If pain control not adequate in 30 minutes, give additional 5mg., Routine 1223 (Given - Provider: Theresa Merino RN)1952 (Given - Provider: Jada Chávez RN) 024 (Given - Provider: Jada Chávez RN)0647 (Given - Provider: Jada Chávez, FUENTES)105 (Given - Provider: Per Meza, RN)160 (Given - Provider: Per Meza, RN)2014 (Given [...] RN)06 (See Alternative - Provider: Jada Chávez RN)105 (See Alternative - Provider: Per Meza, FUENTES)160 (See Alternative - Provider: Per Meza, RN)2014 (See Alternative - Provider: Jada Chávez RN) 41 (See Alternative - Provider: Jada Chávez RN)044 (See Alternative - Provider: Jada Chávez RN) [...] Routine documented in this encounter Care Teams Measuring Machine Tender Relationship Specialty Start Date End Date Dev, Tita Butt APRN [address] [facility] [address] [place] [address] PCP - General Internal Medicine 05/15/22 documented as of this encounter
--- OUTSIDE RECORDS SUMMARY | 2023-12-08 20:00 | XMS_ITS | Encounter Summary ---
Author Organization [facility], Later [facility] [place] [address] Care Team Providers Care Advertising Space Clerk Name Role Phone Dev, Tita Butt APRN Primary Care Provider [phone]- [phone] Reason for Visit * Auth/Cert (Routine) Specialty [...] MICROVASC, FIBULA (WRVU 45.43) Roberth Lee MD [facility] [place] [address] [facility] Referral ID Status Reason Start Date Expiration Date Visits Re quested Visits Authorized [id number] 1 Encounter Details Date Type Department Care Team (Late st Contact Info) Description 08/30/2022 9:30 AM EDT Clinical Support [place] [address] Dental anomaly Social History Tobacco Use Types Packs/Day Years [...] as of this encounter Progress Notes * Maria Esther Dobbins LNA - 08/30/2022 9:30 AM EDT Images from the original note were not included. documented in this encounter Plan of Treatment Not on file documented as of this encounter Visit Diagnoses Diagnosis Dental anomaly Unspecified disorder of tooth development and eruption documented in this encounter Care Teams Advertising Space Clerk Relationship Specialty Start Date End Date Tita Méndez APRN [address] [place] [address] PCP - General Internal Medicine 05/15/22 documented as of this encounter
--- OUTSIDE RECORDS SUMMARY | 2023-12-08 20:00 | XMS_ITS | Encounter Summary ---
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
--- OUTSIDE RECORDS SUMMARY | 2023-12-08 20:00 | XMS_ITS | Encounter Summary ---
Author Organization [facility] [place] [address] Care Team Providers Care Manager Office Services Name Role Phone Dev, Tita Butt APRN Primary Care Provider [phone] Reason for Visit * Auth/Cert (Routine) Specialty [...] MICROVASC, FIBULA (WRVU 45.43) Roberth Lee MD [facility] [place] [address] [facility] Referral ID Status Reason Start Date Expiration Date Visits Re quested Visits Authorized [id number] 1 1 Encounter Details Date Type Department Care Team (Late st Contact Info) Description 09/03/2022 Surgery [place] [id number] Gaurang Gonzalez MD [facility] [place] [address] Not Performed ENDOSCOPY W DIRECTED PLACEMENT PERCUTANEOUS GASTROSTOMY TUBE-PEG (WRVU 3.56) Social History Tobacco Use Types Packs/Day Years [...] Sign Reading Time Taken Comments Blood Pressure 133/64 09/06/2022 7:31 PM EDT Pulse 73 09/06/2022 7:31 PM EDT Temperature 37 ??C (98.6 ??F) 09/06/2022 7:31 PM EDT Respiratory Rate 16 09/06/2022 7:31 PM EDT Oxygen Saturation 99% 09/06/2022 7:31 PM EDT Inhaled Oxygen Concentration - - [...] follows: Primary site: Left lateral tongue Stage: [id number] Surgery(ies): 10/31/06 - Hemiglossectomy, left neck dissection [...] and if no improvement revisit with the case management specialist. She was satisfied with this plan. Reason [...] tolerated tube feeds well. She worked with CERTIFIED PROSTHETIST on POD 8 and her feeding tube was removed on POD 9 in an attempt to encourage more p.o. intake. The patient complained of difficulty swallowing and fatigue during eating. She also was noted to have significant coughing after swallowing. She was evaluated by the CERTIFIED PROSTHETIST and was initially cleared for a full [...] was discontinued. She continued to work with CERTIFIED PROSTHETIST throughout the hospital stay. The patient had [...] who have questions please contact the health senior care provider that requested your imaging first. Electronically signed by: LILY CELESTE MD, [facility] ([phone]), at 08/22/2022 6:52 PM XR Abdomen 1 view (Generic) Result Date: 08/22/2022 EXAMINATION: XR ABDOMEN 1 VIEW (GENERIC) CLINICAL HISTORY: s/p NGT placement (as entered by ordering provider in the order requisition) TECHNIQUE: Portable supine AP view of the upper abdomen. The right lateral margin of the abdominal cavity and the lower abdomen and pelvis are excluded from the imaged jaxaa-ia-bgoz. COMPARISON: Abdominal radiograph 08/22/2022. FINDINGS: This enteric [...] who have questions please contact the health senior care provider that requested your imagingfirst. Electronically signed by: Nicki Castanon MD, [facility] ([phone]), at 08/22/2022 4:14 PM XR Abdomen 1 [...] who have questions please contact the health senior care provider that requested your imaging first. Electronically signed by: Parish Gomes MD, [facility]([phone]), at 08/22/2022 12:12 PM --------ORIGINAL REPORT -------- [...] who have questions please contact the health senior care provider that requested your imaging first. Electronically signed by: Parish Gomes MD, [facility] ([phone]), at 08/22/2022 11:53 AM Result Date: 08/22/2022 [...] first. Electronically signed by: Parish Gomes MD, [facility] ([phone]), at 08/22/2022 11:53 AM XR PICC Placement [...] who have questions please contact the health senior care provider that requested your imaging first. Electronically signed by: Silvia Lee MD, [facility] ([phone]), at 09/02/2022 5:04 PM IR G-Tube Placement Result Date: 09/05/2022 Table formatting from the original result was not included. Images from the original result were not included. IR PROCEDURE NOTE Procedure: Gastrostomy tube placement. Indication for Procedure: Per Princess ALAMO, Theresa Wyattteddynorm is a 52 y.o. female with PMH [...] with an 8mm balloon catheter. A 16 Trinidadian balloon retained gastrostomy tube was placed. The [...] patients who have questions please contactthe health senior care provider that requested your imaging first. Electronically signed by: Thong Lee MD, [facility] ([phone]), at 09/07/2022 4:26 PM XR Chest One [...] who have questions please contact the health senior care provider that requested your imaging first. Electronically signed by: Dar Villanueva MD, [facility] ([phone]), at 08/30/2022 8:43 AM XR Chest One [...] cap 0.01 % Oil Commonly known as: Minford-Smoothe/FS Scalp Oil Apply topically to scalp under [...] Allergies Allergen Reactions Tylenol [Acetaminophen] Anaphylaxis Allergenic Dvvenym-Kcbj-Lbtlf Itching Applesauce Peanut Itching Benzocaine Made pt [...] by Interventional Radiology. Please call them at [phone] if any concerns. Oral Care: For all [...] get Peridex on the $4 list at [facility]. Activity: A good rule of thumb [...] -You can reach the ENT clinic at [phone] for appointment questions. -The ENT triage nurse is available at [phone] -For urgent issues during evenings (5 PM - 7 AM) and weekends the ENT resident nuclear plant construction worker can be reached through the main hospital spiral machine operator at [phone] Follow Up: You will need to follow [...] this with your other appointments. Please call [phone] to receiveyour date and time. You will [...] 8:30 AM Hermelindo Kearney PA Otolaryngology at [facility] Arrive at: [facility] Area 4F [phone] 09/14/2022 8:30 AM Kam Mclean PA Maxillofacial Surgery at [facility] Arrive at: Marine Architect Area 5B [phone] 09/14/2022 9:00 AM Dimitry Marin PA Plastic Surgery at [facility] Arrive at: Marine Architect Area 4M [phone] 09/14/2022 9:30 AM [facility] IR RECOVERY Radiology at [facility] Arrive at: 3Z RADIOLOGY [phone] 09/14/2022 10:00 AM Roberth Agudelo SLP Otolaryngology at [facility] Arrive at: Marine Architect Area 4F [phone] 10/25/2022 11:00 AM Evelio Gimenez MD Endocrinology at [facility] Arrive at: Marine Architect Area 3A [phone] Future Orders Complete By Expires IR Suture Release [[id number] Custom] 09/12/2022 03/14/2023 Process Instructions: Scheduling Instructions: Comments: Questions: Where will study be performed?: [facility] Radiology Reason for exam and clinical history: [...] Oral cancer Referral for Home Tube feeds [EFC7606 CPT(R)] As directed Process Instructions: Scheduling Instructions: Comments: [facility] [address] [facility] [facility] [phone] (home) [phone] (work) - Telephone Information: Medicaid: NO Narrative: Patient has a feeding tube and requires tube feedings and supplies necessary to maintainnutritional support . PO INtake in very small amounts for swallow practice only VENDOR:[address] [address] or Supporting Diagnosis: SCC of the tongue [...] Additional instruction: Questions: Vendor / contact information: [facility] Patient location post discharge: home-[place], [place] Service requested: tube feed and supplies Start date: 08/31/2022 Responsible MD post discharge contact info: PCP Referral to Home Health [REF34 Custom] As directed Process Instructions: If no progress note charted, please enter Clinical details in comments. Scheduling Instructions: Comments: Please evaluate Theresa Hollis for admission to Home [facility]. [address] [facility] [address] (home) [phone] (work) Date of : 1970 Inpatient DOCUMENTATION FOR VNA SERVICES (INCLUDING THOSE PATIENTS WITH MEDICARE COVERAGE REQUIRING HOME VNA SERVICES AND/OR HOSPICE SERVICES) PATIENT'S LOCATION: Theresa Hollis [address] [facility] [phone] (home) Cell: Telephone Information: Mailroom Personnel's Name: Theresa In discussion with the attending physician, it is certified that this patient is under their care and that they, or a Nurse Practitioner, Clinical Nurse specialist or Physician Architectural Technologist who is working directly with them, had [...] both the lower leg and thigh wounds.) CERTIFIED PROSTHETIST: Evaluate and treat as appropriate. SIGN HANGER: Emotional support and community case management. HOME HEALTH CARE AGENCY: [facility] [address] [address] Start of care: Within 24 to 48 hours of discharge. Questions: Disciplines Requested: Nursing Speech Language Pathology Medical Social Work (If Patient Meets Eligibility Requirements) Referral to Speech Therapy [QCV735 Custom] As directed Process Instructions: Scheduling Instructions: [...] the stages in any order and may [place] back to repeat any of the stages [...] your life. Don't be discouraged if you [place] to any of the other stages [...] and security. Those people you can have ???icmbw-mg-sllxg?? talks with. Engage in a mentoring relationship [...] it. Information from Dr. Samia Goldsmith, Psychiatrist [email or web address] ................................................................................ ............................................................... Support Groups: [facility] offers a variety of free programs that enhance the well- being of patients and care partners throughout the cancer journey. [email or web address]://[email or web address]/organizer/cypxxl-qfmrlj-uodmjdti-families /page/2/ Classes and workshops are offered to anyone who has received care at the [facility], regardless of location. All of our support groups are open to anyone in the region regardless of where they received their treatment and are facilitated by experienced, caring staff members. Everythingdiscussed in each group is confidential. All programs require pre-registration. To register, contact us at [phone] or [email or web address]. Support for People with Oral and Head and Neck Cancer (SPOHNC) [facility] Quarterly variable days *5:00 p.m. to 7:00 p.m. *Call [facility] for Information - ( ) [facility] Conference Room Sunday of each month *4:00 p.m. - 5:30 p.m. *Call [facility] for Information - ( ) ................................................................................ .................... ................................................................................ ................... 988 has been designated as the new three-digit dialing code that will route callers to the NationalSuicide Prevention Lifeline (now known as the 988 Suicide & Crisis Lifeline), and is now activeacross the [facility]. When people call, text, or chat 988, they will be connected to trained counselors that are part of the existing Lifeline network. These trained counselors will listen, understand how their problems are affecting them, provide support, and connect them to resources if necessary. The previous Lifeline phone number ( ) will always remain available to people in emotional distress or suicidal crisis. 687-DF-MSHOY The [facility] Support Line provides confidential, non-judgmental support and connection for all [facility] over the age of 18 by phone. It???s staffed by local peers who???ve been through tough situations themselves. They listen, talk with you, provide insight, and help you face life???s challenges. Different from a crisis helpline or emergency hotline, the [place] Support Line is a ???warm line?? -- [...] concerns, relationship challenges, or thoughts of suicide. [facility] Interventional Radiology Discharge Instructions for Feeding Tube [...] or its attachments. INTERVENTIONAL RADIOLOGY PHONE NUMBERS [phone] If you have a NON Low profile feeding tube, call with any questions or concerns. During regular office hours call: [phone]. If it is after regular office hours, weekends or holidays, please call [phone] and ask to speak to the Commutator V Ring Assembler nuclear plant construction worker for Interventional Radiology. If you have a low profile ???SARTHAK-RAMOS?? feeding tube, please call Nadine Early RN for any issues: [phone]. Revised 01/02/19 __ Your Medications New Medications [...] cap 0.01 % Oil Commonly known as: Minford-Smoothe/FS Scalp Oil Apply topically to scalp under [...] Center 09/14/2022 8:30 AM Hermelindo Kearney PA [facility] JHONATAN [facility] 09/14/2022 8:30 AM Kam Mclean PA [facility] MXLO 5B [facility] 09/14/2022 9:00 AM Dimitry Marin PA [facility] PLAS 4M [facility] 09/14/2022 9:30 AM [facility] IR RECOVERY MH IR [facility] Rad 09/14/2022 10:00 AM Roberth Agudelo, CERTIFIED PROSTHETIST [facility] 10/25/2022 11:00 AM Evelio Gimenez MD [facility] ENDO [facility] Outpatient Services/Studies: IR Suture Release Standing Status: Future Standing Exp. Date: 03/14/23 Question Response Notes Where will study be performed? [facility] Radiology [120] Reason for exam and clinical history: s/p G tube placement 09/05/22, planning anchor release in 7-10days. Is the patient on anticoagulant / antiplatelet therapy ? No Is the patient ? No Referral to Home Health Referral Priority: Routine Referral Type: Home Health Care Referral Reason: Consult, Test & Treat Referred to Provider: [facility] [place] Number of Visits Requested: 999 Referral to Speech Therapy Referral Priority: Routine Referral Type: Speech Therapy Referral Reason: Evaluate and Treat Referred to Provider: ROBERTH AGUDELO Number of Visits Requested: 12 Referral for Home Tube feeds Order Comments: Theresa Hollis [address] [facility] [phone] (home) [phone] (work) - Telephone Information: Medicaid: NO Narrative: Patient has a feeding tube and requires tube feedings and supplies necessary to maintainnutritional support . PO INtake in very small amounts for swallow practice only VENDOR:[address] [address] or Supporting Diagnosis: SCC of the tongue [...] Question Response Notes Vendor / contact information [facility] Patient location post discharge home-[place], [place] Service requested tube feed and supplies Start date 08/31/2022 Responsible MD post discharge contact info PCP Primary Care Doctor: Tita Toddost, LEATHER SEASONER [phone] Signed: Toño Pacheco MD 09/08/2022 documented in [...] the stages in any order and may [place] back to repeat any of the stages [...] your life. Don't be discouraged if you [place] back to any of the other stages [...] and security. Those people you can have ???yicba-tc-syupv?? talks with. Engage in a mentoring relationship [...] it. Information from Dr. Samia Goldsmith, Psychiatrist [email or web address] ................................................................................ ............................................................... Support Groups: [facility] offers a variety of free programs that enhance the well- being of patients and care partners throughout the cancer journey. https://[email or web address].[facility].[email or web address]/organizer/hxirre-jcdull-kdbdifrq-families /page/2/ Classes and workshops are offered to anyone who has received care at the [facility], regardless of location. All of our support groups are open to anyone in the region regardless of where they received their treatment and are facilitated by experienced, caring staff members. Everythingdiscussed in each group is confidential. All programs require pre-registration. To register, contact us at [phone] or [email or web address]. Support for People with Oral and Head and Neck Cancer (SPOHNC) [facility] Quarterly variable days *5:00 p.m. to 7:00 p.m. *Call [facility] for Information - ( ) [facility] Conference Room Sunday of each month *4:00 p.m. - 5:30 p.m. *Call [facility] for Information - ( ) ................................................................................ .................... ................................................................................ ................... 988 has been designated as the new three-digit dialing code that will route callers to the NationalSuicide Prevention Lifeline (now known as the 988 Suicide & Crisis Lifeline), and is now activeacross the [place]. When people call, text, or chat 988, they will be connected to trained counselors that are part of the existing Lifeline network. These trained counselors will listen, understand how their problems are affecting them, provide support, and connect them to resources if necessary. The previous Lifeline phone number ( ) will always remain available to people in emotional distress or suicidal crisis. 544-YE-DMWOH [facility] Support Line provides confidential, non-judgmental support and connection for all [facility] over the age of 18 by phone. It???s staffed by local peers who???ve been through tough situations themselves. They listen, talk with you, provide insight, and help you face life???s challenges. Different from a crisis helpline or emergency hotline, the [place] Support Line is a ???warm line?? -- [...] concerns, relationship challenges, or thoughts of suicide. [facility] Interventional Radiology Discharge Instructions for Feeding Tube [...] or its attachments. INTERVENTIONAL RADIOLOGY PHONE NUMBERS [phone] If you have a NON Low profile feeding tube, call with any questions or concerns. During regular office hours call: [phone]. If it is after regular office hours, weekends or holidays, please call [phone] and ask to speak to the Commutator V Ring Assembler nuclear plant construction worker for Interventional Radiology. If you have a low profile ???SARTHAK-RAMOS?? feeding tube, please call Nadine Early RN for any issues: [phone]. Revised 01/02/19 * Patient Instructions* Toño Pacheco [...] by Interventional Radiology. Please call them at [phone] if any concerns. Oral Care: For all [...] get Peridex on the $4 list at [facility]. Activity: A good rule of thumb [...] -You can reach the ENT clinic at [phone] for appointment questions. -The ENT triage nurse is available at [phone] -For urgent issues during evenings (5 PM - 7 AM) and weekends the ENT resident nuclear plant construction worker can be reached through the main hospital spiral machine operator at [phone] Follow Up: You will need to follow [...] this with your other appointments. Please call [phone] to receiveyour date and time. You will [...] 8:30 AM Hermelindo Kearney PA Otolaryngology at [facility] Arrive at: Marine Architect Area 4F [phone] 09/14/2022 8:30 AM Kam Mclean PA Maxillofacial Surgery at [facility] Arrive at: Marine Architect Area 5B [phone] 09/14/2022 9:00 AM Dimitry Marin PA Plastic Surgery at [facility] Arrive at: Marine Architect Area 4M [phone] 09/14/2022 9:30 AM [facility] IR RECOVERY Radiology at [facility] Arrive at: 3Z RADIOLOGY [phone] 09/14/2022 10:00 AM Roberth Agudelo SLP Otolaryngology at [facility] Arrive at: Marine Architect Area 4F [phone] 10/25/2022 11:00 AM Evelio Gimenez MD Endocrinology at [facility] Arrive at: Marine Architect Area 3A [phone] Future Orders Complete By Expires IR Suture Release [[id number] Custom] 09/12/2022 03/14/2023 Process Instructions: Scheduling Instructions: Comments: Questions: Where will study be performed?: [facility] Radiology Reason for exam and clinical history: [...] Oral cancer Referral for Home Tube feeds [VYN0695 CPT(R)] As directed Process Instructions: Scheduling Instructions: Comments: Theresa Cordonnorm [address] [facility] [phone] (home) [phone] (work) - Telephone Information: Medicaid: NO Narrative: Patient has a feeding tube and requires tube feedings and supplies necessary to maintainnutritional support . PO INtake in very small amounts for swallow practice only VENDOR:[employer] [address] [address] or Supporting Diagnosis: SCC of the tongue [...] Additional instruction: Questions: Vendor / contact information: [facility] Patient location post discharge: home-[place], [place] Service requested: tube feed and supplies Start date: 08/31/2022 Responsible MD post discharge contact info: PCP Referral to Home Health [REF34 Custom] As directed Process Instructions: If no progress note charted, please enter Clinical details in comments. Scheduling Instructions: Comments: Please evaluate Theresa Hollis for admission to Home Health. [address] [facility] [address] (home) [phone] (work) Date of : 1970 Inpatient DOCUMENTATION FOR VNA SERVICES (INCLUDING THOSE PATIENTS WITH MEDICARE COVERAGE REQUIRING HOME VNA SERVICES AND/OR HOSPICE SERVICES) PATIENT'S LOCATION: Theresa Hollis [address] [facility] [address] (home) Cell: Telephone Information: Mailroom Personnel's Name: Theresa In discussion with the attending physician, it is certified that this patient is under their care and that they, or a Nurse Practitioner, Clinical Nurse specialist or Physician Architectural Technologist who is working directly with them, had [...] both the lower leg and thigh wounds.) CERTIFIED PROSTHETIST: Evaluate and treat as appropriate. SIGN HANGER: Emotional support and community case management. HOME HEALTH CARE AGENCY: [facility]. [address] [place] [address] Start of care: Within 24 to 48 hours of discharge. Questions: Disciplines Requested: Nursing Speech Language Pathology Medical Social Work (If Patient Meets Eligibility Requirements) Referral to Speech Therapy [[id number] Custom] As directed Process Instructions: Scheduling Instructions: [...] 3 07/31/2022 03/22/2023 fluocinolone and shower cap (Minford-Smoothe/FS Scalp Oil) 0.01 % Oil Apply topically [...] to call with concerns. * Roberth Agudelo, CERTIFIED PROSTHETIST - 09/08/2022 8:13 AM EDT Speech-Language Pathology [...] 09/14/22 in ENT clinic. Roberth Agudelo MS, [facility]-CERTIFIED PROSTHETIST Speech-Language Pathologist Rehabilitation Medicine Pager #[phone] * Emmanuel Khalil MD - 09/08/2022 7:10 AM EDT Plastic Surgery Inpatient Progress Note (Team Pager #[phone] Date of surgery: 08/21/22 CC/Procedure(s): Oromandibular reconstruction [...] Khalil MD Plastic Surgery Inpatient Team Pager #[phone] Attending: Pt seen and examined . HEr [...] weakness, pain Assistance: SBA with FWW Supervision: Meridian with minimal assist Surveillance: suction at bedside, clutter free environment, call ramirez within reach, bed locked in low position, trach to go at bedside CPG GOAL OUTCOME EVALUATION: Continue with plan of care as documented * Umang Meza, WEED CONTROL INSPECTOR - 09/07/2022 4:33 PM EDT Physical Therapy Intervention Note Treatment Number PT: 5 Patient profile: Theresa Hollis is a 52 y.o. 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 Has ~ [address] without rails. Normallyindependent without device. 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 Stairs: Practiced with single railing and GRINDER LAP, then railing and SPC, then just a [...] stated above. Total Minutes, Physical Therapy: 30 ([id number]) Billing Code: TEFx2 Umang Meza, ENOCH Pager: [phone] Physical Therapy Inpatient Rehabilitation Department * Derrick [...] discuss plan with provider Cheryl Pacheco MD #[id number] . Current Nutrition Regimen: Active Orders Diet NPO diet (Give Meds) Frequency: Effective Midnight Number of Occurrences: Until Specified Assessment: Lab Results Component Value Date NA 140 09/07/2022 K 4.6 09/07/2022 CL 103 09/07/2022 CO2 29 09/07/2022 BUN 23 (H) 09/07/2022 CREATININE 0.55 (L) 09/07/2022 ESTGFR 111 09/07/2022 MAGNESIUM 0.94 09/07/2022 CALCIUM 9.4 09/07/2022 PHOS 4.3 09/07/2022 [id number] 213 (L) 08/22/2022 No results found for: [...] encounter: 46 kg (101 lb 8 oz). [place] Body Weight (IBW) (kg): 50 Wt Readings [...] assess (Fransisca, FARRUKHEN J Parenteral Enteral Nutr. 2011; 36(3): 273-83) Nutrition to continue to follow up while inpatient [address] * Per Meza RN - 09/07/2022 11:56 AM EDT Page Confirmation To Pager number: [phone] From Submitter: Per Meza Urgency Level: Urgent Callback Number: [phone] The following Message was sent: [Urgent] - Callback:[phone]- reporting difficulty breathing. RT is present and states not stoma related - Per Meza The following status was returned from the cocktail server: Page for [phone] successfully sent to [phone] having status of Available. * Roberth Agudelo, ROD - 09/07/2022 9:57 AM EDT Speech Therapy Note Patient Profile: Theresa Hollis is a 52 y.o. female with a history of I6L8zQ2 SCCa of the left lateral tongue s/p [...] Pt was seen today for a follow-up CERTIFIED PROSTHETIST visit. Pt continues to conduct PO trials [...] aspiration. - goal met. Plan: Therapy Frequency (CERTIFIED PROSTHETIST Eval): 2-4 times/wk Patient / family are in agreement with treatment plan. Total Minutes (Speech Language Pathology): 15 Thank you for this consult with this patient. Please feel free to page me with any questions or concerns. Roberth Agudelo MS, [facility]-CERTIFIED PROSTHETIST Pager: [phone] Speech-Language Pathology Inpatient Rehabilitation Department * Toño Pacheco MD - 09/07/2022 7:22 AM EDT OTOLARYNGOLOGY - HEAD & NECK SURGERY DAILY PROGRESS NOTE Name: Theresa Hollis Age/Sex: 52 y.o. female Attending: Roberth Lee MD Hospital Day: 18 2 Days Post-Op Patient ID/Reason for Admission Theresa Hollis is a 52 y.o. 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 She underwent tracheostomy, neck exploration, mandible excision, and fibula free flap reconstruction 08/21 with ENT and PRS. Interval History - Tolerated bolus TF without issue yesterday - FEES coordinated with CERTIFIED PROSTHETIST demonstrated c/f aspiration, to remain NPO for [...] PGY1 09/07/22 7:22 AM ENT Team Pager: [phone] * Kelly Laguna MD - 09/07/2022 7:05 AM EDT Plastic Surgery Inpatient Progress Note (Team Pager #[phone] Date of surgery: 08/21/22 CC/Procedure(s): Oromandibular reconstruction [...] MENDOZA APRN Plastic Surgery Inpatient Team Pager #[phone] Attending: Pt seen and examined . HEr [...] continue to monitor pt * Roberth Agudelo, CERTIFIED PROSTHETIST - 09/06/2022 1:42 PM EDT Speech Therapy Fiberoptic Endoscopic Evaluation of Swallowing (FEES) Patient Profile: Theresa Hollis is a 52 y.o. female with a history of X3G5tF2 SCCa of the left lateral tongue s/p [...] left nares by ENT physician. Bolus Presentation(s) [place] thickened liquid 3 mL, via spoon Oral Preparatory Phase Mastication: N/A Oral Transit: Reduced transit. [place] assists with transit through oral cvaity. Bolus [...] of Tongue Retraction: Reduced. Pharygneal Residue: present. [place]-thick liquids mix with thick secretions in valleculae [...] dysphagia therapy. Pt would benefit from skilled CERTIFIED PROSTHETIST services to maximize swallow function and safety [...] each bolus. Pt will benefit from continued CERTIFIED PROSTHETIST services while hospitalized and Pt will benefit from CERTIFIED PROSTHETIST services in the discharge location. Speech Therapy Goals: (To be met by discharge) Pt will tolerate least restrictive diet without evidence of dysphagia / aspiration. Pt / caregiver will be independent with aspiration precautions, diet modifications, and safe swallowing strategies. Pt will participate in FEES to evaluate swallow function and rule out silent aspiration. - goal met. Plan: Therapy Frequency (CERTIFIED PROSTHETIST Eval): 2-4 times/wk Pt./family are in agreement with treatment plan. Total Minutes (Speech Language Pathology): 40 Thank you for this consult with this patient. Please feel free to page me with any questions or concerns. 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 Plan: -Suture release ordered and scheduled for 09/12. -IR will sign-off at this time. Please page with further questions and concerns. Princess Abarca PA-C Interventional Radiology IR Team Pager [phone] * Toño Pacheco MD - 09/06/2022 9:09 AM EDT OTOLARYNGOLOGY - HEAD & NECK SURGERY DAILY PROGRESS NOTE Name: Theresa Hollis Age/Sex: 52 y.o. female Attending: Roberth Lee MD Hospital Day: 17 1 Day Post-Op Patient ID/Reason for Admission Theresa Hollis is a 52 y.o. female with a history of S2B3hX1 SCCa of the left lateral tongue s/p [...] stoma. Plan for FEES this afternoon with CERTIFIED PROSTHETIST to assess swallowing. Surgical/Head&Neck: Neck should remain [...] PGY1 09/06/22 9:10 AM ENT Team Pager: [phone] * Dimitry Marin PA - 09/06/2022 6:50 AM EDT Plastic Surgery Inpatient Progress Note (Team Pager #[phone] Date of surgery: 08/21/22 CC/Procedure(s): Oromandibular reconstruction [...] CALLY Baker Plastic Surgery Inpatient Team Pager #[phone] * Francisco Bello RCP - 09/05/2022 9:28 PM EDT RT Tracheostomy Note Theresa Hollis is a 52 y.o. female with a history of Y0D4mT2 SCCa of the left lateral tongue s/p [...] Pt is a Difficult airway, sign at [facility] Trach supplies remain in room for [...] discuss plan with provider Cheryl Pacheco MD #[id number] . Current Nutrition Regimen: Active Orders Diet NPO diet (Give Meds) Frequency: Effective Midnight Number of Occurrences: Until Specified TPN Medication Recent History (Show up to 3 orders; newest on the left. Changes between the two most recent orders are indicated.) Start date and time 09/04/2022179909/01/2022179908/31/2022 1800 TPN Adult [[id number]] TPN Adult [[id number]] TPN Adult [[id number]] Order Status Active Completed Completed Last Admin New Bag at 09/04/2022 172 by Theresa Merino RN New Bag at 09/03/2022 171 by Annemarie Camarena RN New Bag at 08/31/2022 172 by Catherine Morataya RN Frequency Continuous (1799) [...] 09/05/2022 CALCIUM 9.3 09/05/2022 PHOS 3.9 09/05/2022 [id number] 213 (L) 08/22/2022 No results found for: POCGLU Patient Lines/Drains/Airways Status Active Nutritional LDAs Name Placement date Placement time Site Days Enterostomy Tube 09/05/22 1155 gastrostomy tube with balloon feeding 09/05/22 1155 -- less than 1 PICC Line - Single Lumen 09/02/22 1633 basilic vein (medial side of arm), right 4 Fr 09/02/22 1633 -- 3 Closed/Suction Drain Right;Anterior Neck Bulb 15 Trinidadian 08/21/22 1947 Neck 15 Physical Findings Skin: [...] encounter: 46 kg (101 lb 8 oz). [place] Body Weight (IBW) (kg): 50 Wt Readings [...] drsg reinforced over stoma. * Roberth Agudelo, CERTIFIED PROSTHETIST - 09/05/2022 11:26 AM EDT Speech-Language Pathology Progress Note 09/05/2022 11:26 AM Total Treatment Time: 0 min. No charge Total Timed Code Treatment: 0 min. Chart reviewed. Pt NPO for G-tube placement again today. Coordinated care with ENT. Plan for FEES assessment on 09/06/22 at 1PM. Roberth Agudelo MS, [facility]-CERTIFIED PROSTHETIST Speech-Language Pathologist Rehabilitation Medicine Pager #[phone] * Akhil Martinez PA - 09/05/2022 9:18 AM EDT Plastic Surgery Inpatient Progress Note (Team Pager #[phone] Date of surgery: 08/21/22 CC/Procedure(s): Oromandibular reconstruction [...] CALLY Owens Plastic Surgery Inpatient Team Pager #[phone] * Toño Pacheco MD - 09/05/2022 7:29 AM EDT OTOLARYNGOLOGY - HEAD & NECK SURGERY DAILY PROGRESS NOTE Name: Theresa Hollis Age/Sex: 52 y.o. female Attending: Roberth Lee MD Hospital Day: 16 15 Days Post-Op Patient ID/Reason for Admission Theresa Hollis is a 52 y.o. female with a history of E0T1pW6 SCCa of the left lateral tongue s/p [...] 3 Closed/Suction Drain Right;Anterior Neck Bulb 15 Trin[place]adian 08/21/22 1947 Neck 15 Trach Airway 08/28/22 1616 08/28/22 1616 -- 8 Prophylaxis: Lovenox, SCD, activity per PRS Disposition: Floor status, Attempt Cardiopulmonary Resuscitation - Inpatient Discharge: Plan for d/c TBD; Needs trach supplies, suction, VNA; Follow-up ENT Toño Pacheco MD, PGY1 09/05/22 7:30 AM ENT Team Pager: [phone] * Joey Mckeon, RN - 09/05/2022 5:53 [...] at Bedside Yes Emergency Airway Sign at [facility]? Yes Assessment: Received patient with tracheostomy tube in place, capped, and tolerating cap well. Trach care performed. No incidents overnight. Plan: Continue with capping as tolerated. Christiane A Ona, SPEED OPERATOR * Joey Mckeon RN - 09/04/2022 8:26 PM EDTSummary: Question regarding medication dilution Page Sent Successfully Page Confirmation To Pager number: [phone] From Submitter: Joey Mckeon Urgency Level: Call Me Callback Number: [phone] The following Message was sent: [Call Me] - Callback:[phone] Question regarding medication dilution Ativan - Joey Mckeon The following status was returned from the cocktail server: Page for [phone] successfully sent to [...] discuss plan with provider Cheryl Pacheco MD #[id number] . Current Nutrition Regimen: Active Orders Diet NPO diet (Give Meds) Frequency: Effective Midnight Number of Occurrences: Until Specified TPN Medication Recent History (Show up to 3 orders; newest on the left. Changes between the two most recent orders are indicated.) Start date and time 09/04/2022 1800 09/01/2022 1800 08/31/2022 1800 TPN Adult [[id number]] TPN Adult [[id number]] TPN Adult [[id number]] Order Status Active Last Dose in Progress [...] 09/04/2022 CALCIUM 8.8 09/04/2022 PHOS 3.8 09/04/2022 [id number] 213 (L) 08/22/2022 No results found for: POCGLU Patient Lines/Drains/Airways Status Active Nutritional LDAs Name Placement date Placement time Site Days PICC Line - Single Lumen 09/02/22 1633 basilic vein (medial side of arm), right 4 Fr 09/02/22 1633 -- 2 Closed/Suction Drain Right;Anterior Neck Bulb 15 Trin[place] 08/21/22 1947 Neck 14 Physical Findings Skin: [...] encounter: 46 kg (101 lb 8 oz). [place] Body Weight (IBW) (kg): 50 Wt Readings [...] 52 y.o. female with a history of S5U6pN0 SCCa of the left lateral tongue s/p [...] 2 Closed/Suction Drain Right;Anterior Neck Bulb 15 Trin[place] 08/21/22 1947 Neck 14 Trach Airway 08/28/22 1616 08/28/22 1616 -- 7 Prophylaxis: Lovenox, SCD, activity per PRS Disposition: Floor status, Attempt Cardiopulmonary Resuscitation - Inpatient Discharge: Plan for d/c TBD; Needs trach supplies, suction, VNA; Follow-up ENT Toño Pacheco MD, PGY1 09/04/22 8:06 AM ENT Team Pager: [phone] * Anabell Nelson MD - 09/04/2022 7:49 AM EDT Plastic Surgery Inpatient Progress Note (Team Pager #[phone] Date of surgery: 08/21/22 CC/Procedure(s): Oromandibular reconstruction [...] Nelson MD Plastic Surgery Inpatient Team Pager #[phone] * Joey Mckeon RN - 09/04/2022 5:09 [...] The following status was returned from the cocktail server: Page for [id number] successfully sent to [...] AM EDT Size: Adult Trach: 4.0 Type: Shiley Style: UN (Disposable) Securement: Foam Trach Ties [...] well t/o the shift no observed issues. SPEED OPERATOR will continue care. * Yue Arellano MD - 09/03/2022 9:11 AM EDT OTOLARYNGOLOGY - HEAD & NECK SURGERY DAILY PROGRESS NOTE Name: Theresa Hollis Age/Sex: 52 y.o. female Attending: Roberth Lee MD Hospital Day: 14 13 Days Post-Op Patient ID/Reason for Admission Theresa Hollis is a 52 y.o. female with a history of C6K9hU7 SCCa of the left lateral tongue s/p [...] 1 Closed/Suction Drain Right;Anterior Neck Bulb 15 [place] 08/21/22 1947 Neck 13 Trach Airway 08/28/22 1616 08/28/22 1616 -- 6 Prophylaxis: Lovenox, SCD, activity per PRS Disposition: Floor status, Attempt Cardiopulmonary Resuscitation - Inpatient Discharge: Plan for d/c TBD; Needs trach supplies, suction, VNA; Follow-up ENT Yue Arellano MD, PGY4 09/03/22 9:11 AM ENT Team Pager: [phone] * Anabell Nelson MD - 09/03/2022 8:47 AM EDT Images from the original note were not included. Plastic Surgery Inpatient Progress Note (Team Pager #[phone] Date of surgery: 08/21/22 CC/Procedure(s): Oromandibular reconstruction [...] Nelson MD Plastic Surgery Inpatient Team Pager #[phone] * Joey Reese ICE CUTTER - 09/02/2022 9:26 PM EDT Respiratory Care [...] 52 y.o. female with a history of D7A0vV1 SCCa of the left lateral tongue s/p [...] 3 Closed/Suction Drain Right;Anterior Neck Bulb 15 [place] 08/21/22 194 Neck 12 Trach Airway 08/28/22161508/28/221615 -- 5 Prophylaxis: Lovenox, SCD, activity per PRS Disposition: Floor status, Attempt Cardiopulmonary Resuscitation - Inpatient Discharge: Plan for d/c TBD; Needs trach supplies, suction, VNA; Follow-up ENT Yue Arellano MD, PGY4 09/02/22 8:50 AM ENT Team Pager: [phone] * Anabell Nelson MD - 09/02/2022 6:43 AM EDT Images from the original note were not included. Plastic Surgery Inpatient Progress Note (Team Pager #[phone] Date of surgery: 08/21/22 CC/Procedure(s): Oromandibular reconstruction [...] Nelson MD Plastic Surgery Inpatient Team Pager #[phone] * Tanja Wilson, PT - 09/01/2022 4:37 PM EDT Physical Therapy Intervention Note Treatment Number PT: 4 Patient profile: Theresa Hollis is a 52 y.o. female with a history of V4W1rH5 SCCa of the left lateral tongue s/p [...] Harinder in a single level home in [facility]. Has ~ 15 [place] without rails. Normallyindependent without device. 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 Total Minutes, Physical Therapy: 27 ([id number]) Billing Code: TEF, HELLEN Meza PTA Pager: [phone] Physical Therapy Inpatient Rehabilitation Department * Azul Mason RD - 09/01/2022 3:00 PM EDT Images [...] discuss plan with provider Cheryl Pacheco MD #[id number] . Current Nutrition Regimen: Active Orders Diet Puree diet Frequency: Effective Now Number of Occurrences: Until Specified TPN Medication Recent History (Show up to 3 orders; newest on the left. Changes between the two most recent orders are indicated.) Start date and time 09/01/2022 1800 08/31/2022 1800 TPN Adult [[id number]] TPN Adult [[id number]] Order Status Active Last Dose in Progress [...] 09/01/2022 CALCIUM 9.5 09/01/2022 PHOS 2.8 09/01/2022 [id number] 213 (L) 08/22/2022 No results found for: POCGLU Patient Lines/Drains/Airways Status Active Nutritional LDAs Name Placement date Placement time Site Days Peripheral IV Line - Single Lumen 08/30/222147 basilic vein (medial side of arm), left 22 gauge;1 in length 08/30/222147 -- 2 Closed/Suction Drain Right;Anterior Neck Bulb 15 Trin[place] 08/21/22 1947 Neck 11 Physical Findings Skin: [...] encounter: 46 kg (101 lb 8 oz). [place] Body Weight (IBW) (kg): 50 Wt Readings [...] 52 y.o. female with a history of F7E2dE0 SCCa of the left lateral tongue s/p [...] 2 Closed/Suction Drain Right;Anterior Neck Bulb 15 Trin[place] 08/21/22 194 Neck 11 Trach Airway 08/28/22161508/28/221615 -- 4 Prophylaxis: Lovenox, SCD, activity per PRS Disposition: Floor status, Attempt Cardiopulmonary Resuscitation - Inpatient Discharge: Plan for d/c TBD; Needs trach supplies, suction, VNA; Follow-up ENT Toño Pacheco MD, PGY1 09/01/22 9:30 AM ENT Team Pager: [phone] * Jazmyn Fletcher, CERTIFIED PROSTHETIST - 09/01/2022 7:43 AM EDT Speech-Language Pathology Consult note: Total Treatment Time: 0 min. No charge Total Timed Code Treatment: 0 min. Subjective: Chart reviewed this AM 0730 Pt made NPO by team for PEG placement on 09/01/22. Per secure chat by ENT Team and RN notes, FEES on hold as of today. CERTIFIED PROSTHETIST recommends to consider FEES if Pt here till 09/04/22 - to evaluate swallow function and possiblePO as tolerated or with by swallow exercises. Recommend OP CERTIFIED PROSTHETIST visit to further evaluate Pt's swallow function and provide therapy as needed. CERTIFIED PROSTHETIST will continue to follow throughout the day as medical status permits. Please page me with questions or concerns. Thank you! Jazmyn Fletcher MS, [facility]-CERTIFIED PROSTHETIST Inpatient Rehabilitation Medicine Pager #[phone] * Akhil Martinez PA - 09/01/2022 6:54 AM EDT Plastic Surgery Inpatient Progress Note (Team Pager #[phone] Date of surgery: 08/21/22 CC/Procedure(s): Oromandibular reconstruction [...] lovenox Remainder of care per primary team CALYL Owens Plastic Surgery Inpatient Team Pager #[phone] * Hollie Vang RN - 08/31/2022 4:40 [...] as needed. Hollie Vang MSN-Ed, RN ACM nurse charge rn Office of Care Management Pager #[phone] * Kimberly Jones SPEED OPERATOR - 08/31/2022 4:12 PM EDT Respiratory Care [...] assess readiness for decannulation * Jazmyn Fletcher, CERTIFIED PROSTHETIST - 08/31/2022 11:00 AM EDT Speech Therapy Note Patient Profile: Theresa Hollis is a 52 y.o. female admitted on 08/21/2022 history of J8M9eE4 SCCaof the left lateral tongue s/p hemiglossectomy, left neck dissection 1-5, skin graft, allograft (10/31/06) followed by adjuvant chemo XRT now presenting with ORN of the mandible. She underwent tracheostomy, neck exploration, mandible excision, and fibula free flap reconstruction 08/21 with ENT and PRS. Per ENT notes. Trach in place by ENT, Pt tolerating capping as of now. Team plans to decannulated today. CERTIFIED PROSTHETIST therapy summary: CERTIFIED PROSTHETIST following since 08/29/2022 for her swallow function [...] when she was willing to work with CERTIFIED PROSTHETIST, at bedside this wholesession. Communication done verbally [...] keep working on her PO intake as CERTIFIED PROSTHETIST left. Esophageal Phase: Appears to be WFL, [...] Pt was seen today for a follow-up CERTIFIED PROSTHETIST visit targeting her swallow function. present at [...] due to limited abduction in left VF. CERTIFIED PROSTHETIST continues to recommend puree and thin liquids and ice chips as tolerated with gradual advancement throughout the day. Place food on right side on mouth to avoid anterior loss from mouth during POintake. Follow strategy mentioned above mainly hold breath and swallow followed by cough& swallow to clear penetrated/aspirated material after every bite. CERTIFIED PROSTHETIST recommends FEES to observe Pt's swallow function and rule out silent aspiration/penetration with PO intake. Plans to conduct this study when ENT scopes Pt next time - possibly on 09/01/22. Pt would benefit from skilled CERTIFIED PROSTHETIST services to maximize swallow function to achieve [...] PO intake. Pt will benefit from continued CERTIFIED PROSTHETIST services while hospitalized Speech Therapy Goals: ONGOING unless otherwise stated Pt will tolerate least restrictive diet without evidence of dysphagia / aspiration. Pt / caregiver will be independent with aspiration precautions, diet modifications, and safe swallowing strategies. Pt will participate in FEES to evaluate swallow function and rule out silent aspiration. Plan: Therapy Frequency (CERTIFIED PROSTHETIST Eval): 3-5 times/wk Pt./family are in agreement with treatment plan. Total Minutes (Speech Language Pathology): 22 Thank you for this consult with this patient. Please feel free to page me with any questions or concerns. Jazmyn Fletcher MS, CERTIFIED PROSTHETIST-CF Pager #[phone] Speech Language Pathology Inpatient Rehabilitation Medicine * Derrick Abel Margareth, RD - 08/31/2022 10:58 AM EDT Images [...] discuss plan with provider Cheryl Pacheco MD #[id number] . Current Nutrition Regimen: Active Orders Diet Puree diet Frequency: Effective Now Number of Occurrences: Until Specified Order Comments: OK for ice chips as well TPN Medication Recent History (Show up to 3 orders; newest on the left.) Start date and time 08/31/2022 1800 TPN Adult [[id number]] Order Status Active Frequency Continuous (1800) Additives [...] 08/31/2022 CALCIUM 9.4 08/31/2022 PHOS 3.7 08/31/2022 [id number] 213 (L) 08/22/2022 No results found for: POCGLU Patient Lines/Drains/Airways Status Active Nutritional LDAs Name Placement date Placement time Site Days Peripheral IV Line - Single Lumen 08/30/222147 basilic vein (medial side of arm), left 22 gauge;1 in length 08/30/222147 -- 1 Closed/Suction Drain Right;Anterior Neck Bulb 15 Trin[place]adian 08/21/22 1947 Neck 10 Physical Findings Skin: [...] encounter: 46 kg (101 lb 8 oz). [place] Body Weight (IBW) (kg): 50 Wt Readings [...] 52 y.o. female with a history of A2R8jF1 SCCa of the left lateral tongue s/p [...] on swallowing and will continue to see CERTIFIED PROSTHETIST daily. Will continue PPN for now. Wound [...] Meds) Bolus TF. Encourage PO. Working w CERTIFIED PROSTHETIST. Infectious Disease: WBC wnl, Unasyn x 5 days; Peridex Hematology: Hemoglobin wnl Endocrine: Home levothyroxine Consults: PRS Lines: Patient Lines/Drains/Airways Status Active Tubes/Lines/Drains Name Placement date Placement time Site Days Peripheral IV Line - Single Lumen 08/30/222147 basilic vein (medial side of arm), left 22 gauge;1 in length 08/30/222147 -- 1 Closed/Suction Drain Right;Anterior Neck Bulb 15 [place]adian 08/21/22 1947 Neck 10 Trach Airway 08/28/22 1616 08/28/22 1616 -- 3 Prophylaxis: Lovenox, SCD, activity per PRS Disposition: Floor status, Attempt Cardiopulmonary Resuscitation - Inpatient Discharge: Plan for d/c TBD; Needs trach supplies, suction, VNA; Follow-up ENT Toño Pacheco MD, PGY1 08/31/22 9:57 AM ENT Team Pager: [phone] * Akhil Martinez PA - 08/31/2022 7:06 AM EDT Images from the original note were not included. Plastic Surgery Inpatient Progress Note (Team Pager #[phone] Date of surgery: 08/21/22 CC/Procedure(s): Oromandibular reconstruction with right fibula free flap, skin graft from R thigh to right leg and submental opening Surgeon: Luz Elena Subjective/IE: LASHON. DHT removed yesterday, potential G tube pending repeat CERTIFIED PROSTHETIST eval. Tolerating trach capping. Objective: BP 128/74 [...] change 09/02. Antibiotics: Unasyn x5d Diet: Appreciate CERTIFIED PROSTHETIST recommendations Activity: WBAT RLE. May wear boot as needed for comfort. DVT prophylaxis: SCD left leg, lovenox Remainder of care per primary team CALLY Owens Plastic Surgery Inpatient Team Pager #[phone] * Kimberly Mendoza RCP - 08/31/2022 5:39 [...] Bedside Yes 08/30/222044 Emergency Airway Sign at [facility]? Yes 08/30/222044 Trach Care Performed: Site [...] Toño Pacheco MD ENT PGY-1 Personal Pager #[phone] ENT Team Pager #[phone] * Azul Mason RD - 08/30/2022 3:08 [...] y.o. female admitted on 08/21/2022 history of J9F7sJ7 SCCaof the left lateral tongue s/p hemiglossectomy, left neck dissection 1-5, skin graft, allograft (10/31/06) followed by adjuvant chemo XRT now presenting with ORN of the mandible. She underwent tracheostomy, neck exploration, mandible excision, and fibula free flap reconstruction 08/21 with ENT and PRS. Per ENT notes. Trach in place by ENT, Pt tolerating capping as of now. Team plans to decannulated today. CERTIFIED PROSTHETIST therapy summary: CERTIFIED PROSTHETIST following since 08/29/2022 for her swallow function w/ ENT's recommendation Not to advance beyond purees Interval History: ENT plans to decannulated this day along with DHT removal. BIT provided consult on 08/29/22. Subjective: Pt seen once in morning when she came back from imaging and requested to rest and give her a break. When CERTIFIED PROSTHETIST re-visited this noon, Pt was willing to work with CERTIFIED PROSTHETIST, at bedside thiswhole session. Also reported Benadryl [...] Pt was seen today for a follow-up CERTIFIED PROSTHETIST visit targeting her swallow function. present at bedside. Oral laryngeal mechanism reveals mildly improved lingual function, dry secretions present which were cleaned using 4 wet swabs at the beginning of session. Pt continues to tolerate small 3mm size icechips placed on right side of oral cavity. No thin liquids attempted. CERTIFIED PROSTHETIST continues to recommend ice chips 3mm in size with gradual advancement as tolerated throughout the day with advancing to 1-2mlthin liquids by tsp. Place food on right side on mouth to avoid anterior loss from mouth during PO intake. Pt continues to need motivation and encouragement for continuing PO intake for diet advancement. Pt would benefit from skilled CERTIFIED PROSTHETIST services to maximize swallow function to achieve [...] PO intake. Pt will benefit from continued CERTIFIED PROSTHETIST services while hospitalized Speech Therapy Goals: ONGOING unless otherwise stated Pt will tolerate least restrictive diet without evidence of dysphagia / aspiration. Pt / caregiver will be independent with aspiration precautions, diet modifications, and safe swallowing strategies. Plan: Therapy Frequency (CERTIFIED PROSTHETIST Eval): 3-5 times/wk Pt./family are in agreement with treatment plan. Total Minutes (Speech Language Pathology): 24 Thank you for this consult with this patient. Please feel free to page me with any questions or concerns. Jazmyn Fletcher MS, CERTIFIED PROSTHETIST- Pager #[phone] Speech Language Pathology Inpatient Rehabilitation Medicine * Kimberly Jones, [facility] - 08/30/2022 11:22 AM EDT Respiratory Care [...] remains capped. Pt on RA * Toño Pachceo MD - 08/30/2022 9:55 AM EDT OTOLARYNGOLOGY - HEAD & NECK SURGERY DAILY PROGRESS NOTE Name: Theresa Hollis Age/Sex: 52 y.o. female Attending: Roberth Lee MD Hospital Day: 10 9 Days Post-Op Patient ID/Reason for Admission Theresa Hollis is a 52 y.o. female with a history of R1V1pI5 SCCa of the left lateral tongue s/p [...] Intake/Output Summary (Last 24 hours) at 08/30/2022 0901 Last data filed at 08/30/2022 0536 Gross [...] tolerating trach capping. Continues to work with CERTIFIED PROSTHETIST, will plan to remove NGT later today. [...] Days Peripheral IV Line - Single Lumen 08/24/2299 cephalic vein (lateral side of arm), left 20 gauge 08/24/2299 -- 6 Closed/Suction Drain Right;Anterior Neck Bulb 15 Trinidadian 06/05/23 1947 Neck 9 Naso/Oral Tube 08/22/221814 nasogastric left nostril 08/22/22 181 left nostril 8 Trach Airway 08/28/22 1616 08/28/22 1616 -- 2 Prophylaxis: Lovenox, SCD, activity per PRS Disposition: Floor status, Attempt Cardiopulmonary Resuscitation - Inpatient Discharge: Plan for d/c as early as Sunday; Needs trach supplies, suction, VNA; Follow-up ENT Toño Pacheco MD, PGY1 08/30/22 9:55 AM ENT Team Pager: [phone] * Kelly Laguna MD - 08/30/2022 7:04 AM EDT Plastic Surgery Inpatient Progress Note (Team Pager #[phone] Date of surgery: 08/21/22 CC/Procedure(s): Oromandibular reconstruction with right fibula free flap, skin graft from R thigh to right leg and submental opening Surgeon: Luz Elena Subjective/IE: LASHON. Patient was seen by CERTIFIED PROSTHETIST yesterday and was advanced to sips and [...] 08/21. Recovering well overall. Currently working with CERTIFIED PROSTHETIST. Plan: Q4h flap checks Dressings/Drains: Strip and record drain output. Allevyn off 09/04. RLE stsg changed yesterday 08/29.baci and xeroform, QOD. Antibiotics: Unasyn x5d Diet: Continue TF as tolerated, CERTIFIED PROSTHETIST ok'd for sips and chips Activity: TTWB in CAM boot when out of bed DVT prophylaxis: SCD left leg, lovenox Remainder of care per primary team CALLY Baker Plastic Surgery Inpatient Team Pager #[phone] Attending: Plan discussed and agree as documented. Kelly Laguna MD Plastic Surgery * Analisa Johnson, [facility] - 08/30/2022 4:10 AM EDT RT Tracheostomy [...] Bedside Yes 08/29/222048 Emergency Airway Sign at [facility]? Yes 08/29/222048 Secretions: Small amounts, thick, [...] anticipation of this plan, please refer to: [address] [address] or *for tube feed and supplies Also [facility] (Resp Supplies) Central Intake: [place]: [place]: -They cover all [place] *For trach supplies, suction and humidification. BRAD: 08/31/22 Hollie Vang MSN-Ed, RN ACM nurse charge rn Office of Care Management Pager #[phone] * Ashok Reardon, OT - 08/29/2022 2:57 PM EDT Occupational Therapy Treatment Note Treatment Number OT: 2 Patient Dx: Theresa Hollis is a 52 y.o. 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 SIGN HANGER met with patient, spouse, Stephan and mother, Becca. 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 SIGN HANGER made a referral to Aura Nation MSW ENT outpatient psychotherapist social worker who confirms she will follow up with this referral at patient's next follow up appointment. Patient given Aura Nation's information as well. A BIT consult has also been ordered by doctor for added emotional/therapeutic support. Overall, patient states, I will be much better once I get home. SIGN HANGER to continue to provide psychosocial supports for [...] home health TANJA WILSON, PT Pager # [phone] In-Pt Rehab Medicine Orders received via chat that pt is now WBAT on RLE with cont use of boot for comfort. Have passed on to RN. Resume PT for gait training and for stair management to prepare for home DC when medically stable. * Abril Mustafa - 08/29/2022 11:20 AM EDT Food Services Manager Encounter Note Patient Name: Theresa Hollis : [id number] MR#: [id number] Admit Date: 08/21/2022 6:10 AM Hospital Day 8 days Narrative: Visited patient on unit rounds as follow up to consult request visit yesterday. The patient was sitting up in her chair and had a visitor. Assessment: The patient said that she had a twisting operator visit yesterday. She said she was fine today and did not need another visit. Intervention and Outcome: Told her I was glad she was better and wished her well going forward. She expressed thanks. Follow-up: No follow up required as currently assessed. Time in Direct Care: 5 minutes. Abril Mustafa 08/29/2022 * Jazmyn Fletcher SLP - 08/29/2022 10:12 AM EDT Speech Therapy Bedside Swallow Evaluation Patient Profile: Theresa Hollis is a 52 y.o. 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 She underwent tracheostomy, neck exploration, mandible excision, and fibula free flap reconstruction 08/21 with ENT and PRS. Per ENT notes. Trach in place by ENT, Pt tolerating capping as of now. CERTIFIED PROSTHETIST consulted on 08/29/2022 to evaluate her swallow function and Not to advance beyond purees Prior Level of Swallow Function: Pt reports PO intake with soft solids and thin liquids. Subjective: Pt encountered at bed and later requested to position in chair for comfort. Family present in room during the time of evaluation. Is willing to work with CERTIFIED PROSTHETIST and as session progressed comments this is frustrating communicates using white board throughout the session wit CERTIFIED PROSTHETIST. Objective: Pt seen for evaluation today. Pain: In leg and around jaw - reports can work with CERTIFIED PROSTHETIST Respiratory Status: Room air Vision: WFL per [...] results and recommendations Assessment: Pt seen for CERTIFIED PROSTHETIST swallow evaluation to assess her swallow function at this time. Pt encountered at bedside and is presently communicating using Recoup board. Family present at bedside. Oral/laryngeal mechanism [...] pour into pharynxdue to h/o partial glossectomy. CERTIFIED PROSTHETIST recommends ice chips 3mm in size with gradual advancement as tolerated throughout the day. Place food on right side on mouth to avoid anterior loss from mouth during PO intake. Pt appeared briefly frustrated during the session and CERTIFIED PROSTHETIST provided support and encouragement duringthis time. Pt may benefit from BIT consult for mental/emotional support during the course of hospitalization. CERTIFIED PROSTHETIST will continue to evaluate and advance diet [...] PO intake. Pt will benefit from continued CERTIFIED PROSTHETIST services while hospitalized Speech Therapy Goals: (To be met by discharge) Pt will tolerate least restrictive diet without evidence of dysphagia / aspiration. Pt / caregiver will be independent with aspiration precautions, diet modifications, and safe swallowing strategies. Plan: Therapy Frequency (CERTIFIED PROSTHETIST Eval): 3-5 times/wk Pt./family are in agreement with treatment plan. Total Minutes (Speech Language Pathology): 42 Thank you for this consult with this patient. Please feel free to page me with any questions or concerns. Jazmyn Fletcher MS, CERTIFIED PROSTHETIST-CF Pager #[phone] Speech Language Pathology Inpatient Rehabilitation Medicine * Toño Pacheco MD - 08/29/2022 7:39 AM EDT OTOLARYNGOLOGY - HEAD & NECK SURGERY DAILY PROGRESS NOTE Name: Theresa Hollis Age/Sex: 52 y.o. female Attending: Roberth Lee MD Hospital Day: 9 8 Days Post-Op Patient ID/Reason for Admission Theresa Hollis is a 52 y.o. female with a history of F9X2tV2 SCCa of the left lateral tongue s/p [...] 5 Closed/Suction Drain Right;Anterior Neck Bulb 15 Trinidadian 08/21/22 194 Neck 8 Naso/Oral Tube 08/22/22 1815 nasogastric left nostril 08/22/22 1815 left nostril 7 Trach Airway 08/28/22 1616 08/28/22 1616 -- 1 Prophylaxis: Lovenox, SCD, activity per PRS Disposition: Floor status, Attempt Cardiopulmonary Resuscitation - Inpatient Discharge: Plan for d/c as early as Sunday; Needs trach supplies, suction, VNA; Follow-up ENT Toño Pacheco MD, PGY1 08/29/22 7:40 AM ENT Team Pager: [phone] * Dimitry Marin PA - 08/29/2022 7:12 AM EDT Images from the original note were not included. Plastic Surgery Inpatient Progress Note (Team Pager #[phone] Date of surgery: 08/21/22 CC/Procedure(s): Oromandibular reconstruction [...] Unasyn x5d Diet: Continue TF as tolerated, CERTIFIED PROSTHETIST okay for today Activity: TTWB in CAM boot when out of bed DVT prophylaxis: SCD left leg, lovenox May start PT Remainder of care per primary team CALLY Baker Plastic Surgery Inpatient Team Pager #[phone] * Sandra Bergman, [facility] - 08/29/2022 4:47 AM EDT RT Tracheostomy [...] who have questions please contact the health senior care provider that requested your imaging first. Electronically signed by: LILY CELESTE MD, [facility] ([phone]), at 08/22/2022 5:39 PM Airway: Trach Airway [...] Yes 08/29/22 0400 Emergency Airway Sign at [facility]? Yes 08/29/22 0400 Trach Care Performed: [...] 52 y.o. 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 She underwent tracheostomy, neck exploration, mandible excision, and fibula free flap reconstruction 08/21 with ENT and PRS. Total duration of encounter: 7 days Social History: Patient lives with Harinder in a single level home in [facility]. Has ~ 15 IRENE without rails. Normallyindependent without device. 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 BETTYE EGAN, PT Pager: [phone] Physical Therapy Inpatient Rehabilitation Department * Chitra [...] was able to discuss plan with provider hCeryl Pacheco MD #[id number] . Current Nutrition Regimen: Active Orders Diet NPO diet (Give Meds) Frequency: Effective Now Number of Occurrences: Until Specified Assessment: Lab Results Component Value Date NA 137 08/26/2022 K 3.8 08/26/2022 CL 102 08/26/2022 CO2 25 08/26/2022 BUN 16 08/26/2022 CREATININE 0.51 (L) 08/26/2022 ESTGFR 113 08/26/2022 MAGNESIUM 0.87 08/26/2022 CALCIUM 8.5 08/26/2022 PHOS 2.6 08/26/2022 [id number] 213 (L) 08/22/2022 No results found for: POCGLU Patient Lines/Drains/Airways Status Active Nutritional LDAs Name Placement date Placement time Site Days Naso/Oral Tube 08/22/22 181 nasogastric left nostril 08/22/22 181 left nostril 6 Peripheral IV Line - Single Lumen 08/21/22 0838 18 gauge 08/21/22 0838 -- 7 Peripheral IV Line - Single Lumen 08/24/22 0100 cephalic vein (lateral side of arm), left 20 gauge 08/24/22 0100 -- 4 Closed/Suction Drain Right;Anterior Neck Bulb 15 Trinidadian 08/21/22 1947 Neck 7 Physical Findings Skin: [...] oral powder, magnesium sulfate OR magnesium sulfate, bxqruh-rnieyzis-jgvxgsw DR AND sodium bicarbonate, sodium chloride 0.9 % (flush), lidocaine, ondansetron, prochlorperazine Anthropometrics: Admit Weight: 43.91 kg Estimated body mass index is 18.56 kg/m?? as calculated from the following: Height as of this encounter: 157.5 cm (5' 2). Weight as of this encounter: 46 kg (101 lb 8 oz). [place] Body Weight (IBW) (kg): 50 Wt Readings [...] Malnutrition Diagnosis: Not enough data to assess (Fransisca JPJONAH J Parenteral Enteral Nutr. 2011; 36(3): 273-83) Nutrition to continue to follow up while inpatient Chitra Howell RDN Clinical Nutrition * Jessica Cazares - 08/28/2022 2:41 PM EDT Food Services Manager Encounter Note Patient Name: Theresa Hollis : [id number] MR#: [id number] Admit Date: 08/21/2022 6:10 AM Hospital Day 7 days Narrative: This telegraphic typewriter operator chief responded to a spiritual care consult. Assessment: Patient desired to have conversation with twisting operator alone, she utilized the white board for clear communication, reflecting on and processing the emotions of her experience. Intervention and Outcome: This telegraphic typewriter operator chief provided spiritual care through reflective listening, emotional validation and words ofblessing. Follow-up: Patient voiced appreciation for visit and let this telegraphic typewriter operator chief know she would reach out to Rns to page if a twisting operator visit was desired again. Time in [...] 52 y.o. female with a history of L7A9sQ6 SCCa of the left lateral tongue s/p [...] VSS - Would like to speak with BIT/twisting operator regarding adjustment to illness Vitals Last [...] is tolerating trach capping intermittently. Will consult BIT/twisting operator this AM to provide support. Swallow [...] 4 Closed/Suction Drain Right;Anterior Neck Bulb 15 Trinidadian 08/21/22 194 Neck 7 Naso/Oral Tube 08/22/22 1815 nasogastric left nostril 08/22/22 181 left nostril 6 Trach Airway 08/25/22 1616 08/25/22 1616 -- 3 Prophylaxis: Lovenox, SCD, activity per PRS Disposition: Floor status, Attempt Cardiopulmonary Resuscitation - Inpatient Discharge: Plan for d/c as early as Sunday; Needs trach supplies, suction, VNA; Follow-up ENT Toño Pacheco MD, PGY1 08/28/22 8:17 AM ENT Team Pager: [phone] * Skylar Cloud, LEATHER SEASONER - 08/28/2022 7:53 AM EDT Images from the original note were not included. Plastic Surgery Inpatient Progress Note (Team Pager #[phone] Date of surgery: 08/21/22 CC/Procedure(s): Oromandibular reconstruction [...] PT Remainder of care per primary team CERTIFIED PROSTHETIST - Hold for now (per GLF) HOld on GT for now (per GLF) Skylar Cloud APRN Plastic Surgery Inpatient Team Pager #[phone] * Skylar Cloud APRN - 08/28/2022 6:53 AM EDT Images from the original note were not included. Plastic Surgery Inpatient Progress Note (Team Pager #[phone] Date of surgery: 08/21/22 CC/Procedure(s): Oromandibular reconstruction [...] PT Remainder of care per primary team CERTIFIED PROSTHETIST pending discussion with Dr. Luz Elena Cloud APRN Plastic Surgery Inpatient Team Pager #[phone] * Sandra Bergman, [facility] - 08/28/2022 5:27 AM EDT RT Tracheostomy [...] who have questions please contact the health senior care provider that requested your imaging first. Electronically signed by: LILY CELESTE MD, [facility] ([phone]), at 08/22/2022 5:39 PM Airway: Trach Airway [...] Yes 08/28/22 0334 Emergency Airway Sign at [facility]? Yes 08/28/22 0334 Trach Care Performed: [...] Bedside Yes 08/27/22830 Emergency Airway Sign at [facility]? Yes 08/27/22830 Trach Care Performed: Trach Airway 08/25/22 1616-Tube [...] 52 y.o. female with a history of D5H3nQ9 SCCa of the left lateral tongue s/p [...] 3 Closed/Suction Drain Right;Anterior Neck Bulb 15 Trinidadian 08/21/22 1947 Neck 6 Naso/Oral Tube 08/22/22 1815 nasogastric left nostril 08/22/22 1815 left nostril 5 Trach Airway 08/25/22 1616 08/25/22 1616 -- 2 Prophylaxis: Lovenox, SCD, activity per PRS Disposition: Floor status, Attempt Cardiopulmonary Resuscitation - Inpatient Discharge: Plan for d/c as early as Sunday; Needs trach supplies, suction, VNA; Follow-up ENT Ilda Estrada MD, PGY3 08/27/22 12:44 PM ENT Team Pager: [phone] * Sayra Dumont MD - 08/27/2022 7:54 AM EDT Plastic Surgery Inpatient Progress Note (Team Pager #[phone] Date of surgery: 08/21/22 CC/Procedure(s): Oromandibular reconstruction [...] Dumont MD Plastic Surgery Inpatient Team Pager #[phone] * Estefany Larson, [facility] - 08/27/2022 5:32 AM EDT Respiratory Care [...] 075 Tube Securement foam trach ties 08/26/22 0759 Trach Cap Status uncapped/unplugged 08/26/22 0759 Tube Care/Reposition site care done;inner cannula changed 08/26/22 0759 Manual Resuscitator at Bedside Yes 08/26/22 0759 Spare Trach At Bedside Yes 08/26/22 075 Trach ToGo kit at Bedside Yes 08/26/22 075 Emergency Airway Sign at [facility]? Yes 08/26/22 0759 Trach Care Performed: Trach [...] Plastic Surgery Inpatient Progress Note (Team Pager #[phone] Date of surgery: 08/21/22 CC/Procedure(s): Oromandibular reconstruction [...] Dumont MD Plastic Surgery Inpatient Team Pager #[phone] Attending: Pt seen and examined with Dr [...] 52 y.o. female with a history of Q7J2bN4 SCCa of the left lateral tongue s/p [...] 2 Closed/Suction Drain Right;Anterior Neck Bulb 15 Trinidadian 08/21/22 1947 Neck 5 Naso/Oral Tube 08/22/22 1815 nasogastric left nostril 08/22/22 1815 left nostril 4 Trach Airway 08/25/22 1616 08/25/22 1616 -- 1 Prophylaxis: Lovenox, SCD, activity per PRS Disposition: Floor status, Attempt Cardiopulmonary Resuscitation - Inpatient Discharge: Plan for d/c TBD; Needs trach supplies, suction, VNA; Follow-up ENT Ilda Estrada MD, PGY3 08/26/22 11:34 AM ENT Team Pager: [phone] * Sarita Spence, [facility] - 08/26/2022 4:25 AM EDT RT Tracheostomy Note Oxygen Delivery: Interface: Heated trach collar Flow: 40 L/min FiO2: 21 % Skin Assessment: Barrier Used: None. Trach changed Inhaled Medications: None Airway: Trach Airway 08/25/22 1616 (Active) Tracheal Airway Size Verfication 6 mm 08/26/22256 Appearance clean;dry 08/26/22256 Tube Securement foam trach ties 08/26/22 025 Trach Cap Status uncapped/unplugged 08/26/22 025 Manual Resuscitator at Bedside Yes 08/26/22 025 Spare Trach At Bedside Yes 08/26/22 025 Trach ToGo kit at Bedside Yes 08/26/22 0257 Emergency Airway Sign at [facility]? Yes 08/26/22 0257 Trach Care Performed: Trach Airway 08/25/22 1616-Tube Care/Reposition: ( changed inner cannula with trach exchange at 1600) [REMOVED] Trach Airway 08/21/221947-Tube Care/Reposition: inner cannula [...] Yes 08/25/22 1330 Emergency Airway Sign at [facility]? Yes 08/25/22 1330 Trach Care Performed: Trach Airway 08/21/221947-Tube Care/Reposition: inner cannula changed, site care done Secretions: Thin/yellow Assessment: Received patient with 6CN in placed, team replaced with 6UN. Plan: Continue to monitor and support. Rina Vang RCP * Ilda Estrada MD - 08/25/2022 4:14 PM EDT Pre-Procedure Dx: H/O tracheostomy (Z98.890) Post-procedure Dx: same Procedure: Tracheostomy Tube Change ([id number]) Pre-procedure checklist: Correct Patient Correct time Current [...] will continue to see daily * Azul Mason, RD - 08/25/2022 1:09 PM EDT Nutrition [...] discuss plan with provider Cheryl Pacheco MD #[id number] . Current Nutrition Regimen: Active Orders Diet NPO diet (Give Meds) Frequency: Effective Now Number of Occurrences: Until Specified Assessment: Lab Results Component Value Date NA 136 08/25/2022 K 3.4 (L) 08/25/2022 CL 100 08/25/2022 CO2 23 08/25/2022 BUN 9 08/25/2022 CREATININE 0.50 (L) 08/25/2022 ESTGFR 113 08/25/2022 MAGNESIUM 0.82 08/25/2022 CALCIUM 8.4 (L) 08/25/2022 PHOS 2.8 08/25/2022 [id number] 213 (L) 08/22/2022 No results found for: [...] 0100 -- 1 NPWT 08/21/22 182 leg 08/21/221824 -- 4 Closed/Suction Drain Right;Anterior Neck Bulb 15 Trinidadian 08/21/22 1947 Neck 4 Physical Findings Skin: [...] sat monitor, IV sites, NGT Other Sites: [place] Last Bowel Movement: 08/25/22 Intake/Output Summary (Last [...] sulfate, HYDROmorphone OR HYDROmorphone OR [DISCONTINUED] HYDROmorphone, wvqnni-ghbidnot-nidnggc DR AND sodium bicarbonate, sodium chloride 0.9 % (flush), lidocaine, ondansetron, prochlorperazine Anthropometrics: Admit Weight: 43.91 kg Estimated body mass index is 18.83 kg/m?? as calculated from the following: Height as of this encounter: 157.5 cm (5' 2). Weight as of this encounter: 46.7 kg (102 lb 15.3 oz). [place] Body Weight (IBW) (kg): 50 Wt Readings [...] MS, RD, LDN Clinical Dietitian Pager # [phone] * Toño Pacheco MD - 08/25/2022 8:57 AM EDT OTOLARYNGOLOGY - HEAD & NECK SURGERY DAILY PROGRESS NOTE Name: Theresa Hollis Age/Sex: 52 y.o. female Attending: Roberth Lee MD Hospital Day: 5 4 Days Post-Op Patient ID/Reason for Admission Theresa Hollis is a 52 y.o. female with a history of O7G2yA6 SCCa of the left lateral tongue s/p [...] 1 Closed/Suction Drain Right;Anterior Neck Bulb 15 Trinidadian 08/21/221946 Neck 4 Naso/Oral Tube 08/22/221814 nasogastric left nostril 08/22/221814 left nostril 3 Trach Airway 08/21/22194708/21/221947 -- 4 Prophylaxis: Lovenox, SCD, activity per PRS Disposition: Floor status, Attempt Cardiopulmonary Resuscitation - Inpatient Discharge: Plan for d/c TBD; Needs trach supplies, suction, VNA; Follow-up ENT Toño Pacheco MD, PGY1 08/25/22 8:57 AM ENT Team Pager: [phone] * Akhil Martinez PA - 08/25/2022 7:48 AM EDT Plastic Surgery Inpatient Progress Note (Team Pager #[phone] Date of surgery: 08/21/22 CC/Procedure(s): Oromandibular reconstruction [...] CALLY Owens Plastic Surgery Inpatient Team Pager #[phone] * Cherelle Resendiz, [facility] - 08/25/2022 6:14 AM EDT RT Tracheostomy [...] Bedside Yes 08/24/222004 Emergency Airway Sign at [facility]? Yes 08/24/222004 Trach Care Performed: Trach [...] CALCIUM 8.2 (L) 08/24/2022 PHOS 2.5 08/24/2022 [id number] 213 (L) 08/22/2022 No results found for: [...] 3 Closed/Suction Drain Right;Anterior Neck Bulb 15 Trinidadian 08/21/22 1947 Neck 3 Oxygen Therapy / [...] sulfate, HYDROmorphone OR HYDROmorphone OR [DISCONTINUED] HYDROmorphone, evkxkv-miyrkvee-shpwytm DR AND sodium bicarbonate, sodium chloride 0.9 % (flush), lidocaine, ondansetron, prochlorperazine Anthropometrics: Admit Weight: 43.91 kg Estimated body mass index is 18.83 kg/m?? as calculated from the following: Height as of this encounter: 157.5 cm (5' 2). Weight as of this encounter: 46.7 kg (102 lb 15.3 oz). [place] Body Weight (IBW) (kg): 50 Wt Readings [...] MS, RD, LDN Clinical Dietitian Pager # [phone] * Viola Kathleen, PT - 08/24/2022 12:24 PM EDT Physical Therapy Intervention Note Treatment Number PT: 2 Patient profile: Theresa Hollis is a 52 y.o. 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 She underwent tracheostomy, neck exploration, mandible excision, and fibula free flap reconstruction 08/21 with ENT and PRS. Total duration of encounter: 3 days Social History: Patient lives with Harinder in a single level home in [facility]. Has ~ 15 IRENE without rails. Normallyindependent without device. 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 Time IN / OUT: 6016-4875 Total Minutes, Physical Therapy: 47 Billing Code: x3 TEF Thank you for this consult. Viola Kathleen, PT Pager: [phone] Physical Therapy Inpatient Rehabilitation Department * Toño Pacheco MD - 08/24/2022 9:14 AM EDT OTOLARYNGOLOGY - HEAD & NECK SURGERY DAILY PROGRESS NOTE Name: Theresa Hollis Age/Sex: 52 y.o. female Attending: Roberth Lee MD Hospital Day: 4 3 Days Post-Op Patient ID/Reason for Admission Theresa Hollis is a 52 y.o. female with a history of Q0Y8aI3 SCCa of the left lateral tongue s/p [...] 1 Closed/Suction Drain Right;Anterior Neck Bulb 15 Trinidadian 08/21/221946 Neck 3 Naso/Oral Tube 08/22/221814 nasogastric left nostril 08/22/221814 left nostril 2 Trach Airway 08/21/22194708/21/221947 -- 3 Prophylaxis: Lovenox, SCD, activity per PRS Disposition: Floor status, Attempt Cardiopulmonary Resuscitation - Inpatient Discharge: Plan for d/c TBD; Needs trach supplies, suction, VNA; Follow-up ENT Toño Pacheco MD, PGY1 08/24/22 9:15 AM ENT Team Pager: [phone] * Melvi Storm RN - 08/24/2022 8:01 [...] Plastic Surgery Inpatient Progress Note (Team Pager #[phone] Date of surgery: 08/21/22 CC/Procedure(s): Oromandibular reconstruction [...] MENDOZA APRN Plastic Surgery Inpatient Team Pager #[phone] * Sultana Pascual, [facility] - 08/24/2022 4:31 AM EDT Respiratory Therapy [...] trach. Emergency equipment & airway sign @ [facility]. Pt transferred to step down unit at [...] who have questions please contact the health senior care provider that requested your imaging first. Electronically signed by: LILY CELESTE MD, [facility] ([phone]), at 08/22/2022 5:39 PM Airway: Trach Airway 08/21/221947 (Active) Tracheal Airway Size Verfication 6 mm 08/23/22744 Appearance clean;crusty 08/23/22744 Tube Securement sutures 08/23/22744 Trach Cap Status uncapped/unplugged 08/23/22744 Tube Care/Reposition dressing changed;inner cannula changed;site care done 08/23/22744 Manual Resuscitator at Bedside Yes 08/23/2245 Spare Trach At Bedside Yes 08/23/22744 Trach ToGo kit at Bedside Yes 08/23/22744 Emergency Airway Sign at [facility]? Yes 08/23/22744 Trach Care Performed: Trach Airway 08/21/221947-Tube Care/Reposition: dressing changed, inner cannula changed, site care done Assessment: Patient received with sutured [address], on HTC 40L/21%. Flow weaned to 35L. No other changes made. Trach care completed, TTGK at bedside, emergency airway sign at [facility]. Plan: Care for airway, provide humidification. RT Carmelina * Viola Kathleen, PT - 08/23/2022 2:21 PM EDT Physical Therapy Evaluation Patient profile: Theresa Hollis is a 52 y.o. 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 s/p [...] Alfred Vital MD at [facility] PRO DEBRIDEMENT BONE MUSCLE &/FASCIA 20 SQ CM/< Bilateral 11/17/2019 DEBRIDEMENT SKIN, SUBCU, MUSCLE, BONE, HEAD/NECK (WRVU 4.1) performed by Keyur Ng MD at [facility] PRO INJECTION PLATELET PLASMA WITH IMAGE, HARVEST/PREP 11/17/2019 INJECTION(S), PLATELET RICH PLASMA, ANY SITE, INCLUDING IMAGE GUIDANCE, HARVESTING AND PREPARATION WHEN PERFORMED performed by Keyur Ng MD at [facility] PRO REMOVAL ERUPTED TOOTH WITH ELEVATION OF MUCOPERIOSTEAL FLAP N/A 05/06/2014 SURGICAL EXTRACTIONS REQUIRING ELEVATION OF MUCOPERIOSTEAL FLAP AND REMOVAL OF BONE OR SECTION OF TOOTH performed by Alfred Vital MD at [facility] PRO REMOVAL ERUPTED TOOTH WITH ELEVATION OF MUCOPERIOSTEAL FLAP Bilateral 11/17/2019 SURGICAL EXTRACTIONS REQUIRING ELEVATION OF MUCOPERIOSTEAL FLAP AND REMOVAL OF BONE OR SECTION OF TOOTH (WRVU 1.09) performed by Keyur Ng MD at [facility] OR SKIN GRAFT Social History: Patient lives with Harinder in a single level home in [facility]. Has ~ 15 IRENE without rails. Normallyindependent without device. 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 Time IN / OUT: 0872-6247 Total Minutes, Physical Therapy: 35 Billing Code: x1 mod eval Thank you for this consult. Viola Kathleen, PT Pager: [phone] Physical Therapy Inpatient Rehabilitation Department * Toño Pacheoc MD - 08/23/2022 10:47 AM EDT OTOLARYNGOLOGY - HEAD & NECK SURGERY DAILY PROGRESS NOTE Name: Theresa Hollis Age/Sex: 52 y.o. female Attending: Roberth Lee MD Hospital Day: 3 2 Days Post-Op Patient ID/Reason for Admission Theresa Hollis is a 52 y.o. female with a history of E5R4dQ0 SCCa of the left lateral tongue s/p [...] 2 Closed/Suction Drain Right;Anterior Neck Bulb 15 Trinidadian 08/21/221946 Neck 2 Naso/Oral Tube 08/22/221814 nasogastric left nostril 08/22/221814 left nostril 1 Trach Airway 08/21/22194708/21/221947 -- 2 Prophylaxis: Lovenox, SCD, activity per PRS Disposition: Step down status, Attempt Cardiopulmonary Resuscitation - Inpatient Discharge: Plan for d/c TBD; Needs trach supplies, suction, VNA; Follow-up ENT Toño Pacheco MD, PGY1 08/23/22 10:48 AM ENT Team Pager: [phone] * Kelly Laguna MD - 08/23/2022 8:01 AM EDT Plastic Surgery Inpatient Progress Note (Team Pager #[phone] Date of surgery: 08/21/22 CC/Procedure(s): Oromandibular reconstruction [...] CALLY Baker Plastic Surgery Inpatient Team Pager #[phone] Attending: Pt seen and examined. Introral repair [...] Eaton, PGY-2 Plastic & Reconstructive Surgery Pager: [phone] * Lenora Jorge RD - 08/22/2022 1:57 [...] 08/22/2022 CALCIUM 8.8 08/22/2022 PHOS 2.7 08/22/2022 [id number] (L) 08/22/2022 Lab Results Component Value [...] 1 Closed/Suction Drain Right;Anterior Neck Bulb 15 Trinidadian 08/21/22 1947 Neck 1 Urethral Catheter 08/21/22 [...] Other Sites: farrukh, idb Last Bowel Movement: (WEED CONTROL INSPECTOR) Intake/Output Summary (Last 24 hours) at 08/22/2022 [...] encounter: 46.9 kg (103 lb 6.3 oz). [place] Body Weight (IBW) (kg): 50 Wt Readings [...] CNSC, LD Clinical Nutrition * Lesly Canela, SPEED OPERATOR - 08/22/2022 12:04 PM EDT Respiratory Therapy [...] Plastic Surgery Inpatient Progress Note (Team Pager #[phone]) Date of surgery: 08/21/22 CC/Procedure(s): Oromandibular reconstruction [...] primary team Plastic Surgery Inpatient Team Pager #[phone] Attending: Pt seen and examined. I agree [...] 52 y.o. female with a history of P2W8rB5 SCCa of the left lateral tongue s/p [...] 1 Closed/Suction Drain Right;Anterior Neck Bulb 15 Trinidadian 08/21/22 194 Neck 1 Urethral Catheter 08/21/22 0845 14 08/21/22 0845 -- 1 Trach Airway 08/21/228 08/21/22 194 -- 1 Prophylaxis: OK for lovenox tonight, SCD, activity per PRS Disposition: Critical Care status, Attempt Cardiopulmonary Resuscitation - Inpatient Discharge: Plan for d/c TBD; Needs trach supplies, suction, VNA; Follow-up ENT Toño Pacheco MD, PGY1 08/22/22 8:10 AM ENT Team Pager: [phone] * Jatinder Myers MD - 08/22/2022 12:30 [...] doppler signal present. Cap refill <2 sec. [place]. WWP Assessment/Plan: Theresa Hollis is a 52 y.o. female s/p mandible reconstruction with free fibula flap currently in stable condition and recovering well. - pain well controlled - hemodynamically stable - UOP adequate Jatinder Myers MD Pager: [phone] * Jatinder Myers MD - 08/22/2022 12:29 AM EDT OTOLARYNGOLOGY - HEAD & NECK SURGERY POST OP CHECK Name: Theresa Hollis Age/Sex: 52 y.o. female Attending: Roberth Lee MD Hospital Day: 2 1 Day Post-Op Patient ID/Reason for Admission Theresa Hollis is a 52 y.o. female with a history of O1K0oQ5 SCCa of the left lateral tongue s/p [...] PGY1 08/22/22 12:29 AM ENT Team Pager: [phone] * Jennifer Wong RT - 08/21/2022 8:30 [...] barrier technique was used throughout. A 4 Trinidadian glide catheter was placed as a nasoenteric [...] with an 8mm balloon catheter. A 16 Trinidadian balloonretained gastrostomy tube was placed. The retention [...] of the left lateral tongue; need [facility] nutrition IR workflow: Procedure request [...] ALKPHOS 42 12/06/2016 Allergies: Tylenol [acetaminophen], Allergenic ysxeukm-qoqy-duiyj, Peanut, Benzocaine, and Birch Imaging: No relevant [...] 60 tablet 5 fluocinolone and shower cap (Minford-Smoothe/FS Scalp Oil) 0.01 % Oil Apply topically [...] Date GLOSSECTOMY Right partial LYMPHADENECTOMY SND 1-5 [place] PREP FACE/ORAL PROST MANDIBULAR N/A 08/21/2022 IMPRESSION AND CUSTOM PREPARATION,MANDIBULAR RESECTION PROSTHESIS (WRVU 22.85) performed by [facility] PRO ADJ TISS XFER HEAD, FAC, HAND <10SQCM 08/21/2022 ADJ.TISSUE TRANSFER, REARRANGEMENT, 10SQ.CM OR LESS, NECK (WRVU 8.6) performed by Kelly Laguna MDat [facility] PRO BONE BIOPSY,TROCAR/NEEDLE SUPERF Left 05/06/2014 BIOPSY BONE, TROCAR OR NEEDLE, SUPERFICIAL, MANDIBLE performed by Alfred Vital MD at [facility] PRO BONE-SKIN GRAFT, MICROVASCULAR 08/21/2022 @FLAP, FREE OSTEOCUTANEOUS W MICROVASC, FIBULA (WRVU 45.43) performed by Kelly Laguna MD at [facility] PRO CERVICAL LYMPHADECTOMY MODIFIED RADICAL NECK DISSECTION Right 08/21/2022 @CERVICAL LYMPHADENECTOMY (MODIFIED RADICAL NECK DISSECTION)-JANA , ROBOTIC (WRVU 23.95) performed by Roberth Lee MD at [facility] PRO DEBRIDEMENT BONE MUSCLE &/FASCIA 20 SQ CM/< Bilateral 11/17/2019 DEBRIDEMENT SKIN, SUBCU, MUSCLE, BONE, HEAD/NECK (WRVU 4.1) performed by Keyur Ng MD at [facility] MAIN OR PRO EXCISION OF BONE, LOWER JAW Bilateral 08/21/2022 EXCISION OF BONE, MANDIBLE (WRVU 10.03) performed by Roberth Lee MD at [facility] OR [facility] INJECTION PLATELET PLASMA WITH IMAGE, HARVEST/PREP 11/17/2019 INJECTION(S), PLATELET RICH PLASMA, ANY SITE, INCLUDING IMAGE GUIDANCE, HARVESTING AND PREPARATION WHEN PERFORMED performed by Keyur Ng MD at [facility] RECONSTR JAW, FULL ENDO IMPLNT N/A 08/21/2022 RECONSTRUCT MANDIBLE OR MAXILLA, ENDOSTEAL IMPLANT, COMPLETE (WRVU 18.77) performed by Keyur Ng MD at [facility] OR [facility] RECONSTR MANDIBLE, BONE PLATE 08/21/2022 RECONSTRUCT MANDIBLE, EXTRAORAL, W/ TRANSOSTEAL BONE PLATE (WRVU 13.62) performed by Kelly Laguna MD at [facility] OR [facility] REMOVAL ERUPTED TOOTH WITH ELEVATION OF MUCOPERIOSTEAL FLAP N/A 05/06/2014 SURGICAL EXTRACTIONS REQUIRING ELEVATION OF MUCOPERIOSTEAL FLAP AND REMOVAL OF BONE OR SECTION OF TOOTH performed by Alfred Vital MD at [facility] OR [facility] REMOVAL ERUPTED TOOTH WITH ELEVATION OF MUCOPERIOSTEAL FLAP Bilateral 11/17/2019 SURGICAL EXTRACTIONS REQUIRING ELEVATION OF MUCOPERIOSTEAL FLAP AND REMOVAL OF BONE OR SECTION OF TOOTH (WRVU 1.09) performed by Keyur Ng MD at [facility] OR [facility] SPLIT GRFT TRUNK, ARM, LEG <100SQCM N/A 08/21/2022 SPLIT THICK SKIN GRAFT,100 SQ CM OR LESS, LEGS (WRVU 9.9) performed by Kelly Laguna MD at [facility] OR [facility] TRACHEOSTOMY, PLANNED N/A 08/21/2022 TRACHEOSTOMY, PLANNED (WRVU 5.56) performed by Roberth Lee MD at [facility] OR SKIN GRAFT Social History [...] Alfred Vital MD at [facility] PRO DEBRIDEMENT BONE MUSCLE &/FASCIA 20 SQ CM/< Bilateral 11/17/2019 DEBRIDEMENT SKIN, SUBCU, MUSCLE, BONE, HEAD/NECK (WRVU 4.1) performed by Keyur Ng MD at [facility] PRO INJECTION PLATELET PLASMA WITH IMAGE, HARVEST/PREP 11/17/2019 INJECTION(S), PLATELET RICH PLASMA, ANY SITE, INCLUDING IMAGE GUIDANCE, HARVESTING AND PREPARATION WHEN PERFORMED performed by Keyur Ng MD at [facility] PRO REMOVAL ERUPTED TOOTH WITH ELEVATION OF MUCOPERIOSTEAL FLAP N/A 05/06/2014 SURGICAL EXTRACTIONS REQUIRING ELEVATION OF MUCOPERIOSTEAL FLAP AND REMOVAL OF BONE OR SECTION OF TOOTH performed by Alfred Vital MD at [facility] PRO REMOVAL ERUPTED TOOTH WITH ELEVATION OF MUCOPERIOSTEAL FLAP Bilateral 11/17/2019 SURGICAL EXTRACTIONS REQUIRING ELEVATION OF MUCOPERIOSTEAL FLAP AND REMOVAL OF BONE OR SECTION OF TOOTH (WRVU 1.09) performed by Keyur Ng MD at [facility] OR SKIN GRAFT Prior To Admission Medications: Medications Prior to Admission Medication Sig Dispense Refill Last Dose levothyroxine (Synthroid) 100 mcg tablet TAKE ONE TABLET BY MOUTH EVERY DAY 90 tablet 3 08/21/2022 amoxicillin-clavulanate (Augmentin) 500-125 mg Tablet Take 1 tablet by mouth 2 times daily. 60 tablet 5 08/18/2022 fluocinolone and shower cap (Minford-Smoothe/FS Scalp Oil) 0.01 % Oil Apply topically [...] Allergies Allergen Reactions Tylenol [Acetaminophen] Anaphylaxis Allergenic Xnldqra-Hoel-Fqcdy Itching Applesauce Peanut Itching Benzocaine Made pt [...] Sclera non-icteric, PERRL, FARRUKH drain in place. [place] in place and with flap on underside [...] to ICU, Critical Care Red 2 Dona Mao, 08/21/2022 Associated attestation - Akhil Fuentes MD [...] PGY3 08/21/22 7:36 AM ENT Team Pager: [phone] * Kelly Laguna MD - 08/21/2022 7:30 [...] Alfred Vital MD at [facility] PRO DEBRIDEMENT BONE MUSCLE &/FASCIA 20 SQ CM/< Bilateral 11/17/2019 DEBRIDEMENT SKIN, SUBCU, MUSCLE, BONE, HEAD/NECK (WRVU 4.1) performed by Keyur Ng MD at [facility] PRO INJECTION PLATELET PLASMA WITH IMAGE, HARVEST/PREP 11/17/2019 INJECTION(S), PLATELET RICH PLASMA, ANY SITE, INCLUDING IMAGE GUIDANCE, HARVESTING AND PREPARATION WHEN PERFORMED performed by Keyur Ng MD at [facility] PRO REMOVAL ERUPTED TOOTH WITH ELEVATION OF MUCOPERIOSTEAL FLAP N/A 05/06/2014 SURGICAL EXTRACTIONS REQUIRING ELEVATION OF MUCOPERIOSTEAL FLAP AND REMOVAL OF BONE OR SECTION OF TOOTH performed by Alfred Vital MD at [facility] PRO REMOVAL ERUPTED TOOTH WITH ELEVATION OF MUCOPERIOSTEAL FLAP Bilateral 11/17/2019 SURGICAL EXTRACTIONS REQUIRING ELEVATION OF MUCOPERIOSTEAL FLAP AND REMOVAL OF BONE OR SECTION OF TOOTH (WRVU 1.09) performed by Keyur Ng MD at [facility] OR SKIN GRAFT Family History Problem [...] Allergies Allergen Reactions Tylenol [Acetaminophen] Anaphylaxis Allergenic Yjudmwz-Ywyv-Tetst Itching Applesauce Peanut Itching Benzocaine Made pt [...] Anabell Nelson MD Plastic Surgery Resident Pager# [phone] Patient was seen and examined in the [...] to the planned procedure. 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 Catheter type: PICC Lot number: [id number] Procedure Technique: Skin was prepped with chlorhexidine. [...] Post-procedure Dx: same Procedure: Tracheostomy Tube Change ([id number]) Pre-procedure checklist: Correct Patient Correct time Current [...] Toño Pacheco MD ENT PGY-1 Personal Pager #[phone] ENT Team Pager #[phone] * Meredith Root APRN - 08/22/2022 6:28 PM EDT Feeding tube placement per direct laryngoscopy: Used a Mac 3 blade for direct visualization of esophagus and larynx s/p three attempts today for nasal enteral tube placement today in the ICU. With cap sewer Dr. Berkowitz at bedside, divided doses of 250 mg Propofol and 30mg Rocuronium given while Dilaudid INSURANCE CLAIMS ANALYST and continuous Ketamine infusion 0.18 mg/kg/hr in [...] discharge to home with family support and [place] [facility] for RN, [facility] for tube feed/supplies, and [facility] for SX machine. Needs for Transition of Care: Plan for discharge is: Home w/ Services Outpatient Agency/Support Group Needs: Homecare agency Resp Needs: *SX machine Company: [employer] Status: Hospital Delivery Nutrition Type: Tube Feeds Access: PEG / G Tube Location: Referred to [facility] Coordination Home Health Services: Registered Nurse Agency Referrals & Follow-up Care: Contact information for follow-up Home Health & Hospice, [place] [address] [place] [place] [address] Home Health & Hospice, [place] [address] [place] [address] Transportation: family or friend will provide-via private [...] none Patient is insured through: Primary Insurance: [employer] [place] Payor[place] [employer] [place] / Plan: [facility] [place] [facility] / Product Type: *No Product type* / Secondary Insurance: N/A Prescription Coverage: Yes This plan was formulated with input from patient, (please identify family/friend involved if applicable) and team. All are in agreement with plan. Hollie JONES , RN Pager #[phone] * Plan of Care - Araceli Velasco [...] Moore MD - 09/04/2022 4:17 PM EDT [facility] Acute Care Surgery Consult Note Consult Reason: PEG placement HPI: Theresa Hollis is a 52 y.o. female with a history of B5J5oY6 SCCa of the left lateral tongues/p hemiglossectomy, left neck dissection 1-5, skin graft, allograft (10/31/06) followed by adjuvantchemo XRT now presenting with ORN of the mandible. She underwent tracheostomy, neck exploration, mandible excision, and fibula free flap reconstruction 08/21 with ENT and PRS. Her NGT was removed on 08/30 and initiated on pur??ed diet as per CERTIFIED PROSTHETIST recommendation. However she was having difficulty swallowing [...] 52 y.o. female with a history of R0V0qS0 SCCa of the left lateral tongue s/p [...] Iqbal MD - 09/03/2022 10:34 AM EDT [facility] Acute Care Surgery Consult Note Consultation Requested by: Roberth Lee MD Consult Reason: PEG placement HPI: Theresa Hollis is a 52 y.o. female with a history of F2L7rN7 SCCa of the left lateral tongues/p hemiglossectomy, left neck dissection 1-5, skin graft, allograft (10/31/06) followed by adjuvantchemo XRT now presenting with ORN of the mandible. She underwent tracheostomy, neck exploration, mandible excision, and fibula free flap reconstruction 08/21 with ENT and PRS. Her NGT was removed on 08/30 and initiated on pur??ed diet as per CERTIFIED PROSTHETIST recommendation. However as of this a.m., she [...] 52 y.o. female with a history of N1S9cV2 SCCa of the left lateral tongue s/p [...] Martin. Zion Iqbal MD 09/03/2022 General Surgery [phone] * Consult Note - Anthony Brizuela W - 09/03/2022 7:33 AM EDT Images from the original note were not included. Internal Medicine Initial Consult Note Admit date: Hospital day: Service: Primary Attending Consult Attending 08/21/2022 ENT MD Roberth Powell MD Reason for Consult: Hyponatremia and elevated TSH HPI: Per Dr. Marx's note on 09/02/22: Theresa has a pmh of hypothyroidism (radiation induced), depression, X7S4wE7 SCCa of the left lateraltongue s/p hemiglossectomy, [...] 08/22. On 08/29 she was evaluated by CERTIFIED PROSTHETIST, who recommended a trial of PO intake. [...] her home synthroid has been given between 6677-0380 (initially via NGT, now PO). Today, patient [...] 60 tablet 5 fluocinolone and shower cap (Minford-Smoothe/FS Scalp Oil) 0.01 % Oil Apply topically [...] Allergies Allergen Reactions Tylenol [Acetaminophen] Anaphylaxis Allergenic Omysobg-Qnid-Tbzkt Itching Applesauce Peanut Itching Benzocaine Made pt tongue red and angry. Irritant reaction - allergy testing negative Birch Other (See Comments) Birch pollen: wheezing and throat constriction Past Surgical History Past Surgical History: Procedure Laterality Date GLOSSECTOMY Right partial LYMPHADENECTOMY SND 1-5 [place] PREP FACE/ORAL PROST MANDIBULAR N/A 08/21/2022 IMPRESSION AND CUSTOM PREPARATION,MANDIBULAR RESECTION PROSTHESIS (WRVU 22.85) performed by [facility]ur [facility] PRO ADJ TISS XFER HEAD, FAC, HAND <10SQCM 08/21/2022 ADJ.TISSUE TRANSFER, REARRANGEMENT, 10SQ.CM OR LESS, NECK (WRVU 8.6) performed by Kelly [facility]una MDat [facility] PRO BONE BIOPSY,TROCAR/NEEDLE SUPERF Left 05/06/2014 BIOPSY BONE, TROCAR OR NEEDLE, SUPERFICIAL, MANDIBLE performed by Alfred Vital MD at [facility] PRO BONE-SKIN GRAFT, MICROVASCULAR 08/21/2022 @FLAP, FREE OSTEOCUTANEOUS W MICROVASC, FIBULA (WRVU 45.43) performed by Kelly Laguna MD at [facility] PRO CERVICAL LYMPHADECTOMY MODIFIED RADICAL NECK DISSECTION Right 08/21/2022 @CERVICAL LYMPHADENECTOMY (MODIFIED RADICAL NECK DISSECTION)-JANA , ROBOTIC (WRVU 23.95) performed by Roberth Lee MD at [facility] PRO DEBRIDEMENT BONE MUSCLE &/FASCIA 20 SQ CM/< Bilateral 11/17/2019 DEBRIDEMENT SKIN, SUBCU, MUSCLE, BONE, HEAD/NECK (WRVU 4.1) performed by Keyur Ng MD at [facility] PRO EXCISION OF BONE, LOWER JAW Bilateral 08/21/2022 EXCISION OF BONE, MANDIBLE (WRVU 10.03) performed by Roberth Lee MD at [facility] OR [facility] INJECTION PLATELET PLASMA WITH IMAGE, HARVEST/PREP 11/17/2019 INJECTION(S), PLATELET RICH PLASMA, ANY SITE, INCLUDING IMAGE GUIDANCE, HARVESTING AND PREPARATION WHEN PERFORMED performed by Keyur Ng MD at [facility] RECONSTR JAW, FULL ENDO IMPLNT N/A 08/21/2022 RECONSTRUCT MANDIBLE OR MAXILLA, ENDOSTEAL IMPLANT, COMPLETE (WRVU 18.77) performed by Keyur Ng MD at [facility] OR PRO RECONSTR MANDIBLE, BONE PLATE 08/21/2022 RECONSTRUCT MANDIBLE, EXTRAORAL, W/ TRANSOSTEAL BONE PLATE (WRVU 13.62) performed by Kelly Laguna MD at [facility] OR PRO REMOVAL ERUPTED TOOTH WITH ELEVATION OF MUCOPERIOSTEAL FLAP N/A 05/06/2014 SURGICAL EXTRACTIONS REQUIRING ELEVATION OF MUCOPERIOSTEAL FLAP AND REMOVAL OF BONE OR SECTION OF TOOTH performed by Alfred Vital MD at [facility] OR [facility] REMOVAL ERUPTED TOOTH WITH ELEVATION OF MUCOPERIOSTEAL FLAP Bilateral 11/17/2019 SURGICAL EXTRACTIONS REQUIRING ELEVATION OF MUCOPERIOSTEAL FLAP AND REMOVAL OF BONE OR SECTION OF TOOTH (WRVU 1.09) performed by Keyur Ng MD at [facility] OR PRO SPLIT GRFT TRUNK, ARM, LEG <100SQCM N/A 08/21/2022 SPLIT THICK SKIN GRAFT,100 SQ CM OR LESS, LEGS (WRVU 9.9) performed by Kelly Laguna MD at [facility] OR [facility] TRACHEOSTOMY, PLANNED N/A 08/21/2022 TRACHEOSTOMY, PLANNED (WRVU 5.56) performed by Roberth Lee MD at [facility] SKIN GRAFT Family History: Family [...] who have questions please contact the health senior care provider that requested your imaging first. Electronically signed by: Parish Gomes MD, [facility] ([phone]), at 08/22/2022 11:53 AM XR Abdomen 1 view (Generic) (Exam End: 08/22/2022 3:46 PM) Impression 1. Enteric tube tip and side-port project over the expected location of the right mainstem bronchus. Rosalina Castanon MD discussed [...] who have questions please contact the health senior care provider that requested your imaging first. Electronically signed by: Nicki Castanon MD, [facility] ([phone]), at 08/22/2022 4:14 PM XR Chest One [...] who have questions please contact the health senior care provider that requested your imaging first. Electronically signed by: LILY CELESTE MD, [facility] ([phone]), at 08/22/2022 5:39 PM XR Abdomen 1 [...] who have questions please contact the health senior care provider that requested your imaging first. Electronically signed by: LILY CELESTE MD, [facility] ([phone]), at 08/22/2022 6:52 PM XR Chest One View (Exam End: 08/30/2022 8:39 AM) Impression No acute cardiopulmonary disease. Thank you for letting us participate in the care of this patient. If you are a health care provider and have any questions regarding this report, please contact the number below. For patients who have questions please contact the health senior care provider that requested your imaging first. Electronically signed by: Dar Villanueva MD, [facility] ([phone]), at 08/30/2022 8:43 AM XR PICC Placement [...] who have questions please contact the health senior care provider that requested your imaging first. Electronically signed by: Silvia Lee MD, [facility] ([phone]), at 09/02/2022 5:04 PM Assessment: Theresa is a 52 yo female with a pmh of hypothyroidism (radiation induced), depression, K6J3dT1 SCCa of the left lateral tongue s/p [...] now. Please reach back out to pager #[phone] if another specific questions arises. Anthony Brizuela MD Internal Medicine, PGY3 CRYSTAL Pager # [phone] Associated attestation - Shruit Mckeon MD - 09/03/2022 5:13 PM EDT [...] dose adjustments and had talked with her medical resident about taking levothyroxine 50 mcg a couple [...] (PICC) Teaching Sheet Peripherally inserted central catheters (emae-ac-qqvt) (PICC) are used when you need IV [...] midline catheter? PICC lines are used for [place] [facility] treatments. PICC lines may be used for [...] can be set up via the nurse Foreign Student Adviser to help you. What are possible complications [...] Efficacy, Safety, Use, and Administration of [employer], [employer] 2005 * Consult Note - Loly Blackwood RN - 09/02/2022 2:14 PM EDT Images from the original note were not included. Infiltration/Extravasation Scale Theresa Wyattesteban [id number] N520/N520-A Infiltration appearance: Infiltration harm % for [...] measuring tape and identifier in the photo) LODE MINER CARING FOR THIS PATIENT WILL CONTINUE TO MONITOR AND WILL ASSUME CARE, VASCULAR ACCESS WILL NOT FOLLOW THIS EVENT AT THE SIGNING OF THIS NOTE. * Consult Note - Zion Iqbal MD - 09/02/2022 11:37 AM EDT [facility] Acute Care Surgery Consult Note Consultation Requested by: Roberth Lee MD Consult Reason: PEG placement HPI: Theresa Hollis is a 52 y.o. female with a history of J0F5hC9 SCCa of the left lateral tongues/p hemiglossectomy, left neck dissection -, skin graft, allograft (10/31/06) followed by adjuvantchemo XRT now presenting with ORN of the mandible. She underwent tracheostomy, neck exploration, mandible excision, and fibula free flap reconstruction 08/21 with ENT and PRS. Her NGT was removed on 08/30 and initiated on pur??ed diet as per CERTIFIED PROSTHETIST recommendation. However as of this a.m., she [...] 52 y.o. female with a history of U6L0gY1 SCCa of the left lateral tongue s/p [...] Martin. Zion Iqbal MD 09/02/2022 General Surgery p.[phone] * Plan of Care - Jada Chávez [...] a pmh of hypothyroidism (radiation induced), depression, A4P4dW0 SCCa of the left lateraltongue s/p hemiglossectomy, [...] 08/22. On 08/29 she was evaluated by CERTIFIED PROSTHETIST, who recommended a trial of PO intake. [...] her home synthroid has been given between 6951-6175 (initially via NGT, now PO). Today, patient [...] 60 tablet 5 fluocinolone and shower cap (Minford-Smoothe/FS Scalp Oil) 0.01 % Oil Apply topically [...] Allergies Allergen Reactions Tylenol [Acetaminophen] Anaphylaxis Allergenic Hbpuxiq-Fsng-Ywdjo Itching Applesauce Peanut Itching Benzocaine Made pt tongue red and angry. Irritant reaction - allergy testing negative Birch Other (See Comments) Birch pollen: wheezing and throat constriction Past Surgical History Past Surgical History: Procedure Laterality Date GLOSSECTOMY Right partial LYMPHADENECTOMY SND 1-5 WV PREP FACE/ORAL PROST MANDIBULAR N/A 08/21/2022 IMPRESSION AND CUSTOM PREPARATION,MANDIBULAR RESECTION PROSTHESIS (WRVU 22.85) performed by [facility] PRO ADJ TISS XFER HEAD, FAC, HAND <10SQCM 08/21/2022 ADJ.TISSUE TRANSFER, REARRANGEMENT, 10SQ.CM OR LESS, NECK (WRVU 8.6) performed by Kelly Laguna MDat [facility] PRO BONE BIOPSY,TROCAR/NEEDLE SUPERF Left 05/06/2014 BIOPSY BONE, TROCAR OR NEEDLE, SUPERFICIAL, MANDIBLE performed by Alfred Vital MD at [facility] PRO BONE-SKIN GRAFT, MICROVASCULAR 08/21/2022 @FLAP, FREE OSTEOCUTANEOUS W MICROVASC, FIBULA (WRVU 45.43) performed by Kelly Laguna MD at [facility] PRO CERVICAL LYMPHADECTOMY MODIFIED RADICAL NECK DISSECTION Right 08/21/2022 @CERVICAL LYMPHADENECTOMY (MODIFIED RADICAL NECK DISSECTION)-JANA , ROBOTIC (WRVU 23.95) performed by Roberth Lee MD at [facility] PRO DEBRIDEMENT BONE MUSCLE &/FASCIA 20 SQ CM/< Bilateral 11/17/2019 DEBRIDEMENT SKIN, SUBCU, MUSCLE, BONE, HEAD/NECK (WRVU 4.1) performed by Keyur Ng MD at [facility] PRO EXCISION OF BONE, LOWER JAW Bilateral 08/21/2022 EXCISION OF BONE, MANDIBLE (WRVU 10.03) performed by Roberth Lee MD at [facility] PRO INJECTION PLATELET PLASMA WITH IMAGE, HARVEST/PREP 11/17/2019 INJECTION(S), PLATELET RICH PLASMA, ANY SITE, INCLUDING IMAGE GUIDANCE, HARVESTING AND PREPARATION WHEN PERFORMED performed by Keyur Ng MD at [facility] PRO RECONSTR JAW, FULL ENDO IMPLNT N/A 08/21/2022 RECONSTRUCT MANDIBLE OR MAXILLA, ENDOSTEAL IMPLANT, COMPLETE (WRVU 18.77) performed by Keyur Ng MD at [facility] PRO RECONSTR MANDIBLE, BONE PLATE 08/21/2022 RECONSTRUCT MANDIBLE, EXTRAORAL, W/ TRANSOSTEAL BONE PLATE (WRVU 13.62) performed by Kelly Laguna MD at [facility] PRO REMOVAL ERUPTED TOOTH WITH ELEVATION OF MUCOPERIOSTEAL FLAP N/A 05/06/2014 SURGICAL EXTRACTIONS REQUIRING ELEVATION OF MUCOPERIOSTEAL FLAP AND REMOVAL OF BONE OR SECTION OF TOOTH performed by Alfred Vital MD at [facility] PRO REMOVAL ERUPTED TOOTH WITH ELEVATION OF MUCOPERIOSTEAL FLAP Bilateral 11/17/2019 SURGICAL EXTRACTIONS REQUIRING ELEVATION OF MUCOPERIOSTEAL FLAP AND REMOVAL OF BONE OR SECTION OF TOOTH (WRVU 1.09) performed by Keyur Ng MD at [facility] PRO SPLIT GRFT TRUNK, ARM, LEG <100SQCM N/A 08/21/2022 SPLIT THICK SKIN GRAFT,100 SQ CM OR LESS, LEGS (WRVU 9.9) performed by Kelly Laguna MD at [facility] PRO TRACHEOSTOMY, PLANNED N/A 08/21/2022 TRACHEOSTOMY, PLANNED (WRVU 5.56) performed by Roberth Lee MD at [facility] OR SKIN GRAFT Family History: Family History [...] who have questions please contact the health senior care provider that requested your imaging first. Electronically signed by: Parish Gomes MD, [facility] ([phone]), at 08/22/2022 11:53 AM XR Abdomen 1 [...] who have questions please contact the health senior care provider that requested your imaging first. Electronically signed by: Nicki Castanon MD, [facility] ([phone]), at 08/22/2022 4:14 PM XR Chest One [...] who have questions please contact the health senior care provider that requested your imaging first. Electronically signed by: LILY CELESTE MD, [facility] ([phone]), at 08/22/2022 5:39 PM XR Abdomen 1 [...] who have questions please contact the health senior care provider that requested your imaging first. Electronically signed by: LILY CELESTE MD, [facility] ([phone]), at 08/22/2022 6:52 PM XR Chest One View (Exam End: 08/30/2022 8:39 AM) Impression No acute cardiopulmonary disease. Thank you for letting us participate in the care of this patient. If you are a health care provider and have any questions regarding this report, please contact the number below. For patients who have questions please contact the health senior care provider that requested your imaging first. Electronically signed by: Dar Villanueva MD, [facility] ([phone]), at 08/30/2022 8:43 AM Assessment: Theresa is a 52 yo female with a pmh of hypothyroidism (radiation induced), depression, H5D4sY4 SCCa of the left lateral tongue s/p [...] discussed with medicine consult attending, Dr. Francois. [facility] medicine will follow labs.Please reach back out to pager #[phone] if another specific questions arises. Lenora Santa MD Internal Medicine, PGY3 [place] Pager # [phone] Associated attestation - Jorge Alberto Francois DO - 09/01/2022 10:34 PM EDT [facility] Medicine Attending Attestation: Patient seen and [...] of two midnights or is on the [facility] inpatient only procedure list (status C) due to: Acute hyponatremia Jorge Alberto Powell AlessandroDO Pager [phone] 09/01/2022 10:31 PM * Plan [...] [place] MD - 08/31/2022 4:28 PM EDT [facility] Acute Care Surgery Consult Note Consultation Requested by: Roberth Lee MD Consult Reason: PEG placement HPI: Theresa Hollis is a 52 y.o. female with a history of A3Q3kQ8 SCCa of the left lateral tongues/p hemiglossectomy, left neck dissection 1-5, skin graft, allograft (10/31/06) followed by adjuvantchemo XRT now presenting with ORN of the mandible. She underwent tracheostomy, neck exploration, mandible excision, and fibula free flap reconstruction 08/21 with ENT and PRS. Her NGT was removed on 08/30 and initiated on pur??ed diet as per CERTIFIED PROSTHETIST recommendation. However as of this a.m., she [...] Date GLOSSECTOMY Right partial LYMPHADENECTOMY SND 1-5 WV PREP FACE/ORAL PROST MANDIBULAR N/A 08/21/2022 IMPRESSION AND CUSTOM PREPARATION,MANDIBULAR RESECTION PROSTHESIS (WRVU 22.85) performed by Keyur [facility] MD [facility] PRO ADJ TISS XFER HEAD, FAC, HAND <10SQCM 08/21/2022 ADJ.TISSUE TRANSFER, REARRANGEMENT, 10SQ.CM OR LESS, NECK (WRVU 8.6) performed by [facility]at [facility] PRO BONE BIOPSY,TROCAR/NEEDLE SUPERF Left 05/06/2014 BIOPSY BONE, TROCAR OR NEEDLE, SUPERFICIAL, MANDIBLE [facility] BONE-SKIN GRAFT, MICROVASCULAR 08/21/2022 @FLAP, FREE OSTEOCUTANEOUS W MICROVASC, FIBULA (WRVU 45.43) performed by Kelly Laguna MD at [facility] OR PRO CERVICAL LYMPHADECTOMY MODIFIED RADICAL NECK DISSECTION Right 08/21/2022 @CERVICAL LYMPHADENECTOMY (MODIFIED RADICAL NECK DISSECTION)-JANA , ROBOTIC (WRVU 23.95) performed by Roberth Lee MD at [facility] OR [facility] DEBRIDEMENT BONE MUSCLE &/FASCIA 20 SQ CM/< Bilateral 11/17/2019 DEBRIDEMENT SKIN, SUBCU, MUSCLE, BONE, HEAD/NECK (WRVU 4.1) performed by Keyur Ng MD at [facility] OR [facility] EXCISION OF BONE, LOWER JAW Bilateral 08/21/2022 EXCISION OF BONE, MANDIBLE (WRVU 10.03) performed by Roberth Lee MD at [facility] OR [facility] INJECTION PLATELET PLASMA WITH IMAGE, HARVEST/PREP 11/17/2019 INJECTION(S), PLATELET RICH PLASMA, ANY SITE, INCLUDING IMAGE GUIDANCE, HARVESTING AND PREPARATION WHEN PERFORMED performed by Keyur Ng MD at [facility] OR [facility] RECONSTR JAW, FULL ENDO IMPLNT N/A 08/21/2022 RECONSTRUCT MANDIBLE OR MAXILLA, ENDOSTEAL IMPLANT, COMPLETE (WRVU 18.77) performed by Keyur Ng MD at [facility] OR [facility] RECONSTR MANDIBLE, BONE PLATE 08/21/2022 RECONSTRUCT MANDIBLE, EXTRAORAL, W/ TRANSOSTEAL BONE PLATE (WRVU 13.62) performed by Kelly Laguna MD at [facility] OR PRO REMOVAL ERUPTED TOOTH WITH ELEVATION OF MUCOPERIOSTEAL FLAP N/A 05/06/2014 SURGICAL EXTRACTIONS REQUIRING ELEVATION OF MUCOPERIOSTEAL FLAP AND REMOVAL OF BONE OR SECTION OF TOOTH performed by Alfred Vital MD at [facility] OR [facility] REMOVAL ERUPTED TOOTH WITH ELEVATION OF MUCOPERIOSTEAL FLAP Bilateral 11/17/2019 SURGICAL EXTRACTIONS REQUIRING ELEVATION OF MUCOPERIOSTEAL FLAP AND REMOVAL OF BONE OR SECTION OF TOOTH (WRVU 1.09) performed by Keyur Ng MD at [facility] PRO SPLIT GRFT TRUNK, ARM, LEG <100SQCM N/A 08/21/2022 SPLIT THICK SKIN GRAFT,100 SQ CM OR LESS, LEGS (WRVU 9.9) performed by Kelly Laguna MD at [facility] PRO TRACHEOSTOMY, PLANNED N/A 08/21/2022 TRACHEOSTOMY, PLANNED (WRVU 5.56) performed by Roberth Lee MD at [facility] SKIN GRAFT MEDICATIONS: No current facility-administered medications on file prior to encounter. Current Outpatient Medications on File Prior to Encounter Medication Sig Dispense Refill amoxicillin-clavulanate (Augmentin) 500-125 mg Tablet Take 1 tablet by mouth 2 times daily. 60 tablet 5 fluocinolone and shower cap (Minford-Smoothe/FS Scalp Oil) 0.01 % Oil Apply topically [...] Allergies Allergen Reactions Tylenol [Acetaminophen] Anaphylaxis Allergenic Jtqjhnn-Twpl-Wmleq Itching Applesauce Peanut Itching Benzocaine Made pt [...] 52 y.o. female with a history of P8L9lR2 SCCa of the left lateral tongue s/p [...] [place]. Zion Iqbal MD 08/31/2022 General Surgery p.[phone] Attending Addendum I have reviewed the history [...] Optimal Comfort and Wellbeing 08/30/2022 0246 by Oilvia Rodriguez RN Outcome: Ongoing (Interventions Implemented as Appropriate) Page Sent Successfully Page Confirmation To Pager number: [phone] From Submitter: Olivia Rodriguez Urgency Level: FYI Callback Number: [phone] The following Message was sent: [FYI] - Callback:[phone] [address] S. Pt is still having trouble sleeping, no sleep at all - Olivia Rodriguez The following status was returned from the cocktail server: Page for [phone] successfully sent to [phone] having status of Available. * Plan of Care - Oilvia Rodriguez RN - 08/29/2022 6:53 AM EDT [...] Denton LCBolivar - 08/28/2022 2:40 PM EDT MAXINE (Behavioral Intervention Team) [facility] met briefly with this patient. Patient wrote on her white board that she had just met with Jessica from [facility]Food Services [facility] and they were able to identify [...] by patient and/or team. Brittanie Denton MA, [facility] Mental [facility] Services - BIT (Behavioral Intervention Team) Dept. of Psychiatry - Inpatient Psych. Services Pager: [phone] * Plan of Care - Bridgett Bhatti [...] can talk with to give her support, psychotherapist social worker and twisting operator consult suggested and pt is open [...] as documented. * Initial Assessments - Ladi Jean OT - 08/25/2022 1:28 PM EDT Occupational Therapy Evaluation Patient Profile: Theresa Hollis is a 52 y.o. female admitted on 08/21/2022 with a history of X2S7rJ6 SCCa of the left lateral tongue s/p [...] Harinder in a single level home in [facility]. Has ~ 15 IRENE without rails. Normallyindependent without device. 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 Ladi Jean, OTR Pager [phone] Occupational Therapy Rehabilitation Department * Plan of Care - Bettye Friedman RN - 08/24/2022 6:48 PM EDT OUTCOME EVALUATION NOTE: OUTCOME SUMMARY: Patient is AOx4 bue 5/5 strength ble 4/5 strength Patient is s/p neck exploration, tracheostomy, mandible excision, and fibula free flap reconstruction, 3 Days Post-Op. Trache size 6 and dht to L nare patent c iainle. PLAN MOVING FORWARD: Snf or rehab INDIVIDUALIZED [...] pt. 1725 Pt transferred with RT to [facility] with meds, chart, trach to go kit, [...] improved with addition of multi-modal approach including INSURANCE CLAIMS ANALYST - see MAR for details. NG tube [...] surrogate would be surrogate decision maker per [place] surrogate decision making law. (Only good for 180 days) Any patient receiving care in [place] must abide by [place] law. The hierarchy for surrogate decision making [...] (i) The agent with financial power of legal services professional or a conservator appointed in accordance with [...] DME: none Home Address confirmed as: [address] [facility] [address] Social & Family Supports: All names listed below confirmed with patient as current and correct Extended Emergency Contact Information Primary Emergency Contact: STEPHAN HOLLIS Address: [address] [place] [address] [facility] Relation: Spouse Current Care [...] Specific Information: denies Health/Prescription Coverage: Primary Insurance: [employer] Payor: [employer] [place] / Plan[place] / Product Type: *No Product type* / Secondary Insurance: N/A ; Prescription Coverage: Yes Preferred Pharmacy: [id number] - [place], [place] - [address] [place] [address] [place] [address] Status: Patient is a : No Primary Care Provider confirmed: Tita Méndez, LEATHER SEASONER [phone] Patient/Caregiver Goals of Treatment: return home when medically ready for discharge. Potential Needs for Transition of Care: home health care Agency Referrals: I have met with the patient to: discuss discharge planning needs. provide the [facility], Office of Care Management letter from the Systems Spec pertaining to rehab referrals. provide a letter describing our affiliations within the [facility] and educate about their right to choose where referrals are sent. provide a list of Home Health Agencies / Durable Medical Equipment vendors which serve their preferred geographic area. provided patient with [facility] Star Quality Rating handout. They have requested referrals to: [facility] [address] [place] [address] Note routed to a Plant Associate who will communicate referrals to facilities and [...] care planning. Dominique VALLES, RN CM Phone: [phone] Pager: [phone] * Brief Op Note - Ilda Estrada MD - 08/21/2022 8:00 PM EDT Brief Operative Note Patient Name: Theresa Hollis : [id number] MR#: [id number] Case Date: 08/21/2022 Surgeon: Surgeon(s) and Role: [...] Operative Note Patient Name: Theresa Hollis : [id number] MR#: [id number] Case Date: 08/21/2022 Surgeon: Surgeon(s) and Role: [...] Laguna MD - 08/21/2022 9:26 AM EDT [facility] Operative Note Patient Name: Theresa Hollis : [id number] MR#: [id number] Case Date: 08/21/2022 Surgeon: Surgeon(s) and Role: [...] the fibula was then secured to the [place] mandible using 2 of the drill holes. Appropriate size screws were placed based on the measurements from the virtual surgical planning. Once this was complete operating microscope was then brought in the vessels were prepared under the operating microscope the 2 vena comitans were repaired to the deep neck veins using a 4 mm and a 3 mm recording artist and then the artery was repaired with [...] Ng MD - 08/21/2022 9:26 AM EDT [facility] Operative Note Patient Name: Theresa Hollis : [id number] MR#: [id number] Case Date: 08/21/2022 Surgeon: Surgeon(s) and Role: [...] PLACEMENT Routine 09/05/2022 1 2:12 PM EDT HEMOGRAM Routine 09/05/2022 2:45 AM EDT DIFFERENTIAL, [...] who have questions please contact the health senior care provider that requested your imaging first. ? Electronically signed by: Thong Lee MD, [facility] ([phone]), at 09/07/2022 4:26 PM Narrative 09/07/2022 4:26 [...] patients who have questions please contactthe health senior care provider that requested your imaging first. Electronically signed by: Thong Lee MD, [facility]([phone]), at 09/07/2022 4:26 PM Roberth Lee MD IMG DX ORDERABLES * EKG 12 Lead (09/07/2022 12:42 PM EDT) Ventricular rate 63 BPM MUSE SYSTEM Atrial Rate 63 BPM MUSE SYSTEM P-R Interval 118 ms MUSE SYSTEM QRS Duration 74 ms MUSE SYSTEM Q-T Interval 400 ms MUSE SYSTEM QTC Calculated (Bezet) 409 ms MUSE SYSTEM Calculated P [place] 76 degrees MUSE SYSTEM Calculated R [place] 5 degrees MUSE SYSTEM Calculated T [place] 57 degrees MUSE SYSTEM INTERPRETATION Normal sinus [...] (ABNORMAL) Differential, Automated (09/07/2022 12:30 AM EDT) Neutrophil % 79.3 % [facility] Neutrophil Absolute 5.40 1.70 - 6.10 x10(3)/mc L [facility] Lymph % 11.5 % [facility] Lymphocytes Abs 0.8(L) 0.9 - 3.2 x10(3)/mc L [facility] Monocyte % 5.3 % [facility] Monocyte Abs 0.4 0.3 - 0.9 x10(3)/mc L [facility] Eos % 2.9 % [facility] Eosinophils Abs 0.2 0.0 - 0.4 x10(3)/mc L [facility] Basophil % 0.6 % [facility] Baso Absolute 0.0 0.0 - 0.1 x10(3)/mc L [facility] Immature Gran % 0.40 % [facility] Comment: Immature granulocytes(IG's)percentage and absolute count will include metamyelocytes, myelocytes, and promyelocytes. Blood smears from CBCs yielding IG's will be scanned manually for concordance. If this scan disagrees with the automated IG or if promyelocytes are noted, a manual differential will be performed. Immature Gran Absolute 0.03 0.00 - 0.04 x10(3)/mc L [facility] Blood 09/07/2022 12:3 0 AM EDT 09/07/2022 12:40 AM EDT Narrative Resulting Agency Comment Spec In Lab Toño Pacheco MD HEMATOLOGY ORDERABLE S [facility] [place] [address] * (ABNORMAL) Hemogram (09/07/2022 12:30 AM EDT) White Blood Cell 6.8 4.0 - 9.5 x10(3)/mc L [facility] Red Blood Cell 2.77(L) 4.00 - 5.21 x10(6)/mc L [facility] Hemoglobin 8.9(L) 11.7 - 15.5 g/dL [facility] Hematocrit 27.0(L) 35.7 - 45.8 % [facility] Mean Cell Volume 97.5(H) 82.6 - 94.4 fL [facility] Mean Cell Hemoglobin 32.1(H) 27.1 - 32.0 pg [facility] Mean Cell Hemoglobin Concentration 33.0 31.7 - 35.0 g/dL [facility] Platelet 555(H) 145 - 357 x10(3)/mc L [facility] RDW Standard Deviation 43.2 37.0 - 46.0 fL [facility] RDW coefficient of variation 12.2 11.5 - 14.1 % [facility] Mean Platelet Volume 8.7 7.6 - 12.9 fL [facility] NRBC% auto 0.0 % [facility] NRBC Absolute 0.000 0.000 - 0.000 x10(3)/mc L [facility] Blood 09/07/2022 12:3 0 AM EDT 09/07/2022 12:40 AM EDT Narrative Resulting Agency Comment Spec In Lab Toño Pacheco MD HEMATOLOGY ORDERABLE S [facility] [place] [address] * (ABNORMAL) Basic Metabolic Panel (non-fasting) (09/07/2022 12:30 AM EDT) Glucose 88 65 - 199 mg/dL [facility] Comment:Diabetes: >=200 mg/d L plus symptoms Blood Urea Nitrogen 23(H) 8 - 18 mg/dL [facility] Creatinine 0.55(L) 0.70 - 1.20 mg/dL [facility] Sodium 140 135 - 145 mmol/L [facility] Potassium 4.6 3.5 - 5.0 mmol/L [facility] Comment: Please note: ??Patients with WBC >100,000 may have falsely elevated Potassium levels. ??For accurate Potassium quantification in these patients send serum separator tube (gold top) for subsequent determinations. ??Contact the Clinical Chemistry Laboratory if there are any questions. Chloride 103 98 - 107 mmol/L [facility] Carbon Dioxide 29 22 - 31 mmol/L [facility] Anion Gap 8 5 - 15 mmol/L [facility] Calcium 9.4 8.5 - 10.5 mg/dL [facility] Est Glomerular Filtration Rate 111 >=60 mL/min/1. 73 m?? [facility] Comment: This patient's estimated GFR [...] MD CHEMISTRY ORDERABL ES Performing Organization Address City/[facility] Co de Phone Number [facility] [place] [address] * Phosphorus (09/07/2022 12:30 AM EDT) Phosphorus 4.3 2.5 - 4.5 mg/dL [facility] Blood 09/07/2022 12:3 0 AM EDT 09/07/2022 12:40 AM EDT Narrative Resulting Agency Comment Spec In Lab Roberth Lee MD CHEMISTRY ORDERABL ES Performing Organization Address [facility] de Phone Number [facility] [place] [address] * Magnesium (09/07/2022 12:30 AM EDT) Magnesium 0.94 0.69 - 1.07 mmol/L [facility] Blood 09/07/2022 12:3 0 AM EDT 09/07/2022 12:40 AM EDT Narrative Resulting Agency Comment Spec In Lab Roberth Lee MD CHEMISTRY ORDERABL ES Performing Organization Address [facility] de Phone Number [facility] [place] [address] * (ABNORMAL) Differential, Automated (09/06/2022 4:03 AM EDT) Neutrophil % 74.5 % [facility] Neutrophil Absolute 4.54 1.70 - 6.10 x10(3)/mc L [facility] Lymph % 12.8 % [facility] Lymphocytes Abs 0.8(L) 0.9 - 3.2 x10(3)/mc L [facility] Monocyte % 8.2 % [facility] Monocyte Abs 0.5 0.3 - 0.9 x10(3)/mc L [facility] Eos % 3.0 % [facility] Eosinophils Abs 0.2 0.0 - 0.4 x10(3)/ L [facility] Basophil % 0.8 % [facility] Baso Absolute 0.0 0.0 - 0.1 x10(3)/ L [facility] Immature Gran % 0.70 % [facility] Comment: Immature granulocytes(IG's)percentage and absolute count will include metamyelocytes, myelocytes, and promyelocytes. Blood smears from CBCs yielding IG's will be scanned manually for concordance. If this scan disagrees with the automated IG or if promyelocytes are noted, a manual differential will be performed. Immature Gran Absolute 0.04 0.00 - 0.04 x10(3)/ L [facility] Blood 09/06/2022 4:03 AM EDT 09/06/2022 4:13 AM EDT Narrative Resulting Agency Comment Spec In Lab Toño Pacehco MD HEMATOLOGY ORDERABLE S [facility] [place] [address] * (ABNORMAL) Hemogram (09/06/2022 4:03 AM EDT) White Blood Cell 6.1 4.0 - 9.5 x10(3)/ L [facility] Red Blood Cell 2.72(L) 4.00 - 5.21 x10(6)/ L [facility] Hemoglobin 8.8(L) 11.7 - 15.5 g/dL [facility] Hematocrit 26.3(L) 35.7 - 45.8 % [facility] Mean Cell Volume 96.7(H) 82.6 - 94.4 fL [facility] Mean Cell Hemoglobin 32.4(H) 27.1 - 32.0 pg [facility] Mean Cell Hemoglobin Concentration 33.5 31.7 - 35.0 g/dL [facility] Platelet 593(H) 145 - 357 x10(3)/mc L [facility] RDW Standard Deviation 42.2 37.0 - 46.0 fL [facility] RDW coefficient of variation 12.3 11.5 - 14.1 % [facility] Mean Platelet Volume 8.6 7.6 - 12.9 fL [facility] NRBC% auto 0.0 % [facility] NRBC Absolute 0.000 0.000 - 0.000 x10(3)/mc L [facility] Blood 09/06/2022 4:03 AM EDT 09/06/2022 4:13 AM EDT Narrative Resulting Agency Comment Spec In Lab Toño Pacheco MD HEMATOLOGY ORDERABLE S [facility] [place] [address] * (ABNORMAL) Basic Metabolic Panel (non-fasting) (09/06/2022 4:03 AM EDT) Glucose 74 65 - 199 mg/dL [facility] Comment:Diabetes: >=200 mg/d L plus symptoms Blood Urea Nitrogen 20(H) 8 - 18 mg/dL [facility] Creatinine 0.47(L) 0.70 - 1.20 mg/dL [facility] Sodium 139 135 - 145 mmol/L [facility] Potassium 4.2 3.5 - 5.0 mmol/L [facility] Comment: Please note: ??Patients with WBC >100,000 may have falsely elevated Potassium levels. ??For accurate Potassium quantification in these patients send serum separator tube (gold top) for subsequent determinations. ??Contact the Clinical Chemistry Laboratory if there are any questions. Chloride 103 98 - 107 mmol/L [facility] Carbon Dioxide 26 22 - 31 mmol/L [facility] Anion Gap 10 5 - 15 mmol/L [facility] Calcium 9.0 8.5 - 10.5 mg/dL [facility] Est Glomerular Filtration Rate 115 >=60 mL/min/1. 73 m?? [facility] Comment: This patient's estimated GFR [...] MD CHEMISTRY ORDERABL ES Performing Organization Address [facility] de Phone Number [facility] [place] [address] * Phosphorus (09/06/2022 4:03 AM EDT) Phosphorus 3.8 2.5 - 4.5 mg/dL [facility] Blood 09/06/2022 4:03 AM EDT 09/06/2022 4:13 AM EDT Narrative Resulting Agency Comment Spec In Lab Roberth Lee MD CHEMISTRY ORDERABL ES Performing Organization Address [facility] [place] [address] * Magnesium (09/06/2022 4:03 AM EDT) Magnesium 0.99 0.69 - 1.07 mmol/L [facility] Blood 09/06/2022 4:03 AM EDT 09/06/2022 4:13 AM EDT Narrative Resulting Agency Comment Spec In Lab Roberth Lee MD CHEMISTRY ORDERABL ES Performing Organization Address [facility] de Phone Number [facility] [place] [address] * IR G-Tube Placement (09/05/2022 12:12 PM [...] barrier technique was used throughout. ??A 4 Trinidadian glide catheter was placed as a nasoenteric [...] with an 8mm balloon catheter. ??A 16 Trinidadian balloon retained gastrostomy tube was placed. ??The [...] IDr. Oliver performed this procedure. ?? Roberth eLe MD IMG IR ORDERABLES * (ABNORMAL) Differential, Automated (09/05/2022 2:45 AM EDT) Neutrophil % 79.0 % [facility] Neutrophil Absolute 7.18(H) 1.70 - 6.10 x10(3)/mc L [facility] Lymph % 10.8 % [facility] Lymphocytes Abs 1.0 0.9 - 3.2 x10(3)/[facility] Monocyte % 7.1 % [facility] Monocyte Abs 0.6 0.3 - 0.9 x10(3)/mc L [facility] Eos % 1.8 % [facility] Eosinophils Abs 0.2 0.0 - 0.4 x10(3)/ L [facility] Basophil % 0.7 % [facility] Baso Absolute 0.1 0.0 - 0.1 x10(3)/ L [facility] Immature Gran % 0.60 % [facility] Comment: Immature granulocytes(IG's)percentage and absolute count will include metamyelocytes, myelocytes, and promyelocytes. Blood smears from CBCs yielding IG's will be scanned manually for concordance. If this scan disagrees with the automated IG or if promyelocytes are noted, a manual differential will be performed. Immature Gran Absolute 0.05(H) 0.00 - 0.04 x10(3)/ L [facility] Blood 09/05/2022 2:45 AM EDT 09/05/2022 2:53 AM EDT Narrative Resulting Agency Comment Spec In Lab Toño Pacheco MD HEMATOLOGY ORDERABLE S [facility] [place] [address] * (ABNORMAL) Hemogram (09/05/2022 2:45 AM EDT) White Blood Cell 9.1 4.0 - 9.5 x10(3)/mc L [facility] Red Blood Cell 2.92(L) 4.00 - 5.21 x10(6)/mc L [facility] Hemoglobin 9.7(L) 11.7 - 15.5 g/dL [facility] Hematocrit 28.0(L) 35.7 - 45.8 % [facility] Mean Cell Volume 95.9(H) 82.6 - 94.4 fL [facility] Mean Cell Hemoglobin 33.2(H) 27.1 - 32.0 pg [facility] Mean Cell Hemoglobin Concentration 34.6 31.7 - 35.0 g/dL [facility] Platelet 655(H) 145 - 357 x10(3)/mc L [facility] RDW Standard Deviation 41.6 37.0 - 46.0 fL [facility] RDW coefficient of variation 12.2 11.5 - 14.1 % [facility] Mean Platelet Volume 8.5 7.6 - 12.9 fL [facility] NRBC% auto 0.0 % [facility] NRBC Absolute 0.000 0.000 - 0.000 x10(3)/mc L [facility] Blood 09/05/2022 2:45 AM EDT 09/05/2022 2:53 AM EDT Narrative Resulting Agency Comment Spec In Lab Toño Pacheco MD HEMATOLOGY ORDERABLE S [facility] [place] [address] * (ABNORMAL) Basic Metabolic Panel (non-fasting) (09/05/2022 2:45 AM EDT) Glucose 98 65 - 199 mg/dL [facility] Comment:Diabetes: >=200 mg/d L plus symptoms Blood Urea Nitrogen 20(H) 8 - 18 mg/dL [facility] Creatinine 0.48(L) 0.70 - 1.20 mg/dL [facility] Sodium 138 135 - 145 mmol/L [facility] Potassium 4.4 3.5 - 5.0 mmol/L [facility] Comment: Please note: ??Patients with WBC >100,000 may have falsely elevated Potassium levels. ??For accurate Potassium quantification in these patients send serum separator tube (gold top) for subsequent determinations. ??Contact the Clinical Chemistry Laboratory if there are any questions. Chloride 101 98 - 107 mmol/L [facility] Carbon Dioxide 28 22 - 31 mmol/L [facility] Anion Gap 9 5 - 15 mmol/L [facility] Calcium 9.3 8.5 - 10.5 mg/dL [facility] Est Glomerular Filtration Rate 115 >=60 mL/min/1. 73 m?? [facility] Comment: This patient's estimated GFR [...] Lab Roberth Lee MD CHEMISTRY ORDERABL ES [facility] [place] [address] * Phosphorus (09/05/2022 2:45 AM EDT) Phosphorus 3.9 2.5 - 4.5 mg/dL [facility] Blood 09/05/2022 2:45 AM EDT 09/05/2022 2:53 AM EDT Narrative Resulting Agency Comment Spec In Lab Roberth Lee MD CHEMISTRY ORDERABL ES Performing Organization Address City/[facility]/ZIP Co de Phone Number [facility] [place] [address] * Magnesium (09/05/2022 2:45 AM EDT) Magnesium 1.01 0.69 - 1.07 mmol/L [facility] Blood 09/05/2022 2:45 AM EDT 09/05/2022 2:53 AM EDT Narrative Resulting Agency Comment Spec In Lab Roberth Lee MD CHEMISTRY ORDERABL ES Performing Organization Address [facility] [place] [address] * (ABNORMAL) Differential, Automated (09/04/2022 12:25 AM EDT) Neutrophil % 79.6 % [facility] Neutrophil Absolute 6.60(H) 1.70 - 6.10 x10(3)/mc L [facility] Lymph % 10.3 % [facility] Lymphocytes Abs 0.8(L) 0.9 - 3.2 x10(3)/mc L [facility] Monocyte % 7.0 % [facility] Monocyte Abs 0.6 0.3 - 0.9 x10(3)/mc L [facility] Eos % 1.9 % [facility] Eosinophils Abs 0.2 0.0 - 0.4 x10(3)/mc L [facility] Basophil % 0.5 % [facility] Baso Absolute 0.0 0.0 - 0.1 x10(3)/mc L [facility] Immature Gran % 0.70 % [facility] Comment: Immature granulocytes(IG's)percentage and absolute count will include metamyelocytes, myelocytes, and promyelocytes. Blood smears from CBCs yielding IG's will be scanned manually for concordance. If this scan disagrees with the automated IG or if promyelocytes are noted, a manual differential will be performed. Immature Gran Absolute 0.06(H) 0.00 - 0.04 x10(3)/mc L [facility] Blood 09/04/2022 12:2 5 AM EDT 09/04/2022 12:36 AM EDT Narrative Resulting Agency Comment Spec In Lab Toño Pacheco MD HEMATOLOGY ORDERABLE S Performing Organization Address [facility]/ZIP Co de Phone Number [facility] [place] [address] * (ABNORMAL) Hemogram (09/04/2022 12:25 AM EDT) White Blood Cell 8.3 4.0 - 9.5 x10(3)/[facility] LABORATORY Red Blood Cell 2.80(L) 4.00 - 5.21 x10(6)/[facility]ORY Hemoglobin 9.1(L) 11.7 - 15.5 g/dL [facility] Hematocrit 26.8(L) 35.7 - 45.8 % [facility] Mean Cell Volume 95.7(H) 82.6 - 94.4 fL [facility] Mean Cell Hemoglobin 32.5(H) 27.1 - 32.0 pg [facility] Mean Cell Hemoglobin Concentration 34.0 31.7 - 35.0 g/dL [facility] Platelet 624(H) 145 - 357 x10(3)/[facility] LAB[facility]ATORY RDW Standard Deviation 40.8 37.0 - 46.0 fL [facility] RDW coefficient of variation 11.9 11.5 - 14.1 % [facility] Mean Platelet Volume 8.7 7.6 - 12.9 fL [facility] NRBC% auto 0.0 % [facility] NRBC Absolute 0.000 0.000 - 0.000 x10(3)/[facility] LAB[facility]ATORY Blood 09/04/2022 12:2 5 AM EDT 09/04/2022 12:36 AM EDT Narrative Resulting Agency Comment Spec In Lab Toño Pacheco MD HEMATOLOGY ORDERABLE S Performing Organization Address [facility]/ZIP Co de Phone Number [facility] [place] [address] * (ABNORMAL) Basic Metabolic Panel (non-fasting) (09/04/2022 12:25 AM EDT) Glucose 98 65 - 199 mg/dL [facility] Comment:Diabetes: >=200 mg/d L plus symptoms Blood Urea Nitrogen 19(H) 8 - 18 mg/dL [facility] Creatinine 0.45(L) 0.70 - 1.20 mg/dL [facility] Sodium 136 135 - 145 mmol/L [facility] Potassium 3.8 3.5 - 5.0 mmol/L [facility] Comment: Please note: ??Patients with WBC >100,000 may have falsely elevated Potassium levels. ??For accurate Potassium quantification in these patients send serum separator tube (gold top) for subsequent determinations. ??Contact the Clinical Chemistry Laboratory if there are any questions. Chloride 100 98 - 107 mmol/L [facility] Carbon Dioxide 27 22 - 31 mmol/L [facility] Anion Gap 9 5 - 15 mmol/L [facility] Calcium 8.8 8.5 - 10.5 mg/dL [facility] Est Glomerular Filtration Rate 116 >=60 mL/min/1. 73 m?? [facility] Comment: This patient's estimated GFR [...] Lab Roberth Lee MD CHEMISTRY ORDERABL ES [facility] [place] [address] * Phosphorus (09/04/2022 12:25 AM EDT) Phosphorus 3.8 2.5 - 4.5 mg/dL [facility] Blood 09/04/2022 12:2 5 AM EDT 09/04/2022 12:36 AM EDT Narrative Resulting Agency Comment Spec In Lab Roberth Lee MD CHEMISTRY ORDERABL ES Performing Organization Address [facility] Co de Phone Number [facility] [place] [address] * Magnesium (09/04/2022 12:25 AM EDT) Magnesium 1.00 0.69 - 1.07 mmol/L [facility] Blood 09/04/2022 12:2 5 AM EDT 09/04/2022 12:36 AM EDT Narrative Resulting Agency Comment Spec In Lab Roberth Lee MD CHEMISTRY ORDERABL ES Performing Organization Address [facility] de Phone Number [facility] [place] [address] * (ABNORMAL) Differential, Automated (09/03/2022 2:00 AM EDT) Neutrophil % 79.8 % [facility] Neutrophil Absolute 6.58(H) 1.70 - 6.10 x10(3)/mc L [facility] Lymph % 9.1 % [facility] Lymphocytes Abs 0.8(L) 0.9 - 3.2 x10(3)/mc L [facility] Monocyte % 8.3 % [facility] Monocyte Abs 0.7 0.3 - 0.9 x10(3)/mc L [facility] Eos % 1.2 % [facility] Eosinophils Abs 0.1 0.0 - 0.4 x10(3)/mc L [facility] Basophil % 0.6 % [facility] Baso Absolute 0.0 0.0 - 0.1 x10(3)/mc L [facility] Immature Gran % 1.00 % [facility] Comment: Immature granulocytes(IG's)percentage and absolute count will include metamyelocytes, myelocytes, and promyelocytes. Blood smears from CBCs yielding IG's will be scanned manually for concordance. If this scan disagrees with the automated IG or if promyelocytes are noted, a manual differential will be performed. Immature Gran Absolute 0.08(H) 0.00 - 0.04 x10(3)/mc L [facility] Blood 09/03/2022 2:00 AM EDT 09/03/2022 2:09 AM EDT Narrative Resulting Agency Comment Spec In Lab Toño Pacheco MD HEMATOLOGY ORDERABLE S [facility] [place] [address] * (ABNORMAL) Hemogram (09/03/2022 2:00 AM EDT) White Blood Cell 8.2 4.0 - 9.5 x10(3)/mc L [facility] Red Blood Cell 3.07(L) 4.00 - 5.21 x10(6)/mc L [facility] Hemoglobin 9.8(L) 11.7 - 15.5 g/dL [facility] Hematocrit 29.4(L) 35.7 - 45.8 % [facility] Mean Cell Volume 95.8(H) 82.6 - 94.4 fL [facility] Mean Cell Hemoglobin 31.9 27.1 - 32.0 pg [facility] Mean Cell Hemoglobin Concentration 33.3 31.7 - 35.0 g/dL [facility] Platelet 657(H) 145 - 357 x10(3)/mc L [facility] RDW Standard Deviation 40.5 37.0 - 46.0 fL [facility] RDW coefficient of variation 11.9 11.5 - 14.1 % [facility] Mean Platelet Volume 8.5 7.6 - 12.9 fL [facility] NRBC% auto 0.0 % [facility] NRBC Absolute 0.000 0.000 - 0.000 x10(3)/mc L [facility] Blood 09/03/2022 2:00 AM EDT 09/03/2022 2:09 AM EDT Narrative Resulting Agency Comment Spec In Lab Toño Pacheco MD HEMATOLOGY ORDERABLE S Performing Organization Address [facility] Co de Phone Number [facility] [place] [address] * (ABNORMAL) Basic Metabolic Panel (non-fasting) (09/03/2022 2:00 AM EDT) Glucose 85 65 - 199 mg/dL [facility] Comment:Diabetes: >=200 mg/d L plus symptoms Blood Urea Nitrogen 20(H) 8 - 18 mg/dL [facility] Creatinine 0.45(L) 0.70 - 1.20 mg/dL [facility] Sodium 137 135 - 145 mmol/L [facility] Potassium 4.2 3.5 - 5.0 mmol/L [facility] Comment: Please note: ??Patients with WBC >100,000 may have falsely elevated Potassium levels. ??For accurate Potassium quantification in these patients send serum separator tube (gold top) for subsequent determinations. ??Contact the Clinical Chemistry Laboratory if there are any questions. Chloride 98 98 - 107 mmol/L [facility] Carbon Dioxide 28 22 - 31 mmol/L [facility] Anion Gap 11 5 - 15 mmol/L [facility] Calcium 9.2 8.5 - 10.5 mg/dL [facility] Est Glomerular Filtration Rate 116 >=60 mL/min/1. 73 m?? [facility] Comment: This patient's estimated GFR [...] Lab Roberth Lee MD CHEMISTRY ORDERABL ES [facility] [place] [address] * Phosphorus (09/03/2022 2:00 AM EDT) Phosphorus 3.7 2.5 - 4.5 mg/dL [facility] Blood 09/03/2022 2:00 AM EDT 09/03/2022 2:09 AM EDT Narrative Resulting Agency Comment Spec In Lab Roberth Lee MD CHEMISTRY ORDERABL ES Performing Organization Address [facility] Co de Phone Number [facility] [place] [address] * Magnesium (09/03/2022 2:00 AM EDT) Magnesium 1.05 0.69 - 1.07 mmol/L [facility] Blood 09/03/2022 2:00 AM EDT 09/03/2022 2:09 AM EDT Narrative Resulting Agency Comment Spec In Lab Roberth Lee MD CHEMISTRY ORDERABL ES Performing Organization Address [facility] Co de Phone Number [facility] [place] [address] * Place PICC Line: Contact Vascular Access Page [phone] Extremity to exclude: No restrictions; Is PICC [...] to the planned procedure. 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 Catheter type: PICC Lot number: [id number] Procedure Technique: Skin was prepped with chlorhexidine. [...] who have questions please contact the health senior care provider that requested your imaging first. ? Electronically signed by: Silvia Lee MD, [facility] ([phone]), at 09/02/2022 5:04 PM Narrative 09/02/2022 5:04 [...] patients who have questions please contactthe health senior care provider that requested your imaging first. Roberth Lee MD IMG FLUORO ORDERAB LES * (ABNORMAL) Differential, Automated (09/02/2022 12:28 AM EDT) Neutrophil % 83.7 % [facility] Neutrophil Absolute 7.16(H) 1.70 - 6.10 x10(3)/mc L [facility] Lymph % 7.0 % [facility] Lymphocytes Abs 0.6(L) 0.9 - 3.2 x10(3)/mc L [facility] Monocyte % 6.7 % [facility] Monocyte Abs 0.6 0.3 - 0.9 x10(3)/mc L [facility] Eos % 1.3 % [facility] Eosinophils Abs 0.1 0.0 - 0.4 x10(3)/mc L [facility] Basophil % 0.5 % [facility] Baso Absolute 0.0 0.0 - 0.1 x10(3)/mc L [facility] Immature Gran % 0.80 % [facility] Comment: Immature granulocytes(IG's)percentage and absolute count will include metamyelocytes, myelocytes, and promyelocytes. Blood smears from CBCs yielding IG's will be scanned manually for concordance. If this scan disagrees with the automated IG or if promyelocytes are noted, a manual differential will be performed. Immature Gran Absolute 0.07(H) 0.00 - 0.04 x10(3)/mc L [facility] Blood 09/02/2022 12:2 8 AM EDT 09/02/2022 12:42 AM EDT Narrative Resulting Agency Comment Spec In Lab Toño Pacheco MD HEMATOLOGY ORDERABLE S [facility] [place] [address] * (ABNORMAL) Hemogram (09/02/2022 12:28 AM EDT) White Blood Cell 8.6 4.0 - 9.5 x10(3)/mc L [facility] Red Blood Cell 2.89(L) 4.00 - 5.21 x10(6)/mc L [facility] Hemoglobin 9.4(L) 11.7 - 15.5 g/dL [facility] Hematocrit 27.7(L) 35.7 - 45.8 % [facility] Mean Cell Volume 95.8(H) 82.6 - 94.4 fL [facility] Mean Cell Hemoglobin 32.5(H) 27.1 - 32.0 pg [facility] Mean Cell Hemoglobin Concentration 33.9 31.7 - 35.0 g/dL [facility] Platelet 591(H) 145 - 357 x10(3)/mc L [facility] RDW Standard Deviation 40.4 37.0 - 46.0 fL [facility] RDW coefficient of variation 11.7 11.5 - 14.1 % [facility] Mean Platelet Volume 8.5 7.6 - 12.9 fL [facility] NRBC% auto 0.0 % [facility] NRBC Absolute 0.000 0.000 - 0.000 x10(3)/ L [facility] Blood 09/02/2022 12:2 8 AM EDT 09/02/2022 12:42 AM EDT Narrative Resulting Agency Comment Spec In Lab Toño Pacheco MD HEMATOLOGY ORDERABLE S [facility] [place] [id number] * (ABNORMAL) Basic Metabolic Panel (non-fasting) (09/02/2022 12:28 AM EDT) Glucose 112 65 - 199 mg/dL [facility] Comment:Diabetes: >=200 mg/d L plus symptoms Blood Urea Nitrogen 17 8 - 18 mg/dL [facility] Creatinine 0.41(L) 0.70 - 1.20 mg/dL [facility] Sodium 130(L) 135 - 145 mmol/L [facility] Potassium 4.1 3.5 - 5.0 mmol/L [facility] Comment: Please note: ??Patients with WBC >100,000 may have falsely elevated Potassium levels. ??For accurate Potassium quantification in these patients send serum separator tube (gold top) for subsequent determinations. ??Contact the Clinical Chemistry Laboratory if there are any questions. Chloride 96(L) 98 - 107 mmol/L [facility] Carbon Dioxide 25 22 - 31 mmol/L [facility] [facility] Anion Gap 9 5 - 15 mmol/L [facility] Calcium 8.7 8.5 - 10.5 mg/dL [facility] Est Glomerular Filtration Rate 119 >=60 mL/min/1. 73 m?? [facility] Comment: This patient's estimated GFR [...] MD CHEMISTRY ORDERABL ES Performing Organization Address [facility] Co de Phone Number [facility] [place] [address] * Phosphorus (09/02/2022 12:28 AM EDT) Phosphorus 3.2 2.5 - 4.5 mg/dL [facility] Blood 09/02/2022 12:2 8 AM EDT 09/02/2022 12:42 AM EDT Narrative Resulting Agency Comment Spec In Lab Roberth Lee MD CHEMISTRY ORDERABL ES Performing Organization Address [facility] Co de Phone Number [facility] [place] [address] * Magnesium (09/02/2022 12:28 AM EDT) Magnesium 1.02 0.69 - 1.07 mmol/L [facility] Blood 09/02/2022 12:2 8 AM EDT 09/02/2022 12:42 AM EDT Narrative Resulting Agency Comment Spec In Lab Roberth Lee MD CHEMISTRY ORDERABL ES Performing Organization Address [facility] Co de Phone Number [facility] [place] [address] * Lavender Tube HOLD (09/01/2022 9:45 AM EDT) Lavender Hold Sample in lab. [facility] Blood Venous Draw / Unknown 09/01/2022 9:45 AM EDT 09/01/2022 10:17 AM EDT Toño Pacheco MD HEMATOLOGY ORDERABLE S Performing Organization Address [facility] Co de Phone Number [facility] [place] [address] * Phosphorus (09/01/2022 9:45 AM EDT) Phosphorus 2.8 2.5 - 4.5 mg/dL [facility] Blood 09/01/2022 9:45 AM EDT 09/01/2022 10:16 AM EDT Narrative Resulting Agency Comment Spec In Lab Roberth Lee MD CHEMISTRY ORDERABL ES Performing Organization Address [facility] Co de Phone Number [facility] [place] [address] * Magnesium (09/01/2022 9:45 AM EDT) Magnesium 1.00 0.69 - 1.07 mmol/L [facility] Blood 09/01/2022 9:45 AM EDT 09/01/2022 10:16 AM EDT Narrative Resulting Agency Comment Spec In Lab Roberth Lee MD CHEMISTRY ORDERABL ES Performing Organization Address City/[facility]/ZIP Co de Phone Number [facility] [place] [address] * (ABNORMAL) Basic Metabolic Panel (non-fasting) (09/01/2022 9:45 AM EDT) Glucose 95 65 - 199 mg/dL [facility] Comment:Diabetes: >=200 mg/d L plus symptoms Blood Urea Nitrogen 19(H) 8 - 18 mg/dL [facility] Creatinine 0.42(L) 0.70 - 1.20 mg/dL [facility] Sodium 129(L) 135 - 145 mmol/L [facility] Potassium 4.3 3.5 - 5.0 mmol/L [facility] Comment: Please note: ??Patients with WBC >100,000 may have falsely elevated Potassium levels. ??For accurate Potassium quantification in these patients send serum separator tube (gold top) for subsequent determinations. ??Contact the Clinical Chemistry Laboratory if there are any questions. Chloride 92(L) 98 - 107 mmol/L [facility] Carbon Dioxide 25 22 - 31 mmol/L [facility] Anion Gap 12 5 - 15 mmol/L [facility] Calcium 9.5 8.5 - 10.5 mg/dL [facility] Est Glomerular Filtration Rate 118 >=60 mL/min/1. 73 m?? [facility] Comment: This patient's estimated GFR [...] MD CHEMISTRY ORDERABL ES Performing Organization Address City/State/[facility] Co de Phone Number [facility] [place] [address] * Electrolytes, urine, random (09/01/2022 9:30 AM EDT) Sodium, Urine 40 mmol/L [facility] Potassium, Urine 66 mmol/L [facility] Chloride, Urine 48 mmol/L [facility] Urine 09/01/2022 9:30 AM EDT 09/01/2022 9:44 AM EDT Narrative Resulting Agency Comment Spec In Lab Roberth Lee MD URINE ORDERABLES Performing Organization Address [facility] de Phone Number [facility] [place] [address] * T4, free (09/01/2022 12:42 AM EDT) Free T4 0.93 0.93 - 1.70 ng/dL [facility] Comment: Reference Interval (ng/dL): Females: ??First Trimester: 0.97-1.68 ??Second Trimester: 0.77-1.51 ??Third Trimester: 0.77-1.49 Blood Venous Draw / Unknown 09/01/2022 12:42 AM EDT 09/01/2022 8:47 AM EDT Narrative Resulting Agency Comment Spec In Lab Toño Pacheco MD CHEMISTRY ORDERABLES Performing Organization Address [facility] Co de Phone Number [facility] [place] [address] * (ABNORMAL) TSH [place] (09/01/2022 12:42 AM EDT) Thyroid Stimulating Hormone 18.90(H) 0.27 - 4.20 mcIU/mL [facility] Comment: Reference Interval (mcIU/mL): Females: ??First Trimester: 0.23-3.88 ??Second Trimester: 0.22-3.90 ??Third Trimester: 0.44-4.66 Blood Venous Draw / Unknown 09/01/2022 12:42 AM EDT 09/01/2022 8:47 AM EDT Narrative Resulting Agency Comment Spec In Lab Toño Pacheco MD CHEMISTRY ORDERABLES Performing Organization Address [facility] Co de Phone Number [facility] [place] [address] * (ABNORMAL) TSH (09/01/2022 12:42 AM EDT) Thyroid Stimulating Hormone 18.40(H) 0.27 - 4.20 mcIU/mL [facility] Comment: Reference Interval (mcIU/mL): Females: ??First Trimester: 0.23-3.88 ??Second Trimester: 0.22-3.90 ??Third Trimester: 0.44-4.66 Blood 09/01/2022 12:4 2 AM EDT 09/01/2022 12:52 AM EDT Narrative Resulting Agency Comment Spec In Lab Roberth Lee MD CHEMISTRY ORDERABL ES Performing Organization Address [facility] Co de Phone Number [facility] [place] [address] * Phosphorus (08/31/2022 4:25 PM EDT) Phosphorus 3.5 2.5 - 4.5 mg/dL [facility] Blood 08/31/2022 4:25 PM EDT 08/31/2022 4:42 PM EDT Narrative Resulting Agency Comment Spec In Lab Roberth Lee MD CHEMISTRY ORDERABL ES Performing Organization Address [facility] Co de Phone Number [facility] [place] [address] * Magnesium (08/31/2022 4:25 PM EDT) Magnesium 0.95 0.69 - 1.07 mmol/L [facility] Blood 08/31/2022 4:25 PM EDT 08/31/2022 4:42 PM EDT Narrative Resulting Agency Comment Spec In Lab Roberth Lee MD CHEMISTRY ORDERABL ES Performing Organization Address City/[facility] Co de Phone Number [facility] [place] [address] * (ABNORMAL) Basic Metabolic Panel (non-fasting) (08/31/2022 4:25 PM EDT) Glucose 106 65 - 199 mg/dL [facility] Comment:Diabetes: >=200 mg/d L plus symptoms Blood Urea Nitrogen 20(H) 8 - 18 mg/dL [facility] Creatinine 0.41(L) 0.70 - 1.20 mg/dL [facility] Sodium 127(L) 135 - 145 mmol/L [facility] Potassium 4.3 3.5 - 5.0 mmol/L [facility] Comment: Please note: ??Patients with WBC >100,000 may have falsely elevated Potassium levels. ??For accurate Potassium quantification in these patients send serum separator tube (gold top) for subsequent determinations. ??Contact the Clinical Chemistry Laboratory if there are any questions. Chloride 90(L) 98 - 107 mmol/L [facility] Carbon Dioxide 24 22 - 31 mmol/L [facility] Anion Gap 13 5 - 15 mmol/L [facility] Calcium 9.4 8.5 - 10.5 mg/dL [facility] Est Glomerular Filtration Rate 119 >=60 mL/min/1. 73 m?? [facility] Comment: This patient's estimated GFR [...] Lab Roberth Lee [place] [address] * (ABNORMAL) Differential, Automated (08/31/2022 11:37 AM EDT) Neutrophil % 85.4 % [facility] Neutrophil Absolute 7.53(H) 1.70 - 6.10 x10(3)/mc L [facility] Lymph % 6.9 % [facility] Lymphocytes Abs 0.6(L) 0.9 - 3.2 x10(3)/mc L [facility] Monocyte % 5.6 % [facility] Monocyte Abs 0.5 0.3 - 0.9 x10(3)/ L [facility] Eos % 0.9 % [facility] Eosinophils Abs 0.1 0.0 - 0.4 x10(3)/ L [facility] Basophil % 0.6 % [facility] Baso Absolute 0.0 0.0 - 0.1 x10(3)/mc L [facility] Immature Gran % 0.60 % [facility] Comment: Immature granulocytes(IG's)percentage and absolute count will include metamyelocytes, myelocytes, and promyelocytes. Blood smears from CBCs yielding IG's will be scanned manually for concordance. If this scan disagrees with the automated IG or if promyelocytes are noted, a manual differential will be performed. Immature Gran Absolute 0.05(H) 0.00 - 0.04 x10(3)/ L [facility] Blood 08/31/2022 11:3 7 AM EDT 08/31/2022 11:54 AM EDT Narrative Resulting Agency Comment Spec In Lab Toño Pacheco MD [place] [address] * (ABNORMAL) Hemogram (08/31/2022 11:37 AM EDT) White Blood Cell 8.8 4.0 - 9.5 x10(3)/ L [facility] Red Blood Cell 3.04(L) 4.00 - 5.21 x10(6)/mc L [facility] Hemoglobin 9.7(L) 11.7 - 15.5 g/dL [facility] Hematocrit 29.3(L) 35.7 - 45.8 % [facility] Mean Cell Volume 96.4(H) 82.6 - 94.4 fL [facility] Mean Cell Hemoglobin 31.9 27.1 - 32.0 pg [facility] Mean Cell Hemoglobin Concentration 33.1 31.7 - 35.0 g/dL [facility] Platelet 670(H) 145 - 357 x10(3)/mc L [facility] RDW Standard Deviation 41.2 37.0 - 46.0 fL [facility] RDW coefficient of variation 11.7 11.5 - 14.1 % [facility] Mean Platelet Volume 8.8 7.6 - 12.9 fL [facility] NRBC% auto 0.0 % [facility] NRBC Absolute 0.000 0.000 - 0.000 x10(3)/mc L [facility] Blood 08/31/2022 11:3 7 AM EDT 08/31/2022 11:54 AM EDT Narrative Resulting Agency Comment Spec In Lab Toño Pacheco MD HEMATOLOGY ORDERABLE S Performing Organization Address City/[facility]/ZIP Co de Phone Number [facility] [place] [id number] * Phosphorus (08/31/2022 12:34 AM EDT) Phosphorus 3.7 2.5 - 4.5 mg/dL [facility] Blood 08/31/2022 12:3 4 AM EDT 08/31/2022 12:50 AM EDT Narrative Resulting Agency Comment Spec In Lab Roberth Lee MD CHEMISTRY ORDERABL ES Performing Organization Address City/[facility]/ZIP Co de Phone Number [facility] [place] [address] * (ABNORMAL) Basic Metabolic Panel (non-fasting) (08/31/2022 12:34 AM EDT) Glucose 112 65 - 199 mg/dL [facility] Comment:Diabetes: >=200 mg/d L plus symptoms Blood Urea Nitrogen 18 8 - 18 mg/dL [facility] Creatinine 0.39(L) 0.70 - 1.20 mg/dL [facility] Sodium 128(L) 135 - 145 mmol/L [facility] Potassium 4.5 3.5 - 5.0 mmol/L [facility] Comment: Please note: ??Patients with WBC >100,000 may have falsely elevated Potassium levels. ??For accurate Potassium quantification in these patients send serum separator tube (gold top) for subsequent determinations. ??Contact the Clinical Chemistry Laboratory if there are any questions. Chloride 91(L) 98 - 107 mmol/L [facility] Carbon Dioxide 26 22 - 31 mmol/L [facility] Anion Gap 11 5 - 15 mmol/L [facility] Calcium 9.4 8.5 - 10.5 mg/dL [facility] Est Glomerular Filtration Rate 120 >=60 mL/min/1. 73 m?? [facility] Comment: This patient's estimated GFR [...] Lab Roberth Lee MD CHEMISTRY ORDERABL ES [facility] [place] [address] * Magnesium (08/31/2022 12:34 AM EDT) Magnesium 0.96 0.69 - 1.07 mmol/L [facility] Blood 08/31/2022 12:3 4 AM EDT 08/31/2022 12:50 AM EDT Narrative Resulting Agency Comment Spec In Lab Roberth Lee MD CHEMISTRY ORDERABL ES [facility] [place] [address] * XR Chest One View (08/30/2022 8:39 [...] who have questions please contact the health senior care provider that requested your imaging first. ? Electronically signed by: Dar Villanueva MD, [facility] ([phone]), at 08/30/2022 8:43 AM Narrative 08/30/2022 8:43 [...] patients who have questions please contactthe health senior care provider that requested your imaging first. Electronically signed by: Dar Villanueva MD, [facility]([phone]), at 08/30/2022 8:43 AM Roberth Lee MD IMG DX ORDERABLES * EKG 12 Lead (08/30/2022 8:32 AM EDT) Ventricular rate 82 BPM MUSE SYSTEM Atrial Rate 82 BPM MUSE SYSTEM P-R Interval 120 ms MUSE SYSTEM QRS Duration 76 ms MUSE SYSTEM Q-T Interval 374 ms MUSE SYSTEM QTC Calculated (Bezet) 436 ms MUSE SYSTEM Calculated P [place] 77 degrees MUSE SYSTEM Calculated R [place] 68 degrees MUSE SYSTEM Calculated T [place] 60 degrees MUSE SYSTEM INTERPRETATION Normal sinus [...] 5:39 AM EDT) Neutrophil % 77.9 % [facility] Neutrophil Absolute 4.65 1.70 - 6.10 x10(3)/mc L [facility] Lymph % 8.5 % [facility] Lymphocytes Abs 0.5(L) 0.9 - 3.2 x10(3)/[facility] Monocyte % 7.9 % [facility] Monocyte Abs 0.5 0.3 - 0.9 x10(3)/[facility] Eos % 4.9 % [facility] Eosinophils Abs 0.3 0.0 - 0.4 x10(3)/[facility] Basophil % 0.3 % [facility] Baso Absolute 0.0 0.0 - 0.1 x10(3)/[facility] Immature Gran % 0.50 % [facility] Comment: Immature granulocytes(IG's)percentage and absolute count will include metamyelocytes, myelocytes, and promyelocytes. Blood smears from CBCs yielding IG's will be scanned manually for concordance. If this scan disagrees with the automated IG or if promyelocytes are noted, a manual differential will be performed. Immature Gran Absolute 0.03 0.00 - 0.04 x10(3)/ L [facility] Blood 08/26/2022 5:39 AM EDT 08/26/2022 5:51 AM EDT Narrative Resulting Agency Comment Spec In Lab Meredith Root LEATHER SEASONER HEMATOLOGY ORDER JUDI [facility] [place] [address] * (ABNORMAL) Hemogram (08/26/2022 5:39 AM EDT) White Blood Cell 6.0 4.0 - 9.5 x10(3)/[facility] Red Blood Cell 2.56(L) 4.00 - 5.21 x10(6)/[facility] Hemoglobin 8.4(L) 11.7 - 15.5 g/dL [facility] Hematocrit 24.4(L) 35.7 - 45.8 % [facility] Mean Cell Volume 95.3(H) 82.6 - 94.4 fL [facility] Mean Cell Hemoglobin 32.8(H) 27.1 - 32.0 pg [facility] Mean Cell Hemoglobin Concentration 34.4 31.7 - 35.0 g/dL [facility] Platelet 257 145 - 357 x10(3)/mc L [facility] RDW Standard Deviation 41.2 37.0 - 46.0 fL [facility] RDW coefficient of variation 11.9 11.5 - 14.1 % [facility] Mean Platelet Volume 9.2 7.6 - 12.9 fL [facility] NRBC% auto 0.0 % [facility] NRBC Absolute 0.000 0.000 - 0.000 x10(3)/mc L [facility] Blood 08/26/2022 5:39 AM EDT 08/26/2022 5:51 AM EDT Narrative Resulting Agency Comment Spec In Lab Meredith Root LEATHER SEASONER HEMATOLOGY ORDER JUDI Performing Organization Address [facility]/ZIP Co de Phone Number [facility] [place] [address] * Phosphorus (08/26/2022 5:39 AM EDT) Phosphorus 2.6 2.5 - 4.5 mg/dL [facility] Blood 08/26/2022 5:39 AM EDT 08/26/2022 5:51 AM EDT Narrative Resulting Agency Comment Spec In Lab Meredith Root LEATHER SEASONER CHEMISTRY ORDERA BLES Performing Organization Address City/[facility] Co de Phone Number [facility] [place] [address] * (ABNORMAL) Basic Metabolic Panel (non-fasting) (08/26/2022 5:39 AM EDT) Glucose 100 65 - 199 mg/dL [facility] Comment:Diabetes: >=200 mg/d L plus symptoms Blood Urea Nitrogen 16 8 - 18 mg/dL [facility] Comment:result rechecked-JSJ Creatinine 0.51(L) 0.70 - 1.20 mg/dL [facility] Sodium 137 135 - 145 mmol/L [facility] Potassium 3.8 3.5 - 5.0 mmol/L [facility] Comment: Please note: ??Patients with WBC >100,000 may have falsely elevated Potassium levels. ??For accurate Potassium quantification in these patients send serum separator tube (gold top) for subsequent determinations. ??Contact the Clinical Chemistry Laboratory if there are any questions. Chloride 102 98 - 107 mmol/L [facility] Carbon Dioxide 25 22 - 31 mmol/L [facility] Anion Gap 10 5 - 15 mmol/L [facility] Calcium 8.5 8.5 - 10.5 mg/dL [facility] Est Glomerular Filtration Rate 113 >=60 mL/min/1. 73 m?? [facility] Comment: This patient's estimated GFR [...] Agency Comment Spec In Lab Meredith Root LEATHER SEASONER CHEMISTRY ORDERA BLES Performing Organization Address [facility] Co de Phone Number [facility] [place] [address] * Magnesium (08/26/2022 5:39 AM EDT) Magnesium 0.87 0.69 - 1.07 mmol/L [facility] Blood 08/26/2022 5:39 AM EDT 08/26/2022 5:51 AM EDT Narrative Resulting Agency Comment Spec In Lab Meredith E Borislle LEATHER SEASONER CHEMISTRY ORDERA BLES Performing Organization Address [facility]/[place] [address] * (ABNORMAL) Differential, Automated (08/25/2022 9:07 AM EDT) Neutrophil % 85.2 % [facility] Neutrophil Absolute 5.23 1.70 - 6.10 x10(3)/mc L [facility] Lymph % 5.5 % [facility] Lymphocytes Abs 0.3(L) 0.9 - 3.2 x10(3)/ L [facility] Monocyte % 5.7 % [facility] Monocyte Abs 0.4 0.3 - 0.9 x10(3)/ L [facility] Eos % 2.8 % [facility] Eosinophils Abs 0.2 0.0 - 0.4 x10(3)/[facility] Basophil % 0.3 % [facility] Baso Absolute 0.0 0.0 - 0.1 x10(3)/ L [facility] Immature Gran % 0.50 % [facility] Comment: Immature granulocytes(IG's)percentage and absolute count will include metamyelocytes, myelocytes, and promyelocytes. Blood smears from CBCs yielding IG's will be scanned manually for concordance. If this scan disagrees with the automated IG or if promyelocytes are noted, a manual differential will be performed. Immature Gran Absolute 0.03 0.00 - 0.04 x10(3)/ L [facility] Blood 08/25/2022 9:07 AM EDT 08/25/2022 9:26 AM EDT Narrative Resulting Agency Comment Spec In Lab Meredith Root APRN HEMATOLOGY ORDER JUDI Performing Organization Address City/[facility]/[place] [address] * (ABNORMAL) Hemogram (08/25/2022 9:07 AM EDT) White Blood Cell 6.1 4.0 - 9.5 x10(3)/ L [facility] Red Blood Cell 2.65(L) 4.00 - 5.21 x10(6)/mc L [facility] Hemoglobin 8.7(L) 11.7 - 15.5 g/dL [facility] Hematocrit 25.0(L) 35.7 - 45.8 % [facility] Mean Cell Volume 94.3 82.6 - 94.4 fL [facility] Mean Cell Hemoglobin 32.8(H) 27.1 - 32.0 pg [facility] Mean Cell Hemoglobin Concentration 34.8 31.7 - 35.0 g/dL [facility] Platelet 209 145 - 357 x10(3)/mc L [facility] RDW Standard Deviation 40.8 37.0 - 46.0 fL [facility] RDW coefficient of variation 11.8 11.5 - 14.1 % [facility] Mean Platelet Volume 9.6 7.6 - 12.9 fL [facility] NRBC% auto 0.0 % [facility] NRBC Absolute 0.000 0.000 - 0.000 x10(3)/ L [facility] Blood 08/25/2022 9:07 AM EDT 08/25/2022 9:26 AM EDT Narrative Resulting Agency Comment Spec In Lab Meredith Root LEATHER SEASONER HEMATOLOGY ORDER JUDI Performing Organization Address [facility] Co de Phone Number [facility] [place] [address] * Phosphorus (08/25/2022 9:07 AM EDT) Phosphorus 2.8 2.5 - 4.5 mg/dL [facility] Blood 08/25/2022 9:07 AM EDT 08/25/2022 9:26 AM EDT Narrative Resulting Agency Comment Spec In Lab Meredith E Dk LEATHER SEASONER CHEMISTRY ORDERA BLES Performing Organization Address [facility] Co de Phone Number [facility] [place] [address] * (ABNORMAL) Basic Metabolic Panel (non-fasting) (08/25/2022 9:07 AM EDT) Glucose 85 65 - 199 mg/dL [facility] Comment:Diabetes: >=200 mg/d L plus symptoms Blood Urea Nitrogen 9 8 - 18 mg/dL [facility] Creatinine 0.50(L) 0.70 - 1.20 mg/dL [facility] Sodium 136 135 - 145 mmol/L [facility] Potassium 3.4(L) 3.5 - 5.0 mmol/L [facility] Comment: Please note: ??Patients with WBC >100,000 may have falsely elevated Potassium levels. ??For accurate Potassium quantification in these patients send serum separator tube (gold top) for subsequent determinations. ??Contact the Clinical Chemistry Laboratory if there are any questions. Chloride 100 98 - 107 mmol/L [facility] Carbon Dioxide 23 22 - 31 mmol/L [facility] Anion Gap 13 5 - 15 mmol/L [facility] Calcium 8.4(L) 8.5 - 10.5 mg/dL [facility] Est Glomerular Filtration Rate 113 >=60 mL/min/1. 73 m?? [facility] Comment: This patient's estimated GFR [...] Agency Comment Spec In Lab Meredith Root LE[facility]MI[facility] ORDER[facility] BLES [facility] [place] [address] * Magnesium (08/25/2022 9:07 AM EDT) Magnesium 0.82 0.69 - 1.07 mmol/L [facility] Blood 08/25/2022 9:07 AM EDT 08/25/2022 9:26 AM EDT Narrative Resulting Agency Comment Spec In Lab Meredith Root LEATHER SEASON[place] [address] * (ABNORMAL) Differential, Automated (08/24/2022 1:00 AM EDT) Neutrophil % 85.7 % [facility] Neutrophil Absolute 4.48 1.70 - 6.10 x10(3)/mc L [facility] Lymph % 7.6 % [facility] Lymphocytes Abs 0.4(L) 0.9 - 3.2 x10(3)/mc L [facility] Monocyte % 5.0 % [facility] Monocyte Abs 0.3 0.3 - 0.9 x10(3)/mc L [facility] Eos % 1.1 % [facility] Eosinophils Abs 0.1 0.0 - 0.4 x10(3)/mc L [facility] Basophil % 0.2 % [facility] Baso Absolute 0.0 0.0 - 0.1 x10(3)/mc L [facility] Immature Gran % 0.40 % [facility] Comment: Immature granulocytes(IG's)percentage and absolute count will include metamyelocytes, myelocytes, and promyelocytes. Blood smears from CBCs yielding IG's will be scanned manually for concordance. If this scan disagrees with the automated IG or if promyelocytes are noted, a manual differential will be performed. Immature Gran Absolute 0.02 0.00 - 0.04 x10(3)/mc L [facility] Blood 08/24/2022 1:00 AM EDT 08/24/2022 1:40 AM EDT Narrative Resulting Agency Comment Spec In Lab Meredith Root LEATHER SEASONER HEMATOLOGY ORDER JUDI Performing Organization Address City/[facility]/[place] [address] * (ABNORMAL) Hemogram (08/24/2022 1:00 AM EDT) White Blood Cell 5.2 4.0 - 9.5 x10(3)/mc L [facility] Red Blood Cell 2.74(L) 4.00 - 5.21 x10(6)/mc L [facility] Hemoglobin 8.9(L) 11.7 - 15.5 g/dL [facility] Hematocrit 25.5(L) 35.7 - 45.8 % [facility] Mean Cell Volume 93.1 82.6 - 94.4 fL [facility] Mean Cell Hemoglobin 32.5(H) 27.1 - 32.0 pg [facility] Mean Cell Hemoglobin Concentration 34.9 31.7 - 35.0 g/dL [facility] Platelet 182 145 - 357 x10(3)/mc L [facility] RDW Standard Deviation 39.6 37.0 - 46.0 fL [facility] RDW coefficient of variation 11.7 11.5 - 14.1 % [facility] Mean Platelet Volume 9.3 7.6 - 12.9 fL [facility] NRBC% auto 0.0 % [facility] NRBC Absolute 0.000 0.000 - 0.000 x10(3)/mc L [facility] Blood 08/24/2022 1:00 AM EDT 08/24/2022 1:40 AM EDT Narrative Resulting Agency Comment Spec In Lab Meredith Root LEATHER SEASONER HEMATOLOGY ORDER JUDI Performing Organization Address City/State/[facility] Co de Phone Number [facility] [place] [address] * Phosphorus (08/24/2022 1:00 AM EDT) Phosphorus 2.5 2.5 - 4.5 mg/dL [facility] Blood 08/24/2022 1:00 AM EDT 08/24/2022 1:40 AM EDT Narrative Resulting Agency Comment Spec In Lab Meredith E Dk LEATHER SEASONER CHEMISTRY ORDERA BLES Performing Organization Address City/[facility] Co de Phone Number [facility] [place] [address] * (ABNORMAL) Basic Metabolic Panel (non-fasting) (08/24/2022 1:00 AM EDT) Glucose 103 65 - 199 mg/dL [facility] Comment:Diabetes: >=200 mg/d L plus symptoms Blood Urea Nitrogen 10 8 - 18 mg/dL [facility] Creatinine 0.56(L) 0.70 - 1.20 mg/dL [facility] Sodium 132(L) 135 - 145 mmol/L [facility] Potassium 3.3(L) 3.5 - 5.0 mmol/L [facility] Comment: Please note: ??Patients with WBC >100,000 may have falsely elevated Potassium levels. ??For accurate Potassium quantification in these patients send serum separator tube (gold top) for subsequent determinations. ??Contact the Clinical Chemistry Laboratory if there are any questions. Chloride 97(L) 98 - 107 mmol/L [facility] Carbon Dioxide 24 22 - 31 mmol/L [facility] Anion Gap 11 5 - 15 mmol/L [facility] Calcium 8.2(L) 8.5 - 10.5 mg/dL [facility] Est Glomerular Filtration Rate 110 >=60 mL/min/1. 73 m?? [facility] Comment: This patient's estimated GFR [...] Agency Comment Spec In Lab Meredith Root LEATHER SEASONER CHEMISTRY ORDERA BLES [facility] [place] [address] * Magnesium (08/24/2022 1:00 AM EDT) Magnesium 0.80 0.69 - 1.07 mmol/L [facility] Blood 08/24/2022 1:00 AM EDT 08/24/2022 1:40 AM EDT Narrative Resulting Agency Comment Spec In Lab Meredith Root LEATHER SEASONER CHEMISTRY ORDERA BLES [facility] [place] [address] * (ABNORMAL) Basic Metabolic Panel (non-fasting) (08/23/2022 1:30 PM EDT) Glucose 101 65 - 199 mg/dL [facility] Comment:Diabetes: >=200 mg/d L plus symptoms Blood Urea Nitrogen 8 8 - 18 mg/dL [facility] Creatinine 0.57(L) 0.70 - 1.20 mg/dL [facility] Sodium 130(L) 135 - 145 mmol/L [facility] Potassium 3.6 3.5 - 5.0 mmol/L [facility] Comment: Please note: ??Patients with WBC >100,000 may have falsely elevated Potassium levels. ??For accurate Potassium quantification in these patients send serum separator tube (gold top) for subsequent determinations. ??Contact the Clinical Chemistry Laboratory if there are any questions. Chloride 95(L) 98 - 107 mmol/L [facility] Carbon Dioxide 23 22 - 31 mmol/L [facility] Anion Gap 12 5 - 15 mmol/L [facility] Calcium 8.4(L) 8.5 - 10.5 mg/dL [facility] Est Glomerular Filtration Rate 110 >=60 mL/min/1. 73 m?? [facility] Comment: This patient's estimated GFR [...] Comment Spec In Lab Meredith Jennifer Dk SOLORZANO CHEMISTRY ORDERA BLES [facility] [place] [address] * (ABNORMAL) Differential, Automated (08/23/2022 12:52 AM EDT) Neutrophil % 88.0 % [facility] Neutrophil Absolute 6.43(H) 1.70 - 6.10 x10(3)/mc L [facility] Lymph % 6.4 % [facility] Lymphocytes Abs 0.5(L) 0.9 - 3.2 x10(3)/mc L [facility] Monocyte % 4.9 % [facility] Monocyte Abs 0.4 0.3 - 0.9 x10(3)/mc L [facility] Eos % 0.1 % [facility] Eosinophils Abs 0.0 0.0 - 0.4 x10(3)/mc L [facility] Basophil % 0.3 % [facility] Baso Absolute 0.0 0.0 - 0.1 x10(3)/mc L [facility] Immature Gran % 0.30 % [facility] Comment: Immature granulocytes(IG's)percentage and absolute count will include metamyelocytes, myelocytes, and promyelocytes. Blood smears from CBCs yielding IG's will be scanned manually for concordance. If this scan disagrees with the automated IG or if promyelocytes are noted, a manual differential will be performed. Immature Gran Absolute 0.02 0.00 - 0.04 x10(3)/mc L [facility] Blood 08/23/2022 12:5 2 AM EDT 08/23/2022 1:00 AM EDT Narrative Resulting Agency Comment Spec In Lab Meredith Root APRN HEMATOLOGY ORDER JUDI [facility] [place] [address] * (ABNORMAL) Hemogram (08/23/2022 12:52 AM EDT) White Blood Cell 7.3 4.0 - 9.5 x10(3)/mc L [facility] Red Blood Cell 3.12(L) 4.00 - 5.21 x10(6)/mc L [facility] Hemoglobin 10.2(L) 11.7 - 15.5 g/dL [facility] Hematocrit 29.6(L) 35.7 - 45.8 % [facility] Mean Cell Volume 94.9(H) 82.6 - 94.4 fL [facility] Mean Cell Hemoglobin 32.7(H) 27.1 - 32.0 pg [facility] Mean Cell Hemoglobin Concentration 34.5 31.7 - 35.0 g/dL [facility] Platelet 216 145 - 357 x10(3)/mc L [facility] RDW Standard Deviation 41.1 37.0 - 46.0 fL [facility] RDW coefficient of variation 11.9 11.5 - 14.1 % [facility] Mean Platelet Volume 9.0 7.6 - 12.9 fL [facility] NRBC% auto 0.0 % [facility] NRBC Absolute 0.000 0.000 - 0.000 x10(3)/mc L [facility] Blood 08/23/2022 12:5 2 AM EDT 08/23/2022 1:00 AM EDT Narrative Resulting Agency Comment Spec In Lab Meredith Root APRN HEMATOLOGY ORDER JUDI Performing Organization Address City/[facility]/ZIP Co de Phone Number [facility] [place] [address] * Phosphorus (08/23/2022 12:52 AM EDT) Phosphorus 3.2 2.5 - 4.5 mg/dL [facility] Blood 08/23/2022 12:5 2 AM EDT 08/23/2022 1:00 AM EDT Narrative Resulting Agency Comment Spec In Lab Meredith Root LEATHER SEASONER CHEMISTRY ORDERA BLES [facility] [place] [address] * (ABNORMAL) Basic Metabolic Panel (non-fasting) (08/23/2022 12:52 AM EDT) Glucose 94 65 - 199 mg/dL [facility] Comment:Diabetes: >=200 mg/d L plus symptoms Blood Urea Nitrogen 7(L) 8 - 18 mg/dL [facility] Creatinine 0.65(L) 0.70 - 1.20 mg/dL [facility] Sodium 131(L) 135 - 145 mmol/L [facility] Potassium 3.7 3.5 - 5.0 mmol/L [facility] Comment: Please note: ??Patients with WBC >100,000 may have falsely elevated Potassium levels. ??For accurate Potassium quantification in these patients send serum separator tube (gold top) for subsequent determinations. ??Contact the Clinical Chemistry Laboratory if there are any questions. Chloride 96(L) 98 - 107 mmol/L [facility] Carbon Dioxide 25 22 - 31 mmol/L [facility] Anion Gap 10 5 - 15 mmol/L [facility] Calcium 8.4(L) 8.5 - 10.5 mg/dL [facility] Est Glomerular Filtration Rate 107 >=60 mL/min/1. 73 m?? [facility] Comment: This patient's estimated GFR [...] Agency Comment Spec In Lab Meredith Root LEATHER SEASONER CHEMISTRY ORDERA BLES [facility] [place] [address] * Magnesium (08/23/2022 12:52 AM EDT) Magnesium 0.88 0.69 - 1.07 mmol/L [facility] Blood 08/23/2022 12:5 2 AM EDT 08/23/2022 1:00 AM EDT Narrative Resulting Agency Comment Spec In Lab Meredith Root LEATHER SEASONER CHEMISTRY ORDERA BLES Performing Organization Address [facility] Co de Phone Number [facility] [place] [address] * XR Abdomen 1 view (Generic) (08/22/2022 [...] who have questions please contact the health senior care provider that requested your imaging first. ? Electronically signed by: LILY CELESTE MD, [facility] ([phone]), at 08/22/2022 6:52 PM Narrative 08/22/2022 6:52 PM EDT EXAMINATION: XR [...] patients who have questions please contactthe health senior care provider that requested your imaging first. Electronically signed by: LILY CELSETE MD, [facility]([phone]), at 08/22/2022 6:52 PM Meredith Root LEATHER SEASONER IMG DX ORDERABLE S * XR Chest [...] who have questions please contact the health senior care provider that requested your imaging first. ? Electronically signed by: LILY CELESTE MD, [facility] ([phone]), at 08/22/2022 5:39 PM Narrative 08/22/2022 5:39 [...] patients who have questions please contactthe health senior care provider that requested your imaging first. Electronically signed by: LILY CELESTE MD, [facility]([phone]), at 08/22/2022 5:39 PM Meredith Root APRN [...] who have questions please contact the health senior care provider that requested your imaging first. ? Electronically signed by: Nicki Castanon MD, [facility] ([phone]), at 08/22/2022 4:14 PM Narrative 08/22/2022 4:14 PM EDT EXAMINATION: XR ABDOMEN 1 VIEW (GENERIC) CLINICAL HISTORY: s/p NGT placement (as entered by ordering provider in the order requisition) TECHNIQUE: Portable supine AP view of the upper abdomen. The right lateral margin of the abdominal cavity and the lower abdomen and pelvis are excluded from the imaged [id number]. COMPARISON: Abdominal radiograph 08/22/2022. FINDINGS: This enteric [...] abdomen and pelvis are excluded from theimaged [id number]. COMPARISON: Abdominal radiograph 08/22/2022. FINDINGS: This enteric [...] patients who have questions please contactthe health senior care provider that requested your imaging first. Electronically signed by: Nicki Castanon MD, [facility]([phone]), at 08/22/2022 4:14 PM Meredith Root APRN IMG DX ORDERABLE S * (ABNORMAL) Vitamin B12 (08/22/2022 12:15 PM EDT) Vitamin B12 213(L) 232 - 1,245 pg/mL [facility] Blood 08/22/2022 12:1 5 PM EDT 08/22/2022 12:35 PM EDT Narrative Resulting Agency Comment Spec In Lab Meredith Root APRN CHEMISTRY ORDERA BLES [facility] [place] [address] * XR Abdomen 1 view (Generic) (08/22/2022 [...] who have questions please contact the health senior care provider that requested your imaging first. ? Electronically signed by: Parish Gomes MD, [facility] ([phone]), at 08/22/2022 12:12 PM --------ORIGINAL REPORT -------- [...] who have questions please contact the health senior care provider that requested your imaging first. ? Electronically signed by: Parish Gomes MD, [facility] ([phone]), at 08/22/2022 11:53 AM Impressions 08/22/2022 11:53 AM EDT Feeding tube is present with the tip in the right lower chest. Thank you for letting us participate in the care of this patient. ??If you are a health care provider and have any questions regarding this report, please contact the number below. ??For patients who have questions please contact the health senior care provider that requested your imaging first. ? Electronically signed by: Parish Gomes MD, [facility] ([phone]), at 08/22/2022 11:53 AM Narrative 08/22/2022 11:53 [...] patients who have questions please contactthe health senior care provider that requested your imaging first. Electronically signed by: Parish Gomes MD, [facility]([phone]), at 08/22/2022 11:53 AM Meredith Root LEATHER SEASONER IMG DX ORDERABLE S * EKG 12 Lead (08/22/2022 7:53 AM EDT) Ventricular rate 79 BPM MUSE SYSTEM Atrial Rate 79 BPM MUSE SYSTEM P-R Interval 134 ms MUSE SYSTEM QRS Duration 80 ms MUSE SYSTEM Q-T Interval 356 ms MUSE SYSTEM QTC Calculated (Bezet) 408 ms MUSE SYSTEM Calculated P [place] 88 degrees MUSE SYSTEM Calculated R [place] 11 degrees MUSE SYSTEM Calculated T [place] 35 degrees MUSE SYSTEM INTERPRETATION Normal sinus rhythm with sinus arrhythmia Nonspecific T wave abnormality Abnormal ECG No previous ECGs available Confirmed by fellow MD Archie, Dana ([id number]) on 08/22/2022 9:42:40 AM Confirmed by MD Uribe Hannah ([id number]) on 08/23/2022 8:30:17 AM MUSE SYSTEM 08/22/2022 7:53 AM EDT 08/23/2022 8:30 AM EDT Meredith Jennifer Simpsonjennifer SOLORZANO ECG ORDERABLES MUSE SYSTEM * (ABNORMAL) Differential, Automated (08/22/2022 1:10 AM EDT) Neutrophil % 90.2 % [facility] Neutrophil Absolute 5.93 1.70 - 6.10 x10(3)/mc L [facility] Lymph % 3.7 % [facility] Lymphocytes Abs 0.2(L) 0.9 - 3.2 x10(3)/mc L [facility] Monocyte % 5.6 % [facility] Monocyte Abs 0.4 0.3 - 0.9 x10(3)/mc L [facility] Eos % 0.0 % [facility] Eosinophils Abs 0.0 0.0 - 0.4 x10(3)/mc L [facility] Basophil % 0.2 % [facility] Baso Absolute 0.0 0.0 - 0.1 x10(3)/mc L [facility] Immature Gran % 0.30 % [facility] Comment: Immature granulocytes(IG's)percentage and absolute count will include metamyelocytes, myelocytes, and promyelocytes. Blood smears from CBCs yielding IG's will be scanned manually for concordance. If this scan disagrees with the automated IG or if promyelocytes are noted, a manual differential will be performed. Immature Gran Absolute 0.02 0.00 - 0.04 x10(3)/mc L [facility] Blood 08/22/2022 1:10 AM EDT 08/22/2022 1:15 AM EDT Narrative Resulting Agency Comment Spec In Lab Mayelin Hoskins MD HEMATOLOGY ORDERABL ES Performing Organization Address City/[facility]/ZIP Co de Phone Number [facility] [place] [address] * (ABNORMAL) Hemogram (08/22/2022 1:10 AM EDT) White Blood Cell 6.6 4.0 - 9.5 x10(3)/mc L [facility] Red Blood Cell 2.87(L) 4.00 - 5.21 x10(6)/mc L [facility] Hemoglobin 9.5(L) 11.7 - 15.5 g/dL [facility] Hematocrit 27.6(L) 35.7 - 45.8 % [facility] Mean Cell Volume 96.2(H) 82.6 - 94.4 fL [facility] Mean Cell Hemoglobin 33.1(H) 27.1 - 32.0 pg [facility] Mean Cell Hemoglobin Concentration 34.4 31.7 - 35.0 g/dL [facility] Platelet 202 145 - 357 x10(3)/mc L [facility] RDW Standard Deviation 42.1 37.0 - 46.0 fL [facility] RDW coefficient of variation 11.9 11.5 - 14.1 % [facility] Mean Platelet Volume 9.1 7.6 - 12.9 fL [facility] NRBC% auto 0.0 % [facility] NRBC Absolute 0.000 0.000 - 0.000 x10(3)/ L [facility] Blood 08/22/2022 1:10 AM EDT 08/22/2022 1:15 AM EDT Narrative Resulting Agency Comment Spec In Lab Mayelin Hoskins MD HEMATOLOGY ORDERABL ES [facility] [place] [address] * Phosphorus (08/22/2022 1:10 AM EDT) Phosphorus 2.7 2.5 - 4.5 mg/dL [facility] Blood 08/22/2022 1:10 AM EDT 08/22/2022 1:15 AM EDT Narrative Resulting Agency Comment Spec In Lab Roberth Lee MD CHEMISTRY ORDERABL ES [facility] [place] [address] * (ABNORMAL) Magnesium (08/22/2022 1:10 AM EDT) Magnesium 0.66(L) 0.69 - 1.07 mmol/L [facility] Blood 08/22/2022 1:10 AM EDT 08/22/2022 1:15 AM EDT Narrative Resulting Agency Comment Spec In Lab Roberth Lee MD CHEMISTRY ORDERABL ES [facility] [place] [address] * (ABNORMAL) Basic Metabolic Panel (non-fasting) (08/22/2022 1:10 AM EDT) Glucose 149 65 - 199 mg/dL [facility] Comment:Diabetes: >=200 mg/d L plus symptoms Blood Urea Nitrogen 6(L) 8 - 18 mg/dL [facility] Creatinine 0.64(L) 0.70 - 1.20 mg/dL [facility] Sodium 136 135 - 145 mmol/L [facility] Potassium 4.2 3.5 - 5.0 mmol/L [facility] Comment: Please note: ??Patients with WBC >100,000 may have falsely elevated Potassium levels. ??For accurate Potassium quantification in these patients send serum separator tube (gold top) for subsequent determinations. ??Contact the Clinical Chemistry Laboratory if there are any questions. Chloride 102 98 - 107 mmol/L [facility] Carbon Dioxide 26 22 - 31 mmol/L [facility] Anion Gap 8 5 - 15 mmol/L [facility] Calcium 8.8 8.5 - 10.5 mg/dL [facility] Est Glomerular Filtration Rate 107 >=60 mL/min/1. 73 m?? [facility] Comment: This patient's estimated GFR [...] MD CHEMISTRY ORDERABL ES Performing Organization Address [facility]/ZIP Co de Phone Number [facility] [place] [address] * POCT Glucose (08/21/2022 8:37 PM EDT) Glucose, POC 172 65 - 199 mg/dL [facility] Comment: Supplemental ranges: <140 mg/dL before meals <180 mg/dL all other times of the day Blood 08/21/2022 8:37 PM EDT 08/21/2022 8:37 PM EDT Roberth Lee MD POINT OF CARE TEST ORDERABLES Performing Organization Address [facility] Co de Phone Number [facility] [place] [address] * (ABNORMAL) BLOOD GAS 2 ARTERIAL (08/21/2022 5:24 PM EDT) pH, Arterial 7.39 7.35 - 7.45 [facility] PCO2, Arterial 34(L) 35 - 45 mmHg [facility] PO2, Arterial 181(H) 85 - 104 mmHg [facility] Bicarbonate, Arterial 20.1 20.0 - 26.0 mmol/L [facility] Base Excess, Arterial -4.8(L) -3.0 - 3.0 mmol/L [facility] Hgb Blood Gas 11.0(L) 11.7 - 15.5 g/dL [facility] Oxyhemoglobin, Arterial 98.6(H) 94.0 - 97.0 % [facility] Carboxyhemoglob in, Arterial 0.3 % [facility] Comment: Nonsmokers: 0.5-1.5% COHB Smokers: Variable, but usually less than 10% Toxic: 20-30% COHB Lethal: Greater than 60% COHB Methemoglobin, Arterial 0.0 <=1.5 % [facility] Na Whole Blood 134(L) 135 - 145 mmol/L [facility] K Whole Blood 3.6 3.5 - 5.0 mmol/L [facility] Comment: Please note: Patients with WBC >100,000 may have falsely elevated Potassium levels. Contact the Clinical Chemistry Laboratory if there are any questions. ICa Whole Blood 1.05(L) 1.15 - 1.33 mmol/L [facility] Comment: Note: ??Total bilirubin higher than 20 mg/dL may lead to falsely low ionized calcium. CL Whole Blood 106 98 - 107 mmol/L [facility] Gluc Whole Bld 126 65 - 199 mg/dL [facility] Comment:Diabetes: >=200 mg/d L plus symptoms. Lactate WB 1.2 0.5 - 2.2 mmol/L [facility] Blood 08/21/2022 5:24 PM EDT 08/21/2022 5:24 PM EDT Roberth Lee MD POINT OF CARE TEST ORDERABLES Performing Organization Address [facility] Co de Phone Number [facility] [place] [address] * Specimen to Pathology (08/21/2022 2:13 PM EDT) AP Specimen 08/21/2022 2:13 PM EDT 08/21/2022 2:13 PM EDT Narrative [facility] - 08/21/2022 2:13 PM EDT Specimen requisition ordered. ??Separate Pathology report to follow Roberth Lee MD PATHOLOGY/CYTOLOGY ORDERABLES Performing Organization Address City/[facility]/ZIP Co de Phone Number [facility] [place] [address] * Specimen to Pathology (08/21/2022 2:13 PM EDT) AP Specimen 08/21/2022 2:13 PM EDT 08/21/2022 2:13 PM EDT Narrative [facility] - 08/21/2022 2:13 PM EDT Specimen requisition ordered. ??Separate Pathology report to follow Roberth Lee MD PATHOLOGY/CYTOLOGY ORDERABLES [facility] [place] [address] * (ABNORMAL) BLOOD GAS 2 ARTERIAL (08/21/2022 1:27 PM EDT) pH, Arterial 7.42 7.35 - 7.45 [facility] PCO2, Arterial 35 35 - 45 mmHg [facility] PO2, Arterial 162(H) 85 - 104 mmHg [facility] Bicarbonate, Arterial 22.5 20.0 - 26.0 mmol/L [facility] Base Excess, Arterial -2.5 -3.0 - 3.0 mmol/L [facility] Hgb Blood Gas 12.7 11.7 - 15.5 g/dL [facility] Oxyhemoglobin, Arterial 98.8(H) 94.0 - 97.0 % [facility] Carboxyhemoglob in, Arterial 0.2 % [facility] Comment: Nonsmokers: 0.5-1.5% COHB Smokers: Variable, but usually less than 10% Toxic: 20-30% COHB Lethal: Greater than 60% COHB Methemoglobin, Arterial 0.3 <=1.5 % [facility] Na Whole Blood 129(L) 135 - 145 mmol/L [facility] K Whole Blood 3.6 3.5 - 5.0 mmol/L [facility] Comment: Please note: Patients with WBC >100,000 may have falsely elevated Potassium levels. Contact the Clinical Chemistry Laboratory if there are any questions. ICa Whole Blood 1.13(L) 1.15 - 1.33 mmol/L [facility] Comment: Note: ??Total bilirubin higher than 20 mg/dL may lead to falsely low ionized calcium. CL Whole Blood 104 98 - 107 mmol/L [facility] Gluc Whole Bld 123 65 - 199 mg/dL [facility] Comment:Diabetes: >=200 mg/d L plus symptoms. Lactate WB 1.2 0.5 - 2.2 mmol/L [facility] FIO2 Art 56 % [facility] Flow Art 1.0 LPM [facility] PF Ratio Art 289 [facility] Temp Art 34.5 Celsius [facility] Blood 08/21/2022 1:27 PM EDT 08/21/2022 1:27 PM EDT Roberth Lee MD POINT OF CARE TEST ORDERABLES [facility] [address] [place] [place] [address] * (ABNORMAL) BLOOD GAS 2 ARTERIAL (08/21/2022 10:51 AM EDT) pH, Arterial 7.46(H) 7.35 - 7.45 [facility] PCO2, Arterial 32(L) 35 - 45 mmHg [facility] PO2, Arterial 75(L) 85 - 104 mmHg [facility] Bicarbonate, Arterial 23.0 20.0 - 26.0 mmol/L [facility] Base Excess, Arterial -1.6 -3.0 - 3.0 mmol/L [facility] Hgb Blood Gas 13.4 11.7 - 15.5 g/dL [facility] Oxyhemoglobin, Arterial 96.0 94.0 - 97.0 % [facility] Carboxyhemoglob in, Arterial 0.2 % [facility] Comment: Nonsmokers: 0.5-1.5% COHB Smokers: Variable, but usually less than 10% Toxic: 20-30% COHB Lethal: Greater than 60% COHB Methemoglobin, Arterial 0.3 <=1.5 % [facility] Na Whole Blood 134(L) 135 - 145 mmol/L [facility] K Whole Blood 4.0 3.5 - 5.0 mmol/L [facility] Comment: Please note: Patients with WBC >100,000 may have falsely elevated Potassium levels. Contact the Clinical Chemistry Laboratory if there are any questions. ICa Whole Blood 1.18 1.15 - 1.33 mmol/L [facility] Comment: Note: ??Total bilirubin higher than 20 mg/dL may lead to falsely low ionized calcium. CL Whole Blood 103 98 - 107 mmol/L [facility] Gluc Whole Bld 121 65 - 199 mg/dL [facility] Comment:Diabetes: >=200 mg/d L plus symptoms. Lactate WB 1.0 0.5 - 2.2 mmol/L [facility] FIO2 Art 66 % [facility] Flow Art 0.8 LPM [facility] PF Ratio Art 114 [facility] Temp Art 34.0 Celsius [facility] Blood 08/21/2022 10:5 1 AM EDT 08/21/2022 10:51 AM EDT Roberth Lee MD POINT OF CARE TEST ORDERABLES Performing Organization Address [facility] Co de Phone Number [facility] [place] [address] * Specimen to Pathology (08/21/2022 10:30 AM EDT) AP Specimen 08/21/2022 10:3 0 AM EDT 08/21/2022 10:31 AM EDT Narrative [facility] - 08/21/2022 10:31 AM EDT Specimen requisition ordered. ??Separate Pathology report to follow Roberth Lee MD PATHOLOGY/CYTOLOGY ORDERABLES Performing Organization Address [facility] [place] [address] * Surgical Pathology Report (08/21/2022 10:26 AM EDT) Final Diagnosis [id number] ? Location: [id number]; N520; A The signing [...] focal marrow fat necrosis. Electronically signed by: ?Aida TAYLOR, Erinn Reina Verified: ??08/31/2022 12:44 ??Pathologist Performed at: ??-[facility] Dept. of Pathology, [place] [address] Systems Spec: Ramírez Arredondo MD, FCAP, ??CLIA Certificate: [id number] DISCUSSION B1: ??The lymph node contains benign [...] Sections/Processi ng: Blocks submitted for decalcification: D1-D5. Curriculum Development Manager sections in 5 cassettes as follows: ?D1: ??Left mandibular margin en face ?D2: ??Right mandibular margin en face ?D3: ??Skin with fistula tract and underlying bone ?D4-D5: ??Curriculum Development Manager dull to chalky yellow cut surfaces ??jnr 08/31/2022 12:44 PM EDT [facility] BONE STRUCTURE OF MANDIBLE / Unknown 08/21/2022 10:26 AM EDT 08/21/2022 10:26 AM EDT LYMPH NODE SPECIMEN / Unknown 08/21/2022 10:26 AM EDT 08/21/2022 10:26 AM EDT MOUTH REGION STRUCTURE / Unknown 08/21/2022 10:26 AM EDT 08/21/2022 10:26 AM EDT BONE STRUCTURE OF MANDIBLE / Unknown 08/21/2022 10:26 AM EDT 08/21/2022 10:26 AM EDT Roberth Lee MD PATHOLOGY/CYTOLOGY ORDERABLES [facility] [place] [address] [facility] [place] [address] * Specimen to Pathology (08/21/2022 10:26 AM EDT) AP Specimen 08/21/2022 10:2 6 AM EDT 08/21/2022 10:26 AM EDT Narrative [facility] - 08/21/2022 10:26 AM EDT Specimen requisition ordered. ??Separate Pathology report to follow Roberth Lee MD PATHOLOGY/CYTOLOGY ORDERABLES [facility] [place] [address] * SCAN DOC: IMPLANTABLE DEVICES (08/21/2022 12:00 [...] LPN)2099 (Given - Provider: Jada Chávez RN) 09 (Given - Provider: Per Meza RN)2099 (Given - Provider: Jada Chávez RN) 0900 (Not Given - Provider: Didier Perry RN - Reason: Patient/family refused) ketorolac (Toradol) (15 mg/mL) injection 15 mg (COMPLETED) 15 mg, Intravenous, EVERY 6 HOURS, 3 doses, First dose on Sun09/05/22 at 1815, Last dose on Sun09/06/22 at 0615, Routine 7 (Given - Provider: Araceli Velasco RN)617 (Given - Provider: Araceli Velasco RN) levothyroxine [...] Administer on own to promote absorption, Routine 36 (Given - Provider: Jada Chávez RN) 06 (Given - Provider: Jada Chávez RN) lidocaine (Lidoderm) 5% patch 2 patch 2 patch, Transdermal, Administer over 12 Hours, EVERY 24 HOURS, First dose on Sun08/21/22 at 2100, Until Discontinued, Apply patch(es) for 12 hours, and then remove for 12 hours., Routine 2107 (Patch Applied - Provider: Jada Chávez RN) 0600 (Patch Removed - Provider: Jada [...] Chávez RN) 0953 (Given - Provider: Per Meza, FUENTES)2103 (Given - Provider: Jada Chávez RN) 0833 [...] RN) 0952 (Given - Provider: Per Meza RN)210 (Given - Provider: Jada Chávez RN) 0832 (Given - Provider: Didier Perry, FUENTES) protein powder 1 Scoop, Per G Tube, 2 TIMES DAILY, First dose on Sun09/06/22 at 1000, Until Discontinued, Routine 1209 (Given - Provider: Theresa Merino RN)1700 (Given - Provider: Theresa Merino RN) 0900 (Given - Provider: Per Meza, RN)1700 (Given - Provider: Per Meza RN) 0900 (Given - Provider: Didier Perry, [...] Meza, RN)1300 (New Bag - Provider: Per Meza RN)1700 (New Bag - Provider: Per Meza RN)2100 (New Bag - Provider: Jada Chávez, RN) 0847 (New Bag - Provider: Didier Perry, FUENTES)1300 (New Bag - Provider: Per Meza, RN) PRN Medication Order 09/06/2022 09/07/2022 09/08/2022 cyclobenzaprine (Flexeril) tablet 5 mg 5 mg, Per G Tube, 3 TIMES DAILY PRN, Starting on Sun09/06/22 at 0908, Until Sun09/08/22 at 1620, Muscle spasms, Routine 0248 (Given - Provider: Jada Chávez, FUENTES) diazePAM (Valium) (5 mg/mL) injection solution 2.5 [...] Sleep, Routine 0042 (Given - Provider: Jada Chávez, FUENTES) HYDROmorphone (Dilaudid) (0.5 mg/0.5 mL) injection syringe [...] Chávez RN)0647 (Given - Provider: Jada Chávez RN)105 (Given - Provider: Per Meza, RN)160 (Given - Provider: Per Meza, RN)2014 (Given - Provider: Jada Chávez RN) 41 (Given - Provider: Jada Chávez RN)044 (Given - Provider: Jada Chávez RN) oxyCODONE [...] 246 (See Alternative - Provider: Jada Chávez RN)0647 (See Alternative - Provider: Jada Chávez RN)105 [...] documented in this encounter Care Teams Manager Office Services Relationship Specialty Start Date End Date Dev, Tita Butt APRN [address] [facility] [address] [place] [address] PCP - General Internal Medicine 05/15/22 documented as of this encounter
--- OUTSIDE RECORDS SUMMARY | 2023-12-08 20:01 | XMS_ITS | Encounter Summary ---
Author Organization [facility] [place] [address] Care Team Providers Care Rn Family Practice Name Role Phone Lauren Pires APRN Primary Care Provider [phone] -[phone] Encounter Details Date Type Department Care Team (Late st Contact Info) Description 05/03/2022 Orders [place] [phone] Juanita Walters RN Social History Tobacco Use Types Packs/Day [...] on filedocumented in this encounter Care Teams Rn Family Practice Relationship Specialty Start Date End Date Lauren Pires APRN [address] [place] [address] PCP - General Family Medicine 10/13/21 05/14/22 documented as of this encounter
--- OUTSIDE RECORDS SUMMARY | 2023-12-08 20:01 | XMS_ITS | Encounter Summary ---
[place] [address] Care Team Providers Care Safety Engineer Name Role Phone DevTita APRN Primary Care Provider +1- [phone] Encounter Details Date Type Department Care Team (Late st Contact Info) Description 05/19/2022 Tele[place] [phone] Tori Muhammad, RN Social History Tobacco Use [...] on filedocumented in this encounter Care Teams Safety Engineer Relationship Specialty Start Date End Date DevTita APRN [address] [place], [place] [address] PCP - General Internal Medicine 05/15/22 documented as of this encounter
--- OUTSIDE RECORDS SUMMARY | 2023-12-08 20:01 | XMS_ITS | Encounter Summary ---
Author Organization [facility] Address [facility] [place] [address] Care Team Providers Care Senior Ui Ux Developer Name Role Phone Lauren Pires APRN Primary Care Provider [phone] -[phone] Encounter Details Date Type Department Care Team (Late st Contact Info) Description 12/26/2021 Orders Only [place] [address] Hermelindo Kearney PA [facility] [place] [address] Social History Tobacco Use Types Packs/Day Years [...] filedocumented in this encounter Care Teams Senior Ui Ux Developer Relationship Specialty Start Date End Date Lauren Pires APRN [address] [place], [place] [id number] PCP - General Family Medicine 10/13/21 05/14/22 documented as of this encounter
--- OUTSIDE RECORDS SUMMARY | 2023-12-08 20:01 | XMS_ITS | Encounter Summary ---
[place] [address] Care Team Providers Care Vp Respiratory Name Role Phone DevTita APRN Primary Care Provider +1- [phone] Encounter Details Date Type Department Care Team (Late st Contact Info) Description 06/26/2022 Telephone [place] [address] Terri Nance Social History Tobacco Use Types [...] * Telephone Encounter - Terri Nance - 06/26/2022 12:24 PM EDT Ruchi, Patient is scheduled to have surgery on 08/21/2022 . Follow up appointment is as follows: Combo case with Berenice Ramirez Freed Follow up = 7-10 days post discharge with [facility]. Thank you!! documented in this encounter Plan of Treatment Not on file documented as of this encounter Visit Diagnoses Not on filedocumented in this encounter Care Teams Vp Respiratory Relationship Specialty Start Date End Date Dev, Tita Butt APRN [address] [facility] [address] [place] [address] PCP - General Internal Medicine 05/15/22 documented as of this encounter
--- OUTSIDE RECORDS SUMMARY | 2023-12-08 20:01 | XMS_ITS | Encounter Summary ---
Author Organization [facility] [place] [address] Care Team Providers Care Hand Tool Lapper Name Role Phone Tita Méndez APRN Primary Care Provider +1- [phone] Encounter Details Date Type Department Care Team (Latest Contact Info) Description 05/15/2022 Travel Social History Tobacco Use Types Packs/Day [...] on filedocumented in this encounter Care Teams Hand Tool Lapper Relationship Specialty Start Date End Date Tita Méndez APRN [address] [place], [place] [address] PCP - General Internal Medicine 05/15/22 documented as of this encounter
--- OUTSIDE RECORDS SUMMARY | 2023-12-08 20:01 | XMS_ITS | Encounter Summary ---
Author Organization [place] [address] Care Team Providers Care Manager Employee Relations Name Role Phone Lauren Pires APRN Primary Care Provider +1 -[phone] Encounter Details Date Type Department Care Team (Latest Contact Info) Description 03/09/2022 Travel Social History Tobacco Use Types Packs/Day [...] on filedocumented in this encounter Care Teams Manager Employee Relations Relationship Specialty Start Date End Date Lauren Pires APRN [address] [place] [address] PCP - General Family Medicine 10/13/21 05/14/22 documented as of this encounter
--- OUTSIDE RECORDS SUMMARY | 2023-12-08 20:01 | XMS_ITS | Encounter Summary ---
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 Message sent to Dr. Lee. documented in this encounter Plan of Treatment Not on file documented as of this encounter Visit Diagnoses Not on filedocumented in this encounter Care Teams Grinder Set Up Operator Thread Relationship Specialty Start Date End Date Lauren Pires APRN [address] [email or web address] [address] [place] [address] PCP - General Family Medicine 10/13/21 05/14/22 documented as of this encounter
--- OUTSIDE RECORDS SUMMARY | 2023-12-08 20:01 | XMS_ITS | Encounter Summary ---
Author Organization [facility] Address [facility] [place] [address] Care Team Providers Care Citrus Fruit Packer Name Role Phone Lauren Pires APRN Primary Care Provider +1 -[phone] Encounter Details Date Type Department Care Team (Late st Contact Info) Description 03/30/2022 Orders Only [place] [address] Keyur Ng MD [facility] [place] [address] Social History Tobacco Use Types Packs/Day Years [...] on filedocumented in this encounter Care Teams Citrus Fruit Packer Relationship Specialty Start Date End Date Lauren Pires APRN [address] [place] [address] PCP - General Family Medicine 10/13/21 05/14/22 documented as of this encounter
--- OUTSIDE RECORDS SUMMARY | 2023-12-08 20:01 | XMS_ITS | Encounter Summary ---
Author Organization [facility] Address [facility] [place] [address] Care Team Providers Care Protective Signal Installer Helper Name Role Phone DevTita APRN Primary Care Provider +1- [phone] Reason for Visit * Reason Comments Medication Refill Encounter Details Date Type Department Care Team (Late st Contact Info) Description 07/30/2022 Refill [place] [address] Evelio Gimenez MD [facility] [place] [address] Social History Tobacco Use Types Packs/Day Years [...] on filedocumented in this encounter Care Teams Protective Signal Installer Helper Relationship Specialty Start Date End Date Tita Méndez APRN [address] [place], [place] [id number] PCP - General Internal Medicine 2/27/23 documented as of this encounter
--- OUTSIDE RECORDS SUMMARY | 2023-12-08 20:01 | XMS_ITS | Encounter Summary ---
Author Organization [facility] [place] [address] Care Team Providers Care Quick Service Technician Name Role Phone Ronn Marck VALENTIN Primary Care Provider [phone] Reason for Referral * Consultation (Routine) - Closed Specialty Diagnoses / Procedures Referred By Shirley t Referred To Contact Plastic Surgery Diagnoses Otorrhea of left ear Osteonecrosis of mandible H/O tongue cancer Roberth Little MD [facility] DR OTOLARYNGOLOGY [place] [address] Cheo Laguna MD [facility] DR PLASTIC SURGERY [place] [address] Referral ID Status Reason Start Date Expiration Date V isits Requested Visits Authorized [id number] Closed Consult, Test & Treat 09/05/2021 09/05/2022 1 1 Reason for Visit * Reason Comments Follow-up F/u. Left ear still bothering her? * Consultation (Routine) - Closed Specialty Diagnoses / Procedures Referred By Shirley t Referred To Contact Otolaryngology Diagnoses Superficial mycosis, unspecified Chronic mycotic otitis externa Christina Vang, CALLY [address] [place] [id number] [facility] Otolaryngology [address] [place] [address] Referral ID Status Reason Start Date Expiration Date V isits Requested Visits Authorized [id number] Closed Consult, Test & Treat PCP Updated and/or Approved 08/25/2021 08/25/2022 6 6 Encounter Details Date Type Department Care Team (Late st Contact Info) Description 09/05/2021 9:20 AM EDT Office Visit [place] [address] Roberth Little MD [facility] OTOLARYNGOLOGY [place] [address] Otorrhea of left ear; Osteonecrosis of mandible; H/O tongue cancer Social History Tobacco Use Types Packs/Day [...] - Inhaled Oxygen Concentration - - Weight 46.1 kg (101 lb 11.2 oz) 09/05/2021 9:08 AM EDT Height 157.5 cm (5' 2) 09/05/2021 9:08 AM EDT Body Mass Index 18.6 09/05/2021 9:08 AM EDT documented in this encounter Progress Notes * Roberth Little MD - 09/05/2021 9:20 AM EDT [facility] OTOLARYNGOLOGY HEAD AND NECK TUMOR CLINIC FOLLOW UP NOTE Theresa Hollis is a 51 y.o. female followed for: Primary site: Left lateral tongue Stage: [id number] Surgery(ies): 10/31/06 - Hemiglossectomy, left neck dissection 1-5, skin graft, allograft Radiation: TREATMENT STARTED: 11/28/06 TREATMENT COMPLETED: 01/14/07 TREATMENT: The total maximum dose was 6600 cGy in 33 fractions. Volume reductions were instituted at 5400 cGy in 30 fractions &??6000 cGy in 30 fractions. Chemotherapy: Concurrent cisplatin?? New issues since last visit: Has intermittent drainage from the chin region. Seems worse whenever she eats. Also still having drainage from the left ear. PROBLEM LIST Patient Active Problem List Diagnosis Code ??? 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 Tongue cancer C02.9 ??? Tinnitus H93.19 ??? History of tongue cancer Z85.810 ??? Radiation injury T66.XXXA ??? DIFFICULT AIRWAY T88.4XXA ??? Periodontal disease K05.6 ??? Depressive disorder F32.A ??? 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 Pathological fracture of mandible with routine healing M84.48XD ??? Family hx-breast malignancy Z80.3 ??? Carpal tunnel syndrome G56.00 ??? Dental abscess K04.7 ??? Facial abscess L02.01 ??? Hyperlipidemia E78.5 ??? Neck muscle spasm M62.838 ??? Throat discomfort R07.0 PAST MEDICAL HISTORY Past Medical History: Diagnosis Date ??? Allergic rhinitis ??? Allergy ??? Cancer of head ??? Cancer of head, face, and neck ??? Carpal tunnel syndrome 10/29/2020 ??? 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 Herpes Chickenpox as child. ??? Hyperlipidemia ??? Hypothyroidism SOCIAL HISTORY Social History Tobacco Use ??? Smoking status: Never Smoker ??? Smokeless tobacco: Never Used Substance Use Topics ??? Alcohol use: Not Currently Comment: seldom, 4 drinks per year MEDICATIONS Current Outpatient Medications on File Prior to Visit Medication Sig Dispense Refill ??? clotrimazole (LOTRIMIN) 1 % Solution Apply topically 2 times daily. Apply 5 gtts to left ear bid x 14 days 30 mL 0 ??? amoxicillin-clavulanate (Augmentin) 500-125 mg Tablet Take 1 tablet by mouth 2 times daily. 60 tablet 5 ??? triamcinolone acetonide (Kenalog) 0.1 % Paste Place 1 each onto teeth 2 times daily. (Patient taking differently: Place 1 each onto teeth as needed.) 5 g 12 ??? levothyroxine (Synthroid) 88 mcg Tablet Take 1 tablet by mouth daily. (Patient taking differently: Take 88 mcg by mouth daily. On Sundays: takes 1.5 tablets.) 90 tablet 3 ??? acetaminophen (Tylenol) 160 mg/5 mL Suspension Take 15 mg/kg/dose by mouth as needed for Fever. ??? ibuprofen (ADVIL;MOTRIN) 100 mg/5 mL Suspension Take by mouth every 4 hours as needed for Fever. ??? nystatin (Mycostatin) 100,000 unit/mL Suspension Take 5 mLs by mouth 4 times daily. (Patient not taking: Reported on 09/05/2021) 60 mL 3 ??? fluocinolone and shower cap (Broughton-Smoothe/FS Scalp Oil) 0.01 % Oil Apply topically to scalp under shower cap nightly for up to 2 weeks for flares then 1- 3 times weekly prn maintenance. (Patient not taking: Reported on 09/05/2021) 118 mL 3 ??? ketoconazole (Nizoral) 2 % Cream Apply topically 2 times daily as needed. For rash on face and/or ears (Patient not taking: No sig reported) 30 g 3 ??? triamcinolone (Kenalog) 0.1 % Cream Apply topically to itchy areas on the torso and extremitiesfor up to 14 days per month. Avoid face, skin folds, and genitals. (Patient not taking: No sig reported) 45 g 0 ??? tacrolimus (Protopic) 0.1 % Ointment Apply topically to affected areas on the face twice daily as needed. (Patient not taking: No sig reported) 60 g 3 ??? pimecrolimus (Elidel) 1 % Cream Apply topically to affected areas on the face twice daily as needed. (Patient not taking: No sig reported) 30 g 1 ??? hypromellose (SYSTANE GEL OPHT) Apply to eye 2 times daily. No current facility-administered medications on file prior to visit. ALLERGIES Allergies Allergen Reactions ??? Allergenic Iluszem-Izsd-Ovjtn Itching Applesauce ??? Peanut Itching ??? Benzocaine Made pt tongue red and angry. Irritant reaction - allergy testing negative ??? Birch Other (See Comments) Birch pollen: wheezing and throat constriction ROS Pertinent positive findings discussed above. No other findings on review of constitutional visual, cardiovascular, respiratory, gastrointestinal, genitourinary, musculoskeletal, dermatologic, neurological, psychiatric, endocrine, hematologic or immunologic systems. PHYSICAL EXAMINATION Wt Readings from Last 3 Encounters: 09/05/21 46.1 kg (101 lb 11.2 oz) 08/18/21 43.1 kg (95 lb) 07/04/21 43.1 kg (95 lb) General: Well developed, no distress Head/face: Normocephalic, atraumatic Ears: Left ear with mucoid debris, no fungal elements, TM intact Oral cavity: No evidence of recurrence. There is exposed bone along the lingual aspect of the mandible which is a new finding, left anterior. Oropharynx: IDL with normal tongue base and larynx Neck: No adenopathy. No drainage from chin currently. Resp: Post glossectomy speech, no stridor, normal respirations. Skin: Normal skin survey of the head and neck. MSK: Mild trismus, normal neck range of motion Neuro: AxOx3; CN II-XII is grossly intact Psych: Normal mood and affect. Responds appropriately to questions. PROCEDURES Procedure Otomicroscopy with debridement Indication Otitis externa Side Left ear Description Informed verbal consent obtained. Using the binocular operating microscope, ear speculum and a combination of curettes, alligators, and suction, cerumen was removed from the affected ear. Findings Right ear n/a Left ear Debris in ear debrided with suction, TM intact, no fungal eliments REVIEW OF IMAGES None ASSESSMENT/RECOMMENDATIONS ORN mandible: There has been progression. We discussed resection, fibula and implants. She is interested in pursuing this next summer. Will make arrangements for her to see Dr. Ng and Dr. Laguna. Left otitis externa. Debrided ear today, called in vosol drops. Follow up in 7- 10 days for repeat ear cleaning. I appreciate the opportunity to be involved in Ms. Hollis's care. ROBERTH LITTLE MD 09/05/2021 documented in this encounter Plan of Treatment Scheduled Referrals Name Type Priority Associated Diagnoses Orde r Schedule Referral to Plastic Surgery Outpatient Referral Routine Otorrhea of left ear Osteonecrosis of mandible H/O tongue cancer Ordered: 09/05/2021 documented as of this encounter Visit Diagnoses Diagnosis Otorrhea of left ear Otorrhea, unspecified Osteonecrosis of mandible Aseptic necrosis of other bone site H/O tongue cancer Personal history of malignant neoplasm of tongue documented in this encounter Care Teams Quick Service Technician Relationship Specialty Start Date End Date Marck Brody DO [address] [place] [address] PCP - General 02/08/10 10/12/21 documented as of this encounter
--- OUTSIDE RECORDS SUMMARY | 2023-12-08 20:01 | XMS_ITS | Encounter Summary ---
Author Organization [facility] [place] [address] Care Team Providers Care Scouring Train Operator Name Role Phone DevTita APRN Primary Care Provider [phone] Reason for Visit * Reason Onset Date Comments Medication Refill 05/21/2022 Encounter Details Date Type Department Care Team (Late st Contact Info) Description 05/21/2022 [place] [id number] Hermelindo Kearney PA [facility] [place] [address] Thrush Social History Tobacco Use Types Packs/Day Years [...] as of this encounter Visit Diagnoses Diagnosis Thrush Candidiasis of mouth documented in this encounter Care Teams Scouring Train Operator Relationship Specialty Start Date End Date Tita Méndez APRN [address] [place] [address] PCP - General Internal Medicine 05/15/22 documented as of this encounter
--- OUTSIDE RECORDS SUMMARY | 2023-12-08 20:01 | XMS_ITS | Encounter Summary ---
Author Organization [facility] [place] [address] Care Team Providers Care Engineering Drafter Name Role Phone Dev, Tita Butt APRN Primary Care Provider [phone] Reason for Visit * Reason Comments Follow-up Finalize surgical pl ans for mandibular recon Encounter Details Date Type Department Care Team (Late st Contact Info) Description 05/15/2022 10:30 AM EST Office [place] [id number] Cheo Carlson MD [facility] [place] [address] History of tongue cancer Social History Tobacco Use Types [...] this encounter Patient Instructions * Patient Instructions* Azul Cueva RN - 05/15/2022 10:30 AM EST Preoperative Instructions You have been scheduled to have plastic surgery. The instructions below are specific to your procedure. Two Weeks prior to Surgery Do not take any Aspirin or aspirin containing products for the 2 weeks leading up to surgery. You may resume taking 48 hours after surgery. Do not take medications containing Ibuprofen. Do not take any anti-steroidal's such as Advil, Aleve, Celebrex, Daypro, Indocin, Midol, Motrin, Naproxen, Nuprinand Toradol. These medications increase your risk of bleeding. You may resume taking any of these medications 48 hours after surgery. Stop Vitamin E, Garlic supplements, Ginseng, Fish Oil tablets, Ginkgo and Joanna's Wort and any other herbals. You may resume taking 48 hours after surgery. If you need medication for pain, you may take Tylenol or extra strength Tylenol during this two week period. One Week prior to Surgery Please call if you feel ill, have cold or fever, have a rash or breaks in the skin near your surgical site. Stay hydrated. Avoid alcohol and recreational drugs Three Days before Surgery Do not shave near your surgical site One Day before Surgery Head and Neck Surgery - Wash your face and neck with an antibacterial soap the night before and themorning of surgery. The Same Day Surgery Team will call you the business day before your surgery to give you instructions specific to your procedure and your surgical time. Generally, you will be asked not to eat any solids after midnight. You are allowed clear liquids (water, masha ashwin, apple juice, black coffee andplain tea) until 2 hours prior to your surgery. Day of Surgery A charter and tour bus driver is required at time of discharge. If you are a Same Day procedure and do not have a driveryour surgery will be canceled. DO NOT wear any jewelry, makeup or artificial nails the day of surgery. DO NOT apply any lotions, powders or deodorants on or near the surgical site the day of surgery. Do wear comfortable, loose fitting clothes. Anesthesia will meet with you the morning of surgery. They will perform an assessment and review your history with you. Contact Information: During regular office hours (Sunday- Sunday, non-holiday 8:00 am- 5:00 pm) For an appointment or insurance questions For questions pertaining to your surgical date [phone] For nursing related questions [phone] On weekends, holidays or after office hours: Call and ask the internal grinding machine operator to page the Plastic Surgery Resident electronic imager. documented in this encounter Progress Notes * Cheo Carlson MD - 05/15/2022 10:30 AM EST Plastic Surgery Follow Up Note Provider: Cheo Carlson MD PCP: Lauren Pires APRN CC: Mandibular reconstruction HPI: The patient returns to clinic to finalize surgical plans. She is accompanied by her for today's visit. Examination: Constitutional: No acute distress Pt can open mouth to about 23mm Exposure intraorally of mandible in the buccal vestibular on left Loss of mandibular height Thin skin over mandible at the chin on the left inferiorly Dense radiation changes in neck No scars on legs No evidence of venostasis in bilateral lower extremities Easily palpable dorsal pedis on the left and the right Posterior tibial on left and the right Cardiovascular: Regular Pulmonary: Unlabored no audible wheeze . CT Angiogram Bilateral Lower Extremities 05/15/2022 Impression: Theresa Hollis 51 y.o. female patient here to discuss mandibular reconstruction. I have reviewed her recent images which shows involvement of her mandible. I explained that I would replace some skin and jaw bone. Reconstruction was discussed including a free fibula flap. I explained that she is a higher risk for healing complications because she has had radiation to that area in thepast. The post-operative care and restrictions were discussed including the need for a 1 week stay in the ICU and no vigorous activity for 4-6 weeks. We discussed potential risks and complications which include but are not limited to pain, bleeding, infection, scarring, asymmetry, hematoma, seroma,poor cosmetic outcome, failure of procedure, flap failure, possible need for revision, damage to adjacent structures, poor functional outcome, and . The patient wishes to proceed with surgery. Surgical consent was signed and completed during today's visit. Photos were obtained with signed informed consent. Plan: 1. Schedule Surgery. 2. I will call the patient if there are any concerning findings on the CT angiogram. Surgical Grid: Duration: 10-12 hours + 10-14 days over in the hospital Timeframe: Coordinated (August 2022) Coordinated with: Jesus Ng Procedure: Reconstruction of Mandible, free fibula flap CPT: 69869 Surgical site: mandible Side: left Anesthesia: General Follow up: 10-14 Days after discharge with AEE PAT: Defer to Jesus/Berenice Romano, Analisa Caban, have performed the documentation for this encounter in the presence of and acting as a scribe for CHEO CARLSON MD. I performed the services which were documented by the scribe, and I agree with the accuracy of the documentation in this encounter. CHEO CARLSON MD documented in this encounter Plan of Treatment Not on file documented as of this encounter Visit Diagnoses Diagnosis History of tongue cancer Personal history of malignant neoplasm of tongue documented in this encounter Care Teams Engineering Drafter Relationship Specialty Start Date End Date Dev, Tita Butt APRN [address] [place] [address] PCP - General Internal Medicine 05/15/22 documented as of this encounter
--- OUTSIDE RECORDS SUMMARY | 2023-12-08 20:01 | XMS_ITS | Encounter Summary ---
Author Organization [facility] [place] [address] Care Team Providers Care Television Servicer Name Role Phone Lauren Pires APRN Primary Care Provider [phone] Encounter Details Date Type Department Care Team (Latest Contact Info) Description 03/16/2022 Travel Social History Tobacco Use Types Packs/Day [...] on filedocumented in this encounter Care Teams Television Servicer Relationship Specialty Start Date End Date Lauren Pires APRN [address] [place] [address] PCP - General Family Medicine 10/13/21 05/14/22 documented as of this encounter
--- OUTSIDE RECORDS SUMMARY | 2023-12-08 20:01 | XMS_ITS | Encounter Summary ---
Author Organization [facility] Address [facility] [address] Care Team Providers Care Ointment Mill Tender Name Role Phone Marck Brody DO Primary Care Provider [phone] Reason for Visit * Reason Comments Follow-up Mandibular recon- hx tongue cancer * Consultation (Routine) - Closed Specialty Diagnoses / Procedures Referred By Shirley cuevas Referred To Contact Plastic Surgery Diagnoses Otorrhea of left ear Osteonecrosis of mandible H/O tongue cancer Roberth Lee MD [facility] [place] [address] Kelly Carlson MD [facility] [place] [address] Referral ID Status Reason Start Date Expiration Date V isits Requested Visits Authorized [id number] Closed Consult, Test & Treat 09/05/2021 09/05/2022 1 1 Encounter Details Date Type Department Care Team (Latest Contact Info) Description 09/12/2021 2:00 PM EDT Office [place] [address] Kelly Carlson MD [facility] [place] [address] Osteoradionecrosis of jaw Social History Tobacco Use [...] as of this encounter Progress Notes * Kelly Carlson MD - 09/12/2021 2:00 PM EDT Plastic Surgery Consultation Note Kelly Carlson MD PCP: Marck Brody DO RESIDENTIAL SOLAR SALES CONSULTANT: Jesus CC: Mandibular reconstruction HPI: Theresa Hollis is a 51 y.o. female here in consultation at the request of Dr. Lee for mandibular reconstruction. The patient was accompanied by her for today's visit. She had surgery with Dr. Lee in 2006. She had 60 hyperbarics treatment previously. She has had debridements with Dr. Ng in an attempt to address this. She has had drainage fromher chin. Subsequent to this she has met with Dr. Manjit curry and Dr. Ng. After careful consideration of options the consideration to do mandibular resection with reconstruction with dental implants is what she would like to proceed with. Patient Active Problem List Diagnosis Date Noted ??? Family hx-breast malignancy 10/29/2020 ??? Carpal [...] Right partial ??? LYMPHADENECTOMY SND 1-5 ??? PRO BONE BIOPSY,TROCAR/NEEDLE SUPERF Left 05/06/2014 BIOPSY BONE, TROCAR OR NEEDLE, SUPERFICIAL, MANDIBLE performed by Alfred Vital MD at [facility] ? ? PRO DEBRIDEMENT BONE MUSCLE &/FASCIA 20 SQ CM/< Bilateral 11/17/2019 DEBRIDEMENT SKIN, SUBCU, MUSCLE, BONE, HEAD/NECK (WRVU 4.1) performed by Keyur Ng MD at [facility] OR ??? PRO INJECTION PLATELET PLASMA WITH IMAGE, HARVEST, PREP 11/17/2019 INJECTION(S), PLATELET RICH PLASMA, ANY SITE, INCLUDING IMAGE GUIDANCE, HARVESTING AND PREPARATION WHEN PERFORMED performed by Keyur Ng MD at [facility] OR ??? PRO REMOVAL ERUPTED TOOTH WITH ELEVATION OF MUCOPERIOSTEAL FLAP N/A 05/06/2014 SURGICAL EXTRACTIONS REQUIRING ELEVATION OF MUCOPERIOSTEAL FLAP AND REMOVAL OF BONE OR SECTION OF TOOTH performed by Alfred Vital MD at [facility] OR ??? PRO REMOVAL ERUPTED TOOTH WITH ELEVATION OF MUCOPERIOSTEAL FLAP Bilateral 11/17/2019 SURGICAL EXTRACTIONS REQUIRING ELEVATION OF MUCOPERIOSTEAL FLAP AND REMOVAL OF BONE OR SECTION OF TOOTH (WRVU 1.09) performed by Keyur Ng MD at [facility] OR ??? SKIN GRAFT Social History Socioeconomic History ??? Marital status: Spouse name: Not on file ??? Number of children: Not on file ??? Years of education: Not on file ??? Highest education level: Not on file Occupational History ??? Not on file Tobacco Use ??? Smoking status: Never Smoker ??? Smokeless tobacco: Never Used Vaping Use ??? Vaping Use: Never used Substance and Sexual Activity ??? Alcohol use: Not Currently Comment: seldom, 4 drinks per year ??? Drug use: No ??? Sexual activity: Not Currently control/protection: Surgical Other Topics Concern ??? Not on file Social History Narrative ??? Not on file Social Determinants of Health Financial Resource Strain: Not on file Food Insecurity: Not on file Transportation Needs: Not on file Physical Activity: Not on file Housing Stability: Not on file Allergies Allergen Reactions ??? Allergenic Qvuirwn-Pmoj-Mkufd Itching Applesauce ??? Peanut Itching ??? Benzocaine Made pt tongue red and angry. Irritant reaction - allergy testing negative ??? Birch Other (See Comments) Birch pollen: wheezing and throat constriction Current Outpatient Medications on File Prior to Visit Medication Sig Dispense Refill ??? acetic acid (VOSOL) 2 % Solution Place 4 drops into the left ear 3 times daily for 14 days. 15 mL 1 ??? clotrimazole (LOTRIMIN) 1 % Solution Apply topically 2 times daily. Apply 5 gtts to left ear bid x 14 days 30 mL 0 ??? amoxicillin-clavulanate (Augmentin) 500-125 mg Tablet Take 1 tablet by mouth 2 times daily. 60 tablet 5 ??? nystatin (Mycostatin) 100,000 unit/mL Suspension Take 5 mLs by mouth 4 times daily. (Patient not taking: Reported on 09/05/2021) 60 mL 3 ??? triamcinolone acetonide (Kenalog) 0.1 % Paste Place 1 each onto teeth 2 times daily. (Patient taking differently: Place 1 each onto teeth as needed.) 5 g 12 ??? levothyroxine (Synthroid) 88 mcg Tablet Take 1 tablet by mouth daily. (Patient taking differently: Take 88 mcg by mouth daily. On Sundays: takes 1.5 tablets.) 90 tablet 3 ??? fluocinolone and shower cap (Start-Smoothe/FS Scalp Oil) 0.01 % Oil Apply topically [...] OPHT) Apply to eye 2 times daily. ??? acetaminophen (Tylenol) 160 mg/5 mL Suspension Take 15 mg/kg/dose by mouth as needed for Fever. ??? ibuprofen (ADVIL;MOTRIN) 100 mg/5 mL Suspension Take by mouth every 4 hours as needed for Fever. No current facility-administered medications on file prior to visit. Examination: Constitutional: No acute distress Pt can open mouth to about 23mm Exposure intraorally of mandible in the buccal vestibular on left Loss of mandibular height Thin skin over mandible at the chin on the left inferiorly Dense radiation changes in neck No scars on legs No evidence of venostasis Easily palpable dorsal pedis on the left and the right Posterior tibial on left and the right Cardiovascular: Regular Pulmonary: Unlabored no audible wheeze Impression: Theresa Hollis 51 y.o. female patient [...] had radiation to that area in thepast. I also explained that she has trismus which will not improve with surgery. The post-operative care and restrictions were discussed including the need for a 1 week stay in theICU and no vigorous activity for 4-6 weeks. We discussed potential risks and complications which include but are not limited to pain, bleeding, infection, scarring, asymmetry, hematoma, seroma, poor cosmetic outcome, failure of procedure, flap failure, possible need for revision, damage to adjacentstructures, poor functional outcome, and . The patient wishes to proceed with surgery. Photos were obtained with signed informed consent. Plan: 1. Follow up in May 2022. 2. CT angiogram to assess blood vessels for surgical planning. Will do this in May 2022. Surgical Grid: Duration: 10-12 hours + 10-14 days over in the hospital Timeframe: Coordinated (August 2022) Coordinated with: Jesus Ng Procedure: Reconstruction of Mandible, free fibula flap CPT: 73284, 44343, 01891, 70848, 08311, 15829, 44794 Surgical site: mandible Side: left Anesthesia: General Follow up: 10-14 Days after discharge with AEE PAT: Defer to Jesus/Josseline Lemus am acting as scribe for Dr. Carlson. All work documented was performed by Dr. Carlson. I performed the services which were documented by the scribe, and I agree with the accuracy of the documentation in this encounter. KELLY CARLSON MD documented in this encounter Plan of Treatment Scheduled Referrals Name Type Priority Associated Diagnoses Orde r Schedule Referral to Plastic Surgery Outpatient Referral Routine Otorrhea of left ear Osteonecrosis of mandible H/O tongue cancer Ordered: 09/05/2021 documented as of this encounter Visit Diagnoses Diagnosis Osteoradionecrosis of jaw Other specified disease of the jaws documented in this encounter Care Teams Ointment Mill Tender Relationship Specialty Start Date End Date Marck Brody DO [address] [place] [address] PCP - General 02/08/10 10/12/21 documented as of this encounter
--- OUTSIDE RECORDS SUMMARY | 2023-12-08 20:01 | XMS_ITS | Encounter Summary ---
Author Organization [facility] [place] [address] Care Team Providers Care Workforce Management Manager Name Role Phone Lauren Pires APRN Primary Care Provider [phone] Encounter Details Date Type Department Care Team (Late st Contact Info) Description 04/04/2022 Telephone [place] [phone] Alicia Swartz Social History Tobacco Use Types Packs/Day Years [...] encounter Miscellaneous Notes * Telephone Encounter - Alicia Swartz - 04/04/2022 2:31 PM EST Left message for patient to schedule her for a visit with on 05/02 at 8:[address]. Dr. Ng asks that patient see Dr. Pascal, her dentist after her appointment with him. They can offer 10am . Dr. Pascal's # [phone], ask for Tita. documented in this encounter Plan of Treatment Not on file documented as of this encounter Visit Diagnoses Not on filedocumented in this encounter Care Teams Workforce Management Manager Relationship Specialty Start Date End Date Lauren Pires APRN [address] [place] [address] PCP - General Family Medicine 10/13/21 05/14/22 documented as of this encounter
--- OUTSIDE RECORDS SUMMARY | 2023-12-08 20:01 | XMS_ITS | Encounter Summary ---
Author Organization [facility] [place] [address] Care Team Providers Care Planning Technician Name Role Phone Lauren Pires APRN Primary Care Provider [phone] Encounter Details Date Type Department Care Team (Late st Contact Info) Description 02/13/2022 Orders [place] [phone] Maged Smith RN Osteoradionecrosis of jaw Social History Tobacco Use [...] jaws documented in this encounter Care Teams Planning Technician Relationship Specialty Start Date End Date Lauren Pires APRN [address] [place] [address] PCP - General Family Medicine 10/13/21 05/14/22 documented as of this encounter
--- OUTSIDE RECORDS SUMMARY | 2023-12-08 20:01 | XMS_ITS | Encounter Summary ---
Author Organization [facility] [place] [address] Care Team Providers Care Automotive Shop Foreman Name Role Phone DevTita APRN Primary Care Provider [phone] Encounter Details Date Type Department Care Team (Late st Contact Info) Description 05/24/2022 Telephone [place] [phone] Areli Bethea Social History Tobacco Use Types Packs/Day Years [...] on filedocumented in this encounter Care Teams Automotive Shop Foreman Relationship Specialty Start Date End Date Tita Méndez APRN [address] [place], [place] [address] PCP - General Internal Medicine 05/15/22 documented as of this encounter
--- OUTSIDE RECORDS SUMMARY | 2023-12-08 20:01 | XMS_ITS | Encounter Summary ---
Author Organization [facility] [place] [address] Care Team Providers Care Operating Engineer Name Role Phone Marck Brody DO Primary Care Provider Encounter Details Date Type Department Care Team (Late st Contact Info) Description 09/13/2021 Telephone [place] [phone] Evangelina Montenegro Social History Tobacco Use Types Packs/Day Years [...] on filedocumented in this encounter Care Teams Operating Engineer Relationship Specialty Start Date End Date Marck Brody DO [address] [place] [address] PCP - General 02/08/10 10/12/21 documented as of this encounter
--- OUTSIDE RECORDS SUMMARY | 2023-12-08 20:01 | XMS_ITS | Encounter Summary ---
Author Organization [facility] [place] [address] Care Team Providers Care County Library Director Name Role Phone Lauren Pires APRN Primary Care Provider [phone] Reason for Visit * Reason Onset Date Comments Medication Refill 03/07/2022 Encounter Details Date Type Department Care Team (Late st Contact Info) Description 03/07/2022 [place]ill [place] [phone] Roberth Lee MD [facility] [place] [address] Osteoradionecrosis of jaw Social History Tobacco Use [...] jaws documented in this encounter Care Teams County Library Director Relationship Specialty Start Date End Date Lauren Pires APRN [address] [place] [address] PCP - General Family Medicine 10/13/21 2 documented as of this encounter
--- OUTSIDE RECORDS SUMMARY | 2023-12-08 20:01 | XMS_ITS | Encounter Summary ---
Author Organization [facility] [place] [address] Care Team Providers Care Slitter Operator Name Role Phone Dev, Tita Butt APRN Primary Care Provider [phone] Reason for Visit * Auth/Cert (Routine) Specialty [...] MICROVASC, FIBULA (WRVU 45.43) Roberth Lee MD [facility] [place] [address] [facility] Referral ID Status Reason Start Date Expiration Date Visits Re quested Visits Authorized [id number] 1 1 Encounter Details Date Type Department Care Team (Late st Contact Info) Description 08/21/2022 7:30 AM EDT - 08/21/2022 9:45 PM EDT [place] [id number] Roberth Lee MD [facility] [place] [address] EXCISION OF BONE, MANDIBLE (WRVU 10.03) Social History Tobacco Use Types Packs/Day Years [...] Sign Reading Time Taken Comments Blood Pressure 137/68 08/21/2022 9:00 PM EDT Pulse 74 08/21/2022 9:00 PM EDT Temperature 36.1 ??C (97 ??F) 08/21/2022 9:00 PM EDT Respiratory Rate 13 08/21/2022 9:12 PM EDT Oxygen Saturation 100% 08/21/2022 9:12 PM EDT Inhaled Oxygen Concentration - - Weight 43.9 kg (96 lb 12.8 oz) 08/21/2022 6:20 A M EDT Height 157.5 cm (5' 2) 08/21/2022 6:20 [...] follows: Primary site: Left lateral tongue Stage: [id number] Surgery(ies): 10/31/06 - Hemiglossectomy, left neck dissection [...] and if no improvement revisit with the j2ee programmer. She was satisfied with this plan. Reason [...] tolerated tube feeds well. She worked with SUBSTANCE ADDICTION COORDINATOR on POD 8 and her feeding tube was removed on POD 9 in an attempt to encourage more p.o. intake. The patient complained of difficulty swallowing and fatigue during eating. She also was noted to have significant coughing after swallowing. She was evaluated by the SUBSTANCE ADDICTION COORDINATOR and was initially cleared for a full [...] was discontinued. She continued to work with SUBSTANCE ADDICTION COORDINATOR throughout the hospital stay. The patient had [...] who have questions please contact the health healthcare management that requested your imaging first. Abdomen 1 view (Generic) Result Date: 08/22/2022 EXAMINATION: XR ABDOMEN 1 VIEW (GENERIC) CLINICAL HISTORY: s/p NGT placement (as entered by ordering provider in the order requisition) TECHNIQUE: Portable supine AP view of the upper abdomen. The right lateral margin of the abdominal cavity and the lower abdomen and pelvis are excluded from the imaged eplmq-vz-fald. COMPARISON: Abdominal radiograph 08/22/2022. FINDINGS: This enteric [...] who have questions please contact the health healthcare management that requested your imagingfirst. Abdomen 1 view (Generic) Addendum Date: 08/22/2022 [...] who have questions please contact the health healthcare management that requested your imaging first. --------ORIGINAL REPORT -------- EXAMINATION: XR ABDOMEN 1 [...] who have questions please contact the health healthcare management that requested your imaging first. Result Date: 08/22/2022 EXAMINATION: XR ABDOMEN 1 [...] who have questions please contact the health healthcare management that requested your imaging first. G-Tube Placement Result Date: 09/05/2022 Table formatting [...] with an 8mm balloon catheter. A 16 Hungarian balloon retained gastrostomy tube was placed. The [...] patients who have questions please contactthe health healthcare management that requested your imaging first. Chest One View Result Date: 08/30/2022 EXAMINATION: [...] who have questions please contact the health healthcare management that requested your imaging first. Electronically signed by: [facility] ([phone]), at 08/30/2022 8:43 AM XR Chest One [...] cap 0.01 % Oil Commonly known as: Leach-Smoothe/FS Scalp Oil Apply topically to scalp under [...] Allergies Allergen Reactions Tylenol [Acetaminophen] Anaphylaxis Allergenic Fvfjzip-Dcdb-Tijus Itching Applesauce Peanut Itching Benzocaine Made pt [...] by Interventional Radiology. Please call them at [phone] if any concerns. Oral Care: For all [...] get Peridex on the $4 list at [facility]. Activity: A good rule of [...] -You can reach the ENT clinic at [phone] for appointment questions. -The ENT triage nurse is available at [phone] -For urgent issues during evenings (5 PM - 7 AM) and weekends the ENT resident utilization specialist can be reached through the main hospital heel nailing machine operator at [phone] Follow Up: You will need to follow [...] this with your other appointments. Please call [phone] to receiveyour date and time. You will [...] 8:30 AM Hermelindo Kearney PA Otolaryngology at [facility] Arrive at: [employer] 4F [phone] 09/14/2022 8:30 AM Kam Mclean PA Maxillofacial Surgery at [facility] Arrive at: [employer] 5B [phone] 09/14/2022 9:00 AM Dimitry Marin PA Plastic Surgery at [facility] Arrive at: [employer] 4M [phone] 09/14/2022 9:30 AM [facility] IR RECOVERY Radiology at [facility] Arrive at: 3Z RADIOLOGY [phone] 09/14/2022 10:00 AM Roberth Agudelo SLP Otolaryngology at [facility] Arrive at: [employer] 4F [phone] 10/25/2022 11:00 AM Evelio Gimenez MD Endocrinology at [facility] Arrive at: [employer] 3A [phone] Future Orders Complete By Expires IR Suture Release [[id number] Custom] 09/12/2022 03/14/2023 Process Instructions: Scheduling Instructions: Comments: Questions: Where will study be performed?: [facility] Radiology Reason for exam and clinical [...] Oral cancer Referral for Home Tube feeds [XWV2069 CPT(R)] As directed Process Instructions: Scheduling Instructions: Comments: Theresa Hollis [address] [facility] [phone] (home) [phone] (work) - Telephone Information: Medicaid: NO Narrative: Patient has a feeding tube and requires tube feedings and supplies necessary to maintainnutritional support . PO INtake in very small amounts for swallow practice only VENDOR:[address] [address] or Supporting Diagnosis: SCC of the tongue [...] Additional instruction: Questions: Vendor / contact information: [facility] Patient location post discharge: [place], [place] Service requested: tube feed and supplies Start date: 08/31/2022 Responsible MD post discharge contact info: PCP Referral to Home Health [REF34 Custom] As directed Process Instructions: If no progress note charted, please enter Clinical details in comments. Scheduling Instructions: Comments: Please evaluate Theresa Hollis for admission to Home Health. [address] [facility] [phone] (home) [phone] (work) Date of : 1970 Inpatient DOCUMENTATION FOR VNA SERVICES (INCLUDING THOSE PATIENTS WITH MEDICARE COVERAGE REQUIRING HOME VNA SERVICES AND/OR HOSPICE SERVICES) PATIENT'S LOCATION: Theresa Hollis [address] [facility] [phone] (home) Cell: Telephone Information: Director Enterprise Sales's Name: Theresa In discussion with the attending physician, it is certified that this patient is under their care and that they, or a Nurse Practitioner, Clinical Nurse specialist or Physician Yarn Man who is working directly with them, had [...] both the lower leg and thigh wounds.) SUBSTANCE ADDICTION COORDINATOR: Evaluate and treat as appropriate. PLANISHING PRESS OPERATOR: Emotional support and community case management. HOME HEALTH CARE AGENCY: [facility] [address] [address] Start of care: Within 24 to 48 hours of discharge. Questions: Disciplines Requested: Nursing Speech Language Pathology Medical Social Work (If Patient Meets Eligibility Requirements) Referral to Speech Therapy [[id number] Custom] As directed Process Instructions: Scheduling Instructions: [...] the stages in any order and may [place] back to repeat any of the stages [...] your life. Don't be discouraged if you [place] back to any of the other stages [...] and security. Those people you can have ???eqjvb-us-qvpzl?? talks with. Engage in a mentoring relationship [...] it. Information from Dr. Samia Goldsmith, Psychiatrist [email or web address] ................................................................................ ............................................................... Support Groups: [facility] offers a variety of free programs that enhance the well- being of patients and care partners throughout the cancer journey. [email or web address]://[email or web address]/organizer/labgbi-yyyfmm-lffyihly-families /page/2/ Classes and workshops are offered to anyone who has received care at the [facility], regardless of location. All of our support groups are open to anyone in the region regardless of where they received their treatment and are facilitated by experienced, caring staff members. Everythingdiscussed in each group is confidential. All programs require pre-registration. To register, contact us at [phone] or [email or web address]. Support for People with Oral and Head and Neck Cancer (SPOHNC) [facility] Quarterly variable days *5:00 p.m. to 7:00 p.m. *Call [facility] for Information - ( ) [facility] Conference Room Sunday of each month *4:00 p.m. - 5:30 p.m. *Call [facility] for Information - ( ) ................................................................................ .................... ................................................................................ ................... 988 has been designated as the new three-digit dialing code that will route callers to the NationalSuicide Prevention Lifeline (now known as the 988 Suicide & Crisis Lifeline), and is now activeacross the [facility]. When people call, text, or chat 988, they will be connected to trained counselors that are part of the existing Lifeline network. These trained counselors will listen, understand how their problems are affecting them, provide support, and connect them to resources if necessary. The previous Lifeline phone number ( ) will always remain available to people in emotional distress or suicidal crisis. 464-BA-WGMGW The [facility] Support Line provides confidential, non-judgmental support and connection for all [facility] over the age of 18 by phone. It???s staffed by local peers who???ve been through tough situations themselves. They listen, talk with you, provide insight, and help you face life???s challenges. Different from a crisis helpline or emergency hotline, the [place] Support Line is a ???warm line?? -- [...] concerns, relationship challenges, or thoughts of suicide. [facility] Interventional Radiology Discharge Instructions for Feeding Tube [...] or its attachments. INTERVENTIONAL RADIOLOGY PHONE NUMBERS [phone] If you have a NON Low profile feeding tube, call with any questions or concerns. During regular office hours call: [phone]. If it is after regular office hours, weekends or holidays, please call [phone] and ask to speak to the Binder Cutter utilization specialist for Interventional Radiology. If you have a low profile ???SARTHAK-RAMOS?? feeding tube, please call Nadine Early RN for any issues: [phone]. Revised 01/02/19 __ Your Medications New Medications [...] cap 0.01 % Oil Commonly known as: Leach-Smoothe/FS Scalp Oil Apply topically to scalp under [...] Center 09/14/2022 8:30 AM Hermelindo Kearney PA [facility] JHONATAN [facility] 09/14/2022 8:30 AM Kam Mclean PA [facility] MXLO 5B [facility] 09/14/2022 9:00 AM Dimitry Marin PA [facility] PLAS 4M [facility] 09/14/2022 9:30 AM [facility] IR RECOVERY MH IR [facility] Rad 09/14/2022 10:00 AM Roberth Agudelo, SUBSTANCE ADDICTION COORDINATOR [facility] 10/25/2022 11:00 AM Evelio Gimenez MD [facility] ENDO [facility] Outpatient Services/Studies: IR Suture Release Standing Status: Future Standing Exp. Date: 03/14/23 Question Response Notes Where will study be performed? [facility] Radiology [120] Reason for exam and clinical history: s/p G tube placement 09/05/22, planning anchor release in 7-10days. Is the patient on anticoagulant / antiplatelet therapy ? No Is the patient ? No Referral to Home Health Referral Priority: Routine Referral Type: Home Health Care Referral Reason: Consult, Test & Treat Referred to Provider: [facility] [place] Number of Visits Requested: 999 Referral to Speech Therapy Referral Priority: Routine Referral Type: Speech Therapy Referral Reason: Evaluate and Treat Referred to Provider: ROBERTH AGUDELO Number of Visits Requested: 12 Referral for Home Tube feeds Order Comments: Theresa Hollis [address] [facility] [phone] (home) [phone] (work) - Telephone Information: Medicaid: NO Narrative: Patient has a feeding tube and requires tube feedings and supplies necessary to maintainnutritional support . PO INtake in very small amounts for swallow practice only VENDOR:[address] [address] or Supporting Diagnosis: SCC of the tongue [...] Question Response Notes Vendor / contact information [facility] Patient location post discharge [place], [place] Service requested tube feed and supplies Start date 08/31/2022 Responsible MD post discharge contact info PCP Primary Care Doctor: Tita Toddost, CLEANER AND POLISHER [phone] Signed: Toño Pacheco MD 09/08/2022 documented in [...] the stages in any order and may [place] back to repeat any of the stages [...] your life. Don't be discouraged if you [place] back to any of the other stages [...] and security. Those people you can have ???uhqwv-cd-ykjmm?? talks with. Engage in a mentoring relationship [...] it. Information from Dr. Samia Goldsmith, Psychiatrist [email or web address] ................................................................................ ............................................................... Support Groups: [facility] offers a variety of free programs that enhance the well- being of patients and care partners throughout the cancer journey. https://[email or web address].[email or web address]/organizer/dhghos-oemjsb-brubnyve-families /page/2/ Classes and workshops are offered to anyone who has received care at the [facility], regardless of location. All of our support groups are open to anyone in the region regardless of where they received their treatment and are facilitated by experienced, caring staff members. Everythingdiscussed in each group is confidential. All programs require pre-registration. To register, contact us at [phone] or [email or web address]. Support for People with Oral and Head and Neck Cancer (SPOHNC) [facility] Quarterly variable days *5:00 p.m. to 7:00 p.m. *Call [facility] for Information - ( ) [facility] Conference Room Sunday of each month *4:00 p.m. - 5:30 p.m. *Call [facility] for Information - ( ) ................................................................................ .................... ................................................................................ ................... 988 has been designated as the new three-digit dialing code that will route callers to the NationalSuicide Prevention Lifeline (now known as the 988 Suicide & Crisis Lifeline), and is now activeacross the [facility]. When people call, text, or chat 988, they will be connected to trained counselors that are part of the existing Lifeline network. These trained counselors will listen, understand how their problems are affecting them, provide support, and connect them to resources if necessary. The previous Lifeline phone number ( ) will always remain available to people in emotional distress or suicidal crisis. 648-GJ-MNGHT The [facility] Support Line provides confidential, non-judgmental support and connection for all [facility] over the age of 18 by phone. It???s staffed by local peers who???ve been through tough situations themselves. They listen, talk with you, provide insight, and help you face life???s challenges. Different from a crisis helpline or emergency hotline, the [place] Support Line is a ???warm line?? -- [...] concerns, relationship challenges, or thoughts of suicide. [facility] Interventional Radiology Discharge Instructions for Feeding Tube [...] or its attachments. INTERVENTIONAL RADIOLOGY PHONE NUMBERS [phone] If you have a NON Low profile feeding tube, call with any questions or concerns. During regular office hours call: [phone]. If it is after regular office hours, weekends or holidays, please call [phone] and ask to speak to the Binder Cutter utilization specialist for Interventional Radiology. If you have a low profile ???SARTHAK-RAMOS?? feeding tube, please call Nadine Early RN for any issues: [phone]. Revised 01/02/19 * Patient Instructions* Toño Pacheco [...] by Interventional Radiology. Please call them at [phone] if any concerns. Oral Care: For all [...] get Peridex on the $4 list at [facility]. Activity: A good rule of [...] -You can reach the ENT clinic at [phone] for appointment questions. -The ENT triage nurse is available at [phone] -For urgent issues during evenings (5 PM - 7 AM) and weekends the ENT resident utilization specialist can be reached through the main hospital heel nailing machine operator at [phone] Follow Up: You will need to follow up with ENT in 6 days. This appointment has been requested. You will be notified once it is scheduled, if you do not already see it below. If you do not hear from us in a timely manner, please call [phone] to receive your date and time. You will also need to follow-up with plastic surgery, which has been set up for you, as well. We will try our best to coordinate this with your other appointments. Please call [phone] to receiveyour date and time. You will [...] 8:30 AM Hermelindo Kearney PA Otolaryngology at [facility] Arrive at: [employer] 4F [phone] 09/14/2022 8:30 AM Kam Mclean PA Maxillofacial Surgery at [facility] Arrive at: [employer] 5B [phone] 09/14/2022 9:00 AM Dimitry Marin PA Plastic Surgery at [facility] Arrive at: [employer] 4M [phone] 09/14/2022 9:30 AM [facility] IR RECOVERY Radiology at [facility] Arrive at: 3Z RADIOLOGY [phone] 09/14/2022 10:00 AM Roberth Agudelo SLP Otolaryngology at [facility] Arrive at: [employer] 4F [phone] 10/25/2022 11:00 AM Evelio Gimenez MD Endocrinology at [facility] Arrive at: [employer] 3A [phone] Future Orders Complete By Expires IR Suture Release [[id number] Custom] 09/12/2022 03/14/2023 Process Instructions: Scheduling Instructions: Comments: Questions: Where will study be performed?: [facility] Radiology Reason for exam and clinical [...] Oral cancer Referral for Home Tube feeds [NYM3566 CPT(R)] As directed Process Instructions: Scheduling Instructions: Comments: Theresa Hollis [address] [facility] [phone] (home) [phone] (work) - Telephone Information: Medicaid: NO Narrative: Patient has a feeding tube and requires tube feedings and supplies necessary to maintainnutritional support . PO INtake in very small amounts for swallow practice only VENDOR:[place] [address] or Supporting Diagnosis: SCC of the tongue [...] Additional instruction: Questions: Vendor / contact information: [facility] Patient location post discharge: [place], [place] Service requested: tube feed and supplies Start date: 08/31/2022 Responsible MD post discharge contact info: PCP Referral to Home Health [REF34 Custom] As directed Process Instructions: If no progress note charted, please enter Clinical details in comments. Scheduling Instructions: Comments: Please evaluate Theresa Hollis for admission to Home Health. [address] [facility] [phone] (home) [phone] (work) Date of : 1970 Inpatient DOCUMENTATION FOR VNA SERVICES (INCLUDING THOSE PATIENTS WITH MEDICARE COVERAGE REQUIRING HOME VNA SERVICES AND/OR HOSPICE SERVICES) PATIENT'S LOCATION: Theresa Hollis [address] [facility] [phone] (home) Cell: Telephone Information: Director Enterprise Sales's Name: Theresa In discussion with the attending physician, it is certified that this patient is under their care and that they, or a Nurse Practitioner, Clinical Nurse specialist or Physician Yarn Man who is working directly with them, had [...] both the lower leg and thigh wounds.) SUBSTANCE ADDICTION COORDINATOR: Evaluate and treat as appropriate. PLANISHING PRESS OPERATOR: Emotional support and community case management. HOME HEALTH CARE AGENCY: [facility]. [address] [place] [id number] Start of care: Within 24 to 48 hours of discharge. Questions: Disciplines Requested: Nursing Speech Language Pathology Medical Social Work (If Patient Meets Eligibility Requirements) Referral to Speech Therapy [WCP104 Custom] As directed Process Instructions: Scheduling Instructions: [...] 3 07/31/2022 03/22/2023 fluocinolone and shower cap (Leach-Smoothe/FS Scalp Oil) 0.01 % Oil Apply topically [...] to call with concerns. * Roberth Agudelo, SUBSTANCE ADDICTION COORDINATOR - 09/08/2022 8:13 AM EDT Speech-Language Pathology [...] 09/14/22 in ENT clinic. Roberth Agudelo MS, CCC-SUBSTANCE ADDICTION COORDINATOR Speech-Language Pathologist Rehabilitation Medicine Pager #[phone] * Emmanuel Khalil MD - 09/08/2022 7:10 AM EDT Plastic Surgery Inpatient Progress Note (Team Pager #[phone] Date of surgery: 08/21/22 CC/Procedure(s): Oromandibular reconstruction [...] Khalil MD Plastic Surgery Inpatient Team Pager #[phone] Attending: Pt seen and examined . HEr [...] weakness, pain Assistance: SBA with FWW Supervision: Harvey with minimal assist Surveillance: suction at bedside, clutter free environment, call ramirez within reach, bed locked in low position, trach to go at bedside CPG GOAL OUTCOME EVALUATION: Continue with plan of care as documented * Umang Meza PTA - 09/07/2022 4:33 PM EDT Physical Therapy Intervention Note Treatment Number PT: 5 Patient profile: Theresa Hollis is a 52 y.o. female with a history of [id number] SCCa of the left lateral tongue s/p [...] Harinder in a single level home in [place]. Has ~ 15 IRENE without rails. Normallyindependent without device. 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 Stairs: Practiced with single railing and DIAMOND POLISHER, then railing and SPC, then just a [...] stated above. Total Minutes, Physical Therapy: 30 ([id number]) Billing Code: TEFx2 Umang Meza PTA Pager: [phone] Physical Therapy Inpatient Rehabilitation Department * Derrick [...] discuss plan with provider Cheryl Pacheco MD #[id number] . Current Nutrition Regimen: Active Orders Diet NPO diet (Give Meds) Frequency: Effective Midnight Number of Occurrences: Until Specified Assessment: Lab Results Component Value Date NA 140 09/07/2022 K 4.6 09/07/2022 CL 103 09/07/2022 CO2 29 09/07/2022 BUN 23 (H) 09/07/2022 CREATININE 0.55 (L) 09/07/2022 ESTGFR 111 09/07/2022 MAGNESIUM 0.94 09/07/2022 CALCIUM 9.4 09/07/2022 PHOS 4.3 09/07/2022 [id number] 213 (L) 08/22/2022 No results found for: [...] encounter: 46 kg (101 lb 8 oz). Cadwell Body Weight (IBW) (kg): 50 Wt Readings [...] enough data to assess (Srinivas baker al, FARRUKHEN J Parenteral Enteral Nutr. 2011; 36(3): 273-83) Nutrition to continue to follow up while inpatient [address] * Per Meza RN - 09/07/2022 11:56 AM EDT Page Confirmation To Pager number: [phone] From Submitter: Per Meza Urgency Level: Urgent Callback Number: [phone] The following Message was sent: [Urgent] - Callback:[phone]- reporting difficulty breathing. RT is present and states not stoma related - Per Meza The following status was returned from the senior sql server database developer: Page for [phone] successfully sent to [phone] having status of Available. * Roberth Agudelo, ROD - 09/07/2022 9:57 AM EDT Speech Therapy Note Patient Profile: Theresa Hollis is a 52 y.o. female with a history of Y0M9tA8 SCCa of the left lateral tongue s/p [...] Pt was seen today for a follow-up SUBSTANCE ADDICTION COORDINATOR visit. Pt continues to conduct PO trials [...] aspiration. - goal met. Plan: Therapy Frequency (SUBSTANCE ADDICTION COORDINATOR Eval): 2-4 times/wk Patient / family are in agreement with treatment plan. Total Minutes (Speech Language Pathology): 15 Thank you for this consult with this patient. Please feel free to page me with any questions or concerns. Roberth Agudelo MS, [facility]-SUBSTANCE ADDICTION COORDINATOR Pager: [phone] Speech-Language Pathology Inpatient Rehabilitation Department * Toño Pacheco MD - 09/07/2022 7:22 AM EDT OTOLARYNGOLOGY - HEAD & NECK SURGERY DAILY PROGRESS NOTE Name: Theresa Hollis Age/Sex: 52 y.o. female Attending: Roberth Lee MD Hospital Day: 18 2 Days Post-Op Patient ID/Reason for Admission Theresa Hollis is a 52 y.o. 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 She underwent tracheostomy, neck exploration, mandible excision, and fibula free flap reconstruction 08/21 with ENT and PRS. Interval History - Tolerated bolus TF without issue yesterday - FEES coordinated with SUBSTANCE ADDICTION COORDINATOR demonstrated c/f aspiration, to remain NPO for [...] PGY1 09/07/22 7:22 AM ENT Team Pager: [phone] * Kelly Laguna MD - 09/07/2022 7:05 AM EDT Plastic Surgery Inpatient Progress Note (Team Pager #[phone] Date of surgery: 08/21/22 CC/Procedure(s): Oromandibular reconstruction [...] MENDOZA APRN Plastic Surgery Inpatient Team Pager #[phone] Attending: Pt seen and examined . HEr [...] of care as documented * Dary Ramesh NETWORK ADMIN - 09/06/2022 3:42 PM EDT 09/06/22 1210 Oxygen Therapy O2 Device RA SpO2 99 % Pt on room air robert well Pt trach removed yesterday afternoon Pt is a Difficult Airway Trach to go kit and ambu should remain at bedside Will continue to monitor pt * Roberth Agudelo, SUBSTANCE ADDICTION COORDINATOR - 09/06/2022 1:42 PM EDT Speech Therapy Fiberoptic Endoscopic Evaluation of Swallowing (FEES) Patient Profile: Theresa Hollis is a 52 y.o. female with a history of E4Z1mF3 SCCa of the left lateral tongue s/p [...] left nares by ENT physician. Bolus Presentation(s) Silo thickened liquid 3 mL, via spoon Oral Preparatory Phase Mastication: N/A Oral Transit: Reduced transit. [place] assists with transit through oral cvaity. Bolus [...] of Tongue Retraction: Reduced. Pharygneal Residue: present. Silo-thick liquids mix with thick secretions in valleculae [...] dysphagia therapy. Pt would benefit from skilled SUBSTANCE ADDICTION COORDINATOR services to maximize swallow function and safety [...] each bolus. Pt will benefit from continued SUBSTANCE ADDICTION COORDINATOR services while hospitalized and Pt will benefit from SUBSTANCE ADDICTION COORDINATOR services in the discharge location. Speech Therapy Goals: (To be met by discharge) Pt will tolerate least restrictive diet without evidence of dysphagia / aspiration. Pt / caregiver will be independent with aspiration precautions, diet modifications, and safe swallowing strategies. Pt will participate in FEES to evaluate swallow function and rule out silent aspiration. - goal met. Plan: Therapy Frequency (SUBSTANCE ADDICTION COORDINATOR Eval): 2-4 times/wk Pt./family are in agreement with treatment plan. Total Minutes (Speech Language Pathology): 40 Thank you for this consult with this patient. Please feel free to page me with any questions or concerns. Roberth Agudelo MS, [facility]-SUBSTANCE ADDICTION COORDINATOR Pager: [phone] Speech-Language Pathology Inpatient Rehabilitation Department * Princess [...] SCC of the tongue and need for terminal supervisor enteral access for nutrition. Plan: -Suture release ordered and scheduled for 09/12. -IR will sign-off at this time. Please page with further questions and concerns. Princess Abarca PA-C Interventional Radiology IR Team Pager [phone] * Toño Pacheco MD - 09/06/2022 9:09 AM EDT OTOLARYNGOLOGY - HEAD & NECK SURGERY DAILY PROGRESS NOTE Name: Theresa Hollis Age/Sex: 52 y.o. female Attending: Roberth Lee MD Hospital Day: 17 1 Day Post-Op Patient ID/Reason for Admission Theresa Hollis is a 52 y.o. female with a history of P0F0kQ2 SCCa of the left lateral tongue s/p [...] stoma. Plan for FEES this afternoon with SUBSTANCE ADDICTION COORDINATOR to assess swallowing. Surgical/Head&Neck: Neck should remain [...] PGY1 09/06/22 9:10 AM ENT Team Pager: [phone] * Dimitry Marin PA - 09/06/2022 6:50 AM EDT Plastic Surgery Inpatient Progress Note (Team Pager #[phone] Date of surgery: 08/21/22 CC/Procedure(s): Oromandibular reconstruction [...] CALLY Baker Plastic Surgery Inpatient Team Pager #[phone] * Francisco Bello RCP - 09/05/2022 9:28 PM EDT RT Tracheostomy Note Theresa Hollis is a 52 y.o. female with a history of N6Z4eR5 SCCa of the left lateral tongue s/p [...] Pt is a Difficult airway, sign at [facility] Trach supplies remain in room for now * Derrcik Abel RD - 09/05/2022 2:39 PM EDT [...] discuss plan with provider Cheryl Pacheco MD #[id number] . Current Nutrition Regimen: Active Orders Diet NPO diet (Give Meds) Frequency: Effective Midnight Number of Occurrences: Until Specified TPN Medication Recent History (Show up to 3 orders; newest on the left. Changes between the two most recent orders are indicated.) Start date and time 09/04/2022 1800 09/01/2022 1800 08/31/2022 1800 TPN Adult [[id number]] TPN Adult [[id number]] TPN Adult [[id number]] Order Status Active Completed Completed Last Admin [...] 09/05/2022 CALCIUM 9.3 09/05/2022 PHOS 3.9 09/05/2022 [id number] 213 (L) 08/22/2022 No results found for: POCGLU Patient Lines/Drains/Airways Status Active Nutritional LDAs Name Placement date Placement time Site Days Enterostomy Tube 09/05/22 1155 gastrostomy tube with balloon feeding 09/05/22 1155 -- less than 1 PICC Line - Single Lumen 09/02/22 1633 basilic vein (medial side of arm), right 4 Fr 09/02/22 1633 -- 3 Closed/Suction Drain Right;Anterior Neck Bulb 15 Hungarian 08/21/22 1947 Neck 15 Physical Findings Skin: [...] encounter: 46 kg (101 lb 8 oz). Cadwell Body Weight (IBW) (kg): 50 Wt Readings [...] drsg reinforced over stoma. * Roberth Agudelo, SUBSTANCE ADDICTION COORDINATOR - 09/05/2022 11:26 AM EDT Speech-Language Pathology Progress Note 09/05/2022 11:26 AM Total Treatment Time: 0 min. No charge Total Timed Code Treatment: 0 min. Chart reviewed. Pt NPO for G-tube placement again today. Coordinated care with ENT. Plan for FEES assessment on 09/06/22 at 1PM. Roberth Agudelo MS, CCC-SUBSTANCE ADDICTION COORDINATOR Speech-Language Pathologist Rehabilitation Medicine Pager #[phone] * Akhil Martinez PA - 09/05/2022 9:18 AM EDT Plastic Surgery Inpatient Progress Note (Team Pager #[phone] Date of surgery: 08/21/22 CC/Procedure(s): Oromandibular reconstruction [...] CALLY Owens Plastic Surgery Inpatient Team Pager #[phone] * Toño Pacheco MD - 09/05/2022 7:29 AM EDT OTOLARYNGOLOGY - HEAD & NECK SURGERY DAILY PROGRESS NOTE Name: Theresa Hollis Age/Sex: 52 y.o. female Attending: Roberth Lee MD Hospital Day: 16 15 Days Post-Op Patient ID/Reason for Admission Theresa Hollis is a 52 y.o. female with a history of U3M9tE0 SCCa of the left lateral tongue s/p [...] 3 Closed/Suction Drain Right;Anterior Neck Bulb 15 Hungarian 08/21/22 1947 Neck 15 Trach Airway 08/28/22 1616 08/28/22 1616 -- 8 Prophylaxis: Lovenox, SCD, activity per PRS Disposition: Floor status, Attempt Cardiopulmonary Resuscitation - Inpatient Discharge: Plan for d/c TBD; Needs trach supplies, suction, VNA; Follow-up ENT Toño Pacheco MD, PGY1 09/05/22 7:30 AM ENT Team Pager: [phone] * Joey Mckeon, RN - 09/05/2022 5:53 [...] sensory deficits provided: N/A * Christiane Reyes NETWORK ADMIN - 09/05/2022 5:00 AM EDT RT Tracheostomy [...] at Bedside Yes Emergency Airway Sign at [facility]? Yes Assessment: Received patient with [...] The following status was returned from the senior sql server database developer: Page for [phone] successfully sent to [phone] [...] discuss plan with provider hCeryl Pacheco MD #[id number] . Current Nutrition Regimen: Active Orders Diet NPO diet (Give Meds) Frequency: Effective Midnight Number of Occurrences: Until Specified TPN Medication Recent History (Show up to 3 orders; newest on the left. Changes between the two most recent orders are indicated.) Start date and time 09/04/2022 1800 09/01/2022 1800 08/31/2022 1800 TPN Adult [[id number]] TPN Adult [[id number]] TPN Adult [[id number]] Order Status Active Last Dose in Progress [...] 09/04/2022 CALCIUM 8.8 09/04/2022 PHOS 3.8 09/04/2022 [id number] 213 (L) 08/22/2022 No results found for: POCGLU Patient Lines/Drains/Airways Status Active Nutritional LDAs Name Placement date Placement time Site Days PICC Line - Single Lumen 09/02/22 1633 basilic vein (medial side of arm), right 4 Fr 09/02/22 1633 -- 2 Closed/Suction Drain Right;Anterior Neck Bulb 15 Hungarian 08/21/22 1947 Neck 14 Physical Findings Skin: [...] encounter: 46 kg (101 lb 8 oz). Cadwell Body Weight (IBW) (kg): 50 Wt Readings [...] 52 y.o. female with a history of S5J1vQ2 SCCa of the left lateral tongue s/p [...] 2 Closed/Suction Drain Right;Anterior Neck Bulb 15 Hungarian 08/21/22 1947 Neck 14 Trach Airway 08/28/22 1616 08/28/22 1616 -- 7 Prophylaxis: Lovenox, SCD, activity per PRS Disposition: Floor status, Attempt Cardiopulmonary Resuscitation - Inpatient Discharge: Plan for d/c TBD; Needs trach supplies, suction, VNA; Follow-up ENT Toño Pacheco MD, PGY1 09/04/22 8:06 AM ENT Team Pager: [phone] * Anabell Nelson MD - 09/04/2022 7:49 AM EDT Plastic Surgery Inpatient Progress Note (Team Pager #[phone] Date of surgery: 08/21/22 CC/Procedure(s): Oromandibular reconstruction [...] Intake/Output Summary (Last 24 hours) at 09/04/2022 0762 Last data filed at 09/04/2022 0400 Gross [...] Nelson MD Plastic Surgery Inpatient Team Pager #[phone] * Joey Mckeon RN - 09/04/2022 5:09 [...] RN - 09/04/2022 1:06 AM EDT PICC tanner, RN collect * Joey Mckeon RN - 09/03/2022 8:25 PM EDTSummary: Aspiration risk/PO meds Page Sent Successfully Page Confirmation To Pager number: [phone] From Submitter: Joey Mckeon Urgency Level: Call Me Callback Number: [phone] The following Message was sent: [Call Me] - Callback:[phone]- aspiration risk with PO meds. OK to give? - Joey Mckeon The following status was returned from the senior sql server database developer: Page for [phone] successfully sent to [phone] [...] well t/o the shift no observed issues. NETWORK ADMIN will continue care. * Yue Arellano MD - 09/03/2022 9:11 AM EDT OTOLARYNGOLOGY - HEAD & NECK SURGERY DAILY PROGRESS NOTE Name: Theresa Hollis Age/Sex: 52 y.o. female Attending: Roberth Lee MD Hospital Day: 14 13 Days Post-Op Patient ID/Reason for Admission Theresa Hollis is a 52 y.o. female with a history of Y6D8gO2 SCCa of the left lateral tongue s/p [...] fibula free flap reconstruction, 13 Days Post-Op. Theersa would like to pursue a G tube; [...] 1 Closed/Suction Drain Right;Anterior Neck Bulb 15 Hungarian 08/21/22 1947 Neck 13 Trach Airway 08/28/22 1616 08/28/22 1616 -- 6 Prophylaxis: Lovenox, SCD, activity per PRS Disposition: Floor status, Attempt Cardiopulmonary Resuscitation - Inpatient Discharge: Plan for d/c TBD; Needs trach supplies, suction, VNA; Follow-up ENT Yue Arellano MD, PGY4 09/03/22 9:11 AM ENT Team Pager: [phone] * Anabell Nelson MD - 09/03/2022 8:47 AM EDT Images from the original note were not included. Plastic Surgery Inpatient Progress Note (Team Pager #[phone] Date of surgery: 08/21/22 CC/Procedure(s): Oromandibular reconstruction [...] Nelson MD Plastic Surgery Inpatient Team Pager #[phone] * Joey Reese CLERK TO JUSTICE - 09/02/2022 9:26 PM EDT Respiratory Care [...] 52 y.o. female with a history of U0O7yV4 SCCa of the left lateral tongue s/p [...] 3 Closed/Suction Drain Right;Anterior Neck Bulb 15 Hungarian 08/21/22 194 Neck 12 Trach Airway 08/28/22161508/28/221615 -- 5 Prophylaxis: Lovenox, SCD, activity per PRS Disposition: Floor status, Attempt Cardiopulmonary Resuscitation - Inpatient Discharge: Plan for d/c TBD; Needs trach supplies, suction, VNA; Follow-up ENT Yue Arellano MD, PGY4 09/02/22 8:50 AM ENT Team Pager: [phone] * Anabell Nelson MD - 09/02/2022 6:43 AM EDT Images from the original note were not included. Plastic Surgery Inpatient Progress Note (Team Pager #[phone] Date of surgery: 08/21/22 CC/Procedure(s): Oromandibular reconstruction [...] Nelson MD Plastic Surgery Inpatient Team Pager #[phone] * Tanja Wilson, PT - 09/01/2022 4:37 PM EDT Physical Therapy Intervention Note Treatment Number PT: 4 Patient profile: Theresa Hollis is a 52 y.o. female with a history of T1Z6gI1 SCCa of the left lateral tongue s/p [...] Harinder in a single level home in [place]. Has ~ 15 IRENE without rails. Normallyindependent without device. 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 Assessment: Threesa Hollis was seen today for physical therapy [...] stated above. Total Minutes, Physical Therapy: 27 ([phone]) Billing Code: TEF, HELLEN Meza PTA Pager: [phone] Physical Therapy Inpatient Rehabilitation Department * Azul [...] discuss plan with provider Cheryl Pacheco MD #[id number] . Current Nutrition Regimen: Active Orders Diet Puree diet Frequency: Effective Now Number of Occurrences: Until Specified TPN Medication Recent History (Show up to 3 orders; newest on the left. Changes between the two most recent orders are indicated.) Start date and time 09/01/2022 1800 08/31/2022 1800 TPN Adult [[id number]] TPN Adult [[id number]] Order Status Active Last Dose in Progress Last Admin New Bag at 08/31/2022 1729 by Catherine Morataya, FUENTES Frequency Continuous (1800) Continuous (1799) Additives adult multivitamin 10 mL [...] 09/01/2022 CALCIUM 9.5 09/01/2022 PHOS 2.8 09/01/2022 [id number] 213 (L) 08/22/2022 No results found for: POCGLU Patient Lines/Drains/Airways Status Active Nutritional LDAs Name Placement date Placement time Site Days Peripheral IV Line - Single Lumen 08/30/222147 basilic vein (medial side of arm), left 22 gauge;1 in length 08/30/222147 -- 2 Closed/Suction Drain Right;Anterior Neck Bulb 15 Hungarian 08/21/221946 Neck 11 Physical Findings Skin: surgical [...] encounter: 46 kg (101 lb 8 oz). Cadwell Body Weight (IBW) (kg): 50 Wt Readings [...] 52 y.o. female with a history of J8X8uN7 SCCa of the left lateral tongue s/p [...] 2 Closed/Suction Drain Right;Anterior Neck Bulb 15 Hungarian 08/21/22 194 Neck 11 Trach Airway 08/28/22 1616 08/28/22 161 -- 4 Prophylaxis: Lovenox, SCD, activity per PRS Disposition: Floor status, Attempt Cardiopulmonary Resuscitation - Inpatient Discharge: Plan for d/c TBD; Needs trach supplies, suction, VNA; Follow-up ENT Toño Pacheco MD, PGY1 09/01/22 9:30 AM ENT Team Pager: [phone] * Jazmyn Fletcher, SUBSTANCE ADDICTION COORDINATOR - 09/01/2022 7:43 AM EDT Speech-Language Pathology Consult note: Total Treatment Time: 0 min. No charge Total Timed Code Treatment: 0 min. Subjective: Chart reviewed this AM 0730 Pt made NPO by team for PEG placement on 09/01/22. Per secure chat by ENT Team and RN notes, FEES on hold as of today. SUBSTANCE ADDICTION COORDINATOR recommends to consider FEES if Pt here till 09/04/22 - to evaluate swallow function and possiblePO as tolerated or with by swallow exercises. Recommend OP SUBSTANCE ADDICTION COORDINATOR visit to further evaluate Pt's swallow function and provide therapy as needed. SUBSTANCE ADDICTION COORDINATOR will continue to follow throughout the day as medical status permits. Please page me with questions or concerns. Thank you! Jazmyn Fletcher MS, CFY-SUBSTANCE ADDICTION COORDINATOR Inpatient Rehabilitation Medicine Pager #[phone] * Akhil Martinez PA - 09/01/2022 6:54 AM EDT Plastic Surgery Inpatient Progress Note (Team Pager #[phone] Date of surgery: 08/21/22 CC/Procedure(s): Oromandibular reconstruction [...] CALLY Owens Plastic Surgery Inpatient Team Pager #[phone] * Hollie Vang RN - 08/31/2022 4:40 [...] as needed. Hollie Vang MSN-Ed, RN ACM financial reserve clerk Office of Care Management Pager #[phone] * Kimberly Jones [facility] - 08/31/2022 4:12 PM EDT Respiratory Care [...] assess readiness for decannulation * Jazmyn Fletcher, SUBSTANCE ADDICTION COORDINATOR - 08/31/2022 11:00 AM EDT Speech Therapy Note Patient Profile: Theresa Hollis is a 52 y.o. female admitted on 08/21/2022 history of U9E2zD4 SCCaof the left lateral tongue s/p hemiglossectomy, left neck dissection 1-5, skin graft, allograft (10/31/06) followed by adjuvant chemo XRT now presenting with ORN of the mandible. She underwent tracheostomy, neck exploration, mandible excision, and fibula free flap reconstruction 08/21 with ENT and PRS. Per ENT notes. Trach in place by ENT, Pt tolerating capping as of now. Team plans to decannulated today. SUBSTANCE ADDICTION COORDINATOR therapy summary: SUBSTANCE ADDICTION COORDINATOR following since 08/29/2022 for her swallow function [...] when she was willing to work with SUBSTANCE ADDICTION COORDINATOR, at bedside this wholesession. Communication done verbally [...] keep working on her PO intake as SUBSTANCE ADDICTION COORDINATOR left. Esophageal Phase: Appears to be WFL, [...] Pt was seen today for a follow-up SUBSTANCE ADDICTION COORDINATOR visit targeting her swallow function. present at [...] due to limited abduction in left VF. SUBSTANCE ADDICTION COORDINATOR continues to recommend puree and thin liquids and ice chips as tolerated with gradual advancement throughout the day. Place food on right side on mouth to avoid anterior loss from mouth during POintake. Follow strategy mentioned above mainly hold breath and swallow followed by cough& swallow to clear penetrated/aspirated material after every bite. SUBSTANCE ADDICTION COORDINATOR recommends FEES to observe Pt's swallow function and rule out silent aspiration/penetration with PO intake. Plans to conduct this study when ENT scopes Pt next time - possibly on 09/01/22. Pt would benefit from skilled SUBSTANCE ADDICTION COORDINATOR services to maximize swallow function to achieve [...] PO intake. Pt will benefit from continued SUBSTANCE ADDICTION COORDINATOR services while hospitalized Speech Therapy Goals: ONGOING unless otherwise stated Pt will tolerate least restrictive diet without evidence of dysphagia / aspiration. Pt / caregiver will be independent with aspiration precautions, diet modifications, and safe swallowing strategies. Pt will participate in FEES to evaluate swallow function and rule out silent aspiration. Plan: Therapy Frequency (SUBSTANCE ADDICTION COORDINATOR Eval): 3-5 times/wk Pt./family are in agreement with treatment plan. Total Minutes (Speech Language Pathology): 22 Thank you for this consult with this patient. Please feel free to page me with any questions or concerns. Jazmyn Fletcher MS, SUBSTANCE ADDICTION COORDINATOR-CF Pager #[phone] Speech Language Pathology Inpatient Rehabilitation Medicine * [...] discuss plan with provider Cheryl Pacheco MD #[id number] . Current Nutrition Regimen: Active Orders Diet Puree diet Frequency: Effective Now Number of Occurrences: Until Specified Order Comments: OK for ice chips as well TPN Medication Recent History (Show up to 3 orders; newest on the left.) Start date and time 08/31/2022 1800 TPN Adult [[id number]] Order Status Active Frequency Continuous (1800) Additives [...] 08/31/2022 CALCIUM 9.4 08/31/2022 PHOS 3.7 08/31/2022 [id number] 213 (L) 08/22/2022 No results found for: POCGLU Patient Lines/Drains/Airways Status Active Nutritional LDAs Name Placement date Placement time Site Days Peripheral IV Line - Single Lumen 08/30/222147 basilic vein (medial side of arm), left 22 gauge;1 in length 08/30/222147 -- 1 Closed/Suction Drain Right;Anterior Neck Bulb 15 Hungarian 08/21/22 1947 Neck 10 Physical Findings Skin: [...] encounter: 46 kg (101 lb 8 oz). Cadwell Body Weight (IBW) (kg): 50 Wt Readings [...] 52 y.o. female with a history of X2P2qP8 SCCa of the left lateral tongue s/p [...] on swallowing and will continue to see SUBSTANCE ADDICTION COORDINATOR daily. Will continue PPN for now. Wound [...] Meds) Bolus TF. Encourage PO. Working w SUBSTANCE ADDICTION COORDINATOR. Infectious Disease: WBC wnl, Unasyn x 5 days; Peridex Hematology: Hemoglobin wnl Endocrine: Home levothyroxine Consults: PRS Lines: Patient Lines/Drains/Airways Status Active Tubes/Lines/Drains Name Placement date Placement time Site Days Peripheral IV Line - Single Lumen 08/30/222147 basilic vein (medial side of arm), left 22 gauge;1 in length 08/30/222147 -- 1 Closed/Suction Drain Right;Anterior Neck Bulb 15 Hungarian 08/21/22 194 Neck 10 Trach Airway 08/28/22 1616 08/28/22 161 -- 3 Prophylaxis: Lovenox, SCD, activity per PRS Disposition: Floor status, Attempt Cardiopulmonary Resuscitation - Inpatient Discharge: Plan for d/c TBD; Needs trach supplies, suction, VNA; Follow-up ENT Toño Pacheco MD, PGY1 08/31/22 9:57 AM ENT Team Pager: [phone] * Akhil Martinez PA - 08/31/2022 7:06 AM EDT Images from the original note were not included. Plastic Surgery Inpatient Progress Note (Team Pager #[phone] Date of surgery: 08/21/22 CC/Procedure(s): Oromandibular reconstruction with right fibula free flap, skin graft from R thigh to right leg and submental opening Surgeon: Luz Elena Subjective/IE: LASHON. DHT removed yesterday, potential G tube pending repeat SUBSTANCE ADDICTION COORDINATOR eval. Tolerating trach capping. Objective: BP 128/74 [...] change 09/02. Antibiotics: Unasyn x5d Diet: Appreciate SUBSTANCE ADDICTION COORDINATOR recommendations Activity: WBAT RLE. May wear boot as needed for comfort. DVT prophylaxis: SCD left leg, lovenox Remainder of care per primary team CALLY Owens Plastic Surgery Inpatient Team Pager #[phone] * Kimberly Mendoza RCP - 08/31/2022 5:39 [...] Bedside Yes 08/30/222044 Emergency Airway Sign at [facility]? Yes 08/30/222044 Trach Care Performed: [...] Toño Pacheco MD ENT PGY-1 Personal Pager #[phone] ENT Team Pager #[phone] * Azul Mason RD - 08/30/2022 3:08 [...] y.o. female admitted on 08/21/2022 history of V4S6yW3 SCCaof the left lateral tongue s/p hemiglossectomy, left neck dissection 1-, skin graft, allograft (10/31/06) followed by adjuvant chemo XRT now presenting with ORN of the mandible. She underwent tracheostomy, neck exploration, mandible excision, and fibula free flap reconstruction 08/21 with ENT and PRS. Per ENT notes. Trach in place by ENT, Pt tolerating capping as of now. Team plans to decannulated today. SUBSTANCE ADDICTION COORDINATOR therapy summary: SUBSTANCE ADDICTION COORDINATOR following since 08/29/2022 for her swallow function w/ ENT's recommendation Not to advance beyond purees Interval History: ENT plans to decannulated this day along with DHT removal. BIT provided consult on 08/29/22. Subjective: Pt seen once in morning when she came back from imaging and requested to rest and give her a break. When SUBSTANCE ADDICTION COORDINATOR re-visited this noon, Pt was willing to work with SUBSTANCE ADDICTION COORDINATOR, at bedside thiswhole session. Also reported Benadryl [...] Pt was seen today for a follow-up SUBSTANCE ADDICTION COORDINATOR visit targeting her swallow function. present at bedside. Oral laryngeal mechanism reveals mildly improved lingual function, dry secretions present which were cleaned using 4 wet swabs at the beginning of session. Pt continues to tolerate small 3mm size icechips placed on right side of oral cavity. No thin liquids attempted. SUBSTANCE ADDICTION COORDINATOR continues to recommend ice chips 3mm in size with gradual advancement as tolerated throughout the day with advancing to 1-2mlthin liquids by tsp. Place food on right side on mouth to avoid anterior loss from mouth during PO intake. Pt continues to need motivation and encouragement for continuing PO intake for diet advancement. Pt would benefit from skilled SUBSTANCE ADDICTION COORDINATOR services to maximize swallow function to achieve [...] PO intake. Pt will benefit from continued SUBSTANCE ADDICTION COORDINATOR services while hospitalized Speech Therapy Goals: ONGOING unless otherwise stated Pt will tolerate least restrictive diet without evidence of dysphagia / aspiration. Pt / caregiver will be independent with aspiration precautions, diet modifications, and safe swallowing strategies. Plan: Therapy Frequency (SUBSTANCE ADDICTION COORDINATOR Eval): 3-5 times/wk Pt./family are in agreement with treatment plan. Total Minutes (Speech Language Pathology): 24 Thank you for this consult with this patient. Please feel free to page me with any questions or concerns. Jazmyn Fletcher, MS, SUBSTANCE ADDICTION COORDINATOR-CF Pager #[phone] Speech Language Pathology Inpatient Rehabilitation Medicine * Kimberly Jones NETWORK ADMIN - 08/30/2022 11:22 AM EDT Respiratory Care [...] 9 Days Post-Op Patient ID/Reason for Admission Tehresa Hollis is a 52 y.o. female with a history of [id number] SCCa of the left lateral tongue s/p [...] Intake/Output Summary (Last 24 hours) at 08/30/2022 0945 Last data filed at 08/30/2022 0536 Gross [...] tolerating trach capping. Continues to work with SUBSTANCE ADDICTION COORDINATOR, will plan to remove NGT later today. [...] Peripheral IV Line - Single Lumen 08/24/22 010 cephalic vein (lateral side of arm), left 20 gauge 08/24/22 0100 -- 6 Closed/Suction Drain Right;Anterior Neck Bulb 15 Hungarian 08/21/22 1947 Neck 9 Naso/Oral Tube 08/22/22 1815 nasogastric left nostril 08/22/22 1815 left nostril 8 Trach Airway 08/28/22 1616 08/28/22 1616 -- 2 Prophylaxis: Lovenox, SCD, activity per PRS Disposition: Floor status, Attempt Cardiopulmonary Resuscitation - Inpatient Discharge: Plan for d/c as early as Sunday; Needs trach supplies, suction, VNA; Follow-up ENT Toño Pacheco MD, PGY1 08/30/22 9:55 AM ENT Team Pager: [phone] * Kelly Laguna MD - 08/30/2022 7:04 AM EDT Plastic Surgery Inpatient Progress Note (Team Pager #[phone] Date of surgery: 08/21/22 CC/Procedure(s): Oromandibular reconstruction with right fibula free flap, skin graft from R thigh to right leg and submental opening Surgeon: Luz Elena Subjective/IE: LASHON. Patient was seen by SUBSTANCE ADDICTION COORDINATOR yesterday and was advanced to sips and [...] 08/21. Recovering well overall. Currently working with SUBSTANCE ADDICTION COORDINATOR. Plan: Q4h flap checks Dressings/Drains: Strip and record drain output. Allevyn off 09/04. RLE stsg changed yesterday 08/29.baci and xeroform, QOD. Antibiotics: Unasyn x5d Diet: Continue TF as tolerated, SUBSTANCE ADDICTION COORDINATOR ok'd for sips and chips Activity: TTWB in CAM boot when out of bed DVT prophylaxis: SCD left leg, lovenox Remainder of care per primary team CALLY Baker Plastic Surgery Inpatient Team Pager #[phone] Attending: Plan discussed and agree as documented. Kelly Laguna MD Plastic Surgery * Analisa Johnson, [facility] - 08/30/2022 4:10 AM EDT RT [...] Bedside Yes 08/29/222048 Emergency Airway Sign at [facility]? Yes 08/29/222048 Secretions: Small amounts, [...] anticipation of this plan, please refer to: [address] [address] or *for tube feed and supplies Also [facility] (Resp Supplies) Central Intake: [place]: [place]: -They cover all [place] *For trach supplies, suction and humidification. BRAD: 08/31/22 Hollie aVng MSN-Ed, RN ACM financial reserve clerk Office of Care Management Pager #[phone] * Mehul Ashok Norm, OT - 08/29/2022 2:57 PM EDT Occupational Therapy Treatment Note Treatment Number OT: 2 Patient Dx: Theresa Hollis is a 52 y.o. 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 PLANISHING PRESS OPERATOR met with patient, spouse, Stephan and mother, Becca. 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 PLANISHING PRESS OPERATOR made a referral to MARION Betancourt ENT outpatient social worker aide who confirms she will follow up with this referral at patient's next follow up appointment. Patient given Aura Nation's information as well. A BIT consult has also been ordered by doctor for added emotional/therapeutic support. Overall, patient states, I will be much better once I get home. PLANISHING PRESS OPERATOR to continue to provide psychosocial supports for [...] home health TANJA WILSON, PT Pager # [phone] In-Pt Rehab Medicine Orders received via chat that pt is now WBAT on RLE with cont use of boot for comfort. Have passed on to RN. Resume PT for gait training and for stair management to prepare for home DC when medically stable. * Abril Mustafa - 08/29/2022 11:20 AM EDT Pole Peeling Machine Operator Helper Encounter Note Patient Name: Theresa Hollis : [id number] MR#: [id number] Admit Date: 08/21/2022 6:10 AM Hospital Day 8 days Narrative: Visited patient on unit rounds as follow up to consult request visit yesterday. The patient was sitting up in her chair and had a visitor. Assessment: The patient said that she had a senior integration architect visit yesterday. She said she was fine today and did not need another visit. Intervention and Outcome: Told her I was glad she was better and wished her well going forward. She expressed thanks. Follow-up: No follow up required as currently assessed. Time in Direct Care: 5 minutes. Abril Mustafa 08/29/2022 * Jazmyn Fletcher SUBSTANCE ADDICTION COORDINATOR - 08/29/2022 10:12 AM EDT Speech Therapy Bedside Swallow Evaluation Patient Profile: Theresa Hollis is a 52 y.o. 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 She underwent tracheostomy, neck exploration, mandible excision, and fibula free flap reconstruction 08/21 with ENT and PRS. Per ENT notes. Trach in place by ENT, Pt tolerating capping as of now. SUBSTANCE ADDICTION COORDINATOR consulted on 08/29/2022 to evaluate her swallow function and Not to advance beyond purees Prior Level of Swallow Function: Pt reports PO intake with soft solids and thin liquids. Subjective: Pt encountered at bed and later requested to position in chair for comfort. Family present in room during the time of evaluation. Is willing to work with SUBSTANCE ADDICTION COORDINATOR and as session progressed comments this is frustrating communicates using white board throughout the session wit SUBSTANCE ADDICTION COORDINATOR. Objective: Pt seen for evaluation today. Pain: In leg and around jaw - reports can work with SUBSTANCE ADDICTION COORDINATOR Respiratory Status: Room air Vision: WFL per [...] results and recommendations Assessment: Pt seen for SUBSTANCE ADDICTION COORDINATOR swallow evaluation to assess her swallow function [...] pour into pharynxdue to h/o partial glossectomy. SUBSTANCE ADDICTION COORDINATOR recommends ice chips 3mm in size with gradual advancement as tolerated throughout the day. Place food on right side on mouth to avoid anterior loss from mouth during PO intake. Pt appeared briefly frustrated during the session and SUBSTANCE ADDICTION COORDINATOR provided support and encouragement duringthis time. Pt may benefit from BIT consult for mental/emotional support during the course of hospitalization. SUBSTANCE ADDICTION COORDINATOR will continue to evaluate and advance diet [...] PO intake. Pt will benefit from continued SUBSTANCE ADDICTION COORDINATOR services while hospitalized Speech Therapy Goals: (To be met by discharge) Pt will tolerate least restrictive diet without evidence of dysphagia / aspiration. Pt / caregiver will be independent with aspiration precautions, diet modifications, and safe swallowing strategies. Plan: Therapy Frequency (SUBSTANCE ADDICTION COORDINATOR Eval): 3-5 times/wk Pt./family are in agreement with treatment plan. Total Minutes (Speech Language Pathology): 42 Thank you for this consult with this patient. Please feel free to page me with any questions or concerns. Jazmyn Fletcher MS, SUBSTANCE ADDICTION COORDINATOR-CF Pager #[phone] Speech Language Pathology Inpatient Rehabilitation Medicine * Toño Pacheco MD - 08/29/2022 7:39 AM EDT OTOLARYNGOLOGY - HEAD & NECK SURGERY DAILY PROGRESS NOTE Name: Theresa Hollis Age/Sex: 52 y.o. female Attending: Roberth Lee MD Hospital Day: 9 8 Days Post-Op Patient ID/Reason for Admission Theresa Hollis is a 52 y.o. female with a history of [id number] SCCa of the left lateral tongue s/p [...] 5 Closed/Suction Drain Right;Anterior Neck Bulb 15 Hungarian 08/21/22 1947 Neck 8 Naso/Oral Tube 08/22/22 181 nasogastric left nostril 08/22/22 1815 left nostril 7 Trach Airway 08/28/22 1616 08/28/22 1616 -- 1 Prophylaxis: Lovenox, SCD, activity per PRS Disposition: Floor status, Attempt Cardiopulmonary Resuscitation - Inpatient Discharge: Plan for d/c as early as Sunday; Needs trach supplies, suction, VNA; Follow-up ENT Toño Pacheco MD, PGY1 08/29/22 7:40 AM ENT Team Pager: [phone] * Dimitry Marin PA - 08/29/2022 7:12 AM EDT Images from the original note were not included. Plastic Surgery Inpatient Progress Note (Team Pager #[phone] Date of surgery: 08/21/22 CC/Procedure(s): Oromandibular reconstruction [...] Unasyn x5d Diet: Continue TF as tolerated, SUBSTANCE ADDICTION COORDINATOR okay for today Activity: TTWB in CAM boot when out of bed DVT prophylaxis: SCD left leg, lovenox May start PT Remainder of care per primary team CALLY Baker Plastic Surgery Inpatient Team Pager #[phone] * Sandra Bergman, [facility] - 08/29/2022 4:47 AM EDT RT [...] who have questions please contact the health healthcare management that requested your imaging first. Airway: Trach Airway 08/28/22 1616 (Active) Tracheal [...] Yes 08/29/22 0400 Emergency Airway Sign at [facility]? Yes 08/29/22 0400 Trach Care [...] 52 y.o. 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 She underwent tracheostomy, neck exploration, mandible excision, and fibula free flap reconstruction 08/21 with ENT and PRS. Total duration of encounter: 7 days Social History: Patient lives with Harinder in a single level home in [place]. Has ~ 15 IRENE without rails. Normallyindependent without device. 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 BETTYE EGAN, PT Pager: [phone] Physical Therapy Inpatient Rehabilitation Department * Chitra [...] discuss plan with provider Cheryl Pacheco MD #[id number] . Current Nutrition Regimen: Active Orders Diet NPO diet (Give Meds) Frequency: Effective Now Number of Occurrences: Until Specified Assessment: Lab Results Component Value Date NA 137 08/26/2022 K 3.8 08/26/2022 CL 102 08/26/2022 CO2 25 08/26/2022 BUN 16 08/26/2022 CREATININE 0.51 (L) 08/26/2022 ESTGFR 113 08/26/2022 MAGNESIUM 0.87 08/26/2022 CALCIUM 8.5 08/26/2022 PHOS 2.6 08/26/2022 [id number] 213 (L) 08/22/2022 No results found for: [...] 4 Closed/Suction Drain Right;Anterior Neck Bulb 15 Hungarian 08/21/22 1947 Neck 7 Physical Findings Skin: [...] oral powder, magnesium sulfate OR magnesium sulfate, qxuetn-yvpuwwng-waxuvwp DR AND sodium bicarbonate, sodium chloride 0.9 % (flush), lidocaine, ondansetron, prochlorperazine Anthropometrics: Admit Weight: 43.91 kg Estimated body mass index is 18.56 kg/m?? as calculated from the following: Height as of this encounter: 157.5 cm (5' 2). Weight as of this encounter: 46 kg (101 lb 8 oz). [place]well Body Weight (IBW) (kg): 50 Wt Readings [...] history / interview: 08/28: Discharge pended for urs this week. Unsure if pt will be [...] Jessica Cazares - 08/28/2022 2:41 PM EDT Pole Peeling Machine Operator Helper Encounter Note Patient Name: Theresa Hollis : [id number] MR#: [id number] Admit Date: 08/21/2022 6:10 AM Hospital Day 7 days Narrative: This display card writer responded to a spiritual care consult. Assessment: Patient desired to have conversation with senior integration architect alone, she utilized the white board for clear communication, reflecting on and processing the emotions of her experience. Intervention and Outcome: This display card writer provided spiritual care through reflective listening, emotional validation and words ofblessing. Follow-up: Patient voiced appreciation for visit and let this display card writer know she would reach out to Rns to page if a senior integration architect visit was desired again. Time in Direct [...] 52 y.o. female with a history of U6X5mW7 SCCa of the left lateral tongue s/p [...] VSS - Would like to speak with BIT/senior integration architect regarding adjustment to illness Vitals Last value [...] K 3.8 3.4* CL 102 100 CO2 23 BUN 16 9 CREATININE 0.51* 0.50* GLUCOSE 100 85 CALCIUM 8.5 8.4* MAGNESIUM 0.87 0.82 PHOS 2.6 2.8 Imaging None. ASSESSMENT & PLAN Theresa Hollis is a 52 y.o. female s/p neck exploration, tracheostomy, mandible excision, and fibula free flap reconstruction, 7 Days Post-Op. Theresa is doing very well. She is tolerating trach capping intermittently. Will consult BIT/senior integration architect this AM to provide support. Swallow pending [...] 4 Closed/Suction Drain Right;Anterior Neck Bulb 15 Hungarian 08/21/22 1947 Neck 7 Naso/Oral Tube 08/22/22 1815 nasogastric left nostril 08/22/22 1815 left nostril 6 Trach Airway 08/25/22 1616 08/25/22 1616 -- 3 Prophylaxis: Lovenox, SCD, activity per PRS Disposition: Floor status, Attempt Cardiopulmonary Resuscitation - Inpatient Discharge: Plan for d/c as early as Sunday; Needs trach supplies, suction, VNA; Follow-up ENT Toño Pacheco MD, PGY1 08/28/22 8:17 AM ENT Team Pager: [phone] * Skylar Cloud, CLEANER AND POLISHER - 08/28/2022 7:53 AM EDT Images from the original note were not included. Plastic Surgery Inpatient Progress Note (Team Pager #[phone] Date of surgery: 08/21/22 CC/Procedure(s): Oromandibular reconstruction [...] PT Remainder of care per primary team SUBSTANCE ADDICTION COORDINATOR - Hold for now (per GLF) HOld on GT for now (per GLF) Skylar Cloud APRN Plastic Surgery Inpatient Team Pager #[phone] * Skylar Cloud APRN - 08/28/2022 6:53 AM EDT Images from the original note were not included. Plastic Surgery Inpatient Progress Note (Team Pager #[phone] Date of surgery: 08/21/22 CC/Procedure(s): Oromandibular reconstruction [...] PT Remainder of care per primary team SUBSTANCE ADDICTION COORDINATOR pending discussion with Dr. Luz Elena Cloud APRN Plastic Surgery Inpatient Team Pager #[phone] * Sandra Bergman, [facility] - 08/28/2022 5:27 AM EDT RT [...] who have questions please contact the health healthcare management that requested your imaging first. Airway: Trach Airway 08/25/22 1616 (Active) Tracheal Airway Size Verfication 6 mm 08/28/22 0334 Appearance clean 08/28/22 0334 Tube Securement foam trach ties 08/28/22 0334 Trach Cap Status uncapped/unplugged 08/28/22 0334 Tube Care/Reposition inner cannula changed;site care done;securement device changed 08/27/22 2045 Manual Resuscitator at Bedside Yes 08/28/22 0334 Spare Trach At Bedside Yes 08/28/22 0334 Trach ToGo kit at Bedside Yes 08/28/22 0334 Emergency Airway Sign at [facility]? Yes 08/28/22 0334 Trach Care [...] Bedside Yes 08/27/22830 Emergency Airway Sign at [facility]? Yes 08/27/22830 Trach Care Performed: [...] 52 y.o. female with a history of W4T5aT2 SCCa of the left lateral tongue s/p [...] 3 Closed/Suction Drain Right;Anterior Neck Bulb 15 Hungarian 08/21/22 1947 Neck 6 Naso/Oral Tube 08/22/22 1815 nasogastric left nostril 08/22/22 1815 left nostril 5 Trach Airway 08/25/22 1616 08/25/22 1616 -- 2 Prophylaxis: Lovenox, SCD, activity per PRS Disposition: Floor status, Attempt Cardiopulmonary Resuscitation - Inpatient Discharge: Plan for d/c as early as Sunday; Needs trach supplies, suction, VNA; Follow-up ENT Ilda Estrada MD, PGY3 08/27/22 12:44 PM ENT Team Pager: [phone] * Sayra Dumont MD - 08/27/2022 7:54 AM EDT Plastic Surgery Inpatient Progress Note (Team Pager #[phone] Date of surgery: 08/21/22 CC/Procedure(s): Oromandibular reconstruction [...] Dumont MD Plastic Surgery Inpatient Team Pager #[phone] * Estefany Larson, [facility] - 08/27/2022 5:32 AM EDT Respiratory [...] Emergency Airway Sign at [facility]? Yes 08/26/22 075 Trach Care Performed: Trach Airway 08/25/22 1616-Tube Care/Reposition: site care done, inner cannula changed [REMOVED] Trach Airway 08/21/221947-Tube Care/Reposition: inner cannula [...] Plastic Surgery Inpatient Progress Note (Team Pager #[phone] Date of surgery: 08/21/22 CC/Procedure(s): Oromandibular reconstruction [...] Dumont MD Plastic Surgery Inpatient Team Pager #[phone] Attending: Pt seen and examined with Dr [...] 52 y.o. female with a history of H6P2eZ3 SCCa of the left lateral tongue s/p [...] 2 Closed/Suction Drain Right;Anterior Neck Bulb 15 Hungarian 08/21/22 1947 Neck 5 Naso/Oral Tube 08/22/22 1815 nasogastric left nostril 08/22/22 1815 left nostril 4 Trach Airway 08/25/22 1616 08/25/22 1616 -- 1 Prophylaxis: Lovenox, SCD, activity per PRS Disposition: Floor status, Attempt Cardiopulmonary Resuscitation - Inpatient Discharge: Plan for d/c TBD; Needs trach supplies, suction, VNA; Follow-up ENT Ilda Estrada MD, PGY3 08/26/22 11:34 AM ENT Team Pager: [phone] * Sarita Spence, [facility] - 08/26/2022 4:25 AM EDT RT Tracheostomy Note Oxygen Delivery: Interface: Heated trach collar Flow: 40 L/min FiO2: 21 % Skin Assessment: Barrier Used: None. Trach changed Inhaled Medications: None Airway: Trach Airway 08/25/22 1616 (Active) Tracheal Airway Size Verfication 6 mm 08/26/22256 Appearance clean;dry 08/26/22256 Tube Securement foam trach ties 08/26/22 0257 Trach Cap Status uncapped/unplugged 08/26/22 025 Manual Resuscitator at Bedside Yes 08/26/22 0257 Spare Trach At Bedside Yes 06/01/08 257 Trach ToGo kit at Bedside Yes 08/26/22 025 Emergency Airway Sign at [facility]? Yes 08/26/22 025 Trach Care Performed: Trach Airway 08/25/22 1616-Tube [...] Yes 08/25/22 1330 Emergency Airway Sign at [facility]? Yes 08/25/22 1330 Trach Care Performed: Trach Airway 08/21/221947-Tube Care/Reposition: inner cannula changed, site care done Secretions: Thin/yellow Assessment: Received patient with 6CN in placed, team replaced with 6UN. Plan: Continue to monitor and support. Rina Vang RCP * Ilda Estrada MD - 08/25/2022 4:14 PM EDT Pre-Procedure Dx: H/O tracheostomy (Z98.890) Post-procedure Dx: same Procedure: Tracheostomy Tube Change ([id number]) Pre-procedure checklist: Correct Patient Correct time Current [...] discuss plan with provider Cheryl Pacheco MD #[id number] . Current Nutrition Regimen: Active Orders Diet NPO diet (Give Meds) Frequency: Effective Now Number of Occurrences: Until Specified Assessment: Lab Results Component Value Date NA 136 08/25/2022 K 3.4 (L) 08/25/2022 CL 100 08/25/2022 CO2 23 08/25/2022 BUN 9 08/25/2022 CREATININE 0.50 (L) 08/25/2022 ESTGFR 113 08/25/2022 MAGNESIUM 0.82 08/25/2022 CALCIUM 8.4 (L) 08/25/2022 PHOS 2.8 08/25/2022 [id number] 213 (L) 08/22/2022 No results found for: POCGLU Patient Lines/Drains/Airways Status Active Nutritional LDAs Name Placement date Placement time Site Days Naso/Oral Tube 08/22/22 181 nasogastric left nostril 08/22/22 181 left nostril 3 Peripheral IV Line - Single Lumen 08/21/22 0838 18 gauge 08/21/22 0838 -- 4 Peripheral IV Line - Single Lumen 08/24/22 0100 cephalic vein (lateral side of arm), left 20 gauge 08/24/22 0100 -- 1 NPWT 08/21/22 182 leg 08/21/221824 -- 4 Closed/Suction Drain Right;Anterior Neck Bulb 15 Hungarian 08/21/22 1947 Neck 4 Physical Findings Skin: [...] sulfate, HYDROmorphone OR HYDROmorphone OR [DISCONTINUED] HYDROmorphone, btpqlp-tbfruuup-ijtieiz DR AND sodium bicarbonate, sodium chloride 0.9 % (flush), lidocaine, ondansetron, prochlorperazine Anthropometrics: Admit Weight: 43.91 kg Estimated body mass index is 18.83 kg/m?? as calculated from the following: Height as of this encounter: 157.5 cm (5' 2). Weight as of this encounter: 46.7 kg (102 lb 15.3 oz). [place]well Body Weight (IBW) (kg): 50 Wt Readings [...] MS, RD, LDN Clinical Dietitian Pager # [phone] * Toño Pacheco MD - 08/25/2022 8:57 AM EDT OTOLARYNGOLOGY - HEAD & NECK SURGERY DAILY PROGRESS NOTE Name: Theresa Hollis Age/Sex: 52 y.o. female Attending: Roberth Lee MD Hospital Day: 5 4 Days Post-Op Patient ID/Reason for Admission Theresa Hollis is a 52 y.o. female with a history of K9G4sL8 SCCa of the left lateral tongue s/p [...] 1 Closed/Suction Drain Right;Anterior Neck Bulb 15 Hungarian 08/21/221946 Neck 4 Naso/Oral Tube 08/22/221814 nasogastric left nostril 08/22/221814 left nostril 3 Trach Airway 08/21/22194708/21/221947 -- 4 Prophylaxis: Lovenox, SCD, activity per PRS Disposition: Floor status, Attempt Cardiopulmonary Resuscitation - Inpatient Discharge: Plan for d/c TBD; Needs trach supplies, suction, VNA; Follow-up ENT Toño Pacheco MD, PGY1 08/25/22 8:57 AM ENT Team Pager: [phone] * Akhil Martinez PA - 08/25/2022 7:48 AM EDT Plastic Surgery Inpatient Progress Note (Team Pager #[phone] Date of surgery: 08/21/22 CC/Procedure(s): Oromandibular reconstruction [...] CALLY Owens Plastic Surgery Inpatient Team Pager #[phone] * Cherelle Resendiz, [facility] - 08/25/2022 6:14 AM EDT RT [...] Bedside Yes 08/24/222004 Emergency Airway Sign at [facility]? Yes 08/24/222004 Trach Care Performed: [...] plan with provider [place] Red 2 Provider S. Caille CLEANER AND POLISHER . Current Nutrition Regimen: Active Orders Diet NPO diet (Give Meds) Frequency: Effective Now Number of Occurrences: Until Specified Assessment: Lab Results Component Value Date NA 132 (L) 08/24/2022 K 3.3 (L) 08/24/2022 CL 97 (L) 08/24/2022 CO2 24 08/24/2022 BUN 10 08/24/2022 CREATININE 0.56 (L) 08/24/2022 ESTGFR 110 08/24/2022 MAGNESIUM 0.80 08/24/2022 CALCIUM 8.2 (L) 08/24/2022 PHOS 2.5 08/24/2022 [id number] 213 (L) 08/22/2022 No results found for: [...] than 1 NPWT 08/21/22 1825 leg 08/21/22 182 -- 3 Closed/Suction Drain Right;Anterior Neck Bulb 15 Hungarian 08/21/22 1947 Neck 3 Oxygen Therapy / [...] sulfate, HYDROmorphone OR HYDROmorphone OR [DISCONTINUED] HYDROmorphone, zlzndz-ovqoddpl-jhidgpq DR AND sodium bicarbonate, sodium chloride 0.9 % (flush), lidocaine, ondansetron, prochlorperazine Anthropometrics: Admit Weight: 43.91 kg Estimated body mass index is 18.83 kg/m?? as calculated from the following: Height as of this encounter: 157.5 cm (5' 2). Weight as of this encounter: 46.7 kg (102 lb 15.3 oz). [place]well Body Weight (IBW) (kg): 50 Wt Readings [...] MS, RD, LDN Clinical Dietitian Pager # [phone] * Viola Kathleen, PT - 08/24/2022 12:24 PM EDT Physical Therapy Intervention Note Treatment Number PT: 2 Patient profile: Theresa Hollis is a 52 y.o. 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 She underwent tracheostomy, neck exploration, mandible excision, and fibula free flap reconstruction 08/21 with ENT and PRS. Total duration of encounter: 3 days Social History: Patient lives with Harinder in a single level home in [place]. Has ~ 15 IRENE without rails. Normallyindependent without device. 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 Time IN / OUT: 9285-2785 Total Minutes, Physical Therapy: 47 Billing Code: x3 TEF Thank you for this consult. Viola Kathleen, PT Pager: [phone] Physical Therapy Inpatient Rehabilitation Department * Toño Pacheco MD - 08/24/2022 9:14 AM EDT OTOLARYNGOLOGY - HEAD & NECK SURGERY DAILY PROGRESS NOTE Name: Theresa Hollis Age/Sex: 52 y.o. female Attending: Roberth Lee MD Hospital Day: 4 3 Days Post-Op Patient ID/Reason for Admission Theresa Hollis is a 52 y.o. female with a history of I2N6gU0 SCCa of the left lateral tongue s/p [...] 1 Closed/Suction Drain Right;Anterior Neck Bulb 15 Hungarian 08/21/221946 Neck 3 Naso/Oral Tube 08/22/221814 nasogastric left nostril 08/22/221814 left nostril 2 Trach Airway 08/21/22194708/21/221947 -- 3 Prophylaxis: Lovenox, SCD, activity per PRS Disposition: Floor status, Attempt Cardiopulmonary Resuscitation - Inpatient Discharge: Plan for d/c TBD; Needs trach supplies, suction, VNA; Follow-up ENT Toño Pacheco MD, PGY1 08/24/22 9:15 AM ENT Team Pager: [phone] * Melvi Storm RN - 08/24/2022 8:01 [...] Plastic Surgery Inpatient Progress Note (Team Pager #[phone] Date of surgery: 08/21/22 CC/Procedure(s): Oromandibular reconstruction [...] MENDOZA APRN Plastic Surgery Inpatient Team Pager #[phone] * Sultana Pascual, NETWORK ADMIN - 08/24/2022 4:31 AM EDT Respiratory Therapy [...] trach. Emergency equipment & airway sign @ [facility]. Pt transferred to step down unit at approximately 0215; report given to RT covering unit. PLAN: Continue respiratory supportive care with trach care. Sultana Pascual RCP * Princess Oliver RN - 08/24/2022 2:00 AM EDT Theresa Wyattteddynorm downgraded/transferred to ISCU room 84. Report called [...] who have questions please contact the health healthcare management that requested your imaging first. Airway: Trach Airway 08/21/221947 (Active) Tracheal Airway Size Verfication 6 mm 08/23/22744 Appearance clean;crusty 08/23/2245 Tube Securement sutures 08/23/22 0745 Trach Cap Status uncapped/unplugged 08/23/22 0745 Tube Care/Reposition dressing changed;inner cannula changed;site care done 08/23/2245 Manual Resuscitator at Bedside Yes 08/23/22 0745 Spare Trach At Bedside Yes 08/23/22 0745 Trach ToGo kit at Bedside Yes 08/23/22 0745 Emergency Airway Sign at [facility]? Yes 08/23/22 0745 Trach Care Performed: Trach Airway 08/21/221947-Tube Care/Reposition: dressing changed, inner cannula changed, site care done Assessment: Patient received with sutured [address], on HTC 40L/21%. Flow weaned to 35L. No other changes made. Trach care completed, TTGK at bedside, emergency airway sign at [facility]. Plan: Care for airway, provide humidification. RT Carmelina * Viola Kathleen, PT - 08/23/2022 2:21 PM EDT Physical Therapy Evaluation Patient profile: Theresa Hollis is a 52 y.o. 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 s/p [...] MANDIBLE performed by Alfred Vital MD at [facility] PRO DEBRIDEMENT BONE MUSCLE &/FASCIA 20 SQ CM/< Bilateral 11/17/2019 DEBRIDEMENT SKIN, SUBCU, MUSCLE, BONE, HEAD/NECK (WRVU 4.1) performed by Keyur Ng MD at [facility] MAIN OR PRO INJECTION PLATELET PLASMA WITH IMAGE, HARVEST/PREP 11/17/2019 INJECTION(S), PLATELET RICH PLASMA, ANY SITE, INCLUDING IMAGE GUIDANCE, HARVESTING AND PREPARATION WHEN PERFORMED performed by Keyur Ng MD at [facility] MAIN OR PRO REMOVAL ERUPTED TOOTH WITH ELEVATION OF MUCOPERIOSTEAL FLAP N/A 05/06/2014 SURGICAL EXTRACTIONS REQUIRING ELEVATION OF MUCOPERIOSTEAL FLAP AND REMOVAL OF BONE OR SECTION OF TOOTH performed by Alfred Vital MD at [facility] MAIN OR PRO REMOVAL ERUPTED TOOTH WITH ELEVATION OF MUCOPERIOSTEAL FLAP Bilateral 11/17/2019 SURGICAL EXTRACTIONS REQUIRING ELEVATION OF MUCOPERIOSTEAL FLAP AND REMOVAL OF BONE OR SECTION OF TOOTH (WRVU 1.09) performed by Keyur Ng MD at [facility] MAIN OR SKIN GRAFT Social History: Patient lives with Harinder in a single level home in [place]. Has ~ 15 IRENE without rails. Normallyindependent without device. 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 Time IN / OUT: 5637-4088 Total Minutes, Physical Therapy: 35 Billing Code: x1 mod ben Thank you for this consult. Viola Kathleen, PT Pager: [phone] Physical Therapy Inpatient Rehabilitation Department * Toño Pacheco MD - 08/23/2022 10:47 AM EDT OTOLARYNGOLOGY - HEAD & NECK SURGERY DAILY PROGRESS NOTE Name: Theresa Hollis Age/Sex: 52 y.o. female Attending: Roberth Lee MD Hospital Day: 3 2 Days Post-Op Patient ID/Reason for Admission Theresa Hollis is a 52 y.o. female with a history of L3B9vI5 SCCa of the left lateral tongue s/p [...] 2 Closed/Suction Drain Right;Anterior Neck Bulb 15 Hungarian 08/21/221946 Neck 2 Naso/Oral Tube 08/22/221814 nasogastric left nostril 08/22/221814 left nostril 1 Trach Airway 08/21/22194708/21/221947 -- 2 Prophylaxis: Lovenox, SCD, activity per PRS Disposition: Step down status, Attempt Cardiopulmonary Resuscitation - Inpatient Discharge: Plan for d/c TBD; Needs trach supplies, suction, VNA; Follow-up ENT Toño Pacheco MD, PGY1 08/23/22 10:48 AM ENT Team Pager: [phone] * Kelly Laguna MD - 08/23/2022 8:01 AM EDT Plastic Surgery Inpatient Progress Note (Team Pager #[phone] Date of surgery: 08/21/22 CC/Procedure(s): Oromandibular reconstruction [...] CALLY Baker Plastic Surgery Inpatient Team Pager #[phone] Attending: Pt seen and examined. Introral repair [...] Eaton, PGY-2 Plastic & Reconstructive Surgery Pager: [phone] * Lenora Jorge RD - 08/22/2022 1:57 [...] 08/22/2022 CALCIUM 8.8 08/22/2022 PHOS 2.7 08/22/2022 [id number] (L) 08/22/2022 Lab Results Component Value Date POCGLU 172 08/21/2022 Patient Lines/Drains/Airways Status Active Nutritional LDAs Name Placement date Placement time Site Days Peripheral IV Line - Single Lumen 08/21/22 0838 18 gauge 08/21/22 0838 -- 1 Peripheral IV Line - Single Lumen 08/21/222105 median vein (underside of arm), left 20 gauge 08/21/22 210 -- 1 NPWT 08/21/22 1825 leg 08/21/22 182 -- 1 Closed/Suction Drain Right;Anterior Neck Bulb 15 Hungarian 08/21/22 1947 Neck 1 Urethral Catheter 08/21/22 [...] Other Sites: farrukh, idb Last 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 [place] Body Weight (IBW) (kg): 50 Wt Readings [...] CNSC, LD Clinical Nutrition * Lesly Canela NETWORK ADMIN - 08/22/2022 12:04 PM EDT Respiratory Therapy [...] Plastic Surgery Inpatient Progress Note (Team Pager #[phone]) Date of surgery: 08/21/22 CC/Procedure(s): Oromandibular reconstruction [...] primary team Plastic Surgery Inpatient Team Pager #[phone] Attending: Pt seen and examined. I agree [...] 52 y.o. female with a history of N2C5eJ1 SCCa of the left lateral tongue s/p [...] (underside of arm), left 20 gauge 08/21/22 210 -- 1 Closed/Suction Drain Right;Anterior Neck Bulb 15 Hungarian 08/21/221946 Neck 1 Urethral Catheter 08/21/22 0845 14 08/21/22 0845 -- 1 Trach Airway 08/21/22194708/21/221947 -- 1 Prophylaxis: OK for lovenox tonight, SCD, activity per PRS Disposition: Critical Care status, Attempt Cardiopulmonary Resuscitation - Inpatient Discharge: Plan for d/c TBD; Needs trach supplies, suction, VNA; Follow-up ENT Toño Pacheco MD, PGY1 08/22/22 8:10 AM ENT Team Pager: [phone] * Jatinder Myers MD - 08/22/2022 12:30 [...] doppler signal present. Cap refill <2 sec. [place]. WWP Assessment/Plan: Theresa Hollis is a 52 y.o. female s/p mandible reconstruction with free fibula flap currently in stable condition and recovering well. - pain well controlled - hemodynamically stable - UOP adequate Jatinder Myers MD Pager: [phone] * Jatinder Myers MD - 08/22/2022 12:29 AM EDT OTOLARYNGOLOGY - HEAD & NECK SURGERY POST OP CHECK Name: Theresa Hollis Age/Sex: 52 y.o. female Attending: Roberth Lee MD Hospital Day: 2 1 Day Post-Op Patient ID/Reason for Admission Theresa Hollis is a 52 y.o. female with a history of G8L7mI8 SCCa of the left lateral tongue s/p [...] s/p Procedure(s): EXCISION OF BONE, MANDIBLE (WRVU .03) @EXPLORATION NOT FOLLOWED BY SURGICAL REPAIR, ARTERY; NECK (CAROTID OR SUBCLAVIAN) (WRVU 7.5) RECONSTRUCT MANDIBLE, EXTRAORAL, W/ TRANSOSTEAL BONE PLATE (WRVU 13.62) TRACHEOSTOMY, PLANNED (WRVU 5.56) RECONSTRUCT MANDIBLE OR MAXILLA, ENDOSTEAL IMPLANT, COMPLETE (WRVU 18.77) IMPRESSION AND CUSTOM PREPARATION,MANDIBULAR RESECTION PROSTHESIS (WRVU 22.85) @FLAP, FREE OSTEOCUTANEOUS W MICROVASC, FIBULA (WRVU 45.43). Patient is doing well postoperatively. Continue with current care plan. __ Jatinder Kristina Myers MD, PGY1 08/22/22 12:29 AM ENT Team Pager: [phone] * Jennifer Wong RT - 08/21/2022 8:30 [...] barrier technique was used throughout. A 4 Hungarian glide catheter was placed as a nasoenteric [...] with an 8mm balloon catheter. A 16 Hungarian balloonretained gastrostomy tube was placed. The retention [...] of the left lateral tongue; need for care home enteral accessfor nutrition IR workflow: Procedure request [...] ALKPHOS 42 12/06/2016 Allergies: Tylenol [acetaminophen], Allergenic egjczlk-kdgt-wrwjn, Peanut, Benzocaine, and Birch Imaging: No relevant [...] 60 tablet 5 fluocinolone and shower cap (Leach-Smoothe/FS Scalp Oil) 0.01 % Oil Apply topically [...] Date GLOSSECTOMY Right partial LYMPHADENECTOMY SND 1-5 WA PREP FACE/ORAL PROST MANDIBULAR N/A 08/21/2022 IMPRESSION AND CUSTOM PREPARATION,MANDIBULAR RESECTION PROSTHESIS (WRVU 22.85) performed by Keyur Ng MD at [facility] MA[facility] OR PRO ADJ TISS XFER HEAD, FAC, HAND <10SQCM 08/21/2022 ADJ.TISSUE TRANSFER, REARRANGEMENT, 10SQ.CM OR LESS, NECK (WRVU 8.6) performed by Kelly Laguna MDat [facility] MA[facility] OR PRO BONE BIOPSY,TROCAR/NEEDLE SUPERF Left 05/06/2014 BIOPSY BONE, TROCAR OR NEEDLE, SUPERFICIAL, MANDIBLE performed by Alfred Vital MD at [facility] PRO BONE-SKIN GRAFT, MICROVASCULAR 08/21/2022 @FLAP, FREE OSTEOCUTANEOUS W MICROVASC, FIBULA (WRVU 45.43) performed by Kelly Laguna MD at [facility] MAIN OR PRO CERVICAL LYMPHADECTOMY MODIFIED RADICAL NECK DISSECTION Right 08/21/2022 @CERVICAL LYMPHADENECTOMY (MODIFIED RADICAL NECK DISSECTION)-JANA , ROBOTIC (WRVU 23.95) performed by Roberth Lee MD at [facility] MAIN OR PRO DEBRIDEMENT BONE MUSCLE &/FASCIA 20 SQ CM/< Bilateral 11/17/2019 DEBRIDEMENT SKIN, SUBCU, MUSCLE, BONE, HEAD/NECK (WRVU 4.1) performed by Keyur Ng MD at [facility] MA[facility] OR PRO EXCISION OF BONE, LOWER JAW Bilateral 08/21/2022 EXCISION OF BONE, MANDIBLE (WRVU 10.03) performed by Roberth Lee MD at [facility] MAIN OR [facility] INJECTION PLATELET PLASMA WITH IMAGE, HARVEST/PREP 11/17/2019 INJECTION(S), PLATELET RICH PLASMA, ANY SITE, INCLUDING IMAGE GUIDANCE, HARVESTING AND PREPARATION WHEN PERFORMED performed by Keyur Ng MD at [facility] MAIN OR PRO RECONSTR JAW, FULL ENDO IMPLNT N/A 08/21/2022 RECONSTRUCT MANDIBLE OR MAXILLA, ENDOSTEAL IMPLANT, COMPLETE (WRVU 18.77) performed by Keyur Ng MD at [facility] OR [facility] RECONSTR MANDIBLE, BONE PLATE 08/21/2022 RECONSTRUCT MANDIBLE, EXTRAORAL, W/ TRANSOSTEAL BONE PLATE (WRVU 13.62) performed by Kelly Laguna MD at [facility] OR [facility] REMOVAL ERUPTED TOOTH WITH ELEVATION OF MUCOPERIOSTEAL FLAP N/A 05/06/2014 SURGICAL EXTRACTIONS REQUIRING ELEVATION OF MUCOPERIOSTEAL FLAP AND REMOVAL OF BONE OR SECTION OF TOOTH performed by Alfred Vital MD at [facility] OR [facility] REMOVAL ERUPTED TOOTH WITH ELEVATION OF MUCOPERIOSTEAL FLAP Bilateral 11/17/2019 SURGICAL EXTRACTIONS REQUIRING ELEVATION OF MUCOPERIOSTEAL FLAP AND REMOVAL OF BONE OR SECTION OF TOOTH (WRVU 1.09) performed by Keyur Ng MD at [facility] OR [facility] SPLIT GRFT TRUNK, ARM, LEG <100SQCM N/A 08/21/2022 SPLIT THICK SKIN GRAFT,100 SQ CM OR LESS, LEGS (WRVU 9.9) performed by Kelly Laguna MD at [facility] OR [facility] TRACHEOSTOMY, PLANNED N/A 08/21/2022 TRACHEOSTOMY, PLANNED (WRVU 5.56) performed by Roberth Lee MD at [facility] OR SKIN GRAFT Social History [...] 09/01/2022 Princess Abarca PA-C * Dona Mao, - 08/21/2022 8:30 PM EDT Critical Care [...] MANDIBLE performed by Alfred Vital MD at [facility] PRO DEBRIDEMENT BONE MUSCLE &/FASCIA 20 SQ CM/< Bilateral 11/17/2019 DEBRIDEMENT SKIN, SUBCU, MUSCLE, BONE, HEAD/NECK (WRVU 4.1) performed by Keyur Ng MD at [facility] MAIN OR PRO INJECTION PLATELET PLASMA WITH IMAGE, HARVEST/PREP 11/17/2019 INJECTION(S), PLATELET RICH PLASMA, ANY SITE, INCLUDING IMAGE GUIDANCE, HARVESTING AND PREPARATION WHEN PERFORMED performed by Keyur Ng MD at [facility] MAIN OR PRO REMOVAL ERUPTED TOOTH WITH ELEVATION OF MUCOPERIOSTEAL FLAP N/A 05/06/2014 SURGICAL EXTRACTIONS REQUIRING ELEVATION OF MUCOPERIOSTEAL FLAP AND REMOVAL OF BONE OR SECTION OF TOOTH performed by Alfred Vital MD at [facility] MAIN OR PRO REMOVAL ERUPTED TOOTH WITH ELEVATION OF MUCOPERIOSTEAL FLAP Bilateral 11/17/2019 SURGICAL EXTRACTIONS REQUIRING ELEVATION OF MUCOPERIOSTEAL FLAP AND REMOVAL OF BONE OR SECTION OF TOOTH (WRVU 1.09) performed by Keyur Ng MD at [facility] MA[facility] OR SKIN GRAFT Prior To Admission Medications: Medications Prior to Admission Medication Sig Dispense Refill Last Dose levothyroxine (Synthroid) 100 mcg tablet TAKE ONE TABLET BY MOUTH EVERY DAY 90 tablet 3 08/21/2022 amoxicillin-clavulanate (Augmentin) 500-125 mg Tablet Take 1 tablet by mouth 2 times daily. 60 tablet 5 08/18/2022 fluocinolone and shower cap (Leach-Smoothe/FS Scalp Oil) 0.01 % Oil Apply topically [...] Allergies Allergen Reactions Tylenol [Acetaminophen] Anaphylaxis Allergenic Yoyhrol-Ukme-Morjw Itching Applesauce Peanut Itching Benzocaine Made pt [...] PGY3 08/21/22 7:36 AM ENT Team Pager: [phone] * Kelly Laguna MD - 08/21/2022 7:30 [...] MANDIBLE performed by Alfred Vital MD at [facility] PRO DEBRIDEMENT BONE MUSCLE &/FASCIA 20 SQ CM/< Bilateral 11/17/2019 DEBRIDEMENT SKIN, SUBCU, MUSCLE, BONE, HEAD/NECK (WRVU 4.1) performed by Keyur Ng MD at [facility] OR PRO INJECTION PLATELET PLASMA WITH IMAGE, HARVEST/PREP 11/17/2019 INJECTION(S), PLATELET RICH PLASMA, ANY SITE, INCLUDING IMAGE GUIDANCE, HARVESTING AND PREPARATION WHEN PERFORMED performed by Keyur Ng MD at [facility] MAIN OR PRO REMOVAL ERUPTED TOOTH [...] 1.09) performed by Keyur Ng MD at [facility] MAIN OR SKIN GRAFT Family History [...] Allergies Allergen Reactions Tylenol [Acetaminophen] Anaphylaxis Allergenic Ubvvpzw-Fuee-Kpmnl Itching Applesauce Peanut Itching Benzocaine Made pt tongue red and angry. Irritant reaction - allergy testing negative Birch Other (See Comments) Birch pollen: wheezing and throat constriction Review of systems: As per HPI, otherwise non-contributory. Exam: General: NAD Resp: CTAB CV: normal rate, regular rhythm A/P: hTeresa Hollis is a 52 y.o. 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 - Proceed to OR. The risks, benefits and indications were reviewed with the patient and there remains an indication for surgery. Consent signed. Anabell Nelson MD Plastic Surgery Resident Pager# [phone] Patient was seen and examined in the [...] to the planned procedure. Hand Hygiene: The resident manager did perform hand hygiene prior to line insertion. Catheter type: PICC Lot number: [id number] Procedure Technique: Skin was prepped with chlorhexidine. [...] Post-procedure Dx: same Procedure: Tracheostomy Tube Change ([id number]) Pre-procedure checklist: Correct Patient Correct time Current [...] Toño Pacheco MD ENT PGY-1 Personal Pager #[phone] ENT Team Pager #[phone] * Meredith Root APRN - 08/22/2022 6:28 PM EDT Feeding tube placement per direct laryngoscopy: Used a Mac 3 blade for direct visualization of esophagus and larynx s/p three attempts today for nasal enteral tube placement today in the ICU. With railway signal operator Dr. Berkowitz at bedside, divided doses of 250 mg Propofol and 30mg Rocuronium given while Dilaudid COLOR CHECKER ROVING OR YARN and continuous Ketamine infusion 0.18 mg/kg/hr in [...] discharge to home with family support and [facility] for RN, [facility] for tube feed/supplies, and [facility] for SX machine. Needs for Transition of Care: Plan for discharge is: Home w/ Services Outpatient Agency/Support Group Needs: Homecare agency Resp Needs: *SX machine Company: [employer] Status: Hospital Delivery Nutrition Type: Tube Feeds Access: PEG / G Tube Location: Referred to [facility] Coordination Home Health Services: Registered Nurse Agency Referrals & Follow-up Care: Contact information for follow-up [facility] H[facility], [facility] [address] [place] [address] [facility], [facility] [address] [place] [address] Transportation: family or friend will provide-via private [...] none Patient is insured through: Primary Insurance: [place] / [place] / Product Type: *No Product type* / Secondary Insurance: N/A Prescription Coverage: Yes This plan was formulated with input from patient, (please identify family/friend involved if applicable) and team. All are in agreement with plan. Hollie JONES , RN Pager #[phone] * Plan of Care - Araceli Velasco [...] Moore MD - 09/04/2022 4:17 PM EDT [facility] Acute Care Surgery Consult Note Consult Reason: PEG placement HPI: Theresa Hollis is a 52 y.o. female with a history of S9Z6kM9 SCCa of the left lateral tongues/p hemiglossectomy, left neck dissection 1-5, skin graft, allograft (10/31/06) followed by adjuvantchemo XRT now presenting with ORN of the mandible. She underwent tracheostomy, neck exploration, mandible excision, and fibula free flap reconstruction 08/21 with ENT and PRS. Her NGT was removed on 08/30 and initiated on pur??ed diet as per SUBSTANCE ADDICTION COORDINATOR recommendation. However she was having difficulty swallowing [...] 52 y.o. female with a history of S1X2aC3 SCCa of the left lateral tongue s/p [...] (Interventions Implemented as Appropriate) Flowsheets (Taken 09/04/2022 0508) Anxieties, Fears or Concerns: none reported Individualized [...] Iqbal MD - 09/03/2022 10:34 AM EDT [facility] Acute Care Surgery Consult Note Consultation Requested by: Roberth Lee MD Consult Reason: PEG placement HPI: Theresa Hollis is a 52 y.o. female with a history of Y3P9mI8 SCCa of the left lateral tongues/p hemiglossectomy, left neck dissection 1-5, skin graft, allograft (10/31/06) followed by adjuvantchemo XRT now presenting with ORN of the mandible. She underwent tracheostomy, neck exploration, mandible excision, and fibula free flap reconstruction 08/21 with ENT and PRS. Her NGT was removed on 08/30 and initiated on pur??ed diet as per SUBSTANCE ADDICTION COORDINATOR recommendation. However as of this a.m., she [...] 52 y.o. female with a history of P5H9qH1 SCCa of the left lateral tongue s/p [...] Martin. Zion Iqbal MD 09/03/2022 General Surgery p.[phone] * Consult Note - Anthony Brizuela - 09/03/2022 7:33 AM EDT Images from the original note were not included. Internal Medicine Initial Consult Note Admit date: Hospital day: Service: Primary Attending Consult Attending 08/21/2022 ENT MD Roberth Powell MD Reason for Consult: Hyponatremia and elevated TSH HPI: Per Dr. Marx's note on 09/02/22: Theresa has a pmh of hypothyroidism (radiation induced), depression, I3V1eP4 SCCa of the left lateraltongue s/p hemiglossectomy, [...] 08/22. On 08/29 she was evaluated by SUBSTANCE ADDICTION COORDINATOR, who recommended a trial of PO intake. [...] her home synthroid has been given between 1587-9668 (initially via NGT, now PO). Today, patient [...] 60 tablet 5 fluocinolone and shower cap (Leach-Smoothe/FS Scalp Oil) 0.01 % Oil Apply topically [...] Allergies Allergen Reactions Tylenol [Acetaminophen] Anaphylaxis Allergenic Snobloh-Emni-Ctwwl Itching Applesauce Peanut Itching Benzocaine Made pt tongue red and angry. Irritant reaction - allergy testing negative Birch Other (See Comments) Birch pollen: wheezing and throat constriction Past Surgical History Past Surgical History: Procedure Laterality Date GLOSSECTOMY Right partial LYMPHADENECTOMY SND 1-5 [place] PREP FACE/ORAL PROST MANDIBULAR N/A 08/21/2022 IMPRESSION AND CUSTOM PREPARATION,MANDIBULAR RESECTION PROSTHESIS (WRVU 22.85) performed by Keyur Ng MD at [facility] MAIN OR PRO ADJ TISS XFER HEAD, FAC, HAND <10SQCM 08/21/2022 ADJ.TISSUE TRANSFER, REARRANGEMENT, 10SQ.CM OR LESS, NECK (WRVU 8.6) performed by Kelly Laguna MDat [facility] MAIN OR PRO BONE BIOPSY,TROCAR/NEEDLE SUPERF Left 05/06/2014 BIOPSY BONE, TROCAR OR NEEDLE, SUPERFICIAL, MANDIBLE performed by Alfred Vital MD at [facility] PRO BONE-SKIN GRAFT, MICROVASCULAR 08/21/2022 @FLAP, FREE OSTEOCUTANEOUS W MICROVASC, FIBULA (WRVU 45.43) performed by Kelly Laguna MD at [facility] OR [facility] CERVICAL LYMPHADECTOMY MODIFIED RADICAL NECK DISSECTION Right 08/21/2022 @CERVICAL LYMPHADENECTOMY (MODIFIED RADICAL NECK DISSECTION)-JANA , ROBOTIC (WRVU 23.95) performed by Roberth Lee MD at [facility] OR [facility] DEBRIDEMENT BONE MUSCLE &/FASCIA 20 SQ CM/< Bilateral 11/17/2019 DEBRIDEMENT SKIN, SUBCU, MUSCLE, BONE, HEAD/NECK (WRVU 4.1) performed by Keyur Ng MD at [facility] OR [facility] EXCISION OF BONE, LOWER JAW Bilateral 08/21/2022 EXCISION OF BONE, MANDIBLE (WRVU 10.03) performed by Roberth Lee MD at [facility] OR [facility] INJECTION PLATELET PLASMA WITH IMAGE, HARVEST/PREP 11/17/2019 INJECTION(S), PLATELET RICH PLASMA, ANY SITE, INCLUDING IMAGE GUIDANCE, HARVESTING AND PREPARATION WHEN PERFORMED performed by Keyur Ng MD at [facility] OR [facility] RECONSTR JAW, FULL ENDO IMPLNT N/A 08/21/2022 RECONSTRUCT MANDIBLE OR MAXILLA, ENDOSTEAL IMPLANT, COMPLETE (WRVU 18.77) performed by Keyur Ng MD at [facility] OR [facility] RECONSTR MANDIBLE, BONE PLATE 08/21/2022 RECONSTRUCT MANDIBLE, EXTRAORAL, W/ TRANSOSTEAL BONE PLATE (WRVU 13.62) performed by Kelly Laguna MD at [facility] OR [facility] REMOVAL ERUPTED TOOTH WITH ELEVATION OF MUCOPERIOSTEAL FLAP N/A 05/06/2014 SURGICAL EXTRACTIONS REQUIRING ELEVATION OF MUCOPERIOSTEAL FLAP AND REMOVAL OF BONE OR SECTION OF TOOTH performed by Alfred Vital MD at [facility] OR [facility] REMOVAL ERUPTED TOOTH WITH ELEVATION OF MUCOPERIOSTEAL FLAP Bilateral 11/17/2019 SURGICAL EXTRACTIONS REQUIRING ELEVATION OF MUCOPERIOSTEAL FLAP AND REMOVAL OF BONE OR SECTION OF TOOTH (WRVU 1.09) performed [facility] Keyur Ng MD at [facility] [facility] SPLIT GRFT TRUNK, ARM, LEG <100SQCM N/A 08/21/2022 SPLIT THICK SKIN GRAFT,100 SQ CM OR LESS, LEGS (WRVU 9.9) performed by Kelly Laguna MD at [facility] OR [facility] TRACHEOSTOMY, PLANNED N/A 08/21/2022 TRACHEOSTOMY, PLANNED (WRVU 5.56) performed by Roberth Lee MD at [facility] MAIN OR SKIN GRAFT Family History: [...] who have questions please contact the health healthcare management that requested your imaging first. Abdomen 1 view (Generic) (Exam End: 08/22/2022 [...] who have questions please contact the health healthcare management that requested your imaging first. Chest One View (Exam End: 08/22/2022 5:13 [...] who have questions please contact the health healthcare management that requested your imaging first. Abdomen 1 view (Generic) (Exam End: 08/22/2022 [...] who have questions please contact the health healthcare management that requested your imaging first. Chest One View (Exam End: 08/30/2022 8:39 AM) Impression No acute cardiopulmonary disease. Thank you for letting us participate in the care of this patient. If you are a health care provider and have any questions regarding this report, please contact the number below. For patients who have questions please contact the health healthcare management that requested your imaging first. PICC Placement [...] who have questions please contact the health healthcare management that requested your imaging first. Assessment: Theresa is a 52 yo female with a pmh of hypothyroidism (radiation induced), depression, I3I2jE1 SCCa of the left lateral tongue s/p [...] with medicine consult attending, Dr. Mckeon. The [facility] medicine service will signoff for now. Please reach back out to pager #[phone] if another specific questions arises. Anthony Brizuela MD Internal Medicine, PGY3 [place] Pager # [phone] Associated attestation - Shruti Mckeon MD - [...] dose adjustments and had talked with her sheet music salesperson about taking levothyroxine 50 mcg a couple [...] (PICC) Teaching Sheet Peripherally inserted central catheters (utma-ao-xlol) (PICC) are used when you need IV [...] midline catheter? PICC lines are used for care home treatments. PICC lines may be used for [...] can be set up via the nurse Wildlife Rehabilitator to help you. What are possible complications [...] Vascular Access Device Selection, Insertion, and Management, [employer] Access Systems 12/21. A Review of the Efficacy, Safety, Use, and Administration of [employer], [employer] 2005 * Consult Note - Loly Blackwood RN - 09/02/2022 2:14 PM EDT Images from the original note were not included. Infiltration/Extravasation Scale Theresa Hollis [id number] N520/N520-A Infiltration appearance: Infiltration harm % for [...] measuring tape and identifier in the photo) CLINICAL FELLOW CARING FOR THIS PATIENT WILL CONTINUE TO MONITOR AND WILL ASSUME CARE, VASCULAR ACCESS WILL NOT FOLLOW THIS EVENT AT THE SIGNING OF THIS NOTE. * Consult Note - Zion Iqbal MD - 09/02/2022 11:37 AM EDT [facility] Acute Care Surgery Consult Note Consultation Requested by: Roberth Lee MD Consult Reason: PEG placement HPI: Theresa Hollis is a 52 y.o. female with a history of C7H7wE8 SCCa of the left lateral tongues/p hemiglossectomy, left neck dissection 1-5, skin graft, allograft (10/31/06) followed by adjuvantchemo XRT now presenting with ORN of the mandible. She underwent tracheostomy, neck exploration, mandible excision, and fibula free flap reconstruction 08/21 with ENT and PRS. Her NGT was removed on 08/30 and initiated on pur??ed diet as per SUBSTANCE ADDICTION COORDINATOR recommendation. However as of this a.m., she [...] 52 y.o. female with a history of H1R4aI9 SCCa of the left lateral tongue s/p hemiglossectomy, left neck dissection -5, skin graft, allograft (10/31/06) followed by adjuvant [...] Martin. 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 On 08/29 she was evaluated by SUBSTANCE ADDICTION COORDINATOR, who recommended a trial of PO intake. [...] her home synthroid has been given between 0196-5608 (initially via NGT, now PO). Today, patient [...] 60 tablet 5 fluocinolone and shower cap (Leach-Smoothe/FS Scalp Oil) 0.01 % Oil Apply topically [...] Allergies Allergen Reactions Tylenol [Acetaminophen] Anaphylaxis Allergenic Fvdhwua-Whpz-Crgis Itching Applesauce Peanut Itching Benzocaine Made pt tongue red and angry. Irritant reaction - allergy testing negative Birch Other (See Comments) Birch pollen: wheezing and throat constriction Past Surgical History Past Surgical History: Procedure Laterality Date GLOSSECTOMY Right partial LYMPHADENECTOMY SND 1-5 WA PREP FACE/ORAL PROST MANDIBULAR N/A 08/21/2022 IMPRESSION AND CUSTOM PREPARATION,MANDIBULAR RESECTION PROSTHESIS (WRVU 22.85) performed by Keyur Ng MD at [facility] MAIN OR PRO ADJ TISS XFER HEAD, FAC, HAND <10SQCM 08/21/2022 ADJ.TISSUE TRANSFER, REARRANGEMENT, 10SQ.CM OR LESS, NECK (WRVU 8.6) performed by Kelly Laguna MDat [facility] MAIN OR PRO BONE BIOPSY,TROCAR/NEEDLE SUPERF Left 05/06/2014 BIOPSY BONE, TROCAR OR NEEDLE, SUPERFICIAL, MANDIBLE performed by Alfred Vital MD at [facility] PRO BONE-SKIN GRAFT, MICROVASCULAR 08/21/2022 @FLAP, FREE OSTEOCUTANEOUS W MICROVASC, FIBULA (WRVU 45.43) performed by Kelly Laguna MD at [facility] MAIN OR PRO CERVICAL LYMPHADECTOMY MODIFIED RADICAL NECK DISSECTION Right 08/21/2022 @CERVICAL LYMPHADENECTOMY (MODIFIED RADICAL NECK DISSECTION)-JANA , ROBOTIC (WRVU 23.95) performed by Roberth Lee MD at [facility] MAIN OR PRO DEBRIDEMENT BONE MUSCLE &/FASCIA 20 SQ CM/< Bilateral 11/17/2019 DEBRIDEMENT SKIN, SUBCU, MUSCLE, BONE, HEAD/NECK (WRVU 4.1) performed by Keyur Ng MD at [facility] OR [facility] EXCISION OF BONE, LOWER JAW Bilateral 08/21/2022 EXCISION OF BONE, MANDIBLE (WRVU 10.03) performed by Roberth Lee MD at [facility] OR [facility] INJECTION PLATELET PLASMA WITH IMAGE, HARVEST/PREP 11/17/2019 INJECTION(S), PLATELET RICH PLASMA, ANY SITE, INCLUDING IMAGE GUIDANCE, HARVESTING AND PREPARATION WHEN PERFORMED performed by Keyur Ng MD at [facility] MAIN OR [facility] RECONSTR JAW, FULL ENDO IMPLNT N/A 08/21/2022 RECONSTRUCT MANDIBLE OR MAXILLA, ENDOSTEAL IMPLANT, COMPLETE (WRVU 18.77) performed by Keyur Ng MD at [facility] OR [facility] RECONSTR MANDIBLE, BONE PLATE 08/21/2022 RECONSTRUCT MANDIBLE, EXTRAORAL, W/ TRANSOSTEAL BONE PLATE (WRVU 13.62) performed by Kelly Laguna MD at [facility] OR [facility] REMOVAL ERUPTED TOOTH WITH ELEVATION OF MUCOPERIOSTEAL FLAP N/A 05/06/2014 SURGICAL EXTRACTIONS REQUIRING ELEVATION OF MUCOPERIOSTEAL FLAP AND REMOVAL OF BONE OR SECTION OF TOOTH performed by Alfred Vital MD at [facility] OR [facility] REMOVAL ERUPTED TOOTH WITH ELEVATION OF MUCOPERIOSTEAL FLAP Bilateral 11/17/2019 SURGICAL EXTRACTIONS REQUIRING ELEVATION OF MUCOPERIOSTEAL FLAP AND REMOVAL OF BONE OR SECTION OF TOOTH (WRVU 1.09) performed by Keyur Ng MD at [facility] OR [facility] SPLIT GRFT TRUNK, ARM, LEG <100SQCM N/A 08/21/2022 SPLIT THICK SKIN GRAFT,100 SQ CM OR LESS, LEGS (WRVU 9.9) performed by Kelly Laguna MD at [facility] OR PRO TRACHEOSTOMY, PLANNED N/A 08/21/2022 TRACHEOSTOMY, PLANNED (WRVU 5.56) performed by Roberth Lee MD at [facility] OR SKIN GRAFT Family History: [...] who have questions please contact the health healthcare management that requested your imaging first. Abdomen 1 view (Generic) (Exam End: 08/22/2022 [...] who have questions please contact the health healthcare management that requested your imaging first. Chest One View (Exam End: 08/22/2022 5:13 [...] who have questions please contact the health healthcare management that requested your imaging first. Abdomen 1 view (Generic) (Exam End: 08/22/2022 [...] who have questions please contact the health healthcare management that requested your imaging first. Chest One View (Exam End: 08/30/2022 8:39 AM) Impression No acute cardiopulmonary disease. Thank you for letting us participate in the care of this patient. If you are a health care provider and have any questions regarding this report, please contact the number below. For patients who have questions please contact the health healthcare management that requested your imaging first. Assessment: Theresa is a 52 yo female with a pmh of hypothyroidism (radiation induced), depression, U1I4xL8 SCCa of the left lateral tongue s/p [...] discussed with medicine consult attending, Dr. Francois. [facility] medicine will follow labs.Please reach back out to pager #[phone] if another specific questions arises. Lenora Santa MD Internal Medicine, PGY3 [place] Pager # [phone] Associated attestation - Jorge Alberto Francois DO - 09/01/2022 10:34 PM EDT [facility] Medicine Attending Attestation: Patient seen and [...] of two midnights or is on the [facility] inpatient only procedure list (status C) [...] [place] MD - 08/31/2022 4:28 PM EDT [facility] Acute [facility] Surgery Consult Note Consultation Requested by: Roberth Lee MD Consult Reason: PEG placement HPI: Theresa Hollis is a 52 y.o. female with a history of D3W7wS4 SCCa of the left lateral tongues/p hemiglossectomy, left neck dissection 1-5, skin graft, allograft (10/31/06) followed by adjuvantchemo XRT now presenting with ORN of the mandible. She underwent tracheostomy, neck exploration, mandible excision, and fibula free flap reconstruction 08/21 with ENT and PRS. Her NGT was removed on 08/30 and initiated on pur??ed diet as per SUBSTANCE ADDICTION COORDINATOR recommendation. However as of this a.m., she [...] Date GLOSSECTOMY Right partial LYMPHADENECTOMY SND 1-5 WA PREP FACE/ORAL PROST MANDIBULAR N/A 08/21/2022 IMPRESSION AND CUSTOM PREPARATION,MANDIBULAR RESECTION PROSTHESIS (WRVU 22.85) performed by Keyur Ng MD at [facility] MAIN OR PRO ADJ TISS XFER HEAD, FAC, HAND <10SQCM 08/21/2022 ADJ.TISSUE TRANSFER, REARRANGEMENT, 10SQ.CM OR LESS, NECK (WRVU 8.6) performed by Kelly Laguna MDat [facility] MAIN OR [facility] BONE BIOPSY,TROCAR/NEEDLE SUPERF Left 05/06/2014 BIOPSY BONE, TROCAR OR NEEDLE, SUPERFICIAL, MANDIBLE performed by Alfred Vital MD at [facility] BONE-SKIN GRAFT, MICROVASCULAR 08/21/2022 @FLAP, FREE OSTEOCUTANEOUS W MICROVASC, FIBULA (WRVU 45.43) performed by Kelly Laguna MD at [facility] OR PRO CERVICAL LYMPHADECTOMY MODIFIED RADICAL NECK DISSECTION Right 08/21/2022 @CERVICAL LYMPHADENECTOMY (MODIFIED RADICAL NECK DISSECTION)-JANA , ROBOTIC (WRVU 23.95) performed by Roberth Lee MD at [facility] OR [facility] DEBRIDEMENT BONE MUSCLE &/FASCIA 20 SQ CM/< Bilateral 11/17/2019 DEBRIDEMENT SKIN, SUBCU, MUSCLE, BONE, HEAD/NECK (WRVU 4.1) performed by Keyur Ng MD at [facility] OR [facility] EXCISION OF BONE, LOWER JAW Bilateral 08/21/2022 EXCISION OF BONE, MANDIBLE (WRVU 10.03) performed by Roberth Lee MD at [facility] OR [facility] INJECTION PLATELET PLASMA WITH IMAGE, HARVEST/PREP 11/17/2019 INJECTION(S), PLATELET RICH PLASMA, ANY SITE, INCLUDING IMAGE GUIDANCE, HARVESTING AND PREPARATION WHEN PERFORMED performed by Keyur Ng MD at [facility] OR [facility] RECONSTR JAW, FULL ENDO IMPLNT N/A 08/21/2022 RECONSTRUCT MANDIBLE OR MAXILLA, ENDOSTEAL IMPLANT, COMPLETE (WRVU 18.77) performed by Keyur Ng MD at [facility] OR [facility] RECONSTR MANDIBLE, BONE PLATE 08/21/2022 RECONSTRUCT MANDIBLE, EXTRAORAL, W/ TRANSOSTEAL BONE PLATE (WRVU 13.62) performed by Kelly Laguna MD at [facility] OR [facility] REMOVAL ERUPTED TOOTH WITH ELEVATION OF MUCOPERIOSTEAL FLAP N/A 05/06/2014 SURGICAL EXTRACTIONS REQUIRING ELEVATION OF MUCOPERIOSTEAL FLAP AND REMOVAL OF BONE OR SECTION OF TOOTH performed by Alfred Vital MD at [facility] OR [facility] REMOVAL ERUPTED TOOTH WITH ELEVATION OF MUCOPERIOSTEAL FLAP Bilateral 11/17/2019 SURGICAL EXTRACTIONS REQUIRING ELEVATION OF MUCOPERIOSTEAL FLAP AND REMOVAL OF BONE OR SECTION OF TOOTH (WRVU 1.09) performed by Keyur Ng MD at [facility] MAIN OR PRO SPLIT GRFT TRUNK, ARM, LEG <100SQCM N/A 08/21/2022 SPLIT THICK SKIN GRAFT,100 SQ CM OR LESS, LEGS (WRVU 9.9) performed by Kelly Laguna MD at [facility] MAIN OR PRO TRACHEOSTOMY, PLANNED N/A 08/21/2022 TRACHEOSTOMY, PLANNED (WRVU 5.56) performed by Roberth Lee MD at [facility] MAIN OR SKIN GRAFT MEDICATIONS: No current facility-administered medications on file prior to encounter. Current Outpatient Medications on File Prior to Encounter Medication Sig Dispense Refill amoxicillin-clavulanate (Augmentin) 500-125 mg Tablet Take 1 tablet by mouth 2 times daily. 60 tablet 5 fluocinolone and shower cap (Leach-Smoothe/FS Scalp Oil) 0.01 % Oil Apply topically [...] Allergies Allergen Reactions Tylenol [Acetaminophen] Anaphylaxis Allergenic Ebmbzud-Hhxz-Drhxh Itching Applesauce Peanut Itching Benzocaine Made pt [...] 52 y.o. female with a history of B2L1pC5 SCCa of the left lateral tongue s/p [...] [place]. Zion Iqbal MD 08/31/2022 General Surgery p.[phone] Attending Addendum I have reviewed the history [...] ENT able to provide OR space sooner D. Sony [place] MD * Plan of Care - [...] Olivia Rodriguez Urgency Level: FYI Callback Number: [phone] The following Message was sent: [FYI] - Callback:[phone]. Pt is still having trouble sleeping, no sleep at all - Olivia Rodriguez The following status was returned from the senior sql server database developer: Page for [phone] successfully sent to [phone] [...] PM EDT MAXINE (Behavioral Intervention Team) [facility] met briefly with this patient. Patient wrote on her white board that she had just met with Jessica from [facility]Pole Peeling Machine Operator Helper and they were able to identify a [...] by patient and/or team. Brittanie Denton MA, [facility] Mental [facility] Services - BIT (Behavioral Intervention Team) Dept. of Psychiatry - Inpatient Psych. Services Pager: [phone] Electronically signed by Brittanie Denton [facility] at 08/28/2022 3:10 PM EDT * Plan of Care - Bridgett Bhatti [...] talk with to give her support, social worker aide and senior integration architect consult suggested and pt is open for [...] admitted on 08/21/2022 with a history of G8L9fI5 SCCa of the left lateral tongue s/p [...] Harinder in a single level home in [place]. Has ~ 15 IRENE without rails. Normallyindependent without device. 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 Ladi Jean, OTR Pager [phone] Occupational Therapy Rehabilitation Department * Plan of [...] pt. 1725 Pt transferred with [facility] to [facility] with meds, chart, trach to go kit, [...] improved with addition of multi-modal approach including COLOR CHECKER ROVING OR YARN - see MAR for details. NG tube [...] surrogate would be surrogate decision maker per [place] surrogate decision making law. (Only good for 180 days) Any patient receiving care in [place] must abide by [place] law. The hierarchy for surrogate decision making [...] (i) The agent with financial power of continuous drier helper or a conservator appointed in accordance with [...] Current DME: none Home Address confirmed as: [address] [facility] [address] Social & Family Supports: All names listed below confirmed with patient as current and correct Extended Emergency Contact Information Primary Emergency Contact: STEPHAN HOLLIS Address: [address] [place] [address] [facility] Relation: Spouse Current [...] Specific Information: denies Health/Prescription Coverage: Primary Insurance: [employer] Payor: [place] / Plan: [facility] VHP / Product Type: *No Product type* / Secondary Insurance: N/A ; Prescription Coverage: Yes Preferred Pharmacy: [id number] - [place], [place] - [address] [facility] [address] [place] [id number] [place] Status: Patient is a : No Primary Care Provider confirmed: Tita Méndez, JEANINE [phone] Patient/Caregiver Goals of Treatment: return home when medically ready for discharge. Potential Needs for Transition of Care: home health care Agency Referrals: I have met with the patient to: discuss discharge planning needs. provide the [facility], Office of Care Management letter from the It Integration Architect pertaining to rehab referrals. provide a letter describing our affiliations within the [facility] and educate about their right to choose where referrals are sent. provide a list of Home Health Agencies / Durable Medical Equipment vendors which serve their preferred geographic area. provided patient with [facility] Star Quality Rating handout. They have requested referrals to: [facility] [address] [place] [address] Note routed to a Inkjet Operator who will communicate referrals to facilities and [...] care planning. Dominique VALLES, RN CM Phone: [phone] Pager: [phone] * Brief Op Note - Ilda Estrada MD - 08/21/2022 8:00 PM EDT Brief Operative Note Patient Name: Theresa Hollis : [id number] MR#: [id number] Case Date: 08/21/2022 Surgeon: Surgeon(s) and Role: [...] Operative Note Patient Name: Theresa Hollis : [id number] MR#: [id number] Case Date: 08/21/2022 Surgeon: Surgeon(s) and Role: [...] Laguna MD - 08/21/2022 9:26 AM EDT [facility] Operative Note Patient Name: Theresa Hollis : [id number] MR#: [id number] Case Date: 08/21/2022 Surgeon: Surgeon(s) and Role: [...] the fibula was then secured to the aniak mandible using 2 of the drill holes. Appropriate size screws were placed based on the measurements from the virtual surgical planning. Once this was complete operating microscope was then brought in the vessels were prepared under the operating microscope the 2 vena comitans were repaired to the deep neck veins using a 4 mm and a 3 mm tube roller and then the artery was repaired with [...] Ng MD - 08/21/2022 9:26 AM EDT [facility] Operative Note Patient Name: Theresa Hollis : [id number] MR#: [id number] Case Date: 08/21/2022 Surgeon: Surgeon(s) and Role: [...] in conjunction with Dr. Laguna and Dr. Paydarfar to hold off on inserting the denture [...] Adj Tiss Transfer Head, Fac, Hand <10Sqcm ([id number]) Yes 08/21/2022 8:08 AM EDT H/O tongue cancer Osteoradionecrosis of jaw Split Grft Trunk, Arm, Leg <100Sqcm ([id number]) Yes 08/21/2022 8:08 AM EDT H/O tongue cancer Osteoradionecrosis of jaw Reconstr Mandible, Bone Plate ([id number]) Yes 08/21/2022 8:08 AM EDT H/O tongue cancer Osteoradionecrosis of jaw Bone-Skin Graft, Microvascular ([id number]) Yes 08/21/2022 8:08 AM EDT H/O tongue cancer Osteoradionecrosis of jaw Impression & Preparation Mandibular Resection Prosthesis ([id number]) Yes 08/21/2022 8:08 AM EDT H/O tongue cancer Osteoradionecrosis of jaw Reconstr Jaw, Full, Endo Implnt ([id number]) Yes 08/21/2022 8:08 AM EDT H/O tongue cancer Osteoradionecrosis of jaw Tracheostomy, Planned ([id number]) Yes 08/21/2022 8:08 AM EDT H/O tongue cancer Osteoradionecrosis of jaw Cervical Lymphadectomy Modified Radical Neck Dissection ([id number]) Yes 08/21/2022 8:08 AM EDT H/O tongue cancer Osteoradionecrosis of jaw Excision Of Bone, Lower Jaw ([id number]) Yes 08/21/2022 8:08 AM EDT H/O tongue [...] who have questions please contact the health healthcare management that requested your imaging first. ? Narrative 09/07/2022 4:26 PM EDT EXAMINATION: XR [...] patients who have questions please contactthe health healthcare management that requested your imaging first. Roberth Lee MD IMG DX ORDERABLES * EKG 12 Lead (09/07/2022 12:42 PM EDT) Ventricular rate 63 BPM MUSE SYSTEM Atrial Rate 63 BPM MUSE SYSTEM P-R Interval 118 ms MUSE SYSTEM QRS Duration 74 ms MUSE SYSTEM Q-T Interval 400 ms MUSE SYSTEM QTC Calculated (Bezet) 409 ms MUSE SYSTEM Calculated P [place] 76 degrees MUSE SYSTEM Calculated R [place] 5 degrees MUSE SYSTEM Calculated T [place] 57 degrees MUSE SYSTEM INTERPRETATION Normal sinus rhythm with sinus arrhythmia Nonspecific T wave abnormality Abnormal ECG When compared with ECG of 30-AUG-2022 08:32, Questionable change in QRS axis Confirmed by MD TERRAZAS SALVATORE ([id number]) on 09/07/2022 2:31:42 PM MUSE SYSTEM 09/07/2022 12:4 2 PM EDT 09/07/2022 2:31 PM EDT Roberth Lee MD ECG ORDERABLES MUSE SYSTEM * (ABNORMAL) Differential, Automated (09/07/2022 12:30 AM EDT) Neutrophil % 79.3 % [facility] Neutrophil Absolute 5.40 1.70 - 6.10 x10(3)/mc L [facility] Lymph % 11.5 % [facility] Lymphocytes Abs 0.8(L) 0.9 - 3.2 x10(3)/mc L [facility] Monocyte % 5.3 % [facility] Monocyte Abs 0.4 0.3 - 0.9 x10(3)/mc L [facility] Eos % 2.9 % [facility] Eosinophils Abs 0.2 0.0 - 0.4 x10(3)/mc L [facility] Basophil % 0.6 % [facility] Baso Absolute 0.0 0.0 - 0.1 x10(3)/mc L [facility] Immature Gran % 0.40 % [facility] Comment: Immature granulocytes(IG's)percentage and absolute count will include metamyelocytes, myelocytes, and promyelocytes. Blood smears from CBCs yielding IG's will be scanned manually for concordance. If this scan disagrees with the automated IG or if promyelocytes are noted, a manual differential will be performed. Immature Gran Absolute 0.03 0.00 - 0.04 x10(3)/mc L [facility] Blood 09/07/2022 12:3 0 AM EDT 09/07/2022 12:40 AM EDT Narrative Resulting Agency Comment Spec In Lab Toño Pacheco MD HEMATOLOGY ORDERABLE S [facility] [place] [address] * (ABNORMAL) Hemogram (09/07/2022 12:30 AM EDT) White Blood Cell 6.8 4.0 - 9.5 x10(3)/mc L [facility] Red Blood Cell 2.77(L) 4.00 - 5.21 x10(6)/mc L [facility] Hemoglobin 8.9(L) 11.7 - 15.5 g/dL [facility] Hematocrit 27.0(L) 35.7 - 45.8 % [facility] Mean Cell Volume 97.5(H) 82.6 - 94.4 fL [facility] Mean Cell Hemoglobin 32.1(H) 27.1 - 32.0 pg [facility] Mean Cell Hemoglobin Concentration 33.0 31.7 - 35.0 g/dL [facility] Platelet 555(H) 145 - 357 x10(3)/mc L [facility] RDW Standard Deviation 43.2 37.0 - 46.0 fL [facility] RDW coefficient of variation 12.2 11.5 - 14.1 % [facility] Mean Platelet Volume 8.7 7.6 - 12.9 fL [facility] NRBC% auto 0.0 % [facility] NRBC Absolute 0.000 0.000 - 0.000 x10(3)/mc L [facility] Blood 09/07/2022 12:3 0 AM EDT 09/07/2022 12:40 AM EDT Narrative Resulting Agency Comment Spec In Lab Toño Pacheco MD HEMATOLOGY ORDERABLE S [facility] [place] [address] * (ABNORMAL) Basic Metabolic Panel (non-fasting) (09/07/2022 12:30 AM EDT) Glucose 88 65 - 199 mg/dL [facility] Comment:Diabetes: >=200 mg/d L plus symptoms Blood Urea Nitrogen 23(H) 8 - 18 mg/dL [facility] Creatinine 0.55(L) 0.70 - 1.20 mg/dL [facility] Sodium 140 135 - 145 mmol/L [facility] Potassium 4.6 3.5 - 5.0 mmol/L [facility] Comment: Please note: ??Patients with WBC >100,000 may have falsely elevated Potassium levels. ??For accurate Potassium quantification in these patients send serum separator tube (gold top) for subsequent determinations. ??Contact the Clinical Chemistry Laboratory if there are any questions. Chloride 103 98 - 107 mmol/L [facility] Carbon Dioxide 29 22 - 31 mmol/L [facility] Anion Gap 8 5 - 15 mmol/L [facility] Calcium 9.4 8.5 - 10.5 mg/dL [facility] Est Glomerular Filtration Rate 111 >=60 mL/min/1. 73 m?? [facility] Comment: This patient's estimated [...] Lab Roberth Lee MD CHEMISTRY ORDERABL ES [facility] [place] [address] * Phosphorus (09/07/2022 12:30 AM EDT) Phosphorus 4.3 2.5 - 4.5 mg/dL [facility] Blood 09/07/2022 12:3 0 AM EDT 09/07/2022 12:40 AM EDT Narrative Resulting Agency Comment Spec In Lab Roberth Lee MD CHEMISTRY ORDERABL ES Performing Organization Address City/[facility] Co de Phone Number [facility] [place] [address] * Magnesium (09/07/2022 12:30 AM EDT) Magnesium 0.94 0.69 - 1.07 mmol/L [facility] Blood 09/07/2022 12:3 0 AM EDT 09/07/2022 12:40 AM EDT Narrative Resulting Agency Comment Spec In Lab Roberth Lee MD CHEMISTRY ORDERABL ES Performing Organization Address [facility] de Phone Number [facility] [place] [address] * (ABNORMAL) Differential, Automated (09/06/2022 4:03 AM EDT) Pathologist [facility] Neutrophil % 74.5 % [facility] Neutrophil Absolute 4.54 1.70 - 6.10 x10(3)/mc L [facility] Lymph % 12.8 % [facility] Lymphocytes Abs 0.8(L) 0.9 - 3.2 x10(3)/mc L [facility] Monocyte % 8.2 % [facility] Monocyte Abs 0.5 0.3 - 0.9 x10(3)/mc L [facility] Eos % 3.0 % [facility] Eosinophils Abs 0.2 0.0 - 0.4 x10(3)/mc L [facility] Basophil % 0.8 % [facility] Baso Absolute 0.0 0.0 - 0.1 x10(3)/mc L [facility] Immature Gran % 0.70 % [facility] Comment: Immature granulocytes(IG's)percentage and absolute count will include metamyelocytes, myelocytes, and promyelocytes. Blood smears from CBCs yielding IG's will be scanned manually for concordance. If this scan disagrees with the automated IG or if promyelocytes are noted, a manual differential will be performed. Immature Gran Absolute 0.04 0.00 - 0.04 x10(3)/mc L [facility] Blood 09/06/2022 4:03 AM EDT 09/06/2022 4:13 AM EDT Narrative Resulting Agency Comment Spec In Lab Toño Pacheco MD HEMATOLOGY ORDERABLE S [facility] [place] [address] * (ABNORMAL) Hemogram (09/06/2022 4:03 AM EDT) White Blood Cell 6.1 4.0 - 9.5 x10(3)/ L [facility] Red Blood Cell 2.72(L) 4.00 - 5.21 x10(6)/ L [facility] Hemoglobin 8.8(L) 11.7 - 15.5 g/dL [facility] Hematocrit 26.3(L) 35.7 - 45.8 % [facility] Mean Cell Volume 96.7(H) 82.6 - 94.4 fL [facility] Mean Cell Hemoglobin 32.4(H) 27.1 - 32.0 pg [facility] Mean Cell Hemoglobin Concentration 33.5 31.7 - 35.0 g/dL [facility] Platelet 593(H) 145 - 357 x10(3)/mc L [facility] RDW Standard Deviation 42.2 37.0 - 46.0 fL [facility] RDW coefficient of variation 12.3 11.5 - 14.1 % [facility] Mean Platelet Volume 8.6 7.6 - 12.9 fL [facility] NRBC% auto 0.0 % [facility] NRBC Absolute 0.000 0.000 - 0.000 x10(3)/ L [facility] Blood 09/06/2022 4:03 AM EDT 09/06/2022 4:13 AM EDT Narrative Resulting Agency Comment Spec In Lab Toño Pacheco MD HEMATOLOGY ORDERABLE S Performing Organization Address City/[facility]/ZIP Co de Phone Number [facility] [place] [address] * (ABNORMAL) Basic Metabolic Panel (non-fasting) (09/06/2022 4:03 AM EDT) Glucose 74 65 - 199 mg/dL [facility] Comment:Diabetes: >=200 mg/d L plus symptoms Blood Urea Nitrogen 20(H) 8 - 18 mg/dL [facility] Creatinine 0.47(L) 0.70 - 1.20 mg/dL [facility] Sodium 139 135 - 145 mmol/L [facility] Potassium 4.2 3.5 - 5.0 mmol/L [facility] Comment: Please note: ??Patients with WBC >100,000 may have falsely elevated Potassium levels. ??For accurate Potassium quantification in these patients send serum separator tube (gold top) for subsequent determinations. ??Contact the Clinical Chemistry Laboratory if there are any questions. Chloride 103 98 - 107 mmol/L [facility] Carbon Dioxide 26 22 - 31 mmol/L [facility] Anion Gap 10 5 - 15 mmol/L [facility] Calcium 9.0 8.5 - 10.5 mg/dL [facility] Est Glomerular Filtration Rate 115 >=60 mL/min/1. 73 m?? [facility] Comment: This patient's estimated [...] Lab Roberth Lee MD CHEMISTRY ORDERABL ES [facility] [place] [address] * Phosphorus (09/06/2022 4:03 AM EDT) Phosphorus 3.8 2.5 - 4.5 mg/dL [facility] Blood 09/06/2022 4:03 AM EDT 09/06/2022 4:13 AM EDT Narrative Resulting Agency Comment Spec In Lab Roberth Lee MD CHEMISTRY ORDERABL ES Performing Organization Address City/[facility]/[place] [address] * Magnesium (09/06/2022 4:03 AM EDT) Magnesium 0.99 0.69 - 1.07 mmol/L [facility] Blood 09/06/2022 4:03 AM EDT 09/06/2022 4:13 AM EDT Narrative Resulting Agency Comment Spec In Lab Roberth Lee MD CHEMISTRY ORDERABL ES Performing Organization Address [facility] Co de Phone Number [facility] [place] [address] * IR G-Tube Placement (09/05/2022 12:12 PM [...] barrier technique was used throughout. ??A 4 Hungarian glide catheter was placed as a nasoenteric [...] with an 8mm balloon catheter. ??A 16 Hungarian balloon retained gastrostomy tube was placed. ??The [...] 2:45 AM EDT) Neutrophil % 79.0 % [facility] Neutrophil Absolute 7.18(H) 1.70 - 6.10 x10(3)/mc L [facility] Lymph % 10.8 % [facility] Lymphocytes Abs 1.0 0.9 - 3.2 x10(3)/mc L [facility] Monocyte % 7.1 % [facility] Monocyte Abs 0.6 0.3 - 0.9 x10(3)/[facility] Eos % 1.8 % [facility] Eosinophils Abs 0.2 0.0 - 0.4 x10(3)/mc L [facility] Basophil % 0.7 % [facility] Baso Absolute 0.1 0.0 - 0.1 x10(3)/ L [facility] Immature Gran % 0.60 % [facility] Comment: Immature granulocytes(IG's)percentage and absolute count will include metamyelocytes, myelocytes, and promyelocytes. Blood smears from CBCs yielding IG's will be scanned manually for concordance. If this scan disagrees with the automated IG or if promyelocytes are noted, a manual differential will be performed. Immature Gran Absolute 0.05(H) 0.00 - 0.04 x10(3)/ L [facility] Blood 09/05/2022 2:45 AM EDT 09/05/2022 2:53 AM EDT Narrative Resulting Agency Comment Spec In Lab Toño Pacheco MD HEMATOLOGY ORDERABLE S [facility] [place] [address] * (ABNORMAL) Hemogram (09/05/2022 2:45 AM EDT) White Blood Cell 9.1 4.0 - 9.5 x10(3)/ L [facility] Red Blood Cell 2.92(L) 4.00 - 5.21 x10(6)/mc L [facility] Hemoglobin 9.7(L) 11.7 - 15.5 g/dL [facility] Hematocrit 28.0(L) 35.7 - 45.8 % [facility] Mean Cell Volume 95.9(H) 82.6 - 94.4 fL [facility] Mean Cell Hemoglobin 33.2(H) 27.1 - 32.0 pg [facility] Mean Cell Hemoglobin Concentration 34.6 31.7 - 35.0 g/dL [facility] Platelet 655(H) 145 - 357 x10(3)/mc L [facility] RDW Standard Deviation 41.6 37.0 - 46.0 fL [facility] RDW coefficient of variation 12.2 11.5 - 14.1 % [facility] Mean Platelet Volume 8.5 7.6 - 12.9 fL [facility] NRBC% auto 0.0 % [facility] NRBC Absolute 0.000 0.000 - 0.000 x10(3)/mc L [facility] Blood 09/05/2022 2:45 AM EDT 09/05/2022 2:53 AM EDT Narrative Resulting Agency Comment Spec In Lab Toño Pacheco MD HEMATOLOGY ORDERABLE S [facility] [place] [address] * (ABNORMAL) Basic Metabolic Panel (non-fasting) (09/05/2022 2:45 AM EDT) Glucose 98 65 - 199 mg/dL [facility] Comment:Diabetes: >=200 mg/d L plus symptoms Blood Urea Nitrogen 20(H) 8 - 18 mg/dL [facility] Creatinine 0.48(L) 0.70 - 1.20 mg/dL [facility] Sodium 138 135 - 145 mmol/L [facility] Potassium 4.4 3.5 - 5.0 mmol/L [facility] Comment: Please note: ??Patients with WBC >100,000 may have falsely elevated Potassium levels. ??For accurate Potassium quantification in these patients send serum separator tube (gold top) for subsequent determinations. ??Contact the Clinical Chemistry Laboratory if there are any questions. Chloride 101 98 - 107 mmol/L [facility] Carbon Dioxide 28 22 - 31 mmol/L [facility] Anion Gap 9 5 - 15 mmol/L [facility] Calcium 9.3 8.5 - 10.5 mg/dL [facility] Est Glomerular Filtration Rate 115 >=60 mL/min/1. 73 m?? [facility] Comment: This patient's estimated [...] CHEMISTRY ORDERABL ES Performing Organization Address [facility] de Phone Number [facility] [place] [address] * Phosphorus (09/05/2022 2:45 AM EDT) Phosphorus 3.9 2.5 - 4.5 mg/dL [facility] Blood 09/05/2022 2:45 AM EDT 09/05/2022 2:53 AM EDT Narrative Resulting Agency Comment Spec In Lab Robreth Lee MD CHEMISTRY ORDERABL ES Performing Organization Address [facility] Co de Phone Number [facility] [place] [address] * Magnesium (09/05/2022 2:45 AM EDT) Magnesium 1.01 0.69 - 1.07 mmol/L [facility] Blood 09/05/2022 2:45 AM EDT 09/05/2022 2:53 AM EDT Narrative Resulting Agency Comment Spec In Lab Roberth Lee MD CHEMISTRY ORDERABL ES Performing Organization Address [facility]/[place] [address] * (ABNORMAL) Differential, Automated (09/04/2022 12:25 AM EDT) Neutrophil % 79.6 % [facility] Neutrophil Absolute 6.60(H) 1.70 - 6.10 x10(3)/mc L [facility] Lymph % 10.3 % [facility] Lymphocytes Abs 0.8(L) 0.9 - 3.2 x10(3)/mc L [facility] Monocyte % 7.0 % [facility] Monocyte Abs 0.6 0.3 - 0.9 x10(3)/ L [facility] Eos % 1.9 % [facility] Eosinophils Abs 0.2 0.0 - 0.4 x10(3)/ L [facility] Basophil % 0.5 % [facility] Baso Absolute 0.0 0.0 - 0.1 x10(3)/ L [facility] Immature Gran % 0.70 % [facility] Comment: Immature granulocytes(IG's)percentage and absolute count will include metamyelocytes, myelocytes, and promyelocytes. Blood smears from CBCs yielding IG's will be scanned manually for concordance. If this scan disagrees with the automated IG or if promyelocytes are noted, a manual differential will be performed. Immature Gran Absolute 0.06(H) 0.00 - 0.04 x10(3)/ L [facility] Blood 09/04/2022 12:2 5 AM EDT 09/04/2022 12:36 AM EDT Narrative Resulting Agency Comment Spec In Lab Toño Pacheco MD [place] [address] * (ABNORMAL) Hemogram (09/04/2022 12:25 AM EDT) White Blood Cell 8.3 4.0 - 9.5 x10(3)/mc L [facility] Red Blood Cell 2.80(L) 4.00 - 5.21 x10(6)/mc L [facility] Hemoglobin 9.1(L) 11.7 - 15.5 g/dL [facility] Hematocrit 26.8(L) 35.7 - 45.8 % [facility] Mean Cell Volume 95.7(H) 82.6 - 94.4 fL [facility] Mean Cell Hemoglobin 32.5(H) 27.1 - 32.0 pg [facility] Mean Cell Hemoglobin Concentration 34.0 31.7 - 35.0 g/dL [facility] Platelet 624(H) 145 - 357 x10(3)/mc L [facility] RDW Standard Deviation 40.8 37.0 - 46.0 fL [facility] RDW coefficient of variation 11.9 11.5 - 14.1 % [facility] Mean Platelet Volume 8.7 7.6 - 12.9 fL [facility] NRBC% auto 0.0 % [facility] NRBC Absolute 0.000 0.000 - 0.000 x10(3)/ L [facility] Blood 09/04/2022 12:2 5 AM EDT 09/04/2022 12:36 AM EDT Narrative Resulting Agency Comment Spec In Lab Toño Pacheco MD HEMATOLOGY ORDERABLE S [facility] [place] [address] * (ABNORMAL) Basic Metabolic Panel (non-fasting) (09/04/2022 12:25 AM EDT) Glucose 98 65 - 199 mg/dL [facility] Comment:Diabetes: >=200 mg/d L plus symptoms Blood Urea Nitrogen 19(H) 8 - 18 mg/dL [facility] Creatinine 0.45(L) 0.70 - 1.20 mg/dL [facility] Sodium 136 135 - 145 mmol/L [facility] Potassium 3.8 3.5 - 5.0 mmol/L [facility] Comment: Please note: ??Patients with WBC >100,000 may have falsely elevated Potassium levels. ??For accurate Potassium quantification in these patients send serum separator tube (gold top) for subsequent determinations. ??Contact the Clinical Chemistry Laboratory if there are any questions. Chloride 100 98 - 107 mmol/L [facility] Carbon Dioxide 27 22 - 31 mmol/L [facility] Anion Gap 9 5 - 15 mmol/L [facility] Calcium 8.8 8.5 - 10.5 mg/dL [facility] Est Glomerular Filtration Rate 116 >=60 mL/min/1. 73 m?? [facility] Comment: This patient's estimated [...] MD CHEMISTRY ORDERABL ES Performing Organization Address [facility] Co de Phone Number [facility] [place] [address] * Phosphorus (09/04/2022 12:25 AM EDT) Phosphorus 3.8 2.5 - 4.5 mg/dL [facility] Blood 09/04/2022 12:2 5 AM EDT 09/04/2022 12:36 AM EDT Narrative Resulting Agency Comment Spec In Lab Roberth Lee MD CHEMISTRY ORDERABL ES Performing Organization Address [facility]/ZIP Co de Phone Number [facility] [place] [address] * Magnesium (09/04/2022 12:25 AM EDT) Magnesium 1.00 0.69 - 1.07 mmol/L [facility] Blood 09/04/2022 12:2 5 AM EDT 09/04/2022 12:36 AM EDT Narrative Resulting Agency Comment Spec In Lab Roberth Lee MD CHEMISTRY ORDERABL ES Performing Organization Address City/[facility]/[place] [address] * (ABNORMAL) Differential, Automated (09/03/2022 2:00 AM EDT) Neutrophil % 79.8 % [facility] Neutrophil Absolute 6.58(H) 1.70 - 6.10 x10(3)/mc L [facility] Lymph % 9.1 % [facility] Lymphocytes Abs 0.8(L) 0.9 - 3.2 x10(3)/mc L [facility] Monocyte % 8.3 % [facility] Monocyte Abs 0.7 0.3 - 0.9 x10(3)/mc L [facility] Eos % 1.2 % [facility] Eosinophils Abs 0.1 0.0 - 0.4 x10(3)/mc L [facility] Basophil % 0.6 % [facility] Baso Absolute 0.0 0.0 - 0.1 x10(3)/mc L [facility] Immature Gran % 1.00 % [facility] Comment: Immature granulocytes(IG's)percentage and absolute count will include metamyelocytes, myelocytes, and promyelocytes. Blood smears from CBCs yielding IG's will be scanned manually for concordance. If this scan disagrees with the automated IG or if promyelocytes are noted, a manual differential will be performed. Immature Gran Absolute 0.08(H) 0.00 - 0.04 x10(3)/mc L [facility] Blood 09/03/2022 2:00 AM EDT 09/03/2022 2:09 AM EDT Narrative Resulting Agency Comment Spec In Lab Toño Pacheco MD HEMATOLOGY ORDERABLE S Performing Organization Address City/[facility]/[place] [address] * (ABNORMAL) Hemogram (09/03/2022 2:00 AM EDT) White Blood Cell 8.2 4.0 - 9.5 x10(3)/mc L [facility] Red Blood Cell 3.07(L) 4.00 - 5.21 x10(6)/mc L [facility] Hemoglobin 9.8(L) 11.7 - 15.5 g/dL [facility] Hematocrit 29.4(L) 35.7 - 45.8 % [facility] Mean Cell Volume 95.8(H) 82.6 - 94.4 fL [facility] Mean Cell Hemoglobin 31.9 27.1 - 32.0 pg [facility] Mean Cell Hemoglobin Concentration 33.3 31.7 - 35.0 g/dL [facility] Platelet 657(H) 145 - 357 x10(3)/mc L [facility] RDW Standard Deviation 40.5 37.0 - 46.0 fL [facility] RDW coefficient of variation 11.9 11.5 - 14.1 % [facility] Mean Platelet Volume 8.5 7.6 - 12.9 fL [facility] NRBC% auto 0.0 % [facility] NRBC Absolute 0.000 0.000 - 0.000 x10(3)/ L [facility] Blood 09/03/2022 2:00 AM EDT 09/03/2022 2:09 AM EDT Narrative Resulting Agency Comment Spec In Lab Toño Pacheco MD HEMATOLOGY ORDERABLE S Performing Organization Address City/State/[facility] Co de Phone Number [facility] [place] [address] * (ABNORMAL) Basic Metabolic Panel (non-fasting) (09/03/2022 2:00 AM EDT) Glucose 85 65 - 199 mg/dL [facility] Comment:Diabetes: >=200 mg/d L plus symptoms Blood Urea Nitrogen 20(H) 8 - 18 mg/dL [facility] Creatinine 0.45(L) 0.70 - 1.20 mg/dL [facility] Sodium 137 135 - 145 mmol/L [facility] Potassium 4.2 3.5 - 5.0 mmol/L [facility] Comment: Please note: ??Patients with WBC >100,000 may have falsely elevated Potassium levels. ??For accurate Potassium quantification in these patients send serum separator tube (gold top) for subsequent determinations. ??Contact the Clinical Chemistry Laboratory if there are any questions. Chloride 98 98 - 107 mmol/L [facility] Carbon Dioxide 28 22 - 31 mmol/L [facility] Anion Gap 11 5 - 15 mmol/L [facility] Calcium 9.2 8.5 - 10.5 mg/dL [facility] Est Glomerular Filtration Rate 116 >=60 mL/min/1. 73 m?? [facility] Comment: This patient's estimated [...] Lab Roberth Lee MD CHEMISTRY ORDERABL ES [facility] [place] [address] * Phosphorus (09/03/2022 2:00 AM EDT) Phosphorus 3.7 2.5 - 4.5 mg/dL [facility] Blood 09/03/2022 2:00 AM EDT 09/03/2022 2:09 AM EDT Narrative Resulting Agency Comment Spec In Lab Roberth Lee MD CHEMISTRY ORDERABL ES [facility] [place] [address] * Magnesium (09/03/2022 2:00 AM EDT) Magnesium 1.05 0.69 - 1.07 mmol/L [facility] Blood 09/03/2022 2:00 AM EDT 09/03/2022 2:09 AM EDT Narrative Resulting Agency Comment Spec In Lab Roberth Lee MD CHEMISTRY ORDERABL ES [facility] [place] [address] * Place PICC Line: Contact Vascular Access Page [phone] Extremity to exclude: No restrictions; Is PICC [...] to the planned procedure. Hand Hygiene: The resident manager did perform hand hygiene prior to line insertion. Catheter type: PICC Lot number: [id number] Procedure Technique: Skin was prepped with chlorhexidine. [...] who have questions please contact the health healthcare management that requested your imaging first. ? Narrative 09/02/2022 5:04 PM EDT EXAMINATION: XR [...] patients who have questions please contactthe health healthcare management that requested your imaging first. Roberth Lee MD IMG FLUORO ORDERAB LES * (ABNORMAL) Differential, Automated (09/02/2022 12:28 AM EDT) Neutrophil % 83.7 % [facility] Neutrophil Absolute 7.16(H) 1.70 - 6.10 x10(3)/mc L [facility] Lymph % 7.0 % [facility] Lymphocytes Abs 0.6(L) 0.9 - 3.2 x10(3)/mc L [facility] Monocyte % 6.7 % [facility] Monocyte Abs 0.6 0.3 - 0.9 x10(3)/ L [facility] Eos % 1.3 % [facility] Eosinophils Abs 0.1 0.0 - 0.4 x10(3)/ L [facility] Basophil % 0.5 % [facility] Baso Absolute 0.0 0.0 - 0.1 x10(3)/mc L [facility] Immature Gran % 0.80 % [facility] Comment: Immature granulocytes(IG's)percentage and absolute count will include metamyelocytes, myelocytes, and promyelocytes. Blood smears from CBCs yielding IG's will be scanned manually for concordance. If this scan disagrees with the automated IG or if promyelocytes are noted, a manual differential will be performed. Immature Gran Absolute 0.07(H) 0.00 - 0.04 x10(3)/ L [facility] Blood 09/02/2022 12:2 8 AM EDT 09/02/2022 12:42 AM EDT Narrative Resulting Agency Comment Spec In Lab Toño Pacheco MD HEMATOLOGY ORDERABLE S [facility] [place] [address] * (ABNORMAL) Hemogram (09/02/2022 12:28 AM EDT) White Blood Cell 8.6 4.0 - 9.5 x10(3)/mc L [facility] Red Blood Cell 2.89(L) 4.00 - 5.21 x10(6)/mc L [facility] Hemoglobin 9.4(L) 11.7 - 15.5 g/dL [facility] Hematocrit 27.7(L) 35.7 - 45.8 % [facility] Mean Cell Volume 95.8(H) 82.6 - 94.4 fL [facility] Mean Cell Hemoglobin 32.5(H) 27.1 - 32.0 pg [facility] Mean Cell Hemoglobin Concentration 33.9 31.7 - 35.0 g/dL [facility] Platelet 591(H) 145 - 357 x10(3)/mc L [facility] RDW Standard Deviation 40.4 37.0 - 46.0 fL [facility] RDW coefficient of variation 11.7 11.5 - 14.1 % [facility] Mean Platelet Volume 8.5 7.6 - 12.9 fL [facility] NRBC% auto 0.0 % [facility] NRBC Absolute 0.000 0.000 - 0.000 x10(3)/mc L [facility] Blood 09/02/2022 12:2 8 AM EDT 09/02/2022 12:42 AM EDT Narrative Resulting Agency Comment Spec In Lab Toño Pacheco MD HEMATOLOGY ORDERABLE S [facility] [place] [address] * (ABNORMAL) Basic Metabolic Panel (non-fasting) (09/02/2022 12:28 AM EDT) Glucose 112 65 - 199 mg/dL [facility] Comment:Diabetes: >=200 mg/d L plus symptoms Blood Urea Nitrogen 17 8 - 18 mg/dL [facility] Creatinine 0.41(L) 0.70 - 1.20 mg/dL [facility] Sodium 130(L) 135 - 145 mmol/L [facility] Potassium 4.1 3.5 - 5.0 mmol/L [facility] Comment: Please note: ??Patients with WBC >100,000 may have falsely elevated Potassium levels. ??For accurate Potassium quantification in these patients send serum separator tube (gold top) for subsequent determinations. ??Contact the Clinical Chemistry Laboratory if there are any questions. Chloride 96(L) 98 - 107 mmol/L [facility] Carbon Dioxide 25 22 - 31 mmol/L [facility] Anion Gap 9 5 - 15 mmol/L [facility] Calcium 8.7 8.5 - 10.5 mg/dL [facility] Est Glomerular Filtration Rate 119 >=60 mL/min/1. 73 m?? [facility] Comment: This patient's estimated GFR [...] MD CHEMISTRY ORDERABL ES Performing Organization Address [facility] Co de Phone Number [facility] [place] [address] * Phosphorus (09/02/2022 12:28 AM EDT) Phosphorus 3.2 2.5 - 4.5 mg/dL [facility] Blood 09/02/2022 12:2 8 AM EDT 09/02/2022 12:42 AM EDT Narrative Resulting Agency Comment Spec In Lab Roberth Lee MD CHEMISTRY ORDERABL ES Performing Organization Address [facility] Co de Phone Number [facility] [place] [address] * Magnesium (09/02/2022 12:28 AM EDT) Magnesium 1.02 0.69 - 1.07 mmol/L [facility] Blood 09/02/2022 12:2 8 AM EDT 09/02/2022 12:42 AM EDT Narrative Resulting Agency Comment Spec In Lab Roberth Lee MD CHEMISTRY ORDERABL ES Performing Organization Address [facility] Co de Phone Number [facility] [place] [address] * Lavender Tube HOLD (09/01/2022 9:45 AM EDT) Lavender Hold Sample in lab. [facility] Blood Venous Draw / Unknown 09/01/2022 9:45 AM EDT 09/01/2022 10:17 AM EDT Toño Pacheco MD HEMATOLOGY ORDERABLE S Performing Organization Address [facility] Co de Phone Number [facility] [place] [address] * Phosphorus (09/01/2022 9:45 AM EDT) Phosphorus 2.8 2.5 - 4.5 mg/dL [facility] Blood 09/01/2022 9:45 AM EDT 09/01/2022 10:16 AM EDT Narrative Resulting Agency Comment Spec In Lab Roberth Lee MD CHEMISTRY ORDERABL ES Performing Organization Address [facility] de Phone Number [facility] [place] [address] * Magnesium (09/01/2022 9:45 AM EDT) Magnesium 1.00 0.69 - 1.07 mmol/L [facility] Blood 09/01/2022 9:45 AM EDT 09/01/2022 10:16 AM EDT Narrative Resulting Agency Comment Spec In Lab Roberth Lee MD CHEMISTRY ORDERABL ES Performing Organization Address [facility] de Phone Number [facility] [place] [address] * (ABNORMAL) Basic Metabolic Panel (non-fasting) (09/01/2022 9:45 AM EDT) Glucose 95 65 - 199 mg/dL [facility] Comment:Diabetes: >=200 mg/d L plus symptoms Blood Urea Nitrogen 19(H) 8 - 18 mg/dL [facility] Creatinine 0.42(L) 0.70 - 1.20 mg/dL [facility] Sodium 129(L) 135 - 145 mmol/L [facility] Potassium 4.3 3.5 - 5.0 mmol/L [facility] Comment: Please note: ??Patients with WBC >100,000 may have falsely elevated Potassium levels. ??For accurate Potassium quantification in these patients send serum separator tube (gold top) for subsequent determinations. ??Contact the Clinical Chemistry Laboratory if there are any questions. Chloride 92(L) 98 - 107 mmol/L [facility] Carbon Dioxide 25 22 - 31 mmol/L [facility] Anion Gap 12 5 - 15 mmol/L [facility] Calcium 9.5 8.5 - 10.5 mg/dL [facility] Est Glomerular Filtration Rate 118 >=60 mL/min/1. 73 m?? [facility] Comment: This patient's estimated [...] MD CHEMISTRY ORDERABL ES Performing Organization Address City/[facility] Co de Phone Number [facility] [place] [address] * Electrolytes, urine, random (09/01/2022 9:30 AM EDT) Sodium, Urine 40 mmol/L [facility] Potassium, Urine 66 mmol/L [facility] Chloride, Urine 48 mmol/L [facility] Urine 09/01/2022 9:30 AM EDT 09/01/2022 9:44 AM EDT Narrative Resulting Agency Comment Spec In Lab Roberth Lee MD URINE ORDERABLES [facility] [place] [address] * T4, free (09/01/2022 12:42 AM EDT) Free T4 0.93 0.93 - 1.70 ng/dL [facility] Comment: Reference Interval (ng/dL): Females: ??First Trimester: 0.97-1.68 ??Second Trimester: 0.77-1.51 ??Third Trimester: 0.77-1.49 Blood Venous Draw / Unknown 09/01/2022 12:42 AM EDT 09/01/2022 8:47 AM EDT Narrative Resulting Agency Comment Spec In Lab Toño Pacheco MD CHEMISTRY ORDERABLES Performing Organization Address [facility] Co de Phone Number [facility] [place] [address] * (ABNORMAL) TSH Letcher (09/01/2022 12:42 AM EDT) Thyroid Stimulating Hormone 18.90(H) 0.27 - 4.20 mcIU/mL [facility] Comment: Reference Interval (mcIU/mL): Females: ??First Trimester: 0.23-3.88 ??Second Trimester: 0.22-3.90 ??Third Trimester: 0.44-4.66 Blood Venous Draw / Unknown 09/01/2022 12:42 AM EDT 09/01/2022 8:47 AM EDT Narrative Resulting Agency Comment Spec In Lab Toño Pacheco MD CHEMISTRY ORDERABLES Performing Organization Address City/[facility] Co de Phone Number [facility] [place] [address] * (ABNORMAL) TSH (09/01/2022 12:42 AM EDT) Thyroid Stimulating Hormone 18.40(H) 0.27 - 4.20 mcIU/mL [facility] Comment: Reference Interval (mcIU/mL): Females: ??First Trimester: 0.23-3.88 ??Second Trimester: 0.22-3.90 ??Third Trimester: 0.44-4.66 Blood 09/01/2022 12:4 2 AM EDT 09/01/2022 12:52 AM EDT Narrative Resulting Agency Comment Spec In Lab Roberth Lee MD CHEMISTRY ORDERABL ES Performing Organization Address [facility] Co de Phone Number [facility] [place] [address] * Phosphorus (08/31/2022 4:25 PM EDT) Phosphorus 3.5 2.5 - 4.5 mg/dL [facility] Blood 08/31/2022 4:25 PM EDT 08/31/2022 4:42 PM EDT Narrative Resulting Agency Comment Spec In Lab Roberth Lee MD CHEMISTRY ORDERABL ES Performing Organization Address [facility] de Phone Number [facility] [place] [address] * Magnesium (08/31/2022 4:25 PM EDT) Magnesium 0.95 0.69 - 1.07 mmol/L [facility] Blood 08/31/2022 4:25 PM EDT 08/31/2022 4:42 PM EDT Narrative Resulting Agency Comment Spec In Lab Roberth Lee MD CHEMISTRY ORDERABL ES Performing Organization Address [facility] de Phone Number [facility] [place] [address] * (ABNORMAL) Basic Metabolic Panel (non-fasting) (08/31/2022 4:25 PM EDT) Glucose 106 65 - 199 mg/dL [facility] Comment:Diabetes: >=200 mg/d L plus symptoms Blood Urea Nitrogen 20(H) 8 - 18 mg/dL [facility] Creatinine 0.41(L) 0.70 - 1.20 mg/dL [facility] Sodium 127(L) 135 - 145 mmol/L [facility] Potassium 4.3 3.5 - 5.0 mmol/L [facility] Comment: Please note: ??Patients with WBC >100,000 may have falsely elevated Potassium levels. ??For accurate Potassium quantification in these patients send serum separator tube (gold top) for subsequent determinations. ??Contact the Clinical Chemistry Laboratory if there are any questions. Chloride 90(L) 98 - 107 mmol/L [facility] Carbon Dioxide 24 22 - 31 mmol/L [facility] Anion Gap 13 5 - 15 mmol/L [facility] Calcium 9.4 8.5 - 10.5 mg/dL [facility] Est Glomerular Filtration Rate 119 >=60 mL/min/1. 73 m?? [facility] Comment: This patient's estimated [...] Lab Roberth Lee MD CHEMISTRY ORDERABL ES [facility] [place] [address] * (ABNORMAL) Differential, Automated (08/31/2022 11:37 AM EDT) Neutrophil % 85.4 % [facility] Neutrophil Absolute 7.53(H) 1.70 - 6.10 x10(3)/mc L [facility] Lymph % 6.9 % [facility] Lymphocytes Abs 0.6(L) 0.9 - 3.2 x10(3)/mc L [facility] Monocyte % 5.6 % [facility] Monocyte Abs 0.5 0.3 - 0.9 x10(3)/mc L [facility] Eos % 0.9 % [facility] Eosinophils Abs 0.1 0.0 - 0.4 x10(3)/ L [facility] Basophil % 0.6 % [facility] Baso Absolute 0.0 0.0 - 0.1 x10(3)/ L [facility] Immature Gran % 0.60 % [facility] Comment: Immature granulocytes(IG's)percentage and absolute count will include metamyelocytes, myelocytes, and promyelocytes. Blood smears from CBCs yielding IG's will be scanned manually for concordance. If this scan disagrees with the automated IG or if promyelocytes are noted, a manual differential will be performed. Immature Gran Absolute 0.05(H) 0.00 - 0.04 x10(3)/ L [facility] Blood 08/31/2022 11:3 7 AM EDT 08/31/2022 11:54 AM EDT Narrative Resulting Agency Comment Spec In Lab Toño Pacheco MD HEMATOLOGY ORDERABLE S [facility] [place] [address] * (ABNORMAL) Hemogram (08/31/2022 11:37 AM EDT) White Blood Cell 8.8 4.0 - 9.5 x10(3)/ L [facility] Red Blood Cell 3.04(L) 4.00 - 5.21 x10(6)/ L [facility] Hemoglobin 9.7(L) 11.7 - 15.5 g/dL [facility] Hematocrit 29.3(L) 35.7 - 45.8 % [facility] Mean Cell Volume 96.4(H) 82.6 - 94.4 fL [facility] Mean Cell Hemoglobin 31.9 27.1 - 32.0 pg [facility] Mean Cell Hemoglobin Concentration 33.1 31.7 - 35.0 g/dL [facility] Platelet 670(H) 145 - 357 x10(3)/ L [facility] RDW Standard Deviation 41.2 37.0 - 46.0 fL [facility] RDW coefficient of variation 11.7 11.5 - 14.1 % [facility] Mean Platelet Volume 8.8 7.6 - 12.9 fL [facility] NRBC% auto 0.0 % [facility] NRBC Absolute 0.000 0.000 - 0.000 x10(3)/mc L [facility] Blood 08/31/2022 11:3 7 AM EDT 08/31/2022 11:54 AM EDT Narrative Resulting Agency Comment Spec In Lab Toño Pacheco MD HEMATOLOGY ORDERABLE S Performing Organization Address [facility] Co de Phone Number [facility] [place] [address] * Phosphorus (08/31/2022 12:34 AM EDT) Phosphorus 3.7 2.5 - 4.5 mg/dL [facility] Blood 08/31/2022 12:3 4 AM EDT 08/31/2022 12:50 AM EDT Narrative Resulting Agency Comment Spec In Lab Roberth Lee MD CHEMISTRY ORDERABL ES Performing Organization Address [facility] de Phone Number [facility] [place] [address] * (ABNORMAL) Basic Metabolic Panel (non-fasting) (08/31/2022 12:34 AM EDT) Glucose 112 65 - 199 mg/dL [facility] Comment:Diabetes: >=200 mg/d L plus symptoms Blood Urea Nitrogen 18 8 - 18 mg/dL [facility] Creatinine 0.39(L) 0.70 - 1.20 mg/dL [facility] Sodium 128(L) 135 - 145 mmol/L [facility] Potassium 4.5 3.5 - 5.0 mmol/L [facility] Comment: Please note: ??Patients with WBC >100,000 may have falsely elevated Potassium levels. ??For accurate Potassium quantification in these patients send serum separator tube (gold top) for subsequent determinations. ??Contact the Clinical Chemistry Laboratory if there are any questions. Chloride 91(L) 98 - 107 mmol/L [facility] Carbon Dioxide 26 22 - 31 mmol/L [facility] Anion Gap 11 5 - 15 mmol/L [facility] Calcium 9.4 8.5 - 10.5 mg/dL [facility] Est Glomerular Filtration Rate 120 >=60 mL/min/1. 73 m?? [facility] Comment: This patient's estimated [...] MD CHEMISTRY ORDERABL ES Performing Organization Address [facility] Co de Phone Number [facility] [place] [address] * Magnesium (08/31/2022 12:34 AM EDT) Magnesium 0.96 0.69 - 1.07 mmol/L [facility] Blood 08/31/2022 12:3 4 AM EDT 08/31/2022 12:50 AM EDT Narrative Resulting Agency Comment Spec In Lab Roberth Lee MD CHEMISTRY ORDERABL ES Performing Organization Address [facility]/ZIP Co de Phone Number [facility] [place] [address] * XR Chest One View (08/30/2022 8:39 [...] who have questions please contact the health healthcare management that requested your imaging first. ? Narrative 08/30/2022 8:43 AM EDT EXAMINATION: XR [...] patients who have questions please contactthe health healthcare management that requested your imaging first. Roberth Lee MD IMG DX ORDERABLES * EKG 12 Lead (08/30/2022 8:32 AM EDT) Ventricular rate 82 BPM MUSE SYSTEM Atrial Rate 82 BPM MUSE SYSTEM P-R Interval 120 ms MUSE SYSTEM QRS Duration 76 ms MUSE SYSTEM Q-T Interval 374 ms MUSE SYSTEM QTC Calculated (Bezet) 436 ms MUSE SYSTEM Calculated P [place] 77 degrees MUSE SYSTEM Calculated R [place] 68 degrees MUSE SYSTEM Calculated T [place] 60 degrees MUSE SYSTEM INTERPRETATION Normal sinus [...] Differential, Automated (08/26/2022 5:39 AM EDT) Pathologist [facility] Neutrophil % 77.9 % [facility] Neutrophil Absolute 4.65 1.70 - 6.10 x10(3)/mc L [facility] Lymph % 8.5 % [facility] Lymphocytes Abs 0.5(L) 0.9 - 3.2 x10(3)/mc L [facility] Monocyte % 7.9 % [facility] Monocyte Abs 0.5 0.3 - 0.9 x10(3)/mc L [facility] Eos % 4.9 % [facility] Eosinophils Abs 0.3 0.0 - 0.4 x10(3)/mc L [facility] Basophil % 0.3 % [facility] Baso Absolute 0.0 0.0 - 0.1 x10(3)/mc L [facility] Immature Gran % 0.50 % [facility] Comment: Immature granulocytes(IG's)percentage and absolute count will include metamyelocytes, myelocytes, and promyelocytes. Blood smears from CBCs yielding IG's will be scanned manually for concordance. If this scan disagrees with the automated IG or if promyelocytes are noted, a manual differential will be performed. Immature Gran Absolute 0.03 0.00 - 0.04 x10(3)/ L [facility] Blood 08/26/2022 5:39 AM EDT 08/26/2022 5:51 AM EDT Narrative Resulting Agency Comment Spec In Lab Meredith Root APRN HEMATOLOGY ORDER JUDI [facility] [place] [address] * (ABNORMAL) Hemogram (08/26/2022 5:39 AM EDT) White Blood Cell 6.0 4.0 - 9.5 x10(3)/[facility] Red Blood Cell 2.56(L) 4.00 - 5.21 x10(6)/[facility] Hemoglobin 8.4(L) 11.7 - 15.5 g/dL [facility] Hematocrit 24.4(L) 35.7 - 45.8 % [facility] Mean Cell Volume 95.3(H) 82.6 - 94.4 fL [facility] Mean Cell Hemoglobin 32.8(H) 27.1 - 32.0 pg [facility] Mean Cell Hemoglobin Concentration 34.4 31.7 - 35.0 g/dL [facility] Platelet 257 145 - 357 x10(3)/[facility] RDW Standard Deviation 41.2 37.0 - 46.0 fL [facility] RDW coefficient of variation 11.9 11.5 - 14.1 % [facility] Mean Platelet Volume 9.2 7.6 - 12.9 fL [facility] NRBC% auto 0.0 % [facility] NRBC Absolute 0.000 0.000 - 0.000 x10(3)/[facility] Blood 08/26/2022 5:39 AM EDT 08/26/2022 5:51 AM EDT Narrative Resulting Agency Comment Spec In Lab Meredith Root [employer] HEMATOLOGY ORDER JUDI Performing Organization Address City/[facility]/ZIP Co de Phone Number [facility] [place] [address] * Phosphorus (08/26/2022 5:39 AM EDT) Phosphorus 2.6 2.5 - 4.5 mg/dL [facility] Blood 08/26/2022 5:39 AM EDT 08/26/2022 5:51 AM EDT Narrative Resulting Agency Comment Spec In Lab Meredith Root [employer] CHEMISTRY ORDERA BLES Performing Organization Address City/[facility] Co de Phone Number [facility] [place] [address] * (ABNORMAL) Basic Metabolic Panel (non-fasting) (08/26/2022 5:39 AM EDT) Glucose 100 65 - 199 mg/dL [facility] Comment:Diabetes: >=200 mg/d L plus symptoms Blood Urea Nitrogen 16 8 - 18 mg/dL [facility] Comment:result rechecked-[facility] Creatinine 0.51(L) 0.70 - 1.20 mg/dL [facility] Sodium 137 135 - 145 mmol/L [facility] Potassium 3.8 3.5 - 5.0 mmol/L [facility] Comment: Please note: ??Patients with WBC >100,000 may have falsely elevated Potassium levels. ??For accurate Potassium quantification in these patients send serum separator tube (gold top) for subsequent determinations. ??Contact the Clinical Chemistry Laboratory if there are any questions. Chloride 102 98 - 107 mmol/L [facility] Carbon Dioxide 25 22 - 31 mmol/L [facility] Anion Gap 10 5 - 15 mmol/L [facility] Calcium 8.5 8.5 - 10.5 mg/dL [facility] Est Glomerular Filtration Rate 113 >=60 mL/min/1. 73 m?? [facility] Comment: This patient's estimated [...] Comment Spec In Lab Meredith E Caialtafe [employer] CHEMISTRY ORDERA BLES Performing Organization Address City/[facility]/ZIP Co de Phone Number [facility] [place] [address] * Magnesium (08/26/2022 5:39 AM EDT) Magnesium 0.87 0.69 - 1.07 mmol/L [facility] Blood 08/26/2022 5:39 AM EDT 08/26/2022 5:51 AM EDT Narrative Resulting Agency Comment Spec In Lab Meredith E Calvine [employer] CHEMISTRY ORDERA BLES Performing Organization Address City/[facility] Co de Phone Number [facility] [place] [address] * (ABNORMAL) Differential, Automated (08/25/2022 9:07 AM EDT) Neutrophil % 85.2 % [facility] Neutrophil Absolute 5.23 1.70 - 6.10 x10(3)/mc L [facility] Lymph % 5.5 % [facility] Lymphocytes Abs 0.3(L) 0.9 - 3.2 x10(3)/mc L [facility] Monocyte % 5.7 % [facility] Monocyte Abs 0.4 0.3 - 0.9 x10(3)/mc L [facility] Eos % 2.8 % [facility] Eosinophils Abs 0.2 0.0 - 0.4 x10(3)/[facility] Basophil % 0.3 % [facility] Baso Absolute 0.0 0.0 - 0.1 x10(3)/[facility] Immature Gran % 0.50 % [facility] Comment: Immature granulocytes(IG's)percentage and absolute count will include metamyelocytes, myelocytes, and promyelocytes. Blood smears from CBCs yielding IG's will be scanned manually for concordance. If this scan disagrees with the automated IG or if promyelocytes are noted, a manual differential will be performed. Immature Gran Absolute 0.03 0.00 - 0.04 x10(3)/[facility] Blood 08/25/2022 9:07 AM EDT 08/25/2022 9:26 AM EDT Narrative Resulting Agency Comment Spec In Lab Meredith Root APRN HEMATOLOGY ORDER JUDI [facility] [place] [address] * (ABNORMAL) Hemogram (08/25/2022 9:07 AM EDT) White Blood Cell 6.1 4.0 - 9.5 x10(3)/ L [facility] Red Blood Cell 2.65(L) 4.00 - 5.21 x10(6)/[facility] Hemoglobin 8.7(L) 11.7 - 15.5 g/dL [facility] Hematocrit 25.0(L) 35.7 - 45.8 % [facility] Mean Cell Volume 94.3 82.6 - 94.4 fL [facility] Mean Cell Hemoglobin 32.8(H) 27.1 - 32.0 pg [facility] Mean Cell Hemoglobin Concentration 34.8 31.7 - 35.0 g/dL [facility] Platelet 209 145 - 357 x10(3)/ L [facility] RDW Standard Deviation 40.8 37.0 - 46.0 fL [facility] RDW coefficient of variation 11.8 11.5 - 14.1 % [facility] Mean Platelet Volume 9.6 7.6 - 12.9 fL [facility] NRBC% auto 0.0 % [place] [facility] NRBC Absolute 0.000 0.000 - 0.000 x10(3)/mc L [facility] Blood 08/25/2022 9:07 AM EDT 08/25/2022 9:26 AM EDT Narrative Resulting Agency Comment Spec In Lab Meredith Root [employer] HEMATOLOGY ORDER JUDI Performing Organization Address City/[facility]/ZIP Co de Phone Number [facility] [place] [address] * Phosphorus (08/25/2022 9:07 AM EDT) Phosphorus 2.8 2.5 - 4.5 mg/dL [facility] Blood 08/25/2022 9:07 AM EDT 08/25/2022 9:26 AM EDT Narrative Resulting Agency Comment Spec In Lab Meredith Root [employer] CHEMISTRY ORDERA BLES Performing Organization Address [facility] Co de Phone Number [facility] [place] [address] * (ABNORMAL) Basic Metabolic Panel (non-fasting) (08/25/2022 9:07 AM EDT) Glucose 85 65 - 199 mg/dL [facility] Comment:Diabetes: >=200 mg/d L plus symptoms Blood Urea Nitrogen 9 8 - 18 mg/dL [facility] Creatinine 0.50(L) 0.70 - 1.20 mg/dL [facility] Sodium 136 135 - 145 mmol/L [facility] Potassium 3.4(L) 3.5 - 5.0 mmol/L [facility] Comment: Please note: ??Patients with WBC >100,000 may have falsely elevated Potassium levels. ??For accurate Potassium quantification in these patients send serum separator tube (gold top) for subsequent determinations. ??Contact the Clinical Chemistry Laboratory if there are any questions. Chloride 100 98 - 107 mmol/L [facility] Carbon Dioxide 23 22 - 31 mmol/L [facility] Anion Gap 13 5 - 15 mmol/L [facility] Calcium 8.4(L) 8.5 - 10.5 mg/dL [facility] Est Glomerular Filtration Rate 113 >=60 mL/min/1. 73 m?? [facility] Comment: This patient's estimated [...] Comment Spec In Lab Meredith E Caille [employer] CHEMISTRY ORDERA BLES Performing Organization Address City/[facility]/ZIP Co de Phone Number [facility] [place] [address] * Magnesium (08/25/2022 9:07 AM EDT) Magnesium 0.82 0.69 - 1.07 mmol/L [facility] Blood 08/25/2022 9:07 AM EDT 08/25/2022 9:26 AM EDT Narrative Resulting Agency Comment Spec In Lab Meredith E Caille [employer] CHEMISTRY ORDERA BLES Performing Organization Address City/[facility]/ZIP Co de Phone Number [facility] [place] [address] * (ABNORMAL) Differential, Automated (08/24/2022 1:00 AM EDT) Neutrophil % 85.7 % [facility] Neutrophil Absolute 4.48 1.70 - 6.10 x10(3)/mc L [facility] Lymph % 7.6 % [facility] Lymphocytes Abs 0.4(L) 0.9 - 3.2 x10(3)/mc L [facility] Monocyte % 5.0 % [facility] Monocyte Abs 0.3 0.3 - 0.9 x10(3)/ L [facility] Eos % 1.1 % [facility] Eosinophils Abs 0.1 0.0 - 0.4 x10(3)/ L [facility] Basophil % 0.2 % [facility] Baso Absolute 0.0 0.0 - 0.1 x10(3)/ L [facility] Immature Gran % 0.40 % [facility] Comment: Immature granulocytes(IG's)percentage and absolute count will include metamyelocytes, myelocytes, and promyelocytes. Blood smears from CBCs yielding IG's will be scanned manually for concordance. If this scan disagrees with the automated IG or if promyelocytes are noted, a manual differential will be performed. Immature Gran Absolute 0.02 0.00 - 0.04 x10(3)/ L [facility] Blood 08/24/2022 1:00 AM EDT 08/24/2022 1:40 AM EDT Narrative Resulting Agency Comment Spec In Lab Meredith Root APRN HEMATOLOGY ORDER JUDI [facility] [place] [address] * (ABNORMAL) Hemogram (08/24/2022 1:00 AM EDT) White Blood Cell 5.2 4.0 - 9.5 x10(3)/mc L [facility] Red Blood Cell 2.74(L) 4.00 - 5.21 x10(6)/ L [facility] Hemoglobin 8.9(L) 11.7 - 15.5 g/dL [facility] Hematocrit 25.5(L) 35.7 - 45.8 % [facility] Mean Cell Volume 93.1 82.6 - 94.4 fL [facility] Mean Cell Hemoglobin 32.5(H) 27.1 - 32.0 pg [facility] Mean Cell Hemoglobin Concentration 34.9 31.7 - 35.0 g/dL [facility] Platelet 182 145 - 357 x10(3)/mc L [facility] RDW Standard Deviation 39.6 37.0 - 46.0 fL [facility] RDW coefficient of variation 11.7 11.5 - 14.1 % [facility] Mean Platelet Volume 9.3 7.6 - 12.9 fL [facility] NRBC% auto 0.0 % [facility] NRBC Absolute 0.000 0.000 - 0.000 x10(3)/mc L [facility] Blood 08/24/2022 1:00 AM EDT 08/24/2022 1:40 AM EDT Narrative Resulting Agency Comment Spec In Lab Meredith Root [employer] HEMATOLOGY ORDER JUDI Performing Organization Address City/[facility]/ZIP Co de Phone Number [facility] [place] [address] * Phosphorus (08/24/2022 1:00 AM EDT) Phosphorus 2.5 2.5 - 4.5 mg/dL [facility] Blood 08/24/2022 1:00 AM EDT 08/24/2022 1:40 AM EDT Narrative Resulting Agency Comment Spec In Lab Meredith Root [employer] CHEMISTRY ORDERA BLES Performing Organization Address City/[facility]/ZIP Co de Phone Number [facility] [place] [address] * (ABNORMAL) Basic Metabolic Panel (non-fasting) (08/24/2022 1:00 AM EDT) Glucose 103 65 - 199 mg/dL [facility] Comment:Diabetes: >=200 mg/d L plus symptoms Blood Urea Nitrogen 10 8 - 18 mg/dL [facility] Creatinine 0.56(L) 0.70 - 1.20 mg/dL [facility] Sodium 132(L) 135 - 145 mmol/L [facility] Potassium 3.3(L) 3.5 - 5.0 mmol/L [facility] Comment: Please note: ??Patients with WBC >100,000 may have falsely elevated Potassium levels. ??For accurate Potassium quantification in these patients send serum separator tube (gold top) for subsequent determinations. ??Contact the Clinical Chemistry Laboratory if there are any questions. Chloride 97(L) 98 - 107 mmol/L [facility] Carbon Dioxide 24 22 - 31 mmol/L [facility] Anion Gap 11 5 - 15 mmol/L [facility] Calcium 8.2(L) 8.5 - 10.5 mg/dL [facility] Est Glomerular Filtration Rate 110 >=60 mL/min/1. 73 m?? [facility] Comment: This patient's estimated [...] Comment Spec In Lab Meredith E Caille [employer] CHEMISTRY ORDERA BLES Performing Organization Address [facility] Co de Phone Number [facility] [place] [address] * Magnesium (08/24/2022 1:00 AM EDT) Magnesium 0.80 0.69 - 1.07 mmol/L [facility] Blood 08/24/2022 1:00 AM EDT 08/24/2022 1:40 AM EDT Narrative Resulting Agency Comment Spec In Lab Meredith E Caille [employer] CHEMISTRY ORDERA BLES Performing Organization Address City/[facility]/ZIP Co de Phone Number [facility] [place] [address] * (ABNORMAL) Basic Metabolic Panel (non-fasting) (08/23/2022 1:30 PM EDT) Glucose 101 65 - 199 mg/dL [facility] Comment:Diabetes: >=200 mg/d L plus symptoms Blood Urea Nitrogen 8 8 - 18 mg/dL [facility] Creatinine 0.57(L) 0.70 - 1.20 mg/dL [facility] Sodium 130(L) 135 - 145 mmol/L [facility] Potassium 3.6 3.5 - 5.0 mmol/L [facility] Comment: Please note: ??Patients with WBC >100,000 may have falsely elevated Potassium levels. ??For accurate Potassium quantification in these patients send serum separator tube (gold top) for subsequent determinations. ??Contact the Clinical Chemistry Laboratory if there are any questions. Chloride 95(L) 98 - 107 mmol/L [facility] Carbon Dioxide 23 22 - 31 mmol/L [facility] Anion Gap 12 5 - 15 mmol/L [facility] Calcium 8.4(L) 8.5 - 10.5 mg/dL [facility] Est Glomerular Filtration Rate 110 >=60 mL/min/1. 73 m?? [facility] Comment: This patient's estimated [...] Lab Meredith Root APRN CHEMISTRY ORDERA BLES [facility] [place] [address] * (ABNORMAL) Differential, Automated (08/23/2022 12:52 AM EDT) Neutrophil % 88.0 % [facility] Neutrophil Absolute 6.43(H) 1.70 - 6.10 x10(3)/mc L [facility] Lymph % 6.4 % [facility] Lymphocytes Abs 0.5(L) 0.9 - 3.2 x10(3)/mc L [facility] Monocyte % 4.9 % [facility] Monocyte Abs 0.4 0.3 - 0.9 x10(3)/ L [facility] Eos % 0.1 % [facility] Eosinophils Abs 0.0 0.0 - 0.4 x10(3)/[facility] Basophil % 0.3 % [facility] Baso Absolute 0.0 0.0 - 0.1 x10(3)/ L [facility] Immature Gran % 0.30 % [facility] Comment: Immature granulocytes(IG's)percentage and absolute count will include metamyelocytes, myelocytes, and promyelocytes. Blood smears from CBCs yielding IG's will be scanned manually for concordance. If this scan disagrees with the automated IG or if promyelocytes are noted, a manual differential will be performed. Immature Gran Absolute 0.02 0.00 - 0.04 x10(3)/ L [facility] Blood 08/23/2022 12:5 2 AM EDT 08/23/2022 1:00 AM EDT Narrative Resulting Agency Comment Spec In Lab Meredith Root APRN HEMATOLOGY ORDER JUDI [facility] [place] [address] * (ABNORMAL) Hemogram (08/23/2022 12:52 AM EDT) White Blood Cell 7.3 4.0 - 9.5 x10(3)/mc L [facility] Red Blood Cell 3.12(L) 4.00 - 5.21 x10(6)/[facility] Hemoglobin 10.2(L) 11.7 - 15.5 g/dL [facility] Hematocrit 29.6(L) 35.7 - 45.8 % [facility] Mean Cell Volume 94.9(H) 82.6 - 94.4 fL [facility] Mean Cell Hemoglobin 32.7(H) 27.1 - 32.0 pg [facility] Mean Cell Hemoglobin Concentration 34.5 31.7 - 35.0 g/dL [facility] Platelet 216 145 - 357 x10(3)/mc L [facility] RDW Standard Deviation 41.1 37.0 - 46.0 fL [facility] RDW coefficient of variation 11.9 11.5 - 14.1 % [facility] Mean Platelet Volume 9.0 7.6 - 12.9 fL [facility] NRBC% auto 0.0 % [facility] NRBC Absolute 0.000 0.000 - 0.000 x10(3)/mc L [facility] Blood 08/23/2022 12:5 2 AM EDT 08/23/2022 1:00 AM EDT Narrative Resulting Agency Comment Spec In Lab Meredith E Calvine [employer] HEMATOLOGY ORDER JUDI Performing Organization Address City/[facility]/ZIP Co de Phone Number [facility] [place] [address] * Phosphorus (08/23/2022 12:52 AM EDT) Phosphorus 3.2 2.5 - 4.5 mg/dL [facility] Blood 08/23/2022 12:5 2 AM EDT 08/23/2022 1:00 AM EDT Narrative Resulting Agency Comment Spec In Lab Meredith E Dk [employer] CHEMISTRY ORDERA BLES Performing Organization Address City/[facility]/ZIP Co de Phone Number [facility] [place] [address] * (ABNORMAL) Basic Metabolic Panel (non-fasting) (08/23/2022 12:52 AM EDT) Glucose 94 65 - 199 mg/dL [facility] Comment:Diabetes: >=200 mg/d L plus symptoms Blood Urea Nitrogen 7(L) 8 - 18 mg/dL [facility] Creatinine 0.65(L) 0.70 - 1.20 mg/dL [facility] Sodium 131(L) 135 - 145 mmol/L [facility] Potassium 3.7 3.5 - 5.0 mmol/L [facility] Comment: Please note: ??Patients with WBC >100,000 may have falsely elevated Potassium levels. ??For accurate Potassium quantification in these patients send serum separator tube (gold top) for subsequent determinations. ??Contact the Clinical Chemistry Laboratory if there are any questions. Chloride 96(L) 98 - 107 mmol/L [facility] Carbon Dioxide 25 22 - 31 mmol/L [facility] Anion Gap 10 5 - 15 mmol/L [facility] Calcium 8.4(L) 8.5 - 10.5 mg/dL [facility] Est Glomerular Filtration Rate 107 >=60 mL/min/1. 73 m?? [facility] Comment: This patient's estimated [...] Lab Meredith Root APRN CHEMISTRY ORDERA BLES [facility] [place] [address] * Magnesium (08/23/2022 12:52 AM EDT) Magnesium 0.88 0.69 - 1.07 mmol/L [facility] Blood 08/23/2022 12:5 2 AM EDT 08/23/2022 1:00 AM EDT Narrative Resulting Agency Comment Spec In Lab Meredith Root [employer] CHEMISTRY ORDERA BLES [facility] [place] [address] * XR Abdomen 1 view (Generic) (08/22/2022 [...] who have questions please contact the health healthcare management that requested your imaging first. ? Narrative [...] patients who have questions please contactthe health healthcare management that requested your imaging first. Mreedith Rodriguez [employer] JEANINE IMG DX ORDERABLE S * XR Chest [...] who have questions please contact the health healthcare management that requested your imaging first. ? Narrative 08/22/2022 5:39 PM EDT EXAMINATION: XR [...] patients who have questions please contactthe health healthcare management that requested your imaging first. Meredith Root [employer] IMG DX ORDERABLE S * XR Abdomen 1 view (Generic) (08/22/2022 3:46 PM EDT) Anatomical Region Laterality Modality Abdomen N/A Digital Radiogra phy Impressions 08/22/2022 4:14 PM EDT 1. ??Enteric tube tip and side-port project over the expected location of the right mainstem bronchus. I Nicki Castanon MD discussed the results (Impression #1) with [employer]ER [employer]ISHER Meredith Root on 08/22/2022 4:13 PM and verified [...] who have questions please contact the health healthcare management that requested your imaging first. ? Narrative 08/22/2022 4:14 PM EDT EXAMINATION: XR ABDOMEN 1 VIEW (GENERIC) CLINICAL HISTORY: s/p NGT placement (as entered by ordering provider in the order requisition) TECHNIQUE: Portable supine AP view of the upper abdomen. The right lateral margin of the abdominal cavity and the lower abdomen and pelvis are excluded from the imaged [id number]. COMPARISON: Abdominal radiograph 08/22/2022. FINDINGS: This enteric [...] abdomen and pelvis are excluded from theimaged [id number]. COMPARISON: Abdominal radiograph 08/22/2022. FINDINGS: This enteric [...] patients who have questions please contactthe health healthcare management that requested your imaging first. Meredith Root APRN IMG DX ORDERABLE S * (ABNORMAL) Vitamin B12 (08/22/2022 12:15 PM EDT) Vitamin B12 213(L) 232 - 1,245 pg/mL [facility] Blood 08/22/2022 12:1 5 PM EDT 08/22/2022 12:35 PM EDT Narrative Resulting Agency Comment Spec In Lab Meredith Root APRN CHEMISTRY ORDERA BLES [facility] [place] [address] * XR Abdomen 1 view (Generic) (08/22/2022 [...] who have questions please contact the health healthcare management that requested your imaging first. ? --------ORIGINAL [...] who have questions please contact the health healthcare management that requested your imaging first. ? Impressions 08/22/2022 11:53 AM EDT Feeding tube is present with the tip in the right lower chest. Thank you for letting us participate in the care of this patient. ??If you are a health care provider and have any questions regarding this report, please contact the number below. ??For patients who have questions please contact the health healthcare management that requested your imaging first. ? Narrative 08/22/2022 11:53 AM EDT EXAMINATION: XR [...] patients who have questions please contactthe health healthcare management that requested your imaging first. Meredith Root APRN IMG DX ORDERABLE S * EKG 12 Lead (08/22/2022 7:53 AM EDT) Pathologist [facility] Ventricular rate 79 BPM MUSE SYSTEM Atrial Rate 79 BPM MUSE SYSTEM P-R Interval 134 ms MUSE SYSTEM QRS Duration 80 ms MUSE SYSTEM Q-T Interval 356 ms MUSE SYSTEM QTC Calculated (Bezet) 408 ms MUSE SYSTEM Calculated P [place] 88 degrees MUSE SYSTEM Calculated R [place] 11 degrees MUSE SYSTEM Calculated T [place] 35 degrees MUSE SYSTEM INTERPRETATION Normal sinus rhythm with sinus arrhythmia Nonspecific T wave abnormality Abnormal ECG No previous ECGs available Confirmed by fellow MD Archie, Dana ([id number]) on 08/22/2022 9:42:40 AM Confirmed by MD Rony, Butner ([id number]) on 08/23/2022 8:30:17 AM MUSE SYSTEM 08/22/2022 7:53 AM EDT 08/23/2022 8:30 AM EDT Meredith Root APRN ECG ORDERABLES MUSE SYSTEM * (ABNORMAL) Differential, Automated (08/22/2022 1:10 AM EDT) Neutrophil % 90.2 % [facility] Neutrophil Absolute 5.93 1.70 - 6.10 x10(3)/mc L [facility] Lymph % 3.7 % [facility] Lymphocytes Abs 0.2(L) 0.9 - 3.2 x10(3)/mc L [facility] Monocyte % 5.6 % [facility] Monocyte Abs 0.4 0.3 - 0.9 x10(3)/ L [facility] Eos % 0.0 % [facility] Eosinophils Abs 0.0 0.0 - 0.4 x10(3)/ L [facility] Basophil % 0.2 % [facility] Baso Absolute 0.0 0.0 - 0.1 x10(3)/ L [facility] Immature Gran % 0.30 % [facility] Comment: Immature granulocytes(IG's)percentage and absolute count will include metamyelocytes, myelocytes, and promyelocytes. Blood smears from CBCs yielding IG's will be scanned manually for concordance. If this scan disagrees with the automated IG or if promyelocytes are noted, a manual differential will be performed. Immature Gran Absolute 0.02 0.00 - 0.04 x10(3)/ L [facility] Blood 08/22/2022 1:10 AM EDT 08/22/2022 1:15 AM EDT Narrative Resulting Agency Comment Spec In Lab Mayelin Hoskins MD HEMATOLOGY ORDERABL ES Performing Organization Address City/State/[facility] Co de Phone Number [facility] [place] [address] * (ABNORMAL) Hemogram (08/22/2022 1:10 AM EDT) White Blood Cell 6.6 4.0 - 9.5 x10(3)/mc L [facility] Red Blood Cell 2.87(L) 4.00 - 5.21 x10(6)/mc L [facility] Hemoglobin 9.5(L) 11.7 - 15.5 g/dL [facility] Hematocrit 27.6(L) 35.7 - 45.8 % [facility] Mean Cell Volume 96.2(H) 82.6 - 94.4 fL [facility] Mean Cell Hemoglobin 33.1(H) 27.1 - 32.0 pg [facility] Mean Cell Hemoglobin Concentration 34.4 31.7 - 35.0 g/dL [facility] Platelet 202 145 - 357 x10(3)/mc L [facility] RDW Standard Deviation 42.1 37.0 - 46.0 fL [facility] RDW coefficient of variation 11.9 11.5 - 14.1 % [facility] Mean Platelet Volume 9.1 7.6 - 12.9 fL [facility] NRBC% auto 0.0 % [facility] NRBC Absolute 0.000 0.000 - 0.000 x10(3)/mc L [facility] Blood 08/22/2022 1:10 AM EDT 08/22/2022 1:15 AM EDT Narrative Resulting Agency Comment Spec In Lab Mayelin Hoskins MD HEMATOLOGY ORDERABL ES Performing Organization Address [facility] Co de Phone Number [facility] [place] [address] * Phosphorus (08/22/2022 1:10 AM EDT) Phosphorus 2.7 2.5 - 4.5 mg/dL [facility] Blood 08/22/2022 1:10 AM EDT 08/22/2022 1:15 AM EDT Narrative Resulting Agency Comment Spec In Lab Roberth Lee MD CHEMISTRY ORDERABL ES Performing Organization Address [facility] de Phone Number [facility] [place] [address] * (ABNORMAL) Magnesium (08/22/2022 1:10 AM EDT) Magnesium 0.66(L) 0.69 - 1.07 mmol/L [facility] Blood 08/22/2022 1:10 AM EDT 08/22/2022 1:15 AM EDT Narrative Resulting Agency Comment Spec In Lab Roberth Lee MD CHEMISTRY ORDERABL ES Performing Organization Address [facility] Co de Phone Number [facility] [place] [address] * (ABNORMAL) Basic Metabolic Panel (non-fasting) (08/22/2022 1:10 AM EDT) Glucose 149 65 - 199 mg/dL [facility] Comment:Diabetes: >=200 mg/d L plus symptoms Blood Urea Nitrogen 6(L) 8 - 18 mg/dL [facility] Creatinine 0.64(L) 0.70 - 1.20 mg/dL [facility] Sodium 136 135 - 145 mmol/L [facility] Potassium 4.2 3.5 - 5.0 mmol/L [facility] Comment: Please note: ??Patients with WBC >100,000 may have falsely elevated Potassium levels. ??For accurate Potassium quantification in these patients send serum separator tube (gold top) for subsequent determinations. ??Contact the Clinical Chemistry Laboratory if there are any questions. Chloride 102 98 - 107 mmol/L [facility] Carbon Dioxide 26 22 - 31 mmol/L [facility] Anion Gap 8 5 - 15 mmol/L [facility] Calcium 8.8 8.5 - 10.5 mg/dL [facility] Est Glomerular Filtration Rate 107 >=60 mL/min/1. 73 m?? [facility] Comment: This patient's estimated [...] Lab Roberth Lee MD CHEMISTRY ORDERABL ES [facility] [place] [address] * POCT Glucose (08/21/2022 8:37 PM EDT) Glucose, POC 172 65 - 199 mg/dL [facility] Comment: Supplemental ranges: <140 mg/dL before meals <180 mg/dL all other times of the day Blood 08/21/2022 8:37 PM EDT 08/21/2022 8:37 PM EDT Roberth Lee MD POINT OF CARE TEST ORDERABLES [facility] [place] [address] * (ABNORMAL) BLOOD GAS 2 ARTERIAL (08/21/2022 5:24 PM EDT) pH, Arterial 7.39 7.35 - 7.45 [facility] PCO2, Arterial 34(L) 35 - 45 mmHg [facility] PO2, Arterial 181(H) 85 - 104 mmHg [facility] Bicarbonate, Arterial 20.1 20.0 - 26.0 mmol/L [facility] Base Excess, Arterial -4.8(L) -3.0 - 3.0 mmol/L [facility] Hgb Blood Gas 11.0(L) 11.7 - 15.5 g/dL [facility] Oxyhemoglobin, Arterial 98.6(H) 94.0 - 97.0 % [facility] Carboxyhemoglob in, Arterial 0.3 % [facility] [facility] Comment: Nonsmokers: 0.5-1.5% COHB Smokers: Variable, but usually less than 10% Toxic: 20-30% COHB Lethal: Greater than 60% COHB Methemoglobin, Arterial 0.0 <=1.5 % [facility] Na Whole Blood 134(L) 135 - 145 mmol/L [facility] K Whole Blood 3.6 3.5 - 5.0 mmol/L [facility] Comment: Please note: Patients with WBC >100,000 may have falsely elevated Potassium levels. Contact the Clinical Chemistry Laboratory if there are any questions. ICa Whole Blood 1.05(L) 1.15 - 1.33 mmol/L [facility] Comment: Note: ??Total bilirubin higher than 20 mg/dL may lead to falsely low ionized calcium. CL Whole Blood 106 98 - 107 mmol/L [facility] Gluc Whole Bld 126 65 - 199 mg/dL [facility] Comment:Diabetes: >=200 mg/d L plus symptoms. Lactate WB 1.2 0.5 - 2.2 mmol/L [facility] Blood 08/21/2022 5:24 PM EDT 08/21/2022 5:24 PM EDT Roberth Lee MD POINT OF CARE TEST ORDERABLES Performing Organization Address [facility] [place] [facility] Co de Phone Number [facility] [place] [address] * Specimen to Pathology (08/21/2022 2:13 PM EDT) AP Specimen 08/21/2022 2:13 PM EDT 08/21/2022 2:13 PM EDT Narrative [facility] - 08/21/2022 2:13 PM EDT Specimen requisition ordered. ??Separate Pathology report to follow Roberth Lee MD PATHOLOGY/CYTOLOGY ORDERABLES Performing Organization Address [facility] Co de Phone Number [facility] [place] [address] * Specimen to Pathology (08/21/2022 2:13 PM EDT) AP Specimen 08/21/2022 2:13 PM EDT 08/21/2022 2:13 PM EDT Narrative [facility] - 08/21/2022 2:13 PM EDT Specimen requisition ordered. ??Separate Pathology report to follow Roberth Lee MD PATHOLOGY/CYTOLOGY ORDERABLES Performing Organization Address [facility] [place] [facility] Co de Phone Number [facility] [place] [address] * (ABNORMAL) BLOOD GAS 2 ARTERIAL (08/21/2022 1:27 PM EDT) pH, Arterial 7.42 7.35 - 7.45 [facility] PCO2, Arterial 35 35 - 45 mmHg [facility] PO2, Arterial 162(H) 85 - 104 mmHg [facility] Bicarbonate, Arterial 22.5 20.0 - 26.0 mmol/L [facility] Base Excess, Arterial -2.5 -3.0 - 3.0 mmol/L [facility] Hgb Blood Gas 12.7 11.7 - 15.5 g/dL [facility] Oxyhemoglobin, Arterial 98.8(H) 94.0 - 97.0 % [facility] Carboxyhemoglob in, Arterial 0.2 % [facility] Comment: Nonsmokers: 0.5-1.5% COHB Smokers: Variable, but usually less than 10% Toxic: 20-30% COHB Lethal: Greater than 60% COHB Methemoglobin, Arterial 0.3 <=1.5 % [facility] Na Whole Blood 129(L) 135 - 145 mmol/L [facility] K Whole Blood 3.6 3.5 - 5.0 mmol/L [facility] Comment: Please note: Patients with WBC >100,000 may have falsely elevated Potassium levels. Contact the Clinical Chemistry Laboratory if there are any questions. ICa Whole Blood 1.13(L) 1.15 - 1.33 mmol/L [facility] Comment: Note: ??Total bilirubin higher than 20 mg/dL may lead to falsely low ionized calcium. CL Whole Blood 104 98 - 107 mmol/L [facility] Gluc Whole Bld 123 65 - 199 mg/dL [facility] Comment:Diabetes: >=200 mg/d L plus symptoms. Lactate WB 1.2 0.5 - 2.2 mmol/L [facility] FIO2 Art 56 % [facility] Flow Art 1.0 LPM [facility] PF Ratio Art 289 [facility] Temp Art 34.5 Celsius [facility] Blood 08/21/2022 1:27 PM EDT 08/21/2022 1:27 PM EDT Roberth Lee MD POINT OF CARE TEST ORDERABLES [facility] [place] [address] * (ABNORMAL) BLOOD GAS 2 ARTERIAL (08/21/2022 10:51 AM EDT) pH, Arterial 7.46(H) 7.35 - 7.45 [facility] PCO2, Arterial 32(L) 35 - 45 mmHg [facility] PO2, Arterial 75(L) 85 - 104 mmHg [facility] Bicarbonate, Arterial 23.0 20.0 - 26.0 mmol/L [facility] Base Excess, Arterial -1.6 -3.0 - 3.0 mmol/L [facility] Hgb Blood Gas 13.4 11.7 - 15.5 g/dL [facility] Oxyhemoglobin, Arterial 96.0 94.0 - 97.0 % [facility] Carboxyhemoglob in, Arterial 0.2 % [facility] Comment: Nonsmokers: 0.5-1.5% COHB Smokers: Variable, but usually less than 10% Toxic: 20-30% COHB Lethal: Greater than 60% COHB Methemoglobin, Arterial 0.3 <=1.5 % [facility] Na Whole Blood 134(L) 135 - 145 mmol/L [facility] K Whole Blood 4.0 3.5 - 5.0 mmol/L [facility] Comment: Please note: Patients with WBC >100,000 may have falsely elevated Potassium levels. Contact the Clinical Chemistry Laboratory if there are any questions. ICa Whole Blood 1.18 1.15 - 1.33 mmol/L [facility] Comment: Note: ??Total bilirubin higher than 20 mg/dL may lead to falsely low ionized calcium. CL Whole Blood 103 98 - 107 mmol/L [facility] Gluc Whole Bld 121 65 - 199 mg/dL [facility] Comment:Diabetes: >=200 mg/d L plus symptoms. Lactate WB 1.0 0.5 - 2.2 mmol/L [facility] FIO2 Art 66 % [facility] Flow Art 0.8 LPM [facility] PF Ratio Art 114 [facility] Temp Art 34.0 Celsius [facility] Blood 08/21/2022 10:5 1 AM EDT 08/21/2022 10:51 AM EDT Roberth Lee MD POINT OF CARE TEST ORDERABLES [facility] [place] [address] * Specimen to Pathology (08/21/2022 10:30 AM EDT) AP Specimen 08/21/2022 10:3 0 AM EDT 08/21/2022 10:31 AM EDT Narrative [facility] - 08/21/2022 10:31 AM EDT Specimen requisition ordered. ??Separate Pathology report to follow Roberth Lee MD PATHOLOGY/CYTOLOGY ORDERABLES [facility] [place] [address] * Surgical Pathology Report (08/21/2022 10:26 AM EDT) Final Diagnosis [id number] ? Location: L5WD; N520; A The signing [...] MD Verified: ??08/31/2022 12:44 ??Pathologist Performed at: ??-[facility] Dept. of Pathology, [place] [address] It Integration Architect: Ramírez Arredondo MD, FCAP, ??CLIA Certificate: [id number] DISCUSSION B1: ??The lymph node contains benign [...] Sections/Processi ng: Blocks submitted for decalcification: D1-D5. [employer] sections in 5 cassettes as follows: ?D1: ??Left mandibular margin en face ?D2: ??Right mandibular margin en face ?D3: ??Skin with fistula tract and underlying bone ?D4-D5: ??[employer] dull to chalky yellow cut surfaces ??jnr [...] AM EDT Roberth Lee MD PATHOLOGY/CYTOLOGY ORDERABLES Performing Organization Address [facility] [place] [facility]/ZIP Co de Phone Number [facility] [address] [place] [address] * Specimen to Pathology (08/21/2022 10:26 AM EDT) AP Specimen 08/21/2022 10:2 6 AM EDT 08/21/2022 10:26 AM EDT Narrative [facility] - 08/21/2022 10:26 AM EDT Specimen requisition ordered. 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 documented in this encounter Admitting Diagnoses Diagnosis Mandible fracture Closed fracture of unspecified site of mandible documented in this encounter Administered Medications Inactive Administered Medications - up to 3 most recent administrations Medication Order MAR Action Action Date Dose Rate Site chlorhexidine (Peridex) 0.12 % oral solution PRN, Starting on Sun08/21/22 at 1030, Until Sun08/21/22 at 2151, Intra-Operative (Intra-Procedure), Routine Given 08/21/2022 10:30 AM EDT 473 mLs cyanocobalamin (Vitamin B-12) (Vitamin B-12) tablet [...] EDT 2 patches 09- Arm Upper (Left) lidocaine-EPINEPHrine (1% - 1:100,000) injection PRN, Starting on Sun08/21/22 at 1756, Until Sun08/21/22 at 2151, Intra-Operative (Intra-Procedure), Routine Given 08/21/2022 5:57 PM EDT 10 mLs 19- Surgical Site Given 08/21/2022 5:56 PM EDT 10 mLs 19 - Surgical Site lidocaine-EPINEPHrine (pf) (1% - 1:200,000) injection PRN, Starting on Sun08/21/22 at 0927, Until Sun08/21/22 at 2151, Intra-Operative (Intra-Procedure), Routine Given 08/21/2022 5:44 PM EDT 10 mLs 19- Surgical Site Given 08/21/2022 9:27 AM EDT 9 mLs 19 - Surgical Site LORazepam (Ativan) (2 mg/mL) injection 0.5 mg [...] 6 HOURS PRN, Starting on Sun08/21/22 at 1, Until Sun09/08/22 at 1620, Nausea, Vomiting, Administer [...] Last dose on Sun09/06/22 at 0615, Routine 0017 (Given - Provider: Araceli Velasco RN)0618 (Given - Provider: Araceli Velasco RN) levothyroxine [...] Administer on own to promote absorption, Routine 635 (Given - Provider: Jada Chávez RN) 613 (Given - Provider: Jada Chávez RN) lidocaine [...] site. 0819 (Given - Provider: Suzette Verdugo LPN)2100 (Given - Provider: Jada Chávez RN) 0952 (Given - Provider: Per Meza RN)2102 (Given - Provider: Jada Chávez RN) 0832 (Given - Provider: Didier Perry, FUENTES) protein powder 1 Scoop, Per G Tube, 2 TIMES DAILY, First dose on Sun09/06/22 at 1000, Until Discontinued, Routine 1209 (Given - Provider: Theresa Merino RN)1700 (Given - Provider: Theresa Merino RN) 0900 (Given - Provider: Per Meza RN)1700 (Given - Provider: Per Meza RN) 0900 (Given - Provider: Didier Perry [...] mL/hr, 4 TIMES DAILY, First dose on 6/21/23 at 1000, Until Discontinued, Administer flushes and [...] Meza RN)1300 (New Bag - Provider: Per Meza, [...] 1634, Until Sun09/08/22 at 1620, Anxiety, Routine 210 (Given - Provider: Jada Chávez, FUENTES) 2014 [...] in 30 minutes, give additional 5mg., Routine 0820 (Given - Provider: Suzette Verdugo LPN) oxyCODONE [...] Jada Chávez RN)105 (Given - Provider: Per Meza RN)1604 (Given - Provider: Per Meza RN)2014 (Given - Provider: Jada Chávez RN) 0042 (Given - Provider: Jada Chávez RN)0440 (Given [...] Chávez RN)105 (See Alternative - Provider: Per Meza RN)1604 (See Alternative - Provider: Per Meza RN)2014 (See Alternative - Provider: Jada Chávez RN) 41 (See Alternative - Provider: Jada Chávez, RN)439 (See Alternative - Provider: Jada Chávez RN) [...] Routine documented in this encounter Care Teams Slitter Operator Relationship Specialty Start Date End Date Dev, Tita Butt APRN [address] [place] [address] PCP - General Internal Medicine 05/15/22 documented as of this encounter
--- OUTSIDE RECORDS SUMMARY | 2023-12-08 20:01 | XMS_ITS | Encounter Summary ---
Author Organization [facility] [place] [address] Care Team Providers Care Storekeeper Engineering Name Role Phone Lauren Pires APRN Primary Care Provider [phone] Encounter Details Date Type Department Care Team (Latest Contact Info) Description 05/02/2022 Travel Social History Tobacco Use Types Packs/Day [...] on filedocumented in this encounter Care Teams Storekeeper Engineering Relationship Specialty Start Date End Date Lauren Pires APRN [address] [place] [address] PCP - General Family Medicine 10/13/21 05/14/22 documented as of this encounter
--- OUTSIDE RECORDS SUMMARY | 2023-12-08 20:01 | XMS_ITS | Encounter Summary ---
Author Organization Count Includes [facility] [address] Care Team Providers Care Medical Practice Manager Name Role Phone Dev, Tita Butt APRN Primary Care Provider [phone]- [phone] Reason for Visit * Auth/Cert (Routine) Specialty [...] MICROVASC, FIBULA (WRVU 45.43) Roberth Lee MD [facility] [place] [address] [facility] Referral ID Status Reason Start Date Expiration Date Visits Re quested Visits Authorized [id number] 1 1 Encounter Details Date Type Department Care Team (Late st Contact Info) Description 08/21/2022 8:06 AM EDT Anesthesia [place] [id number] Cole Walker MD [facility] [place] [address] David Morales MD [facility] [place] [address] Anesthesia Record Procedure Summary Procedure Name Responsible Anesthesiologist Anesthesia Start Time Anesthesia Stop Time EXCISION OF BONE, MANDIBLE (WRVU 10.03) (Bilateral) Cole Walker MD 08/21/22 0806 08/21/222020 Events Date Time Event Comment 08/21/2022 0725 0806 AN Verify 0806 Start 0812 An Start Data 0818 An Induction 0827 an chinyere now 0831 An Intubation 0909 Anesthesia Ready 0926 Skin Incision 0934 Quick Note trach 1040 Quick Note recruitment 1055 ABG Data Arterial Blood Gas result: pH(T) 7.455 pCO2(T) 32.5 pO2(T) 75.2 %O2 Sat 94 FiO2 66 HCO3 23 BE -1.6 Hb 13.4 K 4.02 Glucose 121 Lactate 0.99 1156 Break/Relief In I assumed ca re for Break Relief before which we: 1. Identified the patient 2. Identified the responsible provider(s) 3. Reviewed the pertinent medical history 4. Discussed the surgical plan and course 5. Reviewed intra-op anesthesia management and issues during anesthesia 6. Set expectations for the relief (and/or post-procedure) period 7. Allowed opportunity for questions and acknowledgement of understand Toño Chi, JAYLEN 1231 Break/Relief Out 1334 ABG Data Arterial Blood Gas result: pH (T) 7.419 pCO2 (T) 34.7 pO2 (T) 162.1 %O2 Sat 100 FiO2 56 HCO3 22.5 BE -2.5 Hb 12.7 K 3.55 Glucose 123 Lactate 1.20 1523 Break/Relief In I assumed ca re for Break Relief before which we: 1. Identified the patient 2. Identified the responsible provider(s) 3. Reviewed the pertinent medical history 4. Discussed the surgical plan and course 5. Reviewed intra-op anesthesia management and issues during anesthesia 6. Set expectations for the relief (and/or post-procedure) period 7. Allowed opportunity for questions and acknowledgement of understanding MILKA HARRIS MD 5807 Handoff Intra-procedure anesthesia care was transferred after review of the patient's history, current anesthetic/surgical status and procedural plan, anticipated issues and expected post-operative course (including disposition.) Guy Gaytan MD 1725 ABG Data Arterial Blood Gas result: pH 7.39 pCO2 34 pO2 181 %O2 Sat 99 FiO2 50 HCO3 20 BE -5 Hb 11 K 3.6 Glucose 126 Lactate 1.2 1740 An Data Art Arterial line d ampened, not drawing back 1934 Quick Note Airway exchange d for [place] 6.0 cuffed 2010 an stop data 2010 Recovery or ICU Handoff Yumi ent care was transferred to the destination unit staff after review of the patient's medical history, current anesthetic/surgical status and plan, according to the Provider Handoff Checklist. 2020 Stop Meds Name Total Midazolam 2 mg fentaNYL 100 mcg Propofol 170 mg PHENYLephrine 640 mcg ePHEDrine 35 mg Dexamethasone 8 mg Glycopyrrolate 1 mg Succinylcholine 100 mg Dexmedetomidine INF 13.61 mcg Dexmedetomidine 20 mcg Lidocaine 4% LTA 6 mL REMIfentanil INF 2 mg Ampicillin-Sulbactam 9 g PHENYLephrine INF 2,880 mcg HYDROmorphone 2 mg/mL 2.6 mg Rocuronium 85 mg Calcium Chloride 250 mg Propofol INF 98.78 mg Lactated Ringers 3,300 mL lactated ringers infusion 2,500 mL Albumin (human) 5% 1,000 mL * Agents Name O2 * Blood No blood administrations on file. Lines, Drains, and Airways Type Details Placement Removal Incision 08/21/22; 925; (tracheostomy) 08/21/22925 by Terri Cortez RN Incision 08/21/22; 0937; Righ t, lower; leg 08/21/22936 by Terri Cortez RN Incision 08/21/22; 1000; throat 08/21/22 1000 by Itzel Castillo RN Incision 08/21/22; 1739; Righ t, anterior; thigh; Skin graft site 08/21/22 1739 by Itzel Castillo RN (RETIRED) Peripheral IV Line - Single Lumen 08/21/22; 0737; cephalic vein (lateral side of arm), left; [id number] catheter system; Anatomical Landmarks; US Not Used; 20 gauge; distraction, tolerated well; catheter/device intact, no longer indicated; 08/22/22; 1220 08/21/22 0737 by Melvi Christian RN 08/22/22 1220 by Britt Rodriguez RN ETT Mask Ventilation: Ea sy (1); ETT Type: Cuffed, Oral; ETT Size: 7 mm; Exchange: FOB, Bougie; Indirect: Video; Notes: Pre-O2, Asleep; Laryngoscopy Grade: 3; ETT Placement Verified By: Auscultation, Capnometry, Visual; Secured at Teeth: 19 cm; Inserted by: David; Removal Date: 08/21/22; Removal Time: 201908/21/22 08 by Elaine Liu, HEEL BURNISHER 08/21/222019 by Christiane Shultz RN (RETIRED) Peripheral IV Line - Single Lumen 08/21/22; 0838; [id number] catheter system; Anatomical Landmarks; 18 gauge; David; (GA); 0; no longer indicated, removed per policy/procedure, catheter/device intact; 08/29/22; 0812 08/21/22 0838 by Elaine Liu, HEEL BURNISHER 08/29/22 0812 by Haydee Guerra LNA Urethral Catheter 08/21/22; 0845; Surg quin longer than 2 hours; indwelling catheter with core temperature probe; 14; inserted at this facility (inserted without difficulty, clear yellow return); 1; other (see comments) (Pt is under General Anesthesia); 08/22/22; 1623 08/21/22 0845 by Terri Cortez RN 08/22/22 1623 by Trinity Peck RN Arterial Line 08/21/22; 0909; radi al artery, left; 20 gauge; Anatomical Landmarks, Guidewire, Ultrasound Guidance; Yes - US guidance used but Image NOT saved; continuous blood pressure monitoring, frequent blood gas measurement; David; Sterile Gloves, Sterile Prep; 3; radial artery, left, radial artery, right; Remove per CC Red; catheter not patent; 08/21/22; 21008/21/22 0909 by Elaine Liu, HEEL BURNISHER 08/21/22 210 by Christiane Shultz RN Incision 08/21/22; 0937; 08/21/22; 1900 08/21/22 0937 by Terri Cortez RN 08/21/22 190 by Christiane Shultz RN NPWT 08/21/22; 1825; Righ t, anterior, lower; leg; 08/27/22; 1500 (removed during day shift) 08/21/22 182 by Itzel Castillo RN 08/27/22 1500 by Edy Enciso RN Closed/Suction Drain 08/21/22; 190; 1; Left, Anterior; Neck; Bulb; 15 Cypriot 08/21/221905 by Itzel Castillo RN 08/21/222006 by Itzel Castillo RN Closed/Suction Drain 08/21/22; 1946; 1; Right, Anterior; Neck; Bulb; 15 Cypriot 08/21/221946 by Itzel Castillo RN 09/05/22 0900 by Theresa Merino, RN Trach Inserted by: Dr Todd sterling; Surgical Airway Style: Cuffed; Size: 6 mm; Removal Date: 08/25/22; Removal Time: 1606 08/21/221947 by Itzel Castillo RN 08/25/22 160 by Rina Dennis RCP documented in this encounter Social History Tobacco [...] OR Notes * Anesthesia Postprocedure Evaluation - Cole Walker MD - 08/21/2022 8:21 PM EDT Department of Anesthesiology Post-procedure Note Patient: Theresa Hollis Procedure Summary Date: 08/21/22 Room / Location: [facility] OR [facility] MAIN OR Anesthesia Start: 805 Anesthesia Stop: 2020 Procedures: EXCISION OF BONE, MANDIBLE (WRVU 10.03) (Bilateral) @CERVICAL LYMPHADENECTOMY (MODIFIED RADICAL NECK DISSECTION)-JANA , ROBOTIC (WRVU 23.95) (Right) TRACHEOSTOMY, PLANNED (WRVU 5.56) (Neck) RECONSTRUCT MANDIBLE OR MAXILLA, ENDOSTEAL IMPLANT, COMPLETE (WRVU 18.77) (Face) IMPRESSION AND CUSTOM PREPARATION,MANDIBULAR RESECTION PROSTHESIS (WRVU 22.85) (Mouth) @FLAP, FREE OSTEOCUTANEOUS W MICROVASC, FIBULA (WRVU 45.43) RECONSTRUCT MANDIBLE, EXTRAORAL, W/ TRANSOSTEAL BONE PLATE (WRVU 13.62) (Face) SPLIT THICK SKIN GRAFT,100 SQ CM OR LESS, LEGS (WRVU 9.9) (Leg) ADJ.TISSUE TRANSFER, REARRANGEMENT, 10SQ.CM OR LESS, NECK (WRVU 8.6) (Face) 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) Surgeons: Roberth Lee MD; Keyur Ng MD; Cheo Laguna MD Responsible Provider: Cole Walker MD Anesthesia Type: general ASA Status: 3 All Anesthesia Providers: Anesthesiologist: David Morales MD; Cole Walker MD HEEL BURNISHER: Elaine Liu CRNA Sand Technologist: Roberth Gaytan MD Vitals Value Taken Time BP Temp Pulse Resp SpO2 Pain Level Patient Location: ICU Level of Consciousness: Sedated (Pharmacologic/Intentional) Pain Management: Satisfactory Analgesia PONV: None Cardiovascular Status: Hemodynamically Stable Respiratory Status: Stable Respiratory Status and Intubated/Ventilated Postoperative Fluid Status: Intravascular EUvolemia Possible Anesthetic Complications: NONE apparent at time of evaluation Final Primary Anesthesia Type: General (The anesthetic type performed was the same as planned.) Comments: Face to face handoff given. Discussed recent admin of rocuronium and need for continued sedation given no reversal. * Anesthesia Preprocedure Evaluation - David Morales MD - 08/20/2022 10:32 AM EDT Images from the original note were not included. Pre-Anesthesia Evaluation for: Theresa Hollis a 52 y.o. female. Procedure(s): EXCISION OF BONE, MANDIBLE (WRVU 10.03) @EXPLORATION NOT FOLLOWED BY SURGICAL REPAIR, ARTERY; NECK (CAROTID OR SUBCLAVIAN) (WRVU 7.5) RECONSTRUCT MANDIBLE, EXTRAORAL, W/ TRANSOSTEAL BONE PLATE (WRVU 13.62) TRACHEOSTOMY, PLANNED (WRVU 5.56) RECONSTRUCT MANDIBLE OR MAXILLA, ENDOSTEAL IMPLANT, COMPLETE (WRVU 18.77) IMPRESSION AND CUSTOM PREPARATION,MANDIBULAR RESECTION PROSTHESIS (WRVU 22.85) @FLAP, FREE OSTEOCUTANEOUS W MICROVASC, FIBULA (WRVU 45.43) Patient Active Problem List Diagnosis Date Noted [...] MANDIBLE performed by Alfred Vital MD at [facility] ? ? PRO DEBRIDEMENT BONE MUSCLE &/FASCIA 20 SQ CM/< Bilateral 11/17/2019 DEBRIDEMENT SKIN, SUBCU, MUSCLE, BONE, HEAD/NECK (WRVU 4.1) performed by Keyur Ng MD at [facility] MAIN OR ??? PRO INJECTION PLATELET PLASMA WITH IMAGE, HARVEST/PREP 11/17/2019 INJECTION(S), PLATELET RICH PLASMA, ANY SITE, INCLUDING IMAGE GUIDANCE, HARVESTING AND PREPARATION WHEN PERFORMED performed by Keyur Ng MD at [facility] MAIN OR ??? PRO REMOVAL ERUPTED TOOTH WITH ELEVATION OF MUCOPERIOSTEAL FLAP N/A 05/06/2014 SURGICAL EXTRACTIONS REQUIRING ELEVATION OF MUCOPERIOSTEAL FLAP AND REMOVAL OF BONE OR SECTION OF TOOTH performed by Alfred Vital MD at [facility] MAIN OR ??? PRO REMOVAL ERUPTED TOOTH WITH ELEVATION OF MUCOPERIOSTEAL FLAP Bilateral 11/17/2019 SURGICAL EXTRACTIONS REQUIRING ELEVATION OF MUCOPERIOSTEAL FLAP AND REMOVAL OF BONE OR SECTION OF TOOTH (WRVU 1.09) performed by Keyur Ng MD at [facility] MAIN OR ??? SKIN GRAFT Social History Tobacco Use ??? Smoking status: Never ??? Smokeless tobacco: Never Substance Use Topics ??? Alcohol use: Not Currently Comment: seldom, 4 drinks per year Social History Substance and Sexual Activity Drug Use No Allergies Allergen Reactions ??? Tylenol [Acetaminophen] Anaphylaxis ??? Allergenic Fwtjrsw-Xduf-Hczun Itching Applesauce ??? Peanut Itching ??? Benzocaine Made pt tongue red and angry. Irritant reaction - allergy testing negative ??? Birch Other (See Comments) Birch pollen: wheezing and throat constriction Medications: MAR and/or home medications have been reviewed. Physical Exam: Preprocedure Vitals Current as of 08/20/22 1032 No BP, pulse, respiration, SpO2, or temperature recorded. Height: 157.5 cm (5' 2) (06/01/22) Weight: 44.3 kg (97 lb 9.6 oz) (06/01/22) BMI: 17.85 IBW: 45.1 kg (99 lb 5.5 oz) Airway Assessment: Mallampati: III TM distance: >3 FB Neck ROM: limited Cardiovascular Assessment: Rhythm: regular Rate: normal Pulmonary Assessment: unlabored breathing Dental Assessment: Misc Assessment: Patient is wearing No contact(s). IV access: Peripheral line Last Filed Perioperative Cognitive Screening None Anesthesia Plan: ASA 3 general, with a(n) intravenous induction Theresa Hollis is a 52 y.o. BMI 18 female presenting for right neck exploration to find vessels for recon, dobhoff tube placement, Possible g-tube, trach placment, and mandibular reconstruction. Pt has [...] and bougie (6mm ETT). Easy mask. ?? Labs were reviewed Allergies: -- Tylenol (Acetaminophen) -- Anaphylaxis -- Allergenic Fyxocdp-Pqlo-Klwtj -- Itching -- Applesauce -- Peanut -- Itching -- Benzocaine -- Made pt tongue red and angry. Irritant reaction - allergy testing negative -- Birch -- Other (See Comments) -- Birch pollen: wheezing and throat constriction NPO Status: Appropriate Anesthetic Plan: Premedication with midazolam and low dose fentanyl Sedation with precedex gtt during intubation, GA with oral ETT, awake fiberoptic intubation with premedication with lido gel, followed by lido spray to pharynx, and topicalization of cords with lido spray Standard ASA monitoring Adequate IV access David Morales MD PhD #[id number] Region - Other Informed Consent: Anesthetic plan and risks discussed with patient. Plan discussed with HEEL BURNISHER. Anesthesia Screening documented in this encounter Plan of Treatment Not on file documented as of this encounter Visit Diagnoses Not on filedocumented in this encounter Administered Medications Inactive Administered Medications - up to 3 most recent administrations Medication Order MAR Action Action Date Dose Rate Site albumin (human) 5% 250 mL intravenous solution Intravenous, CONTINUOUS PRN, Starting on Sun08/21/22 at 1551, Until Sun08/21/22 at 2010, Anesthesia Intra-op, Routine New Bag 08/21/2022 6:50 PM EDT New Bag 08/21/2022 5:35 PM EDT New Bag 08/21/2022 4:30 PM EDT ampicillin-sulbactam (Unasyn) injection Intravenous, PRN, Starting on Sun08/21/22 at 0917, Until Sun08/21/22 at 2010, Anesthesia Intra-op, Routine Given 08/21/2022 4:02 PM EDT 3 g Given 08/21/2022 12:02 PM EDT 3 g Given 08/21/2022 9:23 AM EDT 3 g calcium chloride 10% (100 mg/mL) injection Intravenous, PRN, Starting on Sun08/21/22 at 1750, Until Sun08/21/22 at 2010, Anesthesia Intra-op, Routine Given 08/21/2022 7:55 PM EDT 100 mg Given 08/21/2022 7:10 PM EDT 50 mg Given 08/21/2022 6:10 PM EDT 50 mg dexAMETHasone (Decadron) injection Intravenous, PRN, Starting on Sun08/21/22 at 0911, Until Sun08/21/22 at 2010, Anesthesia Intra-op, Routine Given 08/21/2022 9:11 AM EDT 8 mg dexmedeTOMIDine (Precedex) (4 mcg/mL) bolus injection (Anesthsia) Intravenous, PRN, Starting on Sun08/21/22 at 0809, Until Sun08/21/22 at 2010, Anesthesia Intra-op, Routine Given 08/21/2022 8:15 AM EDT 8 mcg Given 08/21/2022 8:09 AM EDT 12 mcg dexmedeTOMIDine (Precedex) (4 mcg/mL) in sodium chloride 0.9% 50 mL infusion Intravenous, CONTINUOUS PRN, Starting on Sun08/21/22 at 0818, Until Sun08/21/222010, Anesthesia Intra-op Rate/Dose Change 08/21/2022 8:42 AM EDT 0.2 mcg/kg/hr 2.195 mL/hr New Bag 08/21/2022 8:18 AM EDT 0.5 mcg/kg/hr 5.488 mL/h r ePHEDrine sulfate (5 mg/mL) multi-dose injection Intravenous, PRN, Starting on Sun08/21/22 at 0923, Until Sun08/21/22 at 2010, Anesthesia Intra-op, Routine Given 08/21/2022 1:30 PM EDT 2.5 mg Given 08/21/2022 1:29 PM EDT 2.5 mg Given 08/21/2022 12:38 PM EDT 5 mg fentaNYL (pf) (50 mcg/mL) multi-dose injection Intravenous, PRN, Starting on Sun08/21/22 at 0813, Until Sun08/21/22 at 2010, Anesthesia Intra-op, Routine Given 08/21/2022 9:34 AM EDT 50 mcg Given 08/21/2022 8:18 AM EDT 25 mcg Given 08/21/2022 8:13 AM EDT 25 mcg glycopyrrolate (Robinul) (0.2 mg/mL) multi-dose injection Intravenous, PRN, Starting on Sun08/21/22 at 0806, Until Sun08/21/22 at 2010, Anesthesia Intra-op, Routine Given 08/21/2022 6:40 PM EDT 0.1 mg Given 08/21/2022 5:38 PM EDT 0.1 mg Given 08/21/2022 3:47 PM EDT 0.2 mg HYDROmorphone (Dilaudid) (2 mg/mL) multi-dose injection solution Intravenous, PRN, Starting on Sun08/21/22 at 1054, Until Sun08/21/22 at 2010, Anesthesia Intra-op, Routine Given 08/21/2022 6:50 PM EDT 0.2 mg Given 08/21/2022 6:17 PM EDT 0.4 mg Given 08/21/2022 4:09 PM EDT 1 mg lactated ringers infusion 1,000 mL, at 100 mL/hr, Intravenous, CONTINUOUS, Starting on Sun08/21/22 at 0645, Until Sun08/22/22 at 1042, Day of Surgery (Day of Procedure) Restarted 08/22/2022 2:10 AM EDT 100 mL/hr New Bag 08/21/2022 10:01 AM EDT Restarted 08/21/2022 8:06 AM EDT lactated ringers infusion Intravenous, CONTINUOUS PRN, Starting on Sun08/21/22 at 0839, Until Sun08/21/22 at 2010, Anesthesia Intra-op New Bag 08/21/2022 4:14 PM EDT New Bag 08/21/2022 1:36 PM EDT New Bag 08/21/2022 10:59 AM EDT lidocaine (XYLOCAINE) 4 % external solution Intratracheal, PRN, Starting on Sun08/21/22 at 0818, Until Sun08/21/22 at 2010, Anesthesia Intra-op Given 08/21/2022 8:23 AM EDT 3 mLs Given 08/21/2022 8:18 AM EDT 3 mLs midazolam (pf) (Versed) (1 mg/mL) multi-dose injection Intravenous, PRN, Starting on Sun08/21/22 at 0809, Until Sun08/21/22 at 2010, Anesthesia Intra-op, Routine Given 08/21/2022 8:09 AM EDT 2 mg PHENYLephrine (Jarad-Synephrine) (80 mcg/mL) in sodium chloride 0.9% 250 mL infusion Intravenous, CONTINUOUS PRN, Starting on Sun08/21/22 at 0947, Until Sun08/21/22 at 2010, Anesthesia Intra-op, Routine Rate/Dose Change 08/21/2022 3:35 PM EDT 40 mcg/min 30 mL/hr Rate/Dose Change 08/21/2022 2:21 PM EDT 20 mcg/min 15 mL/h r Rate/Dose Change 08/21/2022 2:19 PM EDT 15 mcg/min 11.25 m L/hr PHENYLephrine in NS (PF) (JARAD-SYNEPHRINE) 0.8 mg/10 mL (80 mcg/mL) multi-dose injection Syringe Intravenous, PRN, Starting on Sun08/21/22 at 0854, Until Sun08/21/22 at 2010, Anesthesia Intra-op, Routine Given 08/21/2022 3:35 PM EDT 80 mcg Given 08/21/2022 10:20 AM EDT 80 mcg Given 08/21/2022 9:14 AM EDT 80 mcg propofoL (Diprivan) (10 mg/mL) infusion Intravenous, CONTINUOUS PRN, Starting on Sun08/21/22 at 1936, Until Sun08/21/22 at 2011, Anesthesia Intra-op, Routine New Bag 08/21/2022 7:36 PM EDT 50 mcg/kg/min 13.17 mL/hr propofoL (Diprivan) 10 mg/mL bolus injection (Anesthesia) Intravenous, PRN, Starting on Sun08/21/22 at 0827, Until Sun08/21/22 at 2010, Anesthesia Intra-op Given 08/21/2022 9:25 AM EDT 20 mg Given 08/21/2022 8:27 AM EDT 130 mg Given 08/21/2022 8:21 AM EDT 20 mg remifentaniL (Ultiva) (0.02 mg/mL) infusion (Anesthesia) Intravenous, CONTINUOUS PRN, Starting on Sun08/21/22 at 0915, Until Sun08/21/22 at 2010, Anesthesia Intra-op Rate/Dose Change 08/21/2022 4:18 PM EDT 0.1 mcg/kg/min 13.17 mL/hr Rate/Dose Change 08/21/2022 3:41 PM EDT 0.08 mcg/kg/min 10 .536 mL/hr Rate/Dose Change 08/21/2022 10:25 AM EDT 0.1 mcg/kg/min 13 .17 mL/hr rocuronium (Zemuron) 10 mg/mL injection Intravenous, PRN, Starting on Sun08/21/22 at 1609, Until Sun08/21/22 at 2010, Anesthesia Intra-op, Routine Given 08/21/2022 7:10 PM EDT 10 mg Given 08/21/2022 6:02 PM EDT 25 mg Given 08/21/2022 5:15 PM EDT 20 mg succinylcholine (Anectine;Quelicin) (20 mg/mL) injection Intravenous, PRN, Starting on Sun08/21/22 at 0827, Until Sun08/21/22 at 2010, Anesthesia Intra-op, Routine Given 08/21/2022 8:27 AM EDT 100 mg documented in this encounter Care Teams Medical Practice Manager Relationship Specialty Start Date End Date Dev, Tita Butt APRN [address] [place] [address] PCP - General Internal Medicine 05/15/22 documented as of this encounter
--- OUTSIDE RECORDS SUMMARY | 2023-12-08 20:01 | XMS_ITS | Encounter Summary ---
Author Organization [facility] [place] [address] Care Team Providers Care Salmon Troll Fisher Name Role Phone Dev, Tita Butt APRN Primary Care Provider [phone]- [phone] Reason for Referral * Diagnostic Test (Routine) - Closed Specialty Diagnoses / Procedures Referred By Contgumaro t Referred To Contact Radiology Diagnoses Pathological fracture of mandible with routine healing Procedures CT Angiogram Lower Extremity Bilat (Generic) Cheo Laguna MD [facility] [place] [address] [facility] [place] [address] Referral ID Status Reason Start Date Expiration Date V isits Requested Visits Authorized [id number] Closed Specialty Service Requested 05/15/2022 11/13/2023 1 1 * Diagnostic Test (Routine) - Closed Specialty Diagnoses / Procedures Referred By Shirley cuevas Referred To Contact Radiology Diagnoses Osteoradionecrosis of jaw Orocutaneous fistula Procedures CT Neck Soft Tissue w Contrast (Generic) Keyur Ng MD [facility] [place] [address] [facility] [place] [address] Referral ID Status Reason Start Date Expiration Date V isits Requested Visits Authorized [id number] Closed Specialty Service Requested 05/02/2022 10/31/2023 1 1 * Diagnostic Test (Routine) - Closed Specialty Diagnoses / Procedures Referred By Contac t Referred To Contact Radiology Diagnoses Osteoradionecrosis of jaw Orocutaneous fistula Procedures CT Face wo Contrast Keyur Ng MD [facility] [place] [address] [facility] [place] [address] Referral ID Status Reason Start Date Expiration Date V isits Requested Visits Authorized [id number] Closed Specialty Service Requested 10/31/2021 05/03/2023 1 1 Reason for Visit * Diagnostic Test (Routine) - Closed Specialty Diagnoses / Procedures Referred By Contac t Referred To Contact Radiology Diagnoses Osteoradionecrosis of jaw Orocutaneous fistula Procedures CT Neck Soft Tissue w Contrast (Generic) Keyur Ng MD [facility] [place] [address] [facility] [place] [address] Referral ID Status Reason Start Date Expiration Date V isits Requested Visits Authorized [id number] Closed Specialty Service Requested 05/02/2022 10/31/2023 1 1 Encounter Details Date Type Department Care Team (Latest Contact Info) Description 05/15/2022 8:48 AM EST - 05/15/2022 11:59 PM EST Hospital [place] [address] Keyur Ng MD [facility] [place] [address] Osteoradionecrosis of jaw; Orocutaneous fistula; 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 amoxicillin-clavulanat e (Augmentin) 500-125 mg TabletIndications:Oste oradionecrosis of jaw Take 1 tablet by mouth 2 times daily. 60 tablet 5 03/08/2022 09/08/2022 levothyroxine (Synthroid) 100 mcg Tablet Take 1 tablet by mouth daily. 90 tablet 3 10/25/2021 07/31/2022 cetirizine (ZyrTEC) 10 mg Tablet Take 10 mg by mouth as needed for Allergies. 08/18/2022 triamcinolone acetonide (Kenalog) 0.1 % PasteIndications:Thrus h Place 1 each onto teeth 2 times daily. 5 g 12 07/13/2021 05/21/2022 fluocinolone and shower cap (Hermleigh-Smoothe/FS Scalp Oil) 0.01 % Oil Apply topically to scalp under shower cap nightly for up to 2 weeks for flares then 1-3 times weekly prn maintenance. 118 mL 3 03/23/2021 11/14/2022 ketoconazole (Nizoral) 2 % Cream Apply topically 2 times daily as needed. For rash on face and/or ears 30 g 3 03/23/2021 09/08/2022 triamcinolone (Kenalog) 0.1 % CreamIndications:Xeros is of skin,Eczema, unspecified type Apply topically to itchy areas on the torso and extremities for up to 14 days per month. Avoid face, skin folds, and genitals. 45 g 02/21/2021 08/18/2022 tacrolimus (Protopic) 0.1 % Ointment Apply topically to affected areas on the face twice daily as needed. 60 g 3 01/03/2021 08/18/2022 pimecrolimus (Elidel) 1 % CreamIndications:Xeros is of skin,Eczema, unspecified type Apply topically to affected areas on the face twice daily as needed. 30 g 1 12/27/2020 08/18/2022 hypromellose (SYSTANE GEL OPHT) Apply to eye 2 times daily. 08/18/2022 acetaminophen (Tylenol) 160 mg/5 mL Suspension Take 15 mg/kg/dose by mouth as needed for Fever. 09/08/2022 documented as of this encounter Plan of Treatment Not on file documented as of this encounter Procedures Procedure Name Priority Date/Time Associated Diagnosis Comments CT ANGIOGRAM LOWER EXTREMITY BILAT Routine 05/15/2022 10:00 AM EST Pathological fracture of mandible with routine healing CT FACE WO CONTRAST Routine 05/15/2022 1 0:00 AM EST Osteoradionecrosis of jaw Orocutaneous fistula CT NECK SOFT TISSUE W CONTRAST Routine 05/15/2022 10:00 AM EST Osteoradionecrosis of jaw Orocutaneous fistula documented in this encounter Results * CT Angiogram Lower Extremity Bilat (Generic) (05/15/2022 10:00 AM EST) Anatomical Region Laterality Modality Hip, Leg, Knee, Thigh, Ankle, Foot Bilateral Computed Tomography Impressions 05/15/2022 1:18 PM EST Normal 3 vessel runoff bilaterally. I have personally reviewed the image(s) and the resident's interpretation and agree with the findings, Akhil Price MD at 05/15/2022 1:18 PM Thank you for letting us participate in the care of this patient. ??If you are a health care provider and have any questions regarding this report, please contact the number below. ??For patients who have questions please contact the health patient care nursing assistant that requested your imaging first. ? Narrative 05/15/2022 1:18 PM EST EXAMINATION: CT ANGIOGRAM LOWER EXTREMITY BILAT (GENERIC) CLINICAL HISTORY: evaluate 3 vessel runoff to foot for free fibula planning TECHNIQUE: Helical CTA of the abdomen, pelvis and lower extremities was performed following the intravenous administration of 149 cc Omnipaque 350. Maximum intensity projection (MIP) were reformatted. 3-D images were generated on an independent workstation. COMPARISON: None FINDINGS: VASCULAR FINDINGS Abdominal aorta: No stenosis or aneurysm. Celiac: No stenosis. SMA: No stenosis. Right renal artery: No stenosis. Left renal artery: No stenosis. ALLEGRA: No stenosis. RIGHT LOWER EXTREMITY Common iliac artery: No stenosis. Internal iliac artery: No stenosis. External iliac artery: No stenosis. Common femoral artery: No stenosis. Profundus femoral artery: No stenosis. Superficial femoral artery: No stenosis. Popliteal artery: No stenosis. Anterior tibial artery: No stenosis. Tibio-peroneal trunk: No stenosis. Posterior tibial artery: No stenosis. Peroneal artery: No stenosis. Dorsalis pedis: No stenosis. Plantar arteries: No stenosis. LEFT LOWER EXTREMITY Common iliac artery: No stenosis. Internal iliac artery: No stenosis. External iliac artery: No stenosis. Common femoral artery: No stenosis. Profundus femoral artery: No stenosis. Superficial femoral artery: No stenosis. Popliteal artery: No stenosis. Anterior tibial artery: No stenosis. Tibio-peroneal trunk: No stenosis. Posterior tibial artery: No stenosis. Peroneal artery: No stenosis. Dorsalis pedis: No stenosis. Plantar arteries: No stenosis. NON-VASCULAR FINDINGS Lower chest: Dependent bibasilar atelectasis. No pleural effusions. Liver: No focal lesions. Bile ducts: Nondilated. Gallbladder: No calcified gallstones. Normal caliber wall. Pancreas: Normal attenuation without ductal dilatation. Spleen: Normal. Adrenals: Normal. Kidneys: Symmetric enhancement. No hydronephrosis. Urinary Bladder: Normal. Lymph Nodes: No enlarged lymph nodes. Bowel: Nondilated, no wall thickening. ?? Peritoneum and mesentery: No ascites, free air, or loculated fluid collection. No mesenteric inflammation. Abdominal Wall: Normal. Reproductive Organs: Large right-sided nabothian cyst arising from the cervix and better evaluated by outside pelvic MRI 07/15/2021. No adnexal masses. Osseous structures: No suspicious findings. Procedure Note Akhil Price MD - 05/15/2022 EXAMINATION: CT ANGIOGRAM LOWER EXTREMITY BILAT (GENERIC) CLINICAL HISTORY: evaluate 3 vessel runoff to foot for free fibulaplanning TECHNIQUE: Helical CTA of the abdomen, pelvis and lower extremities was performed following the intravenous administration of 149 cc Scrluglyl451. Maximum intensity projection (MIP) were reformatted. 3-D images weregenerated on an independent workstation. COMPARISON: None FINDINGS: VASCULAR FINDINGS Abdominal aorta: No stenosis or aneurysm. Celiac: No stenosis. SMA: No stenosis. Right renal artery: No stenosis. Left renal artery: No stenosis. ALLEGRA: No stenosis. RIGHT LOWER EXTREMITY Common iliac artery: No stenosis. Internal iliac artery: No stenosis. External iliac artery: No stenosis. Common femoral artery: No stenosis. Profundus femoral artery: No stenosis. Superficial femoral artery: No stenosis. Popliteal artery: No stenosis. Anterior tibial artery: No stenosis. Tibio-peroneal trunk: No stenosis. Posterior tibial artery: No stenosis. Peroneal artery: No stenosis. Dorsalis pedis: No stenosis. Plantar arteries: No stenosis. LEFT LOWER EXTREMITY Common iliac artery: No stenosis. Internal iliac artery: No stenosis. External iliac artery: No stenosis. Common femoral artery: No stenosis. Profundus femoral artery: No stenosis. Superficial femoral artery: No stenosis. Popliteal artery: No stenosis. Anterior tibial artery: No stenosis. Tibio-peroneal trunk: No stenosis. Posterior tibial artery: No stenosis. Peroneal artery: No stenosis. Dorsalis pedis: No stenosis. Plantar arteries: No stenosis. NON-VASCULAR FINDINGS Lower chest: Dependent bibasilar atelectasis. No pleural effusions. Liver: No focal lesions. Bile ducts: Nondilated. Gallbladder: No calcified gallstones. Normal caliber wall. Pancreas: Normal attenuation without ductal dilatation. Spleen: Normal. Adrenals: Normal. Kidneys: Symmetric enhancement. No hydronephrosis. Urinary Bladder: Normal. Lymph Nodes: No enlarged lymph nodes. Bowel: Nondilated, no wall thickening. Peritoneum and mesentery: No ascites, free air, or loculated fluidcollection. No mesenteric inflammation. Abdominal Wall: Normal. Reproductive Organs: Large right-sided nabothian cyst arising from thecervix and better evaluated by outside pelvic MRI 07/15/2021. No adnexal masses. Osseous structures: No suspicious findings. IMPRESSION Normal 3 vessel runoff bilaterally. I have personally reviewed the image(s) and the resident's interpretationand agree with the findings, Akhil Price MD at 05/15/2022 1:18 PM Thank you for letting us participate in the care of this patient. If youare a health care provider and have any questions regarding this report,please contact the number below. For patients who have questions please contactthe health patient care nursing assistant that requested your imaging first. Cheo Laguna MD IMG CT ORDERABLES * CT Neck Soft Tissue w Contrast (Generic) (05/15/2022 10:00 AM EST) Anatomical Region Laterality Modality Neck, Head Computed Tomogra phy Impressions 05/15/2022 12:08 PM EST Similar appearance of chronic left-sided mandibular osteomyelitis. No recurrent enhancing mass, or fluid collections, or adenopathy identified. Thank you for letting us participate in the care of this patient. ??If you are a health care provider and have any questions regarding this report, please contact the number below. ??For patients who have questions please contact the health patient care nursing assistant that requested your imaging first. ? Electronically signed by: Waldemar Vazquez Do [facility] ??([phone]), at 05/15/2022 12:08 PM Narrative 05/15/2022 12:08 PM EST EXAMINATION: CT NECK SOFT TISSUE W CONTRAST (GENERIC), CT FACE WO CONTRAST CLINICAL HISTORY: Head/neck cancer, monitor; chronic mandible osteomyelitis s/p radiation treatment. ??Need full maxillofacial view as well and neck with contrast. ??Also surgical planning for resection and reconstruction with fibula vascularized graft will be performed assess blood vessels for anastomosis and need full MAXILLOFACIAL view and NECK ct. ??She will also be getting lower extremity angiogram same day TECHNIQUE: CT neck performed after the intravenous administration of contrast. Administered 149.0 ml of OMNIPAQUE 350.00 mg/ml. COMPARISON: Neck and face CT performed 01/21/2018. Facial CT 01/20/2020 FINDINGS: CT NECK: Orbital and intracranial compartments appear unremarkable. Similar posttreatment and postsurgical changes noted, primarily in the left neck. There is retropharyngeal and mild epiglottic tissue thickening/edema. There is no mass identified of the postoperative floor of mouth, tongue base, pharynx or larynx. Extracranial common and internal carotid arteries appear unremarkable. The jugular veins are patent, similarly small superiorly on the right and partially compressed on the left side. There is no parotid gland mass identified. No cervical adenopathy identified. Right submandibular gland is small in similar appearance to prior. No skull base, nasopharynx or additional osseous lesions identified. No apical lung or upper mediastinal pathology noted. CT FACIAL BONES: There is a similar defect, demineralization of the anterior left mandible, with heterogeneous mineralization of the posterior body and angle. No enhancing regional soft tissue mass identified. There is minor mucosal thickening in the right maxillary antrum. No lesions of the maxillary alveolus noted. 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 Calvarium is intact. Procedure Note Waldemar Vazquez DO - 05/15/2022 EXAMINATION: CT NECK SOFT TISSUE W CONTRAST (GENERIC), CT FACE [place] CLINICAL HISTORY: Head/neck cancer, monitor; chronic mandibleosteomyelitis s/p radiation treatment. Need full maxillofacial view as well and neck with contrast. Also surgical planning for resection and reconstruction withfibula vascularized graft will be performed assess blood vessels for anastomosis and need full MAXILLOFACIAL view andNECK ct. She will also be getting lower extremity angiogram same day TECHNIQUE: CT neck performed after the intravenous administration of contrast.Administered 149.0 ml of OMNIPAQUE 350.00 mg/ml. COMPARISON: Neck and face CT performed 01/21/2018. Facial CT 01/20/2020 FINDINGS: CT NECK: Orbital and intracranial compartments appear unremarkable. Similar posttreatment and postsurgical changes noted, primarily in theleft neck. There is retropharyngeal and mild epiglottic tissuethickening/edema. There is no mass identified of the postoperative floor of mouth, tonguebase, pharynx or larynx. Extracranial common and internal carotid arteries appear unremarkable.The jugular veins are patent, similarly small superiorly on the right andpartially compressed on the left side. There is no parotid gland mass identified. No cervical adenopathyidentified. Right submandibular gland is small in similar appearance to prior. No skull base, nasopharynx or additional osseous lesions identified. No apical lung or upper mediastinal pathology noted. CT FACIAL BONES: There is a similar defect, demineralization of the anterior left mandible,with heterogeneous mineralization of the posterior body and angle. Noenhancing regional soft tissue mass identified. There is minor mucosal thickening in the right maxillary antrum. Nolesions of the maxillary alveolus noted. 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 Calvarium is intact. IMPRESSION Similar appearance of chronic left-sided mandibular osteomyelitis. Norecurrent enhancing mass, or fluid collections, or adenopathy identified. Thank you for letting us participate in the care of this patient. If youare a health care provider and have any questions regarding this report,please contact the number below. For patients who have questions please contactthe health patient care nursing assistant that requested your imaging first. Electronically signed by: Waldemar Vazquez Do, [facility]([phone]), at 05/15/2022 12:08 PM Keyur Ng MD [facility] CT ORDERABLES * CT Face wo Contrast (05/15/2022 10:00 AM EST) Anatomical Region Laterality Modality Head Computed Tomogra phy Impressions 05/15/2022 12:08 PM EST Similar appearance of chronic left-sided mandibular osteomyelitis. No recurrent enhancing mass, or fluid collections, or adenopathy identified. Thank you for letting us participate in the care of this patient. ??If you are a health care provider and have any questions regarding this report, please contact the number below. ??For patients who have questions please contact the health patient care nursing assistant that requested your imaging first. ? Electronically signed by: Waldemar Vazquez Do, [facility] ??([phone]), at 05/15/2022 12:08 PM Narrative 05/15/2022 12:08 PM EST EXAMINATION: CT NECK SOFT TISSUE W CONTRAST (GENERIC), CT FACE WO CONTRAST CLINICAL HISTORY: Head/neck cancer, monitor; chronic mandible osteomyelitis s/p radiation treatment. ??Need full maxillofacial view as well and neck with contrast. ??Also surgical planning for resection and reconstruction with fibula vascularized graft will be performed assess blood vessels for anastomosis and need full MAXILLOFACIAL view and NECK ct. ??She will also be getting lower extremity angiogram same day TECHNIQUE: CT neck performed after the intravenous administration of contrast. Administered 149.0 ml of OMNIPAQUE 350.00 mg/ml. COMPARISON: Neck and face CT performed 01/21/2018. Facial CT 01/20/2020 FINDINGS: CT NECK: Orbital and intracranial compartments appear unremarkable. Similar posttreatment and postsurgical changes noted, primarily in the left neck. There is retropharyngeal and mild epiglottic tissue thickening/edema. There is no mass identified of the postoperative floor of mouth, tongue base, pharynx or larynx. Extracranial common and internal carotid arteries appear unremarkable. The jugular veins are patent, similarly small superiorly on the right and partially compressed on the left side. There is no parotid gland mass identified. No cervical adenopathy identified. Right submandibular gland is small in similar appearance to prior. No skull base, nasopharynx or additional osseous lesions identified. No apical lung or upper mediastinal pathology noted. CT FACIAL BONES: There is a similar defect, demineralization of the anterior left mandible, with heterogeneous mineralization of the posterior body and angle. No enhancing regional soft tissue mass identified. There is minor mucosal thickening in the right maxillary antrum. No lesions of the maxillary alveolus noted. 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 Calvarium is intact. Procedure Note Waldemar Vazquez DO - 05/15/2022 EXAMINATION: CT NECK SOFT TISSUE W CONTRAST (GENERIC), CT FACE [place]AST CLINICAL HISTORY: Head/neck cancer, monitor; chronic mandibleosteomyelitis s/p radiation treatment. Need full maxillofacial view as well and neck with contrast. Also surgical planning for resection and reconstruction withfibula vascularized graft will be performed assess blood vessels for anastomosis and need full MAXILLOFACIAL view andNECK ct. She will also be getting lower extremity angiogram same day TECHNIQUE: CT neck performed after the intravenous administration of contrast.Administered 149.0 ml of OMNIPAQUE 350.00 mg/ml. COMPARISON: Neck and face CT performed 01/21/2018. Facial CT 01/20/2020 FINDINGS: CT NECK: Orbital and intracranial compartments appear unremarkable. Similar posttreatment and postsurgical changes noted, primarily in theleft neck. There is retropharyngeal and mild epiglottic tissuethickening/edema. There is no mass identified of the postoperative floor of mouth, tonguebase, pharynx or larynx. Extracranial common and internal carotid arteries appear unremarkable.The jugular veins are patent, similarly small superiorly on the right andpartially compressed on the left side. There is no parotid gland mass identified. No cervical adenopathyidentified. Right submandibular gland is small in similar appearance to prior. No skull base, nasopharynx or additional osseous lesions identified. No apical lung or upper mediastinal pathology noted. CT FACIAL BONES: There is a similar defect, demineralization of the anterior left mandible,with heterogeneous mineralization of the posterior body and angle. Noenhancing regional soft tissue mass identified. There is minor mucosal thickening in the right maxillary antrum. Nolesions of the maxillary alveolus noted. 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 Calvarium is intact. IMPRESSION Similar appearance of chronic left-sided mandibular osteomyelitis. Norecurrent enhancing mass, or fluid collections, or adenopathy identified. Thank you for letting us participate in the care of this patient. If youare a health care provider and have any questions regarding this report,please contact the number below. For patients who have questions please contactthe health patient care nursing assistant that requested your imaging first. 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 documented in this encounter Administered Medications Inactive Administered Medications - up to 3 most recent administrations Medication Order MAR Action Action Date Dose Rate Site iohexoL (Omnipaque) (350 mg/mL) solution 0-200 mL 0-200 mL, Intravenous, ONCE PRN, 1 dose, Starting on Sun05/15/22 at 1007, Until Sun05/15/22 at 1007, Per Protocol, Warning Vesicant/Irritant Medication , Radiology Contrast, Routine Given 05/15/2022 10:07 AM EST 149 mLs documented in this encounter Care Teams Salmon Troll Fisher Relationship Specialty Start Date End Date Dev, Tita Butt APRN [address] [facility] [address] [place] [address] PCP - General Internal Medicine 05/15/22 documented as of this encounter
--- OUTSIDE RECORDS SUMMARY | 2023-12-08 20:01 | XMS_ITS | Encounter Summary ---
Author Organization [facility] [place] [address] Care Team Providers Care Manager Support Services Name Role Phone Pranay Laurensamaria Dickson APRN Primary Care Provider [phone] Reason for Referral * Consultation (Routine) - Closed Specialty Diagnoses / Procedures Referred By Contac t Referred To Contact Diagnoses Acute otitis externa of left ear, unspecified type Otorrhea of left ear Akhil Grant PA [facility] [address] Efraín Rausch MD [address] [place] [id number] Referral ID Status Reason Start Date Expiration Date V isits Requested Visits Authorized [id number] Closed Consult, Test & Treat Non PCP 11/18/2021 05/17/2022 1 1 Encounter Details Date Type Department Care Team (Late st Contact Info) Description 11/18/2021 Orders [place] [address] Juanita Walters carpenter repairer otitis externa of left ear, unspecified type; Otorrhea of left ear Social History Tobacco Use Types Packs/Day Years [...] Associated Diagnoses Orde r Schedule Referral to ENT Outpatient Referral Routine Acute otitis externa of left ear, unspecified type Otorrhea of left ear Ordered: 11/18/2021 documented as of this encounter Visit Diagnoses Diagnosis Acute otitis externa of left ear, unspecified type Otorrhea of left ear Otorrhea, unspecified documented in this encounter Care Teams Manager Support Services Relationship Specialty Start Date End Date Lauren Pires APRN [address] [place] [address] [place] [address] PCP - General Family Medicine 10/13/21 05/14/22 documented as of this encounter
--- OUTSIDE RECORDS SUMMARY | 2023-12-08 20:01 | XMS_ITS | Encounter Summary ---
[place] [address] Care Team Providers Care Production Cook Name Role Phone DevTita carty APRN Primary Care Provider +1- [phone] Encounter Details Date Type Department Care Team (Late st Contact Info) Description 07/13/2022 Telephone [place] [phone] Nicki Miles Social History Tobacco [...] * Telephone Encounter - Nicki Miles - 07/13/2022 9:06 AM EDT Pt called requesting to cancel appt, she does not feel it is needed. documented in this encounter Plan of Treatment Not on file documented as of this encounter Visit Diagnoses Not on filedocumented in this encounter Care Teams Production Cook Relationship Specialty Start Date End Date Tita Méndez APRN [address] [place] [address] PCP - General Internal Medicine 05/15/22 documented as of this encounter
--- OUTSIDE RECORDS SUMMARY | 2023-12-08 20:01 | XMS_ITS | Encounter Summary ---
Author Organization [facility] [place] [address] Care Team Providers Care Microphone Operator Name Role Phone DevTita APRN Primary Care Provider +1- [phone] Encounter Details Date Type Department Care Team (Late st Contact Info) Description 07/11/2022 Transcribe Orders [place] [phone] Anthony Arenas Social History Tobacco Use Types Packs/Day Years [...] on filedocumented in this encounter Care Teams Microphone Operator Relationship Specialty Start Date End Date Tita Méndez APRN [address] [place] [address] PCP - General Internal Medicine 05/15/22 documented as of this encounter
--- OUTSIDE RECORDS SUMMARY | 2023-12-08 20:01 | XMS_ITS | Encounter Summary ---
Author Organization On License Of [place] [address] Care Team Providers Care Forest Officer Name Role Phone Marck Brody DO Primary Care Provider Reason for Referral * Consultation (Routine) - Closed Specialty Diagnoses / Procedures Referred By Shirley cuevas Referred To Contact Otolaryngology Diagnoses Superficial mycosis, unspecified Chronic mycotic otitis externa Christina Vang PA [address] [place] [address] [facility] [address] [place] [id number] Referral ID Status Reason Start Date Expiration Date V isits Requested Visits Authorized [id number] Closed Consult, Test & Treat PCP Updated and/or Approved 08/25/2021 08/25/2022 6 6 Encounter Details Date Type Department Care Team (Late st Contact Info) Description 08/25/2021 Transcribe Orders e[facility] Incoming Referrals [phone] Christina Vnag PA [address] [place] [place] [address] Superficial mycosis, unspecified; Chronic mycotic otitis externa Social History Tobacco Use Types Packs/Day Years [...] Schedule Referral to ENT Outpatient Referral Routine Superficial mycosis, unspecified Chronic mycotic otitis externa Ordered: 08/25/2021 documented as of this encounter Visit Diagnoses Diagnosis Superficial mycosis, unspecified Chronic mycotic otitis externa documented in this encounter Care Teams Forest Officer Relationship Specialty Start Date End Date Marck Brody DO [address] [place] [address] PCP - General 02/08/10 10/12/21 documented as of this encounter
--- OUTSIDE RECORDS SUMMARY | 2023-12-08 20:01 | XMS_ITS | Encounter Summary ---
Author Organization [facility] [place] [address] Care Team Providers Care Chief Warden Name Role Phone Tita Méndez APRN Primary Care Provider +1- [phone] Encounter Details Date Type Department Care Team (Latest Contact Info) Description 06/01/2022 Travel Social History Tobacco Use Types Packs/Day [...] on filedocumented in this encounter Care Teams Chief Warden Relationship Specialty Start Date End Date Tita Médnez APRN [address] [place], [place] [address] PCP - General Internal Medicine 05/15/22 documented as of this encounter
--- OUTSIDE RECORDS SUMMARY | 2023-12-08 20:01 | XMS_ITS | Encounter Summary ---
Author Organization [facility] Address [facility] [place] [address] Care Team Providers Care Horses Or Mules Teamster Name Role Phone ShellyGarima harristemitope Dickson APRN Primary Care Provider [phone] -[phone] Reason for Visit * Reason Comments Otorrhea Not draining current ly but very inflamed per GP. Encounter Details Date Type Department Care Team (Late st Contact Info) Description 10/05/2021 9:00 AM EDT Office [place] [address] Akhil Grant PA [facility] [address] Otorrhea of left ear; Acute otitis externa of left ear, unspecified type Social History Tobacco Use Types Packs/Day Years [...] Sign Reading Time Taken Comments Blood Pressure 106/65 10/05/2021 8:56 AM EDT Pulse 66 10/05/2021 8:56 AM EDT Temperature - - Respiratory Rate 12 10/05/2021 8:56 AM EDT Oxygen Saturation 99% 10/05/2021 8:56 AM EDT Inhaled Oxygen Concentration - - Weight 46.1 kg (101 lb 9.6 oz) 10/05/2021 8:56 A M EDT Height 157.5 cm (5' 2) 10/05/2021 8:56 AM EDT Body Mass Index 18.58 10/05/2021 8:56 AM EDT documented in this encounter Progress Notes * Akhil Grant PA - 10/05/2021 9:00 AM EDT HPI: 51 y.o. 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 Will continue to use the Acetic acid drops. Monitor for ongoing issues and rtc as needed. Interval history: Patient reports several weeks of left sided ear pain, drainage and muffled hearing. She has been evaluated and treated with acetic acid drops and clotrimazole drops as ear culture from - revealed Bharti within the left ear. Symptoms wax and wane but have ultimately not resolved. She is here for reevaluation. Denies fevers chills night sweats, significant change in hearing, dizziness or vertigo, history of ear infections. PMH: reviewed, no interval change System review: the Constitutional and ENT systems are thoroughly reviewed for any changes. Pertinent positives are listed in the HPI. Physical Exam The patient is well developed, well nourished. Responds to commands appropriately. Vocalizes in a strong clear voice. Alert and oriented x3. Ears: The pinnas are without erythema or mass. Facial motor function strong and symmetrical. Both ears were carefully examined using binocular microscopy Left side: Ear canal obstructed with copious amounts of soft tissue and liquid discharge. No obvious fungal elements. Liquid was thick, creamy with evidence of purulent drainage. This was thoroughly cleaned with micro suction and simple tools. Once removed, EAC was erythematous, edematous. Granulation tissue present along the posterior canal wall posterior border of TM. TM appears intact, thickened. Limitedmiddle ear exam good movement with pneumatic otoscopy. Right side: Ear canal clear Tympanic membrane intact and translucent with normal mobility on pneumatic otoscopy. Fistula test is negative. Audiological Exam None Labs and Imaging Significant lab values are as follows: None I reviewed the following imaging studies: None A/P: Discussed with patient that clearly her left ear infection has not resolved. There were no obvious fungal elements on her exam today but given previous culture and quality to liquid debris today, this is most likely a fungal infection. However, given the presence of purulent drainage, granulation tissue and general irritation to the EAC I recommended a course of Ciprodex drops. 4 to 5 drops 3 times per day for 10 days. She should then return to clinic for reevaluation. We will follow-up on cultures obtained today and adjust medications as needed. She is agreeable to this and all questions were answered. LOU Collado, MS, PA-C Otolaryngology [address] [address] phone: [phone] documented in this encounter Plan of Treatment Not on file documented as of this encounter Procedures Procedure Name Priority Date/Time Associated Diagnosis Comments HC GRAM STAIN FOR BACTERIA Routine 10/05/2021 9:37 AM EDT Otorrhea of left ear Acute otitis externa of left ear, unspecified type HC FUNGUS CULTURE, MISC SOURCE Routine 10/05/2021 9:37 AM EDT Otorrhea of left ear Acute otitis externa of left ear, unspecified type documented in this encounter Results * (ABNORMAL) Fungus culture Middle Ear Fluid (10/05/2021 9:37 AM EDT) Fungus Culture Rare Bharti albicans(A) [facility] Organism Bharti albicans(A) [facility] Middle Ear Fluid 10/05/2021 9:37 AM EDT 10/05/2021 10:04 AM EDT Narrative Resulting Agency Comment Spec In Lab Junior Leonard MD MICROBIOLOGY - GENER AL ORDERAB[place] [address] * (ABNORMAL) Ear culture Drainage; Ear, Left (10/05/2021 9:37 AM EDT) Ear Culture Many Pseudomonas aeruginosa Rare normal cutaneous parisa (A) [facility] Gram Stain Few Neutrophils seen Few Gram Negative Rods seen Rare Gram Positive Cocci seen (A) [facility] Organism Pseudomonas aeruginosa(A) [facility] Organism Gram Negative Rods(A) [facility] Organism Gram Positive Cocci(A) [facility] Drainage LEFT EAR STRUCTURE / Unknown 10/05/2021 9:37 AM EDT 10/05/2021 10:04 AM EDT Narrative Resulting Agency Comment Spec In Lab Organism Antibiotic Method Susceptibility Pseudomonas aeruginosa Amikacin MICROSCAN METHOD Sensitive Pseudomonas aeruginosa Aztreonam MICROSCAN METHOD Sensitive Pseudomonas aeruginosa Cefepime MICROSCAN METHOD 8: Sensitive Pseudomonas aeruginosa Ceftazidime MICROSCAN METHOD 4: Sensitive Pseudomonas aeruginosa Ciprofloxacin MICROSCAN METHOD Sensitive Pseudomonas aeruginosa Gentamicin MICROSCAN METHOD Sensitive Pseudomonas aeruginosa Levofloxacin MICROSCAN METHOD Sensitive Comment: Levofloxacin and Ciprofloxacin may not adequately treat infections in critically ill patients even when isolates test susceptible in the laboratory. Contact Infectious Disease before using in critically ill patients. Pseudomonas aeruginosa Meropenem MICROSCAN METHOD <=1: Sensitive Pseudomonas aeruginosa Piperacillin/Tazobactam MICROSC AN METHOD 16: Sensitive Pseudomonas aeruginosa Tobramycin MICROSCAN METHOD Sensitive Junior Leonard MD MICROBIOLOGY - [place] [address] documented in this encounter Visit Diagnoses Diagnosis Otorrhea of left ear Otorrhea, unspecified Acute otitis externa of left ear, unspecified type documented in this encounter Care Teams Horses Or Mules Teamster Relationship Specialty Start Date End Date Lauren Pires APRN [address] [place] [address] PCP - General Family Medicine 10/13/21 05/14/22 documented as of this encounter
--- OUTSIDE RECORDS SUMMARY | 2023-12-08 20:01 | XMS_ITS | Encounter Summary ---
Author Organization [facility] [place] [address] Care Team Providers Care Senior Business Analyst Name Role Phone PranayNatalioLaurensamaria Dickson APRN Primary Care Provider [phone] [phone] Reason for Visit * Reason Comments Follow-up Left ear Encounter Details Date Type Department Care Team (Late st Contact Info) Description 10/21/2021 8:00 AM EDT Office Visit [place] [phone] Akhil Grant PA [facility] [place] [address] Acute otitis externa of left ear, unspecified type; H/O tongue cancer; Thrush Social History Tobacco Use Types Packs/Day [...] of this encounter Progress Notes * Akhil Grant PA - 10/21/2021 8:00 AM EDT HPI: 51 y.o. 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 Interval history: Doing much better. Denies pain, drainage, change in hearing Completed drops on Sunday Getting some Right tongue discomfort PMH: reviewed, no interval change System review: [...] using binocular microscopy Left side: Ear canal clear. Non-erythematous, non-edematous, no obvious fungal debris Tympanic membrane intact and translucent with normal landmarks Nose: External nose is midline without deformity or lesion. Anterior rhinoscopy reveals a straight septum, healthy mucosa, turbinates normal in size. Oral: Previous reconstruction changes. Right molar with obvious decay but no evidence of redness, edema, purulence or abscess. Tongue without concerning lesions or masses. No exposed bone Audiological Exam None Labs and Imaging Significant lab values are as follows: Ear Culture Date Value Ref Range Status 10/05/2021 (A) Final Many Pseudomonas aeruginosa Rare normal cutaneous parisa Fungus Culture Date Value Ref Range Status 10/05/2021 Rare Bharti albicans (A) Final I reviewed the following imaging studies: None A/P: Discussed with patient that there is no evidence of otitis externa. Discussed that cultures did show both bacterial infection and rare yeast. Recommended course of clotrimazole gtts, twice per day for 10 days. Discussed close interval f/u vs f/u PRN and patient elected to f/u PRN. She will call if symptoms worsen or fail to improve. Also recommended washing pinna with anti-dandruff shampoo LOU Collado, MS, [place] [address] phone: [phone] documented in this encounter Plan of Treatment Not on file documented as of this encounter Visit Diagnoses Diagnosis Acute otitis externa of left ear, unspecified type H/O tongue cancer Personal history of malignant neoplasm of tongue Thrush Candidiasis of mouth documented in this encounter Care Teams Senior Business Analyst Relationship Specialty Start Date End Date Lauren Pires APRN [address] [place] [address] [address] [place] [address] PCP - General Family Medicine 10/13/21 05/14/22 documented as of this encounter
--- OUTSIDE RECORDS SUMMARY | 2023-12-08 20:01 | XMS_ITS | Encounter Summary ---
Author Organization [facility] Address [facility] [place] [address] Care Team Providers Care Dietary Service Aide Name Role Phone Marck Brody DO Primary Care Provider Encounter Details Date Type Department Care Team (Late st Contact Info) Description 08/26/2021 Telephone [place] [phone] Hilda Reynolds APRN [facility] [place] [address] Social History Tobacco Use Types Packs/Day Years [...] encounter Miscellaneous Notes * Telephone Encounter - Hilda Reynolds APRN - 08/26/2021 2:19 PM EDT TELEPHONE NOTE Date of call: 08/26/2021 Time of call: 2:19 PM Caller: Hilda Reynolds APRN Reason for call: Called to review the results of the ear culture. Her ear feels better. She has been using the Lotrimin drops Plan/Instructions: F/u with Dr. Lee as planned. Hilda SILVA [facility] Otolaryngology [facility] [place] [address] documented in this encounter Plan of Treatment Not on file documented as of this encounter Visit Diagnoses Not on filedocumented in this encounter Care Teams Dietary Service Aide Relationship Specialty Start Date End Date Marck Brody DO [address] [place] [address] PCP - General 02/08/10 10/12/21 documented as of this encounter
--- OUTSIDE RECORDS SUMMARY | 2023-12-08 20:01 | XMS_ITS | Encounter Summary ---
[facility] Address [facility] [place] [address] Care Team Providers Care Uat Tester Name Role Phone Marck Brody DO Primary Care Provider [phone] Encounter Details Date Type Department Care Team (Late st Contact Info) Description 08/18/2021 10:30 AM EDT Office [place] [phone] Hilda Reynolds APRN [facility] [place] [address] Otorrhea of left ear Social History Tobacco [...] - - Weight 43.1 kg (95 lb) 08/18/2021 10:19 AM EDT Height 157.5 cm (5' 2) 08/18/2021 10:19 AM EDT Body Mass Index 17.38 08/18/2021 10:19 AM EDT documented in this encounter Progress Notes * Rodolfo Hilda E, SOFTWARE TEST SPECIALIST - 08/18/2021 10:30 AM EDT [facility] Follow up note ?? ID: Theresa Hollis is a 50 y.o. female followed for: Primary site: Left lateral tongue Stage: [id number] Surgery(ies): 10/31/06 - Hemiglossectomy, left neck dissection 1-5, skin graft, allograft Radiation: TREATMENT STARTED: 11/28/06 TREATMENT COMPLETED: 01/14/07 TREATMENT: The total maximum dose was 6600 cGy in 33 fractions. Volume reductions were instituted at 5400 cGy in 30 fractions &??6000 cGy in 30 fractions. Chemotherapy: Concurrent cisplatin?? Interval Hx: Theresa is a 51 year old with the above history here for an ear evaluation. She has had otorrhea from the left ear for a few weeks. She was seen at an outside clinic and a culture was obtained. Theresa states it showed yeast. She was started on Ofloxacin. She continue to have drainage and otalgia. She is not hearing well on the left ear. She has not been swimming recently. She does have ongoing drainage from the chin area. She has had this for sometime and has been followed for this with Dr. Lee. He has cultured it a few times.She has been treated with Augmentin for this a few times but it seems to just start draining again. No fevers. Eating and drinking wnl. She did have a PET scan last January that showed chronic left mandibular inflammation with a hx of osteonecrosis. ? Diet: Normal ?? PROBLEM LIST: Patient Active Problem List Diagnosis Code ??? [...] M62.838 ??? Throat discomfort R07.0 PAST MEDICAL HISTORY: Past Medical History: Diagnosis Date ??? Allergic rhinitis ??? Allergy ??? Cancer of head ??? Cancer of head, face, and neck ??? Carpal tunnel syndrome 10/29/2020 ??? 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 Herpes Chickenpox as child. ??? Hyperlipidemia ??? Hypothyroidism SOCIAL HISTORY: Social History Socioeconomic History ??? Marital status: [...] on file Housing Stability: Not on file MEDICATIONS: Current Outpatient Medications: ??? amoxicillin-clavulanate (Augmentin) 500-125 mg Tablet, Take 1 tablet by mouth 2 times daily., Disp: 60 tablet, Rfl: 5 ??? nystatin (Mycostatin) 100,000 unit/mL Suspension, Take 5 mLs by mouth 4 times daily., Disp: 60 mL, Rfl: 3 ??? triamcinolone acetonide (Kenalog) 0.1 % Paste, Place 1 each onto teeth 2 times daily., Disp: 5 g, Rfl: 12 ??? levothyroxine (Synthroid) 88 mcg Tablet, Take 1 tablet by mouth daily., Disp: 90 tablet, Rfl: 3 ??? fluocinolone and shower cap (Tolu-Smoothe/FS Scalp Oil) 0.01 % Oil, Apply topically to scalp under shower cap nightly for up to 2 weeks for flares then 1- 3 times weekly prn maintenance., Disp: 118 mL, Rfl: 3 ??? ketoconazole (Nizoral) 2 % Cream, Apply topically 2 times daily as needed. For rash on face and/or ears (Patient not taking: Reported on 04/29/2021), Disp: 30 g, Rfl: 3 ??? triamcinolone (Kenalog) 0.1 % Cream, Apply topically to itchy areas on the torso and extremities for up to 14 days per month. Avoid face, skin folds, and genitals. (Patient not taking: No sig reported), Disp: 45 g, Rfl: 0 ??? tacrolimus (Protopic) 0.1 % Ointment, Apply topically to affected areas on the face twice dailyas needed. (Patient not taking: No sig reported), Disp: 60 g, Rfl: 3 ??? pimecrolimus (Elidel) 1 % Cream, Apply topically to affected areas on the face twice daily as needed. (Patient not taking: No sig reported), Disp: 30 g, Rfl: 1 ??? hypromellose (SYSTANE GEL OPHT), Apply to eye 2 times daily., Disp: , Rfl: ??? acetaminophen (Tylenol) 160 mg/5 mL Suspension, Take 15 mg/kg/dose by mouth as needed for Fever., Disp: , Rfl: ??? ibuprofen (ADVIL;MOTRIN) 100 mg/5 mL Suspension, Take by mouth every 4 hours as needed for Fever., Disp: , Rfl: ALLERGIES: Allergies Allergen Reactions ??? Allergenic Ndkvdas-Tjvm-Qgzwi Itching Applesauce ??? Peanut Itching ??? Benzocaine Made pt tongue red and angry. Irritant reaction - allergy testing negative ??? Birch Other (See Comments) Birch pollen: wheezing and throat constriction ROS: Pertinent positive findings discussed above. No other findings on review of constitutional visual, cardiovascular, respiratory, gastrointestinal, musculoskeletal, dermatologic, neurological, psychiatric, endocrine, hematologic or immunologic systems. ?? PHYSICAL EXAMINATION: General: Well developed, no distress Head/face: Normocephalic, atraumatic. Ears; Auricles wnl. The EAC on the left has cerumen and fungal debris present. This was removed with the use of vacuum and microscope. A Culture was obtained from the left EAC. The right EAC is clear Oral cavity: Normal exam of the lips, , floor of mouth without lesions, tongue with surgical changes with partial glossectomy. Oral mucosa and palate pink, moist. No lesions or bleeding in oral cavity. Oropharynx: soft palate, lateral pharyngeal wall, posterior pharynx symmetric, Neck:/chin No adenopathy,There is mild erythema along the chin with minimal drainage. Resp: Speech can be understood, no stridor ?? REVIEW OF IMAGES: PET scan 01/2022 Narrative & Impression EXAMINATION: NM PET CT STANDARD PLUS HEAD AND NECK ?? CLINICAL HISTORY: 50-year-old female with history of oral cancer with extensive isma metastases status post surgery and chemoradiation who presents with new unexplained pruritus without rash concerning for possible metastases. ?? TECHNIQUE: Following IV injection of 99-ddwbbe-5-deoxyglucose (FDG) a standard uptake of approximately 60 minutes, a noncontrast CT scan followed by a PET scan were acquired from the top of head to mid thighs. The noncontrast CT was used for anatomic localization and photon attenuation correction of the PET scan. ?? Blood glucose level: 87 mg/dL ?? FDG dose: 6.8 mCi ?? COMPARISON: CT face on 01/20/2020 CT neck on 01/21/2018 PET/CT on 07/02/2008 ?? FINDINGS: ?? HEAD/NECK: Status post left-sided modified radical neck dissection with architectural distortion and multiple left neck dissection surgical clips. Diffusely increased activity along the left posterolateral margin of the remnant tongue muscle (axial images 70 through 74). A small focus of FDG uptake adjacent to surgical clips in the left level 2 region (axial image 64). 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 No significant adenopathy. ?? CHEST: Multiple small FDG avid lymph nodes in the left axilla, consistent with reactive nodes due to recent left arm vaccination (Covid vaccination on 01/16/2021 and influenza vaccination on 02/04/2021). ?? No significant pulmonary nodules. ?? ABDOMEN/PELVIS: Normal activity in all soft tissue regions. No significant adenopathy. Non-FDG avid 3.2 cm right adnexal cyst (axial image 255). ?? SKELETON/EXTREMITIES: No significant osseous abnormalities. ?? IMPRESSION 1. Diffusely increased activity along the left posterolateral margin of the remnant tongue muscle, favored to represent diffuse inflammation and may be due to reported caleb infection. Please correlate with clinical exam. 2. Small focus of FDG uptake adjacent to surgical clips in the left level 2 region, which may represent a small reactive node due to above-mentioned possible infection. 3. 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 4. Non-FDG avid 3.2 cm adnexal cyst. Consider transvaginal ultrasound for further characterization. ?? I have personally reviewed the image(s) and the resident's interpretation and agree with the findings, Steve Henao MD at 02/07/2021 10:50 AM ?? Thank you for letting us participate in the care of this patient. If you are a health care provider and have any questions regarding this report, please contact the number below. For patients who have questions please contact the health overnight caregiver that requested your imaging first. Electronically signed by: Steve Henao MD, [facility] ([phone]), at 02/07/2021 10:50 AM Exam Ended: 02/07/21 08:54 ?? ASSESSMENT/RECOMMENDATIONS: -culture was obtained from the left EAC today. I will start her on Lotrimin drops 1%, 5 gtts bid x 2 weeks. I will call with the results of the culture. Keep the ear dry. 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 MALLY. She continues to have drainage from the chin She has an appt with in a few weeks so will have him evaluate it at that time. She will call or be seen sooner if needed. documented in this encounter Plan of Treatment Not on file documented as of this encounter Procedures Procedure Name Priority Date/Time Associated Diagnosis Comments HC GRAM STAIN FOR BACTERIA Routine 08/18/2021 10:45 AM EDT Otorrhea of left ear documented in this encounter Results * (ABNORMAL) Ear culture Drainage; Ear, Left (08/18/2021 10:45 AM EDT) Ear Culture Few Caleb parapsilosis isolated(A) [facility] Gram Stain No Neutrophils seen. No microorganisms seen. (A) [facility] Organism Caleb parapsilosis(A) [facility] Drainage LEFT EAR STRUCTURE / Unknown 08/18/2021 10:45 AM EDT 08/18/2021 12:05 PM EDT Narrative Resulting Agency Comment Spec In Lab Hilda Reynolds APRN MICROBIOLOGY - GENER AL ORDERABLES [facility] [place] [address] documented in this encounter Visit Diagnoses Diagnosis Otorrhea of left ear Otorrhea, unspecified documented in this encounter Care Teams Uat Tester Relationship Specialty Start Date End Date Marck Brody DO [address] [place] [address] PCP - General 02/08/10 10/12/21 documented as of this encounter
--- OUTSIDE RECORDS SUMMARY | 2023-12-08 20:01 | XMS_ITS | Encounter Summary ---
Author Organization [facility] [address] Care Team Providers Care Ged Instructor Name Role Phone Lauren Pires APRN Primary Care Provider [phone] Reason for Referral * Diagnostic Test (Routine) - Closed Specialty Diagnoses / Procedures Referred By Shirley cuevas Referred To Contact Radiology Diagnoses Osteoradionecrosis of jaw Orocutaneous fistula Procedures CT Neck Soft Tissue w Contrast (Generic) Ada Law MD [facility] [place] [address] [facility] [place] [address] Referral ID Status Reason Start Date Expiration Date V isits Requested Visits Authorized [id number] Closed Specialty Service Requested 05/02/2022 10/31/2023 1 1 Encounter Details Date Type Department Care Team (Latest Contact Info) Description 05/02/2022 8:30 AM EST Office Visit [place] [address] Ada Law MD [facility] [place] [address] Osteoradionecrosis of jaw; Orocutaneous fistula Social History Tobacco Use Types Packs/Day Years [...] as of this encounter Progress Notes * Ada Law MD - 05/02/2022 8:30 AM EST Images from the original note were not included. ORAL-MAXILLOFACIAL SURGERY OUTPATIENT CLINIC FOLLOW-UP VISIT Name: Theresa Hollis Age/Sex: 51 y.o. female History of Present Illness Theresa Hollis is a 51 y.o. female seen for follow-up regarding partial edentulism A complete history of the Theresa 's symptoms and physical signs were reviewed with attention to initial findings and interval progression, pain, bleeding, swelling, lumps, bumps, drainage, dysphagia, odynophagia, paresthesia, dysarthria and systemic effects. Pertinent interval history: ??? Reports things are good ??? Reports planning for mandibular reconstruction surgery ??? No changes ??? Still draining under left anterior submental region ??? Failing dentition with floating prosthesis Past Medical/Social/Dental History Past Medical History: Diagnosis Date ??? Allergic rhinitis ??? Allergy ??? Cancer of head ??? Cancer of head, face, and neck ??? Carpal tunnel syndrome 10/29/2020 ??? 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 Herpes Chickenpox as child. ??? Hyperlipidemia ??? Hypothyroidism Patient Active Problem List Diagnosis Code ??? [...] muscle spasm M62.838 ??? Throat discomfort R07.0 Social History Tobacco Use ??? Smoking status: Never ??? Smokeless tobacco: Never Substance Use Topics ??? Alcohol use: Not Currently Comment: seldom, 4 drinks per year ??? amoxicillin-clavulanate (Augmentin) 500-125 mg Tablet ??? levothyroxine (Synthroid) 100 mcg Tablet ??? cetirizine (ZyrTEC) 10 mg Tablet ??? triamcinolone acetonide (Kenalog) 0.1 % Paste ??? fluocinolone and shower cap (Quimby-Smoothe/FS Scalp Oil) 0.01 % Oil ??? ketoconazole (Nizoral) 2 % Cream ??? triamcinolone (Kenalog) 0.1 % Cream ??? tacrolimus (Protopic) 0.1 % Ointment ??? pimecrolimus (Elidel) 1 % Cream ??? hypromellose (SYSTANE GEL OPHT) ??? acetaminophen (Tylenol) 160 mg/5 mL Suspension ??? ibuprofen (ADVIL;MOTRIN) 100 mg/5 mL Suspension Allergies Allergen Reactions ??? Tylenol [Acetaminophen] Anaphylaxis ??? Allergenic Qmbuqzk-Orpr-Rsozq Itching Applesauce ??? Peanut Itching ??? 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 Plan on moving forward with reconstruction of free fibula flap, implants, and attempt at immediate implant supported prosthesis Recommendations/plan: -Obtain CT imaging of lower extremity and face/neck for virtual surgical planning -She will see Dr. Pascal today for dental work-up especially for assessment of health of upper teeth and to plan for immediate implant supported denture insertion and to discuss transition of temporary denture to final denture in conjunction with treatment planning the aesthetics and health of her upper teeth -Plan is for jaw and a day procedure to reconstruct her lower mandible and will work with Dr. Lee, Dr. Laguna and Dr. Pascal to coordinate this and utilization of virtual surgical planning -Specific concerns addressed: *Rolls of the surgeons and the dentist in this reconstruction was reviewed *She understands the risk that it may not be possible to insert immediate implant supported denturegiven specific concerns with healing of the fibula and soft tissue *Risks reviewed specifically with implant failure, inability to insert immediate prosthesis, need to transition from immediate prosthesis to final prosthesis after 6 months to a year of healing as well as other surgical risks were discussed. Also, prosthetic plan for upper dentition to be evaluated(invisalign, crowns?) coordinate to coincide with final prosthesis fabrication at some point. *Also I discussed need to remove any posterior molars that are deemed nonrestorable which can be done during the procedure We appreciate the opportunity to be involved in Ms. Hollis's care. Ada Law MD, DMD 04/14/2022 3:29 PM This note may have incorporated gddrd-oc-tikk technology and though reviewed typographical or syntax errors may remain. documented in this encounter Miscellaneous Notes * Addendum Note - Ada Law MD - 05/02/2022 8:30 AM ESTAddended by: ADA LAW on: 05/02/2022 01:09 PM Modules accepted: Orders documented in this encounter Plan of Treatment Not on file documented as of this encounter Results * CT Neck Soft Tissue w Contrast [...] who have questions please contact the health adult care provider that requested your imaging first. ? Electronically signed by: Waldemar Vazquez Do, [facility] ??([phone]), at 05/15/2022 12:08 PM Narrative 05/15/2022 12:08 [...] arthritis. Calvarium is intact. Procedure Note Waldemar Vazquez, DO - 05/15/2022 EXAMINATION: CT NECK SOFT [...] patients who have questions please contactthe health adult care provider that requested your imaging first. Electronically signed by: Waldemar Vazquez Do, [facility]([phone]), at 05/15/2022 12:08 PM Ada Law MD IMG CT ORDERABLES documented in this encounter Visit Diagnoses Diagnosis Osteoradionecrosis of jaw Other specified disease of the jaws Orocutaneous fistula Osteoradionecrosis of jaw Other specified disease of the jaws Orocutaneous fistula Pathological fracture of mandible with routine healing documented in this encounter Care Teams Ged Instructor Relationship Specialty Start Date End Date Lauren Pires APRN [address] [place] [address] PCP - General Family Medicine 10/13/21 05/14/22 documented as of this encounter
--- OUTSIDE RECORDS SUMMARY | 2023-12-08 20:01 | XMS_ITS | Encounter Summary ---
Author Organization [facility] [place] [address] Care Team Providers Care Statistical Programmer Name Role Phone Lauren Pires APRN Primary Care Provider [phone] Reason for Visit * Reason Onset Date Comments Medication Refill 12/15/2021 Encounter Details Date Type Department Care Team (Late st Contact Info) Description 12/15/2021 Refill [place] [phone] Hermelindo Kearney PA [facility] [place] [address] Osteoradionecrosis of jaw Social History Tobacco Use [...] jaws documented in this encounter Care Teams Statistical Programmer Relationship Specialty Start Date End Date Lauren Pires APRN [address] [place] [address] PCP - General Family Medicine 10/13/21 2 documented as of this encounter
--- OUTSIDE RECORDS SUMMARY | 2023-12-08 20:01 | XMS_ITS | Encounter Summary ---
[place] [address] Care Team Providers Care Mobile Web Application Developer Name Role Phone Marck Brody DO Primary Care Provider [phone] Reason for Visit * Reason Comments Follow-up Ear cleaning Encounter Details Date Type Department Care Team (Late st Contact Info) Description 09/12/2021 1:00 PM EDT Office [place] [address] Hilda Reynolds APRN [facility] [place] [address] H/O acute otitis externa Social History Tobacco Use Types [...] as of this encounter Progress Notes * Hilda Reynolds APRN - 09/12/2021 1:00 PM EDT Otolaryngology Clinic Note Date of Visit: 09/12/2021 Patient: Theresa Lutz Bunny ([id number]; 1970) Reason for Visit: Theresa is a51 y.o. female with a hx of left otitis externa. 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 She was last seen by after being treated with Lotrimin Drops for the left ear. She was started Vosol solution and asked to f/u for a recheck. She denies any otalgia. No otorrhea. Hearing is fine. She did not start the Acetic acid drops until a few days ago. Procedure - Otologic Microscope Examination: External auditory canal on the left visualized under the operating microscope and ear debris was cleared from the EAC using wire-loop cerumen curette and alligator forceps. Patient tolerated the procedure well without complication. Continue to use the Acetic acid for a few weeks prn. Monitor for any issues. RTC as needed Impression: Hx of otitis externa with dermatitis Plan: Successful cleaning of the left EAC. Will continue to use the Acetic acid drops. Monitor for ongoing issues and rtc as needed. Hilda SILVA [place], [place] [address] Office documented in this encounter Plan of Treatment Not on file documented as of this encounter Visit Diagnoses Diagnosis H/O acute otitis externa Personal history of other disorders of nervous system and sense organs documented in this encounter Care Teams Mobile Web Application Developer Relationship Specialty Start Date End Date Marck Brody DO [address] [place] [address] PCP - General 02/08/10 10/12/21 documented as of this encounter
--- OUTSIDE RECORDS SUMMARY | 2023-12-08 20:01 | XMS_ITS | Encounter Summary ---
Author Organization [facility]ending [facility] [place] [address] Care Team Providers Care Training Development Manager Name Role Phone Lauren Pires APRN Primary Care Provider [phone] [phone] Encounter Details Date Type Department Care Team (Late st Contact Info) Description 03/09/2022 9:32 AM EST - 03/09/2022 11:59 PM [facility] Hospital Encounter Mammography/[place] [phone] Lauren Pires APRN [address] [place], [place] [id number] Encounter for screening mammogram for malignant neoplasm of breast Discharge Disposition: Home Social History Tobacco Use [...] Sig Dispensed Refills Start Date End Date ibuprofen (ADVIL;MOTRIN) 100 mg/5 mL Suspension Take by mouth every 4 hours as needed for Fever. amoxicillin-clavulanat e (Augmentin) 500-125 mg TabletIndications:Oste oradionecrosis of jaw Take 1 tablet by mouth 2 times daily. 60 tablet 5 03/08/2022 09/08/2022 nystatin (Mycostatin) 100,000 unit/mL Suspension Take 5 mLs by mouth 4 times daily for 10 days. 200 mL 2 12/26/2021 05/03/2022 levothyroxine (Synthroid) 100 mcg Tablet Take 1 tablet by mouth daily. 90 tablet 3 10/25/2021 07/31/2022 cetirizine (ZyrTEC) 10 mg Tablet Take 10 mg by mouth as needed for Allergies. 08/18/2022 triamcinolone acetonide (Kenalog) 0.1 % PasteIndications:Thrus h Place 1 each onto teeth 2 times daily. 5 g 12 07/13/2021 05/21/2022 fluocinolone and shower cap (Comfort-Smoothe/FS Scalp Oil) 0.01 % Oil Apply topically [...] Associated Diagnosis Comments MAMMO SCREENING CAD AND DEMETRIO BILATERAL Routine 03/09/2022 10:04 AM EST Encounter for screening mammogram for malignant neoplasm of breast documented in this encounter Results * Mammo Screening Cad and Demetrio Bilateral (03/09/2022 10:04 AM EST) Anatomical Region Laterality Modality Breast Bilateral Mammography Narrative 03/09/2022 10:26 AM EST BILATERAL MAMMOGRAPHY REASON FOR EXAM: [...] CONCLUSION: No mammographic evidence of malignancy. RECOMMENDATION: Regular screening mammograms starting between age 40 and 50 reduces the risk of from breast cancer. All screening tests have both risks and benefits. These risks and benefits should be assessed for each individual patient through discussion with their provider to determine their preferred breast cancer screening schedule. Women should report any breast changes to a health care provider right away. Some women, because of their family history, a genetic tendency, or other factors, should be screened with annual breast MRI as well as with mammograms. (The number of women who fall into this category is very small). Patients and health care providers should discuss each patient? s history to decide if earlier screening and/or breast MRI are appropriate. Screening should continue as long as a woman is in good health and is expected to live 10 years or longer. Screening mammography may not detect 10-15% of breast cancers. A result letter has been sent to this patient by the [facility]. BIRADS CATEGORY 1: NEGATIVE Electronically signed by: Jennifer Amor MD Lauren [place] MAMMO ORDERAB LES documented in this encounter Visit Diagnoses Diagnosis Encounter for screening mammogram for malignant neoplasm of breast Other screening mammogram documented in this encounter Care Teams Training Development Manager Relationship Specialty Start Date End Date Lauren Pires APRN [address] [place] [address] PCP - General Family Medicine 10/13/21 05/14/22 documented as of this encounter
--- OUTSIDE RECORDS SUMMARY | 2023-12-08 20:01 | XMS_ITS | Encounter Summary ---
Author Organization [facility] Address [facility] [place] [address] Care Team Providers Care Director Marketing Name Role Phone Dev, Tita Butt APRN Primary Care Provider [phone]- [phone] Encounter Details Date Type Department Care Team (Latest Contact Info) Description 10/18/2021 1:00 PM EDT TH Visit (TeleHealth) [place] [phone] Evelio Gimenez MD [facility] [place] [address] Hypothyroidism (acquired) Social History Tobacco Use Types [...] Sign Reading Time Taken Comments Blood Pressure 100/60 10/18/2021 1:14 PM EDT Pulse 65 10/18/2021 1:14 PM EDT Temperature - - Respiratory Rate 10 10/18/2021 1:14 PM EDT Oxygen Saturation - - Inhaled Oxygen Concentration - - Weight 45.4 kg (100 lb) 10/18/2021 1:14 PM EDT Height 157.5 cm (5' 2) 10/18/2021 1:14 PM EDT Body Mass Index 18.29 10/18/2021 1:14 PM EDT documented in this encounter Progress Notes * Evelio Gimenez MD - 10/18/2021 1:00 PM EDT Endocrinology Follow-up Note Date of Visit: 10/18/21 Patient: Name: Theresa Hollis : 1970 PCP: Lauren Pires APRN Provided by Evelio Gimenez MD, PhD, FACE, FACP Theresa Hollis was seen in consultation in the Endocrine clinic by Telehealth for: 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 Patient verbally consents to this telehealth visit and understands that this visit may be billed, similar to a clinic office visit. I provided care to the patient today via Phone call. The total time associated with this visit, chart review, documentation, and coordination of care was 20 minutes. HISTORY OF PRESENT ILLNESS: Patient is a very pleasant 51 y.o. female who presents for annual endocrine [...] down to 75-88 mcg qd when she is getting into menopause (last period was 02/14/22). She has been taking LT4 88 mcg 1 tab Sun- Sun and 1.5 tab in Sunday since 08/29/21 to keep TSH at target of 1-3 for her. She knows to take levothyroxine properly with good compliant. Patient has a strong family history of [...] => then 75 mcg=>88 mcg=> 1.5Sun=>100 =>0.5tab Sun=>qow Labs: 02/14/19 10/02/19 12/09/19 02/04/20 03/05/20 05/26/20 [...] better Weight gain - Pretty stable wt 99-100 lbs even while having hypo- or hyper- [...] HISTORY Patient Active Problem List Diagnosis Code ??? [...] muscle spasm M62.838 ??? Throat discomfort R07.0 Allergy Allergies Allergen Reactions ??? Allergenic Vbpzilv-Zbtl-Spvot Itching Applesauce ??? Peanut Itching ??? Benzocaine Made pt tongue red and angry. Irritant reaction - allergy testing negative ??? Birch Other (See Comments) Birch pollen: wheezing and throat constriction Current Medication Current Outpatient Medications on File Prior to Visit Medication Sig Dispense Refill ??? cetirizine (ZyrTEC) 10 mg Tablet Take 10 mg by mouth as needed for Allergies. ??? clotrimazole (LOTRIMIN) 1 % Solution Apply topically 2 times daily. Apply 5 gtts to left ear bid x 14 days (Patient not taking: Reported on 10/05/2021) 30 mL 0 ??? amoxicillin-clavulanate (Augmentin) 500-125 mg Tablet Take 1 tablet by mouth 2 times daily. 60 tablet 5 ??? nystatin (Mycostatin) 100,000 unit/mL Suspension Take 5 mLs by mouth 4 times daily. (Patient not taking: No sig reported) 60 mL 3 ??? triamcinolone acetonide (Kenalog) [...] tablet 3 ??? fluocinolone and shower cap ([place]-Smoothe/FS Scalp Oil) 0.01 % Oil Apply topically to scalp under shower cap nightly for up to 2 weeks for flares then 1- 3 times weekly prn maintenance. (Patient not taking: No sig reported) 118 mL 3 ??? ketoconazole (Nizoral) 2 % Cream Apply topically 2 times daily as needed. For rash on face and/or ears (Patient not taking: No sig reported) 30 g 3 ??? triamcinolone (Kenalog) 0.1 % Cream Apply topically to itchy areas on the torso and extremitiesfor up to 14 days per month. Avoid face, skin folds, and genitals. 45 g 0 ??? tacrolimus (Protopic) 0.1 % Ointment Apply topically to affected areas on the face twice daily as needed. 60 g 3 ??? pimecrolimus (Elidel) 1 % Cream Apply topically to affected areas on the face twice daily as needed. 30 g 1 ??? hypromellose (SYSTANE GEL OPHT) Apply to eye 2 times daily. ??? acetaminophen (Tylenol) 160 mg/5 mL Suspension Take 15 mg/kg/dose by mouth as needed for Fever. ??? ibuprofen (ADVIL;MOTRIN) 100 mg/5 mL Suspension Take by mouth every 4 hours as needed for Fever. No current facility-administered medications on file prior to visit. Social History Social History Socioeconomic History ??? Marital status: [...] Family History Problem Relation Age of Onset ??? Breast Cancer Maternal Grandmother ??? Eczema Mother ??? Amblyopia Paternal Uncle ??? Strabismus Neg Hx ??? Macular Degeneration Neg Hx ??? Glaucoma Neg Hx PHYSICAL EXAM: BP 100/60 Pulse 65 Resp 10 Ht 157.5 cm (5' 2) Wt 45.4 kg (100 lb) BMI 18.29 kg/m?? Very pleasant. Some dysarthria PE from [...] TSH in normal range. EVELIO GIMENEZ MD DIAGNOSIS: 51 y.o. 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 She has been on an increasing dose of levothyroxine from 25 mcg up to 100-112 mcg qd in the past with some fluctuation of TSH 0.04-7.75 range over the past several years (too suppressed with 112 mcg dosing and then better near normal TSH after taking LT4 100 mcg qd for nearly a month before we saw her at initial visit in mid Oct 2020). Lately we had tapered the dose down to 75-88 mcg qd as she is getting into menopause. She has been taking LT4 88 mcg 1 tab Sun-Sun and 1.5 tab in Sunday since 08/29/21 with goal to keep TSH at target of 1-3 and <4 for her. She also has mild hypercholesterolemia on diet control with improvement. Target TSH 1.0-4.0 range to avoid weight loss for her. She felt the best when her TSH was 1.0-2.0. PLAN: 1. Medication: Patient will cont taking levothyroxine 88 mcg Sun-Sun and 1.5 tab Sunday further. She knows to take it on an empty stomach at least 1/2 h before breakfast and separate from iron, calcium or multivitamin-multimineral supplement to ensure full absorption of her thyroid medication. Patient was advised of proper dosage, how to take the medication properly, precautions, and potential complication of the medication prescribed. Addendum 10/18/21: Increased LT4 to 100 mcg qd 12/28/21: + some insomnia and anxiety when TSH is <1.0=> taper LT4 100 mcg 1 tab and only 0.5 tablet (50 mcg) on Sundays for now to keep TSH 1.0-3.0 range. Josee GIMENEZ MD Addendum 05/23/22: TSH 0.87 wit 0.5 tab every other Sundays, and pt prefers TSH 1.0-2.0 so she wants to taper to 0.5 tab on 2 Sundays in a row and 1 tab on the 3rd wk on Sunday whic is ok with me Patient will continue all other medications, healthy diet and execise regularly. 2. To eat healthy diet to keep weight stable or gain some weight back for her BMI of 18. 3. Lab: check lab next week at [facility] lab for TSH as arranged. To recheck lab for TSH locally at [facility] lab in 3 months. Standing order for TSH lab test every 3 months as needed x4 was efaxed to [facility] lab today so she can simply go there for blood test as needed. 4. RTC: 12 months and will check TSH at that time (quick-draw lab so we know the result right away at next visit) We have reviewed our plan outlined above [...] Evelio Gimenez MD, PhD, FACE, FACP cc: Lauren Pires APRN documented in this encounter Miscellaneous Notes * Addendum Note - Evelio Gimenez MD - 10/18/2021 1:00 PM EDTAddended by: EVELIO GIMENEZ on: 10/18/2021 02:01 PM Modules accepted: Level of Service documented in this encounter Plan of Treatment Not on file documented as of this encounter Visit Diagnoses Diagnosis Hypothyroidism (acquired) Unspecified hypothyroidism documented in this encounter Care Teams Director Marketing Relationship Specialty Start Date End Date Dev, Tita Butt APRN [address] [place] [address] PCP - General Internal Medicine 05/15/22 documented as of this encounter
--- OUTSIDE RECORDS SUMMARY | 2023-12-08 20:01 | XMS_ITS | Encounter Summary ---
Author Organization [facility] [place] [address] Care Team Providers Care Manager Renewable Energy Name Role Phone Dev, Tita Butt APRN Primary Care Provider +1- [phone] Reason for Visit * Reason Comments Follow-up Doing well, Encounter Details Date Type Department Care Team (Late st Contact Info) Description 06/01/2022 3:40 PM EDT Office [place] [phone] Roberth Little MD [facility] [place] [address] H/O tongue cancer; Osteoradionecrosis of jaw Social History Tobacco Use [...] Weight 44.3 kg (97 lb 9.6 oz) 06/01/2022 3:19 PM EDT Height 157.5 cm (5' 2) 06/01/2022 3:19 PM EDT Body Mass Index 17.85 06/01/2022 3:19 PM EDT documented in this encounter Progress Notes * Roberth Little MD - 06/01/2022 3:40 PM EDT [facility] OT[facility] BRIEF FOLLOW UP NOTE Theresa Hollis is a 51 y.o. female followed for: ORN mandible She has a history of oral cancer as follows: Primary site: Left lateral tongue Stage: [id number] Surgery(ies): 10/31/06 - Hemiglossectomy, left neck dissection 1-5, skin graft, allograft Radiation: TREATMENT STARTED: 11/28/06 TREATMENT COMPLETED: 01/14/07 TREATMENT: The total maximum dose was 6600 cGy in 33 fractions. Volume reductions were instituted at 5400 cGy in 30 fractions &??6000 cGy in 30 fractions. Chemotherapy: Concurrent cisplatin?? She comes in to discuss the upcoming surgery to address her ORN She also feels that she is having more reactions to different kinds of foods. Had seen an allergistin 2019 and actually was taking chlorpheniramine with some positive effect but stopped taking. ASSESSMENT/RECOMMENDATIONS Extensive discussion about the procedure to resection [...] and if no improvement revisit with the item repair manager. She was satisfied with this plan. Time spent for this encounter including reviewing records, imaging, counseling, and coordination ofcare: 20 minutes. I appreciate the opportunity to be involved in Ms. Hollis's care. ROBERTH LITTLE MD 06/01/2022 documented in this encounter Plan of Treatment Not on file documented as of this encounter Visit Diagnoses Diagnosis H/O tongue cancer Personal history of malignant neoplasm of tongue Osteoradionecrosis of jaw Other specified disease of the jaws documented in this encounter Care Teams Manager Renewable Energy Relationship Specialty Start Date End Date Dev, Tita Butt APRN [address] [place] [address] PCP - General Internal Medicine 05/15/22 documented as of this encounter
--- OUTSIDE RECORDS SUMMARY | 2023-12-08 20:01 | XMS_ITS | Encounter Summary ---
Author Organization [facility] [place] [address] Care Team Providers Care Environmental Aide Name Role Phone Lauren Pires APRN Primary Care Provider [phone] [phone] Reason for Referral * Diagnostic Test (Routine) - Closed Specialty Diagnoses / Procedures Referred By Shirley cuevas Referred To Contact Radiology Diagnoses Osteoradionecrosis of jaw Orocutaneous fistula Procedures CT Face wo Contrast Keyur Ng MD [facility] [place] [address] [facility] [place] [address] Referral ID Status Reason Start Date Expiration Date V isits Requested Visits Authorized [id number] Closed Specialty Service Requested 10/31/2021 05/03/2023 1 1 Encounter Details Date Type Department Care Team (Latest Contact Info) Description 10/27/2021 1:00 PM EDT Office Visit [place] [address] Keyur Ng MD [facility] [place] [address] Osteoradionecrosis of jaw; Orocutaneous fistula [...] Progress Notes * Keyur Ng MD - 10/27/2021 1:00 PM EDT Images from the original note were not included. ORAL-MAXILLOFACIAL SURGERY OUTPATIENT CLINIC INITIAL VISIT Name: Theresa Hollis Age/Sex: 51 y.o. female History of Present Illness ??? Theresa Hollis is a 51 y.o. female presents today to discuss next steps in reconstructive jawsurgery involving placement of dental implant on fibula resection. Surgery is being planned for August 2022 Medical History: Procedure performed 11/17/2019. A complete history of the Theresa 's symptoms and physical signs were reviewed with attention to initial findings and progression, pain, bleeding, swelling, lumps, bumps, drainage, dysphagia, odynophagia, paresthesia, dysarthria and systemic effects. Pertinent notations from today's history: ??? Presents with Junior ??? Reports things are fine since last visit March 2020 ??? Wants to consider resection and fibula reconstruction in July 2022 and interested in implants and fibula Past Medical/Social/Dental History Past Medical History: Diagnosis [...] Comment: seldom, 4 drinks per year ??? levothyroxine (Synthroid) 100 mcg Tablet ??? clotrimazole (LOTRIMIN) 1 % Solution ??? cetirizine (ZyrTEC) 10 mg Tablet ??? amoxicillin-clavulanate (Augmentin) 500-125 mg Tablet ??? nystatin (Mycostatin) 100,000 unit/mL Suspension ??? triamcinolone acetonide (Kenalog) 0.1 % Paste ??? fluocinolone and shower cap ([place]-Smoothe/FS Scalp Oil) 0.01 % Oil ??? ketoconazole (Nizoral) 2 % Cream ??? triamcinolone (Kenalog) 0.1 % Cream ??? tacrolimus (Protopic) 0.1 % Ointment ??? pimecrolimus (Elidel) 1 % Cream ??? hypromellose (SYSTANE GEL OPHT) ??? acetaminophen (Tylenol) 160 mg/5 mL Suspension ??? ibuprofen (ADVIL;MOTRIN) 100 mg/5 mL Suspension Allergies Allergen Reactions ??? Allergenic Smaamps-Gtoa-Hjwiq Itching Applesauce ??? Peanut Itching ??? Benzocaine Made pt tongue red and angry. Irritant reaction - allergy testing negative ??? Birch Other (See Comments) Birch pollen: wheezing and throat constriction Review of Systems Pertinent positive and negative findings discussed above. ROS with attention to cardiac, pulmonary,hepatic, renal, neurologic and dermatologic systems reviewed with relevant findings as noted. Physical Exam Focused oral exam: Present with No oral lesions visualized Left submental region with fistula and slight erythema Partial denture present with attachment to tooth #32- Lower left quadrant small area of bone exposure in #20 region Teeth #27 and #28 present Teeth #3- #15 present- caries noted on teeth #14 and #15 Neuro: a/o x3 Neck: soft, supple Psych: appropriate, responds to questions normally Imaging New panorex taken today Personally reviewed and evaluated. #30, 27, 28 present with moth eaten appearence of bone ASSESSMENT & RECOMMENDATIONS Assessment: chronic ORN of the mandible Recommendations/plan: Will try to provide jaw in a day with immediate implants and teeth Despite medical management still progressing with mami cutaneous fistula Will move forward with fibula, implant (and teeth) fabrication. Will try to onboard Dentist, Dr. Pascal preoperatively as well. Patient getting ct angio of leg in and will get CT of face to aid in virtual surgical planning and will attempt to have immediate prosthesis made at same time. [facility] will need management of upper teeth and will ask Dr. Pascal to provide treatment plan of upper teeth that may require extraction of posterior molars (in particular #3,14,15). Possible invasalign therapy as part of comprehensive treatment once patient transitions into final implant supported prosthesis I did review chance of failure of implants, inability to deliver immediate prosthesis, and need forextensive soft tissue management. We appreciate the opportunity to be involved in Ms. Hollis's care. Keyur Ng MD, DMD 10/27/2021 12:44 PM This note may have incorporated [id number] technology and though reviewed typographical or syntax errors may remain. documented in this encounter Plan of Treatment Not on file documented as of this encounter Results * CT Face wo Contrast (05/15/2022 10:00 [...] who have questions please contact the health home care coordinator that requested your imaging first. ? Narrative 05/15/2022 12:08 PM EST EXAMINATION: CT [...] patients who have questions please contactthe health home care coordinator that requested your imaging first. Keyur Ng MD IMG CT ORDERABLES documented in this encounter Visit Diagnoses Diagnosis Osteoradionecrosis of jaw Other specified disease of the jaws Orocutaneous fistula Osteoradionecrosis of jaw Other specified disease of the jaws Orocutaneous fistula Pathological fracture of mandible with routine healing documented in this encounter Care Teams Environmental Aide Relationship Specialty Start Date End Date Lauren Pires APRN [address] [place] [address] PCP - General Family Medicine 10/13/21 05/14/22 documented as of this encounter
--- OUTSIDE RECORDS SUMMARY | 2023-12-08 20:01 | XMS_ITS | Encounter Summary ---
Author Organization [facility] [place] [address] Care Team Providers Care Medicare Sales Executive Name Role Phone Dev, Tita Butt APRN Primary Care Provider [phone]- [phone] Reason for Referral * Diagnostic Test (Routine) - Closed Specialty Diagnoses / Procedures Referred By Contgumaro t Referred To Contact Radiology Diagnoses Pathological fracture of mandible with routine healing Procedures CT Angiogram Lower Extremity Bilat (Generic) Cheo Laguna MD [facility] [place] [address] [facility] [place] [address] Referral ID Status Reason Start Date Expiration Date V isits Requested Visits Authorized [id number] Closed Specialty Service Requested 05/15/2022 11/13/2023 1 1 Encounter Details Date Type Department Care Team (Late st Contact Info) Description 05/15/2022 Orders [place] [address] Cheo Laguna MD [facility] [address] Pathological fracture of mandible with routine healing Social History Tobacco Use Types Packs/Day Years [...] as of this encounter Results * CT Angiogram Lower [...] who have questions please contact the health career information specialist that requested your imaging first. ? Narrative [...] following the intravenous administration of 149 cc [id number]. Maximum intensity projection (MIP) were reformatted. 3-D [...] patients who have questions please contactthe health career information specialist that requested your imaging first. Cheo Laguna MD IMG CT ORDERABLES documented in this encounter Visit Diagnoses Diagnosis Osteoradionecrosis of jaw Other specified disease of the jaws Orocutaneous fistula Pathological fracture of mandible with routine healing Pathological fracture of mandible with routine healing documented in this encounter Care Teams Medicare Sales Executive Relationship Specialty Start Date End Date Dev, Tita Butt APRN [address] [facility] [address] [place] [address] PCP - General Internal Medicine 05/15/22 documented as of this encounter
--- OUTSIDE RECORDS SUMMARY | 2023-12-08 20:01 | XMS_ITS | Encounter Summary ---
Author Organization [facility] Address [facility] [place] [address] Care Team Providers Care Parts Counter Specialist Name Role Phone Lauren Pires APRN Primary Care Provider [phone] Reason for Visit * Reason Comments Follow-up Pt. Is having some d iscomfort in the jaw area but she said it has pretty much resolved itself. Her neck feels tight as well. Encounter Details Date Type Department Care Team (Late st Contact Info) Description 03/16/2022 11:30 AM EST Office Visit Otolaryngology at [facility] [place] [address] Hermelindo Kearney PA [facility] [place] [address] H/O tongue cancer; Osteoradionecrosis of jaw Social [...] - Inhaled Oxygen Concentration - - Weight 44.5 kg (98 lb 3.2 oz) 03/16/2022 11:28 A M EST Height 157.5 cm (5' 2) 03/16/2022 11:28 AM EST Body Mass Index 17.96 03/16/2022 11:28 AM EST documented in this encounter Progress Notes * Hermelindo Kearney PA - 03/16/2022 11:30 AM EST [facility] OTOLARYNGOLOGY FOLLOW UP NOTE Theresa Hollis is a 51 y.o. female followed for: oral cancer; osteoradionecrosis of the mandible Primary site: Left lateral tongue Stage: [id number] Surgery(ies): 10/31/06 - Hemiglossectomy, left neck dissection 1-5, skin graft, allograft Radiation: TREATMENT STARTED: 11/28/06 TREATMENT COMPLETED: 01/14/07 TREATMENT: The total maximum dose was 6600 cGy in 33 fractions. Volume reductions were instituted at 5400 cGy in 30 fractions &??6000 cGy in 30 fractions. Chemotherapy: Concurrent cisplatin? She has been diagnosed with osteoradionecrosis of the mandible. She has had intermittent drainage from the chin. At her last visit with Dr. Lee on 09/05/21, there was no evidence of recurrence, but there was exposed mandible along the lingual aspect of the mandible which was new. New issues since last visit: Was noting some swelling recently. Had a bad Sunday night with lots of mucous. Noted a lot of tightness in her neck. Was noting limitation of breathing. Went to the ED. Feels the difficulty with her breathing was related to tylenol use. Feels has small muscle spasms in her esophagus. Wondered if taking the Augmentin wa related and stopped taking the augmentin. Started to note swelling about 3 days later, though. Restarted the Augmentin, and the swelling improved. Started to note a lump in her chin about 3 days ago. Did take ibuprofen yesterday; isn't noticing it as much today. Feels this was helpful. Has been having difficulty with sensitivities to some foods recently as well. Can only take liquid medications. Saw her corn crop supervisor recently. [place] that there may be a small sore on the left. Has been applying triamcinolone to it. No pain currently. No drainage in the mouth. PROBLEM LIST Patient Active Problem List Diagnosis [...] to Visit Medication Sig Dispense Refill ??? amoxicillin-clavulanate (Augmentin) 500-125 mg Tablet Take 1 tablet by mouth 2 times daily. 60 tablet 5 ??? levothyroxine (Synthroid) 100 mcg Tablet Take 1 tablet by mouth daily. 90 tablet 3 ??? cetirizine (ZyrTEC) 10 mg Tablet Take 10 mg by mouth as needed for Allergies. ??? triamcinolone acetonide (Kenalog) 0.1 % Paste Place 1 each onto teeth 2 times daily. (Patient taking differently: Place 1 each onto teeth as needed.) 5 g 12 ??? fluocinolone and shower cap ([place]-Smoothe/FS Scalp Oil) 0.01 % Oil Apply topically [...] visit. ALLERGIES Allergies Allergen Reactions ??? Allergenic Xadtyor-Lakg-Pihoe Itching Applesauce ??? Peanut Itching ??? Benzocaine [...] intact. - No evidence of nystagmus. NOSE - Patent anteriorly with adequate airflow, healthy pink mucosa. - Septum is midline without significant deviation. - Inferior turbinates normal exam. MOUTH - Lips and gingiva pink, moist, without lesions. Mandible exposure on the left, anteriorly, and about 2cms more posteriorly, focally; no associated erythema, drainage, or other evidence of infection.. - Tongue and floor of mouth soft without lesions or masses. - Hard palate without lesions. PHARYNX - Soft palate without lesions. - Uvula is midline. - Oropharynx symmetric. NECK - No significant lymphadenopathy. - Defecto of 1-2 mm along the left anterior mandible inferior aspect, with scant purulence elicitedwith palpation. - Thyroid gland without masses or asymmetry. - Trachea midline without deviation. NEURO - Cranial nerves II-XII grossly intact and symmetric. - Responds appropriately to questions. PSYCHE - Normal mood and affect. PROCEDURES REVIEW OF IMAGES/STUDIES ASSESSMENT/RECOMMENDATIONS Theresa Hollis is a 51 y.o. female with the above noted history and clinical exam findings. Some scant drainage noted along the left anterior mandible's inferior aspect, but no concerning swelling noted. She does appear to have two focal areas of mandible exposure on the left lingual aspect. Discussed her continuing with the oral antibiotics, and to restart salt water rinses. Discussed her making an appointment with Dr. Ng when she sees Dr. Laguna next at the end of April. Discussed her calling to be seen for any worsening symptoms in the interim. - The patient expressed understanding of these points and agreement with the plan, and all questions that were asked were answered to the patient's satisfaction. Plan: > Restart salt water rinses. > Continue antibiotics. > Follow up with Dr. Ng and Dr. Laguna regarding upcoming surgery. > Patient should call if their symptoms worsen, if new concerning symptoms arise, or if they have any questions or concerns regarding their treatment. I appreciate the opportunity to be involved in Ms. Hollis's care. Hermelindo Kearney PA-C [place], [place] [address] Office 03/16/2022 documented in this encounter Plan of Treatment Not on file documented as of this encounter Visit Diagnoses Diagnosis H/O tongue cancer Personal history of malignant neoplasm of tongue Osteoradionecrosis of jaw Other specified disease of the jaws documented in this encounter Care Teams Parts Counter Specialist Relationship Specialty Start Date End Date Lauren Pires APRN [address] [facility] [address] [place] [address] PCP - General Family Medicine 10/13/21 05/14/22 documented as of this encounter
[2023-12-08 20:02] VITALS: BP 143/103; PULSE 113; RESP 18; TEMP 36.8; O2SAT 87
--- OUTSIDE RECORDS SUMMARY | 2023-12-08 20:02 | XMS_ITS | Encounter Summary ---
[place] [address] Care Team Providers Care Sub Master Name Role Phone Marck Brody DO Primary Care Provider Encounter Details Date Type Department Care Team (Late st Contact Info) Description 08/20/2020 [place] [phone] Octavia Abreu RN Osteonecrosis of mandible (Primary Dx); H/O tongue cancer Social History Tobacco Use Types Packs/Day Years Used Date Smoking Tobacco: Never Smokeless Tobacco: Never Alcohol Use Standard Drinks/Week Comments Yes 0 (1 standard drink = 0.6 oz pur e alcohol) seldom, 4 drinks per year Sex and Gender Information Value Date Recorded Sex Assigned at Not on file Gender Identity Not on file Sexual Orientation Not on file documented as of this encounter Plan of Treatment Not on file documented as of this encounter Visit Diagnoses Diagnosis Osteonecrosis of mandible- Primary Aseptic necrosis of other bone site H/O tongue cancer Personal history of malignant neoplasm of tongue documented in this encounter Care Teams Sub Master Relationship Specialty Start Date End Date Marck Brody DO [address] [place], [place] [address] PCP - General 02/08/10 10/12/21 documented as of this encounter
--- OUTSIDE RECORDS SUMMARY | 2023-12-08 20:02 | XMS_ITS | Encounter Summary ---
[place] [address] Care Team Providers Care Kohinoor Operator Name Role Phone Marck Brody DO Primary Care Provider [phone] Encounter Details Date Type Department Care Team (Late st Contact Info) Description 05/26/2020 Orders [place] [phone] Octavia Abreu, RN Facial abscess (Primary Dx); Osteonecrosis of mandible Social History Tobacco Use [...] as of this encounter Visit Diagnoses Diagnosis Facial abscess- Primary Cellulitis and abscess of face Osteonecrosis of mandible Aseptic necrosis of other bone site documented in this encounter Care Teams Kohinoor Operator Relationship Specialty Start Date End Date Marck Brody DO [address] [place] [address] PCP - General 02/08/10 10/12/21 documented as of this encounter
--- OUTSIDE RECORDS SUMMARY | 2023-12-08 20:02 | XMS_ITS | Encounter Summary ---
[place] [address] Care Team Providers Care Lapel Stitcher Name Role Phone Marck Brody DO Primary Care Provider Encounter Details Date Type Department Care Team (Late st Contact Info) Description 08/31/2020 Orders [place] [phone] Octavia Abreu RN Osteonecrosis of mandible (Primary [...] tongue documented in this encounter Care Teams Lapel Stitcher Relationship Specialty Start Date End Date Marck Brody DO [address] [place], [place] [address] PCP - General 02/08/10 10/12/21 documented as of this encounter
--- OUTSIDE RECORDS SUMMARY | 2023-12-08 20:02 | XMS_ITS | Encounter Summary ---
Author Organization [facility] [place] [address] Care Team Providers Care Racing Board Marker Name Role Phone Marck Brody DO Primary Care Provider [phone] Reason for Visit * Reason Onset Date Comments Medication Refill 07/22/2021 Encounter Details Date Type Department Care Team (Late st Contact Info) Description 07/22/2021 Refill [place] [phone] Ilda Estrada MD [facility] [place] [address] Osteoradionecrosis of jaw Social History Tobacco Use [...] jaws documented in this encounter Care Teams Racing Board Marker Relationship Specialty Start Date End Date Marck Brody DO [address] [place] [address] PCP - General 02/08/10 10/12/21 documented as of this encounter
--- OUTSIDE RECORDS SUMMARY | 2023-12-08 20:02 | XMS_ITS | Encounter Summary ---
Author Organization [facility] [place] [address] Care Team Providers Care Scientific Software Engineer Name Role Phone Marck Brody DO Primary Care Provider Reason for Visit * Reason Comments Establish Care * Consultation (Routine) - Closed Specialty Diagnoses / Procedures Referred By Shirley cuevas Referred To Contact Obstetrics and Gynecology Diagnoses H/O tongue cancer Osteoradionecrosis of jaw Roberth Lee MD [facility] [place] [address] [facility] [address] [place] [address] Referral ID Status Reason Start Date Expiration Date V isits Requested Visits Authorized [id number] Closed Consult, Test & Treat 02/07/2021 02/07/2022 1 1 Encounter Details Date Type Department Care Team (Late st Contact Info) Description 03/07/2021 1:40 PM EST Office Visit Obstetrics [place] [address] Essence Gant MD [facility] DR OBSTETRICS & [place] [address] Adnexal cyst Social History Tobacco Use Types Packs/Day Years [...] Sign Reading Time Taken Comments Blood Pressure 109/86 03/07/2021 1:27 PM EST Pulse 75 03/07/2021 1:27 PM EST Temperature 37.3 ??C (99.2 ??F) 03/07/2021 1:27 PM ES T Respiratory Rate 20 03/07/2021 1:27 PM EST Oxygen Saturation 99% 03/07/2021 1:27 PM EST Inhaled Oxygen Concentration - - Weight 43.1 kg (95 lb) 03/07/2021 1:27 PM EST Height 157.5 cm (5' 2) 03/07/2021 1:27 PM EST Body Mass Index 17.38 03/07/2021 1:27 PM EST documented in this encounter Progress Notes * Essence Gant - 03/07/2021 1:40 PM EST Gynecology New Patient Visit Patient Name: Theresa Henley Date of : 1970 Primary Care Provider: Marck Brody DO Date of Visit: 03/07/2021 Reason for Visit: THERESA HENLEY is a 50 y.o.. 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 Subjective: Theresa denies any associated abdominal symptoms. She notes that she was previously on a medication called Evoxac to promote salivation which caused some reflux and bloating but has since discontinued it. She is still having relatively normal periods. 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 Patient is perimenopausal. Having regular periods, generally regular - last period wasn't bad. Occasionally has cramping, but not lately. Vasectomy for contraception, but not currently sexually active. Last PAP February 2020? Done by Dr. Brody. Patient denies abnormals Hx of Wet Process Assistant Head [employer] surgery: none Hx of Endometriosis/Ovarian Cysts/STI: none Past Med Hx: Tongue cancer diagnosed at 36 Hypothyroidism Eczema Past Surgical Hx: Multiple Jaw surgeries No abdominal surgeries Family Hx: Maternal GM with multiple cancers, may have had reproductive organ with cancer, not sure. 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 ROS: Constitutional: No fevers/chills, fatigue, dizziness Neuro: No headache, vision change Cardiac: No chest pain, palpitations Respiratory: No cough, wheeze, shortness of breath Gastrointestinal: abdominal pain, nausea/vomiting, diarrhea/constipation Genitourinary: No vulvar itching, dysuria, urinary frequency, intermenstrual vaginal bleeding, change in vaginal discharge MSK: No muscle/joint aches, rash Psych: No depression/anxiety Prior to Admission medications Medication Sig Start Date End Date Taking? Authorizing Provider amoxicillin-clavulanate (Augmentin) 500-125 mg Tablet Take 1 tablet by mouth 2 times daily. 02/07/21 Yes Ilda Estrada MD levothyroxine (Synthroid) 88 mcg Tablet Take 1 tablet by mouth daily. 12/31/20 Yes Dwayne Rivera, acetaminophen (Tylenol) 160 mg/5 mL Suspension Take 15 mg/kg/dose by mouth as needed for Fever. YesPROVIDER, HISTORICAL ibuprofen (ADVIL;MOTRIN) 100 mg/5 mL Suspension Take by mouth every 4 hours as needed for Fever. Yes PROVIDER, HISTORICAL triamcinolone acetonide (Kenalog) 0.1 % Paste Place 1 each onto teeth 2 times daily. Patient not taking: Reported on 03/07/2021 02/21/21 Roberth Lee MD triamcinolone (Kenalog) 0.1 % Cream Apply topically to itchy areas on the torso and extremities forup to 14 days per month. Avoid face, skin folds, and genitals. Patient not taking: Reported on 03/07/2021 02/21/21 Hermelindo Kearney PA nystatin (Mycostatin) 100,000 unit/mL Suspension Take 5 mLs by mouth 4 times daily. Patient not taking: Reported on 03/07/2021 02/07/21 Ilda Estrada MD tacrolimus (Protopic) 0.1 % Ointment Apply topically to affected areas on the face twice daily as needed. Patient not taking: Reported on 03/07/2021 01/03/21 Areli Davenport MD pimecrolimus (Elidel) 1 % Cream Apply topically to affected areas on the face twice daily as needed. Patient not taking: Reported on 03/07/2021 12/27/20 Areli Davenport MD hypromellose (SYSTANE GEL OPHT) Apply to eye 2 times daily. PROVIDER, HISTORICAL clotrimazole (LOTRIMIN) 1 % Cream Apply topically 2 times daily. 03/07/21 PROVIDER, HISTORICAL Allergies Allergen Reactions ??? Benzocaine Made pt tongue red and angry. Irritant reaction - allergy testing negative ??? Birch Other (See Comments) Birch pollen: wheezing and throat constriction Objective: Patient Vitals for the past 24 hrs: Temp Pulse Resp BP SpO2 03/07/21 1327 37.3 ??C (99.2 ??F) 75 20 109/86 99 % Physical Examination: Constitutional: Pleasant and conversant, appears well, ambulates easily to exam table, presents alone to visit. HENT: Normal hair pattern. Extra-occular movements intact. No scleral icterus. Wearing a mask. Neuro/Psychiatric: A&Ox3, appropriate affect Extremities: No lower extremity edema or erythema Gastrointestinal: Soft, nontender, nondistended, scaphoid ?? No rebound tenderness or guarding ?? No evidence of ventral or inguinal hernia Genitourinary: ?? External genitalia without lesions or abnormalities ?? Urethral meatus without lesions or abnormalities ?? Urethra without tenderness, masses ?? Vaginal epithelium pink and moist, Pediatric/slender long [place]ana speculum ?? Cervix without lesions, physiologic discharge, acutely anteverted uterus ?? No perianal lesions ?? Tight pelvic floor musculature ?? Pelvic support without obvious defects ?? Bimanual: No CMT; small, mobile, sharply anteverted uterus without masses or tenderness; no adnexal masses or tenderness Assessment/Plan: 50 y.o. G0 with a history of tongue cancer with incidental [id number] 2.3 cm adnexal mass seen onPET/CT. Recommended transvaginal ultrasound evaluation of adnexal mass as this is the best way to evaluate pelvic structures. Will plan to follow up after ultrasound performed. Essence Gant MD, PGY-3 03/07/2021 1:39 PM * Giulia Pina MD - 03/07/2021 1:40 PM EST The case was discussed at the time of the visit. The assessment and plan were formulated in discussion with me and I agree with them as documented. I have reviewed the history, physical exam, assessment and plan with Dr. Gant. Giulia Pina MD documented in this encounter Plan of Treatment Not on file documented as of this encounter Visit Diagnoses Diagnosis Adnexal cyst Other specified symptom associated with female genital organs documented in this encounter Care Teams Scientific Software Engineer Relationship Specialty Start Date End Date Marck Brody DO [address] [place] [address] PCP - General 02/08/10 10/12/21 documented as of this encounter
--- OUTSIDE RECORDS SUMMARY | 2023-12-08 20:02 | XMS_ITS | Encounter Summary ---
Author Organization [facility] [place] [address] Care Team Providers Care Acting Instructor Name Role Phone Marck Brody DO Primary Care Provider [phone] Encounter Details Date Type Department Care Team (Late st Contact Info) Description 10/04/2020 Telephone [place] [phone] Juanita Walters RN Social History Tobacco Use [...] encounter Miscellaneous Notes * Telephone Encounter - Juanita Walters RN - 10/04/2020 8:57 AM EDT Patient's call returned. Patient states since starting the antibx, the drainage is better. I can'tdouble up because they won't let me refill the antibiotics, though. My mouth is uncomfortable, I'm having sensitivity with certain foods. I wonder if it's thrush, but I don't see any white patches. Inormally have skin issues, but I'm extremely itchy today. After discussion with Dr. Lee, he recommends nystatin x2 weeks, and if better, to continue x1 more week. He also recommends stopping antibx to see if the the itching gets better. Dr. Lee will see patient in clinic, if able, to today. Patient called and made aware and will check in to see if Dr. Lee can fit her in after her eye appointment today. documented in this encounter Plan of Treatment Not on file documented as of this encounter Visit Diagnoses Not on filedocumented in this encounter Care Teams Acting Instructor Relationship Specialty Start Date End Date Marck Brody DO [address] [place] [address] PCP - General 02/08/10 10/12/21 documented as of this encounter
--- OUTSIDE RECORDS SUMMARY | 2023-12-08 20:02 | XMS_ITS | Encounter Summary ---
Author Organization [facility] [place] [address] Care Team Providers Care Marketing And Communications Officer Name Role Phone Marck Brody DO Primary Care Provider Reason for Visit * Reason Onset Date Comments Bumped Appointment 09/16/2020 Encounter Details Date Type Department Care Team (Late st Contact Info) Description 09/16/2020 [place] [phone] Hattie Braun OD [facility] [place] [address] Bumped Appointment Social History Tobacco Use Types Packs/Day Years [...] encounter Miscellaneous Notes * Telephone Encounter - Ashanti Webster - 09/16/2020 12:01 PM EDTSummary: [facility] ALICE Braun to 10/04/20 Spoke w pt to [facility] 09/30/20 DOMINIK Braun appt for [facility] to 10/04/20. documented in this encounter Plan of Treatment Not on file documented as of this encounter Visit Diagnoses Not on filedocumented in this encounter Care Teams Marketing And Communications Officer Relationship Specialty Start Date End Date Marck Brody DO [address] [place] [address] PCP - General 02/08/10 10/12/21 documented as of this encounter
--- OUTSIDE RECORDS SUMMARY | 2023-12-08 20:02 | XMS_ITS | Encounter Summary ---
Author Organization [facility] [place] [address] Care Team Providers Care Mine Motor Operator Name Role Phone Marck Brody DO Primary Care Provider [phone] Encounter Details Date Type Department Care Team (Late st Contact Info) Description 07/02/2020 Telephone [place] [phone] Stephanie Pelayo RN Social History Tobacco Use Types Packs/Day [...] encounter Miscellaneous Notes * Telephone Encounter - Ilda Estrada MD - 07/02/2020 3:09 PM EDT Called and talked to patient. She denies fevers, chills or ongoing discharge. She has noticed a slight increase in discomfort andswelling along her R mandible, that improves with eating. She restarted the antibiotics which appears to be helping. She otherwise has been doing well. I refilled her prescription for penicillin to last until her follow-up appointment. I also counseled her that if she has any worsening symptoms, fevers, or drainage, to call our office or [facility] after hours to reach the resident team to discuss the plan then. * Telephone Encounter - Stephanie Pelaoy RN - 07/02/2020 1:16 PM EDT Patient called to report some concerns. She states that starting last weekend she began having increased discomfort in her right lower jaw as well as her chin area where her abscess is located. She states that this has worsened over the course of the week. She has been using children's ibuprofen and an ice pack to help alleviate this, it is helping some. She has some concern that there is an abscess in the lower jaw, around her right back molar. She had stopped the antibiotics she was prescribed at her last visit as she thought she had thrush. She has re-started this as of today hoping that it might help alleviate some discomfort by managing any bacterial infection that may be contributing to these symptoms. The pain in the jaw actually feels better when she is eating and she mentions that she does have a prosthetic set of lower teeth that has been present since April, this is not a denture. Patient is wondering if there are any suggestions as to what she could do to help with these symptoms between now and when she sees Dr Lee on . 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
--- OUTSIDE RECORDS SUMMARY | 2023-12-08 20:02 | XMS_ITS | Encounter Summary ---
Author Organization [facility] Address [facility] [place] [address] Care Team Providers Care Bakery Team Member Name Role Phone Marck Brody DO Primary Care Provider [phone] Reason for Referral * Consultation (Routine) - Closed Specialty Diagnoses / Procedures Referred By Contgumaro cuevas Referred To Contact Ophthalmology Diagnoses Decreased visual acuity Cuba Mcdonald Jr., MD [facility] [place] [address] Hattie Braun OD [facility] [place] [address] Referral ID Status Reason Start Date Expiration Date V isits Requested Visits Authorized [id number] Closed Consult, Test & Treat 07/23/2020 07/23/2021 1 1 Encounter Details Date Type Department Care Team (Late st Contact Info) Description 07/23/2020 Telephone [facility] [place] [address] Cuba Mcdonald Jr., MD [facility] [place] [id number] Social History Tobacco Use Types Packs/Day Years [...] encounter Miscellaneous Notes * Telephone Encounter - Cuba Mcdonald Jr., MD - 07/23/2020 5:33 PM EDT Called to talk with Ms. Hollis about visual problems she has been experiencing. She had a significant change in refraction during her hyperbaric treatments (around -2.0 diopters bilaterally). She finished treatment in Nov 2019. Since then she has been continuing to have problems with her vision. Recently, she noted that she received new glasses which provided good vision. But, she notes that through the day, her vision can fluctuate and become blurry. She noted that on occasion, blinking canrestore sharpness. She has noted no eye pain, floaters, curtains in vision, double vision, light flashes, or troubles with color vision. Hyperbaric oxygen treatments can produce a myopic shift, but fluctuating vision, particularly this far out from her treatments, does not seem to be hyperbaric related. From her description, the symptoms may be from a film or dryness on the cornea. Recommended that she try saline eye drops at those time when she has a change in vision. Also, she would like a referral to an blender laborer here at [facility], which seems like a good plan. Will put in for a referral to ophthalmology. documented in this encounter Plan of Treatment Scheduled Referrals Name Type Priority Associated Diagnoses Order Schedule Referral to Ophthalmology Outpatient Referral Routine Decreased visual acuity Ordered: 07/23/2020 documented as of this encounter Visit Diagnoses Diagnosis Decreased visual acuity Unspecified visual loss documented in this encounter Care Teams Bakery Team Member Relationship Specialty Start Date End Date Marck Brody DO [address] [place] [address] PCP - General 02/08/10 10/12/21 documented as of this encounter
--- OUTSIDE RECORDS SUMMARY | 2023-12-08 20:02 | XMS_ITS | Encounter Summary ---
Author Organization [facility] [place] [address] Care Team Providers Care Crepe Sole Wire Brusher Name Role Phone Marck Brody DO Primary Care Provider Encounter Details Date Type Department Care Team (Late st Contact Info) Description 07/04/2021 Telephone Obstetrics [place] [address] Alicia Álvarez, RN Social History Tobacco Use Types Packs/Day [...] Miscellaneous Notes * Telephone Encounter - Alicia Álvarez RN - 07/04/2021 1:33 PM EDT Calling Theresa Hollis to fill out MRI Screening Forms for MRI to be completed at [facility]. Called [facility] at [phone] to alert them of insurance decision and get a fax number to send MRI screener and insurance decision to. Left a message on their voicemail with this information and requested a call back. documented in this encounter Plan of Treatment Not on file documented as of this encounter Visit Diagnoses Not on filedocumented in this encounter Care Teams Crepe Sole Wire Brusher Relationship Specialty Start Date End Date Marck Brody DO [address] [place] [address] PCP - General 02/08/10 10/12/21 documented as of this encounter
--- OUTSIDE RECORDS SUMMARY | 2023-12-08 20:02 | XMS_ITS | Encounter Summary ---
Author Organization [facility] [place] [address] Care Team Providers Care Furniture Removalist Name Role Phone Marck Brody DO Primary Care Provider Reason for Visit * Reason Comments Follow-up Dicussion on next st eps Encounter Details Date Type Department Care Team (Late st Contact Info) Description 07/08/2020 8:30 AM EDT Office Visit [place] [phone] Roberth Little MD [facility] [place] [address] H/O tongue cancer; Cervical adenopathy Social History Tobacco Use Types Packs/Day Years [...] - Inhaled Oxygen Concentration - - Weight 46.3 kg (102 lb) 07/08/2020 8:18 AM EDT Height 157.5 cm (5' 2) 07/08/2020 8:18 AM EDT Body Mass Index 18.66 07/08/2020 8:18 AM EDT documented in this encounter Progress Notes * Roberth Little MD - 07/08/2020 8:30 AM EDT [facility] OT[facility] HEAD AND NECK TUMOR CLINIC FOLLOW UP NOTE Theresa Hollis is a 50 y.o. female followed for: Primary site: Left lateral tongue Stage: [id number] Surgery(ies): 10/31/06 - Hemiglossectomy, left neck dissection 1-5, skin graft, allograft Radiation: TREATMENT STARTED: 11/28/06 TREATMENT COMPLETED: 01/14/07 TREATMENT: The total maximum dose was 6600 cGy in 33 fractions. Volume reductions were instituted at 5400 cGy in 30 fractions &??6000 cGy in 30 fractions. Chemotherapy: Concurrent cisplatin?? New issues since last visit: She bumped her chin last week and developed significant swelling. Was started on augmentin and swelling has improved considerably. She is having some drainage from the chin but this is improved as well. Level II node has not changed PROBLEM LIST Patient Active Problem List Diagnosis Code ??? Hypothyroidism (acquired) E03.9 ??? Tongue cancer C02.9 ??? Tinnitus H93.19 ??? History of tongue cancer Z85.810 ??? Radiation injury T66.XXXA ??? DIFFICULT AIRWAY T88.4XXA ??? Periodontal disease K05.6 ??? Depressive disorder F32.9 ??? 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 Pathological fracture of mandible with routine healing M84.48XD PAST MEDICAL HISTORY Past Medical History: Diagnosis Date ??? Allergic rhinitis ??? Cancer of head, face, and neck ??? Hypothyroidism SOCIAL HISTORY Social History Tobacco Use ??? Smoking status: Never Smoker ??? Smokeless tobacco: Never Used Substance Use Topics ??? Alcohol use: Yes Comment: seldom, 4 drinks per year MEDICATIONS Current Outpatient Medications on File Prior to Visit Medication Sig Dispense Refill ??? amoxicillin-clavulanate (Augmentin) 875-125 mg Tablet TAKE ONE TABLET BY MOUTH TWICE A DAY FOR 10 DAYS ??? penicillin v potassium (VEETID) 500 mg Tablet Take 1 tablet by mouth 3 times daily. (Patient not taking: Reported on 07/08/2020) 18 tablet 0 ??? mupirocin (BACTROBAN) 2 % Ointment Apply topically 3 times daily. 22 g 1 ??? nystatin (Mycostatin) 100,000 unit/mL Suspension Take 5 mLs by mouth 4 times daily. (Patient not taking: Reported on 06/14/2020) 60 mL 0 ??? clotrimazole (LOTRIMIN) 1 % Cream Apply topically 2 times daily. ??? ixrrxbcj-khjdwsyvdj-strcwcdkc (NEOSPORIN) 3.5mg-400 unit- 5,000 unit/gram Ointment Apply 1 eachtopically. ??? vitamin E (vitamin E) 400 unit Capsule Take 400 Units by mouth daily. Take daily while receiving hyperbaric treatments ??? acetaminophen (Tylenol) 160 mg/5 mL Suspension Take 15 mg/kg/dose by mouth as needed for Fever. ??? levothyroxine (Synthroid) 88 mcg Tablet Take 100 mcg by mouth daily. ??? ibuprofen (ADVIL;MOTRIN) 100 mg/5 mL Suspension Take by mouth every 4 hours as needed for Fever. No current facility-administered medications on file prior to visit. ALLERGIES Allergies Allergen Reactions ??? Benzocaine Made pt tongue red and angry. Irritant reaction - allergy testing negative ??? Birch Other (See Comments) Birch pollen: wheezing and throat constriction ROS Pertinent positive findings discussed above. No other findings on review of constitutional visual, cardiovascular, respiratory, gastrointestinal, genitourinary, musculoskeletal, dermatologic, neurological, psychiatric, endocrine, hematologic or immunologic systems. PHYSICAL EXAMINATION Wt Readings from Last 3 Encounters: 07/08/20 46.3 kg (102 lb) 06/14/20 43.1 kg (95 lb) 05/03/20 43.4 kg (95 lb 9.6 oz) General: Well developed, no distress Head/face: Normocephalic, atraumatic Oral cavity: S/p left partial glossectomy with no recurrence. Oral cavity appears to be healing as expected. Oropharynx: Normal pharynx. IDL with normal BOT and epiglottis. Neck: 1 cm level II node, right side. Unchanged. Resp: Post glossectomy voice with wet speech. No stridor. Normal respirations. Skin: Normal skin survey of the head and neck. MSK: No trismus, normal neck range of motion Neuro: AxOx3; CN II-XII is grossly intact Psych: Normal mood and affect. Responds appropriately to questions. PROCEDURES Procedure Fine needle aspirate Indications adenopathy Site Right level II Description Informed verbal consent obtained and time out performed. A 10 cc syringe with 22g needle was used for the aspiration. Submitted to cytology in cyto-preservative. Patient tolerated well without complications. Number of passes 2 Fluid aspirated? none REVIEW OF IMAGES None ASSESSMENT/RECOMMENDATIONS Will follow up on FNA results We discussed debridement of the bone under her chin. Allow to heal by secondary intention. May require a soft tissue flap. Will discuss with Dr. Ng as well. Likely will take cultures of the bone and if we get a pathogen, rn long term care antibioitcs. Another option is to place on longer term antibiotics with good bone penetration such as levaquin. I appreciate the opportunity to be involved in Ms. Hollis's care. ROBERTH LITTLE MD 07/08/2020 documented in this encounter Plan of Treatment Not on file documented as of this encounter Procedures Procedure Name Priority Date/Time Associated Diagnosis Comments CYTOPATHOLOGY NON-GYNECOLOGICAL Routine 07/08/2020 10:05 AM EDT H/O tongue cancer Cervical adenopathy NON-SLUDGE CONTROL OPERATOR FINAL REPORT Routine 07/08/2020 9:30 AM EDT documented in this encounter Results * Cytopathology Non-Gynecological (07/08/2020 10:05 AM EDT) AP Specimen 07/08/2020 10:0 5 AM EDT 07/08/2020 10:05 AM EDT Narrative [facility] - 07/08/2020 10:05 AM EDT Specimen requisition ordered. ??Separate Pathology report to follow Roberth Little MD PATHOLOGY/CYTOLOGY ORDERABLES [facility] [place] [address] * Non-Manager Photo Final Report (07/08/2020 9:30 AM EDT) Diagnosis Discussion [id number] ? Location: The signing pathologist has (i) examined the relevant preparation(s) for the specimen(s) and (ii) rendered or confirmed the diagnosis(es). . ? Non-Manager Photo Final DIAGNOSIS See Discussion Electronically signed by: ?Estuardo Crane MD Verified: ??07/11/2020 17:39 ??Cytopathologis t Performed at: ??-[facility] Dept. of Pathology, [place], [place] DISCUSSION Lymph node: right upper neck (FNA) - Lymphoid cells present; compatible with lymph node sampling. Negative for metastatic carcinoma. (Cell block was examined.) CLINICAL INFORMATION Specimen Source : Lymph node: right upper neck (FNA) Pertinent Clinical Data and Significant Therapy: History of tongue cancer s/p resection and chemoradiation. New level II right lymph node. Clinical Impression : Reactive vs metastasis. Pertinent Radiologic Findings ??: (not provided) Gross Description: Received ??in CytoLyt approximately 30 mL total volume of ?? clear, colorless fluid. Total Preparation: Liquid-Based Prep 1; Cell Block 1. 07/11/2020 5:39 PM EDT [facility] LYMPH NODE SPECIMEN / Unknown 07/08/2020 9:30 AM EDT 07/08/2020 9:30 AM EDT Roberth Little MD PATHOLOGY/CYTOLOGY ORDERABLES [facility] [place] [address] documented in this encounter Visit Diagnoses Diagnosis H/O tongue cancer Personal history of malignant neoplasm of tongue Cervical adenopathy Enlargement of lymph nodes documented in this encounter Care Teams Furniture Removalist Relationship Specialty Start Date End Date Marck Brody DO [address] [facility] [place] [address] PCP - General 02/08/10 10/12/21 documented as of this encounter
--- OUTSIDE RECORDS SUMMARY | 2023-12-08 20:02 | XMS_ITS | Encounter Summary ---
Author Organization [facility] [place] [address] Care Team Providers Care Plug And Mold Finisher Name Role Phone Marck Brody DO Primary Care Provider Reason for Visit * Reason Onset Date Comments Medication Refill 08/16/2021 Encounter Details Date Type Department Care Team (Late st Contact Info) Description 08/16/2021 Refill [place] [phone] Ilda Estrada MD [facility] [place] [address] Osteoradionecrosis of jaw Social History Tobacco Use [...] jaws documented in this encounter Care Teams Plug And Mold Finisher Relationship Specialty Start Date End Date Marck Brody DO [address] [place] [address] PCP - General 02/08/10 10/12/21 documented as of this encounter
--- OUTSIDE RECORDS SUMMARY | 2023-12-08 20:02 | XMS_ITS | Encounter Summary ---
[place] [address] Care Team Providers Care Application Security Engineer Name Role Phone Marck Brody DO Primary Care Provider Encounter Details Date Type Department Care Team (Late st Contact Info) Description 11/05/2020 Orders Only [place] [phone] Octavia Abreu RN Thrush (Primary Dx); Osteoradionecrosis of jaw Social History Tobacco Use [...] as of this encounter Visit Diagnoses Diagnosis Thrush- Primary Candidiasis of mouth Osteoradionecrosis of jaw Other specified disease of the jaws documented in this encounter Care Teams Application Security Engineer Relationship Specialty Start Date End Date Marck Brody DO [address] [place] [address] PCP - General 02/08/10 10/12/21 documented as of this encounter
--- OUTSIDE RECORDS SUMMARY | 2023-12-08 20:02 | XMS_ITS | Encounter Summary ---
Author Organization [facility] Address [facility] [place] [address] Care Team Providers Care Rn Complex Care Name Role Phone Marck Brody DO Primary Care Provider Encounter Details Date Type Department Care Team (Late st Contact Info) Description 07/15/2021 11:20 AM EDT Ancillary Procedure Radiology Library at [facility] [place] [phone] Marck Brody DO [address] [place], [place] [address] Social History Tobacco Use Types Packs/Day Years [...] Procedure Name Priority Date/Time Associated Diagnosis Comments FILM LIBRARY STORAGE ONLY MR PELVIS Routine 07/15/2021 11:16 AM EDT documented in this encounter Results * Film Library- Storage Only MR Pelvis (07/15/2021 11:16 AM EDT) Narrative [facility] - 07/15/2021 11:16 AM EDT This exam is auto-finalizing. It's purpose is for storage only. Marck Brody DO IMG FILM LIBRARY ORD ERABLES [place] documented in this encounter Visit Diagnoses Not on filedocumented in this encounter Care Teams Rn Complex Care Relationship Specialty Start Date End Date Marck Brody DO [address] [place] [address] PCP - General 02/08/10 10/12/21 documented as of this encounter
--- OUTSIDE RECORDS SUMMARY | 2023-12-08 20:02 | XMS_ITS | Encounter Summary ---
[place] [address] Care Team Providers Care Home School Coordinator Name Role Phone Marck Brody DO Primary Care Provider [phone] Encounter Details Date Type Department Care Team (Late st Contact Info) Description 07/13/2020 Telephone [place] [phone] Juanita Walters RN Social History Tobacco Use [...] Telephone Encounter - Juanita Walters RN - 07/13/2020 10:58 AM EDT Patient's call returned. Patient made aware of message from Dr. Lee. Patient voices understanding and acceptance of this information and will call back if any further questions or concerns. documented in this encounter Plan of Treatment Not on file documented as of this encounter Visit Diagnoses Not on filedocumented in this encounter Care Teams Home School Coordinator Relationship Specialty Start Date End Date Marck Brody DO [address] [place] [address] PCP - General 02/08/10 10/12/21 documented as of this encounter
--- OUTSIDE RECORDS SUMMARY | 2023-12-08 20:02 | XMS_ITS | Encounter Summary ---
Author Organization [facility] Address [facility] [place] [address] Care Team Providers Care Lead Software Development Engineer Name Role Phone Marck Brody DO Primary Care Provider [phone] Reason for Visit * Reason Onset Date Comments Medication Refill 12/31/2020 Encounter Details Date Type Department Care Team (Late st Contact Info) Description 12/31/2020 Refill Dermatology at [facility] [address] [place] [phone] Areli Davenport MD [facility] [address] [address] Social History Tobacco Use Types Packs/Day Years [...] encounter Miscellaneous Notes * Telephone Encounter - Lorrie Preciado LPN - 12/31/2020 10:04 AM EDT Patients insurance would not cover Elidel but would cover tacrolimus, New order pended to Dr. Davenportfor review and approval, documented in this encounter Plan of Treatment Not on file documented as of this encounter Visit Diagnoses Not on filedocumented in this encounter Care Teams Lead Software Development Engineer Relationship Specialty Start Date End Date Marck Brody DO [address] [place] [address] PCP - General 02/08/10 10/12/21 documented as of this encounter
--- OUTSIDE RECORDS SUMMARY | 2023-12-08 20:02 | XMS_ITS | Encounter Summary ---
Author Organization [facility] Address [facility] [place] [address] Care Team Providers Care Epic Beacon Specialists Name Role Phone Marck Brody DO Primary Care Provider Encounter Details Date Type Department Care Team (Late st Contact Info) Description 07/19/2021 Orders Only Obstetrics [place] [address] [facility] [place] [address] Adnexal cyst Social History Tobacco Use Types [...] documented as of this encounter Results * Request for 2nd read MR Pelvis (07/19/2021 3:18 AM EDT) Anatomical Region Laterality Modality SO Impressions 07/19/2021 8:53 AM EDT Large nabothian cyst containing dependent proteinaceous/hemorrhagic material corresponds to the finding on prior PET CT and pelvic ultrasound. Otherwise normal appearance of the uterus and ovaries. I have personally reviewed the image(s) and the resident's interpretation and agree with the findings, Abril Sethi MD at 07/19/2021 8:53 AM Thank you for letting us participate in the care of this patient. ??If you are a health care provider and have any questions regarding this report, please contact the number below. ??For patients who have questions please contact the health post acute care nurse practitioner that requested your imaging first. ? Electronically signed by: Abril Sethi MD, [facility] ([phone]), at 07/19/2021 8:53 AM Narrative 07/19/2021 8:53 AM EDT EXAMINATION: REQUEST FOR 2ND READ MR PELVIS CLINICAL HISTORY: MR Pelvic performed to evaluate adnexal vs uterine mass seen on PET CT, unable to tolerate vaginal u/s. H/o SCC of tongue; Sending Institution [facility]; Date of exam [id number]; I believe a reinterpretation of this exam may alter care of Patient. Yes; MR Pelvic performed to evaluate adnexal vs uterine mass seen on PET CT, unable to tolerate vaginal u/s. 51 yof with H/o SCC TECHNIQUE: Multisequence, multiplanar noncontrast MRI of the pelvis was performed prior to and following the intravenous administration of Dotarem. The study was performed at an outside institution and images were submitted for reinterpretation. COMPARISON: Pelvic ultrasound 04/08/2021. PET scan 02/07/2021. FINDINGS: Uterus: Anteverted measuring 6.6 x 3.2 x 4.5cm Myometrium: Normal. Junctional zone: Normal. Endometrium: Normal. Cervix: ??2.9 cm well-circumscribed, round predominantly T2 hyperintense/T1 hypointense nonenhancing lesion to the right of midline within the cervical region demonstrates some dependently layering T2 hypointense/T1 hyperintense material. This is favored to represent a large nabothian cyst containing proteinaceous/hemorrhagic material, corresponding to the finding seen on prior PET/CT and pelvic ultrasound. Multiple tiny nabothian cysts. Right ovary: Normal. Left ovary: Normal. Free fluid: Trace physiologic free fluid within the pelvis. Lymph nodes: No lymphadenopathy. Bowel: Nondilated, no inflammatory changes. Osseous structures: No marrow signal abnormality. Procedure Note Abril Sethi MD - 07/19/2021 EXAMINATION: REQUEST FOR 2ND READ MR PELVIS CLINICAL HISTORY: MR Pelvic performed to evaluate adnexal vs uterine massseen on PET CT, unable to tolerate vaginal u/s. H/o SCC of tongue; Sending Institution [facility]; Date of exam [id number]; Ibelieve a reinterpretation of this exam may alter care of Patient. Yes; MRPelvic performed to evaluate adnexal vs uterine mass seen on PET CT, unable totolerate vaginal u/s. 51 yof with H/o SCC TECHNIQUE: Multisequence, multiplanar noncontrast MRI of the pelvis was performed prior to and following the intravenous administration ofDotarem. The study was performed at an outside institution and images were submittedfor reinterpretation. COMPARISON: Pelvic ultrasound 04/08/2021. PET scan 02/07/2021. FINDINGS: Uterus: Anteverted measuring 6.6 x 3.2 x 4.5cm Myometrium: Normal. Junctional zone: Normal. Endometrium: Normal. Cervix: 2.9 cm well-circumscribed, round predominantly R6sbvdkmglgzru/T1 hypointense nonenhancing lesion to the right of midline within thecervical region demonstrates some dependently layering T2 hypointense/Q9nbtnwggmvffi material. This is favored to represent a large nabothian cyst containing proteinaceous/hemorrhagic material, corresponding to the finding seen onprior PET/CT and pelvic ultrasound. Multiple tiny nabothian cysts. Right ovary: Normal. Left ovary: Normal. Free fluid: Trace physiologic free fluid within the pelvis. Lymph nodes: No lymphadenopathy. Bowel: Nondilated, no inflammatory changes. Osseous structures: No marrow signal abnormality. IMPRESSION Large nabothian cyst containing dependent proteinaceous/hemorrhagicmaterial corresponds to the finding on prior PET CT and pelvic ultrasound.Otherwise normal appearance of the uterus and ovaries. I have personally reviewed the image(s) and the resident's interpretationand agree with the findings, Abril Sethi MD at 07/19/2021 8:53 AM Thank you for letting us participate in the care of this patient. If youare a health care provider and have any questions regarding this report,please contact the number below. For patients who have questions please contactthe health post acute care nurse practitioner that requested your imaging first. Electronically signed by: Abril Sethi MD, [facility]([phone]), at 07/19/2021 8:53 AM Glenna Bullock MD IMG OUTSIDE INTERPRE TATION ORDERABLES documented in this encounter Visit Diagnoses Diagnosis Adnexal cyst Other specified symptom associated with female genital organs Adnexal cyst Other specified symptom associated with female genital organs documented in this encounter Care Teams Epic Beacon Specialists Relationship Specialty Start Date End Date Marck Brody DO [address] [place] [address] PCP - General 02/08/10 10/12/21 documented as of this encounter
--- OUTSIDE RECORDS SUMMARY | 2023-12-08 20:02 | XMS_ITS | Encounter Summary ---
Author Organization [facility] [place] [address] Care Team Providers Care Filter Pulp Washer Name Role Phone Marck Brody DO Primary Care Provider [phone] Reason for Visit * Reason Comments Eye Exam Decreased Visual Acuity * Consultation (Routine) - Closed Specialty Diagnoses / Procedures Referred By Shirley cuevas Referred To Contact Ophthalmology Diagnoses Decreased visual acuity Cuba Mcdonald Jr., MD [facility] [place] [address] Hattie Braun, GALEN [facility] [place] [address] Referral ID Status Reason Start Date Expiration Date V isits Requested Visits Authorized [id number] Closed Consult, Test & Treat 07/23/2020 07/23/2021 1 1 Encounter Details Date Type Department Care Team (Late st Contact Info) Description 10/04/2020 9:00 AM EDT Office [place] [address] Hattie Braun, GALEN [facility] [place] [address] Early cataracts, bilateral; Blepharitis of both upper and lower eyelid; Astigmatism of both eyes with presbyopia Social History Tobacco Use Types Packs/Day Years [...] this encounter Patient Instructions * Patient Instructions* Hattie Braun, GALEN - 10/04/2020 9:00 AM EDT BLEPHARITIS As we discussed, you have dryness of your eyes/eyelids that is chronic! Warm compresses with a clean washcloth followed by lid scrubs with either Lid Care or similar pre-medicate guaze pads or justdilute Dane's Baby Shampoo should help. As this is a chronic condition that took a long time to get, it won't go away overnight. Keep up with the treatment daily!! Blepharitis is a common condition where the glands of the eyelids become blocked or inflamed. Theseglands secrete oils that are necessary for maintaining a healthy tear film over the eye. If the glands become clogged and inflamed, your eyes may feel dry, irritated, scratchy or burning. Other symptoms are redness, stickiness, grittiness, tearing and a ???film?? over the vision. If the condition is not treated, you may develop styes, chalazions (hard bumps on the lids) or lid scarring and loss of eyelashes. Blepharitis is often found in people that have rosacea which is a skin condition that consists of redness of the cheeks, forehead and nose. Fortunately, blepharitis is a very treatable condition. The mainstay of treatment is good daily cleansing of the eyelids/lashes and warm compresses. Here are the instructions: - Wash your hands and fingertips well. - Use a clean wash cloth soaked in hot (but not burning) water. Hold the cloth gently against your closed eyes and reheat the cloth every 2-3 minutes. Massage above the eyelids with your eyes closed. - After 10 minutes of application, with your eyes closed, take your fingers and gently rub across the lashes, freeing up any accumulated debris. Do this for 15- 30 seconds. Avoid touching the eyeball directly. - Rinse the lashes with water and pat dry. - You should do the above cleaning at least twice a day. ANOTHER OPTION FOR WARM COMPRESSES - PURCHASE links below: https://[employer]/collections/eye-care/products/nbblhu-muqpz-txqb-eye-comp ress. https://[employer]/eye-care/products/bmjxpp-ulnvcrze-bbhgkt-car y-bot-uhtkm-cpu-oalf-fiiuiyz - can order such items individually. https://[employer]/sszaq-leas-pxx-compress CM Moist Heat Eye Compress opens oil glands and allows natural oils to flow back into the eye relieving discomfort from aging, contact lenses, use of digital devices and more. The easy-to-use compress delivers an effective moist heat treatment. Simply microwave for 20-25 seconds and apply for 10 minutes or as prescribed by your doctor. The compress helps stabilize the tear film, improves oil gland function and slows tear evaporation.Properly hydrated and lubricated eyes can expel bacteria and debris more efficiently so your eyes will feel refreshed and rejuvenated. Safe for frequent use. Self-hydrating - no need to add water. Anti-bacterial and non-allergenic. Washable and reusable. optimum conformance and comfort. Unique pod design provides improved fit and performance. Also available in a single eye model. The following are other things you can do for blepharitis. All products are sold over the counter. Cleaning EYELASHES with dilute Dane's Baby Shampoo should help. Consider a dietary capsule supplement of [place] 3 Fatty Acids Please take 2000- 3000 mg of omega 3 fatty acids per day. These products can be bought in a [employer] store or there is a capsule called ???TheraTears Nutrition?? containing these ingredients. (If you have medical conditions, you shouldcheck with your primary care physician to make sure it is safe for you to use this product). For dry eye, use AM and PM PRESERVATIVE FREE drops noted below 4 to 6 times per day. Do NOT use ???Visine or anything that says ???gets the red out?? . AM Drops (Use 4-6 times per day) - DAYTIME DROPS TheraTears Refresh GenTeal Systane PM Drops (Use once at night in both eyes before you go to bed) - NIGHT-TIME DROPS Refresh PM Systane Gel GenTeal Gel Usually your eye comfort will improve after 4-6 weeks of treatment. If not, your eye doctor will discuss the situation with you. This is a chronic condition that took a long time to get, it won't go away overnight. Keep up with the treatment daily! documented in this encounter Progress Notes * Hattie Braun, OD - 10/04/2020 9:00 AM EDT Encounter Diagnoses Name Primary? Early cataracts, bilateral ??? Blepharitis of both upper and lower eyelid ??? Astigmatism of both eyes with presbyopia Theresa Hollis is a 50 y.o. with the following ophthalmic problems: Assessment and Plan: Cataracts OU - Monitor for now, sooner with changes in vision. Anterior & MGD-related Posterior Blepharitis OU contributing to Dry Eye OU - Advised lid hygiene with dilute baby shampoo or OcuSoft wipes & warm compress BID 5-10 min OUwith lid massage - Advised PF AT's Refresh, Systane or Thera Tears QID-PRN OU & Refesh PM michelle QHS OU. - Pt ed re chronicity of condition and need for continued lid maintenance. - RTC 3 months for NO DILATION, dry eye chk, w/ worsening sx. Refractive Error OU - Rx given today - Findings and concerns discussed with Theresa and she expressed understanding. -Upon Return RTC 3 months for NO DILATION, dry eye chk, w/ worsening sx. CEE in 1 year, sooner with changes in sx/vision. Eyeglass Final Rx Eyeglass Final Rx Sphere Cylinder [place] Dist VA Add Near VA Right -4.00 +1.75 180 20/20 +2.00 20/20 Left -3.75 +1.25 170 20/20 +2.00 20/20 Expiration Date: 10/05/2022 documented in this encounter Plan of Treatment Scheduled Referrals Name Type Priority Associated Diagnoses Order Schedule Referral to Ophthalmology Outpatient Referral Routine Decreased visual acuity Ordered: 07/23/2020 documented as of this encounter Visit Diagnoses Diagnosis Early cataracts, bilateral Unspecified cataract Blepharitis of both upper and lower eyelid Astigmatism of both eyes with presbyopia documented in this encounter Care Teams Filter Pulp Washer Relationship Specialty Start Date End Date Marck Brody DO [address] [place] [address] PCP - General 02/08/10 10/12/21 documented as of this encounter
--- OUTSIDE RECORDS SUMMARY | 2023-12-08 20:02 | XMS_ITS | Encounter Summary ---
Author Organization [place] [address] Care Team Providers Care Counter Clerk Tractor Parts Name Role Phone Marck Brody DO Primary Care Provider Encounter Details Date Type Department Care Team (Late st Contact Info) Description 12/31/2020 Orders [place] [address] Jason Rivera, [facility] [place] [address] Social History Tobacco Use Types Packs/Day Years [...] filedocumented in this encounter Care Teams Counter Clerk Tractor Parts Relationship Specialty Start Date End Date Marck Brody DO [address] [place], [place] [address] PCP - General 02/08/10 10/12/21 documented as of this encounter
--- OUTSIDE RECORDS SUMMARY | 2023-12-08 20:02 | XMS_ITS | Encounter Summary ---
Author Organization [facility] [place] [address] Care Team Providers Care Procedure Writer Name Role Phone Marck Brody DO Primary Care Provider Reason for Visit * Reason Onset Date Comments Medication Refill 04/29/2021 Encounter Details Date Type Department Care Team (Late st Contact Info) Description 04/29/2021 Refill [place] [phone] Roberth Lee MD [facility] [address] Thrush Social History Tobacco Use Types Packs/Day [...] mouth documented in this encounter Care Teams Procedure Writer Relationship Specialty Start Date End Date Marck Brody DO [address] [place] [address] PCP - General 02/08/10 10/12/21 documented as of this encounter
--- OUTSIDE RECORDS SUMMARY | 2023-12-08 20:02 | XMS_ITS | Encounter Summary ---
Author Organization [facility] [place] [address] Care Team Providers Care Eyeglass Frames Inspector Name Role Phone Marck Brody DO Primary Care Provider Reason for Visit * Reason Comments Other pain a bit better, c oncerned w/ open wound that isn't healing Encounter Details Date Type Department Care Team (Latest Contact Info) Description 05/03/2020 12:00 PM EST Office [place] [address] Roberth Little MD [facility] [place] [address] Osteonecrosis of mandible; Dental decay; H/O tongue cancer; Throat pain; Cervical adenopathy Social History Tobacco Use Types [...] - Inhaled Oxygen Concentration - - Weight 43.4 kg (95 lb 9.6 oz) 05/03/2020 11:47 A M EST Height 157.5 cm (5' 2) 05/03/2020 11:47 AM EST Body Mass Index 17.49 05/03/2020 11:47 AM EST documented in this encounter Progress Notes * Roberth Little MD - 05/03/2020 12:00 PM EST [facility] FOLLOW UP NOTE Theresa Hollis is a 49 y.o. female followed for: Primary site: Left lateral tongue Stage: [id number] Surgery(ies): 10/31/06 - Hemiglossectomy, left neck dissection 1-5, skin graft, allograft Radiation: TREATMENT STARTED: 11/28/06 TREATMENT COMPLETED: 01/14/07 TREATMENT: The total maximum dose was 6600 cGy in 33 fractions. Volume reductions were instituted at 5400 cGy in 30 fractions &??6000 cGy in 30 fractions. Chemotherapy: Concurrent cisplatin?? New issues since last visit: She developed sore throat, right level II adenopathy and increased drainage from her chin on the left. Was placed on PCN and mupirocin ointment 10 days ago and feels that throat swelling and drainagefrom chin have improved. Level II node is still present. PROBLEM LIST Patient Active Problem List Diagnosis [...] Dispense Refill ??? clotrimazole (LOTRIMIN) 1 % Cream Apply topically 2 times daily. ??? krfqxvdy-etbcnrqfje-kpdnwqgyj (NEOSPORIN) 3.5mg-400 unit- 5,000 unit/gram Ointment Apply [...] EXAMINATION Wt Readings from Last 3 Encounters: 05/03/20 43.4 kg (95 lb 9.6 oz) 03/22/20 43.1 kg (95 lb) 02/09/20 44.9 kg (99 lb) General: Well developed, no distress Head/face: Normocephalic, atraumatic Oral cavity: S/p multiple mandibular extractions. Left anterior extraction site with small area of exposed bone superiorly but I cannot appreciate any exposed bone in the extraction site itself and does not appear to communicate with area of drainage under the chin. S/p left partial glossectomy. Oropharynx: Normal oropharyngeal exam. Neck: 1 cm level II adenopathy, mobile, right side. Post treatment changes to the left neck. Small drainage site under the left chin. Resp: Post glossectomy speech, no stridor, normal respirations. Skin: Normal skin survey of the head and neck. MSK: No trismus, normal neck range of motion Neuro: AxOx3; CN II-XII is grossly intact Psych: Normal mood and affect. Responds appropriately to questions. PROCEDURES Procedure Flexible Fiberoptic Laryngoscopy Indication History of tongue cancer, sore throat Description Informed verbal consent obtained and time out performed. A flexible laryngoscope was used to evaluate bilateral nasal cavity, nasopharynx, oropharynx, hypopharynx and larynx. The examination was recorded on the TelePack Unit and uploaded to the [employer] Digital [employer]poser. Findings Nasal cavity NSD to the right Nasopharynx Normal Oropharynx Genet BOT and lateral pharynx with post treatment changes Larynx Left vocal cord paralysis with good closure, post treatment changes Hypopharynx Blunting of the pyriform sinus on the left, some pooling, post treatment changes REVIEW OF IMAGES Panorex from 04/07/2020 reviewed. Small area of cortical irregularity along left inferior mandible in area of drainage ASSESSMENT/RECOMMENDATIONS 1 - No evidence of recurrence or second primary 2 - No evidence of exposed bone but does have some drainage under the chin. There may be a fistula track or bony infection that I cannot identify in the office. Will continue her PCN x 2 weeks and recheck in 1 month. Also will need to follow up on the level II adenopathy on the right which is likely reactive but I want to make sure it resolves. Patient is agreeable with the plan. Follow up in 1 month. I appreciate the opportunity to be involved in Ms. Hollis's care. ROBERTH LITTLE MD 05/03/2020 documented in this encounter Plan of Treatment Not on file documented as of this encounter Visit Diagnoses Diagnosis Osteonecrosis of mandible Aseptic necrosis of other bone site Dental decay Unspecified dental caries H/O tongue cancer Personal history of malignant neoplasm of tongue Throat pain Cervical adenopathy Enlargement of lymph nodes documented in this encounter Care Teams Eyeglass Frames Inspector Relationship Specialty Start Date End Date Marck Brody DO [address] [place] [address] PCP - General 02/08/10 10/12/21 documented as of this encounter
--- OUTSIDE RECORDS SUMMARY | 2023-12-08 20:02 | XMS_ITS | Encounter Summary ---
Author Organization [facility] [place] [address] Care Team Providers Care Grizzly Worker Name Role Phone Marck Brody DO Primary Care Provider Encounter Details Date Type Department Care Team (Late st Contact Info) Description 06/03/2020 Orders Only [place] [phone] Maged Smith RN Osteoradionecrosis of jaw (Primary Dx) Social History Tobacco Use Types [...] this encounter Visit Diagnoses Diagnosis Osteoradionecrosis of jaw- Primary Other specified disease of the jaws documented in this encounter Care Teams Grizzly Worker Relationship Specialty Start Date End Date Marck Brody DO [address] [place] [address] PCP - General 02/08/10 10/12/21 documented as of this encounter
--- OUTSIDE RECORDS SUMMARY | 2023-12-08 20:02 | XMS_ITS | Encounter Summary ---
[place] [address] Care Team Providers Care Road Freight Brake Coupler Name Role Phone Marck Brody DO Primary Care Provider Encounter Details Date Type Department Care Team (Late st Contact Info) Description 09/30/2020 Telephone [place] [phone] Octavia Abreu RN Social History Tobacco Use Types Packs/Day [...] encounter Miscellaneous Notes * Telephone Encounter - Octavia Abreu RN - 09/30/2020 4:46 PM EDT Returned Theresa's phone call. She felt better and stopped taking her antibiotics and drainage began. She has begun to take her antibiotic again. I encouraged Theresa to continue the antibiotic. documented in this encounter Plan of Treatment Not on file documented as of this encounter Visit Diagnoses Not on filedocumented in this encounter Care Teams Road Freight Brake Coupler Relationship Specialty Start Date End Date Marck Brody DO [address] [place] [address] PCP - General 02/08/10 10/12/21 documented as of this encounter
--- OUTSIDE RECORDS SUMMARY | 2023-12-08 20:02 | XMS_ITS | Encounter Summary ---
Author Organization [facility] [place] [address] Care Team Providers Care Food Service Supervisor Name Role Phone Marck Brody DO Primary Care Provider [phone] Encounter Details Date Type Department Care Team (Late st Contact Info) Description 04/25/2021 Orders Only Obstetrics [place] [phone] Alicia Álvarez, RN Adnexal cyst Social History Tobacco Use Types [...] organs documented in this encounter Care Teams Food Service Supervisor Relationship Specialty Start Date End Date Marck Brody DO [address] [place] [address] PCP - General 02/08/10 10/12/21 documented as of this encounter
--- OUTSIDE RECORDS SUMMARY | 2023-12-08 20:02 | XMS_ITS | Encounter Summary ---
[place] [address] Care Team Providers Care Instrument Assembler Name Role Phone Marck Brody DO Primary Care Provider Encounter Details Date Type Department Care Team (Late st Contact Info) Description 11/24/2020 Orders [place] [phone] Octavia Abreu RN Thrush (Primary Dx) Social History Tobacco Use Types [...] Diagnoses Diagnosis Thrush- Primary Candidiasis of mouth documented in this encounter Care Teams Instrument Assembler Relationship Specialty Start Date End Date Marck Brody DO [address] [place] [address] PCP - General 02/08/10 10/12/21 documented as of this encounter
--- OUTSIDE RECORDS SUMMARY | 2023-12-08 20:02 | XMS_ITS | Encounter Summary ---
Author Organization [facility] [place] [address] Care Team Providers Care College Administrator Name Role Phone Marck Brody DO Primary Care Provider Encounter Details Date Type Department Care Team (Late st Contact Info) Description 04/08/2021 Telephone Obstetrics [place] [address] Essence Gant MD [facility] OBSTETRICS & [place] [address] Social History Tobacco Use Types Packs/Day Years [...] encounter Miscellaneous Notes * Telephone Encounter - Essence Gant - 04/08/2021 5:54 PM EST Called Theresa Hollis to discuss pelvic ultrasound today. She was unable to tolerate a vaginal exam. Luckily, her ovaries were visualized bilaterally and appeared normal (no clear evidence of what was described as adnexal mass on PET/CT). Unfortunately the images are someone limited due to transabdominal approach. Her uterus does appear to have some fluid or debris in it, which the radiologist couldn't rule out as an endometrial soft tissue mass of some time. She is perimenopausal, last period was approximately 4 months ago. She did have a small amount of cramping today, like a period. I discussed that the ultimate way to determine what is inside the uterine cavity would be pathologic sampling, but I will discuss with my attending to guide future recommendations for surveillance. Essence Gant MD, PGY-3 04/08/2021 5:59 PM documented in this encounter Plan of Treatment Not on file documented as of this encounter Visit Diagnoses Not on filedocumented in this encounter Care Teams College Administrator Relationship Specialty Start Date End Date Marck Brody DO [address] [place] [address] PCP - General 02/08/10 10/12/21 documented as of this encounter
--- OUTSIDE RECORDS SUMMARY | 2023-12-08 20:02 | XMS_ITS | Encounter Summary ---
Author Organization [facility] [place] [address] Care Team Providers Care Director Global Development Name Role Phone Marck Brody DO Primary Care Provider Reason for Visit * Diagnostic Test (Routine) - Closed Specialty Diagnoses / Procedures Referred By Shirley cuevas Referred To Contact Radiology Diagnoses Cervical adenopathy H/O tongue cancer Procedures NM PET CT Standard Plus Head and Neck NM Byrd PET CT Standard Plus Head and Neck NM PET CT Standard Plus Head and Neck Roberth Lee MD [facility] [place] [address] [place] [address] Referral ID Status Reason Start Date Expiration Date V isits Requested Visits Authorized [id number] Closed Specialty Service Requested 01/21/2021 03/21/2021 1 1 Encounter Details Date Type Department Care Team (Latest Contact Info) Description 02/07/2021 7:17 AM EST - 02/07/2021 11:59 PM EST Hospital En[place] [address] Roberth Lee MD [facility] [place] [address] Discharge Disposition: Home Social History Tobacco Use [...] hours as needed for Fever. levothyroxine (Synthroid) 75 mcg Tablet Take 1 tablet by mouth daily. 90 tablet 3 05/02/2021 06/26/2021 nystatin (Mycostatin) 100,000 unit/mL SuspensionIndications: Osteoradionecrosis of jaw Take 5 mLs by mouth 4 times daily. 60 mL 3 02/07/2021 07/22/2021 amoxicillin-clavulanat e (Augmentin) 500-125 mg TabletIndications:Oste oradionecrosis of jaw Take 1 tablet by mouth 2 times daily. 60 tablet 5 02/07/2021 08/16/2021 tacrolimus (Protopic) 0.1 % Ointment Apply topically to affected areas on the face twice daily as needed. 60 g 3 01/03/2021 08/18/2022 levothyroxine (Synthroid) 88 mcg Tablet Take 1 tablet by mouth daily. 90 tablet 3 12/31/2020 05/02/2021 triamcinolone (Kenalog) 0.1 % CreamIndications:Xeros is of skin,Eczema, unspecified type Apply topically to itchy areas on the torso and extremities for up to 14 days per month. Avoid face, skin folds, and genitals. 45 g 12/27/2020 02/21/2021 pimecrolimus (Elidel) 1 % CreamIndications:Xeros is of skin,Eczema, unspecified type Apply topically to affected areas on the face twice daily as needed. 30 g 1 12/27/2020 08/18/2022 triamcinolone acetonide (Kenalog) 0.1 % PasteIndications:Thrus h Place 1 each onto teeth 2 times daily. 5 g 12 11/05/2020 02/16/2021 hypromellose (SYSTANE GEL OPHT) Apply to eye 2 times daily. 08/18/2022 clotrimazole (LOTRIMIN) 1 % Cream Apply topically 2 times daily. 03/07/2021 acetaminophen (Tylenol) 160 mg/5 mL Suspension Take 15 mg/kg/dose by mouth as needed for Fever. 09/08/2022 documented as of this encounter Plan of Treatment Not on file documented as of this encounter Procedures Procedure Name Priority Date/Time Associated Diagnosis Comments NM PET CT STANDARD PLUS HEAD AND NECK Routine 02/07/2021 8:54 AM EST Cervical adenopathy H/O tongue cancer POCT GLUCOSE Routine 02/07/2021 7:29 AM EST documented in this encounter Results * POCT Glucose (02/07/2021 7:29 AM EST) Glucose, POC 87 65 - 199 mg/dL [facility] Comment: Supplemental ranges: <140 mg/dL before meals <180 mg/dL all other times of the day Blood 02/07/2021 7:29 AM EST 02/07/2021 7:29 AM EST Roberth Lee MD POINT OF CARE TEST ORDERABLES [facility] [place] [address] documented in this encounter Visit Diagnoses Not on filedocumented in this encounter Care Teams Director Global Development Relationship Specialty Start Date End Date Marck Brody DO [address] [place] [address] PCP - General 02/08/10 10/12/21 documented as of this encounter
--- OUTSIDE RECORDS SUMMARY | 2023-12-08 20:02 | XMS_ITS | Encounter Summary ---
[place] [address] Care Team Providers Care Core Laying Machine Operator Name Role Phone Marck Brody DO Primary Care Provider [phone] Encounter Details Date Type Department Care Team (Late st Contact Info) Description 11/02/2020 Orders [place] [phone] Octavia Abreu RN Thrush (Primary Dx) Social [...] mouth documented in this encounter Care Teams Core Laying Machine Operator Relationship Specialty Start Date End Date Marck Brody DO [address] [place] [address] PCP - General 02/08/10 10/12/21 documented as of this encounter
--- OUTSIDE RECORDS SUMMARY | 2023-12-08 20:02 | XMS_ITS | Encounter Summary ---
Author Organization [facility] [place] [address] Care Team Providers Care Chief Mechanical Engineer Name Role Phone Marck Brody DO Primary Care Provider [phone] Encounter Details Date Type Department Care Team (Latest Contact Info) Description 04/08/2021 1:12 PM EST - 04/08/2021 11:59 PM EST Hospital [place] [id number] Meche Hartman MD [facility] [place] [address] Adnexal cyst Discharge Disposition: Home Social History Tobacco Use [...] mouth daily. 90 tablet 3 05/02/2021 06/26/2021 fluocinolone and shower cap (Spalding-Smoothe/FS Scalp Oil) 0.01 % Oil Apply topically to scalp under shower cap nightly for up to 2 weeks for flares then 1-3 times weekly prn maintenance. 118 mL 3 03/23/2021 11/14/2022 ketoconazole (Nizoral) 2 % Cream Apply topically 2 times daily as needed. For rash on face and/or ears 30 g 3 03/23/2021 09/08/2022 triamcinolone acetonide (Kenalog) 0.1 % PasteIndications:Thrus h Place 1 each onto teeth 2 times daily. 5 g 12 02/21/2021 04/29/2021 triamcinolone (Kenalog) 0.1 % CreamIndications:Xeros is of skin,Eczema, unspecified type Apply topically to itchy areas on the torso and extremities for up to 14 days per month. Avoid face, skin folds, and genitals. 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 90 tablet 3 12/31/2020 05/02/2021 pimecrolimus (Elidel) 1 % CreamIndications:Xeros is of [...] Procedure Name Priority Date/Time Associated Diagnosis Comments US PELVIS COMPLETE Routine 04/08/2021 2: 34 PM EST Adnexal cyst documented in this encounter Results * US Pelvis Complete (04/08/2021 2:34 PM EST) Anatomical Region Laterality Modality Pelvis Ultrasound 04/08/2021 1:31 PM EST Impressions 04/08/2021 2:53 PM EST IMPRESSION: 1. Exam is limited by transabdominal approach, as patient is unable to tolerate transvaginal approach. The uterus is quite posterior, with bowel anterior to the uterus, and the fundus in the right adnexa. 2. Limited view of the uterus which demonstrates distention of the endometrium with anechoic fluid and contains a 2.2 cm soft tissue density within it. This may represent layering debris versus soft tissue mass. Distention and layering debris could be seen in the setting of cervical stenosis. Alternatively, this could represent polyp or endometrial mass. 3. The ovaries are seen bilaterally and within normal limits. No pelvic free fluid. Thank you for letting us participate in the care of this patient. If you are a health care provider and have any questions regarding this report, please contact the number above. For patients who have questions, please contact the health home care manager that requested your imaging first. ? Jennifer Amor, Staff Physician Electronically Signed Final Report ?? 04/08/2021 02:52 pm Narrative 04/08/2021 2:53 PM EST Gynecological Report ?(Signed Final 04/08/2021 02:52 pm) PATIENT INFO: ID #: ? [id number] ?: ??[birth year] (50 yrs)(F) Name: ? THERESA HENLEY ? Visit Date: 04/08/2021 01:31 pm PERFORMED BY: Performed By: ? Michelle CASTILLO, ??Criss Attending: ?Zuleyma TALYOR, Jennifer Quiroz Referred By: ?MECHE HARTMAN Location: ? [facility] SERVICE(S) PROVIDED: UPEL - Pelvis Complete - [id number] ?[id number] INDICATIONS: 50 female G0 with 3.2 cm adnexal mass seen on PT/CT. TECHNIQUE/SCAN QUALITY: Technique: ?Transducer ID#:[id number] COMPARISON: PT/CT: 02/07/21 -------- HISTORY: -------- Age: ?? 50 ------- UTERUS: ------- Uterus: ? Visualized Position: ?? Retroverted Size (cm) ?L: ??8.9 ? W: ?? 3.8 ?H: ??3.8 ENDOMETRIUM: Endometrium: ?Fluid filled with debris Intracavitary Fluid: ??Complex CUL-DE-SAC: No fluid is visualized. RIGHT OVARY: Status: ?? Visualized Size (cm) ?L: ??3.4 ? W: ?? 1.7 ?H: ??1.3 Vol (ml): ?3.9 Morphology: ?Normal appearance LEFT OVARY: Status: ?? Visualized Size (cm) ?L: ??3.0 ? W: ?? 1.9 ?H: ??1.9 Vol (ml): ?5.7 Morphology: ?Normal appearance Procedure Note Jennifer Amor MD - 04/08/2021 Gynecological Report (Signed Final 04/08/2021 02:52 pm) PATIENT INFO: ID #: [id number] : [birth year] (50 yrs)(F) Name: THERESA HENLEY Visit Date: 04/08/2021 01:31 pm PERFORMED BY: Performed By: Criss Martinez RDMS Attending: Jennifer Amor MD Referred By: MECHE HARTMAN Location: [facility] SERVICE(S) PROVIDED: UPEL - Pelvis Complete - [id number] INDICATIONS: 50 female G0 with 3.2 cm adnexal mass seen on PT/CT. TECHNIQUE/SCAN QUALITY: Technique: Transducer ID#:[id number] COMPARISON: PT/CT: 02/07/21 -------- HISTORY: -------- Age: 50 ------- UTERUS: ------- Uterus: Visualized Position: Retroverted Size (cm) L: 8.9 W: 3.8 H: 3.8 ENDOMETRIUM: Endometrium: Fluid filled with debris Intracavitary Fluid: Complex CUL-DE-SAC: No fluid is visualized. RIGHT OVARY: Status: Visualized Size (cm) L: 3.4 W: 1.7 H: 1.3 Vol (ml): 3.9 Morphology: Normal appearance LEFT OVARY: Status: Visualized Size (cm) L: 3.0 W: 1.9 H: 1.9 Vol (ml): 5.7 Morphology: Normal appearance IMPRESSION IMPRESSION: 1. Exam is limited by transabdominal approach, as patient is unable to tolerate transvaginal approach. The uterus is quite posterior, with bowel anterior to the uterus, and the fundus in the right adnexa. 2. Limited view of the uterus which demonstrates distention of the endometrium with anechoic fluid and contains a 2.2 cm soft tissue density within it. This may represent layering debris versus soft tissue mass. Distention and layering debris could be seen in the setting of cervical stenosis. Alternatively, this could represent polyp or endometrial mass. 3. The ovaries are seen bilaterally and within normal limits. No pelvic free fluid. Thank you for letting us participate in the care of this patient. If you are a health care provider and have any questions regarding this report, please contact the number above. For patients who have questions, please contact the health home care manager that requested your imaging first. Jennifer Amor, Staff Physician Electronically Signed Final Report 04/08/2021 02:52 pm Meche Hartman MD IMG US PELVIC ORDERA BLES documented in this encounter Visit Diagnoses Diagnosis Adnexal cyst Other specified symptom associated with female genital organs documented in this encounter Care Teams Chief Mechanical Engineer Relationship Specialty Start Date End Date Marck Brody DO [address] [place] [address] PCP - General 02/08/10 10/12/21 documented as of this encounter
--- OUTSIDE RECORDS SUMMARY | 2023-12-08 20:02 | XMS_ITS | Encounter Summary ---
[place] [address] Care Team Providers Care Golf Player Assistant Name Role Phone Marck Brody DO Primary Care Provider [phone] Encounter Details Date Type Department Care Team (Late st Contact Info) Description 02/21/2021 Orders Only [place] [phone] Octavia Abreu RN Xerosis of skin; Eczema, unspecified type Social History Tobacco Use Types [...] as of this encounter Visit Diagnoses Diagnosis Xerosis of skin Other specified disease of sebaceous glands Eczema, unspecified type documented in this encounter Care Teams Golf Player Assistant Relationship Specialty Start Date End Date Marck Brody DO [address] [place] [address] PCP - General 02/08/10 10/12/21 documented as of this encounter
--- OUTSIDE RECORDS SUMMARY | 2023-12-08 20:02 | XMS_ITS | Encounter Summary ---
[place] [address] Care Team Providers Care Supervisor [employer] Name Role Phone Marck Brody DO Primary Care Provider Reason for Visit * Reason Onset Date Comments Prior Authorization 12/29/2020 Pimecrolimus Encounter Details Date Type Department Care Team (Late st Contact Info) Description 12/29/2020 Telephone Dermatology at [facility] [address] [place] [phone] Sultana Rios CMA Prior Authorization (Pimecrolimus) Social History Tobacco Use Types Packs/Day Years [...] encounter Miscellaneous Notes * Telephone Encounter - Armida Ritter CMA - 12/29/2020 11:28 AM EDT Medication Prior Authorization for Primary [place] [address] DENIED: Pimecrolimus Case/Reference #: [id number] Additional Information from Insurance: Per your health plan's criteria, this drug is covered if you meet the following: You have tried (a minimum 30 day supply) or cannot use generic tacrolimus ointment. The information provided does not show that you meet the criteria listed above. Please speak with your doctor about your choices. * Telephone Encounter - Sultana Rios CMA - 12/29/2020 10:53 AM EDT Medication Prior Authorization Request received via: Message Patient: Theresa Hollis Patient : 1970 Insurance Company: [employer] Sent via: [employer] [place]: [id number] Physician: Areli Davenport MD Medication Requested: pimecrolimus (Elidel) 1 % Cream Frequency/Sig: apply topically to affected areas on the face twice daily as needed Disp: 30g Refills: 1 Currently taking: no Diagnosis for this medication: Xerosis of skin (L85.3); Eczema, unspecified type (L30.9) Prior medications trialed in this patient: Medication: triamcinolone Approx Dates: current Outcome/Adverse Reactions: inadequate response alone Additional Notes: documented in this encounter Plan of Treatment Not on file documented as of this encounter Visit Diagnoses Not on filedocumented in this encounter Care Teams Supervisor [employer] Relationship Specialty Start Date End Date Marck Brody DO [address] [place] [address] [address] [facility] [address] [place] [address] PCP - General 02/08/10 10/12/21 documented as of this encounter
--- OUTSIDE RECORDS SUMMARY | 2023-12-08 20:02 | XMS_ITS | Encounter Summary ---
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 Name Role Phone Marck Brody DO Primary Care Provider [phone] Reason for Visit * Consultation (Routine) - Closed Specialty Diagnoses / Procedures Referred By Shirley t Referred To Contact Endocrinology Diagnoses Hypothyroidism, unspecified Marck Brody DO [address] [place] [address] [facility] [address] [place] [address] Referral ID Status Reason Start Date Expiration Date V isits Requested Visits Authorized [id number] Closed Consult, [facility] PCP Updated and/or Approved 06/27/2020 06/27/2021 6 6 Encounter Details Date Type Department Care Team (Latest Contact Info) Description 11/01/2020 4:00 PM EDT Office [place] [address] Evelio Gimenez MD [facility] [place] [address] [place] [address] Hypothyroidism (acquired) (Primary Dx); Other abnormal glucose; Hypercholesterolemia Social History Tobacco Use Types Packs/Day Years [...] Sign Reading Time Taken Comments Blood Pressure 123/72 11/01/2020 3:39 PM EDT Pulse 82 11/01/2020 3:39 PM EDT Temperature 36.4 ??C (97.6 ??F) 11/01/2020 3:39 PM ED T Respiratory Rate - - Oxygen Saturation 98% 11/01/2020 3:39 PM EDT Inhaled Oxygen Concentration - - Weight 45.3 kg (99 lb 12.8 oz) 11/01/2020 3:39 P M EDT Height 157.5 cm (5' 2) 11/01/2020 3:39 PM EDT Body Mass Index 18.25 11/01/2020 3:39 PM EDT documented in this encounter Patient Instructions * Patient Instructions* Evelio Gimenez MD - 11/01/2020 4:00 PM EDT Recent Results (from the past 24 hour(s)) Lipid Panel (Reflex Direct LDL) Result Value Ref Range Chol, Total 206 mg/dL Triglycerides 189 mg/dL HDL 79 mg/dL LDL Cholesterol 89 mg/dL Chol/HDL Ratio 2.6 ratio Lipid Interpretation See Note Basic Metabolic Panel (non-fasting) Result Value Ref Range Glucose Lvl 89 65 - 199 mg/dL BUN 7 (L) 8 - 18 mg/dL Creatinine 0.69 (L) 0.70 - 1.20 mg/dL Sodium 141 135 - 145 mmol/L Potassium 3.7 3.5 - 5.0 mmol/L Chloride 105 98 - 107 mmol/L CO2 25 22 - 31 mmol/L Anion Gap 11 5 - 15 mmol/L Calcium 9.4 8.5 - 10.5 mg/dL Estimated GFR 102 >=60 mL/min/1.73 m?? Vitamin D, 25-Hydroxy Result Value Ref Range 25-OH Vit D Total 36 21 - 100 ng/mL 25-OH Vit D Interp Sufficient T3 Total Result Value Ref Range T3, Total 101 75 - 170 ng/dL T4, free Result Value Ref Range Free T4 1.51 0.93 - 1.70 ng/dL TSH Result Value Ref Range TSH 0.11 (L) 0.27 - 4.20 mcIU/mL Hemoglobin A1c Result Value Ref Range Hemoglobin A1C 5.1 4.3 - 5.6 % Est Avg Gluc 100 mg/dL *Lab results from the visit showed all good results and only minimally suppressed TSH 0.11, laggingbehind as expected (up from 0.07 after she tapered LT4 from 112 to 100 mcg less than a month ago). Ok to stay on all current Rx and recheck TSH in 2-3 months at [facility] lab. PLAN: 1. Medication: Patient will cont taking levothyroxine 100 mcg qd for now based on her test results today with normal FT4 and T3 and TSH is lagging behind as expected and should be normalized soon in the next couple of months. She knows to take it on an empty stomach at least 1/2 h before breakfast and separate from iron, calcium or multivitamin-multimineral supplement to ensure full absorption ofher thyroid medication. Patient was advised of proper dosage, how to take the medication properly, precautions, and potential complication of the medication prescribed. Patient will continue all other medications, healthy diet and execise regularly. 2. To eat healthy diet to keep weight stable or gain some weight back for her BMI of 18. 3. Lab: check lab today for TSH, FT4, T3, A1c, 25vitamin D, BMP and lipid profile. Orders Placed This Encounter Procedures ??? Hemoglobin A1c ??? TSH ??? T4, free ??? T3 Total ??? Vitamin D, 25-Hydroxy ??? Basic Metabolic Panel (non-fasting) ??? Lipid Panel (Reflex Direct LDL) To recheck lab for TSH locally at [facility] lab in 2-3 months. Standing order for TSH lab test every 2 months as needed x6 will be efaxed to [facility] lab today so she can simply go there for blood test in then as needed. X-ray/Imaging study: Office Thyroid ultrasound for baseline thyroid size and to r/o nodule at clinic today for her h/o previous head and neck irradiation. 4. RTC: 12 months and will check TSH at that time (quick-draw lab so we know the result right away at next visit) Evelio Gimenez MD, PhD, FACE, FACP documented in this encounter Progress Notes * Evelio Gimenez MD - 11/01/2020 4:00 PM EDT Endocrinology Consultation Date of Visit: 11/01/20 Patient: Name: Theresa Hollis : 1970 PCP: Marck Brody DO Provided by Evelio Gimenez MD, PhD, FACE, FACP Theresa Hollis was seen in consultation in the Endocrine clinic at the request of Dr. 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 Patient's previous record as are the lab results are reviewed. HISTORY OF PRESENT ILLNESS: Patient is a very pleasant 50 y.o. female who presents for evaluation of radiation-induced hypothyroidism 2 yrs after XRT to head and neck area for SCC tongue ca surgery and chemoRx in 2006 with TSH 105 in 06/25. She has been on an increasing dose of levothyroxine from 25 mcg up to 100-112 mcg qd with some fluctuation of TSH 0.04-7.75 range over the past year. She knows to take levothyroxine properly with [...] mcg->then 88 mcg => then 75 mcg=>88 mcg Labs: 02/14/19 10/02/19 12/09/19 02/04/20 03/05/20 05/26/20 06/23/20 *09/14/20 11/01/20 12/28/20 02/23/219/22 4/6/22 TSH 0.43 0.04L 0.29L 7.75H 0.51 1.93 4.4H 0.07L 0.11L 0.35 1.92 0.6 4.47 FT4 1.25 1.51 T3 101 25vitamin D 36 Ca 8.9 9.4 BMP Normal Normal TC/LDL 221H/131H 206H/89 TG/HDL 79/75 189/ 79 A1c 5.1% Fatigue - some Weight gain - No, very stable even while having hypo- or hyper-thyroid in the past Intolerance to cold - no Dry skin - no constipation - no Menstrual irregularities - Yes, still having monthly periods but some irregular and ? Sheila-menopause Muscle and joint pain - some Sleep [...] discomfort R07.0 Allergy Allergies Allergen Reactions ??? Benzocaine Made pt tongue red and angry. Irritant reaction - allergy testing negative ??? Birch Other (See Comments) Birch pollen: wheezing and throat constriction Current Medication Current Outpatient Medications on File Prior to Visit Medication Sig Dispense Refill ??? Tirosint-Luz 112 mcg/mL Solution TAKE 1ML BY MOUTH DAILY ??? amoxicillin-clavulanate (Augmentin) 500-125 mg Tablet Take 1 tablet by mouth daily. 30 tablet 5 ??? levoFLOXacin (Levaquin) 500 mg Tablet Take 1 tablet by mouth daily. (Patient not taking: Reported on 09/06/2020) 28 tablet 0 ??? penicillin v potassium (VEETID) 500 mg Tablet Take 1 tablet by mouth 3 times daily. (Patient not taking: Reported on 07/08/2020) 18 tablet 0 ??? mupirocin (BACTROBAN) 2 % Ointment Apply topically 3 times daily. (Patient not taking: Reportedon 10/04/2020) 22 g 1 ??? clotrimazole (LOTRIMIN) 1 % Cream Apply topically 2 times daily. ??? nrnadwup-ulvoasadyj-iaeyuvpxl (NEOSPORIN) 3.5mg-400 unit- 5,000 unit/gram Ointment Apply 1 eachtopically as needed. ??? vitamin E (vitamin E) 400 unit Capsule Take 400 Units by mouth daily. Take daily while receiving hyperbaric treatments ??? acetaminophen (Tylenol) 160 mg/5 mL Suspension Take 15 mg/kg/dose by mouth as needed for Fever. ??? levothyroxine (Synthroid) 88 mcg Tablet Take 112 mcg by mouth daily. ??? ibuprofen (ADVIL;MOTRIN) [...] Drug use: No ??? Sexual activity: Not on file Other Topics Concern ??? Not on file Social History Narrative ??? Not on file Social Determinants of Health Financial Resource Strain: ??? Difficulty of Paying Living Expenses: Not on file Food Insecurity: ??? Worried About Running Out of Food in the Last Year: Not on file ??? Ran Out of Food in the Last Year: Not on file Transportation Needs: ??? Lack of Transportation (Medical): Not on file ??? Lack of Transportation (Non-Medical): Not on file Physical Activity: ??? Days of Exercise per Week: Not on file ??? Minutes of Exercise per Session: Not on file Family History Family History Problem Relation Age of Onset ??? Breast Cancer Maternal Grandmother ??? Eczema Mother ??? Amblyopia Paternal Uncle ??? Strabismus Neg Hx ??? Macular Degeneration Neg Hx ??? Glaucoma Neg Hx PHYSICAL EXAM: BP 123/72 Pulse 82 Temp 36.4 ??C (97.6 ??F) Ht 157.5 cm (5' 2) Wt 45.3 kg (99 lb 12.8 oz) SpO2 98% BMI 18.25 kg/m?? GENERAL: Thin, well hydrated, in no distress, [...] tremor, normal reflexes Office Thyroid Ultrasound at visit today Indication: Radiation-induced Hypothyroidism with h/o head and [...] supplement to keep TSH in normal range. EVEILO GIMENEZ MD Addendum: lab after the visit today Recent Results (from the past 24 hour(s)) Lipid Panel (Reflex Direct LDL) Result Value Ref Range Chol, Total 206 mg/dL Triglycerides 189 mg/dL HDL 79 mg/dL LDL Cholesterol 89 mg/dL Chol/HDL Ratio 2.6 ratio Lipid Interpretation See Note Basic Metabolic Panel (non-fasting) Result Value Ref Range Glucose Lvl 89 65 - 199 mg/dL BUN 7 (L) 8 - 18 mg/dL Creatinine 0.69 (L) 0.70 - 1.20 mg/dL Sodium 141 135 - 145 mmol/L Potassium 3.7 3.5 - 5.0 mmol/L Chloride 105 98 - 107 mmol/L CO2 25 22 - 31 mmol/L Anion Gap 11 5 - 15 mmol/L Calcium 9.4 8.5 - 10.5 mg/dL Estimated GFR 102 >=60 mL/min/1.73 m?? Vitamin D, 25-Hydroxy Result Value Ref Range 25-OH Vit D Total 36 21 - 100 ng/mL 25-OH Vit D Interp Sufficient T3 Total Result Value Ref Range T3, Total 101 75 - 170 ng/dL T4, free Result Value Ref Range Free T4 1.51 0.93 - 1.70 ng/dL TSH Result Value Ref Range TSH 0.11 (L) 0.27 - 4.20 mcIU/mL Hemoglobin A1c Result Value Ref Range Hemoglobin A1C 5.1 4.3 - 5.6 % Est Avg Gluc 100 mg/dL *Lab results from the visit showed all good results and only minimally suppressed TSH 0.11, laggingbehind as expected (up from 0.07 after she tapered LT4 from 112 to 100 mcg less than a month ago). Ok to stay on all current Rx and recheck TSH in 2-3 months at [facility] lab. Addendum: Lab on 04/27/21 showed TSH 0.6 (was 1.92 in Feb 2021), so she will lower the levothyroxine dose from 88 to 75 mcg daily to help her gain some weight back (BW 98-99 lbs). Target TSH 1.0-3.0. & will send new prescription out for her. EVELIO GIMENEZ MD Addendum outside lab on 06/22/21 showed high normal TSH at 4.47 (optimal 1.0-3.0). So, you should increase levothyroxine back from 75 to 88 mcg daily as we just e- prescribed to your [facility]. Then recheck lab for TSH in 2-3 months for trend. DIAGNOSIS: 50 y.o. 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 She has been on an increasing dose of levothyroxine from 25 mcg up to 100-112 mcg qd with some fluctuation of TSH 0.04-7.75 range over the past year (too suppressed with 112 mcg dosing and now better near normal TSH after taking LT4 100 mcg qd for nearly a month). Also, mild hypercholesterolemia on diet control with improvement. Target TSH 1.0-4.0range to avoid weight loss for her. She felt the best when her TSH was 1.0-2.0. PLAN: 1. Medication: Patient will cont taking levothyroxine 100 mcg qd for now based on her test results today with normal FT4 and T3 and TSH is lagging behind as expected and should be normalized soon in the next couple of months. She knows to take it on an empty stomach at least 1/2 h before breakfast and separate from iron, calcium or multivitamin-multimineral supplement to ensure full absorption ofher thyroid medication. Patient was advised of proper dosage, how to take the medication properly, precautions, and potential complication of the medication prescribed. Addendum: LT4 dose was tapered further to 88 mcg qd in Dec 2020 and then 75 mcg qd from 05/02/21. Patient will continue all other medications, healthy diet and execise regularly. 2. To eat healthy diet to keep weight stable or gain some weight back for her BMI of 18. 3. Lab: check lab today for TSH, FT4, T3, A1c, 25vitamin D, BMP and lipid profile. Orders Placed This Encounter Procedures ??? Hemoglobin A1c ??? TSH ??? T4, free ??? T3 Total ??? Vitamin D, 25-Hydroxy ??? Basic Metabolic Panel (non-fasting) ??? Lipid Panel (Reflex Direct LDL) To recheck lab for TSH locally at [facility] lab in 2-3 months. Standing order for TSH lab test every 2 months as needed x6 will be efaxed to [facility] lab today so she can simply go there for blood test in then as needed. X-ray/Imaging study: Office Thyroid ultrasound for baseline thyroid size and to r/o nodule at clinic today for her h/o previous head and neck irradiation. 4. RTC: 12 months and will check TSH at that time (quick-draw lab so we know the result right away at next visit) 5. Patient info on hypothyroidism was given and explained in details today We have reviewed our plan outlined above [...] Evelio Gimenez MD, PhD, FACE, FACP cc: Marck Brody, documented in this encounter Miscellaneous Notes * Addendum Note - Evelio Gimenez MD - 11/01/2020 4:00 PM EDTAddended by: EVELIO GIMENEZ on: 05/02/2021 07:57 PM Modules accepted: Orders documented in this encounter Plan of Treatment Not on file documented as of this encounter Procedures Procedure Name Priority Date/Time Associated Diagnosis Comments HC VITAMIN D TOTAL-25 HYDROXY Routine 11/01/2020 5:06 PM EDT Hypothyroidism (acquired) Other abnormal glucose Hypercholesterolemi a HC TOTAL T3 Routine 11/01/2020 5:06 PM EDT Hypothyroidism (acquired) Other abnormal glucose Hypercholesterolemi a HC THYROID STIMULATING HORMONE, SERUM Routine 11/01/2020 5:06 PM EDT Hypothyroidism (acquired) Other abnormal glucose Hypercholesterolemi a HC FREE THYROXINE (T4) Routine 11/01/2020 5:06 PM EDT Hypothyroidism (acquired) Other abnormal glucose Hypercholesterolemi a HC HEMOGLOBIN A1C Routine 11/01/2020 5:0 6 PM EDT Hypothyroidism (acquired) Other abnormal glucose HC VENIPUNCTURE Routine 11/01/2020 5:06 PM EDT Hypothyroidism (acquired) Other abnormal glucose Hypercholesterolemi a BASIC METABOLIC PANEL Routine 11/01/2020 5:06 PM EDT Hypothyroidism (acquired) Other abnormal glucose Hypercholesterolemi a documented in this encounter Results * Lipid Panel (Reflex Direct LDL) (11/01/2020 5:06 PM EDT) Pathologist [facility] Cholesterol, Total 206 mg/dL [facility] Comment: Lower Risk: <200 mg/dL Average Risk: 200-239 mg/dL Higher Risk: >af=473 mg/dL Triglyceride 189 mg/dL [facility] Comment: Average Risk/Lower Risk: <150 mg/dL Borderline High Risk: 150-199 mg/dL High Risk: 200-499 mg/dL Very High Risk: >gg=293 mg/dL HDL Cholesterol 79 mg/dL [facility] Comment: Males: ?? Higher Risk: <40 mg/dL Females: ?? Higher Risk: <50 mg/dL LDL Cholesterol 89 mg/dL [facility] Comment: Lowest Risk: <100 mg/dL Lower Risk: 100-129 mg/dL Borderline High Risk: 130-159 mg/dL High Risk: 160-189 mg/dL Very High Risk: >xu=656 mg/dL Cholesterol/HDL Ratio 2.6 ratio [facility] Lipid Interpretation See Note [facility] Comment: Lipid management should be guided by a patient? s ASCVD risk, goals and preferences. ACC/AHA Guidelines recommend high intensity statin if clinical ASCVD or LDL greater than or equal to 190 mg/dL. http://tinyurl.com/JTZ-ANH-Sbkwbfnqp Adults aged 40-75 with LDL 70-189 mg/dL should have their 10 year ASCVD risk estimated with the ACC/AHA ASCVD risk senior cost estimator http://tools.acc.org/TYYWL-Owfs-Tgbvitxim/ Statin should be discussed if risk greater than or equal to 7.5% in non-diabetics. With diabetes, moderate intensity statin is recommended if risk less than 7.5%, high intensity if risk greater than or equal to 7.5%. Annual lipid monitoring on statins is not necessary. Evaluate secondary causes of Triglycerides greater than 500 mg/dL or LDL greater than 190 mg/dL: See table 6 of ACC/AHA Guideline. Lifestyle modification is a critical component of ASCVD risk reduction. Blood 11/01/2020 5:06 PM EDT 11/01/2020 5:12 PM EDT Narrative Resulting Agency Comment Spec In Lab Evelio Gimenez MD CHEMISTRY ORDERAB LES [facility] [place] [address] * (ABNORMAL) Basic Metabolic Panel (non-fasting) (11/01/2020 5:06 PM EDT) Glucose 89 65 - 199 mg/dL [facility] Comment:Diabetes: >=200 mg/d L plus symptoms Blood Urea Nitrogen 7(L) 8 - 18 mg/dL [facility] Creatinine 0.69(L) 0.70 - 1.20 mg/dL [facility] Sodium 141 135 - 145 mmol/L [facility] Potassium 3.7 3.5 - 5.0 mmol/L [facility] Comment: Please note: ??Patients with WBC >100,000 may have falsely elevated Potassium levels. ??For accurate Potassium quantification in these patients send serum separator tube (gold top) for subsequent determinations. ??Contact the Clinical Chemistry Laboratory if there are any questions. Chloride 105 98 - 107 mmol/L [facility] Carbon Dioxide 25 22 - 31 mmol/L [facility] Anion Gap 11 5 - 15 mmol/L [facility] Calcium 9.4 8.5 - 10.5 mg/dL [facility] Est Glomerular Filtration Rate 102 >=60 mL/min/1. 73 m?? [facility] Comment: This patient? s estimated glomerular filtration rate (eGFR) is between 102 mL/min/1.73 m2 (patients with less muscle mass) and 118 mL/min/1.73 m2 (patients with more muscle mass) as determined by the CKD-EPI equation. Assessment of eGFR is not appropriate when creatinine concentrations are rapidly changing. For clinical decisions where creatinine clearance will affect therapy, a 24-hour urine creatinine clearance may be advised. Assignment of CKD stage 1 - 5 for patients with an eGFR near the transition point between stages may be based on clinical assessment of muscle mass and symptoms in addition to eGFR. Blood 11/01/2020 5:06 PM EDT 11/01/2020 5:12 PM EDT Narrative Resulting Agency Comment Spec In Lab Evelio Gimenez MD CHEMISTRY ORDERAB LES Performing Organization Address City/[facility]/ZIP Co de Phone Number [facility] [place] [address] * Vitamin D, 25-Hydroxy (11/01/2020 5:06 PM EDT) Vitamin D Total 25 OH 36 21 - 100 ng/mL [facility] Vit D Interp Sufficient [facility] Blood 11/01/2020 5:06 PM EDT 11/01/2020 5:12 PM EDT Narrative Resulting Agency Comment Spec In Lab Evelio Gimenez MD CHEMISTRY ORDERAB LES Performing Organization Address City/[facility]/ZIP Co de Phone Number [facility] [place] [address] * T3 Total (11/01/2020 5:06 PM EDT) T3 Total 101 75 - 170 ng/dL [facility] Blood 11/01/2020 5:06 PM EDT 11/01/2020 5:12 PM EDT Narrative Resulting Agency Comment Spec In Lab Evelio Gimenez MD CHEMISTRY ORDERAB LES Performing Organization Address City/[facility]/ZIP Co de Phone Number [facility] [place] [address] * T4, free (11/01/2020 5:06 PM EDT) Free T4 1.51 0.93 - 1.70 ng/dL [facility] Comment: Reference Interval (ng/dL): Females: ??First Trimester: 0.97-1.68 ??Second Trimester: 0.77-1.51 ??Third Trimester: 0.77-1.49 Blood 11/01/2020 5:06 PM EDT 11/01/2020 5:12 PM EDT Narrative Resulting Agency Comment Spec In Lab Evelio Gimenez MD CHEMISTRY ORDERAB LES Performing Organization Address [facility] Co de Phone Number [facility] [place] [address] * (ABNORMAL) TSH (11/01/2020 5:06 PM EDT) [facility] Thyroid Stimulating Hormone 0.11(L) 0.27 - 4.20 mcIU/mL [facility] Comment: Reference Interval (mcIU/mL): Females: ??First Trimester: 0.23-3.88 ??Second Trimester: 0.22-3.90 ??Third Trimester: 0.44-4.66 Blood 11/01/2020 5:06 PM EDT 11/01/2020 5:12 PM EDT Narrative Resulting Agency Comment Spec In Lab Evelio Gimenez MD CHEMISTRY ORDERAB LES Performing Organization Address City/[facility]/ZIP Co de Phone Number [facility] [place] [address] * Hemoglobin A1c (11/01/2020 5:06 PM EDT) Pathologist [facility] Hemoglobin A1c 5.1 4.3 - 5.6 % [facility] Comment: Reference Range: 4.3 - 5.6% 5.7 - 6.4% - Increased Risk of Developing Diabetes Mellitus >= 6.5% - Consistent with diagnosis of Diabetes Mellitus In the absence of hyperglycemia (i.e. plasma glucose > 200 mg/dL) or classic symptoms of hyperglycemia a repeat measurement of HbA1c should be performed on a separate sample to confirm the diagnosis. Diagnosis and Classification of Diabetes Mellitus, Diabetes Care 2013; 36: Suppl. 1, S67-74 Estimated Average Glucose 100 mg/dL [facility] Comment: eAG equivalents for HbA1c percentages: HbA1c(%) ?eAG(mg/dL) 6.0 ?126 6.5 ?140 7.0 ?154 7.5 ?169 8.0 ?183 8.5 ?197 9.0 ?212 9.5 ?226 10.0 ? 240 Limitations: The eAG calculation has not been validated on women, individuals below 18 years old and above 70 years old, and individuals with hemoglobinopathies. Additional resources are available on the ADA website. Adria YE, Mick J, Brenda R, et al. ??Translating the A1C assay into estimated average glucose values. ??Diabetes Care 2008:31(8):6643-3255. Blood 11/01/2020 5:06 PM EDT 11/01/2020 5:12 PM EDT Narrative Resulting Agency Comment Spec In Lab Evelio Gimenez MD CHEMISTRY ORDERAB LES [facility] [place] [address] documented in this encounter Visit Diagnoses Diagnosis Hypothyroidism (acquired)- Primary Unspecified hypothyroidism Other abnormal glucose Hypercholesterolemia Pure hypercholesterolemia documented in this encounter Care Teams Casting Wheel Operator Relationship Specialty Start Date End Date Marck Brody DO [address] [place] [address] PCP - General 02/08/10 10/12/21 documented as of this encounter
--- OUTSIDE RECORDS SUMMARY | 2023-12-08 20:02 | XMS_ITS | Encounter Summary ---
Author Organization [facility] Address [facility] [place] [address] Care Team Providers Care Drywall Hanger Name Role Phone Marck Brody DO Primary Care Provider [phone] Reason for Referral * Consultation (Routine) - Closed Specialty Diagnoses / Procedures Referred By Contgumaro cuevas Referred To Contact Dermatology Diagnoses H/O tongue cancer Pruritus Roberth Little MD [facility] [address] [facility] Dermatology [address] [place] [address] Referral ID Status Reason Start Date Expiration Date V isits Requested Visits Authorized [id number] Closed Consult, Test & Treat 10/04/2020 10/04/2021 1 1 Reason for Visit * Reason Comments Follow-up Tongue/back of mouth tinging when eating acidic food started on Sunday. Itchiness, non local. Encounter Details Date Type Department Care Team (Late st Contact Info) Description 10/04/2020 11:00 AM EDT Office [place] [address] Roberth Little MD [facility] [place] [address] H/O tongue cancer; Pruritus; Osteonecrosis of mandible; Thrush Social History Tobacco Use Types Packs/Day [...] - - Weight 45.2 kg (99 lb 11.2 oz) 10/04/2020 10:50 AM EDT Height 157.5 cm (5' 2) 10/04/2020 10:50 AM EDT Body Mass Index 18.24 10/04/2020 10:50 AM EDT documented in this encounter Progress Notes * Roberth Little MD - 10/04/2020 11:00 AM EDT [facility] OTOLARYNGOLOGY HEAD AND NECK TUMOR CLINIC FOLLOW UP NOTE Theresa Hollis is a 50 y.o. female followed for: Primary site: Left lateral tongue Stage: [id number] Surgery(ies): 10/31/06 - Hemiglossectomy, left neck dissection 1-5, skin graft, allograft Radiation: TREATMENT STARTED: 11/28/06 TREATMENT COMPLETED: 01/14/07 TREATMENT: The total maximum dose was 6600 cGy in 33 fractions. Volume reductions were instituted at 5400 cGy in 30 fractions &??6000 cGy in 30 fractions. Chemotherapy: Concurrent cisplatin?? New issues since last visit: Her for an ophthalmology visit. Report itching (which she is certain began BEFORE starting antibiotics) but also the beginnings of thrush. Drainage from the chin picked up when she stopped the antibiotics for a few days but has now slowed down again since resuming antibiotics. PROBLEM LIST Patient Active Problem List Diagnosis [...] Cancer of head, face, and neck ??? 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 Herpes [...] by mouth daily. 30 tablet 5 ??? acetaminophen (Tylenol) 160 mg/5 mL Suspension Take 15 mg/kg/dose by mouth as needed for Fever. ??? levothyroxine (Synthroid) 88 mcg Tablet Take 112 mcg by mouth daily. ??? ibuprofen (ADVIL;MOTRIN) 100 mg/5 mL Suspension Take by mouth every 4 hours as needed for Fever. ??? levoFLOXacin (Levaquin) 500 mg Tablet Take [...] taking: Reportedon 10/04/2020) 22 g 1 ??? [DISCONTINUED] nystatin (Mycostatin) 100,000 unit/mL Suspension Take 5 mLs by mouth 4 times daily. (Patient not taking: Reported on 06/14/2020) 60 mL 0 ??? clotrimazole (LOTRIMIN) 1 % Cream Apply topically 2 times daily. ??? xtdmttjy-djzsotumqx-cwsaowrbo (NEOSPORIN) 3.5mg-400 unit- 5,000 unit/gram Ointment Apply 1 eachtopically as needed. ??? vitamin E (vitamin E) 400 unit Capsule Take 400 Units by mouth daily. Take daily while receiving hyperbaric treatments No current facility-administered medications on file prior [...] EXAMINATION Wt Readings from Last 3 Encounters: 10/04/20 45.2 kg (99 lb 11.2 oz) 09/06/20 45.4 kg (100 lb) 07/08/20 46.3 kg (102 lb) General: Well developed, no distress Head/face: Normocephalic, atraumatic Oral cavity: No obvious thrush but patient reports symptoms similar to when she has had thrush in the past Oropharynx: IDL with normal tongue base and larynx, some mucoid discharge Neck: No adenopathy, no masses, normal thyroid, normal salivary gland exam. Trachea midline. Mild drainage from chin, stable, dressed. Resp: Post glossectomy speech, no stridor, normal respirations. Skin: Normal skin survey of the head and neck. MSK: Mild trismus, normal neck range of motion Neuro: AxOx3; CN II-XII is grossly intact Psych: Normal mood and affect. Responds appropriately to questions. PROCEDURES None REVIEW OF IMAGES None ASSESSMENT/RECOMMENDATIONS ORN mandible Mild thrush Continue low dose antibiotics Nystatin Call if concerns/problems Follow up in 6 months I appreciate the opportunity to be involved in Ms. Hollis's care. 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
--- OUTSIDE RECORDS SUMMARY | 2023-12-08 20:02 | XMS_ITS | Encounter Summary ---
Author Organization Formerly [place] [address] Care Team Providers Care Aerotriangulation Specialist Name Role Phone Marck Brody DO Primary Care Provider [phone] Reason for Visit * Reason Onset Date Comments Appointment 10/12/2020 Encounter Details Date Type Department Care Team (Late st Contact Info) Description 10/12/2020 Telephone [place] [phone] Hattie Braun OD [facility] [place] [address] Appointment Social History Tobacco Use Types Packs/Day [...] encounter Miscellaneous Notes * Telephone Encounter - Jacqueline Bennett - 10/13/2020 8:22 AM EDT Patient returned pedro. She stated that before she can schedule, she would like to find out how much her appointment on 10/04 was and if it will be covered by insurance. She will call back if she would like to schedule * Telephone Encounter - Ashanti Webster - 10/12/2020 4:21 PM EDTSummary: SHOSHANA 3 M + 1Y w [facility] Lft VM msg for pt to SHOSHANA two FUV to appt w Kade on 10/04/20. 3 months for *NO DILATION*, dry eye chk, w/ worsening sx Also: 1 year (around 10/04/2021) for CEE. (Pt has a 2020 GL Rx) from [facility]. documented in this encounter Plan of Treatment Not on file documented as of this encounter Visit Diagnoses Not on filedocumented in this encounter Care Teams Aerotriangulation Specialist Relationship Specialty Start Date End Date Marck Brody DO [address] [place] [address] PCP - General 02/08/10 10/12/21 documented as of this encounter
--- OUTSIDE RECORDS SUMMARY | 2023-12-08 20:02 | XMS_ITS | Encounter Summary ---
Author Organization [facility] [place] [address] Care Team Providers Care Solder Leveler Printed Circuit Boards Name Role Phone Marck Brody DO Primary Care Provider Encounter Details Date Type Department Care Team (Late st Contact Info) Description 05/19/2021 Telephone Obstetrics [place] [address] Val Vela, RN Social History Tobacco Use Types Packs/Day [...] encounter Miscellaneous Notes * Telephone Encounter - Val Vela, RN - 05/19/2021 4:55 PM EST Called pt to let her know that [facility] has Denied coverage for MRI they think its not medically necessary. Pt has asked if the ordering provider will file an appeal. will forward to Dr. Gant documented in this encounter Plan of Treatment Not on file documented as of this encounter Visit Diagnoses Not on filedocumented in this encounter Care Teams Solder Leveler Printed Circuit Boards Relationship Specialty Start Date End Date Marck Brody DO [address] [place] [address] PCP - General 02/08/10 10/12/21 documented as of this encounter
--- OUTSIDE RECORDS SUMMARY | 2023-12-08 20:02 | XMS_ITS | Encounter Summary ---
Author Organization [facility] Address [facility] [place] [address] Care Team Providers Care Scientific Database Curator Name Role Phone Marck Brody DO Primary Care Provider Encounter Details Date Type Department Care Team (Late st Contact Info) Description 12/28/[address] [facility] [address] [place] [address] [facility] [address] [address] Social History Tobacco Use Types Packs/Day Years [...] encounter Miscellaneous Notes * Telephone Encounter - Yun Sandy - 12/28/2020 12:37 PM EDT Patient contacted the clinic inquiring about 01/24 and 01/[address] Davenport. Unfortunately I was not able to accommodate this request. Patient will call back with additional dates. * Telephone Encounter - Lenora Guerrero - 12/28/2020 12:17 PM EDT Theresa Hollis called back to schedule. 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 She is going to look at her schedule tomorrow and see if she can get me some other dates that might work for her. * Telephone Encounter - Lenora Guerrero - 12/28/2020 10:42 AM EDT I left a voicemail for Theresa Wyattteddynorm requesting a call back to schedule 1 month for pruritus follow up. * Telephone Encounter - Lenora Guerrero - 12/28/2020 10:42 AM EDT ----- Message from Flower Wahl sent at 12/27/2020 11:03 AM EDT ----- 1 month for pruritus follow up documented in this encounter Plan of Treatment Not on file documented as of this encounter Visit Diagnoses Not on filedocumented in this encounter Care Teams Scientific Database Curator Relationship Specialty Start Date End Date Marck Brody DO [address] [place] [address] [address] [place] [address] PCP - General 02/08/10 10/12/21 documented as of this encounter
--- OUTSIDE RECORDS SUMMARY | 2023-12-08 20:02 | XMS_ITS | Encounter Summary ---
Author Organization [facility] [place] [address] Care Team Providers Care Geospatial Image Analyst Name Role Phone Marck Brody DO Primary Care Provider Reason for Referral * Diagnostic Test (Routine) - Closed Specialty Diagnoses / Procedures Referred By Shirley cuevas Referred To Contact Radiology Diagnoses Encounter for screening mammogram for breast cancer Procedures Mammo Screening Cad and Demetrio Bilateral Marck Brody DO [address] [place] [address] [place] [address] Referral ID Status Reason Start Date Expiration Date V isits Requested Visits Authorized [id number] Closed Specialty Service Requested 10/07/2020 04/09/2022 1 1 Reason for Visit * Diagnostic Test (Routine) - Closed Specialty Diagnoses / Procedures Referred By Shirley cuevas Referred To Contact Radiology Diagnoses Encounter for screening mammogram for breast cancer Procedures Mammo Screening Cad and Demetrio Bilateral Marck Brody DO [address] [place] [address] [facility] [place] [address] Referral ID Status Reason Start Date Expiration Date V isits Requested Visits Authorized [id number] Closed Specialty Service Requested 10/07/2020 04/09/2022 1 1 Encounter Details Date Type Department Care Team (Jose st Contact Info) Description 03/07/2021 12:52 PM EST - 03/07/2021 11:59 PM EST Hospital Encounter Mammography/[place] [address] Marck Brody, DO [address] [place] [address] Encounter for screening mammogram for breast cancer Discharge Disposition: Home Social History Tobacco [...] mouth daily. 90 tablet 3 05/02/2021 06/26/2021 triamcinolone acetonide (Kenalog) 0.1 % PasteIndications:Thrus h [...] MAMMO SCREENING CAD AND DEMETRIO BILATERAL Routine 03/07/2021 1:10 PM EST Encounter for screening mammogram for breast cancer documented in this encounter Results * Mammo Screening Cad and Demetrio Bilateral (03/07/2021 1:10 PM EST) Anatomical Region Laterality Modality Breast Bilateral Mammography Narrative 03/08/2021 10:23 AM EST BILATERAL MAMMOGRAPHY REASON FOR EXAM: [...] BIRADS CATEGORY 1: NEGATIVE Electronically signed by: MALATHI SANDERS MD Marck Brody DO IMDonald MAMMO ORDERABLES documented in this encounter Visit Diagnoses Diagnosis Encounter for screening mammogram for breast cancer documented in this encounter Care Teams Geospatial Image Analyst Relationship Specialty Start Date End Date Marck Brody DO [address] [place] [address] PCP - General 02/08/10 10/12/21 documented as of this encounter
--- OUTSIDE RECORDS SUMMARY | 2023-12-08 20:02 | XMS_ITS | Encounter Summary ---
Author Organization [facility] [place] [address] Care Team Providers Care Corporate Strategy Intern Name Role Phone Marck Brody DO Primary Care Provider [phone] Reason for Referral * Consultation (Routine) - Closed Specialty Diagnoses / Procedures Referred By Contac t Referred To Contact Obstetrics and Gynecology Diagnoses H/O tongue cancer Osteoradionecrosis of jaw Roberth Little MD [facility] [place] [address] [facility] Desktop Technician [address] [place] [address] Referral ID Status Reason Start Date Expiration Date V isits Requested Visits Authorized [id number] Closed Consult, Test & Treat 02/07/2021 02/07/2022 1 1 Encounter Details Date Type Department Care Team (Late st Contact Info) Description 02/07/2021 11:40 AM EST Office Visit [place] [address] Roberth Little MD [facility] [place] [address] H/O tongue cancer; Osteoradionecrosis of jaw Social [...] of this encounter Progress Notes * Roberth Little MD - 02/07/2021 11:40 AM EST [facility] OTOLARYNGOLOGY HEAD AND NECK TUMOR CLINIC FOLLOW UP NOTE Theresa Hollis is a 50 y.o. female followed for: Primary site: Left lateral tongue Stage: [id number] Surgery(ies): 10/31/06 - Hemiglossectomy, left neck dissection 1-5, skin graft, allograft Radiation: TREATMENT STARTED: 11/28/06 TREATMENT COMPLETED: 01/14/07 TREATMENT: The total maximum dose was 6600 cGy in 33 fractions. Volume reductions were instituted at 5400 cGy in 30 fractions &??6000 cGy in 30 fractions. Chemotherapy: Concurrent cisplatin?? New issues since last visit: Still having drainage despite BID augmentin Had PET/CT to rule out mets/new primary given her pruritis without rash PROBLEM LIST Patient Active Problem List Diagnosis [...] to Visit Medication Sig Dispense Refill ??? tacrolimus (Protopic) 0.1 % Ointment Apply topically to affected areas on the face twice daily as needed. 60 g 3 ??? levothyroxine (Synthroid) 88 mcg Tablet Take 1 tablet by mouth daily. 90 tablet 3 ??? triamcinolone (Kenalog) 0.1 % Cream Apply topically to itchy areas on the torso and extremitiesfor up to 14 days per month. Avoid face, skin folds, and genitals. 45 g 0 ??? pimecrolimus (Elidel) 1 % Cream Apply topically to affected areas on the face twice daily as needed. 30 g 1 ??? triamcinolone acetonide (Kenalog) 0.1 % Paste Place 1 each onto teeth 2 times daily. 5 g 12 ??? hypromellose (SYSTANE GEL OPHT) Apply to eye 2 times daily. ??? [DISCONTINUED] amoxicillin-clavulanate (Augmentin) 500-125 mg Tablet Take 1 tablet by mouth daily. 30 tablet 5 ??? acetaminophen (Tylenol) 160 mg/5 mL Suspension Take 15 mg/kg/dose by mouth as needed for Fever. ??? ibuprofen (ADVIL;MOTRIN) 100 mg/5 mL Suspension Take by mouth every 4 hours as needed for Fever. ??? clotrimazole (LOTRIMIN) 1 % Cream Apply topically 2 times daily. No current facility-administered medications [...] EXAMINATION Wt Readings from Last 3 Encounters: 11/01/20 45.3 kg (99 lb 12.8 oz) 10/04/20 45.2 kg (99 lb 11.2 oz) 09/06/20 45.4 kg (100 lb) General: Well developed, no distress Head/face: Normocephalic, atraumatic Oral cavity: No concerning lesions or mucosal changes. No exposed bone. Oropharynx: IDL with normal tongue base and larynx Neck: No adenopathy, no masses, normal thyroid, normal salivary gland exam. Trachea midline. Mild drainage from chin, stable, dressed. Culture taken today. Resp: Post glossectomy speech, no stridor, normal respirations. Skin: Normal skin survey of the head and neck. MSK: Mild trismus, normal neck range of motion Neuro: AxOx3; CN II-XII is grossly intact Psych: Normal mood and affect. Responds appropriately to questions. PROCEDURES None REVIEW OF IMAGES EXAMINATION: NM PET CT STANDARD PLUS HEAD AND NECK ?? CLINICAL HISTORY: 50-year-old female with history of oral cancer with extensive isma metastases status post surgery and chemoradiation who presents with new unexplained pruritus without rash concerning for possible metastases. ?? TECHNIQUE: Following IV injection of 39-flcrbg-1-deoxyglucose (FDG) a standard uptake of approximately 60 [...] cyst. Consider transvaginal ultrasound for further characterization. ASSESSMENT/RECOMMENDATIONS ORN mandible - continue antibiotics - culture today - renew nystatin PET/CT findings: - refer to skilled laborer Call if concerns/problems Follow up in 6 months I appreciate the opportunity to be involved in Ms. Hollis's care. ROBERTH LITTLE MD 02/07/2021 documented in this encounter Plan of Treatment Scheduled Referrals Name Type Priority Associated Diagnoses Orde r Schedule Referral to Ob-Healthcare Applications Analyst Outpatient Referral Routine H/O tongue cancer Osteoradionecrosis of jaw Ordered: 02/07/2021 documented as of this encounter Procedures Procedure Name Priority Date/Time Associated Diagnosis Comments ANAEROBIC CULTURE Routine 02/07/2021 11: 21 AM EST H/O tongue cancer HC WOUND/ABSCESS CX Routine 02/07/2021 1 1:21 AM EST H/O tongue cancer ABSCESS/WOUND ASPIRATE CULTURE Routine 02/07/2021 11:21 AM EST H/O tongue cancer documented in this encounter Results * Anaerobic Culture (02/07/2021 11:21 AM EST) Anaerobic Culture No anaerobic organisms isolated [facility] Fluid NECK STRUCTURE / Unknown 02/07/2021 11:21 AM EST 02/07/2021 11:47 AM EST Comment:Draining fluid from area of dehiscence along skin Narrative Resulting Agency Comment Spec In Lab Ilda Estrada MD MICROBIOLOGY - G ENERAL ORDERABLES Performing Organization Address City/[facility]/[place] [address] * (ABNORMAL) Abscess/Wound Aspirate Culture (02/07/2021 11:21 AM EST) Abscess/Wound Aspirate Culture Rare mixed Gram Negative and Positive organisms(A) [facility] Gram Stain No Neutrophils seen. No microorganisms seen. (A) [facility] Fluid NECK STRUCTURE / Unknown 02/07/2021 11:21 AM EST 02/07/2021 11:47 AM EST Comment:Draining fluid from area of dehiscence along skin Narrative Resulting Agency Comment Spec In Lab Ilda Estrada MD MICROBIOLOGY - G ENERAL ORDERABLES Performing Organization Address City/[facility]/ZIP Co de Phone Number [facility] [place] [address] documented in this encounter Visit Diagnoses Diagnosis H/O tongue cancer Personal history of malignant neoplasm of tongue Osteoradionecrosis of jaw Other specified disease of the jaws documented in this encounter Care Teams Corporate Strategy Intern Relationship Specialty Start Date End Date Marck Brody DO [address] [place] [address] PCP - General 02/08/10 10/12/21 documented as of this encounter
--- OUTSIDE RECORDS SUMMARY | 2023-12-08 20:02 | XMS_ITS | Encounter Summary ---
Author Organization [facility] Address [facility] [place] [address] Care Team Providers Care Security System Technician Name Role Phone Marck Brody DO Primary Care Provider Encounter Details Date Type Department Care Team (Late st Contact Info) Description 07/19/2021 3:20 AM EDT Ancillary Procedure Radiology Library at [facility] [place] [phone] Glenna Bullock MD [facility] OBSTETRICS [place] [address] Adnexal cyst Social History Tobacco Use Types [...] Procedure Name Priority Date/Time Associated Diagnosis Comments REQUEST FOR 2ND READ MR PELVIS Routine 07/19/2021 3:18 AM EDT Adnexal cyst documented in this encounter Results * Request for 2nd [...] who have questions please contact the health health care coach that requested your imaging first. ? Narrative 07/19/2021 8:53 AM EDT EXAMINATION: REQUEST FOR 2ND READ MR PELVIS CLINICAL HISTORY: MR Pelvic performed to evaluate adnexal vs uterine mass seen on PET CT, unable to tolerate vaginal u/s. H/o SCC of tongue; Sending Institution [facility]; Date of exam [id number]; I believe a [...] u/s. H/o SCC of tongue; Sending Institution [facility]; Date of exam [id number]; Ibelieve a reinterpretation [...] Normal. Cervix: 2.9 cm well-circumscribed, round predominantly W2pxrdgwxophgq/T1 hypointense nonenhancing lesion to the right of midline within thecervical region demonstrates some dependently layering T2 hypointense/O0adlczurrrnxa material. This is favored to represent a [...] patients who have questions please contactthe health health care coach that requested your imaging first. Glenna Bullock MD IMG OUTSIDE INTERPRE TATION ORDERABLES documented in this encounter Visit Diagnoses Diagnosis Adnexal cyst Other specified symptom associated with female genital organs documented in this encounter Care Teams Security System Technician Relationship Specialty Start Date End Date Marck Brody DO [address] [place] [address] PCP - General 02/08/10 10/12/21 documented as of this encounter
--- OUTSIDE RECORDS SUMMARY | 2023-12-08 20:02 | XMS_ITS | Encounter Summary ---
Author Organization [facility] Address [facility] [place] [address] Care Team Providers Care Early Morning Name Role Phone Marck Brody DO Primary Care Provider Encounter Details Date Type Department Care Team (Late st Contact Info) Description 07/19/2021 Telephone Obstetrics [place] [address] Essence Gant MD [facility] OBSTETRICS & [place] [address] Social History Tobacco Use Types Packs/Day Years [...] on filedocumented in this encounter Care Teams Early Morning Relationship Specialty Start Date End Date Marck Brody DO [address] [place], [place] [id number] PCP - General 02/08/10 10/12/21 documented as of this encounter
--- OUTSIDE RECORDS SUMMARY | 2023-12-08 20:02 | XMS_ITS | Encounter Summary ---
Author Organization [facility] [place] [address] Care Team Providers Care Building Economist Name Role Phone Marck Brody DO Primary Care Provider Encounter Details Date Type Department Care Team (Late st Contact Info) Description 12/29/2020 Telephone Dermatology at [facility] [address] [place] [address] Lenora Guerrero Social History Tobacco Use Types Packs/Day Years [...] encounter Miscellaneous Notes * Telephone Encounter - Lenora Guerrero - 12/29/2020 9:37 AM EDT I left a voicemail for Theresa Hollis requesting a call back. * Telephone Encounter - Ronnie Matthews LNA - 12/29/2020 8:06 AM EDT Theresa Hollis called and would like a return call to schedule treatment ? [phone] documented in this encounter Plan of Treatment Not on file documented as of this encounter Visit Diagnoses Not on filedocumented in this encounter Care Teams Building Economist Relationship Specialty Start Date End Date Marck Brody DO [address] [place] [address] PCP - General 02/08/10 10/12/21 documented as of this encounter
--- OUTSIDE RECORDS SUMMARY | 2023-12-08 20:02 | XMS_ITS | Encounter Summary ---
Author Organization [facility] [place] [address] Care Team Providers Care Special Agent Secret Service Name Role Phone Marck Brody DO Primary Care Provider [phone] Encounter Details Date Type Department Care Team (Late st Contact Info) Description 08/12/2020 Telephone [place] [phone] Fabiola Gagnon Social History Tobacco Use Types Packs/Day Years [...] encounter Miscellaneous Notes * Telephone Encounter - Fabiola Gagnon - 08/12/2020 8:21 AM EDT Theresa called and wanted to see if she still needs a surgery and if so would it be less invasive than talked about? I made her aware that FARRUKH was not in until August 23, she is in no hurry and I did suggest she make an appointment so he can check on her as well and discuss another surgery plan if one is needed. She was happy with this and said she is still interested in having him call her when he gets back. Maybe there is no surgery needed for now as she is feeling / doing better. documented in this encounter Plan of Treatment Not on file documented as of this encounter Visit Diagnoses Not on filedocumented in this encounter Care Teams Special Agent Secret Service Relationship Specialty Start Date End Date Marck Brody DO [address] [place] [address] [facility] [facility] [address] [place] [address] PCP - General 02/08/10 10/12/21 documented as of this encounter
--- OUTSIDE RECORDS SUMMARY | 2023-12-08 20:02 | XMS_ITS | Encounter Summary ---
[place] [address] Care Team Providers Care Manager Primary Care Name Role Phone Marck Brody DO Primary Care Provider Encounter Details Date Type Department Care Team (Late st Contact Info) Description 02/16/2021 Orders [place] [phone] Octavia Abreu RN Xerosis of skin; Eczema, unspecified type; Thrush Social History Tobacco Use Types Packs/Day [...] disease of sebaceous glands Eczema, unspecified type Thrush Candidiasis of mouth documented in this encounter Care Teams Manager Primary Care Relationship Specialty Start Date End Date Marck Brody DO [address] [place] [address] PCP - General 02/08/10 10/12/21 documented as of this encounter
--- OUTSIDE RECORDS SUMMARY | 2023-12-08 20:02 | XMS_ITS | Encounter Summary ---
Author Organization [facility] [place] [address] Care Team Providers Care Distribution Field Technician Name Role Phone Marck Brody DO Primary Care Provider Reason for Referral * Diagnostic Test (Routine) - Closed Specialty Diagnoses / Procedures Referred By Contac t Referred To Contact Radiology Diagnoses Cervical adenopathy H/O tongue cancer Procedures NM PET CT Standard Plus Head and Neck NM Byrd PET CT Standard Plus Head and Neck NM PET CT Standard Plus Head and Neck Roberth Lee MD [facility] [place] [address] [place] [address] Referral ID Status Reason Start Date Expiration Date V isits Requested Visits Authorized [id number] Closed Specialty Service Requested 01/21/2021 03/21/2021 1 1 Reason for Visit * Diagnostic Test (Routine) - Closed Specialty Diagnoses / Procedures Referred By Contac t Referred To Contact Radiology Diagnoses Cervical adenopathy H/O tongue cancer Procedures NM PET CT Standard Plus Head and Neck NM Byrd PET CT Standard Plus Head and Neck NM PET CT Standard Plus Head and Neck Roberth Lee MD [facility] [place] [address] [place] [address] Referral ID Status Reason Start Date Expiration Date V isits Requested Visits Authorized [id number] Closed Specialty Service Requested 01/21/2021 03/21/2021 1 1 Encounter Details Date Type Department Care Team (Latest Contact Info) Description 02/07/2021 7:16 AM EST Hospital En[place] [address] Roberth Lee MD [facility] [address] [place] [address] Cervical adenopathy; H/O tongue cancer Discharge Disposition: Home Social History Tobacco [...] mouth daily. 90 tablet 3 05/02/2021 06/26/2021 tacrolimus (Protopic) 0.1 % Ointment Apply topically [...] AM EST Cervical adenopathy H/O tongue cancer documented in this encounter Results * NM PET CT Standard Plus Head and Neck (02/07/2021 8:54 AM EST) Anatomical Region Laterality Modality Positron Emissio n Tomography (PET) Impressions 02/07/2021 10:50 AM EST 1. ??Diffusely increased activity along the left posterolateral margin of the remnant tongue muscle, favored to represent diffuse inflammation and may be due to reported caleb infection. Please correlate with clinical exam. 2. ??Small focus of FDG uptake adjacent to surgical clips in the left level 2 region, which may represent a small reactive node due to above-mentioned possible infection. 3. 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 4. ??Non-FDG avid 3.2 cm adnexal cyst. Consider transvaginal ultrasound for further characterization. I have personally reviewed the image(s) and the resident's interpretation and agree with the findings, Steve Henao MD at 02/07/2021 10:50 AM Thank you for letting us participate in the care of this patient. ??If you are a health care provider and have any questions regarding this report, please contact the number below. ??For patients who have questions please contact the health respiratory care specialist that requested your imaging first. ? Narrative 02/07/2021 10:50 AM EST EXAMINATION: NM PET CT STANDARD PLUS HEAD AND NECK CLINICAL HISTORY: 50-year-old female with history of oral cancer with extensive isma metastases status post surgery and chemoradiation who presents with new unexplained pruritus without rash concerning for possible metastases. TECHNIQUE: Following IV injection of 66-kcbmjl-0-deoxyglucose (FDG) a standard uptake of approximately 60 minutes, a noncontrast CT scan followed by a PET scan were acquired from the top of head to mid thighs. The noncontrast CT was used for anatomic localization and photon attenuation correction of the PET scan. Blood glucose level: 87 mg/dL FDG dose: 6.8 mCi COMPARISON: CT face on 01/20/2020 CT neck on 01/21/2018 PET/CT on 07/02/2008 FINDINGS: HEAD/NECK: Status post left-sided modified radical neck [...] per electronic medical record. No significant adenopathy. CHEST: Multiple small FDG avid lymph nodes in the left axilla, consistent with reactive nodes due to recent left arm vaccination (Covid vaccination on 01/16/2021 and influenza vaccination on 02/04/2021). No significant pulmonary nodules. ABDOMEN/PELVIS: Normal activity in all soft tissue regions. No significant adenopathy. Non-FDG avid 3.2 cm right adnexal cyst (axial image 255). SKELETON/EXTREMITIES: No significant osseous abnormalities. Procedure Note Steve Henao MD - 02/07/2021 EXAMINATION: NM PET CT STANDARD PLUS HEAD AND NECK CLINICAL HISTORY: 50-year-old female with history of oral cancer withextensive isma metastases status post surgery and chemoradiation who presents withnew unexplained pruritus without rash concerning for possible metastases. TECHNIQUE: Following IV injection of 95-tviqdh-0-deoxyglucose (FDG) astandard uptake of approximately 60 minutes, a noncontrast CT scan followed by aPET scan were acquired from the top of head to mid thighs. The noncontrast CT wasused for anatomic localization and photon attenuation correction of the PETscan. Blood glucose level: 87 mg/dL FDG dose: 6.8 mCi COMPARISON: CT face on 01/20/2020 CT neck on 01/21/2018 PET/CT on 07/02/2008 FINDINGS: HEAD/NECK: Status post left-sided modified radical neck dissection witharchitectural distortion and multiple left neck dissection surgical clips. Diffusely increased activity along the left posterolateral margin of theremnant tongue muscle (axial images 70 through 74). A small focus of FDG uptake adjacent to surgical clips in the left level2 region (axial image 64). 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 No significant adenopathy. CHEST: Multiple small FDG avid lymph nodes in the left axilla, consistent withreactive nodes due to recent left arm vaccination (Covid vaccination on 01/16/2021nd influenza vaccination on 02/04/2021). No significant pulmonary nodules. ABDOMEN/PELVIS: Normal activity in all soft tissue regions. No significant adenopathy. Non-FDG avid 3.2 cm right adnexal cyst (axial image 255). SKELETON/EXTREMITIES: No significant osseous abnormalities. IMPRESSION 1. Diffusely increased activity along the left posterolateral margin ofthe remnant tongue muscle, favored to represent diffuse inflammation and maybe due to reported caleb infection. Please correlate with clinical exam. 2. Small focus of FDG uptake adjacent to surgical clips in the left level2 region, which may represent a small reactive node due to above-mentioned possible infection. 3. FDG avid sclerotic and lytic changes in the mandibular symphysis andleft mandibular body, consistent with chronic inflammation due toosteoradionecrosis. 4. Non-FDG avid 3.2 cm adnexal cyst. Consider transvaginal ultrasoundfor further characterization. I have personally reviewed the image(s) and the resident's interpretationand agree with the findings, Steve Henao MD at 02/07/2021 10:50 AM Thank you for letting us participate in the care of this patient. If youare a health care provider and have any questions regarding this report,please contact the number below. For patients who have questions please contactthe health respiratory care specialist that requested your imaging first. Roberth Lee MD IMG PET ORDERABLES documented in this encounter Visit Diagnoses Diagnosis Cervical adenopathy Enlargement of lymph nodes H/O tongue cancer Personal history of malignant neoplasm of tongue documented in this encounter Administered Medications Inactive Administered Medications - up to 3 most recent administrations Medication Order MAR Action Action Date Dose Rate Site fludeoxyglucose (F-18) FDG injection 0-20 mCi 0-20 mCi, Intravenous, ONCE PRN, 1 dose, Starting on Sun02/07/21 at 0744, Until Sun02/07/21 at 0737, Per Protocol, Radiology Contrast, Routine Given 02/07/2021 7:37 AM EST 6.8 mCi documented in this encounter Care Teams Distribution Field Technician Relationship Specialty Start Date End Date Marck Brody DO [facility] [address] [place] [address] PCP - General 02/08/10 10/12/21 documented as of this encounter
--- OUTSIDE RECORDS SUMMARY | 2023-12-08 20:02 | XMS_ITS | Encounter Summary ---
Author Organization [facility] [place] [address] Care Team Providers Care Commanding Officer Traffic Division Name Role Phone Marck Brody DO Primary Care Provider Reason for Visit * Reason Onset Date Comments Medication Refill 07/09/2021 Encounter Details Date Type Department Care Team (Late st Contact Info) Description 07/09/2021 Refill [place] [phone] Roberth Lee MD [facility] [place] [address] Thrush Social History Tobacco Use Types Packs/Day [...] mouth documented in this encounter Care Teams Commanding Officer Traffic Division Relationship Specialty Start Date End Date Marck Brody DO [address] [place] [address] PCP - General 02/08/10 10/12/21 documented as of this encounter
--- OUTSIDE RECORDS SUMMARY | 2023-12-08 20:02 | XMS_ITS | Encounter Summary ---
Author Organization [facility] [place] [address] Care Team Providers Care Roller Mechanic Name Role Phone Marck Brody DO Primary Care Provider Reason for Visit * Reason Onset Date Comments Medication Refill 02/16/2021 Encounter Details Date Type Department Care Team (Late st Contact Info) Description 02/16/2021 Refill [place] [phone] Roberth Lee MD [facility] [place] [address] Thrush Social History Tobacco Use Types Packs/Day [...] mouth documented in this encounter Care Teams Roller Mechanic Relationship Specialty Start Date End Date Marck Brody DO [address] [place] [address] PCP - General 02/08/10 10/12/21 documented as of this encounter
--- OUTSIDE RECORDS SUMMARY | 2023-12-08 20:02 | XMS_ITS | Encounter Summary ---
Author Organization [facility] [address] Care Team Providers Care Brick Extruder Operator Name Role Phone Marck Brody DO Primary Care Provider Encounter Details Date Type Department Care Team (Late st Contact Info) Description 07/13/2020 Telephone [place] [address] Juanita Walters RN Social History [...] Encounter - Juanita Walters RN - 07/13/2020 9:43 AM EDT MTCB to relay message from Dr. Lee: Can you let her know that her needle biopsy was negative Also, I sent her a letter about this but let her know that I called in a different antibiotic for her jaw infection after discussing with Dr. Ng. ??Would like to try this first before any surgery. Call back number left. documented in this encounter Plan of Treatment Not on file documented as of this encounter Visit Diagnoses Not on filedocumented in this encounter Care Teams Brick Extruder Operator Relationship Specialty Start Date End Date Marck Brody DO [address] [place] [address] PCP - General 02/08/10 10/12/21 documented as of this encounter
--- OUTSIDE RECORDS SUMMARY | 2023-12-08 20:02 | XMS_ITS | Encounter Summary ---
Author Organization [facility] Address [facility] [place] [address] Care Team Providers Care Community Specialist Name Role Phone Ronn, Marck VALENTIN Primary Care Provider [phone] Reason for Visit * Reason Comments Follow-up Encounter Details Date Type Department Care Team (Latest Contact Info) Description 03/21/2021 4:30 PM EST TH Visit (TeleHealth) Dermatology at [facility] [address] [place] [phone] Areli Davenport MD [facility] [address] [address] Seborrheic dermatitis Social History Tobacco Use Types Packs/Day Years [...] as of this encounter Progress Notes * Areli Davenport MD - 03/21/2021 4:30 PM EST Images from the original note were not included. DEPARTMENT OF DERMATOLOGY Medical Dermatology Clinic Provider: ARELI DAVENPORT MD Preferred name Theresa Preferred contact method for results [x] Phone (Cell) [x] MyD-H [] Letter Permission to leave detailed message Yes Permission to discuss care with (Junior) Past Medical History Date, location, treatment Melanoma No DN No SCC No BCC No [place] No UV exposure & protection + History of tanning bed use (2x) Other relevant past medical history Rosacea, eczema ?? 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 established patient who I am speaking with today via TeleHealth in follow up for pruritus and xerosis. Reports itch is much improved with some modifications she made (see my- patient message). Continues to have a scaly plaque on scalp and itchy ears. Patient has been using T-ryne shampoo to scalp and peppermint tea which patient feels hasbeen working well, but may need something else. Last FSE: N/A Last visit at [facility] D[facility]: 12/27/2020 Last visit with this provider: 12/27/2020 Medications: Reviewed in eD-H Allergies: Reviewed in eD-H Skin Examination: TeleHealth examination: Phone call. No exam Assessment/Plan: A. Patient describe seborrheic dermatitis on scalp, face and ears. - Continue T-Ryne qam; later leave on 3-5 minutes then rinse out - Start Rx: fluocinolone oil nightly for up to 2 weeks then 1-3 times week for maintenance - Start Rx: ketoconazole 2% cream twice daily to affected areas on face/ears prn rash Other: - N/A RTC: 04/18/21 for pruritus follow up [] Note routed to medical unit secretary [] Recall placed in scheduling system [x] Appointment scheduled previously FELIX Ledezma has performed the documentation for this encounter in the presence of and acting as a scribe for ARELI DAVENPORT MD. I performed the above scribed service and agree with the accuracy of the documentation in this encounter. Reviewed and signed by: ARELI DAVENPORT MD Dermatology [facility] documented in this encounter Plan of Treatment Not on file documented as of this encounter Visit Diagnoses Diagnosis Seborrheic dermatitis Seborrheic dermatitis, unspecified documented in this encounter Care Teams Community Specialist Relationship Specialty Start Date End Date Marck Brody DO [address] [place] [address] PCP - General 02/08/10 10/12/21 documented as of this encounter
--- OUTSIDE RECORDS SUMMARY | 2023-12-08 20:02 | XMS_ITS | Encounter Summary ---
Author Organization [facility] Address [facility] [place] [address] Care Team Providers Care Mortgage Sales Manager Name Role Phone Marck Brody DO Primary Care Provider Encounter Details Date Type Department Care Team (Late st Contact Info) Description 12/14/2020 Orders [place] [address] Roberth Lee MD [facility] [place] [address] Social History Tobacco Use Types Packs/Day Years [...] on filedocumented in this encounter Care Teams Mortgage Sales Manager Relationship Specialty Start Date End Date Marck Brody DO [address] [place], [place] [id number] PCP - General 02/08/10 10/12/21 documented as of this encounter
--- OUTSIDE RECORDS SUMMARY | 2023-12-08 20:02 | XMS_ITS | Encounter Summary ---
[place] [address] Care Team Providers Care Motor Vehicle Licence Examiner Name Role Phone Marck Brody DO Primary Care Provider Encounter Details Date Type Department Care Team (Latest Contact Info) Description 10/04/2020 Orders [place] [phone] Juanita Walters RN Osteoradionecrosis of jaw; Thrush Social History Tobacco Use Types Packs/Day [...] jaw Other specified disease of the jaws Thrush Candidiasis of mouth documented in this encounter Care Teams Motor Vehicle Licence Examiner Relationship Specialty Start Date End Date Marck Brody DO [address] [place] [address] PCP - General 02/08/10 10/12/21 documented as of this encounter
--- OUTSIDE RECORDS SUMMARY | 2023-12-08 20:02 | XMS_ITS | Encounter Summary ---
Author Organization [facility] Address [facility] [place] [address] Care Team Providers Care Maintenance Helper Utility Engineer Name Role Phone Marck Brody DO Primary Care Provider [phone] Reason for Visit * Reason Comments Pruritus * Consultation (Routine) - Closed Specialty Diagnoses / Procedures Referred By Contgumaro cuevsa Referred To Contact Dermatology Diagnoses H/O tongue cancer Pruritus Roberth Lee MD [facility] [address] [facility] [address] [place] [address] Referral ID Status Reason Start Date Expiration Date V isits Requested Visits Authorized [id number] Closed Consult, Test & Treat 10/04/2020 10/04/2021 1 1 Encounter Details Date Type Department Care Team (Late st Contact Info) Description 12/27/2020 10:15 AM EDT Office Visit Dermatology at [facility] [address] [place] [address] Areli Davenport MD [facility] DR RASHEED [place] [address] Xerosis of skin; Eczema, unspecified type Social [...] this encounter Patient Instructions * Patient Instructions* Flower Wahl - 12/27/2020 10:15 AM EDT Sensitive Skin Care You have been diagnosed with a condition that requires a sensitive skin care regimen. It is very important to follow this plan as outlined below, even if skin is good to prevent it from becoming bad. Stop ALL current personal care products that touch your skin, including soap, body wash, shampoo and conditioner, moisturizer, sunscreen, make up, perfume, nail mohawk, laundry soap and fabric softener. Use ONLY the following personal care products, which are recommended by our clinic because they have been extensively tested, are least likely to irritate your skin, and are free of alcohol, dyes andfragrances: ?? Soap: Dove unscented bar soap, Vanicream bar soap ?? Facial cleanser: CeraVe Foaming Facial Cleanser, CeraVe Hydrating Cleanser, Cetaphil ?? Shampoo and conditioner: Free & Clear shampoo and conditioner ?? Moisturizer: CeraVe cream, CeraVe lotion, CeraVe lite lotion, Vanicream cream, Vaseline ?? Sunscreen: Blue Lizard SPF 30, CeraVe SPF 30, Cotz SPF 40, Vanicream SPF 30 ?? Laundry detergent: All Free & Clear ?? Fabric softener: Do NOT use fabric softener or dryer sheets Contact information: On weekdays (8 am to 5 pm), please call the clinic at [phone]. After 5 pm, and on weekends and holidays, please call the hospital at [phone] and ask for the Compliance Engineer Accounting Associate. 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 new patient, referred to the clinic at the request of Roberth Lee MD, for evaluation and treatment of chronic pruritus. Patient reports the following history: - Onset of symptoms in ~July 2019. - Around that time, she was bitten/stung multiple times on her upper back and shoulders; reports having an exuberant reaction with severe itching and swelling. - Known allergy to birch pollen; endorses mild seasonal allergies. - Affected areas tend to be the head, neck, shoulders; describes severe itch and associated burningsensation. Today, reports symptoms are 9 out of 10. - Has tried oral Benadryl and Claritin; states that these cause her to feel depressed and she prefers to avoid. - Otherwise, has self-treated with Cortisone 10, lotion and hand cream (e.g., Neutrogena Polish Formula). - Recently diagnosed by pediatric cns with blepharitis; using baby shampoo and Systane eye drops. - Working with endocrine to get thyroid regulated - History of tongue cancer Medications: Reviewed in eD-H Allergies: Reviewed in eD-H Skin Examination: A focused skin examination of the scalp, neck, shoulders, face, and chest, significant for the following: Assessment/Plan: A. Eczema and Xerosis - Some areas of xerosis and eczema on the neck and shoulders. - Recommended sensitive skin care, Free & Clear detergent. - Recommended dilute vinegar spritzes (1 part vinegar, 6 parts water) twice daily. - Recommended an acidified moisturizer, such as CeraVe SA cream, twice daily. - Recommended cool/lukewarm showers. - Discussed that thyroid issues can cause xerosis and pruritus. - Itch without a rash (as she is describing intermittently on extremities) is concerning for occultmalignancy, such as lymphoma or recurrence of her known cancer. If not improved with changes to herskin regimen, can consider further workup for systemic causes with her PCP and/or patch testing. - Start Rx triamcinolone (Kenalog) 0.1% cream: Apply topically to affected area(s) on the trunk andextremities twice daily for up to 14 days per month. Counseled side effects: skin thinning, stretchmarks. - Start Rx pimecrolimus (Elidel) 1% cream: Apply topically to affected areas on the face twice daily as needed. Other: - Reviewed and/or interpreted test results. RTC: 1 month for pruritus follow up [x] Note routed to hospital secretary [] Recall placed in scheduling system [] Appointment scheduled before exiting Flower Wahl and Aurea Leroy, [facility] have performed the documentation for this encounter inthe presence of and acting as scribes for ARELI DAVENPORT MD. I performed the above scribed service and agree with the accuracy of the documentation in this encounter. Reviewed and signed by: ARELI DAVENPORT MD Dermatology [facility] documented in this encounter Plan of Treatment Not on file documented as of this encounter Visit Diagnoses Diagnosis Xerosis of skin Other specified disease of sebaceous glands Eczema, unspecified type documented in this encounter Care Teams Maintenance Helper Utility Engineer Relationship Specialty Start Date End Date Marck Brody DO [address] [place] [address] PCP - General 02/08/10 10/12/21 documented as of this encounter
--- OUTSIDE RECORDS SUMMARY | 2023-12-08 20:02 | XMS_ITS | Encounter Summary ---
Author Organization [facility] [place] [address] Care Team Providers Care Web Worker Name Role Phone Marck Brody DO Primary Care Provider [phone] Encounter Details Date Type Department Care Team (Late st Contact Info) Description 06/03/2020 Telephone [place] [address] Maged Smith RN Social History [...] Telephone Encounter - Maged Smith RN - 06/03/2020 4:02 PM EDT Theresa called because she has been taking the antibx that was prescribed by , but feels like she has thrush AEB redness, difficult to eat and a cottony feeling in her mouth. She wonders if she needs Nystatin for this infection. I spoke with Dr. Lee's nurse and sent Nystatin to Theresa's local pharmacy. She is happy with this plan and will call us if she has any other problems. BETH OneillN, signals collection technician Triage Nurse documented in this encounter Plan of Treatment Not on file documented as of this encounter Visit Diagnoses Not on filedocumented in this encounter Care Teams Web Worker Relationship Specialty Start Date End Date Marck Brody DO [address] [place] [address] [address] [facility] [address] [place] [address] PCP - General 02/08/10 10/12/21 documented as of this encounter
--- OUTSIDE RECORDS SUMMARY | 2023-12-08 20:02 | XMS_ITS | Encounter Summary ---
Author Organization [facility] [place] [address] Care Team Providers Care R D Manager Name Role Phone Marck Brody DO Primary Care Provider Encounter Details Date Type Department Care Team (Late st Contact Info) Description 09/06/2020 9:00 AM EDT Office [place] [phone] Roberth Little MD [facility] [place] [address] H/O tongue cancer; Osteonecrosis of mandible Social [...] - - Weight 45.4 kg (100 lb) 09/06/2020 8:59 AM EDT Height 157.5 cm (5' 2) 09/06/2020 8:59 AM EDT Body Mass Index 18.29 09/06/2020 8:59 AM EDT documented in this encounter Progress Notes * Roberth Little MD - 09/06/2020 9:00 AM EDT [facility] OTOLARYNGOLOGY HEAD AND NECK TUMOR CLINIC FOLLOW UP NOTE Theresa Hollis is a 50 y.o. female followed for: Primary site: Left lateral tongue Stage: [id number] Surgery(ies): 10/31/06 - Hemiglossectomy, left neck dissection 1-5, skin graft, allograft Radiation: TREATMENT STARTED: 11/28/06 TREATMENT COMPLETED: 01/14/07 TREATMENT: The total maximum dose was 6600 cGy in 33 fractions. Volume reductions were instituted at 5400 cGy in 30 fractions &??6000 cGy in 30 fractions. Chemotherapy: Concurrent cisplatin?? New issues since last visit: She comes in to discuss drainage under chin. She took the levaquin - had palpitations with this butdid diminish the drainage. Has been on Augmentin more recently and drainage has been very stable. She is concerned about moving forward with any surgical intervention. Also continues to complain about excessive mucous production. PROBLEM LIST Patient Active Problem List Diagnosis [...] to Visit Medication Sig Dispense Refill ??? [DISCONTINUED] amoxicillin-clavulanate (Augmentin) 875-125 mg Tablet TAKE ONE TABLET BY MOUTH TWICE A DAY FOR 10 DAYS 20 tablet 0 ??? mupirocin (BACTROBAN) 2 % Ointment Apply topically 3 times daily. (Patient taking differently: Apply topically as needed.) 22 g 1 ??? ojosxeij-sonjuzimmh-zrgyspise (NEOSPORIN) 3.5mg-400 unit- 5,000 unit/gram Ointment Apply 1 eachtopically as needed. ??? acetaminophen (Tylenol) 160 mg/5 mL Suspension [...] Reported on 07/08/2020) 18 tablet 0 ??? nystatin (Mycostatin) 100,000 unit/mL Suspension Take 5 mLs by mouth 4 times daily. (Patient not taking: Reported on 06/14/2020) 60 mL 0 ??? clotrimazole (LOTRIMIN) 1 % Cream Apply topically 2 times daily. ??? vitamin E (vitamin E) 400 unit [...] EXAMINATION Wt Readings from Last 3 Encounters: 09/06/20 45.4 kg (100 lb) 07/08/20 46.3 kg (102 lb) 06/14/20 43.1 kg (95 lb) Exam limited to her chin which demonstrates no active drainage or fluctuance. PROCEDURES None REVIEW OF IMAGES CT from last fall reviewed which shows cortical erosion of her mandible over the area of drainage Cultures reviewed with no specific organism ASSESSMENT/RECOMMENDATIONS ORN mandible Will try low dose augmentin as she appears to tolerate this well. Does not wish to pursue any surgical intervention for now and I think that is reasonable Mucous production Try alkalol rinse. Keep food diary to see what might be triggering more mucous production. Follow up in 6 months Time spent in counseling and discussion of the above: 15 minutes I appreciate the opportunity to be involved in Ms. Hollis's care. ROBERTH LITTLE MD 09/06/2020 documented in this encounter Plan of Treatment Not on file documented as of this encounter Visit Diagnoses Diagnosis H/O tongue cancer Personal history of malignant neoplasm of tongue Osteonecrosis of mandible Aseptic necrosis of other bone site documented in this encounter Care Teams R D Manager Relationship Specialty Start Date End Date Marck Brody DO [address] [place] [address] PCP - General 02/08/10 10/12/21 documented as of this encounter
--- OUTSIDE RECORDS SUMMARY | 2023-12-08 20:02 | XMS_ITS | Encounter Summary ---
Author Organization [facility] [place] [address] Care Team Providers Care Refuge Manager Name Role Phone Marck Brody DO Primary Care Provider [phone] Encounter Details Date Type Department Care Team (Latest Contact Info) Description 06/14/2020 10:00 AM EDT Office [place] [phone] Roberth Little MD [facility] [place] [address] Osteonecrosis of mandible; H/O tongue cancer; Cervical adenopathy Social History [...] - - Weight 43.1 kg (95 lb) 06/14/2020 9:48 AM EDT Height 157.5 cm (5' 2) 06/14/2020 9:48 AM EDT Body Mass Index 17.38 06/14/2020 9:48 AM EDT documented in this encounter Progress Notes * Roberth Little MD - 06/14/2020 10:00 AM EDT [facility] OTOL[facility] HEAD AND NECK TUMOR CLINIC FOLLOW UP NOTE Theresa Hollis is a 49 y.o. female followed for: Primary site: Left lateral tongue Stage: [id number] Surgery(ies): 10/31/06 - Hemiglossectomy, left neck dissection 1-5, skin graft, allograft Radiation: TREATMENT STARTED: 11/28/06 TREATMENT COMPLETED: 01/14/07 TREATMENT: The total maximum dose was 6600 cGy in 33 fractions. Volume reductions were instituted at 5400 cGy in 30 fractions &??6000 cGy in 30 fractions. Chemotherapy: Concurrent cisplatin?? New issues since last visit: She is still having drainage from her chin region. Stopped taking PCN due to thrush. Was able to get her new bridge and she is very happy about this. PROBLEM LIST Patient Active Problem List Diagnosis [...] to Visit Medication Sig Dispense Refill ??? mupirocin (BACTROBAN) 2 % Ointment APPLY TO AFFECTED AREA S THREE TIMES A DAY ??? oaniwhbk-bfpkgdggxu-khukaqzai (NEOSPORIN) 3.5mg-400 unit- 5,000 unit/gram Ointment Apply 1 eachtopically. ??? acetaminophen (Tylenol) 160 mg/5 mL Suspension [...] Reported on 06/14/2020) 60 mL 0 ??? penicillin v potassium (VEETID) 500 mg Tablet Take 1 tablet by mouth 3 times daily. (Patient not taking: Reported on 06/14/2020) 30 tablet 0 ??? clotrimazole (LOTRIMIN) 1 % Cream [...] EXAMINATION Wt Readings from Last 3 Encounters: 06/14/20 43.1 kg (95 lb) 05/03/20 43.4 kg (95 lb 9.6 oz) 03/22/20 43.1 kg (95 lb) General: Well developed, no distress Head/face: Normocephalic, atraumatic Neck: 1 cm level II adenopathy, mobile, right side - unchanged since prior. Post treatment changes to theleft neck. Small drainage site under the left chin. This was gently debrided with curette and culture taken. Resp: Post glossectomy speech, no stridor, normal respirations. Skin: Normal skin survey of the head and neck. MSK: No trismus, normal neck range of motion Neuro: AxOx3; CN II-XII is grossly intact Psych: Normal mood and affect. Responds appropriately to questions. PROCEDURES None REVIEW OF IMAGES None ASSESSMENT/RECOMMENDATIONS Persistent drainage. Office debridement today and culture taken Continue bactroban, no PO antibiotics Follow up in 1 month - if no improvement plan for operative debridement. Will also need to address the right level II node - FNA vs excision. Patient is agreeable with the plan. Follow up in 1 month. I appreciate the opportunity to be involved in Ms. Hollis's care. ROBERTH LITTLE MD 06/14/2020 documented in this encounter Plan of Treatment Not on file documented as of this encounter Procedures Procedure Name Priority Date/Time Associated Diagnosis Comments HC GRAM STAIN FOR BACTERIA Routine 06/14/2020 10:27 AM EDT Osteonecrosis of mandible H/O tongue cancer ABSCESS/WOUND ASPIRATE CULTURE Routine 06/14/2020 10:27 AM EDT Osteonecrosis of mandible H/O tongue cancer documented in this encounter Results * Abscess/Wound Aspirate Culture (06/14/2020 10:27 AM EDT) Abscess/Wound Aspirate Culture Few mixed bacterial morphotypes suggestive of normal cutaneous parisa [facility] Gram Stain No Neutrophils seen. No microorganisms seen. [facility] Drainage fluid specimen (specimen) [facility]UCTURE / Unknown 06/14/2020 10:27 AM EDT 06/14/2020 10:48 AM EDT Comment:NOT ON ESWAB TRANSPO RT Narrative Resulting Agency Comment Spec In Lab Roberth Little MD MICROBIOLOGY - GEN ERAL ORDERABLES [facility] [place] [address] documented in this encounter Visit Diagnoses Diagnosis Osteonecrosis of mandible Aseptic necrosis of other bone site H/O tongue cancer Personal history of malignant neoplasm of tongue Cervical adenopathy Enlargement of lymph nodes documented in this encounter Care Teams Refuge Manager Relationship Specialty Start Date End Date Marck Brody DO [address] [place] [address] [address] [place] [address] PCP - General 02/08/10 10/12/21 documented as of this encounter
--- OUTSIDE RECORDS SUMMARY | 2023-12-08 20:02 | XMS_ITS | Encounter Summary ---
Author Organization [facility] [place] [address] Care Team Providers Care Fruit Culler Name Role Phone Marck Brody DO Primary Care Provider [phone] Reason for Visit * Reason Comments Skin Check Encounter Details Date Type Department Care Team (Late st Contact Info) Description 04/29/2021 3:30 PM EST Office Visit Dermatology at [address] [address] Alex Hendrix MD [address] [facility] [place] [address] Seborrheic dermatitis; Xerosis of skin; Eczema, unspecified type Social [...] as of this encounter Progress Notes * Alex Hendrix MD - 04/29/2021 3:30 PM EST Problem: New patient, initial visit, skin checkup Theresa is a 50-year-old woman who has had significant ENT surgery for cancer, and since September 2020hashad significant pruritus of the scalp and the torso. She was seen by Dr. Areli Davenport at [facility] in December 2020 and sensitive skin care precautions were discussed and initiated as well as recommending the use of triamcinolone cream to affected areas and Elidel cream for the face as needed. Patient has very sensitive skin and always has tended to have this, she states. She has restless legs she states. There is no family history of psoriasis. She has had scalp issues in the past and sensitive skinissues since childhood. Currently she is using T. Ryne shampoo and Free and clear conditioners. She has a peppermint lotion which seems to help to the itchy areas. She is doing triamcinolone cream forpatches of eczema on her body. 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 Physical examination reveals a pleasant 50-year-old woman who has papules a spongiotic dermatitis of the left superior shoulder but a clear examination of the face and the scalp on the torso. She states that the dermatitis is much better now than what it was just a few months ago. Assessment and plan: Pruritus, intermittent with localized areas of spongiotic dermatitis and seborrheic dermatitis 1. Patient has been through extensive stress both with school issues and the Covid lockdown, as well as her ENT surgery which has made her work as a teacher significantly more difficult. 2. She does seem to have improved significantly having after starting Dr. Ortiz recommendations and finding some useful lotions on her own as well. 3. Would recommend that she continue the peppermint lotion for dry skin, and triamcinolone cream for patchy areas of eczema and pruritus. I described how stress can trigger and exacerbate pruritus 4. Return to clinic as needed for new lesions concerns. Patient agrees with the above outlined plan CC: DO Roberth Madden MD documented in this encounter Plan of Treatment Not on file documented as of this encounter Visit Diagnoses Diagnosis Seborrheic dermatitis Seborrheic dermatitis, unspecified Xerosis of skin Other specified disease of sebaceous glands Eczema, unspecified type documented in this encounter Care Teams Fruit Culler Relationship Specialty Start Date End Date Marck Brody DO [address] [place] [address] [address] [place] [address] PCP - General 02/08/10 10/12/21 documented as of this encounter
--- OUTSIDE RECORDS SUMMARY | 2023-12-08 20:03 | XMS_ITS | Encounter Summary ---
[place] [address] Care Team Providers Care Research And Development Scientist Name Role Phone Marck Brody DO Primary Care Provider Encounter Details Date Type Department Care Team (Late st Contact Info) Description 11/11/2019 [place] [address] Lesly Kaur Social History Tobacco Use Types Packs/Day Years [...] Miscellaneous Notes * Telephone Encounter - Jacqueline Brar - 11/11/2019 9:45 AM EDT Telephone call placed/received to schedule covid 19 testing with patient. Ordering provider: dr. Ng Testing Facility: [facility] Date of Testin/28 Time of Testin:40am Symptoms: na Is this the first test for Covid 19 Yes If no, please list date of previous test, result, and type of test (Molecular, Antigen, Antibody orunknown): Resides in congregate care setting No Employee or Household Member of Employee No Healthcare Worker No * Telephone Encounter - Lesly Roche - 11/11/2019 9:00 AM EDT Left message to schedule preop covid 19 test for surgery 11/16 documented in this encounter Plan of Treatment Not on file documented as of this encounter Visit Diagnoses Not on filedocumented in this encounter Care Teams Research And Development Scientist Relationship Specialty Start Date End Date Marck Brody DO [address] [place] [address] PCP - General 02/08/10 10/12/21 documented as of this encounter
--- OUTSIDE RECORDS SUMMARY | 2023-12-08 20:03 | XMS_ITS | Encounter Summary ---
Author Organization Formerly [facility] [place] [address] Care Team Providers Care Scientific Diver Name Role Phone Marck Brody DO Primary Care Provider Reason for Visit * Reason Comments On Treatment Visit HBO #27 Encounter Details Date Type Department Care Team (Latest Contact Info) Description 11/27/2019 6:56 AM EDT - 11/27/2019 11:59 PM EDT Hospital En[facility] [place] [phone] Osteoradionecrosis of jaw Discharge Disposition: Home Social [...] Sign Reading Time Taken Comments Blood Pressure 114/86 11/27/2019 9:08 AM EDT Pulse 73 11/27/2019 9:08 AM EDT Temperature 36.5 ??C (97.7 ??F) 11/27/2019 7:07 AM ED T Respiratory Rate 16 11/27/2019 7:07 AM EDT Oxygen Saturation - - Inhaled Oxygen Concentration - - Weight - - Height - - Body Mass Index - - documented in this encounter Medications at Time of Discharge Medication Sig Dispensed Refills Start Date End Date ibuprofen (ADVIL;MOTRIN) 100 mg/5 mL Suspension Take by mouth every 4 hours as needed for Fever. chlorhexidine (Peridex) 0.12 % Mouthwash Take 15 mLs by mouth 2 times daily for 21 days. 210 mL 3 11/17/2019 12/08/2019 amoxicillin-clavulana te (Augmentin) 875-125 mg Tablet Take 1 tablet by mouth 2 times daily. Ok to crush and place in applesauce 20 tablet 11/17/2019 12/24/2019 clindamycin (CLEOCIN) 300 mg Capsule Take 1 capsule by mouth 3 times daily. 30 capsule 11/17/2019 03/22/2020 vitamin E (vitamin E) 400 unit Capsule Take 400 Units by mouth daily. Take daily while receiving hyperbaric treatments 11/01/2020 acetaminophen (Tylenol) 160 mg/5 mL Suspension Take 15 mg/kg/dose by mouth as needed for Fever. 09/08/2022 levothyroxine (Synthroid) 88 mcg Tablet Take 112 mcg by mouth daily. 11/01/2020 calcium carbonate (TUMS) 200 mg calcium (500 mg) Tablet, Chewable Take 2 tablets by mouth daily. 03/22/2020 documented as of this encounter Progress Notes * Lucie Quigley RN - 11/27/2019 7:24 AM EDT INTERVAL HISTORY: Patient denies any discomfort, changes, issues, complaints. Neurological Status: A+O Respiratory Status: easy respirations Visual Change: No new reported. Headache: denies Cough: Occasional cough to clear secretions, patient's baseline. 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 100% cotton clothing in place. Patient checked for non-approved chamber items. Ears checked. No redness noted. View of tympanic membranes obstructed by wax both ears. Patient assessed and met criteria to proceed with hyperbaric treatment. Safety checklist completed with patient. Grounding strap applied and grounding verified, patient placed in chamber, communications checked. Tamia Catalan RN / Laura Quigley RN administered the treatment and monitored the patient. HYPERBARIC TREATMENT: Number - 27 Planned number of treatments - 30 Compression Rate: 1.2 - 1.7 psi/min Decompression Rate: 2.5 psi/min TROY - 2.4 Start Compression Reach Treatment Pressure - TROY Air Break Start Air Break Completed Start Decompression Treatment Completed [id number] 0822 0857 0905 Sechrist Chamber # 1 Encouraged patient to adjust position during procedure. Clinical Practice Guideline for Hyperbaric Oxygen Therapy Prevent and manage for potential problems related to 1.Barotrauma, 2.oxygen toxicity, and 3.Pneumothorax. 4. Situational Problems Assessed: ALL (Barotrauma, Oxygen Toxicity, Pneumothorax, Situational) Problems Present: None, (Barotrauma, Oxygen Toxicity, Pneumothorax, Situational) No issues or complaints during or after treatment. Interventions: Per Clinical Practice Guidelines for Hyperbaric Oxygen Therapy through [facility]. No interventions required today. Patient alert and oriented. Ambulating with steady gait. Patient assessed and found appropriate to leave the Hyperbaric area at the conclusion of today???s session. Continue HBOT as planned. Next treatment scheduled for 11/28/19. documented in this encounter Plan of Treatment Not on file documented as of this encounter Visit Diagnoses Diagnosis Osteoradionecrosis of jaw Other specified disease of the jaws documented in this encounter Care Teams Scientific Diver Relationship Specialty Start Date End Date Marck Brody DO [address] [place] [address] PCP - General 02/08/10 10/12/21 documented as of this encounter
--- OUTSIDE RECORDS SUMMARY | 2023-12-08 20:03 | XMS_ITS | Encounter Summary ---
Author Organization [facility] [address] Care Team Providers Care Lens Molding Equipment Operator Name Role Phone Marck Brody DO Primary Care Provider [phone] Reason for Visit * Reason Comments Follow-up Boil on chin Encounter Details Date Type Department Care Team (Late st Contact Info) Description 01/05/2020 9:00 AM EDT Office Visit [place] [phone] Keyur Ng MD [facility] [place] [address] Status post surgery; Osteoradionecrosis of jaw Social History Tobacco Use [...] Progress Notes * Keyur Ng MD - 01/05/2020 9:00 AM EDT Images from the original note were not included. Oral & Maxillofacial Surgery Lesion Follow Up Tehresa Hollis returns for follow up of Osteoradionecrosis of jaw 6 weeks s/p debridement and extraction of ORN mandible Interval History: Theresa was questioned with regards to new lumps or bumps,intra or extraoral drainage, difficulty chewing or swallowing, oral bleeding, dysarthria or altered oral sensation from priorexamination. Weight and appetite were evaluated and pertinent interval changes include: ?? Boil on chin ?? Went to urgent care was prescribed ABX, Topical antifungal ?? Cultures negative per her Review of systems noted above were otherwise negative. Clinical Pertinent findings include: ?? Red ulceration anterior mandible ?? No purulence expressed ?? Difficult to examine but defect in mandible has area of mucosalization ?? No purulence noted ?? No sign of fracture on bimanual manipulation Pertinent imaging studies: Panorex taken today No obvious sign of fracture but external chin chinyere lines up with the bony radiolucency at the inferior boarder Impression: 6 weeks status post debridement of mandible after HBO and extractions Recommendations and Plan: ?? consider Infectious disease consult and CT scan (to rule out fracture) ?? change antibiotics to: Flagyl + penicillin ?? discuss with Dr. Donis as well ?? She cannot tolerate Peridex but will continue to irrigate with saline and also try h202 Follow up in 6 weeks routinely but if area worsens she will contact us to be seen earlier Keyur Ng MD, DMD, FACS documented in this encounter Plan of Treatment Not on file documented as of this encounter Visit Diagnoses Diagnosis Status post surgery Osteoradionecrosis of jaw Other specified disease of the jaws documented in this encounter Care Teams Lens Molding Equipment Operator Relationship Specialty Start Date End Date Marck Brody DO [address] [facility] [address] [place] [address] PCP - General 02/08/10 10/12/21 documented as of this encounter
--- OUTSIDE RECORDS SUMMARY | 2023-12-08 20:03 | XMS_ITS | Encounter Summary ---
Author Organization [facility] [place] [address] Care Team Providers Care Electrotype Caster Name Role Phone Marck Brody DO Primary Care Provider [phone] Encounter Details Date Type Department Care Team (Late st Contact Info) Description 03/22/2020 Telephone [place] [phone] Maged Smith RN Social History Tobacco Use [...] Miscellaneous Notes * Telephone Encounter - Maged Smith, RN - 03/22/2020 3:20 PM EST Spoke with Theresa who was having reservations after her appointment with Dr. Ng regarding her future appt with Dr. Vieira. After speaking with Dr. Ng, I was able to reassure Theresa that he and Dr. Vieira talked and he feels very confident with the plan of care. Theresa feels better and willfollow up with Dr. Vieira this week. BETH OneillN, internet marketing intern Triage Nurse documented in this encounter Plan of Treatment Not on file documented as of this encounter Visit Diagnoses Not on filedocumented in this encounter Care Teams Electrotype Caster Relationship Specialty Start Date End Date Marck Brody DO [address] [place] [address] PCP - General 02/08/10 10/12/21 documented as of this encounter
--- OUTSIDE RECORDS SUMMARY | 2023-12-08 20:03 | XMS_ITS | Encounter Summary ---
Author Organization [facility] [place] [address] Care Team Providers Care Signal Intelligence Analyst Name Role Phone Marck Brody DO Primary Care Provider Reason for Visit * Auth/Cert Specialty Diagnoses / Procedures Referred By Shirley cuevas Referred To Contact Diagnoses osteoradionecrosis of the mandible Procedures PRO DEBRIDEMENT BONE MUSCLE &/FASCIA 20 SQ CM/< DEBRIDEMENT SKIN, SUBCU, MUSCLE, BONE, HEAD/NECK (WRVU 4.1) Referral ID Status Reason Start Date Expiration Date Visits Re quested Visits Authorized [id number] 1 1 Encounter Details Date Type Department Care Team (Late st Contact Info) Description 11/17/2019 12:26 PM EDT Anesthesia Event [place] [phone] Theresa Hutton MD [facility] [place] [address] Anesthesia Record Procedure Summary Procedure Name Responsible Anesthesiologist Anesthesia Start Time Anesthesia Stop Time DEBRIDEMENT SKIN, SUBCU, MUSCLE, BONE, HEAD/NECK (WRVU 4.1) (Bilateral: Head) Theresa Hutton MD 11/17/19 1226 11/17/19 1428 Events Date Time Event Comment 11/17/2019 1130 1226 AN Verify 1226 Start 1226 An Start Data 1248 An Induction 1248 An Intubation 1248 Anesthesia Ready 1301 Quick Note Awake FOB notes : viscous lido 2% 4 cc swish and spit, nasal afrin spray x2 right nares, x1 left nares. Nasal swab with viscous lido and phenylephrine. Superior laryngeal nerve block right side only 2 cc 1.5%pf lido, transtracheal block 4cc 4% lido (prep, negative aspiration) no complications. Right sided nasal FOB with 6.0 ett, single attempt, VCV. Easy passage of tube. +ETCo2. Induction IV. Secured at 26 cm. 1309 Quick Note 1417 Extubation/LMA Out 1420 an stop data 1420 Recovery or ICU Handoff Yumi ent care was transferred to the destination unit staff after review of the patient's medical history, current anesthetic/surgical status and plan, according to the Provider Handoff Checklist. 1428 Stop Meds Name Total Midazolam 1 mg fentaNYL 20 mcg Propofol 100 mg ePHEDrine 20 mg Ondansetron 4 mg Dexamethasone 4 mg Dexmedetomidine INF 17.75 mcg Dexmedetomidine 46 mcg Clindamycin 600 mg Lactated Ringers 800 mL * Agents Name O2 Air N2O Sevoflurane (et) * Blood No blood administrations on file. Lines, Drains, and Airways Type Details Placement Removal Incision 05/06/14; other (see comments) (Oral/Jaw/teeth); 11/14/21 (Admeld cleanup utility RA#[id number]); 1715 (Admeld cleanup utility RA#[id number]) 05/06/14 0000 by Caron Retana RN 11/14/21 1715 by Vera Archer (RETIRED) Peripheral IV Line - Single Lumen 11/17/19; 1050; median cubital vein (antecubital fossa), right; [id number] catheter system; 20 gauge; FUENTES Elam ; distraction, tolerated well, appears comfortable, intradermal injection; 12/22/20 (Admeld Cleanup utility RA#[id number]); 1650 (Admeld Cleanup utility RA#[id number]) 11/17/19 1050 by Diana Cardoso RN 12/22/20 1650 by Gaurang Arboleda ETT Mask Ventilation: No t Attempted (0); ETT Type: Cuffed, Nasal; ETT Size: 6 mm; Notes: Awake; Attempts: 1; Inserted by: Johan; Removal Date: 11/17/19; Removal Time: 1417 11/17/19 1253 by Benton Prado MD 11/17/19 1417 by Benton Prado MD Incision 11/17/19; 1308; gum; 11/14/21 (LDA cleanup utility RA#[id number]); 1715 (LDA cleanup utility RA#[id number]) 11/17/19 1308 by Cherelle Manriquez RN 11/14/21 1715 by Vera Archer documented in this encounter Social History Tobacco [...] OR Notes * Anesthesia Postprocedure Evaluation - Benton Prado MD - 11/17/2019 2:30 PM EDT Department of Anesthesiology Post-procedure Note Patient: Theresa Hollis Procedure Summary Date: 11/17/19 Room / Location: [facility] OR [address] [place] [address] MAIN OR Anesthesia Start: 1226 Anesthesia Stop: 8 Procedures: DEBRIDEMENT SKIN, SUBCU, MUSCLE, BONE, HEAD/NECK (WRVU 4.1) (Bilateral Head) SURGICAL EXTRACTIONS REQUIRING ELEVATION OF MUCOPERIOSTEAL FLAP AND REMOVAL OF BONE OR SECTION OF TOOTH (WRVU 1.09) (Bilateral ) INJECTION(S), PLATELET RICH PLASMA, ANY SITE, INCLUDING IMAGE GUIDANCE, HARVESTING AND PREPARATION WHEN PERFORMED (Mouth) Diagnosis: 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) Surgeon: Keyur Ng MD Responsible Provider: Theresa Hutton MD Anesthesia Type: general ASA Status: 3 All Anesthesia Providers: Anesthesiologist: Theresa Hutton MD Shoe Turner: Benton Prado MD Vitals Value Taken Time BP 124/75 11/17/19 1428 Temp 37.4 ??C (99.3 ??F) 11/17/19 1428 Pulse 78 11/17/19 1428 Resp 15 11/17/19 1428 SpO2 96 % 11/17/19 1428 Pain Level Patient Location: PACU/SDP Level of Consciousness: Awake and Alert Pain Management: Satisfactory Analgesia PONV: None Cardiovascular Status: Hemodynamically Stable Respiratory Status: Stable Respiratory Status Postoperative Fluid Status: Intravascular EUvolemia Possible Anesthetic Complications: NONE apparent at time of evaluation Final Primary Anesthesia Type: General (The anesthetic type performed was the same as planned.) Comments: * Anesthesia Preprocedure Evaluation - Theresa Hutton MD - 11/16/2019 1:21 PM EDT Pre-Anesthesia Evaluation for: Theresa Hollis a 49 y.o. female. Procedure(s): DEBRIDEMENT SKIN, SUBCU, MUSCLE, BONE, HEAD/NECK (WRVU 4.1) SURGICAL EXTRACTIONS REQUIRING ELEVATION OF MUCOPERIOSTEAL FLAP AND REMOVAL OF BONE OR SECTION OF TOOTH (WRVU 1.09) Patient Active Problem List Diagnosis ??? 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 ??? Depressive disorder ??? 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 ??? Periodontal disease ??? DIFFICULT AIRWAY 05/06/2014 - see airway note in anesthesia record ??? Radiation injury Has dry mouth/xerostomia, retraction of gums ??? 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 History of tongue cancer ??? Hypothyroidism (acquired) VNV=262 in 06/25. Started on synthroid 25mcg po qd. ??? Tongue cancer pT1 pN2b Mx, nonsmoker A. L tongue [...] 4/53 nodes involved (1 at level 5), (-) DNAE, PNI, LVI C. adjuvant concurrent cisplatin (100mg/m2 q3wks - 3 total doses) plus radiation (66Gy total) started 11/26 - 01/07/07, complicated by mucositis, dysphagia requiring PEG tube, severe oral pain; excellent functional recovery D. Hyperbaric O2 therapy for dental extractions 04/2014 D. Atraumatic L mandibular fracture 12/2015 despite hyperbaric O2 treatment; managed conservatively Past Medical History: Diagnosis Date ??? Allergic rhinitis ??? Cancer of head, face, and neck ??? Hypothyroidism Past Surgical History: Procedure Laterality Date ??? GLOSSECTOMY Right partial ??? LYMPHADENECTOMY SND 1-5 ??? PRO BONE BIOPSY,TROCAR/NEEDLE SUPERF Left 05/06/2014 BIOPSY BONE, TROCAR OR NEEDLE, SUPERFICIAL, MANDIBLE performed by Alfred Vital MD at [facility] ??? PRO REMOVAL ERUPTED TOOTH WITH ELEVATION OF MUCOPERIOSTEAL FLAP N/A 05/06/2014 SURGICAL EXTRACTIONS REQUIRING ELEVATION OF MUCOPERIOSTEAL FLAP AND REMOVAL OF BONE OR SECTION OF TOOTH performed by Alfred Vital MD at [facility] MAIN OR ??? SKIN GRAFT Social History Tobacco Use ??? Smoking status: Never Smoker ??? Smokeless tobacco: Never Used Substance Use Topics ??? Alcohol use: Yes Comment: seldom, 4 drinks per year Social History Substance and Sexual Activity Drug Use No Allergies Allergen Reactions ??? Benzocaine Made pt tongue red and angry. Irritant reaction - allergy testing negative ??? Birch Other (See Comments) Birch pollen: wheezing and throat constriction Medications: MAR and/or home medications have been reviewed. Physical Exam: No data found. There is no height or weight on file to calculate BMI. Airway Assessment: Mallampati: IV TM distance: <3 FB Neck ROM: limited Cardiovascular Assessment: cardiovascular exam normal Pulmonary Assessment: pulmonary exam normal Dental Assessment: Misc Assessment: Patient is wearing No contact(s). IV access: Peripheral line Other exam findings: Extremely limited mouth opening and firm neck s/p surgery and RT for base of tongue CA. Anesthesia Plan: ASA 3 general, with a(n) intravenous induction Patient is a 49 year old female with PMH of osteoradionecrosis of jaw, tongue cancer s/p chemo/radiation hemiglossectomy with left functional neck dissection who presents for surgical extractions/bilateral head/neck debridement for osteoradionecrosis of the mandible. Anesthesia history: 2014 unable to visualize epiglottis or cords. Grade 4 view with Mac 3 and bougie (6mm ETT). Easy mask. Plan: GA with ETT, standard ASA monitors, adequate IV access. CMAC. Benton Prado MD Anesthesiology PGY2 forest and conservation worker note: chart reviewed and patient interviewed and examined in SDA prior to surgery. NPO>8h for solids, >2h liquids, teary re. Having an extraction today. Extremely limited mouth opening, a lot of viscous appearing secretions in the mouth, surgery requires a nasal tube. I am concerned that a CMAC will not fit easily nor provide view for a nasal tube with a McGills. Will proceed with awake nasal fiberoptic, R/B/A explained to her including but not limited to recall of the intubation event. Region - Other Informed Consent: Anesthetic plan and risks discussed with patient. Use of blood products discussed with patient who. Plan discussed with resident. PAT Clinic Note documented in this encounter Plan of Treatment Not on file documented as of this encounter Visit Diagnoses Not on filedocumented in this encounter Administered Medications Inactive Administered Medications - up to 3 most recent administrations Medication Order MAR Action Action Date Dose Rate Site clindamycin (CLEOCIN) injection PRN, Starting on Sun11/17/19 at 1338, Until Sun11/17/19 at 1428, Anesthesia Intra-op, Routine Given 11/17/2019 1:38 PM EDT 600 mg dexamethasone (Decadron) injection PRN, Starting on Sun11/17/19 at 1343, Until Sun11/17/19 at 1428, Anesthesia Intra-op, Routine Given 11/17/2019 1:43 PM EDT 4 mg dexmedetomidine (PRECEDEX) 4 mcg/mL (standard Adult & Pedi greater than 20kg) infusion (premix) CONTINUOUS PRN, Starting on Sun11/17/19 at 1244, Until Sun11/17/19 at 1428, Anesthesia Intra-op Rate/Dose Change 11/17/2019 1:18 PM EDT 0.2 mcg/kg/hr 2.3 mL/hr Rate/Dose Change 11/17/2019 1:07 PM EDT 0.5 mcg/kg/hr 5.8 mL/hr Rate/Dose Change 11/17/2019 12:51 PM EDT 0.4 mcg/kg/hr 4.6 mL/hr dexmedetomidine (PRECEDEX) injection PRN, Starting on Sun11/17/19 at 1232, Until Sun11/17/19 at 1428, Anesthesia Intra-op, Routine Given 11/17/2019 12:32 PM EDT 46 mcg ePHEDrine 5 mg/mL multi-dose injection PRN, Starting on Sun11/17/19 at 1252, Until Sun11/17/19 at 1428, Anesthesia Intra-op, Routine Given 11/17/2019 1:34 PM EDT 5 mg Given 11/17/2019 1:18 PM EDT 5 mg Given 11/17/2019 12:52 PM EDT 10 mg fentaNYL 50 mcg/mL multi-dose injection PRN, Starting on Sun11/17/19 at 1329, Until Sun11/17/19 at 1428, Anesthesia Intra-op, Routine Given 11/17/2019 1:47 PM EDT 10 mcg Given 11/17/2019 1:29 PM EDT 10 mcg lactated ringers infusion CONTINUOUS PRN, Starting on Sun11/17/19 at 1246, Until Sun11/17/19 at 1428, Anesthesia Intra-op New Bag 11/17/2019 12:46 PM EDT midazolam (PF) (VERSED) multi-dose injection PRN, Starting on Sun11/17/19 at 1230, Until Sun11/17/19 at 1428, Anesthesia Intra-op, Routine Given 11/17/2019 12:30 PM EDT 1 mg ondansetron (ZOFRAN) injection PRN, Starting on Sun11/17/19 at 1347, Until Sun11/17/19 at 1428, Anesthesia Intra-op, Routine Given 11/17/2019 1:47 PM EDT 4 mg propofol (DIPRIVAN) 10 mg/mL bolus injection (Anesthesia) PRN, Starting on Sun11/17/19 at 1248, Until Sun11/17/19 at 1428, Anesthesia Intra-op Given 11/17/2019 12:48 PM EDT 100 mg documented in this encounter Care Teams Signal Intelligence Analyst Relationship Specialty Start Date End Date Marck Brody DO [address] [place] [address] PCP - General 02/08/10 10/12/21 documented as of this encounter
--- OUTSIDE RECORDS SUMMARY | 2023-12-08 20:03 | XMS_ITS | Encounter Summary ---
[place] [address] Care Team Providers Care Internet Specialist Name Role Phone Marck Brody DO Primary Care Provider Encounter Details Date Type Department Care Team (Late st Contact Info) Description 11/14/2019 9:40 AM EDT Public [facility] [place] [address] COVID-19 ruled out Social History Tobacco Use Types Packs/Day Years [...] Procedure Name Priority Date/Time Associated Diagnosis Comments COVID-19 PCR STAT 11/14/2019 12:06 PM EDT COVID-19 ruled out documented in this encounter Results * COVID-19 PCR (11/14/2019 12:06 PM EDT) SARS-CoV-2 RNA Not Detected Not Detected [facility] Comment: This result should be interpreted in combination with the clinical observations, patient history and epidemiological information. For testing of asymptomatic individuals, assay performance characteristics and clinical utility have not been evaluated. Testing for SARS-CoV-2 (Severe acute respiratory syndrome coronavirus 2, formerly known as 2019 novel coronavirus or 2019-nCoV) to aid in the diagnosis of COVID-19 is performed using the [employer] RealTime SARS-CoV-2 as authorized by the FDA Emergency Use Authorization (EUA). This EUA assay is intended for In-vitro Diagnostic (IVD) use with respiratory specimens such as nasopharyngeal swabs collected from individuals during the acute phase of infection. This assay is performed based on the instructions for use provided by the [employer] and additional guidance provided by CDC and FDA. Testing is performed in the [facility] within the Department of Pathology and Laboratory Medicine at [facility], certified under the Clinical Laboratory Improvement Amendments of 1988 (CLIA), 42 U.S.C. section 263a, to perform high complexity tests. Assay performance has been verified according to clinical laboratory regulatory requirements. Test results are provided above. A result of Not Detected indicates that the viral RNA target is not present but does not preclude SARS-CoV-2 infection. False negative results may occur if a specimen is improperly collected, transported or handled; if amplification inhibitors are present; or if inadequate numbers of viral particles are present in the specimen. A result of Detected suggests a current or recent infection and the patient is presumed to be infected. As required or requested by public health authorities, positive specimens may be sent for additional testing. Positive and negative predictive values for this test are highly dependent on disease prevalence. A result of Invalid indicates that neither the viral RNA targets nor the internal control target was detected. An invalid result suggests the presence of inhibitors. Recollection is recommended in the case of an invalid result. CDC COVID-19 criteria for testing on human specimens and clinical management guidance information are available at the CDC Coronavirus Disease 2019 (COVID-19) webpage under Information for Healthcare Professionals (https://www.cdc.gov/coronavirus/2019-ncov/hcp/index.html) Additional information about this and other EUA tests can be found in provider and patient fact sheets at the following FDA website: https://www.fda.gov/medical-devices/qbqefhmtd-wpkdelgrju-gbeduqa-devices/emergen -us e-authorizations#fktrn59yaa SARS-CoV-2 RNA Source LEAD LOADER Swab [facility] Nasopharyngeal swab (specimen) 11/14/2019 12:06 PM EDT 11/14/2019 12:06 PM EDT Comment:Symptoms->Asymptomat ic Narrative Resulting Agency Comment Spec In Lab Keyur Ng MD MOLECULAR ORDERABLES Performing Organization Address City/State/[facility] Co de Phone Number [facility] [place] [address] documented in this encounter Visit Diagnoses Diagnosis COVID-19 ruled out documented in this encounter Care Teams Internet Specialist Relationship Specialty Start Date End Date Marck Brody DO [address] [place] [address] PCP - General 02/08/10 10/12/21 documented as of this encounter
--- OUTSIDE RECORDS SUMMARY | 2023-12-08 20:03 | XMS_ITS | Encounter Summary ---
Author Organization [facility] [place] [address] Care Team Providers Care Damascener Name Role Phone Marck Brody DO Primary Care Provider [phone] Encounter Details Date Type Department Care Team (Late st Contact Info) Description 01/23/2020 Notes Only [place] [phone] Allegra Ndiaye RN Social History Tobacco Use Types Packs/Day [...] as of this encounter Progress Notes * Allegra Ndiaye RN - 01/23/2020 3:46 PM EST Called and spoke to Theresa to let her know that Dr. Ng has requested one of our radiologists to review her CT scan as well. We also requested that the CT report from [facility] be sent over which we are waiting to receive. Theresa appreciated the call and is looking forward to hearing more specifics from Dr. Ng. documented in this encounter Plan of Treatment Not on file documented as of this encounter Visit Diagnoses Not on filedocumented in this encounter Care Teams Damascener Relationship Specialty Start Date End Date Marck Brody DO [address] [facility] [place] [address] PCP - General 02/08/10 10/12/21 documented as of this encounter
--- OUTSIDE RECORDS SUMMARY | 2023-12-08 20:03 | XMS_ITS | Encounter Summary ---
Author Organization [facility] [address] Care Team Providers Care Clay Pigeon Setter Name Role Phone Marck Brody DO Primary Care Provider Reason for Visit * Reason Comments On Treatment Visit HBO #30 Encounter Details Date Type Department Care Team (Latest Contact Info) Description 12/02/2019 6:58 AM EDT - 12/02/2019 11:59 PM EDT [facility] [place] [phone] Osteoradionecrosis of jaw Discharge Disposition: Home Social [...] Sign Reading Time Taken Comments Blood Pressure 126/75 12/02/2019 9:08 AM EDT Pulse 75 12/02/2019 9:08 AM EDT Temperature 36.5 ??C (97.7 ??F) 12/02/2019 7:13 AM ED T Respiratory Rate 16 12/02/2019 7:13 AM EDT Oxygen Saturation - - Inhaled [...] Progress Notes * Lucie Quigley RN - 12/02/2019 7:23 AM EDT INTERVAL HISTORY: Patient arrived ambulatory with steady gait. Today is last scheduled HBOT. Visual acuity testing and questionnaires completed prior to procedure. Neurological Status: A+O Respiratory Status: easy respirations Visual Change: testing performed today, see results below Headache: denies Cough: occasional cough to clear secretions, patient's baseline Cold symptoms:denies Ear Discomfort/Issues: denies Chest Pain/Palpatations:denies Wound/Dressing: N/A Snellen Chart Near Vision Both Eyes 20/100 20/60 Right Eye 20/160 20/40 Left Eye 20/ 160 20/60 Refraction Values Right Left Spherical -3.75 -3.75 Cylinder -1.25 -1.50 [place] 97 82 Pain Level: 0 (0-10 scale) Education: dillan Hollis received hyperbaric oxygen treatment today for osteoradionecrosis [...] monitored the patient. HYPERBARIC TREATMENT: Number - 30 Planned number of treatments - 30 Compression Rate: 1.2 - 1.7 psi/min Decompression Rate: 2.5 psi/min TROY - 2.4 Start Compression Reach Treatment Pressure - TROY Air Break Start Air Break Completed Start Decompression Treatment Completed 0717 0734 0819 0830 [phone] Sechrist Chamber # 1 Encouraged patient to adjust position during air break. Clinical Practice Guideline for Hyperbaric Oxygen Therapy Prevent and manage for potential problems related to 1.Barotrauma, 2.oxygen toxicity, and 3.Pneumothorax. 4. Situational Problems Assessed: ALL (Barotrauma, Oxygen Toxicity, Pneumothorax, Situational) Problems Present: None, (Barotrauma, Oxygen Toxicity, Pneumothorax, Situational) No issues or complaints during or after treatment. Interventions: Per Clinical Practice Guidelines for Hyperbaric Oxygen Therapy through [facility]. No interventions required today. Decompression started 7 minutes early today per patient's request, due to work schedule. Patient alert and oriented. Ambulating with steady gait. Patient assessed and found appropriate to leave the Hyperbaric area at the conclusion of today???s session. Today is this patient's final scheduled HBOT. documented in this encounter Plan of Treatment Not on file documented as of this encounter Visit Diagnoses Diagnosis Osteoradionecrosis of jaw Other specified disease of the jaws documented in this encounter Care Teams Clay Pigeon Setter Relationship Specialty Start Date End Date Marck Brody DO [address] [place] [address] PCP - General 02/08/10 10/12/21 documented as of this encounter
--- OUTSIDE RECORDS SUMMARY | 2023-12-08 20:03 | XMS_ITS | Encounter Summary ---
Author Organization [facility] [place] [address] Care Team Providers Care Capsule Maker Name Role Phone Marck Brody DO Primary Care Provider [phone] Reason for Visit * Reason Comments On Treatment Visit HBOT Encounter Details Date Type Department Care Team (Latest Contact Info) Description 11/19/2019 6:56 AM EDT - 11/19/2019 11:59 PM EDT Hospital En[facility] [place] [phone] Osteoradionecrosis of jaw Discharge Disposition: Home Social [...] Sign Reading Time Taken Comments Blood Pressure 115/66 11/19/2019 9:20 AM EDT Pulse 77 11/19/2019 9:20 AM EDT Temperature 36.2 ??C (97.2 ??F) 11/19/2019 7:15 AM ED T Respiratory Rate 16 11/19/2019 7:15 AM EDT Oxygen Saturation - - Inhaled [...] as of this encounter Progress Notes * Huma Lowe RN - 11/19/2019 7:41 AM EDT INTERVAL HISTORY: Patient alert and oriented, VSS. Patient describes pain 4/10. States she is able to eat applesauce and whipped potatoes. Arrived to treatment area and transferred to [facility] independently. Neurological Status: intact Respiratory Status:WNL Visual Change: none Headache: none Cough: none Cold symptoms:none Ear Discomfort/Issues: none Chest Pain/Palpatations: denies Wound/Dressing: none Other: Pre Treatment Glucose: N/A Intervention for hypoglycemia if necessary: Repeat Blood Glucose (prior to HBOT): Pain Level: 4 (0-10 scale) * If greater than 5, document interventions. Education: Theresa Hollis received hyperbaric oxygen treatment today for Osteoradionecrosis of jaw. 100% cotton clothing in place. Patient checked for non-approved chamber items. Tympanic membranes checked. No redness or perforation noted. Patient assessed and met criteria to proceed with hyperbaric treatment. Safety checklist completed with patient. Grounding strap applied and grounding verified, patient placed in chamber, communications checked. Huma Lowe RN / Laura Quigley RN administered the treatment and monitored the patient. HYPERBARIC TREATMENT: Number - 22 Planned number of treatments - 30 (20 prior to dental procedure, 10 after) Compression Rate: 1.2 psi/min Decompression Rate: 2.5 psi/min TROY - 2.4 Start Compression Reach Treatment Pressure - TROY Air Break Start Air Break Completed Start Decompression Treatment Completed 0719 0739 0824 0834 [phone] Sechrist Chamber # 1 Encouraged patient to [...] Practice Guidelines for Hyperbaric Oxygen Therapy through [facility]. No interventions required today. Post treatment glucose: N/A Patient alert and oriented. Ambulating with steady gait. Patient assessed and found appropriate to leave the Hyperbaric area at the conclusion of today???s session. Continue HBOT as planned. Next treatment scheduled for 11/20/19. documented in this encounter Plan of Treatment Not on file documented as of this encounter Visit Diagnoses Diagnosis Osteoradionecrosis of jaw Other specified disease of the jaws documented in this encounter Care Teams Capsule Maker Relationship Specialty Start Date End Date Marck Brody DO [address] [place] [address] PCP - General 02/08/10 10/12/21 documented as of this encounter
--- OUTSIDE RECORDS SUMMARY | 2023-12-08 20:03 | XMS_ITS | Encounter Summary ---
Author Organization Formerly [facility] Address [facility] [place] [address] Care Team Providers Care Wood Grinder Name Role Phone Marck Brody DO Primary Care Provider Encounter Details Date Type Department Care Team (Late st Contact Info) Description 01/20/2020 Ancillary Procedure Radiology Library at [facility] [place] [phone] Marck Brody DO [address] [place], [place] [address] Social History Tobacco Use Types Packs/Day Years [...] Associated Diagnosis Comments FILM LIBRARY STORAGE ONLY CT HEAD Routine 01/20/2020 12:00 AM EST documented in this encounter Results * Film Library- Storage Only CT Head (01/20/2020 12:00 AM EST) Narrative [facility] - 01/21/2020 2:01 PM EST This exam is auto-finalizing. It's purpose is for storage only. Marck Brody DO IM FILM LIBRARY ORD ERABLES [facility] [place], [place] documented in this encounter Visit Diagnoses Not on filedocumented in this encounter Care Teams Wood Grinder Relationship Specialty Start Date End Date Marck Brody DO [address] [place] [address] PCP - General 02/08/10 10/12/21 documented as of this encounter
--- OUTSIDE RECORDS SUMMARY | 2023-12-08 20:03 | XMS_ITS | Encounter Summary ---
Author Organization [facility] [place] [address] Care Team Providers Care Middle School Baseball Coach Name Role Phone Marck Brody DO Primary Care Provider [phone] Encounter Details Date Type Department Care Team (Late st Contact Info) Description 04/27/2020 Notes Only Maxill[place] [phone] Allegra Ndiaye, RN Social History Tobacco Use Types Packs/Day [...] of this encounter Progress Notes * Allegra Ndiaye, RN - 04/27/2020 7:56 AM EST Pt called and left a message stating that she is still concerned about what is going on with her mouth/throat. She had developed a sore throat so she got tested for COVID and her test came back negative. I touched base with the ENT team again to see what the plan is and they are going to call her today to discuss getting her in for an appointment. The ENT team knows to let us know if there is anything we can do to help on our end. documented in this encounter Plan of Treatment Not on file documented as of this encounter Visit Diagnoses Not on filedocumented in this encounter Care Teams Middle School Baseball Coach Relationship Specialty Start Date End Date Marck Brody DO [address] [place] [address] PCP - General 02/08/10 10/12/21 documented as of this encounter
--- OUTSIDE RECORDS SUMMARY | 2023-12-08 20:03 | XMS_ITS | Encounter Summary ---
Author Organization [facility] [place] [address] Care Team Providers Care Paving Stone Installer Name Role Phone Marck Brody DO Primary Care Provider Reason for Visit * Reason Comments On Treatment Visit HBOT #19 Encounter Details Date Type Department Care Team (Latest Contact Info) Description 11/14/2019 6:54 AM EDT - 11/14/2019 11:59 PM EDT Hospital Encounter [facility] [place] [phone] Osteoradionecrosis of jaw Discharge Disposition: Home Social [...] Sign Reading Time Taken Comments Blood Pressure 116/83 11/14/2019 9:18 AM EDT Pulse 68 11/14/2019 9:18 AM EDT Temperature 36.4 ??C (97.5 ??F) 11/14/2019 7:12 AM ED T Respiratory Rate 16 11/14/2019 7:12 AM EDT Oxygen Saturation - - Inhaled [...] as of this encounter Progress Notes * Candice Catalan RN - 11/14/2019 7:31 AM EDT INTERVAL HISTORY: Arrives ambulatory and transfers independently. Patient denies any new discomfort. Neurological Status: Alert, oriented x4 Respiratory Status: Eupneic Visual Change: As previously noted Headache: None Cough: occasional Cold symptoms: Denies Ear Discomfort/Issues: Denies Chest Pain/Palpatations: None Wound/Dressing: N/A Pain Level: 0 (0-10 scale) * If greater than 5, document interventions. 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 100% cotton clothing in place. Patient checked for non-approved chamber items. Tympanic membranes checked; TMs obscured by wax. No redness or perforation noted. Patient assessed and met criteria to proceed with hyperbaric treatment. Safety checklist completed with patient. Grounding strap applied and grounding verified, patient placed in chamber, communications checked. Tamia Catalan RN / Laura Quigley RN administered the treatment and monitored the patient. HYPERBARIC TREATMENT: Number - 19 Planned number of treatments - 30; 20 prior to procedure Compression Rate: 1.2-2.0 psi/min Decompression Rate: 2.5 psi/min TROY - 2.4 Start Compression Reach Treatment Pressure - TROY Air Break Start Air Break Completed Start Decompression Treatment Completed 0715 0736 0822 0832 [phone] Sechrist Chamber # 1 Encouraged patient to adjust position during air break. Clinical Practice Guideline for Hyperbaric Oxygen Therapy Prevent and manage for potential problems related to 1.Barotrauma, 2.oxygen toxicity, and 3.Pneumothorax. 4. Situational Problems Assessed: ALL (Barotrauma, Oxygen Toxicity, Pneumothorax, Situational) Problems Present: None, (Barotrauma, Oxygen Toxicity, Pneumothorax, Situational) Compression started at 1.2 psi/min until patient past 1.8 TROY; brief pause x2 to allow for pressureequalization. Compresssion rate increased to 2.0 after patient reached 1.8 TROY, no further difficulty. Interventions: Per Clinical Practice Guidelines for Hyperbaric Oxygen Therapy through [facility]. No interventions required today. Patient alert and oriented. Ambulating with steady gait. Patient assessed and found appropriate to leave the Hyperbaric area at the conclusion of today???s session. Continue HBOT as planned. Next treatment scheduled for 11/17/2019. documented in this encounter Plan of Treatment Not on file documented as of this encounter Visit Diagnoses Diagnosis Osteoradionecrosis of jaw Other specified disease of the jaws documented in this encounter Care Teams Paving Stone Installer Relationship Specialty Start Date End Date Marck Brody DO [address] [place] [address] PCP - General 02/08/10 10/12/21 documented as of this encounter
--- OUTSIDE RECORDS SUMMARY | 2023-12-08 20:03 | XMS_ITS | Encounter Summary ---
Author Organization [facility] [place] [address] Care Team Providers Care Enhanced Environmental Operator Name Role Phone Marck Brody DO Primary Care Provider [phone] Encounter Details Date Type Department Care Team (Late st Contact Info) Description 11/18/2019 Telephone [place] [phone] Theresa Garay RN Social History Tobacco Use Types Packs/Day [...] encounter Miscellaneous Notes * Telephone Encounter - Theresa Garay RN - 11/18/2019 4:12 PM EDT Returned patient's call to nurse triage line. Patient wanted to know if she could brush her remaining bottom teeth after her surgical procedure with Dr. Ng yesterday. I spoke with Dr. Ng who said that it was ok, she just needed to be gentle. Call placed to patient and made aware. All questions answered. documented in this encounter Plan of Treatment Not on file documented as of this encounter Visit Diagnoses Not on filedocumented in this encounter Care Teams Enhanced Environmental Operator Relationship Specialty Start Date End Date Marck Brody DO [address] [facility] [place] [address] PCP - General 02/08/10 10/12/21 documented as of this encounter
--- OUTSIDE RECORDS SUMMARY | 2023-12-08 20:03 | XMS_ITS | Encounter Summary ---
Author Organization [facility] [place] [address] Care Team Providers Care Oracle Analyst Name Role Phone Marck Brody DO Primary Care Provider [phone] Reason for Visit * Reason Comments On Treatment Visit HBOT #29 Encounter Details Date Type Department Care Team (Latest Contact Info) Description 12/01/2019 6:55 AM EDT - 12/01/2019 11:59 PM EDT Hospital Encounter [facility] [place] [phone] Osteoradionecrosis of jaw Discharge Disposition: Home Social [...] Sign Reading Time Taken Comments Blood Pressure 115/73 12/01/2019 9:09 AM EDT Pulse 63 12/01/2019 9:09 AM EDT Temperature 36.7 ??C (98.1 ??F) 12/01/2019 7:09 AM ED T Respiratory Rate 16 12/01/2019 7:09 AM EDT Oxygen Saturation - - Inhaled [...] Progress Notes * Candice Catalan RN - 12/01/2019 7:36 AM EDT INTERVAL HISTORY: Arrives ambulatory and transfers independently. Patient denies any new discomfort, changes, issues,complaints. Neurological Status: Alert, oriented x4 Respiratory Status: Respirations easy Visual Change: No new changes Headache: None Cough: Occasional Cold symptoms: Denies Ear Discomfort/Issues: Denies Chest Pain/Palpatations: Denies Wound/Dressing: None Pain Level: 0 (0-10 scale) * If [...] chamber, communications checked. Tamia Catalan RN / Ronnie Pacheco RN administered the treatment and monitored the patient. HYPERBARIC TREATMENT: Number - 29 Planned number of treatments - 30 Compression Rate: 1.2-1.8 psi/min Decompression Rate: 2.5 psi/min TROY - 2.4 Start Compression Reach Treatment Pressure - TROY Air Break Start Air Break Completed Start Decompression Treatment Completed 0716 0733 0818 0828 [phone] Sechrist Chamber # 1 Encouraged patient to [...] [facility]. No interventions required today. Patient alert and oriented. Ambulating with steady gait. Patient assessed and found appropriate to leave the Hyperbaric area at the conclusion of today???s session. Continue HBOT as planned. Next treatment scheduled for 12/02/2019. 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
--- OUTSIDE RECORDS SUMMARY | 2023-12-08 20:03 | XMS_ITS | Encounter Summary ---
Author Organization [facility] [place] [address] Care Team Providers Care Flare Man Name Role Phone Marck Brody DO Primary Care Provider Reason for Visit * Reason Comments On Treatment Visit HBO #25 Encounter Details Date Type Department Care Team (Latest Contact Info) Description 11/25/2019 6:54 AM EDT - 11/25/2019 11:59 PM EDT Hospital [facility] [place] [phone] Osteoradionecrosis of jaw Discharge Disposition: Home Social [...] Sign Reading Time Taken Comments Blood Pressure 144/77 11/25/2019 7:08 AM EDT Pulse 84 11/25/2019 7:08 AM EDT Temperature 36.4 ??C (97.5 ??F) 11/25/2019 7:08 AM ED T Respiratory Rate 16 11/25/2019 7:08 AM EDT Oxygen Saturation - - Inhaled [...] Progress Notes * Lucie Quigley RN - 11/25/2019 7:33 AM EDT INTERVAL HISTORY: Patient arrived ambulatory with steady gait. 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 Neurological Status: A+O Respiratory Status: easy respirations Visual Change: no new reported Headache: denies Cough: occasional cough to clear secretions, patient's baseline. Cold symptoms: denies Ear Discomfort/Issues: Reports that ears feel a little stuffy due to presence of wax. Chest Pain/Palpatations: denies Wound/Dressing: N/A Other: Requests to be out of chamber by 914 in order to meet her afternoon schedule. Pain Level: 1 (0-10 scale) Reports no pain medication use over the weekend Education: dillan Theresa Bolivar Bunny received hyperbaric oxygen treatment today for osteoradionecrosis [...] monitored the patient. HYPERBARIC TREATMENT: Number - 25 Planned number of treatments - 30 Compression Rate: 1.2 psi/min Decompression Rate: 2.5 psi/min TROY - 2.4 Start Compression Reach Treatment Pressure - TROY Air Break Start Air Break Completed Start Decompression Treatment Completed 0712 0729 0815 0825 0900 0908 Sechrist Chamber # 1 Encouraged patient to [...] Practice Guidelines for Hyperbaric Oxygen Therapy through [facility]. No interventions required today. Patient alert and oriented. Ambulating with steady gait. Patient assessed and found appropriate to leave the Hyperbaric area at the conclusion of today???s session. Continue HBOT as planned. Next treatment scheduled for 11/26/19. documented in this encounter Plan of Treatment Not on file documented as of this encounter Visit Diagnoses Diagnosis Osteoradionecrosis of jaw Other specified disease of the jaws documented in this encounter Care Teams Flare Man Relationship Specialty Start Date End Date Marck Brody DO [address] [place] [address] PCP - General 02/08/10 10/12/21 documented as of this encounter
--- OUTSIDE RECORDS SUMMARY | 2023-12-08 20:03 | XMS_ITS | Encounter Summary ---
Author Organization [facility] [place] [address] Care Team Providers Care Senior Net Developer Architect Name Role Phone Marck Brody DO Primary Care Provider Encounter Details Date Type Department Care Team (Late st Contact Info) Description 12/16/2019 Telephone [place] [phone] Laura Centeno Social History Tobacco Use Types Packs/Day Years [...] encounter Miscellaneous Notes * Telephone Encounter - Laura Centeno - 12/16/2019 11:57 AM EDT Oral Surgery Appt- [facility] [place] calling to make you aware we have rescheduled your appointment from 02/09/20 3:30pm to 02/09/20 7:30am. Please call back to confirm date of appointment. Future Appointments Date Time Provider Department Center 12/25/2019 10:00 AM Roberth Lee MD [facility] [place] JHONATAN [facility] [place] 02/09/2020 7:30 AM Keyur Ng MD [facility] [place] MAXILLO [facility] [place] documented in this encounter Plan of Treatment Not on file documented as of this encounter Visit Diagnoses Not on filedocumented in this encounter Care Teams Senior Net Developer Architect Relationship Specialty Start Date End Date Marck Brody DO [address] [place] [address] PCP - General 02/08/10 10/12/21 documented as of this encounter
--- OUTSIDE RECORDS SUMMARY | 2023-12-08 20:03 | XMS_ITS | Encounter Summary ---
Author Organization [place] [address] Care Team Providers Care Director Game Name Role Phone Marck Brody DO Primary Care Provider [phone] Encounter Details Date Type Department Care Team (Late st Contact Info) Description 01/26/2020 Notes Only [place] [phone] Allegra Ndiaye RN Social History Tobacco Use [...] Progress Notes * Allegra Ndiaye RN - 01/26/2020 8:29 AM EST At the request of Dr. Ng I have called Theresa and notified her that there was nothing new on her CT scan that raised any concern for him or the radiologist. We will see her back at the end of January for a follow up with repeat panorex at that time. She knows to call in the interim with any new concerns. She appreciated the call. documented in this encounter Plan of Treatment Not on file documented as of this encounter Visit Diagnoses Not on filedocumented in this encounter Care Teams Director Game Relationship Specialty Start Date End Date Marck Brody DO [address] [place] [address] PCP - General 02/08/10 10/12/21 documented as of this encounter
--- OUTSIDE RECORDS SUMMARY | 2023-12-08 20:03 | XMS_ITS | Encounter Summary ---
Author Organization [place] [address] Care Team Providers Care Production Lapping Machine Operator Name Role Phone Marck Brody DO Primary Care Provider Encounter Details Date Type Department Care Team (Late st Contact Info) Description 11/26/2019 Notes Only [facility] [place] [address] Cuba Mcdonald Jr., MD [facility] [place] [address] Social History Tobacco Use Types Packs/Day Years [...] as of this encounter Progress Notes * Cuba Mcdonald Jr., MD - 11/26/2019 7:12 AM EDT Images from the original note were not included. Has completed 25 of a planned 30 treatments. Progress has been reviewed. No new labs or medications. Had had follow-up in ENT. Vital signs have been stable. Had her extractions on 11/17/19, teeth 21, 20, 30, 2. There is a defect on the jaw on the right, which was covered with platelet rich plasma membranes (area shown below). She initially felt that there was some loose tissue or retained gauze in this area, but none was seen on inspection and the feeling has resolved. Complications: Has had significant visual changes, and has difficulty with left ear on compression. Follow up plan: Continue hyperbaric treatments. documented in this encounter Plan of Treatment Not on file documented as of this encounter Visit Diagnoses Not on filedocumented in this encounter Care Teams Production Lapping Machine Operator Relationship Specialty Start Date End Date Marck Brody DO [address] [place] [address] PCP - General 02/08/10 10/12/21 documented as of this encounter
--- OUTSIDE RECORDS SUMMARY | 2023-12-08 20:03 | XMS_ITS | Encounter Summary ---
Author Organization [facility] [place] [address] Care Team Providers Care Risk Control Field Representative Name Role Phone Marck Brody DO Primary Care Provider Reason for Visit * Reason Comments On Treatment Visit HBOT #26 Encounter Details Date Type Department Care Team (Latest Contact Info) Description 11/26/2019 6:57 AM EDT - 11/26/2019 11:59 PM EDT Hospital Encounter [facility] [place] [phone] Osteoradionecrosis of jaw Discharge Disposition: Home Social [...] Sign Reading Time Taken Comments Blood Pressure 106/68 11/26/2019 9:10 AM EDT Pulse 69 11/26/2019 9:10 AM EDT Temperature 36.2 ??C (97.2 ??F) 11/26/2019 7:10 AM ED T Respiratory Rate 16 11/26/2019 9:10 AM EDT Oxygen Saturation - - Inhaled [...] as of this encounter Progress Notes * Jennifer Henderson RN - 11/26/2019 7:18 AM EDT INTERVAL HISTORY: Patient denies any discomfort, changes, issues, complaints. She arrived for treatment in good spirits. Neurological Status: normal Respiratory Status: normal Visual Change: denies Headache: denies Cough: none Cold symptoms: none Ear Discomfort/Issues: denies Chest Pain/Palpatations: denies Wound/Dressing: none Pain Level: 0 (0-10 scale) * If greater than 5, document interventions. 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 100%cotton clothing in place. Patient checked for non-approved chamber items. Tympanic membranes checked. No redness or perforation noted. Patient assessed and met criteria to proceed with hyperbaric treatment. Safety checklist completed with patient. Grounding strap applied and grounding verified, patient placed in chamber, communications checked. Jennifer Henderson RN / Laura Quigley RN administered the treatment and monitored the patient. HYPERBARIC TREATMENT: Number - 26 Planned number of treatments - 20 prior to dental procedure and 10 immediately after Compression Rate: 1.2 psi/min Decompression Rate: 2.5 psi/min TROY - 2.4 Start Compression Reach Treatment Pressure - TROY Air Break Start Air Break Completed Start Decompression Treatment Completed 0711 0729 0815 0825 0900 0909 Sechrist Chamber # 1 Encouraged patient to [...] Practice Guidelines for Hyperbaric Oxygen Therapy through [facility]. No interventions required today. Patient alert and oriented. Ambulating with steady gait. Patient assessed and found appropriate to leave the Hyperbaric area at the conclusion of today???s session. Continue HBOT as planned. Next treatment scheduled for 11/27/19. documented in this encounter Plan of Treatment Not on file documented as of this encounter Visit Diagnoses Diagnosis Osteoradionecrosis of jaw Other specified disease of the jaws documented in this encounter Care Teams Risk Control Field Representative Relationship Specialty Start Date End Date Marck Brody DO [address] [place] [address] PCP - General 02/08/10 10/12/21 documented as of this encounter
--- OUTSIDE RECORDS SUMMARY | 2023-12-08 20:03 | XMS_ITS | Encounter Summary ---
Author Organization [facility] [place] [address] Care Team Providers Care Nuclear Plant Equipment Operator Name Role Phone Marck Brody DO Primary Care Provider Encounter Details Date Type Department Care Team (Late st Contact Info) Description 01/09/2020 Orders [place] [phone] Kam Mclean PA [facility] [place] [address] Osteonecrosis of mandible Social History Tobacco Use [...] site documented in this encounter Care Teams Nuclear Plant Equipment Operator Relationship Specialty Start Date End Date Marck Brody DO [address] [place], [place] [id number] PCP - General 11/23/10 7/27/22 documented as of this encounter
--- OUTSIDE RECORDS SUMMARY | 2023-12-08 20:03 | XMS_ITS | Encounter Summary ---
Author Organization [facility] [place] [address] Care Team Providers Care Sales Representative Printing Name Role Phone Marck Brody DO Primary Care Provider [phone] Encounter Details Date Type Department Care Team (Late st Contact Info) Description 04/22/2020 Notes Only [place] [phone] Allegra Ndiaye, RN Social History Tobacco Use [...] Progress Notes * Allegra Ndiaye, RN - 04/22/2020 9:29 AM EST Theresa called this morning and is reporting a few different symptoms. First, she reports having continued pain around where her facial abscess was/is. She reports it has gotten better but isn't completely gone. Because of the pain, she made the decision herself to take some left over penicillin thatshe had, which she finished last night. She was also seen at [facility] in [facility] who prescribed her a topical ointment and recommended she call us. In addition to this she reports getting food stuck in her throat both on Sunday night and Sunday night. Since then the muscles in/around heresophagus have felt really tight and she states she just feels off. She also voices concern that something could be going on with her thyroid. I have sent a message to Dr. Ng as well as Dr. Lee's team for guidance on next steps for Theresa. documented in this encounter Plan of Treatment Not on file documented as of this encounter Visit Diagnoses Not on filedocumented in this encounter Care Teams Sales Representative Printing Relationship Specialty Start Date End Date Marck Brody DO [address] [place] [address] PCP - General 02/08/10 10/12/21 documented as of this encounter
--- OUTSIDE RECORDS SUMMARY | 2023-12-08 20:03 | XMS_ITS | Encounter Summary ---
Author Organization [facility] [place] [address] Care Team Providers Care Tinter Photograph Name Role Phone Marck Brody DO Primary Care Provider Reason for Visit * Auth/Cert Specialty Diagnoses / Procedures Referred By Shirley cuevas Referred To Contact Diagnoses osteoradionecrosis of the mandible Procedures PRO DEBRIDEMENT BONE MUSCLE &/FASCIA 20 SQ CM/< DEBRIDEMENT SKIN, SUBCU, MUSCLE, BONE, HEAD/NECK (WRVU 4.1) Referral ID Status Reason Start Date Expiration Date Visits Re quested Visits Authorized [id number] 1 1 Encounter Details Date Type Department Care Team (Latest Contact Info) Description 11/17/2019 8:52 AM EDT - 11/17/2019 4:19 PM EDT Hospital Encounter [place] [address] Keyur Ng MD [facility] [place] [address] Osteoradionecrosis of jaw Discharge Disposition: Home Social [...] Sign Reading Time Taken Comments Blood Pressure 115/77 11/17/2019 3:30 PM EDT Pulse 79 11/17/2019 2:45 PM EDT Temperature 37.4 ??C (99.3 ??F) 11/17/2019 2:28 PM ED T Respiratory Rate 16 11/17/2019 2:45 PM EDT Oxygen Saturation 95% 11/17/2019 3:30 PM EDT Inhaled Oxygen Concentration - - Weight 46.3 kg (102 lb) 11/17/2019 10:44 AM EDT Height 157.5 cm (5' 2) 11/17/2019 10:44 AM EDT Body Mass Index 18.66 11/17/2019 10:44 AM EDT documented in this encounter Discharge Instructions * Discharge Instructions* Jennifer Mustafa RN - 11/17/2019 3:08 PM EDT POST ANESTHESIA INSTRUCTIONS Go home, rest, use caution on stairs. Change positions slowly. Do not smoke if you are alone. Diet light to regular as tolerated today. If nausea occurs start with clear liquids and progress slowly. No driving, operating machinery, alcoholic beverages and no important decisions for 24 hours. Monitor IV site for signs and symptoms of infection: increasing redness, swelling, foul drainage, if occurs contact M.D. Patients who have had endotrachial tubes (this tube, used by anesthesia department, is passed down your throat after you are asleep, to ensure safe air passage during your operation). A sore throat is normal due to the tube. Cold liquids or soothing lozenges will help ease the discomfort. The generalized muscle aches are due to the medication given to you just before the tube is inserted. As the medication wears off, you may develop muscle soreness, which usually goes away in 12-24 hours. * Patient Instructions* Keyur Ng MD - 11/17/2019 2:54 PM EDT Use Peridex rinse but dilute it 50:50 with water of 75% water if it mckeon. On the Day of Surgery: DO NOT rinse your mouth, smoke, or use a straw when drinking. Any of these could cause you to bleed more. You should remain at home, rest, and avoid alcoholic beverages. Discomfort: It is not uncommon for you to have some discomfort following a surgical procedure. Thisdiscomfort may last for three days or more. Pain relievers such as ibuprofen or Tylenol (acetaminophen) may be taken - please follow the directions on the bottle. If a narcotic is prescribed, take this only as needed. Narcotic drugs may cause nausea. DO NOT take them on an empty stomach, and DO NOTdrive or consume alcohol while on narcotics. If prescribed Vicodin, usual dosage is 1-2 tablets every 4-6 hours as needed for pain. Total daily dosage SHOULD NOT EXCEED 8 tablets. If you decide to take the Vicodin, do not take Tylenol (acetaminophen) with it as Vicodin contains Tylenol. Other discomforts you may experience include: slight earache, sore throat, numbness or tingling in the lips or chin, aches in other teeth, and tightness of the jaw muscles. Bleeding: It is normal for the extraction site to bleed post-operatively. If bleeding continues, place gauze directly over the socket and bite down gently, but firmly, for 20 minutes. Repeat this process as needed. If bleeding is heavy, keep head elevated or sit upright, avoid exercise, hot liquids, smoking, and drinking from straws. If the bleeding does not stop with pressure, try a lukewarm, damp tea bag in place of the gauze for another 20 minutes. The tea bag will help to form blood clotsand stop the bleeding. If bleeding continues, call your doctor. Swelling: To reduce immediate swelling after your procedure, apply an ice pack, with pressure, to the face over the area of the procedure. Ice should be applied for 15-20 minutes at a time, for the first 24 hours. After 24 hours, a moist warm compress may be helpful. Most swelling will occur -00 hours following the procedure. Mouth Rinse: Vigorous mouth washing may cause bleeding to begin again if clots are not formed. DO NOT RINSE on the day of surgery. Begin rinsing one day after the procedure very gently with warm saltwater (1/2 teaspoon per 8 oz. warm water). Continue rinsing 3-6 times a day for several days. This will keep surgical sites clean and will help with healing. Diet: It is best to eat light, soft foods, and drink plenty of liquids following a surgical procedure. Foods like, yogurt, pasta, eggs, soups, and ice cream are good choices. Avoid hot liquids for 24hours after tooth extraction. Avoid foods that are difficult to chew. Once chewing becomes easier, you may return to your normal diet. In General: If stitches are used, they will dissolve or unravel in about three days to one week. Avoid strenuous exercise, such as jogging and contact sports for at least one week following surgery. Swelling is usually most extensive 24- 48 hours following surgery, and usually takes 4-5 days to subside. Sockets can take 4-6 weeks to heal, and often heal from the inside out. It may take 10-14 days before you feel like your normal self again. Infection: Can occur at any time, but it is evident more often 4-7 days after a procedure. Please contact us at the numbers below if you have one or more of the following: ? Temperature elevation greater than 100.5 ? Worsening swelling after the initial 48 hour period ? Severe and worsening pain ? Pus or other foul drainage from the extraction site ? Foul smell or taste coming from the extraction site ? Generalized body chills or fever Dr. Ng can be reached at [phone] between the hours of 5PM-10PM and on weekends. During business hours 8am-5pm M-F please call our office at [phone]. documented in this encounter Medications at Time [...] of this encounter Progress Notes * Jennifer Mustafa RN - 11/17/2019 4:13 PM EDT Patient Name: Theresa Hollis Patient Age: 49 y.o. Birthdate: 1970 Admit date: 11/17/2019 Attending Physician: Keyur Ng MD documented in this encounter H&P Notes * Keyur Ng MD - 11/17/2019 11:15 AM EDT The patient's history and physical exam have been reviewed and completed. There has been no interval change from that of the pre-operative history and physical exam done within the last 30 days. No change in oral exam. Caries of #2 and confirmed with patient this tooth needs to be removed Cardiovascular: Regular rate and rhythm, S1 and S2 noted. No murmurs, rubs, or gallops. Lungs: CTAB, normal work of breathing. Plan is to remove multiple lower teeth (all except #31 unless caries is significant), debride bone with biopsy and Apply platelet rich fibrin. Dparq/consent. Keyur Ng MD documented in this encounter Miscellaneous Notes * Op Note - Keyur Ng MD - 11/17/2019 2:50 PM EDT [facility] Operative [place] Patient Name: Theresa Hollis : [id number] MR#: [id number] Case Date: 11/17/2019 Surgeon: Surgeon(s) and Role: * Keyur Ng MD , DMD, FACS - Primary Preoperative diagnosis: osteoradionecrosis of the mandible Postoperative diagnosis: osteoradionecrosis of the mandible Procedure(s) (LRB): DEBRIDEMENT SKIN, SUBCU, MUSCLE, BONE, HEAD/NECK (WRVU 4.1) (Bilateral) SURGICAL EXTRACTIONS REQUIRING ELEVATION OF MUCOPERIOSTEAL FLAP AND REMOVAL OF BONE OR SECTION OF TOOTH (WRVU 1.09) (Bilateral) #21,22,30,2 INJECTION(S), PLATELET RICH PLASMA, ANY SITE, INCLUDING IMAGE GUIDANCE, HARVESTING AND PREPARATION WHEN PERFORMED Anesthesia: General Findings: Large necrotic bone in anterior mandible, teeth #21,22 and caries of #2 Complications: none, no sign of fracture Intake: Intraprocedure Crystalloid Total Intake Lactated Ringers 800.00 mL Total Intake 800 mL Output Blood Loss 15 mL Total Output 15 mL Net Net Volume 785 mL Transfusion No data found in the last 1 encounters. Output: Estimated Blood Loss: * No values recorded between 11/17/2019 1:08 PM and 11/17/2019 2:03 PM * Urine Output:: (no urine output recorded) Other Output: (no other output recorded) See anesthesia record for full details Drains: none Specimens removed during surgery: Order Name Source Comment Collection Info Order Time SPECIMEN TO PATHOLOGY osteoradionecrosis of the mandible necrotic anterior mandibule. biopsy 11/17/2019 1:18 PM Time specimen removed from patient: 1:17 PM Number of tissue samples (in container) 1 Drains: * No LDAs found * Surgical [...] and Physical for full details. Procedure Description: The patient was brought to the operating room and placed under general anesthesia via nasoendotracheal tube. The Patient was prepped and draped in the standard fashion for oraland maxillofacial surgery. The oral cavity was suctioned and an oral pharyngeal pack was placed. approx 10cc of 1% Xylocaine with 1-200,000 epinephrine was used to infiltrate the surgical sites. SURGICAL EXTRACTION of teeth #21,22,30,2,were performed. It required incision of surrounding gingiva and reflection of a mucoperiosteum flap together with removal of bone (all teeth) to facilitate their removal. Necrotic bone was identified associated with #21,22 and this was removed. It was approximately 4-5 centimeters. No mandibular fracture was identified. Teeth #27/28 were stable and there was solid bone circumferentially around this tooth. There was a large carious lesion in the mesial aspect the pulp tooth #30. Subsequently tooth #30 was extracted using a forcep elevator technique and Aliza mucoperiosteal flap was developed and bone removed on the buccal in order to remove this tooth. The necrotic bone was debrided and sent for both pathology and microbiology. Using a curette all ofthe granulation tissue was removed from the bone and debrided down to healthy bone. Platelet rich fibrin membranes were then secured in the bony defect and tacked to the surrounding deep periosteum and mucosa. Attempt was made to undermine and gain primary closure of the mucosa but due to scarring and poor radiation tissue primary closure was difficult to obtain in a tension-free manner although primary closure was obtained but there was tension. Attention was then turned to tooth #2 which was removed using a forcep elevator technique after removing buccal bone the periosteal flap. There was no evidence of injury to adjacent teeth, nerves, sinuses, or fracture. A bite block was used to minimize pressure on the TMJoint. No evidence of injury to the sinuses exposure, inferior alveolar nerve or jaw fracture was noted. The oral cavity was then carefully suctioned and the oral pharyngeal pack was removed. The patient was awakened, extubated and brought to the recovery room in satisfactory condition having tolerated the procedure well with a minimum of blood loss. All needle counts and sponge counts were correct. Disposition: Patient will go home pending meeting discharge criteria. Infection Bundle used? N/A Attestation: Case Date: 11/17/2019 I performed this procedure without the involvement of a resident. Keyur Ng MD 11/17/2019 * Brief Op Note - Keyur Ng MD - 11/17/2019 2:47 PM EDT Brief Operative Note Patient Name: Theresa Hollis : [id number] MR#: [id number] Case Date: 11/17/2019 Surgeon: Surgeon(s) and Role: * Keyur Ng MD , [facility], [facility] - Primary Preoperative diagnosis: osteoradionecrosis of the mandible Postoperative diagnosis: osteoradionecrosis of the mandible Procedure(s) (LRB): DEBRIDEMENT SKIN, SUBCU, MUSCLE, BONE, HEAD/NECK (WRVU 4.1) (Bilateral) SURGICAL EXTRACTIONS REQUIRING ELEVATION OF MUCOPERIOSTEAL FLAP AND REMOVAL OF BONE OR SECTION OF TOOTH (WRVU 1.09) (Bilateral) #21,22,30,2 INJECTION(S), PLATELET RICH PLASMA, ANY SITE, INCLUDING IMAGE GUIDANCE, HARVESTING AND PREPARATION WHEN PERFORMED Anesthesia: General Findings: Large necrotic bone in anterior mandible, teeth #21,22 and caries of #2 Complications: none, no sign of fracture Intake: Intraprocedure Crystalloid Total Intake Lactated Ringers 800.00 mL Total Intake 800 mL Output Blood Loss 15 mL Total Output 15 mL Net Net Volume 785 mL Transfusion No data found in the last 1 encounters. Output: Estimated Blood Loss: * No values recorded between 11/17/2019 1:08 PM and 11/17/2019 2:03 PM * Urine Output:: (no urine output recorded) Other Output: (no other output recorded) See anesthesia record for full details Drains: none Specimens removed during surgery: Order Name Source Comment Collection Info Order Time SPECIMEN TO PATHOLOGY osteoradionecrosis of the mandible necrotic anterior mandibule. biopsy 11/17/2019 1:18 PM Time specimen removed from patient: 1:17 PM Number of tissue samples (in container) 1 Disposition: awakened from anesthesia, extubated and taken to the recovery room in a stable condition, having suffered no apparent untoward event. Condition: doing well without problems Attestation: Case Date: 11/17/2019 I performed this procedure without the involvement of a resident. (Please see the Surgical Encounter Summary for any Implant and Specimen details pertinent to this patient.) Infection Bundle used? N/A documented in this encounter Plan of Treatment Not on file documented as of this encounter Procedures Procedure Name Priority Date/Time Associated Diagnosis Comments ANAEROBIC CULTURE Routine 11/17/2019 1:1 9 PM EDT HC BONE CULTURE Routine 11/17/2019 1:19 PM EDT BONE CULTURE Routine 11/17/2019 1:19 PM EDT SPECIMEN TO PATHOLOGY Routine 11/17/2019 1:18 PM EDT SURGICAL PATHOLOGY REPORT Routine 11/17/2019 1:17 PM EDT INJECTION(S), PLATELET RICH PLASMA, ANY SITE, INCLUDING IMAGE GUIDANCE, HARVESTING AND PREPARATION WHEN PERFORMED Routine 11/17/2019 1:16 PM EDT Osteoradionecrosis of jaw Injection Platelet Plasma W Image, [place]/Prep, 30/60Ml Kit ([id number]) Yes 11/17/2019 12:24 PM EDT Osteoradionecrosis of jaw SURGICAL EXTRACTIONS REQUIRING ELEVATION OF MUCOPERIOSTEAL FLAP AND REMOVAL OF BONE OR SECTION OF TOOTH (WRVU 1.09) Yes 11/17/2019 12:24 PM EDT Osteoradionecrosis of jaw Debridement Bone Muscle &/Fascia 20 Sq Cm/< (27834) Yes 11/17/2019 12:24 PM EDT Osteoradionecrosis of jaw SURG EXTRAC REQUIR ELEVAT MUCPERISTEAL FLAP/SHAHNAZ BONE/SECT TOOTH Routine 11/17/2019 10:21 AM EDT Osteoradionecrosis of jaw DEBRIDEMENT SKIN, SUBCU, MUSCLE, BONE, HEAD/NECK Routine 11/17/2019 10:21 AM EDT Osteoradionecrosis of jaw documented in this encounter Results * Anaerobic Culture (11/17/2019 1:19 PM EDT) Anaerobic Culture No anaerobic organisms isolated [facility] Specimen from bone (specimen) FACE STRUCTURE / Unknown 11/17/2019 1:19 PM EDT 11/17/2019 1:31 PM EDT Comment:NECROTIC ANTERIOR MA NDIBULE. Narrative Resulting Agency Comment Spec In Lab Keyur Ng MD MICROBIOLOGY - GENER AL ORDERABLES Performing Organization Address [facility] Co de Phone Number [facility] [place] [address] * (ABNORMAL) Bone Culture (11/17/2019 1:19 PM EDT) Bone Culture Moderate mixed Gram Positive organisms : probable normal oropharyngeal parisa(A) [facility] Gram Stain Few Neutrophils Many Gram Positive Cocci Many Gram Positive Rods Few Gram Negative Rods (A) [facility] Organism Gram Positive Cocci(A) [facility] Organism Gram Positive Rods(A) [facility] Organism Gram Negative Rods(A) [facility] Specimen from bone (specimen) FACE STRUCTURE / Unknown 11/17/2019 1:19 PM EDT 11/17/2019 1:31 PM EDT Comment:NECROTIC ANTERIOR MA NDIBULE. Narrative Resulting Agency Comment Spec In Lab Keyur Ng MD MICROBIOLOGY - GENER AL ORDERABLES Performing Organization Address [facility] Co de Phone Number [facility] [place] [address] * Specimen to Pathology (11/17/2019 1:18 PM EDT) AP Specimen 11/17/2019 1:18 PM EDT 11/17/2019 1:18 PM EDT Narrative [facility] - 11/17/2019 1:18 PM EDT Specimen requisition ordered. ??Separate Pathology report to follow Keyur Ng MD PATHOLOGY/CYTOLOGY O RDERABLES Performing Organization Address [facility] Co de Phone Number [facility] [place] [address] * Surgical Pathology Report (11/17/2019 1:17 PM EDT) Final Diagnosis [id number] ? Location: SD; SD38; A The signing pathologist has (i) examined the relevant preparation(s) for the specimen(s) and (ii) rendered or confirmed the diagnosis(es). . ?Surgical Pathology DIAGNOSIS Necrotic anterior mandibule, biopsy: Fragments of bone with osteonecrosis. Electronically signed by: ??Arielle TAYLOR, Katina Acevedo Verified: ??11/24/2019 ?Pathologist Performed at: ??-[facility] Dept. of Pathology, [place], [place] SPECIMEN(S) SUBMITTED A - Necrotic anterior mandibule, biopsy (1) CLINICAL INFORMATION Osteoradionecro sis of the mandible SPECIMEN PROCESSING A - Labeled/Fixativ e: Necrotic anterior mandible, fresh. Quantity/Size: Single, 1.5 x 0.7 x 0.2 cm. Tissue Description: Dull, pink-yellow bone fragment. Sections/Proces sing: Blocks submitted for decalcification : A-1. Trisected and entirely submitted in 1 cassette labeled A1. ??ajw 11/24/2019 1:19 PM EDT [facility] BONE STRUCTURE / Unknown 11/17/2019 1:17 PM EDT 11/17/2019 1:17 PM EDT Keyur Ng MD PATHOLOGY/CYTOLOGY Osman MARTIN Performing Organization Address City/State/[facility] Co de Phone Number [facility] [place] [address] documented in this encounter Visit Diagnoses Diagnosis Osteoradionecrosis of jaw- Primary Other specified disease of the jaws documented in this encounter Admitting Diagnoses Diagnosis Osteoradionecrosis of jaw Other specified disease of the jaws documented in this encounter Administered Medications Inactive Administered Medications - up to 3 most recent administrations Medication Order MAR Action Action Date Dose Rate Site fentaNYL 50 mcg/mL multi-dose injection 12.5-25 mcg, Intravenous, EVERY 5 MIN PRN, Starting on Sun11/17/19 at 1434, Until Sun11/17/19 at 1820, Pain, Give 12.5 mcg every 5 minutes PRN for mild to moderate pain (1-5) Give 25 mcg every 5 minutes PRN for moderate to severe pain (6-10). Hold for respiratory rate less than 10 per minute. Maximum dose 250 mcg over one hour. If ordered with hydromorphone or morphine, give hydromorphone or morphine first and use fentanyl for breakthrough pain., Recovery (Recovery-Hospital Unit), Routine naloxone (NARCAN) injection 0.04 mg 0.04 mg, Intravenous, EVERY 5 MIN PRN, Starting on Sun11/17/19 at 1434, Until Sun11/17/19 at 1820, Opioid Reversal, for respiratory rate less than 6 or unresponsive., May repeat every 5 minutes to increase respiratory rate. DO NOT exceed 0.12 mg total dose. Notify anesthesia immediately if administered., Recovery (Recovery-Hospital Unit), Routine ondansetron (ZOFRAN) injection 4 mg 4 mg, Intravenous, EVERY 30 MIN PRN, Starting on Sun11/17/19 at 1434, Until Sun11/17/19 at 1820, Nausea, May repeat 4 mg once in 30 minutes. If multiple antiemetics ordered, use ondansetron first and if ineffective use prochlorperazine second and if ineffective use promethazine, Recovery (Recovery-Hospital Unit) promethazine (PHENERGAN) injection 12.5 mg 12.5 mg, Intravenous, EVERY 30 MIN PRN, Nausea, Starting on Sun11/17/19 at 1434, 2 doses, Until Sun11/17/19 at 1820, VESICANT - Dilute with a minimum of 10 mL saline. LARGE VEIN only. Inject over 10 minutes into the farthest port of a running IV infusion. Remain with the patient and STOP infusion immediately if patient reports burning. Avoid extravasation. If multiple antiemetics are ordered, use ondansetron first and if ineffective use prochlorperazine second and if ineffective use promethazine., Recovery (Recovery-Hospital Unit) documented in this encounter Active and Recently Administered Medications Times are shown in EDT. PRN Medication Order 11/15/2019 11/16/2019 11/17/2019 fentaNYL 50 mcg/mL multi-dose injection 12.5-25 mcg, Intravenous, EVERY 5 MIN PRN, Starting on Sun11/17/19 at 1434, Until Sun11/17/19 at 1820, Pain, Give 12.5 mcg every 5 minutes PRN for mild to moderate pain (1-5) Give 25 mcg every 5 minutes PRN for moderate to severe pain (6-10). Hold for respiratory rate less than 10 per minute. Maximum dose 250 mcg over one hour. If ordered with hydromorphone or morphine, give hydromorphone or morphine first and use fentanyl for breakthrough pain., Recovery (Recovery-Hospital Unit), Routine lidocaine-EPINEPHrine 1 %-1:100,000 injection (CANCELED) ONCE PRN, Starting on Sun11/17/19 at 1307, Until Sun11/17/19 at 1820, Intra-Operative (Intra-Procedure), Routine 1307 (Given - Provid er: Keyur Ng MD)1330 (Given - Provider: Keyur Ng MD) naloxone (NARCAN) injection 0.04 mg 0.04 mg, Intravenous, EVERY 5 MIN PRN, Starting on Sun11/17/19 at 1434, Until Sun11/17/19 at 1820, Opioid Reversal, for respiratory rate less than 6 or unresponsive., May repeat every 5 minutes to increase respiratory rate. DO NOT exceed 0.12 mg total dose. Notify anesthesia immediately if administered., Recovery (Recovery-Hospital Unit), Routine ondansetron (ZOFRAN) injection 4 mg 4 mg, Intravenous, EVERY 30 MIN PRN, Starting on Sun11/17/19 at 1434, Until Sun11/17/19 at 1820, Nausea, May repeat 4 mg once in 30 minutes. If multiple antiemetics ordered, use ondansetron first and if ineffective use prochlorperazine second and if ineffective use promethazine, Recovery (Recovery-Hospital Unit) promethazine (PHENERGAN) injection 12.5 mg 12.5 mg, Intravenous, EVERY 30 MIN PRN, Nausea, Starting on Sun11/17/19 at 1434, 2 doses, Until Sun11/17/19 at 1820, VESICANT - Dilute with a minimum of 10 mL saline. LARGE VEIN only. Inject over 10 minutes into the farthest port of a running IV infusion. Remain with the patient and STOP infusion immediately if patient reports burning. Avoid extravasation. If multiple antiemetics are ordered, use ondansetron first and if ineffective use prochlorperazine second and if ineffective use promethazine., Recovery (Recovery-Hospital Unit) documented in this encounter Care Teams Tinter Photograph Relationship Specialty Start Date End Date Marck Brody DO [address] [place] [address] PCP - General 02/08/10 10/12/21 documented as of this encounter
--- OUTSIDE RECORDS SUMMARY | 2023-12-08 20:03 | XMS_ITS | Encounter Summary ---
Author Organization [facility] [place] [address] Care Team Providers Care Technical Instructor Name Role Phone Marck Brody DO Primary Care Provider [phone] Encounter Details Date Type Department Care Team (Late st Contact Info) Description 01/02/2020 Notes Only [place] [phone] Allegra Ndiaye, RN Social History Tobacco Use [...] Progress Notes * Allegra Ndiaye, RN - 01/02/2020 12:43 PM EDT Spoke to Theresa today after she had called and left a message with a new update on symptoms she is experiencing. On Sunday night she noticed that the swelling and bump on her chin looked different. In her words, she stated it looked like a boil. On she went to [facility] clinic associated with [facility] where her PCP is located. She stated that they performed a culture of the drainage coming from the area and prescribed her clindamycin as well as a topical medication for possible fungus noted in the area. The culture is still pending and Theresa has been directed to apply warm compresses as well as utilize a Vaseline ointment on the area when wearing a mask. Allof this has been recommended for Theresa to do in addition to the two prescriptions she was given. Theresa stated that they think this was caused from excessive saliva that runs down the side of her facedue to her history and multiple surgeries in combination with wearing a mask which is trapping the s aliva in that area. Dr. Ng had noted previously that if Theresa continued to have issues in this area that he would want to see her sooner then her scheduled appointment. Theresa has agreed to comein to be seen by Dr. Ng this Sunday at 0900 so that he can also examine this in person. documented in this encounter Plan of Treatment Not on file documented as of this encounter Visit Diagnoses Not on filedocumented in this encounter Care Teams Technical Instructor Relationship Specialty Start Date End Date Marck Brody DO [address] [place] [address] PCP - General 02/08/10 10/12/21 documented as of this encounter
--- OUTSIDE RECORDS SUMMARY | 2023-12-08 20:03 | XMS_ITS | Encounter Summary ---
Author Organization [facility] [place] [address] Care Team Providers Care Hosiery Pairer Name Role Phone Marck Brody DO Primary Care Provider [phone] Reason for Visit * Reason Comments Follow-up Post op, Encounter Details Date Type Department Care Team (Latest Contact Info) Description 11/20/2019 10:00 AM EDT Office [place] [address] Roberth Little MD [facility] [place] [address] Osteonecrosis of mandible; H/O tongue cancer; Dental decay Social History Tobacco Use Types Packs/Day Years [...] - Inhaled Oxygen Concentration - - Weight 45 kg (99 lb 3.2 oz) 11/20/2019 9:30 AM E DT Height 157.5 cm (5' 2) 11/20/2019 9:30 AM EDT Body Mass Index 18.14 11/20/2019 9:30 AM EDT documented in this encounter Progress Notes * Roberth Little MD - 11/20/2019 10:00 AM EDT [facility] OTOLARYNGOLOGY HEAD AND NECK TUMOR CLINIC FOLLOW UP NOTE Theresa Hollis is a 49 y.o. female followed for: Primary site: Left lateral tongue Stage: [id number] Surgery(ies): 10/31/06 - Hemiglossectomy, left neck dissection 1-5, skin graft, allograft Radiation: TREATMENT STARTED: 11/28/06 TREATMENT COMPLETED: 01/14/07 TREATMENT: The total maximum dose was 6600 cGy in 33 fractions. Volume reductions were instituted at 5400 cGy in 30 fractions &??6000 cGy in 30 fractions. Chemotherapy: Concurrent cisplatin?? New issues since last visit: On Sunday had extractions and debridement by Dr. Ng. Currently completing her 10 post treatment HBOT dives. Overall feels good. PROBLEM LIST Patient Active Problem List Diagnosis [...] Refill ??? amoxicillin-clavulanate (Augmentin) 875-125 mg Tablet Take 1 tablet by mouth 2 times daily. Ok to crush and place in applesauce 20 tablet 0 ??? vitamin E (vitamin E) 400 unit Capsule Take 400 Units by mouth daily. Take daily while receiving hyperbaric treatments ??? acetaminophen (Tylenol) 160 mg/5 mL Suspension Take 15 mg/kg/dose by mouth as needed for Fever. ??? levothyroxine (Synthroid) 88 mcg Tablet Take 88 mcg by mouth daily. ??? ibuprofen (ADVIL;MOTRIN) 100 mg/5 mL Suspension Take by mouth every 4 hours as needed for Fever. ??? chlorhexidine (Peridex) 0.12 % Mouthwash Take 15 mLs by mouth 2 times daily for 21 days. 210 mL3 ??? clindamycin (CLEOCIN) 300 mg Capsule Take 1 capsule by mouth 3 times daily. (Patient not taking: Reported on 11/20/2019) 30 capsule 0 ??? calcium carbonate (TUMS) 200 mg calcium (500 mg) Tablet, Chewable Take 2 tablets by mouth daily. No current facility-administered medications on file [...] EXAMINATION Wt Readings from Last 3 Encounters: 11/20/19 45 kg (99 lb 3.2 oz) 11/17/19 46.3 kg (102 lb) 03/26/19 43.1 kg (95 lb) General: Well developed, no distress Head/face: Normocephalic, atraumatic Oral cavity: S/p left partial glossectomy with no recurrence. Oral cavity appears to be healing as expected. Oropharynx: Normal soft palate, tonsils, lateral pharyngeal wall, posterior pharynx. Neck: No adenopathy, significant post treatment fibrosis. Resp: Post glossectomy voice with wet speech. No stridor. Normal respirations. Skin: Normal skin survey of the head and neck. MSK: No trismus, normal neck range of motion Neuro: AxOx3; CN II-XII is grossly intact Psych: Normal mood and affect. Responds appropriately to questions. PROCEDURES None REVIEW OF IMAGES None ASSESSMENT/RECOMMENDATIONS No evidence of recurrence Continue HBOT I will see her back in 6 months I appreciate the opportunity to be involved in Ms. Hollis's care. ROBERTH LITTLE MD 11/20/2019 documented in this encounter Plan of Treatment Not on file documented as of this encounter Visit Diagnoses Diagnosis Osteonecrosis of mandible Aseptic necrosis of other bone site H/O tongue cancer Personal history of malignant neoplasm of tongue Dental decay Unspecified dental caries documented in this encounter Care Teams Hosiery Pairer Relationship Specialty Start Date End Date Marck Brody DO [address] [place] [address] PCP - General 02/08/10 10/12/21 documented as of this encounter
--- OUTSIDE RECORDS SUMMARY | 2023-12-08 20:03 | XMS_ITS | Encounter Summary ---
Author Organization [facility] [place] [address] Care Team Providers Care Director Of Clinical Services Name Role Phone Marck Brody DO Primary Care Provider [phone] Encounter Details Date Type Department Care Team (Late st Contact Info) Description 12/24/2019 Notes Only [place] [phone] Allegra Ndiaye, RN Social History Tobacco Use [...] Progress Notes * Allegra Ndiaye, RN - 12/24/2019 7:59 AM EDT Theresa called to report that yesterday she woke up with swelling on the left side of her jaw and in the area of her chin. At first she thought maybe it was related to her sleeping on her side and possibly clenching her jaw, but taking ibuprofen, and avoiding laying on her side has not seemed to makemuch of a difference. I reviewed this with Dr. Ng who recommended a course of Augmentin. Thishas been sent to the patient's preferred pharmacy. Theresa has an appointment with her PCP on Sunday and will have him evaluate things then. I asked her to please call us back on Sunday after that appointment so that we can help create a plan moving forward. documented in this encounter Plan of Treatment Not on file documented as of this encounter Visit Diagnoses Not on filedocumented in this encounter Care Teams Director Of Clinical Services Relationship Specialty Start Date End Date Marck Brody DO [address] [place] [address] PCP - General 02/08/10 10/12/21 documented as of this encounter
--- OUTSIDE RECORDS SUMMARY | 2023-12-08 20:03 | XMS_ITS | Encounter Summary ---
[place] [address] Care Team Providers Care Automobile Washer Steam Name Role Phone Marck Brody DO Primary Care Provider [phone] Encounter Details Date Type Department Care Team (Late st Contact Info) Description 01/23/2020 Telephone [place] [phone] Juanita Walters RN Social History Tobacco Use [...] Telephone Encounter - Juanita Walters RN - 01/23/2020 10:35 AM EST Patient's call returned. Patient is requesting CT results/interpretation. Dr. Lee and Dr. Ng made aware of patient's request. Patient thankful for this communication. documented in this encounter Plan of Treatment Not on file documented as of this encounter Visit Diagnoses Not on filedocumented in this encounter Care Teams Automobile Washer Steam Relationship Specialty Start Date End Date Marck Brody DO [address] [place] [address] PCP - General 02/08/10 10/12/21 documented as of this encounter
--- OUTSIDE RECORDS SUMMARY | 2023-12-08 20:03 | XMS_ITS | Encounter Summary ---
Author Organization [facility] [place] [address] Care Team Providers Care Email Designer Name Role Phone Marck Brody DO Primary Care Provider Encounter Details Date Type Department Care Team (Late st Contact Info) Description 02/23/2020 Telephone [place] [phone] Fabiola Gagnon Social History Tobacco Use Types [...] * Telephone Encounter - Fabiola Gagnon - 02/23/2020 10:54 AM EST LVM on [phone] of scheduled appointments with [facility] and [facility] and requested call back to confirm or re-anabelle. Future Appointments Date Time Provider Department Center 03/22/2020 9:30 AM Keyur Ng MD [facility] 03/22/2020 10:30 AM Roberth Lee MD [facility] documented in this encounter Plan of Treatment Not on file documented as of this encounter Visit Diagnoses Not on filedocumented in this encounter Care Teams Email Designer Relationship Specialty Start Date End Date Marck Brody DO [address] [place] [address] PCP - General 02/08/10 10/12/21 documented as of this encounter
--- OUTSIDE RECORDS SUMMARY | 2023-12-08 20:03 | XMS_ITS | Encounter Summary ---
Author Organization [facility] [place] [address] Care Team Providers Care Logistics Operations Director Name Role Phone Marck Brody DO Primary Care Provider Encounter Details Date Type Department Care Team (Late st Contact Info) Description 11/17/2019 Notes Only [facility] [place] [place] [address] Cuba Mcdonald Jr., MD [facility] [place] [address] Social History Tobacco Use Types Packs/Day Years [...] Notes * Cuba Mcdonald Jr., MD - 11/17/2019 7:43 AM EDT Has completed 19 of a planned 20 treatments. Progress has been reviewed. No new labs, or medications. Has seen anesthesia for her procedure today after her 20th treatment. Vital signs have been stable. Complications: Has been having significant visual changes. -1.75 diopters on right, -2.0 diopters on left. Follow up plan: Will have procedure today and then return for an additional 10. documented in this encounter Plan of Treatment Not on file documented as of this encounter Visit Diagnoses Not on filedocumented in this encounter Care Teams Logistics Operations Director Relationship Specialty Start Date End Date Marck Brody DO [address] [place] [address] [address] [place] [address] PCP - General 02/08/10 10/12/21 documented as of this encounter
--- OUTSIDE RECORDS SUMMARY | 2023-12-08 20:03 | XMS_ITS | Encounter Summary ---
[place] [address] Care Team Providers Care Delphi Developer Name Role Phone Marck Brody DO Primary Care Provider [phone] Encounter Details Date Type Department Care Team (Late st Contact Info) Description 12/15/2019 Telephone [place] [address] Laura Centeno Social History Tobacco Use Types [...] * Telephone Encounter - Laura Centeno - 12/15/2019 4:32 PM EDT [facility] is calling to make you aware of a scheduled appointment on 02/09/20 . Please call [phone] to confirm the appointment. Future Appointments Date Time Provider Department Center 12/25/2019 10:00 AM Roberth Lee MD [facility] 02/09/2020 3:30 PM Keyur Ng MD [facility] documented in this encounter Plan of Treatment Not on file documented as of this encounter Visit Diagnoses Not on filedocumented in this encounter Care Teams Delphi Developer Relationship Specialty Start Date End Date Marck Brody DO [address] [place] [address] PCP - General 02/08/10 10/12/21 documented as of this encounter
--- OUTSIDE RECORDS SUMMARY | 2023-12-08 20:03 | XMS_ITS | Encounter Summary ---
Author Organization [facility] [place] [address] Care Team Providers Care Air Force Senior Officer Name Role Phone Marck Brody DO Primary Care Provider [phone] Reason for Visit * Auth/Cert Specialty Diagnoses / Procedures Referred By Shirley t Referred To Contact Diagnoses osteoradionecrosis of the mandible Procedures PRO DEBRIDEMENT BONE MUSCLE &/FASCIA 20 SQ CM/< DEBRIDEMENT SKIN, SUBCU, MUSCLE, BONE, HEAD/NECK (WRVU 4.1) Referral ID Status Reason Start Date Expiration Date Visits Re quested Visits Authorized [id number] 1 1 Encounter Details Date Type Department Care Team (Late st Contact Info) Description 11/17/2019 10:24 AM EDT - 11/17/2019 12:59 PM EDT [place] [address] [facility] [place] [address] DEBRIDEMENT SKIN, SUBCU, MUSCLE, BONE, HEAD/NECK (WRVU 4.1) Social History Tobacco Use Types Packs/Day Years [...] Sign Reading Time Taken Comments Blood Pressure 120/72 11/17/2019 10:44 AM EDT Pulse 67 11/17/2019 10:44 AM EDT Temperature 37.3 ??C (99.1 ??F) 11/17/2019 10:44 AM E DT Respiratory Rate 18 11/17/2019 10:44 AM EDT Oxygen Saturation 99% 11/17/2019 10:44 AM EDT Inhaled Oxygen Concentration - - [...] may be helpful. Most swelling will occur [id number] hours following the procedure. Mouth Rinse: Vigorous [...] fever Dr. Ng can be reached at [phone] between the hours of 5PM-10PM and on weekends. During business hours 8am-5pm M-F please call our office at [phone]. documented in this encounter Medications at Time [...] 11/17/2019 4:13 PM EDT Patient Name: Theresa Holils Patient Age: 49 y.o. Birthdate: 1970 Admit [...] Ng MD - 11/17/2019 2:50 PM EDT [facility] Operative Note Patient Name: Theresa Hollis : [id number] MR#: [id number] Case Date: 11/17/2019 Surgeon: Surgeon(s) and Role: [...] Operative Note Patient Name: Theresa Hollis : [id number] MR#: [id number] Case Date: 11/17/2019 Surgeon: Surgeon(s) and Role: [...] of jaw Injection Platelet Plasma W Image, [place]/Prep, 30/60Ml Kit ([id number]) Yes 11/17/2019 12:24 PM EDT Osteoradionecrosis of jaw SURGICAL EXTRACTIONS REQUIRING ELEVATION OF MUCOPERIOSTEAL FLAP AND REMOVAL OF BONE OR SECTION OF TOOTH (WRVU 1.09) Yes 11/17/2019 12:24 PM EDT Osteoradionecrosis of jaw Debridement Bone Muscle &/Fascia 20 Sq Cm/< (28302) Yes 11/17/2019 12:24 PM EDT Osteoradionecrosis of jaw SURG EXTRAC REQUIR ELEVAT MUCPERISTEAL FLAP/SHAHNAZ BONE/SECT TOOTH Routine 11/17/2019 10:21 AM EDT Osteoradionecrosis of jaw DEBRIDEMENT SKIN, SUBCU, MUSCLE, BONE, HEAD/NECK Routine 11/17/2019 10:21 AM EDT Osteoradionecrosis of jaw documented in this encounter Results * Anaerobic Culture (11/17/2019 1:19 PM EDT) Anaerobic Culture No anaerobic organisms isolated [facility] Specimen from bone (specimen) FACE STRUCTURE / Unknown 11/17/2019 1:19 PM EDT 11/17/2019 1:31 PM EDT Comment:NECROTIC ANTERIOR MA NDIBULE. Narrative Resulting Agency Comment Spec In Lab Keyur Ng MD MICROBIOLOGY - GENER AL ORDERABLES Performing Organization Address [facility] Co de Phone Number [facility] [place] [address] * (ABNORMAL) Bone Culture (11/17/2019 1:19 PM EDT) Bone Culture Moderate mixed Gram Positive organisms : probable normal oropharyngeal parisa(A) [facility] Gram Stain Few Neutrophils Many Gram Positive Cocci Many Gram Positive Rods Few Gram Negative Rods (A) [facility] Organism Gram Positive Cocci(A) [facility] Organism Gram Positive Rods(A) [facility] Organism Gram Negative Rods(A) [facility] Specimen from bone (specimen) FACE STRUCTURE / Unknown 11/17/2019 1:19 PM EDT 11/17/2019 1:31 PM EDT Comment:NECROTIC ANTERIOR MA NDIBULE. Narrative Resulting Agency Comment Spec In Lab Keyur Ng MD MICROBIOLOGY - GENER AL ORDERABLES Performing Organization Address [facility] Co de Phone Number [facility] [place] [address] * Specimen to Pathology (11/17/2019 1:18 PM EDT) AP Specimen 11/17/2019 1:18 PM EDT 11/17/2019 1:18 PM EDT Narrative [facility] - 11/17/2019 1:18 PM EDT Specimen requisition ordered. ??Separate Pathology report to follow Keyur Ng MD PATHOLOGY/CYTOLOGY O RDERABLES Performing Organization Address [facility] Co de Phone Number [facility] [place] [address] * Surgical Pathology Report (11/17/2019 1:17 PM EDT) Final Diagnosis [id number] ? Location: SDP; SD38; A The signing pathologist has (i) examined the relevant preparation(s) for the specimen(s) and (ii) rendered or confirmed the diagnosis(es). . ?Surgical Pathology DIAGNOSIS Necrotic anterior mandibule, biopsy: Fragments of bone with osteonecrosis. Electronically signed by: ??Arielle TAYLOR, Katina Acevedo Verified: ??11/24/2019 ?Pathologist Performed at: ??-[facility] Dept. of Pathology, [place], [place] SPECIMEN(S) SUBMITTED A - Necrotic anterior mandibule, biopsy (1) CLINICAL INFORMATION Osteoradionecro sis of the mandible SPECIMEN PROCESSING A - Labeled/Fixativ e: Necrotic anterior mandible, fresh. Quantity/Size: Single, 1.5 x 0.7 x 0.2 cm. Tissue Description: Dull, pink-yellow bone fragment. Sections/Proces sing: Blocks submitted for decalcification : A-1. Trisected and entirely submitted in 1 cassette labeled A1. ??ajw 11/24/2019 1:19 PM EDT [facility] BONE STRUCTURE / Unknown 11/17/2019 1:17 PM EDT 11/17/2019 1:17 PM EDT Keyur Ng MD PATHOLOGY/CYTOLOGY O RDERABLES [facility] [place] [address] documented in this encounter Visit Diagnoses Diagnosis Osteoradionecrosis of jaw- Primary Other specified disease of the jaws Osteoradionecrosis of jaw Other specified disease of [...] (Recovery-Hospital Unit), Routine lidocaine-EPINEPHrine 1 %-1:100,000 injection ONCE PRN, Starting on Sun11/17/19 at 1307, Until Sun11/17/19 at 1820, Intra-Operative (Intra-Procedure), Routine Given 11/17/2019 1:30 PM EDT 7 mLs Given 11/17/2019 1:07 PM EDT 5 mLs naloxone (NARCAN) injection 0.04 mg 0.04 mg, [...] Unit) documented in this encounter Care Teams Air [employer] Senior Officer Relationship Specialty Start Date End Date Marck Brody DO [address] [place] [address] [address] [place] [address] PCP - General 02/08/10 10/12/21 documented as of this encounter
--- OUTSIDE RECORDS SUMMARY | 2023-12-08 20:03 | XMS_ITS | Encounter Summary ---
Author Organization [facility] [place] [address] Care Team Providers Care Waybill Clerk Name Role Phone Marck Brody DO Primary Care Provider Encounter Details Date Type Department Care Team (Late st Contact Info) Description 11/07/2019 Notes Only [facility] [place] [address] Cuba Mcdonald Jr., MD [facility] [place] [address] Social History Tobacco Use Types Packs/Day Years [...] Notes * Cuba Mcdonald Jr., MD - 11/07/2019 11:59 PM EDT Has completed 14 of her 20 pre surgical treatments. Progress has been reviewed and she is doing well with the treatments. No new labs or provider visits. Complications: Has some difficult with the pressure change in her left ear. Also, has noted visual changes early in her course. Vision will be checked at her 15th treatment. Follow up plan: Continue hyperbaric treatments, then surgical intervention. documented in this encounter Plan of Treatment Not on file documented as of this encounter Visit Diagnoses Not on filedocumented in this encounter Care Teams Waybill Clerk Relationship Specialty Start Date End Date Marck Brody DO [address] [place] [address] [address] [place] [address] PCP - General 02/08/10 10/12/21 documented as of this encounter
--- OUTSIDE RECORDS SUMMARY | 2023-12-08 20:03 | XMS_ITS | Encounter Summary ---
Author Organization [facility] [place] [address] Care Team Providers Care Salesperson Stereo Equipment Name Role Phone Marck Brody DO Primary Care Provider [phone] Reason for Visit * Reason Comments On Treatment Visit HBO #21 Encounter Details Date Type Department Care Team (Latest Contact Info) Description 11/18/2019 6:55 AM EDT - 11/18/2019 11:59 PM EDT [facility] [place] [phone] Osteoradionecrosis of jaw Discharge Disposition: Home Social [...] Sign Reading Time Taken Comments Blood Pressure 112/77 11/18/2019 9:13 AM EDT Pulse 71 11/18/2019 9:13 AM EDT Temperature 36.3 ??C (97.3 ??F) 11/18/2019 7:10 AM ED T Respiratory Rate 16 11/18/2019 7:10 AM EDT Oxygen Saturation - - Inhaled [...] as of this encounter Progress Notes * Norma Lugo MD - 11/18/2019 7:58 AM EDT I saw Ms. Hollis this morning. Yesterday, she underwent surgery with Dr. Ng for dental extractions and debridement of bone. She had some post- operative pain and now has 4-5/10 pain. She is here for her 21st hyperbaric treatment. She will finish up a course of 30 treatments. She compressed well, without issues, this morning. Norma Lugo MD * Lucie Quigley RN - 11/18/2019 7:39 AM EDT INTERVAL HISTORY: Patient arrived ambulatory with steady gait. S/P dental extractions yesterday. Neurological Status: A+O Respiratory Status: easy respirations Visual Change: No new reported Headache: denies Cough: baseline occasional cough due to secretions Cold symptoms: denies Ear Discomfort/Issues: denies Chest Pain/Palpatations: denies Wound/Dressing: N/A Pain Level: 5-6 (0-10 scale) Mouth pain. Reports Tylenol use last night and ibuprofen this morning Education: Discussed the possibility of increased difficulty clearing ears during compression due to post surgical inflammation. Patient agrees to alert RN at first sign of difficulty, if any. 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 100% cotton clothing in place. Patient checked for non-approved chamber items.Ears checked. No redness noted. View of tympanic membranes obstructed by wax both ears. Patient assessed and met criteriato proceed with hyperbaric treatment. Safety checklist completed with patient. Grounding strap applied and grounding verified, patient placed in chamber, communications checked. Suellen Valera RN / Laura Quigley RN administered the treatment and monitored the patient. HYPERBARIC TREATMENT: Number - 21 Planned number of treatments - 30 Compression Rate: 1.2 psi/min Decompression Rate: 2.5 psi/min TROY - 2.4 Compression tolerated well, no difficulty clearing ears. Start Compression Reach Treatment Pressure - TROY Air Break Start Air Break Completed Start Decompression Treatment Completed 0713 0732 0818 0828 [id number] Sechrist Chamber # 1 Encouraged patient to [...] Practice Guidelines for Hyperbaric Oxygen Therapy through [facility]. No interventions required today. Patient alert and oriented. Ambulating with steady gait. Patient assessed and found appropriate to leave the Hyperbaric area at the conclusion of today???s session. Continue HBOT as planned. Next treatment scheduled for 11/19/19. documented in this encounter Plan of Treatment Not on file documented as of this encounter Visit Diagnoses Diagnosis Osteoradionecrosis of jaw Other specified disease of the jaws documented in this encounter Care Teams Salesperson Stereo Equipment Relationship Specialty Start Date End Date Marck Brody DO [address] [facility] [address] [place] [address] PCP - General 02/08/10 10/12/21 documented as of this encounter
--- OUTSIDE RECORDS SUMMARY | 2023-12-08 20:03 | XMS_ITS | Encounter Summary ---
Author Organization [facility] [place] [address] Care Team Providers Care Clark Driver Name Role Phone Marck Brody DO Primary Care Provider [phone] Encounter Details Date Type Department Care Team (Late st Contact Info) Description 01/14/2020 Notes Only Max[place] [phone] Allegra Ndiaye, RN Social History Tobacco Use [...] Progress Notes * Allegra Ndiaye, RN - 01/14/2020 10:13 AM EDT Patient called and left a message stating that she has developed small red bumps spread out over the front of her body. She discussed this with her local pharmacist who felt it was likely an allergicreaction to one of the antibiotics she is taking. She has stopped taking the antibiotics as of thismorning. I notified Dr. Ng who recommended she discontinue these antibiotics and continue throughout today without taking anything. He would like her to start taking doxycycline starting tomorrow. I have called Theresa back and left her a message with this information as well as asked her to call back to confirm she understands the plan. The prescription has been sent to the preferred pharmacy on file. documented in this encounter Plan of Treatment Not on file documented as of this encounter Visit Diagnoses Not on filedocumented in this encounter Care Teams Clark Driver Relationship Specialty Start Date End Date Marck Brody DO [facility] [address] [place] [address] PCP - General 02/08/10 10/12/21 documented as of this encounter
--- OUTSIDE RECORDS SUMMARY | 2023-12-08 20:03 | XMS_ITS | Encounter Summary ---
Author Organization [facility] [place] [address] Care Team Providers Care Assembly Line Inspector Name Role Phone Marck Brody DO Primary Care Provider Reason for Visit * Reason Comments On Treatment Visit HBOT #24 Encounter Details Date Type Department Care Team (Latest Contact Info) Description 11/21/2019 7:00 AM EDT - 11/21/2019 11:59 PM EDT Hospital Encounter [facility] [place] [phone] Osteoradionecrosis of jaw Discharge Disposition: Home Social [...] Sign Reading Time Taken Comments Blood Pressure 124/73 11/21/2019 9:21 AM EDT Pulse 67 11/21/2019 9:21 AM EDT Temperature 36.2 ??C (97.2 ??F) 11/21/2019 7:20 AM ED T Respiratory Rate 16 11/21/2019 9:21 AM EDT Oxygen Saturation - - Inhaled [...] Progress Notes * Jennifer Henderson RN - 11/21/2019 7:26 AM EDT INTERVAL HISTORY: Patient denies any discomfort, issues, complaints. She was worried about a spot in her mouth which felt like there was something different. did an examination and saw a fibrous area, possibly from the platelet rich plasma she received at the end of her dental procedure. She denies any other new issues or ear discomfort. Neurological Status: normal Respiratory Status: normal Visual Change: denies Headache: none Cough: none Cold symptoms: none Ear Discomfort/Issues: denies Chest Pain/Palpatations: denies Wound/Dressing: none Pain Level: 2 (0-10 scale) * If greater than 5, document interventions. 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 100%cotton clothing in place. Patient checked for non-approved chamber items. Tympanic membranes checked. Unable to see TMs due to wax buildup in both ears. Ear canals looked normal. Patient assessed andmet criteria to proceed with hyperbaric treatment. Safety checklist completed with patient. Grounding strap applied and grounding verified, patient placed in chamber, communications checked. Naldo DILL / Laura Quigley RN administered the treatment and monitored the patient. HYPERBARIC TREATMENT: Number - 24 Planned number of treatments - 20 prior to dental procedure and 10 immediately after Compression Rate: 1.2 psi/min Decompression Rate: 2.5 psi/min TROY - 2.4 Start Compression Reach Treatment Pressure - TROY Air Break Start Air Break Completed Start Decompression Treatment Completed 0723 0742 [phone] 0920 Sechrist Chamber # 1 Encouraged patient to [...] Practice Guidelines for Hyperbaric Oxygen Therapy through [facility]. No interventions required today. Patient alert and oriented. Ambulating with steady gait. Patient assessed and found appropriate to leave the Hyperbaric area at the conclusion of today???s session. Continue HBOT as planned. Next treatment scheduled for 11/25/19. documented in this encounter Plan of Treatment Not on file documented as of this encounter Visit Diagnoses Diagnosis Osteoradionecrosis of jaw Other specified disease of the jaws documented in this encounter Care Teams Assembly Line Inspector Relationship Specialty Start Date End Date Marck Brody DO [address] [place] [address] PCP - General 02/08/10 10/12/21 documented as of this encounter
--- OUTSIDE RECORDS SUMMARY | 2023-12-08 20:03 | XMS_ITS | Encounter Summary ---
Author Organization [facility] [place] [address] Care Team Providers Care Pharmacist Critical Care Name Role Phone Marck Brody DO Primary Care Provider [phone] Encounter Details Date Type Department Care Team (Late st Contact Info) Description 12/26/2019 Notes Only [place] [phone] Allegra Ndiaye RN Social History Tobacco Use [...] Progress Notes * Allegra Ndiaye, RN - 12/26/2019 10:45 AM EDT Patient called and left a message after seeing her PCP today. Her PCP did not see any active signs of infection but felt that maybe she had bruised the area. She will continue on her antibiotics until completing as planned and knows to call if her symptoms do not improve or worsen. If her symptoms do not improve Dr. Ng would like to see her in clinic before her appointment that is currentlyscheduled for the end of January. documented in this encounter Plan of Treatment Not on file documented as of this encounter Visit Diagnoses Not on filedocumented in this encounter Care Teams Pharmacist Critical Care Relationship Specialty Start Date End Date Marck Brody DO [address] [place] [address] PCP - General 02/08/10 10/12/21 documented as of this encounter
--- OUTSIDE RECORDS SUMMARY | 2023-12-08 20:03 | XMS_ITS | Encounter Summary ---
Author Organization [place] [address] Care Team Providers Care Foreign Correspondent Name Role Phone Marck Brody DO Primary Care Provider [phone] Encounter Details Date Type Department Care Team (Latest Contact Info) Description 02/11/2020 3:00 PM EST TH Visit (TeleHealth) [place] [phone] Roberth Little MD [facility] [place] [address] Osteonecrosis of mandible; H/O tongue cancer Social [...] Progress Notes * Roberth Little MD - 02/11/2020 3:00 PM EST [facility] [place] TELEPHONE VISIT Theresa Hollis is a 49 y.o. female followed for: ORN mandible, recent extractions SUBJECTIVE She had some questions regarding recent extractions and next step rehab options. She was hoping to have implants but now is being re-referred to Dr. Vieira for another bridge. It was unclear to her why remaining lower dentition was not extracted. She is not having any drainage or pain. REVIEW OF IMAGES/OTHER STUDIES Recent facial CT from 01/20/2020 reviewed. Old fracture site appears to have a good callous. DECISION MAKING/PLAN ORN mandible I advised her to follow up with Dr. Vieira as recommended. I am happy to see her concurrently when she returns for her visit with Dr. Ng. We reviewed the concerns surrounding extractions and implants in the setting of ORN and the condition of her mandible. She was satisfied with this conversation and will let me know when she comes down for another appointment. Patient verbally consents to this telephone visit and understands that this visit may be billed, similar to a clinic office visit. I provided care to the patient today via telephone call, 25 minutes telephone visit was spent in discussion with patient on above. I appreciate the opportunity to be involved in Ms. Hollis's care. 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
--- OUTSIDE RECORDS SUMMARY | 2023-12-08 20:03 | XMS_ITS | Encounter Summary ---
Author Organization [facility] [place] [address] Care Team Providers Care Bag Loader Machine Operator Name Role Phone Marck Brody DO Primary Care Provider Reason for Visit * Reason Comments On Treatment Visit HBOT #28 Encounter Details Date Type Department Care Team (Latest Contact Info) Description 11/28/2019 6:58 AM EDT - 11/28/2019 11:59 PM EDT Hospital Encounter [facility] [place] [place] [phone] Osteoradionecrosis of jaw Discharge Disposition: Home Social [...] Sign Reading Time Taken Comments Blood Pressure 115/74 11/28/2019 9:06 AM EDT Pulse 63 11/28/2019 9:06 AM EDT Temperature 36.5 ??C (97.7 ??F) 11/28/2019 7:25 AM ED T Respiratory Rate 16 11/28/2019 9:06 AM EDT Oxygen Saturation - - Inhaled [...] Progress Notes * Jennifer Henderson RN - 11/28/2019 7:34 AM EDT INTERVAL HISTORY: Patient denies any discomfort, changes, issues, complaints. She arrived for treatment in good spirits. Neurological Status: baseline Respiratory Status: normal Visual Change: denies Headache: none Cough: baseline Cold symptoms: none Ear Discomfort/Issues: denies Chest Pain/Palpatations: denies Wound/Dressing: none Pain Level: 0 (0-10 scale) * If greater than 5, document interventions. 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 100%cotton clothing in place. Patient checked for non-approved chamber items. Tympanic membranes checked, both ear canal are blocked by wax. Patient assessed and met criteria to proceed with hyperbaric tr eatment. Safety checklist completed with patient. Grounding strap applied and grounding verified, patient placed in chamber, communications checked. Tamia Catalan RN / Jennfier Henderson RN administered the treatment and monitored the patient. HYPERBARIC TREATMENT: Number - 28 Planned number of treatments - 20 prior to dental procedure and 10 immediately after Compression Rate: 1.2 psi/min Decompression Rate: 2.5 psi/min TROY - 2.4 Start Compression Reach Treatment Pressure - TROY Air Break Start Air Break Completed Start Decompression Treatment Completed 0731 0748 [phone] 0903 Sechrist Chamber # 1 Encouraged patient to [...] Practice Guidelines for Hyperbaric Oxygen Therapy through [facility]. No interventions required today. Patient alert and oriented. Ambulating with steady gait. Patient assessed and found appropriate to leave the Hyperbaric area at the conclusion of today???s session. Continue HBOT as planned. Next treatment scheduled for 12/01/19. documented in this encounter Plan of Treatment Not on file documented as of this encounter Visit Diagnoses Diagnosis Osteoradionecrosis of jaw Other specified disease of the jaws documented in this encounter Care Teams Bag Loader Machine Operator Relationship Specialty Start Date End Date Marck Brody DO [address] [facility] [address] [place] [address] PCP - General 02/08/10 10/12/21 documented as of this encounter
--- OUTSIDE RECORDS SUMMARY | 2023-12-08 20:03 | XMS_ITS | Encounter Summary ---
Author Organization [facility] [place] [address] Care Team Providers Care Baked Goods Stock Clerk Name Role Phone Marck Brody DO Primary Care Provider [phone] Reason for Visit * Reason Comments On Treatment Visit HBOT Encounter Details Date Type Department Care Team (Latest Contact Info) Description 11/12/2019 6:57 AM EDT - 11/12/2019 11:59 PM EDT Hospital Encounter [facility] [place] [phone] Osteoradionecrosis of jaw Discharge Disposition: Home Social [...] Sign Reading Time Taken Comments Blood Pressure 115/72 11/12/2019 9:20 AM EDT Pulse 65 11/12/2019 9:20 AM EDT Temperature 36.4 ??C (97.5 ??F) 11/12/2019 7:08 AM ED T Respiratory Rate 16 11/12/2019 7:08 AM EDT Oxygen Saturation - - [...] Progress Notes * Huma Lowe RN - 11/12/2019 7:52 AM EDT INTERVAL HISTORY: Patient denies any discomfort, changes, issues, complaints. Alert and oriented, VSS. Patient arrived to treatment area and transferred to [facility] independently. Neurological Status: intact Respiratory Status: WNL Visual Change: none Headache: none Cough:none Cold symptoms: none Ear Discomfort/Issues: wax build up in both ears, unable to visualize TMs, no pain or pressure Chest Pain/Palpatations: denies Wound/Dressing: none Other: Pre Treatment Glucose: N/A Intervention for hypoglycemia if necessary: Repeat Blood Glucose (prior to HBOT): Pain Level:0 (0-10 scale) * If greater than 5, [...] monitored the patient. HYPERBARIC TREATMENT: Number - 17 Planned number of treatments - 30 (20 prior to dental procedure, 10 after) Compression Rate: 1.3 psi/min Decompression Rate: 2.5 psi/min TROY - 2.4 Start Compression Reach Treatment Pressure - TROY Air Break Start Air Break Completed Start Decompression Treatment Completed 0714 0738 0823 0833 0908 0919 Sechrist Chamber # 1 Encouraged patient [...] Practice Guidelines for Hyperbaric Oxygen Therapy through [facility]. No interventions required today. Post treatment glucose: N/A Patient alert and oriented. Ambulating with steady gait. Patient assessed and found appropriate to leave the Hyperbaric area at the conclusion of today???s session. Continue HBOT as planned. Next treatment scheduled for 11/13/2019. documented in this encounter Plan of Treatment Not on file documented as of this encounter Visit Diagnoses Diagnosis Osteoradionecrosis of jaw Other specified disease of the jaws documented in this encounter Care Teams Baked Goods Stock Clerk Relationship Specialty Start Date End Date Marck Brody DO [address] [place] [address] PCP - General 02/08/10 10/12/21 documented as of this encounter
--- OUTSIDE RECORDS SUMMARY | 2023-12-08 20:03 | XMS_ITS | Encounter Summary ---
Author Organization [facility] [place] [address] Care Team Providers Care Safety Counselor Name Role Phone Marck Brody DO Primary Care Provider Encounter Details Date Type Department Care Team (Latest Contact Info) Description 03/22/2020 10:30 AM EST Office [place] [address] Roberth Little MD [facility] [place] [address] Osteonecrosis of mandible; H/O tongue cancer Social [...] Progress Notes * Roberth Little MD - 03/22/2020 10:30 AM EST [facility] OT[facility] BRIEF FOLLOW UP NOTE Theresa Hollis is a 49 y.o. female followed for: ORN mandible, recent extractions Oncologic history is as follows: Primary site: Left lateral tongue Stage: [id number] Surgery(ies): 10/31/06 - Hemiglossectomy, left neck dissection 1-5, skin graft, allograft Radiation: TREATMENT STARTED: 11/28/06 TREATMENT COMPLETED: 01/14/07 TREATMENT: The total maximum dose was 6600 cGy in 33 fractions. Volume reductions were instituted at 5400 cGy in 30 fractions &??6000 cGy in 30 fractions. Chemotherapy: Concurrent cisplatin?? She had a scheduled visit with [facility] today to discuss the status of her mandible. I was able to see her in the [facility] clinic today. ASSESSMENT/RECOMMENDATIONS This patient has a complicated problem related to late term effects of radiation on her mandible. She is understandably frustrated with the status of her teeth and dental denominational as well as overall appearance. I counseled her that this is difficult problem and that often a stepwise approach is required - I.e. trying conservative interventions and then escalating as dictated by the disease process. I did also provide her with the name of Dr. Diana Callejas in [place], [place] for another opinion regarding her prosthodontics. Finally, we did briefly discuss the role of mandible resection and flap reconstruction. The patient was appreciative of the visit and discussion and will review optionswith Dr. Ng. Time spent in counseling and discussion of the above: 15 minutes I appreciate the opportunity to be involved in Ms. Hollis's care. 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
--- OUTSIDE RECORDS SUMMARY | 2023-12-08 20:03 | XMS_ITS | Encounter Summary ---
Author Organization [place] [address] Care Team Providers Care Balancing Machine Set Up Worker Name Role Phone Marck Brody DO Primary Care Provider Reason for Visit * Reason Comments On Treatment Visit HBO #20 Encounter Details Date Type Department Care Team (Latest Contact Info) Description 11/17/2019 6:50 AM EDT - 11/17/2019 8:51 AM EDT [facility] [place] [phone] Osteoradionecrosis of jaw Discharge Disposition: Home Social [...] Sign Reading Time Taken Comments Blood Pressure 124/85 11/17/2019 8:37 AM EDT Pulse 79 11/17/2019 8:37 AM EDT Temperature 36.4 ??C (97.5 ??F) 11/17/2019 7:08 AM ED T Respiratory Rate 16 11/17/2019 7:08 AM EDT Oxygen Saturation - - [...] Progress Notes * Lucie Quigley RN - 11/17/2019 7:32 AM EDT INTERVAL HISTORY: Patient denies any discomfort, changes, issues, complaints. Arrived ambulatory with steady gait. Reports that she needs to be at Same Day by 0900 this morning. Neurological Status: A+O Respiratory Status: easy respirations Visual Change: no new reported Headache: denies Cough: occasional cough to clear secretions, patient's baseline Cold symptoms: denies Ear Discomfort/Issues: denies Chest Pain/Palpatations: denies Wound/Dressing: N/A Pain Level: 0 (0-10 scale) Education: dillan Hollis received hyperbaric oxygen treatment today for osteoradionecrosis of jaw. 100% cotton clothing in place. Patient checked for non-approved chamber items. Ears checked. No redness noted. View of tympanic membranes obstructed by wax bilaterally. Patient assessed and met criteria to proceed with hyperbaric treatment. Safety checklist completed with patient. Grounding strap applied and grounding verified, patient placed in chamber, communications checked. Ronnie Pacheco RN / Laura Quigley RN administered the treatment and monitored the patient. HYPERBARIC TREATMENT: Number - 20 Planned number of treatments - 30 Compression Rate: 1.2 psi/min Decompression Rate: 2.5 psi/min TROY - 2.4 Start Compression Reach Treatment Pressure - TROY Air Break Start Air Break Completed Start Decompression Treatment Completed 0712 0731 0816 0826 0827 0835 Sechrist Chamber # 1 Encouraged patient to [...] Practice Guidelines for Hyperbaric Oxygen Therapy through [facility]. No interventions required today. Patient tolerated compression without difficulty clearing ears and without need to pause. Patient alert and oriented. Ambulating with steady gait. Patient assessed and found appropriate to leave the Hyperbaric area at the conclusion of today???s session. Continue HBOT as planned. Next treatment scheduled for 11/18/19. documented in this encounter Plan of Treatment Not on file documented as of this encounter Visit Diagnoses Diagnosis Osteoradionecrosis of jaw Other specified disease of the jaws documented in this encounter Care Teams Balancing Machine Set Up Worker Relationship Specialty Start Date End Date Marck Brody DO [address] [place] [address] PCP - General 02/08/10 10/12/21 documented as of this encounter
--- OUTSIDE RECORDS SUMMARY | 2023-12-08 20:03 | XMS_ITS | Encounter Summary ---
Author Organization [facility] Address [facility] [place] [address] Care Team Providers Care Repairer Sash And Door Name Role Phone Marck Brody DO Primary Care Provider Encounter Details Date Type Department Care Team (Late st Contact Info) Description 12/08/2019 7:30 AM EDT Office Visit [place] [phone] Keyur Ng MD [facility] [place] [address] Status post surgery Social History Tobacco Use [...] as of this encounter Progress Notes * Joyce Young - 12/08/2019 7:30 AM EDT Oral & Maxillofacial Surgery Lesion Follow Up Theresaarmen Wyattesteban returns for follow up of S/P 3 weeks Osteoradionecrosis of jaw DEBRIDEMENT SKIN, SUBCU, MUSCLE, BONE, ??HEAD/NECK Interval History: Theresa was questioned with regards to new lumps or bumps,intra or extraoral drainage, difficulty chewing or swallowing, oral bleeding, dysarthria or altered oral sensation from priorexamination. Weight and appetite were evaluated and pertinent interval changes include: ?? Back to work ?? Completed HBO ?? Diet is stable blended foods ?? Discontinued Pain meads. No need. ?? Completed ABX ?? Discontinued Peridex, Burning sensation ?? Lost a few pounds, working out, more active now ?? Thyroid has stabilized. Hyper vs Hypo ?? Denies new numbness.Feels numbness from prior surgery is improving ?? Denies foul taste, odor ?? Denies drainage Review of systems noted above were otherwise negative. Clinical Pertinent findings include: ?? Site mucosalizing ?? No grossly exposed bone ?? 3 teeth on lower right mandible without gross mobility ?? Bony defect present on the left body and right body but site granulating ?? No sign of fracture with bimanual manipulation ?? No external swelling or erythema Pathology report shows: Surgical Pathology DIAGNOSIS Necrotic anterior mandibule, biopsy: Fragments of bone with osteonecrosis. Electronically signed by: ??Arielle TAYLOR, Katina Acevedo Verified: ??11/24/2019 ?Pathologist Performed at: ??-[facility] Dept. of Pathology, [place], [place] SPECIMEN(S) SUBMITTED A - Necrotic anterior mandibule, biopsy (1) CLINICAL INFORMATION Osteoradionecrosis of the mandible Cultures: Specimen Information: Face; Bone NECROTIC ANTERIOR MANDIBULE. ?? Component Value Bone Culture Abnormal Moderate mixed Gram Positive organisms : probable normal oropharyngeal parisa Pertinent imaging studies: none Impression: 3 weeks s/p debridement and extraction of ORN mandible Recommendations and Plan: Doing well Follow up 2 months to check panorex - eval bone and ensure no sign of fracture If granulating well and progressing as expected then will send to Dr. Vieira, Senior Java Architect for evaluation and possible RPD fabrication Since clinically asymptomatic and no sign of infection will hold off on antibiotics at this point. Call if increase pain, swelling in the interim. Keyur Ng MD, DMD, FACS documented in this encounter Plan of Treatment Not on file documented as of this encounter Visit Diagnoses Diagnosis Status post surgery documented in this encounter Care Teams Repairer Sash And Door Relationship Specialty Start Date End Date Marck Brody DO [address] [place] [address] PCP - General 02/08/10 10/12/21 documented as of this encounter
--- OUTSIDE RECORDS SUMMARY | 2023-12-08 20:03 | XMS_ITS | Encounter Summary ---
Author Organization [facility] [place] [address] Care Team Providers Care Morgue Keeper Name Role Phone Marck Brody DO Primary Care Provider [phone] Reason for Visit * Reason Comments On Treatment Visit HBO #16 Encounter Details Date Type Department Care Team (Latest Contact Info) Description 11/11/2019 6:58 AM EDT - 11/11/2019 11:59 PM EDT Hospital Encounter [facility] [place] [phone] Osteoradionecrosis of jaw Discharge Disposition: Home Social [...] Sign Reading Time Taken Comments Blood Pressure 114/67 11/11/2019 9:25 AM EDT Pulse 62 11/11/2019 9:25 AM EDT Temperature 36.3 ??C (97.3 ??F) 11/11/2019 7:07 AM ED T Respiratory Rate 16 11/11/2019 7:07 AM EDT Oxygen Saturation - - [...] as of this encounter Progress Notes * James Catalan - 11/11/2019 7:42 AM EDT INTERVAL HISTORY: Patient denies any discomfort, changes, issues, complaints. 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 100% cotton clothing in place. Patient checked for non-approved chamber items. Tympanic membranes checked. No redness or perforation noted. Patient assessed and met criteria to proceed with hyperbaric treatment. Safety checklist completed with patient. Grounding strap applied and grounding verified, patient placed in chamber, communications checked. Tamia Catalan RN / James Catalan EMT-P administered the treatment and monitored the patient. HYPERBARIC TREATMENT: Number - 16 Planned number of treatments - 30 Compression Rate: 1.3 psi/min Decompression Rate: 2.5 psi/min TROY - 2.4 Start Compression Reach Treatment Pressure - TROY Air Break Start Air Break Completed Start Decompression Treatment Completed 0706 0748 0899 0886 0912 0983 Sechrist Chamber # 1 Encouraged patient to [...] Practice Guidelines for Hyperbaric Oxygen Therapy through [facility]. No interventions required today. Patient alert and oriented. Ambulating with steady gait. Patient assessed and found appropriate to leave the Hyperbaric area at the conclusion of today???s session. Continue HBOT as planned. Next treatment scheduled for 11/12/2019. documented in this encounter Plan of Treatment Not on file documented as of this encounter Visit Diagnoses Diagnosis Osteoradionecrosis of jaw Other specified disease of the jaws documented in this encounter Care Teams Morgue Keeper Relationship Specialty Start Date End Date Marck Brody DO [address] [place] [address] PCP - General 02/08/10 10/12/21 documented as of this encounter
--- OUTSIDE RECORDS SUMMARY | 2023-12-08 20:03 | XMS_ITS | Encounter Summary ---
Author Organization [facility] [place] [address] Care Team Providers Care Operations Intern Name Role Phone Marck Brody DO Primary Care Provider Reason for Visit * Reason Comments On Treatment Visit HBOT #18 Encounter Details Date Type Department Care Team (Latest Contact Info) Description 11/13/2019 6:53 AM EDT - 11/13/2019 11:59 PM EDT Hospital Encounter [facility] [place] [phone] Osteoradionecrosis of jaw Discharge Disposition: Home Social [...] Sign Reading Time Taken Comments Blood Pressure 115/67 11/13/2019 9:22 AM EDT Pulse 55 11/13/2019 9:22 AM EDT Temperature 36.3 ??C (97.3 ??F) 11/13/2019 7:16 AM ED T Respiratory Rate 16 11/13/2019 7:16 AM EDT Oxygen Saturation - - Inhaled [...] Progress Notes * Candice Catalan RN - 11/13/2019 7:32 AM EDT INTERVAL HISTORY: Arrives ambulatory and transfers independently. Patient denies any new discomfort, changes, issues,complaints. Neurological Status: Alert, oriented x4 Respiratory Status: Eupneic Visual Change: No change Headache: None Cough: Occasional dry cough Cold symptoms: Denies Ear Discomfort/Issues: Denies Chest Pain/Palpatations: Denies Wound/Dressing: N/A Pain Level: 0 (0-10 scale) * If greater than 5, document interventions. Theresa Hollis received hyperbaric oxygen treatment today for osteoradionecrosis of the jaw. 100% cotton clothing in place. Patient [...] monitored the patient. HYPERBARIC TREATMENT: Number - 18 Planned number of treatments - 30; 20 prior to procedure Compression Rate: 1.2-2.0 psi/min Decompression Rate: 2.5 psi/min TROY - 2.4 Start Compression Reach Treatment Pressure - TROY Air Break Start Air Break Completed Start Decompression Treatment Completed 0721 0740 0825 0835 0910 0919 Sechrist Chamber # 1 Encouraged patient [...] Practice Guidelines for Hyperbaric Oxygen Therapy through [facility]. No interventions required today. Patient alert and oriented. Ambulating with steady gait. Patient assessed and found appropriate to leave the Hyperbaric area at the conclusion of today???s session. Continue HBOT as planned. Next treatment scheduled for 11/14/2019. documented in this encounter Miscellaneous Notes * Addendum Note - Candice Catalan RN - 11/13/2019 9:32 AM EDTEncounter addended by: Candice Catalan RN on: 11/13/2019 9:32 AM Actions taken: Vitals modified documented in this encounter Plan of Treatment Not on file documented as of this encounter Visit Diagnoses Diagnosis Osteoradionecrosis of jaw Other specified disease of the jaws documented in this encounter Care Teams Operations Intern Relationship Specialty Start Date End Date Marck Brody DO [address] [place] [address] PCP - General 02/08/10 10/12/21 documented as of this encounter
--- OUTSIDE RECORDS SUMMARY | 2023-12-08 20:03 | XMS_ITS | Encounter Summary ---
Author Organization [facility] [place] [address] Care Team Providers Care Pick Out Hand Name Role Phone Marck Brody DO Primary Care Provider [phone] Encounter Details Date Type Department Care Team (Late st Contact Info) Description 12/02/2019 Notes Only [facility] [place] [address] Cuba Mcdonald Jr., MD [facility] [place] [address] Social History Tobacco Use Types Packs/Day Years [...] Notes * Cuba Mcdonald Jr., MD - 12/02/2019 11:59 PM EDT End of Treatment Note Ms. Ornelas completed 30 of her planned 30 hyperbaric treatments. At the end of treatment her mandibular pain was improved and the areas of extraction were healing well. She had a fairly dramatic change in vision: -2.5 diopters on right, -2.0 diopters on left. She is on the long-term follow up program so will information in the future on whether this has resolved. documented in this encounter Plan of Treatment Not on file documented as of this encounter Visit Diagnoses Not on filedocumented in this encounter Care Teams Pick Out Hand Relationship Specialty Start Date End Date Marck Brody DO [address] [place] [address] [address] [facility] [address] [place] [address] PCP - General 02/08/10 10/12/21 documented as of this encounter
--- OUTSIDE RECORDS SUMMARY | 2023-12-08 20:03 | XMS_ITS | Encounter Summary ---
[place] [address] Care Team Providers Care Conservation Officer Name Role Phone Marck Brody DO Primary Care Provider [phone] Encounter Details Date Type Department Care Team (Late st Contact Info) Description 11/15/2019 [place] [address] Dayana Logan CCMA Social History Tobacco Use Types Packs/Day Years [...] encounter Miscellaneous Notes * Telephone Encounter - Dayana Logan CCMA - 11/15/2019 9:39 AM EDT Telephone call placed to let patient know with the covid19 test done. Test results were negative. Patient no further questions. documented in this encounter Plan of Treatment Not on file documented as of this encounter Visit Diagnoses Not on filedocumented in this encounter Care Teams Conservation Officer Relationship Specialty Start Date End Date Marck Brody DO [address] [place] [address] PCP - General 02/08/10 10/12/21 documented as of this encounter
--- OUTSIDE RECORDS SUMMARY | 2023-12-08 20:03 | XMS_ITS | Encounter Summary ---
Author Organization [place] [address] Care Team Providers Care Braker Passenger Train Name Role Phone Marck Brody DO Primary Care Provider [phone] Encounter Details Date Type Department Care Team (Late st Contact Info) Description 12/29/2019 Notes Only [place] [phone] Allegar Ndiaye, RN Social History Tobacco Use Types [...] Progress Notes * Allegra Ndiaye, RN - 12/29/2019 9:56 AM EDT Theresa called because she feels like the antibiotic mixed with applesauce may be irritating her tongue. She experience this after her surgery while taking the antibiotic as well. She describes her tongue as being more sensitive and experiencing a burning/tingling like feeling. She has almost completed 7 days of her antibiotic and as noted previously her PCP did not see anything suggestive of infection at her appointment. Due to this, she is going to stop taking the antibiotic and see what happens with her symptoms. She knows to call us if she develops worsening pain, swelling, drainage, fever or chills. I have also asked her to notify us if the burning/tingling sensation does not go away or improve. If her symptoms do worsen or come back, we will want to schedule her for an appointment in clinic with Dr. Ng at that time. documented in this encounter Plan of Treatment Not on file documented as of this encounter Visit Diagnoses Not on filedocumented in this encounter Care Teams Braker Passenger Train Relationship Specialty Start Date End Date Marck Brody DO [address] [place] [address] PCP - General 02/08/10 10/12/21 documented as of this encounter
--- OUTSIDE RECORDS SUMMARY | 2023-12-08 20:03 | XMS_ITS | Encounter Summary ---
Author Organization [facility] [place] [address] Care Team Providers Care Automobile Mechanic Apprentice Name Role Phone Marck Brody DO Primary Care Provider Reason for Visit * Reason Comments On Treatment Visit HBOT #15 Encounter Details Date Type Department Care Team (Latest Contact Info) Description 11/10/2019 6:55 AM EDT - 11/10/2019 11:59 PM EDT Hospital Encounter [facility] [place] [phone] Osteoradionecrosis of jaw Discharge Disposition: Home Social [...] Sign Reading Time Taken Comments Blood Pressure 111/72 11/10/2019 9:19 AM EDT Pulse 58 11/10/2019 9:19 AM EDT Temperature 36.3 ??C (97.3 ??F) 11/10/2019 7:13 AM ED T Respiratory Rate 16 11/10/2019 7:13 AM EDT Oxygen Saturation - - [...] Progress Notes * Norma Lugo MD - 11/10/2019 9:57 AM EDT Ms. Hollis is doing well with her HBOT. She is on presurgical treatments for ORN (planning 10 post-surgically). She is still compressing slowly, but does complete her treatments and has not had any complications. We will continue treatments through this week and will resume after surgery. Norma Lugo MD * Candice Catalan RN - 11/10/2019 7:23 AM EDT INTERVAL HISTORY: Arrives ambulatory and transfers independently. Patient states that she notes her right ear currently has a sensation like I got water in it. Endorses no change in her jaw. Neurological Status: Alert, oriented x4 Respiratory Status: Respirations easy. Visual Change: See vision screening results. Headache: Denies Cough: None observed. Cold symptoms: Denies Ear Discomfort/Issues: As noted above. Chest Pain/Palpatations: Denies Wound/Dressing: N/A Pain Level: 0 (0-10 scale) * If greater than 5, document interventions. Snellen Chart Near Vision Both Eyes 125 20 Right Eye 125 20 Left Eye 160 25 Refraction Values Right Left Spherical -3.00 -3.25 Cylinder -1.50 -1.25 [place] 98 74 Theresa Hollis received hyperbaric oxygen treatment today [...] monitored the patient. HYPERBARIC TREATMENT: Number - 15 Planned number of treatments - 30; 20 prior to procedure Compression Rate: 1.3 psi/min Decompression Rate: 2.5 psi/min TROY - 2.4 Start Compression Reach Treatment Pressure - TROY Air Break Start Air Break Completed Start Decompression Treatment Completed 0719 0737 0822 0832 0907 0917 Sechrist Chamber # 2 Encouraged patient to adjust position during air [...] Practice Guidelines for Hyperbaric Oxygen Therapy through [facility]. No interventions required today. Patient alert and oriented. Ambulating with steady gait. Patient assessed and found appropriate to leave the Hyperbaric area at the conclusion of today???s session. Continue HBOT as planned. Next treatment scheduled for 11/11/2019. documented in this encounter Miscellaneous Notes * Addendum Note - Norma Lugo MD - 11/10/2019 9:59 AM EDTEncounter addended by: Norma Lugo MD on: 11/10/2019 9:59 AM Actions taken: Clinical Note Signed documented in this encounter Plan of Treatment Not on file documented as of this encounter Visit Diagnoses Diagnosis Osteoradionecrosis of jaw Other specified disease of the jaws documented in this encounter Care Teams Automobile Mechanic Apprentice Relationship Specialty Start Date End Date Marck Brody DO [address] [place] [address] PCP - General 02/08/10 10/12/21 documented as of this encounter
--- OUTSIDE RECORDS SUMMARY | 2023-12-08 20:03 | XMS_ITS | Encounter Summary ---
Author Organization [facility] [place] [address] Care Team Providers Care Pain Medicine Physician Name Role Phone Marck Brody DO Primary Care Provider [phone] Encounter Details Date Type Department Care Team (Latest Contact Info) Description 03/22/2020 9:30 AM EST Office Visit [place] [phone] Keyur Ng MD [facility] [place] [address] Osteoradionecrosis of jaw Social History Tobacco Use [...] - - Weight 43.1 kg (95 lb) 03/22/2020 9:26 AM EST Height 157.5 cm (5' 2) 03/22/2020 9:26 AM EST Body Mass Index 17.38 03/22/2020 9:26 AM EST documented in this encounter Progress Notes * Keyur Ng MD - 03/22/2020 9:30 AM EST Oral & Maxillofacial Surgery Follow Up ?? Theresa Hollis returns for follow up of osteoradionecrosis of the jaw with debridement and extraction of ORN on the mandible. Procedure performed 11/17/2019 Surgical Pathology 11/17/2019 DIAGNOSIS Necrotic anterior mandibule, biopsy: Fragments of bone with osteonecrosis. Electronically signed by: Katina Guzmán MD Verified: 11/24/2019 Pathologist Performed at: -[facility] Dept. of Pathology, Interval History: Theresa was questioned with regards to new lumps or bumps,intra or extraoral drainage, difficulty chewing or swallowing, oral bleeding, dysarthria or altered oral sensation from priorexamination. Weight and appetite were evaluated and pertinent interval changes include: ?? Denies pain or discomfort ?? Denies difficulty chewing or swallowing ?? Denies bleeding, drainage or discharge ?? Denies loose teeth ?? Denies new lumps or bumps ?? Weight and appetite are stable ?? Data Warehousing Engineer was seen on the 2019 who advised a possible abscess of lower right molar and prescribed antibiotics. Denies any discomfort ?? Finished antibiotics on Mar 19 2020 Review of systems noted above were otherwise negative. Clinical Pertinent findings include: ?? No exposed bone except on lingual aspect of #27 and 28. A flake of small necrotic bony sequestrum was gently lifted off the lingual aspect and there was healthy appearing granulation gum tissue underneath this ?? No sign of fracture with bimanual manipulation ?? No sign of purulent drainage ?? No exposed bone #30 region and surrounding mucosa is pink ?? Teeth 27, 28, 31 appear stable. Pertinent imaging studies: Panorex in scan docs 03/09/2020 was reviewed. No obvious fracture or other significant interval changes compared to 01/05/2020 Impression: Approximately 4 months s/p debridement of mandible, HBO and extractions. Stable remaining mandibular dentition Recommendations and Plan: -Follow up with Dr. Vieira. She has an appointment this Sunday -Follow up in 6 months and panorex at that time. If needs arise may call to be seen sooner Kam Mclean PA-C Oral-Maxillofacial Surgery 03/22/2020 Supervising physician: Keyur Ng MD, DMD I saw patient, examined her, and discussed plan. I did speak with Dr. Vieira on the phone and I gave him reassurance that there was no acute infection and also re-iterated that the 3 remaining teeth have [facility] poor prognosis but appear stable. This is only option to have a partial and something retained. He is seeing her tomorrow to discuss possible options. Keyur Ng MD documented in this encounter Plan of Treatment Not on file documented as of this encounter Visit Diagnoses Diagnosis Osteoradionecrosis of jaw Other specified disease of the jaws documented in this encounter Care Teams Pain Medicine Physician Relationship Specialty Start Date End Date Marck Brody DO [address] [place] [address] PCP - General 02/08/10 10/12/21 documented as of this encounter
--- OUTSIDE RECORDS SUMMARY | 2023-12-08 20:03 | XMS_ITS | Encounter Summary ---
Author Organization Formerly [facility] [address] Care Team Providers Care Education Faculty Member Name Role Phone Marck Brody DO Primary Care Provider [phone] Encounter Details Date Type Department Care Team (Late st Contact Info) Description 01/14/2020 Orders Only [place] [address] Allegra Ndiaye, RN Social History Tobacco Use [...] on filedocumented in this encounter Care Teams Education Faculty Member Relationship Specialty Start Date End Date Marck Brody DO [address] [place], [place] [address] PCP - General 02/08/10 10/12/21 documented as of this encounter
--- OUTSIDE RECORDS SUMMARY | 2023-12-08 20:03 | XMS_ITS | Encounter Summary ---
Author Organization Formerly [facility], [facility] Address [facility] [place] [address] Care Team Providers Care Head Of Maintenance Name Role Phone Marck Brody DO Primary Care Provider Encounter Details Date Type Department Care Team (Late st Contact Info) Description 02/09/2020 7:30 AM EST Office Visit [place] [phone] Keyur Ng MD [facility] [place] [address] Status post surgery; Osteoradionecrosis of jaw Social [...] - Inhaled Oxygen Concentration - - Weight 44.9 kg (99 lb) 02/09/2020 7:33 AM EST Height 157.5 cm (5' 2) 02/09/2020 7:33 AM EST Body Mass Index 18.11 02/09/2020 7:33 AM EST documented in this encounter Progress Notes * Keyur Ng MD - 02/09/2020 7:30 AM EST Images from the original note were not included. Oral & Maxillofacial Surgery Lesion Follow Up Theresa Hollis returns for follow up of of Osteoradionecrosis of jaw s/p debridement and extraction of ORN mandible performed on 11/17/2019 Last office visit: 01/05/2020 No pain Skin on lip irritated from saliva, mask Area on chin on right has healed. Has a pimple on the left chin ?? Interval History: Theresa was questioned with regards to new lumps or bumps,intra or extraoral drainage, difficulty chewing or swallowing, oral bleeding, dysarthria or altered oral sensation from priorexamination. Weight and appetite were evaluated. Denies changes in medical history since last office visit 01/05/2020 Clinical Pertinent findings include: ?? Superficial skin irritation chin/lip (see photo) ?? No exposed bone except on lingual aspect of #27 and 28. A small necrotic bony sequestrum was gently lifted off the lingual aspect and there was granulation tissue underneath this. There is still an area of exposed bone on the lingual of 28 that appears to be superficial in nature. ?? No sign of fracture with bimanual manipulation ?? No sign of purulent drainage ?? Teeth 27, 28, 31 appear stable. Pertinent imaging studies: New photograph taken today and compared to prior photograph taken on 01/05/20 Impression: No sign of infection or expose of bone Recommendations and Plan: Return in 6 weeks with a new panorex Consider consultation with Dr. Vieira to evaluate for potential removal partial denture fabrication. I would like to follow her healing closely especially the exposed bone on the lingual aspect of 27,28. If she develops infection or pathologic fracture may need to consider moving forward with vascularized reconstruction at some point. Keyur Ng MD, DMD, FACS documented in this encounter Plan of Treatment Not on file documented as of this encounter Visit Diagnoses Diagnosis Status post surgery Osteoradionecrosis of jaw Other specified disease of the jaws documented in this encounter Care Teams Head Of Maintenance Relationship Specialty Start Date End Date Marck Brody DO [address] [place] [address] [address] [place] [address] PCP - General 02/08/10 10/12/21 documented as of this encounter
--- OUTSIDE RECORDS SUMMARY | 2023-12-08 20:03 | XMS_ITS | Encounter Summary ---
Author Organization [facility] [place] [address] Care Team Providers Care Heel Gummer Name Role Phone Marck Brody DO Primary Care Provider [phone] Reason for Visit * Reason Comments On Treatment Visit HBOT #23 Encounter Details Date Type Department Care Team (Latest Contact Info) Description 11/20/2019 6:54 AM EDT - 11/20/2019 11:59 PM EDT Hospital Encounter [facility] [place] [phone] Osteoradionecrosis of jaw Discharge Disposition: Home Social [...] Sign Reading Time Taken Comments Blood Pressure 114/71 11/20/2019 9:15 AM EDT Pulse 60 11/20/2019 9:15 AM EDT Temperature 36.2 ??C (97.2 ??F) 11/20/2019 7:10 AM ED T Respiratory Rate 16 11/20/2019 9:15 AM EDT Oxygen Saturation - - Inhaled [...] Progress Notes * Jennifer Henderson RN - 11/20/2019 7:17 AM EDT INTERVAL HISTORY: Patient denies any changes, issues, complaints. She arrived for treatment in good spirits. Pain from her surgery is 2-3. Neurological Status: unchanged Respiratory Status: denies any issues Visual Change: denies Headache: denies Cough: none Cold symptoms: none Ear Discomfort/Issues: none Chest Pain/Palpatations: denies Wound/Dressing: none Pain Level: 3 (0-10 scale) * If greater than 5, document interventions. 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 100%cotton clothing in place. Patient checked for non-approved chamber items. Tympanic membranes checked. Both ear canals are blocked with wax. Patient assessed and met criteria to proceed with hyperbaric treatment. Safety checklist completed with patient. Grounding strap applied and grounding verified, patient placed in chamber, communications checked. Jennifer Henderson RN / Laura Quigley RN administered the treatment and monitored the patient. HYPERBARIC TREATMENT: Number - 23 Planned number of treatments - 20 prior to dental procedure and 10 immediately after Compression Rate: 1.2 psi/min Decompression Rate: 2.5 psi/min TROY - 2.4 Start Compression Reach Treatment Pressure - TROY Air Break Start Air Break Completed Start Decompression Treatment Completed 0714 0733 0819 0829 0904 0913 Sechrist Chamber # 1 Encouraged patient to [...] Practice Guidelines for Hyperbaric Oxygen Therapy through [facility]. No interventions required today. Patient alert and oriented. Ambulating with steady gait. Patient assessed and found appropriate to leave the Hyperbaric area at the conclusion of today???s session. Continue HBOT as planned. Next treatment scheduled for 11/21/19. documented in this encounter Plan of Treatment Not on file documented as of this encounter Visit Diagnoses Diagnosis Osteoradionecrosis of jaw Other specified disease of the jaws documented in this encounter Care Teams Heel Gummer Relationship Specialty Start Date End Date Marck Brody DO [address] [place] [address] [address] [facility] [address] [place] [address] PCP - General 02/08/10 10/12/21 documented as of this encounter
--- OUTSIDE RECORDS SUMMARY | 2023-12-08 20:04 | XMS_ITS | Encounter Summary ---
[place] [address] Care Team Providers Care Backhaul Driver Name Role Phone Marck Brody DO Primary Care Provider [phone] Encounter Details Date Type Department Care Team (Late st Contact Info) Description 04/30/2018 [place] [phone] Latoya Molina Social History Tobacco Use Types Packs/Day Years [...] encounter Miscellaneous Notes * Telephone Encounter - Latoya Molina - 04/30/2018 11:17 AM EST Left message to inform Theresa that DM wanted to see her on 05.13.18. documented in this encounter Plan of Treatment Not on file documented as of this encounter Visit Diagnoses Not on filedocumented in this encounter Care Teams Backhaul Driver Relationship Specialty Start Date End Date Marck Brody DO [address] [place] [address] [address] [place] [address] PCP - General 02/08/10 10/12/21 documented as of this encounter
--- OUTSIDE RECORDS SUMMARY | 2023-12-08 20:04 | XMS_ITS | Encounter Summary ---
Author Organization [facility] [place] [address] Care Team Providers Care Air Brake Mechanic Name Role Phone Marck Brody DO Primary Care Provider [phone] Reason for Visit * Reason Comments Follow-up * Consultation (Routine) - Closed Specialty Diagnoses / Procedures Referred By Shirley cuevas Referred To Contact Otolaryngology Diagnoses DYSPHAGIA Marck Brody DO [address] [place] [address] Roberth Lee MD [facility] [place] [address] Referral ID Status Reason Start Date Expiration Date V isits Requested Visits Authorized [id number] Closed Consult, Test & Treat Connection Center 06/07/2018 06/07/2019 1 1 Encounter Details Date Type Department Care Team (Late st Contact Info) Description 07/04/2018 1:30 PM EDT Office Visit [place] [phone] Hermelindo Kearney PA [facility] [place] [place], [place] [phone] H/O tongue cancer Social History Tobacco Use [...] - - Weight 45.4 kg (100 lb) 07/04/2018 1:05 PM EDT Height 157.5 cm (5' 2) 07/04/2018 1:05 PM EDT Body Mass Index 18.29 07/04/2018 1:05 PM EDT documented in this encounter Progress Notes * Hermelindo Kearney PA - 07/04/2018 1:30 PM EDT [facility] OTOLARYNGOLOGY FOLLOW UP NOTE Theresa Hollis is a 48 y.o. female followed for: Left Lateral Tongue Cancer ? Primary site: Left lateral tongue Stage: [id number] Surgery(ies): 10/31/06 - Hemiglossectomy, left neck dissection 1-5, skin graft, allograft Radiation: TREATMENT STARTED: 11/28/06 TREATMENT COMPLETED: 01/14/07 TREATMENT: The total maximum dose was 6600 cGy in 33 fractions. Volume reductions were instituted at 5400 cGy in 30 fractions &??6000 cGy in 30 fractions. Chemotherapy: Concurrent cisplatin? She has recently been seen in clinic for right lateral tongue lesion that appeared to be consistentwith a dental injury/irritation from her adjacent dentition. She also noted tenderness at her anterior tongue, but no lesion was identified in that area. ??She was last trialed on Dexamethasone Elixir for this, and returns today for follow up. New issues since last visit: Tongue feels better. Feels there is still a small area of healing left. Feels she just dinged it in the waiting room. [place] that the Dexamethsone knocked out her vocal folds. Intermittently would have laryngitis, no power in her voice. This resolved after finishing the Dexamethasone. Notes recent spasming of her left lower lip when cleaning her teeth. No pain in her mouth currently apart from where she just bit it No other difficulty with swallowing, breathing. No hemoptysis. No new numbness. No new lumps. No recent illnesses. No otalgia. No fevers, chills, night sweats. Using the invisoline, which has helped prevent her from biting her teeth at night Has been having episodes of abdominal spasming and wheezing in her chest causing some difficulty with breathing when eating some foods. Foods seem random, no one food seems to elicit. Episodes last about an hour. Has had acid reflux in the past, and does not feel like this. Had workup with Allergy, who felt it was not allergy related. Gave her referral to GI for this, but has not had a response. PROBLEM LIST Patient Active Problem List Diagnosis Code ??? Hypothyroidism (acquired) E03.9 ??? Tongue cancer C02.9 ??? Tinnitus H93.19 ??? History of tongue cancer Z85.810 ??? Radiation injury T66.XXXA ??? DIFFICULT AIRWAY T88.4XXA ??? Periodontal disease K05.6 PAST MEDICAL HISTORY Past Medical History: Diagnosis Date ??? Allergic rhinitis ??? Cancer of head, face, and neck ??? Hypothyroidism SOCIAL HISTORY Social History Tobacco Use ??? Smoking status: Never Smoker ??? Smokeless tobacco: Never Used Substance Use Topics ??? Alcohol use: Yes Comment: seldom, 4 drinks per year MEDICATIONS Current Outpatient Medications on File Prior to Visit Medication Sig Dispense Refill ??? levothyroxine (SYNTHROID) 112 mcg Tablet daily. ??? dexamethasone (DECADRON) 0.1 % Drops 1 drop every 3 hours. ??? cevimeline (EVOXAC) 30 mg Capsule Take 1 capsule by mouth 3 times daily. 90 capsule 12 ??? EPINEPHrine 0.3 mg/0.3 mL Auto-Injector Inject 0.3 mLs into the muscle once as needed for up to1 dose. 1 each 1 ??? Chlorpheniramine Maleate 12 mg Tablet Sustained Release Take 1 tablet by mouth every 12 hours. 60 tablet 11 ??? calcium carbonate (TUMS) 200 mg calcium (500 mg) Tablet, Chewable Take 2 tablets by mouth daily. ??? acetaminophen (TYLENOL) 160 mg/5 mL Elixir Take 15 mg/kg/dose by mouth every 4 hours as needed for Fever. Reported on 02/24/2016 ??? SYMBICORT 80-4.5 mcg/actuation HFA Aerosol Inhaler ??? triamcinolone acetonide (KENALOG) 0.1 % Paste Place onto teeth 3 times daily. (Patient not taking: Reported on 05/13/2018) 5 g 0 ??? lidocaine (XYLOCAINE) 2 % Solution Take 5 mLs by mouth as needed for Pain. (Patient not taking:Reported on 03/28/2018) 100 mL 1 ??? ibuprofen (ADVIL;MOTRIN) 100 mg/5 mL Suspension Take by mouth every 4 hours as needed for Fever. ??? albuterol 90 mcg/actuation HFA Aerosol Inhaler Inhale 2 puffs into the lungs every 4 hours as needed for Wheezing. (Patient not taking: Reported on 07/04/2018) 1 Inhaler 1 No current facility-administered medications on file prior to visit. ALLERGIES Allergies Allergen Reactions ??? Benzocaine Made pt tongue red and angry. Irritant reaction - allergy testing negative ??? Birch Other (See Comments) Birch pollen: wheezing and throat constriction ??? Lidocaine Viscous [Lidocaine Hcl] Irritant reaction - allergy testing negative ROS 8 point Review of Systems was normal except for pertinent positives and negatives included in the History of Present Illness. PHYSICAL EXAMINATION Physical Examination: VITALS - Height 157.5 cm (5' 2), weight 45.4 kg (100 lb). GENERAL - Well dressed and well nourished. - Breathing comfortably without stridor. - No acute distress. FACE - Full and symmetric facial movement. - No dysmorphic facial features. EYES - Periocular structures and conjunctiva healthy without lesions. - Pupils are equal, round, and reactive to light. - Extraocular movement is full and intact. - No evidence of nystagmus. EARS Left: - Auricle normal exam. - External auditory canal with cerumen impaction. Right: - Auricle normal exam. - External auditory canal with cerumen impaction. NOSE - Grossly patent anteriorly. MOUTH -??Post surgical changes noted.?? -??Lips and gingiva pink, moist, with some erosion of the attached gingiva at the mandibular central incisors??along the labial aspect.?? -??Tongue with minimal mobility. - Right lateral tongue bite injury area appears resolved; without erythema or associated induration; some slight tenderness to palpation noted. - Left lateral tongue without evidence of recurrence. -??FOM on right soft; on the left with induration, stable, noted on prior exams. - 2cm trismus, stable.? - Hard palate without lesions. PHARYNX - Post radiation changes noted. - Uvula is midline. - Oropharynx symmetric. NECK - Post surgical and radiation changes note; without significant lymphadenopathy. - Thyroid gland without masses or asymmetry. - Trachea midline without deviation. LUNGS - Clear to auscultation bilaterally without wheezes. HEART - Regular rate and rhythm without murmur. NEURO - Cranial nerves II-XII intact and symmetric. - Responds appropriately to questions. PSYCHE - Normal mood and affect. PROCEDURES REVIEW OF IMAGES/STUDIES ASSESSMENT/RECOMMENDATIONS - No evidence of recurrence. - Recent tongue bit injury appears resolved, though still slightly tender to palpation. - Discussed monitoring her lip spasms for worsening of symptoms. - Discussed offering a referral to GI regarding her abdominal spasming/possible esophagitis. - The patient expressed understanding of these points and agreement with the plan, and all questions that were asked were answered to the patient's satisfaction. Plan: > Return to clinic to see Dr. Lee in August, already scheduled. > Referral to Gastroenterology. > Patient should call if their symptoms worsen or fail to improve, if new concerning symptoms arise, or if they have any questions or concerns regarding their treatment. I appreciate the opportunity to be involved in Ms. Hollis's care. Hermelindo Kearney PA-C [place], [place] [phone] Office 07/04/2018 documented in this encounter Plan of Treatment Not on file documented as of this encounter Visit Diagnoses Diagnosis H/O tongue cancer Personal history of malignant neoplasm of tongue documented in this encounter Care Teams Air Brake Mechanic Relationship Specialty Start Date End Date Marck Brody DO [address] [place] [address] PCP - General 02/08/10 10/12/21 documented as of this encounter
--- OUTSIDE RECORDS SUMMARY | 2023-12-08 20:04 | XMS_ITS | Encounter Summary ---
Author Organization [facility] Address [facility] [place] [address] Care Team Providers Care Manager Technical Training Name Role Phone Marck Brody DO Primary Care Provider Reason for Visit * Reason Comments Follow-up Still has tongue les ion. Some foods make it feel worse. Encounter Details Date Type Department Care Team (Late st Contact Info) Description 03/28/2018 3:30 PM EST Office Visit [place] [phone] Hermelindo Kearney PA [facility] [place] [address] Tongue lesion Social History Tobacco Use Types Packs/Day Years [...] - - Weight 45.4 kg (100 lb) 03/28/2018 3:27 PM EST Height 157.5 cm (5' 2) 03/28/2018 3:27 PM EST Body Mass Index 18.29 03/28/2018 3:27 PM EST documented in this encounter Progress Notes * Hermelindo Kearney PA - 03/28/2018 3:30 PM EST [facility] OT[facility]OLOGY FOLLOW UP NOTE Theresa Hollis is a 47 y.o. female followed for: Left Lateral Tongue Cancer ? Primary site: Left lateral tongue Stage: [id number] Surgery(ies): 10/31/06 - Hemiglossectomy, left neck dissection 1-5, skin graft, allograft Radiation: TREATMENT STARTED: 11/28/06 TREATMENT COMPLETED: 01/14/07 TREATMENT: The total maximum dose was 6600 cGy in 33 fractions. Volume reductions were instituted at 5400 cGy in 30 fractions &??6000 cGy in 30 fractions. Chemotherapy: Concurrent cisplatin?? She has recently been seen in clinic for right lateral tongue lesion that appeared to be consistentwith a dental injury/irritation from her adjacent dentition. She also noted tenderness at her anterior tongue, but no lesion was identified in that area. She was prescribed viscous lidocaine for her symptoms, but called soon after as it was very irritating for her. Dexamethesone elixir was prescribed, but the patient felt that it was not helping in a subsequent phone conversation. Topical kenalogpaste was then offered. She returns today for follow up. New issues since last visit: Feels the Kenalog paste didn't help much. Instructions for the Dexamethasone Elixir at the pharmacy was to swallow the medication, not swish and spit as instructed over the phone. There has been no improvement in her symptoms. Has not seen her dentist yet regarding trying Invisoline to lessen her dentition's impact on her tongue. PROBLEM LIST Patient Active Problem List Diagnosis Code ??? Hypothyroidism (acquired) E03.9 ??? Tongue cancer C02.9 ??? Tinnitus H93.19 ??? History of tongue cancer Z85.810 ??? Radiation injury T66.XXXA ??? DIFFICULT AIRWAY T88.4XXA ??? Periodontal disease K05.6 PAST MEDICAL HISTORY Past Medical History: Diagnosis Date ??? Allergic rhinitis ??? Cancer of head, face, and neck ??? Food allergy Diagnosis in question ??? Hypothyroidism SOCIAL HISTORY Social History Tobacco Use ??? Smoking status: Never Smoker ??? Smokeless tobacco: Never Used Substance Use Topics ??? Alcohol use: Yes Comment: seldom, 4 drinks per year MEDICATIONS Current Outpatient Medications on File Prior to Visit Medication Sig Dispense Refill ??? triamcinolone acetonide (KENALOG) 0.1 % Paste Place onto teeth 3 times daily. 5 g 0 ??? ibuprofen (ADVIL;MOTRIN) 100 mg/5 mL Suspension Take by mouth every 4 hours as needed for Fever. ??? cevimeline (EVOXAC) 30 mg Capsule Take 1 capsule by mouth 3 times daily. 90 capsule 12 ??? levothyroxine (SYNTHROID) 100 mcg Tablet TAKE ONE TABLET BY MOUTH EVERY DAY 0 ??? EPINEPHrine 0.3 mg/0.3 mL Auto-Injector Inject 0.3 mLs into the muscle once as needed for up to1 dose. 1 each 1 ??? Chlorpheniramine Maleate 12 mg Tablet Sustained Release Take 1 tablet by mouth every 12 hours. 60 tablet 11 ??? albuterol 90 mcg/actuation HFA Aerosol Inhaler Inhale 2 puffs into the lungs every 4 hours as needed for Wheezing. 1 Inhaler 1 ??? calcium carbonate (TUMS) 200 mg calcium (500 mg) Tablet, Chewable Take 2 tablets by mouth daily. ??? acetaminophen (TYLENOL) 160 mg/5 mL Elixir Take 15 mg/kg/dose by mouth every 4 hours as needed for Fever. Reported on 02/24/2016 ??? [] dexamethasone 0.1 mg/mL Elixir Take 5 mLs by mouth 4 times daily for 7 days. 140 mL 0 ??? lidocaine (XYLOCAINE) 2 % Solution Take 5 mLs by mouth as needed for Pain. (Patient not taking:Reported on 03/28/2018) 100 mL 1 No current facility-administered medications on file prior to visit. ALLERGIES Allergies Allergen Reactions ??? Benzocaine Made pt tongue red and angry. Irritant reaction - allergy testing negative ??? Birch Other (See Comments) Birch pollen: wheezing and throat constriction ??? Eggshell Membrane Other (See Comments) Wheezing, throat constriction ??? Fish Containing Products Other (See Comments) All seafood, including shellfish: wheezing and throat constriction ??? Lidocaine Viscous [Lidocaine Hcl] Irritant reaction - allergy testing negative ??? Spinach Other (See Comments) wheezing ROS 8 point Review of Systems was normal except for pertinent positives and negatives included in the History of Present Illness. PHYSICAL EXAMINATION Physical Examination: VITALS - Height 157.5 cm (5' 2), weight 45.4 kg (100 lb). GENERAL - Well dressed and well nourished. - Breathing comfortably without stridor. - No acute distress. MOUTH -??Post surgical changes noted.?? -??Lips and gingiva pink, moist, with some erosion of the attached gingiva at the mandibular central incisors along the labial aspect. -??Tongue with minimal mobility. - Right lateral tongue with an ~1cm x 7mm lesion with some light fibrinous exudate and minor surrounding erythema, tender to palpation; no associated induration noted; anterior tongue without induration, swelling, or ulceration. -??Lower left premolar and central incisors slightly mobile.? -??FOM on right soft; on the left with induration, stable, noted on prior exams. - 2cm trismus, stable. ?? - Hard palate without lesions. PROCEDURES REVIEW OF IMAGES/STUDIES ASSESSMENT/RECOMMENDATIONS - No improvement in tongue symptoms. - Discussed continuing with the Dexamethasone Elixir for 3 full weeks to see if her symptoms improve. - Discussed importance of seeing he dentist regarding getting Invisoline. - Discussed her calling for any worsening of her symptoms, or continued lack of improvement. - The patient expressed understanding of these points and agreement with the plan, and all questions that were asked were answered to the patient's satisfaction. Plan: > Dexamethasone Elixir, 3 times per day, swish for 1-2 minutes, then spit. > See dentist regarding Invisoline. > Patient should call if their symptoms worsen or fail to improve, if new concerning symptoms arise, or if they have any questions or concerns regarding their treatment. > Return to clinic per grid if not prior, depending on symptom resolution. I appreciate the opportunity to be involved in Ms. Hollis's care. Hermelindo Kearney PA-C [place], [place] [address] Office 03/28/2018 documented in this encounter Plan of Treatment Not on file documented as of this encounter Visit Diagnoses Diagnosis Tongue lesion Other specified conditions of the tongue documented in this encounter Care Teams Manager Technical Training Relationship Specialty Start Date End Date Marck Brody DO [address] [place] [address] PCP - General 02/08/10 10/12/21 documented as of this encounter
--- OUTSIDE RECORDS SUMMARY | 2023-12-08 20:04 | XMS_ITS | Encounter Summary ---
Author Organization [facility] [place] [address] Care Team Providers Care Sales Representative Advertising Name Role Phone Marck Brody DO Primary Care Provider [phone] Encounter Details Date Type Department Care Team (Late st Contact Info) Description 09/16/2019 Telephone [place] [phone] Fabiola Gagnon Social History Tobacco Use Types [...] * Telephone Encounter - Fabiola Gagnon - 09/16/2019 6:04 PM EDT I advised her when she checks in at to let the law firm receptionist know to page Dr. Lee, I also advised her for now he wants me to keep the appointment with him on 10/26 * Telephone Encounter - Fabiola Gagnon - 09/16/2019 3:54 PM EDT Spoke to Theresa and confirmed FARRUKH wants to see her when she comes to see and he advised that around 11:30 would be good documented in this encounter Plan of Treatment Not on file documented as of this encounter Visit Diagnoses Not on filedocumented in this encounter Care Teams Sales Representative Advertising Relationship Specialty Start Date End Date Marck Brody DO [address] [place] [address] PCP - General 02/08/10 10/12/21 documented as of this encounter
--- OUTSIDE RECORDS SUMMARY | 2023-12-08 20:04 | XMS_ITS | Encounter Summary ---
Author Organization [facility] Address [facility] [place] [address] Care Team Providers Care Refrigeration Engineering Teacher Name Role Phone Marck Brody DO Primary Care Provider [phone] Encounter Details Date Type Department Care Team (Late st Contact Info) Description 05/13/2019 10:15 PM EST Ancillary Procedure Radiology Library at [facility] [place] [phone] Roberth Lee MD [facility] [place] [address] Social History Tobacco Use Types Packs/Day Years [...] Associated Diagnosis Comments FILM LIBRARY STORAGE ONLY DX GI STUDY Routine 05/13/2019 10:14 PM EST documented in this encounter Results * Film Library- Storage Only DX GI Study (05/13/2019 10:14 PM EST) Narrative [facility] - 05/13/2019 10:14 PM EST This exam is auto-finalizing. It's purpose is for storage only. Roberth Lee MD IMG FILM LIBRARY O RDERABLES [place], [place] documented in this encounter Visit Diagnoses Not on filedocumented in this encounter Care Teams Refrigeration Engineering Teacher Relationship Specialty Start Date End Date Marck Brody DO [address] [place] [address] [address] [place] [address] PCP - General 02/08/10 10/12/21 documented as of this encounter
--- OUTSIDE RECORDS SUMMARY | 2023-12-08 20:04 | XMS_ITS | Encounter Summary ---
Author Organization [place] [address] Care Team Providers Care Gradall Operator Name Role Phone Marck Brody DO Primary Care Provider [phone] Reason for Visit * Reason Comments On Treatment Visit HBO #6 Encounter Details Date Type Department Care Team (Latest Contact Info) Description 10/28/2019 6:58 AM EDT - 10/28/2019 11:59 PM EDT [facility] [place] [phone] Osteoradionecrosis of jaw Discharge Disposition: Home Social [...] Sign Reading Time Taken Comments Blood Pressure 113/76 10/28/2019 9:16 AM EDT Pulse 66 10/28/2019 9:16 AM EDT Temperature 36.3 ??C (97.3 ??F) 10/28/2019 7:15 AM ED T Respiratory Rate 16 10/28/2019 7:15 AM EDT Oxygen Saturation - - [...] Progress Notes * Lucie Quigley RN - 10/28/2019 7:22 AM EDT INTERVAL HISTORY: Patient denies any discomfort, changes, issues, complaints. Arrived ambulatory with steady gait. Neurological Status: A+O Respiratory Status: easy respirations Visual Change: Reports similar changes to those experienced with HBOT in 2015. Headache: denies Cough: Occasional cough related to secretions. Cold symptoms: denies Ear Discomfort/Issues: denies Chest Pain/Palpatations: denies Wound/Dressing: N/A Pain Level: 0 (0-10 scale) * If greater than 5, document interventions. 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 100% cotton clothing in place. Patient checked for non-approved chamber items. Ears checked. No redness noted. View of tympanic membranes obstructed by wax. Patient assessed and met criteria to proceed with hyperbaric treatment. Safety checklist completed with patient. Grounding strap applied and grounding verified, patient placed in chamber, communications checked. Tamia Catalan RN / Laura Quigley RN administered the treatment and monitored the patient. HYPERBARIC TREATMENT: Number - 6 Planned number of treatments - 30 Compression Rate: 1.3 psi/min Decompression Rate: 2.5 psi/min TROY - 2.4 Start Compression Reach Treatment Pressure - TROY Air Break Start Air Break Completed Start Decompression Treatment Completed 0717 0735 0820 0830 0905 0913 Sechrist Chamber # 1 Encouraged patient [...] Practice Guidelines for Hyperbaric Oxygen Therapy through [facility]. No interventions required today. Patient tolerated compression at rate of 1.3 psi/min without difficulty. Patient alert and oriented. Ambulating with steady gait. Patient assessed and found appropriate to leave the Hyperbaric area at the conclusion of today???s session. Continue HBOT as planned. Next treatment scheduled for 10/29/19. documented in this encounter Plan of Treatment Not on file documented as of this encounter Visit Diagnoses Diagnosis Osteoradionecrosis of jaw Other specified disease of the jaws documented in this encounter Care Teams Gradall Operator Relationship Specialty Start Date End Date Marck Brody DO [address] [place] [address] PCP - General 02/08/10 10/12/21 documented as of this encounter
--- OUTSIDE RECORDS SUMMARY | 2023-12-08 20:04 | XMS_ITS | Encounter Summary ---
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 Patient reports 3/10 pain in jaw. Alert and oriented, VSS. Neurological Status: intact Respiratory Status: WNL Visual Change: none Headache: none Cough: none Cold symptoms: none Ear Discomfort/Issues: Patient reports increased symptoms of Tinnitus in both ears post treatment yesterday. Symptoms resolved today Chest Pain/Palpatations: denies Wound/Dressing: none Other: Pre Treatment Glucose: N/A Intervention for hypoglycemia if necessary: Repeat Blood Glucose (prior to HBOT): Pain Level: 3 (0-10 scale) * If greater than 5, document interventions. 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 100% cotton clothing in place. Patient checked for non-approved chamber items. Tympanic membranes checked. No redness or perforation noted. Patient assessed and met criteria to proceed with hyperbaric treatment. Safety checklist completed with patient. Grounding strap applied and grounding verified, patient placed in chamber, communications checked. Tamia Catalan RN / Huma Page RN administered the treatment and monitored the patient. HYPERBARIC TREATMENT: Number - 2 Planned number of treatments - 30 (20 prior to dental procedure, 10 after) Compression Rate: 2.0 psi/min Decompression Rate: 2.5 psi/min TROY - 2.4 Start Compression Reach Treatment Pressure - TROY Air Break Start Air Break Completed Start Decompression Treatment Completed 0728 0750 0835 0845 0920 0932 Sechrist Chamber # 1 Encouraged patient to [...] Guidelines for Hyperbaric Oxygen Therapy through [facility]. No interventions required today. Post treatment glucose: N/A Patient alert and oriented. Ambulating with steady gait. Patient assessed and found appropriate to leave the Hyperbaric area at the conclusion of today???s session. Continue HBOT as planned. Next treatment scheduled for 10/23/2019. * Norma Lugo MD - 10/22/2019 7:59 AM EDT I saw Ms. Hollis this morning before the start of her second treatment. She had some difficulty compressing yesterday while she remembered how to clear her ears. She had some tinnitus after treatment, which she said she had after her last round of HBOT. She started Vitamin E last night. Overall, however, she tolerated the treatment well and continues on #2 today. Documentation of Informed Consent to Participate in Research Study October 22, 2019 [id number]: Multicenter Registry for Hyperbaric Oxygen Therapy: Long-term Follow Up Patient was offered the opportunity to participate in study protocol [id number] long-term follow up. Study protocol reviewed with patient, including description of study purpose, potential risks and benefits, voluntary nature of participation, and requirements of participation. Discussed confidentiality of patient's private health information as specified in consent form. Patient informed that she may discontinue study involvement at any time; informed that declining to participate or discontinuing study participation will not compromise her access to treatment options orcare at this institution. Theresa Hollis was given written informed consent form to read and review. She was given adequatetime to review all information, and to ask questions and review concerns, all of which were answered to her satisfaction. Patient verbalized understanding of this protocol and consented for participation in study [id number]. Consent form was signed and dated by patient and play writer. Written informed consent was obtained prior to any study procedures being done. A copy of the signed consent form was given to patient. Original, signed informed consent document given to clinical research coordinator for scanning into eD. Norma Lugo MD documented in this encounter Plan of Treatment Not on file documented as of this encounter Visit Diagnoses Diagnosis Osteoradionecrosis of jaw Other specified disease of the jaws documented in this encounter Care Teams Interim Controller Relationship Specialty Start Date End Date Marck Brody DO [address] [place] [address] PCP - General 02/08/10 10/12/21 documented as of this encounter
--- OUTSIDE RECORDS SUMMARY | 2023-12-08 20:04 | XMS_ITS | Encounter Summary ---
Author Organization [facility] [place] [address] Care Team Providers Care Glazier Artist Name Role Phone Marck Brody DO Primary Care Provider Reason for Visit * Reason Comments On Treatment Visit HBOT #1 Encounter Details Date Type Department Care Team (Latest Contact Info) Description 10/21/2019 7:44 AM EDT - 10/21/2019 11:59 PM EDT Hospital En[facility] [place] [phone] Osteoradionecrosis of jaw Discharge Disposition: Home Social [...] Sign Reading Time Taken Comments Blood Pressure 119/63 10/21/2019 10:36 AM EDT Pulse 68 10/21/2019 10:36 AM EDT Temperature 36.3 ??C (97.3 ??F) 10/21/2019 8:27 AM ED T Respiratory Rate 16 10/21/2019 8:27 AM EDT Oxygen Saturation - - Inhaled [...] Progress Notes * Candice Catalan RN - 10/21/2019 9:02 AM EDT Initial Hyperbaric Nursing Assessment and Treatment Theresa Hollis was seen in Hyperbaric Medicine for initial assessment, screening and teaching today. Chart reviewed for pertinent medical history and Learning Needs Assessment reviewed/completed [facility]. Allergies reviewed and Medication List verified with patient. Consent for treatment was signed. Lung Imaging addressed. [ ] CXR w/in past year acceptable [X ] other, explain: 01/19/[address] Mcdonald. Neuro Status: Alert, oriented x4 Resp. Status: Respirations easy. Cardiac Status: WNL Baseline Pain Level:(0-10 Colton Pain Assessment Tool) Currently no pain at all (0), but endorses occasional jaw pain - I can provoke it. Location: jaw Treatment: Self-medicates with ibuprofen. Mobility/Fall Risk: Gait steady, no assistive devices. Unfamiliar surroundings. Vision: _X_Glasses__Contacts (_Hard, _ Soft), Reason for glasses: Both near and distance vision Requires glasses to see TV? No Glasses made with titanium? Unknown; metal frames, patient able to remove glasses during HBOT. Cataracts or previous eye surgery? No Without corrective lens Both Right Left Snellen 20/100 20/100 20/100 Near Vision 20/20 20/25 20/25 Autorefractor Results Sphere Cylinder Mission Right Eye -1.25 -1.50 95 Left Eye -1.25 -1.50 77 _X__ Discussed potential for visual changes during the course of HBOT, encouraged patient to reportany visual changes. Tympanometry: (WNL X__, Not WNL __) Comments: Type A tympanogram bilaterally Peak Compliance Peak pressure Gradient Ear canal volume Left ear 0.8 ml -9 daPa 83 daPa 0.8 ml Right ear 0.7 ml -33 daPa 84 daPa 1.3 ml Diabetic: No Nutrition Concerns/ Supplements: Encouraged adequate protein intake and well- balanced meals with lots of vegetables and fruits for wound healing, instructed to take Vitamin E 400 International Units by mouth daily during HBOT. Wound Care: (Description, location, measurements, treatment/dressings) N/A Psycho/Social: (Family/community support, referrals) Family supportive; Mom here today. Education/Instructions reviewed: Understanding of mechanism of action of HBOT and patient specific indication for hyperbaric medicine _X__, Equalizing ear pressure__X_, Smoking cessation _N/A__, Chamber Safety _X__ , Chamber communication _X__, Temperature changes_X__, Vit. E indication/dosage _X__, Symptoms /Difficulties/Concerns to report to staff immediately (difficulty clearing ears, ear/sinuspain, shortness of breath, chest pain, twitching, numbness, blurred vision, unusual sweating, N/V, feelings of claustrophobia, any unusual sensations, changes, concerns) __X_, Patient provided with written information in HBO Introductory Packet and verbalizes understanding of teaching _X__. Patient Goals/Expectations for HBOT: Ensure good healing after jaw surgery. Contact Information: Primary contact #: [phone] May we leave a message?: Y RN Completed Learning Needs Assessment and Care Plan in chart (EDUCATION tab) Hyperbaric Oxygen Treatment: Pain Level: 0 (0-10 scale) * If [...] verified, patient placed in chamber, communications checked. Laura Quigley RN/Tamia Catalan RN administered the treatment and monitored the patient. HYPERBARIC TREATMENT: Number-1 Planned number of treatments-30; 20 prior to procedure Compression Rate: 1.7 psi/min Decompression Rate: 2.0 psi/min TROY-2.4 Start Compression Reach Treatment Pressure - TROY Air Break Start Air Break Completed Start Decompression Treatment Completed 0831 0853 0938 0948 1023 1034 Sechrist Chamber # 2 Encouraged patient to [...] HBOT as planned. Next treatment scheduled for 10/22/2019. * Norma Lugo MD - 10/21/2019 8:31 AM EDT I saw Ms. Hollis at her first treatment today. She is feeling well and has previously tolerated HBOT well, without difficulty. She is considering participating in the long-term followup study and will take the consent form home and return it when she has read it. Informed Consent: Had full discussion of risks and benefits of hyperbaric oxygen therapy in this setting including, but not limited to, oxygen toxicity, seizures, pneumothorax, visual changes, and the promotion of the growth of cataracts. Discussed theoretical risk of promotion of cancer growth if tumor present. Consent was obtained and placed in the chart. Norma Lugo MD documented in this encounter Plan of Treatment Not on file documented as of this encounter Visit Diagnoses Diagnosis Osteoradionecrosis of jaw Other specified disease of the jaws documented in this encounter Care Teams Glazier Artist Relationship Specialty Start Date End Date Marck Brody DO [address] [place] [address] PCP - General 02/08/10 10/12/21 documented as of this encounter
--- OUTSIDE RECORDS SUMMARY | 2023-12-08 20:04 | XMS_ITS | Encounter Summary ---
Author Organization [facility] [place] [address] Care Team Providers Care French Polisher Name Role Phone Marck Brody DO Primary Care Provider [phone] Reason for Visit * Reason Onset Date Comments Questions 09/16/2018 re: upcoming MBS Encounter Details Date Type Department Care Team (Late st Contact Info) Description 09/16/2018 Telephone [place] [address] Neo Sherman, RN Questions (re: upcoming MBS) Social History Tobacco Use Types Packs/Day Years [...] encounter Miscellaneous Notes * Telephone Encounter - Neo Sherman, FUENTES - 09/17/2018 2:22 PM EDT Nursing Phone Note Patient called with a couple of questions about upcoming Modified Barium Swallow. She wants to knowif the barium will sting the inside of her mouth, and her instructions of NPO after midnight mean absolutely no intake, as in black coffee. Placed call to flouroscopy: they described the barium solution as chalky, with a hint of strawberryflavor. They would like the patients to be completely NPO - any intake could interfere results. Shemay take necessary medications with a sip of water, but would recommend taking non-essential meds after the exam. Returned call to patient, and she is in understanding. documented in this encounter Plan of Treatment Not on file documented as of this encounter Visit Diagnoses Not on filedocumented in this encounter Care Teams French Polisher Relationship Specialty Start Date End Date Marck Brody DO [address] [place] [address] PCP - General 02/08/10 10/12/21 documented as of this encounter
--- OUTSIDE RECORDS SUMMARY | 2023-12-08 20:04 | XMS_ITS | Encounter Summary ---
Author Organization [facility] [place] [address] Care Team Providers Care Erp Implementation Consultant Name Role Phone Marck Brody DO Primary Care Provider Encounter Details Date Type Department Care Team (Late st Contact Info) Description 05/13/2018 9:00 AM EST - 05/13/2018 11:59 PM [facility] Hospital Encounter Mammography/[place] [phone] Marck Brody DO [address] [place], [place] [id number] Encounter for screening mammogram for breast cancer [...] every 4 hours as needed for Fever. dexamethasone 0.1 mg/mL Elixir Take 10 mLs by mouth 4 times daily for 14 days. 560 mL 05/13/2018 05/27/2018 levothyroxine (SYNTHROID) 112 mcg Tablet daily. 05/02/2018 10/08/2019 SYMBICORT 80-4.5 mcg/actuation HFA Aerosol Inhaler 05/10/2018 10/08/2019 dexamethasone (DECADRON) 0.1 % Drops 1 drop every 3 hours. 10/08/2019 triamcinolone acetonide (KENALOG) 0.1 % Paste Place onto teeth 3 times daily. 5 g 03/25/2018 10/08/2019 lidocaine (XYLOCAINE) 2 % Solution Take 5 mLs by mouth as needed for Pain. 100 mL 1 03/18/2018 10/08/2019 cevimeline (EVOXAC) 30 mg CapsuleIndications:Ton boby cancer Take 1 capsule by mouth 3 times daily. 90 capsule 12 12/11/2017 12/20/2018 EPINEPHrine 0.3 mg/0.3 mL Auto-Injector Inject 0.3 mLs into the muscle once as needed for up to 1 dose. 1 each 1 10/05/2017 10/08/2019 Chlorpheniramine Maleate 12 mg Tablet Sustained Release Take 1 tablet by mouth every 12 hours. 60 tablet 11 05/14/2017 10/08/2019 albuterol 90 mcg/actuation HFA Aerosol Inhaler Inhale 2 puffs into the lungs every 4 hours as needed for Wheezing. 1 Inhaler 1 05/14/2017 10/08/2019 calcium carbonate (TUMS) 200 mg calcium (500 mg) Tablet, Chewable Take 2 tablets by mouth daily. 03/22/2020 acetaminophen (TYLENOL) 160 mg/5 mL Elixir Take 15 mg/kg/dose by mouth every 4 hours as needed for Fever. Reported on 02/24/2016 10/08/2019 documented as of this encounter Plan of Treatment Not on file documented as of this encounter Procedures Procedure Name Priority Date/Time Associated Diagnosis Comments MAMMO SCREENING CAD AND DEMETRIO BILATERAL Routine 05/13/2018 9:37 AM EST Encounter for screening mammogram for breast cancer documented in this encounter Results * Mammo Screening Cad and Demetrio Bilateral (05/13/2018 9:37 AM EST) Anatomical Region Laterality Modality Breast Bilateral Mammography Narrative 05/13/2018 9:50 AM EST BILATERAL MAMMOGRAPHY REASON FOR EXAM: [...] CONCLUSION: No mammographic evidence of malignancy. RECOMMENDATION: Medical organizations agree that annual screening mammography beginning at age 40 saves the most lives. The risks of screening are negligible compared to dying from breast cancer or suffering from more aggressive treatment required when detected at a later stage. No woman is at low risk for breast cancer. Some women, because of their family history, a genetic tendency, or certain other factors, should be screened with breast MRI along with mammograms. (The number of women who fall into this category is very small). The patient and health care provider should discuss the patient history and decide if earlier screening and breast MRI are appropriate. Screening should continue as long as a woman is in good health and is expected to live 10 years or longer. Screening mammography may not detect 10-15% of breast cancers. Women should report any breast changes to a health care provider right away. A result letter has been sent to this patient by [facility]. BIRADS CATEGORY 1: NEGATIVE Marck DYE MAMMO ORDERABLES documented in this encounter Visit Diagnoses Diagnosis Encounter for screening mammogram for breast cancer documented in this encounter Care Teams Erp Implementation Consultant Relationship Specialty Start Date End Date Marck Brody DO [address] [place] [address] [address] [facility] [address] [place] [address] PCP - General 02/08/10 10/12/21 documented as of this encounter
--- OUTSIDE RECORDS SUMMARY | 2023-12-08 20:04 | XMS_ITS | Encounter Summary ---
Author Organization [facility] [place] [address] Care Team Providers Care Stock And Station Agent Name Role Phone Marck Brody DO Primary Care Provider Encounter Details Date Type Department Care Team (Late st Contact Info) Description 10/09/2019 Telephone [place]ill[place] [phone] Theresa Garay RN Social History Tobacco Use [...] Telephone Encounter - Theresa Garay RN - 10/09/2019 2:21 PM EDT I called the patient and passed Dr. Ng's message to her. The patient was appreciative of the update. * Telephone Encounter - Theresa Garay RN - 10/09/2019 2:21 PM EDT ----- Message from Keyur Ng MD sent at 10/09/2019 8:08 AM EDT ----- Regarding: RE: CT scan and next steps Hi, can you please call her back. Tell her that I am running CT scan by a different radiologist andjust communicated with Jesus and Dr. Mcdonald to figure things out. Hopefully in touch Sunday. Thanks. ----- Message ----- From: Theresa Garay RN Sent: 10/08/2019 3:36 PM EDT To: Keyur Ng MD Subject: CT scan and next steps Please see CT scan of head scanned into chart dated 10/03/19 and advise. Patient called looking for next steps. Thanks! Theresa documented in this encounter Plan of Treatment Not on file documented as of this encounter Visit Diagnoses Not on filedocumented in this encounter Care Teams Stock And Station Agent Relationship Specialty Start Date End Date Marck Brody DO [address] [place] [address] PCP - General 02/08/10 10/12/21 documented as of this encounter
--- OUTSIDE RECORDS SUMMARY | 2023-12-08 20:04 | XMS_ITS | Encounter Summary ---
Author Organization [facility] [place] [address] Care Team Providers Care Supervisor Cleaning And Annealing Name Role Phone Marck Brody DO Primary Care Provider [phone] Reason for Visit * Reason Comments Follow-up Encounter Details Date Type Department Care Team (Late st Contact Info) Description 08/05/2018 12:00 PM EDT Office [place] [phone] Roberth Little MD [facility] [place] [address] H/O tongue cancer; Pathological fracture of mandible, sequela; Osteonecrosis of mandible; Dysphonia; Esophageal spasm Social History Tobacco Use Types Packs/Day Years [...] - - Weight 43.1 kg (95 lb) 08/05/2018 11:37 AM EDT Height 157.5 cm (5' 2) 08/05/2018 11:37 AM EDT Body Mass Index 17.38 08/05/2018 11:37 AM EDT documented in this encounter Progress Notes * Roberth Little MD - 08/05/2018 12:00 PM EDT [facility] FOLLOW UP NOTE Theresa Hollis is a 48 y.o. female followed for: Primary site: Left lateral tongue Stage: [id number] Surgery(ies): 10/31/06 - Hemiglossectomy, left neck dissection 1-5, skin graft, allograft Radiation: TREATMENT STARTED: 11/28/06 TREATMENT COMPLETED: 01/14/07 TREATMENT: The total maximum dose was 6600 cGy in 33 fractions. Volume reductions were instituted at 5400 cGy in 30 fractions &??6000 cGy in 30 fractions. Chemotherapy: Concurrent cisplatin?? New issues since last visit: She has been having more trouble with her lower bridge and loosening of the left latera incisor. Apparently has been to the dentist multiples to have this glued. She is concerned that she may not be able to wear her lower bridge. She also reports intermittent spasms in there esophagus. She also reports dysphonia and is wondering if an injection can help. PROBLEM LIST Patient Active Problem List Diagnosis [...] levothyroxine (SYNTHROID) 112 mcg Tablet daily. ??? cevimeline (EVOXAC) 30 mg Capsule Take 1 capsule by mouth 3 times daily. 90 capsule 12 ??? EPINEPHrine 0.3 mg/0.3 mL Auto-Injector Inject 0.3 mLs into the muscle once as needed for up to1 dose. 1 each 1 ??? calcium carbonate (TUMS) 200 mg calcium (500 mg) Tablet, Chewable Take 2 tablets by mouth daily. ??? acetaminophen (TYLENOL) 160 mg/5 mL Elixir Take 15 mg/kg/dose by mouth every 4 hours as needed for Fever. Reported on 02/24/2016 ??? SYMBICORT 80-4.5 mcg/actuation HFA Aerosol Inhaler ??? dexamethasone (DECADRON) 0.1 % Drops 1 drop every 3 hours. ??? triamcinolone acetonide (KENALOG) 0.1 % Paste Place onto teeth 3 times daily. (Patient not taking: Reported on 05/13/2018) 5 g 0 ??? lidocaine (XYLOCAINE) 2 % Solution Take 5 mLs by mouth as needed for Pain. (Patient not taking:Reported on 08/05/2018) 100 mL 1 ??? ibuprofen (ADVIL;MOTRIN) 100 mg/5 mL Suspension Take by mouth every 4 hours as needed for Fever. ??? Chlorpheniramine Maleate 12 mg Tablet Sustained Release Take 1 tablet by mouth every 12 hours. (Patient not taking: Reported on 08/05/2018) 60 tablet 11 ??? albuterol 90 mcg/actuation HFA Aerosol Inhaler Inhale 2 puffs into the lungs every 4 hours as needed for Wheezing. (Patient not taking: Reported on 08/05/2018) 1 Inhaler 1 No current facility-administered medications on file prior to visit. ALLERGIES Allergies Allergen Reactions ??? Benzocaine Made pt tongue red and angry. Irritant reaction - allergy testing negative ??? Birch Other (See Comments) Birch pollen: wheezing and throat constriction ??? Lidocaine Viscous [Lidocaine Hcl] Irritant reaction - allergy testing negative ROS Pertinent positive findings discussed above. No other findings on review of constitutional visual, cardiovascular, respiratory, gastrointestinal, genitourinary, musculoskeletal, dermatologic, neurological, psychiatric, endocrine, hematologic or immunologic systems. PHYSICAL EXAMINATION Wt Readings from Last 3 Encounters: 08/05/18 43.1 kg (95 lb) 07/04/18 45.4 kg (100 lb) 02/25/19 45.8 kg (101 lb) General: Well developed, no distress Head/face: Normocephalic, atraumatic Oral cavity: S/p left partial glossectomy with no recurrence. No exposed bone. Lower incisor on the left is tender to percussion. Oropharynx: Normal soft palate, tonsils, lateral pharyngeal [...] to questions. PROCEDURES Procedure Flexible Fiberoptic Laryngoscopy with Stroboscopy Indication Dysphonia, history of oral cancer. Description Informed verbal consent obtained and time out performed. A flexible laryngoscope was used to evaluate bilateral nasal cavity, nasopharynx, oropharynx, hypopharynx and larynx. The examination was recorded on the Tele[employer] Unit and uploaded to the [employer] Senior Software Quality Analyst. Findings Nasal cavity normal Nasopharynx normal Oropharynx Fibrosis along the tongue base and lateral wall on the left Larynx Normal mobility with very small nodule anterior 1/3 left vocal cord. Normal mucosal wave with occasional disruption due to nodule. Significant secretions pooling around the larynx Hypopharynx Blunting of hypopharynx on the left. REVIEW OF IMAGES None ASSESSMENT/RECOMMENDATIONS 1 - ORN mandible. To see Dr. Ng today. Panorex. Will discuss with Dr. Ng after he sees her. Would try to avoid resection of bone and recon if possible. 2 - Dysphonia. Multi-factorial including small nodule, secretions, fibrosis. Does not have significant atrophy to warrant injection. Nodule is quite small and so would hold off on any laryngeal surgery for now 3 - Esophageal spasms. Possibly reflux. DOes have GI referral. Will check [facility] as well. I appreciate the opportunity to be involved in Ms. Hollis's care. 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
--- OUTSIDE RECORDS SUMMARY | 2023-12-08 20:04 | XMS_ITS | Encounter Summary ---
Author Organization [facility] [place] [address] Care Team Providers Care City Solicitor Name Role Phone Marck Brody DO Primary Care Provider Encounter Details Date Type Department Care Team (Late st Contact Info) Description 04/26/2018 Telephone [place] [phone] Latoya Molina Social History Tobacco Use Types [...] on filedocumented in this encounter Care Teams City Solicitor Relationship Specialty Start Date End Date Marck Brody DO [address] [place], [place] [address] PCP - General 02/08/10 10/12/21 documented as of this encounter
--- OUTSIDE RECORDS SUMMARY | 2023-12-08 20:04 | XMS_ITS | Encounter Summary ---
Author Organization [facility] [place] [address] Care Team Providers Care Regional Safety Manager Name Role Phone Marck Brody DO Primary Care Provider [phone] Reason for Visit * Reason Comments On Treatment Visit HBOT #4 Encounter Details Date Type Department Care Team (Latest Contact Info) Description 10/24/2019 6:58 AM EDT - 10/24/2019 11:59 PM EDT Hospital En[facility] [place] [phone] Osteoradionecrosis of jaw Discharge Disposition: Home Social [...] Sign Reading Time Taken Comments Blood Pressure 126/76 10/24/2019 9:28 AM EDT Pulse 65 10/24/2019 9:28 AM EDT Temperature 36.6 ??C (97.9 ??F) 10/24/2019 7:15 AM ED T Respiratory Rate 16 10/24/2019 7:15 AM EDT Oxygen Saturation - - [...] Progress Notes * Candice Catalan RN - 10/24/2019 7:25 AM EDT INTERVAL HISTORY: Arrives ambulatory and transfers independently. Patient denies any new discomfort, changes, issues,complaints. Endorses difficulty with left ear during compression yesterday. Discussed w/ patient and will continue to compress at slow (~1.5) rate. Neurological Status: Alert, oriented x4 Respiratory Status: Respirations easy Visual Change: None reported Headache: Denies Cough: None observed Cold symptoms: Denies Ear Discomfort/Issues: Denies Chest Pain/Palpatations: Denies Wound/Dressing: N/A Other: Glasses removed prior to HBOT Pain Level: 0 (0-10 scale) * If greater than 5, document interventions. 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 100% cotton clothing in place. Patient checked for non-approved chamber items. Tympanic membranes checked, view obscured by wax. No redness or drainage noted. Patient assessed and met criteria to proceed with hyperbaric treatment. Safety checklist completed with patient. Grounding strap applied and grounding verified, patient placed in chamber, communications checked. Tamia Catalan RN / Laura Quigley RN administered the treatment and monitored the patient. HYPERBARIC TREATMENT: Number - 4 Planned number of treatments - 30 (20 prior to procedure) Compression Rate: 1.3-1.5 psi/min Decompression Rate: 2.0-2.5 psi/min TROY - 2.4 Start Compression Reach Treatment Pressure - TROY Air Break Start Air Break Completed Start Decompression Treatment Completed [id number] 0831 0841 0916 0926 Sechrist Chamber # 1 Encouraged patient to adjust position during air break. Clinical Practice Guideline for Hyperbaric Oxygen Therapy Prevent and manage for potential problems related to 1.Barotrauma, 2.oxygen toxicity, and 3.Pneumothorax. 4. Situational Problems Assessed: ALL (Barotrauma, Oxygen Toxicity, Pneumothorax, Situational) Problems Present: None, Theresa had difficulty equalizing pressure in left ear again today; resolved with slow compression (1.3-1.5 psi/min), and two slight delays with slight decrease in pressure. No issues on decompression. Patient alert and oriented. Ambulating with steady gait. Patient assessed and found appropriate to leave the Hyperbaric area at the conclusion of today???s session. Continue HBOT as planned. Next treatment scheduled for 10/27/2019. documented in this encounter Miscellaneous Notes * Addendum Note - Candice Catalan RN - 10/24/2019 9:45 AM EDTEncounter addended by: Candice Catalan RN on: 10/24/2019 9:45 AM Actions taken: Clinical Note Signed documented in this encounter Plan of Treatment Not on file documented as of this encounter Visit Diagnoses Diagnosis Osteoradionecrosis of jaw Other specified disease of the jaws documented in this encounter Care Teams Regional Safety Manager Relationship Specialty Start Date End Date Marck Brody DO [address] [place], [place] [address] [place] [address] PCP - General 02/08/10 10/12/21 documented as of this encounter
--- OUTSIDE RECORDS SUMMARY | 2023-12-08 20:04 | XMS_ITS | Encounter Summary ---
[place] [address] Care Team Providers Care Microsoft Systems Engineer Name Role Phone Marck Brody DO Primary Care Provider Encounter Details Date Type Department Care Team (Late st Contact Info) Description 07/23/2018 Telephone [place] [phone] Juanita Walters RN Social History Tobacco Use [...] Telephone Encounter - Juanita Walters RN - 07/23/2018 11:26 AM EDT Patient called asking for urgent appointment with Dr. Lee. States bridge is actually loosening her good teeth. Patient informed geophysical engineer will be made aware and verbalized understanding. Notified geophysical engineer of situation. Will follow up. documented in this encounter Plan of Treatment Not on file documented as of this encounter Visit Diagnoses Not on filedocumented in this encounter Care Teams Microsoft Systems Engineer Relationship Specialty Start Date End Date Marck Brody DO [address] [facility] [facility] [address] [facility] [place] [address] PCP - General 02/08/10 10/12/21 documented as of this encounter
--- OUTSIDE RECORDS SUMMARY | 2023-12-08 20:04 | XMS_ITS | Encounter Summary ---
Author Organization [place] [address] Care Team Providers Care Dye Range Operator Cloth Name Role Phone Marck Brody DO Primary Care Provider Reason for Referral * Consultation (Routine) - Closed Specialty Diagnoses / Procedures Referred By Contac t Referred To Contact Hyperbaric Medicine Diagnoses Osteoradionecrosis of jaw Periodontitis Keyur Ng MD [facility] [place] [address] [place] Mcdonald Jr., MD [facility] [place] [address] Referral ID Status Reason Start Date Expiration Date V isits Requested Visits Authorized [id number] Closed Consult, Test & Treat 09/30/2019 09/29/2020 1 1 Encounter Details Date Type Department Care Team (Latest Contact Info) Description 09/30/2019 11:30 AM EDT Office Visit [place] [address] Keyur Ng MD [facility] [place] [address] Osteoradionecrosis of jaw; Periodontitis Social History Tobacco Use Types Packs/Day Years [...] Progress Notes * Keyur Ng MD - 09/30/2019 11:30 AM EDT Images from the original note were not included. Oral & Maxillofacial Surgery Extraction Consult Theresa Hollis is a 49 y.o. female who is referred to us for consultation regarding dental extractions. Awaiting referral from Dentist Dr Mullins is general dentist, Dr Vieira is farmworker bulbs A complete history of the Theresa 's symptoms and physical signs were reviewed with attention to initial findings and progression, pain, bleeding, swelling, lumps, bumps, drainage, dysphagia, odynophagia, paresthesia, dysarthria and systemic effects. Pertinent notations from today's history: ?? Pain intermittently on lower left ?? Rosangela reports some tooth mobility lower left ?? Trismus since radiation ?? Filling out on top right, possible endo indicated by general dentist ?? Had prosthesis made by Dr. Vieira but has been doing well up until recently and has becoming loose ?? Also has caries of tooth #2 and #30 that needs to be addressed Past Medical and Dental History: Past Medical History: Diagnosis Date ??? Allergic rhinitis ??? Cancer of head, face, and neck ??? Hypothyroidism Patient Active Problem List Diagnosis Code ??? Hypothyroidism (acquired) E03.9 ??? Tongue cancer C02.9 ??? Tinnitus H93.19 ??? History of tongue cancer Z85.810 ??? Radiation injury T66.XXXA ??? DIFFICULT AIRWAY T88.4XXA ??? Periodontal disease K05.6 ??? cevimeline (EVOXAC) 30 mg Capsule ??? levothyroxine (SYNTHROID) 112 mcg Tablet ??? SYMBICORT 80-4.5 mcg/actuation HFA Aerosol Inhaler ??? dexamethasone (DECADRON) 0.1 % Drops ??? triamcinolone acetonide (KENALOG) 0.1 % Paste ??? lidocaine (XYLOCAINE) 2 % Solution ??? ibuprofen (ADVIL;MOTRIN) 100 mg/5 mL Suspension ??? EPINEPHrine 0.3 mg/0.3 mL Auto-Injector ??? Chlorpheniramine Maleate 12 mg Tablet Sustained Release ??? albuterol 90 mcg/actuation HFA Aerosol Inhaler ??? calcium carbonate (TUMS) 200 mg calcium (500 mg) Tablet, Chewable ??? acetaminophen (TYLENOL) 160 mg/5 mL Elixir Allergies Allergen Reactions ??? Benzocaine Made pt tongue red and angry. Irritant reaction - allergy testing negative ??? Birch Other (See Comments) Birch pollen: wheezing and throat constriction ROS with attention to cardiac, pulmonary, hepatic, renal, neurologic and dermatologic systems reviewed with relevant findings as noted. Physical Exam: Extraoral exam conducted including facial symmetry, sensory [...] dentition, dental arches, occlusion and salivary flow. Pertinent and remarkable findings include: Vitals: There were no vitals taken for this visit. There is no height or weight on file to calculate BMI. General: No acute distress, pleasant Focused oral exam: trismus, noted No oral lesions visualized Tenderness and slight erythema apical to tooth #21 region Caries noted mesial of tooth #30 Loose prosthetic Mobility of teeth #21/22 No oral lesions noted Neuro:CN 2-12 intact Neck: soft, supple, no erythema Psych: appropriate, responds to questions normally Radiographic Examination: Panorex taken today Radiolucency enhanced and hypodensity noted in the left lower mandible apical to tooth #21 region this was compared with other Panorex films Impression: Failing lower dentition with periodontitis and caries Possible persistent osteomyelitis Recommendations and Plans: ?? New Ct scan of mandible without contrast to assess the hypodense region noted on the Panorex ?? consult regarding HBO whether this would be beneficial to aid in healing for her extractions-will consult Dr. Mcdonald ?? Cordinate with Dr Vieira, Dr Mullins for treatment recomenations -most likely she will need extractions and then attempt at placing endosteal implants in the right aspect of the mandible but is been away from the radiation site. ?? Hopefully Dr. Vieira can fabricate an implant supported over denture. I will contact him after the CT scan has been done to firm up a treatment plan. Keyur Ng MD, DMD, FACS documented in this encounter Plan of Treatment Scheduled Referrals Name Type Priority Associated Diagnoses Order Schedule Referral to Hyperbaric Medicine Outpatient Referral Routine Osteoradionecrosis of jaw Periodontitis Ordered: 09/30/2019 documented as of this encounter Visit Diagnoses Diagnosis Osteoradionecrosis of jaw Other specified disease of the jaws Periodontitis Chronic periodontitis, unspecified documented in this encounter Care Teams Dye Range Operator Cloth Relationship Specialty Start Date End Date Marck Brody DO [address] [place] [address] [facility] [address] [place] [address] PCP - General 02/08/10 10/12/21 documented as of this encounter
--- OUTSIDE RECORDS SUMMARY | 2023-12-08 20:04 | XMS_ITS | Encounter Summary ---
[place] [address] Care Team Providers Care Informatics Physician Name Role Phone Marck Brody DO Primary Care Provider [phone] Encounter Details Date Type Department Care Team (Late st Contact Info) Description 10/21/2019 Notes Only [place] [address] Allegra Ndiaye, RN Social History Tobacco Use [...] Progress Notes * Allegra Ndiaye, RN - 10/21/2019 10:20 AM EDT Spoke to [facility] at the request of the patient. CPT code 16863 (upcoming surgery on 11/17/19) does not require prior authorization. documented in this encounter Plan of Treatment Not on file documented as of this encounter Visit Diagnoses Not on filedocumented in this encounter Care Teams Informatics Physician Relationship Specialty Start Date End Date Marck Brody DO [address] [place] [address] PCP - General 02/08/10 10/12/21 documented as of this encounter
--- OUTSIDE RECORDS SUMMARY | 2023-12-08 20:04 | XMS_ITS | Encounter Summary ---
Author Organization [facility] [place] [address] Care Team Providers Care News Technical Director Name Role Phone Marck Brody DO Primary Care Provider Reason for Visit * Reason Comments On Treatment Visit HBO #5 Encounter Details Date Type Department Care Team (Latest Contact Info) Description 10/27/2019 6:57 AM EDT - 10/27/2019 11:59 PM EDT Hospital En[facility] [place] [phone] Osteoradionecrosis of jaw Discharge Disposition: Home Social [...] Sign Reading Time Taken Comments Blood Pressure 118/70 10/27/2019 9:27 AM EDT Pulse 70 10/27/2019 9:27 AM EDT Temperature 36.2 ??C (97.2 ??F) 10/27/2019 7:23 AM ED T Respiratory Rate 16 10/27/2019 7:23 AM EDT Oxygen Saturation - - Inhaled [...] Progress Notes * Lucie Quigley RN - 10/27/2019 7:32 AM EDT INTERVAL HISTORY: Patient denies any discomfort, changes, issues, complaints. Arrived ambulatory with steady gait. Neurological Status: A+O Respiratory Status:easy respirations Visual Change: Patient reports that she has noticed difficulty reading things on the TV, reports that she did experience visual changes with HBOT 5 years ago. Headache: denies Cough: occasional cough during HBOT, patient reports chronic cough related to secretions. Cold symptoms: denies Ear Discomfort/Issues: Denies c/o. Patient reports that she did apply mineral oil to ears over the weekend to soften wax. Chest Pain/Palpatations: denies Wound/Dressing: N/A Pain Level: 0 (0-10 scale) * If greater than 5, document interventions. 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 100% cotton clothing in place. Patient checked for non-approved chamber items. Ears checked. No redness noted. Ear wax obstructing view of tympanic membranes. Patient assessed and met criteria to proceed with hyperbaric treatment. Safety checklist completed with patient. Grounding strap applied and grounding verified, patient placed in chamber, communications checked. Tamia Catalan RN / Laura Quigley RN administered the treatment and monitored the patient. HYPERBARIC TREATMENT: Number - 5 Planned number of treatments - 30 Compression Rate: 1.3 - 1.5 psi/min Decompression Rate: 2.5 psi/min TROY - 2.4 Start Compression Reach Treatment Pressure - TROY Air Break Start Air Break Completed Start Decompression Treatment Completed 0727 0745 0830 0840 0915 0924 Sechrist Chamber # 1 Encouraged patient to [...] HBOT as planned. Next treatment scheduled for 10/28/19. documented in this encounter Plan of Treatment Not on file documented as of this encounter Visit Diagnoses Diagnosis Osteoradionecrosis of jaw Other specified disease of the jaws documented in this encounter Care Teams News Technical Director Relationship Specialty Start Date End Date Marck Brody DO [address] [place] [address] PCP - General 02/08/10 10/12/21 documented as of this encounter
--- OUTSIDE RECORDS SUMMARY | 2023-12-08 20:04 | XMS_ITS | Encounter Summary ---
Author Organization [facility] [place] [address] Care Team Providers Care Sustain Engineer Name Role Phone Marck Brody DO Primary Care Provider Reason for Visit * Reason Comments On Treatment Visit HBO #11 Encounter Details Date Type Department Care Team (Latest Contact Info) Description 11/04/2019 6:54 AM EDT - 11/04/2019 11:59 PM EDT Hospital [facility] [place] [phone] Osteoradionecrosis of jaw Discharge Disposition: Home Social [...] Sign Reading Time Taken Comments Blood Pressure 108/71 11/04/2019 9:15 AM EDT Pulse 55 11/04/2019 9:15 AM EDT Temperature 36.3 ??C (97.3 ??F) 11/04/2019 7:10 AM ED T Respiratory Rate 16 11/04/2019 7:10 AM EDT Oxygen Saturation - - [...] Progress Notes * Lucie Quigley RN - 11/04/2019 7:23 AM EDT INTERVAL HISTORY: Patient denies any discomfort, changes, issues, complaints. Arrived ambulatory with steady gait. Neurological Status: A+O Respiratory Status: easy respirations Visual Change: Reports having to use adjustable lens eyeglasses (from previous HBOT in 2014) for both distance and reading. Family provide transportation to & from treatments. 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 100% cotton clothing in place. Patient checked for non-approved chamber items. Tympanic membranes checked. No redness or perforation noted. View of both TMs largely obstructed by wax. Patient assessed and met criteria to proceed with hyperbaric treatment. Safety checklist completed with patient. Grounding strap applied and grounding verified, patient placed in chamber, communications checked. Tamia Catalan RN / Laura Quigley RN administered the treatment and monitored the patient. HYPERBARIC TREATMENT: Number - 11 Planned number of treatments - 30 Compression Rate: 1.3 psi/min Decompression Rate: 2.5 psi/min TROY - 2.4 Start Compression Reach Treatment Pressure - TROY Air Break Start Air Break Completed Start Decompression Treatment Completed 0713 0733 0818 0828 0903 0912 Sechrist Chamber # 1 Encouraged patient to [...] Practice Guidelines for Hyperbaric Oxygen Therapy through [facility]. No interventions required today. Patient alert and oriented. Ambulating with steady gait. Patient assessed and found appropriate to leave the Hyperbaric area at the conclusion of today???s session. Continue HBOT as planned. Next treatment scheduled for 11/05/19. documented in this encounter Plan of Treatment Not on file documented as of this encounter Visit Diagnoses Diagnosis Osteoradionecrosis of jaw Other specified disease of the jaws documented in this encounter Care Teams Sustain Engineer Relationship Specialty Start Date End Date Marck Brody DO [address] [place] [address] PCP - General 02/08/10 10/12/21 documented as of this encounter
--- OUTSIDE RECORDS SUMMARY | 2023-12-08 20:04 | XMS_ITS | Encounter Summary ---
Author Organization [facility] [place] [address] Care Team Providers Care Product Transfer Pumper Name Role Phone Marck Brody DO Primary Care Provider [phone] Encounter Details Date Type Department Care Team (Late st Contact Info) Description 03/25/2018 Orders [place] [address] Hermelindo Kearney PA [facility] [place] [address] Social History Tobacco Use Types Packs/Day Years [...] on filedocumented in this encounter Care Teams Product Transfer Pumper Relationship Specialty Start Date End Date Marck Brody DO [address] [place], [place] [id number] PCP - General 02/08/10 10/12/21 documented as of this encounter
--- OUTSIDE RECORDS SUMMARY | 2023-12-08 20:04 | XMS_ITS | Encounter Summary ---
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 SAFETY INFORMATION for your HYPERBARIC OXYGEN TREATMENTS To keep you safe during your treatments we require you to cooperate with us in maintaining a safe environment. It is important to follow these rules. Do not bring anything into the hyperbaric chamber. Because the chamber is pressurized with 100% oxygen, we do not allow items to be taken inside. Thisincludes, but is not limited to, lighters, matches, any device that may create heat, fire or hudsno, hand warmers, nylons, wigs, hair pieces, petroleum jelly, ointments, hearing aids, watches, jewellery, synthetic clothing, hard contact lenses, ear buds, cell phones, computers or tablets. No electronics or battery operated devices. Wear only the cotton hospital gown that we provide; nothing else - no underwear or socks. Use only the cotton linens we provide. Cosmetics and hair products - Do not wear any makeup, lipstick or lip balm, hair spray, hair oil orrelaxers. Nail citizen of [place] - should be at least 12 hours old, do not apply nail citizen of [place] or gels less than 12 hours before your hyperbaric oxygen treatment. Lotions, creams, oils, and deodorant - do not apply these products for 12 hours prior to your HBOT.If you need to use them, you can apply them after your treatment. Eyeglasses - we ask that you do not wear eyeglasses into the chamber. If you cannot see the TV without your glasses, you may be allowed to wear them if we can determine that they do not have any titanium in them. Books, magazines, newspapers, writing implements and paper products are not allowed in the chamber. If you???re not sure, ask! CLEARING YOUR EARS DURING HYPERBARIC OXYGEN TREATMENTS Ear problems are the most common side effect of Hyperbaric Oxygen Treatments. These are usually a minor annoyance but may become serious. The symptoms range from mild discomfort (a feeling of fullness or pressure) in one or both ears to signifcant pain. Sounds may be muffled or you may not be able to hear as well. As the pressure in the chamber increases at the start of your hyperbaric oxygen treatment the air filled space in the middle ear gets smaller. As this space gets smaller the ear drum is pulled inward, causing it to stretch. This stretching causes the discomfort or pain. When the ear drum is stretched it is not able to vibrate normally and sounds are muffled or hearing is decreased. If the pressure is not equalized damage to the ear drum may occur. The Eustachian tube goes from the back of the throat to the middle ear and allows air to enter the middle ear. This releases the pressure build up and stretching of the ear drum. There are several simple things you can do to equalize the pressure in the middle ear. This is known as ???clearing your ears?? or ???popping your ears?? . Swallowing is the easiest technique. Taking a sip of water may help to swallow effectively and easily. Yawning - a big yawn can open your Eustachian tube(s). Pinch your nose and swallow while still pinching your nose closed. It may help to have a small amount of water in your mouth to swallow. Pinch your nose, close your mouth and gently blow thru your nose. Move jaw side to side. Turn your head as far to the side as you can, try to touch your chin to your shoulder and swallow or yawn while your head is turned. You should work to equalize the pressure in your ears as soon as you notice a feeling of fullness in your ears or feel pressure in them. Do it early and often. If it is not working and the pressure is building up, let the staff know. They can stop the compression so you have more time to clear yourears, and help you use the different techniques. Let the staff know immediately if you are having pain in your ear(s). If you are unable to equalizethe pressure in your ear(s) we may ask you to see an ear doctor to determine if ear tubes would be helpful. documented in this encounter Progress Notes * Cuba Mcdonald Jr., MD - 10/08/2019 1:00 PM EDT Section of Hyperbaric Medicine Hyperbaric Oxygen Therapy Consultation HPI: Theresa Hollis was seen today at the request of Dr. Ng for a hyperbaric medicine consult. Theresa Hollis is a 49 y.o. 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 She was treated with partial glossectomy, chemotherapy, and 66 Gy of external beam radiation therapy. She is well known to the service since she had tooth extractions from the jaw in 2014 and received 20 HBO treatments beforehand and 10 afterwards. She did well after the extractions. The sites healed and the biopsy from the extractions showed granulation tissue, suggesting the HBO was promoting healing in the area. She then went on to develop a pathologic fracture of the left mandible in 2015, which developed a callus and is stable. Now, she has had continued bone loss in the jaw. Dr. Ng would like to debride the area and assess whether implants on the right could be used to support a denture that goes across the jaw. She was referred to determine if additional HBO would be useful in her case. She has had no procedures or developed new conditions that would increase her risk from HBO treatment (no implants, seizure disorder, thoracic surgery). Patient Active Problem List Diagnosis ??? Depressive disorder ??? 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 ??? 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 ??? Periodontal disease ??? DIFFICULT AIRWAY 05/06/2014 - see airway note in anesthesia record ??? Radiation injury Has dry mouth/xerostomia, retraction of gums ??? 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 History of tongue cancer ??? Hypothyroidism (acquired) NDE=672 in 06/25. Started on synthroid 25mcg po [...] nodes involved (1 at level 5), (-) DANE, PNI, LVI C. adjuvant concurrent cisplatin (100mg/m2 q3wks - 3 total doses) plus radiation (66Gy total) started 11/26 - 01/07/07, complicated by mucositis, dysphagia requiring PEG tube, severe oral pain; excellent functional recovery D. Hyperbaric O2 therapy for dental extractions 04/2014 D. Atraumatic L mandibular fracture 12/2015 despite hyperbaric O2 treatment; managed conservatively Current/Recent Doxorubicin Treatment: No History of Bleomycin treatment: No Disulfiram Use: No Current/Recent [place] Treatment: No Sulfamylon use: No Pneumothorax: No Implanted Pacemaker or Defibrillator: No Other Implants: No History of Spontaneous Pneumothorax: No History of Seizure Disorder: No Emphysema with CO2 retention: No History of Thoracic Surgery: No History of Surgery for Otosclerosis: No History of Congenital Spherocytosis: Bleeding, bruising, ? Hx of anemia No History of Optic Neuritis: No History of Sinus Surgery: No History of Lung Disease: No Congestive Heart Failure or Cardiac Compromise (EF<40%): No PHYSICAL EXAM: MOUTH: No obvious areas of exposed bone. Assessment/Plan: 49 yo woman with radiation injury/osteoradionecrosis of jaw. She had HBO in the past which seemed to be helpful with her extractions, but she has subsequently gone on to develop a pathologic fracture and additional bone loss. The goal of treatment is to avoid a mandibular resectionand the question is whether HBO could help with that. Radiation therapy often causes destruction of small blood vessels and fibrosis in irradiated tissues, leading to a relatively hypoxic and hypocellular tissue. Hyperbaric oxygen has been shown to promote angiogenesis into previously irradiated tissues. Lio demonstrated enhanced vascularity and cellularity in irradiated tissues after hyperbaric therapy by comparing histologic specimens from patients pre- and post- hyperbaric therapy ([facility], 1983). Lio also demonstrated serial improvement in transcutaneous oxygen measurements in patients receiving hyperbaric oxygen therapy--indicating increased vascularity. Studies in animals suggest that hyperbaric oxygen reduces fibrosis in irradiated areas (Stewart MorganHyperEstuardo 1998). Also, recent studies show a mobilizationof stem cells from the bone marrow with hyperbaric oxygen therapy ([employer] StemCells 2006). All these mechanisms are likely involved in the response to hyperbaric oxygen in radiation injury. The use of hyperbaric oxygen for the prevention of osteoradionecrosis and for treating radiation proctitis has been demonstrated in randomized trials (Lio et al. J Am [employer]thel Assoc, 1985, Paul et al., IntJRadiatOncolBiolPhys, 2008). Mady et al. (Cancer 2001) reviewed the outcomes for 411 patients who received hyperbaric oxygen treatment for 6 forms of radionecrosis. A positive outcome from hyperbaric treatment occurred in 94% of patients with osteoradionecrosis of the jaw (n=43), 76% of patients with cutaneous radionecrosis that caused open wounds (n =58), 82% of patients with laryngeal radionecrosis (n =27), 89% of patients with radiation cystitis (n =44), 63% of patients with gastrointestinal radionecrosis (n =73), and 100% of patients who were treated in conjunction with oral surgery in a previously irradiated jaw (n =166). This case is unique in that she has already had 30 hyperbaric treatments 5 years ago and the question is whether additional treatments would be helpful. Our experience with repeat hyperbaric treatments is limited, but we have seen recurrence of radiation cystitis that responded to repeat treatment and have had a patient with exposed bone from osteoradionecrosis that required 60 treatments to cover the bone. In this case since there is a strong desire to avoid mandibular resection and to salvagethe existing jaw, the use of 20 treatments pre and 10 post the intervention may be prudent. Recommendations: Hyperbaric treatments pre and post mandibular intervention. Also, if antibiotic therapy is planned for potential osteomyelitis best to do that in conjunction with the hyperbaric treatments. Hyperbaric Treatment Orders Theresa Hollis Indication(s) for Hyperbaric Oxygen Therapy: Osteoradionecrosis Prior to initial HBO treatment : Consent Obtained [ ] Date: will be obtained at first treatment. Chest X-ray Obtained Yes [ ] No [x] If ???No?? explain: Had had imaging and previous treatment. Hyperbaric Treatment Orders (Check all that apply) [x] 1. Tympanic membranes are to be viewed prior to every treatment and PRN as indicated by signs or symptoms of barotrauma. Notify hyperbaric physician of signs or symptoms of barotrauma. [x] 2. Obtain tympanogram prior to first hyperbaric treatment and print results. [x] 3. Obtain vital signs prior to each treatment and record. - If systolic blood pressure is < 100 mmHg, provide patient with fluids by mouth and reassess in 15 minutes. If still <100 mmHg notify hyperbaric physician. - If systolic BP is >180 mmHg or diastolic blood pressure is > 120 mmHg, notify hyperbaric physician. - If temperature is 1000 F (37.70 C) or greater, notify hyperbaric physician. [n/a] 4. For all patients with Diabetes, follow HBO Diabetes Protocol. [x] 5. If patient exhibits signs or symptoms of sinusitis, shortness of breath, respiratory or cardiac compromise, nausea, vomiting or diarrhea hold treatment and notify hyperbaric physician. Hyperbaric Oxygen Therapy Orders Pressure: 2.4 TROY Air break: [x] 10 minutes mid-way through treatment [ ] Other Length of treatment: [x] 90 minutes [ ] Other Compression rate: [x] 2.0 psi/min. [ ] Other Decompression rate: [x] 2.5 psi/mis [ ] Other Frequency of treatments: [x] once a day [ ] Other Number of treatments: [x] 20 prior to mandibular/dental procedure, 10 following procedure (120 billing units) [ ] 30 prior to dental procedure, 10 following procedure (160 billing units) [ ] 40 treatments then re-evaluate for continuation, change or termination of therapy (160 billing units) [ ] Other Informed Consent: Had full discussion of risks and benefits of hyperbaric oxygen therapy in this setting including, but not limited to, oxygen toxicity, seizures, pneumothorax, visual changes, and the promotion of the growth of cataracts. Discussed theoretical risk of promotion of cancer growth if tumor present. 10 minutes of this 15 minute visit was spent discussing the risks and benefits of hyperbaric oxygentherapy. The patient was taken to the hyperbaric room to see the chamber and ask questions about the treatments. documented in this encounter Plan of Treatment Not on file documented as of this encounter Visit Diagnoses Diagnosis Osteoradionecrosis of jaw Other specified disease of the jaws Pathological fracture of mandible with routine healing documented in this encounter Care Teams Regulatory Affairs Analyst Relationship Specialty Start Date End Date Marck Brody DO [address] [place] [address] PCP - General 02/08/10 10/12/21 documented as of this encounter
--- OUTSIDE RECORDS SUMMARY | 2023-12-08 20:04 | XMS_ITS | Encounter Summary ---
Author Organization [facility] [place] [address] Care Team Providers Care Motorcycle Sales Associate Name Role Phone Marck Brody DO Primary Care Provider Encounter Details Date Type Department Care Team (Late st Contact Info) Description 10/20/2019 Orders Only [place] [address] Allegra Ndiaye RN Carotid artery calcification, unspecified laterality Social History Tobacco Use Types Packs/Day Years [...] as of this encounter Visit Diagnoses Diagnosis Carotid artery calcification, unspecified laterality documented in this encounter Care Teams Motorcycle Sales Associate Relationship Specialty Start Date End Date Marck Brody DO [address] [place] [address] PCP - General 02/08/10 10/12/21 documented as of this encounter
--- OUTSIDE RECORDS SUMMARY | 2023-12-08 20:04 | XMS_ITS | Encounter Summary ---
[place] [address] Care Team Providers Care Music Industry Internship Name Role Phone Marck Brody DO Primary Care Provider Encounter Details Date Type Department Care Team (Late st Contact Info) Description 11/06/2019 Telephone Maxill[place] [address] Laura Centeno Social History Tobacco Use Types [...] * Telephone Encounter - Laura Centeno - 11/06/2019 9:20 AM EDT [facility] is calling to make you aware of a scheduled appointment on 12/08/19. Please [phone] to confirm the appointment. documented in this encounter Plan of Treatment Not on file documented as of this encounter Visit Diagnoses Not on filedocumented in this encounter Care Teams Music Industry Internship Relationship Specialty Start Date End Date Marck Brody DO [address] [place] [address] PCP - General 02/08/10 10/12/21 documented as of this encounter
--- OUTSIDE RECORDS SUMMARY | 2023-12-08 20:04 | XMS_ITS | Encounter Summary ---
Author Organization [facility], [facility] [place] [address] Care Team Providers Care Corn Press Operator Name Role Phone Marck Brody DO Primary Care Provider [phone] Reason for Visit * Reason Comments On Treatment Visit HBOT Encounter Details Date Type Department Care Team (Latest Contact Info) Description 10/29/2019 7:00 AM EDT - 10/29/2019 11:59 PM EDT Hospital [facility] [place] [place] [phone] Osteoradionecrosis of jaw Discharge Disposition: Home Social [...] Sign Reading Time Taken Comments Blood Pressure 129/69 10/29/2019 9:30 AM EDT Pulse 60 10/29/2019 9:30 AM EDT Temperature 36.3 ??C (97.3 ??F) 10/29/2019 7:17 AM ED T Respiratory Rate 16 10/29/2019 7:17 AM EDT Oxygen Saturation - - Inhaled [...] Progress Notes * Huma Lowe RN - 10/29/2019 7:42 AM EDT INTERVAL HISTORY: Patient denies any discomfort, changes, issues, complaints. Alert and oriented, VSS. Patient arrived to treatment area and transferred to [facility] independently. Neurological Status:intact Respiratory Status:WNL Visual Change: none Headache: none Cough:none Cold symptoms:none Ear Discomfort/Issues: Patient experiencing slight popping on/off but no pain or pressure Chest Pain/Palpatations: denies Wound/Dressing:jesse Other: Pre Treatment Glucose: N/A Intervention for hypoglycemia if necessary: Repeat Blood Glucose (prior to HBOT): Pain Level: 0 (0-10 scale) * If [...] monitored the patient. HYPERBARIC TREATMENT: Number - 7 Planned number of treatments - 30 (20 prior to dental procedure, 10 after) Compression Rate: 1.3 psi/min Decompression Rate: 2.5 psi/min TROY - 2.4 Start Compression Reach Treatment Pressure - TROY Air Break Start Air Break Completed Start Decompression Treatment Completed [id number] Sechrist Chamber # 1 Encouraged patient to [...] Practice Guidelines for Hyperbaric Oxygen Therapy through [facility]. No interventions required today. Post treatment glucose: N/A Patient alert and oriented. Ambulating with steady gait. Patient assessed and found appropriate to leave the Hyperbaric area at the conclusion of today???s session. Continue HBOT as planned. Next treatment scheduled for 10/30/2019. documented in this encounter Plan of Treatment Not on file documented as of this encounter Visit Diagnoses Diagnosis Osteoradionecrosis of jaw Other specified disease of the jaws documented in this encounter Care Teams Corn Press Operator Relationship Specialty Start Date End Date Marck Brody DO [address] [place] [address] PCP - General 02/08/10 10/12/21 documented as of this encounter
--- OUTSIDE RECORDS SUMMARY | 2023-12-08 20:04 | XMS_ITS | Encounter Summary ---
Author Organization [facility] [place] [address] Care Team Providers Care Studio Operation Engineer Name Role Phone Marck Brody DO Primary Care Provider Encounter Details Date Type Department Care Team (Late st Contact Info) Description 10/01/2019 Orders [place] [phone] Octavia Abreu RN Osteonecrosis of mandible (Primary Dx) Social History Tobacco Use Types [...] Primary Aseptic necrosis of other bone site documented in this encounter Care Teams Studio Operation Engineer Relationship Specialty Start Date End Date Marck Brody DO [address] [place] [address] PCP - General 02/08/10 10/12/21 documented as of this encounter
--- OUTSIDE RECORDS SUMMARY | 2023-12-08 20:04 | XMS_ITS | Encounter Summary ---
Author Organization [facility] [place] [address] Care Team Providers Care Division Director Name Role Phone Marck Brody DO Primary Care Provider Reason for Visit * Reason Comments On Treatment Visit HBOT Encounter Details Date Type Department Care Team (Latest Contact Info) Description 11/05/2019 6:56 AM EDT - 11/05/2019 11:59 PM EDT Hospital [facility] [place] [phone] Osteoradionecrosis of jaw Discharge Disposition: Home Social [...] Sign Reading Time Taken Comments Blood Pressure 121/76 11/05/2019 9:25 AM EDT Pulse 66 11/05/2019 9:25 AM EDT Temperature 36.4 ??C (97.5 ??F) 11/05/2019 7:10 AM ED T Respiratory Rate 16 11/05/2019 7:10 AM EDT Oxygen Saturation - - [...] Progress Notes * Huma Lowe RN - 11/05/2019 8:13 AM EDT INTERVAL HISTORY: Patient denies any discomfort, changes. Alert and oriented, VSS. Patient arrived to treatment area and transferred to [facility] independently. Neurological Status: intact Respiratory Status:WNL Visual Change: none Headache: none Cough:none Cold symptoms:none Ear Discomfort/Issues: Occasional popping/crackling sensation in between treatments, no pain or pressure noted Chest Pain/Palpatations: denies Wound/Dressing:none Other: Pre Treatment Glucose: N/A Intervention for [...] monitored the patient. HYPERBARIC TREATMENT: Number - 12 Planned number of treatments - 30 (20 prior to dental procedure, 10 after). Compression Rate: 1.3 psi/min Decompression Rate: 2.5 psi/min TROY - 2.4 Start Compression Reach Treatment Pressure - TROY Air Break Start Air Break Completed Start Decompression Treatment Completed 0712 0748 [id number] Sechrist Chamber # 1 Encouraged patient to [...] Practice Guidelines for Hyperbaric Oxygen Therapy through [facility]. No interventions required today. Post treatment glucose: N/A Patient alert and oriented. Ambulating with steady gait. Patient assessed and found appropriate to leave the Hyperbaric area at the conclusion of today???s session. Continue HBOT as planned. Next treatment scheduled for 11/06/19. documented in this encounter Plan of Treatment Not on file documented as of this encounter Visit Diagnoses Diagnosis Osteoradionecrosis of jaw Other specified disease of the jaws documented in this encounter Care Teams Division Director Relationship Specialty Start Date End Date Marck Brody DO [address] [place] [address] PCP - General 02/08/10 10/12/21 documented as of this encounter
--- OUTSIDE RECORDS SUMMARY | 2023-12-08 20:04 | XMS_ITS | Encounter Summary ---
Author Organization [facility] [place] [address] Care Team Providers Care Hse Coordinator Name Role Phone Marck Brody DO Primary Care Provider [phone] Encounter Details Date Type Department Care Team (Latest Contact Info) Description 10/13/2019 12:30 PM EDT TH Visit (TeleHealth) [place] [address] Roberth Little MD [facility] [place] [address] Osteonecrosis of mandible; H/O tongue cancer; Dental [...] Progress Notes * Roberth Little MD - 10/13/2019 12:30 PM EDT [facility] [place] Theresa Hollis is a 49 y.o. female followed for: Primary site: Left lateral tongue Stage: [id number] Surgery(ies): 10/31/06 - Hemiglossectomy, left neck dissection 1-5, skin graft, allograft Radiation: TREATMENT STARTED: 11/28/06 TREATMENT COMPLETED: 01/14/07 TREATMENT: The total maximum dose was 6600 cGy in 33 fractions. Volume reductions were instituted at 5400 cGy in 30 fractions &??6000 cGy in 30 fractions. Chemotherapy: Concurrent cisplatin?? More recently is being seen by Dr. Ng for ORN of the mandible with planned HBOT, extractions,and debridement. SUBJECTIVE She requested this visit as she had a number of questions regarding her extractions/debridement andpossible future implants as well as the HBOT. REVIEW OF IMAGES/OTHER STUDIES Recent outside CT face reviewed with ORN of the mandible on the left noted. DECISION MAKING/PLAN I was able to answer most of her questions regarding HBOT and timing of extractions/debridement. She is very concerned that she may not be able to get implants and we discussed this. Unfortunately, given the progressive decay of her teeth, retaining her existing dentition does not seem to be a viable option. This is obviously a very difficult decision for her and I did provide emotional support and made it clear that I would be happy to talk anytime. She was appreciative of the call and knows to contact me through phone or [facility] if she has any further questions or concerns. Patient verbally consents to this telephone visit and understands that this visit may be billed, similar to a clinic office visit. I provided care to the patient today via telephone call, 15 minutes telephone visit was spent in discussion with patient on above. I appreciate the opportunity to be involved in Ms. Hollis's care. ROBERTH LITTLE MD 10/13/2019 documented in this encounter Plan of Treatment Not on file documented as of this encounter Visit Diagnoses Diagnosis Osteonecrosis of mandible Aseptic necrosis of other bone site H/O tongue cancer Personal history of malignant neoplasm of tongue Dental decay Unspecified dental caries documented in this encounter Care Teams Hse Coordinator Relationship Specialty Start Date End Date Marck Brody DO [address] [place] [address] [address] [place] [address] PCP - General 02/08/10 10/12/21 documented as of this encounter
--- OUTSIDE RECORDS SUMMARY | 2023-12-08 20:04 | XMS_ITS | Encounter Summary ---
Author Organization [facility] [place] [address] Care Team Providers Care Chuck Boner Name Role Phone Marck Brody DO Primary Care Provider Encounter Details Date Type Department Care Team (Late st Contact Info) Description 08/05/2018 1:00 PM EDT Office Visit [place] [phone] Keyur Ng MD [facility] [address] Pathological fracture of mandible with delayed healing, subsequent encounter; Osteoradionecrosis of jaw Social History Tobacco Use [...] Progress Notes * Keyur Ng MD - 08/05/2018 1:00 PM EDT Images from the original note were not included. Oral & Maxillofacial Surgery Lesion Follow Up Theresaarmen Wyattesteban returns for follow up of ORN and persistent, pathologic fracture of left mandible,with failing dental bridge. Interval History: Theresa was questioned with regards to new lumps or bumps,intra or extraoral drainage, difficulty chewing or swallowing, oral bleeding, dysarthria or altered oral sensation from priorexamination. Weight and appetite were evaluated and pertinent interval changes include: ?? Prior visit with Dr. Paula today ?? 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 Review of systems noted above were otherwise negative. Clinical Pertinent findings include: ?? #21/22 present with 1-2+ mobility ?? Trismus ?? Xerostomia ?? No discernable interfragmentary mobility with left body of mandible ?? Bridge Spanning from and is failing and loose Pertinent imaging studies: New panorex taken today Fibrous appearing union of left body of mandible with ORN Impression: History of ORN left mandible and stable appearing left fibrous union of left mandibularbody with failing dental bridge and teeth #21/ Recommendations and Plan: Reviewed a few options: 1. Resection with free fibula flap with insertion of implants and fixed implant supported prosthesis. This caries risk given her level of fibrosis. Also she has no pain from the area of ORN. 2. Alternative with extraction of anterior mandibular teeth with bone reduction and insertion of implants distal to area of osteonecrosis for an implant supported prosthesis. Will refer to Dr. Powers, Customer Service Trainer for evaluation of prosthetic options especially as it pertains to option #2. Keyur Ng MD, DMD, FACS documented in this encounter Plan of Treatment Not on file documented as of this encounter Visit Diagnoses Diagnosis Pathological fracture of mandible with delayed healing, subsequent encounter Osteoradionecrosis of jaw Other specified disease of the jaws documented in this encounter Care Teams Chuck Boner Relationship Specialty Start Date End Date Marck Brody DO [address] [place] [address] PCP - General 02/08/10 10/12/21 documented as of this encounter
--- OUTSIDE RECORDS SUMMARY | 2023-12-08 20:04 | XMS_ITS | Encounter Summary ---
Author Organization [facility] [place] [address] Care Team Providers Care Crate Liner Name Role Phone Marck Brody DO Primary Care Provider Encounter Details Date Type Department Care Team (Late st Contact Info) Description 12/20/2018 Orders Only [place] [phone] Octavia Abreu RN Tongue cancer (Primary Dx) Social History Tobacco Use [...] of this encounter Visit Diagnoses Diagnosis Tongue cancer- Primary Malignant neoplasm of tongue, unspecified site documented in this encounter Care Teams Crate Liner Relationship Specialty Start Date End Date Marck Brody DO [address] [place] [address] PCP - General 02/08/10 10/12/21 documented as of this encounter
--- OUTSIDE RECORDS SUMMARY | 2023-12-08 20:04 | XMS_ITS | Encounter Summary ---
Author Organization [facility] [place] [address] Care Team Providers Care Barbed Wire Machine Operator Name Role Phone Marck Brody DO Primary Care Provider [phone] Encounter Details Date Type Department Care Team (Late st Contact Info) Description 10/31/2019 Notes Only [facility] [place] [address] Cuba Mcdonald Jr., MD [facility] [place] [address] Social History Tobacco Use Types Packs/Day Years [...] Notes * Cuba Mcdonald Jr., MD - 10/31/2019 11:59 PM EDT Has completed 9 of an initial treatments. Progress has been reviewed. At this point it is too earlyto tell if she is having any benefit. Complications: Had to go slow during compression due to difficulty with pressure change. Visual changes being tracked. Follow up plan: Continue hyperbaric treatments. documented in this encounter Plan of Treatment Not on file documented as of this encounter Visit Diagnoses Not on filedocumented in this encounter Care Teams Barbed Wire Machine Operator Relationship Specialty Start Date End Date Marck Brody DO [address] [place] [address] PCP - General 02/08/10 10/12/21 documented as of this encounter
--- OUTSIDE RECORDS SUMMARY | 2023-12-08 20:04 | XMS_ITS | Encounter Summary ---
Author Organization [facility] [place] [address] Care Team Providers Care Investigator Fraud Name Role Phone Marck Brody DO Primary Care Provider Reason for Visit * Reason Comments On Treatment Visit HBOT #14 Encounter Details Date Type Department Care Team (Latest Contact Info) Description 11/07/2019 6:54 AM EDT - 11/07/2019 11:59 PM EDT Hospital Encounter [facility] [place] [phone] Osteoradionecrosis of jaw Discharge Disposition: Home Social [...] Sign Reading Time Taken Comments Blood Pressure 119/68 11/07/2019 9:17 AM EDT Pulse 71 11/07/2019 9:17 AM EDT Temperature 36.3 ??C (97.3 ??F) 11/07/2019 7:08 AM ED T Respiratory Rate 16 11/07/2019 7:08 AM EDT Oxygen Saturation - - [...] Progress Notes * Candice Catalan RN - 11/07/2019 7:23 AM EDT INTERVAL HISTORY: Arrives ambulatory and transfers independently. Patient denies any new discomfort, changes, issues,complaints. Neurological Status: Alert, oriented x4 Respiratory Status: Eupneic Visual Change: Unchanged Headache: None Cough: None observed Cold symptoms: Denies Ear [...] monitored the patient. HYPERBARIC TREATMENT: Number - 14 Planned number of treatments - 30; 20 prior to procedure Compression Rate: 1.2 - 1.8 psi/min Decompression Rate: 2.5 psi/min TROY - 2.4 Start Compression Reach Treatment Pressure - TROY Air Break Start Air Break Completed Start Decompression Treatment Completed 0711 0736 0821 0831 0906 0915 Sechrist Chamber # 1 Encouraged patient to adjust position during air break. Clinical Practice Guideline for Hyperbaric Oxygen Therapy Prevent and manage for potential problems related to 1.Barotrauma, 2.oxygen toxicity, and 3.Pneumothorax. 4. Situational Problems Assessed: ALL (Barotrauma, Oxygen Toxicity, Pneumothorax, Situational) Problems Present: None, (Barotrauma, Oxygen Toxicity, Pneumothorax, Situational) Theresa required brief pause in compression x2 to equalize ear pressure at ~1.2- 1.6 TROY. Compressed at 1.2-1.3 psi/min, until reaching 2.0 TROY when compression rate increased to 1.8 without incident. Interventions: Per Clinical Practice Guidelines for Hyperbaric Oxygen Therapy through [facility]. -As above, no additional issues during treatment. Patient alert and oriented. Ambulating with steady gait. Patient assessed and found appropriate to leave the Hyperbaric area at the conclusion of today???s session. Continue HBOT as planned. Next treatment scheduled for 11/10/2019. documented in this encounter Plan of Treatment Not on file documented as of this encounter Visit Diagnoses Diagnosis Osteoradionecrosis of jaw Other specified disease of the jaws documented in this encounter Care Teams Investigator Fraud Relationship Specialty Start Date End Date Marck Brody DO [address] [place] [address] PCP - General 02/08/10 10/12/21 documented as of this encounter
--- OUTSIDE RECORDS SUMMARY | 2023-12-08 20:04 | XMS_ITS | Encounter Summary ---
Author Organization [facility] [place] [address] Care Team Providers Care Patternmaker Metal Name Role Phone Marck Brody DO Primary Care Provider Encounter Details Date Type Department Care Team (Late st Contact Info) Description 09/30/2019 11:30 AM EDT Office [place] [phone] Roberth Lee MD [facility] [place] [address] H/O tongue cancer; Dental decay Social History [...] Progress Notes * Roberth Lee MD - 09/30/2019 11:30 AM EDT Accompanied patient with visit to Dr. Ng No charge visit. documented in this encounter Plan of Treatment Not on file documented as of this encounter Visit Diagnoses Diagnosis H/O tongue cancer Personal history of malignant neoplasm of tongue Dental decay Unspecified dental caries documented in this encounter Care Teams Patternmaker Metal Relationship Specialty Start Date End Date Marck Brody DO [address] [place] [address] PCP - General 02/08/10 10/12/21 documented as of this encounter
--- OUTSIDE RECORDS SUMMARY | 2023-12-08 20:04 | XMS_ITS | Encounter Summary ---
Author Organization [facility] [place] [address] Care Team Providers Care Systems Engineering Manager Name Role Phone Marck Brody DO Primary Care Provider Encounter Details Date Type Department Care Team (Late st Contact Info) Description 10/13/2019 Telephone [place] [address] Keyur Ng MD [facility] [place] [address] Social History Tobacco Use Types Packs/Day Years [...] encounter Miscellaneous Notes * Telephone Encounter - Keyur Ng MD - 10/13/2019 3:04 PM EDT Telephone conversation had with Theresa. I reviewed my findings and radiology's findings with her latest CT scan. I recommend she have hyperbaric oxygen as discussed with Dr. Mcdonald. After her 20th dive we will then move forward with debridement of her necrotic bone from her osteoradionecrosis and then extractedteeth that are involved with the osteoradionecrosis area. She will have to heal and observe this area before considering having any significant dental reconstruction. She is aware that a denture may not be able to be fabricated immediately. When she has scheduled her hyperbaric oxygen treatment she will let us know so we can schedule her surgery so it times nicely with her 20th dive. After she has surgery then she will have 10 more dives. And if her healing goes well and there is no evidence of complications then she can consider moving forward with her linen worker in order tohave a lower denture fabricated, if possible. We may consider dental implants in the future but this all depends on how she heals and response to the above-mentioned treatment. Keyur Ng DMD, MD documented in this encounter Plan of Treatment Not on file documented as of this encounter Visit Diagnoses Not on filedocumented in this encounter Care Teams Systems Engineering Manager Relationship Specialty Start Date End Date Marck Brody DO [address] [place] [address] PCP - General 02/08/10 10/12/21 documented as of this encounter
--- OUTSIDE RECORDS SUMMARY | 2023-12-08 20:04 | XMS_ITS | Encounter Summary ---
Author Organization [facility] [place] [address] Care Team Providers Care Pill Packer Name Role Phone Marck Brody DO Primary Care Provider Encounter Details Date Type Department Care Team (Late st Contact Info) Description 10/16/2019 Orders Only [place] [address] Allegra Ndiaye, RN Social History Tobacco Use [...] on filedocumented in this encounter Care Teams Pill Packer Relationship Specialty Start Date End Date Marck Brody DO [address] [place], [place] [address] PCP - General 02/08/10 10/12/21 documented as of this encounter
--- OUTSIDE RECORDS SUMMARY | 2023-12-08 20:04 | XMS_ITS | Encounter Summary ---
Author Organization [place] [address] Care Team Providers Care Unit Nurse Name Role Phone Marck Brody DO Primary Care Provider [phone] Encounter Details Date Type Department Care Team (Late st Contact Info) Description 10/28/2019 Notes Only [facility] [place] [address] Cuba Mcdonald Jr., MD [facility] [place] [address] Social History Tobacco Use Types Packs/Day Years [...] Notes * Cuba Mcdonald Jr., MD - 10/28/2019 7:26 AM EDT Documentation of Informed Consent to Participate in Research Study [id number]: Multicenter Registry for Hyperbaric Oxygen Therapy: Long-term follow up Patient was offered the opportunity to participate in study protocol [id number], long-term follow up. Study protocol reviewed with [...] informed consent form to read and review. she was given adequatetime to review all information, and to ask questions and review concerns, all of which were answered to her satisfaction. Patient verbalized understanding of this protocol and consented for participation in study [id number], long-term follow up. Consent form was signed and dated by patient and medical technical writer. Written informed consent was obtained prior to any study procedures being done. A copy of the signed consent form was given to patient. Original, signed informed consent document given to clinical research coordinator for scanning into [employer]. documented in this encounter Plan of Treatment Not on file documented as of this encounter Visit Diagnoses Not on filedocumented in this encounter Care Teams Unit Nurse Relationship Specialty Start Date End Date Marck Brody DO [address] [place] [address] PCP - General 02/08/10 10/12/21 documented as of this encounter
--- OUTSIDE RECORDS SUMMARY | 2023-12-08 20:04 | XMS_ITS | Encounter Summary ---
Author Organization [facility] [place] [address] Care Team Providers Care Pie Baker Name Role Phone Marck Brody DO Primary Care Provider [phone] Reason for Visit * Reason Onset Date Comments Other 07/23/2018 difficulty with dentition Encounter Details Date Type Department Care Team (Late st Contact Info) Description 07/23/2018 Tele[place] [address] Neo Sherman, RN Other (difficulty with dentition) Social History Tobacco Use Types Packs/Day Years [...] Miscellaneous Notes * Telephone Encounter - Neo Sherman RN - 07/23/2018 4:22 PM EDT Nursing Phone Note Theresa returned call to ENT after message was left earlier in morning at her home. She would like Dr. [place] to be aware that her [place] Bridge has failed since her last visit to ENT, and she would like to discuss surgery with her providers. She said the teeth and jaw bone the bridge had been cemented to are no longer stable enough to support it, and she has to make frequent visits to the dentist to re-superglue it. She does not want to engage with the credit office manager if she would be having surgery. She also stated she wants to be able to keep working, and eating, and the loss of her teeth would prevent those activities. Dr. Lee's litigation legal secretary was able to move up her next appointment in ENT, per earlier conversationwith ENT triage nurse. documented in this encounter Plan of Treatment Not on file documented as of this encounter Visit Diagnoses Not on filedocumented in this encounter Care Teams Pie Baker Relationship Specialty Start Date End Date Marck Brody DO [address] [place] [address] PCP - General 02/08/10 10/12/21 documented as of this encounter
--- OUTSIDE RECORDS SUMMARY | 2023-12-08 20:04 | XMS_ITS | Encounter Summary ---
Author Organization [facility] [place] [address] Care Team Providers Care Cleaning Professional Name Role Phone Marck Brody DO Primary Care Provider [phone] Reason for Visit * Reason Comments On Treatment Visit HBOT #10 Encounter Details Date Type Department Care Team (Latest Contact Info) Description 11/03/2019 7:02 AM EDT - 11/03/2019 11:59 PM EDT Hospital Encounter [facility] [place] [phone] Osteoradionecrosis of jaw Discharge Disposition: Home Social [...] Sign Reading Time Taken Comments Blood Pressure 104/64 11/03/2019 9:21 AM EDT Pulse 58 11/03/2019 9:21 AM EDT Temperature 36.3 ??C (97.3 ??F) 11/03/2019 7:15 AM ED T Respiratory Rate 16 11/03/2019 7:15 AM EDT Oxygen Saturation - - [...] Progress Notes * Candice Catalan RN - 11/03/2019 7:29 AM EDT INTERVAL HISTORY: Arrives ambulatory and transfers independently. Patient endorses change in vision, has tried different glasses over weekend. Neurological Status: Alert, oriented x4 Respiratory Status: Eupneic Visual Change: As noted. Headache: None Cough: Rare dry cough Cold symptoms: Denies Ear Discomfort/Issues: Denies Chest Pain/Palpatations: None Wound/Dressing: N/A Pain Level: 0 (0-10 scale) * If greater than 5, document interventions. Education: Reinforced temporary nature of vision changes. Patient recalls experience from 5 years ago. Theresa Hollis received hyperbaric oxygen treatment today [...] monitored the patient. HYPERBARIC TREATMENT: Number - 10 Planned number of treatments - 30 total, 20 prior to procedure Compression Rate: 1.3 psi/min Decompression Rate: 2.5 psi/min TROY - 2.4 Start Compression Reach Treatment Pressure - TROY Air Break Start Air Break Completed Start Decompression Treatment Completed 0718 0740 0825 0835 0910 0919 Sechrist Chamber [...] Practice Guidelines for Hyperbaric Oxygen Therapy through [facility]. No interventions required today. Patient alert and oriented. Ambulating with steady gait. Patient assessed and found appropriate to leave the Hyperbaric area at the conclusion of today???s session. Continue HBOT as planned. Next treatment scheduled for 11/04/2019. documented in this encounter Plan of Treatment Not on file documented as of this encounter Visit Diagnoses Diagnosis Osteoradionecrosis of jaw Other specified disease of the jaws documented in this encounter Care Teams Cleaning Professional Relationship Specialty Start Date End Date Marck Brody DO [address] [place] [address] PCP - General 02/08/10 10/12/21 documented as of this encounter
--- OUTSIDE RECORDS SUMMARY | 2023-12-08 20:04 | XMS_ITS | Encounter Summary ---
Author Organization [facility]ly [facility] [place] [address] Care Team Providers Care Process Safety Management Engineer Name Role Phone Marck Brody DO Primary Care Provider [phone] Encounter Details Date Type Department Care Team (Latest Contact Info) Description 03/26/2019 8:20 AM EST Office [place] [phone] Roberth Little MD [facility] [place] [address] H/O tongue cancer; Dysphagia, oropharyngeal phase; Osteonecrosis of mandible; Pathological fracture of mandible, sequela Social History Tobacco Use Types Packs/Day Years [...] - - Weight 43.1 kg (95 lb) 03/26/2019 8:35 AM EST Height 157.5 cm (5' 2) 03/26/2019 8:35 AM EST Body Mass Index 17.38 03/26/2019 8:35 AM EST documented in this encounter Progress Notes * Roberth iLttle MD - 03/26/2019 8:20 AM EST [facility] NECK TUMOR CLINIC FOLLOW UP NOTE Theresa Hollis is a 48 y.o. female followed for: Primary site: Left lateral tongue Stage: [id number] Surgery(ies): 10/31/06 - Hemiglossectomy, left neck dissection 1-5, skin graft, allograft Radiation: TREATMENT STARTED: 11/28/06 TREATMENT COMPLETED: 01/14/07 TREATMENT: The total maximum dose was 6600 cGy in 33 fractions. Volume reductions were instituted at 5400 cGy in 30 fractions &??6000 cGy in 30 fractions. Chemotherapy: Concurrent cisplatin?? New issues since last visit: She was able to get her bridge and this has helped She did develop acute pain in the left mandible that lasted 2 weeks recently but pain has abated She is still reporting increase mucous production and intermittent laryngospasm PROBLEM LIST Patient Active Problem List Diagnosis [...] to Visit Medication Sig Dispense Refill ??? cevimeline (EVOXAC) 30 mg Capsule Take 1 capsule by mouth 3 times daily. 90 capsule 12 ??? levothyroxine (SYNTHROID) 112 mcg Tablet daily. ??? SYMBICORT 80-4.5 mcg/actuation HFA Aerosol Inhaler ??? dexamethasone (DECADRON) 0.1 % Drops 1 drop every 3 hours. ??? triamcinolone acetonide (KENALOG) 0.1 % Paste Place onto teeth 3 times daily. 5 g 0 ??? lidocaine (XYLOCAINE) 2 % Solution Take 5 mLs by mouth as needed for Pain. 100 mL 1 ??? ibuprofen (ADVIL;MOTRIN) 100 mg/5 mL Suspension Take by mouth every 4 hours as needed for Fever. ??? EPINEPHrine 0.3 mg/0.3 mL Auto-Injector Inject [...] as needed for Fever. Reported on 02/24/2016 No current facility-administered medications on file prior [...] EXAMINATION Wt Readings from Last 3 Encounters: 03/26/19 43.1 kg (95 lb) 08/05/18 43.1 kg (95 lb) 07/04/18 45.4 kg (100 lb) General: Well developed, no distress Head/face: Normocephalic, atraumatic Oral cavity: S/p left partial glossectomy with no recurrence. No exposed bone. Bridge intact. Mandible is stable. Oropharynx: Normal soft palate, tonsils, lateral pharyngeal [...] the [employer] and uploaded to the [employer]. Findings Nasal cavity normal Nasopharynx normal Oropharynx Fibrosis along the tongue base and lateral wall on the left Larynx Gross normal movement and appearance Hypopharynx Retained food in the right pyriform sinus that passed after several swallows of water. This suggests possible stricture. REVIEW OF IMAGES None ASSESSMENT/RECOMMENDATIONS No evidence of recurrence ORN is stable She may have an esophageal stricture. Has not have BaS yet and I will order one for her local hospital. Also gave her information on alkalol and mucinex for excessive mucous production. Follow up in 3 months or sooner depending on BaS results (may need dilation). I appreciate the opportunity to be involved in Ms. Hollis's care. ROBERTH LITTLE MD 03/26/2019 documented in this encounter Plan of Treatment Not on file documented as of this encounter Visit Diagnoses Diagnosis H/O tongue cancer Personal history of malignant neoplasm of tongue Dysphagia, oropharyngeal phase Osteonecrosis of mandible Aseptic necrosis of other bone site Pathological fracture of mandible, sequela documented in this encounter Care Teams Process Safety Management Engineer Relationship Specialty Start Date End Date Marck Brody DO [address] [place] [address] [address] [facility] [address] [place] [address] PCP - General 02/08/10 10/12/21 documented as of this encounter
--- OUTSIDE RECORDS SUMMARY | 2023-12-08 20:04 | XMS_ITS | Encounter Summary ---
Author Organization [facility] [place] [address] Care Team Providers Care Data Warehouse Manager Name Role Phone Marck Brody DO Primary Care Provider Encounter Details Date Type Department Care Team (Latest Contact Info) Description 10/13/2019 Orders Only [place] [address] Keyur Ng MD [facility] [address] [place] [address] Osteoradionecrosis of jaw Social History Tobacco Use [...] jaws documented in this encounter Care Teams Data Warehouse Manager Relationship Specialty Start Date End Date Marck Brody DO [address] [place] [address] PCP - General 02/08/10 10/12/21 documented as of this encounter
--- OUTSIDE RECORDS SUMMARY | 2023-12-08 20:04 | XMS_ITS | Encounter Summary ---
Author Organization [facility] [address] [facility] [address] Care Team Providers Care Reaming Machine Tender Name Role Phone Marck Brody DO Primary Care Provider Encounter Details Date Type Department Care Team (Late st Contact Info) Description 10/08/2019 Telephone [place] [phone] Theresa Garay RN Social History Tobacco Use [...] Telephone Encounter - Theresa Garay RN - 10/08/2019 3:41 PM EDT Returned patient's call to nurse triage line. She called looking for next steps based on CT scan ofhead done on 10/03/19. I sent a message to Dr. Ng that the images were available for review. Patient made aware that we would be in touch soon. documented in this encounter Plan of Treatment Not on file documented as of this encounter Visit Diagnoses Not on filedocumented in this encounter Care Teams Reaming Machine Tender Relationship Specialty Start Date End Date Marck Brody DO [address] [place], [place] [address]Y [facility] [address] [place] [address] PCP - General 02/08/10 10/12/21 documented as of this encounter
--- OUTSIDE RECORDS SUMMARY | 2023-12-08 20:04 | XMS_ITS | Encounter Summary ---
Author Organization [facility] [place] [address] Care Team Providers Care Watchmaking Teacher Name Role Phone Macrk Brody DO Primary Care Provider Reason for Visit * Reason Comments On Treatment Visit HBOT #13 Encounter Details Date Type Department Care Team (Latest Contact Info) Description 11/06/2019 7:01 AM EDT - 11/06/2019 11:59 PM EDT Hospital Encounter [facility] [place] [phone] Osteoradionecrosis of jaw Discharge Disposition: Home Social [...] Sign Reading Time Taken Comments Blood Pressure 118/74 11/06/2019 9:23 AM EDT Pulse 66 11/06/2019 9:23 AM EDT Temperature 36.3 ??C (97.3 ??F) 11/06/2019 7:10 AM ED T Respiratory Rate 16 11/06/2019 7:10 AM EDT Oxygen Saturation - - [...] Progress Notes * Candice Catalan RN - 11/06/2019 7:30 AM EDT INTERVAL HISTORY: Arrives ambulatory and transfers independently. Patient denies any new discomfort, changes, issues,complaints. Neurological Status: Alert, oriented x4 Respiratory Status: Respirations easy Visual Change: Continued issues with distance vision. Headache: Denies Cough: None observed Cold symptoms: Denies Ear Discomfort/Issues: Denies Chest Pain/Palpatations: Denies Wound/Dressing: N/A Pain Level: 0 (0-10 scale) * If greater than 5, document interventions. Education: Reinforced upcoming vision screening w/ HBOT #15, questionnaire w/ HBOT #20 (prior to procedure). Theresa Hollis received hyperbaric oxygen treatment today [...] monitored the patient. HYPERBARIC TREATMENT: Number - 13 Planned number of treatments - 30, 20 prior to procedure Compression Rate: 1.3 psi/min Decompression Rate: 2.5 psi/min TROY - 2.4 Start Compression Reach Treatment Pressure - TROY Air Break Start Air Break Completed Start Decompression Treatment Completed 0917 0742 0827 0837 0912 0921 Sechrist Chamber # 1 Encouraged patient to adjust position during air break. Clinical Practice Guideline for Hyperbaric Oxygen Therapy Prevent and manage for potential problems related to 1.Barotrauma, 2.oxygen toxicity, and 3.Pneumothorax. 4. Situational Problems Assessed: ALL (Barotrauma, Oxygen Toxicity, Pneumothorax, Situational) Problems Present: Patient experienced difficulty equalizing pressure left ear during compression between ~1.15-1.4 TROY. (Barotrauma, Oxygen Toxicity, Pneumothorax, Situational) Interventions: Compression held and decreased slightly to allow patient time to equalize ear pressure left ear. Per Clinical Practice Guidelines for Hyperbaric Oxygen Therapy through [facility]. Patient successful in equalizing ear pressures and tolerated rest of treatment without issue. Patient alert and oriented. Ambulating with steady gait. Patient assessed and found appropriate to leave the Hyperbaric area at the conclusion of today???s session. Continue HBOT as planned. Next treatment scheduled for 11/07/2019. documented in this encounter Plan of Treatment Not on file documented as of this encounter Visit Diagnoses Diagnosis Osteoradionecrosis of jaw Other specified disease of the jaws documented in this encounter Care Teams Watchmaking Teacher Relationship Specialty Start Date End Date Marck Brody DO [address] [place] [address] PCP - General 02/08/10 10/12/21 documented as of this encounter
--- OUTSIDE RECORDS SUMMARY | 2023-12-08 20:04 | XMS_ITS | Encounter Summary ---
Author Organization [facility] [place] [address] Care Team Providers Care Ware Finisher Name Role Phone Marck Brody DO Primary Care Provider [phone] Reason for Visit * Reason Onset Date Comments Other 07/23/2018 Encounter Details Date Type Department Care Team (Late st Contact Info) Description 07/23/2018 Telephone [place] [phone] Andrew Vela Other Social History Tobacco Use Types Packs/Day Years [...] encounter Miscellaneous Notes * Telephone Encounter - Andrew Vela - 07/23/2018 8:04 AM EDT Caller and relationship to patient (if other than patient): Theresa Best time to reach caller: Any; ok to leave a message Message or Reason for Call: Theresa would like to speak to Dr. Lee, regarding her teeth and jawproblems. This situation is becoming more urgent. Theresa also left a voice mail on the Triage line. Appt Needed and Reason: Provider: Dr. Lee documented in this encounter Plan of Treatment Not on file documented as of this encounter Visit Diagnoses Not on filedocumented in this encounter Care Teams Ware Finisher Relationship Specialty Start Date End Date Marck Brody DO [address] [place] [address] PCP - General 02/08/10 10/12/21 documented as of this encounter
--- OUTSIDE RECORDS SUMMARY | 2023-12-08 20:04 | XMS_ITS | Encounter Summary ---
Author Organization [facility] [place] [address] Care Team Providers Care M48/M60 Tank Driver Name Role Phone Marck Brody DO Primary Care Provider [phone] Encounter Details Date Type Department Care Team (Late st Contact Info) Description 05/30/2019 Telephone [place] [phone] Joyce Young Social History Tobacco Use Types Packs/Day Years [...] on filedocumented in this encounter Care Teams M48/M60 Tank Driver Relationship Specialty Start Date End Date Marck Brody DO [address] [place], [place] [address] PCP - General 02/08/10 10/12/21 documented as of this encounter
--- OUTSIDE RECORDS SUMMARY | 2023-12-08 20:04 | XMS_ITS | Encounter Summary ---
Author Organization [facility] [place] [address] Care Team Providers Care Manager News Name Role Phone Marck Brody DO Primary Care Provider [phone] Encounter Details Date Type Department Care Team (Late st Contact Info) Description 05/30/2019 Telephone [place] [phone] Joyce Young Social History Tobacco Use Types [...] filedocumented in this encounter Care Teams Manager News Relationship Specialty Start Date End Date Marck Brody DO [address] [place], [place] [address] PCP - General 02/08/10 10/12/21 documented as of this encounter
--- OUTSIDE RECORDS SUMMARY | 2023-12-08 20:04 | XMS_ITS | Encounter Summary ---
[place] [address] Care Team Providers Care Biomedical Equipment Specialist Name Role Phone Marck Brody DO Primary Care Provider Encounter Details Date Type Department Care Team (Late st Contact Info) Description 07/23/2018 Telephone [place] [phone] Juanita Walters RN Social History Tobacco Use [...] on filedocumented in this encounter Care Teams Biomedical Equipment Specialist Relationship Specialty Start Date End Date Marck Brody DO [address] [place], [place] [address] PCP - General 02/08/10 10/12/21 documented as of this encounter
--- OUTSIDE RECORDS SUMMARY | 2023-12-08 20:04 | XMS_ITS | Encounter Summary ---
[place] [address] Care Team Providers Care Dock Loader Name Role Phone Marck Brody DO Primary Care Provider [phone] Encounter Details Date Type Department Care Team (Late st Contact Info) Description 10/20/2019 Telephone [place] [phone] Terri Nance Social History Tobacco Use Types [...] * Telephone Encounter - Terri Nance - 10/20/2019 12:34 PM EDT Ruchi, Patient is scheduled to have surgery on 11/17/2019 and the packet has been mailed to the verified address on file. Follow up appointment is as follows: no follow up indicated COVID Testing: No test request noted Thank you!! documented in this encounter Plan of Treatment Not on file documented as of this encounter Visit Diagnoses Not on filedocumented in this encounter Care Teams Dock Loader Relationship Specialty Start Date End Date Marck Brody DO [address] [place] [address] PCP - General 02/08/10 10/12/21 documented as of this encounter
--- OUTSIDE RECORDS SUMMARY | 2023-12-08 20:04 | XMS_ITS | Encounter Summary ---
Author Organization [facility] [place] [address] Care Team Providers Care Wrecker Operator Name Role Phone Marck Brody DO Primary Care Provider [phone] Encounter Details Date Type Department Care Team (Latest Contact Info) Description 08/25/2019 1:00 PM EDT TH Visit (TeleHealth) [place] [phone] Roberth Little MD [facility] [place] [address] H/O tongue cancer; Osteonecrosis of mandible; Dental decay Social History Tobacco Use Types [...] Progress Notes * Roberth Little MD - 08/25/2019 1:00 PM EDT [facility] OT[facility] TELEPHONE VISIT Theresa Hollis is a 49 y.o. female followed for: Primary site: Left lateral tongue Stage: [id number] Surgery(ies): 10/31/06 - Hemiglossectomy, left neck dissection 1-5, skin graft, allograft Radiation: TREATMENT STARTED: 11/28/06 TREATMENT COMPLETED: 01/14/07 TREATMENT: The total maximum dose was 6600 cGy in 33 fractions. Volume reductions were instituted at 5400 cGy in 30 fractions &??6000 cGy in 30 fractions. Chemotherapy: Concurrent cisplatin?? SUBJECTIVE She has been having persistent issues with dental decay, particularly mandible. Currently has a bridge and this has been causing problems for her. 2 more extractions are recommended. Getting dental care is very painful due to the tenderness of her mouth and difficulty opening. She is wondering if she should have all of her teeth extracted. Would like to have implants if she goes this route but apparently was under the impression that this may not be possible. She also has determined that the Evoxac that she was taking for dry mouth has been causing her bloating and fatigue symptoms. Has gone off the Evoxac and feels much better. Also has not noticed a significant difference in dry mouth symptoms. She does have a history of ORN mandible but has no symptoms of exposed bone, swelling or drainage or pain. REVIEW OF IMAGES/OTHER STUDIES No recent imaging DECISION MAKING/PLAN We discussed her dental care issues and next steps. I understand her frustration with her dental issues and her interest in having the teeth extracted.I think the next step would be a repeat consultation with Dr. Ng to review extraction optionsand possible options for implant. She has HBOT in the past and may need more. The patient is agreeable with these recommendations and would like to proceed. Patient verbally consents to this telephone visit and understands that this visit may be billed, similar to a clinic office visit. I provided care to the patient today via telephone call, 25 minutes telephone visit was spent in discussion with patient on above. I appreciate the opportunity to be involved in Ms. Hollis's care. ROBERTH LITTLE MD 08/26/2019 documented in this encounter Plan of Treatment Not on file documented as of this encounter Visit Diagnoses Diagnosis H/O tongue cancer Personal history of malignant neoplasm of tongue Osteonecrosis of mandible Aseptic necrosis of other bone site Dental decay Unspecified dental caries documented in this encounter Care Teams Wrecker Operator Relationship Specialty Start Date End Date Marck Brody DO [address] [place] [address] PCP - General 02/08/10 10/12/21 documented as of this encounter
--- OUTSIDE RECORDS SUMMARY | 2023-12-08 20:04 | XMS_ITS | Encounter Summary ---
Author Organization [facility] Address [facility] [place] [address] Care Team Providers Care Sample Worker Name Role Phone Marck Brody DO Primary Care Provider Encounter Details Date Type Department Care Team (Late st Contact Info) Description 10/03/2019 3:40 PM EDT Ancillary Procedure Radiology Library at [facility] [place] [place] [phone] Marck Brody DO [address] [place], [place] [address] Social History Tobacco Use Types Packs/Day Years [...] FILM LIBRARY STORAGE ONLY CT HEAD Routine 10/03/2019 3:38 PM EDT documented in this encounter Results * Film Library- Storage Only CT Head (10/03/2019 3:38 PM EDT) Narrative [facility] - 10/03/2019 3:38 PM EDT This exam is auto-finalizing. It's purpose is for storage only. Marck Brody DO IMDonald FILM LIBRARY ORD ERABLES [place], [place] documented in this encounter Visit Diagnoses Not on filedocumented in this encounter Care Teams Sample Worker Relationship Specialty Start Date End Date Marck Brody DO [address] [place] [address] [address] [place] [address] PCP - General 02/08/10 10/12/21 documented as of this encounter
--- OUTSIDE RECORDS SUMMARY | 2023-12-08 20:04 | XMS_ITS | Encounter Summary ---
Author Organization [facility] [place] [address] Care Team Providers Care Draw Bench Operator Helper Name Role Phone Marck Brody DO Primary Care Provider [phone] Encounter Details Date Type Department Care Team (Late st Contact Info) Description 10/20/2019 Telephone [place]ill[place] [address] Keyur Ng MD [facility] [place] [address] Social History Tobacco Use Types Packs/Day Years [...] Telephone Encounter - Keyur Ng MD - 10/20/2019 9:51 AM EDTSummary: phone conservation regarding carotid ultrasound Spoke with patient regarding incidental finding regarding calcifications in her carotid based on the last CT. Radiologist had recommended here at [facility] to obtain a carotid duplex ultrasound. I called her to let her know that I would be ordering that. I would appreciate her primary care in helping with disposition based on this test. Of note she will finish her last hyperbaric oxygen treatment November 16 and I will try to get her scheduled for surgery around that time. Keyur Ng MD , DMD, FACS documented in this encounter Plan of Treatment Not on file documented as of this encounter Visit Diagnoses Not on filedocumented in this encounter Care Teams Draw Bench Operator Helper Relationship Specialty Start Date End Date Marck Brody DO [address] [place] [address] PCP - General 02/08/10 10/12/21 documented as of this encounter
--- OUTSIDE RECORDS SUMMARY | 2023-12-08 20:04 | XMS_ITS | Encounter Summary ---
[place] [address] Care Team Providers Care Slitter And Rewinder Machine Operator Name Role Phone Marck Brody DO Primary Care Provider [phone] Encounter Details Date Type Department Care Team (Late st Contact Info) Description 07/23/2018 Tele[place] [phone] Latoya Molina Social History Tobacco Use Types [...] * Telephone Encounter - Latoya Molina - 07/23/2018 1:37 PM EDT Left message of rescheduled appointments from 6.27.19 with FARRUKH to 5.30.19 with FARRUKH at 1020. Letter sent. documented in this encounter Plan of Treatment Not on file documented as of this encounter Visit Diagnoses Not on filedocumented in this encounter Care Teams Slitter And Rewinder Machine Operator Relationship Specialty Start Date End Date Marck Brody DO [address] [place] [address] PCP - General 02/08/10 10/12/21 documented as of this encounter
--- OUTSIDE RECORDS SUMMARY | 2023-12-08 20:04 | XMS_ITS | Encounter Summary ---
Author Organization [facility] [place] [address] Care Team Providers Care Payroll Benefits Administrator Name Role Phone Marck Brody DO Primary Care Provider [phone] Reason for Visit * Reason Comments On Treatment Visit HBOT #9 Encounter Details Date Type Department Care Team (Latest Contact Info) Description 10/31/2019 6:56 AM EDT - 10/31/2019 11:59 PM EDT [facility] [place] [id number] Osteoradionecrosis of jaw Discharge Disposition: Home Social [...] Sign Reading Time Taken Comments Blood Pressure 118/82 10/31/2019 9:30 AM EDT Pulse 62 10/31/2019 9:30 AM EDT Temperature 36.4 ??C (97.5 ??F) 10/31/2019 7:14 AM ED T Respiratory Rate 16 10/31/2019 9:30 AM EDT Oxygen Saturation - - Inhaled [...] Progress Notes * Jennifer Henderson RN - 10/31/2019 7:17 AM EDT INTERVAL HISTORY: Patient denies any discomfort, changes, issues, complaints. She arrived for treatment in good spirits. Neurological Status: WNL Respiratory Status: WNL Visual Change: beginning to notice Headache: None Cough: occasional dry cough Cold symptoms: None Ear Discomfort/Issues: denies Chest Pain/Palpatations: denies Wound/Dressing: None Pain Level: 0 (0-10 scale) * If greater than 5, document interventions. 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 100%cotton clothing in place. Patient checked for non-approved chamber items. Tympanic membranes checked. Both ear canals are blocked by wax. Patient assessed and met criteria to proceed with hyperbaric t reatment. Safety checklist completed with patient. Grounding strap applied and grounding verified, patient placed in chamber, communications checked. Jennifer Henderson RN / Laura Quigley RN administeredthe treatment and monitored the patient. HYPERBARIC TREATMENT: Number - 9 Planned number of treatments - 30 prior to dental procedure and 10 immediately after Compression Rate: 1.3 psi/min Decompression Rate: 2.5 psi/min TROY - 2.4 Start Compression Reach Treatment Pressure - TROY Air Break Start Air Break Completed Start Decompression Treatment Completed 0722 0746 0832 0842 0917 0927 Sechrist Chamber # [...] Guidelines for Hyperbaric Oxygen Therapy through [facility]. No interventions required today. Patient alert and oriented. Ambulating with steady gait. Patient assessed and found appropriate to leave the Hyperbaric area at the conclusion of today???s session. Continue HBOT as planned. Next treatment scheduled for 11/03/19. documented in this encounter Plan of Treatment Not on file documented as of this encounter Visit Diagnoses Diagnosis Osteoradionecrosis of jaw Other specified disease of the jaws documented in this encounter Care Teams Payroll Benefits Administrator Relationship Specialty Start Date End Date Marck Brody DO [address] [place] [address] [address] [place] [address] PCP - General 02/08/10 10/12/21 documented as of this encounter
--- OUTSIDE RECORDS SUMMARY | 2023-12-08 20:04 | XMS_ITS | Encounter Summary ---
Author Organization [facility] [place] [address] Care Team Providers Care Reading Coach Name Role Phone Marck Brody DO Primary Care Provider Reason for Visit * Reason Comments On Treatment Visit HBOT #8 Encounter Details Date Type Department Care Team (Latest Contact Info) Description 10/30/2019 6:54 AM EDT - 10/30/2019 11:59 PM EDT Hospital Encounter [facility] [place] [phone] Osteoradionecrosis of jaw Discharge Disposition: Home Social [...] Sign Reading Time Taken Comments Blood Pressure 117/73 10/30/2019 9:15 AM EDT Pulse 68 10/30/2019 9:15 AM EDT Temperature 36.4 ??C (97.5 ??F) 10/30/2019 7:15 AM ED T Respiratory Rate 16 10/30/2019 7:15 AM EDT Oxygen Saturation - - [...] Progress Notes * Jennifer Henderson RN - 10/30/2019 7:21 AM EDT INTERVAL HISTORY: Patient denies any discomfort, changes, issues, complaints. She arrived for treatment in good spirits. Neurological Status: unchanged, WNL Respiratory Status: denies any breathing difficulties Visual Change: She states that she has noticed a change in her vision. Eyes will be rechecked at 15th treatment. Headache: none Cough: none Cold symptoms: none Ear Discomfort/Issues: none Chest Pain/Palpatations: none Wound/Dressing: none Pain Level: 0 (0-10 scale) * If greater than 5, document interventions. 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 100%cotton clothing in place. Patient checked for non-approved chamber items. Tympanic membranes checked. Both ear canals were blocked with wax buildup, unable to view either TM. Patient assessed and met criteria to proceed with hyperbaric treatment. Safety checklist completed with patient. Grounding strap applied and grounding verified, patient placed in chamber, communications checked. Jennifer Henderson RN / Laura Quigley RN administered the treatment and monitored the patient. HYPERBARIC TREATMENT: Number - 8 Planned number of treatments - 20 prior to dental procedure and 10 immediately after Compression Rate: 1.3 psi/min Decompression Rate: 2.5 psi/min TROY - 2.4 Start Compression Reach Treatment Pressure - TROY Air Break Start Air Break Completed Start Decompression Treatment Completed 0715 0734 0819 0829 0905 0914 Sechrist Chamber # 1 Encouraged patient to [...] [facility]. No interventions required today. Patient alert and oriented. Ambulating with steady gait. Patient assessed and found appropriate to leave the Hyperbaric area at the conclusion of today???s session. Continue HBOT as planned. Next treatment scheduled for 10/31/19. documented in this encounter Plan of Treatment Not on file documented as of this encounter Visit Diagnoses Diagnosis Osteoradionecrosis of jaw Other specified disease of the jaws documented in this encounter Care Teams Reading Coach Relationship Specialty Start Date End Date Marck Brody DO [address] [place] [address] PCP - General 02/08/10 10/12/21 documented as of this encounter
--- OUTSIDE RECORDS SUMMARY | 2023-12-08 20:04 | XMS_ITS | Encounter Summary ---
Author Organization [facility] [place] [address] Care Team Providers Care Board Operator Name Role Phone Marck Brody DO Primary Care Provider [phone] Reason for Referral * Consultation (Routine) - Closed Specialty Diagnoses / Procedures Referred By Shirley cuevas Referred To Contact Gastroenterology Diagnoses Dysphagia, unspecified type Gabrielle Otriz MD [facility] [address] [place] [address] [facility] [address] [place] [id number] Referral ID Status Reason Start Date Expiration Date V isits Requested Visits Authorized [id number] Closed Consult, [facility] 05/13/2018 05/13/2019 1 1 Reason for Visit * Reason Comments Allergies Follow-up * Consultation (Routine) - Closed Specialty Diagnoses / Procedures Referred By Shirley cuevas Referred To Contact Allergy Diagnoses FOOD ALLERGY Procedures f/u pt of Marck Mason DO [address] [place] [address] Gabrielle Ortiz MD [facility] [address] [place] [address] Referral ID Status Reason Start Date Expiration Date V isits Requested Visits Authorized [id number] Closed Consult, Test & Treat Connection Center 04/25/2018 04/25/2019 1 1 Encounter Details Date Type Department Care Team (Late st Contact Info) Description 05/13/2018 11:00 AM EST [place] [address] Gabrielle Ortiz MD [facility] [address] [place] [address] Dysphagia, unspecified type; Gustatory rhinitis; Chronic mucus hypersecretion, respiratory Social History Tobacco Use Types Packs/Day Years [...] Sign Reading Time Taken Comments Blood Pressure 102/70 05/13/2018 10:47 AM EST Pulse 86 05/13/2018 10:47 AM EST Temperature - - Respiratory Rate - - Oxygen Saturation 100% 05/13/2018 10:47 AM EST Inhaled Oxygen Concentration - - Weight 45.8 kg (101 lb) 05/13/2018 10:47 AM EST Height 157.5 cm (5' 2) 05/13/2018 10:47 AM EST Body Mass Index 18.47 05/13/2018 10:47 AM EST documented in this encounter Patient Instructions * Patient Instructions* Gabrielle Ortiz MD - 05/13/2018 11:00 AM EST I don't think you are experiencing food allergy since you have been able to tolerate the problematic foods again. I think this is more of a nonspecific mucus production. - Continue chlorpheniramine 3mg prior to meals as needed to help dry up secretions. I reached out to heme/onc and they said this can be a side effect of radiation and they did not have any other treatment recommendations. - see gastroenterology for evaluation of reflux. Reflux can cause excessive mucus, and can also affect swallowing and lead to food sticking if there is inflammation in the esophagus Continue to follow up with your primary care doctor for your reactive airway symptoms. Return as needed if new concerns about allergies arise documented in this encounter Progress Notes * Gabrielle Ortiz MD - 05/13/2018 11:00 AM EST CC: follow up HPI: Theresa Hollis is a very pleasant 47 y.o. female with PMH tongue cancer s/p chemo/rad/resection, hypothyroidism presenting for follow up of mucus production with eating. Patient is here for follow-up. She was last seen on October 05, 2017. At that time she was reporting improvement in the mucus production with eating when taking chlorpheniramine. She was able to reintroduce many foods successfully and at that time I felt pretty confident that her symptoms were not dueto to food allergy and any positive testing we had in the past were false positives. I encouraged her to keep reintroducing foods. I also reached out to her oncologist, ENT, and rad onc physicians tosee if they had seen this side effect before from her treatments. Dr. 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 Since her last visit the patient reports that 2 weeks ago she ate a hotdog wrapped in puff pastry which she has had before without any problems and felt like she could not breathe. She states that her chest felt tight and wheezing and the wheezing was in her chest and not her throat. She took albuterol and Tums both of these helped with her symptoms. She continued to have more episodes like this without a food pattern and so her primary care doctor put her on Symbicort due to concern for reactive airway disease. She has been using albuterol prn and Symbicort twice a day for 3 days now. These have been helpful. Her PCP is following up her response to Symbicort in July. She does report that she has eaten more foods again without any problems and she took still takes the antihistamine before eating sometimes, but not all the time. She has not seen GI yet but we did discuss this possibility in the past in case her symptoms could be due to reflux with eating. ROS: per HPI, otherwise negative. Patient Active Problem List Diagnosis Code ??? Hypothyroidism (acquired) E03.9 ??? Tongue cancer C02.9 ??? Tinnitus H93.19 ??? History of tongue cancer Z85.810 ??? Radiation injury T66.XXXA ??? DIFFICULT AIRWAY T88.4XXA ??? Periodontal disease K05.6 Past Medical History: Diagnosis Date ??? Allergic rhinitis ??? Cancer of head, face, and neck ??? Hypothyroidism Outpatient Medications Marked as Taking for the 05/13/18 encounter (Office Visit) with Gabrielle Ortiz MD Medication Sig Dispense Refill ??? levothyroxine (SYNTHROID) 112 mcg Tablet daily. ??? SYMBICORT 80-4.5 mcg/actuation HFA Aerosol Inhaler ??? dexamethasone (DECADRON) 0.1 % Drops 1 drop every 3 hours. ??? dexamethasone 0.1 mg/mL Elixir Take 10 mLs by mouth 4 times daily for 14 days. 560 mL 0 ??? ibuprofen (ADVIL;MOTRIN) 100 mg/5 mL [...] as needed for Fever. Reported on 02/24/2016 PHYSICAL EXAM: BP 102/70 Pulse 86 Ht 157.5 cm (5' 2) Wt 45.8 kg (101 lb) SpO2 100% BMI 18.47 kg/m?? Gen: AAOx3, no acute distress HEENT: Tympanic membranes clear, no lesions, erythema, or drainage. Conjunctiva not injected. Nasalpassages show pink turbinates bilaterally. OP clear without erythema or cobblestoning. Partial tongue resection NECK: supple, no lymphadenopathy CVS: RRR, no m/r/g LUNGS: CTAB, no wheezing or rales ABD: soft, non-tender, non-distended SKIN: no rashes EXTREMITIES: warm and well-perfused, no edema ASSESSMENT/PLAN: 47 y.o. 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 There has been no common food pattern and ability to problematic tolerate foods with use of chlorpheniramine to dry up secretions demonstrates this is not a food allergy. S he has also noticed response with Tums and the possibility of reflux has not yet been evaluated. From the perspective of allergy, I don't think she is experiencing food allergy and this is more of a nonspecific mucus production, likely due to prior head/neck radiation. Since the concern for allergyhas been addressed, informed the patient she does not need to follow up in Allergy again unless newallergic concerns arise. It was a pleasure taking part in her care and I wished her the best. - Continue chlorpheniramine 3mg prior to meals as needed to help dry up secretions - see gastroenterology for evaluation of reflux Continue to follow up with primary care doctor for reactive airway symptoms. Return as needed if new concerns about allergies arise Gabrielle Ortiz MD documented in this encounter Plan of Treatment Scheduled Referrals Name Type Priority Associated Diagnoses Order Schedule Referral to Gastroenterology Outpatient Referral Routine Dysphagia, unspecified type Ordered: 05/13/2018 documented as of this encounter Visit Diagnoses Diagnosis Dysphagia, unspecified type Gustatory rhinitis Chronic rhinitis Chronic mucus hypersecretion, respiratory Other and unspecified diseases of upper respiratory tract documented in this encounter Care Teams Board Operator Relationship Specialty Start Date End Date Marck Brody DO [address] [place] [address] [address] [place] [address] PCP - General 02/08/10 10/12/21 documented as of this encounter
--- OUTSIDE RECORDS SUMMARY | 2023-12-08 20:04 | XMS_ITS | Encounter Summary ---
Author Organization [facility] [place] [address] Care Team Providers Care Computer Tester Name Role Phone Marck Brody DO Primary Care Provider Encounter Details Date Type Department Care Team (Late st Contact Info) Description 10/14/2019 Telephone [place] [address] Abril Vaca Social History Tobacco Use Types Packs/Day Years [...] encounter Miscellaneous Notes * Telephone Encounter - Abril Vaca - 10/16/2019 10:50 AM EDT CALLED [facility] TO CHECK STATUS OF AUTH. AUTH WAS APPROVED. AUTH # : [id number] SESSION LIMIT: 30 DATES: 10.14.19-01.14.20 DIAGNOSIS CODE(S): M27.2 CPT CODE(S): G0277 & 19560 INSURANCE: [facility] PHONE #: [phone] FAX #: [phone] SPOKE WITH: TINY WAGNER REF #: [id number] * Telephone Encounter - Abril Vaca - 10/14/2019 10:09 AM EDT RECEIVED EMAIL FROM YAMILETH MASTERSON REQUESTING IF PRIOR AUTHORIZATION IS NEEDED FOR HYPERBARIC TREATMENTS & IF AUTHORIZATION IS NOT NEEDED, WILL IT BE COVERED. DIAGNOSIS CODE(S): M27.2 CPT CODE(S): G0277 & 95933 INSURANCE: [facility] PHONE #: [phone] FAX #: [phone] PRIOR AUTH REQUIRED: YES SESSION LIMIT: 30 SPOKE WITH: DOLLY CALL REF #: [id number] documented in this encounter Plan of Treatment Not on file documented as of this encounter Visit Diagnoses Not on filedocumented in this encounter Care Teams Computer Tester Relationship Specialty Start Date End Date Marck Brody DO [address] [place] [address] [address] [place] [address] PCP - General 02/08/10 10/12/21 documented as of this encounter
--- OUTSIDE RECORDS SUMMARY | 2023-12-08 20:04 | XMS_ITS | Encounter Summary ---
Author Organization [facility] [place] [address] Care Team Providers Care Cfo Controller Name Role Phone Marck Brody DO Primary Care Provider [phone] Reason for Visit * Reason Comments On Treatment Visit HBOT Encounter Details Date Type Department Care Team (Latest Contact Info) Description 10/23/2019 7:01 AM EDT - 10/23/2019 11:59 PM EDT Hospital Encounter [facility] [place] [phone] Osteoradionecrosis of jaw Discharge Disposition: Home Social [...] Sign Reading Time Taken Comments Blood Pressure 123/85 10/23/2019 9:35 AM EDT Pulse 56 10/23/2019 9:35 AM EDT Temperature 36.3 ??C (97.3 ??F) 10/23/2019 7:17 AM ED T Respiratory Rate 18 10/23/2019 7:17 AM EDT Oxygen Saturation - - [...] Progress Notes * Huma Lowe RN - 10/23/2019 8:13 AM EDT INTERVAL HISTORY: Patient denies any discomfort, changes. Patient reports continued increase in existing condition oftinnitus. Alert and oriented, VSS. Patient arrived to treatment area and transferred to care [facility] at [facility] independently. Neurological Status: intact Respiratory Status: WNL Visual Change: none Headache: none Cough: none Cold symptoms: none Ear Discomfort/Issues: Tinnitus is both ears Chest Pain/Palpatations: denies Wound/Dressing:none Other: Pre Treatment Glucose: N/A Intervention for hypoglycemia if necessary: Repeat Blood Glucose (prior to HBOT): Pain Level: 2 (0-10 scale) * If [...] monitored the patient. HYPERBARIC TREATMENT: Number - 3 Planned number of treatments - 30 (20 prior to dental procedure, 10 after) Compression Rate: 1.5 psi/min Decompression Rate: 2.5 psi/min TROY - 2.4 Start Compression Reach Treatment Pressure - TROY Air Break Start Air Break Completed Start Decompression Treatment Completed 0723 0747 0832 0842 0917 0928 Sechrist Chamber # 1 Encouraged patient to [...] Practice Guidelines for Hyperbaric Oxygen Therapy through [facility]. No interventions required today. Post treatment glucose: N/A Patient alert and oriented. Ambulating with steady gait. Patient assessed and found appropriate to leave the Hyperbaric area at the conclusion of today???s session. Continue HBOT as planned. Next treatment scheduled for 10/24/2019. documented in this encounter Plan of Treatment Not on file documented as of this encounter Visit Diagnoses Diagnosis Osteoradionecrosis of jaw Other specified disease of the jaws documented in this encounter Care Teams Cfo Controller Relationship Specialty Start Date End Date Marck Brody DO [address] [place] [address] PCP - General 02/08/10 10/12/21 documented as of this encounter
--- OUTSIDE RECORDS SUMMARY | 2023-12-08 20:04 | XMS_ITS | Encounter Summary ---
Author Organization [facility] [address] Care Team Providers Care Mid Level Practitioner Name Role Phone Marck Brody DO Primary Care Provider [phone] Reason for Visit * Reason Comments Follow-up 1 year Encounter Details Date Type Department Care Team (Late st Contact Info) Description 05/13/2018 8:30 AM EST Office [place] [address] Hermelindo Kearney PA [facility] [place] [address] Tongue lesion; H/O tongue cancer Social History Tobacco Use [...] - Inhaled Oxygen Concentration - - Weight 42.6 kg (94 lb) 05/13/2018 8:20 AM EST Height 157.5 cm (5' 2) 05/13/2018 8:20 AM EST Body Mass Index 17.19 05/13/2018 8:20 AM EST documented in this encounter Progress Notes * Hermelindo Kearney PA - 05/13/2018 8:30 AM EST [facility] FOLLOW UP NOTE Theresa Hollis is a 47 y.o. female followed for: Left Lateral Tongue Cancer ? Primary site: Left lateral tongue Stage: [id number] Surgery(ies): 10/31/06 - Hemiglossectomy, left neck dissection [...] was identified in that area. She was last trialed on Dexamethasone Elixir for this, and returns today for follow up. New issues since last visit: Right tongue lesion improved after a couple of weeks of Dexamethasone use. Notes some occasional right tongue spasms with soft food intake; textured foods seem to improve this. Has obtained an invisoline dental guard, but has not started to use it. No dysphagia. No new numbness. No new trismus. No other pain in her oral cavity. No jaw pain. No other changes to her health. No other concerning symptoms PROBLEM LIST Patient Active Problem List Diagnosis [...] 3 times daily. 90 capsule 12 ??? Chlorpheniramine Maleate 12 mg Tablet Sustained Release Take 1 tablet by mouth every 12 hours. 60 tablet 11 ??? albuterol 90 mcg/actuation HFA Aerosol Inhaler Inhale 2 puffs into the lungs every 4 hours as needed for Wheezing. 1 Inhaler 1 ??? calcium carbonate (TUMS) 200 mg calcium (500 mg) Tablet, Chewable Take 2 tablets by mouth daily. ??? triamcinolone acetonide (KENALOG) 0.1 % Paste [...] up to1 dose. 1 each 1 ??? acetaminophen (TYLENOL) 160 mg/5 mL Elixir [...] - Height 157.5 cm (5' 2), weight 42.6 kg (94 lb). GENERAL - Well dressed and well [...] - Right lateral tongue bite injury area resolving; without surrounding erythema, non-tender to palpation; no associated induration noted. -??FOM on right soft; on the left with induration, stable, noted on prior exams. - 2cm trismus, stable. ?? - Hard palate without lesions. PHARYNX - [...] ASSESSMENT/RECOMMENDATIONS - No evidence of recurrence. - Bite injury area on right tongue appears to be resolving. - Dr Lee also examined the patient and felt that a couple of more weeks of Dexamethasone Elixir use would be helpful. He also emphasized her use of the invisoline dental guard to avoid further injury to that area due to the teeth orientation. - Discussed her returning in August for follow up. - The patient expressed understanding of these points and agreement with the plan, and all questions that were asked were answered to the patient's satisfaction. Plan: > Return to clinic in August to seee Dr. Lee. > Begin using dental guard. > Refill of Dexamethasone Elixir provided. > Patient should call if their symptoms worsen or fail to improve, if new concerning symptoms arise, or if they have any questions or concerns regarding their treatment. I appreciate the opportunity to be involved in Ms. Hollis's care. Hermelindo Kearney PA-C [place], [place] [address] Office 05/13/18 documented in this encounter Plan of Treatment Not on file documented as of this encounter Visit Diagnoses Diagnosis Tongue lesion Other specified conditions of the tongue H/O tongue cancer Personal history of malignant neoplasm of tongue documented in this encounter Care Teams Mid Level Practitioner Relationship Specialty Start Date End Date Marck Brody DO [address] [place] [address] PCP - General 02/08/10 10/12/21 documented as of this encounter
--- OUTSIDE RECORDS SUMMARY | 2023-12-08 20:05 | XMS_ITS | Encounter Summary ---
Author Organization Formerly [facility] [place] [address] Care Team Providers Care Tax Consultant Name Role Phone Marck Brody DO Primary Care Provider Reason for Visit * Reason Onset Date Comments Medication Problem 03/18/2018 Clarification of lidocaine solution ordered on 03/18/18 Encounter Details Date Type Department Care Team (Late st Contact Info) Description 03/18/2018 Telephone [place] [phone] Val Quezada RN Medication Problem (Clarification of lidocaine solution ordered on 03/18/18) Social History Tobacco Use Types Packs/Day Years [...] Miscellaneous Notes * Telephone Encounter - Val Quezada RN - 03/18/2018 4:26 PM EST A fax was received from patient's pharmacy, [facility] in [place], [place] requesting clarification of lidocaine solution. I called [phone]) and spoke to the pharmacistTheresa, who wanted toclarify the frequency of the mucosal solution. I spoke to CALLY Arevalo (prescriber) who stated a maximum of 4 times a day/every 6 hours; I relayed info to Theresa at [facility]. Read back done. documented in this encounter Plan of Treatment Not on file documented as of this encounter Visit Diagnoses Not on filedocumented in this encounter Care Teams Tax Consultant Relationship Specialty Start Date End Date Marck Brody DO [address] [place] [address] [address] [place] [address] PCP - General 02/08/10 10/12/21 documented as of this encounter
--- OUTSIDE RECORDS SUMMARY | 2023-12-08 20:05 | XMS_ITS | Encounter Summary ---
Author Organization Formerly [facility] [place] [address] Care Team Providers Care Cardiology Technologist Name Role Phone Marck Brody DO Primary Care Provider [phone] Encounter Details Date Type Department Care Team (Latest Contact Info) Description 02/06/2017 9:27 AM EST - 02/06/2017 11:59 PM [facility] Hospital Encounter [place] [phone] [place], [place] Bilateral carotid bruits; History of tongue cancer Discharge Disposition: Home Social History [...] Sig Dispensed Refills Start Date End Date ipratropium (ATROVENT) 0.03 % [place], Non-Aerosol 10/10/2016 05/14/2017 cevimeline (EVOXAC) 30 mg CapsuleIndications:Ton boby cancer Take 1 capsule by mouth 3 times daily. 90 capsule 12 11/17/2016 12/11/2017 levothyroxine (SYNTHROID) 112 mcg TabletIndications:Hypo thyroidism (acquired) Take 1 tablet by mouth daily. 30 tablet 12 02/24/2016 03/22/2017 calcium carbonate (TUMS) 200 mg calcium (500 mg) Tablet, Chewable Take 2 tablets by mouth daily. 03/22/2020 acetaminophen (TYLENOL) 160 mg/5 mL Elixir Take 15 mg/kg/dose by mouth every 4 hours as needed for Fever. Reported on 02/24/2016 10/08/2019 documented as of this encounter Plan of Treatment Not on file documented as of this encounter Procedures Procedure Name Priority Date/Time Associated Diagnosis Comments CAROTID DUPLEX, BILATERAL Routine 02/06/2017 10:00 AM EST Bilateral carotid bruits History of tongue cancer documented in this encounter Results * Cerebrovascular Duplex, Bilateral (02/06/2017 10:00 AM EST) VB Text Report Department: Vascular Surgery Lab Patient: [id number] (THERESA HENLEY) CPT: 22638 ICD10: Z85.810;R09.89 Referring Physician: SHAHRIAR MISHRA ?? Indications: ??Bilateral carotid bruit, history of head and neck cancer treated with radiation therapy ICD10 Diagnosis Code: Z85.810, R09.89 Findings: ICA Proximal, Right ? PSV (cm/s): 78 ? EDV (cm/s): 33 ? ICA/CCA: 1.0 ? Plaque Structure: Echogenic ? Plaque Surface: Irregular ? %Stenosis: <15% ICA Distal, Right ? PSV (cm/s): 74 ? EDV (cm/s): 32 ? ICA/CCA: 0.9 CCA Distal, Right ? PSV (cm/s): 78 ? EDV (cm/s): 34 ? %Stenosis: Minimal CCA Proximal, Right ? PSV (cm/s): 113 ? EDV (cm/s): 27 External Carotid Artery, Right ? PSV (cm/s): 90 ? EDV (cm/s): 18 ? %Stenosis: Minimal Vertebral, Right ? PSV (cm/s): 52 ? EDV (cm/s): 16 ? Direction of Flow: Antegrade ICA Proximal, Left ? PSV (cm/s): 102 ? EDV (cm/s): 45 ? ICA/CCA: 1.1 ? Plaque Structure: Echogenic ? Plaque Surface: Smooth ? %Stenosis: <15% ICA Distal, Left ? PSV (cm/s): 101 ? EDV (cm/s): 49 ? ICA/CCA: 1.1 CCA Distal, Left ? PSV (cm/s): 91 ? EDV (cm/s): 40 ? %Stenosis: Minimal CCA Proximal, Left ? PSV (cm/s): 93 ? EDV (cm/s): 35 External Carotid Artery, Left ? PSV (cm/s): 76 ? EDV (cm/s): 20 ? %Stenosis: <50% Vertebral, Left ? PSV (cm/s): 52 ? EDV (cm/s): 20 ? Direction of Flow: Antegrade Interpretation: RIGHT: There is a small, focal irregular plaque in the proximal internal carotid artery causing <15% stenosis when compared to the more distal internal carotid artery. The bifurcation level is in the mid neck. LEFT: There is very minimal smooth plaque in the proximal internal carotid artery causing <15% stenosis when compared to the more distal internal carotid artery. The bifurcation level is in the mid neck. Vertebral Artery Data: Patent vertebral arteries with normal antegrade Doppler waveforms and velocities bilaterally. Comparison: ??No previous study in our vascular lab database for comparison. Electronically Signed by: ARIAS GAINES on 2017-02-06 03:06:19 PM VASCUBASE VB Text Report End of Report VAS[facility] 02/06/2017 10:0 0 AM EST Shahriar Mishra EXECUTIVE VICE PRESIDENT VASCULAR ORDERABLES VASCUBASE documented in this encounter Visit Diagnoses Diagnosis Bilateral carotid bruits History of tongue cancer Personal history of malignant neoplasm of tongue documented in this encounter Care Teams Cardiology Technologist Relationship Specialty Start Date End Date Marck Brody DO [address] [place] [address] PCP - General 02/08/10 10/12/21 documented as of this encounter
--- OUTSIDE RECORDS SUMMARY | 2023-12-08 20:05 | XMS_ITS | Encounter Summary ---
Author Organization [facility] [place] [address] Care Team Providers Care Manager Chinese Name Role Phone Marck Brody DO Primary Care Provider [phone] Encounter Details Date Type Department Care Team (Late st Contact Info) Description 04/17/2017 Telephone [place] [address] Keyur Ng MD [facility] [place] [address] Social History Tobacco Use Types Packs/Day Years [...] Telephone Encounter - Keyur Ng MD - 04/17/2017 11:16 AM EST ----- Message from Allegra Vega sent at 04/17/2017 11:09 AM EST ----- Regarding: Patient is returning your call Ruchi Ng Patient called stating you had given her a call and left a message. Patient is returning your call. Thank you Allegra documented in this encounter Plan of Treatment Not on file documented as of this encounter Visit Diagnoses Not on filedocumented in this encounter Care Teams Manager Chinese Relationship Specialty Start Date End Date Marck Brody DO [address] [place] [address] PCP - General 02/08/10 10/12/21 documented as of this encounter
--- OUTSIDE RECORDS SUMMARY | 2023-12-08 20:05 | XMS_ITS | Encounter Summary ---
[place] [address] Care Team Providers Care Wax Pattern Coater Name Role Phone Marck Brody DO Primary Care Provider Encounter Details Date Type Department Care Team (Late st Contact Info) Description 04/06/2017 Telephone [place] [phone] Nadine Ansari Social History Tobacco Use Types Packs/Day Years [...] encounter Miscellaneous Notes * Telephone Encounter - Nadine Ansari - 04/06/2017 2:51 PM EST Left message for a patient that we received her x-rays and that we would be sending them to Dr. Ng's office to set up a consultation. documented in this encounter Plan of Treatment Not on file documented as of this encounter Visit Diagnoses Not on filedocumented in this encounter Care Teams Wax Pattern Coater Relationship Specialty Start Date End Date Marck Brody DO [address] [place] [address] PCP - General 02/08/10 10/12/21 documented as of this encounter
--- OUTSIDE RECORDS SUMMARY | 2023-12-08 20:05 | XMS_ITS | Encounter Summary ---
Author Organization [facility] [place] [address] Care Team Providers Care Unishear Operator Name Role Phone Marck Brody DO Primary Care Provider Reason for Visit * Reason Comments Patient Education head and neck cancer Encounter Details Date Type Department Care Team (Late st Contact Info) Description 12/06/2016 1:00 PM EDT Clinical Support [place] [phone] Shahriar Mishra[address] [place] [address] Bilateral carotid bruits; History of tongue cancer Social History Tobacco [...] Sign Reading Time Taken Comments Blood Pressure 119/71 12/06/2016 1:09 PM EDT Pulse 90 12/06/2016 1:09 PM EDT Temperature 36.4 ??C (97.5 ??F) 12/06/2016 1:09 PM ED T Respiratory Rate - - Oxygen Saturation 100% 12/06/2016 1:09 PM EDT Inhaled Oxygen Concentration - - Weight 46.5 kg (102 lb 9.6 oz) 12/06/2016 1:09 P M EDT Height - - Body Mass Index 18.77 10/10/2016 12:59 PM EDT documented in this encounter Patient Instructions * Patient Instructions* Shahriar Mishra, IT RISK ANALYST - 12/06/2016 1:00 PM EDT Recent Results (from the past 24 hour(s)) Comprehensive metabolic panel (non-fasting) Result Value Ref Range Glucose Lvl 109 65 - 199 mg/dL BUN 6 (L) 8 - 18 mg/dL Creatinine 0.84 0.70 - 1.20 mg/dL Sodium 137 135 - 145 mmol/L Potassium 3.4 (L) 3.5 - 5.0 mmol/L Chloride 98 98 - 107 mmol/L CO2 25 22 - 31 mmol/L Anion Gap 14 5 - 15 mmol/L Calcium 9.5 8.5 - 10.5 mg/dL Total Protein 7.5 6.1 - 8.0 gm/dL Albumin 4.4 3.2 - 5.2 gm/dL AST 20 0 - 30 unit/L ALT 13 0 - 30 unit/L Alk Phos 42 40 - 104 unit/L Total Bilirubin 0.6 0.2 - 1.3 mg/dL Estimated GFR >60 >=60 Hemogram Result Value Ref Range WBC 4.7 4.0 - 9.5 x10(3)/mcL RBC 3.89 (L) 4.00 - 5.21 x10(6)/mcL Hemoglobin 13.1 11.7 - 15.5 gm/dL Hematocrit 37.8 35.7 - 45.8 % MCV 97.2 (H) 82.6 - 94.4 fL MCH 33.7 (H) 27.1 - 32.0 pg MCHC 34.7 31.7 - 35.0 gm/dL Platelets 288 145 - 357 x10(3)/mcL RDWSD 43.8 37.0 - 46.0 fL RDWCV 12.1 11.5 - 14.1 % MPV 9.4 7.6 - 12.9 fL nRBC % Auto 0.0 % nRBC Abs Auto 0.000 0.000 - 0.000 x10(3)/mcL Differential, Automated Result Value Ref Range Neutrophils % 66.2 % Neutr Abs (ANC) 3.13 1.70 - 6.10 x10(3)/mcL Lymphocytes % 22.7 % Lymphocytes Abs 1.1 0.9 - 3.2 x10(3)/mcL Monocytes % 6.6 % Monocyte Abs 0.3 0.3 - 0.9 x10(3)/mcL Eosinophils % 3.2 % Eosinophils Abs 0.2 0.0 - 0.4 x10(3)/mcL Basophils % 1.1 % Basophils Abs 0.0 0.0 - 0.1 x10(3)/mcL Immature Gran % 0.20 % Josselyn Gran Abs 0.01 0.00 - 0.04 x10(3)/mcL Vitals Clinical Support from 12/06/2016 in Radiation Oncology at [place] Weight - Scale 46.5 kg (102 lb 9.6 oz) Temp 36.4 ??C (97.5 ??F) Temp Source Oral Heart Rate 90 Heart Rate Source Left BP 119/71 BP Location Right arm Patient Position Sitting SpO2 100 % documented in this encounter Progress Notes * Shahriar Mishra APRN - 12/06/2016 1:00 PM EDT Patient ID: Theresa Henley is a myles 46 y.o. 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 She completed treatment 01/14/2007 She requested to be seen due to new symptoms of dizziness and light headedness. HPI At age 36 Ms. Theresa Henley presented to her local dentist in 03/25 w/a non- healing sore on her L lateral tongue. She had a previous lesion 1 yr. prior which resolved w/steroid treatment. The dentist biopsied the lesion & treated her for thrush w/nystatin. The biopsy was read @ [facility] as dysplasia @ the basal aspect of the incision w/rounded downgrowth associated w/a lichenoid inflammatory change. HIV w/u neg. Then she was seen by Dr. Rausch in 05/23 who noted a 1.5 X 1.5 cm lesion along the L lateral tongue extending to the RMT & appeared superficial. She was treated w/diflucan w/some response. 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 She was then treated w/kenalog in orobase. Although there was some clinical improvement, she then developed a new area of leukoplakia along the floor of mouth. She was then taken to the OR on 09/13/06 for biopsies for the floor of mouth as well as excision of an indurated area along the lateral tongue. Final path review @ [facility]: a. Tongue, L, biopsy: squamous cell ca, invasive, poorly differentiated w/spindle cell features. Radial size 1.0 cm, depth 0.5 cm, +perineural invasion, no vascular invasion, tumor extends to blue-inked margin along a broad front (medial per report). Tumor extends focally to deep margin. Dysplasia, low grade, present @ black-inked margin (lateral per report). b. Mucosa, L, floor of mouth, biopsy: squamous mucosa w/low grade dysplasia. 10/30/06 she underwent L hemiglossectomy w/functional neck dissection, levels 1,2,3,4 & 5, pharyngoplasty, STSG to oral cavity, accellular dermal graft to oral cavity, sternocleidomastoid rotational muscle flap. There were a number of perifascial lymph nodes. There was an area of leukoplakia along the floor of mouth anteriorly, ventral surface of the tongue, as well as posteriorly heading towards the glosspharyngeal fold & anterior tonsillar pillar. There was also induration along the inferior aspect of the tongue. She was then treated with concurrent chemotherapy with cisplatin and radiation therapy. She received 6600 cGy via IMRT with treatment completed on 01/14/2007. Problem List: Primary site: Squamous cell cancer of the left lateral tongue Stage: [id number] Surgery(ies): 10/31/06 - Hemiglossectomy, left neck dissection 1-5, skin graft, allograft Radiation: TREATMENT STARTED: 11/28/06 TREATMENT COMPLETED: 01/14/07 TREATMENT: The total maximum dose was 6600 cGy in 33 fractions. Volume reductions were instituted at 5400 cGy in 30 fractions & 6000 cGy in 30 fractions. Chemotherapy: Concurrent cisplatin 2. Hypothyroidism. Patient Active Problem List Diagnosis Code ??? Hypothyroidism (acquired) E03.9 ??? Tongue cancer C02.9 ??? Tinnitus H93.19 ??? History of tongue cancer Z85.810 ??? Radiation injury T66.XXXA ??? DIFFICULT AIRWAY T88.4XXA ??? Periodontal disease K05.6 Past Surgical History: Procedure Laterality Date ??? GLOSSECTOMY Right partial ??? LYMPHADENECTOMY SND 1-5 ??? PRO BONE BIOPSY,TROCAR/NEEDLE SUPERF Left 05/06/2014 BIOPSY BONE, TROCAR OR NEEDLE, SUPERFICIAL, MANDIBLE performed by Alfred Vital MD at [facility] ??? PRO REMOVAL ERUPTED TOOTH WITH ELEVATION OF MUCOPERIOSTEAL FLAP N/A 05/06/2014 SURGICAL EXTRACTIONS REQUIRING ELEVATION OF MUCOPERIOSTEAL FLAP AND REMOVAL OF BONE OR SECTION OF TOOTH performed by Alfred Vital MD at [facility] ??? SKIN GRAFT Allergies Allergen Reactions ??? Benzocaine Made pt tongue red and angry. Irritant reaction - allergy testing negative ??? Lidocaine Viscous [Lidocaine Hcl] Irritant reaction - allergy testing negative Medications 12/08/16 190 Medication Sig Taking? cevimeline (EVOXAC) 30 mg Capsule Take 1 capsule by mouth 3 times daily. Yes levothyroxine (SYNTHROID) 112 mcg Tablet Take 1 tablet by mouth daily. Yes calcium carbonate (TUMS) 200 mg calcium (500 mg) Tablet, Chewable Take 1 tablet by mouth daily. Yes acetaminophen (TYLENOL) 160 mg/5 mL Elixir Take 15 mg/kg/dose by mouth every 4 hours as needed for Fever. Reported on 02/24/2016 Yes Social History Social History ??? Marital status: Spouse name: N/A ??? Number of children: N/A ??? Years of education: N/A Occupational History ??? Not on file. Social History Main Topics ??? Smoking status: Never Smoker ??? Smokeless tobacco: Never Used ??? Alcohol use Yes Comment: seldom, 4 drinks per year ??? Drug use: No ??? Sexual activity: Not on file Other Topics Concern ??? 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 About a month ago she was doing her usual morning workout exercises and was lying on the floor and all of a sudden she experienced vision chnages and felt dizzy. She finished her workout and was wobblly for about 1/2 hour. She then ate breakfast and felt somewhat better and by 2-3 pm was fine. The next day was doing chest exercises on floor and got dizzy again and the recovered fairly quickly She then avoided exercise for several days (1 week) Since then she has been getting up later In the morning and has been doing the same workout with noproblem. Other recent health issues includes testing for allergies. She will be seeing her sales intern today. Due to allergies she has become a vegetarian. She recently had TSH checked at [facility] and it was 0.8. 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 She has no pain at this time. ROS otherwise negative NO Yes Comment Fatigue: x Tobacco use: x Ethanol use: x Metastatic Sx: x Review of Systems Constitutional: Negative for activity change, appetite change, chills, diaphoresis, fatigue, fever and unexpected weight change. Patient's weight is stable HENT: Negative. Negative for dental problem, facial swelling, hearing loss, mouth sores, sore throat and trouble swallowing. Fibrosis of neck and stiffness Patient does stretching exercises daily. No jaw pain Eyes: Negative. Respiratory: Negative. Negative for cough, choking, chest tightness, shortness of breath and wheezing. Cardiovascular: Negative. Negative for chest pain and leg swelling. Gastrointestinal: Negative. Endocrine: Negative. Genitourinary: Negative. Musculoskeletal: Positive for neck stiffness. Negative for arthralgias, back pain, gait problem, joint swelling, myalgias and neck pain. Skin: Negative. Neurological: Positive for dizziness and light-headedness. Negative for tremors, facial asymmetry, weakness, numbness and headaches. Unchanged speech mild speech alteration. Hematological: Negative. Psychiatric/Behavioral: Negative. Negative for sleep disturbance. Vitals: 12/06/16 1309 BP: 119/71 Patient Position: Sitting Pulse: 90 Temp: 36.4 ??C (97.5 ??F) TempSrc: Oral SpO2: 100% Weight: 46.5 kg (102 lb 9.6 oz) Physical Exam Constitutional: She is oriented to person, place, and time. She appears well- developed and well-nourished. No distress. HENT: Head: Normocephalic. Eyes: Conjunctivae and EOM are normal. Pupils are equal, round, and reactive to light. No scleral icterus. Neck: Neck supple. Carotid bruit is present. No tracheal deviation, no edema, no erythema and normal range of motion present. No thyroid mass and no thyromegaly present. Fibrosis of neck with mild reduced range of motion Cardiovascular: Normal rate, regular rhythm and normal heart sounds. Exam reveals no gallop and no friction rub. No murmur heard. Pulmonary/Chest: Effort normal and breath sounds normal. No respiratory distress. She has no wheezes. She has no rales. She exhibits no tenderness. Musculoskeletal: Normal range of motion. She exhibits no edema or tenderness. Lymphadenopathy: She has no cervical adenopathy. Neurological: She is alert and oriented to person, place, and time. She exhibits normal muscle tone. Coordination normal. Skin: Skin is warm and dry. No rash noted. She is not diaphoretic. No erythema. No pallor. Psychiatric: She has a normal mood and affect. Her behavior is normal. Judgment and thought contentnormal. Vitals reviewed. Assessment and Plan: Assessment/plan: H/O Cancer of the lateral tongue. There is MALLY Patient seen in clinic due to new Sx of lightheadedness with doing am exercises. She had XRT to neck and carotid bruits are present. Will order carotid duplex to evaluate for occlusion. We discussed late effects of XRT in vascular system. 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 She was treated with hyperbaric oxygen therapy with resolution of pain. She is seen yearly by ENT for surveillance . documented in this encounter Plan of Treatment Not on file documented as of this encounter Results * Cerebrovascular Duplex, Bilateral (02/06/2017 10:00 AM EST) VB Text Report Department: Vascular Surgery Lab Patient: [id number] (THERESA HENLEY) CPT: 40836 ICD10: Z85.810;R09.89 Referring Physician: SHAHRIAR MISHRA ?? [...] 02/06/2017 10:0 0 AM EST Shahriar Mishra APRN VASCULAR ORDERABLES VASCUBASE documented in this encounter Visit Diagnoses Diagnosis Bilateral carotid bruits History of tongue cancer Personal history of malignant neoplasm of tongue documented in this encounter Care Teams Unishear Operator Relationship Specialty Start Date End Date Marck Brody DO [address] [place] [address] PCP - General 02/08/10 10/12/21 documented as of this encounter
--- OUTSIDE RECORDS SUMMARY | 2023-12-08 20:05 | XMS_ITS | Encounter Summary ---
[place] [address] Care Team Providers Care Private Mortgage Banker Safe Name Role Phone Marck Brody DO Primary Care Provider [phone] Encounter Details Date Type Department Care Team (Late st Contact Info) Description 01/02/2018 Telephone [place] [phone] Amy Trotter RN Social History Tobacco Use Types Packs/Day [...] Miscellaneous Notes * Telephone Encounter - Amy Trotter RN - 01/02/2018 4:48 PM EDT Theresa called the nurse triage line yesterday evening with concerns for infection. Theresa reports that her left jaw is painful around the previous fracture. The pain is intensifying and radiating to her upper jaw and roof of her mouth. She has had no recent trauma to her jaw and continues to maintaina diet of soft-consistency. She denies fever, warmth, or drainage. According to Theresa, these symptoms are typical for her when she gets an infection. She is wondering if Dr. Ng would be willingto write a script for clindamycin, which has been effective in the past. Consulted Delisa Nguyen APRN, who recommended that Dr. Ng prescribe clindamycin, that thepatient use saltwater gargles three to four times daily, and that an appointment be made for Theresa to see Dr. Ng if the antibiotic course is ineffective. Recommendations relayed to Theresa, who verbalizes good understanding of and agreement with plan of care. documented in this encounter Plan of Treatment Not on file documented as of this encounter Visit Diagnoses Not on filedocumented in this encounter Care Teams Private Mortgage Banker Safe Relationship Specialty Start Date End Date Marck Brody DO [address] [place] [address] PCP - General 02/08/10 10/12/21 documented as of this encounter
--- OUTSIDE RECORDS SUMMARY | 2023-12-08 20:05 | XMS_ITS | Encounter Summary ---
[place] [address] Care Team Providers Care Door Paneler Name Role Phone Marck Brody DO Primary Care Provider Reason for Visit * Reason Onset Date Comments Medication Refill 11/17/2016 Encounter Details Date Type Department Care Team (Late st Contact Info) Description 11/17/2016 Refill [place] [phone] Carolyn Mello, RN Tongue cancer Social History Tobacco Use Types [...] of this encounter Visit Diagnoses Diagnosis Tongue cancer Malignant neoplasm of tongue, unspecified site documented in this encounter Care Teams Door Paneler Relationship Specialty Start Date End Date Marck Brody DO [address] [place] [address] PCP - General 02/08/10 10/12/21 documented as of this encounter
--- OUTSIDE RECORDS SUMMARY | 2023-12-08 20:05 | XMS_ITS | Encounter Summary ---
[place] [address] Care Team Providers Care Extractor Loader And Unloader Name Role Phone Marck Brody DO Primary Care Provider [phone] Reason for Visit * Reason Onset Date Comments Questions 01/11/2018 follow up from [facility] with Dr. Ng Encounter Details Date Type Department Care Team (Late st Contact Info) Description 01/11/2018 Telephone [place] [address] Neo Sherman, RN Questions (follow up from visit with Dr. Ng) Social History Tobacco Use Types Packs/Day Years [...] Telephone Encounter - Neo Sherman RN - 01/11/2018 2:50 PM EDT Nursing Phone Note Theresa had left a message on the nurse triage line with a question about when her surgery would be scheduled. 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 She said she is continuing to take clindamycin. She requested we return call to her on her home phone and leave a message - I let her know no date has been set yet, and asked her to reach out to Dr. Ng's trade union secretary directly. documented in this encounter Plan of Treatment Not on file documented as of this encounter Visit Diagnoses Not on filedocumented in this encounter Care Teams Extractor Loader And Unloader Relationship Specialty Start Date End Date Marck Brody DO [address] [place] [address] [address] [place] [address] PCP - General 02/08/10 10/12/21 documented as of this encounter
--- OUTSIDE RECORDS SUMMARY | 2023-12-08 20:05 | XMS_ITS | Encounter Summary ---
Author Organization [facility] Address [facility] [place] [address] Care Team Providers Care Watchmaker Apprentice Name Role Phone Marck Brody DO Primary Care Provider [phone] Encounter Details Date Type Department Care Team (Late st Contact Info) Description 03/20/2018 Telephone [place] [phone] Hermelindo Kearney PA [facility] [place] [address] Social History Tobacco Use Types Packs/Day Years [...] encounter Miscellaneous Notes * Telephone Encounter - Hermelindo Kearney PA - 03/24/2018 10:28 PM EST Discussed with the patient regarding her current symptoms, and she mentioned that she still felt discomfort in her anterior tongue and that the viscous lidocaine had not helped. Discussed trial of Dexamethasone Elixir 4 times per day for 7 days, and contacting the clinic regarding her response. Thepatient expressed understanding of this and agreement with the plan. documented in this encounter Plan of Treatment Not on file documented as of this encounter Visit Diagnoses Not on filedocumented in this encounter Care Teams Watchmaker Apprentice Relationship Specialty Start Date End Date Marck Brody DO [address] [place] [address] PCP - General 02/08/10 10/12/21 documented as of this encounter
--- OUTSIDE RECORDS SUMMARY | 2023-12-08 20:05 | XMS_ITS | Encounter Summary ---
Author Organization [facility] [place] [address] Care Team Providers Care Booking Supervisor Name Role Phone Marck Brody DO Primary Care Provider [phone] Encounter Details Date Type Department Care Team (Late st Contact Info) Description 06/18/2017 [place] [phone] Gaurang Gutierrez LPN Social History Tobacco Use Types Packs/Day Years [...] as of this encounter Progress Notes * Gaurang Gutierrez LPN - 06/18/2017 8:39 AM EDT Left msg on id'ed voicemail at work number. Advising pt that Chlorpheniramine ER 12mg tablet is not available per Julio Bates [facility] Medication is available otc in 3mg tablets. Please take 4 tablets for desired dose. documented in this encounter Plan of Treatment Not on file documented as of this encounter Visit Diagnoses Not on filedocumented in this encounter Care Teams Booking Supervisor Relationship Specialty Start Date End Date Marck Brody DO [address] [facility] [address] [place] [address] PCP - General 02/08/10 10/12/21 documented as of this encounter
--- OUTSIDE RECORDS SUMMARY | 2023-12-08 20:05 | XMS_ITS | Encounter Summary ---
Author Organization [facility] [place] [address] Care Team Providers Care County Court Judge Name Role Phone Marck Brody DO Primary Care Provider Reason for Referral * Diagnostic Test (Routine) - Closed Specialty Diagnoses / Procedures Referred By Shilrey cuevas Referred To Contact Radiology Diagnoses Pathological fracture of mandible with delayed healing, subsequent encounter Procedures CT Face wo Contrast Keyur Ng MD [facility] [place] [address] [facility] [place] [address] Referral ID Status Reason Start Date Expiration Date V isits Requested Visits Authorized [id number] Closed Specialty Service Requested 04/16/2017 06/14/2017 1 1 Reason for Visit * Consultation (Routine) - Closed Specialty Diagnoses / Procedures Referred By Shirley cuevas Referred To Contact Maxillofacial Surgery Diagnoses please review panorex patient has a past history of cancer Roberth Lee MD [facility] [place] [address] [facility] [address] [place] [address] Referral ID Status Reason Start Date Expiration Date Visits Re quested Visits Authorized [id number] Closed 04/06/2017 04/06/2018 1 1 Encounter Details Date Type Department Care Team (Jose st Contact Info) Description 04/16/2017 3:15 PM EST Office Visit [place] [address] Keyur Ng MD [facility] [place] [address] Pathological fracture of mandible with delayed healing, subsequent encounter; Periodontal disease Social History Tobacco Use Types Packs/Day Years [...] Progress Notes * Keyur Ng MD - 04/16/2017 3:15 PM EST Oral & Maxillofacial Surgery Lesion Consultation Theresa Hollis is 46 y.o. female who was sent to us for consultation to evaluate her new onset jaw pain. Interval History: ?? The patient reports severe jaw pain that started on Mar 28 on the mid chin and lower right. It has gotten a little better since then. Was seen about a year ago by Dr. Vital due to a pathologic fracture that developed in the lower left mandible despite HBO therapy and history of extractions. Shedid slowly get better and the pathologic fracture has stabilized. She was prepared to have several teeth removed by an oral surgeon near her home but was held off due to her recent discomfort. She had SCCA tongue cancer, RND, Chemo/Rad in 2006. HBO therapy in 2014 leading up to extractions on the lower left. She is present with her Father today. ?? Review of Systems is unremarkable with the exception of difficulty eating at times. Has not been onantibiotics Past Medical History: Diagnosis Date ??? Allergic rhinitis ??? Cancer of head, face, and neck ??? Food allergy ??? Hypothyroidism Past Surgical History: Procedure Laterality Date ??? GLOSSECTOMY Right partial ??? LYMPHADENECTOMY SND 1-5 ??? PRO BONE BIOPSY,TROCAR/NEEDLE SUPERF Left 05/06/2014 BIOPSY BONE, TROCAR OR NEEDLE, SUPERFICIAL, MANDIBLE performed by Alfred Vital MD at [facility] ??? PRO REMOVAL ERUPTED TOOTH WITH ELEVATION OF MUCOPERIOSTEAL FLAP N/A 05/06/2014 SURGICAL EXTRACTIONS REQUIRING ELEVATION OF MUCOPERIOSTEAL FLAP AND REMOVAL OF BONE OR SECTION OF TOOTH performed by Alfred Vital MD at [facility] ??? SKIN GRAFT Social History Social History ??? Marital status: [...] ??? Not on file Social History Narrative Brief Review of Systems conducted with comments regarding pulmonary, neurologic, cardiac, gastrointestinal, hepatic, renal and dermatological symptoms negative except as noted above. ??? clindamycin (CLEOCIN) 300 mg Capsule ??? ipratropium (ATROVENT) 0.03 % [place], Non-Aerosol ??? FIRST-MOUTHWASH BLM 550-89-190-40 mg/30 mL Mouthwash ??? levothyroxine (SYNTHROID) 112 mcg Tablet ??? cevimeline (EVOXAC) 30 mg Capsule ??? calcium carbonate (TUMS) 200 mg calcium [...] negative ??? Spinach Other (See Comments) wheezing Physical Exam: Extra-oral exam was conducted including facial symmetry, sensory and motor function, alertness and appropriateness to questions and requests, range of jaw motion, TMJ function and skeletal architecture. Neck exam was conducted with attention to normal musculature, vasculature and potential adenopathy. Intra-oral exam included evaluation of tongue mobility and surface consistency - both dorsal and ventral, floor of mouth, buccal and labial mucosa, maxillary and mandibular vestibules, hard and soft palate and oropharynx as well as dentition and alveolar process, dental arches and occlusion as wellas salivary flow. The exam also included bimanual palpation of the floor of the mouth with attention to the submandibular triangle. Notable findings on this examination included: ?? No acute distress, thin but appears well nourished ?? CARITO approx 15-20 mm with provocation ?? Several mobile teeth demonstrating bone loss, gingival erythema consistent with severe, localized periodontitis involving teeth #21, 23, 24, 25 ?? No LAD, neck soft and no submental erythema Available imaging studies were reviewed demonstrating Panorex reviewed from approx 2 weeks ago showing hyperdensity near a non-displaced fracture of the left body. 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 No fracture of the right side and periodontally involved teeth Impression: Severe, localized periodontal disease involving multiple mandibular teeth. Pathologic left body mandibular fracture that seems to have formed a fibrous union without signs of infection. Her pain seems to be more related to her compromised periodontally involved teeth. Recommendations and Plan: Clindamycin 10 day course and consider extraction of multiple teeth and debridement of granulation tissue involved with these teeth. She will consider seeing a local oral surgeon for this. It is reassuring that her pathologic fracture has stabilize. She most likely would need vascularized free flap (fibula) in order to reconstruct this should her pain worsen in this are and the fracture develop infection and displacement. 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 Narrative 04/17/2017 9:03 AM EST EXAMINATION: CT FACE WO CONTRAST CLINICAL HISTORY: history of pathologic fracture of mandible and history of radiation for oral CA, eval new fracture TECHNIQUE: CT acquired of the face without contrast. COMPARISON: CT 02/01/2016 FINDINGS: Interval periostitis and osseous bridging involving the pathologic left mandibular body fracture. Continued extensive periostitis and abnormal sclerosis involving the left hemimandible. Soft tissue ulceration along the left floor of mouth extends to the margin of the left mandibular body. Advanced periodontal disease with recession of the alveolar process of the mandible lucency surrounding multiple teeth. No associated soft tissue mass. Similar partially imaged postsurgical changes. Procedure Note Aggie Stahl MD - 04/17/2017 EXAMINATION: CT FACE WO CONTRAST CLINICAL HISTORY: history of pathologic fracture of mandible and historyof radiation for oral CA, eval new fracture TECHNIQUE: CT acquired of the face without contrast. COMPARISON: CT 02/01/2016 FINDINGS: Interval periostitis and osseous bridging involving the pathologic left mandibular body fracture. Continued extensive periostitis and abnormalsclerosis involving the left hemimandible. Soft tissue ulceration along the leftfloor of mouth extends to the margin of the left mandibular body. Advancedperiodontal disease with recession of the alveolar process of the mandible lucency surrounding multiple teeth. No associated soft tissue mass. Similarpartially imaged postsurgical changes. IMPRESSION Osteoradionecrosis of the left mandible with healing pathologicfracture. Keyur Ng MD IMG CT ORDERABLES documented in this encounter Visit Diagnoses Diagnosis Pathological fracture of mandible with delayed healing, subsequent encounter Periodontal disease Unspecified gingival and periodontal disease Pathological fracture of mandible with delayed healing, subsequent encounter documented in this encounter Care Teams County Court Judge Relationship Specialty Start Date End Date Marck Brody DO [address] [place] [address] PCP - General 02/08/10 10/12/21 documented as of this encounter
--- OUTSIDE RECORDS SUMMARY | 2023-12-08 20:05 | XMS_ITS | Encounter Summary ---
Author Organization [facility] [place] [address] Care Team Providers Care Armor Reconnaissance Specialist Name Role Phone Marck Brody DO Primary Care Provider [phone] Encounter Details Date Type Department Care Team (Late st Contact Info) Description 05/14/2017 12:09 PM EST - 05/14/2017 11:59 PM [facility] Hospital [place] [phone] Marck Brody DO [address] [place], [place] [address] Encounter for screening mammogram for breast cancer [...] Sig Dispensed Refills Start Date End Date clindamycin (CLEOCIN) 150 mg Capsule 05/10/2017 01/15/2018 Chlorpheniramine Maleate 12 mg Tablet Sustained Release Take 1 tablet by mouth every 12 hours. 60 tablet 11 05/14/2017 10/08/2019 tiotropium (SPIRIVA WITH HANDIHALER) 18 mcg Capsule, w/Inhalation Device Inhale 1 capsule into the lungs daily. 30 capsule 05/14/2017 10/05/2017 albuterol 90 mcg/actuation HFA Aerosol Inhaler Inhale 2 puffs into the lungs every 4 hours as needed for Wheezing. 1 Inhaler 1 05/14/2017 10/08/2019 levothyroxine (SYNTHROID) 112 mcg TabletIndications:Hypo thyroidism (acquired),Tongue cancer Take 1 tablet by mouth daily. 90 tablet 3 03/22/2017 01/28/2018 cevimeline (EVOXAC) 30 mg CapsuleIndications:Ton boby cancer Take 1 capsule by mouth 3 times daily. 90 capsule 12 11/17/2016 12/11/2017 calcium carbonate (TUMS) 200 mg calcium (500 [...] MAMMO SCREENING CAD AND DEMETRIO BILATERAL Routine 05/14/2017 12:53 PM EST Encounter for screening mammogram for breast cancer documented in this encounter Results * Mammo Screen CAD and Demetrio Bilat (Generic) (05/14/2017 12:53 PM EST) Anatomical Region Laterality Modality Breast Bilateral Mammography Narrative 05/15/2017 11:35 AM EST BILATERAL MAMMOGRAPHY REASON FOR EXAM: Screening TECHNIQUE: CC and MLO views were obtained of each breast using standard 2-D mammography as well as 3-D tomosynthesis. Computer aided detection was used. This is compared with prior images. FINDINGS: There are scattered areas of fibroglandular density. There are no suspicious microcalcifications, masses, or areas of distortion. The pattern is stable. CONCLUSION: No mammographic evidence of malignancy. RECOMMENDATION: The [employer] and The Society of Breast Imaging recommend annual screening beginning at age 40 for the general female population. Screening should continue as long as a woman is in good health and is expected to live 10 more years or longer. All women should be familiar with the known benefits, limitations, and potential harms linked to breast cancer screening. They should also know how their breasts normally look and feel and report any breast changes to a health care provider right away. Some women - because of their family history, a genetic tendency, or certain other factors - should be screened with MRIs along with mammograms. (The number of women who fall into this category is very small.) The patient and health care provider should discuss the patient history and decide if earlier screening and breast MRI are appropriate. A result letter has been sent to this patient by the [facility]. BIRADS CATEGORY 1: NEGATIVE Marck PALACIOS MAMMO ORDERABLES documented in this encounter Visit Diagnoses Diagnosis Encounter for screening mammogram for breast cancer documented in this encounter Care Teams Armor Reconnaissance Specialist Relationship Specialty Start Date End Date Marck Brody DO [address] [place] [address] PCP - General 02/08/10 10/12/21 documented as of this encounter
--- OUTSIDE RECORDS SUMMARY | 2023-12-08 20:05 | XMS_ITS | Encounter Summary ---
Author Organization [facility] [place] [address] Care Team Providers Care Surveyor Hydrographic Name Role Phone Marck Brody DO Primary Care Provider [phone] Encounter Details Date Type Department Care Team (Late st Contact Info) Description 04/03/2017 Telephone [place] [phone] Amy Trotter, RN Social History Tobacco Use Types Packs/Day [...] Telephone Encounter - Amy Trotter RN - 04/03/2017 3:32 PM EST I called Theresa to follow up with her jaw symptoms from the previous week. She had called yesterday and left a VM on the chiropractic doctor line which stated she thought rice getting caught in her gums had caused the jaw pain. During today's call, she briefly stated that her pain had decreased significantly after discovering and removing some rice that had wedged in her gums; she was going to avoid eating rice and riced cauliflower from now on and see if her symptoms resolved. I stated that it would be prudent to set up an appointment with Dr. Ng in the maxillofacial department; a panorex would likely be ordered. Theresa said that, due to her schedule and location, she would prefer to have the panorex done locally and then only meet with MD Berenice, if warranted. I said that I would look intothis possibility. documented in this encounter Plan of Treatment Not on file documented as of this encounter Visit Diagnoses Not on filedocumented in this encounter Care Teams Surveyor Hydrographic Relationship Specialty Start Date End Date Marck Brody DO [address] [place] [address] PCP - General 02/08/10 10/12/21 documented as of this encounter
--- OUTSIDE RECORDS SUMMARY | 2023-12-08 20:05 | XMS_ITS | Encounter Summary ---
[place] [address] Care Team Providers Care Electromechanisms Design Drafter Name Role Phone Marck Brody DO Primary Care Provider [phone] Encounter Details Date Type Department Care Team (Late st Contact Info) Description 01/21/2018 Telephone [place] [phone] Latoya Molina Social History Tobacco Use Types [...] * Telephone Encounter - Latoya Molina - 01/21/2018 1:21 PM EST Left message of rescheduled appointment from 02.04.18 to 18 at 0940 w/FARRUKH. documented in this encounter Plan of Treatment Not on file documented as of this encounter Visit Diagnoses Not on filedocumented in this encounter Care Teams Electromechanisms Design Drafter Relationship Specialty Start Date End Date Marck Brody DO [address] [place] [address] [address] [place] [address] PCP - General 02/08/10 10/12/21 documented as of this encounter
--- OUTSIDE RECORDS SUMMARY | 2023-12-08 20:05 | XMS_ITS | Encounter Summary ---
Author Organization [facility] [place] [address] Care Team Providers Care Finance Business Manager Name Role Phone Marck Brody DO Primary Care Provider Encounter Details Date Type Department Care Team (Late st Contact Info) Description 12/11/2017 Orders Only [place] [phone] Amy Trotter RN Tongue cancer Social History Tobacco Use [...] site documented in this encounter Care Teams Finance Business Manager Relationship Specialty Start Date End Date Marck Brody DO [address] [place] [address] PCP - General 02/08/10 10/12/21 documented as of this encounter
--- OUTSIDE RECORDS SUMMARY | 2023-12-08 20:05 | XMS_ITS | Encounter Summary ---
Author Organization [facility] [place] [address] Care Team Providers Care Superior Court Justice Name Role Phone Marck Brody DO Primary Care Provider Encounter Details Date Type Department Care Team (Late st Contact Info) Description 01/15/2018 Orders Only [place] [phone] Jennifer Nguyen RN Social History Tobacco Use Types Packs/Day [...] on filedocumented in this encounter Care Teams Superior Court Justice Relationship Specialty Start Date End Date Marck Brody DO [address] [place], [place] [address] PCP - General 02/08/10 10/12/21 documented as of this encounter
--- OUTSIDE RECORDS SUMMARY | 2023-12-08 20:05 | XMS_ITS | Encounter Summary ---
[place] [address] Care Team Providers Care Joy Loader Name Role Phone Marck Brody DO Primary Care Provider [phone] Encounter Details Date Type Department Care Team (Latest Contact Info) Description 02/06/2017 9:25 AM EST Laboratory Appointment [place] [address] [place] [address] Acquired hypothyroidism; Wheezing Social History Tobacco Use Types Packs/Day Years [...] Procedure Name Priority Date/Time Associated Diagnosis Comments MISCELLANEOUS LAB REQUEST Routine 02/06/2017 9:22 AM EST Wheezing [facility] Routine 02/06/2017 9 :22 AM EST TSH Routine 02/06/2017 9:22 AM EST Acquired hypothyroidism documented in this encounter Results * [facility] (02/06/2017 9:22 AM EST) Misc [place] Test ? Result ?Flag ??Unit ??RefValue Spinach, IgE ? 0.93 ?kU/L ?Class 2 (Positive 0.70-3.49) ?Test Performed by: ?[facility] ?[address] [place] [address] [facility] Blood specimen (specimen) Venous Draw / Unknown 02/06/2017 9:22 AM EST 02/06/2017 10:40 AM EST Narrative Resulting Agency Comment Spec In Lab Gabrielle Ortiz MD LAB SEND OUT ORDERAB LES Performing Organization Address [facility] Co de Phone Number [facility] [place] [address] * Miscellaneous Lab request (02/06/2017 9:22 AM EST) Label Request received in lab. [facility] Blood specimen (specimen) 02/06/2017 9:22 AM EST 02/06/2017 9:33 AM EST Narrative Resulting Agency Comment Spec In Lab Gabrielle Ortiz MD LAB SEND OUT ORDERAB LES Performing Organization Address [facility] Co de Phone Number [facility] [place] [address] * TSH (02/06/2017 9:22 AM EST) Thyroid Stimulating Hormone 0.36 0.27 - 4.20 mlU/ML [facility] Blood specimen (specimen) 02/06/2017 9:22 AM EST 02/06/2017 9:33 AM EST Narrative Resulting Agency Comment Spec In Lab Natalie Harris MEDICAL SCREENER CHEMISTRY ORDERABLES [facility] [place] [address] documented in this encounter Visit Diagnoses Diagnosis Acquired hypothyroidism Unspecified hypothyroidism Wheezing documented in this encounter Care Teams Joy Loader Relationship Specialty Start Date End Date Marck Brody DO [address] [place] [address] PCP - General 02/08/10 10/12/21 documented as of this encounter
--- OUTSIDE RECORDS SUMMARY | 2023-12-08 20:05 | XMS_ITS | Encounter Summary ---
[place] [address] Care Team Providers Care Nightclub Manager Name Role Phone Marck Brody DO Primary Care Provider Encounter Details Date Type Department Care Team (Late st Contact Info) Description 01/11/2018 Telephone [place] [phone] Jerrod Boyd Social History Tobacco Use Types Packs/Day Years [...] encounter Miscellaneous Notes * Telephone Encounter - Jerrod Boyd - 01/11/2018 4:07 PM EDT Theresa Hollis called for a refill on clindamycin. She will run out tomorrow afternoon. documented in this encounter Plan of Treatment Not on file documented as of this encounter Visit Diagnoses Not on filedocumented in this encounter Care Teams Nightclub Manager Relationship Specialty Start Date End Date Marck Brody DO [address] [place] [address] PCP - General 02/08/10 10/12/21 documented as of this encounter
--- OUTSIDE RECORDS SUMMARY | 2023-12-08 20:05 | XMS_ITS | Encounter Summary ---
Author Organization [facility] [place] [address] Care Team Providers Care Cover Marker Name Role Phone Marck Brody DO Primary Care Provider [phone] Encounter Details Date Type Department Care Team (Late st Contact Info) Description 04/11/2017 Telephone [place] [phone] Natalie Harris APRN [address] [place] [address] DR RADIATION [place] [address] Social History Tobacco Use Types Packs/Day Years [...] encounter Miscellaneous Notes * Telephone Encounter - Natalie Harris APRN - 04/11/2017 4:34 PM EST Call from patient Theresa reports that for over a week she has had significant increase in pain involving her jaw. The pain is also under her chin. She can't open her mouth as widely and occasionally her upper jaw also hurts. She is scheduled to see Dr Ng 05/14/2017 and does not feel that she can wait that long due to the severity of her pain. Panorex images were sent by her dentist on 04/06. Will send communication to Dr Ng and request if earlier evaluation can be done in his clinic. documented in this encounter Plan of Treatment Not on file documented as of this encounter Visit Diagnoses Not on filedocumented in this encounter Care Teams Cover Marker Relationship Specialty Start Date End Date Marck Brody DO [address] [place] [address] PCP - General 02/08/10 10/12/21 documented as of this encounter
--- OUTSIDE RECORDS SUMMARY | 2023-12-08 20:05 | XMS_ITS | Encounter Summary ---
Author Organization [facility] [place] [address] Care Team Providers Care Spinner Hand Name Role Phone Marck Brody DO Primary Care Provider [phone] Encounter Details Date Type Department Care Team (Late st Contact Info) Description 09/24/2017 External Results Hematology [place] [address] Mesha Briggs RN Social History Tobacco Use Types Packs/Day [...] Priority Date/Time Associated Diagnosis Comments TSH Routine 09/21/2017 9:03 AM EDT documented in this encounter Results * (ABNORMAL) TSH (09/21/2017 9:03 AM EDT) Free T3 3.3(Block Breaker Operator al Lab) Free T4 1.23(Exter nal Lab) Thyroid Stimulating Hormone 0.10(EXTER NAL/ABN) Blood specimen (specimen) 09/21/2017 9:03 AM EDT Historical Provider CHEMISTRY ORDERAB LES documented in this encounter Visit Diagnoses Not on filedocumented in this encounter Care Teams Spinner Hand Relationship Specialty Start Date End Date Marck Brody DO [address] [place] [address] PCP - General 02/08/10 10/12/21 documented as of this encounter
--- OUTSIDE RECORDS SUMMARY | 2023-12-08 20:05 | XMS_ITS | Encounter Summary ---
Author Organization [facility] [place] [address] Care Team Providers Care Logistics Operations Manager Name Role Phone Marck Brody DO Primary Care Provider Encounter Details Date Type Department Care Team (Late st Contact Info) Description 01/02/2018 Orders Only [place] [phone] Amy Trotter RN Social History Tobacco Use [...] in this encounter Care Teams Logistics Operations Manager Relationship Specialty Start Date End Date Marck Brody DO [address] [place], [place] [address] PCP - General 02/08/10 10/12/21 documented as of this encounter
--- OUTSIDE RECORDS SUMMARY | 2023-12-08 20:05 | XMS_ITS | Encounter Summary ---
Author Organization [facility] [place] [address] Care Team Providers Care Hazard Mitigation Officer Name Role Phone Marck Brody DO Primary Care Provider Encounter Details Date Type Department Care Team (Late st Contact Info) Description 01/22/2017 Orders Only [place] [address] Natalie Harris, BICYCLE ASSEMBLER [address] [place] [address] [place] [address] Acquired hypothyroidism Social History Tobacco Use Types Packs/Day Years [...] documented as of this encounter Results * TSH (02/06/2017 9:22 AM EST) Thyroid Stimulating Hormone 0.36 0.27 - 4.20 mlU/ML [facility] Blood specimen (specimen) 02/06/2017 9:22 AM EST 02/06/2017 9:33 AM EST Narrative Resulting Agency Comment Spec In Lab Natalie Harris BICYCLE ASSEMBLER CHEMISTRY ORDERABLES [facility] [place] [place] [address] documented in this encounter Visit Diagnoses Diagnosis Acquired hypothyroidism Unspecified hypothyroidism documented in this encounter Care Teams Hazard Mitigation Officer Relationship Specialty Start Date End Date Marck Brody DO [address] [place] [address] PCP - General 02/08/10 10/12/21 documented as of this encounter
--- OUTSIDE RECORDS SUMMARY | 2023-12-08 20:05 | XMS_ITS | Encounter Summary ---
Author Organization [facility] [place] [address] Care Team Providers Care Process Consultant Name Role Phone Marck Brody DO Primary Care Provider Encounter Details Date Type Department Care Team (Late st Contact Info) Description 09/20/2017 Telephone Hematology [place] [phone] Mesha Briggs, RN Social History Tobacco Use Types Packs/Day [...] encounter Miscellaneous Notes * Telephone Encounter - Mesha Briggs, RN - 09/20/2017 1:34 PM EDT Message received from clinical secretary specialist: Patient called she reports feeling that her thyroid mightbe hyperactive at the moment. She is wondering if she should get it tested. She can be reached at [phone]. Call placed to patient who explains that she feels like her thyroid is off. Has been having really low energy- worse over the last few weeks. Also notes changes in her period which has happened to her in the past when her TSH has been low. TSH was last checked on 03/22/17 and it was low at 0.24. She has been taking synthroid 112mcg consistently- notes that she wakes up at 2am every morning to take it and then goes back to sleep to make sure that there are no interactions. Patient has appt at [facility] on 10/05 and she is wondering if she could have her TSH redrawn then to make sure that it's not still too low. Spoke w/Ligia Corbett APRN who recommends that patient be seen sooner than 10/05 by her PCP and have her TSH redrawn. If she doesn't have a PCP or cant get an appointment we can draw it on 10/05 as long as she doesn't develop rapid or irregular heartbeat in the interim Updated patient on the above. Patient wondering if we could send orders for TSH to [facility] and she would have this drawn either tomorrow or 09/24 and then if the values are not off she would schedule any appt with her PCP for further workup of symptoms. Spoke w/Ran Corbett APRN updated her on the above request. She is in agreement. Orders placed. Message sent to clinical secretary specialist to fax lab orders. Updated patient on the above. Pt in agreement with plan and knows to call clinic with any concerns and/or questions. documented in this encounter Plan of Treatment Not on file documented as of this encounter Visit Diagnoses Diagnosis Hypothyroidism (acquired) Unspecified hypothyroidism documented in this encounter Care Teams Process Consultant Relationship Specialty Start Date End Date Marck Brody DO [address] [place] [address] [address] [place] [address] PCP - General 02/08/10 10/12/21 documented as of this encounter
--- OUTSIDE RECORDS SUMMARY | 2023-12-08 20:05 | XMS_ITS | Encounter Summary ---
[place] [address] Care Team Providers Care Production Technologist Name Role Phone Marck Brody DO Primary Care Provider Encounter Details Date Type Department Care Team (Late st Contact Info) Description 01/14/2018 Telephone [place] [phone] Latoya Molina Social History Tobacco Use Types [...] * Telephone Encounter - Latoya Molina - 01/14/2018 3:[address] scan safety questions answered. documented in this encounter Plan of Treatment Not on file documented as of this encounter Visit Diagnoses Not on filedocumented in this encounter Care Teams Production Technologist Relationship Specialty Start Date End Date Marck Brody DO [address] [place] [address] [address] [place] [address] PCP - General 02/08/10 10/12/21 documented as of this encounter
--- OUTSIDE RECORDS SUMMARY | 2023-12-08 20:05 | XMS_ITS | Encounter Summary ---
Author Organization [facility] [place] [address] Care Team Providers Care Electric Golf Cart Repairers Name Role Phone Marck Brody DO Primary Care Provider [phone] Encounter Details Date Type Department Care Team (Late st Contact Info) Description 03/25/2018 Telephone [place] [phone] Brenna Bryant Social History Tobacco Use Types Packs/Day Years [...] on filedocumented in this encounter Care Teams Electric Golf Cart Repairers Relationship Specialty Start Date End Date Marck Brody DO [address] [place], [place] [address] PCP - General 02/08/10 10/12/21 documented as of this encounter
--- OUTSIDE RECORDS SUMMARY | 2023-12-08 20:05 | XMS_ITS | Encounter Summary ---
Author Organization [facility] [address] Care Team Providers Care Manager Business Intelligence Name Role Phone Marck Brody DO Primary Care Provider Encounter Details Date Type Department Care Team (Late st Contact Info) Description 01/07/2018 11:45 AM EDT Office Visit [place] [address] Keyur Ng MD [facility] [place] [address] Pathological fracture of mandible with delayed healing, [...] - - Weight 45.4 kg (100 lb) 01/07/2018 12:00 PM EDT Height 157.5 cm (5' 2) 01/07/2018 12:00 PM EDT Body Mass Index 18.29 01/07/2018 12:00 PM EDT documented in this encounter Progress Notes * Keyur Ng MD - 01/07/2018 11:45 AM EDT [facility] mixer helper NEW PATIENT CONSULTATION I was asked to see Theresa Hollis in consultation by Dr. Lee for evaluation of left jaw pain History was obtained through review of the relevant records, discussion with referring physician and/or patient interview. This is a 47 y.o. female with history of oral scca and radiation therapy. She has had ORN and extractions in the past. Now with left jaw pain and swelling that started on Sunday. It was worse on Sunday and ENT department started Clindamycin. She now feels better. Some new numbness on the lower left side. PROBLEM LIST Patient Active Problem List Diagnosis [...] to Visit Medication Sig Dispense Refill ??? ibuprofen (ADVIL;MOTRIN) 100 mg/5 mL Suspension Take by mouth every 4 hours as needed for Fever. ??? clindamycin (CLEOCIN) 300 mg Capsule Take 1 capsule by mouth 3 times daily for 10 days. 30 capsule 0 ??? cevimeline (EVOXAC) 30 mg Capsule Take [...] Take 2 tablets by mouth daily. ??? clindamycin (CLEOCIN) 150 mg Capsule ??? albuterol 90 mcg/actuation HFA Aerosol Inhaler Inhale 2 puffs into the lungs every 4 hours as needed for Wheezing. (Patient not taking: Reported on 01/07/2018) 1 Inhaler 1 ??? levothyroxine (SYNTHROID) 112 mcg Tablet Take 1 tablet by mouth daily. (Patient not taking: Reported on 10/05/2017) 90 tablet 3 ??? acetaminophen (TYLENOL) 160 mg/5 mL Elixir [...] ??? Spinach Other (See Comments) wheezing ROS Pertinent positive findings discussed above. No other findings on review of constitutional visual, cardiovascular, respiratory, gastrointestinal, genitourinary, musculoskeletal, dermatologic, neurological, psychiatric, endocrine, hematologic or immunologic systems. PHYSICAL EXAMINATION Vitals: Height 157.5 cm (5' 2), weight 45.4 kg (100 lb). Body mass index is 18.29 kg/m??. General: No acute distress with Father today, pleasant Face: Normocephalic and atraumatic Eyes: Extraocular movement is full and intact. No dysconjugate gaze. No evidence of nystagmus. Periocularstructures and conjunctiva healthy without lesions. Ears: Normal exam of the external ear and canal. Nose: Normal external exam. Normal exam of the septum and turbinates. Mouth: Lips and gingiva pink, tacky, without lesions. Tongue and floor of mouth soft without lesions or masses. Hard palate without lesions. Tenderness to palpation of left mandibular body and angle. No gross interfragmentary mobility of her edentulous left body. Her occlusion appears stable. Pharynx: Normal exam of the tonsils, tonsillar fossa, soft palate, lateral pharyngeal wall, and posterior pharynx. Salivary: Normal exam of the parotid and submandibular glands. Neck: Soft supple without significant lymphadenopathy. No overlying erythema. Thyroid gland without masses or asymmetry. Trachea midline without deviation. Resp: Breathing comfortably without stridor or retractions. Normal respirations. CV: Normal carotid pulses. MSK: Normal neck range of motion, no trismus. Skin: Skin survey of the head and neck is without concerning lesion. Neurologic: Cranial nerves II-XII intact and symmetric except for mild left V3 hypoesthesia. AxOx3, responds appropriately to questions. Psych: Normal mood and affect. PROCEDURES None REVIEW OF IMAGES/STUDIES Panorex image was taken today revealing evidence of a left mandibular body nondisplaced pathologic fracture. CT scan from March was reviewed which revealed evidence of osteoradionecrosis with a healing pathologic fracture. 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 Recommend continuing clindamycin as she is. She does note itchiness and issue with penicillin in the past. I will speak with Dr. Donis regarding treatment moving forward but she may need to consider having a vascularized flap and resection of the affected mandible. I appreciate the opportunity to be involved in Ms. Hollis's care. Keyur Ng MD, DMD, FACS 01/07/2018 documented in this encounter Plan of Treatment Not on file documented as of this encounter Visit Diagnoses Diagnosis Pathological fracture of mandible with delayed healing, subsequent encounter Osteoradionecrosis of jaw Other specified disease of the jaws documented in this encounter Care Teams Manager Business Intelligence Relationship Specialty Start Date End Date Marck Brody DO [address] [facility] [place] [address] PCP - General 02/08/10 10/12/21 documented as of this encounter
--- OUTSIDE RECORDS SUMMARY | 2023-12-08 20:05 | XMS_ITS | Encounter Summary ---
[place] [address] Care Team Providers Care Certified Pathology Assistant Name Role Phone Marck Brody DO Primary Care Provider [phone] Encounter Details Date Type Department Care Team (Late st Contact Info) Description 01/15/2018 Telephone [place] [phone] Latoya Molina Social History Tobacco Use Types [...] * Telephone Encounter - Latoya Molina - 01/15/2018 3:08 PM EDT Left message of scheduled appointments on 01.21.[address] scan and 1145 with [facility]. documented in this encounter Plan of Treatment Not on file documented as of this encounter Visit Diagnoses Not on filedocumented in this encounter Care Teams Certified Pathology Assistant Relationship Specialty Start Date End Date Marck Brody DO [address] [place] [address] [address] [place] [address] PCP - General 02/08/10 10/12/21 documented as of this encounter
--- OUTSIDE RECORDS SUMMARY | 2023-12-08 20:05 | XMS_ITS | Encounter Summary ---
Author Organization [facility] [address] Care Team Providers Care Mult Au Matic Operator Name Role Phone Marck Brody DO Primary Care Provider Reason for Visit * Reason Comments Follow-up ear wax removal * Consultation (Routine) - Closed Specialty Diagnoses / Procedures Referred By Shirley cuevas Referred To Contact Otolaryngology Diagnoses impacted cerumen of both ears Kristen Urena MD [address] [place] [address] Roberth Lee MD [facility] [place] [address] Referral ID Status Reason Start Date Expiration Date V isits Requested Visits Authorized [id number] Closed Consult, Test & Treat [facility] 11/14/2016 11/14/2017 1 1 Encounter Details Date Type Department Care Team (Late st Contact Info) Description 12/06/2016 2:00 PM EDT Office [place] [address] Suma Vang APRN [facility] [place] [address] Bilateral impacted cerumen Social History Tobacco Use Types Packs/Day Years [...] - Inhaled Oxygen Concentration - - Weight 46.5 kg (102 lb 9.6 oz) 12/06/2016 2:02 P M EDT Height 160 cm (5' 3) 12/06/2016 2:02 PM EDT Body Mass Index 18.17 12/06/2016 2:02 PM EDT documented in this encounter Progress Notes * Suma Vang APRN - 12/06/2016 2:00 PM EDT Otolaryngology Clinic Note Date of Visit: 12/06/2016 Patient: Theresa Hollis ([id number]; 1970) Reason for Visit: Theresa is a46 y.o. female with cerumen impaction. Interval History: History of bilateral cerumen impaction due to EAC stenoses and history of radiation treatment for head/neck cancer. Here for cerumen disimpaction under otomicroscope in Otolaryngology Clinic. Procedure - Otologic Microscope Examination: External auditory canal visualized under the operating microscope and impacted cerumen was disimpacted using wire-loop cerumen curette, suction and alligator forceps. Patient tolerated the procedure well without complication. Impression: Cerumen impaction, bilateral. Plan: Successful cerumen disimpaction performed, as above. documented in this encounter Plan of Treatment Not on file documented as of this encounter Visit Diagnoses Diagnosis Bilateral impacted cerumen Impacted cerumen documented in this encounter Care Teams Mult Au Matic Operator Relationship Specialty Start Date End Date Marck Brody DO [address] [place] [address] [address] [facility] [place] [address] PCP - General 02/08/10 10/12/21 documented as of this encounter
--- OUTSIDE RECORDS SUMMARY | 2023-12-08 20:05 | XMS_ITS | Encounter Summary ---
Author Organization [facility] [place] [address] Care Team Providers Care Acid Condenser Name Role Phone Marck Brody DO Primary Care Provider [phone] Encounter Details Date Type Department Care Team (Late st Contact Info) Description 03/20/2018 Telephone [place] [phone] Jada Kowalski LPN Social History Tobacco Use Types Packs/Day [...] encounter Miscellaneous Notes * Telephone Encounter - Jada Kowalski LPN - 03/20/2018 8:38 AM EST Theresa called the clinic stating, I cant use the lidocaine solution prescribed. I tried it on 03/18 and 03/19/2018. It caused a burning pain, like when you burn your mouth on hot food or drink. I am unable to tolerate the solution, is there another medication I can try? Message communicated to provider for review and plan documented in this encounter Plan of Treatment Not on file documented as of this encounter Visit Diagnoses Not on filedocumented in this encounter Care Teams Acid Condenser Relationship Specialty Start Date End Date Marck Brody DO [address] [place] [address] PCP - General 02/08/10 10/12/21 documented as of this encounter
--- OUTSIDE RECORDS SUMMARY | 2023-12-08 20:05 | XMS_ITS | Encounter Summary ---
[place] [address] Care Team Providers Care Dag Sprayer Name Role Phone Marck Brody DO Primary Care Provider Encounter Details Date Type Department Care Team (Late st Contact Info) Description 02/12/2017 Telephone [place] [phone] Natalie Harris APRN [address] [place] [address] [place] [address] Social History Tobacco Use Types [...] Telephone Encounter - Natalie Harris APRN - 02/12/2017 1:13 PM EST Call to patient to review the results of her recent carotid US which was normal documented in this encounter Plan of Treatment Not on file documented as of this encounter Visit Diagnoses Not on filedocumented in this encounter Care Teams Dag Sprayer Relationship Specialty Start Date End Date Marck Brody DO [address] [place] [address] PCP - General 02/08/10 10/12/21 documented as of this encounter
--- OUTSIDE RECORDS SUMMARY | 2023-12-08 20:05 | XMS_ITS | Encounter Summary ---
Author Organization [facility] [place] [address] Care Team Providers Care Wrecking Supervisor Name Role Phone Marck Brody DO Primary Care Provider [phone] Encounter Details Date Type Department Care Team (Late st Contact Info) Description 03/22/2017 Orders [place] [phone] Neo Sherman RN Social History Tobacco Use Types Packs/Day [...] on filedocumented in this encounter Care Teams Wrecking Supervisor Relationship Specialty Start Date End Date Marck Brody DO [address] [place], [place] [address] PCP - General 02/08/10 10/12/21 documented as of this encounter
--- OUTSIDE RECORDS SUMMARY | 2023-12-08 20:05 | XMS_ITS | Encounter Summary ---
Author Organization [facility] [place] [address] Care Team Providers Care Locomotive Observer Name Role Phone Marck Brody DO Primary Care Provider [phone] Encounter Details Date Type Department Care Team (Latest Contact Info) Description 01/21/2018 10:30 AM EST Office Visit [place] [address] Keyur Ng MD [facility] [address] Osteoradionecrosis of jaw; Pathological fracture of mandible with delayed healing, subsequent encounter Social History Tobacco Use Types Packs/Day [...] Progress Notes * Keyur Ng MD - 01/21/2018 10:30 AM EST Spoke with patient over the phone to review CT scan findings. Evidence of possible pathologic fracture and ORN. She has an appt with Dr. Lee next Sunday. I will review with Dr. Paydarfar regarding potential surgical options vs. Continuing to observe. She will hold off on antibiotics for now until she comes in next week. Keyur Ng MD documented in this encounter Plan of Treatment Not on file documented as of this encounter Visit Diagnoses Diagnosis Osteoradionecrosis of jaw Other specified disease of the jaws Pathological fracture of mandible with delayed healing, subsequent encounter documented in this encounter Care Teams Locomotive Observer Relationship Specialty Start Date End Date Marck Brody DO [address] [place] [address] PCP - General 02/08/10 10/12/21 documented as of this encounter
--- OUTSIDE RECORDS SUMMARY | 2023-12-08 20:05 | XMS_ITS | Encounter Summary ---
Author Organization [facility] Address [facility] [place] [address] Care Team Providers Care Bomb Loader Name Role Phone Marck Brody DO Primary Care Provider [phone] Reason for Visit * Reason Comments Follow-up Encounter Details Date Type Department Care Team (Late st Contact Info) Description 12/06/2016 4:30 PM EDT [place] [address] [facility] [address] [facility] [place] [address] Food allergy; Oral allergy syndrome, initial encounter Social History Tobacco Use Types Packs/Day [...] Sign Reading Time Taken Comments Blood Pressure 117/71 12/06/2016 4:29 PM EDT Pulse 88 12/06/2016 4:29 PM EDT Temperature - - Respiratory Rate 20 12/06/2016 4:29 PM EDT Oxygen Saturation - - Inhaled Oxygen Concentration - - Weight 46.5 kg (102 lb 8.2 oz) 12/06/2016 4:29 P M EDT Height 160 cm (5' 2.99) 12/06/2016 4:29 PM EDT Body Mass Index 18.16 12/06/2016 4:29 PM EDT documented in this encounter Patient Instructions * Patient Instructions* Gabrielle Ortiz MD - 12/06/2016 4:30 PM EDT Allergy testing negative to egg, mushroom, black pepper. Did not have spinach to test. Testing was positive to birch tree. It is possible that some of your symptoms could be due to oral allergy syndrome. Oral allergy syndrome: this is a mild form of food allergy that occurs in people with environmentalallergies to pollens. It occurs when your immune system reacts to food proteins that cross-react with pollen allergens - usual symptoms are itchy mouth or throat with some fruits and vegetables. Somepeople get throat tightness. It is very rare for this to progress to a serious reaction. Some people are able to tolerate the foods when they are cooked, peeled, or canned which usually breaks down the cross-reactive protein in the food. - avoid all versions of the food that triggers symptoms - try eating cooked, peeled, or canned versions of the foods - if you can tolerate these you can keep them in your diet. If these give you symptoms, avoid the food completely - over time you may develop similar symptoms with other fruits/vegetables Using the chart provided, see if you can identify foods that might be triggering your oral and throat symptoms. This can help you narrow down possible triggers so you can avoid them. In oral allergy syndrome, testing is usually negative so not very helpful. If you notice food triggers that are not on this list, we can try testing to them at a later date. documented in this encounter Progress Notes * Gabrielle Ortiz MD - 12/06/2016 4:30 PM EDT CC: new food reactions HPI: Theresa Hollis is a 46 y.o. female with PMH tongue cancer s/p resection, radiation and chemopresenting for follow up of food allergies. She was last seen on October 10, 2016 at which time she had positive testing to shellfish and bony fish. She was recommended to avoid all fish. She is here today because she has identified additional foods that are bothering her. She states that when she eats eggs her throat will feel tight and she will get a hoarse voice. This happened with a poached egg recently and she is not sure if it was the eggs or the Black pepper. She has noticed symptoms with other things that contain egg but the symptoms are not as severe. For example, pancakes have given her symptoms. She is not sure if fully baked egg bothers her. She also states that she is a vegetariannow and she ate a meat substitute cori that had egg and they gave her similar symptoms though milder. With spinach she reports that she got wheezy. She also states that she had wheezing after eatingpizza and she thought it could be due to mushrooms because there were a lot of mushrooms on the pizza. They also serve seafood at this restaurant and she wondered if it could be contamination. ROS: per HPI, otherwise negative. Patient Active Problem List Diagnosis Code ??? Hypothyroidism (acquired) E03.9 ??? Tongue cancer C02.9 ??? Tinnitus H93.19 ??? History of tongue cancer Z85.810 ??? Radiation injury T66.XXXA ??? DIFFICULT AIRWAY T88.4XXA ??? Periodontal disease K05.6 Past Medical History: Diagnosis Date ??? Allergic rhinitis ??? Cancer of head, face, and neck ??? Food allergy ??? Hypothyroidism No outpatient prescriptions have been marked as taking for the 12/06/16 encounter (Office Visit) with Gabrielle Ortiz MD. PHYSICAL EXAM: BP 117/71 Pulse 88 Resp 20 Ht 160 cm (5' 2.99) Wt 46.5 kg (102 lb 8.2 oz) BMI 18.16 kg/m2 Gen: AAOx3, no acute distress HEENT: Tympanic membranes clear, no lesions, erythema, or drainage. Conjunctiva not injected. Nasalpassages show pale, enlarged turbinates bilaterally. OP clear without erythema or cobblestoning. partial tongue resection NECK: supple, no lymphadenopathy CVS: RRR, no m/r/g LUNGS: CTAB, no wheezing or rales ABD: soft, non-tender, non-distended SKIN: no rashes EXTREMITIES: warm and well-perfused, no edema SKIN TESTING Histamine 3, 6 Saline 0, 2 Glycerin 2, 3 Egg (-) mushroom (-) Black pepper (-) FOOD CROSS-REACTIVE POLLENS: Orchard grass (-) Frank grass (-) Birch (+) Mugwort (-) Ragweed (-) ASSESSMENT/PLAN: 46 y.o. female with PMH tongue cancer s/p resection, radiation and chemo with fish and shellfish reaction now noting more oral symptoms with other foods and sometimes wheezing. Testing to possible triggers negative. Testing to birch was positive though. 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 This includes spices which may be present in things like pizza sauce. Counseled the following: Oral allergy syndrome: this is a mild form of food allergy that occurs in people with environmentalallergies to pollens. It occurs when your immune system reacts to food proteins that cross-react with pollen allergens - usual symptoms are itchy mouth or throat with some fruits and vegetables. Somepeople get throat tightness. It is very rare for this to progress to a serious reaction. Some people are able to tolerate the foods when they are cooked, peeled, or canned which usually breaks down the cross-reactive protein in the food. - avoid all versions of the food that triggers symptoms - try eating cooked, peeled, or canned versions of the foods - if you can tolerate these you can keep them in your diet. If these give you symptoms, avoid the food completely - over time you may develop similar symptoms with other fruits/vegetables Using the chart provided (uptodate OAS chart), see if you can identify foods that might be triggering your oral and throat symptoms. This can help you narrow down possible triggers so you can avoid them. In oral allergy syndrome, testing is usually negative so not very helpful. If you notice food triggers that are not on this list, we can try testing to them at a later date. RTO 6 months Gabrielle Ortiz MD documented in this encounter Plan of Treatment Not on file documented as of this encounter Procedures Procedure Name Priority Date/Time Associated Diagnosis Comments ALLERGY SCAN 12/06/2016 12:00 AM EDT documented in this encounter Results * SCAN DOC: ALLERGY (12/06/2016 12:00 AM EDT) Narrative 12/06/2016 12:00 AM EDT Ordered by an unspecified provider. Scanning Provider MEDIA MGR SCAN EXT O RDR/RSLT documented in this encounter Visit Diagnoses Diagnosis Food allergy Other adverse food reactions, not elsewhere classified Oral allergy syndrome, initial encounter documented in this encounter Care Teams Bomb Loader Relationship Specialty Start Date End Date Marck Brody DO [address] [place] [address] PCP - General 02/08/10 10/12/21 documented as of this encounter
--- OUTSIDE RECORDS SUMMARY | 2023-12-08 20:05 | XMS_ITS | Encounter Summary ---
Author Organization [facility] [address] Care Team Providers Care Transport Company Manager Name Role Phone Marck Brody DO Primary Care Provider [phone] Encounter Details Date Type Department Care Team (Late st Contact Info) Description 03/29/2017 Telephone [place] [id number] Aym Trotter, RN Social History Tobacco Use Types [...] Telephone Encounter - Amy Trotter RN - 03/29/2017 10:23 AM EST Theresa called and left a message on the organizational development specialist line at 6:42 AM to inform us that she is experiencing pain in her right jaw with twinges and a tender spot under her jaw by her chin. Upon calling vickie on her mobile phone, Theresa (who is at work) states that the right side of her jaw does not open as much as it normally does; her jaw does not feel misaligned; her right molar might be bad, but she cannot tell; and that she has pain with eating soft/blended foods, but was able to eat breakfast this morning. She has been using Tylenol and ice to control the pain, which is worse at night. Currently she has 3/10 pain, which she characterizes as ???just annoying and nagging?? . The pain startedtwo nights ago, but was mild; last night was more painful than the previous night. She wonders whether someone would want to see her to evaluate her jaw for fracture. She states that she cannot travel down to [place] today due to the weather. I explained that since her pain is well-controlled and she is able to eat soft foods, immediate evaluation may not be necessary. I said that I would take her information to Dr. Lee, who may want to updated imaging or a maxillofacial consult in order to further evaluate her jaw. Patient verbalizes understanding of the plan of care. documented in this encounter Plan of Treatment Not on file documented as of this encounter Visit Diagnoses Not on filedocumented in this encounter Care Teams Transport Company Manager Relationship Specialty Start Date End Date Marck Brody DO [address] [place] [address] PCP - General 02/08/10 10/12/21 documented as of this encounter
--- OUTSIDE RECORDS SUMMARY | 2023-12-08 20:05 | XMS_ITS | Encounter Summary ---
Author Organization [facility] Address [facility] [place] [address] Care Team Providers Care Metal Bonding Worker Name Role Phone Marck Brody DO Primary Care Provider [phone] Reason for Visit * Reason Comments Follow-up Allergies Encounter Details Date Type Department Care Team (Late st Contact Info) Description 10/05/2017 11:00 AM EDT [place] [address] Gabrielle Ortiz MD [facility] DR RASHEED ESPINOZA[place] [address] Chronic mucus hypersecretion, respiratory; Food intolerance Social History Tobacco Use Types Packs/Day Years [...] Reading Time Taken Comments Blood Pressure 106/65 10/05/2017 10:44 AM EDT Pulse 88 10/05/2017 10:44 AM EDT Temperature - - Respiratory Rate - - Oxygen Saturation - - Inhaled Oxygen Concentration - - Weight 46.7 kg (103 lb) 10/05/2017 10:44 AM EDT Height 157.5 cm (5' 2) 10/05/2017 10:44 AM EDT Body Mass Index 18.84 10/05/2017 10:44 AM EDT documented in this encounter Patient Instructions * Patient Instructions* Gabrielle Ortiz MD - 10/05/2017 11:00 AM EDT Continue using chlorpheniramine prior to meals as needed to improve mucus production. Continue to reintroduce foods at home carefully, as you have been doing. OK to try spinach, mushrooms, chicken again. Continue to carry epipen for now. I will reach out to your other physicians to ask if they have any experience with this as a delayedside effect from chemo and radiation. It may also be helpful to see if a specialist in [place] can provide better answers for you, though I am not sure who specifically can best answer this question. I don't think this is a food allergy and more of an intolerance to food when eating. Another option to try in the future would be reflux medication. Sometimes reflux can trigger mucus and cough with eating. Return in 6 months documented in this encounter Progress Notes * Gabrielle Ortiz MD - 10/05/2017 11:00 AM EDT CC: follow up HPI: Theresa Hollis is a 47 y.o. female with PMH tongue cancer s/p chemo/rad/resection, hypothyroidism presenting for follow up of possible food allergies. She was last seen on 10/12/2015, at which time she continued to experience excessive mucus production and wheezing with more foods. At this p oint I questioned the diagnosis of food allergy and thought this was more of an intolerance or perhaps related to her history of head and neck cancer and radiation. I recommended some treatments thataimed to dry up secretions such as chlorpheniramine and Spiriva. Since her last visit the patient reports that she got chlorpheniramine but had to use the 3 mg tablet because the 12 mg not covered by her insurance. She reports that she used this 3 times a day but it made her feel a bit dizzy and she also got constipated so she is now only taking it about 30 minutes to 1 hour before a meal that she would consider adventurous. She states that this has been helpful for her. She is only taking one 3 mg tablet. She has tried to reintroduce some foods with success and she has been able to eat eggs, seafood, crab, john, lobster, scallop, and clams. She has also been able to eat scrambled eggs. She has not tried reintroducing spinach, mushrooms, or chicken y et. She continues to have rhinitis, retching, mucus, and expectoration with processed foods even when she was taking the medication 3 times a day. She notes that a larger quantity of these is worse than small amounts which are less problematic for her. She tried the Spiriva daily and did not noticea difference on this and so stopped it after a few days. She has not been trying to avoid sulfites because she felt like her symptoms were not reliably related to processed foods. She continues to carry an inhaler and EpiPen but has not tried using the albuterol inhaler yet. She has not had any episodes of chest tightness. Things are doing much better for her and she is okay with her current regimen. She has no new symptoms and is not on any new medications. ROS: per HPI, otherwise negative. Patient Active Problem List Diagnosis Code ??? Hypothyroidism (acquired) E03.9 ??? Tongue cancer C02.9 ??? Tinnitus H93.19 ??? History of tongue cancer Z85.810 ??? Radiation injury T66.XXXA ??? DIFFICULT AIRWAY T88.4XXA ??? Periodontal disease K05.6 Past Medical History: Diagnosis Date ??? Allergic rhinitis ??? Cancer of head, face, and neck ??? Food allergy Diagnosis in question ??? Hypothyroidism Outpatient Prescriptions Marked as Taking for the 10/05/17 encounter (Office Visit) with Arnoldo Ortiz MD Medication Sig Dispense Refill ??? levothyroxine (SYNTHROID) 100 mcg Tablet TAKE ONE TABLET BY MOUTH EVERY DAY 0 ??? cevimeline (EVOXAC) 30 mg Capsule Take 1 capsule by mouth 3 times daily. 90 capsule 12 ??? calcium carbonate (TUMS) 200 mg calcium (500 mg) Tablet, Chewable Take 2 tablets by mouth daily. PHYSICAL EXAM: BP 106/65 Pulse 88 Ht 157.5 cm (5' 2) Wt 46.7 kg (103 lb) BMI 18.84 kg/m2 Gen: AAOx3, no acute distress HEENT: Tympanic membranes clear, no lesions, erythema, or drainage. Conjunctiva not injected. Nasalpassages show pink turbinates bilaterally. OP clear without erythema or cobblestoning, post surgical changes NECK: supple, no lymphadenopathy CVS: RRR, no m/r/g LUNGS: CTAB, no wheezing or rales ABD: soft, non-tender, non-distended SKIN: no rashes EXTREMITIES: warm and well-perfused, no edema ASSESSMENT/PLAN: 47 y.o. female with excessive mucus production with a wide range of foods. Chlorpheniramine used prior to triggers has been helpful and seems to have reduced mucus production, which was our goal withthis. I do not know what is triggering her symptoms but given her ability to reintroduce a lot of the foods this supports my most recent suspicion that this is not a food allergy. I will reach out toher oncologists and see if they have ever seen excessive mucus production this long after radiationtherapy. Another thing to consider would be reflux. Pt has never tried reflux medication. She does state that she feels radiation affected esophagus and has to eating sitting straight up. If she leans forward food may stick and she can get reflux sensation. I think it would be worth pursuing the question of reflux as a trigger, but pt OK with where things are now with antihistamine helping. States she might consider GI referral in the future when we follow up again. At next visit, then, can consider a trial of reflux meds and GI referral. - Continue using chlorpheniramine prior to meals as needed to improve mucus production. - Continue to reintroduce foods at home carefully, as you have been doing. OK to try spinach, mushrooms, chicken again. - Continue to carry epipen for now. - if no answers after GI referral, it may also be helpful to see if a specialist in [place] can provide better answers for her, though I am not sure who specifically can best answer this question presuming it is related to her cancer treatment. Return in 6 months Gabrielle Ortiz MD documented in this encounter Plan of Treatment Not on file documented as of this encounter Visit Diagnoses Diagnosis Chronic mucus hypersecretion, respiratory Other and unspecified diseases of upper respiratory tract Food intolerance Other specified intestinal malabsorption documented in this encounter Care Teams Metal Bonding Worker Relationship Specialty Start Date End Date Marck Brody DO [address] [place] [address] PCP - General 02/08/10 10/12/21 documented as of this encounter
--- OUTSIDE RECORDS SUMMARY | 2023-12-08 20:05 | XMS_ITS | Encounter Summary ---
Author Organization [facility] Address [facility] [place] [address] Care Team Providers Care Senior Operations Manager Name Role Phone Marck Brody DO Primary Care Provider [phone] Reason for Visit * Reason Comments Allergy Testing Encounter Details Date Type Department Care Team (Late st Contact Info) Description 02/06/2017 8:30 AM EST [place] [address] Gabrielle Ortiz MD [facility] [address] [place] [address] Wheezing; Food allergy Social History Tobacco Use Types Packs/Day Years [...] Sign Reading Time Taken Comments Blood Pressure 110/72 02/06/2017 8:31 AM EST Pulse 80 02/06/2017 8:31 AM EST Temperature - - Respiratory Rate 22 02/06/2017 8:31 AM EST Oxygen Saturation 100% 02/06/2017 8:31 AM EST Inhaled Oxygen Concentration - - Weight 45.4 kg (100 lb) 02/06/2017 8:31 AM EST Height 160 cm (5' 3) 02/06/2017 8:31 AM EST Body Mass Index 17.71 02/06/2017 8:31 AM EST documented in this encounter Patient Instructions * Patient Instructions* Gabrielle Ortiz MD - 02/06/2017 8:30 AM EST Egg test mildly positive. I recommend avoiding lion egg. OK to continue to eat baked egg (as an ingredient in baked goods) since you have not had problems with this before. In general, this means baked at 350'F for at least 30 minutes. Get blood test for spinach. Return in 6 months or sooner if problems. documented in this encounter Progress Notes * Gabrielle Ortiz MD - 02/06/2017 8:30 AM EST CC: follow up testing HPI: Theresa Hollis is a 46 y.o. female with PMH tongue cancer s/p resection/rad/chemo with fish and shellfish allergy presenting for follow up of food allergies. The patient was last seen on December 06, 2016. The patient is here today because she would like to see if she is allergic to spinach. She reports that if she eats spinach she feels wheezy. She also feels flushed. She states that the wheezing is located in her throat. She is also still suspicious of egg despite previous testing being negative and reports that on 2 occasions when she ate a fried egg she felt wheezy but has had no problems with baked eggs or with pancakes. She has no other new complaints and has not had a rash with any of these foods. She does feel a little wheezy when people are eating seafood nearby and wonders if this is normal. ROS: per HPI, otherwise negative. Patient Active Problem List Diagnosis Code ??? Hypothyroidism (acquired) E03.9 ??? Tongue cancer C02.9 ??? Tinnitus H93.19 ??? History of tongue cancer Z85.810 ??? Radiation injury T66.XXXA ??? DIFFICULT AIRWAY T88.4XXA ??? Periodontal disease K05.6 Past Medical History: Diagnosis Date ??? Allergic rhinitis ??? Cancer of head, face, and neck ??? Food allergy ??? Hypothyroidism Outpatient Prescriptions Marked as Taking for the 02/06/17 encounter (Office Visit) with Gabrielle Ortiz MD Medication Sig Dispense Refill ??? cevimeline (EVOXAC) 30 mg Capsule Take 1 capsule by mouth 3 times daily. 90 capsule 12 ??? levothyroxine (SYNTHROID) 112 mcg Tablet Take 1 tablet by mouth daily. 30 tablet 12 ??? calcium carbonate (TUMS) 200 mg calcium (500 mg) Tablet, Chewable Take 2 tablets by mouth daily. ??? acetaminophen (TYLENOL) 160 mg/5 mL Elixir Take 15 mg/kg/dose by mouth every 4 hours as needed for Fever. Reported on 02/24/2016 PHYSICAL EXAM: BP 110/72 (BP Location (NBP): Right arm, Patient Position: Sitting, BP Cuff Sizes: Adult (25-34 cm)) Pulse 80 Resp 22 Ht 160 cm (5' 3) Wt 45.4 kg (100 lb) SpO2 100% BMI 17.71 kg/m2 Gen: AAOx3, no acute distress HEENT: Tympanic membranes clear, no lesions, erythema, or drainage. Conjunctiva not injected. Nasalpassages show pale, enlarged turbinates bilaterally. OP clear without erythema or cobblestoning. postsurg changes on tongue NECK: supple, no lymphadenopathy CVS: RRR, no m/r/g LUNGS: CTAB, no wheezing or rales ABD: soft, non-tender, non-distended SKIN: no rashes EXTREMITIES: warm and well-perfused, no edema SKIN TESTING Histamine: 5, 10 Saline: 0, 3 Glycerin: 0, 3 Eg, 5 (positive) Spinach (fresh): Negative ASSESSMENT/PLAN: 46 y.o. female with food allergy to fish, shellfish, and egg. Also reports wheezing with spinach. Egg test mildly positive today, supporting diagnosis of allergy. I recommended avoiding lion egg. - OK to continue to eat baked egg (as an ingredient in baked goods) since you have not had problemswith this before. In general, this means baked at 350'F for at least 30 minutes. - sent blood test for spinach to confirm - ADDENDUM: Spinach IgE positive at 0.93kU/L. Called to discuss results. LMTCO - ELR 02/12/2017 11:23 AM See phone note for discussion with patient - recommended avoid pancakes in addition to spinach bc she developed wheezing after pancake. - cont to avoid fish and shellfish and carry epipen Return in 6 months or sooner if problems. Gabrielle Ortiz MD documented in this encounter Plan of Treatment Not on file documented as of this encounter Procedures Procedure Name Priority Date/Time Associated Diagnosis Comments ALLERGY SCAN 02/06/2017 12:00 AM EST documented in this encounter Results * Miscellaneous Lab request (02/06/2017 9:22 AM EST) Label Request received in lab. [facility] Blood specimen (specimen) 02/06/2017 9:22 AM EST 02/06/2017 9:33 AM EST Narrative Resulting Agency Comment Spec In Lab Gabrielle Ortiz MD LAB SEND OUT ORDERAB LES [facility] [place] [address] * SCAN DOC: ALLERGY (02/06/2017 12:00 AM EST) Narrative 02/06/2017 12:00 AM EST Ordered by an unspecified provider. Scanning Provider MEDIA MGR SCAN EXT O RDR/RSLT documented in this encounter Visit Diagnoses Diagnosis Wheezing Food allergy Other adverse food reactions, not elsewhere classified documented in this encounter Care Teams Senior Operations Manager Relationship Specialty Start Date End Date Marck Brody DO [address] [place] [address] PCP - General 02/08/10 10/12/21 documented as of this encounter
--- OUTSIDE RECORDS SUMMARY | 2023-12-08 20:05 | XMS_ITS | Encounter Summary ---
[place] [address] Care Team Providers Care Cargo And Container Inspector Name Role Phone Marck Brody DO Primary Care Provider [phone] Encounter Details Date Type Department Care Team (Late st Contact Info) Description 03/13/2018 Telephone [place] [phone] Fabiola Gagnon Social History Tobacco Use Types [...] on filedocumented in this encounter Care Teams Cargo And Container Inspector Relationship Specialty Start Date End Date Marck Brody DO [address] [place], [place] [address] PCP - General 02/08/10 10/12/21 documented as of this encounter
--- OUTSIDE RECORDS SUMMARY | 2023-12-08 20:05 | XMS_ITS | Encounter Summary ---
Author Organization [place] [address] Care Team Providers Care Stock Counter Name Role Phone Marck Brody DO Primary Care Provider [phone] Encounter Details Date Type Department Care Team (Late st Contact Info) Description 11/15/2016 Orders Only [place] [address] Natalie Harris, PROFESSOR OF CRIMINAL JUSTICE [address] [place] [address] [place] [address] Cancer of head and neck Social History Tobacco Use Types Packs/Day [...] as of this encounter Results * (ABNORMAL) Comprehensive metabolic panel (non-fasting) (12/06/2016 12:37 PM EDT) Glucose 109 65 - 199 mg/dL [facility] Comment:Diabetes: >=200 mg/d L plus symptoms Blood Urea Nitrogen 6(L) 8 - 18 mg/dL [facility] Creatinine 0.84 0.70 - 1.20 mg/dL [facility] Comment: Please note that the pediatric reference intervals supplied above were not validated [place] [facility] [place] Results from pediatric patients should be interpreted in conjunction to the patient's age, height and muscle mass. Sodium 137 135 - 145 mmol/L [facility] Potassium 3.4(L) 3.5 - 5.0 mmol/L [facility] Comment: Please note: ??Patients with WBC >100,000 may have falsely elevated Potassium levels. ??For accurate Potassium quantification in these patients send serum separator tube (gold top) for subsequent determinations. ??Contact the Clinical Chemistry Laboratory if there are any questions. Chloride 98 98 - 107 mmol/L [facility] Carbon Dioxide 25 22 - 31 mmol/L [facility] Anion Gap 14 5 - 15 mmol/L [facility] Calcium 9.5 8.5 - 10.5 mg/dL [facility] Protein, Total 7.5 6.1 - 8.0 gm/dL [facility] Albumin 4.4 3.2 - 5.2 gm/dL [facility] Aspartate Aminotransferase 20 0 - 30 unit/L [facility] Alanine Aminotransferase 13 0 - 30 unit/L [facility] Alkaline Phosphatase 42 40 - 104 unit/L [facility] Bilirubin, Total 0.6 0.2 - 1.3 mg/dL [facility] Est Glomerular Filtration Rate >60 >=60 [facility] Comment: This estimated GFR (eGFR) value was calculated using the MDRD equation which has been validated on patients between the ages of 18 and 70. The MDRD should not be used to assess kidney function in patients < 18 years of age or in patients with extremes of body mass, or in patients with acute kidney failure. This value should be multiplied by 1.2 for patients. For further information please copy and paste the following links into your internet browser. http://[employer]/DHnkdep [email or web address] Blood specimen (specimen) 12/06/2016 12:37 PM EDT 12/06/2016 12:51 PM EDT Narrative Resulting Agency Comment Spec In Lab Natalie Harris PROFESSOR OF CRIMINAL JUSTICE CHEMISTRY ORDERABLES Performing Organization Address City/State/[facility] Co de Phone Number [facility] [place] [place] [address] documented in this encounter Visit Diagnoses Diagnosis Cancer of head and neck documented in this encounter Care Teams Stock Counter Relationship Specialty Start Date End Date Marck Brody DO [address] [place] [address] PCP - General 02/08/10 10/12/21 documented as of this encounter
--- OUTSIDE RECORDS SUMMARY | 2023-12-08 20:05 | XMS_ITS | Encounter Summary ---
Author Organization [facility] [place] [address] Care Team Providers Care Brush Holder Inspector Name Role Phone Marck Brody DO Primary Care Provider [phone] Encounter Details Date Type Department Care Team (Late st Contact Info) Description 03/22/2017 1:00 PM EST Office [place] [phone] Hermelindo Kearney PA [facility] [address] Malocclusion of teeth; H/O tongue cancer Social History Tobacco Use [...] - - Weight 46.3 kg (102 lb) 03/22/2017 12:52 PM EST Height - - Body Mass Index 18.07 02/06/2017 8:31 AM EST documented in this encounter Progress Notes * Hermelindo Kearney PA - 03/22/2017 1:00 PM EST [facility] Otolaryngology - Head and Neck Surgery Hermelindo Kearney PA-C 03/22/17 1:03 PM [place], [place] [address] Office Patient Name: Theresa Hlolis Date of : 1970 PCP: Marck Brody, DO Theresa Hollis is a 46 y.o. year old female with a history of: ?? Primary site: Left lateral tongue Stage: [id number] Surgery(ies): 10/31/06 - Hemiglossectomy, left neck dissection 1-5, skin graft, allograft Radiation: TREATMENT STARTED: 11/28/06 TREATMENT COMPLETED: 01/14/07 TREATMENT: The total maximum dose was 6600 cGy in 33 fractions. Volume reductions were instituted at 5400 cGy in 30 fractions &??6000 cGy in 30 fractions. Chemotherapy: Concurrent cisplatin ?? New concerns since last visit: Problem with her bite. Woke up in the middle of the night yesterday and felt bite was off, teeth not coming together as they used to. Bite was slightly off when head turned to the side or laying with her head on that side. Had no pain. Used travel pillow keep things straight while sleeping. Ate breakfast and brushed teeth without difficulty later that morning. No discomfort in TMJs. Upper left incisor feels as if hitting another tooth that it normally wouldn't Feels teeth around fracture are a little loose. Feels mental nerve area on left numbness improved since fracture; still a small area of numbness atlip. Denies recent fevers, chills, night sweats, unintended weight loss. Lower let premolar and lower incisors slightly mobile. Head and neck symptom survey >Symptom ?? >Comments Dysphagia n Odynophagia n Voice change or hoarseness n Breathing difficulties n Otalgia n Hemoptysis n ?? Adenopathy n Weight loss n Xerstomia y Baseline Trismus n Numbness n Loose Dentition y Baseline Taste disturbance n ?? ROS: 10 point Review of Systems was normal except for pertinent positives and negatives included in the History of Present Illness. Physical Examination: VITALS - Weight 46.3 kg (102 lb). GENERAL - Well dressed and well [...] Auricle normal exam. - External auditory canal normal exam. - Tympanic membrane chu and translucent. Right: - Auricle normal exam. - External auditory canal with cerumen impaction. NOSE - Patent anteriorly with adequate airflow, healthy pink mucosa. - Septum is midline without significant deviation. - Inferior turbinates normal exam. MOUTH - Post surgical changes noted. - Lips and gingiva pink, moist, with some erosion of the attached gingiva at the mandibular centralincisors. - Tongue with minimal mobility. - No exposed bone noted. - Lower left premolar and central incisors slightly mobile. - FOM on right soft; on the left with induration, stable, noted on prior exams. - Hard palate without lesions. PHARYNX - Post radiation changes noted. - Uvula is midline. - Oropharynx symmetric. NECK - No lymphadenopathy noted. - Post surgical and radiation changes and fibrosis noted. - Trachea midline without deviation. MUSCULOSKELETAL - Mild trismus. LUNGS - Clear to auscultation bilaterally without wheezes. HEART - Regular rate and rhythm without murmur. NEURO - Cranial nerves II-XII intact and symmetric. - Responds appropriately to questions. PSYCHE - Normal mood and affect. ASSESSMENT Theresa Castillo is a 46 year old female with a history of left lateral tongue cancer, s/p left hemiglossectomy, left ND levels 1-5, skin graft, with adjuvant chemoradiation; treatment finished 12/23. Had had some dental work with HBOT and extractions, and developed a fracture in her left mandibular body. This caused some numbness in the mental nerve distribution which has since improved. Discussed with patient that her history and clinical exam were reassuring that there was no new fracture. Discussed with patient monitoring of her symptoms going forward for any difficulties or changes with her jaw and bite, and that a CT scan could be performed at that time should any concerning symptoms arise. Discussed her continuing with her current diet and activities, and to avoid activities that increased her likelihood of a fall and trauma to her mandible. The patient expressed understanding of these points and agreement with the plan, and all questions that were asked were answered to the patient's satisfaction. RECOMMENDATIONS: Follow up per grid. Patient should call if her symptoms worsen, if new concerning symptoms arise, or if she has any question or concerns regarding their treatment. I consulted with Dr. Lee concerning this patient's case. Hermelindo Kearney PA-C 03/22/2017 [place], [place] [address] Office documented in this encounter Plan of Treatment Not on file documented as of this encounter Visit Diagnoses Diagnosis Malocclusion of teeth Malocclusion, unspecified H/O tongue cancer Personal history of malignant neoplasm of tongue documented in this encounter Care Teams Brush Holder Inspector Relationship Specialty Start Date End Date Marck Brody DO [address] [place] [address] PCP - General 02/08/10 10/12/21 documented as of this encounter
--- OUTSIDE RECORDS SUMMARY | 2023-12-08 20:05 | XMS_ITS | Encounter Summary ---
Author Organization [facility] Address [facility] [place] [address] Care Team Providers Care Oven Operator Name Role Phone Marck Brody DO Primary Care Provider [phone] Encounter Details Date Type Department Care Team (Late st Contact Info) Description 02/12/2017 [place] [address] Garbielle Ortiz MD [facility] [address] [address] Social History Tobacco Use Types Packs/Day Years [...] encounter Miscellaneous Notes * Telephone Encounter - Gabrielle Ortiz MD - 02/12/2017 4:15 PM EST Spoke with patient - spinach test was positive which fits with symptoms causing wheezing. Recommended avoidance. Pt states she developed cough after blueberry pancakes so has decided to avoid pancakes due to egg in it. Informed her I agreed with this choice and to just stick with fully baked egg. -ELR 02/12/2017 4:16 PM documented in this encounter Plan of Treatment Not on file documented as of this encounter Visit Diagnoses Not on filedocumented in this encounter Care Teams Oven Operator Relationship Specialty Start Date End Date Marck Brody DO [address] [place] [address] PCP - General 02/08/10 10/12/21 documented as of this encounter
--- OUTSIDE RECORDS SUMMARY | 2023-12-08 20:05 | XMS_ITS | Encounter Summary ---
Author Organization [facility] [place] [address] Care Team Providers Care Sales Operations Associate Name Role Phone Marck Brody DO Primary Care Provider Reason for Referral * Diagnostic Test (Routine) - Specialty Diagnoses / Procedures Referred By Contac t Referred To Contact Radiology Diagnoses Pathological fracture of mandible, sequela Jaw pain History of neck swelling Procedures CT Face w Contrast [facility] [address] [place] [phone] [facility] [place] [address] Referral ID Status Reason Start Date Expiration Date Visits Requested Visits Authorized [id number] Specialty Service Requested 01/15/2018 03/15/2018 1 1 * Diagnostic Test (Routine) - Closed Specialty Diagnoses / Procedures Referred By Contac t Referred To Contact Radiology Diagnoses Pathological fracture of mandible, sequela Procedures CT Neck Soft Tissue w Contrast (Generic) [facility] [address] [place] [phone] [facility] [place] [address] Referral ID Status Reason Start Date Expiration Date V isits Requested Visits Authorized [id number] Closed Specialty Service Requested 01/15/2018 03/15/2018 1 1 Reason for Visit * Diagnostic Test (Routine) - Closed Specialty Diagnoses / Procedures Referred By Contac t Referred To Contact Radiology Diagnoses Pathological fracture of mandible, sequela Procedures CT Neck Soft Tissue w Contrast (Generic) [facility] [address] [place] [address] [facility] [place] [address] Referral ID Status Reason Start Date Expiration Date V isits Requested Visits Authorized [id number] Closed Specialty Service Requested 01/15/2018 03/15/2018 1 1 Encounter Details Date Type Department Care Team (Latest Contact Info) Description 01/21/2018 7:39 AM EST - 01/21/2018 11:59 PM EST Hospital [place] [address] Keyur Ng MD [facility] [place] [address] Pathological fracture of mandible, sequela; Jaw pain; History of neck swelling Discharge Disposition: Home Social History Tobacco Use [...] every 4 hours as needed for Fever. clindamycin (CLEOCIN) 300 mg Capsule Take 1 capsule by mouth 3 times daily for 10 days. 30 capsule 1 01/15/2018 01/25/2018 cevimeline (EVOXAC) 30 mg CapsuleIndications:Ton boby cancer Take 1 capsule by mouth 3 times daily. 90 capsule 12 12/11/2017 12/20/2018 levothyroxine (SYNTHROID) 100 mcg Tablet TAKE ONE TABLET BY MOUTH EVERY DAY 0 09/24/2017 05/13/2018 EPINEPHrine 0.3 mg/0.3 mL Auto-Injector Inject 0.3 [...] mouth daily. 90 tablet 3 03/22/2017 01/28/2018 calcium carbonate (TUMS) 200 mg calcium (500 [...] Name Priority Date/Time Associated Diagnosis Comments CT FACIAL BONES W CONTRAST Routine 01/21/2018 8:11 AM EST Pathological fracture of mandible, sequela Jaw pain History of neck swelling CT NECK SOFT TISSUE W CONTRAST Routine 01/21/2018 8:11 AM EST Pathological fracture of mandible, sequela documented in this encounter Results * CT Face w Contrast (01/21/2018 8:11 AM EST) Anatomical Region Laterality Modality Head Computed Tomogra phy Impressions 01/21/2018 10:56 AM EST Limited study secondary to new metallic artifact about the mandible. Areas of greater lucency at the mandibular symphysis and posterior aspect of the left mandibular body with differential diagnosis that includes progression of osteonecrosis and infection Little interval change in appearance of partially healed left mandibular body fracture. No rim-enhancing collection or enlarging soft tissue mass Narrative 01/21/2018 10:56 AM EST EXAMINATION: CT NECK SOFT TISSUE W CONTRAST (GENERIC), CT FACE W CONTRAST CLINICAL HISTORY: history of pathologic fracture of mandible and history, history of oral scca and radiation therapy. ??She has had ORN and extractions in the past. ??Now with left jaw pain and swelling TECHNIQUE: Helical CT through the neck and face has been obtained during administration of 110 cc Omnipaque 350. COMPARISON: CT face of 04/16/2017 FINDINGS: There is been a left-sided modified radical neck dissection with extensive architectural distortion and numerous surgical clips. There is intermediate attenuation of the normal fatty planes making distinction of individual structures difficult. No bulky enhancing mass is present within the neck. Visualization of the mandible is somewhat limited secondary to presence of a metallic prosthesis. There appears to been interval removal of the bilateral medial mandibular incisors and right lateral mandibular incisor. At the mandibular symphysis there is greater bone loss. 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 No new or worsening fracture is present. There is no enlarging soft tissue mass or evidence of rim-enhancing collection There is slightly greater bone erosion at the posterior left mandibular body in the vicinity of the partially healed fracture. The parotid glands are of normal appearance. Paranasal sinuses are clear. The orbits are of normal appearance. Visible portions of the brain show no abnormality. Procedure Note Michael Geller MD - 01/21/2018 EXAMINATION: CT NECK SOFT TISSUE W CONTRAST (GENERIC), CT FACE WCONTRAST CLINICAL HISTORY: history of pathologic fracture of mandible andhistory, history of oral scca and radiation therapy. She has had ORN andextractions in the past. Now with left jaw pain and swelling TECHNIQUE: Helical CT through the neck and face has been obtained duringadministration of 110 cc Omnipaque 350. COMPARISON: CT face of 04/16/2017 FINDINGS: There is been a left-sided modified radical neck dissection withextensive architectural distortion and numerous surgical clips. There isintermediate attenuation of the normal fatty planes making distinction of individual structures difficult. No bulky enhancing mass is present within theneck. Visualization of the mandible is somewhat limited secondary to presence ofa metallic prosthesis. There appears to been interval removal of thebilateral medial mandibular incisors and right lateral mandibular incisor. At the mandibular symphysis there is greater bone loss. More posteriorly, thereis a mixed pattern of change in the area of osteoradionecrosis in the leftmandible body with somewhat increased sclerosis about the remaining leftmandibular premolar tooth and somewhat greater lucency along the posterior aspect ofthe aspect of the affected area. No new or worsening fracture is present.There is no enlarging soft tissue mass or evidence of rim-enhancing collectionThere is slightly greater bone erosion at the posterior left mandibular body inthe vicinity of the partially healed fracture. The parotid glands are of normal appearance. Paranasal sinuses are clear.The orbits are of normal appearance. Visible portions of the brain show no abnormality. IMPRESSION Limited study secondary to new metallic artifact about the mandible. Areas of greater lucency at the mandibular symphysis and posterior aspectof the left mandibular body with differential diagnosis that includes progressionof osteonecrosis and infection Little interval change in appearance of partially healed left mandibularbody fracture. No rim-enhancing collection or enlarging soft tissue mass Keyur Ng MD [facility] CT ORDERABLES * CT Neck Soft Tissue w Contrast (Generic) (01/21/2018 8:11 AM EST) Anatomical Region Laterality Modality Neck, Head Computed Tomogra phy Impressions 01/21/2018 10:56 AM EST Limited study secondary to new metallic artifact about the mandible. Areas of greater lucency at the mandibular symphysis and posterior aspect of the left mandibular body with differential diagnosis that includes progression of osteonecrosis and infection Little interval change in appearance of partially healed left mandibular body fracture. No rim-enhancing collection or enlarging soft tissue mass Narrative 01/21/2018 10:56 AM EST EXAMINATION: CT NECK SOFT TISSUE W CONTRAST (GENERIC), CT FACE W CONTRAST CLINICAL HISTORY: history of pathologic fracture of mandible and history, history of oral scca and radiation therapy. ??She has had ORN and extractions in the past. ??Now with left jaw pain and swelling TECHNIQUE: Helical CT through the neck and face has been obtained during administration of 110 cc Omnipaque 350. COMPARISON: CT face of 04/16/2017 FINDINGS: There is been a left-sided modified radical neck dissection with extensive architectural distortion and numerous surgical clips. There is intermediate attenuation of the normal fatty planes making distinction of individual structures difficult. No bulky enhancing mass is present within the neck. Visualization of the mandible is somewhat limited secondary to presence of a metallic prosthesis. There appears to been interval removal of the bilateral medial mandibular incisors and right lateral mandibular incisor. At the mandibular symphysis there is greater bone loss. 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 No new or worsening fracture is present. There is no enlarging soft tissue mass or evidence of rim-enhancing collection There is slightly greater bone erosion at the posterior left mandibular body in the vicinity of the partially healed fracture. The parotid glands are of normal appearance. Paranasal sinuses are clear. The orbits are of normal appearance. Visible portions of the brain show no abnormality. Procedure Note Michael Geller MD - 01/21/2018 EXAMINATION: CT NECK SOFT TISSUE W CONTRAST (GENERIC), CT FACE WCONTRAST CLINICAL HISTORY: history of pathologic fracture of mandible andhistory, history of oral scca and radiation therapy. She has had ORN andextractions in the past. Now with left jaw pain and swelling TECHNIQUE: Helical CT through the neck and face has been obtained duringadministration of 110 cc Omnipaque 350. COMPARISON: CT face of 04/16/2017 FINDINGS: There is been a left-sided modified radical neck dissection withextensive architectural distortion and numerous surgical clips. There isintermediate attenuation of the normal fatty planes making distinction of individual structures difficult. No bulky enhancing mass is present within theneck. Visualization of the mandible is somewhat limited secondary to presence ofa metallic prosthesis. There appears to been interval removal of thebilateral medial mandibular incisors and right lateral mandibular incisor. At the mandibular symphysis there is greater bone loss. More posteriorly, thereis a mixed pattern of change in the area of osteoradionecrosis in the leftmandible body with somewhat increased sclerosis about the remaining leftmandibular premolar tooth and somewhat greater lucency along the posterior aspect ofthe aspect of the affected area. No new or worsening fracture is present.There is no enlarging soft tissue mass or evidence of rim-enhancing collectionThere is slightly greater bone erosion at the posterior left mandibular body inthe vicinity of the partially healed fracture. The parotid glands are of normal appearance. Paranasal sinuses are clear.The orbits are of normal appearance. Visible portions of the brain show no abnormality. IMPRESSION Limited study secondary to new metallic artifact about the mandible. Areas of greater lucency at the mandibular symphysis and posterior aspectof the left mandibular body with differential diagnosis that includes progressionof osteonecrosis and infection Little interval change in appearance of partially healed left mandibularbody fracture. No rim-enhancing collection or enlarging soft tissue mass Keyur Ng MD IMG CT ORDERABLES documented in this encounter Visit Diagnoses Diagnosis Pathological fracture of mandible, sequela Jaw pain History of neck swelling documented in this encounter Administered Medications Inactive Administered Medications - up to 3 most recent administrations Medication Order MAR Action Action Date Dose Rate Site iohexol (OMNIPAQUE) 350 mg/mL solution 0-200 mL 0-200 mL, Intravenous, ONCE PRN, 1 dose, Starting on Sun01/21/18 at 0758, Until Sun01/21/18 at 0758, Per Protocol, Warning Vesicant/Irritant Medication Do not administer or Y-site with lactated ringers., Radiology Contrast, Routine Given 01/21/2018 7:58 AM EST 110 mLs documented in this encounter Care Teams Sales Operations Associate Relationship Specialty Start Date End Date Marck Brody DO [address] [place] [address] PCP - General 02/08/10 10/12/21 documented as of this encounter
--- OUTSIDE RECORDS SUMMARY | 2023-12-08 20:05 | XMS_ITS | Encounter Summary ---
Author Organization [place] [address] Care Team Providers Care Machine Umbrella Tipper Name Role Phone Marck Brody DO Primary Care Provider Encounter Details Date Type Department Care Team (Latest Contact Info) Description 03/22/2017 11:23 AM EST - 03/22/2017 11:59 PM EST Hospital Encounter [place] [phone] Hypothyroidism (acquired) Discharge Disposition: Home Social History Tobacco Use [...] Date End Date ipratropium (ATROVENT) 0.03 % [place], Non-Aerosol 10/10/2016 05/14/2017 FIRST-MOUTHWASH BLM [id number] mg/30 mL Mouthwash 02/27/2017 05/14/2017 levothyroxine (SYNTHROID) 112 mcg TabletIndications:Hypo thyroidism (acquired),Tongue [...] Priority Date/Time Associated Diagnosis Comments TSH Routine 03/22/2017 11:35 AM EST Hypothyroidism (acquired) documented in this encounter Results * (ABNORMAL) TSH (03/22/2017 11:35 AM EST) Thyroid Stimulating Hormone 0.23(L) 0.27 - 4.20 mlU/ML [facility] Blood specimen (specimen) 03/22/2017 11:35 AM EST 03/22/2017 11:43 AM EST Narrative Resulting Agency Comment Spec In Lab Marck Sherman MD CHEMISTRY ORDERABLES [facility] [place] [address] documented in this encounter Visit Diagnoses Diagnosis Hypothyroidism (acquired) Unspecified hypothyroidism documented in this encounter Care Teams Machine Umbrella Tipper Relationship Specialty Start Date End Date Marck Brody DO [address] [place] [address] [address] [place] [address] PCP - General 02/08/10 10/12/21 documented as of this encounter
--- OUTSIDE RECORDS SUMMARY | 2023-12-08 20:05 | XMS_ITS | Encounter Summary ---
Author Organization [facility] [place] [address] Care Team Providers Care Surfboard Maker Name Role Phone Marck Brody DO Primary Care Provider [phone] Reason for Referral * Diagnostic Test (Routine) - Specialty Diagnoses / Procedures Referred By Contac t Referred To Contact Radiology Diagnoses Pathological fracture of mandible, sequela Jaw pain History of neck swelling Procedures CT Face w Contrast [facility] [address] [place] [phone] [place] [address] Referral ID Status Reason Start Date Expiration Date Visits Requested Visits Authorized [id number] Specialty Service Requested 01/15/2018 03/15/2018 1 1 * Diagnostic Test (Routine) - Closed Specialty Diagnoses / Procedures Referred By Contac t Referred To Contact Radiology Diagnoses Pathological fracture of mandible, sequela Procedures CT Neck Soft Tissue w Contrast (Generic) [facility] [address] [place] [phone] [facility] [place] [address] Referral ID Status Reason Start Date Expiration Date V isits Requested Visits Authorized [id number] Closed Specialty Service Requested 01/15/2018 03/15/2018 1 1 Encounter Details Date Type Department Care Team (Late st Contact Info) Description 01/14/2018 Orders Only [place] [address] Jennifer Nguyen RN Pathological fracture of mandible, sequela; Jaw pain; History of neck swelling Social History Tobacco Use Types Packs/Day Years [...] of this encounter Results * CT Face w [...] enlarging soft tissue mass Keyur Ng MD IM CT ORDERABLES * CT Neck Soft Tissue [...] sequela Jaw pain History of neck swelling Pathological fracture of mandible, sequela Jaw pain History of neck swelling documented in this encounter Care Teams Surfboard Maker Relationship Specialty Start Date End Date Marck Brody DO [address] [place] [address] PCP - General 02/08/10 10/12/21 documented as of this encounter
--- OUTSIDE RECORDS SUMMARY | 2023-12-08 20:05 | XMS_ITS | Encounter Summary ---
Author Organization [facility] [place] [address] Care Team Providers Care Billboard Poster Name Role Phone Marck Brody DO Primary Care Provider [phone] Encounter Details Date Type Department Care Team (Late st Contact Info) Description 04/06/2017 Telephone [place] [phone] Allegra Petersen Social History Tobacco Use Types Packs/Day Years [...] encounter Miscellaneous Notes * Telephone Encounter - Allegra Vega - 04/06/2017 3:03 PM EST Called left a voice message. Would like to schedule patient for a consult with Dr. Ng. documented in this encounter Plan of Treatment Not on file documented as of this encounter Visit Diagnoses Not on filedocumented in this encounter Care Teams Billboard Poster Relationship Specialty Start Date End Date Marck Brody DO [address] [place] [address] [place] [address] PCP - General 02/08/10 10/12/21 documented as of this encounter
--- OUTSIDE RECORDS SUMMARY | 2023-12-08 20:05 | XMS_ITS | Encounter Summary ---
Author Organization [facility] [place] [address] Care Team Providers Care Physician Practice Administrator Name Role Phone Marck Brody DO Primary Care Provider Encounter Details Date Type Department Care Team (Late st Contact Info) Description 12/20/2016 Telephone [place] [phone] Terri Alba Social History Tobacco Use Types Packs/Day Years [...] Miscellaneous Notes * Telephone Encounter - Terri Alba - 12/20/2016 12:43 PM EDT LM for patient to call - wanted to give her date and time of Vascular appt on Feb 06 documented in this encounter Plan of Treatment Not on file documented as of this encounter Visit Diagnoses Not on filedocumented in this encounter Care Teams Physician Practice Administrator Relationship Specialty Start Date End Date Marck Brody DO [facility] [address] [place] [address] PCP - General 02/08/10 10/12/21 documented as of this encounter
--- OUTSIDE RECORDS SUMMARY | 2023-12-08 20:05 | XMS_ITS | Encounter Summary ---
Author Organization [facility] [place] [address] Care Team Providers Care Escrow Clerk Name Role Phone Marck Brody DO Primary Care Provider [phone] Reason for Visit * Reason Comments Follow-up Left side of jaw Encounter Details Date Type Department Care Team (Late st Contact Info) Description 01/28/2018 9:40 AM EST Office [place] [address] Roberth Little MD [facility] [place] [address] Pathological fracture of mandible, sequela; History of neck swelling; Osteonecrosis of mandible; H/O tongue cancer Social [...] - - Weight 45.4 kg (100 lb) 01/28/2018 9:18 AM EST Height 157.5 cm (5' 2) 01/28/2018 9:18 AM EST Body Mass Index 18.29 01/28/2018 9:18 AM EST documented in this encounter Progress Notes * Roberth Little MD - 01/28/2018 9:40 AM EST [facility] OTOLARYNGOLOGY HEAD AND NECK TUMOR CLINIC FOLLOW UP NOTE Theresa Hollis is a 47 y.o. female followed for: Primary site: Left lateral tongue Stage: [id number] Surgery(ies): 10/31/06 - Hemiglossectomy, left neck dissection 1-5, skin graft, allograft Radiation: TREATMENT STARTED: 11/28/06 TREATMENT COMPLETED: 01/14/07 TREATMENT: The total maximum dose was 6600 cGy in 33 fractions. Volume reductions were instituted at 5400 cGy in 30 fractions & 6000 cGy in 30 fractions. Chemotherapy: Concurrent cisplatin New issues since last visit: She developed acute swelling in the left mandible about 2 weeks ago with sensory changes in the mental nerve distribution. She was placed on clindamycin and the swelling did go down. She did develop a rash associated with the clindamycin which she has not experienced before. Currently she has not had any further swelling and she has no pain. The sensory changes in the mental nerve distribution seem to be improving. She has not had this problem prior to this. She was seen by Dr. Ng for evaluation and a CT scan as well as Panorex were obtained. PROBLEM LIST Patient Active Problem List Diagnosis [...] Take 2 tablets by mouth daily. ??? albuterol 90 mcg/actuation HFA Aerosol Inhaler Inhale 2 puffs into the lungs every 4 hours as needed for Wheezing. (Patient not taking: Reported on 01/07/2018) 1 Inhaler 1 ??? acetaminophen (TYLENOL) 160 mg/5 mL [...] EXAMINATION Wt Readings from Last 3 Encounters: 01/28/18 45.4 kg (100 lb) 01/07/18 45.4 kg (100 lb) 10/05/17 46.7 kg (103 lb) General: Well developed, no distress Head/face: Normocephalic, atraumatic Oral cavity: Status post left partial glossectomy with no evidence of recurrence on inspection and palpation. There is no evidence of exposed bone. She does have a new permanent bridge and just deep to that in the midline there is possibly some exposed bone just deep to the bridge. Overall the mandible feels stable during palpation and manipulation. Oropharynx: Normal soft palate, tonsils, lateral pharyngeal wall, posterior pharynx. Indirect mirror examination is unremarkable. Neck: No adenopathy, no masses, normal thyroid, normal salivary gland exam. Trachea midline. Posttreatment changes. Resp: Post glossectomy speech, no stridor, normal respirations. Skin: Normal skin survey of the head and neck. MSK: No trismus, normal neck range of motion Neuro: AxOx3; CN II-XII is grossly intact Psych: Normal mood and affect. Responds appropriately to questions. PROCEDURES None REVIEW OF IMAGES CT scan of the neck was reviewed: COMPARISON: CT face of 04/16/2017 ?? FINDINGS: There is been a left-sided modified radical neck dissection with extensive architectural distortion and numerous surgical clips. There is intermediate attenuation of the normal fatty planes making distinction of individual structures difficult. No bulky enhancing mass is present within the neck. ?? Visualization of the mandible is somewhat limited [...] the vicinity of the partially healed fracture. ?? The parotid glands are of normal appearance. Paranasal sinuses are clear. The orbits are of normal appearance. Visible portions of the brain show no abnormality. ?? IMPRESSION Limited study secondary to new metallic artifact about the mandible. ?? Areas of greater lucency at the mandibular symphysis and posterior aspect of the left mandibular body with differential diagnosis that includes progression of osteonecrosis and infection ?? Little interval change in appearance of partially healed left mandibular body fracture. ?? No rim-enhancing collection or enlarging soft tissue mass ASSESSMENT/RECOMMENDATIONS Fracture noted in the mandible has been present since 2016. The mottled appearance of the bone is new but clinically her mandible appears quite stable and the swelling and discomfort that she was having previously has now resolved with the antibiotic therapy. It is unclear to me whether there be any benefit in proceeding with debridement or removal of the involved bone and reconstructing with a free osteocutaneous flap. Given that she is doing reasonably well I think it may be better to hold off on any surgical intervention at this time. She has had hyperbaric oxygen treatments in the past. One consideration might be long- term IV antibiotics via PICC line. I will discussed with Dr. Ballesteros may present her case at our tumor board for additional opinions. I appreciate the opportunity to be involved in Ms. Hollis's care. 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
--- OUTSIDE RECORDS SUMMARY | 2023-12-08 20:05 | XMS_ITS | Encounter Summary ---
Author Organization [facility] Address [facility] [place] [address] Care Team Providers Care Drug Room Clerk Name Role Phone Marck Brody DO Primary Care Provider [phone] Reason for Visit * Reason Comments Allergies Encounter Details Date Type Department Care Team (Late st Contact Info) Description 05/14/2017 11:30 AM EST Office [place] [address] Gabrielle Ortiz MD [facility] [address] [place] [address] Food intolerance; Wheezing Social History Tobacco Use Types Packs/Day [...] Sign Reading Time Taken Comments Blood Pressure 106/72 05/14/2017 11:21 AM EST Pulse 83 05/14/2017 11:21 AM EST Temperature - - Respiratory Rate 22 05/14/2017 11:21 AM EST Oxygen Saturation 99% 05/14/2017 11:21 AM EST Inhaled Oxygen Concentration - - Weight 45.4 kg (100 lb) 05/14/2017 11:21 AM EST Height 160 cm (5' 3) 05/14/2017 11:21 AM EST Body Mass Index 17.71 05/14/2017 11:21 AM EST documented in this encounter Patient Instructions * Patient Instructions* Gabrielle Ortiz MD - 05/14/2017 11:30 AM EST I am concerned that your reactions to food are solely due to an increase in airway secretions rather than allergy. I think we should try to find more ways to control airway mucus. - try chlorpheniramine twice a day (goal is to help dry up secretions) - if you do not notice a difference on this after 1 month, stop it - as a trial, we can see if an inhaler can help with your respiratory symptoms. Try Spiriva (tiotropium) 1 capsule daily for 1 month. I also sent in a rescue inhaler called albuterol that you can useas needed when your symptoms flare up to see if this helps. It may be helpful to see a manager stars for additional help managing your symptoms - return for food challenge to egg. Bring two cooked eggs to the visit for the challenge - try to avoid sulfites - names to look for on labels: - sulfur dioxide - sotassium bisulfite - potassium metabisulfite - sodium bisulfite - sodium metabisulfite - sodium sulfite Return in 3 months or sooner for challenge documented in this encounter Progress Notes * Gabrielle Ortiz MD - 05/14/2017 11:30 AM EST CC: follow up HPI: Theresa Hollis is a 46 y.o. female with PMH tongue cancer s/p resection/rad/chemo presentingfor follow up of food allergies. The patient returns today because she continues to have problems with foods and she wonders if she has additional food allergies. When I first saw her she was reporting wheezing with fish and shellfish and she had mild positive testing to these (odd because they are not cross-reactive). She subsequently became suspicious of egg and spinach with similar symptoms. When I first tested her to egg it was negative. She asked to be retested when she continued to develop symptoms and on the second testshe had a mild positive to this as well. A blood test was sent for spinach and also showed a mild positive. She reported symptoms in the past with mushroom and testing to this was negative. She returns today and states that she is still concerned about mushroom. She states that she still gets wheezing when she eats this and now she is having symptoms with more foods as well. She states that once she had a frozen chicken pot pie and partly through eating this she felt wheezy and her throat felt tight. She also wonders if broccoli is a trigger because she ate it and developed the wheezing symptoms but states that mushrooms were also in this dish. She is concerned about green vegetables being a trigger. She states she is also concerned about pepperoni after an episode in which she ate pizza, but states that mushrooms were on the pizza as well. She states that she has not otherwise noticed problems with chicken but thinks that perhaps in retrospect she has had problems with it. She wonders if she can be desensitized or what can be done to prevent her from continuing to develop symptoms with foods. She states a lot of times her symptoms do not occur with every exposure to the food. When she states that she gets wheezing she states that she has a lot of excess secretions and a cough and she will feel hot and inundated with mucus, like she is drowning in mucus. She is not having rash, hives, itching with any of these foods or wheezing episodes. We tried ipratropium nasal spray in the past for treatment of gustatory rhinitis and she did not notice improvement with this. ROS: per HPI, otherwise negative. Patient Active [...] Outpatient Prescriptions Marked as Taking for the 05/14/17 encounter (Office Visit) with Arnoldo Ortiz MD Medication Sig Dispense Refill ??? clindamycin (CLEOCIN) 150 mg Capsule ??? levothyroxine (SYNTHROID) 112 mcg Tablet Take 1 tablet by mouth daily. 90 tablet 3 ??? cevimeline (EVOXAC) 30 mg Capsule Take 1 capsule by mouth 3 times daily. 90 capsule 12 ??? calcium carbonate (TUMS) 200 mg calcium (500 mg) Tablet, Chewable Take 2 tablets by mouth daily. ??? acetaminophen (TYLENOL) 160 mg/5 mL Elixir Take 15 mg/kg/dose by mouth every 4 hours as needed for Fever. Reported on 02/24/2016 PHYSICAL EXAM: BP 106/72 (BP Location (NBP): Left arm, Patient Position: Sitting, BP Cuff Sizes: Adult (25-34 cm)) Pulse 83 Resp 22 Ht 160 cm (5' 3) Wt 45.4 kg (100 lb) SpO2 99% BMI 17.71 kg/m2 Gen: AAOx3, no acute distress Exam deferred, counseling only ASSESSMENT/PLAN: 46 y.o. female with PMH tongue cancer s/p resection/rad/chemo presenting for follow up of food allergies. When I first saw her, she reported wheezing with a small number of foods and had mild positive testing so at the time a diagnosis of food allergy made sense. Since then, however, she continues to experience these wheezing symptoms with more and more foods and there is not much of a pattern.I also find it suspicious that she never has cutaneous symptoms with this. I do not believe she hasmultiple food allergies at this point and I now question the original diagnosis of food allergy based on her continued symptoms. At this point I think most likely she is having a nonspecific overactive mucus response to eating, probably related to her history or oral cancer/rad/chemo. She asks why this would suddenly develop so many years later. This is not my area of expertise and I don't know how commonly this occurs as a side effect of therapy. However, I can say it exceedingly uncommon for an adult to suddenly develop food allergies, particularly multiple food allergies. Positive testing i n the past is also not diagnostic because mild false positives to foods are common; a large positive is more likely to be a food allergy. I do not want her to suffer from continued food avoidance if she does not have to. Recommended we try some things that may help dry up secretions and see if thishelps. I also recommended we do a food challenge in the office in which we can monitor her FEV1, monitor for rashes or other symptoms that would be more suggestive of a FA. If she passes the challenge, she can try to start eating these things again. The other thing I pointed out was that some prepackaged foods (like pepperoni, pot pie) may contain sulfites, which can trigger respiratory symptoms in some people. Recommended trying to avoid sulfites and see if it helps. - try chlorpheniramine twice a day (goal is to help dry up secretions) - if you do not notice a difference on this after 1 month, stop it - as a trial, we can see if an inhaler can help with your respiratory symptoms. Try Spiriva (tiotropium) 1 capsule daily for 1 month. I also sent in a rescue inhaler called albuterol that you can useas needed when your symptoms flare up to see if this helps. It may be helpful to see a manager stars for additional help managing your symptoms - return for food challenge to egg. Bring two cooked eggs to the visit for the challenge - try to avoid sulfites - names to look for on labels: - sulfur dioxide - sotassium bisulfite - potassium metabisulfite - sodium bisulfite - sodium metabisulfite - sodium sulfite Return in 3 months or sooner for challenge 15 minutes were spent with the patient, over half in counseling on likely etiology of symptoms, treatment and diagnostic recommendations. Gabrielle Ortiz MD documented in this encounter Plan of Treatment Not on file documented as of this encounter Visit Diagnoses Diagnosis Food intolerance Other specified intestinal malabsorption Wheezing documented in this encounter Care Teams Drug Room Clerk Relationship Specialty Start Date End Date Marck Brody DO [address] [place] [address] PCP - General 02/08/10 10/12/21 documented as of this encounter
--- OUTSIDE RECORDS SUMMARY | 2023-12-08 20:05 | XMS_ITS | Encounter Summary ---
[place] [address] Care Team Providers Care Disability Coordinator Name Role Phone Marck Brody DO Primary Care Provider Encounter Details Date Type Department Care Team (Late st Contact Info) Description 01/21/2018 [place] [phone] Latoya Molina Social History Tobacco Use Types [...] Telephone Encounter - Latoya Molina - 01/21/2018 1:02 PM EST Erogenous encounter. documented in this encounter Plan of Treatment Not on file documented as of this encounter Visit Diagnoses Not on filedocumented in this encounter Care Teams Disability Coordinator Relationship Specialty Start Date End Date Marck Brody DO [address] [place] [address] PCP - General 02/08/10 10/12/21 documented as of this encounter
--- OUTSIDE RECORDS SUMMARY | 2023-12-08 20:05 | XMS_ITS | Encounter Summary ---
Author Organization [facility] Address [facility] [place] [address] Care Team Providers Care Alliance Consultant Name Role Phone Marck Brody DO Primary Care Provider [phone] Reason for Visit * Reason Comments Other new lesion on tongue , patient reports its very painful on the right side of her tongue thinks she might have an infection Encounter Details Date Type Department Care Team (Late st Contact Info) Description 03/18/2018 8:30 AM EST Office [place] [address] Hermelindo Kearney PA [facility] [place] [address] Tongue lesion Social History Tobacco Use Types [...] - - Weight 45.4 kg (100 lb) 03/18/2018 8:08 AM EST Height 157.5 cm (5' 2) 03/18/2018 8:08 AM EST Body Mass Index 18.29 03/18/2018 8:08 AM EST documented in this encounter Progress Notes * Hermelindo Kearney PA - 03/18/2018 8:30 AM EST [facility] [place] [facility] FOLLOW UP NOTE Theresa Hollis is a 47 y.o. female followed for: Left Lateral Tongue Cancer ?? Primary site: Left lateral tongue Stage: [id number] Surgery(ies): 10/31/06 - Hemiglossectomy, left neck dissection 1-5, skin graft, allograft Radiation: TREATMENT STARTED: 11/28/06 TREATMENT COMPLETED: 01/14/07 TREATMENT: The total maximum dose was 6600 cGy in 33 fractions. Volume reductions were instituted at 5400 cGy in 30 fractions & 6000 cGy in 30 fractions. Chemotherapy: Concurrent cisplatin ?? She was last seen in clinic on 01/28/18 which was 2 weeks after developing acute swelling in the left mandible with sensory changes in the mental nerve distribution. She had been placed on clindamycin and the swelling did go down. She did develop a rash associated with the clindamycin which she hasnot experienced before. At that last visit, she had not had any further swelling and she had no pain. The sensory changes in the mental nerve distribution seemed to be improving. She had not had thisproblem prior to this. On examination, there was no evidence of exposed bone, the mandible felt stable, and there was no evidence of recurrence. She called the clinic last week to report that she has a new lesion on her tongue on the opposite side of the previous lesion. ?? New issues since last visit: Has had a lot of family stress, 2 parents with malignancies. About 1 month ago, began to note Began to feel her tongue was dry and sensitive. [place] she might be getting an infection. Used some Clindaymycin (oral) which seemed to help. Took it for 10 days, 3 times per day; seemed to help. Also put some lip balm. Had seen her dentist recently as well, did not say anything . Began to feel some tongue soreness, right jaw tingling, and right otalgia that comes and goes. Megha morning looked in her mouth and found a lesion. Saw her PCP, felt may be an injury. Does not remember biting her tongue. Has also been having some muscle spasms in her right jaw. Tried orojel, but hasn't helped, sometimes makes the area more sensitive. Today, tongue feels sensitive as if she has an infection, but minor pain. No bleeding or drainage. Unsure if there is swelling in that area. There is no new numbness. Sense of taste is normal. No decreased tongue mobility. No new lumps or bumps on head or neck. No worsening trismus. No fevers, chills, night sweats. PROBLEM LIST Patient Active Problem List Diagnosis [...] impaction. NOSE - Grossly patent anteriorly. MOUTH - Post surgical changes noted. - Lips and gingiva pink, moist, with some erosion of the attached gingiva at the mandibular centralincisors along the labial aspect. - Tongue with minimal mobility. - Right lateral tongue with an ~1cm x 7mm lesion with some light fibrinous exudate and minor surrounding erythema, tender to palpation; no associated induration noted. - Lower left premolar and central incisors slightly mobile. ?? - FOM on right soft; on the left with induration, stable, noted on prior exams. - 2cm trismus, stable. - Hard palate without lesions. PHARYNX - Post radiation changes noted. - Uvula is midline. - Oropharynx symmetric. NECK - Soft, supple, without significant lymphadenopathy. - Post surgical and radiation changes and fibrosis noted bilaterally. - Thyroid gland without masses or asymmetry. - Trachea midline without deviation. LUNGS - Clear to auscultation bilaterally without wheezes. HEART - Regular rate and rhythm without murmur. NEURO - Cranial nerves II-XII intact and symmetric. - Responds appropriately to questions. PSYCHE - Normal mood and affect. PROCEDURES REVIEW OF IMAGES/STUDIES ASSESSMENT/RECOMMENDATIONS Theresa Hollis is a 47 y.o. female with what appears to be a bite injury to her right llateral tongue. There were no concerning features of the lesion, and the area is soft to palpation. - Discussed use of viscous lidocaine, especially prior to meals, as needed for the next 2 weeks. - Discussed continuing with Tylenol and Ibuprofen as needed. - Discussed use of Biotene for her oral sensitivity and dryness. - Discussed talking with her dentisit regarding getting fitted for an Invisoline guard to help avoid future injuries. - Discussed her reassessing her tongue sensitivity anteriorly in about 1 week, and that if she noted any white lesions, or has increasing pain in that area, that we may empirically treat for trush. > Dr. Lee also discussed with the patient that there was no need for treatment at this point for her mandible. - The patient expressed understanding of these points and agreement with the plan, and all questions that were asked were answered to the patient's satisfaction. Plan: > Viscous lidocaine, 4 times per day as needed. > Reassess anterior tongue pain in 1 week, call if still symptomatic. > See Dentisit regarding invisoline. > Patient should call if their symptoms worsen or fail to improve, if new concerning symptoms arise, or if they have any questions or concerns regarding their treatment. Note: Dr. Lee also was able to see and examine the patient, and felt that the lesion appearedbenign, likely a bite injury. I appreciate the opportunity to be involved in Ms. Hollis's care. Hermelindo Kearney PA-C [place], [place] [address] Office 03/18/2018 documented in this encounter Plan of Treatment Not on file documented as of this encounter Visit Diagnoses Diagnosis Tongue lesion Other specified conditions of the tongue documented in this encounter Care Teams Alliance Consultant Relationship Specialty Start Date End Date Marck Brody DO [address] [facility] [place] [address] PCP - General 02/08/10 10/12/21 documented as of this encounter
--- OUTSIDE RECORDS SUMMARY | 2023-12-08 20:05 | XMS_ITS | Encounter Summary ---
Author Organization [facility] [place] [address] Care Team Providers Care Barrel And Receiver Aligner Name Role Phone Marck Brody DO Primary Care Provider Encounter Details Date Type Department Care Team (Latest Contact Info) Description 12/06/2016 12:30 PM EDT - 12/06/2016 11:59 PM EDT Hospital Encounter [place] [phone] Cancer of head and neck Discharge Disposition: Home Social History Tobacco Use [...] Date End Date ipratropium (ATROVENT) 0.03 % [place], Non-Aerosol 10/10/2016 05/14/2017 cevimeline (EVOXAC) 30 mg [...] Procedure Name Priority Date/Time Associated Diagnosis Comments HEMOGRAM Routine 12/06/2016 12:37 PM EDT Cancer of head and neck DIFFERENTIAL, AUTOMATED Routine 12/06/2016 12:37 PM EDT Cancer of head and neck CBC (WITH DIFF) Routine 12/06/2016 12:37 PM EDT Cancer of head and neck COMPREHENSIVE METABOLIC PANEL Routine 12/06/2016 12:37 PM EDT Cancer of head and neck documented in this encounter Results * Differential, Automated (12/06/2016 12:37 PM EDT) Neutrophil % 66.2 % [facility] Neutrophil Absolute 3.13 1.70 - 6.10 x10(3)/[facility] Lymph % 22.7 % [facility] Lymphocytes Abs 1.1 0.9 - 3.2 x10(3)/[facility] Monocyte % 6.6 % [facility] Monocyte Abs 0.3 0.3 - 0.9 x10(3)/[facility] Eos % 3.2 % [facility] Eosinophils Abs 0.2 0.0 - 0.4 x10(3)/[facility] Basophil % 1.1 % [facility] Baso Absolute 0.0 0.0 - 0.1 x10(3)/[facility] Immature Gran % 0.20 % [facility] Comment: Immature granulocytes(IG's)percentage and absolute count will include metamyelocytes, myelocytes, and promyelocytes. Blood smears from CBCs yielding IG's will be scanned manually for concordance. If this scan disagrees with the automated IG or if promyelocytes are noted, a manual differential will be performed. Immature Gran Absolute 0.01 0.00 - 0.04 x10(3)/mcL [facility] Blood specimen (specimen) 12/06/2016 12:37 PM EDT 12/06/2016 12:51 PM EDT Narrative Resulting Agency Comment Spec In Lab Natalie Harris BOMBSIGHT SPECIALIST HEMATOLOGY ORDERABLE S [facility] [place] [address] * (ABNORMAL) Hemogram (12/06/2016 12:37 PM EDT) White Blood Cell 4.7 4.0 - 9.5 x10(3)/mc L [facility] Red Blood Cell 3.89(L) 4.00 - 5.21 x10(6)/mc L [facility] Hemoglobin 13.1 11.7 - 15.5 gm/dL [facility] Hematocrit 37.8 35.7 - 45.8 % [facility] Mean Cell Volume 97.2(H) 82.6 - 94.4 [facility] Mean Cell Hemoglobin 33.7(H) 27.1 - 32.0 pg [facility] Mean Cell Hemoglobin Concentration 34.7 31.7 - 35.0 gm/dL [facility] Platelet 288 145 - 357 x10(3)/mc L [facility] RDW Standard Deviation 43.8 37.0 - 46.0 [facility] RDW coefficient of variation 12.1 11.5 - 14.1 % [facility] Mean Platelet Volume 9.4 7.6 - 12.9 [facility] NRBC% auto 0.0 % [facility] NRBC Absolute 0.000 0.000 - 0.000 x10(3)/mc L [facility] Blood specimen (specimen) 12/06/2016 12:37 PM EDT 12/06/2016 12:51 PM EDT Narrative Resulting Agency Comment Spec In Lab Natalie Harris BOMBSIGHT SPECIALIST HEMATOLOGY ORDERABLE S [facility] [place] [address] * (ABNORMAL) Comprehensive metabolic panel (non-fasting) (12/06/2016 12:37 PM EDT) Glucose 109 65 - 199 mg/dL [facility] Comment:Diabetes: >=200 mg/d L plus symptoms Blood Urea Nitrogen 6(L) 8 - 18 mg/dL [facility] Creatinine 0.84 0.70 - 1.20 mg/dL [facility] Comment: Please note that the pediatric reference intervals supplied above were not validated [place] [facility] Results from pediatric patients should be interpreted in conjunction to the patient's age, height and muscle mass. Sodium 137 135 - 145 mmol/L [facility] Potassium 3.4(L) 3.5 - 5.0 mmol/L [facility] Comment: Please note: ??Patients with WBC >100,000 may have falsely elevated Potassium levels. ??For accurate Potassium quantification in these patients send serum separator tube (gold top) for subsequent determinations. ??Contact the Clinical Chemistry Laboratory if there are any questions. Chloride 98 98 - 107 mmol/L [facility] Carbon Dioxide 25 22 - 31 mmol/L [facility] Anion Gap 14 5 - 15 mmol/L [facility] Calcium 9.5 8.5 - 10.5 mg/dL [facility] Protein, Total 7.5 6.1 - 8.0 gm/dL [facility] Albumin 4.4 3.2 - 5.2 gm/dL [facility] Aspartate Aminotransferase 20 0 - 30 unit/L [facility] Alanine Aminotransferase 13 0 - 30 unit/L [facility] Alkaline Phosphatase 42 40 - 104 unit/L [facility] Bilirubin, Total 0.6 0.2 - 1.3 mg/dL [facility] Est Glomerular Filtration Rate >60 >=60 [facility] Comment: This estimated GFR (eGFR) value [...] the following links into your internet browser. [email or web address] Blood specimen (specimen) 12/06/2016 12:37 PM EDT 12/06/2016 12:51 PM EDT Narrative Resulting Agency Comment Spec In Lab Natalie Harris APRN CHEMISTRY ORDERABLES [facility] [place] [address] documented in this encounter Visit Diagnoses Diagnosis Cancer of head and neck documented in this encounter Care Teams Barrel And Receiver Aligner Relationship Specialty Start Date End Date Marck Brody DO [address] [place] [address] PCP - General 02/08/10 10/12/21 documented as of this encounter
--- OUTSIDE RECORDS SUMMARY | 2023-12-08 20:05 | XMS_ITS | Encounter Summary ---
[place] [address] Care Team Providers Care Fibreglass Gun Hand Name Role Phone Marck Brody DO Primary Care Provider [phone] Encounter Details Date Type Department Care Team (Late st Contact Info) Description 09/24/2017 Telephone [place] [phone] Mesha Briggs RN Social History Tobacco Use [...] Miscellaneous Notes * Telephone Encounter - Mesha Briggs RN - 09/24/2017 9:22 AM EDT Reviewed patient's lab work with provider. TSH is lower at 0.1 however other thyroid studies are WNL. Recommends that patient make an appt with PCP for further work up of symptoms and management. Call placed to patient updated her on the above. She will call her PCP for an appt. documented in this encounter Plan of Treatment Not on file documented as of this encounter Visit Diagnoses Not on filedocumented in this encounter Care Teams Fibreglass Gun Hand Relationship Specialty Start Date End Date Marck Brody DO [address] [facility] [address] [place] [address] PCP - General 02/08/10 10/12/21 documented as of this encounter
--- OUTSIDE RECORDS SUMMARY | 2023-12-08 20:05 | XMS_ITS | Encounter Summary ---
Author Organization [facility] [place] [address] Care Team Providers Care Bakery Chef Name Role Phone Marck Brody DO Primary Care Provider Reason for Referral * Diagnostic Test (Routine) - Closed Specialty Diagnoses / Procedures Referred By Contac t Referred To Contact Radiology Diagnoses Pathological fracture of mandible with delayed healing, subsequent encounter Procedures CT Face wo Contrast Keyur Ng MD [facility] [place] [address] [facility] [place] [address] Referral ID Status Reason Start Date Expiration Date V isits Requested Visits Authorized [id number] Closed Specialty Service Requested 04/16/2017 06/14/2017 1 1 Reason for Visit * Diagnostic Test (Routine) - Closed Specialty Diagnoses / Procedures Referred By Contgumaro t Referred To Contact Radiology Diagnoses Pathological fracture of mandible with delayed healing, subsequent encounter Procedures CT Face wo Contrast Keyur Ng MD [facility] [place] [address] [facility] [place] [address] Referral ID Status Reason Start Date Expiration Date V isits Requested Visits Authorized [id number] Closed Specialty Service Requested 04/16/2017 06/14/2017 1 1 Encounter Details Date Type Department Care Team (Latest Contact Info) Description 04/16/2017 4:32 PM EST - 04/16/2017 11:59 PM EST Hospital Encounter CT Scan at [facility] [place] [address] Keyur Ng MD [facility] [place] [address] Pathological fracture of mandible with delayed healing, subsequent encounter Discharge Disposition: Home Social History Tobacco Use [...] Refills Start Date End Date clindamycin (CLEOCIN) 300 mg Capsule Take 1 capsule by mouth 3 times daily. 30 capsule 04/16/2017 05/14/2017 ipratropium (ATROVENT) 0.03 % [place], Non-Aerosol 10/10/2016 05/14/2017 FIRST-MOUTHWASH BLM [id number] mg/30 mL Mouthwash 02/27/2017 05/14/2017 levothyroxine (SYNTHROID) [...] Name Priority Date/Time Associated Diagnosis Comments CT FACE WO CONTRAST Routine 04/16/2017 4 :54 PM EST Pathological fracture of mandible with delayed healing, subsequent encounter documented in this encounter Results * CT Face wo [...] encounter documented in this encounter Care Teams Bakery Chef Relationship Specialty Start Date End Date Marck Brody DO [address] [place] [address] PCP - General 02/08/10 10/12/21 documented as of this encounter
--- OUTSIDE RECORDS SUMMARY | 2023-12-08 20:05 | XMS_ITS | Encounter Summary ---
[place] [address] Care Team Providers Care Review Manager Name Role Phone Marck Brody DO Primary Care Provider Encounter Details Date Type Department Care Team (Late st Contact Info) Description 04/03/2017 Telephone [place] [phone] Amy Trotter, RN Social History Tobacco Use [...] Encounter - Amy Trotter RN - 04/03/2017 4:28 PM EST Discussed getting panorex with patient's dentist locally and sending the results to Berenice's office for follow up. Patient prefers this plan. documented in this encounter Plan of Treatment Not on file documented as of this encounter Visit Diagnoses Not on filedocumented in this encounter Care Teams Review Manager Relationship Specialty Start Date End Date Marck Brody DO [address] [place] [address] PCP - General 02/08/10 10/12/21 documented as of this encounter
--- OUTSIDE RECORDS SUMMARY | 2023-12-08 20:05 | XMS_ITS | Encounter Summary ---
Author Organization [facility] [place] [address] Care Team Providers Care Rehabilitation Clerk Name Role Phone Marck Brody DO Primary Care Provider Encounter Details Date Type Department Care Team (Late st Contact Info) Description 03/15/2018 Notes [place] [phone] Theresa Garay RN Social History Tobacco Use [...] as of this encounter Progress Notes * Theresa Garay, FUENTES - 03/15/2018 9:00 AM EST Received call from patient. Reports finding a new lesion on her tongue on , opposite side of previous lesion. States that it is painful. Has appointment with Oswaldo ALAMO on 03/18/18 for evaluation. Is using ibuprofen for pain management with some effect. Wondering if there is anything else that she can do to help with the pain until Sunday. We discussed alternating tylenol with the ibuprofen to get more steady pain control. Pt verbalized some apprehension regarding this new lesion and what it could mean. Support given. Pt aware that Dr. Lee would also be in the clinic and available for consultation. Pt verbalized understanding of all instructions. documented in this encounter Plan of Treatment Not on file documented as of this encounter Visit Diagnoses Not on filedocumented in this encounter Care Teams Rehabilitation Clerk Relationship Specialty Start Date End Date Marck Brody DO [facility] [address] [place] [address] PCP - General 02/08/10 10/12/21 documented as of this encounter
--- OUTSIDE RECORDS SUMMARY | 2023-12-08 20:05 | XMS_ITS | Encounter Summary ---
Author Organization [facility] [place] [address] Care Team Providers Care Long Distance Operator Name Role Phone Marck Brody DO Primary Care Provider [phone] Reason for Visit * Reason Comments Head And Neck Cancer Encounter Details Date Type Department Care Team (Late st Contact Info) Description 03/22/2017 1:00 PM EST Office [place] [phone] Marck Sherman MD [address] [place] [address] [place] [address] Tongue cancer; Hypothyroidism (acquired) Social History Tobacco Use Types [...] as of this encounter Progress Notes * Marck Sherman MD - 03/22/2017 1:00 PM EST Head and Neck Cancer Medical Oncology Patient Active Problem List Diagnosis ??? Periodontal disease ??? DIFFICULT AIRWAY 05/06/2014 - see airway note in anesthesia record ??? Radiation injury Has dry mouth/xerostomia, retraction of gums ??? 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 History of tongue cancer ??? Hypothyroidism (acquired) [id number] in 06/25. Started on synthroid 25mcg po [...] skin graft 10/30/06: 1 cm high-grade SCCa, nodes involved (1 at level 5), (-) DANE, PNI, LVI C. adjuvant concurrent cisplatin (100mg/m2 q3wks - 3 total doses) plus radiation (66Gy total) started 11/26 - 01/07/07, complicated by mucositis, dysphagia requiring PEG tube, severe oral pain; excellent functional recovery D. Hyperbaric O2 therapy for dental extractions 04/2014 D. Atraumatic L mandibular fracture 12/2015 despite hyperbaric O2 treatment; managed conservatively Here for annual multidisciplinary checkup; seen concurrently with Hermel[facility] ALAMO ENT.. Ten years from completing therapy. By coincidence in the last 1-2 days she noted a sudden shift in her jaw, with sensation that teeth were not meeting as uniformly. No pain. Some anterior numbness. Symptoms all improved today. No history of trauma or hard biting associated with this. Otherwise well. Eating remains a modest challenge, with chewing on the left side of her mouth more difficult, and moving food with the tongue a chronic challenge. She is thin but is keeping her weight stable. Mild xerostomia. Taste sensation fairly normal. Increasing allergies to foods, with increased phlegm, wheezing. Working with Optician Manager on these issues. 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 Outpatient Prescriptions Marked as Taking for the 03/22/17 encounter (Office Visit) with Marck Sherman MD Medication Sig Dispense Refill ??? ipratropium (ATROVENT) 0.03 % [place], Non-Aerosol ??? FIRST-MOUTHWASH BLM [id number] mg/30 mL Mouthwash ??? levothyroxine (SYNTHROID) 112 mcg Tablet Take 1 tablet by mouth daily. 90 tablet 3 ??? cevimeline (EVOXAC) 30 mg Capsule Take 1 capsule by mouth 3 times daily. 90 capsule 12 ??? [DISCONTINUED] levothyroxine (SYNTHROID) 112 mcg Tablet Take 1 tablet by mouth daily. 30 [id number] ??? calcium carbonate (TUMS) 200 mg calcium (500 mg) Tablet, Chewable Take 2 tablets by mouth daily. ??? acetaminophen (TYLENOL) 160 mg/5 mL Elixir Take 15 mg/kg/dose by mouth every 4 hours as needed for Fever. Reported on 02/24/2016 Review of Systems: Review of systems is negative for other PASSENGER RELATIONS REPRESENTATIVE, bone, pulmonary, cardiac, GI, , extremity, neurologic, endocrine, skin, constitutional, emotional, or functional problems. Vitals Office Visit from 03/22/2017 in Otolaryngology at [place] Weight 46.3 kg (102 lb) There is no height or weight on file to calculate BSA. Wt Readings from Last 3 Encounters: 03/22/17 46.3 kg (102 lb) 02/06/17 45.4 kg (100 lb) 12/06/16 46.5 kg (102 lb 8.2 oz) Physical exam: She is coming by her today. She looks well, in good spirits as usual She is thin but her weight is stable. Oral exam shows well-healed surgical changes in the left tongue and floor of mouth. No visible tumor or leukoplakia. No trismus. There is moderate gum recession in the anterior mandibular incisors. None of the teeth are loose orpainful. No exposed bone. The mandible is firm, with no pathologic motion, and no pathologic tenderness. There is no abnormalcrepitus at the TMJ bilaterally. Neck is thin but without adenopathy. Chest is clear to auscultation percussion Cardiac exam shows regular rate and rhythm, normal heart tones Abdomen is benign without hepatosplenomegaly or masses Extremities show no clubbing cyanosis or edema Neurologic exam shows normal motor and sensory function, reflexes 2+. Nerves are normal, save for some slightly decreased sensation in the left V3 distribution on the mandible. Lab Results Component Value Date TSH 0.23 (L) 03/22/2017 Most recent imaging study was CT of the neck from 02/2016, showing a thin fracture along the left mandible. No signs of cancer. Impression: 10 years from surgery and postop adjuvant chemoradiotherapy for tongue cancer, clinically MALLY. Ongoing posttreatment sequelae xerostomia, dental problems and gingival recession, and bone loss in the mandible without bone exposure. Her symptoms suggest a subtle mandibular fracture, but in the absence of pain there is no indication for immediate therapy. Mr. Kearney and Dr. Jesus Rodriguez discussed the situation today. Thyroidism, adequately replaced; she generally feels better TSH pushed down below the lower limit of normal. Plan: 1. Continue monitoring for any changes in the mandibular bone, particularly pain. Reconstructed therapy could be considered but she is done well for over a year with very conservative management. 2. Continue assiduous dental care 3. Continue levothyroxine 112 mcg p.o. daily; I sent in a new prescription for 90 tablets with 3 refills. 4. In the absence of new problems or concerns, follow-up in 1 year coordinated with ENT. Marck Sherman MD, FACP vice president quality assurance Hematology/[place] [address] Voice recognition software used for this note; please excuse transportation project manager errors. documented in this encounter Plan of Treatment Not on file documented as of this encounter Visit Diagnoses Diagnosis Tongue cancer Malignant neoplasm of tongue, unspecified site Hypothyroidism (acquired) Unspecified hypothyroidism documented in this encounter Care Teams Long Distance Operator Relationship Specialty Start Date End Date Marck Brody DO [address] [place] [address] [address] [facility] [address] [place] [address] PCP - General 02/08/10 10/12/21 documented as of this encounter
--- OUTSIDE RECORDS SUMMARY | 2023-12-08 20:06 | XMS_ITS | Encounter Summary ---
Author Organization Formerly [facility], [facility] [place] [address] Care Team Providers Care Stamping Die Maker Bench Name Role Phone Marck Brody DO Primary Care Provider [phone] Reason for Visit * Reason Comments Annual Exam 1yr f/u, tongue ca Fracture LT side jaw fracture Encounter Details Date Type Department Care Team (Late st Contact Info) Description 03/23/2016 10:20 AM EST Office Visit [place] [phone] Roberth Little MD [facility] [address] Tongue cancer; Pathological fracture of mandible Social History Tobacco Use Types [...] - - Weight 44.9 kg (99 lb) 03/23/2016 10:20 AM EST Height 157.5 cm (5' 2) 03/23/2016 10:20 AM EST Body Mass Index 18.11 03/23/2016 10:20 AM EST documented in this encounter Progress Notes * Roberth Little MD - 03/23/2016 10:20 AM EST [facility] Follow up note Theresa Hollis is a 45 y.o. female Primary site: Left lateral tongue Stage: [id number] Surgery(ies): 10/31/06 - Hemiglossectomy, left neck dissection 1-5, skin graft, allograft Radiation: TREATMENT STARTED: 11/28/06 TREATMENT COMPLETED: 01/14/07 TREATMENT: The total maximum dose was 6600 cGy in 33 fractions. Volume reductions were instituted at 5400 cGy in 30 fractions & 6000 cGy in 30 fractions. Chemotherapy: Concurrent cisplatin New issues since last visit: Since I last saw her she has required some dental work with HBOT and extractions, left mandibular molars. She developed a fracture in the left mandibular body initially associated with numbness in the mental nerve distribution. This has improved and currently has very minimal numbness in the lip along the gera. She has no pain, swelling, drainage. She is maintaining a soft diet. She is concerned about her two lower medial incisors. PROBLEM LIST: Patient Active Problem List Diagnosis Code ??? Hypothyroidism (acquired) E03.9 ??? Tongue cancer C02.9 ??? Tinnitus H93.19 ??? History of tongue cancer Z85.810 ??? Radiation injury T66.XXXA ??? DIFFICULT AIRWAY T88.4XXA ??? Periodontal disease K05.6 PAST MEDICAL HISTORY: Past Medical History Diagnosis Date ??? Breast cancer ??? Cancer of head, face, and neck ??? Hypothyroidism SOCIAL HISTORY: Social History Substance Use Topics ??? Smoking status: Never Smoker ??? Smokeless tobacco: Never Used ??? Alcohol use Yes Comment: seldom, 4 drinks per year MEDICATIONS: Current Outpatient Prescriptions on File Prior to Visit Medication Sig Dispense Refill ??? levothyroxine (SYNTHROID) 112 mcg Tablet Take 1 tablet by mouth daily. 30 tablet 12 ??? cevimeline (EVOXAC) 30 mg Capsule Take 1 capsule by mouth 3 times daily. 90 capsule 12 ??? calcium carbonate (TUMS) 200 mg calcium (500 mg) Tablet, Chewable Take 1 tablet by mouth daily. ??? acetaminophen (TYLENOL) 160 mg/5 mL Elixir Take 15 mg/kg/dose by mouth every 4 hours as needed for Fever. Reported on 02/24/2016 ??? vitamin E 400 unit Capsule Take 400 Units by mouth daily. Indications: Hyperbaric oxygen therapy No current facility-administered medications on file prior to visit. ALLERGIES: No Known Allergies ROS: Pertinent positive findings discussed above. No other findings on review of constitutional visual, cardiovascular, respiratory, gastrointestinal, genitourinary, musculoskeletal, dermatologic, neurological, psychiatric, endocrine, hematologic or immunologic systems. PHYSICAL EXAMINATION: There were no vitals filed for this visit. Wt Readings from Last 3 Encounters: 03/23/16 (!) 44.9 kg (99 lb) 02/24/16 45.1 kg (99 lb 6 oz) 02/24/16 45.1 kg (99 lb 6.4 oz) General: Well developed, no distress Head/face: Normocephalic, atraumatic Oral cavity: No evidence of recurrence. S/p extractions, left lower mandible. No exposed bone. Two medial incisors with some discoloration. Remaining dentition looks healthy. Oropharynx: Normal soft palate, tonsils, lateral pharyngeal wall, posterior pharynx. Neck: No palpable adenopathy. Resp: Post glossectomy speech, no stridor, normal respirations. Skin: Normal skin survey of the head and neck. MSK: No trismus, normal neck range of motion Neuro: AxOx3; CN II-XII is grossly intact Psych: Normal mood and affect. Responds appropriately to questions. I reviewed her recent CT. She has a non-displaced fracture of the body of the mandible. ASSESSMENT/RECOMMENDATIONS: 1 - oral cancer: No recurrence 2 - Pathologic fracture mandible: Currently minimal symptoms, no swelling, mandible is stable and non-tender on palpation. No exposed bone. Would recommended continued observation but will discuss with Amanuel. Alternatively, resection of the necrotic bone and fibula free flap would be needed. We also discussed implants especially if sheneeded further extractions but this would likely not be covered by her insurance. I appreciate the opportunity to be involved in Ms. Hollis's care. Please do not hesitate to contact me at [email or web address], (office), (page arc welding machine operator) or [phone] (mobile) if you have any questions. ROBERTH LITTLE MD 03/23/2016 documented in this encounter Plan of Treatment Not on file documented as of this encounter Visit Diagnoses Diagnosis Tongue cancer Malignant neoplasm of tongue, unspecified site Pathological fracture of mandible documented in this encounter Care Teams Stamping Die Maker Bench Relationship Specialty Start Date End Date Marck Brody DO [address] [place] [address] PCP - General 02/08/10 10/12/21 documented as of this encounter
--- OUTSIDE RECORDS SUMMARY | 2023-12-08 20:06 | XMS_ITS | Encounter Summary ---
[place] [address] Care Team Providers Care Certified Peer Specialist Name Role Phone Marck Brody DO Primary Care Provider Reason for Visit * Reason Onset Date Comments Medication Refill 10/29/2014 Encounter Details Date Type Department Care Team (Late st Contact Info) Description 10/29/2014 Refill [place] [phone] Carolyn Mello, RN Tongue cancer Social History [...] site documented in this encounter Care Teams Certified Peer Specialist Relationship Specialty Start Date End Date Marck Brody DO [address] [place] [address] PCP - General 02/08/10 10/12/21 documented as of this encounter
--- OUTSIDE RECORDS SUMMARY | 2023-12-08 20:06 | XMS_ITS | Encounter Summary ---
Author Organization [facility] [address] Care Team Providers Care Pearl Hand Name Role Phone Marck Brody DO Primary Care Provider [phone] Encounter Details Date Type Department Care Team (Late st Contact Info) Description 02/09/2016 Orders Only Hematology [place] [address] Marck Sherman MD [address] [place] [address] [place] [address] Hypothyroidism, unspecified type (Primary Dx) Social History Tobacco Use Types [...] of this encounter Results * (ABNORMAL) TSH (02/24/2016 10:12 AM EST) Thyroid Stimulating Hormone 6.22(H) 0.27 - 4.20 mcIU/mL [facility] Blood specimen (specimen) 02/24/2016 10:12 AM EST 02/24/2016 10:39 AM EST Narrative Resulting Agency Comment Spec In Lab Marck Sherman MD CHEMISTRY ORDERABLES Performing Organization Address City/State/[facility] Co de Phone Number [facility] [place] [address] documented in this encounter Visit Diagnoses Diagnosis Hypothyroidism, unspecified type- Primary documented in this encounter Care Teams Pearl Hand Relationship Specialty Start Date End Date Marck Brody DO [address] [place] [address] [address] [place] [address] PCP - General 02/08/10 10/12/21 documented as of this encounter
--- OUTSIDE RECORDS SUMMARY | 2023-12-08 20:06 | XMS_ITS | Encounter Summary ---
Author Organization [facility] [place] [address] Care Team Providers Care Hydrologic Modeler Name Role Phone Marck Brody DO Primary Care Provider Reason for Visit * Reason Comments On Treatment Visit HBOT# 29 Encounter Details Date Type Department Care Team (Latest Contact Info) Description 05/19/2014 7:00 AM EST - 05/19/2014 11:59 PM EST Hospital Encounter [facility] [place] [place] [phone] Radiation injury, sequela Social History Tobacco Use Types Packs/Day [...] Sign Reading Time Taken Comments Blood Pressure 114/72 05/19/2014 9:25 AM EST Pulse 65 05/19/2014 9:25 AM EST Temperature 36.1 ??C (97 ??F) 05/19/2014 7:10 AM EST Respiratory Rate 18 05/19/2014 7:10 AM EST Oxygen Saturation - - Inhaled Oxygen Concentration - - Weight - - Height - - Body Mass Index - - documented in this encounter Medications at Time of Discharge Medication Sig Dispensed Refills Start Date End Date ROXICET 5-325 mg/5 mL Solution Take 5 mLs by mouth every 4 hours as needed for Pain for up to 12 doses. 60 mL 0 05/06/2014 05/29/2014 amoxicillin-clavulanate (AUGMENTIN) 400-57 mg/5 mL Suspension for Reconstitution Take 5 mLs by mouth 2 times daily. 100 mL 0 05/06/2014 05/29/2014 carbamide peroxide (DEBROX) 6.5 % DropsIndications:impact ed cerumen Place 5 drops into both ears 2 times daily. Indications: Impacted Cerumen 03/23/2014 05/29/2014 vitamin E 400 unit CapsuleIndications:Hype rbaric oxygen therapy Take 400 Units by mouth daily. Indications: Hyperbaric oxygen therapy 12/06/2016 UNABLE TO FIND 2 tablets daily. Med Name:taking a calcium chew 1000mg a day 07/08/2015 levothyroxine (SYNTHROID) 100 mcg TabletIndications:Histo ry of tongue cancer,Hypothyroidism (acquired) Take 1 tablet by mouth daily. 30 tablet 12 01/19/2014 01/27/2015 cevimeline (EVOXAC) 30 mg capsuleIndications:Tong ue cancer Take 1 capsule by mouth 3 times daily. 90 capsule 12 10/13/2013 10/29/2014 documented as of this encounter Progress Notes * Mary Littlejohn, FUENTES - 05/19/2014 9:03 AM EST Patient Name: Theresa Hollis Patient Age: 43 y.o. Birthdate: 1970 Admit date: 05/19/2014 Attending Physician: No att. providers found INTERVAL HISTORY: Patient denies any discomfort, changes, issues, complaints. Pain Level: __0___ (0-10 scale) * If greater than 5, document interventions. 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 100% cotton clothing in place. Patient checked for non-approved chamber items. Tympanic membranes checked. No redness or perforation noted. Patient assessed and met criteria to proceed with hyperbaric treatment. Safety checklist completed with patient. Grounding strap applied and grounding verified, patient placed in chamber, communications checked. Mary Littlejohn RN/Tamia Snow RN administered the treatment and monitored the patient. HYPERBARIC TREATMENT: Number-29 Planned number of treatments-30 Compression Rate: 1.5psi/min Decompression Rate: 2.0 psi/min TROY-2.4 Start Compression Reach Treatment Pressure - TROY Air Break Start Air Break Completed Start Decompression Treatment Completed 0716 0740 0826 0836 0911 0922 Sechrist Chamber # 1 Clinical Practice Guideline for Hyperbaric Oxygen Therapy Prevent and manage for potential problems related to 1.Barotrauma, 2.oxygen toxicity, and 3.Pneumothorax. 4. Situational Problems Assessed: ALL (Barotrauma, Oxygen Toxicity, Pneumothorax, Situational) Problems Present: (Barotrauma, Oxygen Toxicity, Pneumothorax, Situational) Equalizing ear pressure Interventions: Per Clinical Practice Guidelines for Hyperbaric Oxygen Therapy through [facility]. Patient required occasional pauses during compression to allow extra time for her to work on equalizing the pressure in her ears. Successful in equalizing pressure. Denies any pain, discomfort, unusual sensations. Alert and oriented. Steady gait. Patient assessed and found appropriate to leave the Hyperbaric area at the conclusion of today???s session. Continue HBOT as planned. Next treatment scheduled for 05/20/14. documented in this encounter Plan of Treatment Not on file documented as of this encounter Visit Diagnoses Diagnosis Radiation injury, sequela documented in this encounter Care Teams Hydrologic Modeler Relationship Specialty Start Date End Date Marck Brody DO [address] [place] [address] PCP - General 02/08/10 10/12/21 documented as of this encounter
--- OUTSIDE RECORDS SUMMARY | 2023-12-08 20:06 | XMS_ITS | Encounter Summary ---
Author Organization [facility] [place] [address] Care Team Providers Care Fire Safety Director Name Role Phone Marck Brody DO Primary Care Provider [phone] Encounter Details Date Type Department Care Team (Latest Contact Info) Description 01/25/2015 9:15 AM EST - 01/25/2015 12:26 PM [facility] Hospital Encounter [place] [phone] Hypothyroidism (acquired); Tongue cancer Discharge Disposition: Home Social History [...] Sig Dispensed Refills Start Date End Date cevimeline (EVOXAC) 30 mg CapsuleIndications:To ngue cancer Take 1 capsule by mouth 3 times daily. 90 capsule 12 10/29/2014 11/02/2015 acetaminophen (TYLENOL) 160 mg/5 mL Elixir Take 15 mg/kg/dose by mouth every 4 hours as needed for Fever. Reported on 02/24/2016 10/08/2019 CALCIUM CARBONATE/VITAMIN D2 (LIQUID CALCIUM ORAL) Take 1,000 mg by mouth. 07/08/2015 vitamin E 400 unit CapsuleIndications:Hy perbaric oxygen therapy Take 400 Units by mouth daily. Indications: Hyperbaric oxygen therapy 12/06/2016 UNABLE TO FIND 2 tablets daily. Med Name:taking a calcium chew 1000mg a day 07/08/2015 levothyroxine (SYNTHROID) 100 mcg TabletIndications:His tory of tongue cancer,Hypothyroidism (acquired) Take 1 tablet by mouth daily. 30 tablet 12 01/19/2014 01/27/2015 documented as of this encounter Plan of Treatment Not on file documented as of this encounter Procedures Procedure Name Priority Date/Time Associated Diagnosis Comments HEMOGRAM Routine 01/25/2015 9:38 AM EST Tongue cancer DIFFERENTIAL, AUTOMATED Routine 01/25/2015 9:38 AM EST Tongue cancer CBC (WITH DIFF) Routine 01/25/2015 9:38 AM EST Tongue cancer TSH Routine 01/25/2015 9:38 AM EST Hypothyroidism (acquired) COMPREHENSIVE METABOLIC PANEL Routine 01/25/2015 9:38 AM EST Tongue cancer documented in this encounter Results * (ABNORMAL) Differential, Automated (01/25/2015 9:38 AM EST) Neutrophil % 80.7 % CERNER MILLENNIUM Neutrophil Absolute 5.18 1.50 - 6.30 x10(3)/mc L CERNER MILLENNIUM Lymph % 11.5 % CERNER MILLENNIUM Lymphocytes Abs 0.7(L) 1.0 - 3.6 x10(3)/mc L CERNER MILLENNIUM Monocyte % 5.0 % CERNER MILLENNIUM Monocyte Abs 0.3 0.2 - 1.0 x10(3)/mc L CERNER MILLENNIUM Eos % 2.3 % CERNER MILLENNIUM Eosinophils Abs 0.2 0.0 - 0.5 x10(3)/mc L CERNER MILLENNIUM Basophil % 0.3 % CERNER MILLENNIUM Baso Absolute 0.0 0.0 - 0.2 x10(3)/mc L CERNER MILLENNIUM Immature Gran % 0.20 % CERN ER MILLENNIUM Comment: Immature granulocytes(IG's)percentage and absolute count will include metamyelocytes, myelocytes, and promyelocytes. Blood smears from CBCs yielding IG's will be scanned manually for concordance. If this scan disagrees with the automated IG or if promyelocytes are noted, a manual differential will be performed. Immature Gran Absolute 0.01 0.00 - 0.05 x10(3)/mc L CERNER MILLENNIUM Blood specimen (specimen) 01/25/2015 9:38 AM EST 01/25/2015 9:44 AM EST Narrative Resulting Agency Comment Spec In Lab Marck Sherman MD HEMATOLOGY ORDERABLE S CERTAMIKO BROCKENNIUM * (ABNORMAL) Hemogram (01/25/2015 9:38 AM EST) White Blood Cell 6.4 4.0 - 10.0 x10(3)/mc L CERNER MILLENNIUM Red Blood Cell 4.16 3.93 - 5.22 x10(6)/mc L CERNER MILLENNIUM Hemoglobin 14.4 11.2 - 15.7 gm/dL CERNER MILLENNIUM Hematocrit 42.2 34.0 - 45.0 % CERNER MILLENNIUM Mean Cell Volume 101.4(H) 79.0 - 94.0 fL CERNER MILLENNIUM Mean Cell Hemoglobin 34.6(H) 26.6 - 32.2 pg CERNER MILLENNIUM Mean Cell Hemoglobin Concentration 34.1 32.0 - 36.5 gm/dL CERNER MILLENNIUM Platelet 326 145 - 370 x10(3)/mc L CERNER MILLENNIUM RDW Standard Deviation 46.2(H) 35.0 - 46.0 fL CERNER MILLENNIUM RDW coefficient of variation 12.5 10.9 - 14.4 % CERNER MILLENNIUM Mean Platelet Volume 9.4 9.0 - 12.0 fL CERNER MILLENNIUM Blood specimen (specimen) 01/25/2015 9:38 AM EST 01/25/2015 9:44 AM EST Narrative Resulting Agency Comment Spec In Lab Marck Sherman MD HEMATOLOGY ORDERABLE S CERTAMIKO MILLENNIUM * Comprehensive metabolic panel (non-fasting) (01/25/2015 9:38 AM EST) [facility] Glucose 90 65 - 199 mg/dL CERNER MILLENNIUM Comment:Diabetes: >=200 mg/d L plus symptoms Blood Urea Nitrogen 8 8 - 18 mg/dL CERNER MILLENNIUM Creatinine 0.84 0.70 - 1.20 mg/dL CERNER MILLENNIUM Comment: Please note that the pediatric reference intervals supplied above were not validated at [facility]. Results from pediatric patients should be interpreted in conjunction to the patient's age, height and muscle mass. Sodium 142 135 - 145 mmol/L CERNER MILLENNIUM Potassium 4.3 3.5 - 5.0 mmol/L CERNER MILLENNIUM Comment: Please note: ??Patients with WBC >100,000 may have falsely elevated Potassium levels. ??For accurate Potassium quantification in these patients send serum separator tube (gold top) for subsequent determinations. ??Contact the Clinical Chemistry Laboratory if there are any questions. Chloride 103 98 - 107 mmol/L CERNER MILLENNIUM Carbon Dioxide 27 22 - 31 mmol/L CERNER MILLENNIUM Anion Gap 12 5 - 15 mmol/L CERNER MILLENNIUM Calcium 9.8 8.5 - 10.5 mg/dL CERNER MILLENNIUM Protein, Total 7.2 6.1 - 8.0 gm/dL CERNER MILLENNIUM Albumin 4.5 3.2 - 5.2 gm/dL CERNER MILLENNIUM Aspartate Aminotransferase 21 0 - 30 unit/L CERNER MILLENNIUM Alanine Aminotransferase 17 0 - 30 unit/L CERNER MILLENNIUM Alkaline Phosphatase 50 40 - 104 unit/L CERNER MILLENNIUM Bilirubin, Total 0.4 0.2 - 1.3 mg/dL CERNER MILLENNIUM Bilirubin, Direct 0.1 0.0 - 0.3 mg/dL CERNER MILLENNIUM Est Glomerular Filtration Rate >60 >=60 CERNER MILLENNIUM Comment: This estimated GFR (eGFR) value was [...] the following links into your internet browser. [email or web address] Blood specimen (specimen) 01/25/2015 9:38 AM EST 01/25/2015 9:44 AM EST Narrative Resulting Agency Comment Spec In Lab Marck Sherman MD CHEMISTRY ORDERABLES Performing Organization Address [facility] de Phone Number KAED BROCKHorizon StudiosCAP[facility] * TSH (01/25/2015 9:38 AM EST) Thyroid Stimulating Hormone 2.35 0.27 - 4.20 mcIU/mL [facility] Blood specimen (specimen) 01/25/2015 9:38 AM EST 01/25/2015 9:44 AM EST Narrative Resulting Agency Comment Spec In Lab Marck Sherman MD CHEMISTRY ORDERABLES Performing Organization Address [facility] de Phone Number KADE BROCKHorizon StudiosJAKE documented in this encounter Visit Diagnoses Diagnosis Hypothyroidism (acquired) Unspecified hypothyroidism Tongue cancer Malignant neoplasm of tongue, unspecified site documented in this encounter Care Teams Fire Safety Director Relationship Specialty Start Date End Date Marck Brody DO [address] [place] [address] PCP - General 02/08/10 10/12/21 documented as of this encounter
--- OUTSIDE RECORDS SUMMARY | 2023-12-08 20:06 | XMS_ITS | Encounter Summary ---
Author Organization [facility] Address [facility] [place] [address] Care Team Providers Care Tool And Fixture Repairer Name Role Phone Marck Brody DO Primary Care Provider [phone] Encounter Details Date Type Department Care Team (Latest Contact Info) Description 02/07/2016 10:47 AM EST - 02/07/2016 11:59 PM EST Hospital Encounter Radiology Library at [facility] [place] [phone] Dar Turner MD [facility] [place] [address] Cancer of head and neck Discharge Disposition: [...] mouth 3 times daily. 90 capsule 12 11/02/2015 11/17/2016 calcium carbonate (TUMS) 200 mg calcium (500 mg) Tablet, Chewable Take 2 tablets by mouth daily. 03/22/2020 levothyroxine (SYNTHROID) 100 mcg TabletIndications:His tory of tongue cancer,Hypothyroidism (acquired) Take 1 tablet by mouth daily. 30 tablet 12 01/27/2015 02/14/2016 acetaminophen (TYLENOL) 160 mg/5 mL Elixir Take 15 mg/kg/dose by mouth every 4 hours as needed for Fever. Reported on 02/24/2016 10/08/2019 vitamin E 400 unit CapsuleIndications:Hy perbaric oxygen therapy Take 400 Units by mouth daily. Indications: Hyperbaric oxygen therapy 12/06/2016 documented as of this encounter Plan of Treatment Not on file documented as of this encounter Procedures Procedure Name Priority Date/Time Associated Diagnosis Comments REQUEST FOR 2ND READ CT HEAD AND SPINE Routine 02/07/2016 10:48 AM EST Cancer of head and neck documented in this encounter Results * Request For 2nd Read CT Head And Spine (02/07/2016 10:48 AM EST) Anatomical Region Laterality Modality Head, C-spine, T-spine, L-spine Computed Tomography Impressions 02/07/2016 11:59 AM EST Oblique fracture through the left mandible in the setting of abnormal appearance of the bone. 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 There is no soft tissue mass or pathologic adenopathy. Narrative 02/07/2016 11:59 AM EST EXAMINATION: REQUEST FOR 2ND READ CT HEAD AND SPINE CLINICAL HISTORY: patient with history of head and neck cancer treated in 2008. Concerning imaging of CT of neck (done at [facility]) I have requested that images be sent to [facility]. Patient does report jaw pain, please compare to previous studies to evaluate for possible disease recurrence in jaw, What Modality is the exam? CT Scan, Body Part (please add comments as necessary): head and neck, I believe a reinterpretation of TECHNIQUE: CT the neck performed following intravenous administration of Omnipaque 350. The amount contrast is not provided. Study was performed using breath-hold technique. COMPARISON: PET CT 07/02/2008, CT 02/20/2007 FINDINGS: There are postsurgical changes in the neck without focal soft tissue mass or new pathologic adenopathy identified. Evaluation of mucosal surfaces of the region of the glottis is limited by breath-hold technique. There is a new pathologic fracture extending through the mandible on the left, with additional periapical lucency and bone loss anteriorly in the mandible at the level of the central incisors. The fracture through the body of mandible on the left is through an area of fragmentation and bone heterogeneity. No associated soft tissue mass is identified. There is no aggressive osseous lesion elsewhere. Procedure Note Thong Shah MD - 02/07/2016 EXAMINATION: REQUEST FOR 2ND READ CT HEAD AND SPINE CLINICAL HISTORY: patient with history of head and neck cancer treated [id number]. Concerning imaging of CT of neck (done at [facility]) I have requested thatimages be [facility]. Patient does report jaw pain, please compare to previousstudies to evaluate for possible disease recurrence in jaw, What Modality is theexam? CT Scan, Body Part (please add comments as necessary): head and neck, Ibelieve a reinterpretation of TECHNIQUE: CT the neck performed following intravenous administration of Omnipaque 350. The amount contrast is not provided. Study was performedusing breath-hold technique. COMPARISON: PET CT 07/02/2008, CT 02/20/2007 FINDINGS: There are postsurgical changes in the neck without focal softtissue mass or new pathologic adenopathy identified. Evaluation of mucosalsurfaces of the region of the glottis is limited by breath-hold technique. There is a new pathologic fracture extending through the mandible on theleft, with additional periapical lucency and bone loss anteriorly in themandible at the level of the central incisors. The fracture through the body ofmandible on the left is through an area of fragmentation and bone heterogeneity. No associated soft tissue mass is identified. There is no aggressive osseouslesion elsewhere. IMPRESSION Oblique fracture through the left mandible in the setting of abnormalappearance of the bone. 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 Dar Turner MD IMG OUTSIDE INTERPRE TATION ORDERABLES documented in this encounter Visit Diagnoses Diagnosis Cancer of head and neck documented in this encounter Care Teams Tool And Fixture Repairer Relationship Specialty Start Date End Date Marck Brody DO [address] [place] [address] [address] [facility] [address] [place] [address] PCP - General 02/08/10 10/12/21 documented as of this encounter
--- OUTSIDE RECORDS SUMMARY | 2023-12-08 20:06 | XMS_ITS | Encounter Summary ---
Author Organization [facility] [place] [address] Care Team Providers Care Laundry Bag Punch Operator Name Role Phone Marck Brody DO Primary Care Provider Encounter Details Date Type Department Care Team (Late st Contact Info) Description 08/07/2016 Telephone [place] [phone] Natalie Harris APRN [address] [place] [address] [place] [address] Social History Tobacco Use Types [...] Telephone Encounter - Natalie Harris APRN - 08/07/2016 8:31 AM EDT Call from Theresa indicating that she is having pain involving her tongue--at the tip and along the edge Theresa reports that she had the flu in June and pain started soon after that. She was seen by her PCP and was diagnosed with Strep and treated with clindamycin. The pain persisted and she again saw her PCP who did a culture and it demonstrated strep again so she was then treated with a z-pack. The pain has not resolved and she is concerned. We discussed being seen by ENT and she agrees. Will request evaluation by Dr Lee. documented in this encounter Plan of Treatment Not on file documented as of this encounter Visit Diagnoses Not on filedocumented in this encounter Care Teams Laundry Bag Punch Operator Relationship Specialty Start Date End Date Marck Brody DO [address] [place] [address] PCP - General 02/08/10 10/12/21 documented as of this encounter
--- OUTSIDE RECORDS SUMMARY | 2023-12-08 20:06 | XMS_ITS | Encounter Summary ---
Author Organization [facility] Address [facility] [place] [address] Care Team Providers Care Insurance Risk Manager Name Role Phone Marck Brody DO Primary Care Provider Reason for Visit * Reason Comments Teeth Problems loose anterior olaf bular tooth Encounter Details Date Type Department Care Team (Late st Contact Info) Description 11/02/2015 1:15 PM EDT Office Visit [place] [phone] Alfred Vital MD [facility] ORAL [place] [address] Periodontal disease Social History Tobacco Use Types [...] - Inhaled Oxygen Concentration - - Weight 47.6 kg (105 lb) 11/02/2015 1:19 PM EDT Height - - Body Mass Index 18.9 07/08/2015 11:12 AM EDT documented in this encounter Progress Notes * Alfred Vital MD - 11/02/2015 1:15 PM EDT Oral & Maxillofacial Surgery Lesion Follow Up Theresa Hollis returns for follow up extraction teeth #18 & 19 and bone biopsy on 05/06/14 with perioperative HBO therpay. She presents today for discussion regarding possible extraction of a mobile, anterior mandibular tooth. ?? ---Pathologic Diagnosis--- A - Extraction site, tooth #19, curetting: Lamellar bone and soft tissue with chronic inflammation and granulation tissue; negative for malignancy. B - Bone between the roots of tooth 18, curetting: Portion of tooth, negative for malignancy. Interval History: Theresa was questioned with regards to new lumps or bumps,intra or extraoral drainage, difficulty chewing or swallowing, oral bleeding, dysarthria or altered oral sensation from priorexamination. Weight and appetite were evaluated and pertinent interval changes include: ?? She has been sticking to a mostly soft diet, and tries to avoid biting into foods ?? No discomfort, swelling, nor drainage ?? Anterior mandibular tooth is mobile and has a funny feeling but not pain. ?? She was referred to Dr. Moreno for a prosthetic appliance in case of loss of anterior tooth Patient Active Problem List Diagnosis Code ??? Hypothyroidism (acquired) E03.9 ??? Tongue cancer C02.9 ??? Tinnitus H93.19 ??? History of tongue cancer Z85.810 ??? Radiation injury T66.XXXA ??? DIFFICULT AIRWAY T88.4XXA ??? Periodontal disease K05.6 Complete review of systems with attention to constitution, pulmonary, cardiac and renal status, ability to exercise and ambulate, gastrointestinal function and neurologic status was conducted. Remarkable findings noted above. Clinical Examination: Visual and bimanual examination of the head and neck was conducted. Specific attention was given to surgical or pathologically involved sites, symmetry of architecture and function, TMJ function and range of jaw motion, tongue surface appearance and consistency, floor of mouth, labial and buccal mucosa, hard and soft palate and oropharynx. Dentition and supporting structuresas well as occlusion were examined where appropriate. The neck was examined with attention to muscular, vascular and lymphatic anatomy. Pertinent findings include: ?? Maximum inter-incisal distance 23 mm ?? Left mandibular body at site of prior extraction, normal mucosalization without exposure of bone ?? Recession on gingiva distal to 2nd premolar left mandible - tooth is firm ?? Class I molar relationship on the right ?? Moderate periodontal recession involving lower left central incisor ?? Oropharynx - telangiectasia of mucosa ?? No adenopathy ?? No elevation in the floor of the mouth ?? Significant mucogingival disorder involving the lower left central incisor Pertinent imaging studies: prior panorex radiograph obtained 06/09/14 is reviewed demonstrating lucency in the anterior incisal region Impression: Incisor is loose; she has had HBO in the past; given the mobility of the tooth, it could be extracted and a false tooth bonded in its place to maintain the space. The bonding could extendto both lower canines thereby providing support for the remaining lower incisors; one was previously extracted for orthodontic indications. Recommendations and Plan: Tooth #24 could be extracted and then guerrero anterior mandibular dentition and bridge to reinforce anterior dentition pending evaluation by her dentist. I would not think thata removable appliance would be better for her. Time Statement: Fifteen minutes was spent with the patient greater than 10 minutes of which involved direct discussion with the patient reviewing the findings on examination and the implications for treatment or continued observation. Radiographs were reviewed where appropriate and questions regarding today's visit were answered. The patient was reminded to contact us if there were any further concerns. Nenita Romano, PULP GRINDER FEEDER, am acting as scribe for Dr. Vital. All work documented was performed by Dr. Vital. Alfred Romano, performed the above scribed service and agree with the accuracy of the note. documented in this encounter Plan of Treatment Not on file documented as of this encounter Visit Diagnoses Diagnosis Periodontal disease Unspecified gingival and periodontal disease documented in this encounter Care Teams Insurance Risk Manager Relationship Specialty Start Date End Date Marck Brody DO [address] [place] [address] PCP - General 02/08/10 10/12/21 documented as of this encounter
--- OUTSIDE RECORDS SUMMARY | 2023-12-08 20:06 | XMS_ITS | Encounter Summary ---
Author Organization [facility] Address [facility] [place] [address] Care Team Providers Care Claims Coordinator Name Role Phone Marck Brody DO Primary Care Provider [phone] Reason for Visit * Reason Comments Follow-up ORN Jaw Pain pathologic mandible fracture Encounter Details Date Type Department Care Team (Late st Contact Info) Description 02/24/2016 4:00 PM EST Office Visit [place] [phone] Alfred Vital MD [facility] ORAL AND [place] [address] Pathological fracture of mandible (Primary Dx) Social History Tobacco [...] - Inhaled Oxygen Concentration - - Weight 45.1 kg (99 lb 6 oz) 02/24/2016 4:[address] Height - - Body Mass Index 17.9 02/24/2016 10:26 AM EST documented in this encounter Progress Notes * Alfred Vital MD - 02/24/2016 4:00 PM EST Oral & Maxillofacial Surgery Lesion Follow Up Theresa Hollis returns for follow up of ORN with probable pathologic fracture of the left mandible. ---Pathologic Diagnosis--- A - Extraction site, tooth [...] evaluated and pertinent interval changes include: ?? Believes she fractured her jaw in December ?? Believes that she was suppressing a yawn when she felt a crack in the jaw bone ?? No swelling; did not experience any change in occlusion of her right sided dentition ?? No drainage ?? Numbness of the anterior left mandible was noted after fracture but not right away; has improvedto about a 1/4 of what it was initially ?? Pain noted on fracture has subsided and she denies pain/discomfort at this time ?? Weight and appetite are stable ?? Continues to chew on the right side only ?? 4 dental extractions were planned for the end of January; she called to cancel the extractions after her fracture ?? Dr. mason prescribed Penicillin for dental abscess; stopped taking when she developed what shebelieved was thrush; seen by Dr. Sherman today who diagnosed thrush and has prescribed nystatin. ?? 01/14/07 last radiation treatment. We have extracted two teeth in the left posterior mandible following hyperbaric oxygen. Complete review of systems with attention to constitution, pulmonary, cardiac and renal status, ability to exercise and ambulate, gastrointestinal function and neurologic status was conducted. Patient Active Problem List Diagnosis Code ??? Hypothyroidism (acquired) E03.9 ??? Tongue cancer C02.9 ??? Tinnitus H93.19 ??? History of tongue cancer Z85.810 ??? Radiation injury T66.XXXA ??? DIFFICULT AIRWAY T88.4XXA ??? Periodontal disease K05.6 Clinical Examination: Visual and bimanual examination of [...] and lymphatic anatomy. Pertinent findings include: ?? Class I molar relationship on the right ?? Moderate trismus - unchanged from prior exams ?? Moderate xerostomia ?? Moderate plaque associated with tooth # 15 ?? Tooth # 20 has minor mobility ?? Minor erosion on the mesial aspect of tooth # 20 ?? Minor gingival recession on the distal of tooth # 20 ?? Moderate gingival recession between two lower anterior incisors on the labial aspect of the ridge ?? No obvious bone exposure intraorally on today's exam ?? No swelling, discomfort, or obvious expansion of bone, but doughy consistency of perimandibular tissues at the left 1st molar level ?? Good sharp/dull discrimination and directional sensation as well as light touch on the lip and chin ?? No facial or cervical swelling ?? Sharp/dull discrimination normal; light touch is normal and direction sensitivity is normal on both sides of the lower lip as noted above Pertinent imaging studies: Prior CT scan obtained in January was reviewed. There is no 3-dimensional scan and the views are somewhat suboptimal but they demonstrate moth eaten appearance of the leftmandibular body. Impression: ORN with pathologic or near pathologic fracture; presently she has minimal symptoms andstrongly wants to continue working. Recommendations and Plan: 3D reconstruction of CT scan obtained at [facility] on 02/01/16 if possible. May be able to take a different antibiotic that does not cause as much of a fungal reaction. Would need to speak with infectious disease regarding this. As long as pain, drainage, and bone exposure are not present, she can consider options. These include resection of bone; resection with plate reconstruction and radial forearm flap or resection with free fibula reconstruction. Given prior surgery and radiation, the presence of viable recipient vessels is also of concern and she would need angiography to assess her lower extremity circulation. Although it was difficult to discuss during her consultation today, resection would likely involve the removal of the two lower incisors and all other teeth in the left mandibular region with placement of a segmented fibula and some associated lower facial changes which although minimized with virtual surgical planning would still result in some limitations. BMP and other graft substitutes were also discussed but would be compromised by the prior radiation treatment. We will review findings with Dr. Lee and try to arrive at the most beneficial modality of intervention. Time Statement: Forty minutes was spent with the patient greater than 30 minutes of which involved direct discussion with the patient regarding clinical findings, their significance and implications for care. IMaryellen, CLAIM TAKER II, am acting as scribe for Dr. Vital. All work documented was performed byDr. Vital. Alfred Romano, performed the above scribed service and agree with the accuracy of the note. documented in this encounter Plan of Treatment Not on file documented as of this encounter Visit Diagnoses Diagnosis Pathological fracture of mandible- Primary documented in this encounter Care Teams Claims Coordinator Relationship Specialty Start Date End Date Marck Brody DO [address] [place] [address] PCP - General 02/08/10 10/12/21 documented as of this encounter
--- OUTSIDE RECORDS SUMMARY | 2023-12-08 20:06 | XMS_ITS | Encounter Summary ---
Author Organization [facility] [address] Care Team Providers Care Triple Drum Operator Name Role Phone Marck Brody DO Primary Care Provider [phone] Encounter Details Date Type Department Care Team (Late st Contact Info) Description 10/27/2016 Telephone Hematology [place] [phone] Mesha Briggs, RN Social History Tobacco Use [...] Telephone Encounter - Mesha Briggs RN - 10/27/2016 8:37 AM EDT Message received from clinical machine slat basket maker:Please call patient at [phone] with TSH results Call placed to patient updated her that her TSH level is 0.82 Pt in agreement with plan and knows to call clinic with any concerns and/or questions. documented in this encounter Plan of Treatment Not on file documented as of this encounter Visit Diagnoses Not on filedocumented in this encounter Care Teams Triple Drum Operator Relationship Specialty Start Date End Date Marck Brody DO [address] [facility] [address] [place] [address] PCP - General 02/08/10 10/12/21 documented as of this encounter
--- OUTSIDE RECORDS SUMMARY | 2023-12-08 20:06 | XMS_ITS | Encounter Summary ---
Author Organization [facility] [place] [address] Care Team Providers Care Lead Nuclear Medicine Technologist Name Role Phone Marck Brody DO Primary Care Provider Encounter Details Date Type Department Care Team (Late st Contact Info) Description 05/10/2016 Telephone Hematology [place] [address] Mesha Briggs, RN Social History [...] Miscellaneous Notes * Telephone Encounter - Mesha Mendoza, RN - 05/10/2016 1:58 PM EST Message received from clinical elementary secretary: Patient called in today because she was under the impression that she should be getting her TSH checked this month because Dr. Sherman changed her medication dose. I do not see anything in the system stating this. Theresa can be reached at [phone] Spoke w/Kimberly Montano APRN who put orders in for labs and office visit at [facility] in [facility]. Message sent to clinical secretaries to please schedule patient for labs and office visit with Kimberly Montano in [facility]. Call placed to patient left message on answering machine updating her on plan. Contact name and number provided for any questions and/or concerns. documented in this encounter Plan of Treatment Not on file documented as of this encounter Visit Diagnoses Not on filedocumented in this encounter Care Teams Lead Nuclear Medicine Technologist Relationship Specialty Start Date End Date Marck Brody DO [address] [place] [address] PCP - General 02/08/10 10/12/21 documented as of this encounter
--- OUTSIDE RECORDS SUMMARY | 2023-12-08 20:06 | XMS_ITS | Encounter Summary ---
[place] [address] Care Team Providers Care Assembler Gold Frame Name Role Phone Marck Brody DO Primary Care Provider [phone] Reason for Visit * Reason Comments Other question about labs Encounter Details Date Type Department Care Team (Late st Contact Info) Description 04/29/2015 Telephone [place] [address] Neo Sherman RN Other (question about labs) Social History Tobacco Use Types Packs/Day Years [...] Telephone Encounter - Neo Sherman RN - 04/29/2015 5:35 PM EST incoming staff message: ?? received a call from Ms. Hollis she feels that her thyroid levels could be off and was wondering if we could send a lab order to her home address so she could have her thyroid tested in [facility]. Discussed with Dr. Sherman: recent tsh labs have been within normal limits, and if she is not feelingright, it would be best to have her f/u with her food specialist and he can determine if she needs to be retested. Returned call to patient: Spoke with patient's , who relayed message to patient: She agreed with plan and will contact her PCP. documented in this encounter Plan of Treatment Not on file documented as of this encounter Visit Diagnoses Not on filedocumented in this encounter Care Teams Assembler Gold Frame Relationship Specialty Start Date End Date Marck Brody DO [facility] [address] [place] [address] PCP - General 02/08/10 10/12/21 documented as of this encounter
--- OUTSIDE RECORDS SUMMARY | 2023-12-08 20:06 | XMS_ITS | Encounter Summary ---
Author Organization [facility] Address [facility] [place] [address] Care Team Providers Care Grain Manager Name Role Phone Marck Brody DO Primary Care Provider [phone] Reason for Visit * Reason Comments Follow-up Periodontal disease ho tongue ca sp radiation therapy Encounter Details Date Type Department Care Team (Late st Contact Info) Description 10/20/2014 8:30 AM EDT Follow-Up [place] [phone] Alfred Vital MD [facility] ORAL AND [place] [address] Osteoradionecrosis of jaw Discharge Disposition: Home Social [...] Sign Reading Time Taken Comments Blood Pressure 123/64 10/20/2014 8:29 AM EDT Pulse 80 10/20/2014 8:29 AM EDT Temperature - - Respiratory Rate 18 10/20/2014 8:29 AM EDT Oxygen Saturation - - Inhaled Oxygen Concentration - - Weight - - Height - - Body Mass Index - - documented in this encounter Progress Notes * Alfred Vital MD - 10/20/2014 8:29 AM EDT Oral & Maxillofacial Surgery Lesion Follow Up Theresa Hollis returns for follow up of extraction teeth #18 & 19 and bone biopsy on 05/06/14 with perioperative HBO therpay. ---Pathologic Diagnosis--- A - Extraction site, tooth [...] were evaluated and pertinent interval changes include: Interval History: Theresa was questioned with regards to new lumps or bumps,intra or extraoral drainage, difficulty chewing or swallowing, oral bleeding, dysarthria or altered oral sensation from priorexamination. Weight and appetite were evaluated and pertinent interval changes include: ?? Denies symptoms ?? Had a piece of rice caught that was causing discomfort, once removed symptoms resolved ?? She is very careful with food entrapment and oral hygiene ?? 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 Wants to eat pineda strips, hard crusted bread and pringles Patient Active Problem List Diagnosis Code ??? Hypothyroidism (acquired) 244.9 ??? Tongue cancer 141.9 ??? Tinnitus 388.30 ??? History of tongue cancer V10.01 ??? Radiation injury 990 ??? DIFFICULT AIRWAY ??? Periodontal disease 523.9 Clinical Examination: Visual and bimanual examination of [...] and lymphatic anatomy. Pertinent findings include: ?? Mandibular ROM 25 mm inter-incisal distance - same as when she was using therabyte ?? Hard and soft palate mucosa WNL ?? No evidence of bone exposure ?? Surgical site is well mucosalized at present ?? Gingival recession distal tooth #20 with moderate plaque and 1/4 mobility ?? Right mandibular ridge WNL ?? Tooth #24 periodontal defect labially ?? Tongue demonstrates changes consistent with radiation treatment ?? Moderate xerostomia Pertinent imaging studies: prior photographs are reviewed; radiographs demonstrating moderate periodontal defect posterior to tooth #20. Impression: Stable; no evidence of infection or bone exposure; moderate periodontal defect as described above Recommendations and Plan: Plaque and gingival recession are demonstrated in the mirror with Theresa. She is encouraged to maintain good hygiene and this will require some modified instrumentation distal to #20 - perhaps with more frequent hygiene visits. Caution with eating crusty bread and abrasive foods. Follow up PRN. Time Statement: Fifteen minutes was spent with the patient greater than 13 minutes of which involved direct discussion with the patient reviewing the findings on examination and the implications for treatment or continued observation. Radiographs were reviewed where appropriate and questions regarding today's visit were answered. The patient was reminded to contact us if there were any further concerns. Nenita Romano, KAROL, am acting as scribe for Dr. Vital. All work documented was performed by Dr. Vital. Alfred Romano, performed the above scribed service and agree with the accuracy of the note. 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
--- OUTSIDE RECORDS SUMMARY | 2023-12-08 20:06 | XMS_ITS | Encounter Summary ---
Author Organization [facility] [place] [address] Care Team Providers Care Quarryman Name Role Phone Marck Brody DO Primary Care Provider Encounter Details Date Type Department Care Team (Late st Contact Info) Description 01/20/2016 [place] [phone] Ritesh June Social History Tobacco Use Types Packs/Day Years [...] encounter Miscellaneous Notes * Telephone Encounter - Ritesh June - 01/20/2016 1:19 PM EDT Spk to pt-Dr. Lee is not in on 02/23. Pt requested that I call and lm at home on , which I did. She will still see Dr. Sherman on that day and other appts and she can call if she wants to come in to see Dr. Lee on another day or just follow up next time. documented in this encounter Plan of Treatment Not on file documented as of this encounter Visit Diagnoses Not on filedocumented in this encounter Care Teams Quarryman Relationship Specialty Start Date End Date Marck Brody DO [address] [place] [address] PCP - General 02/08/10 10/12/21 documented as of this encounter
--- OUTSIDE RECORDS SUMMARY | 2023-12-08 20:06 | XMS_ITS | Encounter Summary ---
Author Organization [facility] Address [facility] [place] [address] Care Team Providers Care Sand Mixer Name Role Phone Marck Brody DO Primary Care Provider Reason for Visit * Reason Comments Allergies * Allergy Testing (Routine) - Closed Specialty Diagnoses / Procedures Referred By Shirley cuevas Referred To Contact Allergy Diagnoses Allergic symptoms, initial encounter Patient with recently noted reaction (increased secretions and airway closing up) with certain foods, possiblly shrimp. Patient also has altered oral anatomy, s/p left lateral glossectomy, neckdissection of levels 1-5, and adjuvant chemorads in 2006 Hermelindo Kearney PA [facility] [place] [address] [facility] [place]ergy [address] [place] [address] Referral ID Status Reason Start Date Expiration Date V isits Requested Visits Authorized [id number] Closed Consult, Test & Treat 08/28/2016 08/28/2017 1 1 Encounter Details Date Type Department Care Team (Late st Contact Info) Description 10/10/2016 1:00 PM EDT [place] [phone] Gabrielle Ortiz MD [facility] DR RASHEED [place] [address] Throat pain; Food allergy; Chronic vasomotor rhinitis; Drug reaction, initial encounter Social History Tobacco Use Types [...] Sign Reading Time Taken Comments Blood Pressure 109/75 10/10/2016 12:59 PM EDT Pulse 87 10/10/2016 12:59 PM EDT Temperature - - Respiratory Rate - - Oxygen Saturation - - Inhaled Oxygen Concentration - - Weight 45.4 kg (100 lb) 10/10/2016 12:59 PM EDT Height 157.5 cm (5' 2) 10/10/2016 12:59 PM EDT Body Mass Index 18.29 10/10/2016 12:59 PM EDT documented in this encounter Patient Instructions * Patient Instructions* Gabrielle Ortiz MD - 10/10/2016 1:00 PM EDT Mucus production after eating: 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 Likely acidic foods cause an irritant reaction and worsen gustatory rhinitis - Testing to shrimp, cod, salmon borderline; not clear positive. Crab and lobster tests negative. Get blood testing. If this is also negative, I recommend we do a food challenge in the office so I can monitor your reaction in person. - try ipratropium 2 spray each nostril twice a day. Can use up to 4 times a day if helpful Reactions to oral anesthetic and mouthwashes are likely irritant reactions - skin testing negative.Reactions to local anesthetics are very rare. documented in this encounter Progress Notes * Gabrielle Ortiz MD - 10/10/2016 1:00 PM EDT CC: allergies HPI: Theresa Hollis is a 46 y.o. female with a PMH of tongue cancer s/p resection, radiation, andchemo presenting for evaluation of allergies and mucous production at the request of Hermelindo Kearney. Patient is accompanied by her . She has a past medical history of oral cancer, status post surgery, radiation, and chemotherapy. She reports that since getting radiation, she has had a lot of mucous production and it has been worse with eating since February of 2016. She states that she will get runny nose, mucous production in her mouth. This can cause wheezing in her throat and sometimes she states her throat feels tight. When she coughs up the mucous, it helps. She has noticed certain triggers include acidic foods such as tomatoes and tartar sauce. However, it does not occur every time and depends on the amount she eats. She also had another episode where she ate seafood chowder that was cream based and experienced throat pain, but no rash and wheezing, shortly after eating it. She is not sure exactly what was in the chowder but she thinks it may have had shrimp and cod. She has eaten scallops and clams since then without any problems but has avoided other seafood. She thinks that Indonesian food in general is sometimes a trigger for the mucous production. She admits to local reactions with topical products and states that chlorhexidine has caused mouth Burning. Other mouthwashes burn her mouth include the ACT [id number] dry mouth rinse. She states that she was using an oral anesthetic as well that caused symptoms. States that she had been experiencing oral pain and possibly ulcers while using benzocaine orajel after meals - had been using it for 2y and when stopped it symptoms resolved. Also used magic mouthwash which contained Milk of Magnesia, lidocaine, and Benadryl and experienced mouth pain with this. She did not have any rash or irritation of the oral cavity that she could tell. She denies a history of seasonal allergies, known food allergies, eczema, or asthma. She denies any rash, itching, or hives with any of these reactions. Review of systems is per HPI plus she admits to ringing her ears after chemotherapy, nasal congestion after the radiation, sores in her mouth, difficulty swallowing after the radiation, heartburn, cough after radiation therapy, and thyroid problems. Review of systems otherwise negative. Patient Active Problem List Diagnosis Code ??? Hypothyroidism (acquired) E03.9 ??? Tongue cancer C02.9 ??? Tinnitus H93.19 ??? History of tongue cancer Z85.810 ??? Radiation injury T66.XXXA ??? DIFFICULT AIRWAY T88.4XXA ??? Periodontal disease K05.6 Past Medical History: Diagnosis Date ??? Breast cancer ??? Cancer of head, face, and neck ??? Hypothyroidism Past Surgical History: Procedure Laterality Date ??? GLOSSECTOMY Right partial ??? LYMPHADENECTOMY SND 1-5 ??? PRO BONE BIOPSY,TROCAR/NEEDLE SUPERF Left 05/06/2014 BIOPSY BONE, TROCAR OR NEEDLE, SUPERFICIAL, MANDIBLE performed by Alfred Vital MD at [facility] ??? PRO REMOVAL ERUPTED TOOTH WITH ELEVATION OF MUCOPERIOSTEAL FLAP N/A 05/06/2014 SURGICAL EXTRACTIONS REQUIRING ELEVATION OF MUCOPERIOSTEAL FLAP AND REMOVAL OF BONE OR SECTION OF TOOTH performed by Alfred Vital MD at [facility] OR ??? SKIN GRAFT ??? levothyroxine (SYNTHROID) 112 mcg Tablet ??? cevimeline (EVOXAC) 30 mg Capsule ??? calcium carbonate (TUMS) 200 mg calcium (500 mg) Tablet, Chewable ??? vitamin E 400 unit Capsule ??? ipratropium (ATROVENT) 0.03 % [place], Non-Aerosol ??? acetaminophen (TYLENOL) 160 mg/5 mL Elixir Allergies Allergen Reactions ??? Benzocaine Made pt tongue red and angry. Irritant reaction - allergy testing negative ??? Lidocaine Viscous [Lidocaine Hcl] Irritant reaction - allergy testing negative Family History Problem Relation Age of Onset ??? Breast Cancer Maternal Grandmother ??? Eczema Mother Social History Social History ??? Marital status: [...] ??? 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 There is no central a/c. There is not a woodstove. The patient has seen no pests around the home. There is no known mold or mildew. The patient does not live on a farm. The patient is not exposed to farm animals. Pets: 1 dog PHYSICAL EXAM: BP 109/75 Pulse 87 Ht 157.5 cm (5' 2) Wt 45.4 kg (100 lb) BMI 18.29 kg/m2 Gen: AAOx3, no acute distress HEENT: Tympanic membranes clear, no lesions, erythema, or drainage. Conjunctiva not injected. Nasalpassages show pale, enlarged turbinates bilaterally. OP with post-surgical changes s/p right partial tongue resection. Oral mucosa looks pink, smooth, moist without ulceration, erythema, induration NECK: supple, no lymphadenopathy CVS: RRR, no m/r/g LUNGS: CTAB, no wheezing or rales ABD: soft, non-tender, non-distended SKIN: no rashes EXTREMITIES: warm and well-perfused, no edema SKIN TESTING: DRUGS: SPT Histamine 5, 22 Saline 0, 2 Lidocaine 1% - neg Benzocaine 20% - neg Chlorhexidine 4mg/mL - neg ID Saline 5, 5 Lidocaine 1:10 - neg Chlorhexidine 0.002mg/mL - neg FOODS: Glycerine 2, 2 SPT Crab (-) Lobster (-) Shrimp (2, 5) - neg Cod (3, 12) - borderline but neg Mckean (2, 6) - neg Tomato (-) ASSESSMENT AND PLAN: 46 y.o. female with mucous production after eating, oral pain after local anesthetics and also after a dish with shrimp and cod. Tissue damage after surgery/radiation/chemo can cause abnormal sensations and mucosal dysfunction. Most likely her symptoms, which began after these treatments, are due to irritant reactions and abnormal mucosal/neurologic function in the mouth. Gustatory rhinitis, a form of rhinitis that triggers mucus production when eating, is due to abnormal vagal function and most likely explains most of her symptoms with foods, especially things like acidic foods that can be irritants. She did have some borderline responses to fish so I will send labs to confirm. Testing to local anesthetics negative so I would consider these irritant reactions as well. - allergy testing to tomato negative. Likely acidic foods cause an irritant reaction and worsen gustatory rhinitis - Testing to shrimp, cod, salmon borderline; not clear positive. Crab and lobster tests negative. Sent sIgE - if also negative will recommend food challenge, if positive will recommend avoidance. - try ipratropium 2 spray each nostril twice a day. Can use up to 4 times a day if helpful - reactions to oral anesthetic and mouthwashes are likely irritant reactions - skin testing negative. Reactions to local anesthetics are very rare. ADDENDUM: shrimp (3.0), cod (3.45), salmon (3.48) all mildly positive. Will recommend avoidance of shellfish and fish and carry epipen. Called patient to discuss results. Recommended avoid all seafood. She states that she ate tuna on a sandwich recently and felt throat soreness again so agrees withavoidance. Also mentioned she developed throat tightness with eggs recently on two occasions and also felt SOB while eating sesame chicken mohawk food. Wonder if sesame chicken could be contaminatedby fish. Recommend keeping tracking of what she has noticed symptoms with so we can bring her in for testing. Recommended tell restaurants of seafood allergy to avoid cross-contamination, which is possible. Carry epipen. Also sent letter, which pt requested, with summary of results. - ELR 10/23/2016 10:27 AM Orders Placed This Encounter Procedures ??? Shrimp IgE ??? Codfish IgE ??? Mckean IgE documented in this encounter Plan of Treatment Not on file documented as of this encounter Procedures Procedure Name Priority Date/Time Associated Diagnosis Comments LAB SCAN 10/26/2016 12:00 AM EDT ALLERGY SCAN 10/25/2016 12:00 AM EDT LAB SCAN 10/25/2016 12:00 AM EDT SHRIMP IGE Routine 10/10/2016 3:08 PM EDT Throat pain CODFISH IGE Routine 10/10/2016 3:08 PM EDT Throat pain SALMON IGE Routine 10/10/2016 3:08 PM EDT Throat pain documented in this encounter Results * SCAN DOC: LAB (10/26/2016 12:00 AM EDT) Narrative 10/26/2016 12:00 AM EDT Ordered by an unspecified provider. Scanning Provider MEDIA MGR SCAN EXT O RDR/RSLT * SCAN DOC: ALLERGY (10/25/2016 12:00 AM EDT) Narrative 10/25/2016 12:00 AM EDT Ordered by an unspecified provider. Scanning Provider MEDIA MGR SCAN EXT O RDR/RSLT * SCAN DOC: LAB (10/25/2016 12:00 AM EDT) Narrative 10/25/2016 12:00 AM EDT Ordered by an unspecified provider. Scanning Provider MEDIA MGR SCAN EXT O RDR/RSLT * Mckean IgE (10/10/2016 3:08 PM EDT) Sarahy, IgE 3.48 kU/L [facility] Comment: Reference Ranges <0.35 kU/L Class 0: ??Normal 0.35-0.69 kU/L Class 1: ??Low level of allergy, indicative of ongoing sensitization 0.70-3.49 kU/L Class 2: ??Moderate level of allergy, indicative of stronger ongoing sensitization 3.50-17.49 kU/L Class 3: ??High level of allergy, indicative of high level sensitization 17.5-49.9 kU/L Class 4: Very high level of allergy, indicative of very high level sensitization 50.0-100 kU/L Class 5: Very high level of allergy, indicative of very high level sensitization Blood specimen (specimen) 10/10/2016 3:08 PM EDT 10/11/2016 7:15 AM EDT Narrative Resulting Agency Comment Spec In Lab Gabrielle Ortiz MD IMMUNOLOGY ORDERABLE S [facility] [place] [address] * Codfish IgE (10/10/2016 3:08 PM EDT) Codfish IgE 3.45 kU/L [facility] Comment: Reference Ranges <0.35 kU/L Class 0: ??Normal 0.35-0.69 kU/L Class 1: ??Low level of allergy, indicative of ongoing sensitization 0.70-3.49 kU/L Class 2: ??Moderate level of allergy, indicative of stronger ongoing sensitization 3.50-17.49 kU/L Class 3: ??High level of allergy, indicative of high level sensitization 17.5-49.9 kU/L Class 4: Very high level of allergy, indicative of very high level sensitization 50.0-100 kU/L Class 5: Very high level of allergy, indicative of very high level sensitization Blood specimen (specimen) 10/10/2016 3:08 PM EDT 10/11/2016 7:15 AM EDT Narrative Resulting Agency Comment Spec In Lab Gabrielle Ortiz MD IMMUNOLOGY ORDERABLE S [facility] [place] [address] * Shrimp IgE (10/10/2016 3:08 PM EDT) Shrimp, IgE 3.00 kU/L [facility] Comment: Reference Ranges <0.35 kU/L Class 0: ??Normal 0.35-0.69 kU/L Class 1: ??Low level of allergy, indicative of ongoing sensitization 0.70-3.49 kU/L Class 2: ??Moderate level of allergy, indicative of stronger ongoing sensitization 3.50-17.49 kU/L Class 3: ??High level of allergy, indicative of high level sensitization 17.5-49.9 kU/L Class 4: Very high level of allergy, indicative of very high level sensitization 50.0-100 kU/L Class 5: Very high level of allergy, indicative of very high level sensitization Blood specimen (specimen) 10/10/2016 3:08 PM EDT 10/11/2016 7:15 AM EDT Narrative Resulting Agency Comment Spec In Lab Gabrielle Ortiz MD IMMUNOLOGY ORDERABLE S [facility] [place] [address] documented in this encounter Visit Diagnoses Diagnosis Throat pain Food allergy Other adverse food reactions, not elsewhere classified Chronic vasomotor rhinitis Drug reaction, initial encounter documented in this encounter Care Teams Sand Mixer Relationship Specialty Start Date End Date Marck Brody DO [address] [place] [address] [address] [place] [address] PCP - General 02/08/10 10/12/21 documented as of this encounter
--- OUTSIDE RECORDS SUMMARY | 2023-12-08 20:06 | XMS_ITS | Encounter Summary ---
Author Organization [facility] [place] [address] Care Team Providers Care Forest Science Professor Name Role Phone Marck Brody DO Primary Care Provider Encounter Details Date Type Department Care Team (Late st Contact Info) Description 08/09/2016 Telephone [place] [phone] Natalie Harris APRN [address] [place] [address] [place] [address] Social History Tobacco Use Types [...] Telephone Encounter - Natalie Harris APRN - 08/09/2016 8:17 AM EDT Call from Theresa indicating that she is appreciative that an appointment was made to see Dr Lee to further evaluate her tongue pain. She is in need of a Rx for BMX in the interim. Will e-fax this to her pharmacy documented in this encounter Plan of Treatment Not on file documented as of this encounter Visit Diagnoses Diagnosis Oral pain Other and unspecified diseases of the oral soft tissues documented in this encounter Care Teams Forest Science Professor Relationship Specialty Start Date End Date Marck Brody DO [address] [place] [address] PCP - General 02/08/10 10/12/21 documented as of this encounter
--- OUTSIDE RECORDS SUMMARY | 2023-12-08 20:06 | XMS_ITS | Encounter Summary ---
Author Organization [facility] [place] [address] Care Team Providers Care Ragman Name Role Phone Marck Brody DO Primary Care Provider Encounter Details Date Type Department Care Team (Late st Contact Info) Description 02/24/2016 9:27 AM EST - 02/24/2016 10:06 AM [facility] Hospital [place] [address] Marck Brody DO [address] [place], [place] [address] Visit for screening mammogram Discharge Disposition: Home [...] MAMMO SCREENING CAD AND DEMETRIO BILATERAL Routine 02/24/2016 9:57 AM EST Visit for screening mammogram documented in this encounter Results * Mammo Screen CAD and Demetrio Bilat (Generic) (02/24/2016 9:57 AM EST) Anatomical Region Laterality Modality Breast Bilateral Mammography Narrative 02/24/2016 10:40 AM EST BILATERAL MAMMOGRAPHY REASON FOR EXAM: [...] No mammographic evidence of malignancy. RECOMMENDATION: [employer] and The Society of [...] Imaging Center. BIRADS CATEGORY 1: NEGATIVE Marck Brody DO IMG MAMMO ORDERABLES documented in this encounter Visit Diagnoses Diagnosis Visit for screening mammogram Other screening mammogram documented in this encounter Care Teams Ragman Relationship Specialty Start Date End Date Marck Brody DO [address] [place] [address] PCP - General 02/08/10 10/12/21 documented as of this encounter
--- OUTSIDE RECORDS SUMMARY | 2023-12-08 20:06 | XMS_ITS | Encounter Summary ---
Author Organization [facility] [place] [address] Care Team Providers Care Manager Adobe Name Role Phone Marck Brody DO Primary Care Provider Reason for Visit * Reason Comments On Treatment Visit HBOT #30 Encounter Details Date Type Department Care Team (Latest Contact Info) Description 05/20/2014 7:00 AM EST - 05/20/2014 11:59 PM EST Hospital Encounter [facility] [place] [id number] Radiation injury, sequela Social History Tobacco Use [...] Sign Reading Time Taken Comments Blood Pressure 107/60 05/20/2014 9:32 AM EST Pulse 79 05/20/2014 9:32 AM EST Temperature 36.6 ??C (97.9 ??F) 05/20/2014 9:32 AM ES T Respiratory Rate 18 05/20/2014 9:32 AM EST Oxygen Saturation - - Inhaled [...] as of this encounter Progress Notes * Tamia Snow RN - 05/20/2014 10:42 AM EST Patient Name: Theresa Hollis Patient Age: 43 y.o. Birthdate: 1970 Admit date: 05/20/2014 Attending Physician: No att. providers found Vision testing today at conclusion of HBOTs Snellen Near vision Both eyes 20/60 20/20 Right eye 20/60 20/25 Left eye 20/50 20/25 Refraction Values Right Left Spherical -1.00 -1.00 Cylinder -1.75 -1.50 Ringoes 93 83 * Reg Horta - 05/20/2014 9:36 AM EST Patient Name: Theresa Hollis Patient Age: 43 y.o. Birthdate: 1970 Admit date: 05/20/2014 Attending Physician: No att. providers found INTERVAL HISTORY: Patient denies any discomfort, changes, issues, complaints. Visual Change: none SOB: none Headaches: none Cough: none Ear Pain: none Chest Pain: none Cold symptoms: none Other: none Consent: written on file Wound/Dressing: none Pain Level: 0 (0-10 scale) * If greater than 5, document interventions. Education: Pt. assessed for educational needs and pt did not require any additional today. Theresa Hollis received hyperbaric oxygen treatment today for Radiation Injury - sequela. 100% cotton clothing in place. Patient checked for non-approved chamber items. Tympanic membranes checked. No redness or perforation noted. Patient assessed and met criteria to proceed with hyperbaric treatment. Safety checklist completed with patient. Grounding strap applied and grounding verified, patient placed in chamber, communications checked. Reg Horta RP/Tamia Snow RN administered the treatment and monitored the patient. HYPERBARIC TREATMENT: Number-30 Planned number of treatments-30 Compression Rate: 1.5psi/min Decompression Rate: 2.0 psi/min TROY-2.4 Start Compression Reach Treatment Pressure - TROY Air Break Start Air Break Completed Start Decompression Treatment Completed 0719 0736 0821 0831 0907 0918 Sechrist Chamber # 1 Clinical Practice Guideline for Hyperbaric Oxygen Therapy Prevent and manage for potential problems related to 1.Barotrauma, 2.oxygen toxicity, and 3.Pneumothorax. 4. Situational Problems Assessed: ALL (Barotrauma, Oxygen Toxicity, Pneumothorax, Situational) Problems Present: None, (Barotrauma, Oxygen Toxicity, Pneumothorax, Situational) No issues or complaints during or after treatment. Interventions: Per Clinical Practice Guidelines for Hyperbaric Oxygen Therapy through [facility]. The patient experienced neither issues nor complaints during or after treatment. Patient assessed and found appropriate to leave the Hyperbaric area at the conclusion of today???s session. This was the patient's last scheduled HBOT treatment. There are no other treatments currently scheduled. documented in this encounter Plan of Treatment Not on file documented as of this encounter Visit Diagnoses Diagnosis Radiation injury, sequela documented in this encounter Care Teams Manager Adobe Relationship Specialty Start Date End Date Marck Brody DO [address] [place] [address] PCP - General 02/08/10 10/12/21 documented as of this encounter
--- OUTSIDE RECORDS SUMMARY | 2023-12-08 20:06 | XMS_ITS | Encounter Summary ---
Author Organization [facility] [place] [address] Care Team Providers Care Clark Driver Name Role Phone Marck Brody DO Primary Care Provider [phone] Reason for Visit * Reason Onset Date Comments Medication Refill 11/02/2015 Encounter Details Date Type Department Care Team (Late st Contact Info) Description 11/02/2015 Refill [place] [address] Roberth Lee MD [facility] [address] Tongue cancer Social History Tobacco Use Types [...] site documented in this encounter Care Teams Clark Driver Relationship Specialty Start Date End Date Marck Brody DO [address] [place] [address] PCP - General 02/08/10 10/12/21 documented as of this encounter
--- OUTSIDE RECORDS SUMMARY | 2023-12-08 20:06 | XMS_ITS | Encounter Summary ---
[place] [address] Care Team Providers Care Auto Painter Name Role Phone Marck Brody DO Primary Care Provider Encounter Details Date Type Department Care Team (Late st Contact Info) Description 07/14/2015 Telephone [place] [phone] Carolyn Mello RN Social History Tobacco Use Types Packs/Day [...] encounter Miscellaneous Notes * Telephone Encounter - Carolyn Mello RN - 07/14/2015 12:26 PM EDT Phone call to the patient today with the following results at the request of . Can you let her know that FNA was negative - reactive lymph node. The patient is extremely happy with the news. documented in this encounter Plan of Treatment Not on file documented as of this encounter Visit Diagnoses Not on filedocumented in this encounter Care Teams Auto Painter Relationship Specialty Start Date End Date Marck Brody DO [address] [place] [address] PCP - General 02/08/10 10/12/21 documented as of this encounter
--- OUTSIDE RECORDS SUMMARY | 2023-12-08 20:06 | XMS_ITS | Encounter Summary ---
Author Organization [facility] [place] [address] Care Team Providers Care Pediatric Psychologist Name Role Phone Marck Brody DO Primary Care Provider Encounter Details Date Type Department Care Team (Late st Contact Info) Description 05/13/2014 Notes Only [facility] [place] [address] Cuba Mcdonald Jr., MD [facility] [place] [address] Social History Tobacco Use Types Packs/Day Years [...] Notes * Cuba Mcdonald Jr., MD - 05/13/2014 12:54 PM EST Has completed 25 of 30 treatments (Lio protocol). Progress has been reviewed and is satisfactory. She tolerated her extractions well and has no complications. Complications: None Follow up plan: Complete post extraction HBO treatments. documented in this encounter Plan of Treatment Not on file documented as of this encounter Visit Diagnoses Not on filedocumented in this encounter Care Teams Pediatric Psychologist Relationship Specialty Start Date End Date Marck Brody DO [address] [place] [address] PCP - General 02/08/10 10/12/21 documented as of this encounter
--- OUTSIDE RECORDS SUMMARY | 2023-12-08 20:06 | XMS_ITS | Encounter Summary ---
Author Organization [facility] [place] [address] Care Team Providers Care Steam Finisher Name Role Phone Marck Brody DO Primary Care Provider Reason for Visit * Reason Comments On Treatment Visit HBOT #25 Encounter Details Date Type Department Care Team (Latest Contact Info) Description 05/13/2014 7:00 AM EST - 05/13/2014 11:59 PM EST Hospital Encounter [facility] [place] [phone] Radiation injury, sequela Social History Tobacco Use [...] Sign Reading Time Taken Comments Blood Pressure 108/66 05/13/2014 9:23 AM EST Pulse 70 05/13/2014 9:23 AM EST Temperature 36.8 ??C (98.2 ??F) 05/13/2014 7:10 AM ES T Respiratory Rate 18 05/13/2014 9:23 AM EST Oxygen Saturation - - Inhaled Oxygen Concentration - - Weight - - Height - - Body Mass Index - - documented in this encounter Medications at Time of Discharge Medication Sig Dispensed Refills Start Date End Date oxyCODONE (ROXICODONE) 5 mg/5 mL Solution Take 5 mLs by mouth every 4 hours as needed for Pain for up to 12 days. 60 mL 0 05/06/2014 05/18/2014 ROXICET 5-325 mg/5 mL Solution Take 5 [...] as of this encounter Progress Notes * Reg Horta - 05/13/2014 10:14 AM EST Patient Name: Theresa Hollis Patient Age: 43 y.o. Birthdate: 1970 Admit date: 05/13/2014 Attending Physician: No att. providers found INTERVAL HISTORY: Patient denies any discomfort, changes, issues, complaints. Visual Change: none SOB: none Headaches: none Cough: non-productive cough Ear Pain: none Chest Pain: none Cold symptoms: denies Other: none Consent: written on file Wound/Dressing: none Pain Level: 0 (0-10 scale) * If greater than 5, document interventions. Education: patient assessed for educational needs, patient required no additional education today. Theresa Hollis received hyperbaric oxygen treatment today for radiation injury, sequelae. 100% cotton clothing in place. Patient checked for non-approved chamber items. Tympanic membranes checked. No redness or perforation noted. Patient assessed and met criteria to proceed with hyperbaric treatment. Safety checklist completed with patient. Grounding strap applied and grounding verified, patient placed in chamber, communications checked. Reg Horta RP/Tamia Snow RN administered the treatment and monitored the patient. HYPERBARIC TREATMENT: Number-25 Planned number of treatments- 20/10 Compression Rate: 1.5 psi/min Decompression Rate: 2.0 psi/min TROY-2.4 Start Compression Reach Treatment Pressure - TROY Air Break Start Air Break Completed Start Decompression Treatment Completed 0717 0737 0823 0833 0908 0919 Sechrist Chamber # 1 Clinical Practice Guideline for Hyperbaric Oxygen Therapy Prevent and manage for potential problems related to 1.Barotrauma, 2.oxygen toxicity, and 3.Pneumothorax. 4. Situational Problems Assessed: ALL (Barotrauma, Oxygen Toxicity, Pneumothorax, Situational) Problems Present: None, (Barotrauma, Oxygen Toxicity, Pneumothorax, Situational) No issues or complaints during or after treatment. Interventions: Per Clinical Practice Guidelines for Hyperbaric Oxygen Therapy through [facility]. Patient had slight problem clearing ears at 1.5 TROY, pressure backed down to 1.38 TROY where patientwas able to clear her ears. Pressure brought up incrementally to 2.4 TROY where treatment continued without issues/complaints. Patient assessed and found appropriate to leave the Hyperbaric area at the conclusion of today???s session. Continue HBOT as planned. Next treatment scheduled for April. documented in this encounter Plan of Treatment Not on file documented as of this encounter Visit Diagnoses Diagnosis Radiation injury, sequela documented in this encounter Care Teams Steam Finisher Relationship Specialty Start Date End Date Marck Brody DO [address] [place] [address] PCP - General 02/08/10 10/12/21 documented as of this encounter
--- OUTSIDE RECORDS SUMMARY | 2023-12-08 20:06 | XMS_ITS | Encounter Summary ---
Author Organization [facility] [place] [address] Care Team Providers Care Skip Pitman Name Role Phone Marck Brody DO Primary Care Provider Reason for Visit * Diagnostic Test (Routine) - Closed Specialty Diagnoses / Procedures Referred By Contac t Referred To Contact Radiology Diagnoses Pathological fracture of mandible Procedures CT 3D Reconstructed Images for Surgical Planning CT 3D Reconstructed Images Interp and Report Alfred Vital MD [facility] [address] [place] [address] [facility] [place] [address] Referral ID Status Reason Start Date Expiration Date V isits Requested Visits Authorized [id number] Closed Specialty Service Requested 02/25/2016 02/23/2017 1 1 Encounter Details Date Type Department Care Team (Late st Contact Info) Description 02/25/2016 12:20 PM EST - 02/25/2016 11:59 PM EST Hospital [place] [address] Alfred Vital MD [facility] [address] [place] [address] Pathological fracture of mandible Discharge Disposition: Home Social History Tobacco Use [...] Sig Dispensed Refills Start Date End Date nystatin (MYCOSTATIN) 100,000 unit/mL SuspensionIndications :Candidiasis of mouth Take 5 mLs by mouth 4 times daily for 7 days. 140 mL 02/24/2016 03/02/2016 levothyroxine (SYNTHROID) 112 mcg TabletIndications:Hyp othyroidism (acquired) Take 1 tablet by mouth daily. 30 tablet 12 02/24/2016 03/22/2017 cevimeline (EVOXAC) 30 mg CapsuleIndications:To ngue cancer [...] as of this encounter Plan of Treatment Pending Results Name Type Priority Associated Diagnoses Date /Time CT 3D Reconstructed Images for Surgical Planning Imaging Routine Pathological fracture of mandible 02/25/2016 3:02 PM EST Scheduled Orders Name Type Priority Associated Diagnoses Orde r Schedule CT 3D Reconstructed Images for Surgical Planning Imaging Routine Pathological fracture of mandible 1 Occurrences starting 03/03/2016 until 03/03/2016 documented as of this encounter Visit Diagnoses Diagnosis Pathological fracture of mandible documented in this encounter Care Teams Skip Pitman Relationship Specialty Start Date End Date Marck Brody DO [address] [place] [address] PCP - General 02/08/10 10/12/21 documented as of this encounter
--- OUTSIDE RECORDS SUMMARY | 2023-12-08 20:06 | XMS_ITS | Encounter Summary ---
Author Organization [facility] [place] [address] Care Team Providers Care Biophysics Scientist Name Role Phone Marck Brody DO Primary Care Provider [phone] Encounter Details Date Type Department Care Team (Late st Contact Info) Description 01/25/2015 Orders Only Hematology [place] [address] Marck Sherman MD [address] [place] [address] [place] [address] Hypothyroidism (acquired); Tongue cancer Social History Tobacco Use Types [...] documented as of this encounter Results * Comprehensive metabolic panel (non-fasting) (01/25/2015 9:38 AM EST) Glucose 90 65 - 199 mg/dL [facility] Comment:Diabetes: >=200 mg/d L plus symptoms Blood Urea Nitrogen 8 8 - 18 mg/dL [facility] Creatinine 0.84 0.70 - 1.20 mg/dL [facility] Comment: Please note that the pediatric reference intervals supplied above were not validated at [facility]. Results from pediatric patients should be interpreted [...] the following links into your internet browser. [email or web address] Blood specimen (specimen) 01/25/2015 9:38 AM EST 01/25/2015 9:44 AM EST Narrative Resulting Agency Comment Spec In Lab Marck Sherman MD CHEMISTRY ORDERABLES [facility] * TSH (01/25/2015 9:38 AM EST) Thyroid Stimulating Hormone 2.35 0.27 - 4.20 mcIU/mL [facility] Blood specimen (specimen) 01/25/2015 9:38 AM EST 01/25/2015 9:44 AM EST Narrative Resulting Agency Comment Spec In Lab Marck Sherman MD CHEMISTRY ORDERABLES [facility] MANE documented in this encounter Visit Diagnoses Diagnosis Hypothyroidism (acquired) Unspecified hypothyroidism Tongue cancer Malignant neoplasm of tongue, unspecified site documented in this encounter Care Teams Biophysics Scientist Relationship Specialty Start Date End Date Marck Brody DO [address] [place] [address] PCP - General 02/08/10 10/12/21 documented as of this encounter
--- OUTSIDE RECORDS SUMMARY | 2023-12-08 20:06 | XMS_ITS | Encounter Summary ---
Author Organization [facility] [place] [address] Care Team Providers Care Supervisor Pressing Department Name Role Phone Marck Brody DO Primary Care Provider Encounter Details Date Type Department Care Team (Latest Contact Info) Description 02/24/2016 10:07 AM EST - 02/24/2016 11:59 PM [facility] Hospital Encounter H[place]ology [place] [phone] Hypothyroidism, unspecified type Discharge Disposition: Home Social History Tobacco Use [...] Name Priority Date/Time Associated Diagnosis Comments TSH STAT 02/24/2016 10:12 AM EST Hypothyroidism, unspecified type documented in this encounter Results * (ABNORMAL) TSH (02/24/2016 10:12 AM EST) Thyroid Stimulating Hormone 6.22(H) 0.27 - 4.20 mcIU/mL [facility] Blood specimen (specimen) 02/24/2016 10:12 AM EST 02/24/2016 10:39 AM EST Narrative Resulting Agency Comment Spec In Lab Marck Sherman MD CHEMISTRY ORDERABLES [facility] [place] [id number] documented in this encounter Visit Diagnoses Diagnosis Hypothyroidism, unspecified type documented in this encounter Care Teams Supervisor Pressing Department Relationship Specialty Start Date End Date Marck Brody DO [address] [place] [address] PCP - General 02/08/10 10/12/21 documented as of this encounter
--- OUTSIDE RECORDS SUMMARY | 2023-12-08 20:06 | XMS_ITS | Encounter Summary ---
Author Organization [facility] [place] [address] Care Team Providers Care Dividing Machine Operator Helper Name Role Phone Marck Brody DO Primary Care Provider [phone] Encounter Details Date Type Department Care Team (Late st Contact Info) Description 05/20/2014 Notes Only [facility] [place] [address] Cuba Mcdonald Jr., MD [facility] [place] [address] Social History Tobacco Use Types Packs/Day Years [...] Notes * Cuba Mcdonald Jr., MD - 05/21/2014 7:37 AM EST Has completed 30 of 30 treatments. Progress has been reviewed and is good, no problems at extraction sites. Complications: None Follow up plan: as needed. documented in this encounter Plan of Treatment Not on file documented as of this encounter Visit Diagnoses Not on filedocumented in this encounter Care Teams Dividing Machine Operator Helper Relationship Specialty Start Date End Date Marck Brody DO [address] [place] [address] PCP - General 02/08/10 10/12/21 documented as of this encounter
--- OUTSIDE RECORDS SUMMARY | 2023-12-08 20:06 | XMS_ITS | Encounter Summary ---
Author Organization [facility] [place] [address] Care Team Providers Care Labor Economics Professor Name Role Phone Marck Brody DO Primary Care Provider Reason for Visit * Reason Comments On Treatment Visit Encounter Details Date Type Department Care Team (Late st Contact Info) Description 05/07/2014 7:42 AM EST - 05/16/2014 11:59 PM EST Hospital Encounter [facility] [place] [phone] CLINIC, Marck Edwards, DO [address] [place], [place] [id number] Radiation injury, sequela Discharge Disposition: Home Social History Tobacco Use [...] Reading Time Taken Comments Blood Pressure 110/61 05/07/2014 9:31 AM EST Pulse 60 05/07/2014 9:31 AM EST Temperature 37 ??C (98.6 ??F) 05/07/2014 7:15 AM EST Respiratory Rate 05/07/2014 9:31 AM EST Oxygen Saturation - - Inhaled [...] of this encounter Progress Notes * Mary Littlejohn RN - 05/07/2014 10:28 AM EST Patient Name: Theresa Hollis Patient Age: 43 y.o. Birthdate: 1970 Admit date: 05/07/2014 Attending Physician: Dr Jenn Esparza Patient assessed and met criteria to proceed with hyperbaric treatment. No issues or complaints during or after treatment. Able to clear ears with a few brief pauses in pressurization. I'm sleepy from yesterday's procedure. I didn't get home until 7:00. I'm fine otherwise. Patient reported. Alertand oriented, steady gait. Has ride waiting for her. Patient assessed and found appropriate to leave the Hyperbaric area at conclusion of today's session. * Ladi Whittaker LNA - 05/07/2014 10:04 AM EST Patient Name: Theresa Hollis Patient Age: 43 y.o. 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 400 IU vitamin E taken before treatment. 100% cotton clothing in place. Pre-HBOT checklist performed with patient/inspection completed. Patient checked for non-approved chamber items. Grounding strap applied and grounding verified. Patient placed in chamber and grounded. Communications checked. Mobility: Patient ambulates independently Tympanic Membranes checked. No redness, drainage, discomfort, membrane intact. Number- 21 Planned number of treatments- 20 pre procedure, 10 post procedure Compression Rate: 1.5psi/min Decompression Rate: 2.0psi/min TROY-2.4 Start Compression Reach Treatment Pressure - TROY Air Break Start Air Break Completed Start Decompression Treatment Completed 0719 0747 0832 0842 0918 0928 Sechrist Chamber # 1 Air Breaks-One 10 minute air break Treatment Notes: Patient experienced difficulty clearing ears early on in the treatment, but was able to do so and complete treatment without further issues. Tolerated treatment well. Condition upon discharge: Awake, Coherent speech, ambulating independently, driving self. documented in this encounter Plan of Treatment Not on file documented as of this encounter Visit Diagnoses Diagnosis Radiation injury, sequela documented in this encounter Care Teams Labor Economics Professor Relationship Specialty Start Date End Date Marck Brody DO [address] [place] [address] [address] [place] [address] PCP - General 02/08/10 10/12/21 documented as of this encounter
--- OUTSIDE RECORDS SUMMARY | 2023-12-08 20:06 | XMS_ITS | Encounter Summary ---
Author Organization [facility] [place] [address] Care Team Providers Care Traffic Lieutenant Name Role Phone Marck Brody DO Primary Care Provider [phone] Encounter Details Date Type Department Care Team (Late st Contact Info) Description 02/09/2016 Telephone [place] [address] Natalie Harris APRN [address] [place] [address] [place] [address] Social History Tobacco Use Types [...] Miscellaneous Notes * Telephone Encounter - Natalie Harrsi APRN - 02/09/2016 7:49 AM EST Theresa had been in contact with provider about some persistent jaw pain. She had been scheduled for dental work and given her history of radiation therapy for head and neck cancer imaging of the head and neck was done at [facility]. A second read was done at [facility] and patient was called with the results. CT scan of head and neck shows that she has an oblique fracture through the left mandible in the setting of abnormal bone. 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 There is no soft tissue mass or pathologic adenopathy. Patient was to have a tooth extraction with her dentist and she was asked to cancel this. Theresa ebonyad hyperbaric oxygen therapy in the past. We will arrange for patient to be seen by Dr Vital Patient is in agreement with this plan documented in this encounter Plan of Treatment Not on file documented as of this encounter Visit Diagnoses Not on filedocumented in this encounter Care Teams Traffic Lieutenant Relationship Specialty Start Date End Date Marck Brody DO [address] [place] [address] PCP - General 02/08/10 10/12/21 documented as of this encounter
--- OUTSIDE RECORDS SUMMARY | 2023-12-08 20:06 | XMS_ITS | Encounter Summary ---
Author Organization [place] [address] Care Team Providers Care Buncher Hand Name Role Phone Marck Brody DO Primary Care Provider Encounter Details Date Type Department Care Team (Late st Contact Info) Description 08/21/2016 Telephone [place] [phone] Natalie Harris APRN [address] [place] [address] [place] [address] Social History Tobacco Use Types [...] Telephone Encounter - Natalie Harris APRN - 08/21/2016 8:57 AM EDT Call from Theresa, She indicated that over the weekend she remembered that she had had a bad reaction to oral lidocaine and felt that this might have been adding to her oral pain. She stopped the medication and her pain has gone away. She still has an infected gum area and still plans to be seen by Dr Lee as planned I have added the lidocaine to her allergy list documented in this encounter Plan of Treatment Not on file documented as of this encounter Visit Diagnoses Not on filedocumented in this encounter Care Teams Buncher Hand Relationship Specialty Start Date End Date Marck Brody DO [address] [place] [address] PCP - General 02/08/10 10/12/21 documented as of this encounter
--- OUTSIDE RECORDS SUMMARY | 2023-12-08 20:06 | XMS_ITS | Encounter Summary ---
Author Organization [facility] [place] [address] Care Team Providers Care Safety Person Name Role Phone Marck Brody DO Primary Care Provider Reason for Visit * Reason Comments Follow-up 1yr f/u, H/O tongue Ca. Pt doing well Encounter Details Date Type Department Care Team (Late st Contact Info) Description 01/25/2015 1:00 PM EST Office [place] [phone] Roberth Little MD [facility] [place] [address] H/O tongue cancer Social History Tobacco Use [...] - - Weight 47.6 kg (105 lb) 01/25/2015 11:52 AM EST Height 158.8 cm (5' 2.5) 01/25/2015 11:52 AM ES T Body Mass Index 18.9 01/25/2015 11:52 AM EST documented in this encounter Progress Notes * Roberth Little MD - 01/25/2015 12:48 PM EST [facility] Follow up note Theresa Hollis is a 44 y.o. female Primary site: Left lateral tongue Stage: [id number] Surgery(ies): 10/31/06 - Hemiglossectomy, left neck dissection 1-5, skin graft, allograft Radiation: TREATMENT STARTED: 11/28/06 TREATMENT COMPLETED: 01/14/07 TREATMENT: The total maximum dose was 6600 cGy in 33 fractions. Volume reductions were instituted at 5400 cGy in 30 fractions & 6000 cGy in 30 fractions. Chemotherapy: Concurrent cisplatin New issues since last visit: Annual follow up. Doing well. No restrictions in eating or swallowing.Had extractions performed by [facility] in May with no issues. 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 Exercises. PROBLEM LIST: Patient Active Problem List Diagnosis Code ??? Hypothyroidism (acquired) E03.9 ??? Tongue cancer C02.9 ??? Tinnitus H93.19 ??? History of tongue cancer Z85.810 ??? Radiation injury T66.XXXA ??? DIFFICULT AIRWAY T88.4XXA ??? Periodontal disease K05.6 PAST MEDICAL HISTORY: Past Medical History Diagnosis Date ??? Cancer of head, face, and neck ??? Hypothyroidism SOCIAL HISTORY: History Substance Use Topics ??? Smoking status: Never Smoker ??? Smokeless tobacco: Never Used ??? Alcohol Use: Yes Comment: seldom, 4 drinks per year MEDICATIONS: Current Outpatient Prescriptions on File Prior to Visit Medication Sig Dispense Refill ??? cevimeline (EVOXAC) 30 mg Capsule Take 1 capsule by mouth 3 times daily. 90 capsule 12 ??? CALCIUM CARBONATE/VITAMIN D2 (LIQUID CALCIUM ORAL) Take 1,000 mg by mouth. ??? vitamin E 400 unit Capsule Take 400 Units by mouth daily. Indications: Hyperbaric oxygen therapy ??? UNABLE TO FIND 2 tablets daily. Med Name:taking a calcium chew 1000mg a day ??? levothyroxine (SYNTHROID) 100 mcg Tablet Take 1 tablet by mouth daily. 30 tablet 12 ??? acetaminophen (TYLENOL) 160 mg/5 mL Elixir Take 15 mg/kg/dose by mouth every 4 hours as needed for Fever. ??? [DISCONTINUED] BENZOCAINE (ORAJEL MM) by Mucous Membrane route. No current facility-administered medications on file prior to visit. ALLERGIES: No Known Allergies ROS: Pertinent positive findings discussed above. No other findings on review of constitutional visual, cardiovascular, respiratory, gastrointestinal, genitourinary, musculoskeletal, dermatologic, neurological, psychiatric, endocrine, hematologic or immunologic systems. PHYSICAL EXAMINATION: There were no vitals filed for this visit. Wt Readings from Last 3 Encounters: 01/25/15 47.628 kg (105 lb) 05/06/14 47.6 kg (104 lb 15 oz) 01/19/14 50 kg (110 lb 3.7 oz) General: Well developed, no distress Head/face: Normocephalic, atraumatic Oral cavity: Dentition stable with no exposed bone. No evidence of recurrence or second primary on inspection and palpation. Oropharynx: Normal soft palate, tonsils, lateral pharyngeal wall, posterior pharynx. Neck: No adenopathy, no masses, normal thyroid, normal salivary gland exam. Trachea midline. Resp: Post glossectomy speech, no stridor, normal respirations. Skin: Normal skin survey of the head and neck. MSK: No trismus, normal neck range of motion Neuro: AxOx3; CN II-XII is grossly intact Psych: Normal mood and affect. Responds appropriately to questions. PROCEDURES: Flexible Fiberoptic Laryngoscopy: Topical anesthetic and decongestant applied to the nasal cavity. Patient tolerated the procedure well without any complications. Nasal Cavity: Normal Nasopharynx: Normal Oropharynx: Normal Larynx: Normal Hypopharynx: Normal ASSESSMENT/RECOMMENDATIONS: MALLY No second primary RTC 1 year I appreciate the opportunity to be involved in Ms. Hollis's care. Please do not hesitate to contact me at , (office), (page rotary drier operator) or [phone] (mobile) if you have any questions. ROBERTH LITTLE MD 01/25/2015 documented in this encounter Plan of Treatment Not on file documented as of this encounter Visit Diagnoses Diagnosis H/O tongue cancer Personal history of malignant neoplasm of tongue documented in this encounter Care Teams Safety Person Relationship Specialty Start Date End Date Marck Brody DO [address] [place] [address] PCP - General 02/08/10 10/12/21 documented as of this encounter
--- OUTSIDE RECORDS SUMMARY | 2023-12-08 20:06 | XMS_ITS | Encounter Summary ---
Author Organization [facility] [place] [address] Care Team Providers Care Business Systems Technician Name Role Phone Marck Brody DO Primary Care Provider [phone] Encounter Details Date Type Department Care Team (Late st Contact Info) Description 05/10/2016 Orders Only Hematology [place] [address] Kimberly Montano, JEANINE [address] [facility] [place] [address] Tongue cancer; Hypothyroidism (acquired) Social History Tobacco [...] hypothyroidism documented in this encounter Care Teams Business Systems Technician Relationship Specialty Start Date End Date Marck Brody DO [address] [place], [place] [id number] PCP - General 02/08/10 10/12/21 documented as of this encounter
--- OUTSIDE RECORDS SUMMARY | 2023-12-08 20:06 | XMS_ITS | Encounter Summary ---
Author Organization [facility] [place] [address] Care Team Providers Care Equity Structurer Name Role Phone Marck Brody DO Primary Care Provider Encounter Details Date Type Department Care Team (Late st Contact Info) Description 02/07/2016 Orders [place] [address] Natalie Harris, JEANINE [address] [place] [address] [place] [address] Cancer of head and neck [...] as of this encounter Results * Request For 2nd [...] imaging of CT of neck (done at [facility]) I have requested that images be sent [...] history of head and neck cancer treated [id number]. Concerning imaging of CT of neck (done at [facility]) I have requested thatimages be sent to [...] Diagnoses Diagnosis Cancer of head and neck Cancer of head and neck documented in this encounter Care Teams Equity Structurer Relationship Specialty Start Date End Date Marck Brody DO [address] [place] [address] PCP - General 02/08/10 10/12/21 documented as of this encounter
--- OUTSIDE RECORDS SUMMARY | 2023-12-08 20:06 | XMS_ITS | Encounter Summary ---
Author Organization [facility] Address [facility] [place] [address] Care Team Providers Care Plisse Machine Operator Helper Name Role Phone Marck Brody DO Primary Care Provider Reason for Visit * Reason Comments Follow-up F/U, H/O tongue Ca, New found small firm lump at LT ear Encounter Details Date Type Department Care Team (Late st Contact Info) Description 07/08/2015 11:40 AM EDT Office [place] [address] Roberth Little MD [facility] [place] [address] Parotid mass; H/O tongue cancer Social History Tobacco Use [...] - Inhaled Oxygen Concentration - - Weight 47.7 kg (105 lb 1.6 oz) 07/08/2015 11:12 AM EDT Height 158.8 cm (5' 2.5) 07/08/2015 11:12 AM ED T Body Mass Index 18.92 07/08/2015 11:12 AM EDT documented in this encounter Progress Notes * Roberth Little MD - 07/08/2015 5:17 PM EDT [facility] Follow up note Theresa Hollis is a 45 y.o. female Primary site: Left lateral tongue Stage: [id number] Surgery(ies): 10/31/06 - Hemiglossectomy, left neck dissection 1-5, skin graft, allograft Radiation: TREATMENT STARTED: 11/28/06 TREATMENT COMPLETED: 01/14/07 TREATMENT: The total maximum dose was 6600 cGy in 33 fractions. Volume reductions were instituted at 5400 cGy in 30 fractions & 6000 cGy in 30 fractions. Chemotherapy: Concurrent cisplatin New issues since last visit: Annual follow up. She was doing well until recent URI. Afterwards, shenoted a nodule in her parotid gland on the left. She massaged it and it seemed to flatten out but is still present. No pain. No trismus. She is swallowing normally. Her dentition is in good repair. PROBLEM LIST: Patient Active Problem List Diagnosis Code ??? Hypothyroidism (acquired) E03.9 ??? Tongue cancer C02.9 ??? Tinnitus H93.19 ??? History of tongue cancer Z85.810 ??? Radiation injury T66.XXXA ??? DIFFICULT AIRWAY T88.4XXA ??? Periodontal disease K05.6 PAST MEDICAL HISTORY: Past Medical History Diagnosis Date ??? Cancer of head, face, and neck ??? Hypothyroidism ??? Breast cancer SOCIAL HISTORY: History Substance Use Topics ??? Smoking status: Never Smoker ??? Smokeless tobacco: Never Used ??? Alcohol Use: Yes Comment: seldom, 4 drinks per year MEDICATIONS: Current Outpatient Prescriptions on File Prior to Visit Medication Sig Dispense Refill ??? levothyroxine (SYNTHROID) 100 mcg Tablet Take 1 tablet by mouth daily. 30 tablet 12 ??? cevimeline (EVOXAC) 30 mg Capsule Take 1 capsule by mouth 3 times daily. 90 capsule 12 ??? acetaminophen (TYLENOL) 160 mg/5 mL Elixir Take 15 mg/kg/dose by mouth every 4 hours as needed for Fever. ??? vitamin E 400 unit Capsule Take 400 Units by mouth daily. Indications: Hyperbaric oxygen therapy ??? [DISCONTINUED] CALCIUM CARBONATE/VITAMIN D2 (LIQUID CALCIUM ORAL) Take 1,000 mg by mouth. ??? [DISCONTINUED] UNABLE TO FIND 2 tablets daily. Med Name:taking a calcium chew 1000mg a day No current facility-administered medications on file prior to visit. ALLERGIES: No Known Allergies ROS: Pertinent positive findings discussed above. No other findings on review of constitutional visual, cardiovascular, respiratory, gastrointestinal, genitourinary, musculoskeletal, dermatologic, neurological, psychiatric, endocrine, hematologic or immunologic systems. PHYSICAL EXAMINATION: There were no vitals filed for this visit. Wt Readings from Last 3 Encounters: 07/08/15 47.673 kg (105 lb 1.6 oz) 01/25/15 47.628 kg (105 lb) 05/06/14 47.6 kg (104 lb 15 oz) General: Well developed, no distress Head/face: Normocephalic, atraumatic Oral cavity: Dentition stable with no exposed bone. No evidence of recurrence or second primary on inspection and palpation. Oropharynx: Normal soft palate, tonsils, lateral pharyngeal wall, posterior pharynx. Neck: No adenopathy, no masses, normal thyroid Trachea midline. In her LEFT parotid gland she has two small nodules, feel like either sialoceles or lymph node. Resp: Post glossectomy speech, no stridor, normal respirations. Skin: Normal skin survey of the head and neck. MSK: No trismus, normal neck range of motion Neuro: AxOx3; CN II-XII is grossly intact Psych: Normal mood and affect. Responds appropriately to questions. An ultrasound of the parotid on the left was performed. A hypoechoic nodule was identified with some vascularity, possible intraparotid lymph node. PROCEDURES: Flexible Fiberoptic Laryngoscopy: Topical anesthetic and decongestant applied to the nasal cavity. Patient tolerated the procedure well without any complications. Nasal Cavity: Normal Nasopharynx: Normal Oropharynx: Normal Larynx: Normal Hypopharynx: Normal Procedure: Fine needle aspirate Indication: Mass in the parotid Site: left Consent: Informed verbal consent. Time out performed. Number of passes: 1 Fluid aspirated?: none Submitted to cytology in cyto-preservative. Patient tolerated well without complications. ASSESSMENT/RECOMMENDATIONS: Likely reactive intraparotid lymph node Will call with results No evidence of mucosal second primary or recurrence. I appreciate the opportunity to be involved in Ms. Hollis's care. Please do not hesitate to contact me at [email or web address], (office), (page embossing press operator apprentice) or [phone] (mobile) if you have any questions. ROBERTH LITTLE MD 07/08/2015 documented in this encounter Plan of Treatment Not on file documented as of this encounter Procedures Procedure Name Priority Date/Time Associated Diagnosis Comments NON-TITLE INSURANCE SALES REPRESENTATIVE FINAL REPORT Routine 07/08/2015 1:30 PM EDT documented in this encounter Results * Non-Typing Bookkeeper Final Report (07/08/2015 1:30 PM EDT) Diagnosis Discussion [id number] ?Location: 4F The signing pathologist has (i) examined the relevant preparation(s) for the specimen(s) and (ii) rendered or confirmed the diagnosis(es). . ? Non-Typing Bookkeeper Final DIAGNOSIS See Comment 07/09/15 ?Screened by: ? DMG ?Rescreened by: ?? XL 07/12/15 ?Verified by: ? Vinh Lebron MD ? Pathologist ? (Electronic Signature) DISCUSSION Lymph Node, FNA: Lymphoid cells with predominantly small lymphocytes, lymphohistiocytic aggregates, rare giant cells present, compatible with lymph node sampling. No carcinoma seen. Cell block is essentially acellular. ?Additional levels examined. CLINICAL INFORMATION Specimen Source : ?? Lymph node Pertinent Clinical Data and Significant Therapy: ?? Reactive lymph node. H/O tongue cancer Clinical Impression : ?? Left parotid mass Pertinent Radiologic Findings ??: ?? (not provided) Gross Description: ?? Received ??in CytoLyt ??approximately 10 ml. total volume of ??clear, pink fluid, with light flecks. ?? Total Preparation: Liquid Based Prep 1; ??Cell Block 1. 07/12/2015 9:09 AM EDT [facility] LYMPH NODE SPECIMEN / Unknown 07/08/2015 1:30 PM EDT 07/08/2015 1:30 PM EDT Roberth Little MD PATHOLOGY/CYTOLOGY ORDERABLES [facility] [place] [address] documented in this encounter Visit Diagnoses Diagnosis Parotid mass Swelling, mass, or lump in head and neck H/O tongue cancer Personal history of malignant neoplasm of tongue documented in this encounter Care Teams Plisse Machine Operator Helper Relationship Specialty Start Date End Date Marck Brody DO [address] [place] [address] PCP - General 02/08/10 10/12/21 documented as of this encounter
--- OUTSIDE RECORDS SUMMARY | 2023-12-08 20:06 | XMS_ITS | Encounter Summary ---
Author Organization [facility] [place] [address] Care Team Providers Care Operations And Maintenance Supervisor Name Role Phone Marck Brody DO Primary Care Provider Reason for Visit * Reason Comments On Treatment Visit HBOT # 26 Encounter Details Date Type Department Care Team (Latest Contact Info) Description 05/14/2014 7:00 AM EST - 05/14/2014 11:59 PM EST Hospital En[facility] [place] [place] [phone] Radiation injury, sequela Social History Tobacco Use [...] Sign Reading Time Taken Comments Blood Pressure 101/63 05/14/2014 9:34 AM EST Pulse 63 05/14/2014 9:34 AM EST Temperature 36.5 ??C (97.7 ??F) 05/14/2014 7:20 AM ES T Respiratory Rate - - Oxygen Saturation - [...] Progress Notes * Tamia Snow RN - 05/14/2014 8:57 AM EST Patient Name: Theresa Hollis Patient Age: 43 y.o. Birthdate: 1970 Admit date: 05/14/2014 Attending Physician: No att. providers found INTERVAL HISTORY: Patient denies any discomfort, changes, issues, complaints. She feels the operative site is healing well. 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 100% cotton clothing in place. Patient checked for non-approved chamber items. Tympanic membranes checked. No redness or perforation noted. Patient assessed and met criteria to proceed with hyperbaric treatment. Safety checklist completed with patient. Sarah carvalhop applied and grounding verified, patient placed in chamber, communications checked. Mary Littlejohn RN/Tamia Snow RN administered the treatment and monitored the patient. HYPERBARIC TREATMENT: Number-26 Planned number of treatments- 30; 20 prior to dental procedure and 10 after procedure Compression Rate: 1.5psi/min Decompression Rate: 2.0 psi/min TROY-2.4 Start Compression Reach Treatment Pressure - 2.4 TROY Air Break Start Air Break Completed Start Decompression Treatment Completed [id number] 0833 0844 0918 0931 Sechrist Chamber # 1 Clinical Practice Guideline for Hyperbaric Oxygen Therapy Prevent and manage for potential problems related to 1.Barotrauma, 2.oxygen toxicity, and 3.Pneumothorax. 4. Situational Problems Assessed: ALL (Barotrauma, Oxygen Toxicity, Pneumothorax, Situational) Problems Present: Difficulty equalizing pressure in ears. Interventions: Frequent stops during compression to allow extra time for her to work on equalizing the pressure. With extra time she was able to accomplish this. Per Clinical Practice Guidelines for Hyperbaric Oxygen Therapy through [facility]. No issues or complaints after treatment. Patient assessed and found appropriate to leave the Hyperbaric area at the conclusion of today???s session. Continue HBOT as planned. Next treatment scheduled for tomorrow. . documented in this encounter Plan of Treatment Not on file documented as of this encounter Visit Diagnoses Diagnosis Radiation injury, sequela documented in this encounter Care Teams Operations And Maintenance Supervisor Relationship Specialty Start Date End Date Marck Brody DO [address] [place] [address] [address] [facility] [address] [place] [address] PCP - General 02/08/10 10/12/21 documented as of this encounter
--- OUTSIDE RECORDS SUMMARY | 2023-12-08 20:06 | XMS_ITS | Encounter Summary ---
Author Organization [facility] Address [facility] [place] [address] Care Team Providers Care Sustainability Manager Name Role Phone Marck Brody DO Primary Care Provider [phone] Reason for Visit * Reason Comments Follow Up Surgery Encounter Details Date Type Department Care Team (Late st Contact Info) Description 05/29/2014 2:30 PM EDT Office Visit [place] [phone] Alfred Vital MD [facility] [place] [address] Periodontal disease; History of tongue cancer Discharge Disposition: Home [...] as of this encounter Progress Notes * Alfred Vital MD - 05/29/2014 2:31 PM EDT Oral & Maxillofacial Surgery Lesion Follow Up Theresa Bolivar Hollis returns for follow up of extraction of teeth # 18 and #19 with biopsy of L mandibular bone on 05/06/14. ---Pathologic Diagnosis---05/06/14 A - Extraction site, tooth #19, curetting: tissue; negative for malignancy. B - Bone between the roots of tooth 18, curetting: Portion of tooth, negative for malignancy Lamellar bone and soft tissue with chronic inflammation and granulation Left base of tongue CA 2007with resection and neck dissection with adjuvant concurrent cisplatin (100mg/m2 q3wks - 3 total doses) plus radiation (66Gy total) started 11/26/06, completed 01/07/07 Interval History: Theresa was questioned with regards to new lumps or bumps,intra or extraoral drainage, difficulty chewing or swallowing, oral bleeding, dysarthria or altered oral sensation from priorexamination. Weight and appetite were evaluated and pertinent interval changes include: ?? Unremarkable recovery, she did not take any pain medication. ?? No post op bleeding, minimal swelling. ?? Regular diet resumed. ?? Antibiotic Augmentin course completed. ?? Hyperbaric treatment completed ?? She has not been using her Thera Byte because she does not feel as though it was needed. ?? She is using an irrigation syringe with room temperature water after meals. ?? 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 Patient Active Problem List Diagnosis Code ??? Hypothyroidism (acquired) 244.9 ??? Tongue cancer 141.9 ??? Tinnitus 388.30 ??? History of tongue cancer V10.01 ??? Radiation injury 990 ??? DIFFICULT AIRWAY Clinical Examination: Visual and bimanual examination of [...] and lymphatic anatomy. Pertinent findings include: ?? Good range mandibular motion with some limitation. ?? Oropharynx unremarkable. ?? partial exposure of distal aspect of root of tooth # 20 ?? No exposed bone but moderate overlying fibrinous covering - not mucosalized as yet; overlying particulate matter removed with suction. ?? Granulation tissue in extraction sites. ?? Floor of mouth wnl ?? Tongue demonstrates deformity s/p ca resection ?? No discrete lymphadenopathy Pertinent imaging studies: previous photographs reviewed along with panorex radiographs. Impression: Stable, no exposed bone, granulating tissue in extraction sites. Recommendations and Plan: Follow up in 2 weeks with panorex (which will serve as baseline). She prefers morning appointments. Time Statement: Fifteen minutes was spent with the patient greater than 10 minutes of which involved direct discussion with the patient reviewing the findings on examination and the implications for treatment or continued observation. Radiographs were reviewed where appropriate and questions regarding today's visit were answered. The patient was reminded to contact us if there were any further concerns. Lucie Romano LPN am acting as scribe for Dr. Vital. All work documented was performed by . Alfred Romano, performed the above scribed service and agree with the accuracy of the note. documented in this encounter Plan of Treatment Not on file documented as of this encounter Visit Diagnoses Diagnosis Periodontal disease Unspecified gingival and periodontal disease History of tongue cancer Personal history of malignant neoplasm of tongue documented in this encounter Care Teams Sustainability Manager Relationship Specialty Start Date End Date Marck Brody DO [address] [place] [address] PCP - General 02/08/10 10/12/21 documented as of this encounter
--- OUTSIDE RECORDS SUMMARY | 2023-12-08 20:06 | XMS_ITS | Encounter Summary ---
Author Organization [facility] [address] Care Team Providers Care Linter Saw Sharpener Name Role Phone Marck Brody DO Primary Care Provider Encounter Details Date Type Department Care Team (Late st Contact Info) Description 01/25/2016 Telephone [place] [phone] Natalie Harris APRN [address] [place] [address] [place] [address] Social History Tobacco Use Types [...] Telephone Encounter - Natalie Harris APRN - 01/25/2016 12:52 PM EST Per note from Dr Vital's office today Theresa contacted the office today inquiring about an appointment with Dr. Vital before 02/14. She is experiencing jaw pain and numbness. Her dentist would like to extract 4 teeth, but she would like to see Dr. Vital prior the procedure. After a brief conve rsation with Dr. Vital he is recommending that she reach out to her Oncologist regarding the painand numbness. He would not see her for the jaw pain or the extractions Theresa indicated that she wants to make sure that there are no issues with her jaw from a disease standpoint. She has been treated with hyperbaric oxygen therapy prior to previous extractions and she was cleared to have these extractions by Dr Vital in October. We will order imaging of her head and neck to make sure that there are no concerning findings from her previous radiation therapy for head and neck cancer. This will be arranged locally in [facility] and as needed a clinical evaluation will also be done. Patient is in agreement with this plan documented in this encounter Plan of Treatment Not on file documented as of this encounter Visit Diagnoses Diagnosis Tongue cancer Malignant neoplasm of tongue, unspecified site documented in this encounter Care Teams Linter Saw Sharpener Relationship Specialty Start Date End Date Marck Brody DO [address] [place] [address] PCP - General 02/08/10 10/12/21 documented as of this encounter
--- OUTSIDE RECORDS SUMMARY | 2023-12-08 20:06 | XMS_ITS | Encounter Summary ---
Author Organization Formerly [facility], [facility] Address [facility] [place] [address] Care Team Providers Care Roving Frame Tender Name Role Phone Marck Brody DO Primary Care Provider [phone] Reason for Visit * Reason Onset Date Comments Questions 05/15/2014 Encounter Details Date Type Department Care Team (Late st Contact Info) Description 05/15/2014 Telephone [place] [phone] Alfred Vital MD [facility] ORAL [place] [address] Questions Social History Tobacco Use Types Packs/Day Years [...] encounter Miscellaneous Notes * Telephone Encounter - Nenita Ramsay - 05/15/2014 1:53 PM EST Theresa contacted the clinic 1 week s/p extraction of teeth #18 & 19 and mandible biopsy. She would like to return to exercising, which is not a problem. She also had questions regarding mouth rinsing and irrigation. She stopped by the clinic to pick pack worker an irrigation syringe. I suggested she rinse after eating and use the irrigation syringe only a couple times daily, due to slight discomfort she was experiencing with irrigation. She also has begun taking OTC itch cream for yeast infection. She thought it might be related to the Amoxicillin, which she has discontinued to do GI upset. I encouraged her to contact her PCP if thecream does not alleviate symptoms. She can also use ice to help with itching. She will follow up with Dr. Vital in mid May. documented in this encounter Plan of Treatment Not on file documented as of this encounter Visit Diagnoses Not on filedocumented in this encounter Care Teams Roving Frame Tender Relationship Specialty Start Date End Date Marck Brody DO [address] [place] [address] PCP - General 02/08/10 10/12/21 documented as of this encounter
--- OUTSIDE RECORDS SUMMARY | 2023-12-08 20:06 | XMS_ITS | Encounter Summary ---
Author Organization Formerly [facility], [facility] [place] [address] Care Team Providers Care Administrative Support Specialist Name Role Phone Marck Brody DO Primary Care Provider Reason for Referral * Allergy Testing (Routine) - Closed Specialty Diagnoses / Procedures Referred By Shirley cuevas Referred To Contact Allergy Diagnoses Allergic symptoms, initial encounter Patient with recently noted reaction (increased secretions and airway closing up) with certain foods, possiblly shrimp. Patient also has altered oral anatomy, s/p left lateral glossectomy, neckdissection of levels 1-5, and adjuvant chemorads in 2006 Hermelindo Kearney PA [facility] [place] [address] [facility] Allergy [address] [place] [id number] Referral ID Status Reason Start Date Expiration Date V isits Requested Visits Authorized [id number] Closed Consult, Test & Treat 08/28/2016 08/28/2017 1 1 Reason for Visit * Reason Comments Advice Only right lower sore gum ,no other pain Encounter Details Date Type Department Care Team (Late st Contact Info) Description 08/28/2016 11:00 AM EDT Office Visit Otolaryngology at [facility] [place] [address] Roberth Lee MD [facility] [place] [address] Allergic symptoms, initial encounter; H/O tongue cancer; Osteonecrosis of mandible Social [...] Sign Reading Time Taken Comments Blood Pressure 119/67 08/28/2016 10:53 AM EDT Pulse 92 08/28/2016 10:53 AM EDT Temperature - - Respiratory Rate 16 08/28/2016 10:53 AM EDT Oxygen Saturation 100% 08/28/2016 10:53 AM EDT Inhaled Oxygen Concentration - - Weight 45.3 kg (99 lb 12.8 oz) 08/28/2016 10:53 AM EDT Height - - Body Mass Index 18.25 03/23/2016 10:20 AM EST documented in this encounter Progress Notes * Hermelindo Kearney PA - 08/28/2016 11:00 AM EDT [facility] Head and Neck Tumor Clinic Follow up visit This is a 46 y.o. female here today for persistent tongue pain. ?? Primary site: Left lateral tongue Stage: [id number] Surgery(ies): 10/31/06 - Hemiglossectomy, left neck dissection 1-5, skin graft, allograft Radiation: TREATMENT STARTED: 11/28/06 TREATMENT COMPLETED: 01/14/07 TREATMENT: The total maximum dose was 6600 cGy in 33 fractions. Volume reductions were instituted at 5400 cGy in 30 fractions & 6000 cGy in 30 fractions. Chemotherapy: Concurrent cisplatin ? New concerns since last visit: Had spot on left tongue that was sore and red. Had a couple of colds/flus in June, and when resolved noted it. Had been using BMX and orogel in that area. Stopped using orogel, and the painful spot went away. Feels the gums on the lower right was infected recently. Also recently noted has reaction to certain foods, possibly shrimp. Has increased secretions and her airway seemed to close up some. Requests allergy referral for this to avoid problems in the future. Would like to discuss putting off the mandible surgery until next year. Asks what antiseptic she could use for her oral cavity. Denies fevers, chills, night sweats or unintended weight loss. Head and neck symptom survey >Symptom ?? >Comments Dysphagia n Odynophagia n Voice change or hoarseness n Breathing difficulties n Otalgia n Hemoptysis ?? Adenopathy n Weight loss n Xerstomia n Trismus y Stable recently Numbness n Loose Dentition y Left lower premolar and lower central incisors Taste disturbance n ?? PROBLEM LIST Patient Active Problem List Diagnosis Date Noted ??? Periodontal disease 05/29/2014 ??? DIFFICULT AIRWAY 05/06/2014 Chronic ??? Radiation injury 01/21/2014 ??? Tinnitus 01/18/2012 ??? History of tongue cancer 01/18/2012 ??? Hypothyroidism (acquired) 08/23/2010 ??? Tongue cancer 08/23/2010 Chronic PAST HISTORY Past Medical History: Diagnosis Date ??? Breast cancer ??? Cancer of head, face, and neck ??? Hypothyroidism Past Surgical History: Procedure Laterality Date ??? GLOSSECTOMY Right partial ??? LYMPHADENECTOMY SND 1-5 ??? PRO BONE BIOPSY,TROCAR/NEEDLE SUPERF Left 05/06/2014 BIOPSY BONE, TROCAR OR NEEDLE, SUPERFICIAL, MANDIBLE performed by Alfred Vital MD at [facility] ??? PRO REMOVAL ERUPTED TOOTH WITH ELEVATION OF MUCOPERIOSTEAL FLAP N/A 05/06/2014 SURGICAL EXTRACTIONS REQUIRING ELEVATION OF MUCOPERIOSTEAL FLAP AND REMOVAL OF BONE OR SECTION OF TOOTH performed by Alfred Vital MD at [facility] ??? SKIN GRAFT FAMILY HISTORY Family History Problem Relation Age of Onset ??? Breast Cancer Maternal Grandmother SOCIAL HISTORY Social History Substance Use Topics ??? Smoking status: Never Smoker ??? Smokeless tobacco: Never Used ??? Alcohol use Yes Comment: seldom, 4 drinks per year ALLERGIES Allergies Allergen Reactions ??? Benzocaine Made pt tongue red and angry ??? Lidocaine Viscous [Lidocaine Hcl] MEDICATIONS Current Outpatient Prescriptions Medication Sig Dispense Refill ??? levothyroxine (SYNTHROID) [...] mouth daily. Indications: Hyperbaric oxygen therapy ??? chlorhexidine (PERIDEX) 0.12 % Mouthwash Take 15 mLs by mouth 2 times daily. 473 mL 5 No current facility-administered medications for this visit. ROS: Pertinent positive findings discussed above. No other findings on review of constitutional visual, cardiovascular, respiratory, gastrointestinal, genitourinary, musculoskeletal, dermatologic, neurological, psychiatric, endocrine, hematologic or immunologic systems. EXAM: Vitals: Blood pressure 119/67, pulse 92, resp. rate 16, weight 45.3 kg (99 lb 12.8 oz), SpO2 100 %. General: No acute distress Face: Normocephalic and atraumatic Eyes: Extraocular movement is full and intact. No dysconjugate gaze. No evidence of nystagmus. Periocular structures and conjunctiva healthy without lesions. Ears: Left: cerumen impaction obstructing assessment. Right:cerumen impaction obstructing assessment. Nose: Normal external exam. Normal exam of the septum and turbinates. Mouth: Post surgical changes noted. Lips and gingiva pink, moist, with some erosion of the attachedgingiva at the mandibular central incisors. Tongue with minimal mobility. No exposed bone noted. Lower left premolar and central incisors slightly mobile. FOM on right soft; on the left with induration, stable, noted on prior exams. Hard palate without lesions. Pharynx: Normal exam of the tonsils, tonsillar fossa, soft palate, lateral pharyngeal wall, and posterior pharynx. Neck: No lymphadenopathy noted. Resp: Breathing comfortably without stridor or retractions. Normal respirations. MSK: Mild trismus. Normal neck range of motion. Skin: Skin survey of the head and neck is without concerning lesion. Neurologic: Cranial nerves II-XII intact and symmetric. Responds appropriately to questions. Psych: Normal mood and affect. ASSESSMENT Theresa Castillo is a 46 year old female with a history of left lateral tongue cancer, s/p left hemiglossectomy, left ND levels 1-5, skin graft, with adjuvant chemoradiation; treatment finished 12/23. Has recently had some dental work with HBOT and extractions, and developed a fracture in her left mandibular body. here for a painful spot on her tongue. Has discussed with Dr. Lee and Dr. Vital regarding the need to have reconstructive surgery, and the patient today expressed wanting to wait until next summer for such surgery. Today the involved nature of such a surgery was discussed, as were the risk of such a procedure, especially considering the patient's past health history. It was felt to be reasonable to hold off fornow on planning a surgery, and to discuss it again next year, allowing some time to pass to determine better if the risks were worth the benefits. Also discussed were how to keep her oral cavity clean and free of infection. Discussed using waterpik to keep gums clean and avoiding infection. Also discussed the use of Peridex mouth rinses. Finally, her recent allergy symptoms were discussed, as was the concerning symptoms of airway closure with certain foods, including shrimp. Discusses seeing an Apartment Assistant Manager to help RECOMMENDATIONS Peridex mouth rinse as needed. Prescription with refills given. Referral to Allergy given. Waterpik use. Return to clinic next spring to assess mandible. If any concerning changes to her mandible or oral cavity occur in the interim, patient should call to be seen. Hermelindo Kearney PA-C 08/28/2016 [place], [place] [address] Office documented in this encounter Plan of Treatment Scheduled Referrals Name Type Priority Associated Diagnoses Orde r Schedule Referral to Allergy Outpatient Referral Routine Allergic symptoms, initial encounter Ordered: 08/28/2016 documented as of this encounter Visit Diagnoses Diagnosis Allergic symptoms, initial encounter H/O tongue cancer Personal history of malignant neoplasm of tongue Osteonecrosis of mandible Aseptic necrosis of other bone site documented in this encounter Care Teams Administrative Support Specialist Relationship Specialty Start Date End Date Marck Brody DO [address] [facility] [place] [address] PCP - General 02/08/10 10/12/21 documented as of this encounter
--- OUTSIDE RECORDS SUMMARY | 2023-12-08 20:06 | XMS_ITS | Encounter Summary ---
Author Organization Formerly [facility] Address [facility] [place] [address] Care Team Providers Care Operations General Agent Name Role Phone Marck Brody DO Primary Care Provider [phone] Encounter Details Date Type Department Care Team (Latest Contact Info) Description 02/01/2016 - 02/01/2016 11:59 PM EST Hospital Encounter Radiology Library at [facility], [place] [id number] Marck Sherman MD [address] [place] [address] [place] [address] Pain Discharge Disposition: Home Social History Tobacco Use [...] Comments FILM LIBRARY STORAGE ONLY CT HEAD AND SPINE Routine 02/01/2016 12:00 AM EST Pain documented in this encounter Results * Film Library- Storage Only CT Head And Spine (02/01/2016 12:00 AM EST) Narrative [place] - 02/05/2016 8:10 AM EST This exam is for storage only and is auto-finalizing. Marck Sherman MD IMG FILM LIBRARY ORD ERABLES Performing Organization Address City/State/[facility] Co de Phone Number [place], [place] documented in this encounter Visit Diagnoses Diagnosis Pain Generalized pain documented in this encounter Care Teams Operations General Agent Relationship Specialty Start Date End Date Marck Brody DO [address] [place] [address] PCP - General 02/08/10 10/12/21 documented as of this encounter
--- OUTSIDE RECORDS SUMMARY | 2023-12-08 20:06 | XMS_ITS | Encounter Summary ---
Author Organization [facility] [place] [address] Care Team Providers Care Marketing Services Rep Name Role Phone Marck Brody DO Primary Care Provider Encounter Details Date Type Department Care Team (Late st Contact Info) Description 01/25/2015 12:27 PM EST - 01/25/2015 11:59 PM [facility] Hospital [place] [phone] Marck Brody DO [address] [place], [place] [address] Encounter for screening mammogram for breast cancer [...] Name Priority Date/Time Associated Diagnosis Comments MAMMO 2D DIGITAL SCREEN DEMETRIO BILATERAL Routine 01/25/2015 1:02 PM EST Encounter for screening mammogram for breast cancer documented in this encounter Results * Mammo Screen Demetrio 2D Bilateral (01/25/2015 1:02 PM EST) Anatomical Region Laterality Modality Breast Bilateral Mammography Narrative 01/26/2015 8:51 AM EST Bilateral mammography Reason for exam: Screening Technique: CC and MLO views were obtained of each breast using standard 2-D mammography as well as 3-D tomosynthesis. Computer aided detection was used. Comparison: This is compared with prior images. Findings: The breasts are heterogeneously dense, which may obscure small masses. There are no suspicious microcalcifications, masses, or areas of distortion. The pattern is stable. Conclusion: No mammographic evidence of malignancy. Recommendation: Routine annual screening mammography is recommended for women age 40 and above. Additional studies may be recommended for women with higher than average risk for breast cancer. BI-RADS Category 1: Negative Marck DYE MAMMO ORDERABLES documented in this encounter Visit Diagnoses Diagnosis Encounter for screening mammogram for breast cancer documented in this encounter Care Teams Marketing Services Rep Relationship Specialty Start Date End Date Marck Brody DO [address] [place] [address] PCP - General 02/08/10 10/12/21 documented as of this encounter
--- OUTSIDE RECORDS SUMMARY | 2023-12-08 20:06 | XMS_ITS | Encounter Summary ---
Author Organization [facility] [place] [address] Care Team Providers Care Compressed Air Pile Driver Operator Name Role Phone Marck Brody DO Primary Care Provider Reason for Visit * Reason Onset Date Comments Medication Refill 01/27/2015 Encounter Details Date Type Department Care Team (Late st Contact Info) Description 01/27/2015 Refill Hematology [place] [phone] Neo Sherman RN History of tongue cancer; Hypothyroidism (acquired) Social History Tobacco Use [...] Telephone Encounter - Neo Sherman RN - 01/27/2015 4:37 PM EST Incoming staff message: Theresa called to say she needs a refill of her thyroid medication. She uses the [facility] in [facility]. If you have any questions, she can be reached at [phone]. Pt seen in ENT clinic 01/25/[address] Lee. TSH in normal range at 2.35. Prescription pended to provider for review and signature. documented in this encounter Plan of Treatment Not on file documented as of this encounter Visit Diagnoses Diagnosis History of tongue cancer Personal history of malignant neoplasm of tongue Hypothyroidism (acquired) Unspecified hypothyroidism documented in this encounter Care Teams Compressed Air Pile Driver Operator Relationship Specialty Start Date End Date Marck Brody DO [address] [place] [address] [address] [facility] [place] [address] PCP - General 02/08/10 10/12/21 documented as of this encounter
--- OUTSIDE RECORDS SUMMARY | 2023-12-08 20:06 | XMS_ITS | Encounter Summary ---
Author Organization [facility] [place] [address] Care Team Providers Care Manager Plan Name Role Phone Marck Brody DO Primary Care Provider [phone] Encounter Details Date Type Department Care Team (Late st Contact Info) Description 01/25/2016 Telephone [place] [phone] Du, Yun R Social History Tobacco Use Types Packs/Day Years [...] encounter Miscellaneous Notes * Telephone Encounter - DuYun dickinson R - 01/25/2016 11:26 AM EST Theresa contacted the office today inquiring about an appointment with Dr. Vital before 02/14. She is experiencing jaw pain and numbness. Her dentist would like to extract 4 teeth, but she would liketo see Dr. Vital prior the procedure. After a brief conversation with Dr. Vital he is recommending that she reach out to her Oncologist regarding the pain and numbness. He would not see her for the jaw pain or the extractions. She requested to speak with Dr. Lee's office. I attempted to transfer them, but the connection was lost. documented in this encounter Plan of Treatment Not on file documented as of this encounter Visit Diagnoses Not on filedocumented in this encounter Care Teams Manager Plan Relationship Specialty Start Date End Date Marck Brody DO [address] [place] [address] PCP - General 02/08/10 10/12/21 documented as of this encounter
--- OUTSIDE RECORDS SUMMARY | 2023-12-08 20:06 | XMS_ITS | Encounter Summary ---
Author Organization [facility] [place] [address] Care Team Providers Care Material Handler Floorperson Name Role Phone Marck Brody DO Primary Care Provider [phone] Reason for Visit * Reason Comments On Treatment Visit HBOT # 27 Encounter Details Date Type Department Care Team (Latest Contact Info) Description 05/15/2014 7:00 AM EST - 05/15/2014 11:59 PM EST Hospital Encounter [facility] [place] [phone] Radiation injury, sequela Social History Tobacco Use [...] Sign Reading Time Taken Comments Blood Pressure 109/59 05/15/2014 9:35 AM EST Pulse 69 05/15/2014 9:35 AM EST Temperature 36.3 ??C (97.3 ??F) 05/15/2014 7:10 AM ES T Respiratory Rate - - [...] Progress Notes * Tamia Snow RN - 05/15/2014 10:11 AM EST Patient Name: Theresa Hollis Patient Age: 43 y.o. Birthdate: 1970 Admit date: 05/15/2014 Attending Physician: No att. providers found INTERVAL HISTORY: Patient denies any discomfort, changes, issues, complaints. Theresa Hollis received hyperbaric oxygen treatment today for soft tissue radionecrosis 100% cotton clothing in place. Patient checked for non-approved chamber items. Tympanic membranes checked. No redness or perforation noted. Patient assessed and met criteria to proceed with hyperbaric treatment. Safety checklist completed with patient. Grounding strap applied and grounding verified, patient placed in chamber, communications checked. Mary Littlejohn RN/Tamia Snow RN administered the treatment and monitored the patient. HYPERBARIC TREATMENT: Number 27 Planned number of treatments- 30; 20 prior to dental procedure, 10 after dental procedure Compression Rate: 1.5psi/min Decompression Rate: 2.0 psi/min TROY- 2.4 Start Compression Reach Treatment Pressure - 2.4 TROY Air Break Start Air Break Completed Start Decompression Treatment Completed 0719 [id number] 0832 0842 0917 0929 Sechrist Chamber # 1 Clinical Practice Guideline for Hyperbaric Oxygen Therapy Prevent and manage for potential problems related to 1.Barotrauma, 2.oxygen toxicity, and 3.Pneumothorax. 4. Situational Problems Assessed: ALL (Barotrauma, Oxygen Toxicity, Pneumothorax, Situational) Problems Present: Difficulty equalizing pressure in her ears during compression Interventions: She required frequent stops during compression to allow extra time for her to work on equalizing the pressure. She was successful with the stops and extra time. Per Clinical Practice Guidelines for Hyperbaric Oxygen Therapy through [facility]. No issues or complaints during or after treatment. Patient assessed and found appropriate to leave the Hyperbaric area at the conclusion of today???s session. Continue HBOT as planned. Next treatment scheduled for May 18. documented in this encounter Plan of Treatment Not on file documented as of this encounter Visit Diagnoses Diagnosis Radiation injury, sequela documented in this encounter Care Teams Material Handler Floorperson Relationship Specialty Start Date End Date Marck Brody DO [address] [place] [address] [address] [facility] 1 [place] [address] PCP - General 02/08/10 10/12/21 documented as of this encounter
--- OUTSIDE RECORDS SUMMARY | 2023-12-08 20:06 | XMS_ITS | Encounter Summary ---
Author Organization [facility] [place] [address] Care Team Providers Care Management Development Specialist Name Role Phone Marck Brody DO Primary Care Provider [phone] Reason for Visit * Reason Comments On Treatment Visit HBOT #28 Encounter Details Date Type Department Care Team (Late st Contact Info) Description 05/18/2014 7:10 AM EST - 06/16/2014 11:59 PM EDT Hospital Encounter [facility] [place] [phone] CLINIC, Marck Edwards, DO [address] [place] [address] Radiation injury, sequela Discharge Disposition: Home Social [...] Sign Reading Time Taken Comments Blood Pressure 130/58 05/18/2014 9:30 AM EST Pulse 60 05/18/2014 9:30 AM EST Temperature 36.9 ??C (98.4 ??F) 05/18/2014 7:15 AM ES T Respiratory Rate - - Oxygen Saturation - - Inhaled Oxygen Concentration - - Weight - - Height - - Body Mass Index - - documented in this encounter Medications at Time of Discharge Medication Sig Dispensed Refills Start Date End Date CALCIUM CARBONATE/VITAMIN D2 (LIQUID CALCIUM ORAL) Take [...] 12 01/19/2014 01/27/2015 cevimeline (EVOXAC) 30 mg capsuleIndications:To ngue cancer Take 1 capsule by mouth 3 times daily. 90 capsule 12 10/13/2013 10/29/2014 documented as of this encounter Progress Notes * Tamia Snow RN - 05/18/2014 9:12 AM EST Patient Name: Theresa Hollis Patient Age: 43 y.o. Birthdate: 1970 Admit date: 05/18/2014 Attending Physician: Dr Jenn Esparza HISTORY: Patient denies any discomfort, changes, issues, complaints. Wound - She feels extraction site is healing well, not having any issues with the site. Theresa Hollis received hyperbaric oxygen treatment today [...] treatment and monitored the patient. HYPERBARIC TREATMENT: Number- 28 Planned number of treatments- 30 total; 20 prior to dental procedure, 10 after procedure. Compression Rate: 1.5psi/min Decompression Rate: 2.0 psi/min TROY-2.4 Start Compression Reach Treatment Pressure - 2.4 TROY Air Break Start Air Break Completed Start Decompression Treatment Completed 0722 0743 0828 0814 0926 0555 Sechrist Chamber # 1 Clinical Practice Guideline for Hyperbaric Oxygen Therapy Prevent and manage for potential problems related to 1.Barotrauma, 2.oxygen toxicity, and 3.Pneumothorax. 4. Situational Problems Assessed: ALL (Barotrauma, Oxygen Toxicity, Pneumothorax, Situational) Problems Present: None, (Barotrauma, Oxygen Toxicity, Pneumothorax, Situational) No issues or complaints during or after treatment. Interventions: Per Clinical Practice Guidelines for Hyperbaric Oxygen Therapy through [facility]. No issues or complaints during or after treatment. Patient assessed and found appropriate to leave the Hyperbaric area at the conclusion of today???s session. Continue HBOT as planned. Next treatment scheduled for tomorrow May 19. documented in this encounter Plan of Treatment Not on file documented as of this encounter Visit Diagnoses Diagnosis Radiation injury, sequela documented in this encounter Care Teams Management Development Specialist Relationship Specialty Start Date End Date Marck Brody DO [address] [place] [address] PCP - General 02/08/10 10/12/21 documented as of this encounter
--- OUTSIDE RECORDS SUMMARY | 2023-12-08 20:06 | XMS_ITS | Encounter Summary ---
Author Organization [facility] Address [facility] [place] [address] Care Team Providers Care Fish Cutting Machine Operator Name Role Phone Marck Brody DO Primary Care Provider Reason for Visit * Reason Comments Follow-up s/p extraction 18 & 19 and bone biopsy Encounter Details Date Type Department Care Team (Late st Contact Info) Description 06/09/2014 10:00 AM EDT Follow-Up [place] [phone] Alfred Vital MD [facility] ORAL [place] [address] Edentulism; S/P radiation therapy Discharge Disposition: Home Social History Tobacco Use [...] Sign Reading Time Taken Comments Blood Pressure 105/62 06/09/2014 10:37 AM EDT Pulse 85 06/09/2014 10:37 AM EDT Temperature - - Respiratory Rate - - Oxygen Saturation - - Inhaled Oxygen Concentration - - Weight - - Height - - Body Mass Index - - documented in this encounter Progress Notes * Alfred Vital MD - 06/09/2014 10:39 AM EDT Oral & Maxillofacial Surgery Lesion Follow Up Theresa Hollis returns for follow up of extraction teeth #18 & 19 and bone biopsy on 05/06/14. ---Pathologic Diagnosis--- A - Extraction site, tooth #19, curetting: Lamellar bone and soft tissue with chronic inflammation and granulation tissue; negative for malignancy. B - Bone between the roots of tooth 18, curetting: Portion of tooth, negative for malignancy Interval History: Theresa was questioned with regards to new lumps or bumps,intra or extraoral drainage, difficulty chewing or swallowing, oral bleeding, dysarthria or altered oral sensation from priorexamination. Weight and appetite were evaluated and pertinent interval changes include: ?? No difficulty chewing ?? No drainage or foul taste ?? No changes in occlusion or loose teeth ?? No dental discomfort ?? No exfoliation of bone chips ?? 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 [...] and lymphatic anatomy. Pertinent findings include: ?? Posterior extraction site appears granulated with almost complete mucosalization ?? Eschar appearing granulation tissue over the anterior extraction site smaller than on previous exam but still not completely healed; no exposed bone but granulation tissue needs to be gently caredfor. ?? 2nd premolar is firm but has significant area of distal root exposure. ?? There is plaque and some limited calculus on several anterior teeth; methods of cleaning were reviewed since these areas will pose difficulties in the future if continued periodontal involvement progresses. ?? Her range of motion is good but somewhat limited. ?? The tongue is firm and indurated without evidence of ulceration. Pertinent imaging studies: panorex radiograph obtained today demonstrates no extensive bone loss and will be used as a baseline for future evaluations.. Impression: Stable post-op course; no evidence of bone exposure or infection at this time. Recommendations and Plan: Caution with hygiene and food collection and gingival maintenance - recommend conical brush. Avoid abrasive foods. Follow up in 6 weeks. Time Statement: Fifteen minutes was spent with the patient greater than 10 minutes of which involved direct discussion with the patient reviewing the findings on examination and the implications for treatment or continued observation. Radiographs were reviewed where appropriate and questions regarding today's visit were answered. The patient was reminded to contact us if there were any further concerns. Nenita Romano CST, am acting as scribe for Dr. Vital. All work documented was performed by Dr. Vital. Alfred Romano, performed the above scribed service and agree with the accuracy of the note. documented in this encounter Plan of Treatment Not on file documented as of this encounter Visit Diagnoses Diagnosis Edentulism Anodontia S/P radiation therapy Convalescence following radiotherapy documented in this encounter Care Teams Fish Cutting Machine Operator Relationship Specialty Start Date End Date Marck Brody DO [address] [place] [address] PCP - General 02/08/10 10/12/21 documented as of this encounter
--- OUTSIDE RECORDS SUMMARY | 2023-12-08 20:06 | XMS_ITS | Encounter Summary ---
Author Organization [facility] [place] [address] Care Team Providers Care Truck Sales Representative Name Role Phone Marck Brody DO Primary Care Provider [phone] Reason for Visit * Reason Comments Follow-up Encounter Details Date Type Department Care Team (Late st Contact Info) Description 02/24/2016 11:30 AM EST Office Visit Hematology [place] [phone] Marck Sherman MD [address] [place] [address] [place] [address] Candidiasis of mouth; Hypothyroidism (acquired) Social History Tobacco Use Types [...] Reading Time Taken Comments Blood Pressure 124/85 02/24/2016 10:26 AM EST Pulse 82 02/24/2016 10:26 AM EST Temperature 36.4 ??C (97.5 ??F) 02/24/2016 10:[address] Respiratory Rate 16 02/24/2016 10:26 AM EST Oxygen Saturation 100% 02/24/2016 10:26 AM EST Inhaled Oxygen Concentration - - Weight 45.1 kg (99 lb 6.4 oz) 02/24/2016 10:26 A M EST Height 158.7 cm (5' 2.48) 02/24/2016 10:[address] Body Mass Index 17.9 02/24/2016 10:26 AM EST documented in this encounter Progress Notes * Guevara Hinkle MD - 02/24/2016 11:30 AM EST Head and Neck Cancer Medical Oncology Follow-Up Note Patient Active Problem List Diagnosis ??? Periodontal disease ??? DIFFICULT AIRWAY 05/06/2014 - see airway note in anesthesia record ??? Radiation injury Has dry mouth/xerostomia, retraction of gums ??? 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 History of tongue cancer ??? Hypothyroidism (acquired) UNE=196 in 06/25. Started on synthroid 25mcg po [...] tube, severe oral pain; excellent functional recovery Chief complaint: followup for head/neck cancer. Interval History: Time from treatment: 9 years from completion of concurrent chemo/RT Pain: none Swallowing problems: Food occasionally gets stuck - hasn't gotten worse. Xerostomia: Continues - always has a drink of water with her. Making some saliva in back of her mouth. Taste sensation: Taste has been fine for a long time. Nutrition problems: Appetite has been great. Metastatic symptoms: none Functional status: Energy level good. Exercises 6 days a week. No bowel or bladder problems. 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 Fine until recently one loose front tooth. Waiting to see Oral surgery today. No pain. Dental hygiene excellent. Medical issues: Got flu shot this fall. Sees primary care regularly. Mammogram today; no breast lumps noted. Remains on levothyroxine 100 mcg at 2AM. Can 'feel' when dose is either too high or too low. Outpatient Prescriptions Marked as Taking for the 02/24/16 encounter (Office Visit) with Marck Sherman MD Medication Sig Dispense Refill ??? levothyroxine (SYNTHROID) 100 mcg Tablet Take 1 tablet by mouth daily. 30 tablet 11 ??? calcium carbonate (TUMS) 200 mg calcium (500 mg) Tablet, Chewable Take 1 tablet by mouth daily. ??? vitamin E 400 unit Capsule Take 400 Units by mouth daily. Indications: Hyperbaric oxygen therapy Social History: reviewed, no changes from last visit. 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 Family History: reviewed; no new developments. Here with mother and father today. Review of Systems: Review of systems is negative for other WAFER BATTER MIXER, bone, pulmonary, cardiac, GI, , extremity, neurologic, endocrine, skin, constitutional, emotional, or functional problems. Oncology Vitals 02/24/2016 Weight (lb) 99 lb 6.4 oz Height 158.7 cm BSA (Calculated - sq m) 1.41 BMI (Calculated) 17.9 Temp 97.5 Temp src 1 Pulse 82 Heart Rate Source Resp 16 BP 124/85 BP Location Left arm Patient Position Sitting SpO2 100 Exam: General appearance: NAD, thin/small framed. Speech quality remarkably good. Skin: clear Oral: S/p partial glossectomy. No tumor, no leukoplakia Dentition: Excellent hygiene. Neck: Grade 1 L surgical bed fibrosis; no lymphedema Right: no adenopathy Left: no adenopathy Nose: clear Ear: Moderate cerumen R & L Peripheral nodes: nil Chest: clear Heart: RRR, normal tones Abdomen: benign, no HSM Extremities: normal, no clubbing or edema Neurologic: Cranial nerves: normal Reflexes: 2 + Laryngoscopy: None today Recent Results (from the past 72 hour(s)) TSH Result Value Ref Range TSH 6.22 (H) 0.27 - 4.20 mcIU/mL Radiology: I personally reviewed images from recent CT. Mammogram was negative for malignancy. Impression and Plans: 1. Tongue cancer: clinically MALLY at 9 years. Excellent functional recovery; speech quality is amazingly good considering the amount of surgery + postop chemoRT. Unfortunately her dentition is suffering the long-term consequences of RT. Plan: Ongoing surveillance per [facility] Head/Neck standard plan. Followup in 1 year, coord with ENT. Recheck TSH at that visit. Emerging data in nonsmokers suggest that second primary cancer risk is not as high as we used to think, and therefore we can do without the yearly chest Xray. Dental Rx per dental and oromaxillofacial team. She will be seeing them this afternoon. 2. Hypothyroidism (acquired): TSH a bit high. Gradual escalation of levothryox dose is common following RT. Plan: ?? New Rx for levothyoxine 112 mcg/day sent to local pharmacy ?? Will arrange F/U visit with Kimberly Montano APRN at [facility] in ~2 months for TSH recheck. Guevara Hinkle MD Hematology/Oncology Fellow [place] [phone] Pager: [phone] * Marck Sherman MD - 02/24/2016 11:30 AM EST Attending Addendum I reviewed the case with Dr. Hinkle, reviewed the history, saw and examined the patient, and personally reviewed relevant lab data and radiographic images. My H&P concurs with the Fellow's; in addition, she has a few tiny pinpoint plaques on soft palate and buccal mucosa suggestive of Bharti. She has had this previously, following antibiotic therapy. We will Rx nystatin. I participated in medical decision making and agree with the plans as outlined. Increase levothyroxine to 112, and recheck in a few months. Dental Rx per Dr. Vital and her personal dentist. Marck Sherman MD, FACP Hematology/Oncology documented in this encounter Miscellaneous Notes * Addendum Note - Guevara Hinkle MD - 02/24/2016 7:23 PM ESTAddended by: GUEVARA HINKLE on: 02/24/2016 07:23 PM Modules accepted: Orders documented in this encounter Plan of Treatment Not on file documented as of this encounter Results * (ABNORMAL) TSH (03/22/2017 11:35 AM EST) Thyroid Stimulating Hormone 0.23(L) 0.27 - 4.20 mlU/ML [facility] Blood specimen (specimen) 03/22/2017 11:35 AM EST 03/22/2017 11:43 AM EST Narrative Resulting Agency Comment Spec In Lab Marck Sherman MD CHEMISTRY ORDERABLES Performing Organization Address City/State/[facility] Co de Phone Number [facility] [place] [address] documented in this encounter Visit Diagnoses Diagnosis Candidiasis of mouth Hypothyroidism (acquired) Unspecified hypothyroidism documented in this encounter Care Teams Truck Sales Representative Relationship Specialty Start Date End Date Marck Brody DO [address] [place] [address] PCP - General 02/08/10 10/12/21 documented as of this encounter
--- OUTSIDE RECORDS SUMMARY | 2023-12-08 20:06 | XMS_ITS | Encounter Summary ---
Author Organization [facility] [place] [address] Care Team Providers Care Cargo Services Coordinator Name Role Phone Marck Brody DO Primary Care Provider [phone] Reason for Visit * Reason Onset Date Comments Medication Refill 02/14/2016 Encounter Details Date Type Department Care Team (Late st Contact Info) Description 02/14/2016 Refill Hematology [place] [phone] Neo Sherman RN History of tongue cancer; [...] Telephone Encounter - Neo Sherman RN - 02/14/2016 12:02 PM EST Nursing Refill Note Incoming staff message: Pt called and requested refill of levothyroxine 100 mcg prescription. 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 Patient returning to clinic in early February,. documented in this encounter Plan of Treatment Not on file documented as of this encounter Visit Diagnoses Diagnosis History of tongue cancer Personal history of malignant neoplasm of tongue Hypothyroidism (acquired) Unspecified hypothyroidism documented in this encounter Care Teams Cargo Services Coordinator Relationship Specialty Start Date End Date Marck Brody DO [address] [place] [address] PCP - General 02/08/10 10/12/21 documented as of this encounter
--- OUTSIDE RECORDS SUMMARY | 2023-12-08 20:06 | XMS_ITS | Encounter Summary ---
Author Organization [facility] [place] [address] Care Team Providers Care Building Maintenance Supervisor Name Role Phone Marck Brody DO Primary Care Provider Encounter Details Date Type Department Care Team (Late st Contact Info) Description 05/12/2016 Telephone Hematology [place] [phone] Mesha Briggs RN Social History Tobacco Use [...] Miscellaneous Notes * Telephone Encounter - Mesha Mendoza RN - 05/12/2016 9:00 AM EST Message received from clinical paralegal legal secretary: Please call patient at [phone], she would just like to know her 02/24/16 TSH lab results Call placed to patient and updated her that her TSH level on 02/24/16 was 6.22. Patient denied any further questions and/or concerns. documented in this encounter Plan of Treatment Not on file documented as of this encounter Visit Diagnoses Not on filedocumented in this encounter Care Teams Building Maintenance Supervisor Relationship Specialty Start Date End Date Marck Brody DO [address] [facility] [address] [place] [address] PCP - General 02/08/10 10/12/21 documented as of this encounter
--- OUTSIDE RECORDS SUMMARY | 2023-12-08 20:06 | XMS_ITS | Encounter Summary ---
Author Organization [facility] [place] [address] Care Team Providers Care Transfusion Nurse Name Role Phone Marck Brody DO Primary Care Provider Encounter Details Date Type Department Care Team (Late st Contact Info) Description 02/07/2016 Orders Only Radiation [place] [address] Natalie Harris, GOODWILL AMBASSADOR [address] [place] [address] DR [place] [address] Social History Tobacco Use Types [...] on filedocumented in this encounter Care Teams Transfusion Nurse Relationship Specialty Start Date End Date Marck Brody DO [address] [place] [address] PCP - General 02/08/10 10/12/21 documented as of this encounter
--- OUTSIDE RECORDS SUMMARY | 2023-12-08 20:06 | XMS_ITS | Encounter Summary ---
Author Organization [place] [address] Care Team Providers Care Clean In Places Operator Name Role Phone Marck Brody DO Primary Care Provider [phone] Reason for Visit * Reason Onset Date Comments Follow-up 05/12/2016 Encounter Details Date Type Department Care Team (Late st Contact Info) Description 05/12/2016 Telephone Hematology/Oncology at [address] [phone] Honey Lowe RN Follow-up Social History Tobacco Use Types Packs/Day Years [...] encounter Miscellaneous Notes * Telephone Encounter - Honey Lowe RN - 05/12/2016 1:01 PM EST Theresa called per Pawel Montano NP to let her know that TSH was 1.4 normal range and to continue her synthroid 112mcg daily. Pt was surprised as she had choking episode the other day and that usual happens when thyroid off and her muscles don't work as well. I told her I would inform Pawel Montano NP she agreed with plan. documented in this encounter Plan of Treatment Not on file documented as of this encounter Visit Diagnoses Not on filedocumented in this encounter Care Teams Clean In Places Operator Relationship Specialty Start Date End Date Marck Brody DO [address] [place] [address] PCP - General 02/08/10 10/12/21 documented as of this encounter
--- OUTSIDE RECORDS SUMMARY | 2023-12-08 20:06 | XMS_ITS | Encounter Summary ---
Author Organization [facility] Address [facility] [place] [address] Care Team Providers Care Silica Mixer Operator Name Role Phone Marck Brody DO Primary Care Provider Reason for Visit * Reason Comments Follow-up s/p exo 18 and 19 an d mandible biopsy Encounter Details Date Type Department Care Team (Late st Contact Info) Description 07/21/2014 8:05 AM EDT Follow-Up [place] [phone] Alfred Vital MD [facility] ORAL [place] [address] Periodontal disease; History of tongue cancer; S/P radiation therapy Discharge Disposition: Home Social [...] Reading Time Taken Comments Blood Pressure 115/73 07/21/2014 8:01 AM EDT Pulse 77 07/21/2014 8:01 AM EDT Temperature - - Respiratory Rate - - Oxygen Saturation - - Inhaled Oxygen Concentration - - Weight - - Height - - Body Mass Index - - documented in this encounter Progress Notes * Alfred Vital MD - 07/21/2014 8:03 AM EDT Oral & Maxillofacial Surgery Lesion [...] pertinent interval changes include: ?? She has had some aching in the anterior mandible with gingival recession. She has been using Orajel and occasional children's liquid acetminophen to help resolve it. Pain is a 4 out of 10, but there are days when it reaches a 7 out of 10. ?? She is rinsing with Biotine and irrigating her mouth with syringe provided TID. ?? No antibiotic regimen at this time. ?? She has been using a Therabite ?? It has been years since her last diagnostic imaging. Patient Active Problem List Diagnosis Code ??? [...] and lymphatic anatomy. Pertinent findings include: ?? No facial asymmetry ?? Mandibular ROM maximum inter-incisal distance 25 mm ?? Hard and soft palate mucosa unremarkable ?? Oropharynx unremarkable ?? Mandibular left extraction sites are 99% mucosalized ?? Moderate root exposure tooth #20 - on distal aspect with moderate plaque ?? Moderate gingival recession tooth #24 ?? Moderate xerostomia ?? Tongue scarring unchanged from prior exams ?? Good oral hygiene ?? Minor telangiectasia right buccal mucosa ?? Left buccal mucosa WNL ?? No cervical adenopathy Pertinent imaging studies: prior panorex radiographs are reviewed. Impression: Doing well with some gingival recession; tolerated HBO and is looking forward to eatingbacon but i would like to maintain soft diet for an additional month. Recommendations and Plan: Follow up with Dr. Mullins for cleaning and scaling without exposing bone, and possible fluoride treatment of exposed root structure. Would avoid abrasive foods to preventirritation; allow one more month to progress to more difficult foods. Follow up in 3 months. Time Statement: Fifteen minutes was spent with the patient greater than 11 minutes of which involved direct discussion with the patient reviewing the findings on examination and the implications for treatment or continued observation. Radiographs were reviewed where appropriate and questions regarding today's visit were answered. The patient was reminded to contact us if there were any further concerns. Nenita Romnao, DIRECTOR OF FIELD SERVICE, am acting as scribe for Dr. Vital. [...] Personal history of malignant neoplasm of tongue S/P radiation therapy Convalescence following radiotherapy documented in this encounter Care Teams Silica Mixer Operator Relationship Specialty Start Date End Date Marck Brody DO [address] [place] [address] PCP - General 02/08/10 10/12/21 documented as of this encounter
--- OUTSIDE RECORDS SUMMARY | 2023-12-08 20:07 | XMS_ITS | Encounter Summary ---
Author Organization [facility] [address] Care Team Providers Care Inspector Watch Assembly Name Role Phone Marck Brody DO Primary Care Provider Encounter Details Date Type Department Care Team (Late st Contact Info) Description 03/24/2014 Notes Only [facility] [place] [address] Cuba Mcdonald Jr., MD [facility] [place] [address] Social History Tobacco Use Types Packs/Day Years Used Date Smoking Tobacco: Never Smokeless Tobacco: Never Sex and Gender Information Value Date Recorded Sex Assigned at Not on file Gender Identity Not on file Sexual Orientation Not on file documented as of this encounter Progress Notes * Cuba Mcdonald Jr., MD - 03/24/2014 8:26 AM EST Has completed 2 of 05/01 Lio protocol. Progress has been reviewed. She is having difficulty with clearing ears since a cold last week. Was able to reach treatment pressure today. Complications: Eustachian tube dysfunction--improving Follow up plan: Continue with current course of treatment. documented in this encounter Plan of Treatment Not on file documented as of this encounter Visit Diagnoses Not on filedocumented in this encounter Care Teams Inspector Watch Assembly Relationship Specialty Start Date End Date Marck Brody DO [address] [place] [address] PCP - General 02/08/10 10/12/21 documented as of this encounter
--- OUTSIDE RECORDS SUMMARY | 2023-12-08 20:07 | XMS_ITS | Encounter Summary ---
Author Organization [facility] [place] [address] Care Team Providers Care Side Stitching Machine Operator Name Role Phone Marck Brody DO Primary Care Provider Reason for Visit * Reason Comments On Treatment Visit HBOT# 16 Encounter Details Date Type Department Care Team (Latest Contact Info) Description 04/10/2014 7:00 AM EST - 04/10/2014 11:59 PM EST Hospital Encounter [facility] [phone] Radiation injury, sequela Social History Tobacco Use Types Packs/Day Years Used Date Smoking Tobacco: Never Smokeless Tobacco: Never Sex and Gender Information Value Date Recorded Sex Assigned at Not on file Gender Identity Not on file Sexual Orientation Not on file documented as of this encounter Last Filed Vital Signs Vital Sign Reading Time Taken Comments Blood Pressure 115/69 04/10/2014 9:15 AM EST Pulse 65 04/10/2014 9:15 AM EST Temperature 36.9 ??C (98.4 ??F) 04/10/2014 7:23 AM ES T Respiratory Rate 16 04/10/2014 7:23 AM EST Oxygen Saturation - - Inhaled [...] by mouth 2 times daily. 100 mL 3 05/06/2014 05/12/2014 amoxicillin-clavulanate (AUGMENTIN) 400-57 mg/5 mL Suspension for Reconstitution Take 5 mLs by mouth 2 times daily. 100 mL 3 05/06/2014 05/12/2014 amoxicillin-clavulanate (AUGMENTIN) 400-57 mg/5 mL Suspension for [...] Progress Notes * Mary Littlejohn RN - 04/10/2014 8:22 AM EST Patient Name: Theresa Hollis Patient Age: 43 y.o. Birthdate: 1970 Admit date: 04/10/2014 Attending Physician: No att. providers found INTERVAL HISTORY: Visual Change: Has noticed changes in distance vision especially when watching TV. Vision testing performed, results below. Patient denies any further discomfort, issues, complaints. Pain Level: __0___ (0-10 scale) * If greater than 5, document interventions. Snellen Chart Near Vision Both Eyes 20/80 20/20 Right Eye 20/80 20/25 Left Eye 20/80 20/25 Refraction Values Right Left Spherical -1.75 -1.50 Cylinder -1.50 -1.50 [place] 94 84 Education: Theresa Hollis received hyperbaric oxygen treatment [...] treatment and monitored the patient. HYPERBARIC TREATMENT: Number-16 Planned number of treatments-20/10 Compression Rate: 1.5psi/min Decompression Rate: 2.0 psi/min TROY-2.4 Start Compression Reach Treatment Pressure - TROY Air Break Start Air Break Completed Start Decompression Treatment Completed 0728 0748 0813 0824 0859 0910 Sechrist Chamber # 2 Clinical Practice Guideline for Hyperbaric Oxygen Therapy Prevent and manage for potential problems related to 1.Barotrauma, 2.oxygen toxicity, and 3.Pneumothorax. 4. Situational Problems Assessed: ALL (Barotrauma, Oxygen Toxicity, Pneumothorax, Situational) Problems Present: Visual Changes (Barotrauma, Oxygen Toxicity, Pneumothorax, Situational) Theresa has verbalized that she has noticed some subtle changes in her distance vision. When I watchTV at home the letters on the screen are Blurry. I'm not driving though. Interventions: Per Clinical Practice Guidelines for Hyperbaric Oxygen Therapy through [facility]. Vision screening done as per usual screening schedule. See results above. Pt. also demo'd a pair of Adlens glasses and felt they would be helpful. Provided patient with her own Adlens glasses and instructed in use. No other issues or complaints during or after treatment. Alert and oriented, steady gait. Patient assessed and found appropriate to leave the Hyperbaric area at the conclusion of today???s session. Continue HBOT as planned. Next treatment scheduled for 04/13/14 at 7:15. documented in this encounter Plan of Treatment Not on file documented as of this encounter Visit Diagnoses Diagnosis Radiation injury, sequela documented in this encounter Care Teams Side Stitching Machine Operator Relationship Specialty Start Date End Date Marck Brody DO [address] [place] [address] PCP - General 02/08/10 10/12/21 documented as of this encounter
--- OUTSIDE RECORDS SUMMARY | 2023-12-08 20:07 | XMS_ITS | Encounter Summary ---
Author Organization [facility] [place] [address] Care Team Providers Care Family Law Specialist Name Role Phone Marck Brody DO Primary Care Provider [phone] Reason for Visit * Reason Comments On Treatment Visit Encounter Details Date Type Department Care Team (Latest Contact Info) Description 05/08/2014 6:44 AM EST - 05/08/2014 11:59 PM EST Hospital Encounter [facility] [phone] Radiation injury, sequela Social History Tobacco Use [...] Sign Reading Time Taken Comments Blood Pressure 104/61 05/08/2014 9:51 AM EST Pulse 61 05/08/2014 9:51 AM EST Temperature 36.3 ??C (97.3 ??F) 05/08/2014 7:10 AM ES T Respiratory Rate 16 05/08/2014 7:10 AM EST Oxygen Saturation - - [...] Progress Notes * Mary Littlejohn RN - 05/08/2014 10:25 AM EST Patient Name: Theresa Hollis Patient Age: 43 y.o. Birthdate: 1970 Admit date: 05/08/2014 Attending Physician: No att. providers found Patient assessed and met criteria to proceed with hyperbaric treatment. No issues or complaints during or after treatment. I don't have any pain, I'm just a little sleepy. Alert and oriented, stable gait. Patient denies any headache, visual changes, unusual symptoms. Patient assessed and found appropriate to leave the Hyperbaric area at conclusion of today's session. * Ladi Whittaker LNA - 05/08/2014 9:51 AM EST Patient Name: Theresa Hollis Patient Age: 43 y.o. Birthdate: 1970 Admit date: 05/08/2014 Attending Physician: No att. 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 400 IU vitamin E taken before treatment. 100% cotton clothing in place. Pre-HBOT checklist performed with patient/inspection completed. Patient checked for non-approved chamber items. Grounding strap applied and grounding verified. Patient placed in chamber and grounded. Communications checked. Mobility: ambulating independently HYPERBARIC TREATMENT: Tympanic Membranes checked. No redness, drainage, discomfort, membrane intact. Number-22 Planned number of treatments- 20 pre procedure, 10 post procedure Compression Rate: 1.5psi/min Decompression Rate: 2.0psi/min TROY- 2.4 Start Compression Reach Treatment Pressure - TROY Air Break Start Air Break Completed Start Decompression Treatment Completed 07:21 07:41 08:27 08:37 09:12 09:22 Sechrist Chamber # 1 Air Breaks-One 10 minute air break Treatment Notes: Patient tolerated treatment well, no issues with clearing ears as in the past. Condition upon discharge: Awake, coherent speech, ambulating independently, driving self. documented in this encounter Plan of Treatment Not on file documented as of this encounter Visit Diagnoses Diagnosis Radiation injury, sequela documented in this encounter Care Teams Family Law Specialist Relationship Specialty Start Date End Date Marck Brody DO [address] [place] [address] [address] [place] [address] PCP - General 02/08/10 10/12/21 documented as of this encounter
--- OUTSIDE RECORDS SUMMARY | 2023-12-08 20:07 | XMS_ITS | Encounter Summary ---
Author Organization [facility] [place] [address] Care Team Providers Care Distribution Clerk Name Role Phone Marck Brody DO Primary Care Provider Reason for Visit * Reason Comments On Treatment Visit HBOT#3 Encounter Details Date Type Department Care Team (Late st Contact Info) Description 03/23/2014 7:00 AM EST - 04/18/2014 11:59 PM EST Hospital Encounter [facility] [place] [phone] CLINIC, Marck Edwards, DO [address] [place] [address] Radiation injury, sequela Discharge Disposition: Home Social History Tobacco Use Types Packs/Day Years Used Date Smoking Tobacco: Never Smokeless Tobacco: Never Sex and Gender Information Value Date Recorded Sex Assigned at Not on file Gender Identity Not on file Sexual Orientation Not on file documented as of this encounter Last Filed Vital Signs Vital Sign Reading Time Taken Comments Blood Pressure 102/64 03/23/2014 7:10 AM EST Pulse 82 03/23/2014 7:10 AM EST Temperature 36.8 ??C (98.2 ??F) 03/23/2014 7:10 AM ES T Respiratory Rate 16 03/23/2014 7:10 AM EST Oxygen Saturation - - [...] Progress Notes * Mary Littlejohn RN - 03/23/2014 8:28 AM EST Patient Name: Theresa Hollis Patient Age: 43 y.o. Birthdate: 1970 Admit date: 03/23/2014 Attending Physician: Marck Brody DO INTERVAL HISTORY: Patient denies any discomfort, changes, issues, complaints. States she had a bad head cold last week but feels fine now. Denies ear discomfort, sinus discomfort, cold symptoms. Has usual baseline secretions and cough according to patient. My tooth pain is all gone. I just used Sensodyne. Pain Level: _0____ (0-10 scale) * If greater than 5, document interventions. Education: Reinforced early and frequent equalization of ear pressure. 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 100% cotton clothing in place. Patient checked for non-approved chamber items. Tympanic membranes checked. Much of both TM's obstructed with wax. Able to visualize 1/2 of left and 1/4 of right TM. Noredness or perforation noted. Patient assessed and met criteria to proceed with hyperbaric treatment. Safety checklist completed with patient. Grounding strap applied and grounding verified, patient placed in chamber, communications checked. Mary Littlejohn RN/Tamia Snow RN administered the treatment and monitored the patient. HYPERBARIC TREATMENT: Number-3 Planned number of treatments-20/10 Compression Rate: 1.5psi/min Decompression Rate: 2.0 psi/min RTOY-1.3 Start Compression Reach Treatment Pressure - TROY Air Break Start Air Break Completed Start Decompression Treatment Completed 0715 N/A N/A N/A 0753 0758 Sechrist Chamber # 2 Clinical Practice Guideline for Hyperbaric Oxygen Therapy Prevent and manage for potential problems related to 1.Barotrauma, 2.oxygen toxicity, and 3.Pneumothorax. 4. Situational Problems Assessed: ALL (Barotrauma, Oxygen Toxicity, Pneumothorax, Situational) Problems Present: Barotrauma (Barotrauma, Oxygen Toxicity, Pneumothorax, Situational) It's not really painful. I just can't clear them and it's making me angry. Patient stated. Patient complained of pressure in both ears (right more than left) and inability to equalize pressure when1.25-1.3 TROY reached. Interventions: Per Clinical Practice Guidelines for Hyperbaric Oxygen Therapy through [facility]. Made 4-5 slow attempts to re-pressurize without success. Finally decompressed patient and removed from chamber after [address] Mcdonald present and recommended patient use Afrin nasal spray, 2 sprays, twice per day. Also recommended patient continue with ear wax softening drops. Patient verbalized understanding of recommendations. Ears irrigated with ear wash system.Patient assessed and foundappropriate to leave the Hyperbaric area at the conclusion of today???s session. Continue HBOT as planned. Next treatment scheduled for 03/24/14. Will assess ears prior to treatment tomorrow. May require further removal of ear wax to visualize TM's well. documented in this encounter Plan of Treatment Not on file documented as of this encounter Visit Diagnoses Diagnosis Radiation injury, sequela documented in this encounter Care Teams Distribution Clerk Relationship Specialty Start Date End Date Marck Brody DO [address] [place] [address] PCP - General 02/08/10 10/12/21 documented as of this encounter
--- OUTSIDE RECORDS SUMMARY | 2023-12-08 20:07 | XMS_ITS | Encounter Summary ---
Author Organization [facility] [place] [address] Care Team Providers Care Office Chair Assembler Name Role Phone Marck Brody DO Primary Care Provider [phone] Reason for Visit * Reason Comments On Treatment Visit HBOT#20 Encounter Details Date Type Department Care Team (Latest Contact Info) Description 04/17/2014 7:00 AM EST - 04/17/2014 11:59 PM EST Hospital Encounter [facility] [place] [place] [phone] Radiation injury, sequela Social History Tobacco Use Types Packs/Day Years Used Date Smoking Tobacco: Never Smokeless Tobacco: Never Sex and Gender Information Value Date Recorded Sex Assigned at Not on file Gender Identity Not on file Sexual Orientation Not on file documented as of this encounter Last Filed Vital Signs Vital Sign Reading Time Taken Comments Blood Pressure 116/70 04/17/2014 9:15 AM EST Pulse 65 04/17/2014 9:15 AM EST Temperature 36.8 ??C (98.2 ??F) 04/17/2014 7:15 AM ES T Respiratory Rate 18 04/17/2014 7:15 AM EST Oxygen Saturation - - Inhaled [...] Progress Notes * Mary Littlejohn RN - 04/17/2014 8:47 AM EST Patient Name: Theresa Hollis Patient Age: 43 y.o. Birthdate: 1970 Admit date: 04/17/2014 Attending Physician: No att. providers found INTERVAL HISTORY: Patient denies any discomfort, changes, issues, complaints. Ear Pain: No pain. Continues to experience her usual tinnitus especially in the afternoons. Pain Level: __0___ (0-10 scale) * If greater than 5, document interventions. Education: Reinforced optimal situation will be for Theresa to resume HBOT the day after her procedure. Theresa Hollis received hyperbaric oxygen treatment today [...] treatment and monitored the patient. HYPERBARIC TREATMENT: Number-20 Planned number of treatments-20 prior to dental procedure, 10 immediately following dental procedure. Compression Rate: 1.5psi/min Decompression Rate: 2.0 psi/min TROY-2.4 Start Compression Reach Treatment Pressure - TROY Air Break Start Air Break Completed Start Decompression Treatment Completed 0720 0743 0828 0838 0900 0912 Sechrist Chamber # 2 Clinical Practice Guideline for Hyperbaric Oxygen Therapy Prevent and manage for potential problems related to 1.Barotrauma, 2.oxygen toxicity, and 3.Pneumothorax. 4. Situational Problems Assessed: ALL (Barotrauma, Oxygen Toxicity, Pneumothorax, Situational) Problems Present: None, (Barotrauma, Oxygen Toxicity, Pneumothorax, Situational) No issues or complaints during or after treatment. Alert and oriented. Denies discomfort, unusual sensation, issues. Interventions: Per Clinical Practice Guidelines for Hyperbaric Oxygen Therapy through [facility]. No issues or complaints during or after treatment. Patient assessed and found appropriate to leave the Hyperbaric area at the conclusion of today???s session. Theresa has completed her initial 20 treatments and is scheduled for her dental procedure on 05/06/14. She plans to resume HBOT on 05/07/14. documented in this encounter Plan of Treatment Not on file documented as of this encounter Visit Diagnoses Diagnosis Radiation injury, sequela documented in this encounter Care Teams Office Chair Assembler Relationship Specialty Start Date End Date Marck Brody DO [address] [place] [address] 1 [place] [address] PCP - General 02/08/10 10/12/21 documented as of this encounter
--- OUTSIDE RECORDS SUMMARY | 2023-12-08 20:07 | XMS_ITS | Encounter Summary ---
Author Organization [facility] [place] [address] Care Team Providers Care Campground Manager Name Role Phone Marck Brody DO Primary Care Provider [phone] Reason for Visit * Reason Comments On Treatment Visit HBOT #10 Encounter Details Date Type Department Care Team (Latest Contact Info) Description 04/02/2014 7:00 AM EST - 04/02/2014 11:59 PM EST Hospital Encounter [facility] [place] [phone] Radiation injury, sequela Social History Tobacco Use Types Packs/Day Years Used Date Smoking Tobacco: Never Smokeless Tobacco: Never Sex and Gender Information Value Date Recorded Sex Assigned at Not on file Gender Identity Not on file Sexual Orientation Not on file documented as of this encounter Last Filed Vital Signs Vital Sign Reading Time Taken Comments Blood Pressure 88/57 04/02/2014 9:10 AM EST Pulse 61 04/02/2014 9:10 AM EST Temperature 36.8 ??C (98.2 ??F) 04/02/2014 7:15 AM ES T Respiratory Rate - [...] Progress Notes * Tamia Snow RN - 04/02/2014 8:57 AM EST Patient Name: Theresa Hollis Patient Age: 43 y.o. Birthdate: 1970 Admit date: 04/02/2014 Attending Physician: No att. providers found INTERVAL [...] treatment and monitored the patient. HYPERBARIC TREATMENT: Number-10 Planned number of treatments-20 prior to dental procedure and 10 immediately after procedure. Compression Rate: 1.5psi/min Decompression Rate: 2.0 psi/min TROY-2.4 Start Compression Reach Treatment Pressure - 2.4 TROY Air Break Start Air Break Completed Start Decompression Treatment Completed 0725 0741 0810 0820 0855 0906 Sechrist Chamber # 2 Clinical Practice Guideline for Hyperbaric Oxygen Therapy Prevent and manage for potential problems related to 1.Barotrauma, 2.oxygen toxicity, and 3.Pneumothorax. 4. Situational Problems Assessed: ALL (Barotrauma, Oxygen Toxicity, Pneumothorax, Situational) Problems Present: None, (Barotrauma, Oxygen Toxicity, Pneumothorax, Situational) No issues or complaints during or after treatment. Interventions: Per Clinical Practice Guidelines for Hyperbaric Oxygen Therapy through [facility]. No issues or complaints during or after treatment. Patient assessed and found appropriate to leave the Hyperbaric area at the conclusion of today???s session. Continue HBOT as planned. Next treatment scheduled for tomorrow, . documented in this encounter Plan of Treatment Not on file documented as of this encounter Visit Diagnoses Diagnosis Radiation injury, sequela documented in this encounter Care Teams Campground Manager Relationship Specialty Start Date End Date Marck Brody DO [address] [place] [address] PCP - General 02/08/10 10/12/21 documented as of this encounter
--- OUTSIDE RECORDS SUMMARY | 2023-12-08 20:07 | XMS_ITS | Encounter Summary ---
Author Organization [facility] Address [facility] [place] [address] Care Team Providers Care Volumetric Weigher Name Role Phone Marck Brody DO Primary Care Provider Encounter Details Date Type Department Care Team (Late st Contact Info) Description 05/06/2014 1:26 PM EST - 05/06/2014 2:54 PM EST Surgery [place] [id number] Alfred Vital MD [facility] [place] [address] SURGICAL EXTRACTIONS REQUIRING ELEVATION OF MUCOPERIOSTEAL FLAP AND REMOVAL OF BONE OR SECTION OF TOOTH (WRVU 1.09) Social History Tobacco Use Types Packs/Day Years [...] Sign Reading Time Taken Comments Blood Pressure 127/70 05/06/2014 11:56 AM EST Pulse 74 05/06/2014 11:56 AM EST Temperature 36.4 ??C (97.5 ??F) 05/06/2014 11:[address] Respiratory Rate 16 05/06/2014 11:56 AM EST Oxygen Saturation 99% 05/06/2014 11:56 AM EST Inhaled Oxygen Concentration - - Weight 47.6 kg (104 lb 15 oz) 05/06/2014 11:54 A M EST Height - - Body Mass Index 19.07 01/19/2014 1:37 PM EST documented in this encounter Discharge Instructions * Discharge Instructions* Aura Oh RN - 05/06/2014 5:20 PM EST On the Day of Surgery: DO NOT [...] Pain relievers such as ibuprofen or Tylenol may be taken - 2 tablets every 3 to 4 hours as needed. If a narcotic is prescribed, take this only as needed. Narcotic drugs may cause nausea. DO NOT take them on an empty stomach, and DO NOT drive or consume alcohol while on narcotics. If prescribed Vicodin, usual dosage is 1- 2 tablets every 4-6 hours as needed for pain. Total daily dosage SHOULD NOT EXCEED 8 tablets. Other discomforts you may experience include: slight [...] tea bag in place of the gauze foranother 20 minutes. The tea bag will help to form blood clots and stop the bleeding. If bleeding continues, call your doctor. Swelling: To reduce immediate swelling after your procedure, apply an ice pack, with pressure, to the face over the area of the procedure. Ice should be applied for 15-20 minutes at a time, for the first 24 hours. After 24 hours, a moist warm compress may be helpful. Most swelling will occur -81 hours following the procedure. Mouth Rinse: Vigorous [...] you feel like your normal self again. The Oral Surgery staff can be reached during office hours at [phone]. If you have questions atnight or on weekends, Dr. Vital can be reached at [phone]. Take antibiotics as ordered Ice to left side of face Use irrigating syringe after one week.POST ANESTHESIA INSTRUCTIONS Go home, rest, use caution [...] which usually goes away in 12-24 hours. documented in this encounter Medications at Time [...] 10/13/2013 10/29/2014 documented as of this encounter H&P Notes * Alfred Vital MD - 05/06/2014 1:52 PM EST Patient Name: Theresa Henley Patient Age: 43 y.o. Birthdate: 1970 Admit date: 05/06/2014 Attending Physician: Alfred Vital MD The patient was seen and examined in the preoperative unit today. I have reviewed and agree with the clinical history, physical exam findings, impressions and plans as described in the original History and Physical Exam note. No new clinically significant changes to patient's health are noted. Theresa is prepared to proceed with the planned surgical intervention as reviewed in detail. documented in this encounter Miscellaneous Notes * Op Note - Alfred Vital MD - 05/06/2014 3:49 PM EST [facility] [place] Patient Name: Theresa Henley : [id number] MR#: [id number] Case Date: 05/06/2014 Surgeon: Surgeon(s) and Role: * Alfred Vital MD - Primary Preoperative diagnosis: periodontal disease. history of tongue cancer Postoperative diagnosis: periodontal disease. history of tongue cancer Procedure(s): SURGICAL EXTRACTIONS REQUIRING ELEVATION OF MUCOPERIOSTEAL FLAP AND REMOVAL OF BONE OR SECTION OF TOOTH BIOPSY BONE, TROCAR OR NEEDLE, SUPERFICIAL, MANDIBLE Anesthesia: General Estimated Blood Loss: * No values recorded between 05/06/2014 2:48 PM and 05/06/2014 3:28 PM * Specimens removed during surgery: bone specimen Drains: 0 Surgical Closure: Primary Closure - closure of ALL tissue levels during the original surgery regardless of wires, wickes, drains, or other devices extruding through the incision Disposition: awakened from anesthesia, extubated and taken to the recovery room in a stable condition, having suffered no apparent untoward event. Condition: doing well without problems (Please see the Surgical Encounter Summary for any Implant and Specimen details pertinent to this patient.) HPI/Surgical Indications: ORN with loose teeth Procedure Description: Theresa was brought to the operating room, placed under adequate general anesthesia via oral endotracheal tube. She was a moderately difficult intubation given her degree of trismus as well as fibrosis in the cervical region. Once intubated, the oral cavity was carefully suctioned and irrigated and a throat pack was placed. The dentition was examined. The only tooth which was remarkably mobile was the lower left first molar, tooth number 19. It was extracted with copious associated debridement around its buccal, lingual and apical areas. Moderate oozing was noted at the depth of the apical area. Significant necrotic bony tissue was curetted. The area of bone demineralization extended to the distal aspect of the second premolar root, at least 50% of which was exposed. The tooth, however, was firm. The left second molar, tooth number 18, had significant furcation involvement when probed with a periodontal instrument. It was therefore sectioned and atraumatically extracted. Once extracted, necrotic bone was also identified adjacent to this tooth, and the bone in this area was submitted to Pathology for microscopic evaluation. Once careful curettage was performed, copious irrigation followed, and the soft tissue was carefully coapted with interrupted 3-0 chromic suture. A small degree of the lateral bony wall was removed in order to facilitate some mobility of otherwise very fibrotic and densely scarred buccal mucosal and alveolar tissues. The oral cavity was then carefully suctioned. The remainder of the teeth were examined and the throat pack was removed. Patient was awakened, extubated, and brought to the recovery room in satisfactory condition having tolerated the procedure well, with a minimum of blood loss. Of note is that the patient indicated preoperatively that she had some unusual sensations in the left jaw radiating toward the chin with a feeling of tightness. Attestation: Case Date: 05/06/2014 I performed this procedure without the involvement of a resident. Alfred Vital MD 05/06/2014 documented in this encounter Plan of Treatment Not on file documented as of this encounter Procedures Procedure Name Priority Date/Time Associated Diagnosis Comments SURGICAL PATHOLOGY REPORT Routine 05/06/2014 3:40 PM EST SPECIMEN TO PATHOLOGY Routine 05/06/2014 3:25 PM EST SPECIMEN TO PATHOLOGY Routine 05/06/2014 3:18 PM EST BIOPSY BONE, TROCAR OR NEEDLE, SUPERFICIAL, MANDIBLE (WRVU 1.65) 05/06/2014 2:08 PM EST periodontal disease. history of tongue cancer SURGICAL EXTRACTIONS REQUIRING ELEVATION OF MUCOPERIOSTEAL FLAP AND REMOVAL OF BONE OR SECTION OF TOOTH (WRVU 1.09) 05/06/2014 2:08 PM EST periodontal disease. history of tongue cancer documented in this encounter Results * Surgical Pathology Report (05/06/2014 3:40 PM EST) Final Diagnosis ? [facility] ? Provider: ?? ALFRED VITAL ?Pt. Name: ?? THERESA HENLEY ? Acc #: ?[id number] ?Pt. ? Col Date: ?? 05/06/2014 ? /Sex: ?1970,(43 years),Female ? Rec Date: ?? 05/06/2014 ? LOC: ?SDP ? SURGICAL PATHOLOGY ? ---Pathologic Diagnosis--- ? A - Extraction site, tooth #19, curetting: ? Lamellar bone and soft tissue with chronic inflammation and granulation ? tissue; negative for malignancy. ? B - Bone between the roots of tooth 18, curetting: ? Portion of tooth, negative for malignancy ? 05/08/14 ? VAM ? 05/08/14 Verified by: ? Devonte Pereira MD ? Pathologist ? (Electronic Signature) ? The attending pathologist whose signature appears on this report has ? reviewed all diagnostic slides and has edited the gross and/or ? microscopic portion of the report in rendering the final pathologic ? diagnosis. ? ---Gross Description--- ? A - Labeled/Fixative : Bone and tissue extraction site to the #19 an area of ? radiation, fresh. ? Quantity/Size: Fragments, aggregating 1.3 x 0.8 x 0.2 cm. ? Tissue Description: Firm, bony, christian-pink tissues. ? Sections/Process ing: Totally submitted. ? Blocks submitted for decalcification: ??(A1). (T1) ? B - Labeled/Fixative : Bone between the roots of tooth 18, fixative fresh. ? Quantity/Size: Single, 0.8 x 0.6 x 0.3 cm. ? Tissue Description: Firm, bony, christian-white tissue. ? Sections/Process ing: Totally submitted. ? Blocks submitted for decalcification: ??(B1). (T1) ??pps ? ---Clinical Information--- ? Specimen Submitted: ? A - Bone and tissue extraction site tooth #19 in area of radiation ? B - Bone between the roots of tooth 18 ? Clinical History: ? _ 05/08/2014 3:19 PM EST [facility] BONE STRUCTURE / Unknown 05/06/2014 3:40 PM EST 05/06/2014 3:40 PM EST BONE STRUCTURE / Unknown 05/06/2014 3:40 PM EST 05/06/2014 3:40 PM EST Alfred Vital MD PATHOLOGY/CYTOLOGY O RDERABLES Performing Organization Address City/State/[facility] Co de Phone Number [facility] [place] [address] * Specimen to Pathology (surgical or derm) (05/06/2014 3:25 PM EST) AP Specimen 05/06/2014 3:25 PM EST 05/06/2014 3:25 PM EST Narrative KADE MANE - 05/06/2014 3:25 PM EST Specimen requisition ordered. ??Separate Pathology report to follow Alfred Vital MD PATHOLOGY/CYTOLOGY O RDEMMANUEL Performing Organization Address [facility] Co de Phone Number KADE MANE * Specimen to Pathology (surgical or derm) (05/06/2014 3:18 PM EST) AP Specimen 05/06/2014 3:18 PM EST 05/06/2014 3:18 PM EST Narrative KADE MANE - 05/06/2014 3:18 PM EST Specimen requisition ordered. ??Separate Pathology report to follow Alfred Vital MD PATHOLOGY/CYTOLOGY O RDEMMANUEL Performing Organization Address [facility] Co de Phone Number KADE MANE documented in this encounter Visit Diagnoses Not on filedocumented in this encounter Administered Medications Inactive Administered Medications - up to 3 most recent administrations Medication Order MAR Action Action Date Dose Rate Site hydrocortisone 1 % ointment ONCE PRN, Starting on Sun05/06/14 at 1534, Until Sun05/06/14 at 2027, Intra-Operative (Intra-Procedure) Given 05/06/2014 3:34 PM EST 1 Tube lidocaine-EPINEPHrine 1 %-1:200,000 injection ONCE PRN, Starting on Sun05/06/14 at 0100, Until Sun05/06/14 at 2027, Intra-Operative (Intra-Procedure), Routine Given 05/06/2014 1:00 AM EST 1 mL documented in this encounter Active and Recently Administered Medications Times are shown in EST. PRN Medication Order 05/04/2014 05/05/2014 05/06/2014 hydrocortisone 1 % ointment (CANCELED) ONCE PRN, Starting on Sun05/06/14 at 1534, Until Sun05/06/14 at 2027, Intra-Operative (Intra-Procedure) 1534 (Given - Provid er: Alfred Vital MD - Comment: small amt on the lips) lidocaine-EPINEPHrine 1 %-1:200,000 injection (CANCELED) ONCE PRN, Starting on 2/18/15 at 0100, Until 05/06/14 at 2028, Intra-Operative (Intra-Procedure), Routine 0100 (Given - Provid er: Alfred Vital MD) documented in this encounter Care Teams Volumetric Weigher Relationship Specialty Start Date End Date Marck Brody DO [address] [place] [address] PCP - General 02/08/10 10/12/21 documented as of this encounter
--- OUTSIDE RECORDS SUMMARY | 2023-12-08 20:07 | XMS_ITS | Encounter Summary ---
Author Organization [facility] [place] [address] Care Team Providers Care Domain Architect Name Role Phone Marck Brody DO Primary Care Provider Reason for Visit * Reason Comments On Treatment Visit HBOT #4 Encounter Details Date Type Department Care Team (Latest Contact Info) Description 03/25/2014 6:53 AM EST - 03/25/2014 11:59 PM EST Hospital Encounter [facility] [place] [place] [phone] Radiation injury, sequela Social History Tobacco Use Types Packs/Day Years Used Date Smoking Tobacco: Never Smokeless Tobacco: Never Sex and Gender Information Value Date Recorded Sex Assigned at Not on file Gender Identity Not on file Sexual Orientation Not on file documented as of this encounter Last Filed Vital Signs Vital Sign Reading Time Taken Comments Blood Pressure 108/68 03/25/2014 9:04 AM EST Pulse 61 03/25/2014 9:04 AM EST Temperature 36.8 ??C (98.2 ??F) 03/25/2014 7:10 AM ES T Respiratory Rate 16 03/25/2014 9:04 AM EST Oxygen Saturation - - Inhaled [...] times daily. 100 mL 0 05/06/2014 05/29/2014 oxymetazoline (AFRIN) 0.05 % Aerosol, SprayIndications:nasal congestion 2 sprays by Nasal route 2 times daily. Indications: Nasal Congestion 03/23/2014 03/27/2014 carbamide peroxide (DEBROX) 6.5 % DropsIndications:impact ed [...] encounter Progress Notes * Reg Horta - 03/25/2014 9:12 AM EST Patient Name: Theresa Hollis Patient Age: 43 y.o. Birthdate: 1970 Admit date: 03/25/2014 Attending Physician: No att. providers found INTERVAL HISTORY: Patient denies any discomfort, changes, issues, complaints prior to treatment. By history, the patient has experienced difficulty clearing ears during previous treatments, patient will be watched closely for same. Pain Level: 0 (0-10 scale) * If greater than 5, document interventions. Education: Clearing ears, prior to and during treatment. Theresa Hollis received hyperbaric oxygen treatment today for Radiation Injury - Sequelae. 100% cotton clothing in place. Patient checked for non-approved chamber items. Tympanic membranes checked. No redness or perforation noted. Patient assessed and met criteria to proceed with hyperbaric treatment. Safety checklist completed with patient. Grounding strap applied and grounding verified, patient placed in chamber, communications checked. Reg Horta RP/Tamia Snow RN administered the treatment and monitored the patient. HYPERBARIC TREATMENT: Number-4 Planned number of treatments-20 then an additional 10 treatments after dental procedure. (Lio Protocol) Compression Rate: 1.5psi/min Decompression Rate: 2.0 psi/min TROY-2.0 Start Compression Reach Treatment Pressure - TROY Air Break Start Air Break Completed Start Decompression Treatment Completed 0722 0750 0807 0817 0852 0901 Sechrist Chamber # 2 Clinical Practice Guideline for Hyperbaric Oxygen Therapy Prevent and manage for potential problems related to 1.Barotrauma, 2.oxygen toxicity, and 3.Pneumothorax. 4. Situational Problems Assessed: ALL (Barotrauma, Oxygen Toxicity, Pneumothorax, Situational) Problems Present: None, (Barotrauma, Oxygen Toxicity, Pneumothorax, Situational) No issues or complaints during or after treatment. Interventions: Per Clinical Practice Guidelines for Hyperbaric Oxygen Therapy through [facility] Resource [place]. Patient experienced difficulty clearing ears multiple times during descent. Pressure backed off until patient able to successfully clear ears. Maximum TROY obtained today was 2.0. Patient assessed and found appropriate to leave the Hyperbaric area at the conclusion of today???s session. Continue HBOT as planned. Next treatment scheduled for March 26, 2014. documented in this encounter Plan of Treatment Not on file documented as of this encounter Visit Diagnoses Diagnosis Radiation injury, sequela documented in this encounter Care Teams Domain Architect Relationship Specialty Start Date End Date Ronn, Marck, DO [address] [place] [address] PCP - General 02/08/10 10/12/21 documented as of this encounter
--- OUTSIDE RECORDS SUMMARY | 2023-12-08 20:07 | XMS_ITS | Encounter Summary ---
Author Organization [facility] [address] Care Team Providers Care Molecular Biologist Name Role Phone Marck Brody DO Primary Care Provider [phone] Encounter Details Date Type Department Care Team (Late st Contact Info) Description 05/06/2014 2:04 PM EST Anesthesia Event [place] [phone] Ivette Hicks MD [facility] [place] [address] Anesthesia Record Procedure Summary Procedure Name Responsible Anesthesiologist Anesthesia Start Time Anesthesia Stop Time SURGICAL EXTRACTIONS REQUIRING ELEVATION OF MUCOPERIOSTEAL FLAP AND REMOVAL OF BONE OR SECTION OF TOOTH (WRVU 1.09) Ivette Hicks MD 05/06/14 1404 05/06/14 1550 Events Date Time Event Comment 05/06/2014 1239 1404 Start 1410 AN Verify 1410 An Start Data 1416 An Induction 1437 An Intubation 1448 Anesthesia Ready 1449 Procedure Start 1520 Quick Note MRR , suctioned , spont. resp retu 1544 Extubation/LMA Out 1544 an stop data 1550 Stop Meds Name Total Midazolam 1 mg fentaNYL 75 mcg IV Lidocaine 20 mg Propofol 330 mg Rocuronium 30 mg Ondansetron 4 mg Dexamethasone 4 mg Neostigmine 2 mg Glycopyrrolate 0.4 mg Ampicillin-Sulbactam 1.5 g Lactated Ringers 700 mL * Agents Name O2 Air Sevoflurane (et) * Blood No blood administrations on file. Lines, Drains, and Airways Type Details Placement Removal Incision 05/06/14; other (see comments) (Oral/Jaw/teeth); 11/14/21 (LDA cleanup utility RA#[id number]); 1715 (LDA cleanup utility RA#[id number]) 05/06/14 0000 by Caron Retana RN 11/14/21 1715 by Vera Archer (RETIRED) Peripheral IV Line - Single Lumen 05/06/14; 1217; metacarpal vein left (top of hand); [id number] catheter system; 20 gauge, 1 in length; intradermal injection, tolerated well, age-appropriate response, appears comfortable; 05/06/14; 1727 05/06/14 1217 by Amy Sahu RN 05/06/14 1727 by Aura Oh RN ETT Mask Ventilation: Ea sy (1); ETT Type: Cuffed, ANAMARIA; ETT Size: 6 mm; Mac Blade: 3; Exchange: Bougie; Notes: Asleep, Pre-O2, Cricoid Pressure; Attempts: 1; Laryngoscopy Grade: 4; ETT Placement Verified By: Auscultation, Capnometry, Visual; Inserted by: Kutr; Removal Date: 05/06/14; Removal Time: 1544 05/06/14 1444 by 05/06/14 1544 by Armando Sanchez CRNA documented in this encounter Social History Tobacco [...] OR Notes * Anesthesia Postprocedure Evaluation - Ivette Hicks MD - 05/06/2014 5:00 PM EST Patient: Theresa Hollis Procedure(s) Performed: Procedure(s): SURGICAL EXTRACTIONS REQUIRING ELEVATION OF MUCOPERIOSTEAL FLAP AND REMOVAL OF BONE OR SECTION OF TOOTH BIOPSY BONE, TROCAR OR NEEDLE, SUPERFICIAL, MANDIBLE Actual Anesthetic: general Patient location: PACU Post-op pain: Adequate analgesia Post-op nausea: no nausea or vomiting Last Vitals: Filed Vitals: 05/06/14 1554 BP: 111/64 Pulse: 67 Temp: 36.8 ??C (98.2 ??F) Resp: 16 Post-op cardiovascular and respiratory status: is stable Level of consciousness: awake, alert and oriented Complications: no apparent complications and tolerated the procedure well Fluid Status: normal Difficult airway explained to patient. Need to make future providers aware of difficult airway discussed in detail. She understands and appreciates our care and explanation. * Anesthesia Preprocedure Evaluation - Ivette Hicks MD - 05/05/2014 3:58 PM EST Pre-Anesthesia Evaluation for: Theresa Hollis a 43 y.o. female. Procedure(s): SURGICAL EXTRACTIONS REQUIRING ELEVATION OF MUCOPERIOSTEAL FLAP AND REMOVAL OF BONE OR SECTION OF TOOTH Patient Active Problem List Diagnosis ??? Radiation injury Has dry mouth/xerostomia, retraction of gums ??? 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 History of tongue cancer ??? Hypothyroidism (acquired) [id number] in 06/25. Started on synthroid 25mcg po [...] tube, severe oral pain; excellent functional recovery Past Medical History Diagnosis Date ??? Cancer of head, face, and neck ??? Hypothyroidism Past Surgical History Procedure Laterality Date ??? Glossectomy Right partial ??? Lymphadenectomy SND 1-5 ??? Skin graft History Substance Use Topics ??? Smoking status: Never Smoker ??? Smokeless tobacco: Never Used ??? Alcohol Use: Not on file History Drug Use Not on file No Known Allergies Medications: MAR and/or home medications have been reviewed. Physical Exam: There were no vitals filed for this visit. There is no weight on file to calculate BMI. Airway Assessment: Mallampati: II TM distance: >3 FB Neck ROM: limited 2 fingerbredth mouth opening, some limited extension d/t radiation changes Cardiovascular Assessment: Pulmonary Assessment: Dental Assessment: - normal exam Misc Assessment: Patient is wearing No contact(s). IV access: Peripheral line Anesthesia Plan: ASA 2 general, with a(n) intravenous induction Hx tongue CA s/p Glossectomy and XRT with radiation injury Hypothyroidism, on replacement, gets studies checked regularly. Plan GAET, oral ANAMARIA tube, glidescope Region - Other Informed Consent: Anesthetic plan and risks discussed with patient, spouse and father. Misc. Assessment: documented in this encounter Plan of Treatment Not on file documented as of this encounter Visit Diagnoses Not on filedocumented in this encounter Administered Medications Inactive Administered Medications - up to 3 most recent administrations Medication Order MAR Action Action Date Dose Rate Site ampicillin-sulbactam (UNASYN) injection PRN, Starting on Sun05/06/14 at 1439, Until Sun05/06/14 at 1544, Anesthesia Intra-op, Routine Given 05/06/2014 2:39 PM EST 1.5 g dexamethasone (DECADRON) injection PRN, Starting on Sun05/06/14 at 1435, Until Sun05/06/14 at 1544, Anesthesia Intra-op, Routine Given 05/06/2014 2:35 PM EST 4 mg fentaNYL 50mcg/mL injection PRN, Starting on Sun05/06/14 at 1410, Until Sun05/06/14 at 1544, Pain, Anesthesia Intra-op, Routine Given 05/06/2014 3:10 PM EST 25 mcg Given 05/06/2014 2:10 PM EST 50 mcg glycopyrrolate (ROBINUL) injection PRN, Starting on Sun05/06/14 at 1519, Until Sun05/06/14 at 1544, Anesthesia Intra-op, Routine Given 05/06/2014 3:19 PM EST 0.4 mg lactated ringers infusion CONTINUOUS PRN, Starting on Sun05/06/14 at 1404, Until Sun05/06/14 at 1544, Anesthesia Intra-op New Bag 05/06/2014 2:04 PM EST lidocaine (PF) (XYLOCAINE) 100 mg/5 mL (2 %) injection PRN, Starting on Sun05/06/14 at 1410, Until Sun05/06/14 at 1544, Anesthesia Intra-op, Routine Given 05/06/2014 2:10 PM EST 20 mg midazolam (PF) (VERSED) 1 mg/mL injection PRN, Starting on Sun05/06/14 at 1405, Until Sun05/06/14 at 1544, Sleep, Anesthesia Intra-op, Routine Given 05/06/2014 2:05 PM EST 1 mg neostigmine (PROSTIGMINE) injection PRN, Starting on Sun05/06/14 at 1519, Until Sun05/06/14 at 1544, Anesthesia Intra-op, Routine Given 05/06/2014 3:19 PM EST 2 mg ondansetron (ZOFRAN) injection PRN, Starting on Sun05/06/14 at 1453, Until Sun05/06/14 at 1544, Nausea, Anesthesia Intra-op, Routine Given 05/06/2014 2:53 PM EST 4 mg propofol (DIPRIVAN) 10 mg/mL bolus injection (Anesthesia) PRN, Starting on Sun05/06/14 at 1415, Until Sun05/06/14 at 1544, Anesthesia Intra-op Given 05/06/2014 3:20 PM EST 40 mg Given 05/06/2014 3:05 PM EST 20 mg Given 05/06/2014 2:30 PM EST 40 mg rocuronium (ZEMURON) injection PRN, Starting on Sun05/06/14 at 1415, Until Sun05/06/14 at 1544, Anesthesia Intra-op, Routine Given 05/06/2014 2:15 PM EST 30 mg documented in this encounter Care Teams Molecular Biologist Relationship Specialty Start Date End Date Marck Brody DO [address] [place] [address] PCP - General 02/08/10 10/12/21 documented as of this encounter
--- OUTSIDE RECORDS SUMMARY | 2023-12-08 20:07 | XMS_ITS | Encounter Summary ---
Author Organization [facility] [place] [address] Care Team Providers Care Space Technologist Name Role Phone Marck Brody DO Primary Care Provider Reason for Visit * Reason Comments Head And Neck Cancer Encounter Details Date Type Department Care Team (Late st Contact Info) Description 01/19/2014 1:45 PM EST Follow-Up Hematology [place] [id number] Marck Sherman MD [address] [place] [address] [place] [address] History of tongue cancer; Tongue cancer; Hypothyroidism (acquired) Discharge Disposition: Home Social History Tobacco Use Types Packs/Day Years Used Date Smoking Tobacco: Never Smokeless Tobacco: Never Sex and Gender Information Value Date Recorded Sex Assigned at Not on file Gender Identity Not on file Sexual Orientation Not on file documented as of this encounter Last Filed Vital Signs Vital Sign Reading Time Taken Comments Blood Pressure 120/74 01/19/2014 1:37 PM EST Pulse 85 01/19/2014 1:37 PM EST Temperature 36.5 ??C (97.7 ??F) 01/19/2014 1:37 PM ES T Respiratory Rate 16 01/19/2014 1:37 PM EST Oxygen Saturation 100% 01/19/2014 1:37 PM EST Inhaled Oxygen Concentration - - Weight 50 kg (110 lb 3.7 oz) 01/19/2014 1:37 PM EST Height 158 cm (5' 2.21) 01/19/2014 1:37 PM EST Body Mass Index 20.03 01/19/2014 1:37 PM EST documented in this encounter Progress Notes * Marck Sherman MD - 01/19/2014 1:54 PM EST Head and Neck Cancer Medical Oncology Follow-Up Note Patient Active Problem List Diagnosis ??? 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 History of tongue cancer ??? Hypothyroidism (acquired) FSS=506 in 06/25. Started on synthroid 25mcg po [...] head/neck cancer. Interval History: Time from treatment: 7 years from completion of concurrent chemo/RT Pain: [...] bladder problems. 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 Extraction of this +/- another tooth under consideration. HBO consultation later today for Lio protocol pre/post extraction. No pain. Dental hygiene excellent. Medical issues: Got flu shot this fall. Sees primary care regularly. Mammogram today; no breast lumps noted. Remains on levothyroxine 88 mcg. Can 'feel' when dose is either too high or too low. Outpatient Prescriptions Marked as Taking for the 01/19/14 encounter (Follow-Up) with Marck Sherman MD Medication Sig Dispense Refill ??? UNABLE TO FIND 2 tablets daily. Med Name:taking a calcium chew 1000mg a day ??? cevimeline (EVOXAC) 30 mg capsule Take 1 capsule by mouth 3 times daily. 90 capsule 12 ??? levothyroxine (SYNTHROID) 88 mcg tablet Take 1 tablet by mouth daily. 30 tablet 12 Social History: reviewed, no changes from last visit. 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 Family History: reviewed; no new developments. Here with mother and father today. Review of Systems: Review of systems is negative for other PANTRY GOODS MAKER, bone, pulmonary, cardiac, GI, , extremity, neurologic, endocrine, skin, constitutional, emotional, or functional problems. Vitals 01/19/14 Weight - Scale 50 kg (110 lb 3.7 oz) Height 158 cm (5' 2.21) BSA (Calculated - sq m) 1.48 sq meters BMI (Calculated) 20.1 Temp 36.5 ??C (97.7 ??F) Temp Source Oral Heart Rate 85 Heart Rate Source NIBP Resp 16 BP 120/74 mmHg BP Location Left arm Patient Position Sitting SpO2 100 % Karnofsky Score 80 Exam: General appearance: NAD, thin/small framed. Speech quality remarkably good. Skin: clear Oral: S/p partial glossectomy. No tumor, no leukoplakia Dentition: Excellent hygiene. L mandibular molar #19 slightly loose, with gingival recession. No overtly exposed bone. Neck: Grade 1 L surgical bed fibrosis; no lymphedema Right: no adenopathy Left: no adenopathy Nose: clear Ear: Moderate cerumen R, scant L Peripheral nodes: nil Chest: clear Heart: RRR, normal tones Abdomen: benign, no HSM Extremities: normal, no clubbing or edema Neurologic: Cranial nerves: normal Reflexes: 2 + Laryngoscopy: [by Toño ALAMO earlier today] Recent Results (from the past 72 hour(s)) COMPREHENSIVE METABOLIC PANEL (NON-FASTING) Component Value Range Glucose Lvl 107 60 - 199 mg/dL BUN 7 (*) 8 - 18 mg/dL Creatinine 0.85 0.70 - 1.20 mg/dL Sodium 141 135 - 145 mmol/L Potassium 3.5 3.5 - 5.0 mmol/L Chloride 102 98 - 107 mmol/L CO2 27 22 - 31 mmol/L Anion Gap 12 5 - 15 mmol/L Calcium 9.2 8.5 - 10.5 mg/dL Total Protein 6.6 6.4 - 8.3 gm/dL Albumin 4.2 3.2 - 5.2 gm/dL AST 18 0 - 30 unit/L ALT 14 0 - 30 unit/L Alk Phos 49 40 - 104 unit/L Total Bilirubin 0.3 0.2 - 1.3 mg/dL Bili, Direct 0.1 0.0 - 0.3 mg/dL Estimated GFR >60 >=60 TSH Component Value Range TSH 4.88 (*) 0.27 - 4.20 mcIU/mL HEMOGRAM Component Value Range WBC 6.1 4.0 - 10.0 x10(3)/mcL RBC 3.78 (*) 3.93 - 5.22 x10(6)/mcL Hemoglobin 13.1 11.2 - 15.7 gm/dL Hematocrit 38.1 34.0 - 45.0 % MCV 100.8 (*) 79.0 - 94.0 fL MCH 34.7 (*) 26.6 - 32.2 pg MCHC 34.4 32.0 - 36.5 gm/dL Platelets 295 145 - 370 x10(3)/mcL RDWSD 45.3 35.0 - 46.0 fL RDWCV 12.4 10.9 - 14.4 % MPV 9.5 9.0 - 12.0 fL DIFFERENTIAL, AUTOMATED Component Value Range Neutrophils % 78.2 Neutr Abs (ANC) 4.79 1.50 - 6.30 x10(3)/mcL Lymphocytes % 15.2 Lymphocytes Abs 0.9 (*) 1.0 - 3.6 x10(3)/mcL Monocytes % 4.9 Monocyte Abs 0.3 0.2 - 1.0 x10(3)/mcL Eosinophils % 1.0 Eosinophils Abs 0.1 0.0 - 0.5 x10(3)/mcL Basophils % 0.7 Basophils Abs 0.0 0.0 - 0.2 x10(3)/mcL Immature Gran % 0.00 Josselyn Gran Abs 0.00 0.00 - 0.05 x10(3)/mcL Radiology: I personally reviewed images from today's CXR, and mammogram: final reports pending, butto my eyes there is no pathology. Impression and Plans: 1. Tongue cancer: clinically MALLY at 7 years. Excellent functional recovery; speech quality is amazingly good considering the amount of surgery + postop chemoRT. Unfortunately her dentition is suffering the long-term consequences of RT. Plan: Ongoing surveillance per [facility] Head/Neck standard plan. Followup in 1 year, coord with ENT. Recheck TSH at that visit. Emerging data in nonsmokers suggest that second primary cancer risk is not as high as we used to think, and therefore we can do without the yearly chest Xray. Dental Rx per dental and oromaxillofacial team. I favor extraction(s) as recommended, with HBO. We discussed alternative plan of martinez-extractions of all mandibular teeth, but I would worry both about jaw bone complications and the risk of decreased eating and speaking function. 2. Hypothyroidism (acquired): TSH a bit high. Gradual escalation of levothryox dose is common following RT. Plan: ?? New Rx for levothyoxine 100 mcg/day sent ?? Will arrange F/U visit with Kimberly Montano APRN at [facility] in ~2 months for TSH recheck. Marck Sherman MD, FACP tunnel man Hematology/Oncology Section [place] [phone] documented in this encounter Plan of Treatment Scheduled Orders Name Type Priority Associated Diagnoses Orde r Schedule TSH Lab Routine Hypothyroidism (acquired) Expected: 03/21/2014 (Approximate), Expires: 01/20/2015 documented as of this encounter Procedures Procedure Name Priority Date/Time Associated Diagnosis Comments HEMOGRAM Routine 01/19/2014 12:00 PM EST History of tongue cancer Tongue cancer DIFFERENTIAL, AUTOMATED Routine 01/19/2014 12:00 PM EST History of tongue cancer Tongue cancer CBC (WITH DIFF) Routine 01/19/2014 12:00 PM EST History of tongue cancer Tongue cancer TSH Routine 01/19/2014 12:00 PM EST Hypothyroidism (acquired) History of tongue cancer Tongue cancer COMPREHENSIVE METABOLIC PANEL Routine 01/19/2014 12:00 PM EST History of tongue cancer Tongue cancer documented in this encounter Results * TSH (03/23/2014 8:40 AM EST) Thyroid Stimulating Hormone 3.00 0.27 - 4.20 mcIU/mL CERNER MILLENNIUM Blood specimen (specimen) 03/23/2014 8:40 AM EST 03/23/2014 8:44 AM EST Narrative Resulting Agency Comment Spec In Lab Marck Sherman MD CHEMISTRY ORDERABLES CERNER MILLENNIUM * (ABNORMAL) Differential, Automated (01/19/2014 12:00 PM EST) Neutrophil % 78.2 % CERNER MILLENNIUM Neutrophil Absolute 4.79 1.50 - 6.30 x10(3)/mc L CERNER MILLENNIUM Lymph % 15.2 % CERNER MILLENNIUM Lymphocytes Abs 0.9(L) 1.0 - 3.6 x10(3)/mc L CERNER MILLENNIUM Monocyte % 4.9 % CERNER MILLENNIUM Monocyte Abs 0.3 0.2 - 1.0 x10(3)/mc L CERNER MILLENNIUM Eos % 1.0 % CERNER MILLENNIUM Eosinophils Abs 0.1 0.0 - 0.5 x10(3)/mc L CERNER MILLENNIUM Basophil % 0.7 % CERNER MILLENNIUM Baso Absolute 0.0 0.0 - 0.2 x10(3)/mc L CERNER MILLENNIUM Immature Gran % 0.00 % CERN ER MILLENNIUM Comment: Immature granulocytes(IG's)percentage and absolute count will include metamyelocytes, myelocytes, and promyelocytes. Blood smears from CBCs yielding IG's will be scanned manually for concordance. If this scan disagrees with the automated IG or if promyelocytes are noted, a manual differential will be performed. Immature Gran Absolute 0.00 0.00 - 0.05 x10(3)/mc L CERNER MILLENNIUM Blood specimen (specimen) 01/19/2014 12:00 PM EST 01/19/2014 12:11 PM EST Narrative Resulting Agency Comment Spec In Lab Marck Sherman MD HEMATOLOGY ORDERABLE S CERNER MILLENNIUM * (ABNORMAL) Hemogram (01/19/2014 12:00 PM EST) White Blood Cell 6.1 4.0 - 10.0 x10(3)/mc L CERNER MILLENNIUM Red Blood Cell 3.78(L) 3.93 - 5.22 x10(6)/mc L CERNER MILLENNIUM Hemoglobin 13.1 11.2 - 15.7 gm/dL CERNER MILLENNIUM Hematocrit 38.1 34.0 - 45.0 % CERNER MILLENNIUM Mean Cell Volume 100.8(H) 79.0 - 94.0 fL CERNER MILLENNIUM Mean Cell Hemoglobin 34.7(H) 26.6 - 32.2 pg CERNER MILLENNIUM Mean Cell Hemoglobin Concentration 34.4 32.0 - 36.5 gm/dL CERNER MILLENNIUM Platelet 295 145 - 370 x10(3)/mc L CERNER MILLENNIUM RDW Standard Deviation 45.3 35.0 - 46.0 fL CERNER MILLENNIUM RDW coefficient of variation 12.4 10.9 - 14.4 % CERNER MILLENNIUM Mean Platelet Volume 9.5 9.0 - 12.0 fL CERNER MILLENNIUM Blood specimen (specimen) 01/19/2014 12:00 PM EST 01/19/2014 12:11 PM EST Narrative Resulting Agency Comment Spec In Lab Marck Sherman MD HEMATOLOGY ORDERABLE S CERTAMIKO MILLENNIUM * (ABNORMAL) TSH (01/19/2014 12:00 PM EST) Thyroid Stimulating Hormone 4.88(H) 0.27 - 4.20 mcIU/mL CERNER MILLENNIUM Blood specimen (specimen) 01/19/2014 12:00 PM EST 01/19/2014 12:11 PM EST Narrative Resulting Agency Comment Spec In Lab Marck Sherman MD CHEMISTRY ORDERABLES CERNER MILLENNIUM * (ABNORMAL) Comprehensive metabolic panel (non-fasting) (01/19/2014 12:00 PM EST) Glucose 107 60 - 199 mg/dL CERNER MILLENNIUM Comment:Diabetes: >=200 mg/d L plus symptoms Blood Urea Nitrogen 7(L) 8 - 18 mg/dL CERNER MILLENNIUM Creatinine 0.85 0.70 - 1.20 mg/dL CERNER MILLENNIUM Comment: Please note that the pediatric reference intervals supplied above were not validated at [facility]. Results from pediatric patients should be interpreted in conjunction to the patient's age, height and muscle mass. Sodium 141 135 - 145 mmol/L CERNER MILLENNIUM Potassium 3.5 3.5 - 5.0 mmol/L CERNER MILLENNIUM Comment: Please note: ??Patients with WBC >100,000 may have falsely elevated Potassium levels. ??For accurate Potassium quantification in these patients send serum separator tube (gold top) for subsequent determinations. ??Contact the Clinical Chemistry Laboratory if there are any questions. Chloride 102 98 - 107 mmol/L CERNER MILLENNIUM Carbon Dioxide 27 22 - 31 mmol/L CERNER MILLENNIUM Anion Gap 12 5 - 15 mmol/L CERNER MILLENNIUM Calcium 9.2 8.5 - 10.5 mg/dL CERNER MILLENNIUM Protein, Total 6.6 6.4 - 8.3 gm/dL CERNER MILLENNIUM Albumin 4.2 3.2 - 5.2 gm/dL CERNER MILLENNIUM Aspartate Aminotransferase 18 0 - 30 unit/L CERNER MILLENNIUM Alanine Aminotransferase 14 0 - 30 unit/L CERNER MILLENNIUM Alkaline Phosphatase 49 40 - 104 unit/L CERNER MILLENNIUM Bilirubin, Total 0.3 0.2 - 1.3 mg/dL CERNER MILLENNIUM Bilirubin, [...] the following links into your internet browser. [email or web address] Blood specimen (specimen) 01/19/2014 12:00 PM EST 01/19/2014 12:11 PM EST Narrative Resulting Agency Comment Spec In Lab Marck Sherman MD CHEMISTRY ORDERABLES [facility] documented in this encounter Visit Diagnoses Diagnosis History of tongue cancer Personal history of malignant neoplasm of tongue Tongue cancer Malignant neoplasm of tongue, unspecified site Hypothyroidism (acquired) Unspecified hypothyroidism documented in this encounter Care Teams Space Technologist Relationship Specialty Start Date End Date Marck Brody DO [address] [place] [address] PCP - General 02/08/10 10/12/21 documented as of this encounter
--- OUTSIDE RECORDS SUMMARY | 2023-12-08 20:07 | XMS_ITS | Encounter Summary ---
Author Organization [facility] [place] [address] Care Team Providers Care Public Speaking Teacher Name Role Phone Marck Brody DO Primary Care Provider Reason for Visit * Reason Comments On Treatment Visit HBOT# 6 Encounter Details Date Type Department Care Team (Latest Contact Info) Description 03/27/2014 7:00 AM EST - 03/27/2014 11:59 PM EST Hospital Encounter [facility] [place] [phone] Radiation injury, sequela Social History Tobacco Use Types Packs/Day Years Used Date Smoking Tobacco: Never Smokeless Tobacco: Never Sex and Gender Information Value Date Recorded Sex Assigned at Not on file Gender Identity Not on file Sexual Orientation Not on file documented as of this encounter Last Filed Vital Signs Vital Sign Reading Time Taken Comments Blood Pressure 112/67 03/27/2014 9:05 AM EST Pulse 60 03/27/2014 9:05 AM EST Temperature 36.3 ??C (97.3 ??F) 03/27/2014 7:10 AM ES T Respiratory Rate 18 03/27/2014 7:10 AM EST Oxygen Saturation - - [...] Progress Notes * Mary Littlejohn RN - 03/27/2014 10:03 AM EST Patient Name: Theresa Hollis Patient Age: 43 y.o. Birthdate: 1970 Admit date: 03/27/2014 Attending Physician: No att. providers found INTERVAL HISTORY: Patient denies any discomfort, changes, issues, complaints. Headaches:Denies Cough: ...just my usual. Ear Pain:Denies Cold symptoms: Denies. I finished up the Afrin spray this morning. pt. stated. Education: None required today. Theresa Hollis received hyperbaric oxygen treatment [...] treatment and monitored the patient. HYPERBARIC TREATMENT: Number-6 Planned number of treatments-20/10 Compression Rate: 1.5psi/min Decompression Rate: 2.0 psi/min TROY-2.4 Start Compression Reach Treatment Pressure - TROY Air Break Start Air Break Completed Start Decompression Treatment Completed 0721 0739 0806 [id number] [phone] Sechrist Chamber # 2 Clinical Practice Guideline for Hyperbaric Oxygen Therapy Prevent and manage for potential problems related to 1.Barotrauma, 2.oxygen toxicity, and 3.Pneumothorax. 4. Situational Problems Assessed: ALL (Barotrauma, Oxygen Toxicity, Pneumothorax, Situational) Problems Present: None, (Barotrauma, Oxygen Toxicity, Pneumothorax, Situational) No issues or complaints during or after treatment. Pt. alert and oriented. Denies discomfort, unusual sensations. Able to equalize ear pressure with usual methods throughout pressurization without pauses or decreases in chamber pressure. Smiling and watching a movie throughout treatment. Interventions: Per Clinical Practice Guidelines for Hyperbaric Oxygen Therapy through [facility]. No issues or complaints during or after treatment. Patient assessed and found appropriate to leave the Hyperbaric area at the conclusion of today???s session. Continue HBOT as planned. Next treatment scheduled for 03/30/14 at 0700. documented in this encounter Plan of Treatment Not on file documented as of this encounter Visit Diagnoses Diagnosis Radiation injury, sequela documented in this encounter Care Teams Public Speaking Teacher Relationship Specialty Start Date End Date Marck Brody DO [address] [place], [place] [address]Y [facility] [address] [place] [address] PCP - General 02/08/10 10/12/21 documented as of this encounter
--- OUTSIDE RECORDS SUMMARY | 2023-12-08 20:07 | XMS_ITS | Encounter Summary ---
Author Organization [facility] [place] [address] Care Team Providers Care Internal Combustion Engine Subassembler Name Role Phone Marck Brody DO Primary Care Provider Reason for Visit * Reason Comments On Treatment Visit HBOT # 5 Encounter Details Date Type Department Care Team (Latest Contact Info) Description 03/26/2014 6:49 AM EST - 03/26/2014 11:59 PM EST Hospital Encounter [facility] [place] [phone] Radiation injury, sequela Social History Tobacco Use Types Packs/Day Years Used Date Smoking Tobacco: Never Smokeless Tobacco: Never Sex and Gender Information Value Date Recorded Sex Assigned at Not on file Gender Identity Not on file Sexual Orientation Not on file documented as of this encounter Last Filed Vital Signs Vital Sign Reading Time Taken Comments Blood Pressure 117/73 03/26/2014 9:05 AM EST Pulse 62 03/26/2014 9:05 AM EST Temperature 36.5 ??C (97.7 ??F) 03/26/2014 7:08 AM ES T Respiratory Rate - - [...] Progress Notes * Tamia Snow RN - 03/26/2014 8:37 AM EST Patient Name: Theresa Hollis Patient Age: 43 y.o. Birthdate: 1970 Admit date: 03/26/2014 Attending Physician: No att. providers found INTERVAL [...] treatment and monitored the patient. HYPERBARIC TREATMENT: Number-5 Planned number of treatments-20 before dental procedure, 10 immediately after dental procedure Compression Rate: 1.5psi/min Decompression Rate: 2.0 psi/min TROY-2.4 Start Compression Reach Treatment Pressure - 2.4 TROY Air Break Start Air Break Completed Start Decompression Treatment Completed 0719 0748 0805 0815 [id number] Sechrist Chamber # 2 Clinical Practice Guideline for Hyperbaric Oxygen Therapy Prevent and manage for potential problems related to 1.Barotrauma, 2.oxygen toxicity, and 3.Pneumothorax. 4. Situational Problems Assessed: ALL (Barotrauma, Oxygen Toxicity, Pneumothorax, Situational) Problems Present: None, (Barotrauma, Oxygen Toxicity, Pneumothorax, Situational) No issues or complaints during or after treatment. Interventions: Per Clinical Practice Guidelines for Hyperbaric Oxygen Therapy through [facility]. No complaints during or after treatment. Theresa had to work at equalizing the pressure in her ears again, she was able to get to 2.4ATA with frequent stops to allow extra time to clear her ears. It isgetting easier for her to equalize the pressure. Continue to go slow and allow time for her to workon clearing ears. She did not have any difficulty during decompression today. Patient assessed and found appropriate to leave the Hyperbaric area at the conclusion of today???s session. Continue HBOT as planned. Next treatment scheduled for tomorrow, 2014. documented in this encounter Plan of Treatment Not on file documented as of this encounter Visit Diagnoses Diagnosis Radiation injury, sequela documented in this encounter Care Teams Internal Combustion Engine Subassembler Relationship Specialty Start Date End Date Marck Brody DO [address] [place] [address] PCP - General 02/08/10 10/12/21 documented as of this encounter
--- OUTSIDE RECORDS SUMMARY | 2023-12-08 20:07 | XMS_ITS | Encounter Summary ---
Author Organization [facility] [place] [address] Care Team Providers Care Correctional Officer Name Role Phone Marck Brody DO Primary Care Provider Reason for Visit * Reason Comments On Treatment Visit HBOT #14 Encounter Details Date Type Department Care Team (Latest Contact Info) Description 04/08/2014 7:00 AM EST - 04/08/2014 11:59 PM EST Hospital Encounter [facility] [place] [phone] Radiation injury, sequela Social History Tobacco Use Types Packs/Day Years Used Date Smoking Tobacco: Never Smokeless Tobacco: Never Sex and Gender Information Value Date Recorded Sex Assigned at Not on file Gender Identity Not on file Sexual Orientation Not on file documented as of this encounter Last Filed Vital Signs Vital Sign Reading Time Taken Comments Blood Pressure 115/83 04/08/2014 9:00 AM EST Pulse 56 04/08/2014 9:00 AM EST Temperature 36.8 ??C (98.2 ??F) 04/08/2014 7:08 AM ES T Respiratory Rate 16 04/08/2014 9:00 AM EST Oxygen Saturation - - Inhaled [...] encounter Progress Notes * Reg Horta - 04/08/2014 11:01 AM EST Patient Name: Theresa Hollis Patient Age: 43 y.o. Birthdate: 1970 Admit date: 04/08/2014 Attending Physician: No att. providers found INTERVAL HISTORY: Patient denies any discomfort, changes, issues, complaints. Pain Level: 0 (0-10 scale) * If greater than 5, document interventions. Education: Patient assessed for educational needs and required none today. Theresa Hollis received hyperbaric oxygen treatment today for Radiation Injury - Sequela 100% cotton clothing in place. Patient checked for non-approved chamber items. Tympanic membranes checked. No redness or perforation noted. Patient assessed and met criteria to proceed with hyperbaric treatment. Safety checklist completed with patient. Grounding strap applied and grounding verified, patient placed in chamber, communications checked. Reg Horta RP/Tamia Snow RN administered the treatment and monitored the patient. HYPERBARIC TREATMENT: Number-14 Planned number of treatments- 05/01 Lio Protocol Compression Rate: 1.5psi/min Decompression Rate: 2.0 psi/min TROY-2.4 Start Compression Reach Treatment Pressure - TROY Air Break Start Air Break Completed Start Decompression Treatment Completed 0715 0737 0800 0810 [phone] Sechrist Chamber # 2 Clinical Practice Guideline [...] Therapy through [facility]. The patient experienced slight difficulty with clearing her ears during the dive. Pressure was reduced and patient was able to continue the dive to 2.4 TROY. The patient experienced no difficulties coming back to the surface. Patient assessed and found appropriate to leave the Hyperbaric area at the conclusion of today???s session. Continue HBOT as planned. Next treatment scheduled for March. documented in this encounter Plan of Treatment Not on file documented as of this encounter Visit Diagnoses Diagnosis Radiation injury, sequela documented in this encounter Care Teams Correctional Officer Relationship Specialty Start Date End Date Marck Brody DO [address] [place] [address] PCP - General 02/08/10 10/12/21 documented as of this encounter
--- OUTSIDE RECORDS SUMMARY | 2023-12-08 20:07 | XMS_ITS | Encounter Summary ---
Author Organization [facility] [place] [address] Care Team Providers Care Mathematics Education Professor Name Role Phone Marck Brody DO Primary Care Provider [phone] Reason for Visit * Reason Comments On Treatment Visit HBOT # 23 Encounter Details Date Type Department Care Team (Latest Contact Info) Description 05/11/2014 7:00 AM EST - 05/11/2014 11:59 PM EST Hospital Encounter [facility] [place] [phone] Radiation injury, sequela Social History Tobacco Use [...] Sign Reading Time Taken Comments Blood Pressure 117/64 05/11/2014 9:28 AM EST Pulse 75 05/11/2014 9:28 AM EST Temperature 36.4 ??C (97.5 ??F) 05/11/2014 7:15 AM ES T Respiratory Rate - [...] Progress Notes * Tamia Snow RN - 05/11/2014 10:48 AM EST Patient Name: Theresa Hollis Patient Age: 43 y.o. Birthdate: 1970 Admit date: 05/11/2014 Attending Physician: No att. providers found INTERVAL [...] treatment and monitored the patient. HYPERBARIC TREATMENT: Number-23 Planned number of treatments-30 total: 20 before dental procedure, 10 after procedure Compression Rate: 1.5psi/min Decompression Rate: 2.0 psi/min TROY-2.4 Start Compression Reach Treatment Pressure - 2.4 TROY Air Break Start Air Break Completed Start Decompression Treatment Completed 0723 0742 0827 0837 0913 0924 Sechrist Chamber # 1 Clinical Practice Guideline for Hyperbaric Oxygen Therapy Prevent and manage for potential problems related to 1.Barotrauma, 2.oxygen toxicity, and 3.Pneumothorax. 4. Situational Problems Assessed: ALL (Barotrauma, Oxygen Toxicity, Pneumothorax, Situational) Problems Present: Difficulty equalizing pressure in her ears. Interventions: Per Clinical Practice Guidelines for Hyperbaric Oxygen Therapy through [facility]. Stopped increasing pressure several times during compression to allow her extra time to equalize pressure. She was able to fairly easily do this with short breaks. No complaints during or after treatment. Patient assessed and found appropriate to leave the Hyperbaric area at the conclusion of today???s session. Continue HBOT as planned. Next treatment scheduled for tomorrow, . documented in this encounter Plan of Treatment Not on file documented as of this encounter Visit Diagnoses Diagnosis Radiation injury, sequela documented in this encounter Care Teams Mathematics Education Professor Relationship Specialty Start Date End Date Marck Brody DO [address] [place] [address] PCP - General 02/08/10 10/12/21 documented as of this encounter
--- OUTSIDE RECORDS SUMMARY | 2023-12-08 20:07 | XMS_ITS | Encounter Summary ---
Author Organization [facility] [place] [address] Care Team Providers Care Plastics Fitter Name Role Phone Marck Brody DO Primary Care Provider Reason for Visit * Reason Comments On Treatment Visit HBOT #7 Encounter Details Date Type Department Care Team (Latest Contact Info) Description 03/30/2014 7:00 AM EST - 03/30/2014 11:59 PM EST Hospital Encounter [facility] [place] [place] [phone] Radiation injury, sequela Social History Tobacco Use Types Packs/Day Years Used Date Smoking Tobacco: Never Smokeless Tobacco: Never Sex and Gender Information Value Date Recorded Sex Assigned at Not on file Gender Identity Not on file Sexual Orientation Not on file documented as of this encounter Last Filed Vital Signs Vital Sign Reading Time Taken Comments Blood Pressure 108/61 03/30/2014 9:05 AM EST Pulse 49 03/30/2014 9:05 AM EST Temperature 36.6 ??C (97.9 ??F) 03/30/2014 7:10 AM ES T Respiratory Rate - [...] Progress Notes * Tamia Snow RN - 03/30/2014 8:28 AM EST Patient Name: Theresa Hollis Patient Age: 43 y.o. Birthdate: 1970 Admit date: 03/30/2014 Attending Physician: No att. providers found INTERVAL HISTORY: Patient denies any discomfort, changes, issues, complaints. Reports that she had a good weekend, cold symptoms have gone, feeling well. Theresa Hollis received hyperbaric oxygen treatment [...] treatment and monitored the patient. HYPERBARIC TREATMENT: Number-7 Planned number of treatments-20 prior to dental procedure and 10 immediately after procedure. Compression Rate: 1.5psi/min Decompression Rate: 2.0 psi/min TROY-2.4 Start Compression Reach Treatment Pressure - 2.4 TROY Air Break Start Air Break Completed Start Decompression Treatment Completed 0720 0735 0805 0816 0851 0903 Sechrist Chamber # 2 Clinical Practice Guideline [...] Therapy through [facility]. No issues or complaints during or after treatment. Had no issues with ears during compression or decopression. Patient assessed and found appropriate to leave the Hyperbaric area at the conclusion of today???s session. Continue HBOT as planned. Next treatment scheduled for tomorrow, 2014. documented in this encounter Plan of Treatment Not on file documented as of this encounter Visit Diagnoses Diagnosis Radiation injury, sequela documented in this encounter Care Teams Plastics Fitter Relationship Specialty Start Date End Date Marck Brody DO [address] [place] [address] PCP - General 02/08/10 10/12/21 documented as of this encounter
--- OUTSIDE RECORDS SUMMARY | 2023-12-08 20:07 | XMS_ITS | Encounter Summary ---
Author Organization [facility] [place] [address] Care Team Providers Care Paint Factory Worker Name Role Phone Marck Brody DO Primary Care Provider [phone] Reason for Visit * Reason Comments On Treatment Visit HBOT# 12 Encounter Details Date Type Department Care Team (Latest Contact Info) Description 04/06/2014 7:00 AM EST - 04/06/2014 11:59 PM EST Hospital Encounter [facility] [place] [place] [phone] Radiation injury, sequela Social History Tobacco Use Types Packs/Day Years Used Date Smoking Tobacco: Never Smokeless Tobacco: Never Sex and Gender Information Value Date Recorded Sex Assigned at Not on file Gender Identity Not on file Sexual Orientation Not on file documented as of this encounter Last Filed Vital Signs Vital Sign Reading Time Taken Comments Blood Pressure 110/73 04/06/2014 9:07 AM EST Pulse 56 04/06/2014 9:07 AM EST Temperature 36.1 ??C (97 ??F) 04/06/2014 7:19 AM EST Respiratory Rate 16 04/06/2014 7:19 AM EST Oxygen Saturation - - Inhaled [...] Progress Notes * Mary Littlejohn RN - 04/06/2014 9:01 AM EST Patient Name: Theresa Hollis Patient Age: 43 y.o. Birthdate: 1970 Admit date: 04/06/2014 Attending Physician: No att. providers found INTERVAL HISTORY: Patient denies any discomfort, changes, issues, complaints. Everything is fine. I had a good weekend. Patient stated. Pain Level: __0___ (0-10 scale) * If [...] treatment and monitored the patient. HYPERBARIC TREATMENT: Number-12 Planned number of treatments-05/01 Compression Rate: 1.5psi/min Decompression Rate: 2.0 psi/min ANGELA-2.4 Start Compression Reach Treatment Pressure - ANGELA Air Break Start Air Break Completed Start Decompression Treatment Completed 0723 0750 0808 0819 0854 0905 Sechrist Chamber # 2 Clinical Practice Guideline for Hyperbaric Oxygen Therapy Prevent and manage for potential problems related to 1.Barotrauma, 2.oxygen toxicity, and 3.Pneumothorax. 4. Situational Problems Assessed: ALL (Barotrauma, Oxygen Toxicity, Pneumothorax, Situational) Problems Present: Barotrauma (Barotrauma, Oxygen Toxicity, Pneumothorax, Situational) It feels like there is water in there, like after a shower. Pt. Stated. Patient experienced some fullness/stuffiness in left ear during pressurization. Denied any pain or discomfort. Able to equalize pressure with some backing off of pressure. Progressed to 2.4 ANGELA without further difficulties/complaints. Interventions: Per Clinical Practice Guidelines for Hyperbaric Oxygen Therapy through [facility]. Required slower pressurization until 1.65 angela was reached then had no further difficulties. Offeredsupport and encouragement. Patient assessed and found appropriate to leave the Hyperbaric area at the conclusion of today???s session. Continue HBOT as planned. Next treatment scheduled for 04/07/14 at 07:15. documented in this encounter Plan of Treatment Not on file documented as of this encounter Visit Diagnoses Diagnosis Radiation injury, sequela documented in this encounter Care Teams Paint Factory Worker Relationship Specialty Start Date End Date Marck Brody DO [address] [place] [address] PCP - General 02/08/10 10/12/21 documented as of this encounter
--- OUTSIDE RECORDS SUMMARY | 2023-12-08 20:07 | XMS_ITS | Encounter Summary ---
Author Organization [facility] Address [facility] [place] [address] Care Team Providers Care Home Demonstrator Name Role Phone Marck Brody DO Primary Care Provider Reason for Visit * Reason Comments Follow-up 7 years out Encounter Details Date Type Department Care Team (Late st Contact Info) Description 01/19/2014 12:45 PM EST Follow-[place] [phone] Toño Cervantes PA [facility] [address] H/O tongue cancer (Primary Dx) Discharge Disposition: Home Social History Tobacco Use Types Packs/Day Years Used Date Smoking Tobacco: Never Smokeless Tobacco: Never Sex and Gender Information Value Date Recorded Sex Assigned at Not on file Gender Identity Not on file Sexual Orientation Not on file documented as of this encounter Last Filed Vital Signs Vital Sign Reading Time Taken Comments Blood Pressure 132/64 01/19/2014 12:49 PM EST Pulse 100 01/19/2014 12:49 PM EST Temperature - - Respiratory Rate - - Oxygen Saturation - - Inhaled Oxygen Concentration - - Weight 50.3 kg (111 lb) 01/19/2014 12:49 PM EST Height - - Body Mass Index 19.66 01/09/2014 3:06 PM EDT documented in this encounter Progress Notes * Toño Cervantes PA - 01/19/2014 12:54 PM EST [facility] Follow up Note: Theresa Hollis is 42 years of age and is being seen in follow up for the following: Primary site: Left lateral tongue Stage: [id number] Surgery(ies): 10/31/06 - Hemiglossectomy, left neck dissection 1-5, skin graft, allograft Radiation: TREATMENT STARTED: 11/28/06 TREATMENT COMPLETED: 01/14/07 TREATMENT: The total maximum dose was 6600 cGy in 33 fractions. Volume reductions were instituted at 5400 cGy in 30 fractions & 6000 cGy in 30 fractions. Chemotherapy: Concurrent cisplatin The patient reports that she has had no concerns over the one year in term since her last visit. She denies any changes of her tongue such as ulceration, pain, or mass. Her swallowing has remained stable. She also reports her overall health is been excellent. On examination she is healthy appearing in no acute distress. Palpation of the neck reveals no palpable mass or adenopathy. The tissues have changed secondary toher radiation therapy and are bit firm and stiff. Oral cavity: Tongue demonstrate surgical changes, but I see no evidence of any ulceration or recurrent mass. The rest of the oral cavity mucosa appears normal. Procedure note: Fiberoptic laryngoscopy was completed under topical lidocaine and Privine through the left nostril. No intranasal pathology was appreciated. The nasopharynx and oropharynx were nonremarkable. The base of tongue appears normal save for changes associated with radiation therapy. The epiglottis is normal without signs of any the posterior lesion. Vocal cords are normal without discrete lesion, irritation, or paralysis. Post cricoid region and piriform sinuses are normal. Impression: No evidence of recurrent disease. The patient is now 7 years of treatment. Followup will be arranged in one year. This is with the understanding that should she have any concerns in the meantime she is to call sooner. Toño Cervantes PA-C Department of Otolaryngology [facility] [place] [address] Office Phone - documented in this encounter Plan of Treatment Not on file documented as of this encounter Visit Diagnoses Diagnosis H/O tongue cancer- Primary Personal history of malignant neoplasm of tongue documented in this encounter Care Teams Home Demonstrator Relationship Specialty Start Date End Date Marck Brody DO [address] [place] [address] PCP - General 02/08/10 10/12/21 documented as of this encounter
--- OUTSIDE RECORDS SUMMARY | 2023-12-08 20:07 | XMS_ITS | Encounter Summary ---
Author Organization [facility] [place] [address] Care Team Providers Care Core Maker Helper Name Role Phone Marck Brody DO Primary Care Provider Reason for Visit * Reason Comments On Treatment Visit HBOT# 3 (discounted yesterday's brief treatmentz) Encounter Details Date Type Department Care Team (Latest Contact Info) Description 03/24/2014 7:00 AM EST - 03/24/2014 11:59 PM EST Hospital Encounter [facility] [place] [address] Radiation injury, sequela Social History Tobacco Use Types Packs/Day Years Used Date Smoking Tobacco: Never Smokeless Tobacco: Never Sex and Gender Information Value Date Recorded Sex Assigned at Not on file Gender Identity Not on file Sexual Orientation Not on file documented as of this encounter Last Filed Vital Signs Vital Sign Reading Time Taken Comments Blood Pressure 103/62 03/24/2014 9:14 AM EST Pulse 60 03/24/2014 9:14 AM EST Temperature 36.4 ??C (97.5 ??F) 03/24/2014 7:10 AM ES T Respiratory Rate 18 03/24/2014 7:10 AM EST Oxygen Saturation - - [...] Progress Notes * Mary Littlejohn RN - 03/24/2014 10:07 AM EST Patient Name: Theresa Hollis Patient Age: 43 y.o. Birthdate: 1970 Admit date: 03/24/2014 Attending Physician: No att. providers found INTERVAL HISTORY: Patient denies any discomfort, changes, issues, complaints. I started the Debrox ear drops and the Afrin spray. Everything feels fine. Patient stated. Cough: Usual baseline cough per patient. Ear Pain: Denies Cold symptoms: Denies Pain Level: __0___ (0-10 scale) * If greater than 5, document interventions. Education: Reinforced early and frequent ear pressure equalization and importance of reporting any difficulties equalizing pressure, discomfort, unusual sensations to RN. 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 100% cotton clothing in place. Patient checked for non-approved chamber items. Tympanic membranes checked. Wax continues to obstruct vision of TM's, especially right ear. Dr. Mcdonald removed a moderate amount of ear wax bilateral ears using small instrument probes. Improved visualization of TM's. Noredness, bubbles or perforation noted. Patient assessed and met criteria to proceed with hyperbaric treatment. Safety checklist completed with patient. Grounding strap applied and grounding verified, patient placed in chamber, communications checked. Mary Littlejohn RN/Tamia Snow RN administered the treatment and monitored the patient. HYPERBARIC TREATMENT: Number-3 ( Yesterday's brief treatment was not counted.) Planned number of treatments-20/10 Compression Rate: 1.5psi/min Decompression Rate: 2.0 psi/min TROY-2.4 Start Compression Reach Treatment Pressure - TROY Air Break Start Air Break Completed Start Decompression Treatment Completed 0730 0810 0815 0825 0859 0911 [facility] # 2 Clinical Practice Guideline for Hyperbaric Oxygen Therapy Prevent and manage for potential problems related to 1.Barotrauma, 2.oxygen toxicity, and 3.Pneumothorax. 4. Situational Problems Assessed: ALL (Barotrauma, Oxygen Toxicity, Pneumothorax, Situational) Problems Present: Barotrauma (Barotrauma, Oxygen Toxicity, Pneumothorax, Situational) Had difficulty equalizing ear pressure and required very slow pressurization with frequent backing off of pressure to re-establish ear pressure equalization. Patient denied any pain but appeared frustrated and required frequent coaching, reminders of ear clearing techniques and positive reinforcement. Once TROY of 1.30 was reached, patient was able to progress steadily without difficulty to pressure of 2.4 TROY for remainder of treatment. Interventions: Per Clinical Practice Guidelines for Hyperbaric Oxygen Therapy through [facility]. Slow, careful pressurization as above with frequent positive reinforcement and coaching. Smiling and watching movie for remainder of treatment. Denies discomfort or stuffy feeling in ears. Continues to experience occasional crackling noises. Reminded to clear ears a few more times during the day and before bed tonight. Patient will continue with Afrin nasal spray BID and Debrox ear wax drops. Patient assessed and found appropriate to leave the Hyperbaric area at the conclusion of today???s session. Continue HBOT as planned. Next treatment scheduled for 03/25/14. documented in this encounter Plan of Treatment Not on file documented as of this encounter Visit Diagnoses Diagnosis Radiation injury, sequela documented in this encounter Care Teams Core Maker Helper Relationship Specialty Start Date End Date Marck Brody DO [address] [facility] [address] [place] [address] PCP - General 02/08/10 10/12/21 documented as of this encounter
--- OUTSIDE RECORDS SUMMARY | 2023-12-08 20:07 | XMS_ITS | Encounter Summary ---
Author Organization [facility] [place] [address] Care Team Providers Care Gas Leak Inspector Helper Name Role Phone Marck Brody DO Primary Care Provider [phone] Reason for Visit * Reason Comments On Treatment Visit HBOT#11 Encounter Details Date Type Department Care Team (Latest Contact Info) Description 04/03/2014 7:00 AM EST - 04/03/2014 11:59 PM EST Hospital Encounter [facility] [place] [phone] Radiation injury, sequela Social History Tobacco Use Types Packs/Day Years Used Date Smoking Tobacco: Never Smokeless Tobacco: Never Sex and Gender Information Value Date Recorded Sex Assigned at Not on file Gender Identity Not on file Sexual Orientation Not on file documented as of this encounter Last Filed Vital Signs Vital Sign Reading Time Taken Comments Blood Pressure 104/59 04/03/2014 9:03 AM EST Pulse 53 04/03/2014 9:03 AM EST Temperature 36.9 ??C (98.4 ??F) 04/03/2014 7:15 AM ES T Respiratory Rate 16 04/03/2014 7:15 AM EST Oxygen Saturation - - [...] Progress Notes * Mary Littlejohn RN - 04/03/2014 10:11 AM EST Patient Name: Theresa Hollis Patient Age: 43 y.o. Birthdate: 1970 Admit date: 04/03/2014 Attending Physician: No att. providers found INTERVAL HISTORY: Patient denies any discomfort, changes, issues, complaints. She has returned to work and everythingis going well. She continues to have baseline tinnitus in the afternoon. It's left over from my radiation. Pt stated. Theresa Hollis received hyperbaric oxygen treatment today [...] treatment and monitored the patient. HYPERBARIC TREATMENT: Number-11 Planned number of treatments-20 prior to dental procedure/10 following dental procedure Compression Rate: 1.5psi/min Decompression Rate: 2.0 psi/min TROY-2.4 Start Compression Reach Treatment Pressure - TROY Air Break Start Air Break Completed Start Decompression Treatment Completed 0719 0736 0804 0814 0849 0901 [facility] Chamber # 2 Clinical Practice Guideline for Hyperbaric Oxygen Therapy Prevent and manage for potential problems related to 1.Barotrauma, 2.oxygen toxicity, and 3.Pneumothorax. 4. Situational Problems Assessed: ALL (Barotrauma, Oxygen Toxicity, Pneumothorax, Situational) Problems Present: None, (Barotrauma, Oxygen Toxicity, Pneumothorax, Situational) No issues or complaints during or after treatment. Patient alert, oriented. Steady gait. Interventions: Per Clinical Practice Guidelines for Hyperbaric Oxygen Therapy through [facility]. Patient assessed and found appropriate to leave the Hyperbaric area at the conclusion of today???s session. Continue HBOT as planned. Next treatment scheduled for 04/06/14. documented in this encounter Plan of Treatment Not on file documented as of this encounter Visit Diagnoses Diagnosis Radiation injury, sequela documented in this encounter Care Teams Gas Leak Inspector Helper Relationship Specialty Start Date End Date Marck Brody DO [address] [place] [address] PCP - General 02/08/10 10/12/21 documented as of this encounter
--- OUTSIDE RECORDS SUMMARY | 2023-12-08 20:07 | XMS_ITS | Encounter Summary ---
Author Organization [facility] [address] Care Team Providers Care Painter Railroad Car Name Role Phone Marck Brody DO Primary Care Provider Reason for Visit * Reason Comments On Treatment Visit HBOT# 15 Encounter Details Date Type Department Care Team (Latest Contact Info) Description 04/09/2014 7:00 AM EST - 04/09/2014 11:59 PM EST Hospital Encounter [facility] [place] [phone] Radiation injury, sequela Social History Tobacco Use Types Packs/Day Years Used Date Smoking Tobacco: Never Smokeless Tobacco: Never Sex and Gender Information Value Date Recorded Sex Assigned at Not on file Gender Identity Not on file Sexual Orientation Not on file documented as of this encounter Last Filed Vital Signs Vital Sign Reading Time Taken Comments Blood Pressure 114/63 04/09/2014 9:00 AM EST Pulse 58 04/09/2014 9:00 AM EST Temperature 36.5 ??C (97.7 ??F) 04/09/2014 8:03 AM ES T Respiratory Rate - - [...] Progress Notes * Mary Littlejohn RN - 04/09/2014 8:04 AM EST Patient Name: Theresa Hollis Patient Age: 43 y.o. Birthdate: 1970 Admit date: 04/09/2014 Attending Physician: No att. providers found INTERVAL HISTORY: Patient denies any discomfort, issues, complaints. Visual Changes: Pt. reports: I think my distance vision is a little less crisp. I'm not driving. Pain Level: __0___ (0-10 scale) * If greater than 5, document interventions. Education: Encouraged to start clearing ears early and often. Theresa Hollis received hyperbaric oxygen treatment today [...] treatment and monitored the patient. HYPERBARIC TREATMENT: Number-15 Planned number of treatments-20 prior to procedure/10 immediately following dental procedure Compression Rate: 1.5psi/min Decompression Rate: 2.0 psi/min TROY-2.4 Start Compression Reach Treatment Pressure - TROY Air Break Start Air Break Completed Start Decompression Treatment Completed 0716 0737 0801 0811 0846 0858 [facility] Chamber # 2 Clinical Practice Guideline for Hyperbaric Oxygen Therapy Prevent and manage for potential problems related to 1.Barotrauma, 2.oxygen toxicity, and 3.Pneumothorax. 4. Situational Problems Assessed: ALL (Barotrauma, Oxygen Toxicity, Pneumothorax, Situational) Problems Present: None, (Barotrauma, Oxygen Toxicity, Pneumothorax, Situational) Patient requested slight decrease in pressure x2 ..so I can clear my left ear. Patient very awareof pressure changes in her ears and is able to clear them with slowed pressurization and slight backing off on pressure as needed. Denies pain or discomfort. Patient is noticing slight changes to herdistance vision. Interventions: Per Clinical Practice Guidelines for Hyperbaric Oxygen Therapy through [facility]. As above, required slight decrease in pressure briefly to equalize pressure in left ear. Patient able to equalize very quickly with Valsalva maneuver. Progressed to 2.4 TROY in steps and observed patient closely. Watching TV and relaxing in chamber for duration of treatment. No issues or complaints during or after treatment. Will check vision prior to next treatment as perHBO vision check schedule. Patient assessed and found appropriate to leave the Hyperbaric area at the conclusion of today???s session. Continue HBOT as planned. Next treatment scheduled for 04/10/14. documented in this encounter Plan of Treatment Not on file documented as of this encounter Visit Diagnoses Diagnosis Radiation injury, sequela documented in this encounter Care Teams Painter Railroad Car Relationship Specialty Start Date End Date Marck Brody DO [address] [place] [address] PCP - General 02/08/10 10/12/21 documented as of this encounter
--- OUTSIDE RECORDS SUMMARY | 2023-12-08 20:07 | XMS_ITS | Encounter Summary ---
Author Organization Formerly [facility] [place] [address] Care Team Providers Care Mechanical Engineering Teacher Name Role Phone Marck Brody DO Primary Care Provider [phone] Encounter Details Date Type Department Care Team (Late st Contact Info) Description 05/12/2014 Orders Only [facility] [place] [place] [phone] Mary Littlejohn, RN Social History Tobacco Use Types Packs/Day [...] on filedocumented in this encounter Care Teams Mechanical Engineering Teacher Relationship Specialty Start Date End Date Marck Brody DO [address] [place], [place] [address] PCP - General 02/08/10 10/12/21 documented as of this encounter
--- OUTSIDE RECORDS SUMMARY | 2023-12-08 20:07 | XMS_ITS | Encounter Summary ---
Author Organization [facility] [place] [address] Care Team Providers Care Laborer Brush Clearing Name Role Phone Marck Brody DO Primary Care Provider Reason for Visit * Reason Comments On Treatment Visit HBOT#13 Encounter Details Date Type Department Care Team (Latest Contact Info) Description 04/07/2014 7:00 AM EST - 04/07/2014 11:59 PM EST Hospital Encounter [facility] [place] [phone] Radiation injury, sequela Social History Tobacco Use Types Packs/Day Years Used Date Smoking Tobacco: Never Smokeless Tobacco: Never Sex and Gender Information Value Date Recorded Sex Assigned at Not on file Gender Identity Not on file Sexual Orientation Not on file documented as of this encounter Last Filed Vital Signs Vital Sign Reading Time Taken Comments Blood Pressure 118/70 04/07/2014 9:05 AM EST Pulse 62 04/07/2014 9:05 AM EST Temperature 36.8 ??C (98.2 ??F) 04/07/2014 7:15 AM ES T Respiratory Rate 16 04/07/2014 7:15 AM EST Oxygen Saturation - - [...] Progress Notes * Mary Littlejohn RN - 04/07/2014 12:31 PM EST Patient Name: Theresa Hollis Patient Age: 43 y.o. Birthdate: 1970 Admit date: 04/07/2014 Attending Physician: No att. providers found INTERVAL HISTORY: Patient denies any discomfort, changes, issues, complaints. Denies ear discomfort or issues. Deniescold symptoms. Pain Level: _0____ (0-10 scale) * If [...] treatment and monitored the patient. HYPERBARIC TREATMENT: Number-13 Planned number of treatments-05/01 Compression Rate: 1.5psi/min Decompression Rate: 2.0 psi/min TROY-2.4 Start Compression Reach Treatment Pressure - TROY Air Break Start Air Break Completed Start Decompression Treatment Completed 0720 0750 0805 0815 0850 [id number] Sechrist Chamber # 2 Clinical Practice Guideline for Hyperbaric Oxygen Therapy Prevent and manage for potential problems related to 1.Barotrauma, 2.oxygen toxicity, and 3.Pneumothorax. 4. Situational Problems Assessed: ALL (Barotrauma, Oxygen Toxicity, Pneumothorax, Situational) Problems Present: Barotrauma (Barotrauma, Oxygen Toxicity, Pneumothorax, Situational) Had difficulty equalizing ear pressure left ear again today. Able to clear ears when pressure backed off. Once reached 1.5 TROY pressurization went smoothly. Patient denies discomfort or issues after treatment. Interventions: Per Clinical Practice Guidelines for Hyperbaric Oxygen Therapy through [facility]. Continue to monitor patient closely during pressurization and advance slowly or back off pressure slightly to allow for adequate ear pressure equalization. Patient assessed and found appropriate to leave the Hyperbaric area at the conclusion of today???s session. Continue HBOT as planned. Next treatment scheduled for 04/08/14. documented in this encounter Plan of Treatment Not on file documented as of this encounter Visit Diagnoses Diagnosis Radiation injury, sequela documented in this encounter Care Teams Laborer Brush Clearing Relationship Specialty Start Date End Date Marck Brody DO [address] [place] [address] [address] [facility] [address] [place] [address] PCP - General 02/08/10 10/12/21 documented as of this encounter
--- OUTSIDE RECORDS SUMMARY | 2023-12-08 20:07 | XMS_ITS | Encounter Summary ---
Author Organization [facility] [place] [address] Care Team Providers Care Outside Salesperson Name Role Phone Marck Brody DO Primary Care Provider [phone] Encounter Details Date Type Department Care Team (Late st Contact Info) Description 04/08/2014 Notes Only [facility] [place] [address] Cuba Mcdonald Jr., MD [facility] [address] [place] [address] Social History Tobacco Use Types Packs/Day Years Used Date Smoking Tobacco: Never Smokeless Tobacco: Never Sex and Gender Information Value Date Recorded Sex Assigned at Not on file Gender Identity Not on file Sexual Orientation Not on file documented as of this encounter Progress Notes * Cuba Mcdonald Jr., MD - 04/08/2014 7:55 AM EST Has completed 14 of her 20 pre intervention treatments. Progress has been reviewed and is satisfactory. Complications: Issues with clearing ears have resolved. Follow up plan: Continue with current plan. documented in this encounter Plan of Treatment Not on file documented as of this encounter Visit Diagnoses Not on filedocumented in this encounter Care Teams Outside Salesperson Relationship Specialty Start Date End Date Marck Brody DO [address] [place] [address] PCP - General 02/08/10 10/12/21 documented as of this encounter
--- OUTSIDE RECORDS SUMMARY | 2023-12-08 20:07 | XMS_ITS | Encounter Summary ---
Author Organization [facility] [address] Care Team Providers Care Infection Prevention Specialist Name Role Phone Marck Brody DO Primary Care Provider Reason for Visit * Reason Comments On Treatment Visit HBOT #18 Encounter Details Date Type Department Care Team (Latest Contact Info) Description 04/15/2014 6:49 AM EST - 04/15/2014 11:59 PM EST Hospital Encounter [facility] [place] [phone] Radiation injury, sequela Social History Tobacco Use Types Packs/Day Years Used Date Smoking Tobacco: Never Smokeless Tobacco: Never Sex and Gender Information Value Date Recorded Sex Assigned at Not on file Gender Identity Not on file Sexual Orientation Not on file documented as of this encounter Last Filed Vital Signs Vital Sign Reading Time Taken Comments Blood Pressure 124/70 04/15/2014 9:05 AM EST Pulse 56 04/15/2014 9:05 AM EST Temperature 36.5 ??C (97.7 ??F) 04/15/2014 7:15 AM ES T Respiratory Rate 18 04/15/2014 9:05 AM EST Oxygen Saturation - - Inhaled [...] encounter Progress Notes * Reg Horta - 04/15/2014 9:47 AM EST Patient Name: Theresa Hollis Patient Age: 43 y.o. Birthdate: 1970 Admit date: 04/15/2014 Attending Physician: No att. providers found INTERVAL HISTORY: Patient denies any discomfort, changes, issues, complaints. Pain Level: 0 (0-10 scale) * If greater than 5, document interventions. Education: patient assessed for educational needs, none required today. Theresa Hollis received hyperbaric oxygen treatment today for Radiation Injury - Sequelae 100% cotton clothing in place. Patient checked for non-approved chamber items. Tympanic membranes checked. No redness or perforation noted. Patient assessed and met criteria to proceed with hyperbaric treatment. Safety checklist completed with patient. Grounding strap applied and grounding verified, patient placed in chamber, communications checked. Reg Horta RP/Tamia Snow RN administered the treatment and monitored the patient. HYPERBARIC TREATMENT: Number-18 Planned number of treatments- 05/01 Lio Protocol Compression Rate: 1.5psi/min Decompression Rate: 2.0 psi/min TROY-2.4 Start Compression Reach Treatment Pressure - TROY Air Break Start Air Break Completed Start Decompression Treatment Completed 0718 0742 0803 0813 0849 0859 Sechrist Chamber # 2 Clinical Practice Guideline for Hyperbaric Oxygen Therapy Prevent and manage for potential problems related to 1.Barotrauma, 2.oxygen toxicity, and 3.Pneumothorax. 4. Situational Problems Assessed: ALL (Barotrauma, Oxygen Toxicity, Pneumothorax, Situational) Problems Present: None, (Barotrauma, Oxygen Toxicity, Pneumothorax, Situational) No issues or complaints during or after treatment. Interventions: Per Clinical Practice Guidelines for Hyperbaric Oxygen Therapy through [facility]. Patient had difficulty clearing her ears a few times during the dive to 2.4 JUNIOR. Pressure was decreased until she was able to clear, then the dive continued without problems. Patient assessed and found appropriate to leave the Hyperbaric area at the conclusion of today???s session. Continue HBOT as planned. Next treatment scheduled for March. documented in this encounter Plan of Treatment Not on file documented as of this encounter Visit Diagnoses Diagnosis Radiation injury, sequela documented in this encounter Care Teams Infection Prevention Specialist Relationship Specialty Start Date End Date Marck Brody DO [address] [place] [address] PCP - General 02/08/10 10/12/21 documented as of this encounter
--- OUTSIDE RECORDS SUMMARY | 2023-12-08 20:07 | XMS_ITS | Encounter Summary ---
[place] [address] Care Team Providers Care Booth Supervisor Name Role Phone Marck Brody DO Primary Care Provider Reason for Visit * Reason Comments Other Encounter Details Date Type Department Care Team (Late st Contact Info) Description 03/24/2014 Telephone Hematology [place] [phone] Kimberly Montano APRN [address] [facility] [place] [address] Social History Tobacco Use Types Packs/Day Years Used Date Smoking Tobacco: Never Smokeless Tobacco: Never Sex and Gender Information Value Date Recorded Sex Assigned at Not on file Gender Identity Not on file Sexual Orientation Not on file documented as of this encounter Miscellaneous Notes * Telephone Encounter - Kimberly Montano APRN - 03/24/2014 10:36 AM EST Called patient to let her know that TSH was normal at 3.0. She can remain on her current dose. She verbalized understanding. Kimberly Montano, MSN, RUG CLEANER HELPER, AOCN Hematology/Oncology Nurse Practitioner [place], [place] [phone] * Telephone Encounter - Kimberly Montano APRN - 03/24/2014 10:36 AM EST ----- Message from Jory Mello sent at 03/23/2014 11:18 AM EST ----- Regarding: lab check Hi Kimberly, Patient calling to let you know she had her thyroid checked today and is wondering if you can call her with the results. Patient can be reached at: [phone] or [phone] Thanks! Jory documented in this encounter Plan of Treatment Not on file documented as of this encounter Visit Diagnoses Not on filedocumented in this encounter Care Teams Booth Supervisor Relationship Specialty Start Date End Date Marck Brody DO [address] [place] [address] PCP - General 02/08/10 10/12/21 documented as of this encounter
--- OUTSIDE RECORDS SUMMARY | 2023-12-08 20:07 | XMS_ITS | Encounter Summary ---
Author Organization [facility] [place] [address] Care Team Providers Care Business Development Specialist Name Role Phone Marck Brody DO Primary Care Provider Encounter Details Date Type Department Care Team (Latest Contact Info) Description 01/19/2014 11:48 AM EST - 01/19/2014 11:59 PM EST Hospital Encounter H[place]ology [place] [phone] CLINIC, DR CARLEY Sherman, Marck Love MD [address] [place] [address] [place] [address] Discharge Disposition: Home Social History Tobacco Use Types Packs/Day Years Used Date Smoking Tobacco: Never Smokeless Tobacco: Never Sex and Gender Information Value Date Recorded Sex Assigned at Not on file Gender Identity Not on file Sexual Orientation Not on file documented as of this encounter Medications at Time of Discharge Medication Sig Dispensed Refills Start Date End Date UNABLE TO FIND 2 tablets daily. Med Name:taking a calcium chew 1000mg a day 07/08/2015 levothyroxine (SYNTHROID) 100 mcg TabletIndications:Histo ry of tongue cancer,Hypothyroidism (acquired) Take 1 tablet by mouth daily. 30 tablet 12 01/19/2014 01/27/2015 cevimeline (EVOXAC) 30 mg capsuleIndications:Tong ue cancer Take 1 capsule by mouth 3 times daily. 90 capsule 12 10/13/2013 10/29/2014 documented as of this encounter Plan of Treatment Not on file documented as of this encounter Visit Diagnoses Not on filedocumented in this encounter Care Teams Business Development Specialist Relationship Specialty Start Date End Date Marck Brody DO [address] [place] [address] PCP - General 02/08/10 10/12/21 documented as of this encounter
--- OUTSIDE RECORDS SUMMARY | 2023-12-08 20:07 | XMS_ITS | Encounter Summary ---
Author Organization [facility] [place] [address] Care Team Providers Care Upholstery Bundler Name Role Phone Marck Brody DO Primary Care Provider Reason for Visit * Reason Comments On Treatment Visit HBOT#8 Encounter Details Date Type Department Care Team (Latest Contact Info) Description 03/31/2014 7:00 AM EST - 03/31/2014 11:59 PM EST Hospital Encounter [facility] [place] [phone] Radiation injury, sequela Social History Tobacco Use Types Packs/Day Years Used Date Smoking Tobacco: Never Smokeless Tobacco: Never Sex and Gender Information Value Date Recorded Sex Assigned at Not on file Gender Identity Not on file Sexual Orientation Not on file documented as of this encounter Last Filed Vital Signs Vital Sign Reading Time Taken Comments Blood Pressure 129/83 03/31/2014 9:09 AM EST Pulse 70 03/31/2014 9:09 AM EST Temperature 36.1 ??C (97 ??F) 03/31/2014 7:20 AM EST Respiratory Rate 16 03/31/2014 7:20 AM EST Oxygen Saturation - - Inhaled [...] Progress Notes * Mary Littlejohn RN - 03/31/2014 9:54 AM EST Patient Name: Theresa Hollis Patient Age: 43 y.o. Birthdate: 1970 Admit date: 03/31/2014 Attending Physician: No att. providers found INTERVAL HISTORY: Patient denies any discomfort, changes, issues, complaints. Pain Level: _0____ (0-10 scale) * If [...] treatment and monitored the patient. HYPERBARIC TREATMENT: Number-8 Planned number of treatments-20/10 Compression Rate: 1.5psi/min Decompression Rate: 2.0 psi/min TROY-2.4 Start Compression Reach Treatment Pressure - TROY Air Break Start Air Break Completed Start Decompression Treatment Completed 0724 0741 0809 0819 0855 0907 Sechrist Chamber # 2 Clinical Practice Guideline for Hyperbaric Oxygen Therapy Prevent and manage for potential problems related to 1.Barotrauma, 2.oxygen toxicity, and 3.Pneumothorax. 4. Situational Problems Assessed: ALL (Barotrauma, Oxygen Toxicity, Pneumothorax, Situational) Problems Present: None, (Barotrauma, Oxygen Toxicity, Pneumothorax, Situational) No issues or complaints during or after treatment. That was the easiest one yet. Patient stated. Interventions: Per Clinical Practice Guidelines for Hyperbaric Oxygen Therapy through [facility]. No issues or complaints during or after treatment. Patient assessed and found appropriate to leave the Hyperbaric area at the conclusion of today???s session. Continue HBOT as planned. Next treatment scheduled for 04/01/14. documented in this encounter Plan of Treatment Not on file documented as of this encounter Visit Diagnoses Diagnosis Radiation injury, sequela documented in this encounter Care Teams Upholstery Bundler Relationship Specialty Start Date End Date Marck Brody DO [address] [place] [address] PCP - General 02/08/10 10/12/21 documented as of this encounter
--- OUTSIDE RECORDS SUMMARY | 2023-12-08 20:07 | XMS_ITS | Encounter Summary ---
Author Organization [facility] [address] Care Team Providers Care Bore Mill Operator Name Role Phone Marck Brody DO Primary Care Provider Reason for Visit * Reason Comments On Treatment Visit HBOT#19 Encounter Details Date Type Department Care Team (Latest Contact Info) Description 04/16/2014 7:00 AM EST - 04/16/2014 11:59 PM EST Hospital Encounter [facility] [place] [phone] Radiation injury, sequela Social History Tobacco Use Types Packs/Day Years Used Date Smoking Tobacco: Never Smokeless Tobacco: Never Sex and Gender Information Value Date Recorded Sex Assigned at Not on file Gender Identity Not on file Sexual Orientation Not on file documented as of this encounter Last Filed Vital Signs Vital Sign Reading Time Taken Comments Blood Pressure 111/60 04/16/2014 9:07 AM EST Pulse 55 04/16/2014 9:07 AM EST Temperature 36.5 ??C (97.7 ??F) 04/16/2014 7:15 AM ES T Respiratory Rate 16 04/16/2014 7:15 AM EST Oxygen Saturation - - [...] Progress Notes * Mary Littlejohn RN - 04/16/2014 9:44 AM EST Patient Name: Theresa Hollis Patient Age: 43 y.o. Birthdate: 1970 Admit date: 04/16/2014 Attending Physician: No att. providers found INTERVAL HISTORY: Patient denies any discomfort, changes, issues, complaints. Visual Change: My distance vision seems to be improving again. I still have the glasses if I need them. Pain Level: _0____ (0-10 scale) * If greater than 5, document interventions. Education: Discussed vision changes with patient and reminded her that it could take up to a few months for her vision to return to baseline. Theresa Hollis received hyperbaric oxygen treatment today [...] treatment and monitored the patient. HYPERBARIC TREATMENT: Number-19 Planned number of treatments-20/10 Compression Rate: 1.5psi/min Decompression Rate: 2.0 psi/min TROY-2.4 Start Compression Reach Treatment Pressure - TROY Air Break Start Air Break Completed Start Decompression Treatment Completed 0722 0739 0808 0818 0853 0904 Sechrist Chamber # 2 Clinical Practice Guideline [...] or complaints during or after treatment. Patient alert and oriented. Steady gait. Patient assessed and found appropriate to leave the Hyperbaric area at the conclusion of today???s session. Continue HBOT as planned. Next treatment scheduled for 04/17/14. documented in this encounter Plan of Treatment Not on file documented as of this encounter Visit Diagnoses Diagnosis Radiation injury, sequela documented in this encounter Care Teams Bore Mill Operator Relationship Specialty Start Date End Date Marck Brody DO [address] [place] [address] PCP - General 02/08/10 10/12/21 documented as of this encounter
--- OUTSIDE RECORDS SUMMARY | 2023-12-08 20:07 | XMS_ITS | Encounter Summary ---
Author Organization [facility] [place] [address] Care Team Providers Care Oncology Admin Name Role Phone Marck Brody DO Primary Care Provider [phone] Reason for Visit * Reason Comments On Treatment Visit HBOT#1 Encounter Details Date Type Department Care Team (Latest Contact Info) Description 03/16/2014 9:30 AM EST - 03/18/2014 11:59 PM EST [facility] [place] [id number] CLINIC, DR CARLEY Sherman, Marck Love MD [address] [place] [address] [place] [address] Radiation injury, sequela Discharge Disposition: Home Social History Tobacco Use Types Packs/Day Years Used Date Smoking Tobacco: Never Smokeless Tobacco: Never Sex and Gender Information Value Date Recorded Sex Assigned at Not on file Gender Identity Not on file Sexual Orientation Not on file documented as of this encounter Last Filed Vital Signs Vital Sign Reading Time Taken Comments Blood Pressure 100/62 03/16/2014 9:14 AM EST Pulse 63 03/16/2014 9:14 AM EST Temperature 36.2 ??C (97.2 ??F) 03/16/2014 7:55 AM ES T Respiratory Rate 18 03/16/2014 7:55 AM EST Oxygen Saturation - - Inhaled [...] times daily. 100 mL 0 05/06/2014 05/29/2014 vitamin E 400 unit CapsuleIndications:Hype rbaric [...] Progress Notes * Mary Littlejohn RN - 03/16/2014 10:54 AM EST Patient Name: Theresa Hollis Patient Age: 43 y.o. Birthdate: 1970 Admit date: 03/16/2014 Attending Physician: Vilma, Dr Barajas Theresa Hollis was seen in Hyperbaric Medicine for initial assessment, screening and teaching today. Allergies reviewed and Medication List verified with patient. Consent for treatment was signed and witnessed by Mary Littlejohn RN. Patient verbalized she had no questions or concerns at this point. Lung Imaging addressed. [ x ] CXR w/in past year acceptable LOC: x_Alert, x_Oriented, Lungs: x_Clear Pain Level: (0-10 [place] Pain Assessment Tool) 0 Mobility/Fall Risk: Low. Ambulates independently. Gait steady. Vision: Wears glasses for distance vision. Unsure if glasses made of titanium but does not feel shewill require them to watch TV. Without glasses Both Right Left Snellen 20/60 20/60 20/60 Near Vision 20/20 20/25 20/20 _x__ Discussed potential for visual changes during the course of HBOT, the availability of adjustable lens glasses if needed, encouraged Pt. to report any visual changes. Tympanometry: (WNL_x_, ) Left Ear Right Ear Peak Compliance 2.2 ml 0.7 ml Peak Pressure -351 daPa -27 daPa Gradient 12 daPa 71 daPa Ear Canal Volume 1.2 ml 1.1 ml Diabetic:No Nutrition Concerns/ Supplements:Patient has started to take 400 Units of Vitamin E once daily whilereceiving Hbot. Psycho/Social: (Support, community resources, referrals) , lives with . 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 or patient's father will be accompanying patient to treatments. present for teaching. Education/Instructions: _x_Equalizing ear pressure _x_Chamber Safety _x__Chamber communication _x__Temperature changes __x_ Symptoms /Difficulties/Concerns to report tostaff (difficulty clearing ears, ear/sinus pain, difficulty breathing, feelings of claustrophobia, any unusual feelings) Theresa relays that she is receiving Hyperbaric oxygen treatments because I have a loose tooth in the area where I had radiation. I need to have it extracted so I am receiving treatments before and after to help with the healing process. INTERVAL HISTORY: Patient denies any discomfort, issues, complaints. SOB: denies Headaches: denies Cough: due to ...pooling of my secretions...from the radiation, I don't have a cold. Ear Pain:denies Chest Pain: denies Cold symptoms: denies (see above) Consent: signed Pain Level: ___0__ (0-10 scale) * If greater than 5, document interventions. Education: as per Initial Nursing Assessment above. Just prior to treatment, reviewed early and frequent clearing of ears, communication in chamber, reporting any unusual sensations, discomfort, changes, difficulty clearing ears to RN immediately. 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 100% cotton clothing in place. Patient checked for non-approved chamber items. Tympanic membranes checked. No redness or perforation noted. Wax partially obstructing TM, R more than L. Patient assessed and met criteria to proceed with hyperbaric treatment. Safety checklist completed with patient. Grounding strap applied and grounding verified, patient placed in chamber, communications checked. Mary Littlejohn RN/Tamia Snow RN administered the treatment and monitored the patient. HYPERBARIC TREATMENT: Number-1 Planned number of treatments-20/10 Compression Rate: 1.5psi/min Decompression Rate: 2.0 psi/min TROY-2.4 Start Compression Reach Treatment Pressure - TROY Air Break Start Air Break Completed Start Decompression Treatment Completed 0807 0825 0840 0845 0901 0912 Sechrist Chamber # 2 Clinical Practice Guideline for Hyperbaric Oxygen Therapy Prevent and manage for potential problems related to 1.Barotrauma, 2.oxygen toxicity, and 3.Pneumothorax. 4. Situational Problems Assessed: ALL (Barotrauma, Oxygen Toxicity, Pneumothorax, Situational) Problems Present: None, (Barotrauma, Oxygen Toxicity, Pneumothorax, Situational) No issues or complaints during or after treatment. Patient rested comfortably and watched Netflix during treatment. Checked with patient frequently during compression. Pt. Smiling and denied any discomfort, unusual sensations or difficulty equalizing ear pressure. Able to achieve pressure of 2.4 TROY with treatment time of 54 minutes and one, 5 minute air break. Interventions: Per Clinical Practice Guidelines for Hyperbaric Oxygen Therapy through [facility]. No issues or complaints during or after treatment. Alert and oriented. I was fine. Patient assessed and found appropriate to leave the Hyperbaric area at the conclusion of today???s session. Continue HBOT as planned. Next treatment scheduled for 03/17/14 at 0700. documented in this encounter Plan of Treatment Not on file documented as of this encounter Visit Diagnoses Diagnosis Radiation injury, sequela documented in this encounter Care Teams Oncology Admin Relationship Specialty Start Date End Date Marck Brody DO [address] [place] [address] PCP - General 02/08/10 10/12/21 documented as of this encounter
--- OUTSIDE RECORDS SUMMARY | 2023-12-08 20:07 | XMS_ITS | Encounter Summary ---
Author Organization [facility] Address [facility] [place] [address] Care Team Providers Care Environmental Educator Name Role Phone Marck Brody DO Primary Care Provider [phone] Encounter Details Date Type Department Care Team (Late st Contact Info) Description 05/06/2014 11:29 AM EST - 05/06/2014 5:26 PM EST Hospital Encounter [place] [phone] Alfred Vital MD [facility] [place] [address] Discharge Disposition: Home Social History Tobacco Use [...] Reading Time Taken Comments Blood Pressure 116/70 05/06/2014 4:31 PM EST Pulse 76 05/06/2014 4:31 PM EST Temperature 36.8 ??C (98.2 ??F) 05/06/2014 3:54 PM ES T Respiratory Rate 16 05/06/2014 4:31 PM EST Oxygen Saturation 99% 05/06/2014 4:31 PM EST Inhaled Oxygen Concentration - - [...] may be helpful. Most swelling will occur [id number] hours following the procedure. Mouth Rinse: Vigorous [...] can be reached during office hours at [phone]. If you have questions atnight or on weekends, Dr. Vital can be reached at [phone]. Take antibiotics as ordered Ice to left [...] - 05/06/2014 1:52 PM EST Patient Name: Kirt Henley Patient Age: 43 y.o. Birthdate: 1970 Admit date: 05/06/2014 Attending Physician: Alfred Vital MD The patient was seen and examined in the preoperative unit today. I have reviewed and agree with the clinical history, physical exam findings, impressions and plans as described in the original History and Physical Exam note. No new clinically significant changes to patient's health are noted. Kirt is prepared to proceed with the planned surgical intervention as reviewed in detail. documented in this encounter Miscellaneous Notes * Op Note - Alfred Vital MD - 05/06/2014 3:49 PM EST [facility] Operative Note Patient Name: Kirt Henley : [id number] MR#: [id number] Case Date: 05/06/2014 Surgeon: Surgeon(s) and Role: [...] Indications: ORN with loose teeth Procedure Description: Kirt was brought to the operating room, placed [...] (05/06/2014 3:40 PM EST) Final Diagnosis ? [facility] ? Provider: ?? NIELS, ALFRED ?Pt. Name: ?? KIRT HENLEY ? Acc #: ?[id number] ?Pt. ? Col Date: ?? 05/06/2014 ? [...] History: ? _ 05/08/2014 3:19 PM EST [facility] BONE STRUCTURE / Unknown 05/06/2014 3:40 PM EST 05/06/2014 3:40 PM EST BONE STRUCTURE / Unknown 05/06/2014 3:40 PM EST 05/06/2014 3:40 PM EST Alfred Vital MD PATHOLOGY/CYTOLOGY O RDERABLES Performing Organization Address City/State/[facility] Co de Phone Number [facility]ADE [facility] [place] [address] * Specimen to Pathology (surgical or derm) (05/06/2014 3:25 PM EST) AP Specimen 05/06/2014 3:25 PM EST 05/06/2014 3:25 PM EST Narrative KADE MANE - 05/06/2014 3:25 PM EST Specimen requisition ordered. ??Separate Pathology report to follow Alfred Vital MD PATHOLOGY/CYTOLOGY O MARIO Performing Organization Address [facility] Co de Phone Number KADE MANE * Specimen to Pathology (surgical or derm) (05/06/2014 3:18 PM EST) AP Specimen 05/06/2014 3:18 PM EST 05/06/2014 3:18 PM EST Narrative KADE MANE - 05/06/2014 3:18 PM EST Specimen requisition ordered. ??Separate Pathology report to follow Alfred Vital MD PATHOLOGY/CYTOLOGY O MARIO Performing Organization Address [facility] Co de Phone Number KADE MANE documented in this encounter Visit Diagnoses Not on filedocumented in this encounter Active and Recently Administered Medications Times are shown in EST. PRN Medication Order 05/04/2014 05/05/2014 05/06/2014 hydrocortisone 1 % ointment (CANCELED) ONCE PRN, Starting on Sun05/06/14 at 1534, Until Sun05/06/14 at 202, Intra-Operative (Intra-Procedure) 1534 (Given - Provid er: Alfred Vital MD - Comment: small amt on the lips) lidocaine-EPINEPHrine 1 %-1:200,000 injection (CANCELED) ONCE PRN, Starting on Sun05/06/14 at 0100, Until Sun05/06/14 at 202, Intra-Operative (Intra-Procedure), Routine 0100 (Given - Provid er: Alfred Vital MD) documented in this encounter Care Teams Environmental Educator Relationship Specialty Start Date End Date Marck Brody DO [address] [place] [address] PCP - General 02/08/10 10/12/21 documented as of this encounter
--- OUTSIDE RECORDS SUMMARY | 2023-12-08 20:07 | XMS_ITS | Encounter Summary ---
Author Organization [facility] Address [facility] [place] [address] Care Team Providers Care Anvilsmith Name Role Phone Marck Brody DO Primary Care Provider Encounter Details Date Type Department Care Team (Latest Contact Info) Description 01/19/2014 12:04 PM EST - 01/19/2014 1:08 PM EST Hospital Encounter XRay at [address] [place] [phone] History of tongue cancer; Tongue cancer Social History Tobacco Use Types Packs/Day Years Used Date Smoking Tobacco: Never Smokeless Tobacco: Never Sex and Gender Information Value Date Recorded Sex Assigned at Not on file Gender Identity Not on file Sexual Orientation Not on file documented as of this encounter Medications at Time of Discharge Medication Sig Dispensed Refills Start Date End Date cevimeline (EVOXAC) 30 mg capsuleIndications:Tong ue cancer Take 1 capsule by mouth 3 times daily. 90 capsule 12 10/13/2013 10/29/2014 documented as of this encounter Plan of Treatment Not on file documented as of this encounter Procedures Procedure Name Priority Date/Time Associated Diagnosis Comments XR CHEST PA AND LATERAL Routine 01/19/2014 12:15 PM EST History of tongue cancer Tongue cancer documented in this encounter Results * XR chest routine PA & lateral (01/19/2014 12:15 PM EST) Anatomical Region Laterality Modality Chest N/A Radiographic Suzie ging 01/19/2014 12:1 5 PM EST Narrative 01/19/2014 2:05 PM EST Examination CHEST ROUTINE PA+LAT Clinical History History of h/n cancer, eval for lung mets or new lung primary Comparison 02/03/2013. Technique Findings Normal chest x-ray. ??In particular there is no evidence of pulmonary metastatic disease. Impression Procedure Note Paloma Mason MD - 01/19/2014 Examination CHEST ROUTINE PA+LAT Clinical History History of h/n cancer, eval for lung mets or new lung primary Comparison 02/03/2013. Technique Findings Normal chest x-ray. In particular there is no evidence of pulmonarymetastatic disease. Impression Marck Sherman MD IMG DX ORDERABLES documented in this encounter Visit Diagnoses Diagnosis History of tongue cancer Personal history of malignant neoplasm of tongue Tongue cancer Malignant neoplasm of tongue, unspecified site documented in this encounter Care Teams Anvilsmith Relationship Specialty Start Date End Date Marck Brody DO [address] [place] [address] PCP - General 02/08/10 10/12/21 documented as of this encounter
--- OUTSIDE RECORDS SUMMARY | 2023-12-08 20:07 | XMS_ITS | Encounter Summary ---
Author Organization [facility] [place] [address] Care Team Providers Care Computing Tutor Name Role Phone Marck Brody DO Primary Care Provider [phone] Reason for Visit * Reason Comments On Treatment Visit HBOT #17 Encounter Details Date Type Department Care Team (Latest Contact Info) Description 04/13/2014 7:00 AM EST - 04/13/2014 11:59 PM EST Hospital Encounter [facility] [place] [phone] Radiation injury, sequela Social History Tobacco Use Types Packs/Day Years Used Date Smoking Tobacco: Never Smokeless Tobacco: Never Sex and Gender Information Value Date Recorded Sex Assigned at Not on file Gender Identity Not on file Sexual Orientation Not on file documented as of this encounter Last Filed Vital Signs Vital Sign Reading Time Taken Comments Blood Pressure 103/57 04/13/2014 9:05 AM EST Pulse 58 04/13/2014 9:05 AM EST Temperature 36.3 ??C (97.3 ??F) 04/13/2014 7:10 AM ES T Respiratory Rate - [...] Progress Notes * Tamia Snow RN - 04/13/2014 10:29 AM EST Patient Name: Theresa Hollis Patient Age: 43 y.o. Birthdate: 1970 Admit date: 04/13/2014 Attending Physician: No att. providers found INTERVAL [...] verified, patient placed in chamber, communications checked. Jose Coulter RN/Tamia Snow RN administered the treatment and monitored the patient. HYPERBARIC TREATMENT: Number-17 Planned number of treatments-20 prior to dental procedure and 10 after procedure Compression Rate: 1.5psi/min Decompression Rate: 2.0 psi/min TROY-2.4 Start Compression Reach Treatment Pressure - 2.4 TROY Air Break Start Air Break Completed Start Decompression Treatment Completed 0719 0740 0804 0814 0850 0901 Sechrist Chamber # 2 Clinical Practice Guideline for Hyperbaric Oxygen Therapy Prevent and manage for potential problems related to 1.Barotrauma, 2.oxygen toxicity, and 3.Pneumothorax. 4. Situational Problems Assessed: ALL (Barotrauma, Oxygen Toxicity, Pneumothorax, Situational) Problems Present: Some difficulty equalizing the pressure in her left ear. Interventions: Required stopping pressurization 4 times to allow her extra time to use the techniques to equalize ear pressure. She was able to clear her ears successfully, no problem with the right ear. Per Clinical Practice Guidelines for Hyperbaric Oxygen Therapy through [facility]. No complaints during or after treatment. Patient assessed and found appropriate to leave the Hyperbaric area at the conclusion of today???s session. Continue HBOT as planned. Next treatment scheduled for (she has a conflicting appointment tomorrow that was not able to be rescheduled). documented in this encounter Plan of Treatment Not on file documented as of this encounter Visit Diagnoses Diagnosis Radiation injury, sequela documented in this encounter Care Teams Computing Tutor Relationship Specialty Start Date End Date Marck Brody DO [address] [place] [address] PCP - General 02/08/10 10/12/21 documented as of this encounter
--- OUTSIDE RECORDS SUMMARY | 2023-12-08 20:07 | XMS_ITS | Encounter Summary ---
Author Organization [facility] [place] [address] Care Team Providers Care Coffee Roaster Helper Name Role Phone Marck Brody DO Primary Care Provider [phone] Reason for Visit * Reason Comments Advice Only Encounter Details Date Type Department Care Team (Latest Contact Info) Description 01/19/2014 2:30 PM EST Initial [place] [phone] Cuba Mcdonald Jr., MD [facility] [place] [address] Radiation injury, subsequent encounter (Primary Dx) Discharge Disposition: Home Social History Tobacco Use Types Packs/Day Years Used Date Smoking Tobacco: Never Smokeless Tobacco: Never Sex and Gender Information Value Date Recorded Sex Assigned at Not on file Gender Identity Not on file Sexual Orientation Not on file documented as of this encounter Last Filed Vital Signs Vital Sign Reading Time Taken Comments Blood Pressure 120/79 01/19/2014 2:35 PM EST Pulse 86 01/19/2014 2:35 PM EST Temperature - - Respiratory Rate 16 01/19/2014 2:35 PM EST Oxygen Saturation - - Inhaled Oxygen Concentration - - Weight - - Height - - Body Mass Index - - documented in this encounter Patient Instructions * Patient Instructions* Cuba Mcdonald Jr., MD - 01/19/2014 3:21 PM EST Patient given handout on how to clear ears during hyperbaric chamber HYPERBARIC CHAMBER SAFETY For everyone's safety do not bring these items into the hyperbaric chamber: Electronics Lighters Cigarettes Coins/Money Batteries Shoes Newspapers, books, magazines Stockings Matches Metal objects Car keys Jewelry Watches Hand warmers Medications Hearing aids Do not wear any of the following items into the chamber: Any clothing less than 100% cotton Nail macedonian Wigs or hair extenders Lotion or oil Deodorant Hair gel or hair spray Perfume or after shave Make up Dentures Any static producing material or anything else deemed unsafe by this Center PREVENTING EAR TRAUMA DURING HYPERBARIC TREATMENT Injury to the middle ear is a potential side effect of hyperbaric medicine treatment. When pressureoutside the eardrum increases, it causes the eardrum to press against the small bones of the middleear. This feels like the ear is stuffed up or full similar to how your ears feel when you are landing in an airplane, coming down a mountain in a car, or swimming to the bottom of a pool. This also occurs when the hyperbaric chamber is being compressed at the beginning of the treatment. There is a small tube between the middle ear and the back of the throat called the Eustachian tube that allows air to reach the middle ear and relieve the stuffy feeling. Clearing the ears, also known as equalizing, or popping, the ears is a process of letting air through the Eustachian tube into the middle ear so pressure can be equalized on both sides of the eardrum. Some simple, familiar ways to clear your ears are swallowing, yawning, chewing gum, and drinking water. EQUALIZE EARLY AND OFTEN! Instructions of clearing ears when the simple methods fail: 1. Valsalva maneuver--Pinch nostrils together, mouth closed, and gently blow through your nose. 2. Toynbee method--Pinch nostrils together and swallow. 3. Move jaw side to side. DO NOT PERFORM ANY OF THESE MANEUVERS DURING DECOMPRESSION (I.E. AT THE END OF THE TREATMENT WHEN THE PRESSURE IN THE CHAMBER IS BEING RELEASED) Clearing your ears is very important for your comfort. You will feel some pressure in your ears, which will clear when you use the techniques discussed here. SHOULD YOU FEEL PAIN IN YOUR EARS, TELL THE CLINICIAN TO STOP! The clinician will stop the chamber from compressing to give you more time to clear your ears. If you continue to have difficulty clearing your ears, a decongestant may be recommended prior to your treatment. If you still have difficulty equalizing the pressure in your ears, then a referral may be made to an ear doctor (ENT) for evaluation for the placement of ear tubes. documented in this encounter Progress Notes * Cuba Mcdonald Jr., MD - 01/21/2014 12:31 PM EST Section of Occupational and Environmental Medicine Hyperbaric Oxygen Therapy Consultation Theresa Hollis was seen today at the request of Dr. Vital for a hyperbaric medicine consultation. Ms. 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 She was treated with partial glossectomy, chemotherapy, and 66 Gy of external beam radiation therapy. She is cancer free, but the teeth on the left in her mandible were within the radiation field. She now has peridontaldisease on the left, as well as loose teeth. She was seen by Dr. Vital who recommended extractionof the left-sided teeth preceded by hyperbaric oxygen treatment. Patient Active Problem List Diagnosis ??? Radiation injury Has dry mouth/xerostomia, retraction of gums ??? 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 History of tongue cancer ??? Hypothyroidism (acquired) AOO=201 in 06/25. Started on synthroid 25mcg po [...] tube, severe oral pain; excellent functional recovery Current/Recent Doxorubicin Treatment: no History of Bleomycin treatment: no Disulfiram Use: no Current/Recent [place] Treatment: no Sulfamylon use: no Pneumothorax: no Implanted Pacemaker: no Other Implants: no History of Spontaneous Pneumothorax: no History of Seizure Disorder: no Emphysema with CO2 retention: no History of Thoracic Surgery: no History of Surgery for Otosclerosis: no History of Congenital Spherocytosis: no History of Optic Neuritis: no History of Sinus Surgery: no History of Lung Disease: no Congestive Heart Failure or Cardiac Compromise (EF<40%): no General systemic: healthy appearing, thin. Head, face, neck and scalp: s/p partial glossectomy, signs of previous radiation therapy in neck. Nose: normal, no polyps Mouth and pharynx: history of glossectomy, no exposed bone Ears: TMs not visualized due to wax, no perforations Eyes: conjunctiva clear Opthalmoscopic: discs sharp, no lesions Pupils: equal and reactive to light Ocular motility: normal Lungs and chest: clear to percussion and auscultation Heart: S1 and S2 normal, no murmurs Abdomen: no organomegaly, no masses, old PEG scar Assessment: 43 yo woman with a history of radiation therapy to left jaw now needing tooth extractions from this area. Hyperbaric oxygen promotes angiogenesis into previously irradiated areas, which can help to heal wounds in these areas, and to prevent the development of osteoradionecrosis in areaswhere teeth are being extracted. In her case, she has had a significant dose to her jaw (a review of her radiation oncology record shows that the left jaw was in the radiation field). She has no contraindications to hyperbaric therapy, and has had a recent negative chest x-ray. Recommendations: Lio protocol. Hyperbaric Treatment Orders Theresa Hollis Indication(s) for Hyperbaric Oxygen Therapy: Soft tissue radionecrosis/prevention of osteoradionecrosis Prior to initial HBO treatment : Consent Obtained [ ] Date: will be obtained at first treatment Chest X-ray Obtained Yes [ ] No [x ] If ???No?? explain: Has had recent cxr Hyperbaric Treatment Orders (Check all that apply) [x ] 1. Tympanic membranes are to be viewed prior to every treatment and PRN as indicated by signs or symptoms of barotrauma. Notify hyperbaric physician of signs or symptoms of barotrauma. [x ] 2. Obtain tympanogram prior to first hyperbaric treatment and print results. [x ] 3. Obtain vital signs prior to each [...] (37.70 C) or greater, notify hyperbaric physician. [n/a ] 4. For all patients with Diabetes, follow HBO Diabetes Protocol. [x ] 5. If patient exhibits signs or symptoms of sinusitis, shortness of breath, respiratory or cardiac compromise, nausea, vomiting or diarrhea hold treatment and notify hyperbaric physician. [ ] 6. Other: Hyperbaric Oxygen Therapy Orders Pressure: 2.4 TROY Air break: [ x ] 10 minutes mid-way through treatment [ ] Other Length of treatment: [x ] 90 minutes [ ] Other Compression rate: [x ] 1.5 psi/min. [ ] Other Decompression rate: [ x ] 2.0 psi/mis [ ] Other Frequency of treatments: [x ] once a day [ ] Other Number of treatments: [x ] 20 prior to dental procedure, 10 following procedure [ ] 30 prior to dental procedure, 10 following procedure [ ] ____ treatments then re-evaluate for continuation, change or termination of therapy. [ ] Other Informed Consent: Had full discussion of risks and benefits of hyperbaric oxygen therapy in this setting including, but not limited to, oxygen toxicity, seizures, pneumothorax, visual changes, and the promotion of the growth of cataracts. Discussed theoretical risk of promotion of cancer growth if tumor present. 36 minutes of this 60 minute visit was spent discussing the risks and benefits of hyperbaric oxygentherapy. The patient was taken to the hyperbaric room to see the chamber and ask questions about the treatments. documented in this encounter Plan of Treatment Not on file documented as of this encounter Visit Diagnoses Diagnosis Radiation injury, subsequent encounter- Primary documented in this encounter Care Teams Coffee Roaster Helper Relationship Specialty Start Date End Date Marck Brody DO [address] [place] [address] PCP - General 02/08/10 10/12/21 documented as of this encounter
--- OUTSIDE RECORDS SUMMARY | 2023-12-08 20:07 | XMS_ITS | Encounter Summary ---
Author Organization [facility] [place] [address] Care Team Providers Care Excavating Supervisor Name Role Phone Marck Brody DO Primary Care Provider Encounter Details Date Type Department Care Team (Latest Contact Info) Description 03/23/2014 8:34 AM EST - 03/23/2014 11:59 PM EST Hospital Encounter Hematology [place] [address] Marck Sherman MD [address] [place] [address] [place] [address] History of tongue cancer; Hypothyroidism (acquired); Acquired hypothyroidism Discharge Disposition: Home Social History Tobacco Use [...] r Schedule TSH Lab Routine Hypothyroidism (acquired) 1 Occurrences starting 03/23/2014 until 03/23/2014 TSH Lab Routine Acquired hypothyroidism 1 Occurrences starting 03/23/2014 until 03/23/2014 documented as of this encounter Procedures Procedure Name Priority Date/Time Associated Diagnosis Comments TSH Routine 03/23/2014 8:40 AM EST History of tongue cancer Hypothyroidism (acquired) documented in this encounter Results * TSH (03/23/2014 8:40 AM EST) Thyroid Stimulating Hormone 3.00 0.27 - 4.20 mcIU/mL KADE MANE Blood specimen (specimen) 03/23/2014 8:40 AM EST 03/23/2014 8:44 AM EST Narrative Resulting Agency Comment Spec In Lab Marck Sherman MD CHEMISTRY ORDERABLES KADE MANE documented in this encounter Visit Diagnoses Diagnosis History of tongue cancer Personal history of malignant neoplasm of tongue Hypothyroidism (acquired) Unspecified hypothyroidism Acquired hypothyroidism Unspecified hypothyroidism documented in this encounter Care Teams Excavating Supervisor Relationship Specialty Start Date End Date Marck Brody DO [address] [place] [address] PCP - General 02/08/10 10/12/21 documented as of this encounter
--- OUTSIDE RECORDS SUMMARY | 2023-12-08 20:07 | XMS_ITS | Encounter Summary ---
Author Organization [place] [address] Care Team Providers Care Professor Of Literature Name Role Phone Marck Brody DO Primary Care Provider Encounter Details Date Type Department Care Team (Late st Contact Info) Description 01/19/2014 1:08 PM EST - 01/19/2014 11:59 PM EST Hospital [place] [phone] CLINIC, Marck Edwards, DO [address] [place] [address] Discharge Disposition: Home Social History Tobacco Use [...] Date/Time Associated Diagnosis Comments MAMMO SCREENING CAD BILATERAL Routine 01/19/2014 1:31 PM EST documented in this encounter Results * Mammo digital bilateral Screening with CAD (01/19/2014 1:31 PM EST) Anatomical Region Laterality Modality Breast Bilateral Mammography 01/19/2014 1:31 PM EST Narrative 01/20/2014 11:13 AM EST Reason for Exam: Screening ?? Technique: Craniocaudal (CC) and Medio-lateral Oblique (MLO) views of both breasts obtained with direct digital capture. In addition to routine 2-D imaging, this exam was also performed with 3-D Tomographic Imaging (MLO and CC). ?? The exam was evaluated by CAD version 8.3.17. ?? Findings: ?? This is a negative mammogram (ACR Category 1). There is a stable fibroglandular pattern without significant change from prior studies. There is no mammographic evidence of cancer. The breasts are heterogeneously dense which limits mammographic sensitivity for the detection of malignancy. ?? CONCLUSION: This is a NEGATIVE mammogram (ACR Category 1). ?? Routine screening mammography is recommended with the frequency dependent upon the patients age and breast cancer risk factors. A letter has been sent to this patient by the breast imaging center. ?? Procedure Note Ramesh Herrera MD - 01/20/2014 Reason for Exam: Screening Technique: Craniocaudal (CC) and Medio-lateral Oblique (MLO) views of both breasts obtained with direct digital capture. In addition to routine 2-D imaging, this exam was also performed with 3-D Tomographic Imaging (MLOand CC). The exam was evaluated by CAD version 8.3.17. Findings: This is a negative mammogram (ACR Category 1). There is a stablefibroglandular pattern without significant change from prior studies. There is no mammographic evidence of cancer. The breasts areheterogeneously dense which limits mammographic sensitivity for the detection ofmalignancy. CONCLUSION: This is a NEGATIVE mammogram (ACR Category 1). Routine screening mammography is recommended with the frequency dependentupon the patients age and breast cancer risk factors. A letter has been sent to this patient by the breast imaging center. Marck DYE MAMMO ORDERABLES documented in this encounter Visit Diagnoses Not on filedocumented in this encounter Care Teams Professor Of Literature Relationship Specialty Start Date End Date Marck Brody DO [address] [place] [address] [address] [facility] [address] [place] [address] PCP - General 02/08/10 10/12/21 documented as of this encounter
--- OUTSIDE RECORDS SUMMARY | 2023-12-08 20:07 | XMS_ITS | Encounter Summary ---
Author Organization [place] [address] Care Team Providers Care Cash Management Officer Name Role Phone Marck Brody DO Primary Care Provider Reason for Visit * Reason Comments On Treatment Visit HBOT#2 Encounter Details Date Type Department Care Team (Latest Contact Info) Description 03/17/2014 6:58 AM EST - 03/17/2014 11:59 PM EST [facility] [place] [phone] Radiation injury, sequela Social History Tobacco Use Types Packs/Day Years Used Date Smoking Tobacco: Never Smokeless Tobacco: Never Sex and Gender Information Value Date Recorded Sex Assigned at Not on file Gender Identity Not on file Sexual Orientation Not on file documented as of this encounter Last Filed Vital Signs Vital Sign Reading Time Taken Comments Blood Pressure 110/70 03/17/2014 9:12 AM EST Pulse 59 03/17/2014 9:12 AM EST Temperature 36.3 ??C (97.3 ??F) 03/17/2014 7:17 AM ES T Respiratory Rate 16 03/17/2014 7:17 AM EST Oxygen Saturation - - Inhaled [...] Progress Notes * Mary Littlejohn RN - 03/17/2014 8:55 AM EST Patient Name: Theresa Hollis Patient Age: 43 y.o. Birthdate: 1970 Admit date: 03/17/2014 Attending Physician: No att. providers found INTERVAL HISTORY: Patient denies any discomfort, complaints. The mucous drainage was much better after my treatment yesterday until mid- afternoon, then it increased again and was a bit more. Pt. Stated. Patient also reported she has to sleep on her right side and she has issues with wax build up on that side today. SOB:Denies Headaches: Denies Cough: usual cough from mucous drainage r/t Radiation Ear Pain: Denies Chest Pain: Denies Cold symptoms: Denies Pain Level: __0___ (0-10 scale) * If greater than 5, document interventions. Education: Reinforced early and frequent clearing of ears. Reviewed techniques. Reminded to report any changes or discomfort or unusual sensations to RN. 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 100% cotton clothing in place. Patient checked for non-approved chamber items. Tympanic membranes checked. Unable to visualize right TM d/t wax build-up. No redness of canal. No redness, bubbles or perforation noted left ear. Patient assessed and met criteria to proceed with hyperbaric treatment. Safety checklist completed with patient. Grounding strap applied and grounding verified, patient placed in chamber, communications checked. Mary Littlejohn RN/Tamia Snow RN administered the treatment and monitored the patient. HYPERBARIC TREATMENT: Number-2 Planned number of treatments-20/10 Compression Rate: 1.5psi/min Decompression Rate: 2.0 psi/min TROY-1.63 Start Compression Reach Treatment Pressure - TROY Air Break Start Air Break Completed Start Decompression Treatment Completed 0724 0747 0808 0819 0854 0906 Sechrist Chamber #2 Clinical Practice Guideline for Hyperbaric Oxygen Therapy Prevent and manage for potential problems related to 1.Barotrauma, 2.oxygen toxicity, and 3.Pneumothorax. 4. Situational Problems Assessed: ALL (Barotrauma, Oxygen Toxicity, Pneumothorax, Situational) Problems Present: Barotrauma Patient experienced discomfort pinching in both ears at 1.65 TROY. Able to equalize ear pressure and experienced relief when pressure backed off to 1.50 TROY. Resumed compression slowly but had same discomfort at 1.65 TROY. Decreased pressure with immediate relief and able to equalize ear pressure easily. Patient comfortable and ear pressure equalized at 1.63. Maintained pressure at 1.63ATA for remainder of treatment without complaints, discomfort, issues. Following treatment, ears irrigated with ear wash system. Small amount of wax removed. No redness, blisters or perforation noted. Interventions: Per Clinical Practice Guidelines for Hyperbaric Oxygen Therapy through [facility]. No issues or complaints during or after treatment. Patient will start using ear wax softening dropstonight and will take a decongestant prior to her next treatment tomorrow. Patient assessed and found appropriate to leave the Hyperbaric area at the conclusion of today???s session. Continue HBOT as planned. Next treatment scheduled for 03/18/14. documented in this encounter Plan of Treatment Not on file documented as of this encounter Visit Diagnoses Diagnosis Radiation injury, sequela documented in this encounter Care Teams Cash Management Officer Relationship Specialty Start Date End Date Marck Brody DO [address] [place] [address] PCP - General 02/08/10 10/12/21 documented as of this encounter
--- OUTSIDE RECORDS SUMMARY | 2023-12-08 20:07 | XMS_ITS | Encounter Summary ---
Author Organization [facility] [place] [address] Care Team Providers Care Coating And Baking Operator Name Role Phone Marck Brody DO Primary Care Provider [phone] Reason for Visit * Reason Comments On Treatment Visit HBOT # 9 Encounter Details Date Type Department Care Team (Latest Contact Info) Description 04/01/2014 7:00 AM EST - 04/01/2014 11:59 PM EST Hospital Encounter [facility] [place] [place] [phone] Radiation injury, sequela Social History Tobacco Use Types Packs/Day Years Used Date Smoking Tobacco: Never Smokeless Tobacco: Never Sex and Gender Information Value Date Recorded Sex Assigned at Not on file Gender Identity Not on file Sexual Orientation Not on file documented as of this encounter Last Filed Vital Signs Vital Sign Reading Time Taken Comments Blood Pressure 121/76 04/01/2014 9:20 AM EST Pulse 81 04/01/2014 9:20 AM EST Temperature 36.6 ??C (97.9 ??F) 04/01/2014 7:10 AM ES T Respiratory Rate - [...] Progress Notes * Tamia Snow RN - 04/01/2014 8:35 AM EST Patient Name: Theresa Hollis Patient Age: 43 y.o. Birthdate: 1970 Admit date: 04/01/2014 Attending Physician: No att. providers found INTERVAL [...] verified, patient placed in chamber, communications checked. Akira Horta RP/Tamia Snow RN administered the treatment and monitored the patient. HYPERBARIC TREATMENT: Number-9 Planned number of treatments-20 prior to dental procedure and 10 after dental procedure Compression Rate: 1.5psi/min Decompression Rate: 2.0 psi/min TROY-2.4 Start Compression Reach Treatment Pressure - 2.4 TROY Air Break Start Air Break Completed Start Decompression Treatment Completed 0733 [id number] 0818 0828 0904 0915 Sechrist Chamber # 2 Clinical Practice Guideline for Hyperbaric Oxygen Therapy Prevent and manage for potential problems related to 1.Barotrauma, 2.oxygen toxicity, and 3.Pneumothorax. 4. Situational Problems Assessed: ALL (Barotrauma, Oxygen Toxicity, Pneumothorax, Situational) Problems Present: Had some difficulty equalizing the pressure in her left ear today. She was able to equalize the pressure with frequent stopping of chamber compression to allow extra time to clear the ear. After reaching 1.8ATA she had no further difficulty with the ear. Interventions: Per Clinical Practice Guidelines for Hyperbaric Oxygen Therapy through [facility]. No complaints during or after treatment. Patient assessed and found appropriate to leave the Hyperbaric area at the conclusion of today???s session. Continue HBOT as planned. Next treatment scheduled for tomorrow . documented in this encounter Plan of Treatment Not on file documented as of this encounter Visit Diagnoses Diagnosis Radiation injury, sequela documented in this encounter Care Teams Coating And Baking Operator Relationship Specialty Start Date End Date Marck Brody DO [address] [place] [address] [address] [place] [address] PCP - General 02/08/10 10/12/21 documented as of this encounter
--- OUTSIDE RECORDS SUMMARY | 2023-12-08 20:07 | XMS_ITS | Encounter Summary ---
Author Organization [facility] [place] [address] Care Team Providers Care Freelance Writer Name Role Phone Marck Brody DO Primary Care Provider [phone] Reason for Visit * Reason Comments On Treatment Visit HBOT #24 Encounter Details Date Type Department Care Team (Latest Contact Info) Description 05/12/2014 7:00 AM EST - 05/12/2014 11:59 PM EST Hospital Encounter [facility] [place] [phone] Radiation injury, sequela Social History Tobacco Use [...] Sign Reading Time Taken Comments Blood Pressure 111/66 05/12/2014 9:25 AM EST Pulse 65 05/12/2014 9:25 AM EST Temperature 36.6 ??C (97.9 ??F) 05/12/2014 7:15 AM ES T Respiratory Rate - [...] Progress Notes * Tamia Snow RN - 05/12/2014 8:16 AM EST Patient Name: Theresa Hollis Patient Age: 43 y.o. Birthdate: 1970 Admit date: 05/12/2014 Attending Physician: No att. providers found INTERVAL HISTORY: Patient denies any discomfort, changes, issues, complaints. Wound: She feels her gums are healing well, no issues with the area. Theresa Hollis received hyperbaric oxygen treatment today [...] treatment and monitored the patient. HYPERBARIC TREATMENT: Number-24 Planned number of treatments-30 - 20 prior to dental procedure and 10 after the procedure Compression Rate: 1.5psi/min Decompression Rate: 2.0 psi/min TROY-2.4 Start Compression Reach Treatment Pressure - 2.4 TROY Air Break Start Air Break Completed Start Decompression Treatment Completed 0722 0742 0826 0836 0911 0923 Sechrist Chamber # 1 Clinical Practice Guideline for Hyperbaric Oxygen Therapy Prevent and manage for potential problems related to 1.Barotrauma, 2.oxygen toxicity, and 3.Pneumothorax. 4. Situational Problems Assessed: ALL (Barotrauma, Oxygen Toxicity, Pneumothorax, Situational) Problems Present:difficulty equalizing pressure in ears, espically the right ear. Interventions: Per Clinical Practice Guidelines for Hyperbaric Oxygen Therapy through [facility]. Required several stops during compression to allow time for her to equalize the pressure, she was able to do this with the extra time. No complaints during or after treatment. Patient assessed and found appropriate to leave the Hyperbaric area at the conclusion of today???s session. Continue HBOT as planned. Next treatment scheduled for tomorrow, May 13. documented in this encounter Plan of Treatment Not on file documented as of this encounter Visit Diagnoses Diagnosis Radiation injury, sequela documented in this encounter Care Teams Freelance Writer Relationship Specialty Start Date End Date Marck Brody DO [address] [place] [address] PCP - General 02/08/10 10/12/21 documented as of this encounter
--- OUTSIDE RECORDS SUMMARY | 2023-12-08 20:08 | XMS_ITS | Encounter Summary ---
Author Organization [facility] [place] [address] Care Team Providers Care Arts Education Teacher Name Role Phone Marck Brody DO Primary Care Provider Encounter Details Date Type Department Care Team (Late st Contact Info) Description 08/25/2010 1:35 PM EDT - 08/25/2010 11:59 PM EDT Hospital [place] [phone] CLINIC, Marck Edwards, DO [address] [place] [address] Discharge Disposition: Home Social History Tobacco Use Types Packs/Day Years Used Date Smoking Tobacco: Never Sex and Gender Information Value Date Recorded Sex Assigned at Not on file Gender Identity Not on file Sexual Orientation Not on file documented as of this encounter Medications at Time of Discharge Medication Sig Dispensed Refills Start Date End Date levothyroxine (SYNTHROID) 125 mcg tabletIndications:Hypot hyroidism Take 1 tablet by mouth daily. 30 tablet 12 08/25/2010 06/29/2011 cevimeline (EVOXAC) 30 mg capsule Take 1 capsule by mouth 3 times daily. 90 capsule 12 08/25/2010 08/25/2011 LORazepam (ATIVAN) 1 mg tablet 1 MG = 1 Tablet(s), PO, Twice daily PRN 01/27/2010 06/29/2011 documented as of this encounter Plan of Treatment Not on file documented as of this encounter Procedures Procedure Name Priority Date/Time Associated Diagnosis Comments MAMMO SCREENING CAD BILATERAL Routine 08/25/2010 1:58 PM EDT documented in this encounter Results * MAMMO DIGITAL BILATERAL SCREENING WITH CAD (08/25/2010 1:58 PM EDT) Anatomical Region Laterality Modality Breast Bilateral Mammography 08/25/2010 1:58 PM EDT Narrative 08/29/2010 5:16 PM EDT ? BILATERAL MAMMOGRAPHY ?? REASON FOR EXAM: Screening ?? TECHNIQUE: Cranio-caudal (CC) and mediolateral oblique (MLO) views of both breasts obtained with direct digital capture. The exam was evaluated by CAD Version 8.3.17. ?? FINDINGS: This is a negative mammogram (ACR Category 1). There is a stable fibroglandular pattern without significant change as compared to prior studies. There is no mammographic evidence of cancer. ? The breasts are extremely dense which greatly limits the mammographic sensitivity for the detection of malignancy. ? CONCLUSION ?? This is a NEGATIVE mammogram (ACR Category 1). Routine screening mammography is recommended with the frequency dependent on the patient's age and breast cancer risk factors. ?? A letter has been sent to this patient [facility]. Procedure Note Luyc Lal MD - 08/29/2010 BILATERAL MAMMOGRAPHY REASON FOR EXAM: Screening TECHNIQUE: Cranio-caudal (CC) and mediolateral oblique (MLO) views of both breasts obtained with direct digital capture. The exam was evaluated byCAD Version 8.3.17. FINDINGS: This is a negative mammogram (ACR Category 1). There is a stable fibroglandular pattern without significant change as compared to priorstudies. There is no mammographic evidence of cancer. The breasts are extremely dense which greatly limits the mammographic sensitivity for the detection of malignancy. CONCLUSION This is a NEGATIVE mammogram (ACR Category 1). Routine screeningmammography is recommended with the frequency dependent on the patient's age and breastcancer risk factors. A letter has been sent to this patient by the [facility]. Marck DYE MAMMO ORDERABLES documented in this encounter Visit Diagnoses Not on filedocumented in this encounter Care Teams Arts Education Teacher Relationship Specialty Start Date End Date Marck Brody DO [address] [place] [address] PCP - General 02/08/10 10/12/21 documented as of this encounter
--- OUTSIDE RECORDS SUMMARY | 2023-12-08 20:08 | XMS_ITS | Encounter Summary ---
Author Organization [place] [address] Care Team Providers Care Form Setter/Driver Name Role Phone Marck Brody DO Primary Care Provider Encounter Details Date Type Department Care Team (Late st Contact Info) Description 03/03/2013 Orders Only Hematology [place] [address] Marck Sherman MD [address] [place] [address] [place] [address] Hypothyroidism (acquired) (Primary Dx) Social History Tobacco Use Types Packs/Day Years Used Date Smoking Tobacco: Never Smokeless Tobacco: Never Sex and Gender Information Value Date Recorded Sex Assigned at Not on file Gender Identity Not on file Sexual Orientation Not on file documented as of this encounter Plan of Treatment Not on file documented as of this encounter Visit Diagnoses Diagnosis Hypothyroidism (acquired)- Primary Unspecified hypothyroidism documented in this encounter Care Teams Form Setter/Driver Relationship Specialty Start Date End Date Marck Broyd DO [address] [place] [address] PCP - General 02/08/10 10/12/21 documented as of this encounter
--- OUTSIDE RECORDS SUMMARY | 2023-12-08 20:08 | XMS_ITS | Encounter Summary ---
[place] [address] Care Team Providers Care Cultural Centre Manager Name Role Phone Marck Brody DO Primary Care Provider [phone] Reason for Visit * Reason Onset Date Comments Medical Care Coordination 03/03/2013 Encounter Details Date Type Department Care Team (Late st Contact Info) Description 03/03/2013 Telephone Hematology [place] [address] Neo Sherman RN Medical Care Coordination Social History Tobacco Use Types Packs/Day Years Used Date Smoking Tobacco: Never Smokeless Tobacco: Never Sex and Gender Information Value Date Recorded Sex Assigned at Not on file Gender Identity Not on file Sexual Orientation Not on file documented as of this encounter Miscellaneous Notes * Telephone Encounter - Neo Sherman RN - 03/06/2013 4:58 PM EST Addendum 03/05/13: Incoming phone call from patient: Theresa called to get her TSH results. She can be reached at either her home number [phone] or her cell number [phone]. Returned call to patient: TSH 1.48 today, within normal limits. Asked patient to call our office at [phone] in the event of questions or concerns. * Telephone Encounter - Neo Sherman RN - 03/03/2013 2:20 PM EST Call placed to patient to schedule lab visit at [facility] when it is convenient for her in the next couple of weeks to have TSH drawn. Asked patient to call our office at [phone] in the event of questions or concerns. Addendum 1600: Pt returned call to us - she gets her labs drawn at [facility], not [facility]. Call placed to lab at [facility] to confirm. New orders faxed to their lab at [phone]. documented in this encounter Plan of Treatment Not on file documented as of this encounter Visit Diagnoses Not on filedocumented in this encounter Care Teams Cultural Centre Manager Relationship Specialty Start Date End Date Marck Brody DO [address] [place] [address] PCP - General 02/08/10 10/12/21 documented as of this encounter
--- OUTSIDE RECORDS SUMMARY | 2023-12-08 20:08 | XMS_ITS | Encounter Summary ---
Author Organization [facility] [place] [address] Care Team Providers Care Manager Operations Research Name Role Phone Marck Brody DO Primary Care Provider Reason for Visit * Reason Onset Date Comments Medication Refill 09/16/2012 Encounter Details Date Type Department Care Team (Late st Contact Info) Description 09/16/2012 Refill [place] [phone] Yudy Jamison, [place] [address] Social History Tobacco Use Types Packs/Day Years [...] filedocumented in this encounter Care Teams Manager Operations Research Relationship Specialty Start Date End Date Marck Brody DO [address] [place], [place] [address] PCP - General 02/08/10 10/12/21 documented as of this encounter
--- OUTSIDE RECORDS SUMMARY | 2023-12-08 20:08 | XMS_ITS | Encounter Summary ---
Author Organization [facility] Address [facility] [place] [address] Care Team Providers Care Rn Obgyn Name Role Phone Marck Brody DO Primary Care Provider Encounter Details Date Type Department Care Team (Late st Contact Info) Description 02/03/2013 8:52 AM EST - 02/03/2013 11:59 PM [facility] [[email or web address] Hospital Encounter XRay at [facility] [address] [place] [address] Tongue cancer Social History Tobacco Use Types Packs/Day Years Used Date Smoking Tobacco: Never Smokeless Tobacco: Never Sex and Gender Information Value Date Recorded Sex Assigned at Not on file Gender Identity Not on file Sexual Orientation Not on file documented as of this encounter Medications at Time of Discharge Medication Sig Dispensed Refills Start Date End Date levothyroxine (SYNTHROID) 88 mcg tabletIndications:Hypot hyroidism Take 1 tablet by mouth daily. 30 tablet 12 01/21/2013 01/19/2014 cevimeline (EVOXAC) 30 mg capsule Take 1 capsule by mouth 3 times daily. 90 capsule 12 09/16/2012 10/13/2013 documented as of this encounter Plan of Treatment Not on file documented as of this encounter Procedures Procedure Name Priority Date/Time Associated Diagnosis Comments XR CHEST PA AND LATERAL Routine 02/03/2013 9:01 AM EST Tongue cancer documented in this encounter Results * XR chest routine PA & lateral (02/03/2013 9:01 AM EST) Anatomical Region Laterality Modality Chest N/A Radiographic Suzie ging 02/03/2013 9:01 AM EST Narrative 02/03/2013 11:24 AM EST Examination CHEST ROUTINE PA+LAT Clinical History history of tongue Ca, eval for mets or new lung primary Comparison Chest radiograph on 01/18/2012. ?? Technique PA and lateral chest radiograph. Findings The lungs are clear without nodular opacity, consolidation, or pulmonary vascular congestion. No pneumothorax or pleural effusion. The mediastinum is normal in contour. ??The heart is normal in size. Normal bony thorax. ??There are postsurgical changes in the left neck. There is air in the stomach, similar to prior study. ?? Impression ? 1. No evidence of lung metastasis. ? 2. Postsurgical changes in the left neck. Film and interpretation reviewed by the attending Procedure Note Iqra Fish MD - 02/03/2013 Examination CHEST ROUTINE PA+LAT Clinical History history of tongue Ca, eval for mets or new lung primary Comparison Chest radiograph on 01/18/2012. Technique PA and lateral chest radiograph. Findings The lungs are clear without nodular opacity, consolidation, or pulmonary vascular congestion. No pneumothorax or pleural effusion. The mediastinumis normal in contour. The heart is normal in size. Normal bony thorax.There are postsurgical changes in the left neck. There is air in the stomach,similar to prior study. Impression 1. No evidence of lung metastasis. 2. Postsurgical changes in the left neck. Film and interpretation reviewed by the attending Marck Sherman MD IMG DX ORDERABLES documented in this encounter Visit Diagnoses Diagnosis Tongue cancer Malignant neoplasm of tongue, unspecified site documented in this encounter Care Teams Rn Obgyn Relationship Specialty Start Date End Date Marck Brody DO [address] [facility] [address] [place] [address] PCP - General 02/08/10 10/12/21 documented as of this encounter
--- OUTSIDE RECORDS SUMMARY | 2023-12-08 20:08 | XMS_ITS | Encounter Summary ---
Author Organization [facility] [place] [address] Care Team Providers Care Surgical Assistant Name Role Phone Marck Brody DO Primary Care Provider Encounter Details Date Type Department Care Team (Latest Contact Info) Description 02/03/2013 8:32 AM EST - 02/03/2013 11:59 PM [facility] Hospital [place] [phone] Francisco Cervantes MD [facility] [address] Tongue cancer; Anemia Discharge Disposition: Home Social History Tobacco Use [...] Procedure Name Priority Date/Time Associated Diagnosis Comments FOLATE, SERUM Routine 02/03/2013 8:47 AM EST Tongue cancer Anemia VITAMIN B12 Routine 02/03/2013 8:47 AM EST Tongue cancer Anemia documented in this encounter Results * Vitamin B12 (02/03/2013 8:47 AM EST) Vitamin B12 444 207 - 974 pg/mL [facility] Blood specimen (specimen) 02/03/2013 8:47 AM EST 02/03/2013 8:54 AM EST Narrative Resulting Agency Comment Spec In Lab Francisco Cervantes MD CHEMISTRY ORDERABLES Performing Organization Address [facility] Co de Phone Number [facility] * Folate, serum (02/03/2013 8:47 AM EST) Folate 15.0 4.6 - 34.8 ng/mL [facility] Blood specimen (specimen) 02/03/2013 8:47 AM EST 02/03/2013 8:54 AM EST Narrative Resulting Agency Comment Spec In Lab Francisco Cervantes MD CHEMISTRY ORDERABLES Performing Organization Address [facility] Co de Phone Number [facility] documented in this encounter Visit Diagnoses Diagnosis Tongue cancer Malignant neoplasm of tongue, unspecified site Anemia Anemia, unspecified documented in this encounter Care Teams Surgical Assistant Relationship Specialty Start Date End Date Marck Brody DO [address] [place] [address] [address] [place] [address] PCP - General 02/08/10 10/12/21 documented as of this encounter
--- OUTSIDE RECORDS SUMMARY | 2023-12-08 20:08 | XMS_ITS | Encounter Summary ---
Author Organization [facility] [place] [address] Care Team Providers Care Advertising Photographer Name Role Phone Marck Brody DO Primary Care Provider Encounter Details Date Type Department Care Team (Latest Contact Info) Description 01/18/2012 11:13 AM EDT - 01/18/2012 11:59 PM EDT Hospital [place] [address] Dar Turner MD [facility] [place] [address] Hypothyroidism Discharge Disposition: Home Social History Tobacco Use Types Packs/Day Years Used Date Smoking Tobacco: Never Smokeless Tobacco: Never Sex and Gender Information Value Date Recorded Sex Assigned at Not on file Gender Identity Not on file Sexual Orientation Not on file documented as of this encounter Medications at Time of Discharge Medication Sig Dispensed Refills Start Date End Date cevimeline (EVOXAC) 30 mg capsule Take 1 capsule by mouth 3 times daily. 90 capsule 12 08/25/2011 09/16/2012 levothyroxine (SYNTHROID) 112 mcg tabletIndications:Hypot hyroidism Take 1 tablet by mouth daily. 30 tablet 12 06/29/2011 07/04/2012 documented as of this encounter Plan of Treatment Not on file documented as of this encounter Visit Diagnoses Diagnosis Hypothyroidism Unspecified hypothyroidism documented in this encounter Care Teams Advertising Photographer Relationship Specialty Start Date End Date Marck Brody DO [address] [place] [address] PCP - General 02/08/10 10/12/21 documented as of this encounter
--- OUTSIDE RECORDS SUMMARY | 2023-12-08 20:08 | XMS_ITS | Encounter Summary ---
Author Organization [facility] Address [address] [facility] [place] [address] Care Team Providers Care Ceramic Engineer Name Role Phone Marck Brody DO Primary Care Provider [phone] Encounter Details Date Type Department Care Team (Late st Contact Info) Description 12/22/2010 10:33 AM EDT - 12/22/2010 10:45 AM EDT Hospital Encounter XRay at [facility] [address] [place] [address] Tongue cancer Social History Tobacco Use Types [...] Comments XR CHEST PA AND LATERAL Routine 12/22/2010 10:39 AM EDT Tongue cancer documented in this encounter Results * XR chest routine PA & lateral (12/22/2010 10:39 AM EDT) Anatomical Region Laterality Modality Chest N/A Radiographic Suzie ging 12/22/2010 10:3 9 AM EDT Impressions 12/22/2010 1:33 PM EDT IMPRESSION: ?? No evidence of pulmonary metastasis. Narrative 12/22/2010 1:33 PM EDT PA AND LATERAL CHEST, 12/22/10: ?? HISTORY: ??Head and neck cancer, followup screening for disease recurrence. ?? COMPARISON: ??Chest CT, 05/18/09, and portable chest x-ray, 10/30/06. ?? TECHNIQUE: ??PA and lateral views of the chest were obtained. ?? FINDINGS: ??The cardiomediastinal silhouette is within normal limits. ??No pulmonary vasculature congestion. ??The lungs are clear without evidence of focal airspace consolidation, suspicious pulmonary nodules, effusions, or pneumothoraces. ??The stomach is filled with air. ?? Procedure Note Bia Woodson MD - 12/22/2010 PA AND LATERAL CHEST, 12/22/10: HISTORY: Head and neck cancer, followup screening for disease recurrence. COMPARISON: Chest CT, 05/18/09, and portable chest x-ray, 10/30/06. TECHNIQUE: PA and lateral views of the chest were obtained. FINDINGS: The cardiomediastinal silhouette is within normal limits. No pulmonary vasculature congestion. The lungs are clear without evidence of focal airspace consolidation, suspicious pulmonary nodules, effusions, or pneumothoraces. The stomach is filled with air. IMPRESSION IMPRESSION: No evidence of pulmonary metastasis. Francisco Cervantes MD IMG DX ORDERABLES documented in this encounter Visit Diagnoses Diagnosis Tongue cancer Malignant neoplasm of tongue, unspecified site documented in this encounter Care Teams Ceramic Engineer Relationship Specialty Start Date End Date Marck Brody DO [address] [place] [address] PCP - General 02/08/10 10/12/21 documented as of this encounter
--- OUTSIDE RECORDS SUMMARY | 2023-12-08 20:08 | XMS_ITS | Encounter Summary ---
Author Organization [facility] [place] [address] Care Team Providers Care Jig Grinder Name Role Phone Ronn, Marck VALENTIN Primary Care Provider [phone] Reason for Visit * Reason Comments Follow-up 1 year, No concerns. Does have wax in ears tho. Encounter Details Date Type Department Care Team (Late st Contact Info) Description 02/03/2013 10:15 AM EST Follow-[place] [phone] Toño Cervantes PA [facility] [place] [address] Impacted zeynep (Primary Dx); H/O tongue cancer Discharge Disposition: Home Social History Tobacco Use Types Packs/Day Years Used Date Smoking Tobacco: Never Smokeless Tobacco: Never Sex and Gender Information Value Date Recorded Sex Assigned at Not on file Gender Identity Not on file Sexual Orientation Not on file documented as of this encounter Last Filed Vital Signs Vital Sign Reading Time Taken Comments Blood Pressure 114/64 02/03/2013 10:31 AM EST Pulse 81 02/03/2013 10:31 AM EST Temperature - - Respiratory Rate - - Oxygen Saturation - - Inhaled Oxygen Concentration - - Weight 48.5 kg (107 lb) 02/03/2013 10:31 AM EST Height 158.8 cm (5' 2.5) 02/03/2013 10:31 AM ES T Body Mass Index 19.26 02/03/2013 10:31 AM EST documented in this encounter Progress Notes * Toño Cervantes PA - 02/03/2013 11:08 AM EST [facility] Follow up Note: Theresa Hollis is 42 years of age and is being seen in follow up for the following: Primary site: Left lateral tongue Stage: [id number] Surgery(ies): 10/31/06 - Hemiglossectomy, left neck dissection 1-5, skin graft, allograft Radiation: TREATMENT STARTED: 11/28/06 TREATMENT COMPLETED: 01/14/07 TREATMENT: The total maximum dose was 6600 cGy in 33 fractions. Volume reductions were instituted at 5400 cGy in 30 fractions & 6000 cGy in 30 fractions. Chemotherapy: Concurrent cisplatin She also has complaint of bilateral fluctuating tinnitus with recent subjective sense of decrease in hearing, this is thought to be secondary to cerumen impaction. Exam with the operating microscopy revealed bilateral cerumen impaction which was removed with loop, alligator forceps and suction. Both TM's were visualized and found to be translucent without evidence of middle ear pathology. She found subjective improvement in her hearing sensitivity. She feels that her other symptoms are stable in relation to her history of tongue cancer, and has no concerns over this past year. Oral cavity exam: The tongue demonstrate surgical change. There is no evidence of recurrent leukoplakia or mucosal lesion of the residual tongue. The buccal mucosa, buccal gutters, palate and gingivaall appear normal. Procedure note: Fiberoptic Laryngoscopy was performed under topical lidocaine and privine. This was performed through the left nostril. No intranasal pathology was identified. The nasopharynx oropharynx and hypopharynx were nonremarkable. Exam of the larynx does demonstrate some radiation changes of the mucosa. I see no evidence of recurrent disease, there is no evidence of leukoplakia or mucosal lesion. Vocal cords appear smooth without discrete lesion or leukoplakia. There is pooling of secretions which is typical for her. There is no evidence of recurrent disease on today's examination. She is to return to the clinic in one year for review. This is with the understanding should she have any complaints in the meantime to call sooner. Toño Cervantes PA-C Department of Otolaryngology [facility] [place] [address] Office Phone - documented in this encounter Plan of Treatment Not on file documented as of this encounter Visit Diagnoses Diagnosis Impacted cerumen- Primary H/O tongue cancer Personal history of malignant neoplasm of tongue documented in this encounter Care Teams Jig Grinder Relationship Specialty Start Date End Date Marck Brody DO [address] [place] [address] PCP - General 02/08/10 10/12/21 documented as of this encounter
--- OUTSIDE RECORDS SUMMARY | 2023-12-08 20:08 | XMS_ITS | Encounter Summary ---
[place] [address] Care Team Providers Care Health Care Facility Administrator Name Role Phone Marck Brody DO Primary Care Provider Encounter Details Date Type Department Care Team (Late st Contact Info) Description 12/30/2012 Telephone [place] [phone] Natalie Harris APRN [address] [place] [address] DR RADIATION ONCOLOGY [place], [place] [id number] Social History Tobacco Use Types Packs/Day Years Used Date Smoking Tobacco: Never Smokeless Tobacco: Never Sex and Gender Information Value Date Recorded Sex Assigned at Not on file Gender Identity Not on file Sexual Orientation Not on file documented as of this encounter Miscellaneous Notes * Telephone Encounter - Natalie Harris APRN - 12/30/2012 8:21 AM EDT Call to patient to report on her TSH level ie 0.22. We will decrease her levothyroxine to 100 mcg aday. New Rx to her pharmacy. documented in this encounter Plan of Treatment Not on file documented as of this encounter Visit Diagnoses Diagnosis Hypothyroid- Primary Unspecified hypothyroidism documented in this encounter Care Teams Health Care Facility Administrator Relationship Specialty Start Date End Date Marck Brody DO [address] [place] [address] PCP - General 02/08/10 10/12/21 documented as of this encounter
--- OUTSIDE RECORDS SUMMARY | 2023-12-08 20:08 | XMS_ITS | Encounter Summary ---
Author Organization [facility] [place] [address] Care Team Providers Care Piling Setter Name Role Phone Marck Brdoy DO Primary Care Provider Reason for Visit * Reason Onset Date Comments Medication Refill 08/25/2011 Encounter Details Date Type Department Care Team (Late st Contact Info) Description 08/25/2011 Refill [place] [phone] Honey Hickman LPN Social History Tobacco Use Types Packs/Day [...] on filedocumented in this encounter Care Teams Piling Setter Relationship Specialty Start Date End Date Marck Brody DO [address] [place] [address] PCP - General 02/08/10 10/12/21 documented as of this encounter
--- OUTSIDE RECORDS SUMMARY | 2023-12-08 20:08 | XMS_ITS | Encounter Summary ---
Author Organization [facility] [place] [address] Care Team Providers Care Wedding Florist Name Role Phone Marck Brody DO Primary Care Provider Encounter Details Date Type Department Care Team (Late st Contact Info) Description 08/24/2010 Orders Only Hematology [place] [phone] Lindsey Gar APRN [facility] HEMATOLOGY/[place] [address] Tongue cancer (Primary Dx) Social History Tobacco Use Types Packs/Day Years Used Date Smoking Tobacco: Never Assessed Sex and Gender Information Value Date Recorded Sex Assigned at Not on file Gender Identity Not on file Sexual Orientation Not on file documented as of this encounter Plan of Treatment Not on file documented as of this encounter Results * L[facility] (08/25/2010 1:31 PM EDT) Lactate Dehydrogenase 119 110 - 220 unit/L [facility] Blood specimen (specimen) 08/25/2010 1:31 PM EDT 08/25/2010 1:36 PM EDT Wilfrid Sifuentes MD CHEMISTRY ORDERABL ES CERNER MILLENNIUM * (ABNORMAL) Comprehensive metabolic panel (non-fasting) (08/25/2010 1:31 PM EDT) Glucose 92 60 - 199 mg/dL CERNER MILLENNIUM Comment:Diabetes: >=200 mg/d L plus symptoms Blood Urea Nitrogen 6(L) 8 - 18 mg/dL CERNER MILLENNIUM Creatinine 0.65(L) 0.70 - 1.20 mg/dL CERNER MILLENNIUM Sodium 140 135 - 145 mmol/L CERNER MILLENNIUM Potassium 3.4(L) 3.5 - 5.0 mmol/L CERNER MILLENNIUM Comment: Please note: ??Patients with WBC >100,000 may have falsely elevated Potassium levels. ??For accurate Potassium quantification in these patients send serum separator tube (gold top) for subsequent determinations. ??Contact the Clinical Chemistry Laboratory if there are any questions. Chloride 103 98 - 107 mmol/L CERNER MILLENNIUM Carbon Dioxide 28 22 - 31 mmol/L CERNER MILLENNIUM Anion Gap 9 5 - 15 mmol/L CERNER MILLENNIUM Calcium 9.4 8.5 - 10.5 mg/dL CERNER MILLENNIUM Protein, Total 6.8 6.4 - 8.3 gm/dL CERNER MILLENNIUM Albumin 4.2 3.2 - 5.2 gm/dL CERNER MILLENNIUM Aspartate Aminotransferase 16 0 - 30 unit/L CERNER MILLENNIUM Alanine Aminotransferase 10 0 - 30 unit/L CERNER MILLENNIUM Alkaline Phosphatase 58 40 - 104 unit/L CERNER MILLENNIUM Bilirubin, Total 0.5 0.2 - 1.3 mg/dL CERNER MILLENNIUM Bilirubin, Direct 0.1 0.0 - 0.3 mg/dL CERNER MILLENNIUM Est Glomerular Filtration Rate >60 >=60 CERNER MILLENNIUM Comment: The National Kidney Disease Education Program (NKDEP) has recommended all laboratories report estimated GFR (eGFR) along with plasma creatinine measurements to assist you with recognition of early kidney disease. Caveats: ??Plasma creatinine should be at steady-state (unchanged within the past week). For patients multiply eGFR by 1.2.MDRD equation has not been validated for pediatric patients and is only valid for patients with age >= 18 years. At present, NKDEP does NOT recommend using the MDRD equation for drug dosing purposes and pharmacists should continue to use their current dosing methods. In addition, numerical eGFR values greater than 60 ml/min/1.73 square meters should be treated as > 60, and not an exact number due to greater inaccuracies at these higher values. Per NKDEP, they classify normal renal function as any GFR >60ml/min/1.73 square meters; chronic kidney disease when GFR <60, and renal failure when GFR <15. ??This calculation may not be valid for patients with atypical muscle mass (very lean or obese), acute renal failure, and in patients with diabetic kidney disease. References: http://nkdep.nih.gov/resources/NKDEP_Suggestn4Labs_0606_508.pdf http://www.kidney.org/professionals/kls/pdf/faq_gfr.pdf Blood specimen (specimen) 08/25/2010 1:31 PM EDT 08/25/2010 1:36 PM EDT Wilfrid Sifuentes MD CHEMISTRY ORDERABL ES CERNER MILLENNIUM * (ABNORMAL) CBC (with Diff) (08/25/2010 1:31 PM EDT) White Blood Cell 9.5 4.0 - 10.0 x10(3)/mc L CERNER MILLENNIUM Red Blood Cell 3.95 3.93 - 5.22 x10(6)/mc L CERNER MILLENNIUM Hemoglobin 13.0 11.2 - 15.7 gm/dL CERNER MILLENNIUM Hematocrit 38.4 34.0 - 45.0 % CERNER MILLENNIUM Mean Cell Volume 97.2(H) 79.0 - 94.0 fL CERNER MILLENNIUM Mean Cell Hemoglobin 32.9(H) 26.6 - 32.2 pg CERNER MILLENNIUM Mean Cell Hemoglobin Concentration 33.9 32.0 - 36.5 gm/dL CERNER MILLENNIUM Platelet 287 145 - 370 x10(3)/mc L CERNER MILLENNIUM RDW Standard Deviation 43.7 35.0 - 46.0 fL CERNER MILLENNIUM RDW coefficient of variation 12.2 10.9 - 14.4 % CERNER MILLENNIUM Mean Platelet Volume 9.2 9.0 - 12.0 fL RUTHTAMIKO BROCKENNIUM Blood specimen (specimen) 08/25/2010 1:31 PM EDT 08/25/2010 1:36 PM EDT Wilfrid Sifuentes MD HEMATOLOGY ORDERAB LES KADE MANE documented in this encounter Visit Diagnoses Diagnosis Tongue cancer- Primary Malignant neoplasm of tongue, unspecified site documented in this encounter Care Teams Wedding Florist Relationship Specialty Start Date End Date Marck Brody DO [address] [place] [address] PCP - General 02/08/10 10/12/21 documented as of this encounter
--- OUTSIDE RECORDS SUMMARY | 2023-12-08 20:08 | XMS_ITS | Encounter Summary ---
Author Organization [facility] [place] [address] Care Team Providers Care International Controller Name Role Phone Marck Brody DO Primary Care Provider Reason for Visit * Reason Comments Radiation Follow-up tongue cancer Encounter Details Date Type Department Care Team (Late st Contact Info) Description 06/29/2011 9:00 AM EDT Follow-Up Radiation Oncology at [address] [phone] Natalie Harris MANAGER RETAIL [address] [place] [address] [place] [address] Hypothyroidism (Primary Dx); Tongue cancer Discharge Disposition: Home Social History Tobacco Use Types Packs/Day Years Used Date Smoking Tobacco: Never Smokeless Tobacco: Never Sex and Gender Information Value Date Recorded Sex Assigned at Not on file Gender Identity Not on file Sexual Orientation Not on file documented as of this encounter Last Filed Vital Signs Vital Sign Reading Time Taken Comments Blood Pressure 113/65 06/29/2011 8:51 AM EDT Pulse 77 06/29/2011 8:51 AM EDT Temperature - - Respiratory Rate 16 06/29/2011 8:51 AM EDT Oxygen Saturation 98% 06/29/2011 8:51 AM EDT Inhaled Oxygen Concentration - - Weight 48 kg (105 lb 13.1 oz) 06/29/2011 8:51 AM EDT Height - - Body Mass Index 18.87 12/22/2010 3:04 PM EDT documented in this encounter Progress Notes * Natalie Harris, MANAGER RETAIL - 06/29/2011 9:28 AM EDT Subjective: Patient ID: Theresa Hollis is a myles 40 y.o. 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 She completed treatment 01/14/2007 She reports that she is doing well at this time. She was last seen in radiation oncology 12/22/2010. HPI At age 36 Ms. Theresa Hollis presented to her local dentist in 03/25 w/a non- healing sore on her L lateral tongue. She had a previous lesion 1 yr. prior which resolved w/steroid treatment. The dentist biopsied the lesion & treated her for thrush w/nystatin. The biopsy was read @ [facility] as dysplasia @ the basal aspect of [...] the lateral tongue. Final path review @ [facility]: a. Tongue, L, biopsy: squamous cell ca, [...] cancer of the left lateral tongue Stage: [id number] Surgery(ies): 10/31/06 - Hemiglossectomy, left neck dissection 1-5, skin graft, allograft Radiation: TREATMENT STARTED: 11/28/06 TREATMENT COMPLETED: 01/14/07 TREATMENT: The total maximum dose was 6600 cGy in 33 fractions. Volume reductions were instituted at 5400 cGy in 30 fractions & 6000 cGy in 30 fractions. Chemotherapy: Concurrent cisplatin 2. Hypothyroidism. Interim History: Mrs Hollis is in clinic today with her father. She indicates that she has been doing very well. 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 She was distressed by the recent murderof one of her colleagues. She will be 41 yo on Sunday and will be celebrating with family and friends. She has no complaints. None Mild Mod Severe Comments Pain: X Dysphagia: x [ ] in active REMOTE COMPUTER TERMINAL OPERATOR therapy if she tries to eat too quickly Taste Changes: x good--patient avoids spicy foods due to irritation Xerostomia: x 90% fluid intake good. --evovax has been very effective Trismus: x Aspiration: x Dental problems: x [ ] using fluoride Rx [ x] checkups up to date--She sees her dentist every six months. Uses Blueleaf care toothbrush--mouth rinse, biotene-- no dental concerns and no jaw pain Food restrictions: x spicy foods only Fatigue: x Tobacco use: x Ethanol use: x Metastatic Sx: x Other: ROM restrictions Mild to moderate tightness/fibrosis in neck--unchanged Review of Systems Constitutional: Negative for fever, chills, diaphoresis, activity change, appetite change, fatigue and unexpected weight change. Patient's weight is now stable HENT: Positive for neck stiffness. Negative for hearing loss, sore throat, facial swelling, mouth sores, trouble swallowing, neck pain and dental problem. See above. Fibrosis of neck and stiffness as a result. Restriction in range of motion seems to be somewhat less. Patient does stretching exercises daily. Eyes: Negative. Respiratory: Negative for cough, choking, chest tightness, shortness of breath and wheezing. Cardiovascular: Negative for chest pain and leg swelling. Gastrointestinal: Negative. Genitourinary: Negative. Musculoskeletal: Negative for myalgias, back pain, joint swelling, arthralgias and gait problem. Skin: Negative. Neurological: Negative. Negative for dizziness, tremors, facial asymmetry, speech difficulty, weakness, light-headedness, numbness and headaches. Unchanged speech mild speech alteration. Patient has had REMOTE COMPUTER TERMINAL OPERATOR for this and is at her maximum function. Hematological: Negative. Psychiatric/Behavioral: Negative. Filed Vitals: 06/29/11 0851 BP: 113/65 Pulse: 77 Resp: 16 Weight: 48 kg (105 lb 13.1 oz) SpO2: 98% Physical Exam Vitals reviewed. Constitutional: She is oriented to person, place, and time. She appears well- developed and well-nourished. No distress. HENT: Head: Normocephalic. Mouth/Throat: Oropharynx is clear and moist. No oropharyngeal exudate. Tongue with reduced mobility. No leukoplakia, no thrush, mucous membranes moist, intact with no ulceration, no masses, no lesions. No thrush. Mild trismus. Teeth in good repair Eyes: Conjunctivae and EOM are normal. Pupils are equal, round, and reactive to light. No scleral icterus. Neck: Neck supple. No tracheal deviation, no edema, no erythema and normal range of motion present.No mass and no thyromegaly present. Fibrosis of [...] range of motion. She exhibits no edema and no tenderness. Lymphadenopathy: She has no cervical adenopathy. Neurological: She is alert and oriented to person, place, and time. She exhibits normal muscle tone. Coordination normal. Skin: Skin is warm and dry. No rash noted. She is not diaphoretic. No erythema. No pallor. Psychiatric: She has a normal mood and affect. Her behavior is normal. Judgment and thought contentnormal. Assessment and Plan: Assessment: Cancer of the lateral tongue. There is MALLY at this time and patient reports good quality of life and functional status. Hypothyroidism most likely due to radiation therapy. TSH is 0.12 so we will reduce dose of levothyroxine to 112 mcg a day. Theresa continues doing stretching exercises and doing massage to her neck to keep tissue flexibility. Patient is doing well overall. She will be seeing Dr Coughlin in December and have a CBC, CMP, TSH and chest x-ray at that time PLAN 1. Patient is to return to clinic in One year for CBC, CMP, TSH at that time. She is to call if shehas any questions or concerns in the meantime. documented in this encounter Procedure Notes * Provider, Scanning - 2012 6:46 PM EDTAssociated Order(s): SCAN DOC: LAB documented in this encounter Plan of Treatment Not on file documented as of this encounter Procedures Procedure Name Priority Date/Time Associated Diagnosis Comments LAB SCAN 2012 6:46 PM EDT documented in this encounter Results * SCAN DOC: LAB (2012 6:46 PM EDT) Narrative 2012 6:46 PM EDT Procedure Note Provider, Scanning - 2012 6:46 PM EDT Scanning Provider MEDIA MGR SCAN EXT O RDR/RSLT documented in this encounter Visit Diagnoses Diagnosis Hypothyroidism- Primary Unspecified hypothyroidism Tongue cancer Malignant neoplasm of tongue, unspecified site documented in this encounter Care Teams International Controller Relationship Specialty Start Date End Date Marck Brody DO [address] [facility] [address] [place] [address] PCP - General 02/08/10 10/12/21 documented as of this encounter
--- OUTSIDE RECORDS SUMMARY | 2023-12-08 20:08 | XMS_ITS | Encounter Summary ---
Author Organization [facility] [address] Care Team Providers Care Audit Intern Name Role Phone Marck Brody DO Primary Care Provider Reason for Visit * Reason Comments Radiation Follow-up Encounter Details Date Type Department Care Team (Late st Contact Info) Description 08/25/2010 9:30 AM EDT Follow-Up Radiation Oncology at [address] [phone] Natalie Harris CURAM DEVELOPER [address] [place] [address] [place] [address] Hypothyroidism (Primary Dx); Tongue cancer Discharge Disposition: Home Social History Tobacco Use Types Packs/Day Years Used Date Smoking Tobacco: Never Sex and Gender Information Value Date Recorded Sex Assigned at Not on file Gender Identity Not on file Sexual Orientation Not on file documented as of this encounter Last Filed Vital Signs Vital Sign Reading Time Taken Comments Blood Pressure 113/73 08/25/2010 9:27 AM EDT Pulse 100 08/25/2010 9:27 AM EDT Temperature 37 ??C (98.6 ??F) 08/25/2010 9:27 AM EDT Respiratory Rate 16 08/25/2010 9:27 AM EDT Oxygen Saturation 98% 08/25/2010 9:27 AM EDT Inhaled Oxygen Concentration - - Weight 46.5 kg (102 lb 8.2 oz) 08/25/2010 9:27 A M EDT Height 159.3 cm (5' 2.72) 08/25/2010 9:27 AM ED T Body Mass Index 18.32 08/25/2010 9:27 AM EDT documented in this encounter Progress Notes * Kimberly Natalie Butt, CURAM DEVELOPER - 08/25/2010 10:13 AM EDT Subjective: Patient ID: Theresa Hollis is a myles 40 y.o. 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 She completed treatment 01/14/2007 She reports that she is doing well at this time. She was last seen in radiation oncology 01/27/2010. HPI At age 36 Ms. Theresa Hollis presented to her local dentist in 03/25 w/a non- healing sore on her L lateral tongue. She had a previous lesion 1 yr. prior which resolved w/steroid treatment. The dentist biopsied the lesion & treated her for thrush w/nystatin. The biopsy was read @ [facility] as dysplasia @ the basal [...] the lateral tongue. Final path review @ [facility]: a. Tongue, L, biopsy: squamous [...] cancer of the left lateral tongue Stage: [id number] Surgery(ies): 10/31/06 - Hemiglossectomy, left neck dissection 1-5, skin graft, allograft Radiation: TREATMENT STARTED: 11/28/06 TREATMENT COMPLETED: 01/14/07 TREATMENT: The total maximum dose was 6600 cGy in 33 fractions. Volume reductions were instituted at 5400 cGy in 30 fractions & 6000 cGy in 30 fractions. Chemotherapy: Concurrent cisplatin 2. Hypothyroidism. Interim History: Mrs Hollis is in clinic today with her . She indicates that she has been doing very well. 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 She is seeing multidisciplinary providers today. She indicates that she has more energy and her weight has increased slightly. She has no complaints. None Mild Mod Severe Comments Pain: X Dysphagia: x [ ] in active CEMENTER MACHINE APPLICATOR therapy if she tries to eat too quickly Taste Changes: x good--patient avoids spicy foods due to irritation Xerostomia: x 90% fluid intake good. --evovax has been very effective Trismus: x Aspiration: x Dental problems: x [ ] using fluoride Rx [ x] checkups up to date--She sees her dentist every six months. Uses sonic care toothbrush--mouth rinse, biotene-- she has a new appointment coming up Food restrictions: x spicy foods only Fatigue: x Tobacco use: x Ethanol use: x Metastatic Sx: x Other: ROM restrictions Tightness/fibrosis in neck--unchanged Review of Systems Constitutional: Negative for fever, chills, diaphoresis, activity change, appetite change, fatigue and unexpected weight change. Patient has gained four lbs in six months. HENT: Positive for neck stiffness. Negative for hearing loss, sore throat, facial swelling, mouth sores, trouble swallowing, neck pain and dental problem. See above. Fibrosis of neck and stiffness as a result. Restriction in range of motion. Patient doesstretching exercises daily. Eyes: Negative. Respiratory: Negative for cough, choking, chest tightness, shortness of breath and wheezing. Cardiovascular: Negative for chest pain and leg swelling. Gastrointestinal: Negative. Genitourinary: Negative. Musculoskeletal: Negative for myalgias, back pain, joint swelling and arthralgias. Skin: Negative. Neurological: Positive for speech difficulty. Negative for dizziness, tremors, facial asymmetry, weakness, light-headedness, numbness and headaches. Unchanged speech mild speech alteration. Patient has had CEMENTER MACHINE APPLICATOR for this and is at her maximum function. Psychiatric/Behavioral: Negative. Filed Vitals: 08/25/10 0927 BP: 113/73 Pulse: 100 Temp: 37 ??C (98.6 ??F) TempSrc: Oral Resp: 16 Height: 1.593 m (5' 2.72) Weight: 46.5 kg (102 lb 8.2 oz) SpO2: 98% Recent Results (from the past 72 hour(s)) CBC (WITH DIFF) Component Value Range ??? WBC 9.5 4.0 - 10.0 (x10(3)/mcL) ??? RBC 3.95 3.93 - 5.22 (x10(6)/mcL) ??? Hemoglobin 13.0 11.2 - 15.7 (gm/dL) ??? Hematocrit 38.4 34.0 - 45.0 (%) ??? MCV 97.2 (*) 79.0 - 94.0 (fL) ??? MCH 32.9 (*) 26.6 - 32.2 (pg) ??? MCHC 33.9 32.0 - 36.5 (gm/dL) ??? Platelets 287 145 - 370 (x10(3)/mcL) ??? RDWSD 43.7 35.0 - 46.0 (fL) ??? RDWCV 12.2 10.9 - 14.4 (%) ??? MPV 9.2 9.0 - 12.0 (fL) COMPREHENSIVE METABOLIC PANEL (NON-FASTING) Component Value Range ??? Glucose Lvl 92 60 - 199 (mg/dL) ??? BUN 6 (*) 8 - 18 (mg/dL) ??? Creatinine 0.65 (*) 0.70 - 1.20 (mg/dL) ??? Sodium 140 135 - 145 (mmol/L) ??? Potassium 3.4 (*) 3.5 - 5.0 (mmol/L) ??? Chloride 103 98 - 107 (mmol/L) ??? CO2 28 22 - 31 (mmol/L) ??? Anion Gap 9 5 - 15 (mmol/L) ??? Calcium 9.4 8.5 - 10.5 (mg/dL) ??? Total Protein 6.8 6.4 - 8.3 (gm/dL) ??? Albumin 4.2 3.2 - 5.2 (gm/dL) ??? AST 16 0 - 30 (unit/L) ??? ALT 10 0 - 30 (unit/L) ??? Alk Phos 58 40 - 104 (unit/L) ??? Total Bilirubin 0.5 0.2 - 1.3 (mg/dL) ??? Bili, Direct 0.1 0.0 - 0.3 (mg/dL) ? ? Estimated GFR >60 >=60 LACTATE DEHYDROGENASE Component Value Range ??? LDH 119 110 - 220 (unit/L) TSH Component Value Range ??? TSH 0.75 0.27 - 4.20 (mcIU/mL) REFLEX LAB-A-DIFF Component Value Range ??? Neutrophils % 85.8 (*) 34.0 - 71.0 (%) ??? Neutr Abs (ANC) 8.10 (*) 1.50 - 6.30 (x10(3)/mcL) ??? Lymphocytes % 7.9 (*) 19.0 - 53.0 (%) ??? Lymphocytes Abs 0.8 (*) 1.0 - 3.6 (x10(3)/mcL) ??? Monocytes % 4.4 4.0 - 13.0 (%) ??? Monocyte Abs 0.4 0.2 - 1.0 (x10(3)/mcL) ??? Eosinophils % 1.3 0.0 - 7.0 (%) ??? Eosinophils Abs 0.1 0.0 - 0.5 (x10(3)/mcL) ??? Basophils % 0.3 0.0 - 2.0 (%) ??? Basophils Abs 0.0 0.0 - 0.2 (x10(3)/mcL) ??? Immature Gran % 0.30 0.00 - 0.66 (%) ??? Josselyn Gran Abs 0.03 0.00 - 0.05 (x10(3)/mcL) Objective: Physical Exam Constitutional: She is oriented to person, place, and time. She appears well- developed and well-nourished. No distress. HENT: Head: Normocephalic. Mouth/Throat: Oropharynx is clear and moist. No oropharyngeal exudate. Tongue with reduced mobility. No leukoplakia, no thrush, mucous membranes moist, intact with no ulceration, no masses. No thrush. Mild trismus. Eyes: No scleral icterus. Neck: No thyromegaly present. Fibrosis of neck with reduced range of motion Cardiovascular: Regular rhythm and normal heart sounds. Exam reveals no gallop and no friction rub. No murmur heard. Pulmonary/Chest: Effort normal and breath sounds normal. No respiratory distress. She has no wheezes. She has no rales. She exhibits no tenderness. Abdominal: Soft. She exhibits no distension. No tenderness. She has no guarding. Musculoskeletal: She exhibits no edema and no tenderness. Lymphadenopathy: She has no cervical adenopathy. Neurological: She is alert and oriented to person, place, and time. She exhibits normal muscle tone. Coordination normal. Skin: Skin is warm and dry. No rash noted. She is not diaphoretic. No erythema. Psychiatric: She has a normal mood and affect. Her behavior is normal. Judgment and thought contentnormal. Assessment and Plan: Assessment Cancer of the lateral tongue. There is MALLY at this time and patient reports good quality of life and functional status. Hypothyroidism most likely due to radiation therapy is controlled. New Rx e-faxed to patient pharmacy at the current dose. Theresa continues doing stretching exercises and doing massage to her neck to keep tissue flexibility. Patient is doing well overall PLAN 1. Patient is to return to clinic in Six months in coordination with appointment with Dr Lee.CBC, CMP, TSH at that time. Per H&N follow up plan we will do a chest x-ray at that time as well. She is to call if she has any questions or concerns in the meantime. documented in this encounter Plan of Treatment Not on file documented as of this encounter Results * XR chest routine [...] site documented in this encounter Care Teams Audit Intern Relationship Specialty Start Date End Date Marck Brody DO [address] [facility] [address] [place] [address] PCP - General 02/08/10 10/12/21 documented as of this encounter
--- OUTSIDE RECORDS SUMMARY | 2023-12-08 20:08 | XMS_ITS | Encounter Summary ---
[place] [address] Care Team Providers Care Chief Compliance Officer Name Role Phone Marck Brody DO Primary Care Provider [phone] Encounter Details Date Type Department Care Team (Late st Contact Info) Description 01/27/2010 [place] [id number] Екатерина Simmons APRN [facility] [place] [address] Social History Tobacco Use Types Packs/Day Years Used Date Smoking Tobacco: Never Assessed Sex and Gender Information Value Date Recorded Sex Assigned at Not on file Gender Identity Not on file Sexual Orientation Not on file documented as of this encounter Plan of Treatment Not on file documented as of this encounter Procedures Procedure Name Priority Date/Time Associated Diagnosis Comments PASTE WORKER CYTOLOGY FINAL REPORT Routine 01/27/2010 4:28 PM EST documented in this encounter Results * PATHOLOGY PASTE WORKER CYTOLOGY FINAL REPORT (01/27/2010 4:28 PM EST) Pan Washer Cytology Final Report ? [facility] ? Provider: ?? ЕКАТЕРИНА SIMMONS ?? Pt. Name: ?? KIRT HOLLIS ? Acc #: ?[id number] ?Pt. ? Col Date: ?? 01/27/2010 ?/Sex: ?1970,(39 years),Female ? Rec Date: ?? 01/27/2010 ?LOC: ?5L ? CYTOPATHOLOGY: ??PASTE WORKER ? ---Adequacy--- ? Specimen submitted is satisfactory [...] Verified by: ??Mari MASSEY(ASCP), Angelito Becerra - [place] ? ---Comment--- ? Fungal organisms morphologically consistent [...] ??For further ? information please contact the [facility]. ? [facility] ? Provider: ?? ЕКАТЕРИНА SIMMONS ?? Pt. Name: ?? KRISTYBRIAN KIRT Bolivar ? Acc #: ?[id number] ?Pt. ? Col Date: ?? 01/27/2010 ?/Sex: ?1970,(39 years),Female ? Rec Date: ?? 01/27/2010 ?LOC: ?5L ? CYTOPATHOLOGY: ??PASTE WORKER ? Reference: ??Valdo CS. ??Multigraph Operator of Pap Smear Results. ??In: ? Amanda BS, [facility], ed. ??The Pap Smear. ??[place]: ??Sam, 2002: ? 71-77. KADE MANE 01/27/2010 4:28 PM EST Екатерина Simmons WATER SYSTEMS ENGINEER PATHOLOGY/CYTOLOGY ORDERABLES KADE MANE documented in this encounter Visit Diagnoses Not on filedocumented in this encounter Care Teams Chief Compliance Officer Relationship Specialty Start Date End Date Marck Brody DO [address] [place] [address] PCP - General 02/08/10 10/12/21 documented as of this encounter
--- OUTSIDE RECORDS SUMMARY | 2023-12-08 20:08 | XMS_ITS | Encounter Summary ---
[place] [address] Care Team Providers Care Unix System Administrator Name Role Phone Marck Brody DO Primary Care Provider Encounter Details Date Type Department Care Team (Late st Contact Info) Description 06/11/2012 Orders Only [place] [phone] Natalie Harris, JEANINE [address] [place] [address] DR RADIATION ONCOLOGY [place], [place] [id number] Social History Tobacco Use Types Packs/Day Years [...] on filedocumented in this encounter Care Teams Unix System Administrator Relationship Specialty Start Date End Date Marck Brody DO [address] [place] [address] PCP - General 02/08/10 10/12/21 documented as of this encounter
--- OUTSIDE RECORDS SUMMARY | 2023-12-08 20:08 | XMS_ITS | Encounter Summary ---
Author Organization [facility] Address [facility] [place] [address] Care Team Providers Care Analyst Name Role Phone Marck Brody DO Primary Care Provider [phone] Encounter Details Date Type Department Care Team (Late st Contact Info) Description 12/02/2010 Orders Only Hematology [place] [address] Wilfrid Sifuentes MD [facility] HEMATOLOGY/[place] [address] Tongue cancer (Primary Dx) Social History Tobacco Use Types Packs/Day Years Used Date Smoking Tobacco: Never Sex and Gender Information Value Date Recorded Sex Assigned at Not on file Gender Identity Not on file Sexual Orientation Not on file documented as of this encounter Plan of Treatment Not on file documented as of this encounter Results * (ABNORMAL) Comprehensive metabolic panel (non-fasting) (12/22/2010 10:53 AM EDT) Glucose 91 60 - 199 mg/dL CERNER MILLENNIUM Comment:Diabetes: >=200 mg/d L plus symptoms Blood Urea Nitrogen 4(L) 8 - 18 mg/dL CERNER MILLENNIUM Creatinine 0.75 0.70 - 1.20 mg/dL CERNER MILLENNIUM Sodium 141 135 - 145 mmol/L CERNER MILLENNIUM Potassium 3.6 3.5 - 5.0 mmol/L CERNER MILLENNIUM Comment: Please note: ??Patients with WBC >100,000 may have falsely elevated Potassium levels. ??For accurate Potassium quantification in these patients send serum separator tube (gold top) for subsequent determinations. ??Contact the Clinical Chemistry Laboratory if there are any questions. Chloride 105 98 - 107 mmol/L CERNER MILLENNIUM Carbon Dioxide 27 22 - 31 mmol/L CERNER MILLENNIUM Anion Gap 9 5 - 15 mmol/L CERNER MILLENNIUM Calcium 9.3 8.5 - 10.5 mg/dL CERNER MILLENNIUM Protein, Total 7.0 6.4 - 8.3 gm/dL CERNER MILLENNIUM Albumin 4.5 3.2 - 5.2 gm/dL CERNER MILLENNIUM Aspartate Aminotransferase 17 0 - 30 unit/L CERNER MILLENNIUM Alanine Aminotransferase 12 0 - 30 unit/L CERNER MILLENNIUM Alkaline Phosphatase 51 40 - 104 unit/L CERNER MILLENNIUM Bilirubin, [...] disease. References: http://nkdep.nih.gov/resources/NKDEP_Suggestn4Labs_0606_508.pdf http://www.kidney.org/professionals/kls/pdf/faq_gfr.pdf Blood specimen (specimen) 12/22/2010 10:53 AM EDT 12/22/2010 11:06 AM EDT Wilfrid Sifuentes MD CHEMISTRY ORDERABL ES Performing Organization Address [facility] Co de Phone Number CERNER MILLENNIUM * (ABNORMAL) CBC (with Diff) (12/22/2010 10:53 AM EDT) White Blood Cell 4.5 4.0 - 10.0 x10(3)/mc L CERNER MILLENNIUM Red Blood Cell 3.90(L) 3.93 - 5.22 x10(6)/mc L CERNER MILLENNIUM Hemoglobin 13.3 11.2 - 15.7 gm/dL CERNER MILLENNIUM Hematocrit 38.5 34.0 - 45.0 % CERNER MILLENNIUM Mean Cell Volume 98.7(H) 79.0 - 94.0 fL CERNER MILLENNIUM Mean Cell Hemoglobin 34.1(H) 26.6 - 32.2 pg CERNER MILLENNIUM Mean Cell Hemoglobin Concentration 34.5 32.0 - 36.5 gm/dL CERNER MILLENNIUM Platelet 262 145 - 370 x10(3)/mc L CERNER MILLENNIUM RDW Standard Deviation 45.2 35.0 - 46.0 fL CERNER MILLENNIUM RDW coefficient of variation 12.6 10.9 - 14.4 % CERNER MILLENNIUM Mean Platelet Volume 9.6 9.0 - 12.0 fL CERNER MILLENNIUM Blood specimen (specimen) 12/22/2010 10:53 AM EDT 12/22/2010 11:06 AM EDT Wilfrid Sifuentes MD HEMATOLOGY ORDERAB LES CERNER MILLENNIUM documented in this encounter Visit Diagnoses Diagnosis Tongue cancer- Primary Malignant neoplasm of tongue, unspecified site documented in this encounter Care Teams Analyst Relationship Specialty Start Date End Date Marck Brody DO [address] [place] [address] PCP - General 02/08/10 10/12/21 documented as of this encounter
--- OUTSIDE RECORDS SUMMARY | 2023-12-08 20:08 | XMS_ITS | Encounter Summary ---
[place] [address] Care Team Providers Care Elevator Runner Name Role Phone Marck Brody DO Primary Care Provider [phone] Encounter Details Date Type Department Care Team (Late st Contact Info) Description 06/11/2012 Orders Only [place] [phone] Natalie Harris APRN [address] [place] [address] DR RADIATION ONCOLOGY [place], [place] [id number] Head and neck cancer (Primary Dx); Radiation-induced hypothyroidism Social History Tobacco Use Types Packs/Day Years Used Date Smoking Tobacco: Never Smokeless Tobacco: Never Sex and Gender Information Value Date Recorded Sex Assigned at Not on file Gender Identity Not on file Sexual Orientation Not on file documented as of this encounter Plan of Treatment Not on file documented as of this encounter Visit Diagnoses Diagnosis Head and neck cancer- Primary Malignant neoplasm of head, face, and neck 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
--- OUTSIDE RECORDS SUMMARY | 2023-12-08 20:08 | XMS_ITS | Encounter Summary ---
Author Organization [facility] [place] [address] Care Team Providers Care Redevelopment Specialist Name Role Phone Marck Brody DO Primary Care Provider Encounter Details Date Type Department Care Team (Late st Contact Info) Description 02/03/2013 8:49 AM EST - 02/03/2013 11:59 PM EST Hospital En[place] [phone] CLINIC, Marck Edwards, DO [address] [place] [address] Discharge Disposition: Home Social History [...] Diagnosis Comments MAMMO SCREENING CAD BILATERAL Routine 02/03/2013 9:08 AM EST documented in this encounter Results * Mammo digital bilateral Screening with CAD (02/03/2013 9:08 AM EST) Anatomical Region Laterality Modality Breast Bilateral Mammography 02/03/2013 9:08 AM EST Narrative 02/04/2013 1:27 PM EST Reason for Exam: Screening ?? Technique: [...] the breast imaging center. ?? Procedure Note Ivette Brown MD - 02/04/2013 Reason for Exam: Screening Technique: Craniocaudal (CC) [...] on filedocumented in this encounter Care Teams Redevelopment Specialist Relationship Specialty Start Date End Date Marck Brody DO [address] [place] [address] PCP - General 02/08/10 10/12/21 documented as of this encounter
--- OUTSIDE RECORDS SUMMARY | 2023-12-08 20:08 | XMS_ITS | Encounter Summary ---
Author Organization [facility] Address [facility] [place] [address] Care Team Providers Care Relief Manager Name Role Phone Marck Brody DO Primary Care Provider [phone] Reason for Visit * Reason Comments Teeth Problems eval for extractions Encounter Details Date Type Department Care Team (Late st Contact Info) Description 01/09/2014 2:30 PM EDT Office [place] [phone] Alfred Vital MD [facility] [place] [address] S/P radiation therapy (Primary Dx); Periodontal disease Discharge Disposition: Home Social History Tobacco Use Types Packs/Day Years Used Date Smoking Tobacco: Never Smokeless Tobacco: Never Sex and Gender Information Value Date Recorded Sex Assigned at Not on file Gender Identity Not on file Sexual Orientation Not on file documented as of this encounter Last Filed Vital Signs Vital Sign Reading Time Taken Comments Blood Pressure 107/62 01/09/2014 3:06 PM EDT Pulse 79 01/09/2014 3:06 PM EDT Temperature - - Respiratory Rate - - Oxygen Saturation - - Inhaled Oxygen Concentration - - Weight 47.6 kg (105 lb) 01/09/2014 3:06 PM EDT Height 160 cm (5' 3) 01/09/2014 3:06 PM EDT Body Mass Index 18.6 01/09/2014 3:06 PM EDT documented in this encounter Progress Notes * Alfred Vital MD - 01/09/2014 3:07 PM EDT Oral & Maxillofacial Surgery Extraction Consult Theresa Hollis is a 43 y.o. female who is referred to us by Dr. Robb for consultation regardingpotential extraction of multiple teeth. A complete history of the function 's symptoms and physical signs were reviewed with attention to initial findings and progression, pain, bleeding, swelling, lumps, bumps, drainage, dysphagia, odynophagia, paresthesia, dysarthria and systemic effects. Pertinent notations from today's history: ?? 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 She keeps regular follow up and diagnostic imaging ?? Loose tooth resulting in extraction following eating crunchy food last year on the right side; this healed uneventfully. ?? She is interested in possible dental implant ?? No prior HBO treatment ?? Mandibular nerve block results in muscle cramping and aching for a few days after injection ?? No recent paramandibular swelling ?? No paresthesia ?? Weight and appetite have remained stable ?? She has an upcoming appointment with Dr. Lee Past Medical and Dental History: Patient Active Problem List Diagnosis Code ??? Hypothyroidism (acquired) 244.9 ??? Tongue cancer 141.9 ??? Tinnitus 388.30 ??? History of tongue cancer V10.01 cevimeline (EVOXAC) 30 mg capsule; levothyroxine (SYNTHROID) 88 mcg tablet No Known Allergies ROS with attention to cardiac, pulmonary, hepatic, renal, neurologic and dermatologic systems reviewed with relevant findings as noted above. Physical Exam: Extraoral exam conducted including facial symmetry, sensory and motor function, alertness and appropriateness to questions and commands, range of jaw motion, TMJ function and skeletal architecture. Neck exam conducted with attention to normal musculature, vasculature and potential adenopathy. Intraoral exam including evaluation of tongue surface and consistency, floor of mouth, buccal and labial mucosa, hard and soft palate and oropharynx as well as dentition, dental arches and occlusion and salivary flow. Pertinent findings include: ?? Mandibular ROM 25 mm maximum inter-incisal distance without deviation ?? Right buccal mucosa WNL ?? Telangectasia left buccal mucosa ?? Moderate erythema and recession involving the gingiva lateral to tooth #19 with significant periodontal involvement inclusive of the furcation. ?? This tooth is also 2+mobile ?? Oropharynx unremarkable ?? Hard and soft palate nl ?? Gingiva involving dentition in the upper left region WNL ?? Anterior mandibular gingiva is edematous ?? The right mandibular and maxillary gingiva is wnl ?? Tongue is mildly indurated on the left side ?? Floor of mouth is unremarkable anteriorly ?? No obvious cervical lymphadenopathy ?? Well healed scar in left neck Radiographic Examination: panorex radiograph obtained by Dr. Saavedra in 2013 is reviewed demonstrating bone loss associated with #19. Impression: Mucositis and periodontal disease s/p radiation treatment to the head and neck Recommendations and Plans: Follow up with her regular dentist for updated panorex radiograph for better assessment of bone, dentition, and assessment of progressive changes when compared to last years radiograph, to plan for potential extraction of teeth #18 & 19, or 19 alone. Dental implant isnot recommended due to history of radiation treatment. Recommend HBO consult for potential perioperative therapy surrounding extractions. Osteoradionecrosis potential reviewed in detail. Potential risks and anticipated benefits of the surgical intervention discussed were carefully reviewed with the patient and her father including but not limited to bleeding, infection, soft tissue dehiscence, delayed wound healing, nerve paresthesias and palsies, sinus injuries, injuries to adjacent tissues and possible need for additional surgery. Questions regarding the proposed intervention were encouraged and answered. Will review with Dr. Robb. Time Statement: Thirty minutes was spent with the patient greater than 26 minutes of which includeddirect discussion regarding the clinical and radiographic findings where indicated, the potential diagnoses and a review of the natural history as well as treatment alternatives, their benefits and at tendant risks. Theresa was given an opportunity to ask questions and instructed to contact us if further questions arise following the consultation. Nenita Romano, KAROL, am acting as scribe for Dr. Vital. All work documented was performed by Dr. Vital. Alfred Romano, performed the above scribed service and agree with the accuracy of the note. documented in this encounter Plan of Treatment Not on file documented as of this encounter Visit Diagnoses Diagnosis S/P radiation therapy- Primary Convalescence following radiotherapy Periodontal disease Unspecified gingival and periodontal disease documented in this encounter Care Teams Relief Manager Relationship Specialty Start Date End Date Marck Brody DO [address] [place] [address] PCP - General 02/08/10 10/12/21 documented as of this encounter
--- OUTSIDE RECORDS SUMMARY | 2023-12-08 20:08 | XMS_ITS | Encounter Summary ---
Author Organization [facility] [place] [address] Care Team Providers Care Screening Tech Name Role Phone Marck Brody DO Primary Care Provider [phone] Reason for Visit * Reason Comments Follow-up Encounter Details Date Type Department Care Team (Late st Contact Info) Description 08/25/2010 4:00 PM EDT Follow-[place] [phone] Roberth Lee MD [facility] [place] [address] Hx of tongue cancer (Primary Dx); Xerostomia Discharge Disposition: Home Social History Tobacco Use [...] - - Weight 46.7 kg (103 lb) 08/25/2010 3:59 PM EDT Height - - Body Mass Index 18.41 08/25/2010 9:27 AM EDT documented in this encounter Progress Notes * Roberth Lee MD - 08/25/2010 6:00 PM EDT Subjective: Patient ID: Theresa Hollis is a 40 y.o. female. HPI Patient Active Problem List Diagnoses ??? Hypothyroidism Radiation induced ??? Tongue cancer -preliminary stage I (pT1 pN2b Mx), nonsmoker -L tongue pain, induration, Candidiasis 03/25; antifungal + topical steroid Rx with clinical improvement; biopsies showing oral hairy leukoplakia, dysplasia -excision 09/13/06: 1.0 cm poorly differentiated squamous cell Ca, without in situ component; (+) medial margin; repeat endoscopy 10/05; rN2b by PET/CT -hemiglossectomy with L functional neck dissection, sternocleidomastoid rotation flap, skin graft 10/30/06: 1 cm high-grade SCCa, 4/53 nodes involved (1 at level 5), (-) DANE, perineural, or vascular invasion -adjuvant concurrent cisplatin (100mg/m2 q3wks - 3 total doses) plus radiation (66Gy total) started11/26/06, completed 01/07/07, complicated by mucositis, dysphagia requiring PEG tube, severe oral pain. Recovered very well with MALLY. Voice greatly improved with mild dysarthria. PET in 12/24 showed MALLY. -XKB=[id number] in 06/25. Started on synthroid 25mcg po qd. Here for routine follow up. No new complaints. Swallowing is stable. Still has dysarthria. Evoxac helps with saliva. No pain. No adenopathy. Past Medical History Diagnosis Date ??? Cancer of head, face, and neck ??? Hypothyroidism Past Surgical History Procedure Date ??? Glossectomy Right partial ??? Lymphadenectomy SND 1-5 ??? Skin graft History Social History ??? Marital Status: Spouse Name: N/A Number of Children: N/A ??? Years of Education: N/A Occupational History ??? Not on file. Social History Main Topics ??? Smoking status: Never Smoker ??? Smokeless tobacco: Not on file ??? Alcohol Use: ??? Drug Use: ??? Sexually Active: Other Topics Concern ??? Not on file Social History Narrative ??? No narrative on file Current outpatient prescriptions ordered prior to encounter Medication Sig Dispense Refill ??? DISCONTD: levothyroxine (SYNTHROID) 125 mcg tablet Take 1 tablet by mouth daily. 10 tablet 0 ??? LORazepam (ATIVAN) 1 mg tablet 1 MG = 1 Tablet(s), PO, Twice daily PRN No Known Allergies Review of Systems Constitutional: Negative for fever, fatigue and unexpected weight change. HENT: Positive for neck stiffness. Negative for sore throat, facial swelling, drooling, mouth sores, trouble swallowing, neck pain, dental problem and voice change. Xerostomia Eyes: Negative. Respiratory: Negative for apnea, cough and stridor. Cardiovascular: Negative. Gastrointestinal: Negative. Genitourinary: Negative. Skin: Negative. Neurological: Positive for speech difficulty. Negative for facial asymmetry and weakness. Hematological: Negative for adenopathy. Psychiatric/Behavioral: Negative. Objective: Physical Exam Constitutional: She is oriented to person, place, and time. She appears well- developed and well-nourished. No distress. HENT: Head: Normocephalic and atraumatic. There is trismus in the jaw. Mouth/Throat: Oropharynx is clear and moist and mucous membranes are normal. No oral lesions. Normal dentition. No lacerations. Post glossectomy, FOM and tongue remnant are normal. Indirect mirror exam with normal tongue base and epiglottis. Eyes: EOM are normal. Neck: Normal range of motion and phonation normal. Rigidity present. No tracheal deviation present.No mass and no thyromegaly present. Significant deep muscle fibrosis Pulmonary/Chest: No stridor. No respiratory distress. Lymphadenopathy: She has no cervical adenopathy. Neurological: She is alert and oriented to person, place, and time. No cranial nerve deficit. Skin: Skin is warm, dry and intact. Psychiatric: She has a normal mood and affect. Her speech is normal and behavior is normal. Judgment and thought content normal. Cognition and memory are normal. Assessment and Plan: MALLY Renewed script for Evoxac RTC 6 months documented in this encounter Plan of Treatment Not on file documented as of this encounter Visit Diagnoses Diagnosis Hx of tongue cancer- Primary Personal history of malignant neoplasm of tongue Xerostomia Disturbance of salivary secretion documented in this encounter Care Teams Screening Tech Relationship Specialty Start Date End Date Marck Brody DO [address] [place] [address] PCP - General 02/08/10 10/12/21 documented as of this encounter
--- OUTSIDE RECORDS SUMMARY | 2023-12-08 20:08 | XMS_ITS | Encounter Summary ---
[place] [address] Care Team Providers Care Orthopedic Rn Name Role Phone Marck Brody DO Primary Care Provider Encounter Details Date Type Department Care Team (Late st Contact Info) Description 12/23/2012 Orders Only [place] [phone] Natalie Harris, JEANINE [address] [place] [address] DR RADIATION ONCOLOGY [place], [place] [id number] Social History Tobacco Use Types Packs/Day Years [...] on filedocumented in this encounter Care Teams Orthopedic Rn Relationship Specialty Start Date End Date Marck Brody DO [address] [place] [address] PCP - General 02/08/10 10/12/21 documented as of this encounter
--- OUTSIDE RECORDS SUMMARY | 2023-12-08 20:08 | XMS_ITS | Encounter Summary ---
Author Organization [facility] [place] [address] Care Team Providers Care Funeral Home Assistant Name Role Phone Marck Brody DO Primary Care Provider [phone] Reason for Visit * Reason Onset Date Comments Medical Care Coordination 04/02/2013 Encounter Details Date Type Department Care Team (Late st Contact Info) Description 04/02/2013 Telephone Hematology [place] [phone] Neo Sherman RN Medical Care Coordination Social History Tobacco Use Types Packs/Day Years Used Date Smoking Tobacco: Never Smokeless Tobacco: Never Sex and Gender Information Value Date Recorded Sex Assigned at Not on file Gender Identity Not on file Sexual Orientation Not on file documented as of this encounter Miscellaneous Notes * Telephone Encounter - Neo Sherman RN - 04/02/2013 11:51 AM EST Incoming call from patient: Theresa called to say she is concerned about get hypothroid so she is wanting to know if she can change her medication dose? Please call her at the home number [phone]. Returned call to patient: Confirmed with patient that Dr. Sherman felt her TSH level was within normal range and it would not be prudent to change dose of thyroid medication without a provider evaluation. I had tentatively set up an appointment for her to be seen in [facility] at [facility] in 6 months, but she does not want towait that long. She will call to schedule an appointment with Kimberly Montano APRN at [facility]. documented in this encounter Plan of Treatment Not on file documented as of this encounter Visit Diagnoses Not on filedocumented in this encounter Care Teams Funeral Home Assistant Relationship Specialty Start Date End Date Marck Brody DO [address] [place] [address] [address] [place] [address] PCP - General 02/08/10 10/12/21 documented as of this encounter
--- OUTSIDE RECORDS SUMMARY | 2023-12-08 20:08 | XMS_ITS | Encounter Summary ---
Author Organization [place] [address] Care Team Providers Care Casino Cage Cashier Name Role Phone Marck Brody DO Primary Care Provider Reason for Visit * Reason Comments Radiation Follow-up Encounter Details Date Type Department Care Team (Late st Contact Info) Description 12/22/2010 3:30 PM EDT Follow-Up Radiation Oncology at [address] [phone] Natalie Harris APRN [address] [place] [address] [place] [address] Bia Woodson MD [facility] [place] [address] Tongue cancer (Primary Dx) Discharge Disposition: Home Social History Tobacco Use Types Packs/Day Years Used Date Smoking Tobacco: Never Smokeless Tobacco: Never Sex and Gender Information Value Date Recorded Sex Assigned at Not on file Gender Identity Not on file Sexual Orientation Not on file documented as of this encounter Last Filed Vital Signs Vital Sign Reading Time Taken Comments Blood Pressure 122/74 12/22/2010 3:04 PM EDT Pulse 62 12/22/2010 3:04 PM EDT Temperature 36.9 ??C (98.4 ??F) 12/22/2010 3:04 PM ED T Respiratory Rate 16 12/22/2010 3:04 PM EDT Oxygen Saturation 99% 12/22/2010 3:04 PM EDT Inhaled Oxygen Concentration - - Weight 48.5 kg (106 lb 14.8 oz) 12/22/2010 3:04 PM EDT Height 159.5 cm (5' 2.8) 12/22/2010 3:04 PM EDT Body Mass Index 19.06 12/22/2010 3:04 PM EDT documented in this encounter Progress Notes * Natalie Harris, SENIOR INFORMATICA ETL DEVELOPER - 12/23/2010 4:33 PM EDT Subjective: Patient ID: Theresa Hollis is a myles 40 y.o. 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 She completed treatment 01/14/2007 She reports that she is doing well at this time. She was last seen in radiation oncology 08/25/2010 HPI At age 36 Ms. Theresa Hollis presented to her local dentist in 03/25 w/a non- healing sore on her L lateral tongue. She had a previous lesion 1 yr. prior which resolved w/steroid treatment. The dentist biopsied the lesion & treated her for thrush w/nystatin. The biopsy was read @ [facility] as dysplasia @ the basal aspect of [...] the lateral tongue. Final path review @ [facility]: a. 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 She is saw Dr Donis earlier today. She indicates that she has more energy and her weight has increased slightly. She has no complaints. None Mild Mod Severe Comments Pain: X Dysphagia: x [ ] in active POUCH MAKER therapy if she tries to eat too quickly Taste Changes: x good--patient avoids spicy foods due to irritation Xerostomia: x 90% fluid intake good. --evovax has been very effective Trismus: x Aspiration: x Dental problems: x [ ] using fluoride Rx [ x] checkups up to date--She sees her dentist every six months. Uses [employer] [facility] toothbrush--mouth rinse, biotene-- she has a new appointment coming up Food restrictions: x spicy foods only Fatigue: x Tobacco use: x Ethanol use: x Metastatic Sx: x Other: ROM restrictions Tightness/fibrosis in neck--unchanged Review of Systems Constitutional: Negative for fever, chills, diaphoresis, activity change, appetite change, fatigue and unexpected weight change. Patient has gained four lbs in four months. HENT: Positive for neck stiffness. Negative [...] joint swelling and arthralgias. Skin: Negative. Neurological: Negative. Negative for dizziness, tremors, facial asymmetry, speech difficulty, weakness, light-headedness, numbness and headaches. Unchanged speech mild speech alteration. Patient has had POUCH MAKER for this and is at her maximum function. Hematological: Negative. Psychiatric/Behavioral: Negative. Filed Vitals: 12/22/10 1504 BP: 122/74 Pulse: 62 Temp: 36.9 ??C (98.4 ??F) TempSrc: Oral Resp: 16 Height: 159.5 cm (5' 2.8) Weight: 48.5 kg (106 lb 14.8 oz) SpO2: 99% Recent Results (from the past 72 hour(s)) CBC (WITH DIFF) Component Value Range ??? WBC 4.5 4.0 - 10.0 (x10(3)/mcL) ??? RBC 3.90 (*) 3.93 - 5.22 (x10(6)/mcL) ??? Hemoglobin 13.3 11.2 - 15.7 (gm/dL) ??? Hematocrit 38.5 34.0 - 45.0 (%) ??? MCV 98.7 (*) 79.0 - 94.0 (fL) ??? MCH 34.1 (*) 26.6 - 32.2 (pg) ??? MCHC 34.5 32.0 - 36.5 (gm/dL) ??? Platelets 262 145 - 370 (x10(3)/mcL) ??? RDWSD 45.2 35.0 - 46.0 (fL) ??? RDWCV 12.6 10.9 - 14.4 (%) ??? MPV 9.6 9.0 - 12.0 (fL) COMPREHENSIVE METABOLIC PANEL (NON-FASTING) Component Value Range ??? Glucose Lvl 91 60 - 199 (mg/dL) ??? BUN 4 (*) 8 - 18 (mg/dL) ??? Creatinine 0.75 0.70 - 1.20 (mg/dL) ??? Sodium 141 135 - 145 (mmol/L) ??? Potassium 3.6 3.5 - 5.0 (mmol/L) ??? Chloride 105 98 - 107 (mmol/L) ??? CO2 27 22 - 31 (mmol/L) ??? Anion Gap 9 5 - 15 (mmol/L) ??? Calcium 9.3 8.5 - 10.5 (mg/dL) ??? Total Protein 7.0 6.4 - 8.3 (gm/dL) ??? Albumin 4.5 3.2 - 5.2 (gm/dL) ??? AST 17 0 - 30 (unit/L) ??? ALT 12 0 - 30 (unit/L) ??? Alk Phos 51 40 - 104 (unit/L) ??? Total Bilirubin 0.5 0.2 - 1.3 (mg/dL) ??? Bili, Direct 0.1 0.0 - 0.3 (mg/dL) ? ? Estimated GFR >60 >=60 A-DIFF Component Value Range ??? Neutrophils % 69.9 34.0 - 71.0 (%) ??? Neutr Abs (ANC) 3.15 1.50 - 6.30 (x10(3)/mcL) ??? Lymphocytes % 22.0 19.0 - 53.0 (%) ??? Lymphocytes Abs 1.0 1.0 - 3.6 (x10(3)/mcL) ??? Monocytes % 6.2 4.0 - 13.0 (%) ??? Monocyte Abs 0.3 0.2 - 1.0 (x10(3)/mcL) ??? Eosinophils % 1.3 0.0 - 7.0 (%) ??? Eosinophils Abs 0.1 0.0 - 0.5 (x10(3)/mcL) ??? Basophils % 0.4 0.0 - 2.0 (%) ??? Basophils Abs 0.0 0.0 - 0.2 (x10(3)/mcL) ??? Immature Gran % 0.20 0.00 - 0.66 (%) ??? Josselyn Gran Abs 0.01 0.00 - 0.05 (x10(3)/mcL) Physical Exam Vitals reviewed. Constitutional: She is oriented to person, place, and time. She appears well- developed and well-nourished. No distress. HENT: Head: Normocephalic. Mouth/Throat: Oropharynx is clear and moist. No oropharyngeal exudate. Tongue with reduced mobility. No leukoplakia, no thrush, mucous membranes moist, intact with no ulceration, no masses. No thrush. Mild trismus. Eyes: EOM are normal. Pupils are equal, round, and reactive to light. No scleral icterus. Neck: No thyromegaly present. Fibrosis of neck with reduced range of motion Cardiovascular: Regular rhythm and normal heart sounds. Exam reveals no gallop and no friction rub. No murmur heard. Pulmonary/Chest: Effort normal and breath sounds normal. No respiratory distress. She has no wheezes. She has no rales. She exhibits no tenderness. Musculoskeletal: She exhibits no edema and no [...] Judgment and thought contentnormal. Assessment and Plan: PA AND LATERAL CHEST, 12/22/10: HISTORY: Head [...] IMPRESSION IMPRESSION: No evidence of pulmonary metastasis. Assessment: Cancer of the lateral tongue. There is MALLY at this time and patient reports good quality of life and functional status. Hypothyroidism most likely due to radiation therapy is controlled. Continue current dose of levothyroxine. Theresa continues doing stretching exercises and doing massage to her neckto keep tissue flexibility. Patient is doing well overall PLAN 1. Patient is to return to clinic in Six months for CBC, CMP, TSH at that time. She is to call if she has any questions or concerns in the meantime. documented in this encounter Plan of Treatment Not on file documented as of this encounter Visit Diagnoses Diagnosis Tongue cancer- Primary Malignant neoplasm of tongue, unspecified site documented in this encounter Care Teams Casino Cage Cashier Relationship Specialty Start Date End Date Marck Brody DO [address] [place] [address] PCP - General 02/08/10 10/12/21 documented as of this encounter
--- OUTSIDE RECORDS SUMMARY | 2023-12-08 20:08 | XMS_ITS | Encounter Summary ---
[place] [address] Care Team Providers Care Dimensional Integration Engineer Name Role Phone Marck Brody DO Primary Care Provider Reason for Visit * Reason Onset Date Comments Medication Refill 01/21/2013 Encounter Details Date Type Department Care Team (Late st Contact Info) Description 01/21/2013 Refill [place] [phone] Natalie Harris[address] RADIATION ONCOLOGY [place], [place] [id number] Hypothyroidism (Primary Dx) Social History Tobacco Use Types Packs/Day Years Used Date Smoking Tobacco: Never Smokeless Tobacco: Never Sex and Gender Information Value Date Recorded Sex Assigned at Not on file Gender Identity Not on file Sexual Orientation Not on file documented as of this encounter Plan of Treatment Not on file documented as of this encounter Visit Diagnoses Diagnosis Hypothyroidism- Primary Unspecified hypothyroidism documented in this encounter Care Teams Dimensional Integration Engineer Relationship Specialty Start Date End Date Marck Brody DO [address] [place] [address] PCP - General 02/08/10 10/12/21 documented as of this encounter
--- OUTSIDE RECORDS SUMMARY | 2023-12-08 20:08 | XMS_ITS | Encounter Summary ---
Author Organization [facility] [place] [address] Care Team Providers Care Health Care Law Specialist Name Role Phone Marck Brody DO Primary Care Provider Encounter Details Date Type Department Care Team (Late st Contact Info) Description 01/18/2012 9:31 AM EDT - 01/18/2012 11:12 AM EDT Hospital En[place] [phone] Social History Tobacco Use Types Packs/Day Years [...] Diagnosis Comments MAMMO SCREENING CAD BILATERAL Routine 01/18/2012 9:41 AM EDT documented in this encounter Results * MAMMO DIGITAL BILATERAL SCREENING WITH CAD (01/18/2012 9:41 AM EDT) Anatomical Region Laterality Modality Breast Bilateral Mammography 01/18/2012 9:41 AM EDT Narrative 01/23/2012 10:54 AM EST BILATERAL MAMMOGRAPHY ?? REASON FOR EXAM: Screening ?? TECHNIQUE: Cranio-caudal (CC) and mediolateral oblique (MLO) views of both breasts obtained with direct digital capture. The exam was evaluated by CAD Version 8.3.17. In addition to the routine 2D imaging this exam was also performed with 3D tomographic imaging in MLO and CC projections. ?? FINDINGS: This is a negative mammogram (ACR Category 1). There is a stable fibroglandular pattern without significant change as compared to prior studies. There is no mammographic evidence of cancer. ? The breasts are heterogeneously dense which may limit mammographic sensitivity for the detection of malignancy. ? CONCLUSION ?? This is a NEGATIVE mammogram (ACR Category 1). Routine screening mammography is recommended with the frequency dependent on the patient's age and breast cancer risk factors. ?? A letter has been sent to this patient by [facility]. Procedure Note Ivette Brown MD - 01/23/2012 BILATERAL MAMMOGRAPHY REASON FOR EXAM: Screening TECHNIQUE: Cranio-caudal (CC) and mediolateral oblique (MLO) views of both breasts obtained with direct digital capture. The exam was evaluated byCAD Version 8.3.17. In addition to the routine 2D imaging this exam was also performed with 3D tomographic imaging in MLO and CC projections. FINDINGS: This is a negative mammogram (ACR Category 1). There is a stable fibroglandular pattern without significant change as compared to priorstudies. There is no mammographic evidence of cancer. The breasts are heterogeneously dense which may limit mammographicsensitivity for the detection of malignancy. CONCLUSION This is a NEGATIVE mammogram (ACR Category 1). Routine screeningmammography is recommended with the frequency dependent on the patient's age and breastcancer risk factors. A letter has been sent to this patient by the [facility]. Marck DYE MAMMO ORDERABLES documented in this encounter Visit Diagnoses Not on filedocumented in this encounter Care Teams Health Care Law Specialist Relationship Specialty Start Date End Date Marck Brody DO [address] [place] [address] PCP - General 02/08/10 10/12/21 documented as of this encounter
--- OUTSIDE RECORDS SUMMARY | 2023-12-08 20:08 | XMS_ITS | Encounter Summary ---
[place] [address] Care Team Providers Care Desktop Support Manager Name Role Phone Marck Brody DO Primary Care Provider Reason for Visit * Reason Onset Date Comments Medication Refill 10/13/2013 Encounter Details Date Type Department Care Team (Late st Contact Info) Description 10/13/2013 [place] [phone] Jess Lord V, RN Tongue cancer (Primary Dx) Social History [...] site documented in this encounter Care Teams Desktop Support Manager Relationship Specialty Start Date End Date Marck Brody DO [address] [place] [address] [address] [place], [place] [address] PCP - General 02/08/10 10/12/21 documented as of this encounter
--- OUTSIDE RECORDS SUMMARY | 2023-12-08 20:08 | XMS_ITS | Encounter Summary ---
Author Organization [facility] [place] [address] Care Team Providers Care Skoog Machine Operator Name Role Phone Marck Brody DO Primary Care Provider Encounter Details Date Type Department Care Team (Latest Contact Info) Description 01/18/2012 11:13 AM EDT - 01/18/2012 11:59 PM EDT Hospital [place] [phone] CLINIC, DR CARLEY Sherman, Marck Love MD [address] [place] [address] [place] [address] Tongue cancer; Hypothyroidism Discharge Disposition: Home Social History Tobacco [...] Procedure Name Priority Date/Time Associated Diagnosis Comments DIFFERENTIAL, AUTOMATED Routine 01/18/2012 11:27 AM EDT CBC (WITH DIFF) Routine 01/18/2012 11:27 AM EDT Tongue cancer TSH Routine 01/18/2012 11:27 AM EDT Hypothyroidism Tongue cancer COMPREHENSIVE METABOLIC PANEL Routine 01/18/2012 11:27 AM EDT Tongue cancer documented in this encounter Results * (ABNORMAL) DIFFERENTIAL, AUTOMATED (01/18/2012 11:27 AM EDT) Neutrophil % 77.5(H) 34.0 - 71.0 % CERNER MILLENNIUM Neutrophil Absolute 4.82 1.50 - 6.30 x10(3)/mc L CERNER MILLENNIUM Lymph % 14.0(L) 19.0 - 53.0 % CERNER MILLENNIUM Lymphocytes Abs 0.9(L) 1.0 - 3.6 x10(3)/mc L CERNER MILLENNIUM Monocyte % 6.9 4.0 - 13.0 % CERNER MILLENNIUM Monocyte Abs 0.4 0.2 - 1.0 x10(3)/mc L CERNER MILLENNIUM Eos % 0.8 0.0 - 7.0 % CERNER MILLENNIUM Eosinophils Abs 0.0 0.0 - 0.5 x10(3)/mc L CERNER MILLENNIUM Basophil % 0.5 0.0 - 2.0 % CERNER MILLENNIUM Baso Absolute 0.0 0.0 - 0.2 x10(3)/mc L CERN[facility] MILLENNIUM Immature Gran % 0.30 0.00 - 0.66 % CERNER MILLENNIUM Comment: Immature granulocytes(IG's)percentage and absolute count will include metamyelocytes, myelocytes, and promyelocytes. Blood smears from CBCs yielding IG's will be scanned manually for concordance. If this scan disagrees with the automated IG or if promyelocytes are noted, a manual differential will be performed. Immature Gran Absolute 0.02 0.00 - 0.05 x10(3)/mc L [facility] Blood specimen (specimen) 01/18/2012 11:27 AM EDT 01/18/2012 12:00 PM EDT Macrk Sherman MD HEMATOLOGY ORDERABLE S C[facility] MILLENNIUM * (ABNORMAL) CBC (with Diff) (01/18/2012 11:27 AM EDT) White Blood Cell 6.2 4.0 - 10.0 x10(3)/mc L [facility]ERN[facility] MILLENNIUM Red Blood Cell 4.02 3.93 - 5.22 x10(6)/mc L CERN[facility] MILLENNIUM Hemoglobin 13.9 11.2 - 15.7 gm/dL CERNER MILLENNIUM Hematocrit 41.2 34.0 - 45.0 % CERNER MILLENNIUM Mean Cell Volume 102.5(H) 79.0 - 94.0 fL CERNER MILLENNIUM Mean Cell Hemoglobin 34.6(H) 26.6 - 32.2 pg CERNER MILLENNIUM Mean Cell Hemoglobin Concentration 33.7 32.0 - 36.5 gm/dL CERNER MILLENNIUM Platelet 292 145 - 370 x10(3)/mc L CERNER MILLENNIUM RDW Standard Deviation 46.6(H) 35.0 - 46.0 fL CERN[facility] MILLENNIUM RDW coefficient of variation 12.6 10.9 - 14.4 % CERN[facility] MILLENNIUM Mean Platelet Volume 9.4 9.0 - 12.0 fL [facility]ILL[facility] Blood specimen (specimen) 01/18/2012 11:27 AM EDT 01/18/2012 12:00 PM EDT Narrative Resulting Agency Comment Spec In Lab Marck Sherman MD HEMATOLOGY ORDERABLE S CERTAMIKO BROCKENNIUM * TSH (01/18/2012 11:27 AM EDT) Thyroid Stimulating Hormone 0.73 0.27 - 4.20 mcIU/mL [facility] MILLENNI[facility] Blood specimen (specimen) 01/18/2012 11:27 AM EDT 01/18/2012 12:00 PM EDT Narrative Resulting Agency Comment Spec In Lab Marck Sherman MD CHEMISTRY ORDERABLES CERNER MILLENNIUM * (ABNORMAL) Comprehensive metabolic panel (non-fasting) (01/18/2012 11:27 AM EDT) Glucose 87 60 - 199 mg/dL CERNER MILLENNIUM Comment:Diabetes: >=200 mg/d L plus symptoms Blood Urea Nitrogen 7(L) 8 - 18 mg/dL CERNER MILLENNIUM Creatinine 0.84 0.70 - 1.20 mg/dL CERNER MILLENNIUM Comment: Please note that the pediatric reference intervals supplied above were not validated at [facility] [place]. Results from pediatric patients [...] Laboratory if there are any questions. Chloride 104 98 - 107 mmol/L CERNER MILLENNIUM Carbon Dioxide 27 22 - 31 mmol/L CERNER MILLENNIUM Anion Gap 10 5 - 15 mmol/L CERNER MILLENNIUM Calcium 9.3 8.5 - 10.5 mg/dL CERN[facility] MILLENNIUM Protein, Total 7.1 6.4 - 8.3 gm/dL CERNER MILLENNIUM Albumin [...] past week). For patients multiply eGFR by 1.2. The MDRD equation was developed using patients between the ages of 18 and 70 years. ?? The MDRD equation has not been validated for patients < 18 years of age and should not be used to assess renal function in the pediatric population. ??The MDRD eGFR equation will also overestimate the true GFR of patients above the age of 70. ??This overestimation is variable but increases with age. At present, NKDEP does NOT recommend using [...] with diabetic kidney disease. References: http://nkdep.nih.gov/resources/NKDEP_Suggestn4Labs_0606_508.pdf http://www.kidney.org/professionals/kls/pdf/faq_gfr.pdf Santhosh K, Constantino NA, Naomie AK, Danny TS, Mt AD, Jacky ELVIA. Relative performance of the MDRD and CKD-EPI equations for estimating glomerular filtration rate among patients with varied clinical presentations. Clin J Am Soc Nephrol;6:1963-72. Blood specimen (specimen) 01/18/2012 11:27 AM EDT 01/18/2012 12:00 PM EDT Narrative Resulting Agency Comment Spec In Lab Marck Sherman MD CHEMISTRY ORDERABLES [facility] documented in this encounter Visit Diagnoses Diagnosis Tongue cancer Malignant neoplasm of tongue, unspecified site Hypothyroidism Unspecified hypothyroidism documented in this encounter Care Teams Skoog Machine Operator Relationship Specialty Start Date End Date Marck Brody DO [address] [place] [address] PCP - General 02/08/10 10/12/21 documented as of this encounter
--- OUTSIDE RECORDS SUMMARY | 2023-12-08 20:08 | XMS_ITS | Encounter Summary ---
Author Organization [facility] Address [facility] [place] [address] Care Team Providers Care Diesel Engine I Pipe Fitter Name Role Phone Marck Brody DO Primary Care Provider Encounter Details Date Type Department Care Team (Latest Contact Info) Description 01/18/2012 9:20 AM EDT - 01/18/2012 9:30 AM EDT Hospital [place] [facility] [place] [address] Malignant neoplasm of tongue, unspecified site Social History Tobacco Use Types Packs/Day Years [...] Comments XR CHEST PA AND LATERAL Routine 01/18/2012 9:30 AM EDT Malignant neoplasm of tongue, unspecified site documented in this encounter Results * XR CHEST ROUTINE PA & LATERAL (01/18/2012 9:30 AM EDT) Anatomical Region Laterality Modality Chest N/A Radiographic Suzie ging 01/18/2012 9:30 AM EDT Narrative 01/18/2012 3:08 PM EDT Examination CHEST ROUTINE PA+LAT Clinical History Reason for exam and clinical history: pulmonary mets?; Comparison 12/22/2010. Technique PA and lateral chest radiograph. Findings The cardiomediastinal silhouette is normal. The lungs are clear without evidence of focal consolidation, pulmonary nodules, effusions, or pneumothoraces. ?? The stomach is dilated and filled with air. ?? Impression No evidence of pulmonary metastasis. Film and interpretation reviewed by the attending Procedure Note Iqra Fish MD - 01/19/2012 Examination CHEST ROUTINE PA+LAT Clinical History Reason for exam and clinical history: pulmonary mets?; Comparison 12/22/2010. Technique PA and lateral chest radiograph. Findings The cardiomediastinal silhouette is normal. The lungs are clear without evidence of focal consolidation, pulmonary nodules, effusions, or pneumothoraces. The stomach is dilated and filled with air. Impression No evidence of pulmonary metastasis. Film and interpretation reviewed by the attending Roberth Lee MD IMG DX ORDERABLES documented in this encounter Visit Diagnoses Diagnosis Malignant neoplasm of tongue, unspecified site documented in this encounter Care Teams Diesel Engine I Pipe Fitter Relationship Specialty Start Date End Date Marck Brody DO [address] [place] [address] [address] PCP - General 02/08/10 10/12/21 documented as of this encounter
--- OUTSIDE RECORDS SUMMARY | 2023-12-08 20:08 | XMS_ITS | Encounter Summary ---
Author Organization [facility] [address] Care Team Providers Care Dye Can Operator Name Role Phone Marck Brody DO Primary Care Provider Encounter Details Date Type Department Care Team (Late st Contact Info) Description 12/22/2010 Orders [place] [address] Yudy Jamison, [place] [address] Tongue cancer (Primary Dx) Social History Tobacco [...] site documented in this encounter Care Teams Dye Can Operator Relationship Specialty Start Date End Date Marck Brody DO [address] [place] [address] PCP - General 02/08/10 10/12/21 documented as of this encounter
--- OUTSIDE RECORDS SUMMARY | 2023-12-08 20:08 | XMS_ITS | Encounter Summary ---
Author Organization [facility] [address] Care Team Providers Care Civil Engineering Intern Name Role Phone Marck Brody DO Primary Care Provider Encounter Details Date Type Department Care Team (Latest Contact Info) Description 12/22/2010 10:46 AM EDT - 12/22/2010 11:59 PM EDT Hospital [place] [phone] CLINIC, DR CARLEY Sifuentes, Wilfrid Reina MD [facility] HEMATOLOGY/[place] [address] Tongue cancer Discharge Disposition: Home Social History [...] by mouth 3 times daily. 90 capsule 08/25/2010 08/25/2011 LORazepam (ATIVAN) 1 mg tablet 1 MG = 1 Tablet(s), PO, Twice daily PRN 01/27/2010 06/29/2011 documented as of this encounter Plan of Treatment Not on file documented as of this encounter Procedures Procedure Name Priority Date/Time Associated Diagnosis Comments DIFFERENTIAL, AUTOMATED STAT 12/22/2010 10:53 AM EDT CBC (WITH DIFF) STAT 12/22/2010 10:53 AM EDT Tongue cancer COMPREHENSIVE METABOLIC PANEL STAT 12/22/2010 10:53 AM EDT Tongue cancer documented in this encounter Results * A-DIFF (12/22/2010 10:53 AM EDT) Neutrophil % 69.9 34.0 - 71.0 % CERNER MILLENNIUM Neutrophil Absolute 3.15 1.50 - 6.30 x10(3)/mcL CERNER MILLENNIUM Lymph % 22.0 19.0 - 53.0 % CERNER MILLENNIUM Lymphocytes Abs 1.0 1.0 - 3.6 x10(3)/mcL CERNER MILLENNIUM Monocyte % 6.2 4.0 - 13.0 % CERNER MILLENNIUM Monocyte Abs 0.3 0.2 - 1.0 x10(3)/mcL CERNER MILLENNIUM Eos % 1.3 0.0 - 7.0 % CERNER MILLENNIUM Eosinophils Abs 0.1 0.0 - 0.5 x10(3)/mcL CERNER MILLENNIUM Basophil % 0.4 0.0 - 2.0 % CERNER MILLENNIUM Baso Absolute 0.0 0.0 - 0.2 x10(3)/mcL CERNER MILLENNIUM Immature Gran % 0.20 0.00 - 0.66 % CERNER MILLENNIUM Comment: Immature granulocytes(IG's)percentage and absolute count will include metamyelocytes, myelocytes, and promyelocytes. Blood smears from CBCs yielding IG's will be scanned manually for concordance. If this scan disagrees with the automated IG or if promyelocytes are noted, a manual differential will be performed. Immature Gran Absolute 0.01 0.00 - 0.05 x10(3)/mcL CERNER MILLENNIUM Blood specimen (specimen) 12/22/2010 10:53 AM EDT 12/22/2010 11:06 AM EDT Wilfrid Sifuentes MD HEMATOLOGY ORDERAB LES CERNER MILLENNIUM * (ABNORMAL) Comprehensive metabolic panel (non-fasting) (12/22/2010 [...] EDT Wilfrid Sifuentes MD CHEMISTRY ORDERABL ES [facility] * (ABNORMAL) CBC (with Diff) (12/22/2010 10:53 [...] Hemoglobin Concentration 34.5 32.0 - 36.5 gm/dL [facility] Platelet 262 145 - 370 x10(3)/mc L [facility] RDW Standard Deviation 45.2 35.0 - 46.0 fL [facility] RDW coefficient of variation 12.6 10.9 - 14.4 % [facility] Mean Platelet Volume 9.6 9.0 - 12.0 fL [facility] Blood specimen (specimen) 12/22/2010 10:53 AM EDT 12/22/2010 11:06 AM EDT Wilfrid Siufentes MD HEMATOLOGY ORDERAB LES [facility] documented in this encounter Visit Diagnoses Diagnosis Tongue cancer Malignant neoplasm of tongue, unspecified site documented in this encounter Care Teams Civil Engineering Intern Relationship Specialty Start Date End Date Marck Brody DO [address] [place] [address] PCP - General 02/08/10 10/12/21 documented as of this encounter
--- OUTSIDE RECORDS SUMMARY | 2023-12-08 20:08 | XMS_ITS | Encounter Summary ---
Author Organization [facility] [place] [address] Care Team Providers Care Dining Car Steward Name Role Phone Marck Brody DO Primary Care Provider Encounter Details Date Type Department Care Team (Late st Contact Info) Description 02/03/2013 Orders Only Hematology [place] [address] Marck Sherman MD [address] [place] [address] [place] [address] Tongue cancer (Primary Dx) Social History Tobacco Use Types Packs/Day Years Used Date Smoking Tobacco: Never Smokeless Tobacco: Never Sex and Gender Information Value Date Recorded Sex Assigned at Not on file Gender Identity Not on file Sexual Orientation Not on file documented as of this encounter Progress Notes * Neo Sherman RN - 02/03/2013 1:29 PM EST Encounter opened in error documented in this encounter Plan of Treatment Not on file documented as of this encounter Visit Diagnoses Diagnosis Tongue cancer- Primary Malignant neoplasm of tongue, unspecified site documented in this encounter Care Teams Dining Car Steward Relationship Specialty Start Date End Date Marck Brody DO [address] [place] [address] [address] [place] [address] PCP - General 02/08/10 10/12/21 documented as of this encounter
--- OUTSIDE RECORDS SUMMARY | 2023-12-08 20:08 | XMS_ITS | Encounter Summary ---
Author Organization [facility] Address [facility] [place] [address] Care Team Providers Care Nailing Machine Operator Automatic Name Role Phone Marck Brody DO Primary Care Provider [phone] Encounter Details Date Type Department Care Team (Late st Contact Info) Description 08/25/2010 1:24 PM EDT Hospital Encounter [place]ology [place] [phone] Lindsey Gar APRN [facility] HEMATOLOGY/[place] [address] Social History Tobacco Use Types Packs/Day Years Used Date Smoking Tobacco: Never Sex and Gender Information Value Date Recorded Sex Assigned at Not on file Gender Identity Not on file Sexual Orientation Not on file documented as of this encounter Medications at Time of Discharge Medication Sig Dispensed Refills Start Date End Date LORazepam (ATIVAN) 1 mg tablet 1 MG = 1 Tablet(s), PO, Twice daily PRN 01/27/2010 06/29/2011 documented as of this encounter Plan of Treatment Not on file documented as of this encounter Visit Diagnoses Not on filedocumented in this encounter Care Teams Nailing Machine Operator Automatic Relationship Specialty Start Date End Date Marck Brody DO [address] [place], [place] [address] PCP - General 02/08/10 10/12/21 documented as of this encounter
--- OUTSIDE RECORDS SUMMARY | 2023-12-08 20:08 | XMS_ITS | Encounter Summary ---
Author Organization [facility] [place] [address] Care Team Providers Care Administrative Professional Name Role Phone Marck Brody DO Primary Care Provider Encounter Details Date Type Department Care Team (Latest Contact Info) Description 02/03/2013 8:35 AM EST - 02/03/2013 11:59 PM [facility] Hospital Encounter [place]ematology [place] [phone] CLINIC, DR CARLEY Sherman, Marck Love MD [address] [place] [address] [place] [address] Tongue cancer; Hypothyroidism; Irradiation-induced hypothyroidism Discharge Disposition: Home Social History Tobacco [...] Date/Time Associated Diagnosis Comments DIFFERENTIAL, AUTOMATED Routine 02/03/2013 8:47 AM EST CBC (WITH DIFF) Routine 02/03/2013 8:47 AM EST Tongue cancer TSH Routine 02/03/2013 8:47 AM EST Hypothyroidism Tongue cancer Irradiation-induced hypothyroidism COMPREHENSIVE METABOLIC PANEL Routine 02/03/2013 8:47 AM EST Tongue cancer documented in this encounter Results * Differential, Automated (02/03/2013 8:47 AM EST) Neutrophil % 67.2 34.0 - 71.0 % CERNER MILLENNIUM Neutrophil Absolute 3.51 1.50 - 6.30 x10(3)/mcL CERNER MILLENNIUM Lymph % 22.6 19.0 - 53.0 % CERNER MILLENNIUM Lymphocytes Abs 1.2 1.0 - 3.6 x10(3)/mcL CERNER MILLENNIUM Monocyte % 6.9 4.0 - 13.0 % CERNER MILLENNIUM Monocyte Abs 0.4 0.2 - 1.0 x10(3)/mcL CERNER MILLENNIUM Eos % 2.5 0.0 - 7.0 % CERNER MILLENNIUM Eosinophils Abs 0.1 0.0 - 0.5 x10(3)/mcL CERNER MILLENNIUM Basophil % 0.6 0.0 - 2.0 % CERNER MILLENNIUM Baso [...] 0.05 x10(3)/mcL [facility]ERNER MILLENNIUM Blood specimen (specimen) 02/03/2013 8:47 AM EST 02/03/2013 8:54 AM EST Marck Sherman MD HEMATOLOGY ORDERABLE S [facility] * TSH (02/03/2013 8:47 AM EST) Thyroid Stimulating Hormone 1.48 0.27 - 4.20 mcIU/mL CERNER MILLENNIUM Blood specimen (specimen) 02/03/2013 8:47 AM EST 02/03/2013 8:54 AM EST Narrative Resulting Agency Comment Spec In Lab Marck Sherman MD CHEMISTRY ORDERABLES [facility] BROCK[facility] * (ABNORMAL) CBC (with Diff) (02/03/2013 8:47 AM EST) White Blood Cell 5.2 4.0 - 10.0 x10(3)/mc L CERNER MILLENNIUM Red Blood Cell 4.00 3.93 - 5.22 x10(6)/mc L CERNER MILLENNIUM Hemoglobin 13.7 11.2 - 15.7 gm/dL CERNER MILLENNIUM Hematocrit 40.4 34.0 - 45.0 % CERNER MILLENNIUM Mean Cell Volume 101.0(H) 79.0 - 94.0 fL CERNER MILLENNIUM Mean Cell Hemoglobin 34.3(H) 26.6 - 32.2 pg CERNER MILLENNIUM Mean Cell Hemoglobin Concentration 33.9 32.0 - 36.5 gm/dL CERNER MILLENNIUM Platelet 307 145 - 370 x10(3)/mc L CERNER MILLENNIUM RDW Standard Deviation 46.7(H) 35.0 - 46.0 fL CERNER MILLENNIUM RDW coefficient of variation 12.6 10.9 - 14.4 % CERNER MILLENNIUM Mean Platelet Volume 9.3 9.0 - 12.0 fL [facility]ERNER MILLENNIUM Blood specimen (specimen) 02/03/2013 8:47 AM EST 02/03/2013 8:54 AM EST Narrative Resulting Agency Comment Spec In Lab Marck Sherman MD HEMATOLOGY ORDERABLE S CERNER MILLENNIUM * (ABNORMAL) Comprehensive metabolic panel (non-fasting) (02/03/2013 8:47 AM EST) [facility] Signature Glucose 86 60 - 199 mg/dL CERNER MILLENNIUM Comment:Diabetes: >=200 mg/d L plus symptoms Blood Urea Nitrogen 5(L) 8 - 18 mg/dL CERNER MILLENNIUM Creatinine 0.75 0.70 - 1.20 mg/dL CERNER MILLENNIUM Comment: Please note that the pediatric reference intervals supplied above were not validated at [facility] [place]. Results from pediatric patients should be interpreted in conjunction to the patient's age, height and muscle mass. Sodium 140 135 - 145 mmol/L CERNER MILLENNIUM Potassium 3.9 3.5 - 5.0 mmol/L CERNER MILLENNIUM Comment: Please note: ??Patients with WBC >100,000 may have falsely elevated Potassium levels. ??For accurate Potassium quantification in these patients send serum separator tube (gold top) for subsequent determinations. ??Contact the Clinical Chemistry Laboratory if there are any questions. Chloride 104 98 - 107 mmol/L CERNER MILLENNIUM Carbon Dioxide 25 22 - 31 mmol/L [facility]ERNER MILLENNIUM Anion Gap 11 5 - 15 mmol/L [facility]ERNER MILLENNIUM Calcium 9.6 8.5 - 10.5 mg/dL [facility] MILLENNIUM Protein, Total 7.0 6.4 - 8.3 gm/dL [facility] MILLENNIUM Albumin 4.7 3.2 - 5.2 gm/dL [facility] MILLENNIUM Aspartate Aminotransferase 18 0 - 30 unit/L CERNER MILLENNIUM Alanine Aminotransferase 14 0 - 30 unit/L [facility]ERNER MILLENNIUM Alkaline Phosphatase 48 40 - 104 unit/L CERNER MILLENNIUM Bilirubin, Total 0.6 0.2 - 1.3 mg/dL CERNER MILLENNIUM Bilirubin, [...] the following links into your internet browser. 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
--- OUTSIDE RECORDS SUMMARY | 2023-12-08 20:08 | XMS_ITS | Encounter Summary ---
Author Organization [facility] [place] [address] Care Team Providers Care Press Tender Star Signal Name Role Phone Marck Brody DO Primary Care Provider [phone] Encounter Details Date Type Department Care Team (Late st Contact Info) Description 02/03/2013 Orders Only Hematology [place] [address] Kimberly Montano, JEANINE [address] [facility] [place] [address] Tongue cancer (Primary Dx); Hypothyroidism (acquired) Social History Tobacco Use Types [...] Primary Malignant neoplasm of tongue, unspecified site Hypothyroidism (acquired) Unspecified hypothyroidism documented in this encounter Care Teams Press Tender Star Signal Relationship Specialty Start Date End Date Marck Brody DO [address] [place] [address] PCP - General 02/08/10 10/12/21 documented as of this encounter
--- OUTSIDE RECORDS SUMMARY | 2023-12-08 20:08 | XMS_ITS | Encounter Summary ---
Author Organization [facility] [place] [address] Care Team Providers Care Dynamics Ax Solution Architect Name Role Phone Marck Brody DO Primary Care Provider [phone] Reason for Visit * Reason Onset Date Comments Medication Refill 07/25/2010 Encounter Details Date Type Department Care Team (Late st Contact Info) Description 07/25/2010 [place] [phone] Carolyn Mello, RN Social History Tobacco Use Types Packs/Day Years Used Date Smoking Tobacco: Never Assessed Sex and Gender Information Value Date Recorded Sex Assigned at Not on file Gender Identity Not on file Sexual Orientation Not on file documented as of this encounter Plan of Treatment Not on file documented as of this encounter Visit Diagnoses Not on filedocumented in this encounter Care Teams Dynamics Ax Solution Architect Relationship Specialty Start Date End Date Marck Brody DO [address] [place], [place] [address] PCP - General 02/08/10 10/12/21 documented as of this encounter
--- OUTSIDE RECORDS SUMMARY | 2023-12-08 20:08 | XMS_ITS | Encounter Summary ---
[place] [address] Care Team Providers Care Animal Care Taker Name Role Phone Marck Brody DO Primary Care Provider Encounter Details Date Type Department Care Team (Late st Contact Info) Description 12/23/2012 Orders Only [place] [phone] Natalie Harris, JEANINE [address] [place] [address] DR RADIATION ONCOLOGY [place], [place] [id number] Hypothyroidism (Primary Dx) Social History Tobacco Use [...] hypothyroidism documented in this encounter Care Teams Animal Care Taker Relationship Specialty Start Date End Date Marck Brody DO [address] [place] [address] PCP - General 02/08/10 10/12/21 documented as of this encounter
--- OUTSIDE RECORDS SUMMARY | 2023-12-08 20:08 | XMS_ITS | Encounter Summary ---
Author Organization [facility] [place] [address] Care Team Providers Care Services Executive Name Role Phone Marck Brody DO Primary Care Provider [phone] Reason for Visit * Reason Comments Follow-up Encounter Details Date Type Department Care Team (Latest Contact Info) Description 08/25/2010 1:24 PM EDT - 08/25/2010 11:59 PM EDT Hospital Encounter Hematology [place] [phone] Wilfrid Sifuentes MD [facility] HEMATOLOGY/[place] [address] Hypothyroidism; Tongue cancer Discharge Disposition: Home Social History [...] as of this encounter Results * TSH (08/25/2010 1:31 PM EDT) Thyroid Stimulating Hormone 0.75 0.27 - 4.20 mcIU/mL [facility] Blood specimen (specimen) 08/25/2010 1:31 PM EDT 08/25/2010 1:36 PM EDT Wilfrid Sifuentes MD CHEMISTRY ORDERABL ES [id number] documented in this encounter Visit Diagnoses Diagnosis Hypothyroidism Unspecified hypothyroidism Tongue cancer Malignant neoplasm of tongue, unspecified site documented in this encounter Care Teams Services Executive Relationship Specialty Start Date End Date Marck Brody DO [address] [place] [address] [address] [place] [address] PCP - General 02/08/10 10/12/21 documented as of this encounter
--- OUTSIDE RECORDS SUMMARY | 2023-12-08 20:08 | XMS_ITS | Encounter Summary ---
Author Organization [facility] [place] [address] Care Team Providers Care Molder Feeder Name Role Phone Marck Brody DO Primary Care Provider [phone] Reason for Visit * Reason Comments Radiation Follow-up tongue cancer Encounter Details Date Type Department Care Team (Late st Contact Info) Description 07/04/2012 10:30 AM EDT Follow-Up Radiation Oncology at [address] [address] Natalie Harris RUBBER PRESS TENDER [address] [place] [address] [place] [address] Hypothyroidism (Primary Dx); Tongue cancer; Anemia Discharge Disposition: Home Social History Tobacco Use Types Packs/Day Years Used Date Smoking Tobacco: Never Smokeless Tobacco: Never Sex and Gender Information Value Date Recorded Sex Assigned at Not on file Gender Identity Not on file Sexual Orientation Not on file documented as of this encounter Last Filed Vital Signs Vital Sign Reading Time Taken Comments Blood Pressure 112/70 07/04/2012 10:20 AM EDT Pulse 63 07/04/2012 10:20 AM EDT Temperature - - Respiratory Rate 16 07/04/2012 10:20 AM EDT Oxygen Saturation 100% 07/04/2012 10:20 AM EDT Inhaled Oxygen Concentration - - Weight 49.9 kg (110 lb) 07/04/2012 10:20 AM EDT Height - - Body Mass Index 19.49 01/18/2012 1:46 PM EDT documented in this encounter Progress Notes * Natalie Harris, RUBBER PRESS TENDER - 07/04/2012 10:45 AM EDT Subjective: Patient ID: Theresa Hollis is a myles 42 y.o. female being seen in Radiation Oncology [...] thrush w/nystatin. The biopsy was read @ [facility] as dysplasia @ the basal aspect of [...] the lateral tongue. Final path review @ [facility]: a. Tongue, L, biopsy: squamous cell ca, [...] cancer of the left lateral tongue Stage: [id number] Surgery(ies): 10/31/06 - Hemiglossectomy, left neck dissection [...] has been doing very well. 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 She reports no specific complaints at this time. She has no complaints. None Mild Mod Severe Comments Pain: X Dysphagia: x [ ] in active DAM TENDER ASSISTANT therapy if she tries to eat too quickly Taste Changes: x good--patient avoids spicy foods due to irritation Xerostomia: x 90% fluid intake good. --evovax has been very effective Trismus: x Aspiration: x Dental problems: x [ ] using fluoride Rx [ x] checkups up to date--She sees her dentist every six months. Uses sonic care toothbrush--mouth rinse, biotene-- no dental concerns and no jaw pain Food restrictions: x spicy foods only Fatigue: x Tobacco use: x Ethanol use: x Metastatic Sx: x Other: ROM restrictions Mild to moderate tightness/fibrosis in neck--unchanged and continues with regular massage Review of Systems Constitutional: Negative for fever, [...] speech mild speech alteration. Patient has had DAM TENDER ASSISTANT for this and is at her maximum function. Hematological: Negative. Psychiatric/Behavioral: Negative. Filed Vitals: 07/04/12 1020 BP: 112/70 Pulse: 63 Resp: 16 Weight: 49.896 kg (110 lb) SpO2: 100% Physical Exam Vitals reviewed. Constitutional: She is [...] Judgment and thought contentnormal. Assessment and Plan: Assessment/plan: Cancer of the lateral tongue. There is MALLY at this time and patient reports good quality of life and functional status. Hypothyroidism most likely due to radiation therapy. TSH is 0.12 . Levothyroxine to continue at 112 mcg a day. Theresa continues doing stretching exercises and doing massage to her neck to keep tissue flexibility. Patient is doing well overall. She will be seeing Dr Donis and Lane in January have a CBC, CMP, TSH and chest x-ray at that time Theresa is five years from completion of treatment. We discussed that yearly follow up at [facility] by Dr Sherman and/or Dr Lee is recommended with ongoing monitoring of labs, including TSH, CBC, CMP and chest x-ray and that she will be discharged from radiation oncology. She is encouraged to call if she has any questions or concerns. Her levothyroxine was renewed for a year. She was praised for hercourage and resilience in the midst of a most difficult cancer journey documented in this encounter Miscellaneous Notes * Advance Care Plan Note - Natalie Harris APRN - 07/04/2012 3:06 PM EDT ADVANCE CARE PLANNING NOTE I. WHEN TO USE THIS FORM: This Advance Care Planning Note should be used for patients with decisional capacity who have not executed advance directives, such as a Durable Power of Ferryboat Helper for Health Care. DETERMINATION OF CAPACITY The basis for decisional capacity entails all of the following criteria. The patient, Theresa Hollis, must be able (in a general way) to understand: ?? Her condition ?? Treatment alternatives ?? Potential benefits and risks of proposed treatments/interventions The patient has the capacity to make decisions: Yes If the patient does not have decisional capacity, go no further. This form cannot be used. II. DESIGNATION OF DECISION MAKER The patient, Theresa Hollis, expresses the following preference: Designation of health care agent: The patient, Theresa Hollis, identifies the following individual to serve as a health care agent, authorized to speak for the individual in making medical treatment decisions in the future if he/she is unable to speak for him/herself. Name: Junior Hollis Relationship to patient: Alternate decision maker: Theresa's parents IV: OTHERS PRESENT The following person/people were also present during the discussion. Name(s) with role or relationship to patient: Junior Hollis-- V. OTHER COMMENTS Theresa indicates that she has not executed an advanced directive but that after our discussion that she understands the value of doing so. She will go on line to find and complete the document and will bring a copy to [facility]. She wants her to be her health care agent in the event she does not have the capacity to make such decisions and he knows her values and preferences. documented in this encounter Plan of Treatment Not on file documented as of this encounter Results * Vitamin B12 (02/03/2013 8:47 AM EST) Vitamin B12 444 207 - 974 pg/mL [facility] Blood specimen (specimen) 02/03/2013 8:47 AM EST 02/03/2013 8:54 AM EST Narrative Resulting Agency Comment Spec In Lab Francisco Cervantes MD CHEMISTRY ORDERABLES Performing Organization Address [facility] de Phone Number [facility] * Folate, serum (02/03/2013 8:47 AM EST) Folate 15.0 4.6 - 34.8 ng/mL [facility] Blood specimen (specimen) 02/03/2013 8:47 AM EST 02/03/2013 8:54 AM EST Narrative Resulting Agency Comment Spec In Lab Francisco Cervantes MD CHEMISTRY ORDERABLES Performing Organization Address [facility]/ZIP Co de Phone Number [facility] documented in this encounter Visit Diagnoses Diagnosis Hypothyroidism- Primary Unspecified hypothyroidism Tongue cancer Malignant neoplasm of tongue, unspecified site Anemia Anemia, unspecified documented in this encounter Care Teams Molder Feeder Relationship Specialty Start Date End Date Marck Brody DO [address] [place] [address] PCP - General 02/08/10 10/12/21 documented as of this encounter
--- OUTSIDE RECORDS SUMMARY | 2023-12-08 20:08 | XMS_ITS | Encounter Summary ---
[place] [address] Care Team Providers Care Cord Splicer Name Role Phone Marck Brody DO Primary Care Provider [phone] Reason for Visit * Reason Onset Date Comments Medication Refill 08/25/2010 Encounter Details Date Type Department Care Team (Late st Contact Info) Description 08/25/2010 Refill [place] [phone] Natalie Harris[address] RADIATION ONCOLOGY [place], [place] [phone] Social History Tobacco Use Types Packs/Day Years Used Date Smoking Tobacco: Never Sex and Gender Information Value Date Recorded Sex Assigned at Not on file Gender Identity Not on file Sexual Orientation Not on file documented as of this encounter Plan of Treatment Not on file documented as of this encounter Visit Diagnoses Not on filedocumented in this encounter Care Teams Cord Splicer Relationship Specialty Start Date End Date Marck Brody DO [address] [place], [place] [address] PCP - General 02/08/10 10/12/21 documented as of this encounter
--- OUTSIDE RECORDS SUMMARY | 2023-12-08 20:08 | XMS_ITS | Encounter Summary ---
Author Organization [facility] [place] [address] Care Team Providers Care Top And Seat Cover Fitter Name Role Phone Marck Brody DO Primary Care Provider [phone] Encounter Details Date Type Department Care Team (Latest Contact Info) Description 08/25/2010 1:24 PM EDT - 08/25/2010 11:59 PM EDT Hospital [place] [address] CLINIC, DR CARLEY Sifuentes, Wilfrid Reina MD [facility] HEMATOLOGY/[place] [address] Tongue cancer; Hypothyroidism Discharge Disposition: Home Social [...] Date/Time Associated Diagnosis Comments DIFFERENTIAL, AUTOMATED STAT 08/25/2010 1:31 PM EDT CBC (WITH DIFF) STAT 08/25/2010 1:31 PM EDT Tongue cancer TSH Routine 08/25/2010 1:31 PM EDT Hypothyroidism Tongue cancer LACTATE DEHYDROGENASE STAT 08/25/2010 1:31 PM EDT Tongue cancer COMPREHENSIVE METABOLIC PANEL STAT 08/25/2010 1:31 PM EDT Tongue cancer documented in this encounter Results * (ABNORMAL) REFLEX LAB-A-DIFF (08/25/2010 1:31 PM EDT) Neutrophil % 85.8(H) 34.0 - 71.0 % [facility] Neutrophil Absolute 8.10(H) 1.50 - 6.30 x10(3)/mc L [facility] Lymph % 7.9(L) 19.0 - 53.0 % [facility]ILL[facility] Lymphocytes Abs 0.8(L) 1.0 - 3.6 x10(3)/mc L [facility]ILL[facility] Monocyte % 4.4 4.0 - 13.0 % [facility]ILLENNI[facility] Monocyte Abs 0.4 0.2 - 1.0 x10(3)/mc L [facility] MILLENNI[facility] Eos % 1.3 0.0 - 7.0 % [facility] MILLENNI[facility] Eosinophils Abs 0.1 0.0 - 0.5 x10(3)/mc L [facility]ILLENNI[facility] Basophil % 0.3 0.0 - 2.0 % [facility] MILLENNIUM Baso [...] performed. Immature Gran Absolute 0.03 0.00 - 0.05 x10(3)/mc L [facility] Blood specimen (specimen) 08/25/2010 1:31 PM EDT 08/25/2010 1:36 PM EDT Wilfrid Sifuentes MD HEMATOLOGY ORDERAB LES Performing Organization Address [facility] de Phone Number [facility] * TSH (08/25/2010 1:31 PM EDT) Thyroid Stimulating Hormone 0.75 0.27 - 4.20 mcIU/mL [facility] Blood specimen (specimen) 08/25/2010 1:31 PM EDT 08/25/2010 1:36 PM EDT Wilfrid Sifuentes MD CHEMISTRY ORDERABL ES Performing Organization Address [facility] Phone Number [facility] * LDH (08/25/2010 1:31 PM EDT) Lactate Dehydrogenase 119 110 - 220 unit/L [facility] Blood specimen (specimen) 08/25/2010 1:31 PM EDT 08/25/2010 1:36 PM EDT Wilfrid Sifuentes MD CHEMISTRY ORDERABL ES Performing Organization Address [facility] Phone Number [facility] * (ABNORMAL) Comprehensive metabolic panel (non-fasting) (08/25/2010 1:31 PM EDT) Glucose 92 60 - 199 mg/dL [facility] Comment:Diabetes: >=200 mg/d L plus symptoms Blood Urea Nitrogen 6(L) 8 - 18 mg/dL [facility] Creatinine 0.65(L) 0.70 - 1.20 mg/dL CERNER [...] Platelet Volume 9.2 9.0 - 12.0 fL [facility]ILL[facility] Blood specimen (specimen) 08/25/2010 1:31 PM EDT 08/25/2010 1:36 PM EDT Wilfrid Sifuentes MD HEMATOLOGY ORDERAB LES [facility]ILLEN[facility] documented in this encounter Visit Diagnoses Diagnosis Tongue cancer Malignant neoplasm of tongue, unspecified site Hypothyroidism Unspecified hypothyroidism documented in this encounter Care Teams Top And Seat Cover Fitter Relationship Specialty Start Date End Date Marck Brody DO [address] [place] [address] PCP - General 02/08/10 10/12/21 documented as of this encounter
--- OUTSIDE RECORDS SUMMARY | 2023-12-08 20:08 | XMS_ITS | Encounter Summary ---
[place] [address] Care Team Providers Care Book Or Script Editor Name Role Phone Marck Brody DO Primary Care Provider Reason for Visit * Reason Onset Date Comments Medication Refill 08/16/2010 Encounter Details Date Type Department Care Team (Late st Contact Info) Description 08/16/2010 Refill [place] [phone] Natalie Harris[address] RADIATION ONCOLOGY [place], [place] [id number] Social History Tobacco Use Types Packs/Day Years Used Date Smoking Tobacco: Never Assessed Sex and Gender Information Value Date Recorded Sex Assigned at Not on file Gender Identity Not on file Sexual Orientation Not on file documented as of this encounter Plan of Treatment Not on file documented as of this encounter Visit Diagnoses Not on filedocumented in this encounter Care Teams Book Or Script Editor Relationship Specialty Start Date End Date Marck Brody DO [address] [place], [place] [address] PCP - General 02/08/10 10/12/21 documented as of this encounter
--- OUTSIDE RECORDS SUMMARY | 2023-12-08 20:08 | XMS_ITS | Encounter Summary ---
Author Organization [facility] [place] [address] Care Team Providers Care Senior Estimator Name Role Phone Efrain Brody DO Primary Care Provider [phone] Reason for Visit * Reason Comments Tongue Cancer Encounter Details Date Type Department Care Team (Late st Contact Info) Description 01/18/2012 1:00 PM EDT Follow-Up [facility] [address] [place] [address] [id number] Efrain Sherman MD [address] [place] [address] [place] [address] Hypothyroidism; Tongue cancer; Irradiation-induced hypothyroidism; Tinnitus Discharge Disposition: Home Social History Tobacco Use Types Packs/Day Years Used Date Smoking Tobacco: Never Smokeless Tobacco: Never Sex and Gender Information Value Date Recorded Sex Assigned at Not on file Gender Identity Not on file Sexual Orientation Not on file documented as of this encounter Patient Instructions * Patient Instructions* Efrain Sherman MD - 01/18/2012 2:04 PM EDT It was great to see you looking so well. Let Dr. Brody or me know if the stomach gives you any trouble: nausea, vomiting, excessive fullness or gassiness. I'd recommend getting some ear wax softening drops from your pharmacy (non- prescription) and using some weekly, to keep the earwax from building up excessively. Your blood test results from today: Recent Results (from the past 24 hour(s)) COMPREHENSIVE METABOLIC PANEL (NON-FASTING) Component Value Range ??? Glucose Lvl 87 60 - 199 (mg/dL) ??? BUN 7 (*) 8 - 18 (mg/dL) ??? Creatinine 0.84 0.70 - 1.20 (mg/dL) ??? Sodium 141 135 - 145 (mmol/L) ??? Potassium 3.4 (*) 3.5 - 5.0 (mmol/L) ??? Chloride 104 98 - 107 (mmol/L) ??? CO2 27 22 - 31 (mmol/L) ??? Anion Gap 10 5 - 15 (mmol/L) ??? Calcium 9.3 8.5 - 10.5 (mg/dL) ??? Total Protein 7.1 6.4 - 8.3 (gm/dL) ??? Albumin 4.5 3.2 - 5.2 (gm/dL) ??? AST 17 0 - 30 (unit/L) ??? ALT 10 0 - 30 (unit/L) ??? Alk Phos 51 40 - 104 (unit/L) ??? Total Bilirubin 0.5 0.2 - 1.3 (mg/dL) ??? Bili, Direct 0.1 0.0 - 0.3 (mg/dL) ? ? Estimated GFR >60 >=60 TSH Component Value Range ??? TSH 0.73 0.27 - 4.20 (mcIU/mL) CBC (WITH DIFF) Component Value Range ??? WBC 6.2 4.0 - 10.0 (x10(3)/mcL) ??? RBC 4.02 3.93 - 5.22 (x10(6)/mcL) ??? Hemoglobin 13.9 11.2 - 15.7 (gm/dL) ??? Hematocrit 41.2 34.0 - 45.0 (%) ??? MCV 102.5 (*) 79.0 - 94.0 (fL) ??? MCH 34.6 (*) 26.6 - 32.2 (pg) ??? MCHC 33.7 32.0 - 36.5 (gm/dL) ??? Platelets 292 145 - 370 (x10(3)/mcL) ??? RDWSD 46.6 (*) 35.0 - 46.0 (fL) ??? RDWCV 12.6 10.9 - 14.4 (%) ??? MPV 9.4 9.0 - 12.0 (fL) DIFFERENTIAL, AUTOMATED Component Value Range ??? Neutrophils % 77.5 (*) 34.0 - 71.0 (%) ??? Neutr Abs (ANC) 4.82 1.50 - 6.30 (x10(3)/mcL) ??? Lymphocytes % 14.0 (*) 19.0 - 53.0 (%) ??? Lymphocytes Abs 0.9 (*) 1.0 - 3.6 (x10(3)/mcL) ??? Monocytes % 6.9 4.0 - 13.0 (%) ??? Monocyte Abs 0.4 0.2 - 1.0 (x10(3)/mcL) ??? Eosinophils % 0.8 0.0 - 7.0 (%) ??? Eosinophils Abs 0.0 0.0 - 0.5 (x10(3)/mcL) ??? Basophils % 0.5 0.0 - 2.0 (%) ??? Basophils Abs 0.0 0.0 - 0.2 (x10(3)/mcL) ??? Immature Gran % 0.30 0.00 - 0.66 (%) ??? Josselyn Gran Abs 0.02 0.00 - 0.05 (x10(3)/mcL) My office will be in touch if today's xray reports turn up anything worrisome. See you next year. Call if there are problems or concerns. Efrain Sherman MD, FACP Hematology/Oncology Section, [facility] linseed cake trimmer, [employer] [phone] documented in this encounter Progress Notes * Efrain Sherman MD - 01/18/2012 1:12 PM EDT Head and Neck Cancer Medical Oncology Follow-Up Note Patient Active Problem List Diagnoses ??? Irradiation-induced hypothyroidism IQZ=514 in 06/25. Started on synthroid 25mcg po qd. ??? Tongue cancer pT1 pN2b Mx, nonsmoker -L tongue pain, induration, Candidiasis 03/25; [...] severe oral pain. Recovered very well with MALYL. Voice greatly improved with mild dysarthria. PET in 12/24 showed MALLY. Interval History: Scheduled followup. Time from treatment: 5 years Pain problems: none Dysphagia: none Xerostomia: Significant, but OK with Evoxac and extra water. Sticky phlegm bothersome. Noted that using chalkboard made this worse. Taste sensation: normal Dietary restrictions: Horseradish too hot; other spices OK. Otherwise unrestricted. Avoids steak after choking incident several years ago. Neck problems: L>R fibrosis; regular massage to neck. 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 Works out daily. Coping/emotional issues: No issues Dental care/problems: UTD, good hygiene. One cavity filled, o/w all is fine. Medical issues: None; UTD with checkups with Dr. Brody Tinnitus remains, grade 1 No GI symptoms relating to enlarged stomach by exam and xray. She does not recall any major problems with G-tube; no other abdominal surgery; no symptoms to suggest PUD or gastric outlet obstruction.Burps frequently. Outpatient prescriptions marked as taking for the 01/18/12 encounter (Follow-Up) with EFRAIN SHERMAN Medication Sig Dispense Refill ??? cevimeline (EVOXAC) 30 mg capsule Take 1 capsule by mouth 3 times daily. 90 capsule 12 ??? levothyroxine (SYNTHROID) 112 mcg tablet Take 1 tablet by mouth daily. 30 tablet 12 Social History: reviewed, no changes from last visit. Family History: reviewed; no new developments. Review of Systems: Review of systems is negative for other [employer], bone, pulmonary, cardiac, GI, , extremity, neurologic, endocrine, skin, constitutional, emotional, or functional problems. Recent Review Flowsheet Data View Complete Flowsheet Oncology Vitals 06/29/2011 Weight 48 kg Height - BSA (Calculated - sq m) - BMI (Calculated) - Temp - Temp src - Pulse 77 Heart Rate Source Right;NIBP Resp 16 BP 113/65 BP Location Right arm Patient Position Sitting SpO2 98 Pain Level 0 Oncology Vitals 06/29/2011 Height (cm) - Weight (kg) - BSA (m2) - Exam: General appearance: NAD. Speech easily intelligible. Voice is slightly husky. Nutritional status: Very lean, 'wiry' athletic habitus Skin: Clear, excellent in-field cosmesis Oral: S/p partial glossectomy, remnant mobile; no tumor or leukoplakia; chronic radiation effect posteriorly Dentition: In excellent repair, no bone exposure Neck: Grade 2 diffuse L>R fibrosis; no lymphedema Right: no adenopathy Left: no adenopathy Ear: Large but non-impacted cerumen deposits bilaterally Peripheral nodes: nil Chest: clear Heart: RRR, normal tones Abdomen: benign, no HSM; prominent gastric bubble, nontender, bowel sounds normal Extremities: normal, no clubbing or edema Neurologic: Cranial nerves: normal Reflexes: 2 + Laryngoscopy: Recent Results (from the past 72 hour(s)) COMPREHENSIVE METABOLIC PANEL (NON-FASTING) Component Value Range ??? Glucose Lvl 87 60 - 199 (mg/dL) ??? BUN 7 (*) 8 - 18 (mg/dL) ??? Creatinine 0.84 0.70 - 1.20 (mg/dL) ??? Sodium 141 135 - 145 (mmol/L) ??? Potassium 3.4 (*) 3.5 - 5.0 (mmol/L) ??? Chloride 104 98 - 107 (mmol/L) ??? CO2 27 22 - 31 (mmol/L) ??? Anion Gap 10 5 - 15 (mmol/L) ??? Calcium 9.3 8.5 - 10.5 (mg/dL) ??? Total Protein 7.1 6.4 - 8.3 (gm/dL) ??? Albumin 4.5 3.2 - 5.2 (gm/dL) ??? AST 17 0 - 30 (unit/L) ??? ALT 10 0 - 30 (unit/L) ??? Alk Phos 51 40 - 104 (unit/L) ??? Total Bilirubin 0.5 0.2 - 1.3 (mg/dL) ??? Bili, Direct 0.1 0.0 - 0.3 (mg/dL) ? ? Estimated GFR >60 >=60 TSH Component Value Range ??? TSH 0.73 0.27 - 4.20 (mcIU/mL) CBC (WITH DIFF) Component Value Range ??? WBC 6.2 4.0 - 10.0 (x10(3)/mcL) ??? RBC 4.02 3.93 - 5.22 (x10(6)/mcL) ??? Hemoglobin 13.9 11.2 - 15.7 (gm/dL) ??? Hematocrit 41.2 34.0 - 45.0 (%) ??? MCV 102.5 (*) 79.0 - 94.0 (fL) ??? MCH 34.6 (*) 26.6 - 32.2 (pg) ??? MCHC 33.7 32.0 - 36.5 (gm/dL) ??? Platelets 292 145 - 370 (x10(3)/mcL) ??? RDWSD 46.6 (*) 35.0 - 46.0 (fL) ??? RDWCV 12.6 10.9 - 14.4 (%) ??? MPV 9.4 9.0 - 12.0 (fL) DIFFERENTIAL, AUTOMATED Component Value Range ??? Neutrophils % 77.5 (*) 34.0 - 71.0 (%) ??? Neutr Abs (ANC) 4.82 1.50 - 6.30 (x10(3)/mcL) ??? Lymphocytes % 14.0 (*) 19.0 - 53.0 (%) ??? Lymphocytes Abs 0.9 (*) 1.0 - 3.6 (x10(3)/mcL) ??? Monocytes % 6.9 4.0 - 13.0 (%) ??? Monocyte Abs 0.4 0.2 - 1.0 (x10(3)/mcL) ??? Eosinophils % 0.8 0.0 - 7.0 (%) ??? Eosinophils Abs 0.0 0.0 - 0.5 (x10(3)/mcL) ??? Basophils % 0.5 0.0 - 2.0 (%) ??? Basophils Abs 0.0 0.0 - 0.2 (x10(3)/mcL) ??? Immature Gran % 0.30 0.00 - 0.66 (%) ??? Josselyn Gran Abs 0.02 0.00 - 0.05 (x10(3)/mcL) Radiographs: I personally reviewed images from today's CXR:I see no pathology; stomach enlarged. Review of earlier films shows that this has been present since 2007. Today's mammograms reviewed; I see no pathology but will defer to final reading. Impression: Tongue cancer, clinically MALLY at 5 years from completion of adjuvant therapy. Hypothyroidism, adequately replaced on current dose of levothyroxine. Enlarged stomach, etiology uncertain; not significantly symptomatic. Might be r/t Cevimeline, but Iwould expect this cholinergic drug to be pro-motility if anything. Could be partial GOO from G-tubeinjury but would expect more N/V symptoms. Could be r/t unconscious air swallowing from altered oral mechanics. Tinnitus, mild, due to chemoRT. Hearing function grossly intact. Most noticeable when it's quiet. Does not interfere with ADLs. Xerostomia, helped by cholinergic medication. Cerumen buildup. Plan: 1. Continue current levothyroxine dose. 2. Continue Evoxac. 3. Recommended OTC earwax softening/removal kit for regular use. 4. Monitor for gastric symptoms; consider GI evaluation if problems emerge. 5. Monitor hearing function, with audiology evaluation if this becomes more significant. 6. Followup in 1 year with labs, CXR. Efrain Sherman MD, FACP linseed cake trimmer Hematology/Oncology Section [place] [phone] documented in this encounter Plan of Treatment [...] Film and interpretation reviewed by the attending Efrain Sherman MD IMG DX ORDERABLES * TSH (02/03/2013 8:47 AM EST) Thyroid Stimulating Hormone 1.48 0.27 - 4.20 mcIU/mL CERNER MILLENNIUM Blood specimen (specimen) 02/03/2013 8:47 AM EST 02/03/2013 8:54 AM EST Narrative Resulting Agency Comment Spec In Lab Efrain Sherman MD CHEMISTRY ORDERABLES Performing Organization Address City/[facility]/ZIP Co de Phone Number CERTAMIKO BROCKENNIUM * (ABNORMAL) CBC (with Diff) (02/03/2013 8:47 AM EST) Pathologist [facility] White Blood Cell 5.2 4.0 - 10.0 [...] Narrative Resulting Agency Comment Spec In Lab Efrain Sherman MD HEMATOLOGY ORDERABLE S KADE FIELDSIUM * (ABNORMAL) Comprehensive metabolic panel (non-fasting) (02/03/2013 8:47 AM EST) Pathologist [facility] Glucose 86 60 - 199 mg/dL CERNER MILLENNIUM Comment:Diabetes: >=200 mg/d L plus symptoms Blood Urea Nitrogen 5(L) 8 - 18 mg/dL CERNER MILLENNIUM Creatinine 0.75 0.70 - 1.20 mg/dL CERNER MILLENNIUM Comment: Please note that the pediatric reference intervals supplied above were not validated at [facility]. Results from pediatric patients should be interpreted [...] Narrative Resulting Agency Comment Spec In Lab Efrain Sherman MD CHEMISTRY ORDERABLES Performing Organization Address [facility]/ZIP Co de Phone Number CERNER MILLENNIUM * [...] Narrative Resulting Agency Comment Spec In Lab Efrain Sherman MD HEMATOLOGY ORDERABLE S Performing Organization Address [facility] Co de Phone Number CERTAMIKO BROCKENNIUM * TSH (01/18/2012 11:27 AM EDT) Thyroid Stimulating Hormone 0.73 0.27 - 4.20 mcIU/mL CERNER MILLENNIUM Blood specimen (specimen) 01/18/2012 11:27 AM EDT 01/18/2012 12:00 PM EDT Narrative Resulting Agency Comment Spec In Lab Efrain Sherman MD CHEMISTRY ORDERABLES Performing Organization Address City/[facility]/ZIP Co de Phone Number CERTAMIKO BROCKENNIUM * (ABNORMAL) Comprehensive metabolic panel (non-fasting) (01/18/2012 11:27 AM EDT) [facility] Glucose 87 60 - 199 mg/dL CERNER MILLENNIUM Comment:Diabetes: >=200 mg/d L plus symptoms Blood Urea Nitrogen 7(L) 8 - 18 mg/dL CERNER MILLENNIUM Creatinine 0.84 0.70 - 1.20 mg/dL CERNER MILLENNIUM Comment: Please note that the pediatric reference intervals supplied above were not validated at [facility]. 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
--- OUTSIDE RECORDS SUMMARY | 2023-12-08 20:08 | XMS_ITS | Encounter Summary ---
Author Organization [place] [address] Care Team Providers Care Circulation Representative Name Role Phone Marck Brody DO Primary Care Provider [phone] Reason for Visit * Reason Onset Date Comments Medication Refill 08/25/2011 would like to have her evoxac reordered. Encounter Details Date Type Department Care Team (Late st Contact Info) Description 08/25/2011 [place] [phone] Honey Hickman LPN Social History Tobacco Use Types Packs/Day Years Used Date Smoking Tobacco: Never Smokeless Tobacco: Never Sex and Gender Information Value Date Recorded Sex Assigned at Not on file Gender Identity Not on file Sexual Orientation Not on file documented as of this encounter Miscellaneous Notes * Telephone Encounter - Honey Hickman LPN - 08/25/2011 8:17 AM EDT Re-ordered PT's Evoxac per Jesus REA. documented in this encounter Plan of Treatment Not on file documented as of this encounter Visit Diagnoses Not on filedocumented in this encounter Care Teams Circulation Representative Relationship Specialty Start Date End Date Marck Brody DO [address] [place] [address] PCP - General 02/08/10 10/12/21 documented as of this encounter
--- OUTSIDE RECORDS SUMMARY | 2023-12-08 20:08 | XMS_ITS | Encounter Summary ---
Author Organization [facility] Address [facility] [place] [address] Care Team Providers Care Asphalt Coater Name Role Phone Marck Brody DO Primary Care Provider Reason for Visit * Reason Comments Follow-up Encounter Details Date Type Department Care Team (Late st Contact Info) Description 12/22/2010 11:40 AM EDT Follow-[place] [phone] Roberth Lee MD [facility] [place] [address] Tongue cancer Discharge Disposition: Home Social History Tobacco Use Types Packs/Day Years Used Date Smoking Tobacco: Never Smokeless Tobacco: Never Sex and Gender Information Value Date Recorded Sex Assigned at Not on file Gender Identity Not on file Sexual Orientation Not on file documented as of this encounter Last Filed Vital Signs Vital Sign [place] Time Taken Comments Blood Pressure 117/71 12/22/2010 12:06 PM EDT Pulse 66 12/22/2010 12:06 PM EDT Temperature - - Respiratory Rate - - Oxygen Saturation - - Inhaled Oxygen Concentration - - Weight 48.2 kg (106 lb 4.8 oz) 12/22/2010 12:06 PM EDT Height 157.5 cm (5' 2) 12/22/2010 12:06 PM EDT Body Mass Index 19.44 12/22/2010 12:06 PM EDT documented in this encounter Progress Notes * Roberth Lee MD - 12/22/2010 6:58 PM EDT Ms. 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 She presents today for routine followup. She had a chest x-ray earlier today, which I have reviewed, which demonstrates no evidence of pulmonary metastases. Her labs from today were also reviewed, which demonstrate a normal thyroid hormone level and normal chemistry and CBC, and normal liver enzymes. Theresa reports she is doing quite well. She is back to exercising. She has been gaining weight. 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 She continues to take Evoxac for her dry mouth symptoms. She does report that she is tolerating a normal diet without restrictions. Her articulation is at baseline with some dysarthria, but this has not gotten worse. On examination, she is well developed, well nourished, and in no acute distress. Head and face examination is normocephalic and atraumatic. Oral cavity and oropharyngeal examination demonstrates post glossectomy changes with no evidence of recurrence. Her dentition is in good repair. Oropharyngeal examination is unremarkable. The floor of mouth and tongue and tongue base are all soft to palpation. Palpation of her neck demonstrates dense fibrosis of the left neck, but no palpable adenopathy or other masses. Musculoskeletal examination demonstrates no trismus. She has good neck range of motion. Neurologically she is alert and oriented times three. Her cranial nerve examination is intact. Skin survey of the head and neck demonstrates no concerning skin lesions. Flexible fiberoptic nasopharyngoscopy and laryngoscopy are performed with a normal exam of the nasal cavity, nasopharynx, oropharynx, hypopharynx, and larynx other than postradiation changes. Assessment and Recommendations: No evidence of recurrent disease after four years. I will see Theresa back in one year for routine followup. documented in this encounter Plan of Treatment Not on file documented as of this encounter Visit Diagnoses Diagnosis Tongue cancer Malignant neoplasm of tongue, unspecified site documented in this encounter Care Teams Asphalt Coater Relationship Specialty Start Date End Date Marck Brody DO [address] [facility] [facility] [address] [facility] [address] [place] [address] PCP - General 02/08/10 10/12/21 documented as of this encounter
--- OUTSIDE RECORDS SUMMARY | 2023-12-08 20:08 | XMS_ITS | Encounter Summary ---
[place] [address] Care Team Providers Care Radio Interference Expert Name Role Phone Marck Brody DO Primary Care Provider [phone] Reason for Visit * Reason Onset Date Comments Medical Care Coordination 03/27/2013 Encounter Details Date Type Department Care Team (Late st Contact Info) Description 03/27/2013 Telephone Hematology [place] [phone] Neo Sherman RN Medical Care Coordination Social History Tobacco Use Types Packs/Day Years Used Date Smoking Tobacco: Never Smokeless Tobacco: Never Sex and Gender Information Value Date Recorded Sex Assigned at Not on file Gender Identity Not on file Sexual Orientation Not on file documented as of this encounter Miscellaneous Notes * Telephone Encounter - Neo Sherman RN - 04/01/2013 11:37 AM EST 04/01/13 11:30 am Message left on home phone with results of TSH from 03/28/13, per patient's request. Dr. Sherman recommends she follows up with her PCP or local oncologist, and I told patient I would return call to hertomorrow, or she could call Dr. Sherman's office if she has questions or concerns. * Telephone Encounter - Neo Sherman RN - 04/01/2013 10:56 AM EST Addendum: 04/01/13. Received lab results via fax from [facility] drawn on 03/28/13. TSH 3.6.1 * Telephone Encounter - Neo Sherman RN - 03/27/2013 5:49 PM EST Incoming call from patient: Theresa called to say that she feels differently and believes she has hypothyroidism? She is wondering if you could order her to have another lab test done locally at [facility]? She can be reached either ather home number [phone] or her cell number [phone]. Returned call to patient: Theresa said she has not been feeling quite right for the past two weeks. She's been feeling tired,becomes constipated easily, has put on weight (about 4 lbs). She said she understands this might bedue to the holidays, cold weather. She has not been feeling chilled or overheated, sleep is undisturbed, she said she otherwise feels fine. Last TSH drawn at [facility] was 2.83 on 03/04/13. She is on 88 mcg synthroid, and has been on that dose since 01/21/13. She would like to have repeat TSH drawn at [facility]. Discussed with Dr Sherman. Orders faxed, return call made to patient. documented in this encounter Plan of Treatment Scheduled Orders Name Type Priority Associated Diagnoses Orde r Schedule TSH Lab Routine Acquired hypothyroidism Expected: 03/28/2013 (Approximate), Expires: 03/27/2014 documented as of this encounter Visit Diagnoses Diagnosis Acquired hypothyroidism- Primary Unspecified hypothyroidism documented in this encounter Care Teams Radio Interference Expert Relationship Specialty Start Date End Date Marck Brody DO [address] [place] [address] PCP - General 02/08/10 10/12/21 documented as of this encounter
--- OUTSIDE RECORDS SUMMARY | 2023-12-08 20:08 | XMS_ITS | Encounter Summary ---
[place] [address] Care Team Providers Care Test Tech Name Role Phone Marck Brody DO Primary Care Provider Encounter Details Date Type Department Care Team (Late st Contact Info) Description 01/21/2013 Telephone [place] [phone] Natalie Harris APRN [address] [place] [address] DR RADIATION ONCOLOGY [place], [place] [id number] Social History Tobacco Use Types Packs/Day Years Used Date Smoking Tobacco: Never Smokeless Tobacco: Never Sex and Gender Information Value Date Recorded Sex Assigned at Not on file Gender Identity Not on file Sexual Orientation Not on file documented as of this encounter Miscellaneous Notes * Telephone Encounter - Natalie Harris APRN - 01/21/2013 4:08 PM EST Call from Theresa indicating that she did decrease her TSH from 112 mcg a day to 100 mcg a day. She is feeling very anxious still. We will decrease dose to 88 mcg a day and recheck TSH 02/03 when she is in clinic documented in this encounter Plan of Treatment Not on file documented as of this encounter Visit Diagnoses Not on filedocumented in this encounter Care Teams Test Tech Relationship Specialty Start Date End Date Marck Brody DO [address] [place], [place] [address]Y [facility] [address] [place] [address] PCP - General 02/08/10 10/12/21 documented as of this encounter
--- OUTSIDE RECORDS SUMMARY | 2023-12-08 20:08 | XMS_ITS | Encounter Summary ---
Author Organization [facility] [place] [address] Care Team Providers Care Qa Analyst Name Role Phone Marck Brody DO Primary Care Provider [phone] Reason for Visit * Reason Comments Head And Neck Cancer Encounter Details Date Type Department Care Team (Late st Contact Info) Description 02/03/2013 9:30 AM EST Follow-Up [place]ematology [place] [address] Marck Sherman MD [address] [place] [address] [place] [address] Hypothyroidism (acquired); Tinnitus; History of tongue cancer; Tongue cancer Discharge Disposition: Home Social History Tobacco Use Types Packs/Day Years Used Date Smoking Tobacco: Never Smokeless Tobacco: Never Sex and Gender Information Value Date Recorded Sex Assigned at Not on file Gender Identity Not on file Sexual Orientation Not on file documented as of this encounter Last Filed Vital Signs Vital Sign Reading Time Taken Comments Blood Pressure 114/64 02/03/2013 9:31 AM EST Pulse 81 02/03/2013 9:31 AM EST Temperature 36.6 ??C (97.9 ??F) 02/03/2013 9:31 AM ES T Respiratory Rate 18 02/03/2013 9:31 AM EST Oxygen Saturation 99% 02/03/2013 9:31 AM EST Inhaled Oxygen Concentration - - Weight 48.9 kg (107 lb 12.9 oz) 02/03/2013 9:31 AM EST Height 159 cm (5' 2.6) 02/03/2013 9:31 AM EST Body Mass Index 19.34 02/03/2013 9:31 AM EST documented in this encounter Patient Instructions * Patient Instructions* Marck Sherman MD - 02/03/2013 9:47 AM EST Today's lab values: Recent Results (from the past 24 hour(s)) FOLATE, SERUM Component Value Range Folate Lvl 15.0 4.6 - 34.8 ng/mL VITAMIN B12 Component Value Range Vitamin B-12 444 207 - 974 pg/mL COMPREHENSIVE METABOLIC PANEL (NON-FASTING) Component Value Range Glucose Lvl 86 60 - 199 mg/dL BUN 5 (*) 8 - 18 mg/dL Creatinine 0.75 0.70 - 1.20 mg/dL Sodium 140 135 - 145 mmol/L Potassium 3.9 3.5 - 5.0 mmol/L Chloride 104 98 - 107 mmol/L CO2 25 22 - 31 mmol/L Anion Gap 11 5 - 15 mmol/L Calcium 9.6 8.5 - 10.5 mg/dL Total Protein 7.0 6.4 - 8.3 gm/dL Albumin 4.7 3.2 - 5.2 gm/dL AST 18 0 - 30 unit/L ALT 14 0 - 30 unit/L Alk Phos 48 40 - 104 unit/L Total Bilirubin 0.6 0.2 - 1.3 mg/dL Bili, Direct 0.1 0.0 - 0.3 mg/dL Estimated GFR >60 >=60 CBC (WITH DIFF) Component Value Range WBC 5.2 4.0 - 10.0 x10(3)/mcL RBC 4.00 3.93 - 5.22 x10(6)/mcL Hemoglobin 13.7 11.2 - 15.7 gm/dL Hematocrit 40.4 34.0 - 45.0 % MCV 101.0 (*) 79.0 - 94.0 fL MCH 34.3 (*) 26.6 - 32.2 pg MCHC 33.9 32.0 - 36.5 gm/dL Platelets 307 145 - 370 x10(3)/mcL RDWSD 46.7 (*) 35.0 - 46.0 fL RDWCV 12.6 10.9 - 14.4 % MPV 9.3 9.0 - 12.0 fL TSH Component Value Range TSH 1.48 0.27 - 4.20 mcIU/mL DIFFERENTIAL, AUTOMATED Component Value Range Neutrophils % 67.2 34.0 - 71.0 % Neutr Abs (ANC) 3.51 1.50 - 6.30 x10(3)/mcL Lymphocytes % 22.6 19.0 - 53.0 % Lymphocytes Abs 1.2 1.0 - 3.6 x10(3)/mcL Monocytes % 6.9 4.0 - 13.0 % Monocyte Abs 0.4 0.2 - 1.0 x10(3)/mcL Eosinophils % 2.5 0.0 - 7.0 % Eosinophils Abs 0.1 0.0 - 0.5 x10(3)/mcL Basophils % 0.6 0.0 - 2.0 % Basophils Abs 0.0 0.0 - 0.2 x10(3)/mcL Immature Gran % 0.20 0.00 - 0.66 % Josselyn Gran Abs 0.01 0.00 - 0.05 x10(3)/mcL Your chest Xray and mammograms look fine to me, and we'll get in touch if the Radiologists' report tell us any differently. Let's stick with the 88 mcg levothyroxine dose for now. We'll arrange repeat TSH testing at the [facility] in about a month. Also, we discussed adding about 2000 mg of calcium (eg Tums) for bone strengthening. Marck Sherman MD, FACP Hematology/Oncology Section, [facility] annealer, [facility] [employer] [phone] documented in this encounter Progress Notes * Marck Sherman MD - 02/03/2013 9:39 AM EST Head and Neck Cancer Medical Oncology Patient Active Problem List Diagnosis ??? 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 History of tongue cancer ??? Irradiation-induced hypothyroidism [id number]=642 in 06/25. Started on synthroid 25mcg po [...] severe oral pain; excellent functional recovery Chief Complaint: follow up for head and neck cancer Interval History: SYMPTOM STATUS ONGOING RX Therapy time point: 6 years from definitive chemo/rt Tumor symptoms, treatment side effects, significant events and problems: None, save chronic xerostomia and trismus. All are stable. No dietary restrictions save for sharp/hard chips, which irritate. Went to ER for throat pain and bleeding caused by a stuck Doritos fragment. No problems identified in ER, discharged without specific Rx. 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 Exercises daily. Psychosocial: Doing well Bowel function: Normal Intercurrent medical events: Mammogram today for routine follow up. Annual flu shot in . Regular menses. Had to have R mandibular tooth pulled after eating a hard spring roll, leading to loosening, further loosening thereafter. Using therabite, fluoride, regular dental checkups. [place] palpitations and anxiety on levothyroxine 112 mcg; reduced to 100 and again to 88 last month. She has noted increased dysphagia and throat tightening when levo dose has been insufficient. Outpatient Prescriptions Marked as Taking for the 02/03/13 encounter (Follow-Up) with Xuan Sherman MD Medication Sig Dispense Refill ??? levothyroxine (SYNTHROID) 88 mcg tablet Take 1 tablet by mouth daily. 30 tablet 12 ??? cevimeline (EVOXAC) 30 mg capsule Take 1 capsule by mouth 3 times daily. 90 capsule 12 Social History: reviewed, no changes. Family History: reviewed, no changes. Review of Systems: Review of systems is negative for other [employer], bone, pulmonary, cardiac, GI, , extremity, neurologic, endocrine, skin, constitutional, emotional, or functional problems. Filed Vitals: 02/03/13 0931 BP: 114/64 Pulse: 81 Temp: 36.6 ??C (97.9 ??F) TempSrc: Oral Resp: 18 Height: 159 cm (5' 2.6) Weight: 48.9 kg (107 lb 12.9 oz) SpO2: 99% Body surface area is 1.47 meters squared. Wt Readings from Last 3 Encounters: 02/03/13 48.9 kg (107 lb 12.9 oz) 07/04/12 49.896 kg (110 lb) 01/18/12 47.628 kg (105 lb) Exam: General appearance: NAD Nutritional status: Stable, although very lean: Body mass index is 19.34 kg/(m^2). Skin: clear Oral: 20 mm interincisor opening, mucosa clear. Tongue remnant firm, with scarring L border; no suspicious masses seen nor felt. Extracted R pebbles premolar site healed, no bone exposure. Neck: Diffuse grade 1 fibrosis Right: No palpable adenopathy Left: No palpable adenopathy Ears: Wax bilaterally. Office visit with Toño Cervantes later this morning. Nose: clear Peripheral nodes: Nil Chest: Clear Heart: RRR, normal tones Abdomen: Benign, no HSM Extremities: Normal, no clubbing or edema Neurologic: Cranial nerves: Normal Reflexes: 2 + at patellae Laryngoscopy: Recent Results (from the past 72 hour(s)) FOLATE, SERUM Component Value Range Folate Lvl 15.0 4.6 - 34.8 ng/mL VITAMIN B12 Component Value Range Vitamin B-12 444 207 - 974 pg/mL COMPREHENSIVE METABOLIC PANEL (NON-FASTING) Component Value Range Glucose Lvl 86 60 - 199 mg/dL BUN 5 (*) 8 - 18 mg/dL Creatinine 0.75 0.70 - 1.20 mg/dL Sodium 140 135 - 145 mmol/L Potassium 3.9 3.5 - 5.0 mmol/L Chloride 104 98 - 107 mmol/L CO2 25 22 - 31 mmol/L Anion Gap 11 5 - 15 mmol/L Calcium 9.6 8.5 - 10.5 mg/dL Total Protein 7.0 6.4 - 8.3 gm/dL Albumin 4.7 3.2 - 5.2 gm/dL AST 18 0 - 30 unit/L ALT 14 0 - 30 unit/L Alk Phos 48 40 - 104 unit/L Total Bilirubin 0.6 0.2 - 1.3 mg/dL Bili, Direct 0.1 0.0 - 0.3 mg/dL Estimated GFR >60 >=60 CBC (WITH DIFF) Component Value Range WBC 5.2 4.0 - 10.0 x10(3)/mcL RBC 4.00 3.93 - 5.22 x10(6)/mcL Hemoglobin 13.7 11.2 - 15.7 gm/dL Hematocrit 40.4 34.0 - 45.0 % MCV 101.0 (*) 79.0 - 94.0 fL MCH 34.3 (*) 26.6 - 32.2 pg MCHC 33.9 32.0 - 36.5 gm/dL Platelets 307 145 - 370 x10(3)/mcL RDWSD 46.7 (*) 35.0 - 46.0 fL RDWCV 12.6 10.9 - 14.4 % MPV 9.3 9.0 - 12.0 fL TSH Component Value Range TSH 1.48 0.27 - 4.20 mcIU/mL DIFFERENTIAL, AUTOMATED Component Value Range Neutrophils % 67.2 34.0 - 71.0 % Neutr Abs (ANC) 3.51 1.50 - 6.30 x10(3)/mcL Lymphocytes % 22.6 19.0 - 53.0 % Lymphocytes Abs 1.2 1.0 - 3.6 x10(3)/mcL Monocytes % 6.9 4.0 - 13.0 % Monocyte Abs 0.4 0.2 - 1.0 x10(3)/mcL Eosinophils % 2.5 0.0 - 7.0 % Eosinophils Abs 0.1 0.0 - 0.5 x10(3)/mcL Basophils % 0.6 0.0 - 2.0 % Basophils Abs 0.0 0.0 - 0.2 x10(3)/mcL Immature Gran % 0.20 0.00 - 0.66 % Josselyn Gran Abs 0.01 0.00 - 0.05 x10(3)/mcL Radiology: I personally reviewed images from today's CXR: I see no pathology. Very large gastric bubble, as before. Impression and Plans: 1. Hypothyroidism (acquired): appears adequately replaced on 88 mcg. Plan: ?? Continue this dose, recheck at [facility] in ~1 month to verify. 2. Tinnitus: stable, mild 3. Tongue cancer: clinically MALLY at 8 years, and likely cured. As nonsmoker, risk of second primarycancer is low, but surveillance still warranted. Nutrition still a bit of a challenge, and I worry a bit about long-term risk of osteopenia given her leanness; she is getting good exercise including weight lifting. So far no problems from tooth extraction. The gap should be filled in if possible to prevent loosening of adjacent teeth. There is limited data on safety and efficacy of dental implants post-RT, but the few studies are encouraging. Plan: ?? ENT F/U with Mr. Cervantes later today, asking him for cerumen disimpaction as well. ?? We'll call if today's Xray reports show anything worrisome. ?? Anticipate F/U here in 1 year, or PRN problems. ?? Continue therabite. ?? She's looking for a animal shelter clerk, and will consider implant options. ?? Recommended 2 gm oral calcium supplementation (eg Tums) along with exercise program. She knows not to take this close to her levothyroxine. Marck Sherman MD, FACP annealer Hematology/[place] [address] I assisted in today's visit. The physical examination and all medical decisions were performed by Dr. Lane Sherman RN, BSN Hematology/Oncology Section [facility] documented in this encounter Plan of Treatment [...] Impression Marck Sherman MD IMG DX ORDERABLES * (ABNORMAL) TSH (01/19/2014 12:00 PM EST) [...] intervals supplied above were not validated at [facility]. Results from pediatric patients should be interpreted [...] the following links into your internet browser. [email or web address] Blood specimen (specimen) 01/19/2014 12:00 PM EST 01/19/2014 12:11 PM EST Narrative Resulting Agency Comment Spec In Lab Marck Sherman MD CHEMISTRY ORDERABLES [facility] documented in this encounter Visit Diagnoses Diagnosis Hypothyroidism (acquired) Unspecified hypothyroidism Tinnitus Unspecified tinnitus History of tongue cancer Personal history of malignant neoplasm of tongue Tongue cancer Malignant neoplasm of tongue, unspecified site History of tongue cancer Personal history of malignant neoplasm of tongue Tongue cancer Malignant neoplasm of tongue, unspecified site documented in this encounter Care Teams Qa Analyst Relationship Specialty Start Date End Date Marck Brody DO [address] [place] [address] PCP - General 02/08/10 10/12/21 documented as of this encounter
--- OUTSIDE RECORDS SUMMARY | 2023-12-08 20:08 | XMS_ITS | Encounter Summary ---
Author Organization [facility] [place] [address] Care Team Providers Care Air Reduction Equipment Operator Name Role Phone Marck Brody DO Primary Care Provider [phone] Reason for Visit * Reason Comments Follow-up Encounter Details Date Type Department Care Team (Late st Contact Info) Description 01/18/2012 2:00 PM EDT Follow-[place] [id number] CLINIC, DR CARLEY Little, Roberth Reina MD [facility] [place] [address] Tongue cancer; History of tongue cancer; Voice disorder Discharge Disposition: Home Social History Tobacco Use Types Packs/Day Years Used Date Smoking Tobacco: Never Smokeless Tobacco: Never Sex and Gender Information Value Date Recorded Sex Assigned at Not on file Gender Identity Not on file Sexual Orientation Not on file documented as of this encounter Last Filed Vital Signs Vital Sign Reading Time Taken Comments Blood Pressure 117/82 01/18/2012 1:46 PM EDT Pulse 83 01/18/2012 1:46 PM EDT Temperature - - Respiratory Rate - - Oxygen Saturation - - Inhaled Oxygen Concentration - - Weight 47.6 kg (105 lb) 01/18/2012 1:46 PM EDT Height 160 cm (5' 3) 01/18/2012 1:46 PM EDT Body Mass Index 18.6 01/18/2012 1:46 PM EDT documented in this encounter Progress Notes * Roberth Little MD - 01/18/2012 3:32 PM EDT [facility] Follow up note Theresa Hollis is a 41 y.o. female seen in follow-up for head and neck review. Primary site: Left lateral tongue Stage: [id number] Surgery(ies): 10/31/06 - Hemiglossectomy, left neck dissection 1-5, skin graft, allograft Radiation: TREATMENT STARTED: 11/28/06 TREATMENT COMPLETED: 01/14/07 TREATMENT: The total maximum dose was 6600 cGy in 33 fractions. Volume reductions were instituted at 5400 cGy in 30 fractions & 6000 cGy in 30 fractions. Chemotherapy: Concurrent cisplatin New issues since last visit: Overall doing well. Took a sabatical from work but is now back to work. She is eating well and swallowing well. She does feel that her voice is getting more weak. PROBLEM LIST: Patient Active Problem List Diagnoses Code ??? Irradiation-induced hypothyroidism 244.1H ??? Tinnitus 388.30E ??? History of tongue cancer V10.01D PAST MEDICAL HISTORY: Past Medical History Diagnosis Date ??? Cancer of head, face, and neck ??? Hypothyroidism SOCIAL HISTORY: History Substance Use Topics ??? Smoking status: Never Smoker ??? Smokeless tobacco: Never Used ??? Alcohol Use: MEDICATIONS: Current outpatient prescriptions ordered prior to encounter Medication Sig Dispense Refill ??? cevimeline (EVOXAC) 30 mg capsule Take 1 capsule by mouth 3 times daily. 90 capsule 12 ??? levothyroxine (SYNTHROID) 112 mcg tablet Take 1 tablet by mouth daily. 30 tablet 12 ALLERGIES: No Known Allergies ROS: Pertinent positive findings discussed above. No other findings on review of constitutional visual, cardiovascular, respiratory, gastrointestinal, genitourinary, musculoskeletal, dermatologic, neurological, psychiatric, endocrine, hematologic or immunologic systems. PHYSICAL EXAMINATION: General: Well developed, no distress Head/face: Normocephalic, atraumatic Oral cavity: Post glossectomy, no recurrence. Oropharynx: Normal soft palate, tonsils, lateral pharyngeal wall, posterior pharynx. Neck: No adenopathy, no masses, normal thyroid, normal salivary gland exam. Trachea midline. Resp: Normal speech, no stridor, normal respirations. Skin: Normal [...] Nasal Cavity: Normal Nasopharynx: Normal Oropharynx: Normal tongue base Larynx: Normal TVC mobility, slight mid glottic gap Hypopharynx: Some scarring along the AE fold and the left pyriform sinus region ASSESSMENT/RECOMMENDATIONS: MALLY No second primary Normal TVC moblity with very slight mid glottic gap I have recommended that she work with Byron Novak for speech rehab Consider gelfoam injection however, unclear to me if this will be helpful RTC 1 year I appreciate the opportunity to be involved in Ms. Hollis's care. Please do not hesitate to contact me at [email or web address], (office), (page electronic operator) or [phone] (mobile) if you have any questions. ROBERTH LITTLE MD 01/18/2012 documented in this encounter Plan of Treatment Not on file documented as of this encounter Visit Diagnoses Diagnosis Tongue cancer Malignant neoplasm of tongue, unspecified site History of tongue cancer Personal history of malignant neoplasm of tongue Voice disorder Voice and resonance disorder, unspecified documented in this encounter Care Teams Air Reduction Equipment Operator Relationship Specialty Start Date End Date Marck Brody DO [address] [place] [address] PCP - General 02/08/10 10/12/21 documented as of this encounter
--- OUTSIDE RECORDS SUMMARY | 2023-12-08 20:09 | XMS_ITS | Encounter Summary ---
Author Organization [facility] Address [address] [place] [address] Care Team Providers Care Fiber Worker Name Role Phone Unavailable Primary Care Provider Unavailabl e Encounter Details Date Type Department Care Team (Late st Contact Info) Description 07/02/2006 Results Only [facility] [address] [place] [address] Efraín Rausch MD [address] [place] [address] Social History Tobacco Use Types Packs/Day Years Used Date Smoking Tobacco: Never Assessed Sex and Gender Information Value Date Recorded Sex Assigned at Not on file Gender Identity Not on file Sexual Orientation Not on file documented as of this encounter Plan of Treatment Not on file documented as of this encounter Procedures Procedure Name Priority Date/Time Associated Diagnosis Comments SURGICAL PATHOLOGY Routine 07/02/2006 0:00 EDT documented in this encounter Results * SURGICAL PATHOLOGY (07/02/2006 0:00 EDT) Pathology Report: SURGICAL PATHOLOGY REPORT Reports generated via electronic interface contain original data; however they are lacking the format of the original report. Caution should be taken when reading/interpreting unformatted reports. Name: ? THERESA HENLEY ? Accession #: ? [id number] ? : ? 1970 (Age: 36) ??F ? Collect Date: ? 07/02/2006 ? Location: ? [facility] ? Receive Date: ? 07/03/2006 ? Provider: EFRAÍN RAUSCH MD Copy to: EFRAIN ORTIZ DO ? Final Pathologic Diagnosis: ? Tongue, left lateral, incisional biopsy: 1. 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 ??See comment. 2. ? Features consistent with oral hairy leukoplakia. 3. ? PAS-amylase stain negative for fungal organisms. Comment: ? Histologic sections show hyperplastic squamous mucosa with hyperkeratosis and focal parakeratosis. ??There is a suggestion of koilocytic-type changes with prominent keratohyaline granules and sufficient cytologic atypia for a diagnosis of mild to moderate dysplasia. 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 ??No invasive malignancy is identified. ??Dr. Dee Aggarwal and Dr. Primitivo Ivan have reviewed this case in consultation and agree with the above diagnoses. ??This case was reviewed at intradepartmental consultation conference. ??(Dr. Dyer)/[facility] Document reviewed and electronically signed by: Flower Dyer MD Report ??Date: 07/10/2006 22:16 By the signature above, the attending physician certifies that he/she has personally conducted a gross and/or microscopic examination of the described specimens and rendered or confirmed the above diagnosis. Specimen(s) Received: ? Incisional biopsy Clinical History: ? Hairy tongue vs dysplasia on previous biopsy ??repeat L lat tongue biopsy Gross Description: ? Received in formalin labelled [place] and L lat tongue bx are two white to brown pieces of soft tissue which measure 0.3 x 0.2 x 0.2 cm and 0.7 x 0.2 x 0.2 cm. The specimen is submitted intact in one cassette. (Dr. Bell ORTIZ)/mirtha End of Report [facility] 07/02/2006 07/03/2006 1:1 0 EDT Efraín Rausch MD PATHOLOGY ORDERABLES [facility] [address] [place] [address] documented in this encounter Visit Diagnoses Not on filedocumented in this encounter
--- OUTSIDE RECORDS SUMMARY | 2023-12-08 20:09 | XMS_ITS | Encounter Summary ---
Author Organization [facility] [place] [address] Care Team Providers Care Tank Builder Supervisor Name Role Phone Unavailable Primary Care Provider Unavailabl e Encounter Details Date Type Department Care Team (Late st Contact Info) Description 01/27/2010 8:30 AM EST Follow-[place] [address] Roberth Lee MD [facility] [place] [address] Social History Tobacco Use Types Packs/Day Years [...]
--- OUTSIDE RECORDS SUMMARY | 2023-12-08 20:09 | XMS_ITS | Encounter Summary ---
Author Organization [facility] Address [address] [place] [address] Care Team Providers Care Simplex Operator Name Role Phone Unavailable Primary Care Provider Unavailabl e Encounter Details Date Type Department Care Team (Late st Contact Info) Description 12/16/2008 Orders Only [facility] - [facility] ([facility] [address] [place], [place] [id number] Marck Brody, DO [address], [place] [id number] Social History Tobacco Use Types Packs/Day Years Used Date Smoking Tobacco: Never Assessed Sex and Gender Information Value Date Recorded Sex Assigned at Not on file Gender Identity Not on file Sexual Orientation Not on file documented as of this encounter Plan of Treatment Not on file documented as of this encounter Procedures Procedure Name Priority Date/Time Associated Diagnosis Comments HPV DETECTION, HIGH RISK TYPES Routine 12/16/2008 15:30 EDT CYTOPATHOLOGY Routine 12/16/2008 0:00 EDT documented in this encounter Results * HUMAN PAPILLOMA VIRUS DNA TEST (12/16/2008 15:30 EDT) Specimen Description Cervix, ThinPrep vial [facility] Result Negative for HPV types 16, 18, 31, 33, 35, 39, 45, 51, 52, 56, 58, 59, and 68. [facility] Report Status Final 12/30/2008 [facility] 12/16/2008 15:3 0 EDT 12/24/2008 10:47 EDT Marck Brody MICROBIOLOGY - GEN ERAL ORDERABLES [facility] [address] [place] [address] * CYTOPATHOLOGY (12/16/2008 0:00 EDT) Pathology Report: CYTOPATHOLOGY REPORT ? Reports generated via electronic interface contain original data; ? however they are lacking the format of the original report. ? Caution should be taken when reading/interpreti ng unformatted reports. ? Name: ? THERESA HENLEY ? Accession #: ? [id number] ? : ? 1970 (Age: 38) ??F ?Collect Date: ? 12/16/2008 ? Location: ? [facility] ? Receive Date: ? 12/17/2008 ? Provider: ?MARCK F ANGEL DO ? Copy to: ? Specimen/Source: ?Pap Test, Cervix/Endocervix, ThinPrep Imaging System ? with manual evaluation ? Last Menstrual Period: ? 9/12/09 ? Other: ? HPVDX - HPV testing requested regardless of diagnosis on current ThinPrep Pap ?? test. ? SPECIMEN ADEQUACY ? Satisfactory for Evaluation ? - transformation zone component present ? GENERAL CATEGORIZATION ? Negative for Intraepithelial Lesion or Malignancy ? Document reviewed and electronically signed by: ? Govind Mcconnell, CT(ASCP) ? Report Date: ??12/23/2008 10:07 ? End of Report ? [facility] 12/16/2008 12/17/2008 Marck Brody DO PATHOLOGY ORDERABL ES [facility] [address] [place] [address] documented in this encounter Visit Diagnoses Not on filedocumented in this encounter
--- OUTSIDE RECORDS SUMMARY | 2023-12-08 20:09 | XMS_ITS | Encounter Summary ---
Author Organization [facility] Address [address] [place] [address] Care Team Providers Care Crm Technical Lead Name Role Phone Unavailable Primary Care Provider Unavailabl e Encounter Details Date Type Department Care Team (Late st Contact Info) Description 07/18/2011 Results Only [facility] Laboratory Services - [facility] ([facility]) [address], [place] [id number] Marck Brody F, DO [address] [place], [place] [id number] Social History Tobacco Use Types Packs/Day Years Used Date Smoking Tobacco: Never Assessed Sex and Gender Information Value Date Recorded Sex Assigned at Not on file Gender Identity Not on file Sexual Orientation Not on file documented as of this encounter Plan of Treatment Not on file documented as of this encounter Procedures Procedure Name Priority Date/Time Associated Diagnosis Comments PAP TEST- RESULT ONLY Routine 07/18/2011 0:00 EDT documented in this encounter Results * PAP TEST- RESULT ONLY (07/18/2011 0:00 EDT) Pathology Report: CYTOPATHOLOGY REPORT Reports generated via electronic interface contain original data; however they are lacking the format of the original report. Caution should be taken when reading/interpreti ng unformatted reports. Name: ? THERESA HENLEY ? Accession #: ? [id number] ? : ? 1970 (Age: 41) ??F ? N #: ? [id number] ?Collect Date: ? 07/18/2011 ? Location: ? [facility] ? Receive Date: ? 07/19/2011 ? Provider: MARCK BRODY DO Copy to: ? Final Report SPECIMEN ADEQUACY ? Satisfactory for Evaluation - transformation zone component absent GENERAL CATEGORIZATION ? Negative for Intraepithelial Lesion or Malignancy ?? Last Menstural Period: 07/05/11 Specimen/Source: ??Pap Test, Cervix/Endocervix, ThinPrep Imaging System with manual evaluation Document reviewed and electronically signed by: ? Jorge Alberto Myles, SHILPA(ASCP) ? Report ??Date: 07/20/2011 12:03 HPV with Pap Test ? Date Ordered: ? 07/20/2011 ? Status: ?? Signed Out ?Date Complete: ? 07/24/2011 ? By: ??System Interface ? Date Reported: ? 07/24/2011 ? Interpretation RESULT: Negative for HPV. No E6 or E7 mRNA is detected from HPV types 16,18,31,33,35, 39,45,51,52,56,58, 59,66, and 68 by prenatal genetic counselor mediated amplification. Comments Document reviewed and electronically signed by: ? System Interface ? Report date: 07/24/2011 By the signature above, the attending physician certifies that he/she has personally conducted a gross and/or microscopic examination of the described specimens and rendered or confirmed the above diagnosis. End of Report [facility] 07/18/2011 07/19/2011 Marck Brody DO PATHOLOGY ORDERABL ES [facility] [address] [place] [address] documented in this encounter Visit Diagnoses Not on filedocumented in this encounter
--- OUTSIDE RECORDS SUMMARY | 2023-12-08 20:09 | XMS_ITS | Encounter Summary ---
Author Organization [facility] Address [facility] [place] [address] Care Team Providers Care Production Operations Inspector Name Role Phone Dev, Tita Butt APRN Primary Care Provider [phone] Encounter Details Date Type Department Care Team (Late st Contact Info) Description 10/05/2006 Orders [place] [address] Roberth Lee MD [facility] [place] [address] Social History Tobacco Use Types Packs/Day Years Used Date Smoking Tobacco: Never Assessed [facility] Inpatient Questions Answer Date [...] Associated Diagnosis Comments SURGICAL PATHOLOGY REPORT Routine 10/05/2006 12:04 PM EDT documented in this encounter Results * Surgical Pathology Report (10/05/2006 12:04 PM EDT) Surgical Pathology Report [id number] ? Location: The signing pathologist has (i) examined the relevant preparation(s) for the specimen(s) and (ii) rendered or confirmed the diagnosis(es). . ?Pathology Surgical Pathology Final Report Clinical Information Specimen Submitted: A - Left Glosso- pharyngeal fold biopsy: Pharynx B - Ventral surface of tongue, biopsy: mouth C - Left deep lateral tongue biopsy: mouth Clinical Diagnosis: CA tonsils Gross Description A - Labeled/Fixative: Left glossopharyngeal fold biopsy, pharynx; fresh. Qty/Size/Weight: ?Single, 0.3 x 0.2 x 0.2 cm. Tissue Description: ?? Soft, christian-pink tissue. Sections/Processing : ??(T1) B - Labeled/Fixative: Ventral surface of tongue biopsy, saline. Qty/Size/Weight: ?Single, 0.2 cm in diameter. Tissue Description: ?? Soft, pink-christian tissue. Sections/Processing : ??(T1) C - Labeled/Fixative: Left deep lateral tongue biopsy, formalin. Qty/Size/Weight: ?Four, averaging 0.3 x 0.2 x 0.1 cm. Tissue Description: ?? Soft, christian-pink tissues. Sections/Processing : ??(T1) ??aje/PPS Microscopic Description Slides reviewed, microscopic description not recorded. Diagnosis A - Left Glosso- pharyngeal fold biopsy: Pharynx ?Skeletal muscle and scant squamous mucosa ? Negative for malignancy B - Ventral surface of tongue, biopsy: mouth ?Mild dysplasia (SEE Comment) C - Left deep lateral tongue biopsy: mouth ? Negative for malignancy CR-0 10/08/06 VAM 10/08/06 Verified by: ? Devonte Pereira MD ?Pathologist ?(Electronic Signature) The attending pathologist whose signature appears on this report has reviewed all diagnostic slides and has edited the gross and/or microscopic portion of the report in rendering the final pathologic diagnosis. 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 KADE MANE 10/05/2006 12:0 4 PM EDT Roberth Lee MD PATHOLOGY/CYTOLOGY ORDERABLES KADE MAEN documented in this encounter Visit Diagnoses Not on filedocumented in this encounter Care Teams Production Operations Inspector Relationship Specialty Start Date End Date Dev, Tita Butt APRN [address] [place] [address] PCP - General Internal Medicine 05/15/22 documented as of this encounter
--- OUTSIDE RECORDS SUMMARY | 2023-12-08 20:09 | XMS_ITS | Encounter Summary ---
Author Organization [facility] Address [address] [place] [address] Care Team Providers Care Dairy Lab Technician Name Role Phone Francisco Betancur MD Primary Care Provider Unavailab le Encounter Details Date Type Department Care Team (Late st Contact Info) Description 04/24/2020 Lab Requisition [facility] Pathology & Laboratory Medicine - [address] [address] Outr Resulting Lab, Provider Social History Tobacco Use Types Packs/Day Years Used Date Smoking Tobacco: Never Assessed Sex and Gender Information Value Date Recorded Sex Assigned at Not on file Gender Identity Not on file Sexual Orientation Not on file documented as of this encounter Plan of Treatment Not on file documented as of this encounter Procedures Procedure Name Priority Date/Time Associated Diagnosis Comments ZZCOVID-19 TEST [facility] PCR Today 04/23/2020 16:00 EST COVID-19 TESTING Routine 04/23/2020 16:0 0 EST documented in this encounter Results * COVID-19 TEST [facility] PCR (04/23/2020 16:00 EST) Swab ENTIRE NASOPHARYNX / Unknown 04/23/2020 16:00 EST 04/24/2020 22:14 EST Provider Outr Resulting Lab MICROBIOLOGY - GENERAL ORDERABLES [facility] [address] [place] [address] * COVID-19 TESTING (04/23/2020 16:00 EST) COVID-19 rt-PCR Result Negative Negative 04/26/2020 16:18 EST [facility] Comment: This test has not been FDA cleared or approved. This test has been authorized by FDA under an EUA for use by authorized laboratories. This test has been authorized only for detection of nucleic acid from 2019-nCoV, not for any other viruses or pathogens. This test is only authorized for the duration of the declaration that circumstances exist justifying the authorization of emergency use of in vitro diagnostic tests for detection and/or diagnosis of 2019-nCoV under section 564(b)(1) of Act, 21 U.S.C ?? 360bbb-3(b) (1), unless the authorization is terminated or revoked sooner. Negative results do not preclude 2019-nCoV infection and should not be used as the sole basis for treatment or other patient management decisions. Negative results must be combined with clinical observations, patient history, and epidemiological information. This test was developed and its performance characteristics determined by [facility]. It has not been cleared or approved by the US Food and Drug Administration. FDA does not require this test to go through premarket FDA review. This test is used for clinical purposes. It should not be regarded as investigational or for research. This laboratory is certified under the Clinical Laboratory Improvement Amendments (CLIA) as qualified to perform high complexity clinical laboratory testing. This test is based on the [facility] COVID-19 Emergency Use Authorization (EUA) assay, with minor modification as defined by the FDA Performed on the [employer] 7 Flex RT-PCR System. Performing Lab [facility] Lab 04/26/2020 16:18 EST [facility] Swab 04/23/2020 16:0 0 EST 04/24/2020 22:14 EST Provider Outr Resulting Lab MICROBIOLOGY - GENERAL ORDERABLES [facility] [address] [place] [address] documented in this encounter Visit Diagnoses Not on filedocumented in this encounter Care Teams Dairy Lab Technician Relationship Specialty Start Date End Date Francisco Betancur MD PCP - General 02/01/15 documented as of this encounter
--- OUTSIDE RECORDS SUMMARY | 2023-12-08 20:09 | XMS_ITS | Encounter Summary ---
Author Organization [facility] Address [facility] [place] [address] Care Team Providers Care Footwear Sales Representative Name Role Phone Marck Brody DO Primary Care Provider Encounter Details Date Type Department Care Team (Late st Contact Info) Description 01/27/2010 [place] [phone] Wilfrid Sifuentes MD [facility] HEMATOLOGY/[place] [address] Social History Tobacco Use Types Packs/Day Years Used Date Smoking Tobacco: Never Assessed Sex and Gender Information Value Date Recorded Sex Assigned at Not on file Gender Identity Not on file Sexual Orientation Not on file documented as of this encounter Plan of Treatment Not on file documented as of this encounter Procedures Procedure Name Priority Date/Time Associated Diagnosis Comments DIFFERENTIAL, AUTOMATED STAT 01/27/2010 8:13 AM EST CBC (WITH DIFF) STAT 01/27/2010 8:13 AM EST TSH Routine 01/27/2010 8:13 AM EST COMPREHENSIVE METABOLIC PANEL STAT 01/27/2010 8:13 AM EST documented in this encounter Results * TSH (01/27/2010 8:13 AM EST) Thyroid Stimulating Hormone 2.04 0.27 - 4.20 mcIU/mL [facility] Comment: Cord Blood Reference Range: ??0.35 23.00 uIU/mL Blood specimen (specimen) 01/27/2010 8:13 AM EST 01/27/2010 8:23 AM EST Wilfrid Sifuentes MD CHEMISTRY ORDERABL ES [facility] * (ABNORMAL) COMPREHENSIVE METABOLIC PANEL (NON-FASTING) (01/27/2010 8:13 AM EST) Glucose 62 <=199 mg/dL [facility] Comment:Diabetes: >=200 mg/d L plus symptoms Blood Urea Nitrogen 8 8 - 18 mg/dL [facility] Creatinine 0.71 0.70 - 1.20 mg/dL [facility] Sodium [...] 5 - 15 mmol/L [facility] Calcium 9.5 8.5 - 10.5 mg/dL [facility] Protein, Total 7.2 6.4 - 8.3 gm/dL [facility] Albumin 4.6 3.2 - 5.2 gm/dL [facility] Aspartate Aminotransferase 19 0 - 30 unit/L [facility] Alanine Aminotransferase 16 0 - 30 unit/L [facility] Alkaline Phosphatase 47 40 - 104 unit/L [facility]ILL[facility] Bilirubin, [...] at steady-state (unchanged within the past week). ??Patient age > = 18 years, and for Americans multiply eGFR by 1.2. At present, NKDEP does NOT recommend using [...] disease. References: http://nkdep.nih.gov/resources/NKDEP_Suggestn4Labs_0606_508.pdf http://www.kidney.org/professionals/kls/pdf/faq_gfr.pdf Blood specimen (specimen) 01/27/2010 8:13 AM EST 01/27/2010 8:23 AM EST Wilfrid Sifuentes MD CHEMISTRY ORDERABL ES [facility] * (ABNORMAL) REFLEX LAB-A-DIFF (01/27/2010 8:13 AM EST) Neutrophil % 81.9(H) 34.0 - 71.0 % [facility] MILLENNIUM Neutrophil Absolute 5.40 1.50 - 6.30 x10(3)/mc L [facility] Lymph % 9.6(L) 19.0 - 53.0 % [facility] MILLENNIUM Lymphocytes Abs 0.6(L) 1.0 - 3.6 x10(3)/mc L [facility] MILLENNIUM Monocyte % 5.8 4.0 - 13.0 % C[facility]ER MILLENNIUM Monocyte Abs 0.4 0.2 - 1.0 x10(3)/mc L [facility] MILLENNIUM Eos % 2.1 0.0 - 7.0 % C[facility]ER MILLENNIUM Eosinophils Abs 0.1 0.0 - 0.5 x10(3)/mc L [facility]ER MILLENNIUM Basophil % 0.3 0.0 - 2.0 % CERNER MILLENNIUM Baso Absolute 0.0 0.0 - 0.2 x10(3)/mc L [facility] MILL[facility] Immature Gran % 0.30 0.00 - 0.66 % [facility] Comment: Immature granulocytes(IG's)percentage and absolute count will include metamyelocytes, myelocytes, and promyelocytes. Blood smears from CBC's yielding IG's will be scanned manually for concordance. If this scan disagrees with the automated IG or if promyelocytes are noted, a manual differential will be performed. Immature Gran Absolute 0.02 0.00 - 0.05 x10(3)/mc L [facility] MILLEN[facility] Blood specimen (specimen) 01/27/2010 8:13 AM EST 01/27/2010 8:23 AM EST Wilfrid Sifuentes MD HEMATOLOGY ORDERAB LES [facility] * (ABNORMAL) CBC (01/27/2010 8:13 AM EST) White Blood Cell 6.6 4.0 - 10.0 x10(3)/mc L CERNER MILLENNIUM Red Blood Cell 4.16 3.93 - 5.22 x10(6)/mc L [facility]ER MILLENNIUM Hemoglobin 13.5 11.2 - 15.7 gm/dL C[facility]ER MILLENNIUM Hematocrit 41.9 34.0 - 45.0 % CERNER MILLENNIUM Mean Cell Volume 100.7(H) 79.0 - 94.0 fL CERNER MILLENNIUM Mean Cell Hemoglobin 32.5(H) 26.6 - 32.2 pg CERNER MILLENNIUM Mean Cell Hemoglobin Concentration 32.2 32.0 - 36.5 gm/dL KADE BROCKENNIUM Platelet 292 145 - 370 x10(3)/mc L KADE BROCKENNIUM RDW Standard Deviation 46.6(H) 35.0 - 46.0 fL KADE MILLENNIUM RDW coefficient of variation 12.7 10.9 - 14.4 % KADE BROCKENNIUM Mean Platelet Volume 9.2 9.0 - 12.0 fL KADE BROCKENNIUM Blood specimen (specimen) 01/27/2010 8:13 AM EST 01/27/2010 8:23 AM EST Wilfrid Sifuentes MD HEMATOLOGY ORDERAB LES KADE MANE documented in this encounter Visit Diagnoses Not on filedocumented in this encounter Care Teams Footwear Sales Representative Relationship Specialty Start Date End Date Marck Brody DO [address] [place] [address] PCP - General 02/08/10 10/12/21 documented as of this encounter
--- OUTSIDE RECORDS SUMMARY | 2023-12-08 20:09 | XMS_ITS | Encounter Summary ---
[place] [address] Care Team Providers Care Supermarket Manager Name Role Phone Unavailable Primary Care Provider Unavailabl e Encounter Details Date Type Department Care Team (Late st Contact Info) Description 01/27/2010 10:30 AM EST - 01/27/2010 11:59 PM [facility] Hospital Encounter [place] [phone] Natalie Harris APRN [address] [place] [address] [place] [address] Social History Tobacco Use Types Packs/Day Years [...] Tablet(s), PO, Twice daily PRN 01/27/2010 06/29/2011 levothyroxine (SYNTHROID) 125 mcg tablet 125 MCG = 1 Tablet(s), PO, Once daily 01/27/2010 08/16/2010 documented as of this encounter Plan of Treatment Not on file documented as of this encounter Visit Diagnoses Not on filedocumented in this encounter
--- OUTSIDE RECORDS SUMMARY | 2023-12-08 20:09 | XMS_ITS | Encounter Summary ---
Author Organization [facility] [place] [address] Care Team Providers Care Auto Claim Representative Name Role Phone Unavailable Primary Care Provider Unavailabl e Encounter Details Date Type Department Care Team (Late st Contact Info) Description 01/27/2010 12:30 PM EST Office Visit Obstetrics [place] [address] Екатерина Simmons, CULTURAL HISTORIAN [facility] [place] [address] Social History Tobacco Use Types Packs/Day Years [...]
--- OUTSIDE RECORDS SUMMARY | 2023-12-08 20:09 | XMS_ITS | Encounter Summary ---
Author Organization [facility] Address [address] [place] [address] Care Team Providers Care Irrigation Flume Layer Name Role Phone Unavailable Primary Care Provider Unavailabl e Encounter Details Date Type Department Care Team (Late st Contact Info) Description 10/18/2007 Before PRISM Converted Visit (Maple) [facility] - Maple conversion [address] [place] [address] Marck Brody, DO [address] [place], [place] [address] Social History Tobacco Use Types Packs/Day Years [...] Comments HPV DETECTION, HIGH RISK TYPES Routine 10/18/2007 10:20 EDT CYTOPATHOLOGY Routine 10/18/2007 0:00 EDT documented in this encounter Results * HUMAN PAPILLOMA VIRUS DNA TEST (10/18/2007 10:20 EDT) Specimen Description Cervix, ThinPrep vial [facility] Result Negative for HPV types 16, 18, 31, 33, 35, 39, 45, 51, 52, 56, 58, 59, and 68. [facility] Report Status Final [id number] [facility] 10/18/2007 10:2 0 EDT 10/24/2007 10:20 EDT Marck Brody MICROBIOLOGY - GEN ERAL ORDERABLES [facility] [address] [place] [address] * CYTOPATHOLOGY (10/18/2007 0:00 EDT) Pathology Report: CYTOPATHOLOGY REPORT ? Reports generated via electronic interface contain original data; ? however they are lacking the format of the original report. ? Caution should be taken when reading/interpreti ng unformatted reports. ? Name: ? THERESA HENLEY ? Accession #: ? [id number] ? : ? 1970 (Age: 37) ??F ?Collect Date: ? 10/18/2007 ? Location: ? [facility] ? Receive Date: ? 10/22/2007 ? Provider: ?MARCK F ANGEL DO ? Copy to: ? Specimen/Source: ?ThinPrep Pap Test, Cervix/Endocervix, processed on [employer] ThinPrep Imaging System, with manual evaluation ? Last Menstrual Period: ? 07/14/08 ? Other: ? HPVDX - HPV testing requested regardless of diagnosis on current ThinPrep Pap ?? test. ? SPECIMEN ADEQUACY ? Satisfactory for Evaluation ? - transformation zone component present ? GENERAL CATEGORIZATION ? Negative for Intraepithelial Lesion or Malignancy ? Document reviewed and electronically signed by: ? Amena Mir, CT(ASCP) ? Report Date: ??10/23/2007 13:20 ? End of Report ? [facility] 10/18/2007 10/22/2007 Marck Brody DO PATHOLOGY ORDERABL ES [facility] [address] [place] [address] documented in this encounter Visit Diagnoses Not on filedocumented in this encounter
--- OUTSIDE RECORDS SUMMARY | 2023-12-08 20:09 | XMS_ITS | Referral Summary ---
Author Organization [facility] Address [address] [place] [address] Care Team Providers Care Gun Stock Checker Name Role Phone Francisco Betancur MD Primary Care Provider Unavailab le Social History Tobacco Use Types Packs/Day Years Used Date Smoking Tobacco: Never Assessed Sex and Gender Information Value Date Recorded Sex Assigned at Not on file Gender Identity Not on file Sexual Orientation Not on file Plan of Treatment Not on file Care Teams Gun Stock Checker Relationship Specialty Start Date End Date Francisco Betancur MD PCP - General 02/01/15
--- OUTSIDE RECORDS SUMMARY | 2023-12-08 20:09 | XMS_ITS | Encounter Summary ---
Author Organization [facility] Address [facility] [place] [address] Care Team Providers Care Slurry Plant Operator Name Role Phone Unavailable Primary Care Provider Unavailabl e Encounter Details Date Type Department Care Team (Late st Contact Info) Description 01/27/2010 10:00 AM EST Follow-Up Hematology [place] [address] Lindsey Gar APRN [facility] HEMATOLOGY/[place] [address] Social History Tobacco Use Types Packs/Day Years [...]
--- OUTSIDE RECORDS SUMMARY | 2023-12-08 20:09 | XMS_ITS | Encounter Summary ---
Author Organization [facility] Address [address] [place] [address] Care Team Providers Care Coater Smoking Pipe Name Role Phone Francisco Betancur MD Primary Care Provider Unavailab le Encounter Details Date Type Department Care Team (Late st Contact Info) Description 12/29/2019 Lab Requisition [facility] Pathology & Laboratory Medicine - [address] [address] Marck Brody, DO [address] [place] [phone] Encounter for other general examination Social History Tobacco Use Types Packs/Day Years Used Date Smoking Tobacco: Never Assessed Sex and Gender Information Value Date Recorded Sex Assigned at Not on file Gender Identity Not on file Sexual Orientation Not on file documented as of this encounter Plan of Treatment Not on file documented as of this encounter Procedures Procedure Name Priority Date/Time Associated Diagnosis Comments PAP TEST Today 12/26/2019 8:50 EDT Encounter for other general examination HPV DNA DETECTION WITH GENOTYPING, PCR Today 12/26/2019 8:50 EDT Encounter for other general examination documented in this encounter Results * HUMAN PAPILLOMAVIRUS (HPV) DETECTION-HIGH RISK TYPES (12/26/2019 8:50 EDT) HPV other High Risk types, PCR Negative Negative 01/06/2020 15:14 EDT [facility] Comment:No E6 or E7 mRNA is detected from HPV types 16,18,31,33,35,39,45,51,52,56,58,59,66, and 68 by dental practice manager mediated amplification. Papanicolaou smear specimen (specimen) CERVIX UTERI STRUCTURE / Unknown 12/26/2019 8:50 EDT 01/05/2020 10:50 EDT Marck Velasquez Ronn DO MICROBIOLOGY - GEN ERAL ORDERABLES [facility] [address] [place] [address] * PAP TEST (12/26/2019 8:50 EDT) Specimens A. 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 01/06/2020 15:14 [facility] Attestation . 01/06/2020 15:14 [facility] at 1514 Clinical History See below 01/06/20 15:14 [facility] HPV The result for the Human Papillomavirus (HPV) Detection-High Risk Types is Negative. No E6 or E7 mRNA is detected from HPV types 16,18,31,33,35,39 ,45,51,52,56,58,5 9,66, and 68 by dental practice manager mediated amplification.Tawnya ting was performed on specimen [id number] and was resulted on 01/06/2020 1506 EDT by MELYSSA, LAB INSTRUMENT RESULTS IN 01/06/2020 15:14 T [facility] Performing Lab [facility] 01/06/2020 15:14 [facility] Scanned Images 01/06/2020 15:14 [facility] Papanicolaou smear specimen (specimen) CERVIX UTERI STRUCTURE / Unknown 12/26/2019 8:50 EDT 12/29/2019 10:51 EDT Marck Brody DO PATHOLOGY ORDERABL ES [facility] [address] [place] [address] documented in this encounter Visit Diagnoses Diagnosis Encounter for other general examination documented in this encounter Care Teams Coater Smoking Pipe Relationship Specialty Start Date End Date Francisco Betancur MD PCP - General 02/01/15 documented as of this encounter
--- OUTSIDE RECORDS SUMMARY | 2023-12-08 20:09 | XMS_ITS | Encounter Summary ---
[place] [address] Care Team Providers Care Weaver Hand Name Role Phone Unavailable Primary Care Provider Unavailabl e Encounter Details Date Type Department Care Team (Late st Contact Info) Description 01/27/2010 8:00 AM EST Procedure visit Hematology [place] [address] Social History Tobacco Use Types Packs/Day Years [...]
--- OUTSIDE RECORDS SUMMARY | 2023-12-08 20:09 | XMS_ITS | Encounter Summary ---
Author Organization [facility] Address [address] [place] [address] Care Team Providers Care Casting House Laborer Name Role Phone Unavailable Primary Care Provider Unavailabl e Encounter Details Date Type Department Care Team (Late st Contact Info) Description 08/10/2006 Results Only [facility] - Maple conversion [address] [place] [address] Marck Brody F, DO [address] [place], [place] [id number] Social History Tobacco Use Types Packs/Day Years Used Date Smoking Tobacco: Never Assessed Sex and Gender Information Value Date Recorded Sex Assigned at Not on file Gender Identity Not on file Sexual Orientation Not on file documented as of this encounter Plan of Treatment Not on file documented as of this encounter Procedures Procedure Name Priority Date/Time Associated Diagnosis Comments CYTOPATHOLOGY Routine 08/10/2006 0:00 EDT documented in this encounter Results * CYTOPATHOLOGY (08/10/2006 0:00 EDT) Pathology Report: CYTOPATHOLOGY REPORT Reports generated via electronic interface contain original data; however they are lacking the format of the original report. Caution should be taken when reading/interpreti ng unformatted reports. Name: ? THERESA HENLEY ? Accession #: ? [id number] : ? 1970 (Age: 36) ??F ?Collect Date: ? 08/10/2006 Location: ? [facility] ? Receive Date: ? 08/15/2006 Provider: ?MARCK BRODY DO Copy to: ? Specimen/Source: ?ThinPrep Pap Test, Cervix/Endocervix, processed on [employer] ThinPrep Imaging System, with manual evaluation Last Menstrual Period: ? 07/20/06 Other: ? HPVA - HPV testing requested if ASC-US on the current ThinPrep Pap test. ? SPECIMEN ADEQUACY ? Satisfactory for Evaluation - transformation zone component present - scant squamous epithelial component GENERAL CATEGORIZATION ? Negative for Intraepithelial Lesion or Malignancy ? Document reviewed and electronically signed by: ? SHILPA May(ASCP) ? Report Date: ??08/17/2006 14:20 End of Report JASON HENDRICKSON 08/10/2006 08/15/2006 Marck Brody DO PATHOLOGY ORDERABL ES JASON HENDRICKSON [address] [place] [address] documented in this encounter Visit Diagnoses Not on filedocumented in this encounter
--- OUTSIDE RECORDS SUMMARY | 2023-12-08 20:09 | XMS_ITS | Encounter Summary ---
Author Organization [facility] Address [address] [place] [address] Care Team Providers Care Crop Adjuster Name Role Phone Unavailable Primary Care Provider Unavailabl e Encounter Details Date Type Department Care Team (Late st Contact Info) Description 05/14/2006 Results Only [facility] - Maple conversion [address] [place] [address] Bolivar [facility] DDS [facility] [place] [address] Social History Tobacco Use [...] Date/Time Associated Diagnosis Comments SURGICAL PATHOLOGY Routine 05/14/2006 0:00 EST documented in this encounter Results * SURGICAL PATHOLOGY (05/14/2006 0:00 EST) Pathology Report: SURGICAL PATHOLOGY REPORT Reports generated via electronic interface contain original data; however they are lacking the format of the original report. Caution should be taken when reading/interpreti ng unformatted reports. Name: ? THERESA HENLEY ? Accession #: ? [id number] ? : ? 1970 (Age: 35) ??F ? Collect Date: ? 05/14/2006 ? Location: ? [facility] ? Receive Date: ? 05/14/2006 ? Provider: Bolivar HASSAN DDS Copy to: ABRAN MAS MD ? Final Pathologic Diagnosis: ? Tongue, left posterolateral aspect, excisional biopsy: 1. ?Consistent with oral hairy leukoplakia. ??See comment. 2. ? PAS stain negative for fungal hyphae. 3. ? No definite dysplasia or invasive tumor identified. Comment: ? Sections show irregular squamous acanthosis with shaggy parakeratosis, mild hyperkeratosis and sparse inflammation. ??The superficial mucosa shows focal aggregates of pale keratinocytes with ballooning degeneration, koilocytic changes and increased keratohyaline granules, which are typical changes described in oral hairy leukoplakia and thought to be secondary to EBV and HPV infection. ??A mild lichenoid chronic inflammatory infiltrate is noted in the superficial submucosa. ??Focal basilar atypia with focal architectural complexity raises the concern for squamous dysplasia, however, the changes fall short of a definitively dysplastic lesion or invasive tumor. ?? Oral hairy leukoplakia is usually seen in the context of HIV infection and it is strongly recommended to rule it out with appropriate serologic tests. Furthermore, this lesion shows a high incidence of clinical superinfection by Bharti fungal organisms. ??Dr. Aquiles Jorge has reviewed this case and concurs with this assessment. ??(Dr. Lynn)/[facility] Document reviewed and electronically signed by: EFRAIN LYNN MD Report ??Date: 05/23/2006 11:26 By the signature above, the attending physician certifies that he/she has personally conducted a gross and/or microscopic examination of the described specimens and rendered or confirmed the above diagnosis. Specimen(s) Received: ? L post lat tongue Clinical History: ? 3 x 1 cm irregular patch, leukoplakia/erythr oplakia; non-indurated incisional bx education courses sales representative portion of this impressive/frighte sita lesion; lesion x several wks/mos; minimal response to Nystatin rinses x2 wks; R/O dysplasia/neoplasi a Gross Description: ? Received in formalin labelled Callanan and post tongue is an ellipse of mucosal covered tissue which measures 1.0 x 0.5 cm, excised to a depth of 0.3 cm. ??The mucosa has a slightly eroded, light christian and white, mottled area which measures 0.5 x 0.4 cm while the remaining mucosal surface is generally smooth and white. ??The eroded area on the mucosa extends to one short edge of the ellipse. ??The resection margin is black inked. ??The specimen is quadrisected with the two central sections submitted as (A1) and the two tips as (A2), reverse en face. ??(Antonio Almodovar/[facility] End of Report JASON HENDRICKSON 05/14/2006 05/14/2006 5:3 4 EST C Hunter Hassan DDS PATHOLOGY ORDERAB LES JASON HENDRICKSON [address] [place] [address] documented in this encounter Visit Diagnoses Not on filedocumented in this encounter
--- OUTSIDE RECORDS SUMMARY | 2023-12-08 20:09 | XMS_ITS | Encounter Summary ---
Author Organization [facility] Address [facility] [place] [address] Care Team Providers Care Take Away Man Name Role Phone Dev, Tita Butt APRN Primary Care Provider [phone]- [phone] Encounter Details Date Type Department Care Team (Late st Contact Info) Description 09/27/2006 Orders [place] [address] Roberth Lee MD [facility] [address] Social History Tobacco Use Types Packs/Day Years Used Date Smoking Tobacco: Never Assessed [facility] Inpatient Questions Answer Date Recorded [...] Associated Diagnosis Comments SURGICAL PATHOLOGY REPORT Routine 09/27/2006 8:32 AM EDT documented in this encounter Results * Surgical Pathology Report (09/27/2006 8:32 AM EDT) Surgical Pathology Report [id number] ? Location: The signing pathologist has (i) examined the relevant preparation(s) for the specimen(s) and (ii) rendered or confirmed the diagnosis(es). . ?Pathology Surgical Pathology Final Report Clinical Information Specimen Submitted: CONSULTATION CASE A - 1 slides labeled [id number], collection date 07/02/2006. B - 8 slides labeled [id number], collection date 09/13/2006. Note: ??Also received previously reviewed as [id number], 3 slides labeled [id number] collection date 05/14/2006. ??These will not be further reviewed. [id number] Report to: [facility] Surgical Pathology [address] ??[id number] Gross Description [facility] pathology slide(s) are reviewed. ??Refer to Diagnosis and Specimen Submitted for specific case information. For the full text of the [facility] report(s) please refer to Non-DH Documentation Pathology in the Clinical Information System (CIS). Microscopic Description Slides reviewed, microscopic description not recorded. Diagnosis CONSULTATION CASE A - One slide labeled [id number], collection date 07/02/2006 Tongue, left lateral biopsy: ?? Dysplasia associated with hyperkeratosis, hypergranulosis, ?? and bacterial colonization (see Comment). 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 ?2 - Radial size - 1.0 cm, depth - 0.5 cm (slide measure A3). ?3 - Perineural invasion is present. ??No definitive vascular invasion is ?identified. ?4 - The surface shows ulceration and dysplasia. ?5 - Margins: ?Tumor extends to the blue-inked margin along a broad front (medial ?per report). ?Tumor extends focally to the deep margin. ?Dysplasia, low grade, is present at the black-inked margin (lateral ?per report). ?The anterior tip shows hyperplasia with verrucous features. ?The posterior tip shows moderate dysplasia. . Diagnosis b - Mucosa, left floor of mouth, biopsy: ?Squamous mucosa with low-grade dysplasia. CR-0 10/01/06 AJE 10/02/06 Verified by: ? Lexi Dorsey, DO ?Pathologist ?(Electronic Signature) The attending pathologist whose signature appears on this report has reviewed all diagnostic slides and has edited the gross and/or microscopic portion of the report in rendering the final pathologic diagnosis. Comment A - The tissue shows superficial keratohyaline granules and cytologic atypia with full-thickness atypia. ??Toward the edge of the biopsy fragment the base of this lesion is cut through. ??Invasion cannot be entirely excluded. KADE MANE 09/27/2006 8:32 AM EDT Roberth Lee MD PATHOLOGY/CYTOLOGY ORDERABLES KADE MANE documented in this encounter Visit Diagnoses Not on filedocumented in this encounter Care Teams Take Away Man Relationship Specialty Start Date End Date Dev, Tita Butt APRN [address] [place] [address] PCP - General Internal Medicine 05/15/22 documented as of this encounter
--- OUTSIDE RECORDS SUMMARY | 2023-12-08 20:09 | XMS_ITS | Encounter Summary ---
Author Organization [facility] Address [address] [place] [address] Care Team Providers Care Senior Government Program Analyst Name Role Phone Unavailable Primary Care Provider Unavailabl e Encounter Details Date Type Department Care Team (Late st Contact Info) Description 09/13/2006 Results Only [facility] - Maple conversion [address] [place] [address] Efraín Rausch MD [address] [place] [address] Social History Tobacco Use Types Packs/Day [...] Date/Time Associated Diagnosis Comments SURGICAL PATHOLOGY Routine 09/13/2006 0:00 EDT documented in this encounter Results * SURGICAL PATHOLOGY (09/13/2006 0:00 EDT) Pathology Report: SURGICAL PATHOLOGY REPORT Reports generated via electronic interface contain original data; however they are lacking the format of the original report. Caution should be taken when reading/interpreti ng unformatted reports. Name: ? THERESA HENLEY ? Accession #: ? [id number] ? : ? 1970 (Age: 36) ??F ? Collect Date: ? 09/13/2006 ? Location: ? [facility] ? Receive Date: ? 09/13/2006 ? Provider: EFRAÍN RAUSCH MD Copy to: EFRAIN ORTIZ DO ? Final Pathologic Diagnosis: ? A. ?? Tongue, left, biopsy: ? 1. ?? Squamous cell carcinoma, invasive, poorly differentiated. See comment. ? - Medial surgical resection margin positive. B. ?Mucosa, left floor of mouth, biopsy: ? 1. ?? Squamous mucosa with low grade dysplasia. ? Comment: ? In specimen A there is a poorly differentiated invasive squamous cell carcinoma extending to the medial resection margin. The tumor demonstrates a striking endophytic growth pattern with no convincing in situ component identified. The previous biopsies ([id number] and [id number]) have been reviewed and no definitive evidence of invasive carcinoma is seen. The tumor measures 1.0 cm in greatest dimension on specimen submitted. Staging is differed to final excision. Specimen B shows squamous mucosa with hyperkeratosis and low grade dysplasia. Results communicated to Dr. Efraín Rausch via phone on 09/18/06. (Dr. San). Document reviewed and electronically signed by: Jim San MD Report ??Date: 09/18/2006 15:53 By the signature above, the attending physician certifies that he/she has personally conducted a gross and/or microscopic examination of the described specimens and rendered or confirmed the above diagnosis. Specimen(s) Received: A. ?Left, lateral tongue lesion bx, long suture ??anterior, short suture - medial ?? B. ? Bs left floor of mouth Clinical History: ? Lesion left, lateral tongue, dysplasia/hairy tongue, floor of mouth leukoplakia Gross Description: ? Received in formalin labelled Edmundoanan and left lateral tongue lesion is a portion of tongue which is received oriented as per the surgical pathologic requisition slip which measures 1.5 cm anterior to posterior, 1.7 cm medial to lateral, and is excised to a greatest depth of 0.9 cm. ??The mucosal surface toward the medial edge is slightly depressed and light christian over an area measuring 0.9 x 0.6 cm, while the remaining mucosal surface is slightly irregular, firm and white. ??The surgical margin of the medial half of the specimen is blue-inked while the surgical margin of the lateral half of the specimen is black-inked. ??The specimen is serially sectioned from anterior to posterior and submitted as follows: BLOCK FERNANDES A1 ?Anterior tip reverse en face A2-A6 ?Ten central sections from anterior to posterior A7 ?Posterior end reverse en face Received in formalin labelled Callanan and left floor of mouth is a 0.5 x 0.2 x 0.1 cm firm white piece of tissue which is submitted intact as (B). ??(Antonio Monroy)/[facility] End of Report JASON HENDRICKSON 09/13/2006 09/13/2006 1:0 0 EDT Efraín Rausch MD PATHOLOGY ORDERABLES Performing Organization Address City/State/[facility] Co de Phone Number [facility] [address] [place] [address] documented in this encounter Visit Diagnoses Not on filedocumented in this encounter
--- OUTSIDE RECORDS SUMMARY | 2023-12-08 20:09 | XMS_ITS | Encounter Summary ---
Author Organization [facility] Address [facility] [place] [address] Care Team Providers Care Psychiatric Attendant Name Role Phone Dev, Tita Butt APRN Primary Care Provider +1- [phone] Encounter Details Date Type Department Care Team (Late st Contact Info) Description 06/06/2006 Orders [place] [address] Didier Delgado MD [facility] [place] [address] Social History Tobacco Use Types Packs/Day Years Used Date Smoking Tobacco: Never Assessed [facility] Inpatient Questions Answer Date Recorded [...] Associated Diagnosis Comments SURGICAL PATHOLOGY REPORT Routine 06/06/2006 9:54 AM EDT documented in this encounter Results * Surgical Pathology Report (06/06/2006 9:54 AM EDT) Surgical Pathology Report [id number] ? Location: The signing pathologist has (i) examined the relevant preparation(s) for the specimen(s) and (ii) rendered or confirmed the diagnosis(es). . ?Pathology Surgical Pathology Final Report Clinical Information Specimen Submitted: CONSULTATION CASE A - 4 slides labeled [id number], collection date 05-14-2006 Report to: [facility] Surgical Pathology [address] ??[address] Gross Description [facility] pathology slide(s) are reviewed. ??Refer to Diagnosis and Specimen Submitted for specific case information. For the full text of the [facility] report(s) please refer to Non-DH Documentation Pathology in the Clinical Information System (CIS). Microscopic Description Slides reviewed, microscopic description not recorded. Diagnosis CONSULTATION CASE Tongue, left posterolateral aspect, biopsy Dysplasia (See Comment) with hyperkeratosis CR-0 06/12/06 VAM 06/12/06 Verified by: ? Devonte Pereira MD ?Pathologist ?(Electronic Signature) The attending pathologist whose signature appears on this report has reviewed all diagnostic slides and has edited the gross and/or microscopic portion of the report in rendering the final pathologic diagnosis. Comment The lesion is characterized by dysplasia at the basal aspect of the mucosa with rounded downgrowth associated with a lichenoid inflammatory change. The superficial aspect of the mucosa shows hyperkeratosis, hypergranulosis and features of koilocytotic atypia. Additional history is obtained from the e[facility] and Dr. Delgado. The case has been reviewed by members of the deramtopathology group and Dr. Dorsey who concur with the diagnosis of dysplasia. I have discussed the case with Dr.Thomas Palmer at [facility]. KADE MANE 06/06/2006 9:54 AM EDT Didier Delgado MD PATHOLOGY/CYTOLOGY ORDERABLES KADE MANE documented in this encounter Visit Diagnoses Not on filedocumented in this encounter Care Teams Psychiatric Attendant Relationship Specialty Start Date End Date Dev, Tita Butt APRN [address] [place] [address] PCP - General Internal Medicine 05/15/22 documented as of this encounter
--- OUTSIDE RECORDS SUMMARY | 2023-12-08 20:09 | XMS_ITS | Encounter Summary ---
Author Organization [facility] Address [facility] [place] [address] Care Team Providers Care Food Counter Attendant Name Role Phone Unavailable Primary Care Provider Unavailabl e Encounter Details Date Type Department Care Team (Late st Contact Info) Description 01/27/2010 10:00 AM EST Follow-Up H[place]ology [place] [address] Wilfrid Sifuentes MD [facility] HEMATOLOGY/[place] [address] Social History Tobacco Use Types Packs/Day Years [...]
--- OUTSIDE RECORDS SUMMARY | 2023-12-08 20:09 | XMS_ITS | Encounter Summary ---
Author Organization [facility] Address [facility] [place] [address] Care Team Providers Care Home Appliance Technician Name Role Phone Dev, Tita Butt APRN Primary Care Provider [phone] Encounter Details Date Type Department Care Team (Late st Contact Info) Description 10/30/2006 Orders [place] [address] Roberth Lee MD [facility] [place] [address] Social History Tobacco Use Types Packs/Day Years Used Date Smoking Tobacco: Never Assessed [facility] Inpatient Questions Answer Date Recorded [...] Associated Diagnosis Comments SURGICAL PATHOLOGY REPORT Routine 10/30/2006 11:49 AM EDT documented in this encounter Results * Surgical Pathology Report (10/30/2006 11:49 AM EDT) Surgical Pathology Report [id number] ? Location: [facility]; [facility]; A The signing pathologist has (i) examined the relevant preparation(s) for the specimen(s) and (ii) rendered or confirmed the diagnosis(es). . ?Pathology Surgical Pathology Final Report Clinical Information Specimen Submitted: A - Level 3 Lymph node: neck ?? for frozen section B - Anterior deep tongue. ??for frozen section C - Branch of lingual nerve. ??for frozen section D - Deep margin medial. ??for frozen section E - Proximal lingual nerve. ??for frozen section F - Kevin-glossectomy/ functional neck dissection - refer to pt hx for details G - posterior deep superior ??for frozen section H - posterior deep inferior ??for frozen section I - Anterior ventral tongue for frozen section J - Anterior tonsil pillar: tongue ??for frozen section K - Fom mucosa posterior for frozen section L - fom mucosa anterior: tongue ??for frozen section M - Retromolar trigone: mouth ??for frozen section N - Gingival margin: mouth for frozen section O - Re-resection see pt hx #13: Mouth Clinical History: Hemiglossectomy/ functional neck dissection/ levels 1-5/ long single suture level 1/ long dbl level 2/ long quad level 4/ long gurwinder level 5 glossectomy/ single short- anterior tongue/ dbl short-medial margin/ triple short anterior tonsillar pillar. Specimen #13(our specimen O= re-resection mucosa floor of mouth posterior single stitch= anterior tonsil pillar double stitch=lateral margin Clinical Diagnosis: Tongue Cancer Frozen Section Diagnosis Frozen section(s) performed. ??Please refer to separate electronic frozen section report(s). Gross Description A - Labeled/Fixative: Left neck, level-3 lymph node; fresh. Qty/Size/Weight: ?Single, 1.4 x 0.8 x 0.8 cm. Tissue Description: ?? Christian-white, well-encapsulated portion of soft tissue. ?Sectioning reveals christian-white, rubbery parenchyma. Sections/Processi ng: ??Frozen section residue is resubmitted for permanent ?section. ??(T1) ??aje/MLP B - Labeled/Fixative: Labeled with the patient's name, anterior deep ?tongue; fresh. Qty/Size/Weight: ?Single, 0.7 x 0.7 x 0.3 cm. Tissue Description: ?? Christian-red soft tissue fragment with cautery artifact. Sections/Processi ng: ??Frozen section residue is resubmitted for permanent ?section. ??(T1) C - Labeled/Fixative: Labeled with the patient's name, branch of lingual ?nerve; fresh. Qty/Size/Weight: ?Single, 0.5 x 0.1 x 0.1 cm. Tissue Description: ?? Christian-red soft tissue fragment. Sections/Processi ng: ??Frozen section residue is resubmitted for permanent ?section. ??(T1) . Gross Description D - Labeled/Fixative: Labeled with the patient's name, deep margin medial; ?fresh. Qty/Size/Weight: ?Single, 1.4 x 0.7 x 0.5 cm. Tissue Description: ?? Christian-red, rubbery soft tissue mass. Sections/Processi ng: ??Frozen section residue is resubmitted for permanent ?section. ??(T1) E - Labeled/Fixative: Labeled with the patient's name, proximal lingual ?nerve; fresh. Qty/Size/Weight: ?Single, 0.3 x 0.2 x 0.2 cm. Tissue Description: ?? Soft, christian-pink tissue. Sections/Processi ng: ??Frozen section residue is resubmitted for permanent ?section. ??(T1) F - Labeled/Fixative: Labeled with the patient's name, kevin-glossectomy - ?functional neck dissection - refer to patient hx for ?details; fresh. Qty/Size/Weight: ?21.5 x 6.0 x 3.0 cm. Tissue Description: ?? Neck dissection with included partial glossectomy. ?The specimen is christian-red and ragged. ??Multiple sutures denote the lymph node levels. ??A submandibular gland is included with the specimen. ??Level I shows possible lymph nodes. ??In addition there is an unremarkable submandibular gland and a portion of christian-red muscle. ??Fifteen level-II lymph nodes are identified, the largest 2.0 cm in greatest dimension. ??Level III reveals three possible lymph nodes, the largest 1.8 cm in greatest dimension. ??Level IV reveals one possible lymph node, 1.0 cm in greatest dimension. ??Level V reveals twenty-five possible lymph nodes, the largest 1.2 cm in greatest dimension. ??In addition, a 4.5 x 4.0 x 2.3-cm portion of tongue and anterior tonsillar pillar are received. Tissue is denoted with anterior tongue medial margin and anterior tonsillar pillar. ??The specimen is inked along the medial margin from anterior to posterior with black ink. ??The medial margin is inked from anterior to posterior with black ink, and the anterior tonsillar pillar margin is inked from anterior to posterior with orange ink. ??Sectioning reveals a 0.7-cm, christian-white, rubbery tumor nodule, 0.3 cm from the medial margin. Sections/Processi ng: ??(F1) level-I submandibular gland; (F2) level-I muscle ?fragments; (F3) two level-I lymph nodes, submitted whole; (F4) three level-I lymph nodes, submitted whole; (F5) largest level-II lymph node, bisected; (F6) one level-II lymph node, whole; (F7) two level-II lymph nodes, whole; (F8) three level-II lymph nodes, whole; (F9) eight possible level-II lymph nodes; (F10) two possible level-III lymph nodes; (F11) largest level-III lymph node; (F12) remaining soft tissue from level III; (F13) possible level-IV lymph node; (F14) remainder of level-IV soft tissue; (F15) three level-V lymph nodes, whole; (F16) three level-V lymph nodes, whole; (F17) four level-V lymph nodes, whole; (F18) four level-V lymph nodes, whole; (F19) five level-V lymph nodes, each submitted whole; (F20) six level-V lymph nodes, submitted whole; (F21) additional possible level- V lymph nodes; (F22-F31) the anterior margin of the specimen, serially sectioned and entirely submitted from the anterior tonsillar pillar margin toward the medial margin; (F32) slice II. ??Slices submitted from anterior to posterior up to (F44); (F45-F51) the posterior tip, serially sectioned from the anterior tonsillar pillar toward the medial margin. ??(R51) G - Labeled/Fixative: Labeled with the patient's name, posterior deep ?superior; fresh. Qty/Size/Weight: ?Single, 1.5 x 0.8 x 0.7 cm. Tissue Description: ?? Christian-red soft tissue fragment. Sections/Processi ng: ??Frozen section residue is resubmitted for permanent ?section. ??(T1) H - Labeled/Fixative: Labeled with the patient's name, posterior deep ?inferior; fresh. Qty/Size/Weight: ?Single, 1.3 x 0.8 x 0.5 cm. . Gross Description Tissue Description: ?? Christian-red soft tissue fragment. Sections/Processi ng: ??Frozen section residue is resubmitted for permanent ?section. ??(T1) I - Labeled/Fixative: Labeled with the patient's name, anterior ventral ?tongue; fresh. Qty/Size/Weight: ?Single, 1.0 x 0.4 x 0.2 cm. Tissue Description: ?? Christian-pink soft tissue fragments. Sections/Processi ng: ??Frozen section residue is resubmitted for permanent ?section. ??(T1) J - Labeled/Fixative: Labeled with the patient's name, anterior tonsil ?pillar; fresh. Qty/Size/Weight: ?Single, 0.7 x 0.4 x 0.3 cm. Tissue Description: ?? Soft, christian tissue. Sections/Processi ng: ??Frozen section residue is resubmitted for permanent ?section. ??(T1) K - Labeled/Fixative: Labeled with the patient's name, FOM mucosa ?posterior; fresh. Qty/Size/Weight: ?Single, 1.9 x 0.4 x 0.4 cm. Tissue Description: ?? Christian-red soft tissue fragment. Sections/Processi ng: ??Frozen section residue is resubmitted for permanent ?section. ??(T1) L - Labeled/Fixative: Labeled with the patient's name, FOM mucosa anterior; ?fresh. Qty/Size/Weight: ?Single, 0.7 x 0.2 x 0.2 cm. Tissue Description: ?? Soft, christian tissue. Sections/Processi ng: ??Frozen section residue is resubmitted for permanent ?section. ??(T1) M - Labeled/Fixative: Mouth, retromolar trigone, fresh. Qty/Size/Weight: ?Single, 0.8 x 0.5 x 0.4 cm. Tissue Description: ?? Christian-red soft tissue fragment. Sections/Processi ng: ??Frozen section residue is resubmitted for permanent ?section. ??(T1) N - Labeled/Fixative: Labeled with the patient's name, mouth, gingival ?margin; fresh. Qty/Size/Weight: ?Single, 0.6 x 0.3 x 0.3 cm. Tissue Description: ?? Smooth, white, glistening soft tissue. Sections/Processi ng: ??Frozen section residue is resubmitted for permanent ?section. ??(T1) O - Labeled/Fixative: Labeled with the patient's name, mouth, re-resection ?see pt hx #13, fresh. Qty/Size/Weight: ?Single, 2.4 x 0.4 x 0.3 cm. Tissue Description: ?? Christian-red soft tissue fragments. ??The portion of tissue ?has two suture designations. ??The single stitch denotes the anterior tonsil pillar, and the double stitch denotes the lateral margin. ??The specimen is inked from anterior to posterior along the lateral margin with black ink, along the medial margin with yellow ink. Sections/Processi ng: ??The specimen is serially sectioned and entirely submitted from anterior to posterior. (T6) ?aje/MLP Microscopic Description Slides reviewed, microscopic description not recorded. Diagnosis REVISED REPORT (see Comment) A - Level 3 Lymph node, for frozen section: . Diagnosis ?Metastatic squamous cell carcinoma. B - Anterior deep tongue biopsy, for frozen section: ? Negative for malignancy. C - Branch of lingual nerve biopsy, for frozen section: ? Negative for malignancy. D - Deep margin medial, for frozen section: ? Negative for malignancy. E - Proximal lingual nerve, for frozen section: ? Negative for malignancy. F - SPECIMEN - ?Kevin-glossectom y/functional neck ?? dissection HISTOLOGIC TYPE - ? Squamous cell carcinoma, keratinizing HISTOLOGIC GRADE - ?High TUMOR PRIMARY SITE - ?Left lateral tongue TUMOR SIZE - ?1.0 cm (greatest dimension, ? [id number]) Greatest depth of invasion - ? 10 mm INVASIVE FRONT - ?Infiltrative with sarcomatoid ? elements (infiltrative, pushing, ?other) CARCINOMA IN-SITU - ? Present (present/absent/u lcerated) VASCULAR INVASION - ? Not identified CHRIS-NEURAL INVASION - ?Not identified TUMOR EXTENT - ?Tumor deeply invades glossal ? musculature MARGINS - ? Specimen uninvolved ?Closest Uninvolved margin - ? 4 mm. (specimen O, posterior floor of ? mouth) LYMPH NODES ? Dissection type(s) - ? Level 3 lymph node, ?Functional neck dissection ? (Specimen(s) A, F) ? Total nodes examined - ? 53 ? Total Positive nodes - ? 4 ?(Nodes per level) - ? Level I: 5 (0/5) ?Level II: 14 (05/02) ?Level III: 2 (1/2) ?Level IV: 1 (01) ?Level V: 31 (04/18) ? For positive nodes: ? Largest metastatic focus - ?? 0.6 cm ? Extra capsular extension - ?? Not identified OTHER FINDINGS: ? Extensive hyperplasia and low and ? high grade mucosal dysplasia ?Normal submandibular gland CORRELATION Prior Biopsy - ?[id number] Pathologic stage ?pT1 pN2b pMX (AJCC, 6th ed.) Note- Pathologic staging is based on the pathologic assessment of this specimen. ??All necessary data may not be available to the pathologist at time of pathologic staging. ??The distinction of some tumor (T) stages require clinical information. G - posterior deep superior, for frozen section: ?Negative for malignancy. . Diagnosis H - posterior deep inferior, for frozen section: ?Negative for malignancy. I - Anterior ventral tongue, for frozen section: ?Negative for malignancy. J - Anterior tonsil pillar, for frozen section: ?Negative for malignancy. K - Floor of mouth mucosa posterior, for frozen section: ?Squamous cell carcinoma (seen only in frozen section). L - Floor of mouth mucosa anterior, for frozen section: ?Negative for malignancy. M - Retromolar trigone, for frozen section: ?Negative for malignancy. N - Gingival margin, for frozen section: ?Negative for malignancy. O - Re-resection floor of mouth posterior: ?Negative for malignancy. 11/02/06 VAM 11/16/06 Verified by: ? Devonte Pereira MD ?Pathologist ?(Electronic Signature) The attending pathologist whose signature appears on this report has reviewed all diagnostic slides and has edited the gross and/or microscopic portion of the report in rendering the final pathologic diagnosis. Comment Revision * Note: ??The mistyping of greatest depth of invasion was corrected from 100 mm to 10 mm. ??In addition, the number of positive lymph nodes per level was added following the total number of lymph nodes present in each level. ??There are no other changes to the text of this report. _ ? Pathology Frozen Section Report Frozen Section Report M - Retromolar trigone: mouth ??for frozen section ? Negative for malignancy N - Gingival margin: mouth for frozen section ? Negative for malignancy 10/30/06 ??Verified by: ??Devonte Pereira MD, Pathologist The attending pathologist whose electronic signature appears on this report has reviewed all diagnostic slides in rendering the frozen section diagnosis. This intraoperative consultation should be interpreted as a preliminary diagnosis pending review of the entire specimen and special studies, if any. ? Pathology Frozen Section Report Frozen Section Report G - posterior deep superior ??for frozen section ? Negative for malignancy . Frozen Section Report H - posterior deep inferior ??for frozen section ? Negative for malignancy I - Anterior ventral tongue for frozen section ? Negative for malignancy J - Anterior tonsil pillar: tongue ??for frozen section ? Negative for malignancy K - FOM mucosa posterior for frozen section ?Squamous cell carcinoma L - FOM mucosa anterior: tongue ??for frozen section ? Negative for malignancy 10/30/06 ??Verified by: ??Devonte Pereira MD, Pathologist The attending pathologist whose electronic signature appears on this report has reviewed all diagnostic slides in rendering the frozen section diagnosis. This intraoperative consultation should be interpreted as a preliminary diagnosis pending review of the entire specimen and special studies, if any. ? Pathology Frozen Section Report Frozen Section Report B - Anterior deep tongue. ??for frozen section ?Negative for malignancy C - Branch of lingual nerve. ??for frozen section ?Negative for malignancy D - Deep margin medial. ??for frozen section ?Negative for malignancy E - Proximal lingual nerve. ??for frozen section ? Negative for malignancy 10/30/06 ??Verified by: ??Devonte Pereira MD, Pathologist The attending pathologist whose electronic signature appears on this report has reviewed all diagnostic slides in rendering the frozen section diagnosis. This intraoperative consultation should be interpreted as a preliminary diagnosis pending review of the entire specimen and special studies, if any. ? Pathology Frozen Section Report Frozen Section Report A - Level 3 Lymph node: neck ?? for frozen section ?Metastatic squamous cell carcinoma 10/30/06 ??Verified by: ??Devonte Pereira MD, Pathologist The attending pathologist whose electronic signature appears on this report has reviewed all diagnostic slides in rendering the frozen section diagnosis. This intraoperative consultation should be interpreted as a preliminary diagnosis pending review of the entire specimen and special studies, if any. KADE MANE 10/30/2006 11:4 9 AM EDT Roberth Lee MD PATHOLOGY/CYTOLOGY ORDERABLES KADE MANE documented in this encounter Visit Diagnoses Not on filedocumented in this encounter Care Teams Home Appliance Technician Relationship Specialty Start Date End Date Dev, Tita Butt APRN [address] [place] [address] PCP - General Internal Medicine 05/15/22 documented as of this encounter
--- OUTSIDE RECORDS SUMMARY | 2023-12-08 20:09 | XMS_ITS | Encounter Summary ---
Author Organization [facility] Address [address] [place] [address] Care Team Providers Care Stock Trader Name Role Phone Unavailable Primary Care Provider Unavailabl e Encounter Details Date Type Department Care Team (Late st Contact Info) Description 10/23/2014 Results Only [facility] [phone] Marck Brody F, DO [address] [place], [place] [id number] Social History Tobacco Use Types Packs/Day Years [...] Diagnosis Comments PAP TEST- RESULT ONLY Routine 10/23/2014 0:00 EDT documented in this encounter Results * PAP TEST- RESULT ONLY (10/23/2014 0:00 EDT) Pathology Report: CYTOPATHOLOGY REPORT Reports generated via electronic interface contain original data; however they are lacking the format of the original report. Caution should be taken when reading/interpreti ng unformatted reports. Name: ? THERESA HENLEY ? Accession #: ? [id number] ? : ? 1970 (Age: 44) ??F ?Collect Date: ? 10/23/2014 ? Location: ? [facility] ? Receive Date: ? 10/26/2014 ? Provider: MARCK BRODY DO Copy to: ? Final Report SPECIMEN ADEQUACY ? Satisfactory for Evaluation - transformation zone component absent GENERAL CATEGORIZATION ? Negative for Intraepithelial Lesion or Malignancy ?? Specimen/Source: ??Pap Test, Cervix/Endocervix, ThinPrep Imaging System with manual evaluation Document reviewed and electronically signed by: ? SHILPA Shine(ASCP) ? Report ??Date: 10/29/2014 11:08 HPV with Pap Test ? Date Ordered: ? 10/29/2014 ? Status: ?? Signed Out ?Date Complete: ? 11/02/2014 ? By: ??System Interface ? Date Reported: ? 11/02/2014 ? Interpretation RESULT: Negative for HPV. No E6 or E7 mRNA is detected from HPV types 16,18,31,33,35, 39,45,51,52,56,58, 59,66, and 68 by stripper machine operator mediated amplification. Comments Document reviewed and electronically signed by: ? System Interface ? Report date: 11/02/2014 By the signature above, the attending physician certifies that he/she has personally conducted a gross and/or microscopic examination of the described specimens and rendered or confirmed the above diagnosis. End of Report [facility] 10/23/2014 10/26/2014 Marck Brody DO PATHOLOGY ORDERABL ES [facility] [address] [place] [address] documented in this encounter Visit Diagnoses Not on filedocumented in this encounter
--- OUTSIDE RECORDS SUMMARY | 2023-12-08 20:09 | XMS_ITS | Clinical Summary ---
Author Organization [facility] Address [address] [place] [address] Care Team Providers Care Merchandising Assistant Name Role Phone Francisco Betancur MD Primary Care Provider Unavailab le Social History Tobacco Use Types Packs/Day Years Used Date Smoking Tobacco: Never Assessed Sex and Gender Information Value Date Recorded Sex Assigned at Not on file Gender Identity Not on file Sexual Orientation Not on file Plan of Treatment Health Maintenance Due Date Last Done Comments Hepatitis C Screen 1970 Hepatitis B Vaccine (1 of 3 - 19+ 3-dose series) 06/30 COVID-19 Vaccine ( season) 2023 Care Teams Merchandising Assistant Relationship Specialty Start Date End Date Francisco Betancur MD PCP - General 02/01/15
[2023-12-08 20:12] VITALS: O2SAT 97
--- NOTE | 2023-12-08 20:15 | DI.RAD_ITS ---
Exam(s) XR CHEST 2V PA LATERAL EXAM: XR CHEST 2V PA LATERAL CLINICAL HISTORY: productive cough. TECHNIQUE: 2D digital imaging was performed. COMPARISON: CR XR CHEST 2V PA LATERAL from 08/20/2023 FINDINGS: 2 views: Heart size is normal. The mediastinum is not widened. Lungs are clear. No infiltrates nor pleural effusions. IMPRESSION: No acute pulmonary findings. DATA REPOSITORY: RADIATION DOSE DELIVERED:
[2023-12-08] MEDS: Albuterol/Ipratropium 3 ML UPD VIAL 9 ML UPD (20:26)
[2023-12-08] MEDS: Dexamethasone 10 MG/ML VIAL IVP (20:26)
[2023-12-08] MEDS: Normal Saline 1,000 ML 1000 ML IV (20:26)
--- NOTE | 2023-12-08 20:29 | ED.GENADUL_ITS ---
Discharge Plan Disposition Patient Disposition: Home Condition: Improving Discharge Details Chief Complaint: RespSymp Clinical Impression: Cough, Hypoxia Primary Care Provider: Tita Méndez ED Provider: Thong Ashraf Home Meds and New Rx's Prescriptions: No Action hydrocortisone 2.5 % cream 1 applic topical BID PRN (Reason: skin irritation) Qty: 30 0RF triamcinolone acetonide 0.1 % ointment 1 applic topical BID Qty: 30 0RF albuterol sulfate 1.25 mg/3 mL solution for nebulization 1.25 mg inhalation QID PRN (Reason: shortness of breath or wheezing) Qty: 90 1RF (DME) nebulizer and compressor Device See Rx Instructions .Route Qty: 1 0RF Rx Instructions: As directed (DME) nebulizers [VixOne Nebulizer-Adult Mask] Misc See Rx Instructions .Route Qty: 1 3RF Rx Instructions: As directed albuterol sulfate 90 mcg/actuation HFA aerosol inhaler 2 inh inhalation Q6H PRN (Reason: shortness of breath or wheezing) Qty: 18 4RF ibuprofen 100 mg/5 mL suspension 100 mg PO Q4H levothyroxine [Synthroid] 100 mcg tablet 88 mcg PO DAILY Discharge Instructions Instructions: Cough, Adult ED Additional Instructions: Please use your albuterol pump/nebulizer at home. Please follow-up with your primary care physician. Return to the emergency department for any worsening symptoms HPI General Date/Time Provider Initiated Documentation: 12/08/23 20:10 . 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 Related Data Home Medications ?Medication ?Instructions ?Recorded ?Confirmed nebulizer and compressor #1 ea 02/27/22 12/08/23 nebulizers (VixOne Nebulizer-Adult #1 ea 03/06/22 12/08/23 Mask) albuterol sulfate 90 mcg/actuation 2 inh inhalation Q6H PRN shortness 05/04/22 12/08/23 aerosol inhaler of breath or wheezing #18 grams ibuprofen 100 mg/5 mL oral 100 mg PO Q4H 09/13/22 12/08/23 suspension hydrocortisone 2.5 % topical cream 1 applic topical BID PRN skin 11/07/22 12/08/23 irritation #30 grams triamcinolone acetonide 0.1 % 1 applic topical BID skin 11/07/22 12/08/23 topical ointment irritation #30 grams albuterol sulfate 1.25 mg/3 mL 1.25 mg (3 mL) inhalation QID PRN 11/12/23 12/08/23 solution for nebulization shortness of breath or wheezing #90 mL levothyroxine 100 mcg tablet 88 mcg PO DAILY 11/12/23 12/08/23 (Synthroid) Previous Rx's ?Medication ?Instructions ?Recorded nebulizer and compressor #1 ea 02/27/22 nebulizers (VixOne Nebulizer-Adult #1 ea 03/06/22 Mask) albuterol sulfate 90 mcg/actuation 2 inh inhalation Q6H PRN shortness 05/04/22 aerosol inhaler of breath or wheezing #18 grams hydrocortisone 2.5 % topical cream 1 applic topical BID PRN skin 11/07/22 irritation #30 grams triamcinolone acetonide 0.1 % 1 applic topical BID skin 11/07/22 topical ointment irritation #30 grams albuterol sulfate 1.25 mg/3 mL 1.25 mg (3 mL) inhalation QID PRN 11/12/23 solution for nebulization shortness of breath or wheezing #90 mL Allergies Allergy/AdvReac Type Severity Reaction Status Date / Time apple Allergy Itching Verified 12/08/23 20:07 birch Allergy Wheezing Verified 12/08/23 20:07 peanut Allergy Itching Verified 12/08/23 20:07 acetaminophen AdvReac Severe Wheezing Verified 12/08/23 20:07 benzocaine AdvReac irritant Verified 12/08/23 20:07 General Stated Complaint: RespSymp NORA: 3 Exam Narrative Exam Narrative: Alert interactive resting comfortably Moist mucous membranes tongue secretions Evidence of remote head and neck radiation Lungs clear bilaterally no wheezes rales or rhonchi Normal heart sounds no murmurs rubs or gallops Abdomen soft nontender nondistended No peripheral edema Alert interactive moving all extremities without deficit Course Vital Signs Vital signs: Vital Signs Temperature 36.8 C 12/08/23 20:02 Pulse 113 H 12/08/23 20:02 Respiratory Rate 18 12/08/23 20:02 Blood Pressure 143/103 H 12/08/23 20:02 Pulse Oximetry 87 L 12/08/23 20:02 Temperature 36.8 C 12/08/23 20:02 Temperature Source Oral 12/08/23 20:02 Pulse 113 H 12/08/23 20:02 Respiratory Rate 18 12/08/23 20:02 Respiratory Effort Short of Breath 12/08/23 20:12 Blood Pressure 143/103 H 12/08/23 20:02 Pulse Oximetry 97 12/08/23 20:12 Oxygen Delivery Method Nasal Cannula 12/08/23 20:12 Oxygen Flow Rate 0 12/08/23 20:02 Pain Level 0 12/08/23 20:02 Comment pt doesn't usually need o2 12/08/23 20:02 Lab/Test Results Lab/Test Results: 12/08/23 20:17 Blood Blood Culture - Pending 12/08/23 20:17 Blood Blood Culture - Pending Medical Decision Making 53-year-old female history of remote squamous cell carcinoma of tongue s/p radiation 17 years ago presents with increased productive cough over the last couple of days, no to be tachycardic and hypoxic, afebrile, speaking full sentences tolerating secretions lungs clear bilaterally heart rate greatly improved after placed on nasal cannula 2 to 3 L with now oxygenation in the mid 90s. Initially hypoxic to 87% on room air. High clinical suspicion for pneumonia lower suspicion for PE ACS CHF pneumothorax or intra-abdominal pathology lower suspicion for aortic pathology. Screening labs blood cultures steroids nebs chest x-ray close reassessment 23: 05 resting fully no acute distress. Feeling much better after nebs and steroid. Heart rate now in the 90s, oxygen saturation 95% on room air, speaking full sentences. X-ray compared to x-ray from 3 months ago largely unchanged has some hilar prominence on the right unchanged. Given afebrile state no white count and improvement after nebs lower suspicion for bacterial pneumonia; patient has nebulized albuterol and albuterol pump at home. Given home care instructions and return precautions Quality:SDOH Health Related Social Needs: No Data to Display PFSH All Active Problems (Updated 12/08/23 @ 23:06 by Thong Ashraf MD) Hypoxia (Acute) Cough (Acute) Underweight due to inadequate caloric intake (Acute) Osteoradionecrosis of mandible (Acute) [facility] [place] 09/14/22. -hb Partial edentulism (Acute) 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 [place]. -hb S/P reconstruction procedure [facility] [place] 08/21/22 Fibular free flap reconstruction with implants.-hb History of radical neck surgery Family History Mother Essential hypertension Hyperlipidemia Father No problems noted. 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
[2023-12-08 20:52] LABS: COVID-19 PCR Negative (Negative); Influenza A PCR Negative (Negative); Influenza B PCR Negative (Negative); RSV PCR Negative (Negative)
[2023-12-08 20:54] LABS: Source Nasopharynx
[2023-12-08 21:00] LABS: Abs Immature Grans 0.02 10^3/uL (0.0-0.06); Absolute Basophil Count 0.06 10^3/uL (0.0-0.2); Absolute Eosinophil Count 0.69 10^3/uL (0.0-0.7); Absolute Lymphocyte Count 0.54 10^3/uL (1.2-3.4); Absolute Neutrophil Count 6.12 10^3/uL (1.2-6.7); Basophils % 0.8 %; Eosinophils % 8.9 %; HCT 41.3 % (36.0-46.0); HGB 14.2 g/dL (11.2-15.7); Immature Grans % 0.3 %; MCH 32.1 pg (27.0-33.0); MCHC 34.4 % (32.0-36.0); MCV 93 fL (80-95); MPV 8.7 fL (8.0-11.0); Monocytes % 3.9 %; Neutrophils % 79.1 %; Platelet Count 343 10^3/uL (130-400); RBC 4.42 10^6/uL (3.93-5.22); RDW 11.7 % (11.7-14.6); RDW-SD 40.6 fL; WBC 7.73 10^3/uL (4.4-10.8)
[2023-12-08 21:16] LABS: ALT 16 U/L (14-59); AST 22 U/L (15-37); Albumin 3.8 g/dL (3.4-5.0); Alkaline Phosphatase 90 U/L (46-116); Anion Gap 7.3 mmol/L (3-11); BUN 5 mg/dL (7-18); Bilirubin, Total 0.35 mg/dL (0.2-1.0); CO2 31.7 mmol/L (21.0-32.0); CREATININE 0.9 mg/dL (0.55-1.02); Calcium 10.1 mg/dL (8.5-10.1); Chloride 96 mmol/L (98-107); Estimated GFR 76.92 (mL/min/1.73m2); Glucose 111 mg/dL (74-106); Sodium 135 mmol/L (136-145); Total Protein 8.1 g/dL (6.4-8.2)
[2023-12-08 23:18] VITALS: BP 104/70; PULSE 91; RESP 16; TEMP 36.7; TEMP 37; O2SAT 94
--- NOTE | 2023-12-08 23:27 | DI.VRAD_ITS ---
PROCEDURE INFORMATION: Exam: XR Chest Exam date and time: 12/08/2023 9:18 PM Age: 53 years old Clinical indication: Patient HX: Productive cough TECHNIQUE: Imaging protocol: Radiologic exam of the chest. Views: 2 views. COMPARISON: CR XR CHEST 2V PA LATERAL 08/20/2023 3:30 PM FINDINGS: Tubes, catheters and devices: Left neck base surgical clips. Lungs: Emphysema without airspace consolidation. Mild central interstitial thickening. Pleural spaces: No pleural effusion. No pneumothorax. Heart/Mediastinum: Diminution of the cardiac silhouette in the setting of emphysema. Bones/joints: No acute fracture. IMPRESSION: 1. Emphysema without airspace consolidation. 2. Interstitial disease suggesting bronchitis, similar to prior. Dictated and Authenticated by: Annel Hoffman MD. Ordering:FARHEEN Benito MD
== END 2023-12-08 23:20 | disposition home or self-care (01) ==
PROVIDERS: Emergency Provider Emergency Medicine; PCP Nurse Practitioner Family
DX: R05.9 Cough, unspecified (principal); R09.02 Hypoxemia
CPT/HCPCS: 80053; 87040; 87637; 94640; 96361; 96374; 99284; 71046; 85025; J1100; J7620

== ENCOUNTER 2023-12-21 01:55 | Outpatient (CLI) | payer BC, SELFPAY | END 2023-12-21 01:56 | disposition home or self-care (01) | PROVIDERS: PCP Nurse Practitioner Family; Visit Provider Internal Medicine Endocrinology, Diabetes & Metabolism | DX: E03.9 Hypothyroidism, unspecified (principal); E55.9 Vitamin D deficiency, unspecified | CPT/HCPCS: 36415; 82306; 84443 ==

== ENCOUNTER 2024-02-22 01:03 | Outpatient (CLI) | payer BC, SELFPAY ==
[2024-02-22 10:47] LABS: TSH (W/Ref FT4) 0.25 uIU/mL (0.36-3.74)
[2024-02-22 11:03] LABS: FREE T4 1.16 ng/dL (0.76-1.46)
== END 2024-02-22 01:04 | disposition home or self-care (01) ==
LOC: LBO 01:03
PROVIDERS: PCP Nurse Practitioner Family; Visit Provider Internal Medicine Endocrinology, Diabetes & Metabolism
DX: E03.9 Hypothyroidism, unspecified (principal)
CPT/HCPCS: 36415; 84439; 84443

== ENCOUNTER 2024-03-21 10:41 | Emergency (ER) | payer OTHER, SELFPAY ==
[2024-03-21] VITALS (23 sets, daily range): BP systolic 102–116; BP diastolic 64–80; PULSE 71–112; RESP 12–18; TEMP 36.2–36.6; O2SAT 95–99
--- NOTE | 2024-03-21 10:30 | RT.EKG_ITS ---
APPROVED REPORT Exam: Resting ECG Reason for Exam: chest pain Patient Location: E HR:94 bpm ECG Measurements Heart Rate 94 AXIS [place] 127 P 85 QRSd 65 QRS 23 QT 342 T 53 QTc 422 Conclusion Sinus rhythm...normal P axis, V-rate 60- 99 Atrial premature complexes...SV complexes w/ short R-R intvls
--- NOTE | 2024-03-21 11:00 | DI.RAD_ITS ---
Exam(s) XR CHEST 2V PA LATERAL EXAM: XR CHEST 2V PA LATERAL CLINICAL HISTORY: Chest pain left, 2 weeks post aspiration. TECHNIQUE: 2D digital imaging was performed. COMPARISON: CR,XR XR CHEST 2V PA LATERAL from 12/08/2023 FINDINGS: 2 views: Heart size is normal. The mediastinum is not widened. Lungs are clear. No infiltrates nor pleural effusions. IMPRESSION: No acute pulmonary findings. DATA REPOSITORY: RADIATION DOSE DELIVERED:
[2024-03-21 11:19] LABS: Abs Immature Grans 0.01 10^3/uL (0.0-0.06); Absolute Basophil Count 0.03 10^3/uL (0.0-0.2); Absolute Eosinophil Count 0.15 10^3/uL (0.0-0.7); Absolute Lymphocyte Count 0.57 10^3/uL (1.2-3.4); Absolute Monocyte Count 0.16 10^3/uL (0.1-0.8); Absolute Neutrophil Count 2.41 10^3/uL (1.2-6.7); Basophils % 0.9 %; Eosinophils % 4.5 %; HCT 37.9 % (36.0-46.0); HGB 13.2 g/dL (11.2-15.7); Immature Grans % 0.3 %; Lymphocytes % 17.1 %; MCH 32.1 pg (27.0-33.0); MCHC 34.8 % (32.0-36.0); MCV 92 fL (80-95); MPV 9.1 fL (8.0-11.0); Monocytes % 4.8 %; Neutrophils % 72.4 %; Platelet Count 258 10^3/uL (130-400); RBC 4.11 10^6/uL (3.93-5.22); RDW-SD 40.9 fL; WBC 3.33 10^3/uL (4.4-10.8)
[2024-03-21 11:39] LABS: ALT 16 U/L (14-59); AST 20 U/L (15-37); Albumin 3.3 g/dL (3.4-5.0); Alkaline Phosphatase 69 U/L (46-116); Anion Gap 6.4 mmol/L (3-11); BUN 7 mg/dL (7-18); Bilirubin, Total 0.48 mg/dL (0.2-1.0); CO2 28.6 mmol/L (21.0-32.0); CREATININE 0.8 mg/dL (0.55-1.02); Calcium 9.3 mg/dL (8.5-10.1); Chloride 100 mmol/L (98-107); Glucose 115 mg/dL (74-106); Potassium 3.6 mmol/L (3.5-5.1); Sodium 135 mmol/L (136-145); Total Protein 7.3 g/dL (6.4-8.2)
[2024-03-21 11:40] LABS: Troponin I < 4 ng/L (<or=51)
--- NOTE | 2024-03-21 12:30 | DI.CT_ITS ---
Exam(s) CT CHEST PE CTA EXAM: CT CHEST PE CTA CLINICAL HISTORY: left chest pain. TECHNIQUE: Imaging Protocol: CT angiography of the chest was performed using pulmonary embolus yazan col. Multi planar reconstructions were performed. CONTRAST MATERIAL: Intravenous: Omnipaque 350 Contrast volume: 100 cc COMPARISON: CT CT CHEST PE CTA from 02/26/2022 FINDINGS: CHEST: PULMONARY ARTERIES: There are no intraluminal filling defects to suggest acute pulmonary emboli. LUNGS: There are no infiltrates nor evidence of pulmonary infarction.. There are no pleural effusions . MEDIASTINUM: There is no hilar nor mediastinal adenopathy. CARDIAC: Heart size is upper normal. There is no pericardial effusion.Caliber of the thoracic aorta is within normal limits. No evidence of dissection there is no significant shift of the interventricu lar septum. PARTIALLY VISUALIZED UPPERMOST ABDOMEN: No obvious findings OSSEOUS: No significant osseous lesions.There are subacute healing fractures of the right 6, 8th, 9th ribs now evident. Also healing fractures of the left superior 5th and 9th ribs. These fractures we re not evident on prior CT scan of 2021 IMPRESSION: 1. No evidence of acute pulmonary emboli. No evidence of pulmonary infarction. No infiltrates. No ominous pulmonary nodules. No pleural effusions. No evidence of aortic dissection. No pericardial effusion. 2. There are subacute fractures of the right 6, 8th, 9th ribs which were not evident on the prior CT scan of 02/26/2022. There is also a partially healed fracture of the left 5th rib and left 9th rib, also new since the 2021 study. RADIATION DOSE DELIVERED: 40.39mGy.cm Total DLP DATA REPOSITORY: All CT scans at this facility are submitted to the National Radiology Data Registry (NRDR) Dose Index Registry (DIR) with the [employer] (ACR). RADIATION OPTIMIZATION: All CT scans at this facility use at least one of these dose optimization te chniques: automated exposure control; mA and/or kV adjustment per patient size (includes targeted exa ms where dose is matched to clinical indication); or iterative reconstruction.
[2024-03-21 13:05] LABS: Troponin I < 4 ng/L (<or=51)
[2024-03-21] MEDS: Normal Saline - Diluent 50 ML VIAL IJ (13:07)
[2024-03-21] MEDS: Omnipaque 350 MG/ML 500 ML BTL-Imaging package 100 ML IJ (13:07)
--- NOTE | 2024-03-21 14:24 | W.ED.GENAD ---
Discharge Plan Disposition Patient Disposition: Home Condition: Stable Discharge Details Clinical Impression: Chest pain, Ribs, multiple fractures Primary Care Provider: Tita Méndez ED Provider: Darren Pinzon Home Meds and New Rx's Prescriptions: Continued hydrocortisone 2.5 % cream 1 applic topical BID PRN (Reason: skin irritation) Qty: 30 0RF triamcinolone acetonide 0.1 % ointment 1 applic topical BID Qty: 30 0RF albuterol sulfate 1.25 mg/3 mL solution for nebulization 1.25 mg inhalation QID PRN (Reason: shortness of breath or wheezing) Qty: 90 1RF (DME) nebulizer and compressor Device See Rx Instructions .Route Qty: 1 0RF Rx Instructions: As directed (DME) nebulizers [VixOne Nebulizer-Adult Mask] Misc See Rx Instructions .Route Qty: 1 3RF Rx Instructions: As directed albuterol sulfate 90 mcg/actuation HFA aerosol inhaler 2 inh inhalation Q6H PRN (Reason: shortness of breath or wheezing) Qty: 18 4RF ibuprofen 100 mg/5 mL suspension 100 mg PO Q4H No Action lidocaine 4 % adhesive patch,medicated 1 patch topical DAILY PRN levothyroxine [Synthroid] 100 mcg tablet 100 mcg PO DAILY Patient Comments: Taking 100 mg daily, 1/2 a pill on Saturdays. Discharge Instructions Instructions: How to Use an Incentive Spirometer, Rib fractures in adults, Chest Pain, Adult ED Additional Instructions: Please contact your primary care physician to arrange follow-up. Please avoid strenuous activities and allow for plenty of rest. Return to the ER immediately for any worsening or new concerning symptoms. Referrals: Tita Méndez NP [Primary Care Provider] - Discharge Data Discharge Date/Time-TO BE ENTERED AT DEPARTURE: 03/21/24 15:14 HPI General Date/Time Provider Initiated Documentation: 03/21/24 11:03. Limitations to Documentation: no limitations. Information obtained by: patient and family. HPI Narrative: 53yo female with history of squamous cell carcinoma, status post resection and radiation therapy, dysphagia, here with chest pain. Patient notes approximately 2 weeks ago she may have aspirated food. She was initially feeling better but then developed left-sided chest pain. Pain seems positional, localized to left chest into the left shoulder and substernal. Pain developed this morning and has been present since early this AM. Related Data Home Medications ?Medication ?Instructions ?Recorded ?Confirmed nebulizer and compressor #1 ea 02/27/22 03/21/24 nebulizers (VixOne Nebulizer-Adult #1 ea 03/06/22 03/21/24 Mask) albuterol sulfate 90 mcg/actuation 2 inh inhalation Q6H PRN shortness 05/04/22 03/21/24 aerosol inhaler of breath or wheezing #18 grams ibuprofen 100 mg/5 mL oral 100 mg PO Q4H 09/13/22 03/21/24 suspension hydrocortisone 2.5 % topical cream 1 applic topical BID PRN skin 11/07/22 03/21/24 irritation #30 grams triamcinolone acetonide 0.1 % 1 applic topical BID skin 11/07/22 03/21/24 topical ointment irritation #30 grams albuterol sulfate 1.25 mg/3 mL 1.25 mg (3 mL) inhalation QID PRN 11/12/23 03/21/24 solution for nebulization shortness of breath or wheezing #90 mL levothyroxine 100 mcg tablet 100 mcg PO DAILY 03/24/24 03/24/24 (Synthroid) lidocaine 4 % topical patch 1 patch topical DAILY PRN 03/24/24 03/24/24 Previous Rx's ?Medication ?Instructions ?Recorded nebulizer and compressor #1 ea 02/27/22 nebulizers (VixOne Nebulizer-Adult #1 ea 03/06/22 Mask) albuterol sulfate 90 mcg/actuation 2 inh inhalation Q6H PRN shortness 05/04/22 aerosol inhaler of breath or wheezing #18 grams hydrocortisone 2.5 % topical cream 1 applic topical BID PRN skin 11/07/22 irritation #30 grams triamcinolone acetonide 0.1 % 1 applic topical BID skin 11/07/22 topical ointment irritation #30 grams albuterol sulfate 1.25 mg/3 mL 1.25 mg (3 mL) inhalation QID PRN 11/12/23 solution for nebulization shortness of breath or wheezing #90 mL Allergies Allergy/AdvReac Type Severity Reaction Status Date / Time apple Allergy Itching Verified 03/24/24 12:59 birch Allergy Wheezing Verified 03/24/24 12:59 peanut Allergy Itching Verified 03/24/24 12:59 acetaminophen AdvReac Severe Wheezing Verified 03/24/24 12:59 benzocaine AdvReac irritant Verified 03/24/24 12:59 General Stated Complaint: Chest Pain NORA: 2 Review of Systems All systems reviewed & are unremarkable except as noted in HPI and below Constitutional Constitutional: Denies fever(s) Cardiovascular Cardiovascular: Reports as per HPI and Reports chest pain Exam Const General: cooperative and no acute distress HENMT Mouth: moist mucous membranes Eyes Conjunctivae: normal conjunctivae Sclera: normal sclerae Resp Auscultation: clear to auscultation bilaterally, no rales, no rhonchi and no wheezes Cardio Rate: regular rate and not tachycardic Rhythm: regular rhythm GI Palpation: soft, not firm, no guarding, no masses, not rigid and nontender Neuro General: patient alert, patient awake, patient oriented x3 and tone normal Extrem General: no calf tenderness and no edema Psych Appearance: grossly normal Mental Status: mental status grossly normal Course Vital Signs Vital signs: Vital Signs Temperature 36.2 C L 03/21/24 10:54 Pulse 101 H 03/21/24 10:54 Respiratory Rate 12 03/21/24 10:54 Blood Pressure 110/64 03/21/24 10:54 Pulse Oximetry 99 03/21/24 10:54 Temperature 36.2 C L 03/21/24 10:54 Temperature Source Oral 03/21/24 10:54 Pulse 101 H 03/21/24 10:54 Pulse 84 03/21/24 11:20 Respiratory Rate 12 03/21/24 10:54 Blood Pressure 110/64 03/21/24 10:54 Blood Pressure Position Sitting 03/21/24 10:54 Pulse Oximetry 99 03/21/24 10:54 Oxygen Delivery Method Room Air 03/21/24 10:54 Oxygen Flow Rate 0 03/21/24 10:54 Pain Level 7 03/21/24 10:54 Lab/Test Results Lab/Test Results: Laboratory Tests Range/Units 03/21/24 03/21/24 11:10 12:35 WBC (4.4-10.8) 10^3/uL 3.33 L RBC (3.93-5.22) 10^6/uL 4.11 Hgb (11.2-15.7) g/dL 13.2 Hct (36.0-46.0) % 37.9 MCV (80-95) fL 92 MCH (27.0-33.0) pg 32.1 MCHC (32.0-36.0) % 34.8 RDW (11.7-14.6) % 12.0 Plt Count (130-400) 10^3/uL 258 MPV (8.0-11.0) fL 9.1 Immature Gran % % 0.3 Neutrophils % % 72.4 Lymphocytes % % 17.1 Monocytes % % 4.8 Eosinophils % % 4.5 Basophils % % 0.9 Nucleated RBC % (0.0-0.3) % 0.0 Absolute Neutrophils (1.2-6.7) 10^3/uL 2.41 Absolute Lymphocytes (1.2-3.4) 10^3/uL 0.57 L Absolute Monocytes (0.1-0.8) 10^3/uL 0.16 Absolute Eosinophils (0.0-0.7) 10^3/uL 0.15 Absolute Basophils (0.0-0.2) 10^3/uL 0.03 Sodium (136-145) mmol/L 135 L Potassium (3.5-5.1) mmol/L 3.6 Chloride (98-107) mmol/L 100 Carbon Dioxide (21.0-32.0) mmol/L 28.6 Anion Gap (3-11) mmol/L 6.4 BUN (7-18) mg/dL 7 Creatinine (0.55-1.02) mg/dL 0.8 Est GFR (CKD-EPI 2020) (mL/min/1.73m2) 88.60 Glucose (74-106) mg/dL 115 H Calcium (8.5-10.1) mg/dL 9.3 Total Bilirubin (0.2-1.0) mg/dL 0.48 AST (15-37) U/L 20 ALT (14-59) U/L 16 Alkaline Phosphatase (46-116) U/L 69 Troponin I (<or=51) ng/L < 4 < 4 Total Protein (6.4-8.2) g/dL 7.3 Albumin (3.4-5.0) g/dL 3.3 L Medical Decision Making 53yo female with history of squamous cell carcinoma, status post resection and radiation therapy, chronic dysphagia, here with chest pain 2 weeks after potential aspiration event. Patient is saturating well in no respiratory distress. She is mildly tachycardic and normotensive on arrival. Afebrile. Concern for potential aspiration pneumonia versus consider acute life-threatening pulmonary embolism versus less likely aortic dissection or ACS. EKG was reviewed and interpreted by me: Please report, nondiagnostic. Chest x-ray was interpreted by radiology:No acute pulmonary findings. Plan to proceed to CT of the chest. 1424--CT chest was interpreted by radiology: 1. No evidence of acute pulmonary emboli. No evidence of pulmonary infarction. No infiltrates. No ominous pulmonary nodules. No pleural effusions. No evidence of aortic dissection. No pericardial effusion. 2. There are subacute fractures of the right 6, 8th, 9th ribs which were not evident on the prior CT scan of 02/26/2022. There is also a partially healed fracture of the left 5th rib and left 9th rib, also new since the 2021 study. initial and delta troponin negative. Patient reassessed and has remained stable. I discussed results with the patient. She does note prior coughing spells they may have contributed to fractures. No trauma. Plan for discharge with close outpatient follow-up with PCP. Usual and customary discharge instructions were reviewed. Lab Data Lab results reviewed: Yes I reviewed the patient's lab results. Labs: Laboratory Tests Range/Units 03/21/24 03/21/24 11:10 12:35 WBC (4.4-10.8) 10^3/uL 3.33 L RBC (3.93-5.22) 10^6/uL 4.11 Hgb (11.2-15.7) g/dL 13.2 Hct (36.0-46.0) % 37.9 MCV (80-95) fL 92 MCH (27.0-33.0) pg 32.1 MCHC (32.0-36.0) % 34.8 RDW (11.7-14.6) % 12.0 Plt Count (130-400) 10^3/uL 258 MPV (8.0-11.0) fL 9.1 Immature Gran % % 0.3 Neutrophils % % 72.4 Lymphocytes % % 17.1 Monocytes % % 4.8 Eosinophils % % 4.5 Basophils % % 0.9 Nucleated RBC % (0.0-0.3) % 0.0 Absolute Neutrophils (1.2-6.7) 10^3/uL 2.41 Absolute Lymphocytes (1.2-3.4) 10^3/uL 0.57 L Absolute Monocytes (0.1-0.8) 10^3/uL 0.16 Absolute Eosinophils (0.0-0.7) 10^3/uL 0.15 Absolute Basophils (0.0-0.2) 10^3/uL 0.03 Sodium (136-145) mmol/L 135 L Potassium (3.5-5.1) mmol/L 3.6 Chloride (98-107) mmol/L 100 Carbon Dioxide (21.0-32.0) mmol/L 28.6 Anion Gap (3-11) mmol/L 6.4 BUN (7-18) mg/dL 7 Creatinine (0.55-1.02) mg/dL 0.8 Est GFR (CKD-EPI 2020) (mL/min/1.73m2) 88.60 Glucose (74-106) mg/dL 115 H Calcium (8.5-10.1) mg/dL 9.3 Total Bilirubin (0.2-1.0) mg/dL 0.48 AST (15-37) U/L 20 ALT (14-59) U/L 16 Alkaline Phosphatase (46-116) U/L 69 Troponin I (<or=51) ng/L < 4 < 4 Total Protein (6.4-8.2) g/dL 7.3 Albumin (3.4-5.0) g/dL 3.3 L Quality:SDOH Health Related Social Needs: No Data to Display PFSH All Active Problems (Updated 03/24/24 @ 13:47 by Tita Méndez NP) Pathological fracture (Acute) Leukopenia (Acute) Ribs, multiple fractures (Acute) Chest pain (Acute) Acquired lymphedema (Acute) head and neck, secondary Underweight due to inadequate caloric intake (Acute) Osteoradionecrosis of mandible (Acute) [facility] [place] 09/14/22. 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 -hb S/P reconstruction procedure [facility] [place] 08/21/22 Fibular free flap reconstruction with implants.-hb History of radical neck surgery Family History Mother Essential hypertension Hyperlipidemia Father No problems noted. 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
[2024-03-21] MEDS: Lidocaine 5% Patch 1 PATCH TP (14:53)
--- NOTE | 2024-03-21 15:11 | NUR.NOTE ---
Nursing Note:Pt provided with incentive spirometer and instructions on use per Dr. Pinzon.
== END 2024-03-21 15:14 | disposition home or self-care (01) ==
PROVIDERS: Emergency Provider Student in an Organized Health Care Education/Training Program; PCP Nurse Practitioner Family
DX: S22.41XA Multiple fractures of ribs, right side, initial encounter for closed fracture (principal); R07.9 Chest pain, unspecified; Z93.1 Gastrostomy status; X58.XXXA Exposure to other specified factors, initial encounter
CPT/HCPCS: 36415; 71275; 80053; 93005; 99285; 71046; 84484; 85025; 93010; 99284

== ENCOUNTER 2024-03-24 15:30 | Outpatient (CLI) | payer OTHER, SELFPAY ==
[2024-03-24 14:59] LABS: Absolute Basophil Count 0.05 10^3/uL (0.0-0.2); Absolute Eosinophil Count 0.14 10^3/uL (0.0-0.7); Absolute Lymphocyte Count 0.57 10^3/uL (1.2-3.4); Absolute Monocyte Count 0.15 10^3/uL (0.1-0.8); Absolute Neutrophil Count 2.38 10^3/uL (1.2-6.7); Basophils % 1.5 %; Eosinophils % 4.3 %; HCT 40.6 % (36.0-46.0); HGB 13.7 g/dL (11.2-15.7); Lymphocytes % 17.3 %; MCH 31.7 pg (27.0-33.0); MCHC 33.7 % (32.0-36.0); MCV 94 fL (80-95); MPV 9.1 fL (8.0-11.0); Monocytes % 4.6 %; Neutrophils % 72.3 %; Platelet Count 292 10^3/uL (130-400); RBC 4.32 10^6/uL (3.93-5.22); RDW 11.9 % (11.7-14.6); RDW-SD 41.6 fL; WBC 3.29 10^3/uL (4.4-10.8)
[2024-03-25 12:38] LABS: Albumin 60.8 % (55.8-66.1); Albumin g/dL 4.6 g/dL (3.6-5.2); Total Protein 7.5 g/dL (6.3-8.2)
== END 2024-03-24 15:31 | disposition home or self-care (01) ==
LOC: LBO 15:30
PROVIDERS: PCP Nurse Practitioner Family; Visit Provider Nurse Practitioner Family
DX: D72.819 Decreased white blood cell count, unspecified (principal); M84.40XA Pathological fracture, unspecified site, initial encounter for fracture
CPT/HCPCS: 36415; 84165; 85025

== ENCOUNTER 2024-03-27 02:48 | Outpatient (CLI) | payer OTHER, SELFPAY ==
--- NOTE | 2024-03-27 07:00 | DI.DEXA_ITS ---
Exam(s) XR DEXA BONE DENSITY W/WO KRYSTA EXAM: XR DEXA BONE DENSITY W/WO KRYSTA CLINICAL HISTORY: screening FOR OSTEOPOROSIS IN POSTMENOPAUSAL STATUS,Z78.0 TECHNIQUE: COMPARISON: No exams were available for comparison FINDINGS: Lateral Spine Image: Unremarkable. No compression deformities identified. Left hip: Total T-Score: -2.2 Total Z-Score: -1.7 T- and Z-scores: The findings are consistent with an overall diagnosis of osteopenia. There is osteo porosis in the femoral neck with a T-score of -3.0. Lumbar Spine: Total T-Score: -3.1 Total Z-Score: -2.2 T- and Z-scores: Findings are consistent with osteoporosis. 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
== END 2024-03-27 03:08 ==
LOC: DI 02:48
PROVIDERS: PCP Nurse Practitioner Family; Visit Provider Nurse Practitioner Family
DX: Z78.0 Asymptomatic menopausal state (principal); Z13.820 Encounter for screening for osteoporosis
CPT/HCPCS: 77080

== ENCOUNTER 2024-05-07 02:37 | Outpatient (CLI) | payer OTHER, SELFPAY ==
[2024-05-07 15:53] LABS: Bilirubin Negative (Negative); Blood Negative (Negative); Clarity Clear (Clear); Glucose Negative (Negative); Ketones Negative (Negative); Leukocyte Esterase Negative (Negative); Nitrite Negative (Negative); Urobilinogen 0.2 mg/dL (Up to 0.2); pH 6.5 (5-8)
== END 2024-05-07 02:38 | disposition home or self-care (01) ==
LOC: LBO 02:37
PROVIDERS: PCP Nurse Practitioner Family; Visit Provider Nurse Practitioner Family
DX: R30.0 Dysuria (principal)
CPT/HCPCS: 81003

== ENCOUNTER 2024-07-10 00:59 | Outpatient (CLI) | payer OTHER, SELFPAY ==
--- NOTE | 2024-07-10 05:54 | ETT_ITS ---
APPROVED REPORT Exam: Exercise Treadmill Patient Location: Out-Patient Room/Bed: Stress Nurse: Beba Vela RN Ordering Provider:KIZZY BORJAS, Contact Number: BMI: 20.11 Baseline Rhythm: Sinus Rhythm Comment: PAC's Indications: Irregular heart beat, sensation of chest pressure Medical History Medical History: Hypothyroidism, HLD Cardiac Medications: Albuterol sulfate, levothyroxine Allergies: Apple, birch, peanut, acetaminophen, benzocaine Cardiac Risk Factors: Family hx, HLD Previous Cardiac Procedures: None Pretest Chest Pain Characteristics: None Exercise History: Physically active Physical Disabilities: None Lung Sounds: Clear to auscultation Heart Sounds: Regular Stress Test Details Test: Exercise stress testing was performed using a Mushtaq protocol. Rest Stress HR Resting HR Supine: 69 bpm Max Heart Rate (APMHR): 167 bpm Resting HR Standin bpm Target HR (85% APMHR): 142 bpm Max HR Achieved: 146 bpm % of APMHR: 87 Recovery HR: 81 bpm HR response to stress: Normal HR response to stress BP Resting BP Supine: 108/84 mmHg Resting BP Standin/78 mmHg Max BP: 128/75 mmHg Recovery BP: 112/84 mmHg BP response to stress: Normal blood pressure response to stress. ECG Resting ECG: Sinus Rhythm Ectopy: Occasional PAC's Stress ECG: Sinus Tachycardia ST Change: No significant ST segment changes noted Arrhythmia: Occasional PAC's Recovery ECG: Sinus Rhythm Recovery ST Change: No significant ST segment changes noted Recovery Arrhythmia: Occasional PAC's Clinical Reason for Termination: Target HR Achieved, Fatigue Stress Symptoms: None Exercise duration: 06 min38 sec Highest Stage Reached: Stage 2: 2.5 mph at 12% grade. Exercise capacity: 8.03 METs Angina Score: None Wilson Treadmill Score: 6.6 Rate Pressure Product: [id number] Stress ECG Conclusion 1. Resting electrocardiogram was normal 2. Patient exercised on the Mushtaq protocol completed workload of 8 METS 3. Normal heart rate and blood pressure response to exercise. The patient achieved 87% of maximal pr edicted heart rate for age 4. There was no electrocardiographic evidence of myocardial ischemia 5. Atrial premature beats were noted Wilson Treadmill Score is 6.6 which is Low risk. Stress Test Summary STAGE Time (mins) Speed (mph) Grade (%) HR BP SpO2 SYMPTOMS METS Supine 69 108/84 97% Standing 82 106/78 1 3 1.7 10 110 122/64 99% 4.5 2 6 2.5 12 130 132/60 7 3 9 3.4 14 145 10 1 min recovery 126 120/68 99% 3 min recovery 78 128/75 6 min recovery 81 112/84 98%
== END 2024-07-10 01:19 ==
LOC: DI 00:59
PROVIDERS: PCP Nurse Practitioner Family; Visit Provider Internal Medicine Cardiovascular Disease
DX: I49.9 Cardiac arrhythmia, unspecified (principal); R07.89 Other chest pain
CPT/HCPCS: 93017

== ENCOUNTER 2024-07-11 00:51 | Outpatient (CLI) | payer OTHER, SELFPAY ==
[2024-07-11 13:07] LABS: Abs Immature Grans 0.01 10^3/uL (0.0-0.06); Absolute Basophil Count 0.05 10^3/uL (0.0-0.2); Absolute Eosinophil Count 0.23 10^3/uL (0.0-0.7); Absolute Lymphocyte Count 0.52 10^3/uL (1.2-3.4); Absolute Monocyte Count 0.37 10^3/uL (0.1-0.8); Absolute Neutrophil Count 3.25 10^3/uL (1.2-6.7); Basophils % 1.1 %; Eosinophils % 5.2 %; HGB 14.6 g/dL (11.2-15.7); Immature Grans % 0.2 %; Lymphocytes % 11.7 %; MCH 34.4 pg (27.0-33.0); MCV 101 fL (80-95); MPV 9.7 fL (8.0-11.0); Monocytes % 8.4 %; Neutrophils % 73.4 %; Platelet Count 236 10^3/uL (130-400); RBC 4.25 10^6/uL (3.93-5.22); RDW 11.9 % (11.7-14.6); RDW-SD 44.8 fL; WBC 4.43 10^3/uL (4.4-10.8)
[2024-07-11 13:54] LABS: Anion Gap 5.6 mmol/L (3-11); BUN 16 mg/dL (7-18); CO2 32.4 mmol/L (21.0-32.0); CREATININE 0.7 mg/dL (0.55-1.02); Calcium 9.5 mg/dL (8.5-10.1); Chloride 102 mmol/L (98-107); Estimated GFR 103.35 (mL/min/1.73m2); Glucose 77 mg/dL (74-106); Sodium 140 mmol/L (136-145); TSH (W/Ref FT4) 4.97 uIU/mL (0.36-3.74); Vitamin B12 575 pg/mL (193-986); Vitamin D 25 Total 42 ng/mL (30-100)
[2024-07-11 14:14] LABS: FREE T4 0.96 ng/dL (0.76-1.46)
== END 2024-07-11 00:52 | disposition home or self-care (01) ==
PROVIDERS: PCP Nurse Practitioner Family; Visit Provider Internal Medicine Endocrinology, Diabetes & Metabolism
DX: E03.9 Hypothyroidism, unspecified (principal); D70.8 Other neutropenia
CPT/HCPCS: 36415; 80048; 82306; 82607; 84439; 84443; 85025

== ENCOUNTER 2024-09-11 01:01 | Outpatient (CLI) | payer OTHER, SELFPAY ==
[2024-09-11 15:21] LABS: TSH (W/Ref FT4) 2.34 uIU/mL (0.36-3.74)
== END 2024-09-11 01:02 | disposition home or self-care (01) ==
PROVIDERS: PCP Nurse Practitioner Family; Visit Provider Internal Medicine Endocrinology, Diabetes & Metabolism
DX: E03.9 Hypothyroidism, unspecified (principal)
CPT/HCPCS: 36415; 84443

== ENCOUNTER 2024-11-14 15:11 | Outpatient (CLI) | payer OTHER, SELFPAY ==
[2024-11-14 10:13] LABS: TSH (W/Ref FT4) 1.56 uIU/mL (0.36-3.74)
== END 2024-11-14 15:12 | disposition home or self-care (01) ==
LOC: LBO 15:11
PROVIDERS: PCP Nurse Practitioner Family; Visit Provider Internal Medicine Endocrinology, Diabetes & Metabolism
DX: M80.00XA Age-related osteoporosis with current pathological fracture, unspecified site, initial encounter for fracture (principal); E03.9 Hypothyroidism, unspecified; E55.9 Vitamin D deficiency, unspecified; M84.48XA Pathological fracture, other site, initial encounter for fracture
CPT/HCPCS: 36415; 84443

== ENCOUNTER 2025-01-16 03:45 | Outpatient (CLI) | payer OTHER, SELFPAY ==
[2025-01-16 14:08] LABS: Anion Gap 9.1 mmol/L (3-11); BUN 16 mg/dL (7-18); CO2 28.9 mmol/L (21.0-32.0); Calcium 9.4 mg/dL (8.5-10.1); Chloride 99 mmol/L (98-107); Glucose 108 mg/dL (74-106); Potassium 3.9 mmol/L (3.5-5.1); Sodium 137 mmol/L (136-145); TSH (W/Ref FT4) 1.46 uIU/mL (0.36-3.74); Vitamin D 25 Total 54 ng/mL (30-100)
== END 2025-01-16 03:46 | disposition home or self-care (01) ==
PROVIDERS: PCP Nurse Practitioner Family; Visit Provider Internal Medicine Endocrinology, Diabetes & Metabolism
DX: M80.00XA Age-related osteoporosis with current pathological fracture, unspecified site, initial encounter for fracture (principal); E03.9 Hypothyroidism, unspecified; E55.9 Vitamin D deficiency, unspecified; D70.8 Other neutropenia; M84.48XA Pathological fracture, other site, initial encounter for fracture
CPT/HCPCS: 36415; 80048; 82306; 84443

== ENCOUNTER 2025-03-17 00:22 | Outpatient (CLI) | payer OTHER, SELFPAY ==
[2025-03-17 10:54] LABS: TSH (W/Ref FT4) 2.66 uIU/mL (0.55-4.78)
== END 2025-03-17 00:23 | disposition home or self-care (01) ==
PROVIDERS: PCP Nurse Practitioner Family; Visit Provider Internal Medicine Endocrinology, Diabetes & Metabolism
DX: E03.9 Hypothyroidism, unspecified (principal); E55.9 Vitamin D deficiency, unspecified; D70.8 Other neutropenia; M80.00XA Age-related osteoporosis with current pathological fracture, unspecified site, initial encounter for fracture
CPT/HCPCS: 36415; 84443